=== PATIENT | male | born 1940 | race Caucasian/White ===

== ENCOUNTER 2020-06-09 07:17 | Emergency (ER) | payer MEDICARE, SELFPAY ==
--- NOTE | 2020-06-09 07:30 | US_ITS ---
EXAMINATION: US VENOUS ULTRASOUND WITH DOPPLER LOWER EXTREMITY, LEFT CLINICAL INFORMATION: Pain and swelling left lower extremity. Assess for occult DVT COMPARISON: None TECHNIQUE: Ultrasound of the deep veins is performed from the hip to the calf with compression sonography and color and pulse Doppler assessment. Spectral analysis with color-flow imaging is performed. FINDINGS: There is normal venous compression and respiratory variation and augmented flow. The visualized common femoral vein, superficial femoral vein, profunda femoral vein, popliteal vein, and the trifurcation region shows no evidence of deep venous thrombosis. No popliteal fossa cyst demonstrated. IMPRESSION: No DVT demonstrated in the left lower extremity.
--- NOTE | 2020-06-09 07:30 | XR_ITS ---
EXAMINATION: XR TIBIA AND FIBULA, RIGHT CLINICAL INFORMATION: Painful bump on chin. COMPARISON: None TECHNIQUE: AP and lateral views of the right tibia and fibula were obtained. FINDINGS: There is no acute or healing fracture, dislocation, or destructive process. No focal bony exostosis or periostitis. Hoffa's fat pad appears normal. No knee joint compartment narrowing. There is benign calcification in region of proximal medial collateral ligament and also lesser calcifications in region of lateral collateral ligament which may be related to remote prior ligament injury (Brad Stieda). There is punctate calcification in region of distal patellar tendon. The deep infrapatellar recess is preserved. The visualized ankle and subtalar joints are unremarkable. There are atherosclerotic calcifications vasculature. No gas tracking in soft tissue planes. IMPRESSION: 1. No acute or healing fracture, destructive process, or periostitis. No gas tracking in soft tissues. 2. Benign calcifications in region of medial and lateral collateral ligaments which may be related to remote injury. Punctate calcification in region of distal patellar tendon. 3. Atherosclerotic calcifications vasculature.
--- NOTE | 2020-06-09 07:30 | ED.GENADULT ---
HPI - General Adult General Chief complaint: General Medical Stated complaint: leg lump Time Seen by Provider: 06/09/20 07:30 Source: patient Mode of arrival: ambulatory Limitations: no limitations History of Present Illness HPI narrative: 79 yo male on plavix - bumped leg on boat 3 weeks ago since then painful bump persists on LLE, RLE bump on anterior varela for months MD complaint: bump on left leg x 3 weeks Onset (ago): week(s) (3) Location: lower extremity Radiation: non-radiation Severity: mild Quality: aching Pain Consistency: constant Relieving factors: none Exacerbating factors: none Associated symptoms: denies other symptoms Treatments prior to arrival: none Related Data Allergies Allergy/AdvReac Type Severity Reaction Status Date / Time No Known Allergies Allergy Unverified 05/07/20 17:05 [No Known Allergies*] Review of Systems Review of Systems: Constitutional : No Fever, No Chills ENT/Mouth : No sore throat, No Rhinorrhea Eyes: No Eye Pain, No Swelling, No Redness Cardiovascular : No Chest Pain, No SOB, Respiratory : No Cough, No Sputum, No Wheezing Gastrointestinal : No Nausea, No Vomiting, No Diarrhea Genitourinary : No Dysuria, No Urinary Frequency, No Hematuria, Musculoskeletal : No joint pain, No Myalgias, No Joint Swelling Skin : positive Skin Lesions, No rash Neuro : No Weakness, No Numbness, No Dizziness, No Headache Psych : No Anxiety/Panic, No Depression All other systems reviewed and are negative PMFSH Past Medical History Medical History COPD (chronic obstructive pulmonary disease) HTN (hypertension) Hyperlipemia PVD (peripheral vascular disease) Social History Social History (Updated 06/09/20 @ 07:30 by Yari Guerrero DO) Smoking Status: Current every day smoker Use of substances other than those prescribed or required for medical reasons: No Advance Directives: No Advance Directives Information Provided: No Physical Exam Vital Signs: Vital Signs: Vital Signs Temp Pulse Resp BP Pulse Ox 06/09/20 07:36 98.7 F 79 18 156/79 H 96 Body Mass Index 28.3 Appearance: Alert. Oriented X3. No acute distress. Eyes: Pupils equal, round and reactive to light. ENT: Pharynx normal. Neck: Normal inspection. Neck supple. CVS: Normal heart rate and rhythm. Pulses normal. Respiratory: No respiratory distress. Breath sounds normal. Abdomen: Soft and nontender. Skin: Skin warm and dry. Normal skin color. Normal skin turgor. Extremities: No lower extremity edema. R anterior varela small 1 cm firm lesion noted proximal, L lateral leg anterior 2cm soft bump noted with no overlying signs of infection, distal NV intact Neuro: Oriented X 3. No motor deficit. No sensory deficit. Course Course Course Narrative: no acute findings, stable for DC will treat as hematoma and apply ivan wrap and refer to PCP Medical Decision Making MDM Narrative Medical decision making narrative: 79 yo male on plavix for PVD here with 3 weeks painful bump on left lateral calf s/p hitting it on boat - no signs of infection, small 2cm area noted - no erythema/warmth/drainage, distal NV intact, hard lesion as well on R anterior varela - xray ordered for R varela, US of LLE ordered for DVT Discharge Plan Discharge Clinical Impression: Hematoma Patient Disposition: Home, Self-Care Instructions: Hematoma (ED) Additional Instructions: apply ivan wrap to LLE x 1 week Referrals: Yamilet Kee NP [Primary Care Provider] - 2 days (if not better)
[2020-06-09 07:36] VITALS: BP 156/79; PULSE 79; RESP 18; TEMP 37.1; O2SAT 96; BMI 28.3
== END 2020-06-09 09:29 | disposition home or self-care (01) ==
PROVIDERS: Emergency Provider Emergency Medicine; PCP Nurse Practitioner
DX: S80.12XA Contusion of left lower leg, initial encounter (principal); M79.605 Pain in left leg; W22.8XXA Striking against or struck by other objects, initial encounter; I10 Essential (primary) hypertension; Y93.89 Activity, other specified; Y92.814 Boat as the place of occurrence of the external cause; Y99.9 Unspecified external cause status; Z79.01 Long term (current) use of anticoagulants; F17.200 Nicotine dependence, unspecified, uncomplicated
CPT/HCPCS: 73590; 93971; 99284

== ENCOUNTER 2020-10-05 13:51 | Outpatient (REF) | payer MEDICARE, SELFPAY ==
--- NOTE | ~2020-10-05 | US_ITS ---
EXAMINATION: ANKLE-BRACHIAL INDICES SINGLE LEVEL PULSE VOLUME RECORDING ARTERIAL DUPLEX BILATERAL LEGS CLINICAL INFORMATION: PVD. COMPARISON: None TECHNIQUE: Ankle-brachial indices and PVR at the ankle were obtained. Duplex Doppler of the bilateral lower extremity arterial systems was performed. FINDINGS: RIGHT: Ankle-brachial index: 1.22 PVR: Mildly abnormal. Common femoral: PSV 185 cm/s. Triphasic waveform. Deep femoral: PSV 153 cm/s. Biphasic waveform. Proximal superficial femoral: PSV 164 cm/s. Triphasic waveform. Mid superficial femoral: PSV 96 cm/s. Triphasic waveform. Distal superficial femoral: PSV 139 cm/s. Triphasic waveform. Popliteal: PSV 281 cm/s. Triphasic waveform. Moderate calcified plaque proximally. Posterior tibial artery: PSV 96 cm/s. Triphasic waveform. LEFT: Ankle-brachial index: 1.19 PVR: Mildly abnormal. Common femoral: PSV 135 cm/s. Triphasic waveform. Deep femoral: PSV 204 cm/s. Biphasic waveform. Proximal superficial femoral: PSV 92 cm/s. Triphasic waveform. Mid superficial femoral: PSV 119 cm/s. Triphasic waveform. Distal superficial femoral: PSV 131 cm/s. Triphasic waveform. Popliteal: PSV 115 cm/s. Triphasic waveform. Posterior tibial artery: PSV 110 cm/s. Triphasic waveform. US/US arterial duplex LE BI IMPRESSION: No evidence of hemodynamically significant peripheral arterial disease at rest with ankle-brachial indices 1.22 on the right and 1.19 on the left. The Doppler shows a moderate right proximal popliteal artery stenosis that appears well collateralized.
--- NOTE | ~2020-10-05 | US_ITS ---
EXAMINATION: ANKLE-BRACHIAL INDICES SINGLE LEVEL PULSE VOLUME RECORDING ARTERIAL DUPLEX BILATERAL LEGS CLINICAL INFORMATION: PVD. COMPARISON: None TECHNIQUE: Ankle-brachial indices and PVR at the ankle were obtained. Duplex Doppler of the bilateral lower extremity arterial systems was performed. FINDINGS: RIGHT: Ankle-brachial index: 1.22 PVR: Mildly abnormal. Common femoral: PSV 185 cm/s. Triphasic waveform. Deep femoral: PSV 153 cm/s. Biphasic waveform. Proximal superficial femoral: PSV 164 cm/s. Triphasic waveform. Mid superficial femoral: PSV 96 cm/s. Triphasic waveform. Distal superficial femoral: PSV 139 cm/s. Triphasic waveform. Popliteal: PSV 281 cm/s. Triphasic waveform. Moderate calcified plaque proximally. Posterior tibial artery: PSV 96 cm/s. Triphasic waveform. LEFT: Ankle-brachial index: 1.19 PVR: Mildly abnormal. Common femoral: PSV 135 cm/s. Triphasic waveform. Deep femoral: PSV 204 cm/s. Biphasic waveform. Proximal superficial femoral: PSV 92 cm/s. Triphasic waveform. Mid superficial femoral: PSV 119 cm/s. Triphasic waveform. Distal superficial femoral: PSV 131 cm/s. Triphasic waveform. Popliteal: PSV 115 cm/s. Triphasic waveform. Posterior tibial artery: PSV 110 cm/s. Triphasic waveform. US/US ALFONSO complete IMPRESSION: No evidence of hemodynamically significant peripheral arterial disease at rest with ankle-brachial indices 1.22 on the right and 1.19 on the left. The Doppler shows a moderate right proximal popliteal artery stenosis that appears well collateralized.
== END 2020-10-05 13:52 | disposition home or self-care (01) ==
LOC: HO.US 13:51
PROVIDERS: Visit Provider Surgery Vascular Surgery
DX: I73.9 Peripheral vascular disease, unspecified (principal)
CPT/HCPCS: 93923; 93925

== ENCOUNTER 2020-11-25 07:54 | Outpatient (REF) | payer MEDICARE, SELFPAY ==
--- NOTE | ~2020-11-25 | XR_ITS ---
EXAMINATION: XR BILATERAL HIPS WITH AP PELVIS CLINICAL INFORMATION: Acute lower back pain and hip pain. COMPARISON: None TECHNIQUE: AP and frog-leg lateral views of each hip and an AP view of the pelvis. FINDINGS: There are bilateral total hip arthroplasties. The femoral head components articulate appropriately with the acetabular components. There is some ossification without full bridging seen between the left femoral intertrochanteric and the superior acetabular margin. The pelvic rim is intact. Partial fusion across the sacroiliac joints with sclerosis. The pubic symphysis is well aligned. Surgical clips overlie the pelvis. Evidence of prior hernia repair of the ventral abdomen. 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 Partial fusion of the sacroiliac joints.
--- NOTE | ~2020-11-25 | XR_ITS ---
EXAMINATION: XR LUMBOSACRAL SPINE CLINICAL INFORMATION: Acute lower back pain. COMPARISON: None TECHNIQUE: Three views of the lumbosacral spine. FINDINGS: Scoliotic curvature of the spine. No acute fracture or subluxation. Grade 1 retrolisthesis of L1 on L2, L2 on L3, and L3 on L4. Diffuse disc space narrowing with endplate sclerosis and osteophyte formation. Mild facet arthropathy. The bowel gas pattern is unremarkable. XR/XR lumbar spine 2-3V IMPRESSION: Moderate degenerative changes of the lumbar spine.
== END 2020-11-25 07:55 | disposition home or self-care (01) ==
LOC: HO.XRAY 07:54
PROVIDERS: PCP Nurse Practitioner; Visit Provider Nurse Practitioner
DX: M54.5 Low back pain (principal); M25.552 Pain in left hip; M25.551 Pain in right hip
CPT/HCPCS: 72100; 73522

== ENCOUNTER → 2021-03-18 11:29 | Outpatient (BNVA) | payer MEDICARE, SELFPAY | PROVIDERS: PCP Internal Medicine; Visit Provider Surgery Vascular Surgery | DX: I73.9 Peripheral vascular disease, unspecified (principal) | CPT/HCPCS: 99212 ==

== ENCOUNTER 2021-03-26 07:42 | Outpatient (REF) | payer MEDICARE, SELFPAY ==
[2021-03-26 08:33] LABS: Hematocrit 38.2 % (42-52); Mean Corpuscular HGB Conc 36.6 g/dl (31.0-36.0); Mean Corpuscular Hemoglobin 30.8 pg (27.0-33.0); Platelet Count 205 X10*3/uL (160-400); Red Blood Count 4.55 X10*6/uL (4.60-5.80); Red Cell Distribution Width 12.3 % (11.0-16.0); White Blood Count 5.6 X10*3/uL (4.8-10.8)
[2021-03-26 08:37] LABS: Glucose Urine UA NEG (NEG); Leukocyte Esterase Urine NEG (NEG); Nitrite Urine NEG (NEG); Urine Blood NEG (NEG); Urine Ketones NEG (NEG); Urine Protein TRACE MG/DL (NEG-TRACE)
[2021-03-26 08:38] LABS: Appearance Urine CLEAR; Color Urine YELLOW
[2021-03-26 09:00] LABS: Alanine Aminotransferase 30 U/L (0-40); Albumin Level 4.4 g/dL (3.5-5.0); Alkaline Phosphatase 83 U/L (39-117); Anion Gap 14 (12-20); Aspartate Amino Transferase 22 U/L (5-37); Bilirubin Direct 0.5 mg/dL (0.0-0.5); Bilirubin Total 1.3 mg/dL (0.0-1.0); Blood Urea Nitrogen 10 mg/dL (9-16); Calcium 9.7 mg/dL (8.4-10.2); Carbon Dioxide 24 mmol/L (22-29); Chloride 99 mmol/L (96-108); Cholesterol 158 mg/dL; Estimated Glomerular Filt Rate > 60; Glucose Random 152 mg/dL (60-115); HDL Cholesterol 48 mg/dL; LDL Cholesterol Calculated 75 mg/dl; Potassium 4.1 mmol/L (3.3-5.1); Sodium 133 mmol/L (135-145); Total Protein 7.2 g/dL (6.5-8.0); Triglycerides 179 mg/dL
[2021-03-26 09:26] LABS: Prostate Specific Antigen Scr < 0.05 ng/mL (<0.05-4.0); Thyroid Stimulating Hormone 2.38 uIU/mL (0.32-4.0)
== END 2021-03-26 07:43 | disposition home or self-care (01) ==
LOC: HO.LAB 07:42
PROVIDERS: PCP Internal Medicine; Visit Provider Internal Medicine
DX: Z12.5 Encounter for screening for malignant neoplasm of prostate (principal); C61 Malignant neoplasm of prostate; I10 Essential (primary) hypertension
CPT/HCPCS: 36415; 80048; 80061; 80076; 81003; 84153; 84443; 85027

== ENCOUNTER 2021-11-20 09:57 | Inpatient (IN) | payer OTHER, SELFPAY ==
[2021-11-20] VITALS (9 sets, daily range): BP systolic 122–175; BP diastolic 69–75; PULSE 75–90; RESP 12–22; TEMP 36.6; O2SAT 91–99; BMI 29.1; BMI 27.6
--- NOTE | ~2021-11-20 | CT_ITS ---
EXAMINATION: CT ANGIOGRAM OF THE HEAD CT ANGIOGRAM OF THE NECK CLINICAL INFORMATION: Left facial weakness, left lower extremity tingling. COMPARISON: Concurrent CT scan of the head 11/20/2021. TECHNIQUE: Test bolus series followed by intravenous administration 70 mL of Omnipaque 350. Helical imaging was performed in the axial plane from the mediastinum to the skull vertex. A delayed CT scan of the head was obtained. The degree of stenosis is based off NASCET criteria. The data was processed at the manufacturing technologist workstation for generation of MIP images. Three-dimensional volume rendered reformatted images were also generated at an offline 3-D workstation. This CT examination was performed using dose optimization techniques as appropriate, variously including the following: *Automated exposure control *Adjustment of mA and/or kV according to patient size (this includes techniques or standardized protocols for targeted exams where dose is matched to indication/reason for exam; i.e. extremities or head) *Use of iterative reconstruction technique DLP: 1626 mGy-cm. FINDINGS: CT Head: There is no evidence of acute intracranial hemorrhage or territorial infarction. No abnormal mass-effect or midline shift is seen. Yu to white matter differentiation is well preserved. No extra-axial fluid collections are identified. There is no abnormal enhancement. There is mild commensurate prominence of the ventricles and sulci consistent with diffuse volume loss. There are mild chronic microvascular ischemic changes. There have been bilateral lens extractions. There are severe degenerative changes of the right temporomandibular joint. There is mucoperiosteal thickening of the bilateral maxillary sinuses, bilateral ethmoid air cells and the left frontal sinus. Plate and screws are noted along the left anterior maxilla. There are no acute osseous findings. The mastoid air cells are well-aerated. CTA Neck: There is a classic configuration of the aortic arch. There are atheromatous calcifications of the aortic arch, and at the origins of the great vessels of the neck. There is approximately 50% stenosis at the origin of the left subclavian artery. There are moderate atheromatous calcifications at the right subclavian artery. There are atheromatous calcifications around the left common carotid artery. There are no significant atheromatous calcifications of the carotid bifurcations. The cervical internal carotid arteries are patent bilaterally. The origins of the vertebral arteries are well-demonstrated bilaterally. There are atheromatous calcifications at the origin of the right vertebral artery. There are also calcifications around the cervical right vertebral artery. The right vertebral artery is dominant. Both vertebral arteries are patent throughout their cervical course extending intradurally. Nonvascular: The visualized lung apices are well-aerated. The thyroid gland appears normal. There is no cervical lymphadenopathy. There is mild increased attenuation and soft tissue fullness in the subcutaneous fat in the left submandibular region. There are moderate spondylitic and facet arthropathic changes in the cervical spine. There is a moderate degenerative anterolisthesis of C7 on T1. CTA Head: There are atheromatous calcifications of the cavernous and paraclinoid internal carotid arteries bilaterally, but the vessels are patent. The middle and anterior cerebral arteries bilaterally demonstrate normal caliber with no evidence of focal stenosis, aneurysm or vascular malformation. There is normal arborization of the middle cerebral artery branches. The anterior communicating artery is normal. In the posterior circulation, the right vertebral artery is dominant. There are mild atheromatous calcifications of the proximal and distal intradural right vertebral artery. The left vertebral artery ends primarily in the PICA. The basilar artery and the posterior cerebral arteries are patent. The venous sinuses opacify normally. CT/CT angio head neck stroke IMPRESSION: 1. There are no acute bleeds or territorial infarcts. There are no masses or areas of abnormal enhancement. 2. There is diffuse loss with chronic microvascular ischemic changes. 3. There is relatively extensive paranasal sinus disease. There is some soft tissue fullness with increased attenuation in the subcutaneous fat in the left submandibular region; correlate clinically. 4. There are atherosclerotic calcifications of the aortic arch and great vessels of the neck, without significant flow-limiting stenosis. 5. Intracranially there are no focal stenoses, aneurysms or vascular malformations. This critical result was discussed with Dr. Guerrero by telephone on 11/20/2021 at 12:49 PM and it was ascertained that the content and urgency of the report was understood at the time of direct communication.
--- NOTE | ~2021-11-20 | XR_ITS ---
EXAMINATION: XR CHEST CLINICAL INFORMATION: Left-sided weakness COMPARISON: None TECHNIQUE: Frontal view of the chest was obtained. FINDINGS: Cardiac silhouette is normal in size. Atherosclerotic disease of the aortic arch. The lungs are mildly hypoinflated. There is no lobar consolidation. No pleural effusion or pneumothorax. Small lobulated density within the lateral right upper/mid lung is nonspecific but possibly a cluster of granulomas. XR/XR chest 1V IMPRESSION: No acute pulmonary pathology.
--- NOTE | ~2021-11-20 | CT_ITS ---
EXAMINATION: CT HEAD WITHOUT CONTRAST (STROKE PROTOCOL) CLINICAL INFORMATION: Stroke protocol. Left facial droop COMPARISON: None TECHNIQUE: Contiguous axial imaging was performed from the skull base to vertex without intravenous administration of contrast. This CT examination was performed using dose optimization techniques as appropriate, variously including the following: *Automated exposure control *Adjustment of mA and/or kV according to patient size (this includes techniques or standardized protocols for targeted exams where dose is matched to indication/reason for exam; i.e. extremities or head) *Use of iterative reconstruction technique DLP: 781 mGy-cm FINDINGS: No intra-axial or extra-axial hemorrhage. No acute territorial infarct. Mild chronic small vessel ischemic disease of the periventricular white matter. Preservation of valente-white matter differentiation. No mass, mass effect, or midline shift. No fracture. Fracture fixation of the anterior left maxillary sinus which is nearly completely opacified. Partial opacification of the left ethmoid air cells and mucosal thickening of the right maxillary sinus. The mastoid air cells and visualized paranasal sinuses are otherwise clear. This critical result was discussed with FABI Guidry at 10:52 AM on 11/20/2021 and it was ascertained that the content and urgency of the report was understood at the time of direct communication. CT/CT head for stroke IMPRESSION: No acute intracranial pathology.
--- NOTE | 2021-11-20 10:23 | ECG_ITS ---
Test Reason : DIZZINESS Blood Pressure : / mmHG Vent. Rate : 073 BPM Atrial Rate : 073 BPM P-R Int : 244 ms QRS Dur : 092 ms QT Int : 392 ms P-R-T Axes : 023 007 031 degrees QTc Int : 431 ms Sinus rhythm with 1st degree A-V block Nonspecific T wave abnormality Abnormal ECG No previous ECGs available Referred By: Cee Dallas Electronically Signed By:BRETT BURKETT
--- NOTE | 2021-11-20 10:30 | ED_ITS ---
HPI - Neuro Symptoms/Deficit General Chief Complaint: Neuro Symptoms/Deficit Stated Complaint: facial swelling Time Seen by Provider: 11/20/21 10:13 Source: patient and family (Son at bedside) Mode of arrival: ambulatory Limitations: no limitations History of Present Illness HPI Narrative: 81-year-old male with a past medical history type 2 diabetes, hypertension, hyperlipidemia who had a DVT in the right lower extremity currently on Plavix last took this morning, COPD, prostate cancer in PVD presenting to the ED with son at bedside with complaints of left-sided cheek/chin swelling/droop that the son noticed that 9-930 a.m. this morning when he was having coffee with his father. Although he is unsure when this actually started and the patient is a poor historian he is unsure when this actually started as well. Son reports that his father has been suffering from memory issues for the past few weeks to months. Although patient reports when he woke up this morning he cannot confirm what time he woke up although when he woke up this morning he has some left leg tingling he reports. He reports that he has also been suffering from intermittent dizziness over the past few weeks to months it is not worse today per the patient. Although he is reporting some nausea that started today. His son reports that the patient lives with his girlfriend. Son reports that he did speak to the father last night although over the phone he did not see him. He reports that if the girlfriend with a seen the facial swelling/droop last night then he believes he would been told that he is not certain when this actually started. He denies any recent falls, head trauma, headaches, neck pain/stiffness, changes in vision, changes in speech, weakness the any extremities, rashes, palpitations, chest pain, shortness of breath, dyspnea on exertion, orthopnea, vomiting, diarrhea, constipation, abdominal pain, recent travel or sick contacts or any other symptoms complaints or concerns at this time. Onset (ago): unknown Timing confirmed by: family member (Son at bedside) Location: left face and left leg History of same: No Severity: mild Quality: tingling and constant Relieving factors: none Exacerbating factors: none Context: other (Patient uncertain when this actually started) Related Data Home Medications Medication Instructions Recorded Confirmed aspirin 81 mg tablet,delayed 81 mg PO DAILY 03/16/21 11/20/21 release (Adult Low Dose Aspirin) atorvastatin 20 mg tablet 20 mg PO DAILY tab 03/16/21 11/20/21 umeclidinium 62.5 mcg-vilanterol 1 inh PO DAILY 03/16/21 11/20/21 25 mcg/actuation powdr for inhalation amlodipine 10 mg tablet 10 mg PO BEDTIME 11/20/21 11/20/21 citalopram 20 mg tablet 40 mg PO BEDTIME 11/20/21 11/20/21 lisinopril 20 1 tab PO DAILY 11/20/21 11/20/21 mg-hydrochlorothiazide 25 mg tablet Previous Rx's Medication Instructions Recorded pantoprazole 40 mg tablet,delayed 40 mg PO DAILY #90 tab 06/22/21 release trazodone 100 mg tablet 100 mg PO BEDTIME #90 tab 08/24/21 clopidogrel 75 mg tablet 75 mg PO DAILY #90 tab 09/12/21 Allergies Allergy/AdvReac Type Severity Reaction Status Date / Time No Known Allergies Allergy Verified 07/01/21 08:17 [No Known Allergies*] Review of Systems Review of Systems: Constitutional : No Fever, No Chills, No Night Sweats, No Fatigue, No Malaise ENT/Mouth : No Ear Pain, No Nasal Congestion, No Sinus Pain, No sore throat, No Rhinorrhea Eyes: No Eye Pain, No Swelling, No Redness, No Foreign Body, No Discharge, No Vision Changes Cardiovascular : No Chest Pain, No SOB, No Dyspnea on Exertion, No Orthopnea, No Palpitations Respiratory : No Cough, No Sputum, No Wheezing, No Dyspnea Gastrointestinal : + Nausea, No Vomiting, No Diarrhea, No Constipation, No abdom inal Pain, No Hematochezia, No Melena Genitourinary : No Dysuria, No Urinary Frequency, No Urinary Incontinence, No Urgency, No Flank Pain Musculoskeletal : No joint pain, No Myalgias Skin : No lacerations Neuro : + left lowewr leg tingling, + left sided facial weakness, + Dizziness, No Loss of Consciousness, No Headache Yes all other systems are reviewed and are negative [facility] Past Medical History Attestation statement: The following information was validated with the patient. Medical History COPD (chronic obstructive pulmonary disease) Essential hypertension HTN (hypertension) Hyperlipemia Prostate cancer PVD (peripheral vascular disease) Type 2 diabetes mellitus without complications Surgical History History of cataract surgery History of facial surgery History of hernia surgery History of hip replacement History of inguinal hernia repair History of knee surgery Family History Family History Mother No problems noted. Father No problems noted. Social History Social History Housing: Apartment Alcohol intake: never Patient Tobacco Use Status: Current everyday Tobacco user Tobacco use type: Cigarette Cigarette Packs Per Day: 0.5 Cigarettes Per Day: 10 e-Cigarette/Vaping Use: Never Used Use of substances other than those prescribed or required for medical reasons: No Advance Directives: Yes Advance Directives Information Provided: Yes Advance Directives on File: No service: Yes ( [email or web address]) Current occupational status: retired Physical Exam Vital Signs: Vital Signs: Last Vital Signs Temp 97.9 F 11/20/21 10:03 Pulse 75 11/20/21 15:47 Resp 22 H 11/20/21 11:12 BP 172/75 H 11/20/21 15:47 Pulse Ox 97 11/20/21 15:47 BMI result Body Mass Index 29.1 Vital signs have been reviewed as normal and appeared to be correct. Blood pressure 175/75. Heart rate normal. Respiration rate normal. Temperature normal. Oxygen saturation normal. Appearance: Alert. Oriented X3. No acute distress. Head: Normal external exam. Normocephalic. Atraumatic. Able to rotate head bilaterally. Eyes: PERRLA. EOMI. No nystagmus noted. Conjunctiva and sclera normal. Eyelids normal. Corneal reflex normal. ENT: EAC normal. TM's Normal. Hearing normal. Pharynx normal. Uvula midline. tongue midline. Moist mucous membranes. No trismus noted. No drooling noted. No muffled voice noted. No nystagmus noted. Neck: Normal inspection. Neck supple. FROM. No adenopathy. Trachea midline. Thyroid Normal. No meningeal signs. No neck mass noted. CVS: Normal heart rate and rhythm. Heart sound normal. No murmurs noted. Pulses normal throughout. Respiratory: No respiratory distress. Painless inspiration. Breath sounds normal. No wheezes/rales/rhonchi noted. Chest nontender. No accessory muscle usage noted or decreased air movement noted. Abdomen: Soft and nontender. Bowel sounds normal in all 4 quadrants. No distention noted. No organomegaly noted. No visible injury noted. Back: No CVA tenderness. Full range of motion noted. Skin: Skin warm and dry. Normal skin color. Normal skin turgor. No rashe s/lesions/lacerations noted. Extremities: No lower extremity edema. Extremities exhibit normal range of motion. Extremities nontender. Able to shrug shoulders bilaterally and keep up against resistance. Neuro: Oriented X 3. 4/5 for motor to left upper and left lower extremity. No sensory deficit. Reflexes normal. Moving all extremities. left sided facial droop and mild sts swelling to left maxillary/mandible area NO lip swelling noted. Otherwise the rest of the Cranial nerves II-XI intact bilaterally. Normal cognition. Speech normal. Gait normal. No pronator drift. Patient noted to have a mild tremor to b/l hands tremor noted. No fasciculations noted. No rigidity noted. Muscle tone normal throughout. No asterixis noted. [id number] test normal. Heel to varela test normal. Tandem gait normal. Does not sway with eyes open. Romberg test negative. Rapid alternating movement upper extremity normal. Rapid alternating movement lower extremity normal. Hand drop from overhead Misses face. NIHSS score 3. Course Course Course Narrative: 10:25am - 81-year-old male with a past medical history type 2 diabetes, hypertension, hyperlipidemia who had a DVT in the right lower extremity currently on Plavix last took this morning, COPD, prostate cancer in PVD presenting to the ED with son at bedside with complaints of left-sided cheek/chin swelling/droop that the son noticed that 9-930 a.m. this morning when he was having coffee with his father. Although he is unsure when this actually started and the patient is a poor historian he is unsure when this actually started as well. Son reports that his father has been suffering from memory issues for the past few weeks to months. Although patient reports when he woke up this morning he cannot confirm what time he woke up although when he woke up this morning he has some left leg tingling he reports. He reports that he has also been suffering from intermittent dizziness over the past few weeks to months it is not worse today p er the patient. Although he is reporting some nausea that started today. His son reports that the patient lives with his girlfriend. Son reports that he did speak to the father last night although over the phone he did not see him. He reports that if the girlfriend with a seen the facial swelling/droop last night then he believes he would been told that he is not certain when this actually started. On exam patient is alert and orientated x3. Not in any acute distress. He does have some mild left-sided facial drooping. And 4/5 for motor of left upper extremity and left lower extremity. He reports tingling sensation to the left lower extremity although normal sensation on all 4 extremities. Otherwise no other focal weakness is noted. He has a normal steady gait. He was able to u ndress himself completely in the room by himself without any help. No other disabling symptoms. NIH SS score 3. He took Plavix this morning. We do not know the onset of time and patient is a very poor historian and son cannot tell us and actual time either therefore he is not a candidate for tPA at this time. Plan: Stroke protocol including labs, CT scan of brain without contrast, CT of head and neck with contrast and re-evaluate. Reevaluation(s) Reevaluation #1: - I was called from [facility] and they reported that the CT scan of the brain without contrast is negative at this time. Awaiting CTA of head and neck. - labs reviewed patient with mild baseline anemia. Otherwise troponin is negative PT INR within a normal range. Sodium 127 although patient has been low in the past he is on 2-3 medications that could possibly cause hyponatremia. Random glucose 132. ALT 41. Otherwise all other labs are within normal limits. Time: 10:51 Reevaluation #2: - CT angio of head and neck revealed chronic changes no acute bleeds there are no masses or any other acute processes everything appeared chronic. 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 - when I went back to evaluate the patient his son noticed that he had some upper lip swelling that was not present when he arrived here he only had soft tissue swelling to the left maxillary/chin area there was no swelling near any upper or lower lips therefore he is developing some angioedema from possibly the IV contrast that was given therefore we are going to medicate him with 50 mg of Benadryl, 125 mg of IV Solu-Medrol and Pepcid IV and plan to admit for left- sided weakness and hyponatremia. Speaking to Dr. Gupta at this time. Time: 13:09 [facility] - Neuro Symptoms/Deficit Medical Records Attestation: I reviewed the patient's medical records. Lab Data Attestation: I reviewed the patient's lab results. Result diagrams: 11/20/21 10:25 11/20/21 10:25 Labs: Lab Results 11/20/21 11/20/21 11/20/21 Range/Units 10:25 10:25 10:25 WBC 7.0 (4.8-10.8) X10*3/uL RBC 4.50 L (4.60-5.80) X10*6/uL Hgb 13.6 L (14.0-18.0) g/dl Hct 37.1 L (42.0-52.0) % MCV 82.4 (80.0-98.0) fL MCH 30.2 (27.0-33.0) pg MCHC 36.7 H (31.0-36.0) g/dl RDW 12.1 (11.0-16.0) % Plt Count 216 (160-400) X10*3/uL MPV 8.8 L (9.4-12.4) fL Immature Gran % (Auto) 0.9 H (0.0-0.4) % Neut % (Auto) 67.9 (45-73) % Lymph % (Auto) 18.6 L (20-40) % Esmeralda % (Auto) 9.8 (2-11) % Eos % (Auto) 1.7 (0-4) % Baso % (Auto) 1.1 (0-2) % Lymph # (Auto) 1.3 (1.2-4.9) X10*3/uL Esmeralda # (Auto) 0.7 (0.1-1.2) X10*3/uL Eos # (Auto) 0.1 (0.0-0.4) X10*3/uL Baso # (Auto) 0.1 (0.0-0.2) X10*3/uL Abs Immat Gran (auto) 0.06 H (0.00-0.03) X10*3/uL Absolute Neuts (auto) 4.8 (2.0-8.3) x10*3/uL Absolute Nucleated RBC 0.000 (0.0-0.012) X10*3/uL Nucleated RBC % (auto) 0.0 (0.0-0.2) /100WBC PT 10.8 (9.9-13.0) SEC INR 1.0 (0.9-1.1) APTT 31.1 (24.1-38.0) SEC Sodium 127 L (135-145) mmol/L Potassium 4.0 (3.3-5.1) mmol/L Chloride 92 L (96-108) mmol/L Carbon Dioxide 23 (22-29) mmol/L Anion Gap 16 (12-20) BUN 10 (9-16) mg/dL Creatinine 0.85 (0.5-1.4) mg/dL Estim Creat Clear Calc 60.6 Estimated GFR > 60 POC Glucose (60-115) mg/dL Random Glucose 147 H (60-115) mg/dL Calcium 9.7 (8.4-10.2) mg/dL Magnesium 1.6 (1.6-2.6) mg/dL Total Bilirubin 1.0 (0.0-1.0) mg/dL Direct Bilirubin 0.4 (0.0-0.5) mg/dL AST 29 (5-37) U/L ALT 41 H (0-40) U/L Alkaline Phosphatase 86 (39-117) U/L Troponin I High Sens (<3.5-35.0) ng/L Total Protein 7.6 (6.5-8.0) g/dL Albumin 4.6 (3.5-5.0) g/dL Hold Red Top COVID-19 ([facility]) (Negative) COVID-19 Clin Com 11/20/21 11/20/21 11/20/21 Range/Units 10:25 10:26 10:53 WBC (4.8-10.8) X10*3/uL RBC (4.60-5.80) X10*6/uL Hgb (14.0-18.0) g/dl Hct (42.0-52.0) % MCV (80.0-98.0) fL MCH (27.0-33.0) pg MCHC (31.0-36.0) g/dl RDW (11.0-16.0) % Plt Count (160-400) X10*3/uL MPV (9.4-12.4) fL Immature Gran % (Auto) (0.0-0.4) % Neut % (Auto) (45-73) % Lymph % (Auto) (20-40) % Esmeralda % (Auto) (2-11) % Eos % (Auto) (0-4) % Baso % (Auto) (0-2) % Lymph # (Auto) (1.2-4.9) X10*3/uL Esmeralda # (Auto) (0.1-1.2) X10*3/uL Eos # (Auto) (0.0-0.4) X10*3/uL Baso # (Auto) (0.0-0.2) X10*3/uL Abs Immat Gran (auto) (0.00-0.03) X10*3/uL Absolute Neuts (auto) (2.0-8.3) x10*3/uL Absolute Nucleated RBC (0.0-0.012) X10*3/uL Nucleated RBC % (auto) (0.0-0.2) /100WBC PT (9.9-13.0) SEC INR (0.9-1.1) APTT (24.1-38.0) SEC Sodium (135-145) mmol/L Potassium (3.3-5.1) mmol/L Chloride (96-108) mmol/L Carbon Dioxide (22-29) mmol/L Anion Gap (12-20) BUN (9-16) mg/dL Creatinine (0.5-1.4) mg/dL Estim Creat Clear Calc Estimated GFR POC Glucose 132 H (60-115) mg/dL Random Glucose (60-115) mg/dL Calcium (8.4-10.2) mg/dL Magnesium (1.6-2.6) mg/dL Total Bilirubin (0.0-1.0) mg/dL Direct Bilirubin (0.0-0.5) mg/dL AST (5-37) U/L ALT (0-40) U/L Alkaline Phosphatase (39-117) U/L Troponin I High Sens < 3.5 (<3.5-35.0) ng/L Total Protein (6.5-8.0) g/dL Albumin (3.5-5.0) g/dL Hold Red Top See Note COVID-19 ([facility]) (Negative) COVID-19 Clin Com 11/20/21 Range/Units 11:11 WBC (4.8-10.8) X10*3/uL RBC (4.60-5.80) X10*6/uL Hgb (14.0-18.0) g/dl Hct (42.0-52.0) % MCV (80.0-98.0) fL MCH (27.0-33.0) pg MCHC (31.0-36.0) g/dl RDW (11.0-16.0) % Plt Count (160-400) X10*3/uL MPV (9.4-12.4) fL Immature Gran % (Auto) (0.0-0.4) % Neut % (Auto) (45-73) % Lymph % (Auto) (20-40) % Esmeralda % (Auto) (2-11) % Eos % (Auto) (0-4) % Baso % (Auto) (0-2) % Lymph # (Auto) (1.2-4.9) X10*3/uL Esmeralda # (Auto) (0.1-1.2) X10*3/uL Eos # (Auto) (0.0-0.4) X10*3/uL Baso # (Auto) (0.0-0.2) X10*3/uL Abs Immat Gran (auto) (0.00-0.03) X10*3/uL Absolute Neuts (auto) (2.0-8.3) x10*3/uL Absolute Nucleated RBC (0.0-0.012) X10*3/uL Nucleated RBC % (auto) (0.0-0.2) /100WBC PT (9.9-13.0) SEC INR (0.9-1.1) APTT (24.1-38.0) SEC Sodium (135-145) mmol/L Potassium (3.3-5.1) mmol/L Chloride (96-108) mmol/L Carbon Dioxide (22-29) mmol/L Anion Gap (12-20) BUN (9-16) mg/dL Creatinine (0.5-1.4) mg/dL Estim Creat Clear Calc Estimated GFR POC Glucose (60-115) mg/dL Random Glucose (60-115) mg/dL Calcium (8.4-10.2) mg/dL Magnesium (1.6-2.6) mg/dL Total Bilirubin (0.0-1.0) mg/dL Direct Bilirubin (0.0-0.5) mg/dL AST (5-37) U/L ALT (0-40) U/L Alkaline Phosphatase (39-117) U/L Troponin I High Sens (<3.5-35.0) ng/L Total Protein (6.5-8.0) g/dL Albumin (3.5-5.0) g/dL Hold Red Top COVID-19 ([facility]IA) Negative (Negative) COVID-19 Clin Com See Note Imaging Data CT scan of brain without contrast: Attestation: I personally reviewed and interpreted this imaging study as follows: Radiologist's impression: FINDINGS: No intra-axial or extra-axial hemorrhage. No acute territorial infarct. Mild chronic small vessel ischemic disease of the periventricular white matter. Preservation of yu-white matter differentiation. No mass, mass effect, or midline shift. No fracture. Fracture fixation of the anterior left maxillary sinus which is nearly completely opacified. Partial opacification of the left ethmoid air cells and mucosal thickening of the right maxillary sinus. The mastoid air cells and visualized paranasal sinuses are otherwise clear. This critical result was discussed with FABI Guidry at 10:52 AM on 11/20/2021 and it was ascertained that the content and urgency of the report was understood at the time of direct communication. ? CT/CT head for stroke IMPRESSION: No acute intracranial pathology. ? CTA of head and neck: Attestation: I personally reviewed and interpreted this imaging study as follows: Radiologist's impression: FINDINGS: CT Head: There is no evidence of acute intracranial hemorrhage or territorial infarction. No abnormal mass-effect or midline shift is seen. Yu to white matter differentiation is well preserved. No extra-axial fluid collections are identified. There is no abnormal enhancement. There is mild commensurate prominence of the ventricles and sulci consistent with diffuse volume loss. There are mild chronic microvascular ischemic changes. There have been bilateral lens extractions. There are severe degenerative changes of the right temporomandibular joint. There is mucoperiosteal thickening of the bilateral maxillary sinuses, bilateral ethmoid air cells and the left frontal sinus. Plate and screws are noted along the left anterior maxilla. There are no acute osseous findings. The mastoid air cells are well-aerated. CTA Neck: There is a classic configuration of the aortic arch. There are atheromatous calcifications of the aortic arch, and at the origins of the great vessels of the neck. There is approximately 50% stenosis at the origin of the left subclavian artery. There are moderate atheromatous calcifications at the right subclavian artery. There are atheromatous calcifications around the left common carotid artery. There are no significant atheromatous calcifications of the carotid bifurcations. The cervical internal carotid arteries are patent bilaterally. The origins of the vertebral arteries are well-demonstrated bilaterally. There are atheromatous calcifications at the origin of the right vertebral artery. There are also calcifications around the cervical right vertebral artery. The right vertebral artery is dominant. Both vertebral arteries are patent throughout their cervical course extending intradurally. Nonvascular: The visualized lung apices are well-aerated. The thyroid gland appears normal. There is no cervical lymphadenopathy. There is mild increased attenuation and soft tissue fullness in the subcutaneous fat in the left submandibular region. There are moderate spondylitic and facet arthropathic changes in the cervical spine. There is a moderate degenerative anterolisthesis of C7 on T1. CTA Head: There are atheromatous calcifications of the cavernous and paraclinoid internal carotid arteries bilaterally, but the vessels are patent. The middle and anterior cerebral arteries bilaterally demonstrate normal caliber with no evidence of focal stenosis, aneurysm or vascular malformation. There is normal arborization of the middle cerebral artery branches. The anterior communicating artery is normal. In the posterior circulation, the right vertebral artery is dominant. There are mild atheromatous calcifications of the proximal and distal intradural right vertebral artery. The left vertebral artery ends primarily in the PICA. The basilar artery and the posterior cerebral arteries are patent. The venous sinuses opacify normally. CT/CT angio head? neck stroke IMPRESSION: 1. There are no acute bleeds or territorial infarcts. There are no masses or areas of abnormal enhancement. ? 2. There is diffuse loss with chronic microvascular ischemic changes. ? 3. There is relatively extensive paranasal sinus disease. There is some soft tissue fullness with increased attenuation in the subcutaneous fat in the left submandibular region; correlate clinically. ? 4. There are atherosclerotic calcifications of the aortic arch and great vessels of the neck, without significant flow-limiting stenosis. ? 5. Intracranially there are no focal stenoses, aneurysms or vascular malformations. ? This critical result was discussed with Dr. Guerrero by telephone on 11/20/2021 at 12:49 PM and it was ascertained that the content and urgency of the report was understood at the time of direct communication. ECG Data Attestation: I personally reviewed and interpreted this ECG as follows: ECG interpretation date: 11/20/21 ECG interpretation time: 10:28 Interpretation: Sinus rhythm with first-degree AV block with ventricular rate of 73 with nonspecific T-wave abnormalities no acute ischemic changes are noted. No prior EKGs to compare to at this time. Critical Care Time Critical Care Time Critical Care Time: Yes Total Critical Care Time: 60 Attestation: I personally attest to this time spent taking care of the patient Discharge Plan Discharge Clinical Impression: Acute left-sided weakness, Acute hyponatremia, Angioedema of lips, Allergic reaction to contrast dye Patient Disposition: Admitted As Inpatient
[2021-11-20 10:31] LABS: MANUAL DIFF FLAG NO
[2021-11-20 10:33] LABS: Basophils Absolute Auto 0.1 X10*3/uL (0.0-0.2); Basophils Percent Auto 1.1 % (0-2); Eosinophils Absolute Auto 0.1 X10*3/uL (0.0-0.4); Eosinophils Percent Auto 1.7 % (0-4); Hematocrit 37.1 % (42.0-52.0); Hemoglobin 13.6 g/dl (14.0-18.0); Imm Gran Abs Auto 0.06 X10*3/uL (0.00-0.03); Imm Gran Pct Auto 0.9 % (0.0-0.4); Lymphocytes Absolute Auto 1.3 X10*3/uL (1.2-4.9); Lymphocytes Percent Auto 18.6 % (20-40); Mean Corpuscular HGB Conc 36.7 g/dl (31.0-36.0); Mean Corpuscular Hemoglobin 30.2 pg (27.0-33.0); Mean Corpuscular Volume 82.4 fL (80.0-98.0); Mean Platelet Volume 8.8 fL (9.4-12.4); Monocytes Absolute Auto 0.7 X10*3/uL (0.1-1.2); Monocytes Percent Auto 9.8 % (2-11); Neutrophils Absolute Auto 4.8 x10*3/uL (2.0-8.3); Neutrophils Percent Auto 67.9 % (45-73); Platelet Count 216 X10*3/uL (160-400); Red Cell Distribution Width 12.1 % (11.0-16.0)
[2021-11-20 10:38] LABS: Prothrombin Time 10.8 SEC (9.9-13.0)
[2021-11-20 10:41] LABS: Partial Thromboplastin Time 31.1 SEC (24.1-38.0)
[2021-11-20 10:48] LABS: Stroke Lab Use COMPLETE
[2021-11-20 10:53] LABS: Troponin-I High Sensitivity < 3.5 ng/L (<3.5-35.0)
[2021-11-20 10:54] LABS: Alanine Aminotransferase 41 U/L (0-40); Albumin Level 4.6 g/dL (3.5-5.0); Alkaline Phosphatase 86 U/L (39-117); Anion Gap 16 (12-20); Aspartate Amino Transferase 29 U/L (5-37); Bilirubin Direct 0.4 mg/dL (0.0-0.5); Blood Urea Nitrogen 10 mg/dL (9-16); Calcium 9.7 mg/dL (8.4-10.2); Carbon Dioxide 23 mmol/L (22-29); Chloride 92 mmol/L (96-108); Creatinine Clr Calc Pharmacy 60.6; Estimated Glomerular Filt Rate > 60; Glucose Random 147 mg/dL (60-115); Magnesium 1.6 mg/dL (1.6-2.6); Sodium 127 mmol/L (135-145); Total Protein 7.6 g/dL (6.5-8.0)
--- NOTE | 2021-11-20 10:54 | PC.NURSE ---
pt continues to be in ct at this time
[2021-11-20 10:57] LABS: Glucose, Whole Blood 132 mg/dL (60-115)
[2021-11-20] MEDS: 0.9 % Sodium Chloride 1,000 ML 999 ML IVCONT (11:17)
[2021-11-20] MEDS: iohexoL 350 MG/ML 100 ML INFUS..BTL IV (11:19)
[2021-11-20 11:40] LABS: COVID-19 Test Negative (Negative); IDNOW Serial# 16C4AD1C
[2021-11-20] MEDS: diphenhydrAMINE HCL 50 MG/ML VIAL IVPUSH (13:07)
[2021-11-20] MEDS: methylPREDNISolone Sod Succ 125 MG/2 ML VIAL IVPUSH (13:09)
[2021-11-20] MEDS: Famotidine/PF 20 MG/2 ML VIAL IVPUSH (13:09)
--- NOTE | 2021-11-20 13:11 | PC.NURSE ---
pt upper lip noticed to have some swelling following cta, medicated per order, airway appears patent, speaking in full clear sentences, no apparent distress noted.
--- NOTE | 2021-11-20 14:10 | PM.IMHP ---
History of Present Illness Date of Service: 11/20/21 <Nisha Pereira NP - Last Filed: 11/22/21 15:11> Chief Complaint: Facial droop <Nisha Pereira NP - Last Filed: 11/22/21 15:11> 81-year-old male with a past medical history type 2 diabetes, hypertension, hyperlipidemia who had a DVT in the right lower extremity currently on Plavix last took this morning, COPD, prostate cancer in PVD presenting to the ED with son at bedside with complaints of left-sided facial swelling/droop that the son noticed that 9-930 a.m. this morning when he was having coffee with his father.? he noticed that the left side of his face swollen and there appeared to be a droop however he did not notice whether there was any other area on his face that also appear to droop. Did not know any difference in his speech and the patient denied any visual changes or headache. The patient also denies chest pain, shortness of breath, nausea, vomiting, diarrhea, loss of consciousness. Head and neck CTA did not show any obvious blockages, head CT was negative for acute infarction or trauma. Hi sodium was noted to be low 127, blood pressure mildly elevated. Chest x-ray negative for consolidation or effusion. In the ER he received a L of IV fluid, Benadryl, Solu-Medrol, Pepcid. He was placed on observation for facial droop/angioedema. ? <Nisha Pereira NP - Last Filed: 11/22/21 15:11> Review of Systems Review of Systems: Denies any recent fever chills or decrease in appetite respiratory denies any shortness of breath coverage production cardiovascular denied chest pain gastrointestinal denies any dysphagia abdominal pain nausea vomiting or diarrhea genitourinary denies any dysuria frequency or hematuria musculoskeletal denies any joint pain or swelling neuropsych denies any weakness or seizures all other systems reviewed are negative <Nisha Pereira NP - Last Filed: 11/22/21 15:11> [facility] Medical History: Medical History (Updated 11/20/21 @ 21:58 by Rubin Boyle RN) COPD (chronic obstructive pulmonary disease) Essential hypertension HTN (hypertension) Hyperlipemia Macular degeneration of right eye Prostate cancer PVD (peripheral vascular disease) Type 2 diabetes mellitus without complications <Nisha Pereira NP - Last Filed: 11/22/21 15:11> Family History: Family History Mother No problems noted. Father No problems noted. <Nisha Pereira NP - Last Filed: 11/22/21 15:11> Surgical History: Surgical History (Updated 11/20/21 @ 21:57 by Rubin Boyle RN) History of cataract surgery History of facial surgery History of hernia surgery History of hip replacement History of inguinal hernia repair S/p bilateral carotid endarterectomy <Nisha Pereira NP - Last Filed: 11/22/21 15:11> Social History: Social History Household Members: Significant Other Household Members Other:: girlfriend Housing: Apartment Do you presently have visiting nurse or other home services: No Alcohol intake: never Patient Tobacco Use Status: Never used Tobacco Tobacco use type: Cigarette Cigarette Packs Per Day: 0.5 Cigarettes Per Day: 10 e-Cigarette/Vaping Use: Never Used Second Hand Smoke Exposure: No Advance Directives Date on File: 11/20/21 service: Yes ([email or web address]) Current occupational status: retired <Nisha Pereira NP - Last Filed: 11/22/21 15:11> Meds Allergies/Adverse reactions: Allergies Allergy/AdvReac Type Severity Reaction Status Date / Time No Known Allergies Allergy Verified 07/01/21 08:17 [No Known Allergies*] <Nisha Pereira NP - Last Filed: 11/22/21 15:11> Home medications: Home Medications Medication Instructions Recorded Confirmed Last Taken Type aspirin 81 mg tablet,delayed 81 mg PO DAILY 03/16/21 11/20/21 Unknown History release (Adult Low Dose Aspirin) atorvastatin 20 mg tablet 20 mg PO DAILY tab 03/16/21 11/20/21 Unknown History umeclidinium 62.5 mcg-vilanterol 1 inh PO DAILY 03/16/21 11/20/21 Unknown History 25 mcg/actuation powdr for inhalation amlodipine 10 mg tablet 10 mg PO BEDTIME 11/20/21 11/20/21 Unknown History citalopram 20 mg tablet 40 mg PO BEDTIME 11/20/21 11/20/21 Unknown History <Nisha Pereira NP - Last Filed: 11/22/21 15:11> Physical Exam Vital Signs and Narrative: Vital Signs: Last Vital Signs Temp 97.9 F 11/20/21 10:03 Pulse 75 11/20/21 11:12 Resp 22 H 11/20/21 11:12 BP 172/75 H 11/20/21 11:12 Pulse Ox 97 11/20/21 11:12 BMI result Body Mass Index 29.1 <Nisha Pereira NP - Last Filed: 11/22/21 15:11> Appearing in no acute distress head is normocephalic atraumatic eyes pupils are PERRLA sclera is anicteric mouth throat mucous membranes are intact and moist neck is supple no lymphadenopathy, no JVD noted lung sounds are clear to auscultation heart regular rate rhythm, clear S1, S2 positive bowel sounds, abdomen is soft, nontender neuro patient is alert x3, no focal deficits top lip swelling noted 5/5 upper and lower ext strength <Nisha Pereira NP - Last Filed: 11/22/21 15:11> Results Labs CBC and Chem 7: : 11/21/21 05:11 11/21/21 05:11 <Nisha Pereira NP - Last Filed: 11/22/21 15:11> Labs: Laboratory Results - last 24 hr 11/20/21 11/20/21 11/20/21 10:25 10:25 10:25 MCV 82.4 MCH 30.2 MCHC 36.7 H RDW 12.1 Plt Count 216 MPV 8.8 L Immature Gran % (Auto) 0.9 H Neut % (Auto) 67.9 Lymph % (Auto) 18.6 L [place] % (Auto) 9.8 Eos % (Auto) 1.7 Baso % (Auto) 1.1 Lymph # (Auto) 1.3 [place] # (Auto) 0.7 Eos # (Auto) 0.1 Baso # (Auto) 0.1 Abs Immat Gran (auto) 0.06 H Absolute Neuts (auto) 4.8 Absolute Nucleated RBC 0.000 Nucleated RBC % (auto) 0.0 PT 10.8 INR 1.0 APTT 31.1 Anion Gap 16 Estim Creat Clear Calc 60.6 Estimated GFR > 60 POC Glucose Random Glucose 147 H Calcium 9.7 Magnesium 1.6 Total Bilirubin 1.0 Direct Bilirubin 0.4 AST 29 ALT 41 H Alkaline Phosphatase 86 Troponin I High Sens Total Protein 7.6 Albumin 4.6 Hold Red Top COVID-19 ([facility]) COVID-19 Clin Com 11/20/21 11/20/21 11/20/21 10:25 10:26 10:53 MCV MCH MCHC RDW Plt Count MPV Immature Gran % (Auto) Neut % (Auto) Lymph % (Auto) [place] % (Auto) Eos % (Auto) Baso % (Auto) Lymph # (Auto) [place] # (Auto) Eos # (Auto) Baso # (Auto) Abs Immat Gran (auto) Absolute Neuts (auto) Absolute Nucleated RBC Nucleated RBC % (auto) PT INR APTT Anion Gap Estim Creat Clear Calc Estimated GFR POC Glucose 132 H Random Glucose Calcium Magnesium Total Bilirubin Direct Bilirubin AST ALT Alkaline Phosphatase Troponin I High Sens < 3.5 Total Protein Albumin Hold Red Top See Note COVID-19 ([facility]) COVID-19 Clin Com 11/20/21 11:11 MCV MCH MCHC RDW Plt Count MPV Immature Gran % (Auto) Neut % (Auto) Lymph % (Auto) [place] % (Auto) Eos % (Auto) Baso % (Auto) Lymph # (Auto) [place] # (Auto) Eos # (Auto) Baso # (Auto) Abs Immat Gran (auto) Absolute Neuts (auto) Absolute Nucleated RBC Nucleated RBC % (auto) PT INR APTT Anion Gap Estim Creat Clear Calc Estimated GFR POC Glucose Random Glucose Calcium Magnesium Total Bilirubin Direct Bilirubin AST ALT Alkaline Phosphatase Troponin I High Sens Total Protein Albumin Hold Red Top COVID-19 ([facility]) Negative COVID-19 Clin Com See Note <Nisha Pereira NP - Last Filed: 11/22/21 15:11> Imaging Radiologist's Impressions: Impressions Head CT 11/20/21 10:46 IMPRESSION: No acute intracranial pathology. Head/Neck CTA 11/20/21 11:18 IMPRESSION: 1. There are no acute bleeds or territorial infarcts. There are no masses or areas of abnormal enhancement. 2. There is diffuse loss with chronic microvascular ischemic changes. 3. There is relatively extensive paranasal sinus disease. There is some soft tissue fullness with increased attenuation in the subcutaneous fat in the left submandibular region; correlate clinically. 4. There are atherosclerotic calcifications of the aortic arch and great vessels of the neck, without significant flow-limiting stenosis. 5. Intracranially there are no focal stenoses, aneurysms or vascular malformations. This critical result was discussed with Dr. Guerrero by telephone on 11/20/2021 at 12:49 PM and it was ascertained that the content and urgency of the report was understood at the time of direct communication. Chest X-Ray 11/20/21 11:19 IMPRESSION: No acute pulmonary pathology. <Nisha Pereira NP - Last Filed: 11/22/21 15:11> Assessment and Plan (1) Acute left-sided weakness: Status: Acute <Nisha Pereira NP - Last Filed: 11/22/21 15:11> (2) Angioedema of lips: Status: Acute <Nisha Pereira NP - Last Filed: 11/22/21 15:11> Plan 81 year old man admitted with facial droop TIA vs stroke Angioedema/Facial droop Unable to have MRI due to Defib Neuro consult Echo Already on Plavix Still has some swelling to top lip, seems like it could be related to his Lisinopril so will hold but. but will still discuss with neurology to rule out TIA vs stroke steroids, benadryl Hypertention. elevated continue home medications except for Lisinopril Elevated blood glucose with A1C of 7.2 in 06/2021 Sliding scale recheck A1C Mental health continue home medications DVT prophylaxis with Heparin Attending Dr. Gupta Full code <Nisha Pereira NP - Last Filed: 11/22/21 15:11> 81 year old man admitted with facial droop TIA vs stroke Angioedema/Facial droop Unable to have MRI due to Defib Neuro consult Echo Already on Plavix Still has some swelling to top lip, seems like it could be related to his Lisinopril so will hold but. but will still discuss with neurology to rule out TIA vs stroke steroids, benadryl Hypertention. elevated continue home medications except for Lisinopril Elevated blood glucose with A1C of 7.2 in 06/2021 Sliding scale recheck A1C Mental health continue home medications DVT prophylaxis with Heparin Attending Dr. Gupta Full code Addendum to history and physical by mid-level provider LONG Pereira I interviewed and examined the patient. I discussed their presentation and management with the mid-level provider. I reviewed the history and physical and agree with the documentation, with the following additions and corrections: 81yo M with PAD, DM2, HLD, hx bilateral CEA, HTN presenting with L-sided facial droop and facial/perioral/neck swelling that his son noticed @ 9:15am this am. On my exam, still has some residual swelling of the L upper lip though has improved from his presentation. CTA negative for bleed/significant arterial stenosis. Impression is of angioedema and will treat with steroids + diphenhydramine but will consult Neuro out of abundance of caution. MRI cannot be done due to metal plates in face. <León Gupta MD - Last Filed: 11/20/21 17:13> Quality Stroke Does the patient have a stroke diagnosis?: No <León Gupta MD - Last Filed: 11/20/21 17:13> VTE Prior VTE?: Yes <León Gupta MD - Last Filed: 11/20/21 17:13> VTE Risk Level:: Medical - moderate - high <León Gupta MD - Last Filed: 11/20/21 17:13> VTE Device Contraindication: N/A - Device Ordered <León Gupta MD - Last Filed: 11/20/21 17:13> VTE Drug Contraindication: N/A - Med Ordered <León Gupta MD - Last Filed: 11/20/21 17:13>
--- NOTE | 2021-11-20 14:37 | PC.NURSE ---
swelling dispersing to r side of upper lip. L>R swelling
--- NOTE | 2021-11-20 15:10 | PHA.MEDREC ---
MED REC COMPLETE, NO ISSUES Pharmacy Consult ? Medication Reconciliation Pharmacy has completed the medication reconciliation.
--- NOTE | 2021-11-20 17:42 | PC.NURSE ---
swelling now shifting from R>L
[2021-11-20] MEDS: diphenhydrAMINE HCL 50 MG/ML VIAL 25 MG IVPUSH ×2 (17:53→23:33)
--- NOTE | 2021-11-20 18:03 | PC.NURSE ---
plan for pt to go to icu
--- NOTE | 2021-11-20 18:12 | PM.EVENT ---
Event Note Date of Service: 11/20/21 Event Note: Called by RN for concern of worsening facial/lip swelling noted now on the R side of pt's face, along with self-report of larger tongue. Pt breathing 16/min, satting 94 on RA. Ate 1.5 hr ago. Has been given IV methylprednisolone, diphenhydramine, and famotidine. Discussed with receptionist secretary Dagoberto Contreras and the patient will be transferred to the ICU for monitoring.
--- NOTE | 2021-11-20 20:52 | PC.NURSE ---
I assumed nursing care of Amaury at 1900. Since that time he has remained alert, oriented x 3, calm and cooperative. He is aware that he is TBADM to ICU for observation due to angioedema. His family is ta the bedside and they also verbalize an understanding of this. There is obvious facial swelling, initially at 1900 on the R side of his face moreso than the left side of his. however, at 1999 there seems to be less visible swelling to the left side of his face and more to the right side of his face. His speech is clear, no hoarseness, no difficulty handling his own secretions. He speaks in full sentences, room air sat's are 95% or better, no cyanosis. he has no complaints at this time. He would like PO food and fluids but is aware that he is to remain NPO. he ambulated to and from the bathroom independently and with steady gait with one stand by assist. he denies any pain. No nausea or vomiting. FFP transfusing. Will transfer to ICU upon its completion. nursing report to HÉCTOR Franco in ICU.
--- NOTE | 2021-11-20 21:16 | W.PM.CCCN ---
History of Present Illness Data of Consult Service Date: 11/20/21 Requesting physician: Nisha Pereira Primary Care Provider: Ro Bernal NP HPI Reason for consult: Angioedema HPI: ?81-year-old male with underlying history of COPD not on home oxygen who is a current smoker, has hypertension, hyperlipidemia, new onset diabetes type 2 not on treatment get, central obesity, bilateral carotid endarterectomy, left leg as stent, prostate cancer post resection among others, presented to the emergency room around 940 this morning with complaints of facial swelling and drooping. According to the patient family, the patient had gotten to visit his son around 920 in the morning and his family immediately noted that his left side was swollen somewhat droopy, the rash him to the emergency room where he had a full workup for the possibility of a stroke, dry head CT revealed no acute pathology, he also had a head and neck CT with contrast which revealed no acute bleed or territorial infarcts, diffuse loss of chronic microvascular ischemic changes, extensive paranasal sinus disease with soft tissue fullness and increased attenuation of the subcutaneous fat in the left submandibular region.? Atherosclerotic calcifications of the aortic arch and great vessels of the neck without significant flow limiting stenosis.? Intracranially no focal stenosis, aneurysms of or vascular malformations were noted. In regards to the patient's initial report of tingling sensation of the left hand and leg he states that this is not new and has been happening for several months however today might have been a little worse, denies weakness.? He does admit having intermittent dizziness at home and family reports he is getting forgetful. ?Currently he denies any headaches, worsening visual issues, trouble swallowing although he tried to eat around 05:00 o'clock this afternoon and almost choked, denies weakness of the upper lower extremities, nausea or vomiting, chest pain, shortness of breath, admits having cough which is chronic for him with some white sputum production, no worsening shortness of breath, no fever.? Patient still smokes. Upon coming from the images, family noted that the swelling was getting somewhat worse into his upper lip and now transitioning from the left side of his face to the right side, at this point that the workup turned to the possibility of IV contrast reaction however to my understanding the swelling was present on the left side of the face and this was noted by the patient's son at home. ?The patient does take lisinopril and hydrochlorothiazide.? Patient was treated with Benadryl, Solu-Medrol and Pepcid, evaluated by the hospitalist but given the concern that the patient's swelling was getting worse the patient was then accepted into the ICU.? Patient is received fresh frozen plasma as we speak. Currently patient is feeling much better, speaking full sentences, according to the family the swelling is much better.? His laboratory workup did not reveal significant abnormalities other than a sodium of 127 and a glucose of 132.? COVID negative. ROS:? As above, in addition the patient denies any thyroid disease, no cold or heat intolerance, no history of pneumonia, has had bronchitis in the past, denies coronary disease or chest pain, palpitations, currently denies nausea vomiting, abdominal pain, melena hematochezia, dysuria, admits to polyuria, denies swelling of the legs, DVT or PE.? He is up-to-date with all his vaccines including COVID. Past Medical History:? As above SBO as a complication from abdominal herniorrhaphy Past Surgical History: ? Bilateral carotid endarterectomy Bilateral cataract surgery Left facial reconstruction surgery Bilateral hip surgery Left leg stent Abdominal herniorrhaphy Family history:? Multiple family members have different types of cancer including pancreatic, lung cancer and multiple family members have coronary disease, patient unable to specify. Social History:? Patient lives at home without stairs, does not use a walker or a cane, he does have a lifelong partner, has a 60 pack-year history of tobacco consumption, still smokes half pack a day.? Admits to 4-6 beers per day, denies history of drug use. CODE STATUS: FULL CODE? Allergies: NKDA Home Medications: See Med Rec PHYSICAL EXAM: VS: ?133/69, heart rate 84, respirations 16, O2 sat 94% on room air. General:? Alert oriented x3 no acute distress.? Speaking full sentences.? Speech is well articulated, thought process is coherent.? Following all commands. Skin:? Upper lip is swollen with slight edema on the right side although family states that the swelling was present on the left side prior to arrival to the hospital.? There is no tongue swelling. ?Intact, no lesions, edema, erythema, clubbing or cyanosis.? No ulcers. HEENT:? Head is normocephalic, atraumatic, pupils equal round reactive to light accommodation bilaterally.? Extraocular movements appear intact.? Buccal mucosa is moist, Neck is supple without lymphadenopathy Cardiac:? 4/6 systolic murmur best heard at the left upper sternal border noted, otherwise no rubs or gallops. Pulmonary:? Coarse lung sounds bilaterally with minimal wheezing in the upper lung fernandez, no rhonchi or crackles. ? Abdomen:? Protuberant, positive bowel sounds in all 4 quadrants.? Soft, nontender, no rebound or guarding.? Musculoskeletal:? Moving all 4 extremities upon request a major joints, there is no crepitus or tenderness.? The strength is 5/5 bilaterally and throughout all 4 extremities.? There is no leg edema , no calf tenderness , no leg asymmetry.? Gait not assessed at this point. Neurologic:? As above, cranial nerves 2-12 are grossly intact.? No focal deficits noted. ?There is no facial droop, no pronator drift.? [id number] test is intact bilaterally.? [id number] normal.? Gait not assessed at this point Vascular:? 2+ pulses upper and lower extremities distally. SIGNIFICANT LABORATORY DATA: ?White blood cell 7.0, hemoglobin 13.6, hematocrit 37.1, platelet count 216, PT 10.8, INR 1.0, sodium 127, potassium 4.0, chloride 92, carbon dioxide 23, anion gap 16, BUN 10, creatinine 0.85, calcium 9.7, magnesium 1.6, HCT 29, ALT 41, troponin less than 3.5, albumin 4.6. REVIEW OF IMAGES: ?As above EKG REVIEW:? Sinus rhythm with first-degree AV block, nonspecific T-wave abnormalities.? Rate 73 beats per minute.? QTC 431.? No comparison. ASSESSMENT AND PLAN: 1. Acute angioedema, is likely due to lisinopril/hydrochlorothiazide intake and less likely due to a contrast reaction as the symptoms were present prior to arrival.? No evidence of stroke. 2. HCTZ / Hypovolemic hyponatremia 3. Clinical dehydration 4. Stable essential hypertension 5. New onset diabetes not on treatment 6. Daily alcohol consumption abuse 7. COPD with mild exacerbation as the patient is currently wheezy 8. Normocytic anemia rule out microscopic bleeding, iron deficiency, chronic disease At this point patient is stable, I do not think the patient's symptomatology or signs of angioedema are getting worse according to description it is actually getting better, will continue with Solu-Medrol, Benadryl, Pepcid and monitor closely.? The patient also received FFP which will also help although I do not think it was necessary.? Will give gentle IV fluids, will hold hydrochlorothiazide/Lisinopril for this medications are well known to cause angioedema despite of the length that the patient has been taking them. ?Will order diabetic diet and if necessary use insulin sliding scale.? Will watch for autonomic signs of etoh withdrawal for I am not certain the patient is being honest about the amount of alcohol he is consuming.? He will need DuoNebs.? Will order an iron panel and stool guaiac. ?Will repeat labs in the morning if the patient is stable, will transfer him to the next level of care ([facility]). GI PROPHYLAXIS: ?On Pepcid DVT PROPHYLAXIS:? On heparin Critical care time used for critical evaluation of this patient, diagnosis, treatment and coordination of care, review her records and documentation TOTAL CRITICAL CARE TIME 90 MIN . Patient's care was discussed in detail with Dr. Contreras.? He is aware of all the above as well as the plan of care for this patient. [facility] Past Medical History Medical History (Updated 11/20/21 @ 21:58 by Rubin Boyle RN) COPD (chronic obstructive pulmonary disease) Essential hypertension HTN (hypertension) Hyperlipemia Macular degeneration of right eye Prostate cancer PVD (peripheral vascular disease) Type 2 diabetes mellitus without complications Family History Family History Mother No problems noted. Father No problems noted. Surgical History Surgical History (Updated 11/20/21 @ 21:57 by Rubin Boyle RN) History of cataract surgery History of facial surgery History of hernia surgery History of hip replacement History of inguinal hernia repair S/p bilateral carotid endarterectomy Social History Social History Household Members: Significant Other Household Members Other:: girlfriend Housing: Apartment Do you presently have visiting nurse or other home services: No Alcohol intake: never Patient Tobacco Use Status: Never used Tobacco Tobacco use type: Cigarette Cigarette Packs Per Day: 0.5 Cigarettes Per Day: 10 e-Cigarette/Vaping Use: Never Used Second Hand Smoke Exposure: No Advance Directives Date on File: 11/20/21 service: Yes ([employer]) Current occupational status: retired Meds Allergies Allergy/AdvReac Type Severity Reaction Status Date / Time No Known Allergies Allergy Verified 07/01/21 08:17 [No Known Allergies*] Active Medications: Current Medications Acetaminophen (Acetaminophen 325 Mg Tablet) 650 mg PO Q6H PRN PRN Reason: Pain, Mild (Pain Scale 1-3) Albuterol/Ipratropium (Albuterol/Iprat 2.5/0.5mg 3 Ml Ampul.Neb) 3 ml INHALE RQ6H WHILE AWAKE [facility] Amlodipine Besylate (Amlodipine Besylate 10 Mg Tablet) 10 mg PO BEDTIME CATHY; Protocol Amlodipine Besylate (Amlodipine Besylate 10 Mg Tablet) 10 mg PO BEDTIME CATHY; Protocol Aspirin (Aspirin Enteric Coated 81 Mg Tablet.) 81 mg PO DAILY [facility] Atorvastatin Calcium (Atorvastatin Calcium 20 Mg Tablet) 20 mg PO DAILY [facility] Clopidogrel Bisulfate (Clopidogrel Bisulfate 75 Mg Tablet) 75 mg PO DAILY [facility] Dextrose (Dextrose 50 % 25 Gm/50 Ml Vial) 25 gm IVPUSH Q15M PRN; Protocol PRN Reason: per Hypoglycemia Standing Ord. Diphenhydramine HCl (Diphenhydramine Hcl 50 Mg/Ml Vial) 25 mg IVPUSH Q6H PRN PRN Reason: Allergic Reaction Last Admin: 11/20/21 17:53 Dose: 25 mg Documented by: Escitalopram Oxalate (Escitalopram Oxalate 20 Mg Tablet) 20 mg PO BEDTIME [facility] Glucose (Glucose Gel 15 Gm Gel..Gram.) 15 gm PO Q15M PRN; Protocol PRN Reason: per Hypoglycemia Standing Ord. Heparin Sodium (Porcine) (Heparin Sodium,Porcine 5,000 Unit/Ml Vial) 5,000 unit SUBCUT Q12H [facility] Insulin Human Lispro (Insulin Lispro 100 Unit/Ml 3 Ml Vial) 0 unit SUBCUT QIDACHS [facility]; Protocol Methylprednisolone Sodium Succinate (Methylprednisolone Sod Succ 40 Mg/Ml Vial) 40 mg IVPUSH Q12H [facility] Non-Formulary Medication (Umeclidinium-Vilanterol) 1 inhalation PO DAILY [facility] Omeprazole (Omeprazole 20 Mg Capsule.) 20 mg PO DAILY@0630 [facility] Ondansetron HCl (Ondansetron Hcl 4 Mg/2 Ml Vial) 4 mg IVPUSH Q8H PRN PRN Reason: Nausea and Vomiting Pharmacy Consult (Consult Rx Perform Med Rec) 1 each MISCELLANE ONCE PRN PRN Reason: Consult order Sodium Chloride (0.9 % Sodium Chloride Flush 3 Ml Syringe) 3 ml IVFLUSH QSHIFT [facility] Last Admin: 11/20/21 17:42 Dose: Not Given Documented by: Trazodone HCl (Trazodone Hcl 100 Mg Tablet) 100 mg PO BEDTIME [facility] Home Medications Medication Instructions Recorded Confirmed Last Taken Type aspirin 81 mg tablet,delayed 81 mg PO DAILY 03/16/21 11/20/21 Unknown History release (Adult Low Dose Aspirin) atorvastatin 20 mg tablet 20 mg PO DAILY tab 03/16/21 11/20/21 Unknown History umeclidinium 62.5 mcg-vilanterol 1 inh PO DAILY 03/16/21 11/20/21 Unknown History 25 mcg/actuation powdr for inhalation amlodipine 10 mg tablet 10 mg PO BEDTIME 11/20/21 11/20/21 Unknown History citalopram 20 mg tablet 40 mg PO BEDTIME 11/20/21 11/20/21 Unknown History Physical Exam Vital Signs: Vital Signs: Last Vital Signs Temp 97.9 F 11/20/21 20:49 Pulse 85 11/20/21 20:49 Resp 12 11/20/21 20:49 BP 133/69 11/20/21 20:49 Pulse Ox 94 11/20/21 17:56 BMI result Body Mass Index 29.1 Results Labs CBC & Chem 7: 11/21/21 05:11 11/21/21 05:11 Labs: Short CBC 11/20/21 Range/Units 10:25 WBC 7.0 (4.8-10.8) X10*3/uL Hgb 13.6 L (14.0-18.0) g/dl Hct 37.1 L (42.0-52.0) % Plt Count 216 (160-400) X10*3/uL BMP 11/20/21 10:25 Sodium 127 L Potassium 4.0 Chloride 92 L Carbon Dioxide 23 BUN 10 Creatinine 0.85 Calcium 9.7 Liver Function 11/20/21 Range/Units 10:25 Total Bilirubin 1.0 (0.0-1.0) mg/dL Direct Bilirubin 0.4 (0.0-0.5) mg/dL AST 29 (5-37) U/L ALT 41 H (0-40) U/L Alkaline Phosphatase 86 (39-117) U/L Albumin 4.6 (3.5-5.0) g/dL
[2021-11-20 22:27] LABS: Glucose, Whole Blood 188 mg/dL (60-115)
[2021-11-20] MEDS: traZODone HCL 100 MG TABLET PO (22:36)
[2021-11-20] MEDS: amLODIPine Besylate 10 MG TABLET PO (22:36)
[2021-11-20] MEDS: Insulin Lispro 100 UNIT/ML 3 ML VIAL SUBCUT (22:37)
[2021-11-20] MEDS: Escitalopram Oxalate 20 MG TABLET PO (22:37)
[2021-11-20] MEDS: Heparin Sodium,Porcine 5,000 UNIT/ML VIAL 5000 UNIT SUBCUT (22:39)
[2021-11-20] MEDS: 0.9 % Sodium Chloride Flush 3 ML SYRINGE IVFLUSH (22:42)
[2021-11-21] VITALS (13 sets, daily range): BP systolic 94–137; BP diastolic 57–74; PULSE 82–109; RESP 10–21; TEMP 36.8–37.2; O2SAT 91–97; BMI 27.6
[2021-11-21] MEDS: diphenhydrAMINE HCL 50 MG/ML VIAL 25 MG IVPUSH (02:28)
[2021-11-21] MEDS: Famotidine/PF 20 MG/2 ML VIAL IVPUSH ×2 (02:29→08:09)
[2021-11-21] MEDS: methylPREDNISolone Sod Succ 40 MG/ML VIAL IVPUSH ×2 (02:30→08:09)
--- NOTE | 2021-11-21 02:46 | PC.NURSE ---
Addendum entered by Jenna Tracy RN 11/21/21 06:26: correction to pepcid dose given at 0200...the correct dose is 20 mg not 40 mg as initially charted. Original Note: PT TO ICU AT 2105 IN NO ACUTE DISTRESS. PT IS ACCOMPANIED BY HIS SON AND IS A&O X3. SLIGHT SWELLING OF UPPER LIP NOTED AND RIGHT CHEEK/JAW. AMBULATED FROM ER STRETCHER APRROXIMATELY 15 FEET TO ICU BED. NO DIZZINESS. GAIT STEADY. SPEECH CLEAR. PASSED SWALLOW EVAL. VITALS STABLE. MONITOR NSR, RATE 80'S, NO ECTOPY. ORIENTED TO UNIT AND UNIT ROUTINE. APPROXIMATELY 0200, PT STATED HE FELT LIKE THE SWELLING WAS INCREASING. DAFNE AVENDAÑO PAC AT BEDSIDE TO EVALUATE. SWELLING LOOKED THE SAME ON ARRIVAL TO ICU. MEDS ORDERED AND GIVEN TO PT...BENEDRYL 25 MG IV, SOLUMEDROL 40 MG IV AND PEPCID 40 MG IV. PT WITH HOB UP 30-45 DEGREES.
[2021-11-21 05:21] LABS: Basophils Percent Auto 0.1 % (0-2); Hematocrit 35.1 % (42.0-52.0); Hemoglobin 12.8 g/dl (14.0-18.0); Imm Gran Pct Auto 1.2 % (0.0-0.4); Lymphocytes Absolute Auto 0.5 X10*3/uL (1.2-4.9); Lymphocytes Percent Auto 5.9 % (20-40); MANUAL DIFF FLAG SCAN; Mean Corpuscular HGB Conc 36.5 g/dl (31.0-36.0); Mean Corpuscular Volume 82.2 fL (80.0-98.0); Mean Platelet Volume 8.8 fL (9.4-12.4); Monocytes Absolute Auto 0.1 X10*3/uL (0.1-1.2); Monocytes Percent Auto 1.2 % (2-11); Neutrophils Absolute Auto 7.4 x10*3/uL (2.0-8.3); Neutrophils Percent Auto 91.6 % (45-73); Platelet Count 221 X10*3/uL (160-400); Red Blood Count 4.27 X10*6/uL (4.60-5.80); Red Cell Distribution Width 12.2 % (11.0-16.0); SCAN SMEAR FLAG 1; White Blood Count 8.1 X10*3/uL (4.8-10.8)
[2021-11-21 05:35] LABS: Anion Gap 14 (12-20); Blood Urea Nitrogen 12 mg/dL (9-16); Calcium 9.4 mg/dL (8.4-10.2); Carbon Dioxide 25 mmol/L (22-29); Chloride 98 mmol/L (96-108); Creatinine Clr Calc Pharmacy 61.3; Estimated Glomerular Filt Rate > 60; Glucose Random 185 mg/dL (60-115); Potassium 3.8 mmol/L (3.3-5.1); Sodium 133 mmol/L (135-145)
[2021-11-21 05:38] LABS: SLIDE REVIEW VERIFIED
--- NOTE | 2021-11-21 06:18 | PC.NURSE ---
Pt slept off and on in naps during the night. No resp distress. After receiving benedryl, solumedrol and pepcid at 0230, the swelling in on the right side of his face and cheek/jaw went down.
[2021-11-21 07:29] LABS: Glucose, Whole Blood 200 mg/dL (60-115)
[2021-11-21 07:45] LABS: Estimated Average Glucose 140 mg/dL; Hemoglobin A1c % 6.5 %
[2021-11-21] MEDS: Albuterol/Iprat 2.5/0.5MG 3 ML AMPUL.NEB INHALE (07:46)
[2021-11-21] MEDS: Heparin Sodium,Porcine 5,000 UNIT/ML VIAL 5000 UNIT SUBCUT (08:09)
[2021-11-21] MEDS: diphenhydrAMINE HCL 50 MG/ML VIAL IVPUSH (08:09)
[2021-11-21] MEDS: Aspirin Enteric Coated 81 MG TABLET.DR PO (08:10)
[2021-11-21] MEDS: Insulin Lispro 100 UNIT/ML 3 ML VIAL SUBCUT ×2 (08:10→11:44)
[2021-11-21] MEDS: Clopidogrel Bisulfate 75 MG TABLET PO (08:10)
[2021-11-21] MEDS: 0.9 % Sodium Chloride Flush 3 ML SYRINGE IVFLUSH (08:10)
[2021-11-21 11:22] LABS: Glucose, Whole Blood 285 mg/dL (60-115)
--- NOTE | 2021-11-21 12:04 | P.PNCC_ITS ---
Subjective Subjective Date of Service: 11/21/21 Interval History: Mr. Guzman was admitted to the ICU last night with angioedema of the face. The patient is an 81-year-old male with underlying history of COPD not on home oxygen who is a current smoker, has hypertension, hyperlipidemia, new onset diabetes type 2 not on treatment yet, central obesity, h/o bilateral carotid endarterectomy, left leg stent, prostate cancer post resection, and alcohol use. ? He takes Lisinopril-hydrochlorthiazide for HTN. The patient presented to the emergency room yesterday morning with complaints of facial swelling and drooping.? The patient had visited his family that morning and they immediately noted that the left side of his face was swollen somewhat droopy.? They brought him to the emergency room where he had a full workup for the possibility of a stroke.? Head CT revealed no acute pathology; head and neck CT with contrast showed no acute bleed or territorial infarcts, chronic microvascular ischemic changes, extensive paranasal sinus disease with soft tissue fullness and increased attenuation of the subcutaneous fat in the left youssef bmandibular region.? Atherosclerotic calcifications of the aortic arch and great vessels of the neck without significant flow limiting stenosis were noted. He was admitted to Medicine w diagnosis of angioedema.? Later on while still in the ED, the left sided facial swelling had improved but he developed facial swelling of the right side of his face, worsened lip swelling, and a feeling of a larger tongue.? The patient was therefore admitted to the ICU for observation. The patient was given Benadryl Solu-Medrol and Pepcid in the ED.? I recommended FFP when Dr. Gupta called me. On admission to the ICU, the patient was feeling much better, and according to the family the swelling was much better.? His laboratory workup did not reveal significant abnormalities other than a sodium of 127. On exam this morning, patient's face looks fairly normal to me, possibly some very mild left cheek swelling and very mild upper lip swelling.? His speech is normal, and he feels back to normal.? The patient's son confirmed my observations.? Breathing easy, with Sat as high as 96% on room air; he?s not required suppl oxygen during the course of his hospitalization.? HR about 90, BP 120/60.? Afebrile throughout.? No wheezing, normal exp phase. LABORATORY DATA:? Below.? Notably, sodium 133 this morning.IMPRESSION: 1. Acute angioedema, likely 2? lisinopril.? I?ve advise the family that he should not take lisinopril ever again and he should consult his PCP in regards to further blood pressure management. 2. Hyponatremia, most likely 2? thiazide diuretics.? I have advised the family that he is probably better off without the thiazide diuretic and his PCP can manage his blood pressure further. 3. Stable essential hypertension 4. New onset diabetes not on treatment.? The family knows about this.? I advised them that his PCP would probably start him on oral meds. 5. Daily alcohol consumption.? I advised the family that he would be much better off discontinuing any alcohol at all in view of possible dementia (below). 6. COPD with possible mild exacerbation.? No tx indicated. 7. Normocytic anemia rule out microscopic bleeding, iron deficiency, chronic disease 8. ? Early dementia.? The son noted to me that his father?s memory is terrible.? Could be early dementia.? I advised him to discuss with his PCP, and that there are medications that may be helpful. ?And this is another reason why stopping alcohol intake is important. Critical Care Time (minutes): 0 Physical Exam Vital Signs: Vital Signs: Last Vital Signs Temp 98.9 F 11/21/21 08:00 Pulse 92 11/21/21 11:00 Resp 13 11/21/21 11:00 BP 97/70 11/21/21 11:00 Pulse Ox 93 11/21/21 11:00 BMI result Body Mass Index 27.6 Objective Data Labs CBC & Chem 7: 11/21/21 05:11 11/21/21 05:11 Labs: Laboratory Results - last 24 hr 11/20/21 11/20/21 11/21/21 19:07 22:24 05:11 WBC 8.1 RBC 4.27 L Hgb 12.8 L Hct 35.1 L MCV 82.2 MCH 30.0 MCHC 36.5 H RDW 12.2 Plt Count 221 MPV 8.8 L Immature Gran % (Auto) 1.2 H Neut % (Auto) 91.6 H Lymph % (Auto) 5.9 L [place] % (Auto) 1.2 L Eos % (Auto) 0.0 Baso % (Auto) 0.1 Lymph # (Auto) 0.5 L [place] # (Auto) 0.1 Eos # (Auto) 0.0 Baso # (Auto) 0.0 Abs Immat Gran (auto) 0.10 H Absolute Neuts (auto) 7.4 Absolute Nucleated RBC 0.000 Nucleated RBC % (auto) 0.0 Smear Tech's Comments VERIFIED Sodium Potassium Chloride Carbon Dioxide Anion Gap BUN Creatinine Estim Creat Clear Calc Estimated GFR POC Glucose 188 H Random Glucose Estimat Average Glucose Hemoglobin A1c % Calcium Blood Type B Positive Antibody Screen NEGATIVE 11/21/21 11/21/21 11/21/21 05:11 05:11 07:26 WBC RBC Hgb Hct MCV MCH MCHC RDW Plt Count MPV Immature Gran % (Auto) Neut % (Auto) Lymph % (Auto) [place] % (Auto) Eos % (Auto) Baso % (Auto) Lymph # (Auto) [place] # (Auto) Eos # (Auto) Baso # (Auto) Abs Immat Gran (auto) Absolute Neuts (auto) Absolute Nucleated RBC Nucleated RBC % (auto) Smear Tech's Comments Sodium 133 L Potassium 3.8 Chloride 98 Carbon Dioxide 25 Anion Gap 14 BUN 12 Creatinine 0.82 Estim Creat Clear Calc 61.3 Estimated GFR > 60 POC Glucose 200 H Random Glucose 185 H Estimat Average Glucose 140 Hemoglobin A1c % 6.5 Calcium 9.4 Blood Type Antibody Screen 11/21/21 11:19 WBC RBC Hgb Hct MCV MCH MCHC RDW Plt Count MPV Immature Gran % (Auto) Neut % (Auto) Lymph % (Auto) [place] % (Auto) Eos % (Auto) Baso % (Auto) Lymph # (Auto) [place] # (Auto) Eos # (Auto) Baso # (Auto) Abs Immat Gran (auto) Absolute Neuts (auto) Absolute Nucleated RBC Nucleated RBC % (auto) Smear Tech's Comments Sodium Potassium Chloride Carbon Dioxide Anion Gap BUN Creatinine Estim Creat Clear Calc Estimated GFR POC Glucose 285 H Random Glucose Estimat Average Glucose Hemoglobin A1c % Calcium Blood Type Antibody Screen Quality Stroke Does the patient have a stroke diagnosis?: No VTE Prior VTE?: Yes VTE Risk Level:: Medical - moderate - high VTE Device Contraindication: N/A - Device Ordered VTE Drug Contraindication: N/A - Med Ordered
--- NOTE | 2021-11-21 19:36 | P.DS_ITS ---
DS: Providers Provider Date of Service: 11/21/21 Date of admission: 11/20/21 14:20 Date of discharge: 11/21/21 Primary care physician: Ro Bernal NP Admitting clinician: Sukh Ricketts Attending physician on admission: Dagoberto Contreras Attending physician on discharge: Dagoberto Contreras Discharging clinician: Sukh Ricketts DS: Diagnosis Discharge Diagnosis (1) Acute left-sided weakness: Status: Acute (2) Angioedema of lips: Status: Acute DS: Summary Hospital Course Hospital Course: DISCHARGE DIAGNOSIS 1.Acute angioedema, likely 2? lisinopril.? I?ve advise the family that he should not take lisinopril ever again and he should consult his PCP in regards to further blood pressure management. ?2. Hyponatremia, most likely 2? thiazide diuretics.? I have advised the family that he is probably better off without the thiazide diuretic and his PCP can manage his blood pressure further. ?3. Stable essential hypertension ?4. New onset diabetes not on treatment.? The family knows about this.? I advised them that his PCP would probably start him on oral meds. ?5. Daily alcohol consumption.? I advised the family that he would be much better off discontinuing any alcohol at all in view of possible dementia (below). ?6. COPD with possible mild exacerbation.? No tx indicated. ?7. Normocytic anemia rule out microscopic bleeding, iron deficiency, chronic disease ?8. ? Early dementia.? The son noted to me that his father?s memory is terrible.? Could be early dementia.? I advised him to discuss with his PCP, and that there are medications that may be helpful. ?And this is another reason why stopping alcohol intake is important. HPI / HOSPITAL COURSE Mr. Guzman was admitted to the ICU last night with angioedema of the face. The patient is an 81-year-old male with underlying history of COPD not on home oxygen who is a current smoker, has hypertension, hyperlipidemia, new onset diabetes type 2 not on treatment yet, central obesity, h/o bilateral carotid endarterectomy, left leg stent, prostate cancer post resection, and alcohol use.? He takes Lisinopril-hydrochlorthiazide for HTN. The patient presented to the emergency room yesterday morning with complaints of facial swelling and drooping.? The patient had visited his family that morning and they immediately noted that the left side of his face was swollen somewhat droopy.? They brought him to the emergency room where he had a full workup for the possibility of a stroke.? Head CT revealed no acute pathology; head and neck CT with contrast showed no acute bleed or territorial infarcts, chronic microvascular ischemic changes, extensive paranasal sinus disease with soft tissue fullness and increased attenuation of the subcutaneous fat in the left submandibular region.? Atherosclerotic calcifications of the aortic arch and great vessels of the neck without significant flow limiting stenosis were noted. He was admitted to Medicine w diagnosis of angioedema.? Later on while still in the ED, the left sided facial swelling had improved but he developed facial swelling of the right side of his face, worsened lip swelling, and a feeling of a larger tongue.? The patient was therefore admitted to the ICU for observation. The patient was given Benadryl Solu-Medrol and Pepcid in the ED.? I recommended FFP when Dr. Gupta called me. On admission to the ICU, the patient was feeling much better, and according to the family the swelling was much better.? His laboratory workup did not reveal significant abnormalities other than a sodium of 127. The patient was treated with Benadryl, Solu-Medrol, Pepcid, was also given DuoNeb as he had a little bit of wheezing. ?Around midnight, the patient's swelling did recurs slightly on the right side, Solu-Medrol and Benadryl were given without any major worsening. Laboratories were recheck this morning, his fasting blood sugar was 285 but no treatment was given as the patient is a new onset diabetic.? Sodium has improved to 133 and given that the patient's symptoms resolve, the patient was discharged home by Dr. Contreras. Patient will follow-up with his primary care physician in regards to a review of his medications most particularly his antihypertensive meds (lisinopril/hydrochlorothiazide); patient was advised not to take this medication.? They will also manage this patient's new onset diabetes and he was advised on a ADA diet. Time spent discussing smoking cessation with patient: more than 10 minutes Status at Discharge Functional status at discharge: independent ambulation Overall status at discharge: patient is back to baseline Time Spent with Patient Time attestation: Total time spent providing and/or coordinating discharge services: Discharge coordination time: Greater than 30 minutes Specific discharge activities: Do not take lisinopril Do not take hydrochlorothiazide Follow-up with your primary care physician within a week We recommend a low-carbohydrate diet, exercise and losing weight Please stop smoking Quality: Safe Use of Opioids Does Pt have an Active Cancer Diagnosis on the Problem List?: No Quality: Stroke Does the patient have a stroke diagnosis?: No Physical Exam Vital Signs: Vital Signs: Last Vital Signs Temp 98.9 F 11/21/21 08:00 Pulse 92 11/21/21 11:00 Resp 13 11/21/21 11:00 BP 97/70 11/21/21 11:00 Pulse Ox 93 11/21/21 11:00 BMI result Body Mass Index 27.6 DS: Data Data Completed and Pending Labs on day of discharge: Laboratory Results - last 24 hr 11/20/21 11/20/21 11/21/21 19:07 22:24 05:11 WBC 8.1 RBC 4.27 L Hgb 12.8 L Hct 35.1 L MCV 82.2 MCH 30.0 MCHC 36.5 H RDW 12.2 Plt Count 221 MPV 8.8 L Immature Gran % (Auto) 1.2 H Neut % (Auto) 91.6 H Lymph % (Auto) 5.9 L [place] % (Auto) 1.2 L Eos % (Auto) 0.0 Baso % (Auto) 0.1 Lymph # (Auto) 0.5 L [place] # (Auto) 0.1 Eos # (Auto) 0.0 Baso # (Auto) 0.0 Abs Immat Gran (auto) 0.10 H Absolute Neuts (auto) 7.4 Absolute Nucleated RBC 0.000 Nucleated RBC % (auto) 0.0 Smear Tech's Comments VERIFIED Sodium Potassium Chloride Carbon Dioxide Anion Gap BUN Creatinine Estim Creat Clear Calc Estimated GFR POC Glucose 188 H Random Glucose Estimat Average Glucose Hemoglobin A1c % Calcium Blood Type B Positive Antibody Screen NEGATIVE 11/21/21 11/21/21 11/21/21 05:11 05:11 07:26 WBC RBC Hgb Hct MCV MCH MCHC RDW Plt Count MPV Immature Gran % (Auto) Neut % (Auto) Lymph % (Auto) [place] % (Auto) Eos % (Auto) Baso % (Auto) Lymph # (Auto) [place] # (Auto) Eos # (Auto) Baso # (Auto) Abs Immat Gran (auto) Absolute Neuts (auto) Absolute Nucleated RBC Nucleated RBC % (auto) Smear Tech's Comments Sodium 133 L Potassium 3.8 Chloride 98 Carbon Dioxide 25 Anion Gap 14 BUN 12 Creatinine 0.82 Estim Creat Clear Calc 61.3 Estimated GFR > 60 POC Glucose 200 H Random Glucose 185 H Estimat Average Glucose 140 Hemoglobin A1c % 6.5 Calcium 9.4 Blood Type Antibody Screen 11/21/21 11:19 WBC RBC Hgb Hct MCV MCH MCHC RDW Plt Count MPV Immature Gran % (Auto) Neut % (Auto) Lymph % (Auto) [place] % (Auto) Eos % (Auto) Baso % (Auto) Lymph # (Auto) [place] # (Auto) Eos # (Auto) Baso # (Auto) Abs Immat Gran (auto) Absolute Neuts (auto) Absolute Nucleated RBC Nucleated RBC % (auto) Smear Tech's Comments Sodium Potassium Chloride Carbon Dioxide Anion Gap BUN Creatinine Estim Creat Clear Calc Estimated GFR POC Glucose 285 H Random Glucose Estimat Average Glucose Hemoglobin A1c % Calcium Blood Type Antibody Screen Discharge Plan Discharge Patient Disposition: Home, Self-Care Discharge Diagnosis: Angioedema Referrals: Ro Bernal, [employer] [Primary Care Provider] - 1 Week Discharge Medications: Continued pantoprazole 40 mg tablet,delayed release (DR/EC) 40 mg PO DAILY Qty: 90 1RF trazodone 100 mg tablet 100 mg PO BEDTIME Qty: 90 0RF clopidogrel 75 mg tablet 75 mg PO DAILY Qty: 90 1RF citalopram 20 mg tablet 40 mg PO BEDTIME 0RF amlodipine 10 mg tablet 10 mg PO BEDTIME 0RF atorvastatin 20 mg tablet 20 mg PO DAILY 0RF aspirin [Adult Low Dose Aspirin] 81 mg tablet,delayed release (DR/EC) 81 mg PO DAILY 0RF umeclidinium-vilanterol 62.5-25 mcg/actuation blister with device 1 inh PO DAILY 0RF Discontinued lisinopril-hydrochlorothiazide 20-25 mg tablet 1 tab PO DAILY 0RF Discharge Orders: Discharge Order (Routine); Ordered 11/21/21 Ordered By: Dagoberto Contreras Diet: diabetic diet Activity on Discharge: As tolerated Stand Alone Forms: Patient Portal Discharge page Care Plan Goals: F/U with your doctor Health Concerns: BP and diabetes management, stop drinking, w/u for dementia Plan of Treatment: F/U with your doctor this week Assessment: Angioedema - resolved Discharge Date/Time: 11/21/21 12:30
== END 2021-11-21 12:30 | disposition home or self-care (01) | DRG 916 ==
LOC: HO.ED 13:13 → HO.EDOVER 11-21 08:48 → HO.ICU 11-21 08:48
PROVIDERS: Physician Assistant Medical; Admitting Provider Nurse Practitioner Acute Care; Emergency Provider Emergency Medicine; PCP Nurse Practitioner Family; Visit Provider Nurse Practitioner Acute Care
DX: T78.3XXA Angioneurotic edema, initial encounter (principal); J44.1 Chronic obstructive pulmonary disease with (acute) exacerbation; E87.1 Hypo-osmolality and hyponatremia; E78.5 Hyperlipidemia, unspecified; E11.51 Type 2 diabetes mellitus with diabetic peripheral angiopathy without gangrene; R29.810 Facial weakness; F17.210 Nicotine dependence, cigarettes, uncomplicated; Z71.6 Tobacco abuse counseling; T46.4X5A Adverse effect of angiotensin-converting-enzyme inhibitors, initial encounter; T50.2X5A Adverse effect of carbonic-anhydrase inhibitors, benzothiadiazides and other diuretics, initial encounter; E86.0 Dehydration; D63.8 Anemia in other chronic diseases classified elsewhere; F03.90 Unspecified dementia, unspecified severity, without behavioral disturbance, psychotic disturbance, mood disturbance, and anxiety; I10 Essential (primary) hypertension; Z95.810 Presence of automatic (implantable) cardiac defibrillator; Z20.822 Contact with and (suspected) exposure to COVID-19; Z79.02 Long term (current) use of antithrombotics/antiplatelets; Z79.82 Long term (current) use of aspirin; Z79.899 Other long term (current) drug therapy
CPT/HCPCS: 36415; 70450; 70496; 70498; 71045; 80048; 80076; 82947; 83036; 83735; 84484; 85025; 85610; 85730; 86850; 86900; 86901; 87635; 93005; 94640; 96361; 96374; 96375; 97162; 99220; 99285; 99291; J1200; J2920; J2930; P9017; Q9967

== ENCOUNTER 2022-02-25 09:46 | Emergency (ER) | payer OTHER, MEDICARE, SELFPAY ==
--- NOTE | 2022-02-25 | ECG_ITS ---
Test Reason : cp Blood Pressure : / mmHG Vent. Rate : 079 BPM Atrial Rate : 079 BPM P-R Int : 220 ms QRS Dur : 086 ms QT Int : 362 ms P-R-T Axes : 032 007 071 degrees QTc Int : 415 ms Sinus rhythm with 1st degree A-V block Otherwise normal ECG When compared with ECG of 20-NOV-2021 10:28, No significant change was found Referred By: Generic ED Physician Electronically Signed By:ROSITA ALLAN MD
--- NOTE | ~2022-02-25 | XR_ITS ---
EXAMINATION: XR CHEST CLINICAL INFORMATION: Pain. COMPARISON: 11/20/2021 chest radiograph. TECHNIQUE: Frontal view of the chest was obtained. FINDINGS: No significant abnormality is noted involving the heart, lungs, mediastinum, bony thorax or soft tissues. XR/XR chest 1V IMPRESSION: No acute cardiopulmonary process.
[2022-02-25 09:59] VITALS: BP 146/82; PULSE 83; RESP 18; TEMP 36.5; O2SAT 95; BMI 27.4
--- NOTE | 2022-02-25 10:47 | ED_ITS ---
HPI - Chest Pain General Chief Complaint: Chest Pain Stated Complaint: Chest pain/Nausea Time Seen by Provider: 02/25/22 10:37 Source: patient, RN notes reviewed and old records reviewed Mode of arrival: ambulatory Limitations: no limitations History of Present Illness HPI narrative: 81 yo male, with a past medical history of DMII, COPD, hypertension, DVT on Eliquis, and prostate cancer with prostatectomy, who presents to the emergency department today with complaints of chest tightness, nausea, lightheadedness, and diarrhea for 4 days. He denies any chest pain or palpitations. He has a history of COPD but reports that he is more short of breath than his baseline. He admits to having shortness of breath upon exertion as well as when he is lying flat. He denies any abdominal pain, however on physical examination he does have some epigastric tenderness with palpation. He does report that he drinks alcohol typically 6 cans of beer a day in the morning. He has not had any alcohol in the last 4 days because of his symptoms. He denies ever having etoh withdrawal symptoms in the past. He otherwise denies any fevers, vomiting, syncope or near syncope, headaches, or dizziness. He was hospitalized on 11/20/2021 for acute hyponatremia, otherwise denies any other hospitalizations or recent surgeries. No other complaints or concerns at this time. MD complaint: other (chest tightness) Onset (ago): day(s) (4) Timing of current episode: constant Prior episodes: No Onset: during rest and during exertion Pain location: substernal, left chest and right chest Pain radiation: none Severity: moderate Quality: tightness Relieving factors: nothing Exacerbating factors: nothing Context: history of DVT/PE (on Eliquis) Associated symptoms: nausea and dyspnea Treatment prior to arrival: none Risk Factors Coronary artery disease risk factors: smoking history, hyperlipidemia and hypertension Thoracic aortic dissection risk factors: none Pulmonary embolism risk factors: history of deep vein thrombosis Related Data Home Medications Medication Instructions Recorded Confirmed aspirin 81 mg tablet,delayed 81 mg PO DAILY 03/16/21 11/20/21 release (Adult Low Dose Aspirin) atorvastatin 20 mg tablet 20 mg PO DAILY 03/16/21 11/20/21 umeclidinium 62.5 mcg-vilanterol 1 inh PO DAILY 03/16/21 11/20/21 25 mcg/actuation powdr for inhalation amlodipine 10 mg tablet 10 mg PO BEDTIME 11/20/21 11/20/21 Previous Rx's Medication Instructions Recorded pantoprazole 40 mg tablet,delayed 40 mg PO DAILY #90 tabs 06/22/21 release clopidogrel 75 mg tablet 75 mg PO DAILY #90 tabs 09/12/21 blood sugar diagnostic (FreeStyle #100 ea 11/29/21 Lite Strips) blood-glucose meter (FreeStyle #1 ea 11/29/21 Lite Meter) lancets 28 gauge (FreeStyle #100 ea 11/29/21 Lancets) trazodone 100 mg tablet 100 mg PO BEDTIME #90 tabs 11/30/21 citalopram 20 mg tablet 40 mg PO BEDTIME #90 tabs 01/13/22 albuterol sulfate 90 mcg/actuation 2 inh inhalation QID PRN shortness 02/25/22 aerosol inhaler of breath or wheezing #6.7 grams Allergies Allergy/AdvReac Type Severity Reaction Status Date / Time No Known Allergies Allergy Verified 07/01/21 08:17 [No Known Allergies*] Review of Systems Review of Systems: Constitutional: +Chills, No Fever ENT/Mouth: + dry mouth, No sore throat, No Rhinorrhea, No Swallowing Difficulty Eyes: No Eye Pain, No Swelling, No Redness Cardiovascular: +Chest tightness, +Orthopnea, No Chest Pain, No Edema Respiratory: +Dyspnea, No Cough, No Sputum, No Wheezing, No dyspnea Gastrointestinal: + Nausea, No Vomiting, No Diarrhea, No abdominal Pain, No Hematochezia, No Melena Genitourinary: No Dysuria, No Urinary Frequency, No Hematuria Musculoskeletal: No joint pain, No Myalgias Skin: No Skin Lesions, No rash Neuro: +Lightheadedness, No Weakness, No Numbness, No Dizziness, No Headache Psych: No Anxiety/Panic, No Depression Heme/Lymph: No Bruising, No Lymphadenopathy Endocrine: No Polyuria, No Polydipsia [facility] Past Medical History Medical History (Updated 02/25/22 @ 12:40 by FABI Quigley) COPD (chronic obstructive pulmonary disease) Essential hypertension HTN (hypertension) Hyperlipemia Macular degeneration of right eye Prostate cancer PVD (peripheral vascular disease) Type 2 diabetes mellitus without complications Surgical History (Updated 11/20/21 @ 21:57 by Rubin Boyle RN) History of cataract surgery History of facial surgery History of hernia surgery History of hip replacement History of inguinal hernia repair S/p bilateral carotid endarterectomy Family History Family History Mother No problems noted. Father No problems noted. Social History Social History Household Members: Significant Other Household Members Other:: girlfriend Housing: Apartment Do you presently have visiting nurse or other home services: No Alcohol intake: current Alcohol intake frequency: 3 or more drinks per day Alcohol type: beer Patient Tobacco Use Status: Current everyday Tobacco user Tobacco use type: Cigarette Cigarette Packs Per Day: 0.5 Cigarettes Per Day: 10 e-Cigarette/Vaping Use: Never Used Second Hand Smoke Exposure: No Use of substances other than those prescribed or required for medical reasons: No Advance Directives: Yes Advance Directives Information Provided: Yes Advance Directives on File: No Advance Directives Date on File: 11/20/21 service: Yes ([id number]) Current occupational status: retired Physical Exam Vital Signs: Vital Signs: Last Vital Signs Temp 97.7 F 02/25/22 09:59 Pulse 70 02/25/22 13:28 Resp 18 02/25/22 13:28 BP 156/77 H 02/25/22 13:28 Pulse Ox 97 02/25/22 13:28 O2 Del Method 02/25/22 13:28 BMI result Body Mass Index 27.4 Appearance: Alert. Oriented X3. No acute distress. Eyes: Pupils equal, round and reactive to light. Extraoccular motions intact. ENT: Pharynx normal. Uvula is midline, airway patent, tonsils are nonerythematous, nonedematous, no exudates. TMs are nonerythematous, nonedematous. Neck: Normal inspection. Neck supple. No cervical lymphadenopathy. CVS: Normal heart rate and rhythm. 3/6 systolic murmur auscultated, best heard over the left sternal border. Pulses normal. Respiratory: Lung sounds are diminished throughout all fernandez. No wheezes, rhonchi, or rales. No respiratory distress. Breath sounds normal. Abdomen: Abdomen is soft, with mild tenderness to palpation over the epigastric region, otherwise abdomen is nontender. No rebound or guarding. Normoactive bowel sounds in all 4 quadrants. Skin: Skin warm and dry. Normal skin color. Normal skin turgor. No rashes. Extremities: No lower extremity edema. Neuro: Oriented X 3. No motor deficit. No sensory deficit. Course Course Course Narrative: 1100 81 yo male, with a past medical history of DMII, hypertension, DVT on Eliquis, and prostate cancer with prostatectomy, who presents to the emergency department today with complaints of chest tightness, nausea, lightheadedness, diarrhea for 4 days. DDX include but not limited to viral URI, ACS, COPD exacerbation, CHF. Will obtain cardiac markers as well as a BNP to rule out CHF. Plan: CBC, BMP, liver function panel, BNP, lipase, magnesium, troponin, chest x-ray, EKG ordered. Patient is mildly hypertensive at 146/82, otherwise vital signs are stable. Patient medicated with Zofran 4mg IV. Reevaluation(s) Reevaluation #1: Labs are reassuring at this time and vital signs have remained stable. - Patient has no leukocytosis, electrolytes are within normal limits, and patient has no signs of anemia. Patient has mild hyperglycemia at 138, but does have a history of type 2 diabetes. His liver enzymes are within normal limits, with an ethanol level that is negative. - EKG is normal sinus rhythm with a first-degree AV block, with no ST elevation or depression with now acute ischemic changes noted. - COVID swab is negative today - Chest x-ray still pending at this time will write wait for final reading for discharge. Time: 12:28 Reevaluation #2: - CXR is clear. His workup today is unremarkable and he appears well. VS remain stable. At this time comfortable with discharge home with plan to follow up with PCP. Strict return precautions were discussed. Patient and agree with plan for d/c. MDM - Chest Pain Lab Data Result diagrams: 02/25/22 11:32 02/25/22 11:32 Labs: Lab Results 02/25/22 02/25/22 02/25/22 Range/Units 11:32 11:32 11:32 WBC 6.4 (4.8-10.8) X10*3/uL RBC 4.77 (4.60-5.80) X10*6/uL Hgb 14.5 (14.0-18.0) g/dl Hct 40.6 L (42.0-52.0) % MCV 85.1 (80.0-98.0) fL MCH 30.4 (27.0-33.0) pg MCHC 35.7 (31.0-36.0) g/dl RDW 12.0 (11.0-16.0) % Plt Count 197 (160-400) X10*3/uL MPV 9.0 L (9.4-12.4) fL Immature Gran % (Auto) 0.5 H (0.0-0.4) % Neut % (Auto) 68.5 (45-73) % Lymph % (Auto) 19.4 L (20-40) % [place] % (Auto) 8.8 (2-11) % Eos % (Auto) 1.7 (0-4) % Baso % (Auto) 1.1 (0-2) % Lymph # (Auto) 1.2 (1.2-4.9) X10*3/uL [place] # (Auto) 0.6 (0.1-1.2) X10*3/uL Eos # (Auto) 0.1 (0.0-0.4) X10*3/uL Baso # (Auto) 0.1 (0.0-0.2) X10*3/uL Abs Immat Gran (auto) 0.03 (0.00-0.03) X10*3/uL Absolute Neuts (auto) 4.4 (2.0-8.3) x10*3/uL Absolute Nucleated RBC 0.000 (0.0-0.012) X10*3/uL Nucleated RBC % (auto) 0.0 (0.0-0.2) /100WBC PT 10.9 (10.0-13.1) SEC INR 1.0 (0.9-1.1) Sodium 134 L (135-145) mmol/L Potassium 4.7 D (3.3-5.1) mmol/L Chloride 100 (96-108) mmol/L Carbon Dioxide 26 (22-29) mmol/L Anion Gap 13 (12-20) BUN 14 (9-16) mg/dL Creatinine 0.81 (0.5-1.4) mg/dL Estim Creat Clear Calc 61.9 Estimated GFR > 60 Random Glucose 138 H (60-115) mg/dL Calcium 9.4 (8.4-10.2) mg/dL Magnesium 1.9 (1.6-2.6) mg/dL Total Bilirubin 1.0 (0.0-1.0) mg/dL Direct Bilirubin 0.5 (0.0-0.5) mg/dL AST 24 (5-37) U/L ALT 33 (0-40) U/L Alkaline Phosphatase 90 (39-117) U/L Troponin I High Sens (<3.5-35.0) ng/L B-Natriuretic Peptide (<100) pg/mL Total Protein 7.4 (6.5-8.0) g/dL Albumin 4.6 (3.5-5.0) g/dL Lipase 26 (8-78) U/L Ethyl Alcohol mg/dL COVID-19 ([facility]IA) (Negative) COVID-19 Clin Com 02/25/22 02/25/22 02/25/22 Range/Units 11:32 11:32 11:32 WBC (4.8-10.8) X10*3/uL RBC (4.60-5.80) X10*6/uL Hgb (14.0-18.0) g/dl Hct (42.0-52.0) % MCV (80.0-98.0) fL MCH (27.0-33.0) pg MCHC (31.0-36.0) g/dl RDW (11.0-16.0) % Plt Count (160-400) X10*3/uL MPV (9.4-12.4) fL Immature Gran % (Auto) (0.0-0.4) % Neut % (Auto) (45-73) % Lymph % (Auto) (20-40) % Paulding % (Auto) (2-11) % Eos % (Auto) (0-4) % Baso % (Auto) (0-2) % Lymph # (Auto) (1.2-4.9) X10*3/uL [place] # (Auto) (0.1-1.2) X10*3/uL Eos # (Auto) (0.0-0.4) X10*3/uL Baso # (Auto) (0.0-0.2) X10*3/uL Abs Immat Gran (auto) (0.00-0.03) X10*3/uL Absolute Neuts (auto) (2.0-8.3) x10*3/uL Absolute Nucleated RBC (0.0-0.012) X10*3/uL Nucleated RBC % (auto) (0.0-0.2) /100WBC PT (10.0-13.1) SEC INR (0.9-1.1) Sodium (135-145) mmol/L Potassium (3.3-5.1) mmol/L Chloride (96-108) mmol/L Carbon Dioxide (22-29) mmol/L Anion Gap (12-20) BUN (9-16) mg/dL Creatinine (0.5-1.4) mg/dL Estim Creat Clear Calc Estimated GFR Random Glucose (60-115) mg/dL Calcium (8.4-10.2) mg/dL Magnesium (1.6-2.6) mg/dL Total Bilirubin (0.0-1.0) mg/dL Direct Bilirubin (0.0-0.5) mg/dL AST (5-37) U/L ALT (0-40) U/L Alkaline Phosphatase (39-117) U/L Troponin I High Sens 3.8 (<3.5-35.0) ng/L B-Natriuretic Peptide 29 (<100) pg/mL Total Protein (6.5-8.0) g/dL Albumin (3.5-5.0) g/dL Lipase (8-78) U/L Ethyl Alcohol mg/dL COVID-19 ([facility]ESHIA) Negative (Negative) COVID-19 Clin Com See Note 02/25/22 Range/Units 11:32 WBC (4.8-10.8) X10*3/uL RBC (4.60-5.80) X10*6/uL Hgb (14.0-18.0) g/dl Hct (42.0-52.0) % MCV (80.0-98.0) fL MCH (27.0-33.0) pg MCHC (31.0-36.0) g/dl RDW (11.0-16.0) % Plt Count (160-400) X10*3/uL MPV (9.4-12.4) fL Immature Gran % (Auto) (0.0-0.4) % Neut % (Auto) (45-73) % Lymph % (Auto) (20-40) % Paul[place] % (Auto) (2-11) % Eos % (Auto) (0-4) % Baso % (Auto) (0-2) % Lymph # (Auto) (1.2-4.9) X10*3/uL [place] # (Auto) (0.1-1.2) X10*3/uL Eos # (Auto) (0.0-0.4) X10*3/uL Baso # (Auto) (0.0-0.2) X10*3/uL Abs Immat Gran (auto) (0.00-0.03) X10*3/uL Absolute Neuts (auto) (2.0-8.3) x10*3/uL Absolute Nucleated RBC (0.0-0.012) X10*3/uL Nucleated RBC % (auto) (0.0-0.2) /100WBC PT (10.0-13.1) SEC INR (0.9-1.1) Sodium (135-145) mmol/L Potassium (3.3-5.1) mmol/L Chloride (96-108) mmol/L Carbon Dioxide (22-29) mmol/L Anion Gap (12-20) BUN (9-16) mg/dL Creatinine (0.5-1.4) mg/dL Estim Creat Clear Calc Estimated GFR Random Glucose (60-115) mg/dL Calcium (8.4-10.2) mg/dL Magnesium (1.6-2.6) mg/dL Total Bilirubin (0.0-1.0) mg/dL Direct Bilirubin (0.0-0.5) mg/dL AST (5-37) U/L ALT (0-40) U/L Alkaline Phosphatase (39-117) U/L Troponin I High Sens (<3.5-35.0) ng/L B-Natriuretic Peptide (<100) pg/mL Total Protein (6.5-8.0) g/dL Albumin (3.5-5.0) g/dL Lipase (8-78) U/L Ethyl Alcohol < 10 mg/dL COVID-19 ([facility]ESHIA) (Negative) COVID-19 Clin Com ECG Data ECG #1: Attestation: I personally reviewed and interpreted this ECG as follows: ECG interpretation date: 02/25/22 ECG interpretation time: 09:47 Prior ECG tracings: available for review Interpretation: Sinus rhythm with 1st degree AV block with a ventricular rate of 79bpm. W[place] inte rval 220 ms. QT/QTC 362/415ms. No ST elevation or depression. No acute ischemic changes. Critical Care Time Critical Care Time Critical Care Time: No Discharge Plan Discharge Clinical Impression: Atypical chest pain Patient Disposition: Home, Self-Care Instructions: Noncardiac Chest Pain (ED) Additional Instructions: Your lab work today was unremarkable. You are negative for COVID-19. Your chest x-ray did not show any pneumonia. Please follow up with your primary care physician next week. If you develop new or worsening symptoms call 911 or come back to the ER for further evaluation. Prescriptions: New albuterol sulfate 90 mcg/actuation HFA aerosol inhaler 2 inh inhalation QID PRN (Reason: shortness of breath or wheezing) Qty: 6.7 0RF No Action pantoprazole 40 mg tablet,delayed release (DR/EC) 40 mg PO DAILY Qty: 90 1RF clopidogrel 75 mg tablet 75 mg PO DAILY Qty: 90 1RF (DME) lancets [FreeStyle Lancets] 28 gauge misc See Rx Instructions .Route Qty: 100 0RF Rx Instructions: Test once daily (DME) blood-glucose meter [FreeStyle Lite Meter] Kit See Rx Instructions .Route Qty: 1 0RF Rx Instructions: As directed (DME) FreeStyle Lite Strips Strip See Rx Instructions .Route Qty: 100 0RF Rx Instructions: Test once daily trazodone 100 mg tablet 100 mg PO BEDTIME Qty: 90 0RF citalopram 20 mg tablet 40 mg PO BEDTIME Qty: 90 1RF amlodipine 10 mg tablet 10 mg PO BEDTIME atorvastatin 20 mg tablet 20 mg PO DAILY aspirin [Adult Low Dose Aspirin] 81 mg tablet,delayed release (DR/EC) 81 mg PO DAILY umeclidinium-vilanterol 62.5-25 mcg/actuation blister with device 1 inh PO DAILY Referrals: Luc Oliveira MD [Physician] - ([facility]) Interventions: ED Discharge Assessment Last Done: 02/25/22 13:30 Discharge Date/Time: 02/25/22 13:31
[2022-02-25 10:58] VITALS: BP 134/72; PULSE 68; RESP 18; O2SAT 98
[2022-02-25 11:34] VITALS: BP 144/78; PULSE 74; RESP 18; O2SAT 96
--- NOTE | 2022-02-25 11:36 | PC.NURSE ---
rESTING QUIETLY IN BED. UNLABORED RESP. NSR ON MONITOR. STATES CHEST TIGHTNESS IS CONSISTENT. ALSO REPORTS ERWIN. PT IS DAILY SMOKER AND DRINKER. AM DRINKER. NO TREMORS. NO PEDAL EDEMA.
[2022-02-25 11:41] LABS: MANUAL DIFF FLAG NO
[2022-02-25 11:50] LABS: Basophils Absolute Auto 0.1 X10*3/uL (0.0-0.2); Basophils Percent Auto 1.1 % (0-2); Eosinophils Absolute Auto 0.1 X10*3/uL (0.0-0.4); Eosinophils Percent Auto 1.7 % (0-4); Hematocrit 40.6 % (42.0-52.0); Hemoglobin 14.5 g/dl (14.0-18.0); Imm Gran Abs Auto 0.03 X10*3/uL (0.00-0.03); Imm Gran Pct Auto 0.5 % (0.0-0.4); Lymphocytes Absolute Auto 1.2 X10*3/uL (1.2-4.9); Lymphocytes Percent Auto 19.4 % (20-40); Mean Corpuscular HGB Conc 35.7 g/dl (31.0-36.0); Mean Corpuscular Hemoglobin 30.4 pg (27.0-33.0); Mean Corpuscular Volume 85.1 fL (80.0-98.0); Monocytes Absolute Auto 0.6 X10*3/uL (0.1-1.2); Monocytes Percent Auto 8.8 % (2-11); Neutrophils Absolute Auto 4.4 x10*3/uL (2.0-8.3); Neutrophils Percent Auto 68.5 % (45-73); Platelet Count 197 X10*3/uL (160-400); Red Blood Count 4.77 X10*6/uL (4.60-5.80); White Blood Count 6.4 X10*3/uL (4.8-10.8)
[2022-02-25 11:54] LABS: Prothrombin Time 10.9 SEC (10.0-13.1)
[2022-02-25] MEDS: ondansetron HCL 4 MG/2 ML VIAL IVPUSH (11:54)
[2022-02-25 12:03] LABS: COVID-19 Test Negative (Negative); Ethanol < 10 mg/dL
[2022-02-25 12:05] LABS: B Type Natriuretic Peptide 29 pg/mL (<100); Troponin-I High Sensitivity 3.8 ng/L (<3.5-35.0)
[2022-02-25 12:08] LABS: Alanine Aminotransferase 33 U/L (0-40); Albumin Level 4.6 g/dL (3.5-5.0); Alkaline Phosphatase 90 U/L (39-117); Anion Gap 13 (12-20); Aspartate Amino Transferase 24 U/L (5-37); Bilirubin Direct 0.5 mg/dL (0.0-0.5); Blood Urea Nitrogen 14 mg/dL (9-16); Calcium 9.4 mg/dL (8.4-10.2); Carbon Dioxide 26 mmol/L (22-29); Chloride 100 mmol/L (96-108); Creatinine Clr Calc Pharmacy 61.9; Estimated Glomerular Filt Rate > 60; Glucose Random 138 mg/dL (60-115); Lipase 26 U/L (8-78); Magnesium 1.9 mg/dL (1.6-2.6); Potassium 4.7 mmol/L (3.3-5.1); Sodium 134 mmol/L (135-145); Total Protein 7.4 g/dL (6.5-8.0)
[2022-02-25 13:28] VITALS: BP 156/77; PULSE 70; RESP 18; O2SAT 97
== END 2022-02-25 13:31 | disposition home or self-care (01) ==
PROVIDERS: Physician Assistant; Emergency Provider Emergency Medicine; PCP Nurse Practitioner Family
DX: R07.89 Other chest pain (principal); R06.02 Shortness of breath; Z20.822 Contact with and (suspected) exposure to COVID-19; E11.9 Type 2 diabetes mellitus without complications; I10 Essential (primary) hypertension; Z86.718 Personal history of other venous thrombosis and embolism; Z79.01 Long term (current) use of anticoagulants; F17.200 Nicotine dependence, unspecified, uncomplicated
CPT/HCPCS: 36415; 71045; 80048; 80076; 82077; 83690; 83735; 83880; 84484; 85025; 85610; 87635; 93005; 96374; 99284; J2405

== ENCOUNTER 2022-02-28 08:23 | Outpatient (REF) | payer OTHER, SELFPAY ==
[2022-02-28 08:48] LABS: MANUAL DIFF FLAG NO
[2022-02-28 09:07] LABS: Basophils Absolute Auto 0.1 X10*3/uL (0.0-0.2); Basophils Percent Auto 0.9 % (0-2); Eosinophils Absolute Auto 0.2 X10*3/uL (0.0-0.4); Eosinophils Percent Auto 2.4 % (0-4); Hematocrit 39.9 % (42.0-52.0); Hemoglobin 14.4 g/dl (14.0-18.0); Imm Gran Abs Auto 0.03 X10*3/uL (0.00-0.03); Imm Gran Pct Auto 0.4 % (0.0-0.4); Lymphocytes Absolute Auto 1.1 X10*3/uL (1.2-4.9); Mean Corpuscular HGB Conc 36.1 g/dl (31.0-36.0); Mean Corpuscular Hemoglobin 30.8 pg (27.0-33.0); Mean Corpuscular Volume 85.4 fL (80.0-98.0); Mean Platelet Volume 9.7 fL (9.4-12.4); Monocytes Absolute Auto 0.7 X10*3/uL (0.1-1.2); Monocytes Percent Auto 10.4 % (2-11); Neutrophils Absolute Auto 4.6 x10*3/uL (2.0-8.3); Neutrophils Percent Auto 68.9 % (45-73); Platelet Count 214 X10*3/uL (160-400); Red Blood Count 4.67 X10*6/uL (4.60-5.80); White Blood Count 6.7 X10*3/uL (4.8-10.8)
[2022-02-28 09:41] LABS: Alanine Aminotransferase 37 U/L (0-40); Albumin Level 4.6 g/dL (3.5-5.0); Alkaline Phosphatase 81 U/L (39-117); Anion Gap 14 (12-20); Aspartate Amino Transferase 26 U/L (5-37); Bilirubin Total 1.4 mg/dL (0.0-1.0); Blood Urea Nitrogen 16 mg/dL (9-16); Calcium 9.8 mg/dL (8.4-10.2); Carbon Dioxide 25 mmol/L (22-29); Chloride 97 mmol/L (96-108); Estimated Glomerular Filt Rate > 60; Glucose Random 166 mg/dL (60-115); Potassium 4.5 mmol/L (3.3-5.1); Sodium 131 mmol/L (135-145); Total Protein 7.4 g/dL (6.5-8.0)
== END 2022-02-28 08:24 | disposition home or self-care (01) ==
LOC: HO.LAB 08:23
PROVIDERS: Visit Provider Physician Assistant
DX: K21.9 Gastro-esophageal reflux disease without esophagitis (principal); R11.0 Nausea; R10.13 Epigastric pain; Z79.899 Other long term (current) drug therapy
CPT/HCPCS: 36415; 80053; 85025; 99212

== ENCOUNTER 2022-03-08 08:18 | Outpatient (REF) | payer OTHER, MEDICARE, SELFPAY ==
--- NOTE | ~2022-03-08 | US_ITS ---
EXAMINATION: Noninvasive assessment of the bilateral lower extremities with ARTERIAL DUPLEX and ANKLE BRACHIAL INDICES (ABIs). ? CLINICAL INFORMATION: Peripheral vascular disease ? TECHNIQUE: Duplex Doppler techniques with waveform analysis and measurement of velocities in the bilateral common femoral, profunda femoris, superficial femoral, popliteal and tibial arteries were performed. Additionally, ankle pulse volume recordings, ankle pressure measurements and ankle brachial indices were obtained of the lower extremity arterial system bilaterally. The study was performed only at rest. ? COMPARISON: 10/05/2020 ? FINDINGS: ? DIRECT DUPLEX DOPPLER FINDINGS: ? RIGHT LEG: Common femoral artery:?193 cm/s, phasicity: Triphasic. Mild calcified plaque Profunda femoris artery:??95 cm/s, phasicity: Biphasic Superficial femoral artery (proximal):?96 cm/s, phasicity: Biphasic Superficial femoral artery (mid):?96 cm/s, phasicity: Biphasic Superficial femoral artery (distal):?99 cm/s, phasicity: Triphasic Popliteal artery:?334 cm/s, phasicity: Biphasic. Calcified plaque Posterior tibial artery:?86 cm/s, phasicity: Triphasic Peroneal artery:?37.3 cm/s, phasicity: Biphasic ? LEFT LEG: Common femoral artery:?154 cm/s, phasicity: Triphasic Profunda femoris artery:?177?cm/s, phasicity: Biphasic Superficial femoral artery (proximal):?158?cm/s, phasicity: Triphasic Superficial femoral artery (mid):?123 cm/s, phasicity: Triphasic Superficial femoral artery (distal):?170?cm/s, phasicity: Triphasic Popliteal artery:?145?cm/s, phasicity: Biphasic. Mild calcified plaque Posterior tibial artery:?116?cm/s, phasicity: Triphasic Peroneal artery:?68 cm/s, phasicity: Biphasic ANKLE-BRACHIAL INDEX: ? Right: 0.99? Left: 1.24 ? ANKLE PRESSURES: ? Right: PT 142, DP?135?? Left: PT?178, DP?169?? ? ANKLE PVR WAVEFORMS: ? Right: Normal Left: Normal? ? Right leg:???Normal ankle brachial index. Elevated velocity in the popliteal artery consistent with moderate to severe stenosis. No significant change ? Left leg:???Normal ankle brachial index and arterial waveforms. No significant stenosis ? ?? ALFONSO Reference: - >1.4 = calcified vessels - 0.9 - 1.4 = normal - no significant arterial disease - 0.7 - 0.89 = mild peripheral arterial disease - 0.51 - 0.69 = moderate peripheral arterial disease - ? 0.50 = severe peripheral arterial disease - < .30 = critical arterial disease US/US arterial duplex LE BI IMPRESSION: ?
== END 2022-03-08 08:19 | disposition home or self-care (01) ==
LOC: HO.US 08:18
PROVIDERS: Visit Provider Surgery Vascular Surgery
DX: I73.9 Peripheral vascular disease, unspecified (principal)
CPT/HCPCS: 93923; 93925

== ENCOUNTER → 2022-05-05 12:58 | Outpatient (BNVA) | payer OTHER, SELFPAY | PROVIDERS: PCP Nurse Practitioner Family; Visit Provider Surgery Vascular Surgery | DX: I73.9 Peripheral vascular disease, unspecified (principal); I83.11 Varicose veins of right lower extremity with inflammation | CPT/HCPCS: 99212 ==

== ENCOUNTER 2022-07-04 12:43 | Outpatient (REF) | payer OTHER, SELFPAY ==
--- NOTE | ~2022-07-04 | US_ITS ---
EXAMINATION: US LOWER EXTREMITY VENOUS (REFLUX EXAM), BILATERAL CLINICAL INDICATION: Varicose veins COMPARISON: Left lower extremity venous duplex on 06/09/2020 TECHNIQUE: Color flow triplex imaging and compression Doppler was performed to evaluate both the deep and the superficial systems bilaterally. To evaluate the superficial system, the examination was performed in the upright position. Color-flow Doppler ultrasound and compression ultrasound were utilized. In addition, maneuvers were utilized to demonstrate reflux. FINDINGS: 1. DEEP VENOUS ULTRASOUND OF THE RIGHT LOWER EXTREMITY: Common Femoral Vein: Compressible, normal respiratory variation and augmented flow. Femoral Vein: Compressible, normal color flow and augmentation. Popliteal Vein: Compressible, normal augmentation. Deep Reflux: There is no evidence of reflux in the deep system in either the common femoral vein or the popliteal vein. There is no evidence of a Araiza's cyst. 2. SUPERFICIAL ULTRASOUND WITH DOPPLER OF RIGHT LOWER EXTREMITY: GREAT SAPHENOUS VEIN: Saphenofemoral Junction: 0.5 cm; Reflux: 0 ms Proximal Thigh: 0.4 cm; Reflux: 0 ms Mid Thigh: 0.3 cm; Reflux: 0 ms Above Knee: 0.2 cm; Reflux: 0 ms At Knee: 0.3 cm; Reflux: 0 ms Below Knee: 0.3 cm; Reflux: 3424 ms Mid Calf: 0.2 cm; Reflux: 0 ms Ankle: 0.3 cm; Reflux: 0 ms DUPLICATED MEDIAL GREAT SAPHENOUS VEIN: Diameter: None Imaged Reflux: NA DUPLICATED LATERAL GREAT SAPHENOUS VEIN: Diameter: None Imaged Reflux: NA SMALL SAPHENOUS VEIN: Proximal: 0.4 cm; Reflux: 0 ms Distal: 0.2 cm; Reflux: 0 ms VEIN OF GIACOMINI: None Imaged. PERFORATORS: Location: None Imaged Size: NA Reflux: NA VARICOSITIES: Location: None Imaged Size: NA Reflux: NA 3. DEEP VENOUS ULTRASOUND OF THE LEFT LOWER EXTREMITY: Common Femoral Vein: Compressible, normal respiratory variation and augmented flow. Femoral Vein: Compressible, normal color flow and augmentation. Popliteal Vein: Compressible, normal augmentation. Deep Reflux: There is no evidence of reflux in the deep system in either the common femoral vein or the popliteal vein. There is no evidence of a Araiza's cyst. 4. SUPERFICIAL ULTRASOUND WITH DOPPLER OF LEFT LOWER EXTREMITY: GREAT SAPHENOUS VEIN: Saphenofemoral Junction: 0.8 cm; Reflux: 0 ms Proximal Thigh: 0.2 cm; Reflux: 1900 ms Mid Thigh: 0.3 cm; Reflux: 1056 ms Above Knee: 0.3 cm; Reflux: 0 ms At Knee: 0.3 cm; Reflux: 0 ms Below Knee: 0.2 cm; Reflux: 0 ms Mid Calf: 0.2 cm; Reflux: 0 ms Ankle: 0.2 cm; Reflux: 0 ms DUPLICATED MEDIAL GREAT SAPHENOUS VEIN: Diameter: None Imaged Reflux: NA DUPLICATED LATERAL GREAT SAPHENOUS VEIN: Diameter: 0.2 cm Reflux: NA SMALL SAPHENOUS VEIN: Proximal: 0.2 cm; Reflux: 0 ms Distal: 0.2 cm; Reflux: 0 ms VEIN OF GIACOMINI: None Imaged. PERFORATORS: Location: None Imaged Size: NA Reflux: NA VARICOSITIES: Location: None Imaged Size: NA Reflux: NA US/US venous duplex LE BI IMPRESSION: Left lower extremity: Left great saphenous venous insufficiency in the thigh. Right lower extremity: Left great saphenous vein reflux below the knee.
== END 2022-07-04 12:44 | disposition home or self-care (01) ==
LOC: HO.US 12:43
PROVIDERS: PCP Nurse Practitioner Gerontology; Visit Provider Surgery Vascular Surgery
DX: I83.11 Varicose veins of right lower extremity with inflammation (principal)
CPT/HCPCS: 93970

== ENCOUNTER → 2022-07-07 11:06 | Outpatient (BNVA) | payer OTHER, SELFPAY | PROVIDERS: PCP Nurse Practitioner Gerontology; Visit Provider Surgery Vascular Surgery | DX: I83.12 Varicose veins of left lower extremity with inflammation (principal) | CPT/HCPCS: 99212 ==

== ENCOUNTER → 2022-07-29 07:16 | Outpatient (BNVA) | payer OTHER, SELFPAY | PROVIDERS: PCP Nurse Practitioner Gerontology; Visit Provider Surgery Vascular Surgery | DX: I83.12 Varicose veins of left lower extremity with inflammation (principal) | CPT/HCPCS: 36482 ==

== ENCOUNTER 2022-08-01 14:30 | Outpatient (REF) | payer OTHER, SELFPAY ==
--- NOTE | ~2022-08-01 | US_ITS ---
EXAMINATION: US VENOUS ULTRASOUND WITH DOPPLER LOWER EXTREMITY, LEFT CLINICAL INFORMATION: Post vena seal procedure COMPARISON: Previous exam most recent 07/04/2022 TECHNIQUE: Ultrasound of the deep veins is performed from the hip to the calf with compression sonography and color and pulse Doppler assessment. Spectral analysis with color-flow imaging is performed. FINDINGS: There is normal venous compression and respiratory variation and augmented flow. The visualized common femoral vein, superficial femoral vein, profunda femoral vein, popliteal vein, and the trifurcation region shows no evidence of deep venous thrombosis. There is echogenic material seen in the left greater saphenous vein post vena seal procedure. This extends to 1.1 cm from the saphenofemoral junction. Left greater saphenous vein is closed. US/US venous duplex LE LT IMPRESSION: No DVT demonstrated in the left lower extremity.
== END 2022-08-01 14:31 | disposition home or self-care (01) ==
LOC: HO.US 14:30
PROVIDERS: Visit Provider Surgery Vascular Surgery
DX: M79.605 Pain in left leg (principal)
CPT/HCPCS: 93971

== ENCOUNTER → 2022-08-16 10:54 | Outpatient (BNVA) | payer OTHER, SELFPAY | PROVIDERS: PCP Nurse Practitioner Gerontology; Visit Provider Surgery Vascular Surgery | DX: I83.11 Varicose veins of right lower extremity with inflammation (principal); I83.12 Varicose veins of left lower extremity with inflammation; Z98.890 Other specified postprocedural states | CPT/HCPCS: 99212 ==

== ENCOUNTER → 2022-08-19 08:13 | Outpatient (BNVA) | payer OTHER, SELFPAY | PROVIDERS: PCP Nurse Practitioner Gerontology; Visit Provider Surgery Vascular Surgery | DX: I83.11 Varicose veins of right lower extremity with inflammation (principal) | CPT/HCPCS: 36482 ==

== ENCOUNTER 2022-09-02 15:45 | Outpatient (REF) | payer OTHER, SELFPAY ==
--- NOTE | ~2022-09-02 | US_ITS ---
EXAMINATION: US VENOUS ULTRASOUND WITH DOPPLER LOWER EXTREMITY, RIGHT CLINICAL INFORMATION: Status post right leg Venaseal rule out DVT COMPARISON: None TECHNIQUE: Ultrasound of the deep veins is performed from the hip to the calf with compression sonography and color and pulse Doppler assessment. Spectral analysis with color-flow imaging is performed. FINDINGS: There is normal venous compression and respiratory variation and augmented flow. The visualized common femoral vein, superficial femoral vein, profunda femoral vein, popliteal vein, and the trifurcation region shows no evidence of deep venous thrombosis. There is no significant popliteal fossa cyst. There is expected occlusion of the greater saphenous vein status post Venaseal. If the patient's symptoms persist, followup ultrasound in 5 days 7 days might be of value to exclude proximal propagation from a non-visualized calf vein. US/US venous duplex LE RT IMPRESSION: There is expected occlusion of the greater saphenous vein status post Venaseal procedure. No evidence of deep venous thrombus.
== END 2022-09-02 15:46 | disposition home or self-care (01) ==
LOC: HO.US 15:45
PROVIDERS: PCP Nurse Practitioner Gerontology; Visit Provider Surgery Vascular Surgery
DX: M79.604 Pain in right leg (principal)
CPT/HCPCS: 93971

== ENCOUNTER → 2022-09-06 09:07 | Outpatient (BNVA) | payer OTHER, SELFPAY | PROVIDERS: PCP Nurse Practitioner Gerontology; Visit Provider Surgery Vascular Surgery | DX: I65.23 Occlusion and stenosis of bilateral carotid arteries (principal); I83.11 Varicose veins of right lower extremity with inflammation; I83.12 Varicose veins of left lower extremity with inflammation; I73.9 Peripheral vascular disease, unspecified | CPT/HCPCS: 99212 ==

== ENCOUNTER → 2022-09-26 12:51 | Outpatient (BNVA) | payer OTHER, SELFPAY | PROVIDERS: PCP Nurse Practitioner Gerontology; Visit Provider Internal Medicine Cardiovascular Disease | DX: I35.0 Nonrheumatic aortic (valve) stenosis (principal); Z79.02 Long term (current) use of antithrombotics/antiplatelets; Z79.899 Other long term (current) drug therapy | CPT/HCPCS: 93005; 99202 ==

== ENCOUNTER 2022-09-29 07:15 | Outpatient (REF) | payer OTHER, SELFPAY ==
[2022-09-29 07:43] LABS: Hematocrit 40.1 % (42.0-52.0); Hemoglobin 14.1 g/dl (14.0-18.0); Mean Corpuscular HGB Conc 35.2 g/dl (31.0-36.0); Mean Corpuscular Hemoglobin 30.4 pg (27.0-33.0); Mean Corpuscular Volume 86.4 fL (80.0-98.0); Mean Platelet Volume 9.3 fL (9.4-12.4); Platelet Count 209 X10*3/uL (160-400); Red Blood Count 4.64 X10*6/uL (4.60-5.80); Red Cell Distribution Width 12.6 % (11.0-16.0)
[2022-09-29 07:53] LABS: INTERNATIONAL NORM RATIO 0.9 (0.9-1.1); Prothrombin Time 10.2 SEC (10.0-13.1)
[2022-09-29 08:11] LABS: B Type Natriuretic Peptide 39 pg/mL (<100)
[2022-09-29 09:03] LABS: Anion Gap 20 (12-20); Blood Urea Nitrogen 12 mg/dL (9-16); Calcium 9.7 mg/dL (8.4-10.2); Carbon Dioxide 22 mmol/L (22-29); Chloride 99 mmol/L (96-108); Estimated Glomerular Filt Rate > 60; Glucose Random 162 mg/dL (60-115); Potassium 4.8 mmol/L (3.3-5.1); Sodium 136 mmol/L (135-145)
== END 2022-09-29 07:16 | disposition home or self-care (01) ==
LOC: HO.LAB 07:15
PROVIDERS: PCP Nurse Practitioner Gerontology; Visit Provider Internal Medicine Cardiovascular Disease
DX: I35.0 Nonrheumatic aortic (valve) stenosis (principal)
CPT/HCPCS: 36415; 80048; 83880; 85027; 85610

== ENCOUNTER → 2022-11-07 12:43 | Outpatient (BNVA) | payer OTHER, SELFPAY | PROVIDERS: PCP Nurse Practitioner Gerontology; Visit Provider Internal Medicine Cardiovascular Disease | DX: I35.0 Nonrheumatic aortic (valve) stenosis (principal); R06.02 Shortness of breath; I25.10 Atherosclerotic heart disease of native coronary artery without angina pectoris | CPT/HCPCS: 99212 ==

== ENCOUNTER → 2023-02-14 09:43 | Outpatient (REF) | payer MEDICARE, SELFPAY ==
--- NOTE | 2023-02-14 09:48 | CA_ITS ---
Transthoracic Echocardiogram Patient (Last, First, Middle): Amaury Guzman, Gender: Male Date of : 1940 Age: 82 Procedure Date: 02/14/2023 Procedure Type: Transthoracic Echocardiogram Location: OP Height: 157.48 cm Weight: 65.77 kg BSA: 1.67 m2 Heart Rate: bpm BP: 113 / 81 mmHg Entry Level Account Manager: IGLESIA Referring MD: Celio Barney MD Symptoms: S/P TAVR / Study Quality: Fair ECG Rhythm: Sinus Conclusions: - The left ventricular systolic function is normal. The visually estimated ejection fraction is between 65-70%. - A bioprosthetic aortic valve is present. The prosthetic aortic valve appears to be functioning normally. - There is severe septal and severe basal asymmetric hypertrophy. Findings Left Ventricle Normal left ventricular cavity size. There is mildly increased left ventricular wall thickness. The left ventricular systolic function is normal. The visually estimated ejection fraction is between 65-70%. There is no evidence of regional wall motion abnormalities. Diastolic function is indeterminate on the basis of available data. There is severe septal and severe basal asymmetric hypertrophy. Right Ventricle Normal right ventricular cavity size and systolic function. Atria The left atrium is likely dilated. The right atrium is normal in size. Aortic Valve A bioprosthetic aortic valve is present. The prosthetic aortic valve appears to be functioning normally. The mean gradient is 8 mmHg. There is trace (trivial) aortic valve regurgitation. Difficult to assess if para-valvular. Mitral Valve There is mild mitral annular calcification. There is trace mitral valve regurgitation. There is no mitral valve stenosis. Pulmonic Valve The pulmonic valve is likely normal. Tricuspid Valve There is trace tricuspid valve regurgitation. There is no evidence of pulmonary hypertension. Great Vessels The asc aorta is normal in size. Venous The inferior vena cava is normal in size and collapses greater than 50% with inspiration. Pericardium/Pleural There is no evidence of pericardial effusion. Prior Study Comparison No prior study available for comparison. s/p TAVR. Measurements 2D Linear Measurements IVSd: 1.24 0.6-0.9/0.6-1.0 cm LVIDd: 3.53 3.9-5.3/4.2-5.9 cm LVIDd Index: 2.11 2.4-3.2/2.2-3.1 cm/m2 LVIDs: 2.35 2.0-3.6 cm LVPWd: 1.21 0.7-1.1 cm LA Diam: 3.80 2.7-3.8/3.0-4.0 cm LAIDs Index: 2.28 1.5-2.3 cm/m2 LV Mass: 176.65 67-162/88-224 g LV Mass Index: 105.78 43-95/49-115 g/m2 LVOT Diam: 2.30 3.0+(-)1.3 cm 2D Systolic Function EF 4C: 63.40 >55% EF 2C: 67.80 >55% EF BiP: 64.00 >55% Mitral Valve MV VTI: 0.28 MV Pk Derrell: 1.45 MV Mn Derrell: 0.68 MV Pk Grad: 8.00 MV Mn Grad: 2.00 MV Pk E: 0.57 MV PK A: 1.07 MV Decel Time: 314.00 E/A: 0.50 E'Lateral: 7.62 E'Medial: 3.59 E/E' Med: 15.80 E/E' Lat: 7.50 PHT: 92.00 MVA PHT: 2.39 MVA Continuity: 3.85 Decel Loíza: 1.81 Aortic Valve AoV Pk Derrell: 2.04 AoV Mn Derrell: 1.35 AoV VTI: 0.35 AoV Pk Grad: 17.00 Aov Mn Grad: 8.00 BLAISE Cont.VTI: 3.12 LVOT LVOT Pk Derrell: 1.39 LVOT Mn Derrell: 0.84 LVOT VTI: 0.26 LVOT Pk Grad: 8.00 LVOT Mn Grad: 3.00 LVOT Diam: 2.30 LVOT Area: 4.15 Diastolic Function MV Pk E: 0.57 MV Pk A: 1.07 E/A: 0.50 E'Medial: 3.59 E/E' Med: 15.80 E' Laterial: 7.62 E/E' Lat: 7.50 Right Ventricle TAPSE (mm): 19.50 TVS' Derrell: 12.20 Tricuspid Valve TR Pk Derrell: 2.39 TR Pk Grad: 23.00 RA Press: 3.00 RVSP: 26.00 Great Vessels Aorta Ao Asc: 3.70 2.1-3.4 cm Updated in Other Vendor System with Status of Final Mahad Godwin MD electronically signed on 02/15/2023 10:52:37 AM with status of Final
== END ==
LOC: HO.CARD 09:43
PROVIDERS: PCP Nurse Practitioner Gerontology; Visit Provider Internal Medicine Cardiovascular Disease
DX: Z95.3 Presence of xenogenic heart valve (principal)
CPT/HCPCS: 93306

== ENCOUNTER 2023-04-04 12:52 | Outpatient (REF) | payer MEDICARE, SELFPAY ==
[2023-03-09 10:11] VITALS: BP 114/72; BP 124/60; BMI 25.3
--- NOTE | ~2023-04-04 | US_ITS ---
EXAMINATION: US EXTRACRANIAL CAROTID DUPLEX, BILATERAL CLINICAL INFORMATION: Occlusion and stenoses of bilateral carotid arteries status post endarterectomy COMPARISON: Carotid ultrasound 09/17/2019 CTA head and neck 11/20/2021 TECHNIQUE: Real-time ultrasound and Doppler techniques (integrating B-mode 2-D vascular images, Doppler spectral analysis and color-flow Doppler imaging) were utilized to interrogate the extracranial carotid arteries, the vertebral arteries and proximal subclavian arteries bilaterally. The degree of stenosis is determined by criteria similar to NASCET. FINDINGS: Right Side: 1. There is minimal atherosclerotic plaque seen in the bifurcation/proximal ICA region. 2. The common carotid artery PSV proximally is 99 cm/s and distally 62 cm/s. 3. The proximal internal carotid artery velocities are 52 cm/s systolic and 17 cm/s diastolic. 4. The proximal external carotid artery PSV is 83 cm/s. 5. The vertebral artery shows antegrade flow. 6. The subclavian artery waveforms are normal. 7. There are some small vessels seen around the periphery of the right internal carotid which could represent old collaterals which had developed prior to endarterectomy. In retrospect, some of this may be seen on the prior study. This is not felt to be a clinically significant finding. Left Side: 1. There is minimal atherosclerotic plaque seen in the bifurcation/proximal ICA region. 2. The common carotid artery PSV proximally is 86 cm/s and distally 76 cm/s. 3. The proximal internal carotid artery velocities are 35 cm/s systolic and 11 cm/s diastolic. 4. The proximal external carotid artery PSV is 52 cm/s. 5. The vertebral artery shows antegrade flow. 6. The subclavian artery waveforms are normal. US/US carotid duplex BI IMPRESSION: 1. RIGHT: Minimal, non-hemodynamically significant stenosis of the proximal right internal carotid artery corresponding to a 0-49% stenosis by velocity criteria. 2. LEFT: Minimal, non-hemodynamically significant stenosis of the proximal left internal carotid artery corresponding to a 0-49% stenosis by velocity criteria. 3. There is no change in the category severity of disease when compared to the previous study dated 09/17/2019.
--- NOTE | ~2023-04-04 | US_ITS ---
EXAMINATION: NONINVASIVE ASSESSMENT OF THE ARTERIES OF BOTH LOWER EXTREMITIES CLINICAL INFORMATION: Peripheral vascular disease. COMPARISON: 03/08/2022 TECHNIQUE: Segmental ankle pulse volume recording, pressure measurement at the ankle and ankle brachial indices were obtained of the lower extremity arterial system bilaterally. In addition, bilateral lower extremity duplex ultrasound was performed with velocity measurements and waveform analysis in the common femoral arteries, profunda femoris arteries, proximal mid and distal superficial femoral arteries, popliteal arteries and tibial vessels. This study was performed at rest only. FINDINGS: a) AT REST: 1. The ankle-brachial indices are: Right 0.9 and left 1.04. >0.97-1.25 = normal - no significant arterial disease. 0.75-0.96 = mild peripheral arterial disease. 0.5-0.74 = moderate peripheral arterial disease. <0.50 = severe peripheral arterial disease. 2. Segmental pressure at ankle: Normal. 3. PVR waveform at ankle: Minimally blunted on the right, normal on left. 4. Duplex exam. Velocities in cm/sec and phasicity as well as the presence of plaque are reported below. RIGHT LEG: There is plaque present in the right common femoral artery along with some mild disease in the SFA and popliteal. A stent may be present in the region of the popliteal although I cannot be certain of this. Please correlate clinically. Multiphasic flow is noted throughout. Common Femoral: 140 Profunda Femoris: 140 Proximal SFA: 81 Mid SFA: 84 Distal SFA: 80 Popliteal: 96 (previously 334) Posterior Tibial: 60 Dorsalis Pedis: 70 Anterior tibial: 58 LEFT LEG: Some plaque is present in the common femoral artery along with some mild disease in the distal SFA and popliteal. Multiphasic flow is noted throughout. Common Femoral: 165 Profunda Femoris: 165 Proximal SFA: 99 Mid SFA: 97 Distal SFA: 98 Popliteal: 94 Posterior Tibial: 64 Dorsalis Pedis: 56 Anterior Tibial: 57 US/US arterial duplex LE BI IMPRESSION: No evidence of hemodynamically significant lower extremity peripheral arterial disease at rest.
== END 2023-04-04 12:53 | disposition home or self-care (01) ==
LOC: HO.US 12:52
PROVIDERS: PCP Nurse Practitioner Gerontology; Visit Provider Surgery Vascular Surgery
DX: I70.213 Atherosclerosis of native arteries of extremities with intermittent claudication, bilateral legs (principal); I65.23 Occlusion and stenosis of bilateral carotid arteries
CPT/HCPCS: 93880; 93923; 93925

== ENCOUNTER 2023-08-15 08:46 | Outpatient (AMB) | payer MEDICARE, SELFPAY ==
[2023-04-05 09:10] VITALS: BP 114/72; BP 124/60; BMI 25.3
--- NOTE | 2023-08-15 08:46 | A.OFFVIS_ITS ---
Intake Vital Signs 08/15/23 08:50 Height 5 ft 3 in Weight 138 lb BMI 24.4 BP 128/66 Blood Pressure Location Rt brachial Position Sitting Pulse 77 Pulse Source Pulse Oximeter Pulse Oximetry (%) 98 Oxygen Delivery Method Room Air Intake Visit Reasons: 1 yr follow up s/p carotid US 04/04/2023 Intake Note: Pt presents to the office today for a 1 year follow up for a s/p carotid US 04/04/23. Pt states he had an aortic valve replacement in January 2023 and states since then he has constant pain in his chest and that is why he is on oxycodone. Pt states he is otherwise feeling okay and denies any new shortness of breath. Allergies lisinopril Allergy (Severe, Uncoded 08/15/23 08:54) Swelling HPI 1 yr follow up s/p carotid US 04/04/2023 HPI Details Very pleasant 82-year-old gentleman presents for routine surveillance follow-up regarding peripheral vascular disease. In addition he did have a surveillance carotid the last 1 which was in 2019. He reports that he is doing fairly well. He did have a CABG back in January. He reports that he is able to ambulate but his biggest concern is back and hip pain. He feels that his legs have an of power and strength to walk distances if it was not for his back and hip. He now presents for routine surveillance follow-up with noninvasive testing. [facility] Medical History Macular degeneration of right eye Type 2 diabetes mellitus without complications Essential hypertension Prostate cancer HTN (hypertension) Hyperlipemia PVD (peripheral vascular disease) COPD (chronic obstructive pulmonary disease) Surgical History (Updated 08/15/23 @ 09:00 by Laura Pantoja MA) Aortic valve replaced (~01/19/23) S/p bilateral carotid endarterectomy History of hip replacement History of cataract surgery History of inguinal hernia repair History of hernia surgery History of facial surgery Family History Mother No problems noted. Father No problems noted. Social History Household Members: Significant Other Household Members Other:: girlfriend Housing: Apartment Do you presently have visiting nurse or other home services: No Alcohol intake: former Patient Tobacco Use Status: Current everyday Tobacco user Tobacco use type: Cigarette Cigarette Packs Per Day: 0.5 Cigarettes Per Day: 10 Years Smoked: 65 e-Cigarette/Vaping Use: Never Used Second Hand Smoke Exposure: No Advance Directives Date on File: 11/20/21 service: Yes ( [employer]) Current occupational status: retired Review of Systems Const All systems reviewed & are unremarkable except as noted in HPI and below Reports no additional complaints ENT Reports Normal hearing present Card Denies chest pain, Denies chest pain at rest, Denies chest pain with activity and Denies pedal edema Resp Denies cough GI Denies abdominal pain Musc Denies abnormal gait, Denies muscle cramps and Denies radiating pain into limb Skin/Breast Denies skin ulcer and Denies wounds Neuro Reports Normal hearing present and Denies abnormal gait Psych Reports no additional complaints Physical Exam Vital Signs: Last Vital Signs Pulse 77 08/15/23 08:50 BP 128/66 08/15/23 08:50 Pulse Ox 98 08/15/23 08:50 Oxygen Delivery Method Room Air 08/15/23 08:50 BMI result Body Mass Index 24.4 Const General: cooperative, healthy appearing and comfortable Orientation/consciousness: oriented to person, oriented to place and oriented to time HEENT Head: Yes normal to inspection Neck Neck: Yes normal visual inspection Carotids: no bruits Chest Chest palpation & inspection: normal inspection of the chest Resp Effort & Inspection: normal respiratory effort and able to speak in complete sentences Auscultation: clear to auscultation bilaterally, no crackles, no rales, no rhonchi and no wheezes Cardio Other: Bilateral palpable dorsalis pedis pulses Rate: regular rate Rhythm: regular rhythm Heart sounds: S1 normal heart sound present and S2 normal heart sound present Bruits: no carotid bruits Peripheral pulses: Peripheral pulses 2+ throughout GI Inspection: Yes normal to inspection Skin Wounds: no wounds Hair: normal Neuro General: oriented to person, oriented to place and oriented to time Cranial nerves: Yes CN's II-XII intact bilaterally and Yes Normal hearing present Cognition (Neuro): normal cognition Motor exam (neuro): 5/5 motor strength present throughout Extrem Other: venous exam: No significant superficial varicosities or spider telangiectasias, minimal edema General: No clubbing, No cyanosis and No edema Psych Appearance: grossly normal Mental Status: mental status grossly normal Speech and movement: Normal speech and movement present Results Reviewed Results Reviewed: Noninvasive arterial testing dated 04/04/2023 demonstrates ALFONSO on the right of 0.9 and on the left of 1.04. Carotid testing dated 04/04/2023 demonstrates bilateral 0-49% stenosis. No change since study in 2019. Assessment & Plan Assessment & Plan (1) PAD (peripheral artery disease): Comment: 10/24/2018 - atherectomy and plasty of left popliteal artery Code(s): I73.9 - Peripheral vascular disease, unspecified Plan: In short patient has stable claudication. I did review the pathophysiology of peripheral vascular disease with the patient. In addition we did discuss routine conservative measures including a healthy diet and the importance of exercise and ambulation. We did discuss risk factor modification. The patient will continue to to follow-up with surveillance follow-up in approximately 1 year. Thank you for allowing us to participate in this patient's care. If there are any questions or concerns please do not hesitate to contact us. (2) Carotid stenosis, bilateral: Comment: 2014 and 2015 - right and left carotid endarterectomy Code(s): I65.23 - Occlusion and stenosis of bilateral carotid arteries Plan: In short patient has asymptomatic carotid disease. We have reviewed signs and symptoms of a stroke. We also discussed risk factor modification inclusive a healthy diet low in cholesterol. The patient will follow up with us with surveillance ultrasound of the carotids 1 year. Should there be any changes or signs or symptoms of a stroke we will be happy to see them back sooner. Thank you for allowing us to participate in this patient's care. If there are any questions or concerns please do not hesitate to contact us. (3) Varicose veins of left lower extremity with inflammation: Comment: 07/29/2022 - left great saphenous vein Cyanoacralate ablation Code(s): I83.12 - Varicose veins of left lower extremity with inflammation Plan: Stable (4) Varicose veins of right lower extremity with inflammation: Comment: 08/19/2022 - right great saphenous vein Cyanoacralate ablation Code(s): I83.11 - Varicose veins of right lower extremity with inflammation Plan: Stable Orders: Orders US arterial duplex LE BI 364 Days I73.9 - Peripheral vascular disease, unspecified US carotid duplex BI 364 Days I65.23 - Occlusion and stenosis of bilateral carotid arteries Coding Level of Care Code Est Pt Level 4 (71643) Diagnoses PAD (peripheral artery disease) I73.9 Carotid stenosis, bilateral I65.23 Varicose veins of left lower extremity with inflammation I83.12 Varicose veins of right lower extremity with inflammation I83.11
[2023-08-15 08:50] VITALS: BP 128/66; PULSE 77; O2SAT 98; BMI 24.4
== END 2023-08-15 09:14 | disposition home or self-care (01) ==
PROVIDERS: PCP Nurse Practitioner Gerontology; Visit Provider Surgery Vascular Surgery
DX: I73.9 Peripheral vascular disease, unspecified (principal); I65.23 Occlusion and stenosis of bilateral carotid arteries; I83.12 Varicose veins of left lower extremity with inflammation; I83.11 Varicose veins of right lower extremity with inflammation
CPT/HCPCS: 99213

== ENCOUNTER → 2023-08-15 08:46 | Outpatient (BNVA) | payer MEDICARE, SELFPAY ==
[2023-04-05 09:10] VITALS: BP 114/72; BP 124/60; BMI 25.3
== END ==
PROVIDERS: PCP Nurse Practitioner Gerontology; Visit Provider Surgery Vascular Surgery
DX: I73.9 Peripheral vascular disease, unspecified (principal); I65.23 Occlusion and stenosis of bilateral carotid arteries; I83.12 Varicose veins of left lower extremity with inflammation; I83.11 Varicose veins of right lower extremity with inflammation
CPT/HCPCS: 99212

== ENCOUNTER → 2023-09-11 09:53 | Outpatient (BNVA) | payer OTHER, SELFPAY ==
[2023-04-05 09:10] VITALS: BP 114/72; BP 124/60; BMI 25.3
== END ==
PROVIDERS: PCP Nurse Practitioner Gerontology; Visit Provider Internal Medicine Cardiovascular Disease

== ENCOUNTER 2023-10-16 08:58 | Outpatient (AMB) | payer OTHER, SELFPAY ==
[2023-04-05 09:10] VITALS: BP 114/72; BP 124/60; BMI 25.3
--- NOTE | 2023-10-16 09:02 | MHC.OFFVIS ---
Intake Vital Signs 10/16/23 09:08 Height 5 ft 3 in Weight 135 lb BMI 23.9 BP 146/65 H Blood Pressure Location Lt brachial Position Sitting Pulse 75 Intake Visit Reasons: barrets Intake Note: Amaury presents in the office as a follow up for barretts esophagus. CC: He feels like he is in need of a EGD. He states that he is having some issues swallowing. 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 [facility] and no dysplasia noted at that time. Continues with pantoprazole 40 once daily in AM. No reflux, nausea or vomiting. Continues to smoke almost half a pack a day. 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 [facility] Medical History Macular degeneration of right eye Type 2 diabetes mellitus without complications Essential hypertension Prostate cancer HTN (hypertension) Hyperlipemia PVD (peripheral vascular disease) COPD (chronic obstructive pulmonary disease) Surgical History Hx of colonoscopy History of esophagogastroduodenoscopy (EGD) Aortic valve replaced (~01/19/23) S/p bilateral carotid endarterectomy History of hip replacement History of cataract surgery History of inguinal hernia repair History of hernia surgery History of facial surgery Family History Mother No problems noted. Father No problems noted. Social History Household Members: Significant Other Household Members Other:: girlfriend Housing: Apartment Do you presently have visiting nurse or other home services: No Alcohol intake: former Patient Tobacco Use Status: Current everyday Tobacco user Tobacco use type: Cigarette Cigarette Packs Per Day: 0.5 Cigarettes Per Day: 10 Years Smoked: 65 e-Cigarette/Vaping Use: Never Used Second Hand Smoke Exposure: No Advance Directives Date on File: 11/20/21 service: Yes ([employer]) Current occupational status: retired Review of Systems Const All systems reviewed & are unremarkable except as noted in HPI and below Physical Exam Vital Signs: Last Vital Signs Pulse 75 10/16/23 09:08 BP 146/65 H 10/16/23 09:08 BMI result Body Mass Index 23.9 Gen appear: Elderly gent, NAD HEENT: nonicteric Abd: soft, nontender, Ext: no peripheral edema Neuro: A/Ox3, uses a cane to ambulate Psych: interacting appropriately Assessment & Plan Assessment & Plan (1) Aortic stenosis: Code(s): I35.0 - Nonrheumatic aortic (valve) stenosis (2) GERD (gastroesophageal reflux disease): Comment: Very pleasant Gent, multiple comorbidities-recent admission for hyponatremia Code(s): K21.9 - Gastro-esophageal reflux disease without esophagitis (3) Splenic infarct: Code(s): D73.5 - Infarction of spleen (4) Chronic anticoagulation: Code(s): Z79.01 - intermediate card tender (current) use of anticoagulants Plan Due for repeat EGD for Jenkins's surveillance. Will perform this with tissue cypher for risk stratification and if low risk/negative for dysplasia can review discontinuing future surveillance EGDs. 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 Will get clearance from his Heme (gets [facility] at [facility]) to hold eliquis x2 days prior to the procedure. Pt confirmed he is NOT on Plavix. Follow up after endo. Coding Level of Care Code Est Pt Level 4 (38629) Diagnoses Aortic stenosis I35.0 GERD (gastroesophageal reflux disease) K21.9 Splenic infarct D73.5 Chronic anticoagulation Z79.01
[2023-10-16 09:08] VITALS: BP 146/65; PULSE 75; BMI 23.9
== END 2023-10-16 09:48 | disposition home or self-care (01) ==
PROVIDERS: PCP Nurse Practitioner Gerontology; Visit Provider Internal Medicine
DX: I35.0 Nonrheumatic aortic (valve) stenosis (principal); K21.9 Gastro-esophageal reflux disease without esophagitis; D73.5 Infarction of spleen; Z79.01 Long term (current) use of anticoagulants
CPT/HCPCS: 99214

== ENCOUNTER → 2023-10-16 08:58 | Outpatient (BNVA) | payer OTHER, SELFPAY ==
[2023-04-05 09:10] VITALS: BP 114/72; BP 124/60; BMI 25.3
== END ==
PROVIDERS: PCP Nurse Practitioner Gerontology; Visit Provider Internal Medicine
DX: K21.9 Gastro-esophageal reflux disease without esophagitis (principal); D73.5 Infarction of spleen; I35.0 Nonrheumatic aortic (valve) stenosis; Z79.01 Long term (current) use of anticoagulants
CPT/HCPCS: 99212

== ENCOUNTER 2023-10-19 10:08 | Outpatient (AMB) | payer OTHER, SELFPAY ==
[2023-04-05 09:10] VITALS: BP 114/72; BP 124/60; BMI 25.3
[2023-10-19 10:28] VITALS: BP 142/70; PULSE 66; BMI 25.1
--- NOTE | 2023-10-19 10:28 | A.OFFVIS_ITS ---
Intake Vital Signs 10/19/23 10:28 Height 5 ft 3 in Weight 141 lb 8.588 oz BMI 25.1 BP 142/70 H Blood Pressure Location Lt brachial Position Sitting Pulse 66 Intake Visit Reasons: f/u after valve replacement Intake Note: pt its here for f/up valve replacement. Business And Services Instructor Required: No Accompanied by: Self / Same As Patient Allergies lisinopril Allergy (Severe, Uncoded 08/15/23 08:54) Swelling HPI HPI Comments History of Present Illness Details Amaury comes for follow-up, he underwent aortic valve replacement with transcatheter aortic valve replacement in January of last year, and has said has no follow-up with any immigration investigator since then which is surprising. He did have an echocardiogram post valve replacement and that showed normal function of the valve. Normal LV function. The valve was 26 mm Mary 3 valve. 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 However he has also been on aspirin therapy he said he has been on it for long-term and nobody discontinued it. He has not had any bleeding issues. He did not undergo cardiac rehab. He says his shortness of breath is improved. He does manage in exercise regularly. He denies any exertional chest pain. Denies orthopnea, PND, leg edema. No lightheadedness, syncope or prolonged palpitations. FORMERLY [facility] Medical History (Updated 10/19/23 @ 10:58 by Simeon López MD) Aortic stenosis Macular degeneration of right eye Type 2 diabetes mellitus without complications Essential hypertension Prostate cancer HTN (hypertension) Hyperlipemia PVD (peripheral vascular disease) COPD (chronic obstructive pulmonary disease) Surgical History (Updated 10/19/23 @ 10:58 by Simeon López MD) S/P TAVR (transcatheter aortic valve replacement) Hx of colonoscopy History of esophagogastroduodenoscopy (EGD) Aortic valve replaced (~01/19/23) S/p bilateral carotid endarterectomy History of hip replacement History of cataract surgery History of inguinal hernia repair History of hernia surgery History of facial surgery Family History Mother No problems noted. Father No problems noted. Social History Household Members: Significant Other Household Members Other:: girlfriend Housing: Apartment Do you presently have visiting nurse or other home services: No Alcohol intake: former Patient Tobacco Use Status: Current everyday Tobacco user Tobacco use type: Cigarette Cigarette Packs Per Day: 0.5 Cigarettes Per Day: 10 Years Smoked: 65 e-Cigarette/Vaping Use: Never Used Second Hand Smoke Exposure: No Advance Directives Date on File: 11/20/21 service: Yes ( [employer]) Current occupational status: retired Review of Systems Const Denies chills, Denies fatigue, Denies fever(s), Denies frequent falls, Denies weakness, Denies weight gain and Denies weight loss ENT Denies dizziness Card Denies chest pain, Denies leg edema, Denies lightheadedness, Denies palpitations, Denies dyspnea and Denies dyspnea on exertion Resp Denies cough, Denies dyspnea and Denies dyspnea on exertion GI Denies hematochezia Musc Denies abnormal gait, Denies muscle weakness, Denies numbness, Denies radiating pain into limb and Denies tingling Neuro Denies Abnormal speech present, Denies abnormal gait, Denies dizziness, Denies frequent falls, Denies numbness, Denies tingling and Denies weakness Endo Denies fatigue and Denies palpitations Physical Exam Vital Signs: Last Vital Signs Pulse 66 10/19/23 10:28 BP 142/70 H 10/19/23 10:28 BMI result Body Mass Index 25.1 Const General: cooperative, comfortable, no acute distress, well developed, alert and awake Nutritional Appearance: overweight Orientation/consciousness: patient oriented x3 Limitations: no limitations HEENT Head: Yes normocephalic and Yes atraumatic Neck Neck: Yes trachea midline, Yes supple, Yes no JVD and Yes other (Bilateral endarterectomies scar) Resp Effort & Inspection: normal respiratory effort Auscultation: clear to auscultation bilaterally Cardio Jugular venous distension: no JVD Palpation: normal PMI Rate: regular rate Rhythm: regular rhythm Heart sounds: S1 normal heart sound present, S2 normal heart sound present, no click and no gallops GI Auscultation: normal bowel sounds Skin General skin exam: no rashes or lesions noted Neuro General: patient oriented x3 and no focal motor deficits Speech: No Abnormal speech present Extrem General: Yes no clubbing, cyanosis or edema Office Procedures EKG Details: EKG shows normal sinus rhythm first-degree AV block otherwise normal EKG [id number], Complete Assessment & Plan Assessment & Plan (1) S/P TAVR (transcatheter aortic valve replacement): Comment: 26 mm Mary 3 valve, January of 2023 Code(s): Z95.2 - Presence of prosthetic heart valve Plan: Status post transcatheter aortic valve replacement for symptomatic severe aortic stenosis with improvement in his shortness of breath. He continues to have shortness of breath related to his pulmonary parenchymal disease. Although doing well. He developed post procedural splenic infarct and diagnose with hypercoagulable states. Agree with Eliquis for long-term. There is no clear history of atrial fibrillation at this point in time. However does not require dual therapy and would therefore discontinue aspirin therapy to reduce bleeding risk. Continue aggressive vascular risk factor modification. Aggressive management diabetes goal hemoglobin A1c less than 7%. Goal LDL less than 70 mg/dL given his vascular disease as well. Continue to exercise as tolerated. SBE prophylaxis as per ACC/aha guidelines. Will follow up in the clinic in 6 months time after an echocardiogram. Thank you for allowing me to partake in his care Coding Level of Care Code Est Pt Level 4 (47329) Diagnoses S/P TAVR (transcatheter aortic valve replacement) Z95.2 CPT Codes EKG - CPT: 09010-[id number], Complete ([id number])
== END 2023-10-19 10:51 | disposition home or self-care (01) ==
PROVIDERS: PCP Nurse Practitioner Gerontology; Visit Provider Internal Medicine Cardiovascular Disease
DX: Z95.2 Presence of prosthetic heart valve (principal)
CPT/HCPCS: 93010; 99214

== ENCOUNTER → 2023-10-19 10:08 | Outpatient (BNVA) | payer OTHER, SELFPAY ==
[2023-04-05 09:10] VITALS: BP 114/72; BP 124/60; BMI 25.3
== END ==
PROVIDERS: PCP Nurse Practitioner Gerontology; Visit Provider Internal Medicine Cardiovascular Disease
DX: Z95.2 Presence of prosthetic heart valve (principal)
CPT/HCPCS: 93005; 99212

== ENCOUNTER 2023-10-27 10:54 | Emergency (ER) | payer OTHER, MEDICAID, SELFPAY ==
[2023-04-05 09:10] VITALS: BP 114/72; BP 124/60; BMI 25.3
[2023-10-27 11:04] VITALS: BP 156/76; PULSE 68; RESP 17; TEMP 36.8; O2SAT 98; BMI 26.6
--- NOTE | 2023-10-27 11:05 | ED.GENADULT ---
HPI - General Adult General Chief complaint: Abdominal Pain Stated complaint: Nausea, dizziness, pain right arm Time Seen by Provider: 10/27/23 11:47 Source: patient and family (Son, Amaury) Mode of arrival: ambulatory Limitations: no limitations History of Present Illness HPI narrative: 82-year-old male who presents emergency department for evaluation of nausea times 3-4 days, restlessness, body aches, feeling hot and cold. Patient does have chronic pain and is treated by pain management clinic through [facility] [place]. patient has been on buprenorphine patches 15 mg changed every 5 days. Patient noted a rash underneath the patch area that was confined to the patch so he stopped his buprenorphine for the last 2-3 days. He denied fever. He states that he has got a chronic cough secondary to cigarette smoking and has chronic shortness of breath due to COPD. He has persistent nausea with no vomiting, he has had no diarrhea he states he has been constipated. He states he has diffuse abdominal pain and did notice dark stools today. He denied frequency, urgency or dysuria. Related Data Home Medications Medication Instructions Recorded Confirmed atorvastatin 20 mg tablet 20 mg PO DAILY 03/16/21 10/19/23 amlodipine 10 mg tablet 10 mg PO BEDTIME 11/20/21 10/19/23 metformin 500 mg tablet 500 mg PO DAILY 02/28/22 10/19/23 apixaban 5 mg tablet 5 mg PO BID 08/15/23 10/19/23 bupropion HCl 200 mg tablet,12 hr PO 08/15/23 10/19/23 sustained-release melatonin 5 mg tablet 5 mg PO BEDTIME PRN 08/15/23 10/19/23 mirtazapine 15 mg tablet 15 mg PO BEDTIME 08/15/23 10/19/23 oxycodone 5 mg capsule 5 mg PO BID PRN 08/15/23 10/19/23 trazodone 100 mg tablet 100 mg PO BEDTIME 08/15/23 10/19/23 buprenorphine 10 mcg/hour weekly 1 patch transdermal Q7D 10/16/23 10/19/23 transdermal patch pregabalin 25 mg capsule 25 mg PO TID 10/16/23 10/19/23 Previous Rx's Medication Instructions Recorded pantoprazole 40 mg tablet,delayed 40 mg PO DAILY #90 tabs 06/22/21 release blood sugar diagnostic (FreeStyle #100 ea 11/29/21 Lite Strips) blood-glucose meter (FreeStyle #1 ea 11/29/21 Lite Meter kit) lancets 28 gauge (FreeStyle #100 ea 11/29/21 Lancets) albuterol sulfate 90 mcg/actuation 2 inh inhalation QID PRN shortness 02/25/22 aerosol inhaler of breath or wheezing #6.7 grams oseltamivir 75 mg capsule (Tamiflu) 75 mg PO Q12H 5 days #10 caps 10/27/23 Allergies Allergy/AdvReac Type Severity Reaction Status Date / Time lisinopril Allergy Severe Swelling Uncoded 08/15/23 08:54 Review of Systems Review of Systems: Yes all other systems are reviewed and are negative ON LICENSE OF [facility] Past Medical History ON LICENSE OF [facility] Narrative: Social history: Patient does smoke cigarettes, proximally 10 cigarettes per day. Denies alcohol and drug use. Medical History Aortic stenosis Macular degeneration of right eye Type 2 diabetes mellitus without complications Essential hypertension Prostate cancer HTN (hypertension) Hyperlipemia PVD (peripheral vascular disease) COPD (chronic obstructive pulmonary disease) Surgical History S/P TAVR (transcatheter aortic valve replacement) Hx of colonoscopy History of esophagogastroduodenoscopy (EGD) Aortic valve replaced (~01/19/23) S/p bilateral carotid endarterectomy History of hip replacement History of cataract surgery History of inguinal hernia repair History of hernia surgery History of facial surgery Family History Family History Mother No problems noted. Father No problems noted. Social History Social History Household Members: Significant Other Household Members Other:: girlfriend Housing: Apartment Do you presently have visiting nurse or other home services: No Alcohol intake: former Patient Tobacco Use Status: Current everyday Tobacco user Tobacco use type: Cigarette Cigarette Packs Per Day: 0.5 Cigarettes Per Day: 10 Years Smoked: 65 e-Cigarette/Vaping Use: Never Used Second Hand Smoke Exposure: No Advance Directives: Yes Advance Directives on File: Yes Advance Directives Date on File: 11/20/21 service: Yes ( [employer]) Current occupational status: retired Physical Exam ED Vital Signs: Vital Signs - 24 hr 10/27/23 11:04 Temperature 98.3 F Pulse Rate 68 Respiratory Rate 17 Blood Pressure 156/76 H Pulse Oximetry 98 Oxygen Delivery Method Room Air BMI result Body Mass Index 26.6 Vital signs revealed an elevated blood pressure of 156/76. Exam: General: Awake, alert in no distress Head: Normocephalic, atraumatic EENT: PERRL, Lids normal, sclera normal, conjunctiva normal, nose normal , ears normal, throat without erythema or exudates Neck: Supple, no adenopathy Lung: breath sounds symmetric, no wheezing, rales or rhonchi Chest: symmetric movement, nontender Heart: regular rate and rhythm, normal S1, S2 no murmurs or rubs Abdomen: soft, non-tender, nondistended, normal bowel sounds Rectal: No external hemorrhoids, stool was brown. Hemoccult negative Back: no vertebral tenderness, no CVAT Extremities: no deformities, moves all extremities symmetrically Skin: Patient has a rectangular erythematous rash on both upper arms in the shape of a patch, no other rash noted Neuro: Awake, alert, oriented, normal speech, cranial nerves intact, moves all extremities symmetrically Psych: Pleasant, cooperative Course Course Course Narrative: RME performed by Lakisha Hernandez PA-C. Patient is an 82 year old assigned male at presenting to the emergency department with right arm pain, abdominal pain, and feeling overall restless. Patient follows with the [facility] for chronic pain and was on pain patches but recently stopped. Patient states that she has also had dark stools lately and been dizzy with standing. Detailed physical exam and review of systems are deferred to the special education bus driver. Labs ordered. Patient placed back in the waiting room pending room availability and results. Medical Decision Making Medical Decision Making MDM Narrative: 82-year-old male who presents emergency department for evaluation of nausea times 3-4 days, restlessness, body aches, feeling hot and cold. Patient does have chronic pain and is treated by pain management clinic through the [facility]. and is treated with buprenorphine patches 15 mg changed every 5 days. Patient noted a rash underneath the patch area that was confined to the patch so he stopped his buprenorphine for the last 2-3 days. Vital signs revealed an elevated blood pressure. Patient does have a rash on both shoulders which is in the shape of the patch but does not extend beyond the patch. Exam was otherwise unremarkable, stool was brown and was Hemoccult negative. Differential diagnosis: ?Includes but is not limited to myocardial infarction, myocardial ischemia, peptic ulcer disease, GERD, upper GI bleed, pancreatitis, narcotic withdrawal (buprenorphine) Following evaluation was ordered: CBC, CMP, magnesium, PT/INR, PTT, troponin, urinalysis, lipase, COVID-19, influenza, RSV Patient was initially treated with the following: Zofran ODT Course: 13:47 My interpretation patient's laboratory evaluation is as follows. Normocytic anemia with an H&H of 12.7 and 36.4. He has had similar anemia in the past. Coags were normal. Glucose elevated 196. LFTs. Lipase was normal. High sensitive troponin I was detectable. COVID-19, influenza, RSV were negative. At this time I suspect the patient's symptoms are most consistent with narcotic withdrawal secondary to stopping his buprenorphine. Patient's rash is consistent with local irritation/reaction and I do not think that he has having a significant allergic reaction . Therefore he can continue using the patch. I advised him to place the patch and different areas on his arms and legs and to discuss continuation of this medication [facility]. Patient was given a prescription for Zofran ODT 4 mg every 6-8 hours as needed for nausea and vomiting. He and his son were given printed and verbal instructions and discharged home. Admission/Observation Consideration of admission/observation: Escalation of care including admission/observation considered Lab Data [facility] Lab Attestation statement: I reviewed the patient's lab results. 10/27/23 11:23 10/27/23 11:23 Labs: Lab Results 10/27/23 Range/Units 11:23 WBC 7.1 (4.8-10.8) X10*3/uL RBC 4.49 L (4.60-5.80) X10*6/uL Hgb 12.7 L (14.0-18.0) g/dl Hct 36.4 L (42.0-52.0) % MCV 81.1 (80.0-98.0) fL MCH 28.3 (27.0-33.0) pg MCHC 34.9 (31.0-36.0) g/dl RDW 12.6 (11.0-16.0) % Plt Count 287 D (160-400) X10*3/uL MPV 9.2 L (9.4-12.4) fL Immature Gran % (Auto) 0.4 (0.0-0.4) % Neut % (Auto) 73.2 H (45-73) % Lymph % (Auto) 15.4 L (20-40) % Jenkins % (Auto) 8.1 (2-11) % Eos % (Auto) 2.1 (0-4) % Baso % (Auto) 0.8 (0-2) % Lymph # (Auto) 1.1 L (1.2-4.9) X10*3/uL Jenkins # (Auto) 0.6 (0.1-1.2) X10*3/uL Eos # (Auto) 0.2 (0.0-0.4) X10*3/uL Baso # (Auto) 0.1 (0.0-0.2) X10*3/uL Abs Immat Gran (auto) 0.03 (0.00-0.03) X10*3/uL Absolute Neuts (auto) 5.2 (2.0-8.3) x10*3/uL Absolute Nucleated RBC 0.000 (0.0-0.012) X10*3/uL Nucleated RBC % (auto) 0.0 (0.0-0.2) /100WBC PT 14.9 H (11.1-13.3) SEC INR 1.2 H (0.9-1.1) APTT 35.2 (26.0-36.8) SEC Sodium 136 (135-145) mmol/L Potassium 4.1 (3.3-5.1) mmol/L Chloride 101 (96-108) mmol/L Carbon Dioxide 28 (22-29) mmol/L Anion Gap 11 L (12-20) BUN 12 (9-16) mg/dL Creatinine 0.84 (0.5-1.4) mg/dL Estim Creat Clear Calc 53.6 Estimated GFR > 60 Random Glucose 196 H (60-115) mg/dL Calcium 11.1 H D (8.4-10.2) mg/dL Magnesium 1.8 (1.6-2.6) mg/dL Total Bilirubin 0.7 (0.0-1.0) mg/dL AST 17 (5-37) U/L ALT 22 (0-40) U/L Alkaline Phosphatase 94 (39-117) U/L Troponin I High Sens 27.4 (<3.5-35.0) ng/L Total Protein 7.6 (6.5-8.0) g/dL Albumin 4.2 (3.5-5.0) g/dL Influenza Type A (PCR) NEGATIVE (Negative) Influenza Type B (PCR) NEGATIVE (Negative) RSV RNA Qual (PCR) NEGATIVE (Negative) SARS-CoV-2 RNA (RT-PCR) NEGATIVE (Negative) Independent Interpretation I performed an independent interpretation of an: EKG Interpretation: My interpretation patient's 12 EKG done at 11:15 hours is as follows: Sinus rhythm with a first-degree AV block with a TN interval of 226 milliseconds, normal QRS and QTC intervals, no ST segment elevation, no ST segment depression, no significant T-wave abnormalities, no PACs, no PVCs Independent Historian Clinical information obtained from an independent historian. History obtained from or confirmed by: Other (Son) Prescription Management I considered prescription management with: Other (Antiemetic) Chronic Conditions Patient?s care impacted by: Diabetes and Hypertension Discharge Plan Discharge Clinical Impression: Acute narcotic withdrawal, Buprenorphine withdrawal Patient Disposition: Home, Self-Care Instructions: Narcotic Withdrawal (ED) Additional Instructions: Your blood work at this time was consistent with your baseline values. You have mild anemia which you have had in the past. On your rectal exam, your stool was brown and there was no blood detected on the occult blood screen. This is reassuring suggesting that your dark stools are not due to a bleeding ulcer other significant bleeding in your GI tract. At this time I believe that your restlessness, nausea and other symptoms are secondary to unintentional withdrawal from your buprenorphine treatment since she stopped it because of the rash. I believe that the rash is just focal irritation from the patch and not a true allergic reaction. I want you to continue using the patch but put it in different areas on your arms or your upper thigh areas. Follow-up with your doctor in 2 days. Please return to the emergency department if your symptoms get worse or if you develop any symptoms that are concerning to you. Prescriptions: New oseltamivir [Tamiflu] 75 mg capsule 75 mg PO Q12H 5 Days Qty: 10 0RF No Action pantoprazole 40 mg tablet,delayed release (DR/EC) 40 mg PO DAILY Qty: 90 1RF (DME) lancets [FreeStyle Lancets] 28 gauge misc See Rx Instructions .Route Qty: 100 0RF Rx Instructions: Test once daily (DME) blood-glucose meter [FreeStyle Lite Meter] Kit See Rx Instructions .Route Qty: 1 0RF Rx Instructions: As directed (DME) FreeStyle Lite Strips Strip See Rx Instructions .Route Qty: 100 0RF Rx Instructions: Test once daily albuterol sulfate 90 mcg/actuation HFA aerosol inhaler 2 inh inhalation QID PRN (Reason: shortness of breath or wheezing) Qty: 6.7 0RF amlodipine 10 mg tablet 10 mg PO BEDTIME atorvastatin 20 mg tablet 20 mg PO DAILY metformin 500 mg tablet 500 mg PO DAILY melatonin 5 mg tablet 5 mg PO BEDTIME PRN mirtazapine 15 mg tablet 15 mg PO BEDTIME trazodone 100 mg tablet 100 mg PO BEDTIME bupropion HCl 200 mg tablet sustained-release 12 hr PO apixaban 5 mg tablet 5 mg PO BID oxycodone 5 mg capsule 5 mg PO BID PRN pregabalin 25 mg capsule 25 mg PO TID buprenorphine 10 mcg/hour patch weekly 1 patch transdermal Q7D
--- NOTE | 2023-10-27 11:06 | ECG_ITS ---
Test Reason : WEAKNESS Blood Pressure : / mmHG Vent. Rate : 068 BPM Atrial Rate : 068 BPM P-R Int : 226 ms QRS Dur : 082 ms QT Int : 382 ms P-R-T Axes : 050 012 041 degrees QTc Int : 406 ms Sinus rhythm with 1st degree A-V block Otherwise normal ECG When compared with ECG of 25-FEB-2022 09:47, No significant change was found Referred By: Lakisha Hernandez Electronically Signed By:Luc Oliveira
[2023-10-27 11:28] LABS: MANUAL DIFF FLAG NO
[2023-10-27 11:36] LABS: Basophils Absolute Auto 0.1 X10*3/uL (0.0-0.2); Basophils Percent Auto 0.8 % (0-2); Eosinophils Absolute Auto 0.2 X10*3/uL (0.0-0.4); Eosinophils Percent Auto 2.1 % (0-4); Hematocrit 36.4 % (42.0-52.0); Hemoglobin 12.7 g/dl (14.0-18.0); Imm Gran Abs Auto 0.03 X10*3/uL (0.00-0.03); Imm Gran Pct Auto 0.4 % (0.0-0.4); Lymphocytes Absolute Auto 1.1 X10*3/uL (1.2-4.9); Lymphocytes Percent Auto 15.4 % (20-40); Mean Corpuscular HGB Conc 34.9 g/dl (31.0-36.0); Mean Corpuscular Hemoglobin 28.3 pg (27.0-33.0); Mean Corpuscular Volume 81.1 fL (80.0-98.0); Mean Platelet Volume 9.2 fL (9.4-12.4); Monocytes Absolute Auto 0.6 X10*3/uL (0.1-1.2); Monocytes Percent Auto 8.1 % (2-11); Neutrophils Absolute Auto 5.2 x10*3/uL (2.0-8.3); Neutrophils Percent Auto 73.2 % (45-73); Platelet Count 287 X10*3/uL (160-400); Red Blood Count 4.49 X10*6/uL (4.60-5.80); Red Cell Distribution Width 12.6 % (11.0-16.0); White Blood Count 7.1 X10*3/uL (4.8-10.8)
[2023-10-27 11:43] LABS: INTERNATIONAL NORM RATIO 1.2 (0.9-1.1); Prothrombin Time 14.9 SEC (11.1-13.3)
[2023-10-27 11:45] LABS: Partial Thromboplastin Time 35.2 SEC (26.0-36.8)
[2023-10-27 11:51] LABS: Alanine Aminotransferase 22 U/L (0-40); Albumin Level 4.2 g/dL (3.5-5.0); Alkaline Phosphatase 94 U/L (39-117); Anion Gap 11 (12-20); Aspartate Amino Transferase 17 U/L (5-37); Bilirubin Total 0.7 mg/dL (0.0-1.0); Blood Urea Nitrogen 12 mg/dL (9-16); Calcium 11.1 mg/dL (8.4-10.2); Carbon Dioxide 28 mmol/L (22-29); Chloride 101 mmol/L (96-108); Creatinine Clr Calc Pharmacy 53.6; Estimated Glomerular Filt Rate > 60; Glucose Random 196 mg/dL (60-115); Magnesium 1.8 mg/dL (1.6-2.6); Potassium 4.1 mmol/L (3.3-5.1); Sodium 136 mmol/L (135-145); Total Protein 7.6 g/dL (6.5-8.0)
[2023-10-27 11:55] LABS: Troponin-I High Sensitivity 27.4 ng/L (<3.5-35.0)
[2023-10-27 12:12] LABS: Influenza A PCR NEGATIVE (Negative); Influenza B PCR NEGATIVE (Negative); Resp Syncy Virus RNA Qual PCR NEGATIVE (Negative); SARS COV2 PCR INHOUSE NEGATIVE (Negative)
[2023-10-27 13:45] LABS: Lipase 15 U/L (8-78)
[2023-10-27] MEDS: Ondansetron ODT 4 MG TAB.RAPDIS TRANSLINGU (13:47)
[2023-10-27 14:23] VITALS: BP 158/72; PULSE 79; RESP 18; O2SAT 96
== END 2023-10-27 14:36 | disposition home or self-care (01) ==
PROVIDERS: Physician Assistant Medical; Emergency Provider Emergency Medicine Emergency Medical Services; PCP Nurse Practitioner Family
DX: F11.23 Opioid dependence with withdrawal (principal); E11.9 Type 2 diabetes mellitus without complications; I10 Essential (primary) hypertension; Z11.52 Encounter for screening for COVID-19; Z20.828 Contact with and (suspected) exposure to other viral communicable diseases
CPT/HCPCS: 0241U; 36415; 80053; 83690; 83735; 84484; 85025; 85610; 85730; 93005; 99283; 99284

== ENCOUNTER → 2023-10-27 11:06 | Outpatient (BNV) | payer OTHER, MEDICARE, MEDICAID, SELFPAY ==
[2023-04-05 09:10] VITALS: BP 114/72; BP 124/60; BMI 25.3
== END ==
PROVIDERS: Emergency Provider Emergency Medicine Emergency Medical Services; PCP Nurse Practitioner Family; Visit Provider Internal Medicine Cardiovascular Disease
DX: I44.0 Atrioventricular block, first degree (principal)
CPT/HCPCS: 93010

== ENCOUNTER 2024-01-09 08:29 | Day surgery (SDC) | payer OTHER, SELFPAY ==
[2023-04-05 09:10] VITALS: BP 114/72; BP 124/60; BMI 25.3
[2024-01-09 09:30] VITALS: BMI 23.4
[2024-01-09 09:43] VITALS: BP 187/72; PULSE 70; RESP 16; TEMP 36.6; O2SAT 99
[2024-01-09 09:54] LABS: Glucose, Whole Blood 196 mg/dL (60-115)
[2024-01-09 09:55] VITALS: BP 150/69
[2024-01-09] MEDS: Lactated Ringers 1,000 ML 100 ML IVCONT (09:58)
--- NOTE | 2024-01-09 10:00 | P.CONAN_ITS ---
Documented by User: Amy Esteban NP 01/08/24 11:57 HPI - Anesthesia Eval Consult details Narrative: 83yo M for ?Upper Endoscopy Buprenorphine patch s/p TAVR 01/2023. 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 He did have an echocardiogram post valve replacement and that showed normal function of the valve. Normal LV function. The valve was 26 mm Mary 3 valve. 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 Follows [facility] Cardiac surgery. Optimized for procedure and ok'd to hold eliquis. [facility] Active Problems Active Problems: All Active Problems S/P TAVR (transcatheter aortic valve replacement) (Acute) Chronic anticoagulation (Acute) Splenic infarct (Acute) Carotid stenosis, bilateral (Acute) Varicose veins of left lower extremity with inflammation (Acute) Varicose veins of right lower extremity with inflammation (Acute) Epigastric pain (Acute) Nausea (Acute) PAD (peripheral artery disease) (Acute) GERD (gastroesophageal reflux disease) (Acute) Epistaxis (Acute) Acute hyponatremia (Acute) Angioedema of lips (Acute) Allergic reaction to contrast dye (Acute) Type 2 diabetes mellitus without complications (Acute) COPD (chronic obstructive pulmonary disease) (Acute) Hyperlipemia (Acute) Essential hypertension (Acute) Prostate cancer (Acute) Past Medical History Medical History (Updated 10/28/23 @ 00:00 by Ethel Benson) Aortic stenosis Macular degeneration of right eye Type 2 diabetes mellitus without complications Essential hypertension Prostate cancer HTN (hypertension) Hyperlipemia PVD (peripheral vascular disease) COPD (chronic obstructive pulmonary disease) Family History Family History Mother No problems noted. Father No problems noted. Surgical History Surgical History Hx of prostatectomy S/P TAVR (transcatheter aortic valve replacement) Hx of colonoscopy History of esophagogastroduodenoscopy (EGD) Aortic valve replaced (~01/19/23) S/p bilateral carotid endarterectomy History of hip replacement History of cataract surgery History of inguinal hernia repair History of hernia surgery History of facial surgery Social History Social History Household Members: Significant Other Household Members Other:: girlfriend Housing: Apartment Do you presently have visiting nurse or other home services: No Alcohol intake: former Patient Tobacco Use Status: Current everyday Tobacco user Tobacco use type: Cigarette Cigarette Packs Per Day: 0.5 Cigarettes Per Day: 8 Years Smoked: 65 e-Cigarette/Vaping Use: Never Used Second Hand Smoke Exposure: No Use of substances other than those prescribed or required for medical reasons: No Are you DNR?: No Advance Directives: No Advance Directives Information Provided: Yes Advance Directives Date on File: 11/20/21 service: Yes ([employer]) Current occupational status: retired [employer] Allergies Allergy/AdvReac Type Severity Reaction Status Date / Time lisinopril Allergy Severe Swelling Uncoded 08/15/23 08:54 Home Medications ?Medication ?Instructions ?Recorded ?Confirmed ?Last Taken ?Type atorvastatin 20 mg tablet 20 mg PO DAILY 03/16/21 10/19/23 Unknown History amlodipine 10 mg tablet 10 mg PO BEDTIME 11/20/21 10/19/23 Unknown History metformin 500 mg tablet 500 mg PO DAILY 02/28/22 10/19/23 Unknown History apixaban 5 mg tablet 5 mg PO BID 08/15/23 10/19/23 Unknown History bupropion HCl 200 mg tablet,12 hr PO 08/15/23 10/19/23 Unknown History sustained-release melatonin 5 mg tablet 5 mg PO BEDTIME PRN Insomnia 08/15/23 10/19/23 Unknown History mirtazapine 15 mg tablet 15 mg PO BEDTIME 08/15/23 10/19/23 Unknown History oxycodone 5 mg capsule 5 mg PO BID PRN Pain 08/15/23 10/19/23 Unknown History trazodone 100 mg tablet 100 mg PO BEDTIME 08/15/23 10/19/23 Unknown History buprenorphine 10 mcg/hour weekly 1 patch transdermal Q7D 10/16/23 10/19/23 Unknown History transdermal patch (Butrans) pregabalin 25 mg capsule 25 mg PO TID 10/16/23 10/19/23 Unknown History Exam Pertinent Lab Results Pertinent Lab Results: Laboratory Tests 10/27/23 11:23 WBC 7.1 Hgb 12.7 L Hct 36.4 L Plt Count 287 D Sodium 136 Potassium 4.1 Chloride 101 Carbon Dioxide 28 BUN 12 Creatinine 0.84 Narrative Narrative: EKG 10/2023 Vent. Rate : 068 BPM Atrial Rate : 068 BPM P-R Int : 226 ms QRS Dur : 082 ms QT Int : 382 ms P-R-T Axes : 050 012 041 degrees QTc Int : 406 ms Sinus rhythm with 1st degree A-V block Otherwise normal ECG When compared with ECG of 25-FEB-2022 09:47, No significant change was found ECHO 01/2023 Conclusions: - The left ventricular systolic function is normal. The visually estimated ejection fraction is between 65-70%. - A bioprosthetic aortic valve is present. The prosthetic aortic valve appears to be functioning normally. - There is severe septal and severe basal asymmetric hypertrophy. Assessment and Plan Assessment Anesthesia Assessment: Chart Reviewed Documented by User: Deonna Murrieta DO 01/09/24 10:08 [facility] Past Medical History Medical History (Updated 10/28/23 @ 00:00 by Ethel Benson) Aortic stenosis Macular degeneration of right eye Type 2 diabetes mellitus without complications Essential hypertension Prostate cancer HTN (hypertension) Hyperlipemia PVD (peripheral vascular disease) COPD (chronic obstructive pulmonary disease) Family History Family History Mother No problems noted. Father No problems noted. Family history of problems with anesthesia: No Surgical History Surgical History Hx of prostatectomy S/P TAVR (transcatheter aortic valve replacement) Hx of colonoscopy History of esophagogastroduodenoscopy (EGD) Aortic valve replaced (~01/19/23) S/p bilateral carotid endarterectomy History of hip replacement History of cataract surgery History of inguinal hernia repair History of hernia surgery History of facial surgery History of Problems with Anesthesia: No Social History Social History Household Members: Significant Other Household Members Other:: girlfriend Housing: Apartment Do you presently have visiting nurse or other home services: No Alcohol intake: former Patient Tobacco Use Status: Current everyday Tobacco user Tobacco use type: Cigarette Cigarette Packs Per Day: 0.5 Cigarettes Per Day: 8 Years Smoked: 65 e-Cigarette/Vaping Use: Never Used Second Hand Smoke Exposure: No Use of substances other than those prescribed or required for medical reasons: No Are you DNR?: No Advance Directives: No Advance Directives Information Provided: Yes Advance Directives Date on File: 11/20/21 service: Yes ([employer]) Current occupational status: retired [employer] Allergies Allergy/AdvReac Type Severity Reaction Status Date / Time lisinopril Allergy Severe Swelling Uncoded 08/15/23 08:54 Home Medications ?Medication ?Instructions ?Recorded ?Confirmed ?Last Taken ?Type atorvastatin 20 mg tablet 20 mg PO DAILY 03/16/21 10/19/23 Unknown History amlodipine 10 mg tablet 10 mg PO BEDTIME 11/20/21 10/19/23 Unknown History metformin 500 mg tablet 500 mg PO DAILY 02/28/22 10/19/23 Unknown History apixaban 5 mg tablet 5 mg PO BID 08/15/23 10/19/23 Unknown History bupropion HCl 200 mg tablet,12 hr PO 08/15/23 10/19/23 Unknown History sustained-release melatonin 5 mg tablet 5 mg PO BEDTIME PRN Insomnia 08/15/23 10/19/23 Unknown History mirtazapine 15 mg tablet 15 mg PO BEDTIME 08/15/23 10/19/23 Unknown History oxycodone 5 mg capsule 5 mg PO BID PRN Pain 08/15/23 10/19/23 Unknown History trazodone 100 mg tablet 100 mg PO BEDTIME 08/15/23 10/19/23 Unknown History buprenorphine 10 mcg/hour weekly 1 patch transdermal Q7D 10/16/23 10/19/23 Unknown History transdermal patch (Butrans) pregabalin 25 mg capsule 25 mg PO TID 10/16/23 10/19/23 Unknown History Exam Exam Date and Time: January 09, 2024 1000 Height,Weight and Vital Signs: Height 5 ft 3 in Weight 59.874 kg Vital Signs Temperature 97.9 F 01/09/24 09:43 Pulse Rate 70 01/09/24 09:43 Respiratory Rate 16 01/09/24 09:43 Blood Pressure 187/72 H 01/09/24 09:43 Pulse Oximetry 99 01/09/24 09:43 Oxygen Delivery Method Room Air 01/09/24 09:43 Temperature 97.9 F 01/09/24 09:43 Pulse Rate 70 01/09/24 09:43 Respiratory Rate 16 01/09/24 09:43 Blood Pressure 187/72 H 01/09/24 09:43 Pulse Oximetry 99 01/09/24 09:43 Oxygen Delivery Method Room Air 01/09/24 09:43 Airway Mallampati Class: II TM Dist: >3cm Neck ROM: Full Loose/Missing/Broken Teeth: Yes (edentulous) Heart: S1S2 Lungs: CTAB Assessment and Plan Assessment Anesthesia Assessment: Anesthesia Plan Discussed and Chart Reviewed Final Anesthetic Review Family History of Problems with Anesthesia: No History of Problems with Anesthesia: No NPO: Yes ASA Class: III Final Preanesthetic Review: No Changes in Pt Med Stat, Meds/Allgs Chart Reviewed, Consent Obtained/Reviewed and Anes Risks/Benef Reviewed Patient Risk: Intermediate Procedure Risk: Low Anesthetic Plan Anesthetic Plan: MAC: and Agree w/ Assess. and Plan Disposition: Standard PACU
--- NOTE | 2024-01-09 10:07 | MHC.SHP ---
Pre-Procedural Eval Section A - 24 Hr Update-Section A only Date of Service: 01/09/24 Section B - Complete if H&P > 30 days Chief Complaint: Jc's esophagus Details of Present Illness: Macular degeneration of right eye Type 2 diabetes mellitus without complications Essential hypertension Prostate cancer HTN (hypertension) Hyperlipemia PVD (peripheral vascular disease) COPD (chronic obstructive pulmonary disease) Surgical History Hx of colonoscopy History of esophagogastroduodenoscopy (EGD) Aortic valve replaced (~01/19/23) S/p bilateral carotid endarterectomy History of hip replacement History of cataract surgery History of inguinal hernia repair History of hernia surgery History of facial surgery Relevant Social History: None Present Medications: see Short Stay Collaborative assessment Allergies: Allergies Allergy/AdvReac Type Severity Reaction Status Date / Time lisinopril Allergy Severe Swelling Uncoded 08/15/23 08:54 Review of Systems Review of Systems Comment: Ten point ROS negative Exam Exam Comment: Gen appear: No acute distress HEENT: no icterus Chest: No overt resp distress Abd: soft, nontender, nondistended Psych: Stable affect, answering questions appropriately Neuro: A/Ox3 noted to move all extremities spontaneously Ext: no peripheral edema Plan Diagnosis/Plan: Unchanged I have reviewed the history and physical and performed a pertinent physical examination on my patient. No changes have occurred unless specified. Time Spent With Patient Time: Total time managing care of this patient today ____ minutes.
[2024-01-09 11:16] VITALS: BP 141/67; PULSE 67; RESP 12; TEMP 36.1; O2SAT 97
[2024-01-09 11:31] VITALS: BP 132/68; PULSE 63; RESP 12; TEMP 36.1; O2SAT 95
--- NOTE | 2024-01-09 12:43 | P.OP_ITS ---
Operative Note Operative Note Date of Service: 01/09/24 Narrative: Procedure: Esophagogastroduodenoscopy Endoscopist: Marie Swanson MD Indication: Jc's esophagus Anesthesia Provider: Milla Luque CRNA Anesthesia Type: MAC ?? EGD Procedure:?? The procedure, indications, preparation and potential complications were reviewed with the patient, who indicated understanding and gave written informed consent to proceed. A physical exam was performed. The endoscope was introduced through the mouth, and advanced to the second part of duodenum. The mucosa was carefully examined on slow withdrawal of the endoscope. The patient tolerated the procedure well. There were no immediate complications.? ? EGD Findings:? * Esophagus:? Normal mucosa noted in the entire esophagus. The Z line was at 36 cm and irregular up to 34 cm with a small island at 33 cm. Cold forceps biopsies were taken for Jc's surveillance. These will also be sent out for tissue Cypher. * Stomach:? Prominent gastric folds with numerous polyps were noted in the fundus and body of the stomach. Cold forceps biopsies were taken from a few sales representative womens health polyps. Retroflexion was performed in the fundus that showed a Hill grade II hiatal hernia. * Duodenum:? 2 duodenal polyps in the proximal bulb were noted. Cold forceps biopsies were taken for histology. Remaining mucosa was normal in the examined duodenum. ? EGD Impressions:? * Irregular Z-line (biopsy) * Hiatal hernia * Gastric polyps (biopsy) * Duodenal polyps (biopsy) ?? Recommendations:?? * Follow biopsy results. Our office will call or send a letter with results within 7-10 days. * Continue PPI therapy. * Resume anticoagulation today. * If there is no dysplasia on biopsies from this exam, will defer further surveillance endoscopy due to extremely low risk of progression. Above has been reviewed with the patient.
== END 2024-01-09 12:16 | disposition home or self-care (01) ==
PROVIDERS: PCP Nurse Practitioner Family; Visit Provider Internal Medicine
PROC: 0DJ08ZZ Inspection of Upper Intestinal Tract, Via Natural or Artificial Opening Endoscopic (ICD-10-PCS; CPT 43235; principal; 2024-01-09 09:40)
DX: K21.9 Gastro-esophageal reflux disease without esophagitis (principal); K22.89 Other specified disease of esophagus; K31.7 Polyp of stomach and duodenum; K44.9 Diaphragmatic hernia without obstruction or gangrene; E11.9 Type 2 diabetes mellitus without complications; I10 Essential (primary) hypertension; J44.9 Chronic obstructive pulmonary disease, unspecified; D73.5 Infarction of spleen; Z95.2 Presence of prosthetic heart valve; Z79.01 Long term (current) use of anticoagulants; Z79.899 Other long term (current) drug therapy
CPT/HCPCS: 43239; 82947; 88305; 88313; 88342; J2704

== ENCOUNTER → 2024-01-09 08:29 | Outpatient (BNV) | payer OTHER, SELFPAY ==
[2023-04-05 09:10] VITALS: BP 114/72; BP 124/60; BMI 25.3
== END ==
PROVIDERS: PCP Nurse Practitioner Family; Visit Provider Internal Medicine
DX: K22.70 Barrett's esophagus without dysplasia (principal); K31.7 Polyp of stomach and duodenum
CPT/HCPCS: 43239

== ENCOUNTER → 2024-03-07 11:14 | Outpatient (REF) | payer OTHER, SELFPAY ==
[2023-04-05 09:10] VITALS: BP 114/72; BP 124/60; BMI 25.3
--- NOTE | 2024-03-07 11:17 | CA_ITS ---
Transthoracic Echocardiogram Patient (Last, First, Middle): Amaury Guzman, Gender: Male Date of : 1940 Age: 83 Procedure Date: 03/07/2024 Procedure Type: Transthoracic Echocardiogram Location: OP Height: 160.02 cm Weight: 58.97 kg BSA: 1.61 m2 Heart Rate: bpm BP: 138 / 62 mmHg Merchandise Flow Team Leader: TO Referring MD: Simeon López MD Security Team Lead: Simeon López MD Symptoms: Z95.2 - Presence of prosthetic heart valve Study Quality: Fair ECG Rhythm: Sinus Conclusions: - 1. Normal LV ejection fraction of 65-70% with moderate asymmetric septal hypertrophy - with impaired relaxation filling pattern 2. Normally function bioprosthetic aortic valve with mean gradient of 9 mmHg with mild periprosthetic aortic regurgitation 3. Normal RV systolic pressure 4. No gross pericardial effusion Findings Procedure Information The study quality is limited by the patients inability to tolerate the test. Left Ventricle Normal left ventricular size, thickness, and systolic function. The visually estimated ejection fraction is between 65-70%. Spectral Doppler is indicative of an impaired relaxation filling pattern. E/E prime ratio is between 8 and 15 consistent with indeterminate filling pressures. There is moderate septal asymmetric hypertrophy. Right Ventricle Normal right ventricular cavity size and systolic function. Atria The left atrium is mildly dilated. Interatrial shunt cannot be excluded. The right atrium is normal in size. Aortic Valve A bioprosthetic aortic valve is present. The prosthetic aortic valve appears to be functioning normally. The mean gradient is 9 mmHg. There is mild aortic valve regurgitation. The aortic valve regurgitation jet is eccentric. mild eccentric periprosthetic regurgitation noted Mitral Valve There is mild anterior and posterior mitral leaflet thickening. There is mild mitral annular calcification. There is mild mitral valve regurgitation. There is no mitral valve stenosis. Pulmonic Valve The pulmonic valve is likely normal. There is trace pulmonic valve regurgitation. Tricuspid Valve Normal tricuspid valve structure. There is mild tricuspid valve regurgitation. The right ventricular systolic pressure is normal. The right ventricular systolic pressure is 18 mmHg. Normal right atrial pressure. There is no evidence of pulmonary hypertension. Great Vessels All visible segments of the aorta are normal in size. The pulmonary artery was not well visualized. Venous The inferior vena cava is normal in size and collapses greater than 50% with inspiration. Pericardium/Pleural There is no evidence of pericardial effusion. Prior Study Comparison No significant change compared to prior study dated: 02/14/2023. Measurements 2D Linear Measurements IVSd: 1.55 0.6-0.9/0.6-1.0 cm LVIDd: 3.33 3.9-5.3/4.2-5.9 cm LVIDd Index: 2.07 2.4-3.2/2.2-3.1 cm/m2 LVIDs: 2.09 2.0-3.6 cm LVPWd: 1.13 0.7-1.1 cm LA Diam: 3.70 2.7-3.8/3.0-4.0 cm LAIDs Index: 2.30 1.5-2.3 cm/m2 LV Mass: 187.36 67-162/88-224 g LV Mass Index: 116.37 43-95/49-115 g/m2 LVOT Diam: 2.20 3.0+(-)1.3 cm 2D Systolic Function EF 4C: 60.50 >55% EF 2C: 70.40 >55% EF BiP: 66.30 >55% Mitral Valve MV Pk E: 0.60 MV PK A: 0.75 MV Decel Time: 263.00 E/A: 0.80 E'Lateral: 9.68 E'Medial: 6.31 E/E' Med: 9.60 E/E' Lat: 6.20 PHT: 77.00 MVA PHT: 2.86 Decel Turner: 2.30 Aortic Valve AoV Pk Derrell: 2.05 AoV Mn Derrell: 1.43 AoV VTI: 0.41 AoV Pk Grad: 17.00 Aov Mn Grad: 9.00 BLAISE Cont.VTI: 1.98 AI Pk Derrell: 4.60 AI Turner: 3.01 LVOT LVOT Pk Derrell: 1.05 LVOT Mn Derrell: 0.68 LVOT VTI: 0.21 LVOT Pk Grad: 4.00 LVOT Mn Grad: 3.00 LVOT Diam: 2.20 LVOT Area: 3.80 Diastolic Function MV Pk E: 0.60 MV Pk A: 0.75 E/A: 0.80 E'Medial: 6.31 E/E' Med: 9.60 E' Laterial: 9.68 E/E' Lat: 6.20 Right Ventricle TAPSE (mm): 22.40 TVS' Derrell: 12.00 Tricuspid Valve TR Pk Derrell: 1.93 TR Pk Grad: 15.00 RA Press: 3.00 RVSP: 18.00 Great Vessels Aorta Sinus of Valsalva: 3.87 2.0-3.5 cm Ao Asc: 3.60 2.1-3.4 cm Updated in Other Vendor System with Status of Final Simeon López MD electronically signed on 03/08/2024 3:00:31 PM with status of Final
== END ==
LOC: HO.CARD 11:14
PROVIDERS: PCP Nurse Practitioner Family; Referring Provider Internal Medicine Cardiovascular Disease; Visit Provider Internal Medicine Cardiovascular Disease
DX: Z95.2 Presence of prosthetic heart valve (principal)
CPT/HCPCS: 93306

== ENCOUNTER → 2024-03-07 11:17 | Outpatient (BNV) | payer OTHER, SELFPAY ==
[2023-04-05 09:10] VITALS: BP 114/72; BP 124/60; BMI 25.3
== END ==
PROVIDERS: PCP Nurse Practitioner Family; Referring Provider Internal Medicine Cardiovascular Disease; Visit Provider Internal Medicine Cardiovascular Disease
DX: T82.03XA Leakage of heart valve prosthesis, initial encounter (principal); I34.0 Nonrheumatic mitral (valve) insufficiency; I36.1 Nonrheumatic tricuspid (valve) insufficiency; I42.2 Other hypertrophic cardiomyopathy
CPT/HCPCS: 93306

== ENCOUNTER 2024-04-10 10:39 | Outpatient (REF) | payer OTHER, SELFPAY ==
[2023-04-05 09:10] VITALS: BP 114/72; BP 124/60; BMI 25.3
[2024-04-10 12:10] LABS: Hematocrit 35.4 % (42.0-52.0); Hemoglobin 12.6 g/dl (14.0-18.0); Mean Corpuscular HGB Conc 35.6 g/dl (31.0-36.0); Mean Corpuscular Hemoglobin 28.6 pg (27.0-33.0); Mean Corpuscular Volume 80.5 fL (80.0-98.0); Mean Platelet Volume 9.3 fL (9.4-12.4); Platelet Count 212 X10*3/uL (160-400); White Blood Count 8.5 X10*3/uL (4.8-10.8)
[2024-04-10 12:43] LABS: Alanine Aminotransferase 21 U/L (0-40); Albumin Level 4.5 g/dL (3.5-5.0); Alkaline Phosphatase 75 U/L (39-117); Anion Gap 12 (12-20); Aspartate Amino Transferase 18 U/L (5-37); Bilirubin Total 1.2 mg/dL (0.0-1.0); Blood Urea Nitrogen 12 mg/dL (9-16); Carbon Dioxide 27 mmol/L (22-29); Chloride 90 mmol/L (96-108); Estimated Glomerular Filt Rate > 60; Glucose Random 153 mg/dL (60-115); Potassium 4.3 mmol/L (3.3-5.1); Sodium 125 mmol/L (135-145); Total Protein 7.4 g/dL (6.5-8.0)
== END 2024-04-10 10:40 | disposition home or self-care (01) ==
LOC: HO.LAB 10:39
PROVIDERS: PCP Nurse Practitioner Family; Visit Provider Internal Medicine
DX: R11.0 Nausea (principal)
CPT/HCPCS: 36415; 80053; 85027

== ENCOUNTER 2024-04-10 10:39 | Outpatient (AMB) | payer OTHER, SELFPAY ==
[2023-04-05 09:10] VITALS: BP 114/72; BP 124/60; BMI 25.3
--- NOTE | 2024-04-10 10:41 | A.OFFVIS_ITS ---
Vital Signs 04/10/24 10:44 Height 5 ft 3 in Weight 130 lb 1.164 oz BMI 23.0 Blood Pressure Location Lt brachial Position Sitting Intake Visit Reasons: Follow up Jenkins's esophagus Intake Note: Amaury presents in the office as a follow up for Barretts esophagus. CC: He states that he is having concerns - has nausea every day. He states that he had a little bit of diarrhea the past two days. 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 [place] Factor V heterozygous, hx of splenic infarcts in on eliquis, R renal hemorrhagic cyst ([facility]), commuity dwelling gent, who is here to discuss surveillance endoscopy for BE. [facility] and no dysplasia noted at that time. Continues with pantoprazole 40 once daily in AM. No reflux, nausea or vomiting. Continues to smoke almost half a pack a day. 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 01/09/24: EGD * Irregular Z-line (biopsy) * Hiatal hernia * Gastric polyps (biopsy) * Duodenal polyps (biopsy) Path: (C): TissueCypher results: Risk Class: Low Risk Score: 1.5 (range 0 ? 10) 5-year probability of progression: 0.60% See entire report in the EMR - report/pathology section as a scanned report (camera icon). Electronically Signed By: Jenna Paiz 02/14/24 190 Diagnosis A. Duodenal polyp, biopsy: Duodenal mucosa with focal polypoid gastric heterotopia; negative for dysplasia. B. Gastric polyps: Fundic gland polyps with focal minimal chronic inactive inflammation; negative for H pylori, intestinal metaplasia and dysplasia. C. Gastroesophageal junction, biopsy: Squamocolumnar mucosa with mild chronic inflammation and focal intestinal metaplasia; negative for dysplasia (see comment). 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 Clinical and endoscopic correlation is advised?? 04/10/24: Seen for follow up. Here with his son. REports significant nausea gualberto in the mornings. Sometimes also has lightheadedness. This is in the absence of any abd pain. EGD and biopsy findings reviewed including tissue cypher resutls. [facility] Medical History HTN (hypertension) Aortic stenosis Macular degeneration of right eye Type 2 diabetes mellitus without complications Essential hypertension Prostate cancer Hyperlipemia PVD (peripheral vascular disease) COPD (chronic obstructive pulmonary disease) Surgical History Hx of prostatectomy S/P TAVR (transcatheter aortic valve replacement) Hx of colonoscopy History of esophagogastroduodenoscopy (EGD) Aortic valve replaced (~01/19/23) S/p bilateral carotid endarterectomy History of hip replacement History of cataract surgery History of inguinal hernia repair History of hernia surgery History of facial surgery Family History Mother No problems noted. Father No problems noted. Social History (Updated 06/26/24 @ 10:50 by KELSI Smith) Household Members: Significant Other Household Members Other:: girlfriend Housing: Apartment Do you presently have visiting nurse or other home services: No Alcohol intake: former Patient Tobacco Use Status: Current everyday Tobacco user Tobacco use type: Cigarette Cigarette Packs Per Day: 0.5 Cigarettes Per Day: 8 Years Smoked: 65, started at age 16, 1PPD e-Cigarette/Vaping Use: Never Used Second Hand Smoke Exposure: No Advance Directives Date on File: 11/20/21 service: Yes ([employer]) Current occupational status: retired Review of Systems Const All systems reviewed & are unremarkable except as noted in HPI and below Physical Exam Vital Signs: BMI result Body Mass Index 23.0 Assessment & Plan Assessment & Plan (1) Jenkins esophagus: Code(s): K22.70 - Jenkins's esophagus without dysplasia Category: Medical (2) Nausea: Code(s): R11.0 - Nausea Category: Medical (3) GERD (gastroesophageal reflux disease): Code(s): K21.9 - Gastro-esophageal reflux disease without esophagitis Category: Medical (4) Current smoker: Code(s): F17.200 - Nicotine dependence, unspecified, uncomplicated Category: Social Hx Plan 1. Reviewed findings on EGD and given low risk of progression of BE based on tissue cypher, with mutual decision making we are electing to forego further surveillance. He should cont the ppi while hes on anticoagulation 2. Nausea is relatively more recent. Does not appear to be 2/2 reflux given sx description. ?gallstones. CMP and US abd ordered Follow up in 1 year - will call pt for actionable findings on labs/US. Orders: Orders US abdomen complete 04/10/24 R11.0 - Nausea Complete Blood Count no Diff 04/10/24 R11.0 - Nausea Comprehensive Met. Panel 04/10/24 R11.0 - Nausea Coding Level of Care Code Est Pt Level 4 (12497) Diagnoses Jenkins esophagus K22.70 Nausea R11.0 GERD (gastroesophageal reflux disease) K21.9 Current smoker F17.200
[2024-04-10 10:44] VITALS: BMI 23.0
== END 2024-04-10 11:14 | disposition home or self-care (01) ==
PROVIDERS: PCP Nurse Practitioner Family; Visit Provider Internal Medicine
DX: K22.70 Barrett's esophagus without dysplasia (principal); R11.0 Nausea; K21.9 Gastro-esophageal reflux disease without esophagitis; F17.200 Nicotine dependence, unspecified, uncomplicated
CPT/HCPCS: 99214

== ENCOUNTER 2024-04-26 09:06 | Outpatient (REF) | payer OTHER, SELFPAY ==
[2023-04-05 09:10] VITALS: BP 114/72; BP 124/60; BMI 25.3
--- NOTE | ~2024-04-26 | US_ITS ---
EXAMINATION: US ABDOMEN COMPLETE CLINICAL INFORMATION: Nausea. COMPARISON: None available. TECHNIQUE: Real-time imaging of the abdominal viscera. FINDINGS: PANCREAS: Normal. ABDOMINAL AORTA: The proximal, mid, and distal segments are normal in caliber but demonstrate atherosclerotic changes. INFERIOR VENA CAVA: Visualized portions are normal. LIVER: Normal. The liver is normal in size. The liver contour is normal. Parenchymal echogenicity is normal. No focal hepatic lesion. There is no intrahepatic biliary duct dilatation seen. GALLBLADDER: A small mobile 7 mm sludge ball is present in the gallbladder. The gallbladder is physiologically distended without evidence of shadowing stones, polyps, wall thickening or pericholecystic fluid. COMMON BILE DUCT: Normal in caliber measuring 0.5 cm in diameter. RIGHT KIDNEY: 2 benign Bosniak class I renal cysts are noted which require no additional imaging or follow-up. No solid renal masses are seen. No hydronephrosis. No renal calculi or focal parenchymal lesions. The kidney measures 10.7 cm in maximum dimension. LEFT KIDNEY: Normal. No hydronephrosis. No renal calculi or focal parenchymal lesions. The kidney measures 11.0 cm in maximum dimension. SPLEEN: Normal. The spleen measures 9.3 cm in maximum dimension. FREE FLUID: None. US/US abdomen complete IMPRESSION: A cause for the patient's nausea has not been found. A mobile sludge ball is present in the gallbladder. Electronically signed by: Doe Gaspar MD 05/01/2024 04:09 PM EDT
== END 2024-04-26 09:07 | disposition home or self-care (01) ==
LOC: HO.US 09:06
PROVIDERS: Visit Provider Internal Medicine
DX: R11.0 Nausea (principal)
CPT/HCPCS: 76700

== ENCOUNTER 2024-04-29 08:03 | Outpatient (AMB) | payer OTHER, SELFPAY ==
[2023-04-05 09:10] VITALS: BP 114/72; BP 124/60; BMI 25.3
[2024-04-29 08:16] VITALS: BP 128/62; PULSE 81; BMI 22.8
--- NOTE | 2024-04-29 08:16 | MHC.OFFVIS ---
Vital Signs 04/29/24 08:16 Height 5 ft 3 in Weight 128 lb 11.999 oz BMI 22.8 BP 128/62 Blood Pressure Location Rt brachial Position Sitting Pulse 81 Pulse Source Pulse Oximeter Intake Visit Reasons: ED Follow up/BP/[facility] [employer] Required: No Commercial Census Taker: Commercial Census Taker Present Allergies lisinopril Allergy (Severe, Uncoded 04/29/24 08:18) Swelling Medication List - Last Reconciled 04/29/24 by Sola Garzon NP-C albuterol sulfate 90 mcg/actuation 2 inhalations inhalation QID PRN amlodipine 10 mg PO BEDTIME apixaban 5 mg PO BID atorvastatin 20 mg PO DAILY blood sugar diagnostic (FreeStyle Lite Strips) Test once daily blood-glucose meter (FreeStyle Lite Meter kit) As directed citalopram 20 mg PO DAILY lancets (FreeStyle Lancets) Test once daily melatonin 5 mg PO BEDTIME PRN metformin 750 mg PO BID ondansetron 4 mg PO Q6-8H PRN pantoprazole 40 mg PO DAILY trazodone 50 mg PO BEDTIME HPI HPI ED Follow up/BP/[facility]: Details: Amaury is an 83-year-old male with past medical history of hypertension, hyperlipidemia, diabetes, COPD, CVA, vascular disease, bilateral carotid endarterectomy, nonobstructive CAD, smoking, aortic stenosis status post TAVR who presents for follow-up after recent hospitalization at [facility] for hyponatremia. His hydrochlorothiazide was stopped at that time. Today he reports he has been doing well since his hospital discharge. His home blood pressures are ranging from 120-140 systolic. No chest discomfort at rest or with activity. No shortness of breath, PND, orthopnea or edema. No lightheadedness, presyncope, syncope, falls. He is trying to increase his walking and tells me he tolerates it well. Taking all meds as directed. No bleeding issues reported. Son is present. [facility] Medical History HTN (hypertension) Aortic stenosis Macular degeneration of right eye Type 2 diabetes mellitus without complications Essential hypertension Prostate cancer Hyperlipemia PVD (peripheral vascular disease) COPD (chronic obstructive pulmonary disease) Surgical History Hx of prostatectomy S/P TAVR (transcatheter aortic valve replacement) Hx of colonoscopy History of esophagogastroduodenoscopy (EGD) Aortic valve replaced (~01/19/23) S/p bilateral carotid endarterectomy History of hip replacement History of cataract surgery History of inguinal hernia repair History of hernia surgery History of facial surgery Family History Mother No problems noted. Father No problems noted. Social History Household Members: Significant Other Household Members Other:: girlfriend Housing: Apartment Do you presently have visiting nurse or other home services: No Alcohol intake: former Patient Tobacco Use Status: Current everyday Tobacco user Tobacco use type: Cigarette Cigarette Packs Per Day: 0.5 Cigarettes Per Day: 8 Years Smoked: 65 e-Cigarette/Vaping Use: Never Used Second Hand Smoke Exposure: No Advance Directives Date on File: 11/20/21 service: Yes ([employer]) Current occupational status: retired Review of Systems Const All systems reviewed & are unremarkable except as noted in HPI and below ENT Denies dizziness Card Denies chest pain, Denies chest pain at rest, Denies chest pain with activity, Denies rapid heart rate, Denies pedal edema, Denies edema, Denies leg edema, Denies lightheadedness, Denies palpitations, Denies dyspnea, Denies dyspnea on exertion and Denies orthopnea Resp Denies cough, Denies dyspnea and Denies dyspnea on exertion GI Denies hematochezia and Denies change in stool character Musc Denies abnormal gait, Denies limited range of motion, Denies muscle cramps, Denies muscle weakness, Denies numbness, Denies radiating pain into limb, Denies stiffness and Denies tingling Neuro Denies abnormal gait, Denies dizziness, Denies numbness and Denies tingling Endo Denies palpitations Physical Exam Vital Signs: Last Vital Signs Pulse 81 04/29/24 08:16 BP 128/62 04/29/24 08:16 BMI result Body Mass Index 22.8 Const General: cooperative, healthy appearing, comfortable and no acute distress Orientation/consciousness: patient oriented x3 Neck Neck: Yes normal visual inspection and Yes no JVD Resp Effort & Inspection: normal respiratory effort Auscultation: clear to auscultation bilaterally, no crackles, no rales, no rhonchi and no wheezes Cardio Jugular venous distension: no JVD Rate: regular rate Rhythm: regular rhythm Heart sounds: S1 normal heart sound present, S2 normal heart sound present, no murmurs and no rubs Neuro General: patient oriented x3 Extrem General: Yes normal to inspection, No no pedal edema and No calf tenderness Psych Appearance: grossly normal Mental Status: mental status grossly normal Speech and movement: Normal speech and movement present Assessment & Plan Assessment & Plan (1) HTN (hypertension): Code(s): I10 - Essential (primary) hypertension Category: Medical Plan: History of hypertension. He had been on hydrochlorothiazide and amlodipine. He was experiencing increasing weakness and was admitted to [facility] on 04/16/2024 for hyponatremia. His hydrochlorothiazide was stopped. He has done well since then. He tells me he had labs done by his PCP and his sodium is now near normal. Home blood pressures have been monitored. His systolic is ranging 120s to 140s. Blood pressure in the office 128/62. Will continue on amlodipine 10 mg daily. Instructed to call this office if his systolic is running greater than 150 at which time an additional antihypertensive agent will need to be added. Continue low-salt diet. Continue activity as tolerated. (2) S/P TAVR (transcatheter aortic valve replacement): Comment: 26 mm Mary 3 valve, January of 2023 Code(s): Z95.2 - Presence of prosthetic heart valve Category: Surgical Plan: History of aortic stenosis status post TAVR 01/2023. Last echocardiogram 03/07/2024 showed EF 65-70%, moderate asymmetric septal hypertrophy, normally function bioprosthetic aortic valve with mean gradient 9 mmHg. No murmur present on exam. (3) PAD (peripheral artery disease): Comment: 10/24/2018 - atherectomy and plasty of left popliteal artery Code(s): I73.9 - Peripheral vascular disease, unspecified Category: Medical Plan: History of PAD, no reports of claudication. Follows with Dr. Santos. (4) Carotid stenosis, bilateral: Comment: 2014 and 2015 - right and left carotid endarterectomy Code(s): I65.23 - Occlusion and stenosis of bilateral carotid arteries Category: Medical Plan: Last carotid ultrasound 04/04/2023 showing right ICA 0-49% stenosis, left ICA 0 -49% stenosis. He is on Eliquis for anticoagulation. He is on atorvastatin. Follows with Dr. Santos (5) Chronic anticoagulation: Code(s): Z79.01 - assisted (current) use of anticoagulants Category: Medical Plan: History of splenic infarct status post TAVR. Has a hypercoagulable state. Been on anticoagulation with Eliquis. No bleeding issues reported. (6) Hyperlipemia: Code(s): E78.5 - Hyperlipidemia, unspecified Category: Medical Plan: [place] LDL goal less than 70. No recent lipid profile in our system. Labs followed by his PCP. Continue on atorvastatin 40 mg daily. Will forward this note to his PCP for review. (7) Hospital discharge follow-up: Code(s): Z09 - Encounter for follow-up examination after completed treatment for conditions other than malignant neoplasm Category: Medical Plan: As above Plan Time spent on chart review, documentation, interview and assessment Coding Level of Care Code Est Pt Level 4 (73865) Diagnoses HTN (hypertension) I10 S/P TAVR (transcatheter aortic valve replacement) Z95.2 PAD (peripheral artery disease) I73.9 Carotid stenosis, bilateral I65.23 Chronic anticoagulation Z79.01 Hyperlipemia E78.5 Hospital discharge follow-up Z09 Time Spent (min) 30
== END 2024-04-29 08:42 | disposition home or self-care (01) ==
PROVIDERS: PCP Nurse Practitioner Family; Visit Provider Nurse Practitioner Family
DX: I10 Essential (primary) hypertension (principal); Z95.2 Presence of prosthetic heart valve; I73.9 Peripheral vascular disease, unspecified; I65.23 Occlusion and stenosis of bilateral carotid arteries; Z79.01 Long term (current) use of anticoagulants; E78.5 Hyperlipidemia, unspecified; Z09 Encounter for follow-up examination after completed treatment for conditions other than malignant neoplasm
CPT/HCPCS: 99214

== ENCOUNTER → 2024-04-29 08:03 | Outpatient (BNVA) | payer OTHER, SELFPAY ==
[2023-04-05 09:10] VITALS: BP 114/72; BP 124/60; BMI 25.3
== END ==
PROVIDERS: PCP Nurse Practitioner Family; Visit Provider Nurse Practitioner Family
DX: Z09 Encounter for follow-up examination after completed treatment for conditions other than malignant neoplasm (principal); I10 Essential (primary) hypertension; I73.9 Peripheral vascular disease, unspecified; I65.23 Occlusion and stenosis of bilateral carotid arteries; E78.5 Hyperlipidemia, unspecified; Z95.2 Presence of prosthetic heart valve; Z79.01 Long term (current) use of anticoagulants
CPT/HCPCS: 99212

== ENCOUNTER 2024-06-26 10:35 | Outpatient (AMB) | payer MEDICARE, SELFPAY ==
[2023-04-05 09:10] VITALS: BP 114/72; BP 124/60; BMI 25.3
[2024-06-26 10:41] VITALS: BP 124/64; PULSE 73; O2SAT 98; BMI 23.7
--- NOTE | 2024-06-26 10:41 | MHC.OFFVIS ---
Vital Signs 06/26/24 10:41 Height 5 ft 3 in Weight 134 lb BMI 23.7 BP 124/64 Blood Pressure Location Rt brachial Position Sitting Pulse 73 Pulse Source Doppler Pulse Oximetry (%) 98 Oxygen Delivery Method Room Air Intake Visit Reasons: copd Allergies hydrochlorothiazide Allergy (Severe, Verified 06/26/24 10:46) low sodium lisinopril Allergy (Severe, Uncoded 04/29/24 08:18) Swelling HPI HPI copd: Details: 83-year-old gentleman active 50+ pack-year smoker with underlying COPD of unclear severity presents for evaluation. Patient states that he has been using albuterol MDI with suboptimal control of his symptoms. He denies been currently on maintenance inhaled bronchodilators. Patient does not have recent pulmonary function testing. He does complain of significant dyspnea on exertion with minimal exertion. Patient was employed in [employer] with no exposure to industrial dusts. 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 [facility] Medical History HTN (hypertension) Aortic stenosis Macular degeneration of right eye Type 2 diabetes mellitus without complications Essential hypertension Prostate cancer Hyperlipemia PVD (peripheral vascular disease) COPD (chronic obstructive pulmonary disease) Surgical History Hx of prostatectomy S/P TAVR (transcatheter aortic valve replacement) Hx of colonoscopy History of esophagogastroduodenoscopy (EGD) Aortic valve replaced (~01/19/23) S/p bilateral carotid endarterectomy History of hip replacement History of cataract surgery History of inguinal hernia repair History of hernia surgery History of facial surgery Family History Mother No problems noted. Father No problems noted. Social History (Updated 06/26/24 @ 10:50 by KELSI Smith) Household Members: Significant Other Household Members Other:: girlfriend Housing: Apartment Do you presently have visiting nurse or other home services: No Alcohol intake: former Patient Tobacco Use Status: Current everyday Tobacco user Tobacco use type: Cigarette Cigarette Packs Per Day: 0.5 Cigarettes Per Day: 8 Years Smoked: 65, started at age 16, 1PPD e-Cigarette/Vaping Use: Never Used Second Hand Smoke Exposure: No Advance Directives Date on File: 11/20/21 service: Yes ( [employer]) Current occupational status: retired Review of Systems Const Denies daytime sleepiness, Denies excessive sweating, Denies fatigue, Denies fever(s), Denies lethargy, Denies malaise, Denies night sweats, Denies snoring and Denies weight loss Eyes Denies blurry vision and Denies itchy eyes ENT Denies nasal congestion, Denies post nasal drip, Denies sinus pain, Denies sinus pressure and Denies other ( Thrush) Card Denies chest pain, Denies pedal edema, Denies dyspnea, Reports dyspnea on exertion, Denies orthopnea and Denies paroxysmal nocturnal dyspnea Resp Denies cough, Denies hemoptysis, Denies excessive phlegm production, Denies dyspnea, Reports dyspnea on exertion, Denies snoring and Denies wheezing GI Denies abdominal pain and Denies heartburn Musc Denies myalgias, Denies arthralgias and Denies joint swelling Skin/Breast Denies rash Neuro Denies memory loss and Denies seizure-like activity Psych Denies abnormal sleep pattern, Denies anxiety and Denies memory loss Endo Denies excessive sweating, Denies fatigue and Denies heat intolerance Prosper/Lymph Denies easy bruising Aller/Immun Denies itchy eyes, Denies seasonal rhinorrhea and Denies wheezing Physical Exam Vital Signs: Last Vital Signs Pulse 73 06/26/24 10:41 BP 124/64 06/26/24 10:41 Pulse Ox 98 06/26/24 10:41 Oxygen Delivery Method Room Air 06/26/24 10:41 BMI result Body Mass Index 23.7 Const General: no acute distress and alert Nutritional Appearance: not obese Orientation/consciousness: Other orientation findings ( oriented) HEENT Head: Yes atraumatic Eyes General: appearance normal, both eyes and all related structures Sclerae: sclerae normal EOM: EOMs intact bilaterally Neck Neck: Yes supple Lymphatic: no lymphadenopathy noted Resp Effort & Inspection: normal respiratory effort and no use of accessory muscles Auscultation: clear to auscultation bilaterally Cardio Rate: regular rate Rhythm: regular rhythm Heart sounds: no gallops, no murmurs and no rubs Skin General skin exam: other ( warm) Extrem General: No clubbing, No cyanosis and No edema Assessment & Plan Assessment & Plan (1) COPD (chronic obstructive pulmonary disease): Code(s): J44.9 - Chronic obstructive pulmonary disease, unspecified Category: Medical Plan: Underlying COPD of unclear severity suboptimally controlled on albuterol MDI. Will obtain full PFT. Will start on Anoro. (2) Dyspnea on exertion: Code(s): R06.09 - Other forms of dyspnea Category: Medical Plan: Likely multifactorial, will assess pulmonary component with PFT, does have underlying history of CAD equivalent and aortic stenosis status post TAVR. (3) Current smoker: Code(s): F17.200 - Nicotine dependence, unspecified, uncomplicated Category: Medical Plan: Results of recent CT chest reviewed, no worrisome nodules. Now outside screening criteria. Orders: Orders PFT pulmonary function test Today J44.9 - Chronic obstructive pulmonary disease, unspecified Medications: New umeclidinium-vilanterol 62.5-25 mcg/actuation (Anoro Ellipta) 1 inh inhalation DAILY 1 ea 6RF J44.9 - Chronic obstructive pulmonary disease, unspecified Coding Level of Care Code New Pt Level 4 (55607) Diagnoses COPD (chronic obstructive pulmonary disease) J44.9 Dyspnea on exertion R06.09 Current smoker F17.200
== END 2024-06-26 11:14 | disposition home or self-care (01) ==
LOC: HO.HPS 10:36
PROVIDERS: PCP Nurse Practitioner Family; Visit Provider Internal Medicine Pulmonary Disease
DX: J44.9 Chronic obstructive pulmonary disease, unspecified (principal); F17.210 Nicotine dependence, cigarettes, uncomplicated
CPT/HCPCS: 94060; 94727; 94729; 99204

== ENCOUNTER 2024-06-26 15:43 | Outpatient (REF) | payer OTHER, SELFPAY ==
[2023-04-05 09:10] VITALS: BP 114/72; BP 124/60; BMI 25.3
[2024-06-26 11:30] VITALS: PULSE 75; RESP 16; O2SAT 98
--- NOTE | 2024-06-26 16:00 | PFT_ITS ---
Flows: FEV1: 123 % of predicted at 2.63 L FVC: 139 % of predicted at 3.98 L FEV1/FVC: 66 % Bronchodilator response: Present in small to medium airways only Volumes: Total lung capacity: 109 % of predicted at 5.91 L Residual volume: 84 % of predicted at 1.84 L Slow vital capacity: 132 % of predicted at 4.07 L Expiratory reserve volume: 181 % of predicted at 1.51 L Diffusion capacity: Mildly decreased. Impression: Mild obstructive ventilatory defect with bronchodilator response present in small to medium airways only. Decreased diffusion capacity suggests emphysema. MTDD
== END 2024-06-26 15:44 | disposition home or self-care (01) ==
LOC: HO.RESP 15:43
PROVIDERS: PCP Nurse Practitioner Family; Visit Provider Internal Medicine Pulmonary Disease
DX: J44.9 Chronic obstructive pulmonary disease, unspecified (principal)
CPT/HCPCS: 94010; 94640; 94727; 94729; 99202

== ENCOUNTER 2024-07-17 10:02 | Outpatient (AMB) | payer MEDICARE, SELFPAY ==
[2023-04-05 09:10] VITALS: BP 114/72; BP 124/60; BMI 25.3
[2024-07-17 10:10] VITALS: BP 138/62; PULSE 76; O2SAT 99; BMI 24.0
--- NOTE | 2024-07-17 10:10 | A.OFFVIS_ITS ---
Vital Signs 07/17/24 10:10 Height 5 ft 3 in Weight 135 lb 9.349 oz BMI 24.0 BP 138/62 Blood Pressure Location Lt brachial Position Sitting Pulse 76 Pulse Source Doppler Pulse Oximetry (%) 99 Oxygen Delivery Method Room Air Intake Visit Reasons: COPD Allergies hydrochlorothiazide Allergy (Severe, Verified 06/26/24 10:46) low sodium lisinopril Allergy (Severe, Uncoded 04/29/24 08:18) Swelling HPI HPI COPD: Details: 83-year-old gentleman active 50+ pack-year smoker followed for underlying mild COPD and pulmonary nodules. He has completed his pulmonary function test that showed mild COPD and mild decrease in diffusion capacity. His symptoms are well on Stiolto and albuterol MDI. He denies recent exacerbations. [facility] Medical History HTN (hypertension) Aortic stenosis Macular degeneration of right eye Type 2 diabetes mellitus without complications Essential hypertension Prostate cancer Hyperlipemia PVD (peripheral vascular disease) COPD (chronic obstructive pulmonary disease) Surgical History Hx of prostatectomy S/P TAVR (transcatheter aortic valve replacement) Hx of colonoscopy History of esophagogastroduodenoscopy (EGD) Aortic valve replaced (~01/19/23) S/p bilateral carotid endarterectomy History of hip replacement History of cataract surgery History of inguinal hernia repair History of hernia surgery History of facial surgery Family History Mother No problems noted. Father No problems noted. Social History (Updated 06/26/24 @ 10:50 by KELSI Smith) Household Members: Significant Other Household Members Other:: girlfriend Housing: Apartment Do you presently have visiting nurse or other home services: No Alcohol intake: former Patient Tobacco Use Status: Current everyday Tobacco user Tobacco use type: Cigarette Cigarette Packs Per Day: 0.5 Cigarettes Per Day: 8 Years Smoked: 65, started at age 16, 1PPD e-Cigarette/Vaping Use: Never Used Second Hand Smoke Exposure: No Advance Directives Date on File: 11/20/21 service: Yes ([employer]) Current occupational status: retired Review of Systems Const Denies daytime sleepiness, Denies excessive sweating, Denies fatigue, Denies fever(s), Denies lethargy, Denies malaise, Denies night sweats, Denies snoring and Denies weight loss Eyes Denies blurry vision and Denies itchy eyes ENT Denies nasal congestion, Denies post nasal drip, Denies sinus pain, Denies sinus pressure and Denies other ( Thrush) Card Denies chest pain, Denies pedal edema, Denies dyspnea, Denies orthopnea and Denies paroxysmal nocturnal dyspnea Resp Denies cough, Denies hemoptysis, Denies excessive phlegm production, Denies dyspnea, Denies snoring and Denies wheezing GI Denies abdominal pain and Denies heartburn Musc Denies myalgias, Denies arthralgias and Denies joint swelling Skin/Breast Denies rash Neuro Denies memory loss and Denies seizure-like activity Psych Denies abnormal sleep pattern, Denies anxiety and Denies memory loss Endo Denies excessive sweating, Denies fatigue and Denies heat intolerance Prosper/Lymph Denies easy bruising Aller/Immun Denies itchy eyes, Denies seasonal rhinorrhea and Denies wheezing Physical Exam Vital Signs: Last Vital Signs Pulse 76 07/17/24 10:10 BP 138/62 07/17/24 10:10 Pulse Ox 99 07/17/24 10:10 Oxygen Delivery Method Room Air 07/17/24 10:10 BMI result Body Mass Index 24.0 Const General: no acute distress and alert Nutritional Appearance: not obese Orientation/consciousness: Other orientation findings ( oriented) HEENT Head: Yes atraumatic Eyes General: appearance normal, both eyes and all related structures Sclerae: sclerae normal EOM: EOMs intact bilaterally Neck Neck: Yes supple Lymphatic: no lymphadenopathy noted Resp Effort & Inspection: normal respiratory effort and no use of accessory muscles Auscultation: clear to auscultation bilaterally Cardio Rate: regular rate Rhythm: regular rhythm Heart sounds: no gallops, no murmurs and no rubs Skin General skin exam: other ( warm) Extrem General: No clubbing, No cyanosis and No edema Assessment & Plan Assessment & Plan (1) COPD (chronic obstructive pulmonary disease): Code(s): J44.9 - Chronic obstructive pulmonary disease, unspecified Category: Medical Plan: Well controlled on current regimen of Stiolto and albuterol MDI. Continue current regimen. (2) Current smoker: Code(s): F17.200 - Nicotine dependence, unspecified, uncomplicated Category: Medical Plan: Images from CT chest from January of 2024 reviewed, no worrisome nodules at this time. Patient is outside of lung cancer screening criteria. Coding Level of Care Code Est Pt Level 4 (35667) Diagnoses COPD (chronic obstructive pulmonary disease) J44.9 Current smoker F17.200
== END 2024-07-17 10:35 | disposition home or self-care (01) ==
PROVIDERS: PCP Nurse Practitioner Family; Visit Provider Internal Medicine Pulmonary Disease
DX: J44.9 Chronic obstructive pulmonary disease, unspecified (principal); F17.200 Nicotine dependence, unspecified, uncomplicated
CPT/HCPCS: 99214

== ENCOUNTER → 2024-07-17 10:02 | Outpatient (BNVA) | payer MEDICARE, OTHER, SELFPAY ==
[2023-04-05 09:10] VITALS: BP 114/72; BP 124/60; BMI 25.3
== END ==
PROVIDERS: PCP Nurse Practitioner Family; Visit Provider Internal Medicine Pulmonary Disease
DX: J44.9 Chronic obstructive pulmonary disease, unspecified (principal); F17.210 Nicotine dependence, cigarettes, uncomplicated
CPT/HCPCS: 99212

== ENCOUNTER 2024-08-06 08:50 | Outpatient (REF) | payer MEDICARE, OTHER, SELFPAY ==
[2023-04-05 09:10] VITALS: BP 114/72; BP 124/60; BMI 25.3
--- NOTE | ~2024-08-06 | US_ITS ---
EXAMINATION: US NONINVASIVE ASSESSMENT OF THE BILATERAL LOWER EXTREMITY WITH ARTERIAL DUPLEX AND ANKLE BRACHIAL INDICES (ABIS) CLINICAL INFORMATION: PVD COMPARISON: None available. TECHNIQUE: Duplex Doppler techniques with waveform analysis and measurement of velocities in the common femoral, profunda femoris, superficial femoral, popliteal and tibial arteries were performed. In addition, ankle pulse volume recordings, ankle pressure measurements and ankle brachial indices were obtained of the bilateral lower extremity arterial systems. The study was performed only at rest. FINDINGS: NONINVASIVE ASSESSMENT OF THE ARTERIES OF BILATERAL LOWER EXTREMITIES WITH ABIs: RIGHT LEG: Ankle-brachial index: 0.81 Ankle PVR: abnormal LEFT LEG: Ankle-brachial index: 1.2 Left ankle PVR: normal ALFONSO Reference: 0.9 - 1.4 = normal - no significant arterial disease 0.7 - 0.89 = mild peripheral arterial disease 0.51 - 0.69 = moderate peripheral arterial disease 0.50 = severe peripheral arterial disease RIGHT LOWER EXTREMITY DUPLEX ULTRASOUND: Common femoral artery: 134 cm/s. Diastolic flow reversal: present Profunda femoris artery: 131 cm/s. Diastolic flow reversal: present Superficial femoral artery (proximal): 63 cm/s. Diastolic flow reversal: present Superficial femoral artery (mid): 74 cm/s. Diastolic flow reversal: present Superficial femoral artery (distal): 61 cm/s. Diastolic flow reversal: present Popliteal artery: 94 cm/s Diastolic flow reversal: present Posterior tibial artery: 38 cm/s Diastolic flow reversal: present LEFT LOWER EXTREMITY DUPLEX ULTRASOUND: Common femoral artery: 134 cm/s. Diastolic flow reversal: present Profunda femoris artery: 121 cm/s. Diastolic flow reversal: present Superficial femoral artery (proximal): 106 cm/s. Diastolic flow reversal: present Superficial femoral artery (mid): 113 cm/s. Diastolic flow reversal: present Superficial femoral artery (distal): 105 cm/s. Diastolic flow reversal: present Popliteal artery: 114 cm/s Diastolic flow reversal: present Posterior tibial artery: 79 cm/s Diastolic flow reversal: present US/US arterial duplex BI w/ ALFONSO IMPRESSION: RIGHT LEG: Mild peripheral arterial disease by ALFONSO. No hemodynamically significant stenosis by duplex ultrasound. LEFT LEG: Normal ALFONSO. No hemodynamically significant stenosis by duplex ultrasound. Electronically signed by: Daniel Miles MD 09/02/2024 12:06 PM [facility]
--- NOTE | ~2024-08-06 | US_ITS ---
EXAMINATION: US EXTRACRANIAL CAROTID DUPLEX, BILATERAL CLINICAL INFORMATION: Carotid stenosis COMPARISON: 04/04/2023 TECHNIQUE: Real-time ultrasound and Doppler techniques (integrating B-mode 2-D vascular images, Doppler spectral analysis and color-flow Doppler imaging) were utilized to interrogate the extracranial carotid arteries, the vertebral arteries and proximal subclavian arteries bilaterally. The degree of stenosis is determined by criteria similar to NASCET. FINDINGS: Right Side: 1. There is mild atherosclerotic plaque seen in the bifurcation/proximal ICA region. 2. The common carotid artery PSV proximally is 101 cm/s and distally 69 cm/s. 3. The proximal internal carotid artery velocities are 102 cm/s systolic and 15 cm/s diastolic. 4. The proximal external carotid artery PSV is 101 cm/s. 5. The vertebral artery shows antegrade flow. 6. The subclavian artery waveforms are normal. Left Side: 1. There is mild atherosclerotic plaque seen in the bifurcation/proximal ICA region. 2. The common carotid artery PSV proximally is 79 cm/s and distally 70 cm/s. 3. The proximal internal carotid artery velocities are 89 cm/s systolic and 23 cm/s diastolic. 4. The proximal external carotid artery PSV is 45 cm/s. 5. The vertebral artery shows antegrade flow. 6. The subclavian artery waveforms are normal. US/US carotid duplex BI IMPRESSION: 1. RIGHT: Minimal, non-hemodynamically significant stenosis of the proximal right internal carotid artery corresponding to a 0-49% stenosis by velocity criteria. 2. LEFT: Minimal, non-hemodynamically significant stenosis of the proximal left internal carotid artery corresponding to a 0-49% stenosis by velocity criteria. 3. There is no change in the category severity of disease when compared to the previous study dated 04/04/2023. Electronically signed by: Doe Gaspar MD 08/07/2024 06:32 PM [facility]
== END 2024-08-06 08:51 | disposition home or self-care (01) ==
LOC: HO.US 08:50
PROVIDERS: PCP Nurse Practitioner Family; Visit Provider Surgery Vascular Surgery
DX: I73.9 Peripheral vascular disease, unspecified (principal); I65.23 Occlusion and stenosis of bilateral carotid arteries
CPT/HCPCS: 93880; 93922; 93925

== ENCOUNTER 2024-08-16 09:19 | Outpatient (AMB) | payer MEDICARE, MEDICAID, SELFPAY ==
[2023-04-05 09:10] VITALS: BP 114/72; BP 124/60; BMI 25.3
[2024-08-16 09:18] VITALS: BMI 23.9
--- NOTE | 2024-08-16 09:18 | MHC.OFFVIS ---
Vital Signs 08/16/24 09:18 Height 5 ft 3 in Weight 135 lb BMI 23.9 Intake Visit Reasons: 1 yr follow up s/p Arterial US 08/06/24 Intake Note: 1 yr follow up arterial US & Carotid US 08/06/24. Pt states he had low potassium and was hospitalized this past year. 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 He states he has been doing well and has no concerns today. He denies any claudication issues and denies any headaches, dizziness, lightheadedness, etc. His BP is well controlled. He does continue to smoke 6 cigarettes/day, which he is working on cutting down more/quitting. He states he remains active. He does continue to use a cane for his ongoing lower back pain. [facility] Medical History HTN (hypertension) Aortic stenosis Macular degeneration of right eye Type 2 diabetes mellitus without complications Essential hypertension Prostate cancer Hyperlipemia PVD (peripheral vascular disease) COPD (chronic obstructive pulmonary disease) Surgical History Hx of prostatectomy S/P TAVR (transcatheter aortic valve replacement) Hx of colonoscopy History of esophagogastroduodenoscopy (EGD) Aortic valve replaced (~01/19/23) S/p bilateral carotid endarterectomy History of hip replacement History of cataract surgery History of inguinal hernia repair History of hernia surgery History of facial surgery Family History Mother No problems noted. Father No problems noted. Social History Household Members: Significant Other Household Members Other:: girlfriend Housing: Apartment Do you presently have visiting nurse or other home services: No Alcohol intake: former Patient Tobacco Use Status: Current everyday Tobacco user Tobacco use type: Cigarette Cigarette Packs Per Day: 0.5 Cigarettes Per Day: 8 Years Smoked: 65, started at age 16, 1PPD e-Cigarette/Vaping Use: Never Used Second Hand Smoke Exposure: No Advance Directives Date on File: 11/20/21 service: Yes ([employer]) Current occupational status: retired Review of Systems Const Reports as per HPI and Denies weakness ENT Reports Normal hearing present and Denies dizziness Card Reports as per HPI, Denies chest pain, Denies chest pain at rest, Denies chest pain with activity, Denies dyspnea and Denies dyspnea on exertion Resp Reports as per HPI, Denies cough, Denies dyspnea and Denies dyspnea on exertion GI Reports as per HPI, Denies abdominal pain, Denies nausea and Denies vomiting Musc Denies numbness Skin/Breast Reports as per HPI, Denies erythema and Denies wounds Neuro Reports Normal hearing present, Denies dizziness, Denies numbness, Denies Sensory deficit (Neuro) and Denies weakness Psych Reports no additional complaints Endo Reports no additional complaints Physical Exam Vital Signs: BMI result Body Mass Index 23.9 Const General: healthy appearing and no acute distress Orientation/consciousness: patient oriented x3 HEENT Head: Yes normal to inspection Ears: hearing grossly normal bilaterally Mouth: Normal oral and palatal mucosa present Resp Effort & Inspection: normal respiratory effort and able to speak in complete sentences Auscultation: clear to auscultation bilaterally Cardio Jugular venous distension: no JVD Rate: regular rate Rhythm: regular rhythm Heart sounds: S1 normal heart sound present and S2 normal heart sound present Bruits: no abdominal aortic bruits, no carotid bruits, no femoral bruits and no renal bruits Peripheral pulses: Peripheral pulses 2+ throughout GI Inspection: Yes normal to inspection Palpation (GI): No Abdominal aortic bruit present Skin General skin exam: no rashes or lesions noted Wounds: no wounds Hair: normal Neuro General: patient oriented x3 Cranial nerves: Yes Normal hearing present Cognition (Neuro): normal cognition Gait exam (Neuro): Normal gait present Motor exam (neuro): 5/5 motor strength present throughout Sensory Exam: No Sensory deficit (Neuro) Extrem Other: Palpable DP pulses. General: Yes normal to inspection, Yes full ROM, Yes capillary refill normal and Yes normal gait Results Reviewed Results Reviewed: Lower arterial duplex US performed on 08/06: ABIs left PT 1.20, DP 1.14 (1.04 last year). right PT 0.75, DP 0.81 (last year 0.9) Bilateral Carotid Duplex: left - minimal, hemodynamically stable significant stenosis of the proximal LICA corresponding to a 0-49% stenosis by velocity criteria right - minimal, hemodynamically stable significant stenosis of the proximal KELLY corresponding to a 0-49% stenosis by velocity criteria No change in the category severity of dx when compared to the previous study, 04/04/23. Assessment & Plan Assessment & Plan (1) Carotid stenosis, bilateral: Comment: 2014 and 2015 - right and left carotid endarterectomy Code(s): I65.23 - Occlusion and stenosis of bilateral carotid arteries Category: Medical Plan: The pt was found to have asymptomatic carotid disease. We reviewed the s/s of a CVA/TIA. We also discussed risk factor modification including a well balanced healthy diet and continuing on BP and cholesterol medications. We discussed the importance of smoking cessation. We will have him follow up with us for routine surveillance in one year and we will order a carotid duplex US. If there are any changes or s/s of a CVA, we will see them sooner. Thank you for allowing us to participate in the pt's care. If there are any questions or concerns, please do not hesitate to contact us. (2) PAD (peripheral artery disease): Comment: 10/24/2018 - atherectomy and plasty of left popliteal artery Code(s): I73.9 - Peripheral vascular disease, unspecified Category: Medical Plan: Amaury remains with stable claudication. We reviewed the pathophysiology of PAD/carotid stenosis with the pt as well as the importance of smoking cessation, BP control, physical activity, and a well balanced healthy diet. The pt will continue to follow up with us for routine surveillance in one year, with an arterial duplex US of the lower extremities. Thank you for allowing us to participate in the pt's care. If there are any questions or concerns, please do not hesitate to contact us. Plan . Orders: Orders US carotid duplex BI 1 Year I65.23 - Occlusion and stenosis of bilateral carotid arteries US arterial duplex LE BI 1 Year I73.9 - Peripheral vascular disease, unspecified Coding Level of Care Code Est Pt Level 4 (84573) Diagnoses Carotid stenosis, bilateral I65.23 PAD (peripheral artery disease) I73.9 Comment review of US
--- OUTSIDE RECORDS SUMMARY | 2024-08-16 09:23 | XMS_ITS | Continuity of Care Document ---
Author Name [facility] Organization [facility] Care Team Providers Care Milling Planer Operator Name Role Phone [facility] Unavailable Unavailable Problems Combined list of problems from Department of Defense and Veterans Affairs facilities. It does not include entries that were removed or entered in error. Problem Status Onset Date Problem Type Date of Resolution Comments Source Prostate, Malign Neoplasm Active 006 Condition Sep 18, 2007 Entered By: MAGUI NAYLOR AM Comment: total prostatectomy 2005 [facility] POLYPS, COLON/LG BOWEL (BENIGN MAEGAN Active 003 Condition Oct 31, 2013 Entered By: MAGUI NAYLOR AM Comment: October, study fine, repeat 2019. [facility] Abnormal imaging Active Condition Feb 09, 2023 Entered By: YULY AUSTIN Comment: Exophytic lesion right kidney [facility] Admits alcohol use Active Condition [facility] Aneurysm of ascending aorta Active Condition Sep 18, 2022 Entered By: DANIELE CHILDS Comment: Borderline ascending aorta on ECHO 09/14/22 measuring 3.8cm [facility] Aortic valve stenosis Active Condition Sep 18, 2022 Entered By: DANIELE CHILDS Comment: ECHO 09/14/22 BLAISE 1.0cm2 EF 65% [facility] Arteriosclerotic heart disease Active Condition May 14, 2024 Entered By: TRACY VILLANUEVA Comment: on EliquisOct 2023 Entered By: TRACY VILLANUEVA Comment: followed by cardiology Dr. Barney [facility] Jc's esophagus Active Condition Oct 31, 2013 Entered By: MAGUI NAYLOR AM Comment: WithOUT dysplasia october 2013, repeat 3-4 years.Feb 13, 2024 Entered By: TRACY VILLANUEVA Comment: 01/09/24 EGD. 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 [facility] Depression (SNOMED CT 40831229) Active Condition Oct 13, 2010 Entered By: TODD STOUT Comment: ReviewedOct 19, 2012 Entered By: TODD STOUT Comment: ReviewedOct 02, 2013 Entered By: TODD STOUT Comment: Reviewed [facility] Diabetes mellitus type 2 Active Condition Sep 25, 2023 Entered By: TRACY VILLANUEVA Comment: 09/05/23 A1c 6.7Jun 2023 Entered By: TRACY VILLANUEVA Comment: 12/25/23 A1c 7.7Sep 2023 Entered By: TRACY VILLANUEVA Comment: 04/25/24 A1c 6.8Dec 2023 Entered By: TRACY VILLANUEVA Comment: 08/01/24 A1c 8.1 [facility] Disorder of lumbar disc (SNOMED CT 160080654) Active Condition [facility] Dry Eye Syndromes * (ICD-9-CM 375.15) Active Condition [facility] HERMILO - Generalized anxiety disorder Active Condition [facility] Hypertrophy of nasal turbinates (ICD-9-CM 478.0) Active Condition [facility] Insomnia Active Condition [facility] Late effect of fracture of skull and face bones Active Condition Dec 03, 2008 Entered By: MAGUI NAYLOR AM Comment: Fracture, plate and hardware from tablesaw accident. [facility] Localised, primary osteoarthritis Active Condition December 25, 2023 Entered By: TRACY VILLANUEVA Comment: b/l hips, hx bilateral THAJul 2023 Entered By: TRACY VILLANUEVA Comment: right elbowJul 2023 Entered By: TRACY VILLANUEVA Comment: b/l hands [facility] Long-term current use of anticoagulant Active Condition [facility] (631[facility]) Lumbosacral spondylosis without myelopathy (ICD-9-CM 721.3) Active Condition [facility] Male urinary stress incontinence Active Condition [facility] Mixed hyperlipidaemia Active Condition [facility] Open Angle Glaucoma Suspect Active Condition [facility] Osteopenia Active Condition Aug 15 Entered By: DANIELE CHILDS Comment: on Dexa 07/2022, rpt in 10 years [facility] Peripheral vascular disease Active Condition Nov 17 Entered By: CAITLIN PENA Comment: atherectomy and plast of left popleteal artery [facility] Sleep apnea Active Condition Aug 15, 2022 Entered By: DANIELE CHILDS Comment: following with [facility], severe sleep apnea per note 08/11/22, rec for cpapJan 2022 Entered By: DANIELE CHILDS Comment: Left GSV Venaseal 07/29/22 [facility] Splenic infarction Active Condition J un 2022 Entered By: YULY AUSTIN Comment: Chronic pain management with opioids [facility] Tobacco use (SNOMED CT [id number]) Active Condition December 25, 2023 Entered By: TRACY VILLANUEVA Comment: 8 cig day x 65 yearsJul 2023 Entered By: GUSTAVO MCKEON Comment: CT, Thor[place] FEBRUARY 11 Done at [place]; No Lesions Suspicious for Malignancy;Feb 20, 2024 Entered By: GUSTAVO MCKEON Comment: There are ABNL's Deemed Chronic , Such as Emphysema and Granuloma (s) [facility] Adjustment reaction with mixed emotional features Inactive Condition 08/11/2009 [facility] Anisocoria * (ICD-9-CM 379.41) Inactive Condition 09/25/2023 [facility] 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 [facility] Headaches * (ICD-9-CM 784.0) Inactive Condition 09/25/2023 [facility] Hyponatremia Inactive Condition 09/25/2023 [facility] Impaired Fasting Glucose Inactive Condition 09/25/2023 [facility] Diagnosis: ICD-10-CM G89.4 Chronic pain syndrome Active Diagnosis [facility] Diagnosis: ICD-10-CM F33.9 Major depressive disorder, recurrent, unspecified Active Diagnosis [facility] Diagnosis: ICD-10-CM Z46.1 Encounter for fitting and adjustment of hearing aid Active Diagnosis [facility] Diagnosis: ICD-10-CM J44.9 Chronic obstructive pulmonary disease, unspecified Active Diagnosis [place] Diagnosis: ICD-10-CM 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, right eye, moderate stage Active Diagnosis [facility] Diagnosis: ICD-10-CM H40.1411 Capslr glaucoma w/pseudxf lens, right eye, mild stage Active Diagnosis [facility] Diagnosis: ICD-10-CM R63.4 Abnormal weight loss Active Diagnosis [place] Diagnosis: ICD-10-CM L60.0 Ingrowing nail [facility] Diagnosis: ICD-10-CM Z46.0 Encounter for fit/adjst of spectacles and contact lenses Active Diagnosis [facility] Diagnosis: ICD-10-CM E11.9 Type 2 diabetes mellitus without complications Active Diagnosis [facility] Diagnosis: ICD-10-CM H90.3 Sensorineural hearing loss, bilateral Active Diagnosis [facility] Diagnosis: ICD-10-CM I25.10 Athscl heart disease of nulato coronary artery w/o ang pctrs Active Diagnosis [place] Diagnosis: ICD-10-CM I10 Essential (primary) hypertension Active Diagnosis [place] Diagnosis: ICD-10-CM Z04.89 Encounter for examination and observation for oth reasons Active Diagnosis [facility] Diagnosis: ICD-10-CM G47.30 Sleep apnea, unspecified Active Diagnosis [facility] Diagnosis: ICD-10-CM D73.5 Infarction of spleen Active Diagnosis [facility] Diagnosis: ICD-10-CM R53.83 Other fatigue Active Diagnosis [facility] Diagnosis: ICD-10-CM 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 Active Diagnosis [place] Diagnosis: ICD-10-CM Z79.01 manager long term care (current) use of anticoagulants Active Diagnosis [facility] Diagnosis: ICD-10-CM Z71.9 Counseling, unspecified Active Diagnosis [facility] Diagnosis: ICD-10-CM F32.9 Major depressive disorder, single episode, unspecified [facility] Diagnosis: ICD-10-CM R52 Pain, unspecified [facility] Diagnosis: ICD-10-CM Z51.81 Encounter for therapeutic drug level monitoring Active Diagnosis [facility] Medications Combined list of outpatient medications from Department of Defense and Veterans Affairs facilities.Medications provided include 1) outpatient medications from the last 15 months, and 2) patient-reported medications. Medication Details Route Status Patient Instructions Prescription Expires Prescription Number Last Dispense Date Ordering Provider Order Date Order Qty Source ACETAMINOPH EN 500MG TAB TAKE TWO TABLETS BY MOUTH TWICE DAILY FOR PAIN ORAL ACTIVE 03/12/2025 [id number] Magdalena VILLANUEVA 2023 [address] [place] ALBUTEROL 90MCG/ACTUA T (CFC-F) INHL,ORAL,8 .5GM DOSE COUNTER INHALE 1 TO 2 PUFFS BY MOUTH EVERY 6 HOURS NEEDED FOR BRONCHOS PASM RESPIR ATORY (INHAL ATION) ACTIVE 03/12/2025 [id number] 4 Magdalena VILLANUEVA 2023 3 [place] AMLODIPINE BESYLATE 10MG TAB TAKE ONE TABLET BY MOUTH ONCE DAILY FOR BLOOD PRESSURE /HEART, DO NOT TAKE WITH GRAPEFRU IT JUICE ORAL ACTIVE 03/12/2025 [id number] 4 Magdalena VILLANUEVA [address] [facility] IELD AMLODIPINE BESYLATE 10MG TAB TAKE ONE TABLET BY MOUTH ONCE DAILY FOR BLOOD PRESSURE /HEART, DO NOT TAKE WITH GRAPEFRU IT JUICE ORAL DISCONT INUED 09/25/2024 [id number] 4 Magdalena VILLANUEVA [address] [facility] IELD AMLODIPINE BESYLATE 10MG TAB TAKE ONE TABLET BY MOUTH ONCE DAILY FOR BLOOD PRESSURE /HEART, DO NOT TAKE WITH GRAPEFRU IT JUICE ORAL DISCONT INUED 09/12/2023 [id number] 4 RA CLAUDINE CHILDS 2022 90 [facility] APIXABAN 5MG TAB TAKE ONE TABLET BY MOUTH EVERY 12 HOURS FOR PREVENTI ON OF BLOOD CLOTS ORAL ACTIVE 11/10/2024 [id number] 4 Magdalena VILLANUEVA [address] [facility] IELD APIXABAN 5MG TAB TAKE ONE TABLET BY MOUTH EVERY 12 HOURS FOR PREVENTI ON OF BLOOD CLOTS ORAL DISCONT INUED 07/04/2024 [id number] 4 [facility] JAWED 2022 60 [facility] APIXABAN 5MG TAB TAKE ONE TABLET BY MOUTH EVERY 12 HOURS FOR PREVENTI ON OF BLOOD CLOTS ORAL DISCONT INUED 02/10/2024 [id number] [facility] JAWED 2022 60 [facility] ASPIRIN 81MG TAB,EC TAKE ONE TABLET BY MOUTH ONCE DAILY TO PREVENT STROKE/H EART ATTACK ORAL DISCONT INUED BY PROVIDE R 09/25/2024 [id number] 4 Magdalena VILLANUEVA [address] [facility] IELD ATORVASTATI N CA 40MG TAB TAKE ONE-HALF TABLET BY MOUTH ONCE DAILY FOR CHOLESTE ROL ORAL ACTIVE 03/12/2025 [id number] 4 Magdalena VILLANUEVA [address] [facility] IELD ATORVASTATI N CA 40MG TAB TAKE ONE-HALF TABLET BY MOUTH ONCE DAILY FOR CHOLESTE ROL ORAL DISCONT INUED 08/22/2024 [id number] 4 [facility] JAWED 2023 45 [facility] BUPRENORPHI NE 10MCG/HR PATCH APPLY 1 PATCH TO SKIN EVERY 5 DAYS (REMOVE PATCH BEFORE APPLYING A NEW PATCH) TRANSD ERMAL DISCONT INUED 12/16/2023 [id number] JOSE THAKUR 2022 6 [facility] BUPRENORPHI NE 15MCG/HR PATCH APPLY 1 PATCH TO SKIN EVERY 5 DAYS FOR PAIN (REMOVE PATCH BEFORE APPLYING A NEW PATCH) TRANSD ERMAL DISCONT INUED BY PROVIDE R 08/19/2024 [id number] 4 [facility] 2023 6 [facility] BUPRENORPHI NE 15MCG/HR PATCH APPLY 1 PATCH TO SKIN EVERY 5 DAYS (REMOVE PATCH BEFORE APPLYING A NEW PATCH) TRANSD ERMAL DISCONT INUED (EDIT) 05/08/2024 [id number] 4 [facility] 2023 5 [facility] BUPRENORPHI NE 15MCG/HR PATCH APPLY 1 PATCH TO SKIN EVERY 5 DAYS (REMOVE PATCH BEFORE APPLYING A NEW PATCH) TRANSD ERMAL DISCONT INUED 02/10/2024 [id number] 4 [facility] 2022 5 [facility] BUPRENORPHI NE 5MCG/HR PATCH APPLY 1 PATCH TO SKIN EVERY 5 DAYS FOR PAIN (REMOVE PATCH BEFORE APPLYING A NEW PATCH) TRANSD ERMAL DISCONT INUED BY PROVIDE R 09/28/2024 [id number] 4 [facility] 2023 6 [facility] BUPRENORPHI NE 5MCG/HR PATCH APPLY 2 PATCH 5MCG/JULISSA R TO SKIN EVERY 7 DAYS FOR 7 DAYS, THEN APPLY 1 PATCH 5MCG/HR EVERY 7 DAYS FOR 14 DAYS FOR PAIN (REMOVE PATCH BEFORE APPLYING A NEW PATCH) TRANSD ERMAL DISCONT INUED 04/14/2024 [id number] 4 [facility] 2023 2 [facility] BUPRENORPHI NE 5MCG/HR PATCH APPLY 1 PATCH TO SKIN EVERY 7 DAYS FOR PAIN (REMOVE PATCH BEFORE APPLYING A NEW PATCH) TRANSD ERMAL DISCONT INUED 11/24/2023 [id number] [facility] 2022 4 [facility] BUPROPION HCL 200MG 12HR TAB,SA TAKE ONE TABLET BY MOUTH EVERY MORNING DEPRESSI ON ORAL DISCONT INUED BY PROVIDE R 09/12/2024 [id number] 4 Edgar COLINDRES E 2023 90 [facility] BUPROPION HCL 200MG 12HR TAB,SA TAKE ONE TABLET BY MOUTH EVERY MORNING ORAL DISCONT INUED (EDIT) 05/16/2024 [id number] 4 Edgar COLINDRES E 2022 90 [facility] CARBOXYMETH YLCELLULOSE NA 0.5% SOLN,OPH INSTILL 1 DROP INTO EACH EYE FOUR TIMES A DAY FOR DRY EYE OPHTHA LMIC ACTIVE 06/01/2025 [id number] 4 BARBAR[facility] ARTEAGA [facility] CITALOPRAM HYDROBROMID E 20MG TAB TAKE ONE-HALF TABLET BY MOUTH ONCE DAILY FOR 4 DAYS, THEN TAKE ONE TABLET ONCE DAILY FOR DEPRESSI ON AND ANXIETY ORAL DISCONT INUED (EDIT) 07/03/2024 [id number] 4 Edgar COLINDRES E 2023 [facility] CITALOPRAM HYDROBROMID E 40MG TAB TAKE ONE-HALF TABLET BY MOUTH ONCE DAILY FOR DEPRESSI ON AND ANXIETY ORAL ACTIVE 09/09/2024 [id number] 4 Edgar COLINDRES E 2023 45 [facility] CITALOPRAM HYDROBROMID E 40MG TAB TAKE ONE-HALF TABLET BY MOUTH ONCE DAILY FOR DEPRESSI ON AND ANXIETY ORAL DISCONT INUED 07/29/2024 [id number] Edgar COLINDRES E 2023 [facility] CITALOPRAM HYDROBROMID E 40MG TAB TAKE ONE-HALF TABLET BY MOUTH ONCE DAILY ORAL ACTIVE МАРИНА CHANCE 2006 [facility] CLONAZEPAM 0.5MG TAB TAKE ONE TABLET BY MOUTH BID PRN ORAL ACTIVE МАРИНА CHANCE 2006 [facility] ENSURE PLUS LIQUID CHOCOLATE DRINK 1 CAN BY MOUTH TWICE DAILY ORAL HOLD 02/13/2025 [id number] 4 Magdalena VILLANUEVA 2023 48 [place] ESCITALOPRA M OXALATE 20MG TAB TAKE ONE-HALF TABLET BY MOUTH ONCE DAILY FOR MOOD/DEP RESSION ORAL DISCONT INUED BY PROVIDE R 02/13/2025 [id number] Magdalena VILLANUEVA 2023 45 [place] FLUTICASONE 500MCG/SALM ETEROL 50MCG INHL,ORAL,D ISKUS,60 INHALE 1 PUFF BY MOUTH TWICE DAILY - RINSE MOUTH AFTER USE RESPIR ATORY (INHAL ATION) DISCONT INUED BY PROVIDE R 03/12/2025 [id number] 4 Magdalena VILLANUEVA 2023 3 [place] HYDROCHLORO THIAZIDE 25MG TAB TAKE ONE-HALF TABLET BY MOUTH ONCE DAILY FOR HIGH BLOOD PRESSURE ORAL DISCONT INUED BY PROVIDE R 02/13/2025 [id number] Magdalena VILLANUEVA 2023 45 [place] HYDROCORTIS ONE 1% OINT,TOP APPLY THIN LAYER TOPICALL Y TWICE DAILY NEEDED FOR ATOPIC DERMATIT IS TOPICA L ACTIVE 03/12/2025 [id number] 4 Magdalena VILLANUEVA 2023 90 [place] HYDROXYZINE PAMOATE 25MG CAP TAKE ONE CAPSULE BY MOUTH EVERY 6 HOURS NEEDED FOR ANXIETY ORAL DISCONT INUED BY PROVIDE R 02/13/2025 [id number] 4 Magdalena VILLANUEVA 2023 [address] [place] IBUPROFEN 800MG TAB TAKE ONE TABLET BY MOUTH TID PRN ORAL ACTIVE МАРИНА CHANCE 2006 [facility] LATANOPROST 0.005% SOLN,OPH INSTILL 1 DROP INTO EACH EYE AT BEDTIME OPHTHA LMIC ACTIVE 06/22/2025 [id number] BARBARA ARTEAGA 2023 2.5 [facility] LITHIUM CARBONATE 150MG CAP TAKE ONE CAPSULE BY MOUTH AT BEDTIME MOOD, MEMORY ORAL DISCONT INUED BY PROVIDE R 12/21/2024 [id number] 4 Edgar COLINDRES E 2023 90 [facility] LORAZEPAM 0.5MG TAB TAKE ONE HALF TABLET BY MOUTH TWICE DAILY NEEDED ORAL DISCONT INUED BY PROVIDE R 09/07/2024 [id number] 4 Edgar COLINDRES E 2023 15 [facility] LORAZEPAM 0.5MG TAB TAKE ONE HALF TABLET BY MOUTH TWICE DAILY NEEDED ORAL DISCONT INUED 08/17/2024 [id number] Edgar COLINDRES E 2023 15 [facility] MELATONIN 5MG CAP/TAB TAKE ONE CAPSULE/ TABLET BY MOUTH AT BEDTIME FOR INSOMNIA ORAL ACTIVE 03/02/2025 [id number] 4 LINDEN MCKEON 2023 90 [place] MELATONIN 5MG CAP/TAB TAKE ONE CAPSULE/ TABLET BY MOUTH AT BEDTIME FOR INSOMNIA ORAL DISCONT INUED 09/12/2024 [id number] Edgar COLINDRES E 2023 90 [facility] MELATONIN 5MG CAP/TAB TAKE ONE CAPSULE/ TABLET BY MOUTH AT BEDTIME FOR INSOMNIA ORAL DISCONT INUED (EDIT) 03/28/2024 [id number] 3 Edgar COLINDRES E 2022 90 [facility] METFORMIN HCL 750MG 24HR TAB,SA TAKE ONE TABLET BY MOUTH TWICE DAILY FOR TYPE 2 DIABETES MELLITUS ORAL ACTIVE 05/15/2025 [id number] 4 Magdalena VILLANUEVA 2023 180 [place] METFORMIN HCL 750MG 24HR TAB,SA TAKE TWO TABLETS BY MOUTH ONCE DAILY FOR TYPE 2 DIABETES MELLITUS ORAL DISCONT INUED (EDIT) 03/26/2025 [id number] 4 LINDEN MCKEON 2023 180 [place] METFORMIN HCL 750MG 24HR TAB,SA TAKE TWO TABLETS BY MOUTH ONCE DAILY FOR TYPE 2 DIABETES MELLITUS ORAL DISCONT INUED 02/10/2024 [id number] CHANTEL AUSTIN JAWED 2022 180 [facility] MIRTAZAPINE 15MG TAB TAKE ONE AND ONE-HALF TABLETS BY MOUTH AT BEDTIME ORAL DISCONT INUED BY PROVIDE R 05/15/2024 [id number] 4 Edgar COLINDRES E 2023 135 [facility] MIRTAZAPINE 30MG TAB TAKE ONE-HALF TABLET BY MOUTH AT BEDTIME FOR DEPRESSI ON/MOOD ORAL DISCONT INUED BY PROVIDE R 09/12/2024 [id number] 4 Edgar COLINDRES E 2023 45 [facility] MIRTAZAPINE 30MG TAB TAKE ONE-HALF TABLET BY MOUTH AT BEDTIME FOR DEPRESSI ON/MOOD ORAL DISCONT INUED (EDIT) 05/16/2024 [id number] 3 Edgar COLINDRES E 2022 45 [facility] NICOTINE 14MG/24HRS PATCH APPLY 1 PATCH TO SKIN ONCE DAILY (REMOVE OLD PATCH BEFORE APPLYING NEW PATCH) TRANSD ERMAL 04/22/2024 [id number] 4 Magdalena VILLANUEVA 2023 42 [place] NICOTINE 7MG/24HRS PATCH APPLY 1 PATCH TO SKIN ONCE DAILY (REMOVE OLD PATCH BEFORE APPLYING NEW PATCH) * USE AFTER 14 MG PATCHES * TRANSD ERMAL 05/20/2024 [id number] 4 Magdalena VILLANUEVA 2023 70 [place] NIFEDIPINE (EQV-CC) 30MG TAB,SA TAKE ONE TABLET BY MOUTH ONCE DAILY ORAL ACTIVE МАРИНА CHANCE 2006 [facility] OMEPRAZOLE 20MG CAP,EC TAKE 1 CAPSULE BY MOUTH EVERY MORNING ORAL ACTIVE МАРИНА CHANCE 2006 [facility] ONDANSETRON HCL 4MG TAB,ORALLY DISINTEGRAT ING PLACE ONE TABLET ON THE TONGUE EVERY 8 HOURS NEEDED FOR NAUSEA AND VOMITING (ALLOW TABLET TO DISSOLVE ON TONGUE, AND SWALLOW WITH SALIVA) ORAL 05/10/2024 [id number] 4 Magdalena VILLANUEVA 2023 90 [place] OXYCODONE HCL 5MG TAB TAKE ONE TABLET BY MOUTH TWICE DAILY NEEDED FOR PAIN (NEXT FILL 08/03/23 ) ORAL DISCONT INUED 08/03/2023 [id number] CHANTEL AUSTNI AMTERESA JAWED 2022 56 [facility] OXYCODONE HCL 5MG TAB TAKE ONE TABLET BY MOUTH ONCE DAILY NEEDED NEXT FILL 12/04 ORAL 12/06/2023 [id number] 4 DARBY THAKURH B 2023 30 [facility] OXYCODONE HCL 5MG TAB TAKE ONE TABLET BY MOUTH TWICE DAILY NEEDED FOR PAIN ORAL 10/19/2023 [id number] 4 [facility] 2023 56 [facility] OXYCODONE HCL 5MG TAB TAKE ONE TABLET BY MOUTH TWICE DAILY NEEDED FOR PAIN (NEXT FILL 08/31/23) ORAL 09/01/2023 [id number] 3 [facility] 2022 56 [facility] PANTOPRAZOL E NA 40MG TAB,EC TAKE ONE TABLET BY MOUTH EVERY MORNING 30 MINUTES BEFORE BREAKFAS T ORAL ACTIVE 11/10/2024 [id number] 4 Magdalena VILLANUEVA 2023 90 [place] PANTOPRAZOL E NA 40MG TAB,EC TAKE ONE TABLET BY MOUTH EVERY MORNING 30 MINUTES BEFORE BREAKFAS T ORAL DISCONT INUED 05/01/2024 [id number] 4 [facility] 2022 90 [facility] PREGABALIN 25MG CAP,ORAL TAKE ONE CAPSULE BY MOUTH THREE TIMES A DAY ORAL DISCONT INUED (EDIT) 11/16/2023 [id number] 3 Edgar COLINDRES E 2022 90 [facility] PREGABALIN 25MG CAP,ORAL TAKE ONE CAPSULE BY MOUTH THREE TIMES A DAY ORAL 01/04/2024 [id number] 3 Edgar COLINDRES E 2022 90 [facility] QUETIAPINE FUMARATE 25MG TAB TAKE ONE TABLET BY MOUTH AT BEDTIME ORAL ACTIVE 05/01/2025 [id number] 4 Edgar COLINDRES E 2023 90 [facility] QUETIAPINE FUMARATE 25MG TAB TAKE ONE TABLET BY MOUTH AT BEDTIME SLEEP, DEPRESSI ON, ANXIETY ORAL DISCONT INUED (EDIT) 04/05/2025 [id number] 4 Edgar COLINDRES E 2023 30 [facility] SENNOSIDES 8.6MG TAB TAKE ONE TABLET BY MOUTH TWICE DAILY NEEDED FOR CONSTIPA TION ORAL ACTIVE 09/25/2024 [id number] 4 Magdalena VILLANUEVA 2023 [address] [place] SIMVASTATIN 80MG TAB TAKE ONE-HALF TABLET BY MOUTH EVERY EVENING ORAL ACTIVE МАРИНА CHANCE 2006 [facility] TIOTROPIUM 2.5MCG/ACTU AT INHL,ORAL,6 0D,4GM INHALE 2 PUFFS BY MOUTH ONCE DAILY RESPIR ATORY (INHAL ATION) ACTIVE 03/12/2025 [id number] 4 Magdalena VILLANUEVA C 2023 1 [place] TRAZODONE HCL 100MG TAB TAKE ONE-HALF TABLET BY MOUTH AT BEDTIME INSOMNIA ORAL DISCONT INUED BY PROVIDE R 09/12/2024 [id number] 4 Edgar COLINDRES E 2023 45 [facility] TRAZODONE HCL 100MG TAB TAKE ONE TABLET BY MOUTH AT BEDTIME ORAL DISCONT INUED (EDIT) 05/16/2024 [id number] 3 Edgar COLINDRES E 2022 90 [facility] TRAZ[facility] H[facility] 50MG TAB TAKE ONE TABLET BY MOUTH QHS PRN ORAL ACTIVE CHANCE, МАРИНА L 2006 [facility] TRIAMCINOLO NE ACETONIDE 0.1% CREAM,TOP APPLY A THIN LAYER TOPICALL Y EVERY 5 DAYS TOPICA L HOLD 11/06/2024 [id number] JOSE THAKUR 2023 15 [facility] [place] [facility] Allergies, Adverse Reactions, Alerts Combined list of allergies from Department of Defense and Veterans Affairs facilities. It does not include entries that were removed or entered in error. Substance Category Reaction Severity Reaction type Status Date Reported Comments Source GEMFIBROZIL Propensity to adverse reactions to drug (finding) Diarrhea active 9 [facility] LISINOPRIL Propensity to adverse reactions to drug (finding) Angioedema [facility] Immunizations Combined list of available immunizations from the Department of Defense and Veterans Affairs facilities. Immunization Series Date Given Administered By Site Reaction Lot Number CVX Code Drug Carburetor Rebuilder Status Comments Source COVID-19 (MODERNA), MRNA, LNP-S, PF, 50 MCG/0.5 ML (AGES 12+ YEARS) 2023 STEPHAN DOZIER LEFT DELTO ID [id number] 312 complet ed [facility] [place] [facility] INFLUENZA, HIGH-DOSE, TRIVALENT, PF 2023 STEPHAN DOZIER RIGHT DELTO ID [id number] 135 complet ed [facility] [place] INFLUENZA, UNSPECIFIED FORMULATION 2022 88 complet ed [facility] PNEUMOCOCCAL CONJUGATE PCV20, POLYSACCHARID E [id number] CONJUGATE, ADJUVANT, PF 2022 ESSIE ROMEO LEFT DELTO ID [id number] 216 complet ed [facility] TDAP 2022 ESSIE ROMEO LEFT DELTO ID [id number] 115 complet ed [facility] ZOSTER RECOMBINANT 2 2022 ESSIE ROMEO RIGHT DELTO ID [id number] 187 complet ed [facility] COVID-19 (MODERNA), MRNA, LNP-S, BIVALENT BOOSTER, PF, 50 MCG/0.5 ML OR 25MCG/0.25 ML DOSE 1 2021 229 complet ed MOD; [id number]; 3 [facility] ZOSTER RECOMBINANT 1 2021 187 complet ed [facility] COVID-19 (PFIZER), MRNA, LNP-S, BIVALENT BOOSTER, PF, 30 MCG/0.3 ML DOSE 1 2020 300 complet ed [facility] COVID-19 (PFIZER), MRNA, LNP-S, PF, 30 MCG/0.3 ML DOSE 2 2020 208 complet ed [facility] COVID-19 (PFIZER), MRNA, LNP-S, PF, 30 MCG/0.3 ML DOSE 1 2020 208 complet ed [facility] DTAP, UNSPECIFIED FORMULATION 2012 107 complet ed [facility] FLU,3 YRS (HISTORICAL) 2012 88 complet ed Site: Left Deltoid [facility] FLU,3 YRS (HISTORICAL) 2011 88 complet ed Site: Left Deltoid [facility] FLU,3 YRS (HISTORICAL) 2010 88 complet ed Site: Right Deltoid [facility] ZOSTER LIVE 2010 EMI WAGNER 121 complet ed [facility] FLU,3 YRS (HISTORICAL) 2009 88 complet ed Site: Right Deltoid [facility] NOVEL INFLUENZA-H1N 1-09, ALL FORMULATIONS 2009 128 complet ed [employer] P[employer] [facility] FLU,3 YRS (HISTORICAL) 2008 88 complet ed Site: Right Deltoid [facility] FLU,3 YRS (HISTORICAL) 2007 88 complet ed Site: Left Deltoid [facility] FLU,3 YRS (HISTORICAL) 2006 88 complet ed Site: Left Deltoid [facility] FLU,3 YRS (HISTORICAL) 2005 88 complet ed [facility] FLU,3 YRS (HISTORICAL) 2004 SHIRA TORRES 88 complet ed [facility] PNEUMOCOCCAL, UNSPECIFIED FORMULATION 2004 109 complet ed [facility] FLU,3 YRS (HISTORICAL) 2003 LYN PENA 88 complet ed [facility] FLU,3 YRS (HISTORICAL) 2003 BROWN CARRERO 88 complet ed [facility] TD(ADULT) UNSPECIFIED FORMULATION 2003 139 complet ed [facility] TDAP 2003 115 complet ed [facility] Results Combined list of recent chemistry, hematology and other laboratory results from Department of Defense and Veterans Affairs, ranging from 15 months to all on record, depending upon the facility. Order Name Results Value Reference Range Date Interpretation Specimen Comments Source HEMOGLOBI N A1C PANEL HEMOGLOBIN A1C/HEMOGLO BIN.TOTAL IN BLOOD BY HPLC 8.1 4.0 - 5.6 08/01 H Specimen Type: BLOOD Comment: Values obtained from A1C measurement s can vary. For atypical A1C assays, a reported value of 7.0 could actually be between 6.72 and 7.28 if measured by a reference method. A reported value of 9.0 could actually be between 8.73 and 9.27. Ref: http://www. ngsp.org/[place] Pdata.asp Ordering Provider: THIAGO VILLANUEVA Report Released Date/Time: Jul 30, 2024 09:45 AM Reporting Lab: [facility] [address] [address] Performing Lab: [facility] [address] [address] [place] LIPID PANEL, NON FASTING CHOLESTEROL [MASS/VOLUM E] IN SERUM OR PLASMA 155 mg/dL 08/01 Specimen Type: SERUM No comment entered. Ordering Provider: THIAGO VILLANUEVA Report Released Date/Time: Jul 30, 2024 09:45 AM Reporting Lab: [address] [address] Performing Lab: [address] [address] [place] LIPID PANEL, NON FASTING TRIGLYCERID E [MASS/VOLUM E] IN SERUM OR PLASMA 78 mg/dL 0 - 150 08/01 Specimen Type: SERUM No comment entered. Ordering Provider: THIAGO VILLANUEVA Report Released Date/Time: Jul 30, 2024 09:45 AM Reporting Lab: [address] [address] Performing Lab: [address] [address] [place] LIPID PANEL, NON FASTING CHOLESTEROL IN LDL [MASS/VOLUM E] IN SERUM OR PLASMA BY CALCULATION 85 mg/dL 0 - 129 08/01 Specimen Type: SERUM No comment entered. Ordering Provider: THIAGO VILLANUEVA Report Released Date/Time: Jul 30, 2024 09:45 AM Reporting Lab: [address] [address] Performing Lab: [address] [address] [place] LIPID PANEL, NON FASTING CHOLESTEROL .TOTAL/CHOL ESTEROL IN HDL [MASS RATIO] IN SERUM OR PLASMA 2.9 08/01 Specimen Type: SERUM No comment entered. Ordering Provider: THIAGO VILLANUEVA Report Released Date/Time: Jul 30, 2024 09:45 AM Reporting Lab: [address] [address] Performing Lab: [address] [address] [place] LIPID PANEL, NON FASTING CHOLESTEROL IN HDL [MASS/VOLUM E] IN SERUM OR PLASMA 54 mg/dL 40 - 60 08/01 Specimen Type: SERUM No comment entered. Ordering Provider: THIAGO VILLANUEVA Report Released Date/Time: Jul 30, 2024 09:45 AM Reporting Lab: [facility] [address] [address] Performing Lab: [address] [address] [place]IVER FUNCTION PROTEIN [MASS/VOLUM E] IN SERUM OR PLASMA 7.2 g/dL 6.0 - 8.3 08/01 Specimen Type: SERUM No comment entered. Ordering Provider: THIAGO VILLANUEVA Report Released Date/Time: Jul 30, 2024 09:45 AM Reporting Lab: [address] [address] Performing Lab: [address] [address] [place] LIVER FUNCTION ALBUMIN [MASS/VOLUM E] IN SERUM OR PLASMA 3.9 g/dL 3.5 - 5.0 08/01 Specimen Type: SERUM No comment entered. Ordering Provider: THIAGO VILLANUEVA Report Released Date/Time: Jul 30, 2024 09:45 AM Reporting Lab: [address] [address] Performing Lab: [address] [address] [place]IVER FUNCTION ALKALINE PHOSPHATASE [ENZYMATIC ACTIVITY/VO LUME] IN SERUM OR PLASMA 78 U/L 40 - 150 08/01 Specimen Type: SERUM No comment entered. Ordering Provider: THIAGO VILLANUEVA Report Released Date/Time: Jul 30, 2024 09:45 AM Reporting Lab: [facility] [address] [address] Performing Lab: [facility] [address] [address] [place]IVER FUNCTION ASPARTATE AMINOTRANSF ERASE [ENZYMATIC ACTIVITY/VO LUME] IN SERUM OR PLASMA 16 U/L 5 - 34 08/01 Specimen Type: SERUM No comment entered. Ordering Provider: THIAGO VILLANUEVA Report Released Date/Time: Jul 30, 2024 09:45 AM Reporting Lab: [facility] [address] [address] Performing Lab: [place] [facility] [address] [place] LIVER FUNCTION ALANINE AMINOTRANSF ERASE [ENZYMATIC ACTIVITY/VO LUME] IN SERUM OR PLASMA 18 U/L 08/01 Specimen Type: SERUM No comment entered. Ordering Provider: THIAGO VILLANUEVA Report Released Date/Time: Jul 30, 2024 09:45 AM Reporting Lab: [facility] [address] [address] Performing Lab: [facility] [address] [address] [place] LIVER FUNCTION BILIRUBIN.T OTAL [MASS/VOLUM E] IN SERUM OR PLASMA 0.8 mg/dL 0.2 - 1.2 08/01 Specimen Type: SERUM No comment entered. Ordering Provider: THIAGO VILLANUEVA Report Released Date/Time: Jul 30, 2024 09:45 AM Reporting Lab: [facility] [address] [address] Performing Lab: [facility] [address] [address] [place] BASIC METABOLIC PANEL (non-fast ing) UREA NITROGEN [MASS/VOLUM E] IN SERUM OR PLASMA 14 mg/dL 7 - 25 08/01 Specimen Type: SERUM No comment entered. Ordering Provider: THIAGO VILLANUEVA Report Released Date/Time: Jul 30, 2024 09:45 AM Reporting Lab: [facility] [address] Performing Lab: [facility] [address] [place] BASIC METABOLIC PANEL (non-fast ing) GLUCOSE [MASS/VOLUM E] IN SERUM OR PLASMA 218 mg/dL 65 - 100 08/01 H Specimen Type: SERUM No comment entered. Ordering Provider: THIAGO VILLANUEVA Report Released Date/Time: Jul 30, 2024 09:45 AM Reporting Lab: [facility] [address] [address] Performing Lab: [facility] [address] [address] [place] BASIC METABOLIC PANEL (non-fast ing) SODIUM [MOLES/VOLU ME] IN SERUM OR PLASMA 136 mmol/L 135 - 145 08/01 Specimen Type: SERUM No comment entered. Ordering Provider: THIAGO VILLANUEVA Report Released Date/Time: Jul 30, 2024 09:45 AM Reporting Lab: [facility] [address] [address] Performing Lab: [facility] [address] [address] [place] BASIC METABOLIC PANEL (non-fast ing) POTASSIUM [MOLES/VOLU ME] IN SERUM OR PLASMA 4.1 mmol/L 3.5 - 5.0 08/01 Specimen Type: SERUM No comment entered. Ordering Provider: THIAGO VILLANUEVA Report Released Date/Time: Jul 30, 2024 09:45 AM Reporting Lab: [facility] [address] [address] Performing Lab: [facility] [address] [address] [place] BASIC METABOLIC PANEL (non-fast ing) CHLORIDE [MOLES/VOLU ME] IN SERUM OR PLASMA 101 mmol/L 100 - 110 08/01 Specimen Type: SERUM No comment entered. Ordering Provider: THIAGO VILLANUEVA Report Released Date/Time: Jul 30, 2024 09:45 AM Reporting Lab: [facility] [address] [address] Performing Lab: [facility] [address] [address] [place] BASIC METABOLIC PANEL (non-fast ing) CARBON DIOXIDE, TOTAL [MOLES/VOLU ME] IN SERUM OR PLASMA 26 meq/L 20 - 30 08/01 Specimen Type: SERUM No comment entered. Ordering Provider: THIAGO VILLANUEVA Report Released Date/Time: Jul 30, 2024 09:45 AM Reporting Lab: [address] [address] Performing Lab: [address] [address] [employer] BASIC METABOLIC PANEL (non-fast ing) CREATININE [MASS/VOLUM E] IN SERUM OR PLASMA 0.77 mg/dL 0.50 - 1.40 08/01 Specimen Type: SERUM No comment entered. Ordering Provider: THIAGO VILLANUEVA Report Released Date/Time: Jul 30, 2024 09:45 AM Reporting Lab: [address] [address] Performing Lab: [address] [address] [employer] BASIC METABOLIC PANEL (non-fast ing) GLOMERULAR FILTRATION RATE/1.73 SQ M.PREDICTED [VOLUME RATE/AREA] IN SERUM, PLASMA OR BLOOD BY CREATININE- BASED FORMULA (CKD-EPI 2020) 88 mL/min 60 08/01 Specimen Type: SERUM No comment entered. Ordering Provider: THIAGO VILLANUEVA Report Released Date/Time: Jul 30, 2024 09:45 AM Reporting Lab: [address] [address] Performing Lab: [address] [address] [employer] HEMOGLOBI N A1C PANEL HEMOGLOBIN A1C/HEMOGLO BIN.TOTAL IN BLOOD BY HPLC 6.8 4.0 - 5.6 04/25 H Specimen Type: BLOOD Comment: Values obtained from A1C measurement s can vary. For atypical A1C assays, a reported value of 7.0 could actually be between 6.72 and 7.28 if measured by a reference method. A reported value of 9.0 could actually be between 8.73 and 9.27. Ref: http://www. ngsp.org/[place] Pdata.asp Ordering Provider: THIAGO VILLANUEVA Report Released Date/Time: Feb 13, 2024 02:36 PM Reporting Lab: [facility] [address] [address] Performing Lab: [facility] [address] [address] [place] MICROALBU MIN CREATININ E RATIO PANEL MICROALBUMI N/CREATININ E [MASS RATIO] IN URINE 16.0 mg/g 0 - 29.9 04/25 Specimen Type: URINE No comment entered. Ordering Provider: THIAGO VILLANUEVA Report Released Date/Time: Feb 13, 2024 02:36 PM Reporting Lab: [facility] [address] [address] Performing Lab: [address] [address] [place] MICROALBU MIN CREATININ E RATIO PANEL MICROALBUMI N [MASS/VOLUM E] IN URINE 2.3 mg/dL 04/25 Specimen Type: URINE No comment entered. Ordering Provider: THIAGO VILLANUEVA Report Released Date/Time: Feb 13, 2024 02:36 PM Reporting Lab: [address] [address] Performing Lab: [facility] [address] [address] [place] MICROALBU MIN CREATININ E RATIO PANEL CREATININE [MASS/VOLUM E] IN URINE 143.92 mg/dL 04/25 Specimen Type: URINE No comment entered. Ordering Provider: THIAGO VILLANUEVA Report Released Date/Time: Feb 13, 2024 02:36 PM Reporting Lab: [address] [address] Performing Lab: [facility] [address] [address] [place] BASIC METABOLIC PANEL (non-fast ing) UREA NITROGEN [MASS/VOLUM E] IN SERUM OR PLASMA 15 mg/dL 7 - 25 09/05 /2024 Specimen Type: SERUM No comment entered. Ordering Provider: THIAGO VILLANUEVA Report Released Date/Time: Feb 13, 2024 02:36 PM Reporting Lab: [facility] [address] [address] Performing Lab: [address] [address] [place] BASIC METABOLIC PANEL (non-fast ing) GLUCOSE [MASS/VOLUM E] IN SERUM OR PLASMA 173 mg/dL 65 - 100 04/25 H Specimen Type: SERUM No comment entered. Ordering Provider: THIAGO VILLANUEVA Report Released Date/Time: Feb 13, 2024 02:36 PM Reporting Lab: [address] [address] Performing Lab: [address] [address] [place] BASIC METABOLIC PANEL (non-fast ing) SODIUM [MOLES/VOLU ME] IN SERUM OR PLASMA 133 mmol/L 135 - 145 04/25 L Specimen Type: SERUM No comment entered. Ordering Provider: THIAGO VILLANUEVA Report Released Date/Time: Feb 13, 2024 02:36 PM Reporting Lab: [address] [address] Performing Lab: [address] [address] [place] BASIC METABOLIC PANEL (non-fast ing) POTASSIUM [MOLES/VOLU ME] IN SERUM OR PLASMA 4.2 mmol/L 3.5 - 5.0 04/25 Specimen Type: SERUM No comment entered. Ordering Provider: THIAGO VILLANUEVA Report Released Date/Time: Feb 13, 2024 02:36 PM Reporting Lab: [address] [address] Performing Lab: [address] [address] [place] BASIC METABOLIC PANEL (non-fast ing) CHLORIDE [MOLES/VOLU ME] IN SERUM OR PLASMA 100 mmol/L 100 - 110 04/25 Specimen Type: SERUM No comment entered. Ordering Provider: THIAGO VILLANUEVA Report Released Date/Time: Feb 13, 2024 02:36 PM Reporting Lab: [facility] [address] [address] Performing Lab: [address] [address] [place] BASIC METABOLIC PANEL (non-fast ing) CARBON DIOXIDE, TOTAL [MOLES/VOLU ME] IN SERUM OR PLASMA 22 meq/L 20 - 30 04/25 Specimen Type: SERUM No comment entered. Ordering Provider: THIAGO VILLANUEVA Report Released Date/Time: Feb 13, 2024 02:36 PM Reporting Lab: [address] [address] Performing Lab: [address] [address] [place] BASIC METABOLIC PANEL (non-fast ing) CREATININE [MASS/VOLUM E] IN SERUM OR PLASMA 0.74 mg/dL 0.50 - 1.40 04/25 Specimen Type: SERUM No comment entered. Ordering Provider: THIAGO VILLANUEVA Report Released Date/Time: Feb 13, 2024 02:36 PM Reporting Lab: [address] [address] Performing Lab: [address] [address] [place] BASIC METABOLIC PANEL (non-fast ing) GLOMERULAR FILTRATION RATE/1.73 SQ M.PREDICTED [VOLUME RATE/AREA] IN SERUM, PLASMA OR BLOOD BY CREATININE- BASED FORMULA (CKD-EPI 2020) 89 mL/min 60 04/25 Specimen Type: SERUM No comment entered. Ordering Provider: THIAGO VILLANUEVA Report Released Date/Time: Feb 13, 2024 02:36 PM Reporting Lab: [facility] [address] [address] Performing Lab: [address] [address] [place] HEMOGLOBI N A1C PANEL HEMOGLOBIN A1C/HEMOGLO BIN.TOTAL IN BLOOD BY HPLC 6.3 4.0 - 5.6 04/15 H Specimen Type: BLOOD Comment: Values obtained from A1C measurement s can vary. For atypical A1C assays, a reported value of 7.0 could actually be between 6.72 and 7.28 if measured by a reference method. A reported value of 9.0 could actually be between 8.73 and 9.27. Ref: http://www. ngsp.org/[place] Pdata.asp Ordering Provider: THIAGO VILLANUEVA Report Released Date/Time: Apr 09, 2024 09:19 AM Reporting Lab: [address] [address] Performing Lab: [address] [address] [place] LIPID PANEL FASTING CHOLESTEROL [MASS/VOLUM E] IN SERUM OR PLASMA 137 mg/dL 04/15 Specimen Type: SERUM No comment entered. Ordering Provider: THIAGO VILLANUEVA Report Released Date/Time: Apr 09, 2024 09:19 AM Reporting Lab: [address] [address] Performing Lab: [address] [address] [place] LIPID PANEL FASTING TRIGLYCERID E [MASS/VOLUM E] IN SERUM OR PLASMA 63 mg/dL 0 - 150 04/15 Specimen Type: SERUM No comment entered. Ordering Provider: THIAGO VILLANUEVA Report Released Date/Time: Apr 09, 2024 09:19 AM Reporting Lab: [address] [address] Performing Lab: [address] [address] [place] LIPID PANEL FASTING CHOLESTEROL IN LDL [MASS/VOLUM E] IN SERUM OR PLASMA BY CALCULATION 63 mg/dL 0 - 129 04/15 Specimen Type: SERUM No comment entered. Ordering Provider: THIAGO VILLANUEVA Report Released Date/Time: Apr 09, 2024 09:19 AM Reporting Lab: [facility]ENTRN [facility] [address] [address] Performing Lab: [facility]ITALUSE[address] [address] [place] LIPID PANEL FASTING CHOLESTEROL .TOTAL/CHOL ESTEROL IN HDL [MASS RATIO] IN SERUM OR PLASMA 2.2 04/15 Specimen Type: SERUM No comment entered. Ordering Provider: THIAGO VILLANUEVA Report Released Date/Time: Apr 09, 2024 09:19 AM Reporting Lab: [facility] [address] [address] Performing Lab: [facility]N [address] [address] [employer] [place] [place] LIPID PANEL FASTING CHOLESTEROL IN HDL [MASS/VOLUM E] IN SERUM OR PLASMA 61 mg/dL 40 - 60 04/15 H Specimen Type: SERUM No comment entered. Ordering Provider: THIAGO VILLANUEVA Report Released Date/Time: Apr 09, 2024 09:19 AM Reporting Lab: [facility] [address] [address] Performing Lab: [facility]USE[address] [address] [employer] [place] [place] BASIC METABOLIC PANEL (fasting) UREA NITROGEN [MASS/VOLUM E] IN SERUM OR PLASMA 9 mg/dL 7 - 25 04/15 Specimen Type: SERUM No comment entered. Ordering Provider: THIAGO VILLANUEVA Report Released Date/Time: Apr 09, 2024 09:19 AM Reporting Lab: [facility] [address] [address] Performing Lab: [facility] [address] [address] [place] BASIC METABOLIC PANEL (fasting) GLUCOSE [MASS/VOLUM E] IN SERUM OR PLASMA 159 mg/dL 65 - 100 04/15 H Specimen Type: SERUM No comment entered. Ordering Provider: THIAGO VILLANUEVA Report Released Date/Time: Apr 09, 2024 09:19 AM Reporting Lab: [facility]ITALRENCOM[facility] GADSDENTRN [address] [place] [address] Performing Lab: [facility] [address] [address] [place] BASIC METABOLIC PANEL (fasting) SODIUM [MOLES/VOLU ME] IN SERUM OR PLASMA 116 mmol/L 135 - 145 04/15 LL Specimen Type: SERUM No comment entered. Ordering Provider: THIAGO VILLANUEVA Report Released Date/Time: Apr 09, 2024 09:19 AM Reporting Lab: [facility] [address] [address] Performing Lab: [facility] [address] [address] [place] BASIC METABOLIC PANEL (fasting) POTASSIUM [MOLES/VOLU ME] IN SERUM OR PLASMA 3.4 mmol/L 3.5 - 5.0 04/15 L Specimen Type: SERUM No comment entered. Ordering Provider: THIAGO VILLANUEVA Report Released Date/Time: Apr 09, 2024 09:19 AM Reporting Lab: [facility] [address] [address] Performing Lab: [facility]USE[address] [address] [place] BASIC METABOLIC PANEL (fasting) CHLORIDE [MOLES/VOLU ME] IN SERUM OR PLASMA 81 mmol/L 100 - 110 04/15 L Specimen Type: SERUM No comment entered. Ordering Provider: THIAGO VILLANUEVA Report Released Date/Time: Apr 09, 2024 09:19 AM Reporting Lab: [facility] [address] [address] Performing Lab: [facility] [address] [address] [place] BASIC METABOLIC PANEL (fasting) CARBON DIOXIDE, TOTAL [MOLES/VOLU ME] IN SERUM OR PLASMA 23 meq/L 20 - 30 04/15 Specimen Type: SERUM No comment entered. Ordering Provider: THIAGO VILLANUEVA Report Released Date/Time: Apr 09, 2024 09:19 AM Reporting Lab: [facility]ITALRL [facility] [address] [address] Performing Lab: [facility]ITALRENCOM[facility] GADSDENTRN [facility] [address] [address] [employer] BASIC METABOLIC PANEL (fasting) CREATININE [MASS/VOLUM E] IN SERUM OR PLASMA 0.69 mg/dL 0.50 - 1.40 04/15 Specimen Type: SERUM No comment entered. Ordering Provider: THIAGO VILLANUEVA Report Released Date/Time: Apr 09, 2024 09:19 AM Reporting Lab: [facility]ITALRENCOM[facility]SDENTRN [facility] [address] [address] Performing Lab: [facility]N [facility]USE[facility] [address] [address] [employer] BASIC METABOLIC PANEL (fasting) GLOMERULAR FILTRATION RATE/1.73 SQ M.PREDICTED [VOLUME RATE/AREA] IN SERUM, PLASMA OR BLOOD BY CREATININE- BASED FORMULA (CKD-EPI 2020) >90mL/ min 60 04/15 Specimen Type: SERUM No comment entered. Ordering Provider: THIAGO VILLANUEVA Report Released Date/Time: Apr 09, 2024 09:19 AM Reporting Lab: [facility]ITALRENCOM[facility]SDENTRN [facility]USE[facility] [address] [address] Performing Lab: [facility] [address] [id number] [employer] Vital Signs Combined list of inpatient and outpatient Vital Signs from Department of Defense and Veterans Affairs, ranging from 12 months to all on record, depending upon the facility. Vital Sign Value Date Comments Source WEIGHT 135.4 06/19/2024 10:58:03 [facility] BMI 26kg/m2 06/19/2024 10:58:[facility] SYSTOLIC BLOOD PRESSURE 156 05/14/20 11:39:51 [place] DIASTOLIC BLOOD PRESSURE 74 024 11:39:51 [place] PULSE OXIMETRY 98 05/14/2024 11:39:51 [place] WEIGHT 130 05/14/2024 11:39:51 [place] BMI 25kg/m2 05/14/2024 11:39:51 [place] HEIGHT 60.3 05/14/2024 11:39:51 [place] TEMPERATURE 97.7 05/14/2024 11:39:51 [place] PULSE 76 05/14/2024 11:39:51 [place] RESPIRATION 19 05/14/2024 11:39:51 [place] WEIGHT 128.1 05/01/2024 11:03:23 [facility] BMI 23kg/m2 05/01/2024 11:03:23 [facility] HEIGHT 63 05/01/2024 11:03:23 [facility] SYSTOLIC BLOOD PRESSURE 173 03/11/20 08:59:59 [place] DIASTOLIC BLOOD PRESSURE 71 024 08:59:59 [place] PULSE OXIMETRY 98 03/11/2024 08:59:59 [place] WEIGHT 132.6 03/11/2024 08:59:59 [place] BMI 26kg/m2 03/11/2024 08:59:59 [place] HEIGHT 60.3 03/11/2024 08:59:59 [place] TEMPERATURE 98.3 03/11/2024 08:59:59 [place] PULSE 80 03/11/2024 08:59:59 [place] RESPIRATION 19 03/11/2024 08:59:59 [place] SYSTOLIC BLOOD PRESSURE 156 02/13/20 11:48:09 [place] DIASTOLIC BLOOD PRESSURE 76 024 11:48:09 [place] PULSE OXIMETRY 96 02/13/2024 11:48:09 [place] WEIGHT 131 02/13/2024 11:48:09 [place] BMI 25kg/m2 02/13/2024 11:48:09 [place] HEIGHT 60.3 02/13/2024 11:48:09 [place] TEMPERATURE 97.7 02/13/2024 11:48:09 [place] PULSE 83 02/13/2024 11:48:09 [place] RESPIRATION 20 02/13/2024 11:48:09 [place] Encounters Combined list of: 1) Encounters from Department of Veterans Affairs facilities going back up to thelast 18 months. 2) Encounters from the Department of Defense facilities going back up to 280 months. Location Location Details Encounter Type Encounter Number Reason For Visit Attending Provider ADM Date DC Date Status Disposition Source [facility] OFFICE O/P EST HI 40-54 MIN [id number] Diagnos is: ICD-10- CM F32.9 Major depress marques disorde r, single episode , unspeci fied
MANUEL COLINDRES SSICA E 02/23 [facility] Outpatient Encounter [id number] 02/24 [facility] PRO PHONE CALL 5-10 MIN 13781-7.63 [id number] Diagnos is: ICD-10- CM Z51.81 Encount er for therape utic drug level monitor ing<br/ > KEL PATEL IE 03/01 [place] [facility] Outpatient Encounter [id number] Sondra PACHECO 03/01 [facility] Outpatient Encounter [id number] 03/01 [facility] OFFICE O/P EST LOW 20-29 MIN [id number] Diagnos is: ICD-10- CM 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< br/> CHET [place] MMED JAWED 03/06 [facility] Outpatient Encounter [id number] 03/08 [facility] Out[facility] Encounter [id number] 03/09 [facility] Out[facility]counter [id number] 03/10 [facility] Out[facility] Encounter [id number] 03/14 [facility] Out[facility] Encounter [id number] 03/16 [facility] Out[facility] Encounter [id number] 03/16 [facility] Out[facility] Encounter [id number] 03/20 [facility] Out[facility] Encounter [id number] 03/20 [facility] Outpatient Encounter [id number] 03/23 [facility] OFFICE O/P EST HI 40-54 MIN [id number] Diagnos is: ICD-10- CM F32.9 Major depress marques disorde r, single episode , unspeci fied
MANUEL COLINDRES 03/28 [facility] Out[facility] Encounter [id number] 03/29 [facility] Outpatient Encounter [id number] 04/04 [facility] Out[facility] Encounter [id number] 04/06 [facility] Outpatient Encounter [id number] 04/07 [facility] PRO PHONE CALL 5-10 MIN [id number] [id number] Diagnos is: ICD-10- CM R52 Pain, unspeci fied
RU CHRISTENSEN A 04/07 [facility] Out[facility] Encounter [id number] 04/10 [facility] Outpatient Encounter [id number] 04/10 [facility] Outpatient Encounter [id number] [id number] 04/13 [facility] Outpatient Encounter [id number] 05/01 [facility] Out[facility] Encounter [id number] [id number] 05/03 [facility] Outpatient Encounter [id number] 05/09 [facility] Outpatient Encounter [id number] 05/11 [facility] OFFICE O/P EST MOD 30-39 MIN [id number] Diagnos is: ICD-10- CM F32.9 Major depress marques disorde r, single episode , unspeci fied
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< br/> KUPFERSCHM ID,JOSE B 05/24 [facility] Outpatient Encounter [id number] 06/06 [facility] Outpatient Encounter [id number] 06/14 [facility] OFFICE O/P EST MOD 30-39 MIN [id number] Diagnos is: ICD-10- CM 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
MANUEL COLINDRES SSICA E 07/04 [facility] Outpatient Encounter [id number] 07/06 [facility] [place] QNHP OL DIG ASSMT&MGMT 5-10 [id number] [id number] Diagnos is: ICD-10- CM Z04.89 Encount er for examina tion and observa tion for oth reasons
JORGEKEL IE 07/12 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
Ascencion HERZOG H 08/01 [facility] Outpatient Encounter [id number] 08/02 [facility] Outpatient Encounter [id number] 08/08 [facility] Outpatient Encounter [id number] 08/09 [facility] LD COLLJ & INTERPJ DATA EA 30 D [id number] [id number] Diagnos is: ICD-10- CM G47.30 Sleep apnea, unspeci fied
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 (6[facility]GE) QNHP OL DIG ASSMT&MGMT 5-10 [id number] [id number] Diagnos is: ICD-10- CM Z04.89 Encount er for examina tion and observa tion for oth reasons
MIESHA ALEXIS N 08/15 [facility] Outpatient Encounter [id number] 08/15 [facility] Outpatient Encounter [id number] [id number] 08/22 [facility] (6[facility]GE) QNHP OL DIG ASSMT&MGMT 5-10 [id number] [id number] 01 Diagnos is: ICD-10- CM Z04.89 Encount er for examina tion and observa tion for oth reasons
HILARIA RIBEIRO 08/22 [facility] Outpatient Encounter [id number] 08/24 [facility] OFFICE O/P EST MOD 30 MIN [id number] [id number] Diagnos is: ICD-10- CM Z79.01 manager long term care (curren t) use of anticoa gulants
HIRO CHILDS 09/05 [facility] Out[facility] Encounter [id number] [id number] 09/05 [facility] Outpatient Encounter [id number] [id number] 09[facility]11 [facility] Outpatient Encounter [id number] 09/11 [facility] OFFICE O/P EST MOD 30 MIN [id number] Diagnos is: ICD-10- CM F33.9 Major depress marques disorde r, recurre nt, unspeci fied
MANUEL COLINDRES SSICA E 09/12 [facility] Out[facility] Encounter [id number] 09/13 [facility] QNHP OL DIG ASSMT&MGMT 11-20 [id number] [id number] Diagnos is: ICD-10- CM G47.30 Sleep apnea, unspeci fied
SHIRA ROQUE 09/15 [facility] QNHP OL DIG ASSMT&MGMT 11-20 [id number] [id number] Diagnos is: ICD-10- CM Z04.89 Encount er for examina tion and observa tion for oth reasons
CANDELARIO OSEGUERA 09/18 [facility] Outpatient Encounter [id number] 09/19 [facility] Outpatient Encounter [id number] 09/19 [facility] Outpatient Encounter [id number] 09/25 [facility] OFF[facility] O/P EST MOD 30 MIN [id number] [id number] Diagnos is: ICD-10- CM 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<br/ > VINI VILLANUEVA 09/25 [place] [facility] Outpatient Encounter [id number] [id number] 09/25 [facility] Outpatient Encounter [id number] [id number] 09/25 [facility] Outpatient [facility]counter [id number] [id number] 09/26 [facility] Outpatient Encounter [id number] [id number] VINI VILLANUEVA 09/26 [facility] Outpatient Encounter [id number] 09/26 [facility] Outpatient Encounter [id number] [id number] 09/27 [facility] Outpatient Encounter [id number] Diagnos is: ICD-10- CM R53.83 Other fatigue
ARNULFO-SAHRA MCCORD 09/27 [facility] Out[facility] Encounter [id number] 09/27 [facility] Out[facility] Encounter [id number] [id number] 10/04 [facility] Out[facility] Encounter [id number] 10/16 [facility] Outpatient Encounter [id number] [facility] Out[facility] Encounter [id number] ALEYDA BROOKE 10/26 [facility] Out[facility] Encounter [id number] 11/02 [facility] OFFICE O/P EST MOD 30 MIN [id number] Diagnos is: ICD-10- CM 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< br/> KUPFERSCHM ID,JOSE B 11/05 [facility] Out[facility] Encounter [id number] 11/09 [facility] Out[facility] Encounter [id number] 11/16 [facility] QNHP OL DIG ASSMT&MGMT 5-10 [id number] [id number] Diagnos is: ICD-10- CM Z04.89 Encount er for examina tion and observa tion for oth reasons
GIA MURGUIA 11/21 [facility] POS AIRWAY PRESSURE FILTER [id number] [id number] Diagnos is: ICD-10- CM G47.30 Sleep apnea, unspeci fied
ST AMANT,BETI E P 12/06 [facility] Out[facility] Encounter [id number] VINI VILLANUEVA 12/11 [facility] OFFICE O/P EST MOD 30 MIN [id number] Diagnos is: ICD-10- CM F33.9 Major depress marques disorde r, recurre nt, unspeci fied
MANUEL COLINDRES SSICA E 12/20 [facility] Out[facility] Encounter [id number] [id number] 12/20 [facility] Outpatient Encounter [id number] 12/24 [facility] [place] OFF[facility] O/P EST MOD 30 MIN [id number] [id number] 20 Diagnos is: ICD-10- CM G89.4 Chronic pain syndrom e
VINI VILLANUEVA C 12/24 [place] [facility] Out[facility] Encounter [id number] 12/24 [facility] Outpatient Encounter [id number] 01/03 [facility] Out[facility] Encounter [id number] 01/08 [facility] Outpatient Encounter [id number] 01/31 [facility] Out[facility] Encounter [id number] [id number] 02/01 [facility] Out[facility] Encounter [id number] 02/04 [facility] OFFICE O/P EST HI 40 MIN [id number] Diagnos is: ICD-10- CM G89.4 Chronic pain syndrom e
KUPFERSCHM ID,JOSE B 02/04 [facility] Out[facility] Encounter [id number] [id number] 02/04 [facility] Out[facility] Encounter [id number] 02/04 [facility] Out[facility] Encounter [id number] [id number] 02/07 [facility] Outpatient Encounter [id number] 02/08 [facility] [place] OFFICE O/P EST MOD 30 MIN [id number] [id number] Diagnos is: ICD-10- CM E11.9 Type 2 diabete s mellitu s without complic ations< br/> VINI VILLANUEVA 02/12 [place] [facility] Outpatient Encounter [id number] 02/12 [facility] OFFICE O/P EST MOD 30 MIN [id number] [id number] Diagnos is: ICD-10- CM F33.9 Major depress marques disorde r, recurre nt, unspeci fied
MANEUL COLINDRES SSICA E 02/14 [facility] Out[facility] Encounter [id number] 02/14 [facility] Out[facility] Encounter [id number] 02/15 [facility] Out[facility] Encounter [id number] 02/18 [facility] Out[facility] Encounter [id number] 03/01 [facility] Out[facility] Encounter [id number] 03/07 [facility] OFFICE O/P EST MOD 30 MIN [id number] Diagnos is: ICD-10- CM F33.9 Major depress marques disorde r, recurre nt, unspeci fied
MANUEL COLINDRES SSICA E 03/07 [facility] Outpatient Encounter [id number] 1.03/08 [facility] Outpatient Encounter [id number] 03/11 [facility] QNHP OL DIG ASSMT&MGMT 5-10 [id number] [id number] Diagnos is: ICD-10- CM Z04.89 Encount er for examina tion and observa tion for oth reasons
CANDELARIO OSEGUERA 03/11 [facility] [place] OFFICE O/P EST MOD 30 MIN [id number] [id number] Diagnos is: ICD-10- CM I10 Essenti al (primar y) hyperte nsion<b r/> VINI VILLANUEVA C 03/11 [place] [facility] Out[facility] Encounter [id number] 03/11 [facility] [place] Outpatient Encounter [id number] [id number] 29 03/12 [place] [facility] Out[facility] Encounter [id number] [id number] 03/12 [facility] Out[facility] Encounter [id number] 03/25 [facility] Out[facility] Encounter [id number] 03/27 [facility] OFFICE O/P EST MOD 30 MIN [id number] [id number] Diagnos is: ICD-10- CM F33.9 Major depress marques disorde r, recurre nt, unspeci fied
MANUEL COLINDRES SSICA E 04/04 [facility] Out[facility] Encounter [id number] 04/05 [facility] OFFICE O/P EST MOD 30 MIN [id number] [id number] Diagnos is: ICD-10- CM G89.4 Chronic pain syndrom e
KUPFERSCHM ID,JOSE B 04/08 [facility] Out[facility] Encounter [id number] 04/10 [facility] Out[facility] Encounter [id number] 04/12 [facility] Outpatient Encounter [id number] [facility] Outpatient Encounter [id number] 1.04/16 [facility] Outpatient Encounter [id number] 1.04/18 [facility] Out[facility]counter [id number] [facility] Outpatient Encounter [id number] [id number]/19 [facility] Out[facility] Encounter [id number] 1.04/23 [facility] Out[facility] Encounter [id number] 1. ZACHARY ABBOTT 04/24 [facility] [place] MTMS BY PHARM ADDL 15 MIN 88060-5.63 1BY. 83 Diagnos is: ICD-10- CM E11.9 Type 2 diabete s mellitu s without complic ations< br/> HITESH KNUTSON A 04/26 [place] [facility] OFFICE O/P EST LOW 20 MIN [id number] 1. Diagnos is: ICD-10- CM F33.9 Major depress marques disorde r, recurre nt, unspeci fied
MANUEL COLINDRES E 04/30 [facility] [place] [id number] [id number] Diagnos is: ICD-10- CM R63.4 Abnorma l weight loss
BRAYAN ARAGON P 05/01 [place] OFFICE O/P EST MOD 30 MIN 51772-2.63 1BY. 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 JACOBY AMAKAYLA YS 05/20 [facility] HEARING AID FITTING/CH ECKING 32008-5.63 1. Diagnos is: ICD-10- CM H90.3 Sensori neural hearing loss, bilater al
SENIOR,RUTH OLE L 05/31 [facility] COMPRE OPH EXAM NEW PT 1/> [id number] [id number] Diagnos is: ICD-10- CM E11.9 Type 2 diabete s mellitu s without complic ations< br/> BARBARA ARTEAGA 05/31 [facility] FIT SPECTACLES BIFOCAL [id number] [id number] Diagnos is: ICD-10- CM Z46.0 Encount er for fit/adj st of spectac les and contact lenses< br/> BARBARA ARTEAGA 05/31 [facility] OFF[facility] O/P NEW LOW 30 MIN 83688-9.63 1BY. 37 Diagnos is: ICD-10- CM L60.0 Ingrowi ng nail
FREEMAN MAYERS ES F 06/10 [place] [facility] OFFICE O/P EST MOD 30 MIN [id number] Diagnos is: ICD-10- CM F33.9 Major depress marques disorde r, recurre nt, unspeci fied
MANUEL COLINDRES SSICA E 06/11 [facility] INDIV SUBSEQ [id number] Diagnos is: ICD-10- CM R63.4 Abnorma l weight loss
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, right eye, mild stage<b r/> BARBARA ARTEAGA 06/21 [facility] CMPTR OPHTH IMG OPTIC NERVE [id number] Diagnos is: ICD-10- CM 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, right eye, mild stage<b r/> BARBARA ARTEAGA 06/21 [facility] COMPRE OPH EXAM EST PT 1/> [id number] Diagnos is: ICD-10- CM H40.141 2 Capslr glaucom a w/pseud xf lens, right eye, moderat e stage<b r/> BARBARA ARTEAGA 06/21 [facility] LD QNHP OL DIG ASSMT&MGMT 5-10 [id number] Diagnos is: ICD-10- CM J44.9 Chronic obstruc tive pulmona ry disease , unspeci fied
NIURKA PATELB IE 06/28 [facility] [place] [facility] CONFORMITY EVALUATION 77062-7.63 1. Diagnos is: ICD-10- CM Z46.1 Encount er for fitting and adjustm ent of hearing aid<br/ > Dannie MULLEN E 07/05 [facility] Outpatient Encounter [id number] 1.07/29 [facility] OFFICE O/P EST MOD 30 MIN 84840-8.63 1. Diagnos is: ICD-10- CM F33.9 Major depress marques disorde r, recurre nt, unspeci fied
MANUEL COLINDRESCA E 07/30 [facility] Outpatient Encounter [id number] 1.07/31 [facility] Outpatient Encounter [id number] 1.08/02 [facility] OFFICE O/P EST LOW 20 MIN 16393-7.63 [id number] Diagnos is: ICD-10- CM G89.4 Chronic pain syndrom e
KUPFERSCHM ID,JOSE B 08/05 [facility] Outpatient Encounter [id number] 08/07 [facility] Social History Combined list of available smoking, tobacco, and other social history from [facility] Defense and [facility] facilities. Social History Type Response Date Comment Source Tobacco smoking status NHIS VA-TOBACCO NEVER USED 12/25/2023 [facility] [facility] History of tobacco use SD-TOBACCO USER EVERY DAY 12/25/2023 [place] History of tobacco use SD-TOBACCO USER EVERY DAY 12/13/2022 [facility] [place] [facility] History of tobacco use VA-TOBACCO USER EVERY DAY 11/17/2021 [facility] [place] [facility] History of tobacco use V1-PT NOT INTERESTED IN QUIT TOBACCO USE 10/14/2013 [facility] [place] [facility] History of tobacco use CURRENT SMOKER 05/07/2013 trying to stop [facility] [place] [facility] History of tobacco use V1-PT DECLINES TOBACCO CESSATION MEDS 12/03/2012 [facility] [place] [facility] History of tobacco use CURRENT SMOKER 06/05/2012 1/2ppd [facility] [place] [facility] History of tobacco use V1-PT DECLINES TOBACCO CESSATION MEDS 11/25/2011 [facility] [place] [facility] History of tobacco use CURRENT SMOKER 05/06/2011 [facility] [place] [facility] History of tobacco use V1-PT DECLINES TOBACCO CESSATION MEDS 09/24/2010 [facility] [place] [facility] History of tobacco use CURRENT SMOKER 03/22/2010 1/2 ppd [facility] [place] [facility] History of tobacco use QUIT TOBACCO USE IN PAST YEAR 02/25/2009 [facility] History of tobacco use CURRENT SMOKER 08/26/2008 1/2 ppd [facility] History of tobacco use V1-PT DECLINES TOBACCO CESSATION MEDS 12/19/2007 [facility] History of tobacco use CURRENT SMOKER 09/11/2007 [facility] [place] [facility] History of tobacco use CURRENT SMOKER 04/05/2007 1pk [facility] [facility] History of tobacco use V1-PT DECLINES TOBACCO CESSATION MEDS 02/13/2007 [facility] History of tobacco use QUIT TOBACCO USE IN PAST YEAR 10/02/2006 3 months ago [facility] History of tobacco use QUIT TOBACCO USE IN PAST YEAR 08/19/2005 nonsmoker [facility] History of tobacco use CURRENT SMOKER 09/21/2004 [facility] History of tobacco use CURRENT SMOKER 09/07/2004 [facility] History of tobacco use CURRENT SMOKER 09/15/2003 smokes one pk day [facility] History of tobacco use CURRENT SMOKER 07/23/2003 [facility] Plan of Care List of future care activities from [facility] facilities. Additional future care activities may be listed in the Assessment and Plan section. Date/Time Care Activity Care Activity Detail Facili ty 09/06/2024 AMBULATORY - MEDICINE AMBULATORY - MEDICI NE [facility] 09/26/2024 AMBULATORY - MEDICINE AMBULATORY - MEDICI [facility] 10/08/2024 AMBULATORY - PSYCHIATRY AMBULATORY - PSYC HIATRY [facility] 10/21/2024 AMBULATORY - MEDICINE AMBULATORY - MEDICI [facility] Advance Directives List of completed, amended, or rescinded Advance Directives on record at [facility] facilities. An actual copy of the Directive is not included. Date Advance Directive Provider Source 04/10/2023 ADVANCE DIRECTIVE ESSIE STARK [facility] 04/19/2007 ADVANCE DIRECTIVE VICTORIA [facility]
--- OUTSIDE RECORDS SUMMARY | 2024-08-16 09:23 | XMS_ITS | Encounter Summary ---
Author Name [facility] [place] [facility] [place] Address [address] [place] [address] Care Team Providers Care Home Worker Name Role Phone TRACY VILLANUEVA Primary Care Provider Unavailabl e Insurance Providers: All historical and current Section Date Range: From patient's date of to the date document was created. This section includes the names of all active insurance providers for the patient. Insurance Provider Type of Coverage Plan Name Start of Policy Coverage End of Policy Coverage Group Number Member ID Insurance Provider's Telephone Number Policy Tuttle's Name Patient's Relationship to Policy Tuttle [place] MEDICARE SUPPLEMEN PHI MEDEX BRONZ E December 19, 2013 [id number] GUSTAVO ARAMBULA SR PATIENT [employer] MEDICARE SUPPLEMEN PHI MEDIC ARE SUPPL EMENT Jul 21, 2007 NONE [id number] [phone] Edgar ARAMBULA PATIENT [place] SUPPLEMEN PHI MEDEX BRONZ E December 19, 2013 [id number] GUSTAVO ARAMBULA SR PATIENT [place] OF [place] ([place]ARD) MEDICARE SUPPLEMEN PHI MEDEX BRONZ E December 19, 2013 [id number] Edgar ARAMBULA PATIENT MEDICARE (WNR) MEDICARE (M) PART A Oct 19, 2004 PART A [id number] Edgar ARAMBULAN PATIENT MEDICARE (WNR) MEDICARE (M) PART B Oct 19, 2004 PART B [id number] Edgar ARAMBULAN PATIENT MEDICARE (WNR) MEDICARE (M) PART A Oct 19, 2004 PART A [id number] [phone] Edgar ARAMBULAN PATIENT MEDICARE (WNR) MEDICARE () PART B Oct 19, 2004 PART B [id number] Edgar ARAMBULAN PATIENT MEDICARE (WNR) MEDICARE () PART A Oct 19, 2004 PART A [id number] Edgar ARAMBULAN PATIENT MEDICARE (WNR) MEDICARE () PART B Oct 19, 2004 PART B [id number] [id number] Edgar ARAMBULAN PATIENT MEDICARE (WNR) MEDICARE () PART A Oct 19, 2004 PART A [id number] Edgar ARAMBULAN PATIENT MEDICARE (WNR) MEDICARE () PART B Oct 19, 2004 PART B [id number] Edgar ARAMBULAN PATIENT MEDICARE (WNR) MEDICARE () PART A Oct 19, 2004 PART A [id number] Edgar ARAMBULA PATIENT MEDICARE (WNR) MEDICARE () PART B Oct 19, 2004 PART B [id number] Edgar ARAMBULA PATIENT Selected Encounter This section includes the information on record at [place] for the Encounter. Date/Time Encounter Type Encounter Description Reason Pro vider Source Mar 12, 2024 11:30 AM Outpatient Encounter PRIMARY CARE/MEDICINE IHE Encounter Template Text not used by [place] Plan of Treatment: Future Appointments (+ 6 months) and Future Tests (+/- 45 days) The Plan of Treatment section includes future care activities for the patient from all [facility] treatment[facility]. This section includes future appointments and future orders which are active, pending or scheduled. Future Appointments This section includes appointments that were scheduled to occur 6 months from the date of the Encounter, up to a maximum of 20 appointments. The data comes from all [place] treatment facilities. Appointment Date/Time Appointment Type Appointme nt Facility Name Apr 04, 2024 11:00 AM AMBULATORY - PSYCHIATRY [facility] Apr 08, 2024 09:30 AM AMBULATORY [facility] MEDICINE [facility] [place] [facility] Apr 10, 2024 10:45 AM AMBULATORY - MEDICINE [facility] [place] [facility] Apr 26, 2024 11:00 AM AMBULATORY - MEDICINE [facility] [place] [facility] Apr 30, 2024 08:30 AM AMBULATORY - PSYCHIATRY [facility] [place] May 01, 2024 11:00 AM AMBULATORY - NONE [facility] [place] May 14, 2024 11:30 AM AMBULATORY - MEDICINE [facility] May 31, 2024 11:00 AM AMBULATORY - REHAB MEDICIN E [facility] [place] May 31, 2024 12:00 PM AMBULATORY - MEDICINE [facility] [place] [facility] Jun 10, 2024 10:00 AM [facility] Jun 11, 2024 09:30 AM AMBULATORY - PSYCHIATRY [facility] [place] [facility] Jun 13, 2024 10:00 AM AMBULATORY - MEDICINE [facility] [place] [facility] Jun 19, 2024 11:00 AM AMBULATORY - NONE [facility] [place] [facility] Jun 21, 2024 09:00 AM AMBULATORY - MEDICINE [facility] [place] [facility] Jun 21, 2024 09:15 AM AMBULATORY - MEDICINE [facility] [place] [facility] Jun 21, 2024 09:30 AM AMBULATORY - MEDICINE [facility] [place] [facility] Jun 26, 2024 08:00 AM AMBULATORY - MEDICINE [facility] [place] [facility] Jul 05, 2024 09:00 AM AMBULATORY - REHAB MEDICIN E [facility] [place] Jul 30, 2024 09:30 AM [facility] Aug 05, 2024 09:45 AM AMBULATORY [place]ICINE [facility] [facility] Social History: Smoking Status (Most current) and Tobacco Use (All prior to encounter date) This section includes the most current, and the historical, smoking and tobacco- related health factors from the [place] facility where the Encounter took place. Current Smoking Status This section includes the most current smoking, or tobacco-related health factor, from the [place] facility where the Encounter took place. Date/Time Current Smoking Status Comment Facil ity December 25, 2023 09:00 AM VA-TOBACCO USER EVERY DAY [place] Tobacco Use History This section includes a history of the smoking, or tobacco-related health factors, that were collected on or before the date of the Encounter. The data comes from the [place] facility where the Encounter took place. 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 This section includes ALL of a patient's completed or amended [place] Advance and Rescinded Directives. The entries below indicate that a directive exists for the patient, but an actual copy is not included with this document. The data comes from all [facility]. Date Advance Directives Provider Source Apr 10, 2023 ADVANCE DIRECTIVE ESSIE STARK [facility] [facility] Apr 19, 2007 [facility] Radiology Reports: +/- 30 days of the encounter Radiology Reports For cases when an order for radiology services may have been completed prior to the date of the Encounter, the report list includes the Radiology Reports that were completed up to 30 days before dateof the Encounter. For cases when an order for radiology services may have been completed after the date of the Encounter, the report list also includes the Radiology Reports that were completed up to30 days after date of the Encounter. The data comes from all [place] treatment facilities. Date/Time Radiology Report Provider Source Feb 15, 2024 09:[address] THORAX W/O CONT: GUSTAVO ARAMBULA -1940 M Exm Date: FEB 15, 2024@09:56 Req Phys: KAYTRACY Loc: CWM/SO/PACT 7 (Req'g Loc) Img Loc: NHM/CT Service: Unknown [facility] , (Case [id number] COMPLETE) CT THORAX W/O CONT (CT Detailed) CPT:66467 Reason for Study: smoker x 65 years Clinical History: Report Status: Verified Date Reported: FEB 20, 2024 Date Verified: FEB 20, 2024 Barrel Handler E-Sig: Report: CT THORAX W/O CONT HISTORY: smoker x 65 years COMPARISON: April 19, 2006 TECHNIQUE: Helical CT of the chest, with multiplanar reformats including maximum intensity projection (MIP) reconstructions, was performed at the local [place] facility. 1019 images were received by the [place] [facility] ([facility]) for interpretation. RADIATION DOSE (mGy*cm): 49.8 IV CONTRAST: Not administered. FINDINGS: Lower Neck: Unremarkable. Airways: Scattered areas of minor airway debris bronchial wall thickening the nondependent wall of both mainstem bronchi a triangular configuration on sagittal reformatted imaging. Lungs: Mild emphysema.Left upper lobe calcified granuloma. Pleura: Biapical pleural scarring and calcification. Small calcified plaque anterior left lung and probable small focus of right anterior pleural calcification. Mediastinum: Normal heart size. Severe coronary artery calcifications. Trace pericardial fluid. Apparent transcatheter aortic valve repair. Great Vessels: Ectatic ascending aorta measuring 3.7 cm Moderate atherosclerotic calcification. Marked calcification of the left subclavian artery origin prominent mesenteric and renal artery vascular calcification. Main pulmonary artery is normal caliber Limited noncontrast assessment. Lymph Nodes: No mediastinal, axillary or supraclavicular lymphadenopathy. Evaluation of hilar lymph nodes is limited without intravenous contrast. Upper Abdomen: Lobulated splenic contours or scarring. Severe upper abdominal vascular calcifications. Colonic diverticulosis partially imaged. Chest Wall: No significant changes. Possible minor body wall edema. Bones: The bones are osteopenic. There are multilevel severe degenerative changes of the spine. There is exaggeration of the thoracic kyphosis there is mild grade 1 anterolisthesis of T1 on T2. Impression: 1. Mild emphysema. 2. Mild airway debris and bronchial wall thickening. No definite endobronchial nodule. Follow-up can be considered. 3. Left upper lobe calcified granuloma. No suspicious nodule. 4. A few small areas of bilateral pleural calcification, nonspecific. 5. Severe atherosclerotic calcification and coronary calcification. Apparent transcatheter aortic valve repair. Colonic diverticulosis is partially imaged. Degenerative changes of the spine including mild grade 1 degenerative anterolisthesis T1 on T2 and findings as above. READING PHYSICIAN: Ck Jean M.D. -[phone] 02/20/2024 12:57 PDT [facility] National Teleradiology Program [phone] (For Medical Practitioner Use Only) Attention Patients / Veterans: If you have questions or concerns about these test results, please contact your ordering provider or primary care team. Primary Diagnostic Code: SIGNIFICANT ABNORMALITY, ATTN NEEDED Primary Interpreting Staff: RADIOLOGY,OUTSIDE SERVICE, Staff Physician / RADIOLOGY,OUTSIDE SERVICE [facility] [place] [facility] Encounter Notes: All associated encounter notes This section contains the clinical notes associated to the Encounter. Date/Time Encounter Note(s) Provider Source Mar 08, 2024 01:58 PM PRIMARY CARE TELEP MELVI ENCOUNTER NOTE: LOCAL TITLE: TELEPHONE NOTE/PRIMARY CARE STANDARD TITLE: PRIMARY CARE TELEPHONE ENCOUNTER NOTE DATE OF NOTE: MAR 08, 2024@13:58 ENTRY DATE: MAR 08, 2024@13:58:53 AUTHOR: RABIA MANN COSIGNER: URGENCY: STATUS: COMPLETED Supervisor Tubing called to [ ] Schedule primary care appt [X] Reschedule primary care appt.03/11/2024@0900 [X} Remind of upcoming primary care appt. SPOKE WITH: [ ] Fasting blood work needed, and vet reminded. [ ] Non fasting blood work needed, and vet reminded. [X} No labs needed. /reginaldo/ RABIA MANN ADVANCED LIAISON ENGINEER Signed: 03/08/2024 14:04 RABIA MANN Feb 20, 2024 04:23 PM TELEPHONE ENCOUNTE R NOTE: LOCAL TITLE: TELEPHONE NOTE/PA STANDARD TITLE: TELEPHONE ENCOUNTER NOTE DATE OF NOTE: FEB 20, 2024@16:23 ENTRY DATE: FEB 20, 2024@16:23:40 AUTHOR: GUSTAVO MCKEON EXP COSIGNER: URGENCY: STATUS: COMPLETED i called spoke to son i described finding of ct of lungs there are abnl findings that are chronic in nature no suspicious lesions for malignancy /es/ GUSTAVO MCKEON PA-C STAFF PHYSICIAN BAKERY CHEF Signed: 02/20/2024 16:25 GUSTAVO MCKEONFIELD
--- OUTSIDE RECORDS SUMMARY | 2024-08-16 09:23 | XMS_ITS | Encounter Summary ---
Author Name [facility] Organization [facility] [place] Address [address] [place] [address] Care Team Providers Care Him Assistant Name Role Phone TRACY CARRILLO Primary Care Provider Unavailabl e Insurance Providers: [...] PHI MEDEX BRONZ E December 19, 2013 [id number] [phone] GUSTAVO ARAMBULA SR PATIENT [employer] MEDICARE SUPPLEMEN PHI MEDIC ARE SUPPL EMENT Jul 21, 2007 NONE [id number] [phone] Edgar ARAMBULA PATIENT [place] SUPPLEMEN PHI MEDEX BRONZ E December 19, 2013 [id number] [phone] GUSTAVO ARAMBULA SR PATIENT [place] MEDICARE SUPPLEMEN PHI MEDEX BRONZ E December 19, 2013 [id number] SEVIGNE,J [place] PATIENT MEDICARE (WNR) MEDICARE (M) PART A Oct 19, 2004 PART A [id number] Edgar ARAMBULA [place] PATIENT MEDICARE ([place]) MEDICARE (M) PART B Oct 19, 2004 PART B [id number] Edgar ARAMBULA [place] PATIENT MEDICARE ([place]) MEDICARE (M) PART A Oct 19, 2004 PART A [id number] Edgar ARAMBULA [place] PATIENT MEDICARE (WNR) MEDICARE () PART B Oct 19, 2004 PART B [id number] [phone] [id number] Edgar ARAMBULA [place] PATIENT MEDICARE (WNR) MEDICARE () PART A Oct 19, 2004 PART A [id number] [phone] [id number] Edgar ARAMBULA [place] PATIENT MEDICARE ([place]) MEDICARE () PART B Oct 19, 2004 PART B [id number] [phone] [id number] Edgar ARAMBULA [place] PATIENT MEDICARE (WNR) MEDICARE () PART A Oct 19, 2004 PART A [id number] Edgar ARAMBULA [place] PATIENT MEDICARE ([place]NR) MEDICARE () PART B Oct 19, 2004 PART B [id number] Edgar ARAMBULA [place] PATIENT MEDICARE ([place]) MEDICARE () PART A Oct 19, 2004 PART A [id number] Edgar ARAMBULAN PATIENT MEDICARE (WNR) MEDICARE () PART B Oct 19, 2004 PART B [id number] Edgar ARAMBULAN PATIENT Selected Encounter This section includes the information on record at [place] for the Encounter. Date/Time Encounter Type Encounter Description Reason Provider Source Sep 27, 2023 01:00 AM Outpatient Encounter SLEEP MEDICINE ICD-10-CM R53.83 Other fatigue CURIOSO-UY,SCOOBY THIA IHE Encounter Template Text not used by [facility] Assessments - Encounter Diagnoses This section includes the primary and secondary diagnoses documented for the Encounter. Date/Time Primary/Secondary Diagnosis Diagnosis Name Provider Source Sep 27, 2023 01:27 AM PRIMARY Other fatigue CURIOSO-UY,SCOOBY THIA [facility] Plan of Treatment: Future Appointments (+ 6 months) and Future Tests (+/- 45 days) The Plan of Treatment section includes future care activities for the [facility] This section includes future appointments and future orders which are active, pending or scheduled. Future Appointments This section includes appointments that were scheduled to occur 6 months from the date of the Encounter, up to a maximum of 20 appointments. The data comes from all [facility]. Appointment Date/Time Appointment Type Appointme nt Facility Name Oct 16, 2023 09:00 AM AMBULATORY - MEDICINE [place] [facility] [place] [facility] Nov 06, 2023 09:30 AM AMBULATORY - MEDICINE [place] [facility] [place] [facility] December 21, 2023 09:00 AM AMBULATORY - PSYCHIATRY [facility] [place] [facility] December 25, 2023 09:00 AM [facility] Feb 05, 2024 10:00 AM AMBULATORY - MEDICINE [place] [facility] [place] [facility] Feb 13, 2024 11:30 AM AMBULATORY - MEDICINE [facility] Feb 15, 2024 09:00 AM AMBULATORY - PSYCHIATRY [facility] [place] [facility] Feb 15, 2024 09:45 AM AMBULATORY - NONE [facility] [place] [facility] Mar 07, 2024 09:00 AM AMBULATORY - PSYCHIATRY [facility] [place] [facility] Mar 08, 2024 08:30 AM AMBULATORY - NONE [facility] [place] [facility] Mar 11, 2024 09:00 AM AMBULATORY MEDICINE [facility] Active, Pending, and Scheduled Orders This section includes a listing of several types of active, pending, and scheduled orders, including clinic medications orders, diagnostic test orders, procedure orders and consult orders; where the start date of the order is 45 days before the date of the Encounter or 45 days after the date of theEncounter. The data comes from all [facility]. Test Date/Time Test Type Test Details Facility Name Sep 05, 2023 12:00 AM Laboratory - Chemi stry Order OCCULT BLOOD FIT X1 SCREEN(IN-HOUSE) STOOL FECES SP [place] [facility] [place] [facility] Sep 26, 2023 09:55 AM Consult Order [facility] Cons Scrub Nurse's Choice [place] Lab Results: +/- 30 days of the encounter This section includes the Chemistry and Hematology Lab Results on record with [place] for the patient. Radiology Reports and Pathology Reports are provided separately, in subsequent sections. Lab Results This section contains the Chemistry/Hematology Results that were resulted 30 days before or 30 daysafter the date of the Encounter. Date/Time Source Result Type Result - Unit Interpretation Reference Range Comment Sep 05, 2023 10:56 [facility] FERRITIN Specimen Type: SERUM No comment entered. Ordering Provider: YOAN CHILDS Report Released Date/Time: Sep 05, 2023 10:30 AM Reporting Lab: [facility] [address] [address] Performing Lab: [facility] [address] FERRITIN 25 ng/mL 20-300 Sep 05, 2023 10:56 AM [facility] IRON & TIBC PANEL Specimen Type: SERUM No comment entered. Ordering Provider: YOAN CHILDS Report Released Date/Time: Sep 05, 2023 10:30 AM Reporting Lab: [facility] [address] [address] Performing Lab: [facility] [address] TIBC 401 ug/dL 204-475 IRON 53 ug/dL 40-160 Transferrin Saturation 13.2 L 20.0-50.0 Sep 05, 2023 10:56 AM [facility] CBC AND DIFF (AUTO) Specimen Type: BLOOD No comment entered. Ordering Provider: YOAN CHILDS Report Released Date/Time: Sep 05, 2023 10:30 AM Reporting Lab: [facility] [address] [address] Performing Lab: [facility] [address] [address] WBC 5.66 10*3/uL 4.50-11.00 RBC 4.25 10*6/uL 4.23-5.66 HGB 12.1 g/dL L 12.8-17 HCT 35.5 L 39.2-50.4 MCV 83.5 fL 82-99 MCHC 34.1 g/dL 30.8-35.1 PLT 295 10*3/uL 140-360 RDW-CV 12.0 12.0-16.0 [place], Abs 0.59 10*3/uL 0.30-1.10 MCH 28.5 pg 26.2-32.6 Neut % 56.3 43.7-75.8 Lymph % 27.2 14.0-42.3 [place] % 10.4 5.1-13.7 Eos % 4.1 0.4-6.8 Baso % 1.6 0.1-2.0 Neut, Abs 3.19 10*3/uL 2.20-7.60 Lymph, Abs 1.54 10*3/uL 1.00-3.20 Eos, Abs 0.23 10*3/uL 0.03-0.44 Baso, Abs 0.09 10*3/uL 0.01-0.13 Immature Gran % 0.4 0.0-0.7 Immature Gran, Abs 0.02 10*3/uL 0.00-0.06 Sep 01, 2023 10:29 AM [facility] HEMOGLOBIN A1C PANEL Specimen Type: BLOOD Comment: Values obtained from A1C measurements can vary. For atypical A1C assays, a reported value of 7.0 could actually be between 6.72 and 7.28 if measured by a reference method. A reported value of 9.0 could actually be between 8.73 and 9.27. Ref: http://www.ngs p.org/CAPdata. asp Ordering Provider: YULY AUSTIN Report Released Date/Time: Aug 17, 2023 08:25 AM Reporting Lab: [address] [address] Performing Lab: [address] [address] HEMOGLOBIN A1C 6.7 H 4.0-5.6 Sep 01, 2023 10:29 AM [facility] BASIC METABOLIC PANEL (fasting) Specimen Type: SERUM No comment entered. Ordering Provider: YULY AUSTIN Report Released Date/Time: Aug 17, 2023 08:25 AM Reporting Lab: [facility] [address] [facility] [address] Performing Lab: [facility] [address] [facility] [facility] [address] UREA NITROGEN 10 mg/dL 7-25 GLUCOSE 135 mg/dL H 65-100 SODIUM 138 mmol/L 135-145 POTASSIUM 3.9 mmol/L 3.5-5.0 CHLORIDE 101 mmol/L 100-110 CO2 27 meq/L 20-30 CREATININE, Serum 0.73 mg/dL 0.50-1.40 eGFR(CKD-EPI 2020) 90 mL/min >60 Sep 01, 2023 10:29 AM [facility] LIVER FUNCTION Specimen Type: SERUM No comment entered. Ordering Provider: YULY AUSTIN Report Released Date/Time: Aug 17, 2023 08:25 AM Reporting Lab: [facility] [address] [facility] [address] Performing Lab: [facility] [address] [facility] [address] PROTEIN,TOTAL 6.9 g/dL 6.0-8.3 ALBUMIN 3.8 g/dL 3.5-5.0 ALKALINE PHOSPHATASE 91 U/L 40-150 AST 14 U/L 5-34 ALT 13 U/L BILIRUBIN, TOTAL 0.5 mg/dL 0.2-1.2 Sep 01, 2023 10:29 AM [facility] MICROALBUMIN CREATININE RATIO PANEL Specimen Type: URINE No comment entered. Ordering Provider: YULY AUSTIN Report Released Date/Time: Aug 17, 2023 08:25 AM Reporting Lab: [facility] [address] [facility] [address] Performing Lab: [address] [address] MICROALBUMIN/C REATININE RATIO 9.0 mg/g 0-29.9 MICROALBUMIN,Q UANTITATIVE 1.0 mg/dL RR UNAVAIL CREATININE URINE 110.79 mg/dL Sep 01, 2023 10:29 AM [facility] LIPID PANEL FASTING Specimen Type: SERUM No comment entered. Ordering Provider: YULY AUSTIN Report Released Date/Time: Aug 17, 2023 08:25 AM Reporting Lab: [facility] [address] [facility] [address] Performing Lab: [facility] [address] [facility] [address] CHOLESTEROL 133 mg/dL TRIGLYCERIDE 73 mg/dL 0-150 LDL calculated 75 mg/dL 0-129 CHOL/HDL 3.1 HDL CHOLESTEROL 43 mg/dL 40-60 Sep 01, 2023 10:29 AM [facility] CBC AND DIFF (AUTO) Specimen Type: BLOOD No comment entered. Ordering Provider: YULY AUSTIN Report Released Date/Time: Aug 17, 2023 08:25 AM Reporting Lab: [facility] [address] [facility] [address] Performing Lab: [facility] [address] [facility] [address] WBC 8.35 10*3/uL 4.50-11.00 RBC 4.17 10*6/uL L 4.23-5.66 HGB 12.0 g/dL L 12.8-17 HCT 35.3 L 39.2-50.4 MCV 84.7 fL 82-99 MCHC 34.0 g/dL 30.8-35.1 PLT 305 10*3/uL 140-360 RDW-CV 12.3 12.0-16.0 [place], Abs 0.71 10*3/uL 0.30-1.10 MCH 28.8 pg 26.2-32.6 Neut % 66.3 43.7-75.8 Lymph % 20.8 14.0-42.3 [place] % 8.5 5.1-13.7 Eos % 3.0 0.4-6.8 Baso % 1.0 0.1-2.0 Neut, Abs 5.54 10*3/uL 2.20-7.60 Lymph, Abs 1.74 10*3/uL 1.00-3.20 Eos, Abs 0.25 10*3/uL 0.03-0.44 Baso, Abs 0.08 10*3/uL 0.01-0.13 Immature Gran % 0.4 0.0-0.7 Immature Gran, Abs 0.03 10*3/uL 0.00-0.06 Social History: Smoking Status (Most current) and Tobacco Use (All prior to encounter date) This section includes the most current, and the historical, smoking and tobacco- related health factors from the [place] facility where the Encounter took place. Current Smoking Status This section includes the most current smoking, or tobacco-related health factor, from the [place] facility where the Encounter took place. Date/Time Current Smoking Status Comment Lopez camacho Apr 05, 2007 08:48 AM CURRENT SMOKER 1pk [facility] Advance Directives: All historical and current Section Date Range: From patient's date of to the date document was created. This section includes ALL of a patient's completed or amended [place] Advance and Rescinded Directives. The entries below indicate that a directive exists for the patient, but an actual copy is not included with this document. The data comes from all [place] facilities. Date Advance Directives Provider Source Apr 10, 2023 ADVANCE DIRECTIVE [place] [facility] [place] [facility] Apr 19, 2007 ADVANCE DIRECTIVE VICTORIA JOHNSON [facility] Radiology Reports: +/- 30 days of the [...] the Encounter. The data comes from all [place] treatment facilities. 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 Comparison: Lumbar spine radiographs from September 30, 2010 Findings: There are 5 lumbar type vertebral bodies again identified. Now moderate calcific atherosclerotic change is present in the aorta. No aneurysmal dilatation is identified. 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 There is a moderate lumbar levoscoliotic curvature again seen. Overlying hernia repair auto sutures are present. Surgical clips are again present in the pelvis. The patient is status post bilateral hip replacements. The vertebral body heights are normal. There is worsening of severe diffuse facet joint hypertrophic changes within the lumbar spine. No acute bony abnormality is seen. Impression: Worsening multilevel degenerative changes to the lumbar spine, as described above. Primary Diagnostic Code: No immediate attention required Primary Interpreting Staff: CHERYLE GUZMAN JR, Radiologist (Casting Finisher) /CHERYLE VALENCIA JR 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 Comparison: Hip radiographs from September 05, 2023. Findings: The bony mineralization is normal. Vascular calcifications in the thighs. Again status post bilateral hip replacements. The prosthetic components appear intact and without evidence of loosening. The pelvic bones are intact. No acute bony abnormality is seen. Impression: No new abnormality identified. Primary Diagnostic Code: No immediate attention required Primary Interpreting Staff: CHERYLE GUZMAN JR, Radiologist (Casting Finisher) /CHERYLE VALENCIA JR [facility] Sep 05, 2023 11:05 AM HIP 2-3 VIEWS(LEFT) WITH OR WITHOUT PELVIS: GUSTAVO ARAMBULA -1940 M [facility] Date: SEP 05, 2023@11:05 Req Phys: DANIELE CHILDS Pat Loc: CWM/NO/PACT/FIRM POWER SUPERINTENDENT (Req'g Loc Img Loc: [facility] 1 Service: Unknown (Case 18 COMPLETE) HIP 2-3 VIEWS(LEFT) WITH OR WITHO(RAD Detailed) CPT:46011 Proc Modifiers : LEFT CPT Modifiers : LT LEFT SIDE Reason for Study: chronic left hip pain Clinical History: Report Status: Verified Date Reported: SEP 05, 2023 Date Verified: SEP 05, 2023 Casting Finisher E-Sig:/ES/CHERYLE GUZMAN JR Report: Study: AP view of the pelvis with frogleg lateral view of the left hip. Comparison: Pelvic and left hip radiographs from May 16, 2013. Findings: Again status post bilateral total hip replacements. Both prostheses are intact without evidence of loosening on either side. No bone fracture of either femoral shaft or of the pelvis. Surgical clips are again seen in the lower pelvis without change. Bone mineralization is average for age. Disc narrowing is again seen at L4-L5 without significant change. SI joints are average appearing. Impression: No acute abnormality. Primary Diagnostic Code: No immediate attention required Primary Interpreting Staff: CHERYLE GUZMAN JR, Radiologist (Casting Finisher) /CHERYLE VALENCIA JR [facility] Encounter Notes: All associated encounter notes This section contains the clinical notes associated to the Encounter. Date/Time Encounter Note(s) Provider Source Sep 27, 2023 01:00 AM SLEEP MEDICINE CON SULT: LOCAL TITLE: SLEEP DISORDER E-CONSULT NOTE (WHAV) STANDARD TITLE: SLEEP MEDICINE CONSULT DATE OF NOTE: SEP 27, 2023@01:00 ENTRY DATE: SEP 27, 2023@01:00:37 AUTHOR: SAHRA VALLEJO EXP COSIGNER: URGENCY: STATUS: COMPLETED REPLY: Please consider for pt to be seen in sleep clinic for full evaluation of sleep symptoms as patient reports of fatigue can be due to multifactorial cause and may not be entirely from his NELLY. Will need to look into his fatigue vs sleepiness further. Download data showed his current CPAP 7-10 cm H20 is effectively treating his NELLY with low residual AHI of 0.4/hr. However, compliance is subpar as though he's using his machine nightly, he's usage >4 hours is only at 57%. Current recommendation is to use PAP > 4 hours at least 70% of the time. Improvement of CPAP usage may help to improve daytime fatigue He is on several sedating medications at night which can linger during the daytime. He is on belbuca which can contribute to daytime sleepiness. Other medical condition that can contribute to fatigue should be looked at such as anemia, hypothyroid etc. /reginaldo/ SAHRA VALLEJO MD ATTENDING Signed: 09/27/2023 01:27 SAHRA VALLEJO [facility]
--- OUTSIDE RECORDS SUMMARY | 2024-08-16 09:26 | XMS_ITS | Encounter Summary ---
Author Name [facility] [place] [facility] [place] [facility] [place] [facility] [place] Address [address] [place] [address] Care Team Providers Care Registered Nurse Midwife Name Role Phone TRACY VILLANUEVA Primary Care [...] PHI MEDEX BRONZ E December 19, 2013 [id number] GUSTAVO ARAMBULA SR PATIENT [employer] CASUALTY MEDICARE SUPPLEMEN PHI MEDIC ARE SUPPL EMENT Jul 21, 2007 NONE [id number] Edgar ARAMBULA PATIENT [place] MED[place] SUPPLEMEN PHI MEDEX BRONZ E December 19, 2013 [id number] [phone] GUSTAVO ARAMBULA SR PATIENT [place] MEDICARE SUPPLEMEN PHI MEDEX BRONZ E December 19, 2013 [id number] [phone] Edgar ARAMBULA PATIENT MEDICARE (WNR) MEDICARE (M) PART A Oct 19, 2004 PART A [id number] Edgar ARAMBULA [place] PATIENT MEDICARE (WNR) MEDICARE (M) PART B Oct 19, 2004 PART B [id number] Edgar ARAMBULAN PATIENT MEDICARE (WNR) MEDICARE (M) PART A Oct 19, 2004 PART A [id number] [phone] Edgar ARAMBULAN PATIENT MEDICARE (WNR) MEDICARE (M) PART B Oct 19, 2004 PART B [id number] Edgar ARAMBULAN PATIENT MEDICARE (WNR) MEDICARE (M) PART A Oct 19, 2004 PART A [id number] [id number] Edgar ARAMBULAN PATIENT MEDICARE (WNR) MEDICARE () PART B Oct 19, 2004 PART B [id number] Edgar ARAMBULAN PATIENT MEDICARE (WNR) MEDICARE () PART A Oct 19, 2004 PART A [id number] [phone] Edgar ARAMBULA PATIENT MEDICARE (WNR) MEDICARE () PART B Oct 19, 2004 PART B [id number] Edgar ARAMBULAN PATIENT MEDICARE (WNR) MEDICARE () PART A Oct 19, 2004 PART A [id number] Edgar ARAMBULAN PATIENT MEDICARE (WNR) MEDICARE () PART B Oct 19, 2004 PART B [id number] [phone] Edgar ARAMBULA PATIENT Selected Encounter This section includes the information on record at [place] for the Encounter. Date/Time Encounter Type Encounter Description Reason Pro vider Source Feb 19, 2024 10:46 AM Outpatient Encounter ADMIN PAT ACTIVTIES (MASNONCT) IHE Encounter Template Text not used by [facility] Plan of Treatment: Future Appointments (+ 6 months) and Future Tests (+/- 45 days) The Plan of Treatment section includes future care activities for the patient from [facility] [place] [facility] This section includes future appointments and future orders which are active, pending or scheduled. Future Appointments This section includes appointments that were scheduled to occur 6 months from the date of the Encounter, up to a maximum of 20 appointments. The data comes from all [place] treatment facilities. Appointment Date/Time Appointment Type Appointme nt Facility Name Mar 07, 2024 09:00 AM AMBULATORY [facility] [place] [facility] Mar 08, 2024 08:30 AM AMBULATORY - NONE [facility] [place] [facility] Mar 11, 2024 09:00 AM AM[facility]ULATORY - [facility]ICINE [facility] Apr 04, 2024 11:00 AM AMBULATORY [facility] [place] [facility] Apr 08, 2024 09:30 AM AMBULATORY - MEDICINE [facility] [place] [facility] Apr 10, 2024 10:45 AM AMBULATORY - MEDICINE [facility] [place] [facility] Apr 26, 2024 11:00 AM AMBULATORY - MEDICINE [facility] [place] [facility] Apr 30, 2024 08:30 AM AMBULATORY - PS[facility]CHIATRY [facility] [place] [facility] May 01, 2024 11:00 AM AMBULATORY - NONE [facility] [place] [facility] May 14, 2024 11:30 AM [facility]ATORY - [facility]ICINE [facility] May 31, 2024 11:00 AM AMBULATORY - REHAB MEDICIN E [facility] [place] [facility] May 31, 2024 12:00 PM AMBULATORY - MEDICINE [facility] [place] [facility] Jun 10, 2024 10:00 AM AMBULATORY - MEDICINE [facility] Jun 11, 2024 09:30 AM AMBULATORY - PS[facility]CHIATRY [facility] [place] [facility] Jun 13, 2024 10:00 AM AMBULATORY - MEDICINE [facility] [place] [facility] Jun 19, 2024 11:00 AM AMBULATORY - NONE [facility] [place] [facility] Jun 21, 2024 09:00 AM AMBULATORY - MEDICINE [facility] [place] [facility] Jun 21, 2024 09:15 AM AMBULATORY - MEDICINE [facility] [place] [facility] Jun 21, 2024 09:30 AM AMBULATORY - MEDICINE [facility] [place] [facility] Jun 26, 2024 08:00 AM AMBULATORY - MEDICINE [place] [facility] [place] [facility] Social History: Smoking Status (Most current) and Tobacco Use (All prior to encounter date) This section includes the most current, and the historical, smoking and tobacco- related health factors from the [place] facility where the Encounter took place. Current Smoking Status This section includes the most current smoking, or tobacco-related health factor, from the [place] facility where the Encounter took place. Date/Time Current Smoking Status Comment Facil it December 25, 2023 09:05 AM VA-TOBACCO NEVER USED [place] [facility] Tobacco Use History This section includes a history of the smoking, or tobacco-related health factors, that were collected on or before the date of the Encounter. The data comes from the [place] facility where the Encounter took place. Date/Time Smoking Status/Tobac co Use Comment Facility Dec 13, 2022 03:00 PM VA-TOBACCO DOESNT USE WI 30 MIN WAKEUP [facility] [place] [facility] Dec 13, 2022 03:00 PM VA-TOBACCO USE 30 YEARS OR MORE [facility] [place] [facility] Dec 13, 2022 03:00 PM VA-TOBACCO USE ADVICE [facility] [place] 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 Dec 13, 2022 03:00 PM VA-TOBACCO USE MED NO [facility] [place] [facility] Dec 13, 2022 03:00 PM VA-TOBACCO USER EVERY DAY [facility] [place] [facility] Nov 17, 2021 10:00 AM VA-TOBACCO USE 30 YEARS OR MORE [facility] [place] [facility] Nov 17, 2021 10:00 AM VA-TOBACCO USE ADVICE [facility] [place] 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 Nov 17, 2021 10:00 AM VA-TOBACCO USE MED NO [facility] [place] [facility] Nov 17, 2021 10:00 AM VA-TOBACCO USE WI 30 MIN OF WAKEUP [facility] Nov 17, 2021 10:00 AM VA-TOBACCO USER EVERY DAY [facility] Oct 14, 2013 12:55 PM V1-PT NOT INTERESTED IN QUIT TOBACCO USE [facility] May 07, 2013 05:04 PM CURRENT SMOKER trying to stop [facility] May 07, 2013 05:04 PM V1-PT DECLINES REF TO TOBACCO CESS [facility] May 07, 2013 05:04 PM V1-PT DECLINES TOBACCO CESSATION MEDS [facility] May 07, 2013 05:04 PM V1-PT READY TO QUIT TOBACCO USE [facility] Dec 03, 2012 08:23 AM V1-PT DECLINES REF TO TOBACCO CESS PRGM [facility] Dec 03, 2012 08:23 AM V1-PT DECLINES TOBACCO CESSATION MEDS [facility] Dec 03, 2012 08:23 AM V1-PT THINKING ABOUT QUIT TOBACCO USE [facility] Jun 05, 2012 08:45 AM CURRENT SMOKER 1/2ppd [facility] Jun 05, 2012 08:45 AM V1-PT DECLINES REF TO TOBACCO CESS PRGM [facility] Jun 05, 2012 08:45 AM V1-PT THINKING ABOUT QUIT TOBACCO USE [facility] Jun 05, 2012 08:45 AM V1-TOBACCO CESS MEDS NOT PRESCRIBED Vet wants to talk to his provider-He is nervous about taking meds to quit- but he is interested in quitting [facility] Nov 25, 2011 09:14 AM V1-PT DECLINES REF TO TOBACCO CESS [facility] Nov 25, 2011 09:14 AM V1-PT DECLINES TOBACCO CESSATION MEDS [facility] Nov 25, 2011 09:14 AM V1-PT THINKING ABOUT QUIT TOBACCO USE [facility] May 06, 2011 01:02 PM CURRENT SMOKER [facility] [place] [facility] May 06, 2011 01:02 PM V1-PT DECLINES TOBACCO CESSATION MEDS [facility] [place] [facility] May 06, 2011 01:02 PM V1-PT NOT INTERESTED IN QUIT TOBACCO USE [facility] [place] [facility] Sep 24, 2010 08:51 AM V1-PT DECLINES TOBACCO CESSATION MEDS [facility] [place] [facility] Sep 24, 2010 08:51 AM V1-PT THINKING ABOUT QUIT TOBACCO USE [facility] [place] [facility] Mar 22, 2010 07:58 AM CURRENT SMOKER 1/2 ppd [facility] [place] [facility] Feb 25, 2009 12:05 PM QUIT TOBACCO USE IN PAST YEAR [facility] [place] [facility] Aug 26, 2008 09:28 AM CURRENT SMOKER 1/2 ppd [facility] Aug 26, 2008 09:28 AM V1-PT DECLINES REF TO TOBACCO CESS PRGM [facility] [place] [place] [facility] Aug 26, 2008 09:28 AM V1-PT READY TO QUIT TOBACCO USE [facility] [place] [facility] Dec 19, 2007 10:08 AM V1-PT DECLINES REF TO TOBACCO CESS PRGM [facility] Dec 19, 2007 10:08 AM V1-PT DECLINES TOBACCO CESSATION MEDS [facility] Dec 19, 2007 10:08 AM V1-PT THINKING ABOUT QUIT TOBACCO USE [facility] [place] [place] [facility] Sep 11, 2007 11:10 AM CURRENT SMOKER [facility] [place] [facility] Sep 11, 2007 11:10 AM V1-PT DECLINES REF TO TOBACCO CESS PRGM [facility] [place] [facility] Sep 11, 2007 11:10 AM V1-PT DECLINES TOBACCO CESSATION MEDS [facility] [place] [facility] Sep 11, 2007 11:10 AM V1-PT THINKING ABOUT QUIT TOBACCO USE [facility] [place] [facility] Feb 13, 2007 01:46 PM V1-PT DECLINES REF TO TOBACCO CESS PRGM [facility] Feb 13, 2007 01:46 PM V1-PT DECLINES TOBACCO CESSATION MEDS [facility] Feb 13, 2007 01:46 PM V1-PT THINKING ABOUT QUIT [facility]ACCO [facility] Oct 02, 2006 08:28 AM QUIT TOBACCO USE IN PAST YEAR 3 months ago [facility] Aug 19, 2005 08:33 AM QUIT TOBACCO USE IN PAST YEAR nonsmoker [facility] Sep 21, 2004 09:54 AM CURRENT SMOKER [facility] Sep 07, 2004 08:07 AM CURRENT SMOKER [facility] Sep 15, 2003 11:21 AM CURRENT SMOKER smokes one pk day [facility] Jul 23, 2003 01:57 PM CURRENT SMOKER [facility] Advance Directives: All historical and current Section Date Range: From patient's date of to the date document was created. This section includes ALL of a patient's completed or amended [place] Advance and Rescinded Directives. The entries below indicate that a directive exists for the patient, but an actual copy is not included with this document. The data comes from all [place] facilities. Date Advance Directives Provider Source Apr 10, 2023 ADVANCE DIRECTIVE ESSIE STARK [facility] Apr 19, 2007 ADVANCE DIRECTIVE VICTORIA JOHNSON [facility] Radiology Reports: +/- 30 days of [...] the Encounter. The data comes from all [place] treatment facilities. 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 1019 images were received by the [place] National Teleradiology Program (NTP) for interpretation. RADIATION [...] as above. READING PHYSICIAN: Ck Jean M.D. -[phone] 02/20/2024 12:57 PDT [facility] National Teleradiology Program [phone] (For Medical Practitioner Use Only) Attention Patients / Veterans: If you have questions or concerns about these test results, please contact your ordering provider or primary care team. Primary Diagnostic Code: SIGNIFICANT ABNORMALITY, ATTN NEEDED Primary Interpreting Staff: RADIOLOGY,OUTSIDE SERVICE, Staff Physician / RADIOLOGY,OUTSIDE SERVICE [facility] Encounter Notes: All associated encounter notes This section contains the clinical notes associated to the Encounter. Date/Time Encounter Note(s) Provider Source Feb 19, 2024 11:06 AM ADDENDUM: LOCAL TITLE: Addendum STANDARD TITLE: ADDENDUM DATE OF NOTE: FEB 19, 2024@11:06:36 ENTRY DATE: FEB 19, 2024@11:06:37 AUTHOR: CRISTIANE DOZIER COSIGNER: URGENCY: STATUS: COMPLETED Adding Pain Baggage Handling Supervisor to secure messages. /reginaldo/ MARCUS DOZIER LPN LPN Signed: 02/19/2024 11:07 Receipt Acknowledged By: 02/21/2024 10:21 /es/ JOSE NORTON MD PHYSICIAN === --- Original Document --- 02/19/24 CCC: SCHEDULING ADMINISTRATION: Patient Demographics Patient Name: GUSTAVO ARAMBULA Patient Primary Phone: [phone] Patient Primary Address: [facility] [address] [place] [id number] Patient : 1940 Patient Age: 83 Call Back Number: [phone] Caller/Recipient Relation to Patient: Other If Other Describe Relation to Patient: SON Caller Name: GUSTAVO Administrative Administrative Note Reason: Other Administrative Note Comments: PT SON CIARA REQUESTING A RETURN CALL TO DISCUSS MEDICATION PATCHES. 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 /reginaldo/ МАРИНА ESTEVEZ 1 [facility] AMSA Signed: 02/19/2024 10:46 Receipt Acknowledged By: 02/19/2024 11:07 /reginaldo/ MARCUS DOZIER LPN LPN 02/19/2024 11:43 /reginaldo/ KAPIL SUAREZ RN-BC REGISTERED NURSE for ZACHARY ABBOTT 02/19/2024 ADDENDUM STATUS: COMPLETED Called 's son, Gustavo, and advised that patches have been renewed and that they are being processed for mail delivery. Gustavo requested to pickup at pharmacy window due to [place] is out of patches. Author advised will forward request to pharmacy staff to assist. Gustavo verbalized understanding of information provided by author. /reginaldo/ KAPIL SUAREZ RN-BC REGISTERED NURSE Signed: 02/19/2024 11:51 02/19/2024 ADDENDUM STATUS: COMPLETED Message rec'd on [facility] Call Center regarding the above issue. As the matter appears to be resolved, no further action taken. /reginaldo/ SAMUEL HERNANDEZ, [place] PHYSICAL THERAPIST Signed: 02/19/2024 12:54 CRISTIANE DOZIER SUSU [facility] [place] [facility] Feb 19, 2024 10:46 AM ADMINISTRATIVE NOTE: LOCAL TITLE: [facility]: SCHEDULING ADMINISTRATION STANDARD TITLE: ADMINISTRATIVE NOTE DATE OF NOTE: FEB 19, 2024@10:46:11 ENTRY DATE: FEB 19, 2024@10:46:12 AUTHOR: МАРИНА HOPSON COSIGNER: URGENCY: STATUS: COMPLETED CCC: SCHEDULING ADMINISTRATION Has ADDENDA Patient Demographics Patient Name: GUSTAVO ARAMBULA Patient Primary Phone: [phone] Patient Primary [address]: [address] [place] [address] Patient : 1940 Patient Age: 83 Call Back Number: [phone] Caller/Recipient Relation to Patient: Other If Other Describe Relation to Patient: SON Caller Name: GUSTAVO Administrative Administrative Note Reason: Other Administrative Note Comments: PT SON CIARA REQUESTING A RETURN CALL TO DISCUSS MEDICATION PATCHES. 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 /reginaldo/ МАРИНА ESTEVEZ 1 [facility] AMSA Signed: 02/19/2024 10:46 Receipt Acknowledged By: 02/19/2024 11:07 /reginaldo/ MARCUS DOZIER LPN LPN 02/19/2024 11:43 /es/ KAPIL SUAREZ RN-BC REGISTERED NURSE for ZACHARY ABBOTT 02/19/2024 ADDENDUM STATUS: COMPLETED Adding Pain Baggage Handling Supervisor to secure messages. /reginaldo/ MARCUS DOZIER LPN LPN Signed: 02/19/2024 11:07 Receipt Acknowledged By: * AWAITING SIGNATURE * JOSE NORTON 02/19/2024 ADDENDUM STATUS: COMPLETED Called 's son, Gustavo, and advised that patches have been renewed and that they are being processed for mail delivery. Gustavo requested to pickup at pharmacy window due to [place] is out of patches. Author advised will forward request to pharmacy staff to assist. Gustavo verbalized understanding of information provided by author. /reginaldo/ KAPIL SUAREZ RN-BC REGISTERED NURSE Signed: 02/19/2024 11:51 02/19/2024 ADDENDUM STATUS: COMPLETED Message rec'd on [facility] regarding the above issue. As the matter appears to be resolved, no further action taken. /es/ GLENN PRESTON PHYSICAL THERAPIST Signed: 02/19/2024 12:54 МАРИНА HOPSON [facility]
--- OUTSIDE RECORDS SUMMARY | 2024-08-16 09:27 | XMS_ITS | Encounter Summary ---
Author Name [facility] [place] [facility] [place] Address [address] [place] [address] Care Team Providers Care Service Girl Name Role Phone TRACY VILLANUEVA Primary Care [...] PHI MEDEX BRONZ E December 19, 2013 [id number] GUSTAVO ARAMBULA SR PATIENT [employer] LIFE [employer] CASUALTY MEDICARE SUPPLEMEN PHI MEDIC ARE SUPPL EMENT Jul 21, 2007 NONE [id number] Edgar ARAMBULA PATIENT [place] SUPPLEMEN PHI MEDEX BRONZ E December 19, 2013 [id number] [phone] GUSTAVO ARAMBULA SR PATIENT [place] MEDICARE SUPPLEMEN PHI MEDEX BRONZ E December 19, 2013 [id number] Edgar ARAMBULA PATIENT MEDICARE (WNR) MEDICARE () PART A Oct 19, 2004 PART A [id number] [phone] [id number] Edgar ARAMBULAN PATIENT MEDICARE (WNR) MEDICARE () PART B Oct 19, 2004 PART B [id number] Edgar ARAMBULA [place] PATIENT MEDICARE ([place]) MEDICARE () PART A Oct 19, 2004 PART A [id number] Edgar ARAMBULAN PATIENT MEDICARE (WNR) MEDICARE () PART B Oct 19, 2004 PART B [id number] [phone] [id number] Edgar ARAMBULAN PATIENT MEDICARE (WNR) MEDICARE () PART A Oct 19, 2004 PART A [id number] Edagr ARAMBULA [place] PATIENT MEDICARE ([place]) MEDICARE () PART B Oct 19, 2004 PART B [id number] Edgar ARAMBULAN PATIENT MEDICARE (WNR) MEDICARE () PART A Oct 19, 2004 PART A [id number] [phone] Edgar ARAMBULA PATIENT MEDICARE (WNR) MEDICARE () PART B Oct 19, 2004 PART B [id number] Edgar ARAMBULAN PATIENT MEDICARE (WNR) MEDICARE () PART A Oct 19, 2004 PART A [id number] [phone] Edgar ARAMBULAN PATIENT MEDICARE (WNR) MEDICARE () PART B Oct 19, 2004 PART B [id number] [phone] Edgar ARAMBULAN PATIENT Selected Encounter This section includes the information on record at [place] for the Encounter. Date/Time Encounter Type Encounter Description Reason Pro vider Source Feb 13, 2024 11:51 AM Outpatient Encounter PRIMARY CARE/MEDICINE IHE Encounter [...] 20 appointments. The data comes from all [place] treatment facilities. Appointment Date/Time Appointment Type Appointme nt Facility Name Feb 15, 2024 09:00 AM AMBULATORY - [facility]IATRY [facility] [place] [facility] Feb 15, 2024 09:45 AM AMBULATORY - NONE [facility] [place] [facility] Mar 07, 2024 09:00 AM AMBULATORY - PS[facility]CHIATRY [facility] [place] [facility] Mar 08, 2024 08:30 AM AMBULATORY - NONE [facility] [place] [facility] Mar 11, 2024 09:00 AM AM[facility]ULATORY - MEDICINE [facility] Apr 04, 2024 11:00 AM AMBULATORY - PSYCHIATRY [facility] [place] [facility] Apr 08, 2024 09:30 AM AM[facility]ULATORY [facility] MEDICINE [facility] [place] [facility] Apr 10, 2024 10:45 AM AMBULATORY - MEDICINE [facility] [place] [facility] Apr 26, 2024 11:00 AM AMBULATORY [facility] MEDICINE [facility] [place] [facility] Apr 30, 2024 08:30 AM AMBULATORY - PS[facility]CHIATRY [facility] [place] [facility] May 01, 2024 11:00 AM AMBULATORY - NONE [facility] [place] [facility] May 14, 2024 11:30 AM AM[facility]ULATORY - MEDICINE [facility] May 31, 2024 11:00 AM AMBULATORY - REHAB MEDICIN E [facility] [place] [facility] May 31, 2024 12:00 PM AMBULATORY - MEDICINE [facility] [place] [facility] Jun 10, 2024 10:00 AM AMBULATORY - MEDICINE [facility] Jun 11, 2024 09:30 AM AMBULATORY - PSYCHIATRY [facility] [place] [facility] Jun 13, 2024 10:00 AM AMBULATORY - MEDICINE [facility] [place] [facility] Jun 19, 2024 11:00 AM AMBULATORY - NONE [facility] [place] [facility] Jun 21, 2024 09:00 AM AMBULATORY [facility] MEDICINE [facility] [place] [facility] Jun 21, 2024 09:15 AM AMBULATORY - MEDICINE [facility] [place] [facility] Social History: Smoking Status (Most current) and Tobacco Use (All prior to encounter date) This section includes the most current, and the historical, smoking and tobacco- related health factors from the [place] facility where the Encounter took place. Current Smoking Status This section includes the most current smoking, or tobacco-related health factor, from the [place] facility where the Encounter took place. Date/Time Current Smoking Status Comment Facil ity December 25, 2023 09:05 AM VA-TOBACCO NEVER USED [place] [facility] [place] [facility] Tobacco Use History This section includes a history of the smoking, or tobacco-related health factors, that were collected on or before the date of the Encounter. The data comes from the [place] facility where the Encounter took place. Date/Time Smoking Status/Tobac co Use Comment Facility Dec 13, 2022 03:00 PM VA-TOBACCO DOESNT USE WI 30 MIN WAKEUP [facility] [place] [facility] Dec 13, 2022 03:00 PM VA-TOBACCO USE 30 YEARS OR MORE [facility] [place] [facility] Dec 13, 2022 03:00 PM VA-TOBACCO USE ADVICE [facility] [place] [facility] Dec 13, 2022 03:00 PM VA-TOBACCO USE AGRONOMY INTERNSHIP NO [facility] [place] [facility] Dec 13, 2022 03:00 PM VA-TOBACCO USE MED NO [facility] [place] [facility] Dec 13, 2022 03:00 PM VA-TOBACCO USER EVERY DAY [facility] [place] [facility] Nov 17, 2021 10:00 AM VA-TOBACCO USE 30 YEARS OR MORE [facility] [place] [facility] Nov 17, 2021 10:00 AM VA-TOBACCO USE ADVICE [facility] [place] [facility] Nov 17, 2021 10:00 AM VA-TOBACCO USE AGRONOMY INTERNSHIP NO [facility] [place] [facility] Nov 17, 2021 10:00 AM VA-TOBACCO USE MED NO [facility] [place] [facility] Nov 17, 2021 10:00 AM VA-TOBACCO USE WI 30 MIN OF WAKEUP [place] [facility] [place] [facility] Nov 17, 2021 10:00 AM VA-TOBACCO USER EVERY DAY [facility] Oct 14, 2013 12:55 PM V1-PT NOT INTERESTED IN QUIT TOBACCO USE [facility] [place] [facility] May 07, 2013 05:04 PM CURRENT SMOKER trying to stop [facility] [place] [facility] May 07, 2013 05:04 PM V1-PT DECLINES REF TO TOBACCO [facility]ESS [facility] May 07, 2013 05:04 PM V1-PT DECLINES TOBACCO CESSATION MEDS [facility] May 07, 2013 05:04 PM V1-PT READY TO QUIT TOBACCO USE [facility] Dec 03, 2012 08:23 AM V1-PT DECLINES REF TO TOBACCO CESS PRGM [facility] [place] [facility] Dec 03, 2012 08:23 AM V1-PT DECLINES TOBACCO CESSATION MEDS [facility] Dec 03, 2012 08:23 AM V1-PT THINKING ABOUT QUIT TOBACCO USE [facility] Jun 05, 2012 08:45 AM CURRENT SMOKER 1/2ppd [facility] Jun 05, 2012 08:45 AM V1-PT DECLINES REF TO TOBACCO CESS PRGM [facility] Jun 05, 2012 08:45 AM V1-PT THINKING ABOUT QUIT TOBACCO USE [facility] Jun 05, 2012 08:45 AM V1-TOBACCO CESS MEDS NOT PRESCRIBED Vet wants to talk to his provider-He is nervous about taking meds to quit- but he is interested in quitting [facility] Nov 25, 2011 09:14 AM V1-PT DECLINES REF TO TOBACCO CESS [facility] Nov 25, 2011 09:14 AM V1-PT DECLINES TOBACCO CESSATION MEDS [facility] Nov 25, 2011 09:14 AM V1-PT THINKING ABOUT QUIT TOBACCO USE [facility] May 06, 2011 01:02 PM CURRENT SMOKER [facility] [place] [facility] May 06, 2011 01:02 PM V1-PT DECLINES TOBACCO CESSATION MEDS [facility] [place] [facility] May 06, 2011 01:02 PM V1-PT NOT INTERESTED IN QUIT TOBACCO USE [facility] [place] [facility] Sep 24, 2010 08:51 AM V1-PT DECLINES TOBACCO CESSATION MEDS [facility] [place] [facility] Sep 24, 2010 08:51 AM V1-PT THINKING ABOUT QUIT TOBACCO USE [facility] [place] [facility] Mar 22, 2010 07:58 AM CURRENT SMOKER 1/2 ppd [facility] [place] [facility] Feb 25, 2009 12:05 PM QUIT TOBACCO USE IN PAST YEAR [facility] [place] [facility] Aug 26, 2008 09:28 AM CURRENT SMOKER 1/2 ppd [facility] [place] [facility] Aug 26, 2008 09:28 AM V1-PT DECLINES REF TO TOBACCO CESS PRGM [facility] [place] [facility] Aug 26, 2008 09:28 AM V1-PT READY TO QUIT TOBACCO USE [facility] [place] [facility] Dec 19, 2007 10:08 AM V1-PT DECLINES REF TO TOBACCO CESS PRGM [facility] [place] [facility] Dec 19, 2007 10:08 AM V1-PT DECLINES TOBACCO CESSATION MEDS [facility] [place] [facility] Dec 19, 2007 10:08 AM V1-PT THINKING ABOUT QUIT TOBACCO USE [facility] [place] [facility] Sep 11, 2007 11:10 AM CURRENT SMOKER [facility] [place] [facility] Sep 11, 2007 11:10 AM V1-PT DECLINES REF TO TOBACCO CESS PRGM [facility] [place] [facility] Sep 11, 2007 11:10 AM V1-PT DECLINES TOBACCO CESSATION MEDS [facility] [place] [facility] Sep 11, 2007 11:10 AM V1-PT THINKING ABOUT QUIT TOBACCO USE [facility] [place] [facility] Feb 13, 2007 01:46 PM V1-PT DECLINES REF TO TOBACCO CESS PR[facility] [place] [facility] Feb 13, 2007 01:46 PM V1-PT DECLINES TOBACCO CESSATION MEDS [facility] [place] [facility] Feb 13, 2007 01:46 PM V1-PT [facility] ABOUT [facility] Oct 02, 2006 08:28 AM QUIT TOBACCO USE IN PAST YEAR 3 months ago [facility] Aug 19, 2005 08:33 AM QUIT TOBACCO USE IN PAST YEAR nonsmoker [facility] Sep 21, 2004 09:54 AM CURRENT SMOKER [facility] Sep 07, 2004 08:07 AM [facility]MOKER [facility] Sep 15, 2003 11:21 AM CURRENT SMOKER smokes one pk day [facility] Jul 23, 2003 01:57 PM CURRENT SMOKER [facility] Advance Directives: All historical and current Section Date Range: From patient's date of to the date document was created. This section includes ALL of a patient's completed or amended [place] Advance and Rescinded Directives. The entries below indicate that a directive exists for the patient, but an actual copy is not included with this document. The data comes from all [place] facilities. Date Advance Directives Provider Source Apr 10, 2023 ADVANCE DIRECTIVE CARLOSESSIE STUBBS [facility] Apr 19, 2007 ADVANCE DIRECTIVE SHIRA JOHNSONADRIJason CASH [facility] Radiology Reports: +/- [...] the Encounter. The data comes from all [place] treatment facilities. 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 1019 images were received by the [place] National Teleradiology Program (NTP) for interpretation. RADIATION [...] as above. READING PHYSICIAN: Ck Jean M.D. -[id number] 02/20/2024 12:57 PDT [facility] National Teleradiology Program [phone] (For Medical Practitioner Use Only) Attention Patients / Veterans: If you have questions or concerns about these test results, please contact your ordering provider or primary care team. Primary Diagnostic Code: SIGNIFICANT ABNORMALITY, ATTN NEEDED Primary Interpreting Staff: RADIOLOGY,OUTSIDE SERVICE, Staff Physician / RADIOLOGY,OUTSIDE SERVICE [facility] Encounter Notes: All associated encounter notes This section contains the clinical notes associated to the Encounter. Date/Time Encounter Note(s) Provider Source Feb 13, 2024 11:51 AM PREVENTIVE MEDICIN E NURSING NOTE: LOCAL TITLE: CLINICAL REMINDERS/NURSING STANDARD TITLE: PREVENTIVE MEDICINE NURSING NOTE DATE OF NOTE: FEB 13, 2024@11:51 ENTRY DATE: FEB 13, 2024@11:51:42 AUTHOR: CRISTIANE DOZIER EXP COSIGNER: URGENCY: STATUS: COMPLETED No reminders due at this visit. /reginaldo/ MARCUS DOZIER LPN LPN Signed: 02/13/2024 11:52 MARCUS DOZIER [facility]
--- OUTSIDE RECORDS SUMMARY | 2024-08-16 09:27 | XMS_ITS | Encounter Summary ---
Author Name [facility] [facility] [place] Address [address] [place] [address] Care Team Providers Care Chemical Instrumentation Officer Name Role Phone TRACY VILLANUEVA Primary Care [...] PHI MEDEX BRONZ E December 19, 2013 [id number] GUSTAVO ARAMBULA SR PATIENT [employer] MEDICARE SUPPLEMEN PHI MEDIC ARE SUPPL EMENT Jul 21, 2007 NONE [id number] Edgar ARAMBULA [place]IENT [place] MED[place] SUPPLEMEN PHI MEDEX BRONZ E December 19, 2013 [id number] [phone] GUSTAVO ARAMBULA SR PATIENT [place] OF [place] ([place]) MEDICARE SUPPLEMEN PHI MEDEX BRONZ E December 19, 2013 [id number] Edgar ARAMBULA [place] PATIENT MEDICARE (WNR) MEDICARE (M) PART A Oct 19, 2004 PART A [id number] Edgar ARAMBULA [place] PAT[place] MEDICARE (WNR) MEDICARE (M) PART B Oct 19, 2004 PART B [id number] [phone] Edgar ARAMBULA [place] PATIENT MEDICARE (WNR) MEDICARE (M) PART A Oct 19, 2004 PART A [id number] Edgar ARAMBULA [place] PATIENT MEDICARE ([place]) MEDICARE (M) PART B Oct 19, 2004 PART B [id number] Edgar ARMABULA [place] PATIENT MEDICARE (WNR) MEDICARE (M) PART B Oct 19, 2004 PART B [id number] Edgar ARAMBULA [place] PAT[place] MEDICARE (WNR) MEDICARE () PART A Oct 19, 2004 PART A [id number] [phone] Edgar ARAMBULA [place] PATIENT MEDICARE ([place]) MEDICARE () PART A Oct 19, 2004 PART A [id number] Edgar ARAMBULA [place] PAT[place] MEDICARE ([place]) MEDICARE () PART B Oct 19, 2004 PART B [id number] FILEMONEEdgar [place] PATIENT MEDICARE ([place]) MEDICARE () PART A Oct 19, 2004 PART A [id number] Edgar ARAMBULA [place] PATIENT MEDICARE ([place]) MEDICARE (M) PART B Oct 19, 2004 PART B [id number] Edgar ARAMBULAN PATIENT Selected Encounter This section includes the information on record at [place] for the Encounter. Date/Time Encounter Type Encounter Description Reason Provider Source Feb 15, 2024 09:00 AM OFFICE O/P EST MOD 30 [facility] - IND ICD-10-CM F33.9 Major depressive disorder, recurrent, unspecified JOSEY COLINDRES Encounter Template Text not used by [place] Assessments - Encounter Diagnoses This section includes the primary and secondary diagnoses documented for the Encounter. Date/Time Primary/Secondary Diagnosis Diagnosis Name Provider Source Feb 16, 2024 10:08 PM PRIMARY Major depressive disorder, recurrent, unspecified JOSEY COLINDRES [facility] [place] [facility] Feb 16, 2024 10:08 PM SECONDARY Tobacco use JOSEY COLINDRES [place] [facility] Plan of Treatment: Future Appointments (+ 6 months) and Future Tests (+/- 45 days) The Plan of Treatment section includes future care activities for the patient from all [place] treatmentfacilities. This section includes future appointments and future orders which are active, pending or scheduled. Future Appointments This section includes appointments that were scheduled to occur 6 months from the date of the Encounter, up to a maximum of 20 appointments. The data comes from all [place] treatment facilities. Appointment Date/Time Appointment Type Appointme nt Facility Name Mar 07, 2024 09:00 AM AMBULATORY - PSYCHIATRY [facility] [place] [facility] Mar 08, 2024 08:30 AM AMBULATORY - NONE [facility] [place] [facility] Mar 11, 2024 09:00 AM AMBULATORY - MEDICINE [facility] Apr 04, 2024 11:00 AM AMBULATORY - PSYCHIATRY [facility] [place] [facility] Apr 08, 2024 09:30 AM AMBULATORY - MEDICINE [facility] [place] [facility] Apr 10, 2024 10:45 AM AMBULATORY - MEDICINE [facility] [place] [facility] Apr 26, 2024 11:00 AM AMBULATORY - MEDICINE [facility] [place] [facility] Apr 30, 2024 08:30 AM AMBULATORY - PSYCHIATRY [facility] [place] [facility] May 01, 2024 11:00 AM AMBULATORY - NONE [facility] [place] [facility] May 14, 2024 11:30 AM AMBULATORY - MEDICINE [facility] May 31, 2024 11:00 AM AMBULATORY - REHAB MEDICIN E [facility] [place] [facility] May 31, 2024 12:00 PM AMBULATORY - MEDICINE [facility] [place] [facility] Jun 10, 2024 10:00 AM AMBULATORY - MEDICINE [facility] Jun 11, 2024 09:30 AM AMBULATORY - PSYCHIATRY [facility] [place] [facility] Jun 13, 2024 10:00 AM AMBULATORY - MEDICINE [facility] [place] [facility] Jun 19, 2024 11:00 AM AMBULATORY - NONE [facility] [place] [facility] Jun 21, 2024 09:00 AM AMBULATORY - MEDICINE [facility] [place] [facility] Jun 21, 2024 09:15 AM AMBULATORY - MEDICINE [facility] [place] [facility] Jun 21, 2024 09:30 AM AMBULATORY - MEDICINE [facility] [place] [facility] Jun 26, 2024 08:00 AM AMBULATORY - MEDICINE [facility] [place] [facility] Social History: Smoking Status (Most current) and Tobacco Use (All prior to encounter date) This section includes the most current, and the historical, smoking and tobacco- related health factors from the [place] facility where the Encounter took place. Current Smoking Status This section includes the most current smoking, or tobacco-related health factor, from the [place] facility where the Encounter took place. Date/Time Current Smoking Status Comment Facil it December 25, 2023 09:05 AM VA-TOBACCO NEVER USED [facility] Tobacco Use History This section includes a history of the smoking, or tobacco-related health factors, that were collected on or before the date of the Encounter. The data comes from the [place] facility where the Encounter took place. Date/Time Smoking Status/Tobac co Use Comment Facility Dec 13, 2022 03:00 PM VA-TOBACCO DOESNT USE WI 30 MIN WAKEUP [facility] [place] [facility] Dec 13, 2022 03:00 PM VA-TOBACCO USE 30 YEARS OR MORE [facility] [place] [facility] Dec 13, 2022 03:00 PM VA-TOBACCO USE ADVICE [facility] [place] [facility] Dec 13, 2022 03:00 PM VA-TOBACCO USE PHYSICIAN INTENSIVIST NO [facility] [place] [facility] Dec 13, 2022 03:00 PM VA-TOBACCO USE MED NO [facility] [place] [facility] Dec 13, 2022 03:00 PM VA-TOBACCO USER EVERY DAY [facility] [place] [facility] Nov 17, 2021 10:00 AM VA-TOBACCO USE 30 YEARS OR MORE [facility] Nov 17, 2021 10:00 AM VA-TOBACCO USE ADVICE [facility] Nov 17, 2021 10:00 AM VA-TOBACCO USE PHYSICIAN INTENSIVIST NO [facility] Nov 17, 2021 10:00 AM VA-TOBACCO USE MED NO [facility] Nov 17, 2021 10:00 AM VA-TOBACCO USE WI 30 MIN OF WAKEUP [facility] Nov 17, 2021 10:00 AM VA-TOBACCO USER EVERY DAY [facility] Oct 14, 2013 12:55 PM V1-PT NOT INTERESTED IN QUIT TOBACCO USE [facility] May 07, 2013 05:04 PM CURRENT SMOKER trying to stop [facility] May 07, 2013 05:04 PM V1-PT DECLINES REF TO TOBACCO CESS PRGM [facility] May 07, 2013 05:04 PM V1-PT DECLINES TOBACCO CESSATION MEDS [facility] May 07, 2013 05:04 PM V1-PT READY TO QUIT TOBACCO USE [facility] Dec 03, 2012 08:23 AM V1-PT DECLINES REF TO TOBACCO CESS PRGM [facility] Dec 03, 2012 08:23 AM V1-PT DECLINES TOBACCO [facility]ESSATION MEDS [facility] Dec 03, 2012 08:23 AM V1-PT THINKING ABOUT QUIT TOBACCO USE [facility] Jun 05, 2012 08:45 AM CURRENT SMOKER 1/2ppd [facility] Jun 05, 2012 08:45 AM V1-PT DECLINES REF TO TOBACCO CESS PRGM [facility] Jun 05, 2012 08:45 AM V1-PT THINKING ABOUT QUIT TOBACCO USE [facility] Jun 05, 2012 08:45 AM V1-TOBACCO CESS MEDS NOT PRESCRIBED Vet wants to talk to his provider-He is nervous about taking meds to quit- but he is interested in quitting [facility] [place] [facility] Nov 25, 2011 09:14 AM V1-PT DECLINES REF TO TOBACCO CESS PRGM [facility] [place] [facility] Nov 25, 2011 09:14 AM V1-PT DECLINES TOBACCO CESSATION MEDS [facility] Nov 25, 2011 09:14 AM V1-PT THINKING ABOUT QUIT TOBACCO USE [facility] [place] [facility] May 06, 2011 01:02 PM CURRENT SMOKER [facility] [place] [facility] May 06, 2011 01:02 PM V1-PT DECLINES TOBACCO CESSATION MEDS [facility] May 06, 2011 01:02 PM V1-PT NOT INTERESTED IN QUIT TOBACCO USE [facility] Sep 24, 2010 08:51 AM V1-PT DECLINES TOBACCO CESSATION MEDS [facility] Sep 24, 2010 08:51 AM V1-PT THINKING ABOUT QUIT TOBACCO USE [facility] [place] [facility] Mar 22, 2010 07:58 AM CURRENT SMOKER 1/2 ppd [facility] [place] [facility] Feb 25, 2009 12:05 PM QUIT TOBACCO USE IN PAST YEAR [facility] Aug 26, 2008 09:28 AM CURRENT SMOKER 1/2 ppd [facility] Aug 26, 2008 09:28 AM V1-PT DECLINES REF TO TOBACCO CESS PR[facility] [place] [facility] Aug 26, 2008 09:28 AM V1-PT READY TO QUIT TOBACCO USE [facility] [place] [facility] Dec 19, 2007 10:08 AM V1-PT DECLINES REF TO TOBACCO CESS PRGM [facility] [place] [facility] Dec 19, 2007 10:08 AM V1-PT DECLINES TOBACCO CESSATION MEDS [facility] Dec 19, 2007 10:08 AM V1-PT THINKING ABOUT QUIT TOBACCO USE [facility] [place] [facility] Sep 11, 2007 11:10 AM CURRENT SMOKER [facility] Sep 11, 2007 11:10 AM V1-PT DECLINES REF TO TOBACCO CESS [facility] Sep 11, 2007 11:10 AM V1-PT DECLINES TOBACCO CESSATION MEDS [facility] Sep 11, 2007 11:10 AM V1-PT THINKING ABOUT QUIT TOBACCO USE [facility] Feb 13, 2007 01:46 PM V1-PT DECLINES REF TO TOBACCO CESS PRGM [facility] Feb 13, 2007 01:46 PM V1-PT DECLINES TOBACCO CESSATION MEDS [facility] Feb 13, 2007 01:46 PM V1-PT THINKING ABOUT QUIT TOBACCO USE [facility] Oct 02, 2006 08:28 AM QUIT TOBACCO USE IN PAST YEAR 3 months ago [facility] Aug 19, 2005 08:33 AM QUIT TOBACCO USE IN PAST YEAR nonsmoker [facility] Sep 21, 2004 09:54 AM CURRENT SMOKER [facility] Sep 07, 2004 08:07 AM CURRENT SMOKER [facility] Sep 15, 2003 11:21 AM CURRENT SMOKER smokes one pk day [facility] Jul 23, 2003 01:57 PM CURRENT SMOKER [facility] Advance Directives: All historical and current Section Date Range: From patient's date of to the date document was created. This section includes ALL of a patient's completed or amended [place] Advance and Rescinded Directives. The entries below indicate that a directive exists for the patient, but an actual copy is not included with this document. The data comes from all [place] facilities. Date Advance Directives Provider Source Apr 10, 2023 ADVANCE DIRECTIVE ESSIE STARK [facility] Apr 19, 2007 ADVANCE DIRECTIVE VICTORIA [facility] Radiology Reports: +/- 30 days of [...] the Encounter. The data comes from all [place] treatment facilities. Date/Time Radiology Report Provider Source Feb 15, 2024 09:[address] THORAX W/O CONT: GUSTAVO ARAMBULA -1940 M Exm Date: FEB 15, 2024@09:56 Req Phys: TRACY VILLANUEVA Loc: CWM/SO/PACT 7 (Req'g Loc) Img Loc: NHM/CT Service: Unknown [place] [facility] , (Case [id number] COMPLETE) CT THORAX W/O CONT (CT Detailed) CPT:10974 Reason for Study: smoker x 65 years Clinical History: Report Status: Verified Date Reported: FEB 20, 2024 Date Verified: FEB 20, 2024 Commercial Kitchen Service Technician E-Sig: Report: CT THORAX W/O CONT HISTORY: smoker x 65 years COMPARISON: April 19, 2006 TECHNIQUE: Helical CT of the chest, with multiplanar reformats including maximum intensity projection (MIP) reconstructions, was performed at the local [place] facility. 1019 images were received by the [place] National Teleradiology Program (NTP) for interpretation. RADIATION [...] as above. READING PHYSICIAN: Ck Jean M.D. -[phone] 02/20/2024 12:57 PDT [facility] National Teleradiology Program [phone] (For Medical Practitioner Use Only) Attention Patients / Veterans: If you have questions or concerns about these test results, please contact your ordering provider or primary care team. Primary Diagnostic Code: SIGNIFICANT ABNORMALITY, ATTN NEEDED Primary Interpreting Staff: RADIOLOGY,OUTSIDE SERVICE, Staff Physician / RADIOLOGY,OUTSIDE SERVICE [place] [facility] Encounter Notes: All associated encounter notes This section contains the clinical notes associated to the Encounter. Date/Time Encounter Note(s) Provider Source Feb 15, 2024 09:13 AM PSYCHIATRY NOTE: LOCAL TITLE: PSYCHIATRY NOTE STANDARD TITLE: PSYCHIATRY NOTE DATE OF NOTE: FEB 15, 2024@09:13 ENTRY DATE: FEB 15, 2024@09:13:52 AUTHOR: LANA COLINDRES COSIGNER: URGENCY: STATUS: COMPLETED PSYCHIATRY FOLLOW UP VISIT FILEMONRichyGUSTAVO CATHERINE SR is a 83yo MARITAL STATUS - WHITE MALE with a history of [employer] FROM December TO Oct INTERVAL HISTORY Met together with kathy's son. Had an ED visit with a bad panic attack. Bupropion was stopped and hydroxyzine was added. Has been very nauseated which is progressive in the last 5-6 months. Has lost significant weight. Also stopped drinking ETOH. Bupropion was stopped due to a belief of the provider that it was exacerbating anxiety (seems unlikely given no increase in anxiety after if it was started 1+ years ago) PCP started escitalopram 10mg but vet hasn't taken it yet. Energy has been lower in the past 2 weeks. Has some strange thoughts coming to mind. He has trouble describing these. Maybe with some subtle AH. This has been happening for ?months and seems more prominent. He denies feeling foggy or confused. CURRENT MEDICATIONS Active Outpatient Medications (including Supplies): AMLODIPINE BESYLATE 10MG TAB TAKE ONE TABLET BY MOUTH ONCE ACTIVE DAILY FOR BLOOD PRESSURE/HEART, DO NOT TAKE WITH GRAPEFRUIT JUICE APIXABAN 5MG TAB TAKE ONE TABLET BY MOUTH EVERY 12 HOURS ACTIVE FOR PREVENTION OF BLOOD CLOTS ASPIRIN 81MG EC TAB TAKE ONE TABLET BY MOUTH ONCE DAILY TO ACTIVE PREVENT STROKE/HEART ATTACK ATORVASTATIN CALCIUM 40MG TAB TAKE ONE-HALF TABLET BY ACTIVE MOUTH ONCE DAILY FOR CHOLESTEROL BUPRENORPHINE 15MCG/HR PATCH APPLY 1 PATCH TO SKIN EVERY 5 ACTIVE DAYS (REMOVE PATCH BEFORE APPLYING A NEW PATCH) DEPEND UNDERWEAR,MAXIMUM,MEN SM/MED USE 1 BRIEF ACTIVE DIRECTED TWICE DAILY ESCITALOPRAM OXALATE 20MG TAB TAKE ONE-HALF TABLET BY HOLD MOUTH ONCE DAILY FOR MOOD/DEPRESSION HYDROCHLOROTHIAZIDE 25MG TAB TAKE ONE-HALF TABLET BY MOUTH ACTIVE ONCE DAILY FOR HIGH BLOOD PRESSURE HYDROXYZINE PAMOATE 25MG CAP TAKE ONE CAPSULE BY MOUTH ACTIVE EVERY 6 HOURS NEEDED FOR ANXIETY MELATONIN 5MG CAP/TAB TAKE ONE CAPSULE/TABLET BY MOUTH AT ACTIVE BEDTIME FOR INSOMNIA MIRTAZAPINE 30MG TAB TAKE ONE-HALF TABLET BY MOUTH AT ACTIVE BEDTIME FOR DEPRESSION/MOOD NUTRITION SUPL ENSURE PLUS/CONNIE LIQUID DRINK 1 CAN BY PENDING MOUTH TWICE DAILY PANTOPRAZOLE NA 40MG EC TAB TAKE ONE TABLET BY MOUTH EVERY ACTIVE MORNING 30 MINUTES BEFORE BREAKFAST SENNOSIDES 8.6MG TAB TAKE ONE TABLET BY MOUTH TWICE DAILY ACTIVE NEEDED 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) USE CUTTER DIRECTED BY ACTIVE PROVIDER TO SPLIT TABLETS TRAZODONE HCL 100MG TAB TAKE ONE-HALF TABLET BY MOUTH AT ACTIVE BEDTIME INSOMNIA TRIAMCINOLONE ACETONIDE 0.1% CREAM APPLY A THIN LAYER HOLD TOPICALLY EVERY 5 DAYS SUPPLEMENTS: ALLERGIES: GEMFIBROZIL, LISINOPRIL MEDICAL HISTORY Active Problem HERMILO - Generalized anxiety disorder 02/14/2024 TRACY VILLANUEVA Male urinary stress incontinence N3 02/13/2024 TRACY VILLANUEVA Chronic pain G89.4 11/06/2023 JOSE NORTON Chronic anaemia D64.9 09/25/2023 TRACY VILLANUEVA Diabetes mellitus type 2 E11.9 02/13/2024 TRACY VILLANUEVA Long-term current use of anticoagul 02/10/2023 HAY CORONA Communication authorization R69. 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 02/09/2023 AHMED,MOHAMMED JAWED Abnormal imaging R93.421 02/09/2023 NORMAN,MOHAMMED JAWED Aortic valve stenosis I35.0 09/18/2022 DANIELE CHILDS Aneurysm of ascending aorta I71.21 09/18/2022 DANIELE CHILDS Osteopenia M85.80 08/15/2022 DANIELE CHILDS Sleep apnea G47.30 09/03/2022 DANIELE CHILDS Admits alcohol use F10.90 08/08/2022 GALDINO KIRBY Insomnia G47.09 03/22/2022 LANA COLINDRES Chronic obstructive lung disease J4 11/17/2021 CAITLIN PENA History of peripheral vascular dise 11/17/2021 CAITLIN PENA Jc's esophagus K22.70 02/14/2024 TRACY VILLANUEVA Disorder of lumbar disc (SNOMED CT 09/25/2023 TRACY VILLANUEVA Depression (SNOMED CT [id number]) F33 12/10/2021 TRAVIS GOMES Dry Eye Syndromes * (ICD-9-CM 375.1 03/17/2009 NAHED JARQUIN OD Late effect of fracture of skull an 12/03/2008 JOVANY NAYLOR OA - Osteoarthritis of hip M16.9 12/25/2023 TRACY VILLANUEVA Prostate, 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., Ons 04/22/2008 JOVANY NAYLOR Cataract, Cortical (Senile) 366.15 05/04/2006 NAHED JARQUIN OD Open Angle Glaucoma Suspect 365.01 05/04/2006 NAHED JARQUIN OD Mixed hyperlipidaemia E78.2 12/25/2023 TRACY VILLANUEVA Benign essential hypertension I10. 12/25/2023 TRACY VILLANUEVA POLYPS, COLON/LG BOWEL (BENIGN MAEGAN 10/31/2013 JOVANY NAYLOR Tobacco use (SNOMED CT [id number]) Z 12/25/2023 BERNADINELANA Richy BMI: 25.4 SUBSTANCE USE: Alcohol: None MJ: None Tobacco: need to review Caffeine: 1 cup daily Opiates: denies Cocaine: denies Other: denies PREVIOUS PSYCHIATRIC MEDICATION TRIALS AND RESPONSE -Chantix--bad reaction. trazodone--on many years, we have tried to reduce without much success. Helpful for sleep, denies orthostasis. mirtazapine 15mg--has been helpful for sleep and appetite melatonin bupropion SR 200mgqam--has seemed helpful for mood MENTAL STATUS EXAM: Awake, alert, cooperative, well groomed, using cane, a little unsteady. Appears in less pain. No abnormal movements. Speech nml r/r/r/v/p Mood doing ok Affect: constricted Thought Process Linear, logical Thought Content: No obsessions, no delusions, more hopeful, no true hallucinations SI/HI: Denies today a/ox4 I/J good COGNITION MOCA: Parrott making: intact Cube: Intact Clock 3/3 Naming intact Registration: had some difficulty with registration but registered 5 words with multiple trials Recall: 3/5, 5/5 with cues and multiple choice Digit span 1/2 Serial 7's 2/3 Language and abstraction intact Oriented to exact date and place Score: 27/30 Cognitively doing well in terms of executive function, planning, organization. Working memory and attention seems to struggle some, but is able to recall with prompts. No signs of Alzheimer's. 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 We tried switching from trazodone to doxepin to minimize falls risk, but pt had side effects and resumed trazodone. Now denying dizziness. 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 DIAGNOSIS: I. Major Depressive Disorder II. INSOMNIA DIFFERENTIAL Depression due to medical causes- recent cardiac surgery, pain, DM2 Sleep Apnea, Smoking Chronic insomnia Risk of falls on trazodone and mirtazapine. PLAN -would discontinue Lexapro rx (not yet taken) due to high dose and high risk of worsening nausea and other side effects). -increase mirtazapine to 22.5mg for anxiety, sleep, mood. -add 0.25mg lorazepam BID PRN for anxiety and nausea. We discussed risks at length with both vet and son--in particular the risk of falls and respiratory depression, especially in combination with opiate. Kathy has been walking with a can. He uses his CPAP regularly for sleep apnea. Vet and son both expressed understanding and were in favor of trying to alleviate severe anxiety and facilitate food intake. Hopefully we can taper in 2-3 weeks after mirtazapine increase is more helpful. -cont to work on smoking cessation -cont trazodone to 50mg at bedtime--try to taper off -cont pregabalin 25mg TID--will defer to Pain Management regarding adjustment. - Could consider restarting bupropion if depression worsens. - Cont melatonin 5 mg at HS for sleep - [facility] Sleep medicine - Cardiology - Hematology F/U - Pain management follow up REFILLS/COVERAGE okay for refills FOLLOW UP IN CLINIC 2mos TIME SPENT FACE TO FACE:35m TOTAL TIME INCLUDING CHART REVIEW AND DOCUMENTATION:40m SUICDE RISK ASSESSMENT: RISK ASSESSMENT: Suicide/Homicide Risk Assessment: Chronic Risk Factors: [] history of suicide attempt [] Chronic mental illness [} Substance use disorder [x] Chronic Pain [x] Gender [x] Age [x] Race [] Transgender [x} Chronic Medical Problems Acute Risk Factors: []suicidal/homicidal ideation [ ]suicidal/homicidal intent [ ]suicidal/homicidal plan [ ]recent suicidal/homicidal behavior [ ]recent psychiatric admission [ ]hopelessness, lack of purpose or meaning [] Feeling Trapped [] Social withdrawal [] Impulsive, risk taking behaviors []High anxiety/akathisia [x]Insomnia [] Rage/anger [x] Depression, Carol, Psychosis or Mixed State [ ]Current substance use problems [ ]minimal support [ ]Recent Personal Loss [ ]recent deployment [ ]mental status abnormalities [ ]dementia [ ]access to lethal means [] Homelessness [] Unemployment [ ]relationship problems or pending divorce [ ](other): Protective Factors: [x]absence of suicidal/homicidal ideation, intent, plan, or behaviors [x]absence of substance use problems [x]strong support system [x ]responsibility for family, children, or pets [x ]future oriented [ x]help-seeking. [x ]positive therapeutic relationship [x ]medication compliant [ ](other): Based on risk and protective factors, the patient is considered to be at an elevated chronic risk due to pain and depressive sx, passive SI, but acute risk seems low given protective factors. Will work to try to reduce pain and improve mood. Advised to contact me via call center or secure messaging for any questions or concerns between visits. Pt was reminded to call [phone] option 1 if in crisis, or to call 911 or go to nearest ED if risk of acute harm to self or others. The discussion with patient about treatments including medications involved shared decision making. The patient was educated about the rationale and plan for the psychiatric medications. Medication instructions were reviewed with the patient. Alternatives to treatment were discussed with the patient. The side effect profile of the psychiatric medications was reviewed with the patient. This also included discussion of potential drug interactions associated with psychiatric medication. The patient discussed/verbalized back the understanding of the medication, side effects, and the plan/instructions, and the patient asked good questions. The patient demonstrated reasonable understanding of the medication side effects and the above-mentioned issues. The benefits of psychiatric medications outweigh risks for this patient. The patient consents to medication treatment. I encouraged the to call or message me or to come to open access if the does not like the effect of psychiatric medication or if has side effects. Medication Reconciliation: Outpatient: Has the patient been taking medications as documented in the EMLR? YES: The patient has been taking medications as documented in the EMLR. Essential Medication List for Review used to complete this medication reconciliation. INCLUDED IN THIS LIST: Alphabetical list of active outpatient prescriptions dispensed from this [place] (local) and dispensed from another VA or DoD facility (remote) as well as inpatient orders (local, pending and active), local clinic medications, locally documented non-VA medications, and local prescriptions that have or been discontinued in the past 90 days. - All changes in medications, including all non-VA/Herbal/OTC medications were entered into CPRS. - If there were any medications the patient should no longer take, they were discontinued. - The patient/caregiver was instructed to update this list, discard old lists, and take this list to the next appointment, whether with a VA or non-VA provider. Problem List was reviewed and updated. /reginaldo/ LANA COLINDRES PSYCHIATRIST Signed: 02/16/2024 22:08 LANA COLINDRES [facility]
--- OUTSIDE RECORDS SUMMARY | 2024-08-16 09:27 | XMS_ITS | Encounter Summary ---
Author Name [facility] Address [address] [place] [address] Care Team Providers Care President Ceo & Founder Name Role Phone TRACY VILLANUEVA Primary Care [...] PHI MEDEX BRONZ E December 19, 2013 [id number] [phone] GUSTAVO ARAMBULA SR PATIENT [employer] MEDICARE SUPPLEMEN PHI MEDIC ARE SUPPL EMENT Jul 21, 2007 NONE [id number] Edgar ARAMBULA PATIENT BCBS PR MEDICARE SUPPLEMEN PHI MEDEX BRONZ E December 19, 2013 [id number] [phone] GUSTAVO ARAMBULA SR PATIENT [place] MEDICARE SUPPLEMEN PHI MEDEX BRONZ E December 19, 2013 [id number] Edgar ARAMBULA PATIENT MEDICARE (WNR) MEDICARE () PART A Oct 19, 2004 PART A [id number] Edgar ARAMBULA PATIENT MEDICARE (WNR) MEDICARE (M) PART B Oct 19, 2004 PART B [id number] [phone] Edgar ARAMBULA [place] PATIENT MEDICARE (WNR) MEDICARE () PART A Oct 19, 2004 PART A [id number] Edgar ARAMBULAN PATIENT MEDICARE (WNR) MEDICARE () PART B Oct 19, 2004 PART B [id number] Edgar ARAMBULAN PATIENT MEDICARE (WNR) MEDICARE () PART A Oct 19, 2004 PART A [id number] [phone] Edgar ARAMBULAN PATIENT MEDICARE (WNR) MEDICARE () PART B Oct 19, 2004 PART B [id number] Edgar ARAMBULAN PATIENT MEDICARE (WNR) MEDICARE () PART A Oct 19, 2004 PART A [id number] Edgar ARAMBULA PATIENT MEDICARE (WNR) MEDICARE () PART B Oct 19, 2004 PART B [id number] [phone] Edgar ARAMBULAN PATIENT MEDICARE (WNR) MEDICARE () PART A Oct 19, 2004 PART A [id number] Edgar ARAMBULAN PATIENT MEDICARE (WNR) MEDICARE () PART B Oct 19, 2004 PART B [id number] [phone] Edgar ARAMBULA PATIENT Selected Encounter This section includes the information on record at NH for the Encounter. Date/Time Encounter Type Encounter Description Reason Pro vider Source Feb 05, 2024 10:51 AM Outpatient Encounter PAIN CLINIC IHE Encounter Template Text not used by [...] 20 appointments. The data comes from all NH treatment facilities. Appointment Date/Time Appointment Type Appointme nt Facility Name Feb 13, 2024 11:30 AM AMBULATORY - MEDICINE [facility] Feb 15, 2024 09:00 AM AMBUL[facility] [place] [facility] Feb 15, 2024 09:45 AM AMBULATORY - NONE [facility] [place] [facility] Mar 07, 2024 09:00 AM AMBULATORY - PS[facility]IATRY [facility] [place] [facility] Mar 08, 2024 08:30 AM AMBULATORY - NONE [facility] [place] [facility] Mar 11, 2024 09:00 AM [facility]ULATORY - MEDICINE [facility] Apr 04, 2024 11:00 AM AMBULATORY - PS[facility]ATRY [facility] [place] [facility] Apr 08, 2024 09:30 AM AMBULATORY - MEDICINE [facility] [place] [facility] Apr 10, 2024 10:45 AM AMBULATORY - MEDICINE [facility] [place] [facility] Apr 26, 2024 11:00 AM AMBULATORY - MEDICINE [facility] [place] [facility] Apr 30, 2024 08:30 AM AMBULATORY - PS[facility]IATRY [facility] [place] [facility] May 01, 2024 11:00 AM AMBULATORY - NONE [facility] [place] [facility] May 14, 2024 11:30 AM AMBULATORY - MEDICINE [facility] May 31, 2024 11:00 AM AMBULATORY - REHAB MEDICIN E [facility] [place] [facility] May 31, 2024 12:00 PM AMBULATORY - MEDICINE [facility] [place] [facility] Jun 10, 2024 10:00 AM [facility] Jun 11, 2024 09:30 AM AMBULATORY - PS[facility]CHIATRY [facility] [place] [facility] Jun 13, 2024 10:00 AM AMBULATORY - MEDICINE [facility] [place] [facility] Jun 19, 2024 11:00 AM AMBULATORY - NONE [facility] [place] [facility] Jun 21, 2024 09:00 AM AMBULATORY - MEDICINE [facility] [place] [facility] Social History: Smoking Status (Most current) and Tobacco Use (All prior to encounter date) This section includes the most current, and the historical, smoking and tobacco- related health factors from the NH facility where the Encounter took place. Current Smoking Status This section includes the most current smoking, or tobacco-related health factor, from the NH facility where the Encounter took place. Date/Time Current Smoking Status Comment [facility] December 25, 2023 09:05 AM VA-TOBACCO NEVER USED [facility] Tobacco Use History This section includes a history of the smoking, or tobacco-related health factors, that were collected on or before the date of the Encounter. The data comes from the NH facility where the Encounter took place. Date/Time Smoking Status/Tobac co Use Comment Facility Dec 13, 2022 03:00 PM VA-TOBACCO DOESNT USE WI 30 MIN WAKEUP [facility] [place] [facility] Dec 13, 2022 03:00 PM VA-TOBACCO USE 30 YEARS OR MORE [facility] [place] [facility] Dec 13, 2022 03:00 PM VA-TOBACCO USE ADVICE [facility] [place] [facility] Dec 13, 2022 03:00 PM VA-TOBACCO USE JOB ANALYST NO [facility] [place] [facility] Dec 13, 2022 03:00 PM VA-TOBACCO USE MED NO [facility] [place] [facility] Dec 13, 2022 03:00 PM VA-TOBACCO USER EVERY DAY [facility] [place] [facility] Nov 17, 2021 10:00 AM VA-TOBACCO USE 30 YEARS OR MORE [facility] [place] [facility] Nov 17, 2021 10:00 AM VA-TOBACCO USE ADVICE [facility] [place] [facility] Nov 17, 2021 10:00 AM VA-TOBACCO USE JOB ANALYST NO [facility] [place] [facility] Nov 17, 2021 10:00 AM VA-TOBACCO USE MED NO [facility] [place] [facility] Nov 17, 2021 10:00 AM VA-TOBACCO USE WI 30 MIN OF WAKEUP [facility] [place] [facility] Nov 17, 2021 10:00 AM VA-TOBACCO USER EVERY DAY [facility] Oct 14, 2013 12:55 PM V1-PT NOT INTERESTED IN QUIT TOBACCO USE [facility] May 07, 2013 05:04 PM CURRENT SMOKER trying to stop [facility] May 07, 2013 05:04 PM V1-PT DECLINES REF TO TOBACCO CESS PRGM [facility] May 07, 2013 05:04 PM V1-PT DECLINES TOBACCO CESSATION MEDS [facility] May 07, 2013 05:04 PM V1-PT READY TO QUIT TOBACCO USE [facility] Dec 03, 2012 08:23 AM V1-PT DECLINES REF TO TOBACCO CESS PRGM [facility] Dec 03, 2012 08:23 AM V1-PT DECLINES TOBACCO CESSATION MEDS [facility] Dec 03, 2012 08:23 AM V1-PT THINKING ABOUT QUIT TOBACCO USE [facility] Jun 05, 2012 08:45 AM CURRENT SMOKER 1/2ppd [facility] Jun 05, 2012 08:45 AM V1-PT DECLINES REF TO TOBACCO CESS PRGM [facility] Jun 05, 2012 08:45 AM V1-PT THINKING ABOUT QUIT TOBACCO USE [facility] Jun 05, 2012 08:45 AM V1-TOBACCO CESS MEDS NOT PRESCRIBED Vet wants to talk to his provider-He is nervous about taking meds to quit- but he is interested in quitting [facility] Nov 25, 2011 09:14 AM V1-PT DECLINES REF TO TOBACCO CESS PRGM [facility] Nov 25, 2011 09:14 AM V1-PT DECLINES TOBACCO CESSATION MEDS [facility] Nov 25, 2011 09:14 AM V1-PT THINKING ABOUT QUIT TOBACCO [facility] May 06, 2011 01:02 PM CURRENT SMOKER [facility] May 06, 2011 01:02 PM V1-PT DECLINES TOBACCO CESSATION MEDS [facility] [place] [facility] May 06, 2011 01:02 PM V1-PT NOT INTERESTED IN QUIT TOBACCO USE [facility] [place] [facility] Sep 24, 2010 08:51 AM V1-PT DECLINES TOBACCO CESSATION MEDS [facility] [place] [facility] Sep 24, 2010 08:51 AM V1-PT THINKING ABOUT QUIT TOBACCO USE [facility] [place] [facility] Mar 22, 2010 07:58 AM CURRENT SMOKER 1/2 ppd [facility] [place] [facility] Feb 25, 2009 12:05 PM QUIT TOBACCO USE IN PAST YEAR [facility] [place] [facility] Aug 26, 2008 09:28 AM CURRENT SMOKER 1/2 ppd [facility] [place] [facility] Aug 26, 2008 09:28 AM V1-PT DECLINES REF TO TOBACCO CESS PRGM [facility] [place] [facility] Aug 26, 2008 09:28 AM V1-PT READY TO QUIT TOBACCO USE [facility] [place] [facility] Dec 19, 2007 10:08 AM V1-PT DECLINES REF TO TOBACCO CESS PRGM [facility] [place] [facility] Dec 19, 2007 10:08 AM V1-PT DECLINES TOBACCO CESSATION MEDS [facility] [place] [facility] Dec 19, 2007 10:08 AM V1-PT THINKING ABOUT QUIT TOBACCO USE [facility] [place] [facility] Sep 11, 2007 11:10 AM CURRENT SMOKER [facility] [place] [facility] Sep 11, 2007 11:10 AM V1-PT DECLINES REF TO TOBACCO CESS PRGM [facility] [place] [facility] Sep 11, 2007 11:10 AM V1-PT DECLINES TOBACCO CESSATION MEDS [facility] [place] [facility] Sep 11, 2007 11:10 AM V1-PT THINKING ABOUT QUIT TOBACCO USE [facility] [place] [facility] Feb 13, 2007 01:46 PM V1-PT DECLINES REF TO TOBACCO CESS PRGM [facility] [place] [facility] Feb 13, 2007 01:46 PM V1-PT DECLINES TOBACCO CESSATION MEDS [facility] [place] [facility] Feb 13, 2007 01:46 PM V1-PT THINKING ABOUT QUIT TOBACCO USE [facility] Oct 02, 2006 08:28 AM QUIT TOBACCO USE IN PAST YEAR 3 months ago [facility] Aug 19, 2005 08:33 AM QUIT TOBACCO USE IN PAST YEAR nonsmoker [facility] Sep 21, 2004 09:54 AM CURRENT SMOKER [facility] Sep 07, 2004 08:07 AM CURRENT SMOKER [facility] Sep 15, 2003 11:21 AM CURRENT SMOKER smokes one pk day [facility] Jul 23, 2003 01:57 PM CURRENT SMOKER [facility] Advance Directives: All historical and current Section Date Range: From patient's date of to the date document was created. This section includes ALL of a patient's completed or amended NH Advance and Rescinded Directives. The entries below indicate that a directive exists for the patient, but an actual copy is not included with this document. The data comes from all NH facilities. Date Advance Directives Provider Source Apr 10, 2023 ADVANCE DIRECTIVE ESSIE STARK [facility] Apr 19, 2007 ADVANCE DIRECTIVE VICTORIA JOHNSON [facility] Radiology Reports: +/- 30 [...] the Encounter. The data comes from all NH treatment facilities. Date/Time Radiology Report Provider Source Feb 15, 2024 09:[address] THORAX W/O CONT: GUSTAVO ARAMBULA 1940 M Exm Date: FEB 15, 2024@09:56 Req Phys: TRACY VILLANUEVA Loc: CWM/SO/PACT 7 (Req'g Loc) Img Loc: NHM/CT Service: Unknown [facility] , (Case [id number] COMPLETE) CT THORAX W/O CONT (CT Detailed) CPT:46382 Reason for Study: smoker x 65 years Clinical History: Report Status: Verified Date Reported: FEB 20, 2024 Date Verified: FEB 20, 2024 Sourcing Analyst E-Sig: Report: CT THORAX W/O CONT HISTORY: smoker x 65 years COMPARISON: April 19, 2006 TECHNIQUE: Helical CT of the chest, with multiplanar reformats including maximum intensity projection (MIP) reconstructions, was performed at the local NH facility. 1019 images were received by the [place] National Teleradiology Program (NTP) for interpretation. RADIATION [...] as above. READING PHYSICIAN: Ck Jean M.D. -[id number] 02/20/2024 12:57 PDT [facility] National Teleradiology Program [phone] (For Medical Practitioner Use Only) Attention Patients / Veterans: If you have questions or concerns about these test results, please contact your ordering provider or primary care team. Primary Diagnostic Code: SIGNIFICANT ABNORMALITY, ATTN NEEDED Primary Interpreting Staff: RADIOLOGY,OUTSIDE SERVICE, Staff Physician / RADIOLOGY,OUTSIDE SERVICE [facility] Encounter Notes: All associated encounter notes This section contains the clinical notes associated to the Encounter. Date/Time Encounter Note(s) Provider Source Feb 05, 2024 10:52 AM ADMINISTRATIVE NOTE: LOCAL TITLE: ADMINISTRATIVE RECALL NOTE STANDARD TITLE: ADMINISTRATIVE NOTE DATE OF NOTE: FEB 05, 2024@10:52 ENTRY DATE: FEB 05, 2024@10:52:03 AUTHOR: NAVEEN GOLDSMITH EXP COSIGNER: URGENCY: STATUS: COMPLETED RTC orders: Unable to contact patient: Attempts to contact: 1st attempt: Left voicemail 2nd attempt: Letter mailed Disposition on Feb 3rd attempt: 4th attempt: PID 04/08/2024 /es/ NAVEEN GOLDSMITH [employer] Signed: 02/05/2024 10:54 NAVEEN GOLDSMITH [facility] Feb 05, 2024 10:51 AM LETTERS: LOCAL TITLE: PATIENT LETTER (B) STANDARD TITLE: LETTERS DATE OF NOTE: FEB 05, 2024@10:51 ENTRY DATE: FEB 05, 2024@10:51:18 AUTHOR: NAVEEN GOLDSMITH EXP COSIGNER: URGENCY: STATUS: COMPLETED [facility] Toll Free Number [facility] scheduling can be reached at ext. [phone] [facility]- ext. [phone] [facility]- ext. [phone] [facility]- ext. [phone] FEB 05, 2024 [facility] [address] Dear GUSTAVO ARAMBULA SR Thank you for choosing the Department of [facility] ([place] [place] as your primary choice for health care. As a partner in your health care, we are contacting you in writing since we have been unsuccessful in our attempts to reach you to date. We want to assure you we are doing everything possible to schedule Veterans for their VA medical care appointments. Our records indicate you are due for an appointment in PAIN CLINIC. If you would like to be seen, please contact [facility] at ext. [phone] to schedule an appointment. Thank you for your service to our nation, and we look forward to hearing from you soon. Sincerely, [facility] [address] [facility] [address] [place] [address] [place] [address] [facility] [address] [facility] [address] [place] [address] [place] [address] ext. [phone] [facility] [address] [address] [place] [address] ext. [phone] [facility] [address] [place] [address] ext. [phone] NAVEEN GOLDSMITH [facility]
--- OUTSIDE RECORDS SUMMARY | 2024-08-16 09:27 | XMS_ITS | Encounter Summary ---
Author Name [facility] [place] [facility] [place] [facility] [place] Address [address] [place] [address] Care Team Providers Care Assignment Desk Editor Name Role Phone TRACY VILLANUEVA Primary Care [...] PHI MEDEX BRONZ E December 19, 2013 [id number] GUSTAVO ARAMBULA SR PATIENT [employer] CASUAL[employer] MEDICARE SUPPLEMEN PHI MEDIC ARE SUPPL EMENT Jul 21, 2007 NONE [id number] Edgar ARAMBULA PATIENT [place] MED[place] SUPPLEMEN PHI MEDEX BRONZ E December 19, 2013 [id number] GUSTAVO ARAMBULA SR PATIENT [place] MEDICARE SUPPLEMEN PHI MEDEX BRONZ E December 19, 2013 [id number] Edgar ARAMBULA PATIENT MEDICARE (WNR) MEDICARE (M) PART A Oct 19, 2004 PART A [id number] Edgar ARAMBULAN PATIENT MEDICARE (WNR) MEDICARE (M) PART B Oct 19, 2004 PART B [id number] [phone] Edgar ARAMBULAN PATIENT MEDICARE (WNR) MEDICARE (M) PART A Oct 19, 2004 PART A [id number] Edgar ARAMBULAN PATIENT MEDICARE (WNR) MEDICARE (M) PART B Oct 19, 2004 PART B [id number] Edgar ARAMBULAN PATIENT MEDICARE (WNR) MEDICARE (M) PART A Oct 19, 2004 PART A [id number] [phone] Edgar ARAMBULAN PATIENT MEDICARE (WNR) MEDICARE () PART B Oct 19, 2004 PART B [id number] Edgar ARAMBULAN PATIENT MEDICARE (WNR) MEDICARE () PART A Oct 19, 2004 PART A [id number] Edgar ARAMBULA PATIENT MEDICARE (WNR) MEDICARE () PART B Oct 19, 2004 PART B [id number] [phone] Edgar ARAMBULAN PATIENT MEDICARE (WNR) MEDICARE () PART A Oct 19, 2004 PART A [id number] Edgar ARAMBULAN PATIENT MEDICARE (WNR) MEDICARE () PART B Oct 19, 2004 PART B [id number] [phone] Edgar ARAMBULA PATIENT Selected Encounter This section includes the information on record at [place] for the Encounter. Date/Time Encounter Type Encounter Description Reason Pro vider Source Feb 15, 2024 11:48 AM Outpatient Encounter ADMIN PAT ACTIVTIES (MASNONCT) IHE Encounter Template Text not used by [facility] Plan of Treatment: Future Appointments (+ 6 months) and Future Tests (+/- 45 days) The Plan of Treatment section includes future care activities for the [facility] [place] [facility] This section includes future appointments and future orders which are active, pending or scheduled. Future Appointments This section includes appointments that were scheduled to occur 6 months from the date of the Encounter, up to a maximum of 20 appointments. The data comes from all [place] treatment facilities. Appointment Date/Time Appointment Type Appointme nt Facility Name Mar 07, 2024 09:00 AM AMBULATORY [facility]AT[facility] [place] [facility] Mar 08, 2024 08:30 AM AMBULATORY - NONE [facility] [place] [facility] Mar 11, 2024 09:00 AM AM[facility]ULATORY - [facility]ICINE [facility] Apr 04, 2024 11:00 AM AMBULATORY - PS[facility]CHIATRY [facility] [place] [facility] Apr 08, 2024 09:30 AM AMBULATORY - MEDICINE [facility] [place] [facility] Apr 10, 2024 10:45 AM AMBULATORY - MEDICINE [facility] [place] [facility] Apr 26, 2024 11:00 AM AMBULATORY - MEDICINE [facility] [place] [facility] Apr 30, 2024 08:30 AM AMBULATORY - PSYCHIATRY [facility] [place] [facility] May 01, 2024 11:00 AM AMBULATORY - NONE [facility] [place] [facility] May 14, 2024 11:30 AM [facility]ATORY [facility] May 31, 2024 11:00 AM AMBULATORY - REHAB MEDICIN E [facility] [place] [facility] May 31, 2024 12:00 PM AMBULATORY - MEDICINE [facility] [place] [facility] Jun 10, 2024 10:00 AM AMBULATORY - MEDICINE [facility] Jun 11, 2024 09:30 AM AMBULATORY - PSYCHIATRY [facility] [place] [facility] Jun 13, 2024 10:00 AM AMBULATORY - MEDICINE [facility] [place] [facility] Jun 19, 2024 11:00 AM AMBULATORY - NONE [facility] [place] [facility] Jun 21, 2024 09:00 AM AMBULATORY - MEDICINE [facility] [place] [facility] Jun 21, 2024 09:15 AM AMBULATORY - MEDICINE [facility] [place] [facility] Jun 21, 2024 09:30 AM AMBULATORY [facility] MEDICINE [facility] [place] [facility] Jun 26, 2024 08:00 AM AMBULATORY [place]ICINE [place] [facility] [place] [facility] Social History: Smoking Status (Most current) and Tobacco Use (All prior to encounter date) This section includes the most current, and the historical, smoking and tobacco- related health factors from the [place] facility where the Encounter took place. Current Smoking Status This section includes the most current smoking, or tobacco-related health factor, from the [place] facility where the Encounter took place. Date/Time Current Smoking Status Comment Facil it December 25, 2023 09:05 AM VA-TOBACCO NEVER USED [place] [facility] Tobacco Use History This section includes a history of the smoking, or tobacco-related health factors, that were collected on or before the date of the Encounter. The data comes from the [place] facility where the Encounter took place. Date/Time Smoking Status/Tobac co Use Comment Facility Dec 13, 2022 03:00 PM VA-TOBACCO DOESNT USE WI 30 MIN WAKEUP [facility] [place] [facility] Dec 13, 2022 03:00 PM VA-TOBACCO USE 30 YEARS OR MORE [facility] [place] [facility] Dec 13, 2022 03:00 PM VA-TOBACCO USE ADVICE [facility] [place] [facility] Dec 13, 2022 03:00 PM VA-TOBACCO USE GLASS SCULLION NO [facility] [place] [facility] Dec 13, 2022 03:00 PM VA-TOBACCO USE MED NO [facility] [place] [facility] Dec 13, 2022 03:00 PM VA-TOBACCO USER EVERY DAY [facility] [place] [facility] Nov 17, 2021 10:00 AM VA-TOBACCO USE 30 YEARS OR MORE [facility] [place] [facility] Nov 17, 2021 10:00 AM VA-TOBACCO USE ADVICE [facility] [place] [facility] Nov 17, 2021 10:00 AM VA-TOBACCO USE GLASS SCULLION NO [facility] [place] [facility] Nov 17, 2021 10:00 AM VA-TOBACCO USE MED NO [facility] [place] [facility] Nov 17, 2021 10:00 AM VA-TOBACCO USE WI 30 MIN OF WAKEUP [facility] [place] [facility] Nov 17, 2021 10:00 AM VA-TOBACCO USER EVERY DAY [facility] Oct 14, 2013 12:55 PM V1-PT NOT INTERESTED IN QUIT TOBACCO USE [facility] [place] [facility] May 07, 2013 05:04 PM CURRENT SMOKER trying to stop [facility] [facility] May 07, 2013 05:04 PM V1-PT DECLINES REF TO TOBACCO CESS [facility] May 07, 2013 05:04 PM V1-PT DECLINES TOBACCO CESSATION MEDS [facility] May 07, 2013 05:04 PM V1-PT READY TO QUIT TOBACCO USE [facility] Dec 03, 2012 08:23 AM V1-PT DECLINES REF TO TOBACCO CESS PRGM [facility] [place] [facility] Dec 03, 2012 08:23 AM V1-PT DECLINES TOBACCO CESSATION MEDS [facility] Dec 03, 2012 08:23 AM V1-PT THINKING ABOUT QUIT TOBACCO USE [facility] [place] [facility] Jun 05, 2012 08:45 AM CURRENT SMOKER 1/2ppd [facility] [place] Jun 05, 2012 08:45 AM V1-PT DECLINES REF TO TOBACCO CESS PRGM [facility] [place] [facility] Jun 05, 2012 08:45 AM V1-PT THINKING ABOUT QUIT TOBACCO USE [facility] Jun 05, 2012 08:45 AM V1-TOBACCO CESS MEDS NOT PRESCRIBED Vet wants to talk to his provider-He is nervous about taking meds to quit- but he is interested in quitting [facility] Nov 25, 2011 09:14 AM V1-PT DECLINES REF TO TOBACCO CESS [facility] Nov 25, 2011 09:14 AM V1-PT DECLINES TOBACCO CESSATION MEDS [facility] Nov 25, 2011 09:14 AM V1-PT THINKING ABOUT QUIT TOBACCO USE [facility] May 06, 2011 01:02 PM CURRENT SMOKER [facility] [place] [facility] May 06, 2011 01:02 PM V1-PT DECLINES TOBACCO CESSATION MEDS [facility] [place] [facility] May 06, 2011 01:02 PM V1-PT NOT INTERESTED IN QUIT TOBACCO USE [facility] [place] [facility] Sep 24, 2010 08:51 AM V1-PT DECLINES TOBACCO CESSATION MEDS [facility] [place] [facility] Sep 24, 2010 08:51 AM V1-PT THINKING ABOUT QUIT TOBACCO USE [facility] [place] [facility] Mar 22, 2010 07:58 AM CURRENT SMOKER 1/2 ppd [facility] [place] [facility] Feb 25, 2009 12:05 PM QUIT TOBACCO USE IN PAST YEAR [facility] [place] [facility] Aug 26, 2008 09:28 AM CURRENT SMOKER 1/2 ppd [facility] Aug 26, 2008 09:28 AM V1-PT DECLINES REF TO TOBACCO CESS [facility] [place] [facility] Aug 26, 2008 09:28 AM V1-PT READY TO QUIT TOBACCO USE [facility] [place] [facility] Dec 19, 2007 10:08 AM V1-PT DECLINES REF TO TOBACCO CESS PR[facility] Dec 19, 2007 10:08 AM V1-PT DECLINES TOBACCO CESSATION MEDS [facility] Dec 19, 2007 10:08 AM V1-PT THINKING ABOUT QUIT TOBACCO USE [facility] [place] [place] [facility] Sep 11, 2007 11:10 AM CURRENT SMOKER [facility] [place] [facility] Sep 11, 2007 11:10 AM V1-PT DECLINES REF TO TOBACCO CESS PRGM [facility] [place] [facility] Sep 11, 2007 11:10 AM V1-PT DECLINES TOBACCO CESSATION MEDS [facility] [place] [facility] Sep 11, 2007 11:10 AM V1-PT THINKING ABOUT QUIT TOBACCO USE [facility] [place] [facility] Feb 13, 2007 01:46 PM V1-PT DECLINES REF TO TOBACCO CESS PRGM [facility] Feb 13, 2007 01:46 PM V1-PT DECLINES TOBACCO CESSATION MEDS [facility] Feb 13, 2007 01:46 PM V1-PT THINKING ABOUT QUIT [facility]AC[facility] Oct 02, 2006 08:28 AM QUIT TOBACCO USE IN PAST YEAR 3 months ago [facility] Aug 19, 2005 08:33 AM QUIT TOBACCO USE IN PAST YEAR nonsmoker [facility] Sep 21, 2004 09:54 AM CURRENT SMOKER [facility] Sep 07, 2004 08:07 AM CURRENT SMOKER [facility] Sep 15, 2003 11:21 AM CURRENT SMOKER smokes one pk day [facility] Jul 23, 2003 01:57 PM CURRENT SMOKER [facility] Advance Directives: All historical and current Section Date Range: From patient's date of to the date document was created. This section includes ALL of a patient's completed or amended [place] Advance and Rescinded Directives. The entries below indicate that a directive exists for the patient, but an actual copy is not included with this document. The data comes from all [place] facilities. Date Advance Directives Provider Source Apr 10, 2023 ADVANCE DIRECTIVE ESSIE STARK [facility] Apr 19, 2007 ADVANCE DIRECTIVE VICTORIA JOHNSON [facility] Radiology Reports: +/- 30 days of [...] the Encounter. The data comes from all [place] treatment facilities. Date/Time Radiology Report Provider Source Feb 15, 2024 09:[address] THORAX W/O CONT: GUSTAVO ARAMBULA CATHERINE -1940 M Exm Date: FEB 15, 2024@09:56 Req Phys: TRACY VILLANUEVA Pat Loc: CWM/SO/PACT 7 (Req'g Loc) Img Loc: NH[facility]/CT Service: Unknown [facility] , (Case [id number] COMPLETE) CT THORAX W/O CONT (CT Detailed) CPT:68230 Reason for Study: smoker x 65 years Clinical History: Report Status: Verified Date Reported: FEB 20, 2024 Date Verified: FEB 20, 2024 Net Application Architect E-Sig: Report: CT THORAX W/O CONT HISTORY: smoker x 65 years COMPARISON: April 19, 2006 TECHNIQUE: Helical CT of the chest, with multiplanar reformats including maximum intensity projection (MIP) reconstructions, was performed at the local [place] facility. 1019 images were received by the [place] National Teleradiology Program (NTP) for interpretation. RADIATION [...] as above. READING PHYSICIAN: Ck Jean M.D. -[phone] 02/20/2024 12:57 PDT [facility] National Teleradiology Program [phone] (For Medical Practitioner Use Only) Attention Patients / Veterans: If you have questions or concerns about these test results, please contact your ordering provider or primary care team. Primary Diagnostic Code: SIGNIFICANT ABNORMALITY, ATTN NEEDED Primary Interpreting Staff: RADIOLOGY,OUTSIDE SERVICE, Staff Physician / RADIOLOGY,OUTSIDE SERVICE [facility] Encounter Notes: All associated encounter notes This section contains the clinical notes associated to the Encounter. 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 BUT THE MEDICATION IS TOO SOON UNTIL 02-24 PLEASE REVIEW DAYS SUPPLY AND AMOUNT OF PATCHES WE THINK HE SHOULD BE GETTIN 6 PATCHES FOR 30 DAYS INSTEAD OF 5 PATHCES FOR 30 DAYS PLEASE REVIEW AND CHANGE IF APPROPRIATE Active Outpatient Medications (including Supplies): Active Outpatient Medications Status = 5) BUPRENORPHINE 15MCG/HR PATCH APPLY 1 PATCH TO SKIN ACTIVE (S) EVERY 5 DAYS (REMOVE PATCH BEFORE APPLYING A NEW PATCH) /reginaldo/ VINH BRIZUELA [employer] Signed: 02/15/2024 11:50 Receipt Acknowledged By: 02/17/2024 15:03 /reginaldo/ JOSE NORTON MD PHYSICIAN VNIH BRIZUELA [facility]
--- OUTSIDE RECORDS SUMMARY | 2024-08-16 09:27 | XMS_ITS | Encounter Summary ---
Author Name [facility] Organization [facility] [place] Address [address] [place] [address] Care Team Providers Care Assistant Press Operator Offset Name Role Phone TRACY VILLANUEVA Primary Care [...] PHI MEDEX BRONZ E December 19, 2013 [id number] GUSTAVO ARAMBULA SR PATIENT [employer] MEDICARE SUPPLEMEN PHI MEDIC ARE SUPPL EMENT Jul 21, 2007 NONE [id number] [phone] Edgar ARAMBULA PATIENT BCBS MD MEDICARE SUPPLEMEN PHI MEDEX BRONZ E December 19, 2013 [id number] GUSTAVO ARAMBULA SR PATIENT [place] MEDICARE SUPPLEMEN PHI MEDEX BRONZ E December 19, 2013 [id number] Edgar ARAMBULA PATIENT MEDICARE (WNR) MEDICARE () PART A Oct 19, 2004 PART A [id number] Edgar ARAMBULAN PATIENT MEDICARE (WNR) MEDICARE () PART B Oct 19, 2004 PART B [id number] Edgar ARAMBULA [place] PATIENT MEDICARE (WNR) MEDICARE () PART A Oct 19, 2004 PART A [id number] [phone] Edgar ARAMBULAN PATIENT MEDICARE (WNR) MEDICARE () PART B Oct 19, 2004 PART B [id number] Edgar ARAMBULAN PATIENT MEDICARE (WNR) MEDICARE () PART B Oct 19, 2004 PART B [id number] Edgar ARAMBULA [place] PATIENT MEDICARE (WNR) MEDICARE () PART A Oct 19, 2004 PART A [id number] Edgar ARAMBULAN PATIENT MEDICARE (WNR) MEDICARE () PART A Oct 19, 2004 PART A [id number] [phone] Edgar ARAMBULA PATIENT MEDICARE (WNR) MEDICARE () PART B Oct 19, 2004 PART B [id number] Edgar ARAMBULAN PATIENT MEDICARE (WNR) MEDICARE () PART A Oct 19, 2004 PART A [id number] [phone] Edgar ARAMBULAN PATIENT MEDICARE (WNR) MEDICARE () PART B Oct 19, 2004 PART B [id number] Edgar ARAMBULAN PATIENT Selected Encounter This section includes the information on record at [place] for the Encounter. Date/Time Encounter Type Encounter Description Reason Pro vider Source Feb 09, 2024 10:50 AM Outpatient Encounter PRIMARY CARE/MEDICINE IHE Encounter [...] 20 appointments. The data comes from all [place] treatment facilities. Appointment Date/Time Appointment Type Appointme nt Facility Name Feb 13, 2024 11:30 AM AMBULATORY - MEDICINE [facility] Feb 15, 2024 09:00 AM AMBULATORY [facility]IATRY [facility] [place] [facility] Feb 15, 2024 09:45 AM AMBULATORY - NONE [facility] [place] [facility] Mar 07, 2024 09:00 AM AMBULATORY - PS[facility]IAT[facility] [place] [facility] Mar 08, 2024 08:30 AM AMBULATORY - NONE [facility] [place] [facility] Mar 11, 2024 09:00 AM [facility]ORY [facility]ICINE [facility] Apr 04, 2024 11:00 AM AMBULATORY - PS[facility]IATRY [facility] [place] [facility] Apr 08, 2024 09:30 AM [facility]ORY [facility] [place] [facility] Apr 10, 2024 10:45 AM AM[facility]ULATORY [facility]IC[facility] [place] [facility] Apr 26, 2024 11:00 AM AM[facility]ULATORY [facility]IC[facility] [place] [facility] Apr 30, 2024 08:30 AM AMBULATORY - PS[facility]CHIATRY [facility] [place] [facility] May 01, 2024 11:00 AM AMBULATORY - NONE [facility] [place] [facility] May 14, 2024 11:30 AM [facility]ORY [facility]ICINE [facility] May 31, 2024 11:00 AM AMBULATORY - REHAB MEDICIN E [facility] [place] [facility] May 31, 2024 12:00 PM AMBULATORY [facility] MEDICINE [facility] [place] [facility] Jun 10, 2024 10:00 AM [facility]ATORY - [facility]ICINE [facility] Jun 11, 2024 09:30 AM AMBULATORY - PS[facility]CHIATRY [facility] [place] [facility] Jun 13, 2024 10:00 AM AMBULATORY [facility] MEDICINE [facility] [place] [facility] Jun 19, 2024 11:00 AM AMBULATORY - NONE [facility] [place] [facility] Jun 21, 2024 09:00 AM AMBULATORY - MEDICINE [place] [facility] [place] [facility] Social History: Smoking Status (Most current) and Tobacco Use (All prior to encounter date) This section includes the most current, and the historical, smoking and tobacco- related health factors from the [place] facility where the Encounter took place. Current Smoking Status This section includes the most current smoking, or tobacco-related health factor, from the [place] facility where the Encounter took place. Date/Time Current Smoking Status Comment Facil it December 25, 2023 09:05 AM VA-TOBACCO NEVER USED [facility] Tobacco Use History This section includes a history of the smoking, or tobacco-related health factors, that were collected on or before the date of the Encounter. The data comes from the [place] facility where the Encounter took place. 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 SERVICE MECHANIC NO [facility] [place] [facility] Dec 13, 2022 03:00 PM VA-TOBACCO USE MED NO [facility] [place] [facility] Dec 13, 2022 03:00 PM VA-TOBACCO USER EVERY DAY [facility] [place] [facility] Nov 17, 2021 10:00 AM VA-TOBACCO USE 30 YEARS OR MORE [facility] [place] [facility] Nov 17, 2021 10:00 AM VA-TOBACCO USE ADVICE [facility] [place] [facility] Nov 17, 2021 10:00 AM VA-TOBACCO USE VAULT SERVICE MECHANIC NO [facility] [place] [facility] Nov 17, 2021 10:00 AM VA-TOBACCO USE MED NO [facility] [place] [facility] Nov 17, 2021 10:00 AM VA-TOBACCO USE WI 30 MIN OF WAKEUP [facility] [place] [facility] Nov 17, 2021 10:00 AM VA-TOBACCO USER EVERY DAY [facility] Oct 14, 2013 12:55 PM V1-PT NOT INTERESTED IN QUIT TOBACCO USE [facility] May 07, 2013 05:04 PM CURRENT SMOKER trying to stop [facility] May 07, 2013 05:04 PM V1-PT DECLINES REF TO TOBACCO CESS [facility] May 07, 2013 05:04 PM V1-PT DECLINES TOBACCO CESSATION MEDS [facility] May 07, 2013 05:04 PM V1-PT READY TO QUIT TOBACCO USE [facility] Dec 03, 2012 08:23 AM V1-PT DECLINES REF TO TOBACCO CESS PRGM [facility] Dec 03, 2012 08:23 AM V1-PT DECLINES TOBACCO CESSATION MEDS [facility] Dec 03, 2012 08:23 AM V1-PT THINKING ABOUT QUIT TOBACCO USE [facility] Jun 05, 2012 08:45 AM CURRENT SMOKER 1/2ppd [facility] Jun 05, 2012 08:45 AM V1-PT DECLINES REF TO TOBACCO CESS PRGM [facility] Jun 05, 2012 08:45 AM V1-PT THINKING ABOUT QUIT TOBACCO USE [facility] Jun 05, 2012 08:45 AM V1-TOBACCO CESS MEDS NOT PRESCRIBED Vet wants to talk to his provider-He is nervous about taking meds to quit- but he is interested in quitting [facility] Nov 25, 2011 09:14 AM V1-PT DECLINES REF TO TOBACCO CESS [facility] Nov 25, 2011 09:14 AM V1-PT DECLINES TOBACCO CESSATION MEDS [facility] Nov 25, 2011 09:14 AM V1-PT THINKING ABOUT QUIT TOBACCO USE [facility] May 06, 2011 01:02 PM CURRENT SMOKER [facility] May 06, 2011 01:02 PM V1-PT DECLINES TOBACCO CESSATION MEDS [facility] [place] [facility] May 06, 2011 01:02 PM V1-PT NOT INTERESTED IN QUIT TOBACCO USE [facility] [place] [facility] Sep 24, 2010 08:51 AM V1-PT DECLINES TOBACCO CESSATION MEDS [facility] [place] [facility] Sep 24, 2010 08:51 AM V1-PT THINKING ABOUT QUIT TOBACCO USE [facility] [place] [facility] Mar 22, 2010 07:58 AM CURRENT SMOKER 1/2 ppd [facility] [place] [facility] Feb 25, 2009 12:05 PM QUIT TOBACCO USE IN PAST YEAR [facility] [place] [facility] Aug 26, 2008 09:28 AM CURRENT SMOKER 1/2 ppd [facility] [place] [facility] Aug 26, 2008 09:28 AM V1-PT DECLINES REF TO TOBACCO CESS PRGM [facility] [place] [facility] Aug 26, 2008 09:28 AM V1-PT READY TO QUIT TOBACCO USE [facility] [place] [facility] Dec 19, 2007 10:08 AM V1-PT DECLINES REF TO TOBACCO CESS PRGM [facility] [place] [facility] Dec 19, 2007 10:08 AM V1-PT DECLINES TOBACCO CESSATION MEDS [facility] [place] [facility] Dec 19, 2007 10:08 AM V1-PT THINKING ABOUT QUIT TOBACCO USE [facility] [place] [facility] Sep 11, 2007 11:10 AM CURRENT SMOKER [facility] [place] [facility] Sep 11, 2007 11:10 AM V1-PT DECLINES REF TO TOBACCO CESS PRGM [facility] [place] [facility] Sep 11, 2007 11:10 AM V1-PT DECLINES TOBACCO CESSATION MEDS [facility] [place] [facility] Sep 11, 2007 11:10 AM V1-PT THINKING ABOUT QUIT TOBACCO USE [facility] [place] [facility] Feb 13, 2007 01:46 PM V1-PT DECLINES REF TO TOBACCO CESS PRGM [facility] [place] [facility] Feb 13, 2007 01:46 PM V1-PT DECLINES TOBACCO CESSATION MEDS [facility] [place] [facility] Feb 13, 2007 01:46 PM V1-PT THINKING ABOUT QUIT [facility]ACCO [facility] Oct 02, 2006 08:28 AM QUIT TOBACCO USE IN PAST YEAR 3 months ago [facility] Aug 19, 2005 08:33 AM QUIT TOBACCO USE IN PAST YEAR nonsmoker [facility] Sep 21, 2004 09:54 AM CURRENT SMOKER [facility] Sep 07, 2004 08:07 AM CURRENT SMOKER [facility] Sep 15, 2003 11:21 AM CURRENT SMOKER smokes one pk day [facility] Jul 23, 2003 01:57 PM CURRENT SMOKER [facility] Advance Directives: All historical and current Section Date Range: From patient's date of to the date document was created. This section includes ALL of a patient's completed or amended [place] Advance and Rescinded Directives. The entries below indicate that a directive exists for the patient, but an actual copy is not included with this document. The data comes from all [place] facilities. Date Advance Directives Provider Source Apr 10, 2023 ADVANCE DIRECTIVE ESSIE STARK [facility] Apr 19, 2007 ADVANCE DIRECTIVE VICTORIA [...] the Encounter. The data comes from all [place] treatment facilities. Date/Time Radiology Report Provider Source Feb 15, 2024 09:[address] THORAX W/O CONT: RALFGUSTAVO CATHERINE -1940 M Exm Date: FEB 15, 2024@09:56 Req Phys: TRACY VILLANUEVA Pat Loc: CWM/SO/PACT 7 (Req'g Loc) Img Loc: NHM/CT [facility]: [facility] , (Case 341 COMPLETE) CT THORAX W/O CONT (CT Detailed) CPT:81545 Reason for Study: smoker x 65 years Clinical History: Report Status: Verified Date Reported: FEB 20, 2024 Date Verified: FEB 20, 2024 [employer] E-Sig: Report: CT THORAX W/O CONT HISTORY: smoker x 65 years COMPARISON: April 19, 2006 TECHNIQUE: Helical CT of the chest, with multiplanar reformats including maximum intensity projection (MIP) reconstructions, was performed at the local [place] facility. 1019 images were received by the [place] National Teleradiology Program (NTP) for interpretation. RADIATION [...] as above. READING PHYSICIAN: Ck Jean M.D. -[id number] 02/20/2024 12:57 PDT [facility] National Teleradiology Program [phone] (For Medical Practitioner Use Only) Attention Patients / Veterans: If you have questions or concerns about these test results, please contact your ordering provider or primary care team. Primary Diagnostic Code: SIGNIFICANT ABNORMALITY, ATTN NEEDED Primary Interpreting Staff: RADIOLOGY,OUTSIDE SERVICE, Staff Physician / RADIOLOGY,OUTSIDE SERVICE [facility] [place] [facility] Encounter Notes: All associated encounter notes This section contains the clinical notes associated to the Encounter. 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
--- OUTSIDE RECORDS SUMMARY | 2024-08-16 09:27 | XMS_ITS | Encounter Summary ---
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 Name Role Phone TARCY VILLANUEVA Primary Care Provider Unavailabl e Insurance [...] PHI MEDEX BRONZ E December 19, 2013 [id number] GUSTAVO GUZMAN SR PATIENT [employer] MEDICARE SUPPLEMEN PHI MEDIC ARE SUPPL EMENT Jul 21, 2007 NONE [id number] Edgar GUZMAN [place] PHI MEDEX BRONZ E December 19, 2013 [id number] [phone] GUSTAVO GUZMAN SR PATIENT [place] MEDICARE SUPPLEMEN PHI MEDEX BRONZ E December 19, 2013 [id number] FILEMONEEdgar [place] PATIENT MEDICARE (WNR) MEDICARE (M) PART A Oct 19, 2004 PART A [id number] Edgar GUZMAN [place] PATIENT MEDICARE ([place]) MEDICARE (M) PART B Oct 19, 2004 PART B [id number] Edgar GUZMAN [place] PATIENT MEDICARE ([place]) MEDICARE (M) PART A Oct 19, 2004 PART A [id number] Edgar GUZMAN [place] PATIENT MEDICARE ([place]) MEDICARE (M) PART B Oct 19, 2004 PART B [id number] Edgar GUZMAN [place] PATIENT MEDICARE ([place]) MEDICARE (M) PART A Oct 19, 2004 PART A [id number] Edgar GUZMAN [place] PATIENT MEDICARE ([place]NR) MEDICARE () PART B Oct 19, 2004 PART B [id number] [phone] Edgar GUZMAN [place] PATIENT MEDICARE ([place]NR) MEDICARE () PART A Oct 19, 2004 PART A [id number] [phone] Edgar GUZMAN [place] PATIENT MEDICARE ([place]) MEDICARE () PART B Oct 19, 2004 PART B [id number] [phone] FILEMONEEdgar [place] PATIENT MEDICARE ([place]NR) MEDICARE () PART A Oct 19, 2004 PART A [id number] Edgar GUZMAN [place] PATIENT MEDICARE ([place]NR) MEDICARE (M) PART B Oct 19, 2004 PART B [id number] [phone] Edgar GUZMANN PATIENT Selected Encounter This section includes the information on record at [place] for the Encounter. Date/Time Encounter Type Encounter Description Reason Provider Source Feb 05, 2024 10:00 AM OFFICE O/P EST HI 40 MIN PAIN CLINIC ICD-10-CM G89.4 Chronic pain syndrome ERROL,S ETH B IHE Encounter Template Text not used by [facility] Assessments - Encounter Diagnoses This section includes the primary and secondary diagnoses documented for the Encounter. Date/Time Primary/Secondary Diagnosis Diagnosis Name Provider Source Feb 05, 2024 10:44 AM PRIMARY Chronic pain syndrome DARBY SCHAFFERH B [facility] [place] [facility] Feb 05, 2024 10:44 AM SECONDARY Infarction of spleen YOLIESCHANABELL, JUAQUIN B [facility] [place] [facility] Feb 05, 2024 10:44 AM SECONDARY Major depressive disorder, recurrent, unspecified ANGUSFERSCHMID, JUAQUIN B [facility] [place] [facility] Feb 05, 2024 10:44 AM SECONDARY Sleep apnea, unspecified ANGUSFERSCHMID, JUAQUIN B [facility] [place] [facility] Feb 05, 2024 10:44 AM SECONDARY Type 2 diabetes mellitus without complications ERROL JUAQUIN B [place] [facility] [place] [facility] Plan of Treatment: Future Appointments (+ 6 months) and Future Tests (+/- 45 days) The Plan of Treatment section includes future care activities for the patient from all [place] [facility]. This section includes future appointments and future orders which are active, pending or scheduled. Future Appointments This section includes appointments that were scheduled to occur 6 months from the date of the Encounter, up to a maximum of 20 appointments. The data comes from all [place] treatment facilities. Appointment Date/Time Appointment Type Appointme nt Facility Name Feb 13, 2024 11:30 [facility] Feb 15, 2024 09:00 AM AMBULATORY - PSYCHIATRY [facility] [place] [facility] Feb 15, 2024 09:45 AM AMBULATORY - NONE [facility] [place] [facility] Mar 07, 2024 09:00 AM AMBULATORY - PSYCHIATRY [facility] [place] [facility] Mar 08, 2024 08:30 AM AMBULATORY - NONE [facility] [place] [facility] Mar 11, 2024 09:00 AM [facility] Apr 04, 2024 11:00 AM AMBULATORY - PSYCHIATRY [facility] [place] [facility] Apr 08, 2024 09:30 AM AMBULATORY - MEDICINE [facility] [place] [facility] Apr 10, 2024 10:45 AM AMBULATORY - MEDICINE [place] [facility] [place] [facility] Apr 26, 2024 11:00 AM AMBULATORY - MEDICINE [facility] [place] [facility] Apr 30, 2024 08:30 AM AMBULATORY - PSYCHIATRY [facility] [place] [facility] May 01, 2024 11:00 AM AMBULATORY - NONE [facility] [place] [facility] May 14, 2024 11:30 AM [facility]ORY - MEDICINE [place] [place] May 31, 2024 11:00 AM AMBULATORY - REHAB MEDICIN E [facility] [place] [facility] May 31, 2024 12:00 PM AMBULATORY - MEDICINE [facility] [place] [facility] Jun 10, 2024 10:00 AM AMBULATORY - MEDICINE [place] [place] Jun 11, 2024 09:30 AM AMBULATORY - PSYCHIATRY [facility] [place] [facility] Jun 13, 2024 10:00 AM AMBULATORY - MEDICINE [facility] [place] [facility] Jun 19, 2024 11:00 AM AMBULATORY - NONE [facility] [place] [facility] Jun 21, 2024 09:00 AM [facility] Social History: Smoking Status (Most current) and Tobacco Use (All prior to encounter date) This section includes the most current, and the historical, smoking and tobacco- related health factors from the [place] facility where the Encounter took place. Current Smoking Status This section includes the most current smoking, or tobacco-related health factor, from the [place] facility where the Encounter took place. Date/Time Current Smoking Status Comment Facil ity December 25, 2023 09:05 AM [facility] Tobacco Use History This section includes a history of the smoking, or tobacco-related health factors, that were collected on or before the date of the Encounter. The data comes from the [place] facility where the Encounter took place. 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 [facility] [place] [facility] Dec 13, 2022 03:00 PM VA-TOBACCO USE MED NO [facility] [place] [facility] Dec 13, 2022 03:00 PM VA-TOBACCO USER EVERY DAY [facility] [place] [facility] Nov 17, 2021 10:00 AM VA-TOBACCO USE 30 YEARS OR MORE [facility] [place] [facility] Nov 17, 2021 10:00 AM VA-TOBACCO USE ADVICE [facility] [place] [facility] Nov 17, 2021 10:00 AM 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 USE 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 [facility] [place] [facility] Nov 17, 2021 10:00 AM VA-TOBACCO USE MED NO [facility] [place] [facility] Nov 17, 2021 10:00 AM VA-TOBACCO USE [place] 30 MIN OF WAKEUP [facility] [place] [facility] Nov 17, 2021 10:00 AM VA-TOBACCO USER EVERY DAY [facility] [place] [facility] Oct 14, 2013 12:55 PM V1-PT NOT INTERESTED IN QUIT TOBACCO USE [facility] [place] [facility] May 07, 2013 05:04 PM CURRENT SMOKER trying to stop [facility] [place] [facility] May 07, 2013 05:04 PM V1-PT DECLINES REF TO TOBACCO CESS PRGM [place] [facility] [place] [facility] May 07, 2013 05:04 PM V1-PT DECLINES TOBACCO CESSATION MEDS [facility] [place] [facility] May 07, 2013 05:04 PM V1-PT READY TO QUIT TOBACCO USE [facility] [place] [facility] Dec 03, 2012 08:23 AM V1-PT DECLINES REF TO TOBACCO CESS PRGM [facility] [place] [facility] Dec 03, 2012 08:23 AM V1-PT DECLINES TOBACCO CESSATION MEDS [facility] [place] [facility] Dec 03, 2012 08:23 AM V1-PT THINKING ABOUT QUIT TOBACCO USE [facility] [place] [facility] Jun 05, 2012 08:45 AM CURRENT SMOKER 1/2ppd [place] [facility] [place] [facility] Jun 05, 2012 08:45 AM V1-PT DECLINES REF TO TOBACCO CESS PRGM [facility] [place] [facility] Jun 05, 2012 08:45 AM V1-PT THINKING ABOUT QUIT TOBACCO USE [facility] [place] [facility] Jun 05, 2012 08:45 AM V1-TOBACCO CESS MEDS NOT PRESCRIBED Vet wants to talk to his provider-He is nervous about taking meds to quit- but he is interested in quitting [facility] [place] [facility] Nov 25, 2011 09:14 AM V1-PT DECLINES REF TO TOBACCO CESS PRGM [facility] Nov 25, 2011 09:14 AM V1-PT DECLINES TOBACCO CESSATION MEDS [facility] [place] [facility] Nov 25, 2011 09:14 AM V1-PT THINKING ABOUT QUIT [facility]BACCO [facility] [place] [facility] May 06, 2011 01:02 PM CURRENT SMOKER [facility] [place] [facility] May 06, 2011 01:02 PM V1-PT DECLINES TOBACCO CESSATION MEDS [facility] May 06, 2011 01:02 PM V1-PT NOT INTERESTED IN QUIT TOBACCO USE [facility] Sep 24, 2010 08:51 AM V1-PT DECLINES TOBACCO CESSATION MEDS [facility] Sep 24, 2010 08:51 AM V1-PT THINKING ABOUT QUIT TOBACCO USE [facility] [place] [facility] Mar 22, 2010 07:58 AM CURRENT SMOKER 1/2 ppd [facility] [place] [facility] Feb 25, 2009 12:05 PM QUIT TOBACCO USE IN PAST YEAR [facility] [place] [facility] Aug 26, 2008 09:28 AM CURRENT SMOKER 1/2 ppd [facility] [place] [place] [facility] Aug 26, 2008 09:28 AM V1-PT DECLINES REF TO TOBACCO CESS PRGM [place] [facility] [place] [facility] Aug 26, 2008 09:28 AM V1-PT READY TO QUIT TOBACCO USE [place] [facility] [facility] Dec 19, 2007 10:08 AM V1-PT DECLINES REF TO TOBACCO CESS PRGM [facility] [place] [facility] Dec 19, 2007 10:08 AM V1-PT DECLINES TOBACCO CESSATION MEDS [facility] Dec 19, 2007 10:08 AM V1-PT THINKING ABOUT QUIT TOBACCO USE [facility] Sep 11, 2007 11:10 AM [facility] Sep 11, 2007 11:10 AM V1-PT DECLINES REF TO TOBACCO CESS PRGM [facility] Sep 11, 2007 11:10 AM V1-PT DECLINES TOBACCO CESSATION MEDS [facility] Sep 11, 2007 11:10 AM V1-PT THINKING ABOUT QUIT TOBACCO [facility] Feb 13, 2007 01:46 PM V1-PT DECLINES REF TO TOBACCO CESS PRGM [facility] Feb 13, 2007 01:46 PM V1-PT DECLINES TOBACCO CESSATION MEDS [facility] Feb 13, 2007 01:46 PM V1-PT THINKING ABOUT QUIT TOBACCO USE [facility] Oct 02, 2006 08:28 AM QUIT TOBACCO USE IN PAST YEAR 3 months ago [facility] Aug 19, 2005 08:33 AM QUIT TOBACCO USE IN PAST YEAR nonsmoker [facility] Sep 21, 2004 09:54 AM CURRENT SMOKER [facility] Sep 07, 2004 08:07 AM CURRENT SMOKER [facility] Sep 15, 2003 11:21 AM CURRENT SMOKER smokes one pk day [facility] Jul 23, 2003 01:57 PM CURRENT SMOKER [facility] Advance Directives: All historical and current Section Date Range: From patient's date of to the date document was created. This section includes ALL of a patient's completed or amended [place] Advance and Rescinded Directives. The entries below indicate that a directive exists for the patient, but an actual copy is not included with this document. The data comes from all [place] facilities. Date Advance Directives Provider Source Apr 10, 2023 ADVANCE DIRECTIVE ESSIE STARK [place] [facility] Apr 19, 2007 ADVANCE DIRECTIVE VICTORIA JOHNSON [facility] Radiology Reports: +/- 30 days of [...] the Encounter. The data comes from all [place] treatment facilities. Date/Time Radiology Report Provider Source Feb 15, 2024 09:[address] THORAX W/O CONT: GUSTAVO GUZMAN CATHERINE -1940 M Ex Date: FEB 15, 2024@09:56 Req Phys: TRACY VILLANUEVA Loc: CWM/SO/PACT 7 (Req'g Loc) Img Loc: [place]/CT Service: Unknown [facility] , (Case [id number] COMPLETE) CT THORAX W/O CONT (CT Detailed) CPT:93080 Reason for Study: smoker x 65 years Clinical History: Report Status: Verified Date Reported: FEB 20, 2024 Date Verified: FEB 20, 2024 Licensed Electrician E-Sig: Report: CT THORAX W/O CONT HISTORY: smoker x 65 years COMPARISON: April 19, 2006 TECHNIQUE: Helical CT of the chest, with multiplanar reformats including maximum intensity projection (MIP) reconstructions, was performed at the local [place] facility. 1019 images were received by the [place] National Teleradiology Program (NTP) for interpretation. RADIATION [...] as above. READING PHYSICIAN: Ck Jean M.D. -[id number] 02/20/2024 12:57 PDT [facility] National Teleradiology Program [phone] (For Medical Practitioner Use Only) Attention Patients / Veterans: If you have questions or concerns about these test results, please contact your ordering provider or primary care team. Primary Diagnostic Code: SIGNIFICANT ABNORMALITY, ATTN NEEDED Primary Interpreting Staff: RADIOLOGY,OUTSIDE SERVICE, Staff Physician / RADIOLOGY,OUTSIDE SERVICE [facility] Encounter Notes: All associated encounter notes This section contains the clinical notes associated to the Encounter. Date/Time Encounter Note(s) Provider Source Mar 15, 2024 08:28 AM ACCOUNTING OF DISCLOSURES NOTE: LOCAL TITLE: STATE PRESCRIPTION DRUG MONITORING PROGRAM STANDARD TITLE: ACCOUNTING OF DISCLOSURES NOTE DATE OF NOTE: MAR 15, 2024@08:28:20 ENTRY DATE: MAR 15, 2024@08:28:20 AUTHOR: JUAQUIN SCHAFFER EXP COSIGNER: URGENCY: STATUS: COMPLETED This PDMP query was submitted by Juaquin Schaffer MD. The clinical justification for this PDMP query is to review controlled substances prescribed outside of the [facility], and any additional information that may become available, as an important component of standard clinical care, and in accordance with [facility] policy. Patient information was shared with the [facility] [place]. No prescription(s) for controlled substances outside the [facility] were found in the last 90 days. /chavez SCHAFFER MD PHYSICIAN Signed: 03/15/2024 08:28 JUAQUIN SCHAFFER [facility] Feb 17, 2024 03:07 PM ACCOUNTING OF DISCLOSURES NOTE: LOCAL TITLE: STATE PRESCRIPTION DRUG MONITORING PROGRAM STANDARD TITLE: ACCOUNTING OF DISCLOSURES NOTE DATE OF NOTE: FEB 17, 2024@15:07:30 ENTRY DATE: FEB 17, 2024@15:07:30 AUTHOR: JUAQUIN SCHAFFER EXP COSIGNER: URGENCY: STATUS: COMPLETED This PDMP query was submitted by Juaquin Schaffer MD. The clinical justification for this PDMP query is to review controlled substances prescribed outside of the [place], and any additional information that may become available, as an important component of standard clinical care, and in accordance with [facility] policy. Patient information was shared with the [facility] [place]. No prescription(s) for controlled substances outside the [facility] were found in the last 90 days. /chavez SCHAFFER MD PHYSICIAN Signed: 02/17/2024 15:07 JUAQUIN SCHAFFER [facility] Feb 05, 2024 10:04 AM PAIN MEDICINE OUTPATIENT NOTE: LOCAL TITLE: PAIN CLINIC NOTE STANDARD TITLE: PAIN MEDICINE OUTPATIENT NOTE DATE OF NOTE: FEB 05, 2024@10:04 ENTRY DATE: FEB 05, 2024@10:04:06 AUTHOR: JUAQUIN SCHAFFER EXP COSIGNER: URGENCY: STATUS: COMPLETED PAIN CLINIC NOTE Has ADDENDA Son Gustavo, [facility], . Please call him with appointments and information; is elderly and with impaired memory. PACT TEAM: and son are looking for results of EGD done in December. Please call renée Rebol[place] with information. Small increase in HgbA1C to 7.7 during time of stress ( of partner): I gave reassurance this is not an acute issue. Continue metformin and wait to see trend with next A1C. DR. LEYVA: [place] is on polypharmacy that may not be appropriate for age and cognitive status (hydroxyzine from hospital). May need new antidepressant to replace bupropione. CURRENT Son Gustavo in background. Discharged from hospital yesterday, cardiac evaluation negative; discharge diagnosis was anxiety. -Stopped bupropion. -Started hydroxyzine. [place] stopped lithium after 3 days, It made me nervous and shaky. Pain continues to respond to buprenorphine at relatively low-dose. Lives alone with family nearby. 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 PAIN-RELATED MEDICATIONS Oxycodone 5 mg bid prn, uses sparingly Butrans, started 04/2023 Mirtazapine 15 mg qhs Trazodone Bupropion - anxiety RISK MITIGATION PDMP last date: 11/06/2023 UDS last date: 07/2023 LTOT consent: 02/09/2023 [employer] FROM December TO Oct Service Connected Disabilities with % - NONE [employer] for 2 years, ocean [employer] SOCIAL HISTORY Retired Lives near son Gustavo and his RN Grandchildren and great grandchildren Significant other Suzi - October 2023 FAMILY HISTORY SUBSTANCE USE HISTORY Tobacco: 1/2 ppd ETOH: None now, 2-3 per day until operation Marijuana: tired edibles Illicit drugs: None ASSESSMENT and PLAN Mr. Guzman is an 82 year old [place] [employer] with pain in his left abdomen and chest since January 19, 2023, after a TAVR procedure. 02/05/2024 POLYPHARMACY Stopped bupropion - hospital Stopped lithium after short trial - self Hydroxyzine - new, concerns for memory and balance - hospital Mirtazapine - taking Buprenorphine - using patch May need additional antidepressant and anxiolytic (SSRI plus buspirone - will review [facility] February 14) 11/06/2023 Pain remains improved compared to pre-consult in May. Son Gustavo and his (RN) are very helpful. Grieving of GEOVANI Archer. -Continue Butrans. -Continue oxycodone 5 mg daily in morning. -Steroid cream to use under patch. -Pregabalin - has not filled since 07/25 -Constipation relieved with stool softner DEPRESSION Meds per Dr. Leyva SLEEP APNEA Uses CPAP MOOD, SLEEP Meds per MH prescriber [place] and I formulated the plan through shared medical-decision making. [place] repeated the plan back to me and had no further questions at end of appointment. APPOINTMENT LENGTH: 45 minutes FOLLOW-UP: 8 weeks 02/15/2024 09:00 CWM/NO/JESSICA/BERNADINE 1 02/15/2024 09:45 CWM/NO/CAT SCAN 03/18/2024 09:30 CWM/SO/PACT 7 === MEDICATION and RECONCILIATION === Active Outpatient Medications (including Supplies): Active Outpatient Medications Status 1) AMLODIPINE BESYLATE 10MG TAB TAKE ONE TABLET BY MOUTH ACTIVE ONCE DAILY FOR BLOOD PRESSURE/HEART, DO NOT TAKE WITH GRAPEFRUIT JUICE Yes 2) APIXABAN 5MG TAB TAKE ONE TABLET BY MOUTH EVERY 12 ACTIVE HOURS FOR PREVENTION OF BLOOD CLOTS Yes 3) ASPIRIN 81MG EC TAB TAKE ONE TABLET BY MOUTH ONCE ACTIVE DAILY TO PREVENT STROKE/HEART ATTACK 4) ATORVASTATIN CALCIUM 40MG TAB TAKE ONE-HALF TABLET BY ACTIVE MOUTH ONCE DAILY FOR CHOLESTEROL 5) BUPRENORPHINE 15MCG/HR PATCH APPLY 1 PATCH TO SKIN ACTIVE EVERY 5 DAYS (REMOVE PATCH BEFORE APPLYING A NEW PATCH) Yes 6) BUPROPION HCL 200MG 12HR SA TAB TAKE ONE TABLET BY ACTIVE MOUTH EVERY MORNING DEPRESSION STOPPED 7) LITHIUM CARBONATE 150MG CAP TAKE ONE CAPSULE BY MOUTH ACTIVE AT BEDTIME MOOD, MEMORY STOPPED on his own, did not like side effects 8) MELATONIN 5MG CAP/TAB TAKE ONE CAPSULE/TABLET BY ACTIVE MOUTH AT BEDTIME FOR INSOMNIA 9) METFORMIN HCL 750MG 24HR SA TAB TAKE TWO TABLETS BY ACTIVE MOUTH ONCE DAILY FOR TYPE 2 DIABETES MELLITUS 10) MIRTAZAPINE 30MG TAB TAKE ONE-HALF TABLET BY MOUTH AT ACTIVE BEDTIME FOR DEPRESSION/MOOD Yes 11) PANTOPRAZOLE NA 40MG EC TAB TAKE ONE TABLET BY MOUTH ACTIVE EVERY MORNING 30 MINUTES BEFORE BREAKFAST 12) SENNOSIDES 8.6MG TAB TAKE ONE TABLET BY MOUTH TWICE ACTIVE DAILY NEEDED FOR CONSTIPATION Constipation 13) TRAZODONE HCL 100MG TAB TAKE ONE-HALF TABLET BY MOUTH ACTIVE AT BEDTIME INSOMNIA Yes 14) TRIAMCINOLONE ACETONIDE 0.1% CREAM APPLY A THIN LAYER HOLD TOPICALLY EVERY 5 DAYS ACTIVE PROBLEMS Active problems - Computerized Problem List is the source for the followin. Chronic pain 2. Chronic anaemia 3. Diabetes mellitus type 2 4. Long-term current use of anticoagulant 5. Communication authorization 6. Splenic infarction 7. Abnormal imaging 8. Aortic valve stenosis 9. Aneurysm of ascending aorta 10. Osteopenia 11. Sleep apnea 12. Admits alcohol use 13. Insomnia 14. Chronic obstructive lung disease 15. History of peripheral vascular disease 16. Jc's esophagus 17. Disorder of lumbar disc (SNOMED CT 905206375) 18. Depression (SNOMED CT 87560864) 19. Dry Eye Syndromes * 20. 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 OA - Osteoarthritis of hip 22. Prostate, Malign Neoplasm 23. Cataract, Cortical (Senile) 24. 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 Mixed hyperlipidaemia 26. Benign essential hypertension 27. POLYPS, COLON/LG BOWEL (BENIGN MAEGAN 28. Tobacco use (SNOMED CT 977602773) Appointment length includes time with , completing clinical reminders, reviewing relevant information in EMR, review of PDMP, ordering appropriate tests, prescribing medications, coordinating care, and completing the medical record. /chavez SCHAFFER MD PHYSICIAN Signed: 02/05/2024 10:44 Receipt Acknowledged By: 02/05/2024 15:52 /es/ LANA LEYVA PSYCHIATRIST 02/08/2024 15:19 /es/ DARLENE BOX CERTIFIED NURSE PRACTITIONER 02/08/2024 15:38 /es/ ZACHARY ABBOTT RN REGISTERED NURSE 03/15/2024 ADDENDUM STATUS: COMPLETED Note from Dr. Leyva 03/07/2024 that is asking to reduce or stop Butrans. I called and spoke with son Gustavo. [place] reports buprenorphine causes abdominal pain. New prescription for 10 mcg/hour for 1 week, then 5 mcg/hour for 2 weeks, then stop. Appointment in March. We will reevaluate pain needs at that time or sooner by secure messaging if needed. /chavez SCHAFFER MD PHYSICIAN Signed: 03/15/2024 08:31 JUAQUIN SCHAFFER [place] [facility]
--- OUTSIDE RECORDS SUMMARY | 2024-08-16 09:27 | XMS_ITS | Encounter Summary ---
Author Name [facility] [place] [facility] [place] [facility] [place] [place] [facility] [place] Address [address] [place] [address] Care Team Providers Care Play Reader Name Role Phone TRACY VILLANUEVA Primary Care [...] PHI MEDEX BRONZ E December 19, 2013 [id number] [phone] GUSTAVO GUZMAN SR PATIENT [employer] MEDICARE SUPPLEMEN PHI MEDIC ARE SUPPL EMENT Jul 21, 2007 NONE [id number] Edgar GUZMAN PATIENT [place] SUPPLEMEN PHI MEDEX BRONZ E December 19, 2013 [id number] [phone] GUSTAVO GUZMAN SR PATIENT BCBS OF [place] ([place]ARD) MEDICARE SUPPLEMEN PHI MEDEX BRONZ E December 19, 2013 [id number] Edgar GUZMAN PATIENT MEDICARE (WNR) MEDICARE (M) PART A Oct 19, 2004 PART A [id number] Edgar GUZMANN PATIENT MEDICARE (WNR) MEDICARE (M) PART B Oct 19, 2004 PART B [id number] [phone] Edgar GUZMANN PATIENT MEDICARE (WNR) MEDICARE (M) PART A Oct 19, 2004 PART A [id number] Edgar GUZMANN PATIENT MEDICARE (WNR) MEDICARE (M) PART B Oct 19, 2004 PART B [id number] Edgar GUZMANN PATIENT MEDICARE (WNR) MEDICARE (M) PART A Oct 19, 2004 PART A [id number] Edgar GUZMANN PATIENT MEDICARE (WNR) MEDICARE () PART B Oct 19, 2004 PART B [id number] [id number] Edgar GUZMANN PATIENT MEDICARE (WNR) MEDICARE () PART A Oct 19, 2004 PART A [id number] Edgar GUZMAN PATIENT MEDICARE (WNR) MEDICARE () PART B Oct 19, 2004 PART B [id number] Edgar GZUMANN PATIENT MEDICARE (WNR) MEDICARE () PART A Oct 19, 2004 PART A [id number] [phone] Edgar GUZMANN PATIENT MEDICARE (WNR) MEDICARE () PART B Oct 19, 2004 PART B [id number] Edgar GUZMAN PATIENT Selected Encounter This section includes the information on record at [place] for the Encounter. Date/Time Encounter Type Encounter Description Reason Pro vider Source Feb 16, 2024 02:45 PM Outpatient Encounter ADMIN PAT ACTIVTIES (MASNONCT) IHE Encounter Template Text not used by [place] Plan of Treatment: Future Appointments (+ 6 months) and Future Tests (+/- 45 days) The Plan of Treatment section includes future care activities for the patient from all [place] [facility]. This section includes future appointments and future orders which are active, pending or scheduled. Future Appointments This section includes appointments that were scheduled to occur 6 months from the date of the Encounter, up to a maximum of 20 appointments. The data comes from all [place] treatment facilities. Appointment Date/Time Appointment Type Appointme nt Facility Name Mar 07, 2024 09:00 AM AMBULATORY [facility] [place] [facility] Mar 08, 2024 08:30 AM AMBULATORY - NONE [facility] [place] [facility] Mar 11, 2024 09:00 AM AMBULATORY - MEDIC[facility] Apr 04, 2024 11:00 AM AMBULATORY - PS[facility]IATRY [facility] [place] [facility] Apr 08, 2024 09:30 AM AMBULATORY [facility] MEDICINE [facility] [place] [facility] Apr 10, 2024 10:45 AM AMBULATORY [facility] MEDICINE [facility] [place] [facility] Apr 26, 2024 11:00 AM AMBULATORY [facility]ICINE [facility] [place] [facility] Apr 30, 2024 08:30 AM AMBULATORY [facility] PS[facility]IATRY [facility] [place] [facility] May 01, 2024 11:00 AM AMBULATORY - NONE [facility] [place] [facility] May 14, 2024 11:30 AM AMBULATORY [facility] May 31, 2024 11:00 AM AMBULATORY - REHAB MEDICIN E [facility] [place] [facility] May 31, 2024 12:00 PM AMBULATORY - MEDICINE [facility] [place] [facility] Jun 10, 2024 10:00 AM AMBULATORY [facility] Jun 11, 2024 09:30 AM AMBULATORY - PS[facility]CHIATRY [facility] [place] [facility] Jun 13, 2024 10:00 AM AMBULATORY - MEDICINE [facility] [place] [facility] Jun 19, 2024 11:00 AM AMBULATORY - NONE [facility] [place] [facility] Jun 21, 2024 09:00 AM AMBULATORY - MEDICINE [facility] [place] [facility] Jun 21, 2024 09:15 AM AMBULATORY - MEDICINE [facility] [place] [facility] Jun 21, 2024 09:30 AM AM[facility]ULATORY [facility]ICINE [facility] [place] [facility] Jun 26, 2024 08:00 AM AMBULATORY - [place]ICINE [place] [facility] [place] [facility] Social History: Smoking Status (Most current) and Tobacco Use (All prior to encounter date) This section includes the most current, and the historical, smoking and tobacco- related health factors from the [place] facility where the Encounter took place. Current Smoking Status This section includes the most current smoking, or tobacco-related health factor, from the [place] facility where the Encounter took place. Date/Time Current Smoking Status Comment Facil it December 25, 2023 09:05 AM VA-TOBACCO NEVER USED [place] [facility] Tobacco Use History This section includes a history of the smoking, or tobacco-related health factors, that were collected on or before the date of the Encounter. The data comes from the [place] facility where the Encounter took place. 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 [facility] [place] [facility] Dec 13, 2022 03:00 PM VA-TOBACCO USE MED NO [facility] [place] [facility] Dec 13, 2022 03:00 PM VA-TOBACCO USER EVERY DAY [facility] [place] [facility] Nov 17, 2021 10:00 AM VA-TOBACCO USE 30 YEARS OR MORE [facility] [place] [facility] Nov 17, 2021 10:00 AM VA-TOBACCO USE ADVICE [facility] [place] [facility] Nov 17, 2021 10:00 AM 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 [facility] [place] [facility] Nov 17, 2021 10:00 AM VA-TOBACCO USE MED NO [facility] [place] [facility] Nov 17, 2021 10:00 AM VA-TOBACCO USE WI 30 MIN OF WAKEUP [facility] [place] [facility] Nov 17, 2021 10:00 AM VA-TOBACCO USER EVERY DAY [facility] Oct 14, 2013 12:55 PM V1-PT NOT INTERESTED IN QUIT TOBACCO USE [facility] [place] [facility] May 07, 2013 05:04 PM CURRENT SMOKER trying to stop [facility] [place] [facility] May 07, 2013 05:04 PM V1-PT DECLINES REF TO [facility]ACCO [facility]ESS [facility] May 07, 2013 05:04 PM V1-PT DECLINES TOBACCO CESSATION [facility] May 07, 2013 05:04 PM V1-PT READY TO QUIT TOBACCO USE [facility] [facility] Dec 03, 2012 08:23 AM V1-PT DECLINES REF TO TOBACCO CESS PRGM [facility] [place] [facility] Dec 03, 2012 08:23 AM V1-PT DECLINES TOBACCO CESSATION MEDS [facility] [place] Dec 03, 2012 08:23 AM V1-PT THINKING ABOUT QUIT TOBACCO USE [facility] [place] [facility] Jun 05, 2012 08:45 AM CURRENT SMOKER 1/2ppd [facility] [facility] Jun 05, 2012 08:45 AM V1-PT DECLINES REF TO TOBACCO CESS PRGM [facility] Jun 05, 2012 08:45 AM V1-PT THINKING ABOUT QUIT TOBACCO USE [facility] Jun 05, 2012 08:45 AM V1-TOBACCO CESS MEDS NOT PRESCRIBED Vet wants to talk to his provider-He is nervous about taking meds to quit- but he is interested in quitting [facility] [place] [facility] Nov 25, 2011 09:14 AM V1-PT DECLINES REF TO TOBACCO CESS [facility] Nov 25, 2011 09:14 AM V1-PT DECLINES TOBACCO CESSATION MEDS [facility] [place] [facility] Nov 25, 2011 09:14 AM V1-PT THINKING ABOUT QUIT TOBACCO USE [facility] May 06, 2011 01:02 PM CURRENT SMOKER [facility] [place] [facility] May 06, 2011 01:02 PM V1-PT DECLINES TOBACCO CESSATION MEDS [facility] [place] [facility] May 06, 2011 01:02 PM V1-PT NOT INTERESTED IN QUIT TOBACCO USE [facility] [place] [facility] Sep 24, 2010 08:51 AM V1-PT DECLINES TOBACCO CESSATION MEDS [facility] [place] [facility] Sep 24, 2010 08:51 AM V1-PT THINKING ABOUT QUIT TOBACCO USE [facility] [place] [facility] Mar 22, 2010 07:58 AM CURRENT SMOKER 1/2 ppd [facility] [place] [facility] Feb 25, 2009 12:05 PM QUIT TOBACCO USE IN PAST YEAR [facility] [place] [facility] Aug 26, 2008 09:28 AM CURRENT SMOKER 1/2 ppd [facility] Aug 26, 2008 09:28 AM V1-PT DECLINES REF TO TOBACCO CESS PRGM [facility] [place] [place] [facility] Aug 26, 2008 09:28 AM V1-PT READY TO QUIT TOBACCO USE [facility] [place] [facility] Dec 19, 2007 10:08 AM V1-PT DECLINES REF TO TOBACCO CESS PR[facility] Dec 19, 2007 10:08 AM V1-PT DECLINES TOBACCO CESSATION [facility] Dec 19, 2007 10:08 AM V1-PT THINKING ABOUT QUIT TOBACCO USE [facility] [place] [place] [facility] Sep 11, 2007 11:10 AM CURRENT SMOKER [facility] [place] [facility] Sep 11, 2007 11:10 AM V1-PT DECLINES REF TO TOBACCO CESS PRGM [facility] [place] [facility] Sep 11, 2007 11:10 AM V1-PT DECLINES TOBACCO CESSATION MEDS [facility] [place] [facility] Sep 11, 2007 11:10 AM V1-PT THINKING ABOUT QUIT TOBACCO USE [facility] [place] [facility] Feb 13, 2007 01:46 PM V1-PT DECLINES REF TO TOBACCO CESS PRGM [facility] Feb 13, 2007 01:46 PM V1-PT DECLINES TOBACCO CESSATION MEDS [facility] Feb 13, 2007 01:46 PM V1-PT THINKING ABOUT [facility]IT [facility] Oct 02, 2006 08:28 AM QUIT TOBACCO USE IN PAST YEAR 3 months ago [facility] Aug 19, 2005 08:33 AM QUIT TOBACCO USE IN PAST YEAR nonsmoker [facility] Sep 21, 2004 09:54 AM [facility]ER [facility] Sep 07, 2004 08:07 AM [facility] Sep 15, 2003 11:21 AM CURRENT SMOKER smokes one pk day [facility] Jul 23, 2003 01:57 PM [facility] Advance Directives: All historical and current Section Date Range: From patient's date of to the date document was created. This section includes ALL of a patient's completed or amended [place] Advance and Rescinded Directives. The entries below indicate that a directive exists for the patient, but an actual copy is not included with this document. The data comes from all [place] facilities. Date Advance Directives Provider Source Apr 10, 2023 ADVANCE DIRECTIVE ESSIE STARK [facility] W RADHA [facility] Apr 19, 2007 ADVANCE DIRECTIVE VICTORIA [facility] Radiology Reports: +/- 30 days of [...] the Encounter. The data comes from all [place] treatment facilities. Date/Time Radiology Report Provider Source Feb 15, 2024 09:[address] THORAX W/O CONT: GUSTAVO GUZMAN CATHERINE -1940 M Exm Date: FEB 15, 2024@09:56 Req Phys: TRACY VILLANUEVA Pat Loc: CWM/SO/PACT 7 (Req'g Loc) Img Loc: [facility]/CT Service: Unknown [facility] [place] , (Case [id number] COMPLETE) CT THORAX W/O CONT (CT Detailed) CPT:53483 Reason for Study: smoker x 65 years Clinical History: Report Status: Verified Date Reported: FEB 20, 2024 Date Verified: FEB 20, 2024 Automobile Locator E-Sig: Report: CT THORAX W/O CONT HISTORY: smoker x 65 years COMPARISON: April 19, 2006 TECHNIQUE: Helical CT of the chest, with multiplanar reformats including maximum intensity projection (MIP) reconstructions, was performed at the local [place] facility. 1019 images were received by the [place] National Teleradiology Program (NTP) for interpretation. RADIATION [...] as above. READING PHYSICIAN: Ck Jean M.D. -[id number] 02/20/2024 12:57 PDT [facility] National Teleradiology Program [phone] (For Medical Practitioner Use Only) Attention Patients / Veterans: If you have questions or concerns about these test results, please contact your ordering provider or primary care team. Primary Diagnostic Code: SIGNIFICANT ABNORMALITY, ATTN NEEDED Primary Interpreting Staff: RADIOLOGY,OUTSIDE SERVICE, Staff Physician / RADIOLOGY,OUTSIDE SERVICE [facility] Encounter Notes: All associated encounter notes This section contains the clinical notes associated to the Encounter. Date/Time Encounter Note(s) Provider Source Feb 16, 2024 03:23 PM ADDENDUM: LOCAL TITLE: Addendum STANDARD TITLE: ADDENDUM DATE OF NOTE: FEB 16, 2024@15:23:09 ENTRY DATE: FEB 16, 2024@15:23:10 AUTHOR: JOSE HERNANDEZ EXP COSIGNER: URGENCY: STATUS: COMPLETED Christine's son, Gustavo Guzman Jr., leaving message on [facility] with same concern as written in above note. Son stating that is unable to fill prescription until 02/25/24 Last refill was for 5 patches [son stated expectation of 6 patches] Message states that will run out well before the next prescription refill will be able to be picked up. Medication: Buprenorphine .5 mcg/hr. patch Quantity: 5 Instructions: Apply 1 patch every 5 days; Remove old patch before applying new patch Christine's son requesting a CB as soon as possible to straighten out medication before his father begins to experience increased pain. CB # left w/ VM is for Gustavo Jr. Megan: [phone] Number is in 's record; /reginaldo/ GLENN PRESTON PHYSICAL THERAPIST Signed: 02/16/2024 15:37 Receipt Acknowledged By: 02/16/2024 15:54 /es/ DARLENE BOX CERTIFIED NURSE PRACTITIONER 03/05/2024 15:59 /reginaldo/ RONALD KNUTSON CLINICAL FLAT BREAKDOWN PROCESSOR 02/16/2024 16:04 /es/ RABIA MANN ADVANCED PROJECT ACCOUNTANT === --- Original Document --- 02/16/24 CCC: SCHEDULING ADMINISTRATION: Patient Demographics Patient Name: GUSTAVO GUZMAN Patient Primary Phone: [phone] Patient Primary Address: [address] [place] [address] Patient : 1940 Patient Age: 83 Current Location: [facility] Call Back Number: [phone] m-f 8-4:30 Caller/Recipient Relation to Patient: Caregiver Caller Name: Kylie Valenzuela RN Scheduling Patient Expects Callback: No Administrative Administrative Note Reason: Home Health / [facility] Administrative Note Comments: Kylie Valenzuela RN Requesting return call RE: medication reconciliation from 02/04 /reginaldo/ GISELLA JORDAN CDA/AMSA Signed: 02/16/2024 14:46 Receipt Acknowledged By: 02/19/2024 08:31 /es/ MARCUS DOZIER LPN LPN 02/19/2024 11:42 /es/ KAPIL SUAREZ RN- REGISTERED NURSE for JOSE CONCEPCION [facility] Feb 16, 2024 02:46 PM ADMINISTRATIVE NOTE: LOCAL TITLE: CCC: SCHEDULING ADMINISTRATION STANDARD TITLE: ADMINISTRATIVE NOTE DATE OF NOTE: FEB 16, 2024@14:46:04 ENTRY DATE: FEB 16, 2024@14:46:04 AUTHOR: GISELLA JORDAN COSIGNER: URGENCY: STATUS: COMPLETED CCC: SCHEDULING ADMINISTRATION Has ADDENDA Patient Demographics Patient Name: GUSTAVO GUZMAN Patient Primary Phone: [phone] Patient Primary Address: [address] [place] [address] Patient : 1940 Patient Age: 83 Current Location: [facility] Call Back Number: [phone] m-f 8-4:30 Caller/Recipient Relation to Patient: Caregiver Caller Name: Kylie Valenzuela RN Scheduling Patient Expects Callback: No Administrative Administrative Note Reason: Home Health / [facility] Administrative Note Comments: Kylie Valenzuela RN Requesting return call RE: medication reconciliation from 02/04 /es/ GISELLA [facility] GISELLA COUChirag CDA/AMSA Signed: 02/16/2024 14:46 Receipt Acknowledged By: 02/19/2024 08:31 /es/ MARCUS DOZIER LPN LPN 02/19/2024 11:42 /es/ KAPIL SUAREZ RN- REGISTERED NURSE for ZACHARY ABBOTT 02/16/2024 ADDENDUM STATUS: COMPLETED Christine's son, Gustavo Jr Megan., leaving message on [facility] with same concern as written in above note. Son stating that is unable to fill prescription until 02/25/24 Last refill was for 5 patches [son stated expectation of 6 patches] Message states that will run out well before the next prescription refill will be able to be picked up. Medication: Buprenorphine .5 mcg/hr. patch Quantity: 5 Instructions: Apply 1 patch every 5 days; Remove old patch before applying new patch Christine's son requesting a CB as soon as possible to straighten out medication before his father begins to experience increased pain. CB # left w/ VM is for Gustavo Guzman Jr.: [phone] Number is in 's record; /es/ GLENN PRESTON PHYSICAL THERAPIST Signed: 02/16/2024 15:37 Receipt Acknowledged By: 02/16/2024 15:54 /es/ DARLENE BOX CERTIFIED NURSE PRACTITIONER * AWAITING SIGNATURE * RONALD KNUTSON 02/16/2024 16:04 /es/ RABIA MANN ADVANCED PROJECT ACCOUNTANT [facility]
--- OUTSIDE RECORDS SUMMARY | 2024-08-16 09:27 | XMS_ITS | Encounter Summary ---
Author Name [facility] [facility] [place] Address [address] [place] [address] Care Team Providers Care Diagrammer And Seamer Name Role Phone TRACY VILLANUEVA Primary Care [...] PHI MEDEX BRONZ E December 19, 2013 [id number] GUSTAVO ARAMBULA SR PATIENT [employer]UAL[employer] MEDICARE SUPPLEMEN PHI MEDIC ARE SUPPL EMENT Jul 21, 2007 NONE [id number] Edgar ARAMBULA PATIENT [place] SUPPLEMEN PHI MEDEX BRONZ E December 19, 2013 [id number] [phone] GUSTAVO ARAMBULA SR PATIENT [place] OF [place] ([place] MEDICARE SUPPLEMEN PHI MEDEX BRONZ E December 19, 2013 [id number] Edgar ARAMBULA PATIENT MEDICARE (WNR) MEDICARE () PART A Oct 19, 2004 PART A [id number] [id number] Edgar ARAMBULAN PATIENT MEDICARE (WNR) MEDICARE () PART B Oct 19, 2004 PART B [id number] [id number] Edgar ARAMBULA [place] PATIENT MEDICARE (WNR) MEDICARE () PART A Oct 19, 2004 PART A [id number] [id number] Edgar ARAMBULAN PATIENT MEDICARE (WNR) MEDICARE () PART B Oct 19, 2004 PART B [id number] Edgar ARAMBULAN PATIENT MEDICARE (WNR) MEDICARE () PART A Oct 19, 2004 PART A [id number] [id number] Edgar ARAMBULA [place] PATIENT MEDICARE (WNR) MEDICARE () PART B Oct 19, 2004 PART B [id number] [id number] Edgar ARAMBULAN PATIENT MEDICARE (WNR) MEDICARE () PART A Oct 19, 2004 PART A [id number] [phone] Edgar ARAMBULA PATIENT MEDICARE (WNR) MEDICARE () PART B Oct 19, 2004 PART B [id number] Edgar ARAMBULAN PATIENT MEDICARE (WNR) MEDICARE () PART A Oct 19, 2004 PART A [id number] Edgar ARAMBULAN PATIENT MEDICARE (WNR) MEDICARE () PART B Oct 19, 2004 PART B [id number] Edgar ARAMBULAN PATIENT Selected Encounter This section includes the information on record at [place] for the Encounter. Date/Time Encounter Type Encounter Description Reason Pro vider Source Feb 08, 2024 11:35 AM Outpatient Encounter PRIMARY CARE/MEDICINE IHE Encounter [...] 20 appointments. The data comes from all [place] treatment facilities. Appointment Date/Time Appointment Type Appointme nt Facility Name Feb 13, 2024 11:30 AM [facility]BULATORY - [facility]ICINE [facility] Feb 15, 2024 09:00 AM AMB[facility] Feb 15, 2024 09:45 AM AMBULATORY - NONE [facility] Mar 07, 2024 09:00 AM AMBULATORY - PS[facility] Mar 08, 2024 08:30 AM AMBULATORY - NONE [facility] Mar 11, 2024 09:00 AM [facility]ATORY - MEDICINE [facility] Apr 04, 2024 11:00 AM AMBULATORY [facility] Apr 08, 2024 09:30 AM [facility] Apr 10, 2024 10:45 AM [facility] Apr 26, 2024 11:00 AM [facility] Apr 30, 2024 08:30 AM AMBULATORY - PS[facility]CHIATRY [facility] May 01, 2024 11:00 AM AMBULATORY - NONE [facility] May 14, 2024 11:30 AM [facility]ORY [facility]IC[facility] May 31, 2024 11:00 AM AMBULATORY - REHAB MEDICIN E [facility] May 31, 2024 12:00 PM AMBULATORY [facility]ICINE [facility] Jun 10, 2024 10:00 AM [facility] Jun 11, 2024 09:30 AM AMBULATORY - PS[facility]CHIATRY [facility] Jun 13, 2024 10:00 AM AM[facility]ORY [facility] Jun 19, 2024 11:00 AM AMBULATORY - NONE [facility] Jun 21, 2024 09:00 AM [place] [facility] Social History: Smoking Status (Most current) and Tobacco Use (All prior to encounter date) This section includes the most current, and the historical, smoking and tobacco- related health factors from the [place] facility where the Encounter took place. Current Smoking Status This section includes the most current smoking, or tobacco-related health factor, from the [place] facility where the Encounter took place. Date/Time Current Smoking Status Comment Facil it December 25, 2023 09:05 AM VA-TOBACCO NEVER USED [place] [facility] Tobacco Use History This section includes a history of the smoking, or tobacco-related health factors, that were collected on or before the date of the Encounter. The data comes from the [place] facility where the Encounter took place. 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 [facility] Dec 13, 2022 03:00 PM VA-TOBACCO USE MED NO [facility] Dec 13, 2022 03:00 PM VA-TOBACCO USER EVERY DAY [facility] Nov 17, 2021 10:00 AM VA-TOBACCO USE 30 YEARS OR MORE [facility] Nov 17, 2021 10:00 AM VA-TOBACCO USE ADVICE [facility] Nov 17, 2021 10:00 AM VA-TOBACCO USE 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 NO [facility] Nov 17, 2021 10:00 AM VA-TOBACCO USE MED NO [facility] Nov 17, 2021 10:00 AM VA-TOBACCO USE WI 30 MIN OF WAKEUP [facility] Nov 17, 2021 10:00 AM VA-TOBACCO USER EVERY DAY [facility] Oct 14, 2013 12:55 PM V1-PT NOT INTERESTED IN QUIT TOBACCO USE [facility] May 07, 2013 05:04 PM CURRENT SMOKER trying to stop [facility] May 07, 2013 05:04 PM V1-PT DECLINES REF TO [facility]BACCO [facility]ESS [facility] May 07, 2013 05:04 PM V1-PT DECLINES TOBACCO CESSATION MEDS [facility] May 07, 2013 05:04 PM V1-PT READY TO QUIT TOBACCO USE [facility] Dec 03, 2012 08:23 AM V1-PT DECLINES REF TO TOBACCO CESS PRGM [facility] Dec 03, 2012 08:23 AM V1-PT DECLINES TOBACCO CESSATION MEDS [facility] Dec 03, 2012 08:23 AM V1-PT THINKING ABOUT QUIT TOBACCO USE [facility] Jun 05, 2012 08:45 AM CURRENT SMOKER 1/2ppd [facility] Jun 05, 2012 08:45 AM V1-PT DECLINES REF TO TOBACCO CESS PRGM [facility] Jun 05, 2012 08:45 AM V1-PT THINKING ABOUT QUIT TOBACCO USE [facility] Jun 05, 2012 08:45 AM V1-TOBACCO CESS MEDS NOT PRESCRIBED Vet wants to talk to his provider-He is nervous about taking meds to quit- but he is interested in quitting [facility] Nov 25, 2011 09:14 AM V1-PT DECLINES REF TO TOBACCO CESS PRGM [facility] Nov 25, 2011 09:14 AM V1-PT DECLINES TOBACCO CESSATION MEDS [facility] Nov 25, 2011 09:14 AM V1-PT THINKING ABOUT QUIT TOBACCO USE [facility] May 06, 2011 01:02 PM CURRENT SMOKER [facility] May 06, 2011 01:02 PM V1-PT DECLINES TOBACCO CESSATION MEDS [facility] May 06, 2011 01:02 PM V1-PT NOT INTERESTED IN QUIT TOBACCO USE [facility] Sep 24, 2010 08:51 AM V1-PT DECLINES TOBACCO CESSATION MEDS [facility] Sep 24, 2010 08:51 AM V1-PT THINKING ABOUT QUIT TOBACCO USE [facility] Mar 22, 2010 07:58 AM CURRENT SMOKER 1/2 ppd [facility] Feb 25, 2009 12:05 PM QUIT TOBACCO USE IN PAST YEAR [facility] Aug 26, 2008 09:28 AM CURRENT SMOKER 1/2 ppd [facility] Aug 26, 2008 09:28 AM V1-PT DECLINES REF TO TOBACCO CESS PRGM [facility] Aug 26, 2008 09:28 AM V1-PT READY TO QUIT TOBACCO USE [facility] Dec 19, 2007 10:08 AM V1-PT DECLINES REF TO TOBACCO CESS PRGM [facility] Dec 19, 2007 10:08 AM V1-PT DECLINES TOBACCO CESSATION MEDS [facility] Dec 19, 2007 10:08 AM V1-PT THINKING ABOUT QUIT TOBACCO USE [facility] Sep 11, 2007 11:10 AM CURRENT SMOKER [facility] Sep 11, 2007 11:10 AM V1-PT DECLINES REF TO TOBACCO CESS PRGM [facility] Sep 11, 2007 11:10 AM V1-PT DECLINES TOBACCO CESSATION MEDS [facility] Sep 11, 2007 11:10 AM V1-PT THINKING ABOUT QUIT TOBACCO USE [facility] Feb 13, 2007 01:46 PM V1-PT DECLINES REF TO TOBACCO CESS PRGM [facility] Feb 13, 2007 01:46 PM V1-PT DECLINES TOBACCO CESSATION MEDS [facility] Feb 13, 2007 01:46 PM V1-PT THINKING ABOUT QUIT [facility]ACCO [facility] Oct 02, 2006 08:28 AM QUIT TOBACCO USE IN PAST YEAR 3 months ago [facility] Aug 19, 2005 08:33 AM QUIT TOBACCO USE IN PAST YEAR nonsmoker [facility] Sep 21, 2004 09:54 AM CURRENT SMOKER [facility] Sep 07, 2004 08:07 AM [facility]MOKER [facility] Sep 15, 2003 11:21 AM CURRENT SMOKER smokes one pk day [facility] Jul 23, 2003 01:57 PM CURRENT SMOKER [facility] Advance Directives: All historical and current Section Date Range: From patient's date of to the date document was created. This section includes ALL of a patient's completed or amended [place] Advance and Rescinded Directives. The entries below indicate that a directive exists for the patient, but an actual copy is not included with this document. The data comes from all [place] facilities. Date Advance Directives Provider Source Apr 10, 2023 ADVANCE DIRECTIVE ESSIE STARK [facility] Apr 19, 2007 ADVANCE DIRECTIVE VICTORIA JOHNSON [facility] Radiology Reports: +/- 30 days of [...] the Encounter. The data comes from all [place] treatment facilities. 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 1019 images were received by the [place] National Teleradiology Program (NTP) for interpretation. RADIATION [...] as above. READING PHYSICIAN: Ck Jean M.D. -[id number] 02/20/2024 12:57 PDT [facility] National Teleradiology Program [phone] (For Medical Practitioner Use Only) Attention Patients / Veterans: If you have questions or concerns about these test results, please contact your ordering provider or primary care team. Primary Diagnostic Code: SIGNIFICANT ABNORMALITY, ATTN NEEDED Primary Interpreting Staff: RADIOLOGY,OUTSIDE SERVICE, Staff Physician / RADIOLOGY,OUTSIDE SERVICE [facility] Encounter Notes: All associated encounter notes This section contains the clinical notes associated to the Encounter. Date/Time Encounter Note(s) Provider Source Feb 08, 2024 03:41 PM ADDENDUM: LOCAL TITLE: Addendum STANDARD TITLE: ADDENDUM DATE OF NOTE: FEB 08, 2024@15:41:59 ENTRY DATE: FEB 08, 2024@15:41:59 AUTHOR: ZACHARY ABBOTT EXP COSIGNER: URGENCY: STATUS: COMPLETED Call and schedule for an earlier appt w/PCP for hospital f/u. /reginaldo/ ZACHARY ABBOTT RN REGISTERED NURSE Signed: 02/08/2024 15:43 Receipt Acknowledged By: 02/09/2024 10:52 /reginaldo/ RABIA MANN [employer] PROGRAM DIRECTOR --- Original Document --- 02/08/24 TELEPHONE NOTE/PRIMARY CARE: [facility] CALLED,SPOKE WITH MEDICAL RECORDS REPRESENTIVE AND REQUESTED NON [place] RECORDS (EGD RESULTS) DIRECTED FROM CONTACT LISTED BELOW : [facility] ()[phone] /reginaldo/ RABIA MANN [employer]ED THEAT[employer] PROGRAM DIRECTOR Signed: 02/08/2024 11:38 ZACHARY ABBOTT Feb 08, 2024 11:35 AM PRIMARY CARE TELEP MELVI ENCOUNTER NOTE: LOCAL TITLE: TELEPHONE NOTE/PRIMARY CARE STANDARD TITLE: PRIMARY CARE TELEPHONE ENCOUNTER NOTE DATE OF NOTE: FEB 08, 2024@11:35 ENTRY DATE: FEB 08, 2024@11:35:48 AUTHOR: RABIA MANN COSIGNER: URGENCY: STATUS: COMPLETED TELEPHONE NOTE/PRIMARY CARE Has ADDENDA [facility] CALLED,SPOKE WITH MEDICAL RECORDS REPRESENTIVE AND REQUESTED NON [place] RECORDS (EGD RESULTS) DIRECTED FROM CONTACT LISTED BELOW : [facility] ()[phone] /reginaldo/ RABIA MANN [employer]AT[employer] PROGRAM DIRECTOR Signed: 02/08/2024 11:38 02/08/2024 ADDENDUM STATUS: COMPLETED Call and schedule for an earlier appt w/PCP for hospital f/u. /es/ ZACHARY ABBOTT RN REGISTERED NURSE Signed: 02/08/2024 15:43 Receipt Acknowledged By: * AWAITING SIGNATURE * RABIA MANN LILLIAN A [place]
--- OUTSIDE RECORDS SUMMARY | 2024-08-16 09:27 | XMS_ITS | Encounter Summary ---
Author Name [facility] [place] Address [address] [place] [address] Care Team Providers Care [employer] Counselor Name Role Phone TRACY VILLANUEVA Primary Care [...] PHI MEDEX BRONZ E December 19, 2013 [id number] [phone] GUSTAVO ARAMBULA SR PATIENT [employer] MEDICARE SUPPLEMEN PHI MEDIC ARE SUPPL EMENT Jul 21, 2007 NONE [id number] [phone] Edgar ARAMBULA PATIENT BCBS OR MEDICARE SUPPLEMEN PHI MEDEX BRONZ E December 19, 2013 [id number] [phone] GUSTAVO ARAMBULA SR PATIENT [place] ([place]ARD) MEDICARE SUPPLEMEN PHI MEDEX BRONZ E December 19, 2013 [id number] Edgar ARAMBULAN PATIENT MEDICARE (WNR) MEDICARE (M) PART A Oct 19, 2004 PART A [id number] [phone] Edgar RAAMBULA [place] PATIENT MEDICARE (WNR) MEDICARE (M) PART B Oct 19, 2004 PART B [id number] Edgar ARAMBULA [place] PATIENT MEDICARE (WNR) MEDICARE (M) PART A Oct 19, 2004 PART A [id number] Edgar ARAMBULA [place] PATIENT MEDICARE (WNR) MEDICARE (M) PART B Oct 19, 2004 PART B [id number] Edgar ARAMBULA [place] PATIENT MEDICARE (WNR) MEDICARE (M) PART A Oct 19, 2004 PART A [id number] Edgar ARAMBULA [place] PATIENT MEDICARE (WNR) MEDICARE (M) PART B Oct 19, 2004 PART B [id number] Edgar ARAMBULAN PATIENT MEDICARE (WNR) MEDICARE () PART A Oct 19, 2004 PART A [id number] Edgar ARAMBULAN PATIENT MEDICARE (WNR) MEDICARE () PART B Oct 19, 2004 PART B [id number] Edgar ARAMBULAN PATIENT MEDICARE (WNR) MEDICARE () PART A Oct 19, 2004 PART A [id number] Edgar ARAMBULA PATIENT MEDICARE (WNR) MEDICARE (M) PART B Oct 19, 2004 PART B [id number] [phone] Edgar ARAMBULAN PATIENT Selected Encounter This section includes the information on record at [place] for the Encounter. Date/Time Encounter Type Encounter Description Reason Provider Source Feb 13, 2024 11:30 AM OFFICE O/P EST MOD 30 MIN PRIMARY CARE/MEDICINE ICD-10-CM E11.9 Type 2 diabetes mellitus without complications [place] VILLANUEVA Encounter Template Text not used by [place] Assessments - Encounter Diagnoses This section includes the primary and secondary diagnoses documented for the Encounter. 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 TRACY VILLANUEVA [place] Feb 14, 2024 01:42 PM SECONDARY Essential (primary) hypertension TRACY VILLANUEVA [place] Feb 14, 2024 01:42 PM SECONDARY Foreign body sensation, throat TRACY VILLANUEVA [place] Feb 14, 2024 01:42 PM SECONDARY Generalized anxiety disorder TRACY VILLANUEVA [facility] 26, 2024 01:42 PM SECONDARY skilled nursing (current) use of anticoagulants TRACY VILLANUEVA [place] Feb 14, 2024 01:42 PM SECONDARY Major depressive disorder, recurrent, unspecified TRACY VILLANUEVA [facility] 26, 2024 01:42 PM SECONDARY 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 This section includes future appointments and future orders which are active, pending or scheduled. Future Appointments This section includes appointments that were scheduled to occur 6 months from the date of the Encounter, up to a maximum of 20 appointments. The data comes from all [place] treatment facilities. Appointment Date/Time Appointment Type Appointme nt Facility Name Feb 15, 2024 09:00 AM [facility] Feb 15, 2024 09:45 AM [facility] Mar 07, 2024 09:00 AM [facility] Mar 08, 2024 08:30 AM [facility] Mar 11, 2024 09:00 AM AMBULATORY - MEDICINE [facility] Apr 04, 2024 11:00 AM [facility]AT[facility] [place] [facility] Apr 08, 2024 09:30 AM [facility]AT[facility]INE [facility] [place] [facility] Apr 10, 2024 10:45 AM AMBULATORY [facility]ICINE [facility] [place] [facility] Apr 26, 2024 11:00 AM AMBULATORY [facility]ICINE [facility] [place] [facility] Apr 30, 2024 08:30 AM AMBULATORY - PS[facility]CHIATRY [facility] [place] [facility] May 01, 2024 11:00 AM AMBULATORY - NONE [facility] [place] [facility] May 14, 2024 11:30 AM [facility]ULATORY - MEDICINE [facility] May 31, 2024 11:00 AM AMBULATORY - REHAB MEDICIN [facility] [place] [facility] May 31, 2024 12:00 PM AMBULATORY - MEDICINE [facility] [place] [facility] Jun 10, 2024 10:00 AM [facility]ATORY - [facility]IC[facility] Jun 11, 2024 09:30 AM AMBULATORY - PSYCHIATRY [facility] [place] [facility] Jun 13, 2024 10:00 AM AMBULATORY - MEDICINE [facility] [place] [facility] Jun 19, 2024 11:00 AM AMBULATORY - NONE [facility] [place] [facility] Jun 21, 2024 09:00 AM AMBULATORY [facility] MEDICINE [facility] [place] [facility] Jun 21, 2024 09:15 AM AMBULATORY [facility] MEDICINE [facility] [place] [facility] Vital Signs: All taken on the encounter date This section contains inpatient and outpatient Vital Signs collected on the date of the Encounter. Date/Time Temperature Pulse Blood Pressure Respiratory Rate SP02 Pain Height Weight Body Mass Index Source Feb 13, 2024 11:48 AM 97.7 83 156/76 20 96 60.3 131 25 [place] Social History: Smoking Status (Most current) and [...] 2023 09:00 AM VA-TOBACCO USER EVERY DAY [place] Tobacco Use History This section includes a history of the smoking, or tobacco-related health factors, that were collected on or before the date of the Encounter. The data comes from the [place] facility where the Encounter took place. 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 [place] December 25, 2023 09:00 AM VA-TOBACCO USE MED NO [place] December 25, 2023 09:00 AM VA-TOBACCO USE WI 30 MIN OF WAKE UP [place] December 25, 2023 09:00 AM VA-TOBACCO USER EVERY DAY [place] Advance Directives: All historical and current Section [...] Provider Source Apr 10, 2023 ADVANCE DIRECTIVE GE[facility]IE DOZIER [facility] Apr 19, 2007 ADVANCE DIRECTIVE VICTORIA JOHNSON [facility] Radiology Reports: +/- 30 days [...] (Req'g Loc) Img Loc: NHM/CT Service: Unknown [facility] , (Case [id number] COMPLETE) CT THORAX W/O CONT (CT Detailed) CPT:99305 Reason for Study: smoker x 65 years Clinical History: Report Status: Verified Date Reported: FEB 20, 2024 Date Verified: FEB 20, 2024 Director Money E-Sig: Report: CT THORAX W/O CONT HISTORY: smoker x 65 years COMPARISON: April 19, 2006 TECHNIQUE: Helical CT of the chest, with multiplanar reformats including maximum intensity projection (MIP) reconstructions, was performed at the local [place] facility. 1019 images were received by the [place] National Teleradiology Program (NTP) for interpretation. RADIATION [...] as above. READING PHYSICIAN: Ck Jean M.D. -[phone] 02/20/2024 12:57 PDT [facility] National Teleradiology Program [phone] (For Medical Practitioner Use Only) Attention Patients / Veterans: If you have questions or concerns about these test results, please contact your ordering provider or primary care team. Primary Diagnostic Code: SIGNIFICANT ABNORMALITY, ATTN NEEDED Primary Interpreting Staff: RADIOLOGY,OUTSIDE SERVICE, Staff Physician / RADIOLOGY,OUTSIDE SERVICE [facility] Encounter Notes: All associated encounter notes This section contains the clinical notes associated to the Encounter. Date/Time Encounter Note(s) Provider Source Feb 13, 2024 11:33 AM PRIMARY CARE NURSE PRACTITIONER OUTPATIENT NOTE: LOCAL TITLE: NURSE PRACTITIONER OUTPATIENT NOTE STANDARD TITLE: PRIMARY CARE NURSE PRACTITIONER OUTPATIENT NOTE DATE OF NOTE: FEB 13, 2024@11:33 ENTRY DATE: FEB 13, 2024@11:33:12 AUTHOR: TRACY VILLANUEVA EXP COSIGNER: URGENCY: STATUS: COMPLETED PRIMARY CARE VISIT GUSTAVO ALEXANDER SR RALF, is a 83 y/o WHITE MALE [place] who presents today at the [place] [facility]. TYPE OF VISIT: Face to face HPI: smoker - down to 6 cig/day. Has LDCT scheduled for next week. DM2 - A1c up to 7.7, was 6.7 in August. Was suppose to be taking metformin XR 1500mg a day but was only taking 750mg. Daughter in law is an RN and has taken over managing his medications, this dose correction recently made. persistent sensation something in his throat - EGD 01/09/24 showed irregular z- line, hiatal hernia. Multiple polyps were removed but there are no results found. Suspicion for Jc's. No stricture noted. Is on PPI. s/p TIA 02/01/24 - presented to ED with whole body tremors, very elevated BP. Had numbness in left face. Describes a severe panic attack and thinks all symptoms were r/t anxiety. Head CT, CTA negative. Normal EKG and troponins. No changes were made to BP medications. Already on statin, apixaban and ASA. Reports home BP has been persistently elevated, SBP 170s. Was started on hydroxyzine for the anxiety, states it helps somewhat. Hospital stopped buproprion. Poor appetite, weight loss of 12# over past six months. Is already on Remeron. Admits to depressive symptoms, denies SI. Has f/u appt with MH next week. Urinary incontinence, needs refill of incontinence briefs. Recent labs reviewed and all medications were reconciled during this visit. HISTORY: PERIOD OF SERVICE - [employer] FROM December TO Oct COMBAT SERVICE INDICATED: No VITAL SIGNS: Blood Pressure: 156/76 (02/13/2024 11:48) Pain: 7 (09/05/2023 10:02) Patient Height: 60.3 in [153.2 cm] (02/13/2024 11:48) Patient Weight: 131 lb [59.42 kg] (02/13/2024 11:48) Pulse: 83 (02/13/2024 11:48) Respiration: 20 (02/13/2024 11:48) Temperature: 97.7 F [36.5 C] (02/13/2024 11:48) REVIEW OF SYSTEMS: CONSTITUTIONAL: No fevers, chills. Poor appetite, weight loss. EENT: persistent sensation of something in his throat. No dysphagia. CARDIOVASCULAR: Denies chest pain, palpitations or peripheral edema. RESPIRATORY: No SOB, cough, sputum, wheeze. GASTROINTESTINAL: Denies abdominal pain, N/V/D/C. No melena or hematochezia. GENITOURINARY: No dysuria, hematuria, urinary frequency or urgency. No nocturia. + urinary incontinence. PSYCHIATRIC: + anxiety and depression, panic attacks NEUROLOGIC: No headaches, dizziness, numbness/tingling in the extremities or unilateral weakness. PHYSICAL EXAMINATION: General: Well-appearing in no obvious distress. Mental Status: Alert and oriented x4. Eyes: PERRL. EOMI. Anicteric sclerae. ENT: TM and ear canals normal bilaterally. Moist oral mucosa. Posterior pharynx unremarkable. Neck: Supple. No lymphadenopathy. No bruit. Thyroid unremarkable. Lungs: CTAB. Normal chest excursion. Eupneic respirations. CV: Heart tones S1, S2. RRR. No M/G/R. No peripheral edema. GI: Abdomen is soft and nontender. No palpable mass or organomegaly. : No CVA tenderness. Neuro: CN II through XII grossly intact. Normal speech. No facial droop, tongue is midline. Muscle strength BUE and BLE 5/5. Normal gait. Psych: Normal mood and affect. Normal judgment. Cooperative with exam, follows commands. ALLERGIES: GEMFIBROZIL, LISINOPRIL HEALTH MAINTENANCE - see end of note PREVENTIVE MEDICINE GOALS Medication Reconciliation DUE NOW (Optional) Whole Health Documentation DUE NOW ASSESSMENT/PLAN: Active problems - Computerized Problem List is the source for the followin. Diabetes mellitus type 2 - A1c up to 7.7. Was taking metformin incorrectly. DIL is now managing his medications. Will recheck labs in Mar. Recommend home BS monitoring, ADA diet. 2. TIA - recent symptoms. Continue Eliquis and ASA. 3. Long-term current use of anticoagulant - at high risk for bleeding complications. 4. Benign essential hypertension - BP remains elevated. On max dose amlodipine. Has allergy to ACEI. Start HCTZ daily. Monitor BP at home, keep a log. f/u one month to review. Recommend reducing salt intake. 5. Tobacco use (SNOMED CT 680958458) - advised cessation. Declines intervention at this time. Has LDCT scheduled for next week. 6. 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 Continue PPI. Referral made to GI for eval. 7. sensation of something in throat - EGD showed no stricture. See above. 8. Depression (SNOMED CT 33233988) - hospital stopped his buproprion. Start Effexor. f/u one month. Has appt with next week. Denies SI. 9. Anxiety - with panic attacks. Was started on hydroxyzine in hospital, buproprion dc'd. Has appt with next week. 10. anorexia - appetite is poor, + weight loss. Possibly r/t depressive symptoms. Already on Remeron, starting Effexor today. Ensure ordered BID, referral to nutrition. 11. urinary incontinence, chronic - briefs ordered. Addendum: Patholology results from EGD show + Jc's, mild chronic inflammation and focal intestinal metaplasia, negative for dysplasia. Patient notified of these results. FOLLOW UP: Return to clinic one month and/or sooner PRN UPCOMING APPOINTMENTS: 02/15/2024 09:00 CWM/NO/MHC/[facility] 1 02/15/2024 09:45 CWM/NO/CAT SCAN 04/08/2024 09:30 CWM/NO/VVC/PAIN [facility] No barriers noted; patient understands and agrees to current treatment plan. If patient has any questions, concerns or changes in current health status he/she will call or come [facility] to the [facility]. HM: Medication Reconciliation: Outpatient: Has the patient been taking medications as documented in the EMLR? No: Discrepencies were identified. See below. Essential Medication List for Review used to complete this medication reconciliation. INCLUDED IN THIS LIST: Alphabetical list of active outpatient prescriptions dispensed from this [facility] (local) and dispensed from another [place] or [facility] facility (remote) as well as inpatient orders (local, pending and active), local clinic medications, locally documented non-VA medications, and local prescriptions that have or been discontinued in the past 90 days. - Discrepancies were identified, addressed, and discussed with the patient/caregiver at this encounter. Discrepancies: recently in hospital, started on hydroxyzine, buproprion dc'd - All changes in medications, including all non-VA/Herbal/OTC medications were entered into [facility]. - If there were any medications the patient should no longer take, they were discontinued. - The patient/caregiver was instructed to update this list, discard old lists, and take this list to the next appointment, whether with a VA or non-VA provider. /reginaldo/ DARLENE BOX CERTIFIED NURSE PRACTITIONER Signed: 02/14/2024 13:43 TRACY VILLANUEVA [place]
--- OUTSIDE RECORDS SUMMARY | 2024-08-16 09:27 | XMS_ITS | Encounter Summary ---
Author Name [facility] [place] [facility] [place] Address [address] [place] [address] Care Team Providers Care Travel Insurance Agent Name Role Phone TRACY VILLANUEVA Primary Care [...] PHI MEDEX BRONZ E December 19, 2013 [id number] [phone] GUSTAVO ARAMBULA SR PATIENT [employer] MEDICARE SUPPLEMEN PHI MEDIC ARE SUPPL EMENT Jul 21, 2007 NONE [id number] [phone] Edgar ARAMBULA PATIENT [place] SUPPLEMEN PHI MEDEX BRONZ E December 19, 2013 [id number] [phone] GUSTAVO ARAMBULA SR PATIENT [place] MEDICARE SUPPLEMEN PHI MEDEX BRONZ E December 19, 2013 [id number] Edgar ARAMBULA PATIENT MEDICARE (WNR) MEDICARE (M) PART A Oct 19, 2004 PART A [id number] [phone] Edgar ARAMBULAN PATIENT MEDICARE (WNR) MEDICARE (M) PART B Oct 19, 2004 PART B [id number] Edgar ARAMBULAN PATIENT MEDICARE (WNR) MEDICARE (M) PART A Oct 19, 2004 PART A [id number] Edgar ARAMBULAN PATIENT MEDICARE (WNR) MEDICARE (M) PART B Oct 19, 2004 PART B [id number] Edgar ARAMBULAN PATIENT MEDICARE (WNR) MEDICARE (M) PART A Oct 19, 2004 PART A [id number] [phone] Edgar ARAMBULAN PATIENT MEDICARE (WNR) MEDICARE () PART B Oct 19, 2004 PART B [id number] [phone] Edgar ARAMBULAN PATIENT MEDICARE (WNR) MEDICARE () PART A Oct 19, 2004 PART A [id number] Edgar ARAMBULA PATIENT MEDICARE (WNR) MEDICARE () PART B Oct 19, 2004 PART B [id number] Edgar ARAMBULAN PATIENT MEDICARE (WNR) MEDICARE () PART A Oct 19, 2004 PART A [id number] [phone] Edgar ARAMBULAN PATIENT MEDICARE (WNR) MEDICARE () PART B Oct 19, 2004 PART B [id number] Edgar ARAMBULA PATIENT Selected Encounter This section includes the information on record at [place] for the Encounter. Date/Time Encounter Type Encounter Description Reason Pro vider Source Feb 05, 2024 04:58 PM Outpatient Encounter ADMIN PAT ACTIVTIES (MASNONCT) IHE Encounter Template Text not used by [place] Plan of Treatment: Future Appointments (+ 6 months) and Future Tests (+/- 45 days) The Plan of Treatment section includes future care activities for the patient from all [place] [facility]. This section includes future appointments and [...] - PSYCHIATRY [facility] [place] [facility] Feb 15, 2024 09:45 AM AMBULATORY - NONE [facility] [place] [facility] Mar 07, 2024 09:00 AM AMBULATORY - PSYCHIATRY [facility] [place] [facility] Mar 08, 2024 08:30 AM AMBULATORY - NONE [facility] [place] [facility] Mar 11, 2024 09:00 AM AMBULATORY - MEDICINE [facility] Apr 04, 2024 11:00 AM AMBULATORY - PSYCHIATRY [facility] [place] [facility] Apr 08, 2024 09:30 AM AMBULATORY - MEDICINE [facility] [place] [facility] Apr 10, 2024 10:45 AM AMBULATORY - MEDICINE [facility] [place] [facility] Apr 26, 2024 11:00 AM AMBULATORY - MEDICINE [facility] [place] [facility] Apr 30, 2024 08:30 AM AMBULATORY - PSYCHIATRY [facility] [place] [facility] May 01, 2024 11:00 AM AMBULATORY - NONE [facility] [place] [facility] May 14, 2024 11:30 AM AMBULATORY - MEDICINE [facility] May 31, 2024 11:00 AM AMBULATORY - REHAB MEDICIN E [facility] [place] [facility] May 31, 2024 12:00 PM AMBULATORY - MEDICINE [facility] [place] [facility] Jun 10, 2024 10:00 AM AMBULATORY - MEDICINE [facility] Jun 11, 2024 09:30 AM AMBULATORY - PSYCHIATRY [facility] [place] [facility] Jun 13, 2024 10:00 AM AMBULATORY - MEDICINE [facility] [place] [facility] Jun 19, 2024 11:00 AM AMBULATORY - NONE [facility] [place] [facility] Jun 21, 2024 09:00 AM [facility] Social History: Smoking Status (Most [...] AM VA-TOBACCO NEVER USED [facility] [place] [facility] Tobacco Use History This section includes a history of the smoking, or tobacco-related health factors, that were collected on or before the date of the Encounter. The data comes from the [place] facility where the Encounter took place. Date/Time Smoking Status/Tobac co Use Comment Facility Dec 13, 2022 03:00 PM VA-TOBACCO DOESNT USE WI 30 MIN WAKEUP [facility] [place] [facility] Dec 13, 2022 03:00 PM VA-TOBACCO USE 30 YEARS OR MORE [facility] [place] [facility] Dec 13, 2022 03:00 PM VA-TOBACCO USE ADVICE [facility] [place] [facility] Dec 13, 2022 03:00 PM VA-TOBACCO USE MEDICAL EQUIPMENT SALES NO [facility] [place] [facility] Dec 13, 2022 03:00 PM VA-TOBACCO USE MED NO [facility] [place] [facility] Dec 13, 2022 03:00 PM VA-TOBACCO USER EVERY DAY [facility] [place] [facility] Nov 17, 2021 10:00 AM VA-TOBACCO USE 30 YEARS OR MORE [facility] [place] [facility] Nov 17, 2021 10:00 AM VA-TOBACCO USE ADVICE [facility] [place] [facility] Nov 17, 2021 10:00 AM VA-TOBACCO USE MEDICAL EQUIPMENT SALES NO [facility] [place] [facility] Nov 17, 2021 10:00 AM VA-TOBACCO USE MED NO [facility] [place] [facility] Nov 17, 2021 10:00 AM VA-TOBACCO USE WI 30 MIN OF WAKEUP [facility] [place] [facility] Nov 17, 2021 10:00 AM VA-TOBACCO USER EVERY [facility] Oct 14, 2013 12:55 PM V1-PT NOT INTERESTED IN QUIT TOBACCO USE [facility] [place] [facility] May 07, 2013 05:04 PM CURRENT SMOKER trying to stop [facility] May 07, 2013 05:04 PM V1-PT DECLINES REF TO TOBACCO CESS PRGM [facility] May 07, 2013 05:04 PM V1-PT DECLINES TOBACCO CESSATION MEDS [facility] May 07, 2013 05:04 PM V1-PT READY TO QUIT TOBACCO USE [facility] Dec 03, 2012 08:23 AM V1-PT DECLINES REF TO TOBACCO CESS PRGM [facility] Dec 03, 2012 08:23 AM V1-PT DECLINES TOBACCO CESSATION MEDS [facility] Dec 03, 2012 08:23 AM V1-PT THINKING ABOUT QUIT TOBACCO USE [facility] Jun 05, 2012 08:45 AM CURRENT SMOKER 1/2ppd [facility] Jun 05, 2012 08:45 AM V1-PT DECLINES REF TO TOBACCO CESS PRGM [facility] Jun 05, 2012 08:45 AM V1-PT THINKING ABOUT QUIT TOBACCO USE [facility] Jun 05, 2012 08:45 AM V1-TOBACCO CESS MEDS NOT PRESCRIBED Vet wants to talk to his provider-He is nervous about taking meds to quit- but he is interested in quitting [facility] Nov 25, 2011 09:14 AM V1-PT DECLINES REF TO TOBACCO CESS PRGM [facility] Nov 25, 2011 09:14 AM V1-PT DECLINES TOBACCO CESSATION MEDS [facility] Nov 25, 2011 09:14 AM V1-PT THINKING ABOUT QUIT TOBACCO USE [facility] May 06, 2011 01:02 PM CURRENT SMOKER [facility] [place] [facility] May 06, 2011 01:02 PM V1-PT DECLINES TOBACCO CESSATION MEDS [facility] [place] [facility] May 06, 2011 01:02 PM V1-PT NOT INTERESTED IN QUIT TOBACCO USE [facility] [place] [facility] Sep 24, 2010 08:51 AM V1-PT DECLINES TOBACCO CESSATION MEDS [facility] [place] [facility] Sep 24, 2010 08:51 AM V1-PT THINKING ABOUT QUIT TOBACCO USE [facility] [place] [facility] Mar 22, 2010 07:58 AM CURRENT SMOKER 1/2 ppd [facility] [place] [facility] Feb 25, 2009 12:05 PM QUIT TOBACCO USE IN PAST YEAR [facility] [place] [facility] Aug 26, 2008 09:28 AM CURRENT SMOKER 1/2 ppd [facility] [place] [facility] Aug 26, 2008 09:28 AM V1-PT DECLINES REF TO TOBACCO CESS PRGM [facility] [place] [facility] Aug 26, 2008 09:28 AM V1-PT READY TO QUIT TOBACCO USE [facility] [place] [facility] Dec 19, 2007 10:08 AM V1-PT DECLINES REF TO TOBACCO CESS PRGM [facility] [place] [facility] Dec 19, 2007 10:08 AM V1-PT DECLINES TOBACCO CESSATION MEDS [facility] [place] [facility] Dec 19, 2007 10:08 AM V1-PT THINKING ABOUT QUIT TOBACCO USE [facility] [place] [facility] Sep 11, 2007 11:10 AM CURRENT SMOKER [facility] [place] [facility] Sep 11, 2007 11:10 AM V1-PT DECLINES REF TO TOBACCO CESS PRGM [facility] [place] [facility] Sep 11, 2007 11:10 AM V1-PT DECLINES TOBACCO CESSATION MEDS [facility] [place] [facility] Sep 11, 2007 11:10 AM V1-PT THINKING ABOUT QUIT TOBACCO USE [facility] [place] [facility] Feb 13, 2007 01:46 PM V1-PT DECLINES REF TO TOBACCO CESS PRGM [facility] [place] [facility] Feb 13, 2007 01:46 PM V1-PT DECLINES TOBACCO CESSATION MEDS [facility] Feb 13, 2007 01:46 PM V1-PT THINKING ABOUT QUIT [facility]AC[facility] Oct 02, 2006 08:28 AM QUIT TOBACCO USE IN PAST YEAR 3 months ago [facility] Aug 19, 2005 08:33 AM QUIT TOBACCO USE IN PAST YEAR nonsmoker [facility] Sep 21, 2004 09:54 AM CURRENT SMOKER [facility] Sep 07, 2004 08:07 AM CURRENT SMOKER [facility] Sep 15, 2003 11:21 AM CURRENT SMOKER smokes one pk day [facility] Jul 23, 2003 01:57 PM CURRENT SMOKER [facility] Advance Directives: All historical and current Section [...] Apr 10, 2023 ADVANCE DIRECTIVE ESSIE STARK [facility] W RAD[facility] Apr 19, 2007 ADVANCE DIRECTIVE ELIZABETHSEAMUSJason [facility] Radiology Reports: +/- 30 days of [...] AM CT THORAX W/O CONT: GUSTAVO ARAMBULA [id number] -1940 M Exm Date: FEB 15, 2024@09:56 Req Phys: TRACY VILLANUEVA Pat Loc: CWM/SO/PACT 7 (Req'g Loc) Img Loc: NHM/CT Service: Unknown [place] [facility] [place] [facility] , (Case [id number] COMPLETE) CT THORAX W/O CONT (CT Detailed) CPT:64477 Reason for Study: smoker x 65 years Clinical History: Report Status: Verified Date Reported: FEB 20, 2024 Date Verified: FEB 20, 2024 Glass Designer E-Sig: Report: CT THORAX W/O CONT HISTORY: [...] as above. READING PHYSICIAN: Ck Jean M.D. -[id number] 02/20/2024 12:57 PDT [facility] National Teleradiology Program [phone] (For Medical Practitioner Use Only) Attention Patients / Veterans: If you have questions or concerns about these test results, please contact your ordering provider or primary care team. Primary Diagnostic Code: SIGNIFICANT ABNORMALITY, ATTN NEEDED Primary Interpreting Staff: RADIOLOGY,OUTSIDE SERVICE, Staff Physician / RADIOLOGY,OUTSIDE SERVICE [facility] Encounter Notes: All associated encounter notes This section contains the clinical notes associated to the Encounter. Date/Time Encounter Note(s) Provider Source Feb 05, 2024 04:58 PM ADMINISTRATIVE NOTE: LOCAL TITLE: CCC: SCHEDULING ADMINISTRATION STANDARD TITLE: ADMINISTRATIVE NOTE DATE OF NOTE: FEB 05, 2024@16:58:14 ENTRY DATE: FEB 05, 2024@16:58:14 AUTHOR: CATHRYN REDMOND EXP COSIGNER: URGENCY: STATUS: COMPLETED CCC: SCHEDULING ADMINISTRATION Has ADDENDA Patient Demographics Patient Name: GUSTAVO ARAMBULA Patient Primary Phone: [phone] Patient Primary Address: [address] [place] [address] Patient : 1940 Patient Age: 83 Caller/Recipient Relation to Patient: Caregiver Caller Name: Kylie (home care nurse) Administrative Administrative Note Reason: Other Administrative Note Comments: home care nurse is requesting PCP or nurse reach out to discuss medications. Home care nurse stated the [facility] Medications have discrepancies. Kylie [phone] /reginaldo/ CATHRYN REDMOND VISN [facility] AMSA Signed: 02/05/2024 16:58 Receipt Acknowledged By: 02/06/2024 13:28 /reginaldo/ RABIA MANN [facility] 02/08/2024 15:43 /reginaldo/ ZACHARY ABBOTT RN REGISTERED NURSE 02/08/2024 ADDENDUM STATUS: COMPLETED to be scheduled for earlier appt to discuss medications since hospitalization. /reginaldo/ ZACHARY ABBOTT RN REGISTERED NURSE Signed: 02/08/2024 15:44 CATHRYN REDMOND [facility]
--- OUTSIDE RECORDS SUMMARY | 2024-08-16 09:28 | XMS_ITS | Encounter Summary ---
Author Name [facility] [place] Address [address] [place] [address] Care Team Providers Care Manager In Training Name Role Phone TRACY VILLANUEVA Primary Care [...] PHI MEDEX BRONZ E December 19, 2013 [id number] [phone] GUSTAVO ARAMBULA SR PATIENT [employer] MEDICARE SUPPLEMEN PHI MEDIC ARE SUPPL EMENT Jul 21, 2007 NONE [id number] Edgar ARAMBULA PATIENT [place] MED[place] SUPPLEMEN PHI MEDEX BRONZ E December 19, 2013 [id number] GUSTAVO ARAMBULA SR PATIENT [place] MEDICARE SUPPLEMEN PHI MEDEX BRONZ E December 19, 2013 [id number] Edgar ARAMBULA PATIENT MEDICARE (WNR) MEDICARE () PART A Oct 19, 2004 PART A [id number] Edgar ARAMBULAN PATIENT MEDICARE (WNR) MEDICARE (M) PART B Oct 19, 2004 PART B [id number] Edgar ARAMBULA [place] PATIENT MEDICARE ([place]NR) MEDICARE () PART A Oct 19, 2004 PART A [id number] Edgar ARAMBULAN PATIENT MEDICARE (WNR) MEDICARE () PART B Oct 19, 2004 PART B [id number] Edgar ARAMBULAN PATIENT MEDICARE (WNR) MEDICARE () PART B Oct 19, 2004 PART B [id number] Edgar ARAMBULA [place] PATIENT MEDICARE ([place]NR) MEDICARE () PART A Oct 19, 2004 PART A [id number] Edgar ARAMBULAN PATIENT MEDICARE (WNR) MEDICARE () PART A Oct 19, 2004 PART A [id number] Edgar ARAMBULA PATIENT MEDICARE (WNR) MEDICARE () PART B Oct 19, 2004 PART B [id number] Edgar ARAMBULAN PATIENT MEDICARE (WNR) MEDICARE () PART A Oct 19, 2004 PART A [id number] [phone] Edgar ARAMBULAN PATIENT MEDICARE (WNR) MEDICARE () PART B Oct 19, 2004 PART B [id number] Edgar ARAMBULAN PATIENT Selected Encounter This section includes the information on record at [place] for the Encounter. Date/Time Encounter Type Encounter Description Reason Pro vider Source December 25, 2023 12:00 AM Outpatient Encounter EVENT (HISTORICAL) IHE Encounter Template Text not used by [...] 20 appointments. The data comes from all [place] treatment facilities. Appointment Date/Time Appointment Type Appointme nt Facility Name Feb 05, 2024 10:00 AM AMBULATORY [facility] MEDICINE [facility] [place] [facility] Feb 13, 2024 11:30 AM AM[facility]ORY - [facility]ICINE [facility] Feb 15, 2024 09:00 AM AMBULATORY - PSYCHIATRY [facility] [place] [facility] Feb 15, 2024 09:45 AM AMBULATORY - NONE [facility] [place] [facility] Mar 07, 2024 09:00 AM AMBULATORY - PSYCHIATRY [facility] [place] [facility] Mar 08, 2024 08:30 AM AMBULATORY - NONE [facility] [place] [facility] Mar 11, 2024 09:00 AM AMBULATORY - MEDICINE [facility] Apr 04, 2024 11:00 AM AMBULATORY - PSYCHIATRY [facility] [place] [facility] Apr 08, 2024 09:30 AM AMBULATORY - MEDICINE [facility] [place] [facility] Apr 10, 2024 10:45 AM AMBULATORY - MEDICINE [facility] [place] [facility] Apr 26, 2024 11:00 AM AMBULATORY - MEDICINE [facility] [place] [facility] Apr 30, 2024 08:30 AM AMBULATORY - PSYCHIATRY [facility] [place] [facility] May 01, 2024 11:00 AM AMBULATORY - NONE [facility] [place] [facility] May 14, 2024 11:30 AM AMBULATORY - MEDICINE [facility] May 31, 2024 11:00 AM AMBULATORY - REHAB MEDICIN E [facility] [place] [facility] May 31, 2024 12:00 PM AMBULATORY - MEDICINE [facility] [place] [facility] Jun 10, 2024 10:00 AM AMBULATORY - MEDICINE [facility] Jun 11, 2024 09:30 AM AMBULATORY - PSYCHIATRY [facility] [place] [facility] Jun 13, 2024 10:00 AM AMBULATORY - MEDICINE [facility] [place] [facility] Jun 19, 2024 11:00 AM AMBULATORY - NONE [facility] Lab Results: +/- 30 days of the encounter This section includes the Chemistry and Hematology Lab Results on record with [place] for the patient. Radiology Reports and Pathology Reports are provided separately, in subsequent sections. Lab Results This section contains the Chemistry/Hematology Results that were resulted 30 days before or 30 daysafter the date of the Encounter. Date/Time Source Result Type Result - Unit Interpretation Reference Range Comment December 25, 2023 09:26 AM [facility] FERRITIN Specimen Type: SERUM No comment entered. Ordering Provider: TRACY VILLANUEVA Report Released Date/Time: Dec 19, 2023 08:37 AM Reporting Lab: [address] [address] Performing Lab: [address] [address] FERRITIN 25 ng/mL 20-300 December 25, 2023 09:26 AM [facility] HEMOGLOBIN A1C PANEL Specimen Type: BLOOD Comment: Values obtained from A1C measurements can vary. For atypical A1C assays, a reported value of 7.0 could actually be between 6.72 and 7.28 if measured by a reference method. A reported value of 9.0 could actually be between 8.73 and 9.27. Ref: http://www.ngs p.org/CAPdata. asp Ordering Provider: TRACY VILLANUEVA Report Released Date/Time: Dec 19, 2023 08:37 AM Reporting Lab: [address] [address] Performing Lab: [address] [address] HEMOGLOBIN A1C 7.7 H 4.0-5.6 December 25, 2023 09:26 AM [facility] LIVER FUNCTION Specimen Type: SERUM No comment entered. Ordering Provider: TRACY VILLANUEVA Report Released Date/Time: Dec 19, 2023 08:37 AM Reporting Lab: [address] [address] Performing Lab: [address] [address] PROTEIN,TOTAL 7.0 g/dL 6.0-8.3 ALBUMIN 3.9 g/dL 3.5-5.0 ALKALINE PHOSPHATASE 90 U/L 40-150 AST 17 U/L 5-34 ALT 20 U/L BILIRUBIN, TOTAL 0.6 mg/dL 0.2-1.2 December 25, 2023 09:26 AM [facility] BASIC METABOLIC PANEL (non-fasting) Spe cimen Type: SERUM No comment entered. Ordering Provider: TRACY VILLANUEVA Report Released Date/Time: Dec 19, 2023 08:37 AM Reporting Lab: [address] [address] Performing Lab: [address] [address] UREA NITROGEN 12 mg/dL 7-25 GLUCOSE 240 mg/dL H 65-100 SODIUM 135 mmol/L 135-145 POTASSIUM 4.2 mmol/L 3.5-5.0 CHLORIDE 102 mmol/L 100-110 CO2 24 meq/L 20-30 CREATININE, Serum 0.78 mg/dL 0.50-1.40 eGFR(CKD-EPI 2020) 88 mL/min >60 December 25, 2023 09:26 AM [facility] CBC Specimen Type: BLOOD No comment entered. Ordering Provider: TRACY VILLANUEVA Report Released Date/Time: Dec 19, 2023 08:37 AM Reporting Lab: [address] [address] Performing Lab: [address] [address] WBC 9.74 10*3/uL 4.50-11.00 RBC 4.50 10*6/uL 4.23-5.66 HGB 12.5 g/dL L 12.8-17 HCT 36.2 L 39.2-50.4 MCV 80.4 fL L 82-99 MCHC 34.5 g/dL 30.8-35.1 PLT 275 10*3/uL 140-360 RDW-CV 13.7 12.0-16.0 MCH 27.8 pg 26.2-32.6 December 25, 2023 09:26 AM [facility] MICROALBUMIN CREATININE RATIO PANEL Spe cimen Type: URINE No comment entered. Ordering Provider: TRACY VILLANUEVA Report Released Date/Time: Dec 19, 2023 08:37 AM Reporting Lab: [facility] [place] [facility] [address] [facility] [address] Performing Lab: [facility] [place] [facility] [address] [facility] [address] MICROALBUMIN/C REATININE RATIO 23.9 mg/g 0-29.9 MICROALBUMIN,Q UANTITATIVE 0.7 mg/dL RR UNAVAIL CREATININE URINE 29.30 mg/dL Social History: Smoking Status (Most current) and Tobacco Use (All prior to encounter date) This section includes the most current, and the historical, smoking and tobacco- related health factors from the [place] facility where the Encounter took place. Current Smoking Status This section includes the most current smoking, or tobacco-related health factor, from the [place] facility where the Encounter took place. Date/Time Current Smoking Status Comment Facil ity December 25, 2023 09:05 AM [facility] Tobacco Use History This section includes a history of the smoking, or tobacco-related health factors, that were collected on or before the date of the Encounter. The data comes from the [place] facility where the Encounter took place. Date/Time Smoking Status/Tobac co Use Comment Facility Dec 13, 2022 03:00 PM VA-TOBACCO DOESNT USE WI 30 MIN WAKEUP [facility] [place] [facility] Dec 13, 2022 03:00 PM VA-TOBACCO USE 30 YEARS OR MORE [facility] [place] [facility] Dec 13, 2022 03:00 PM VA-TOBACCO USE ADVICE [facility] [place] [facility] Dec 13, 2022 03:00 PM VA-TOBACCO USE [employer] CO[employer] NO [facility] [place] [facility] Dec 13, 2022 03:00 PM VA-TOBACCO USE MED NO [facility] [place] [facility] Dec 13, 2022 03:00 PM VA-TOBACCO USER EVERY DAY [facility] [place] [facility] Nov 17, 2021 10:00 AM VA-TOBACCO USE 30 YEARS OR MORE [facility] [place] [facility] Nov 17, 2021 10:00 AM VA-TOBACCO USE ADVICE [facility] [place] [facility] Nov 17, 2021 10:00 AM VA-TOBACCO USE [employer] NO [facility] Nov 17, 2021 10:00 AM VA-TOBACCO USE MED NO [facility] Nov 17, 2021 10:00 AM VA-TOBACCO USE WI 30 MIN OF WAKEUP [facility] Nov 17, 2021 10:00 AM VA-TOBACCO USER EVERY DAY [facility] Oct 14, 2013 12:55 PM V1-PT NOT INTERESTED IN QUIT TOBACCO USE [facility] May 07, 2013 05:04 PM CURRENT SMOKER trying to stop [facility] May 07, 2013 05:04 PM V1-PT DECLINES REF TO TOBACCO CESS PRGM [facility] May 07, 2013 05:04 PM V1-PT DECLINES TOBACCO CESSATION MEDS [facility] May 07, 2013 05:04 PM V1-PT READY TO QUIT TOBACCO USE [facility] Dec 03, 2012 08:23 AM V1-PT DECLINES REF TO TOBACCO CESS PRGM [facility] Dec 03, 2012 08:23 AM V1-PT DECLINES TOBACCO CESSATION MEDS [facility] Dec 03, 2012 08:23 AM V1-PT THINKING ABOUT QUIT TOBACCO USE [facility] Jun 05, 2012 08:45 AM CURRENT SMOKER 1/2ppd [facility] Jun 05, 2012 08:45 AM V1-PT DECLINES REF TO TOBACCO CESS PR[facility] Jun 05, 2012 08:45 AM V1-PT THINKING ABOUT QUIT TOBACCO USE [facility] Jun 05, 2012 08:45 AM V1-TOBACCO CESS MEDS NOT PRESCRIBED Vet wants to talk to his provider-He is nervous about taking meds to quit- but he is interested in quitting [facility] Nov 25, 2011 09:14 AM V1-PT DECLINES REF TO TOBACCO CESS PRGM [facility] [place] [facility] Nov 25, 2011 09:14 AM V1-PT DECLINES TOBACCO CESSATION MEDS [facility] [place] [facility] Nov 25, 2011 09:14 AM V1-PT THINKING ABOUT QUIT TOBACCO USE [facility] [place] [facility] May 06, 2011 01:02 PM CURRENT SMOKER [facility] [place] [facility] May 06, 2011 01:02 PM V1-PT DECLINES TOBACCO CESSATION MEDS [facility] [place] [facility] May 06, 2011 01:02 PM V1-PT NOT INTERESTED IN QUIT TOBACCO USE [facility] [place] [facility] Sep 24, 2010 08:51 AM V1-PT DECLINES TOBACCO CESSATION MEDS [facility] [place] [facility] Sep 24, 2010 08:51 AM V1-PT THINKING ABOUT QUIT TOBACCO USE [facility] [place] [facility] Mar 22, 2010 07:58 AM CURRENT SMOKER 1/2 ppd [facility] [place] [facility] Feb 25, 2009 12:05 PM QUIT TOBACCO USE IN PAST YEAR [facility] [place] [facility] Aug 26, 2008 09:28 AM CURRENT SMOKER 1/2 ppd [facility] [place] [facility] Aug 26, 2008 09:28 AM V1-PT DECLINES REF TO TOBACCO CESS PR[facility] [place] [facility] Aug 26, 2008 09:28 AM V1-PT READY TO QUIT TOBACCO USE [facility] [place] [facility] Dec 19, 2007 10:08 AM V1-PT DECLINES REF TO TOBACCO CESS PRGM [facility] [place] [facility] Dec 19, 2007 10:08 AM V1-PT DECLINES TOBACCO CESSATION MEDS [facility] [place] [facility] Dec 19, 2007 10:08 AM V1-PT THINKING ABOUT QUIT TOBACCO USE [facility] [place] [facility] Sep 11, 2007 11:10 AM CURRENT SMOKER [facility] [place] [facility] Sep 11, 2007 11:10 AM V1-PT DECLINES REF TO TOBACCO CESS PRGM [facility] [place] [facility] Sep 11, 2007 11:10 AM V1-PT DECLINES TOBACCO CESSATION MEDS [facility] [place] [facility] Sep 11, 2007 11:10 AM V1-PT THINKING ABOUT QUIT TOBACCO USE [facility] Feb 13, 2007 01:46 PM V1-PT DECLINES REF TO TOBACCO CESS PRGM [facility] Feb 13, 2007 01:46 PM V1-PT DECLINES TOBACCO CESSATION MEDS [facility] Feb 13, 2007 01:46 PM V1-PT THINKING ABOUT QUIT TOBACCO USE [facility] Oct 02, 2006 08:28 AM QUIT TOBACCO USE IN PAST YEAR 3 months ago [facility] Aug 19, 2005 08:33 AM QUIT TOBACCO USE IN PAST YEAR nonsmoker [facility] Sep 21, 2004 09:54 AM CURRENT SMOKER [facility] Sep 07, 2004 08:07 AM CURRENT SMOKER [facility] Sep 15, 2003 11:21 AM CURRENT SMOKER smokes one pk day [facility] Jul 23, 2003 01:57 PM CURRENT SMOKER [facility] Advance Directives: All historical and current Section Date Range: From patient's date of to the date document was created. This section includes ALL of a patient's completed or amended [place] Advance and Rescinded Directives. The entries below indicate that a directive exists for the patient, but an actual copy is not included with this document. The data comes from all [place] facilities. Date Advance Directives Provider Source Apr 10, 2023 ADVANCE DIRECTIVE ESSIE STARK [facility] Apr 19, 2007 ADVANCE DIRECTIVE VICTORIA JOHNSON [facility]
--- OUTSIDE RECORDS SUMMARY | 2024-08-16 09:28 | XMS_ITS | Encounter Summary ---
Author Name [facility] [place] [facility] [place] Address [address] [place] [address] Care Team Providers Care Manual Writer Name Role Phone TRACY VILLANUEVA Primary Care [...] PHI MEDEX BRONZ E December 19, 2013 [id number] [address] ARAMBULA SR PATIENT [employer] MEDICARE SUPPLEMEN PHI MEDIC ARE SUPPL EMENT Jul 21, 2007 NONE [id number] [phone] Edgar ARAMBULA [place]IENT [place] SUPPLEMEN PHI MEDEX BRONZ E December 19, 2013 [id number] GUSTAVO ARAMBULA SR PATIENT [place] MEDICARE SUPPLEMEN PHI MEDEX BRONZ E December 19, 2013 [id number] Edgar ARAMBULA [place] PATIENT MEDICARE (WNR) MEDICARE () PART A Oct 19, 2004 PART A [id number] [id number] Edgar ARAMBULA [place] PAT[place] MEDICARE ([place]NR) MEDICARE (M) PART B Oct 19, 2004 PART B [id number] [id number] Edgar ARAMBULA [place] PATIENT MEDICARE (WNR) MEDICARE () PART A Oct 19, 2004 PART A [id number] Edgar ARAMBULA [place] PAT[place] MEDICARE ([place]) MEDICARE () PART B Oct 19, 2004 PART B [id number] Edgar ARAMBULA [place] PAT[place] MEDICARE ([place]) MEDICARE () PART A Oct 19, 2004 PART A [id number] Edgar ARAMBULA [place] PAT[place] MEDICARE ([place]) MEDICARE () PART B Oct 19, 2004 PART B [id number] Edgar ARAMBULA [place] PAT[place] MEDICARE ([place]NR) MEDICARE () PART A Oct 19, 2004 PART A [id number] Edgar ARAMBULA [place] PATIENT MEDICARE ([place]) MEDICARE () PART B Oct 19, 2004 PART B [id number] Edgar ARAMBULA [place] PAT[place] MEDICARE ([place]) MEDICARE () PART A Oct 19, 2004 PART A [id number] Edgar ARAMBULAN PATIENT MEDICARE (WNR) MEDICARE () PART B Oct 19, 2004 PART B [id number] Edgar ARAMBULAN PATIENT Selected Encounter This section includes the [place] on [place] at [place] for the Encounter. 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 Date/Time Primary/Secondary Diagnosis Diagnosis Name Provider Source Dec 07, 2023 03:40 PM PRIMARY Sleep apnea, unspecified FELISHA WALKER [facility] [place] [facility] Plan of Treatment: Future Appointments (+ 6 months) and Future Tests (+/- 45 days) The Plan of Treatment section includes future care activities for the [place] from all [place] [facility] [facility]. This section includes future appointments and future orders which are active, pending or scheduled. Future Appointments This section includes appointments that were scheduled to occur 6 months from the date of the Encounter, up to a maximum of 20 appointments. The data comes from all [place] treatment facilities. Appointment Date/Time Appointment Type Appointme nt Facility Name December 21, 2023 09:00 AM AMBULATORY - PSYCHIATRY [facility] [place] [facility] December 25, 2023 09:00 AM AMBULATORY - MEDICINE [facility] Feb 05, 2024 10:00 AM AMBULATORY - MEDICINE [facility] [place] [facility] Feb 13, 2024 11:30 AM AMBULATORY [facility] MED[facility] Feb 15, 2024 09:00 AM AMBULATORY [...] 2024 11:30 AM AMBULATORY - MEDICINE [facility] [place] May 31, 2024 11:00 AM AMBULATORY - REHAB MEDICIN E [facility] [place] [facility] May 31, 2024 12:00 PM AMBULATORY - MEDICINE [facility] Lab Results: +/- 30 days of the encounter This section includes the Chemistry and Hematology Lab Results on record with [place] for the patient. Radiology Reports and Pathology Reports are provided separately, in subsequent sections. Lab Results This section contains the Chemistry/Hematology Results that were resulted 30 days before or 30 daysafter the date of the Encounter. Date/Time Source Result Type Result - Unit Interpretation Reference Range Comment December 25, 2023 09:26 AM [facility] FERRITIN Specimen Type: SERUM No comment entered. Ordering Provider: TRACY VILLANUEVA Report Released Date/Time: Dec 19, 2023 08:37 AM Reporting [facility] [address] [address] Performing Lab: [facility] [address] [address] FERRITIN 25 ng/mL 20-300 December 25, 2023 09:26 AM [facility] HEMOGLOBIN A1C PANEL Specimen Type: BLOOD Comment: [...] Dec 19, 2023 08:37 AM Reporting Lab: [place] [facility] [address] [address] Performing Lab: [facility] [address] [address] HEMOGLOBIN A1C 7.7 H 4.0-5.6 December 25, 2023 09:26 AM [facility] LIVER FUNCTION Specimen Type: SERUM No comment entered. Ordering Provider: TRACY VILLANUEVA Report Released Date/Time: Dec 19, 2023 08:37 AM Reporting Lab: [facility] [address] [address] Performing Lab: [address] [address] PROTEIN,TOTAL 7.0 g/dL 6.0-8.3 ALBUMIN 3.9 g/dL 3.5-5.0 ALKALINE PHOSPHATASE 90 U/L 40-150 AST 17 U/L 5-34 ALT 20 U/L BILIRUBIN, TOTAL 0.6 mg/dL 0.2-1.2 December 25, 2023 09:26 AM [facility] CBC Specimen Type: BLOOD No comment entered. Ordering Provider: TRACY VILLANUEVA Report Released Date/Time: Dec 19, 2023 08:37 AM Reporting Lab: [address] [address] Performing Lab: [address] [address] WBC 9.74 10*3/uL 4.50-11.00 RBC 4.50 10*6/uL 4.23-5.66 HGB 12.5 g/dL L 12.8-17 HCT 36.2 L 39.2-50.4 MCV 80.4 fL L 82-99 MCHC 34.5 g/dL 30.8-35.1 PLT 275 10*3/uL 140-360 RDW-CV 13.7 12.0-16.0 MCH 27.8 pg 26.2-32.6 December 25, 2023 09:26 AM [facility] BASIC METABOLIC PANEL (non-fasting) Spe cimen Type: SERUM No comment entered. Ordering Provider: TRACY VILLANUEVA Report Released Date/Time: Dec 19, 2023 08:37 AM Reporting Lab: [address] [address] Performing Lab: [address] [address] UREA NITROGEN 12 mg/dL 7-25 GLUCOSE 240 mg/dL H 65-100 SODIUM 135 mmol/L 135-145 POTASSIUM 4.2 mmol/L 3.5-5.0 CHLORIDE 102 mmol/L 100-110 CO2 24 meq/L 20-30 CREATININE, Serum 0.78 mg/dL 0.50-1.40 eGFR(CKD-EPI 2020) 88 mL/min >60 December 25, 2023 09:26 AM [facility] MICROALBUMIN CREATININE RATIO PANEL Spe cimen Type: URINE No comment entered. Ordering Provider: TRACY VILLANUEVA Report Released Date/Time: Dec 19, 2023 08:37 AM Reporting Lab: [place] [facility] [facility] [place] [facility] [address] [address] Performing Lab: [place] [facility] [address] [address] MICROALBUMIN/C REATININE RATIO 23.9 mg/g 0-29.9 MICROALBUMIN,Q UANTITATIVE 0.7 mg/dL RR UNAVAIL CREATININE URINE 29.30 mg/dL Social History: Smoking Status (Most current) and Tobacco Use (All prior to encounter date) This section includes the most current, and the historical, smoking and tobacco- related health factors from the [place] facility where the Encounter took place. Current Smoking Status This section includes the most current smoking, or tobacco-related health factor, from the [place] facility where the Encounter took place. Date/Time Current Smoking Status Comment Lopez it Dec 13, 2022 03:00 PM VA-TOBACCO USER EVERY DAY [place] [facility] Tobacco Use History This section includes a history of the smoking, or tobacco-related health factors, that were collected on or before the date of the Encounter. The data comes from the [place] facility where the Encounter took place. Date/Time Smoking Status/Tobac co Use Comment Facility Dec 13, 2022 03:00 PM VA-TOBACCO USE 30 YEARS OR MORE [facility] [place] [facility] Dec 13, 2022 03:00 PM VA-TOBACCO USE ADVICE [place] [facility] [place] [facility] Dec 13, 2022 03:00 PM VA-TOBACCO USE MORNING NANNY NO [facility] [place] [facility] Dec 13, 2022 03:00 PM VA-TOBACCO USE MED NO [facility] [place] [facility] Dec 13, 2022 03:00 PM VA-TOBACCO USER EVERY DAY [facility] [place] [facility] Nov 17, 2021 10:00 AM VA-TOBACCO USE 30 YEARS OR MORE [facility] [place] [facility] Nov 17, 2021 10:00 AM VA-TOBACCO USE ADVICE [facility] [place] [facility] Nov 17, 2021 10:00 AM VA-TOBACCO USE MORNING NANNY NO [facility] Nov 17, 2021 10:00 AM VA-TOBACCO USE MED NO [facility] Nov 17, 2021 10:00 AM VA-TOBACCO USE WI 30 MIN [facility] Nov 17, 2021 10:00 AM VA-TOBACCO USER EVERY DAY [facility] Oct 14, 2013 12:55 PM V1-PT NOT INTERESTED IN QUIT TOBACCO USE [facility] May 07, 2013 05:04 PM CURRENT SMOKER trying to stop [facility] May 07, 2013 05:04 PM V1-PT DECLINES REF TO TOBACCO CESS PRGM [facility] May 07, 2013 05:04 PM V1-PT DECLINES TOBACCO CESSATION MEDS [facility] May 07, 2013 05:04 PM V1-PT READY TO QUIT TOBACCO USE [facility] Dec 03, 2012 08:23 AM V1-PT DECLINES REF TO TOBACCO CESS [facility] Dec 03, 2012 08:23 AM V1-PT DECLINES TOBACCO CESSATION MEDS [facility] Dec 03, 2012 08:23 AM V1-PT THINKING ABOUT QUIT TOBACCO USE [facility] Jun 05, 2012 08:45 AM CURRENT SMOKER 1/2ppd [facility] Jun 05, 2012 08:45 AM V1-PT DECLINES REF TO TOBACCO CESS [facility] Jun 05, 2012 08:45 AM V1-PT THINKING ABOUT QUIT TOBACCO USE [facility] Jun 05, 2012 08:45 AM V1-TOBACCO CESS MEDS NOT PRESCRIBED Vet wants to talk to his provider-He is nervous about taking meds to quit- but he is interested in quitting [facility] Nov 25, 2011 09:14 AM V1-PT DECLINES REF TO TOBACCO CESS PRGM [facility] [place] [facility] Nov 25, 2011 09:14 AM V1-PT DECLINES TOBACCO CESSATION MEDS [facility] [place] [facility] Nov 25, 2011 09:14 AM V1-PT THINKING ABOUT QUIT TOBACCO USE [facility] [place] [facility] May 06, 2011 01:02 PM CURRENT SMOKER [facility] [place] [facility] May 06, 2011 01:02 PM V1-PT DECLINES TOBACCO CESSATION MEDS [facility] [place] [facility] May 06, 2011 01:02 PM V1-PT NOT INTERESTED IN QUIT TOBACCO USE [facility] [place] [facility] Sep 24, 2010 08:51 AM V1-PT DECLINES TOBACCO CESSATION MEDS [facility] [place] [facility] Sep 24, 2010 08:51 AM V1-PT THINKING ABOUT QUIT TOBACCO USE [facility] [place] [facility] Mar 22, 2010 07:58 AM CURRENT SMOKER 1/2 ppd [facility] [place] [facility] Feb 25, 2009 12:05 PM QUIT TOBACCO USE IN PAST YEAR [facility] [place] [facility] Aug 26, 2008 09:28 AM CURRENT SMOKER 1/2 ppd [facility] [place] [facility] Aug 26, 2008 09:28 AM V1-PT DECLINES REF TO TOBACCO CESS PRGM [place] [facility] [place] [facility] Aug 26, 2008 09:28 AM V1-PT READY TO QUIT TOBACCO USE [facility] [place] [facility] Dec 19, 2007 10:08 AM V1-PT DECLINES REF TO TOBACCO CESS PRGM [facility] [place] [facility] Dec 19, 2007 10:08 AM V1-PT DECLINES TOBACCO CESSATION MEDS [facility] [place] [facility] Dec 19, 2007 10:08 AM V1-PT THINKING ABOUT QUIT TOBACCO USE [facility] [place] [facility] Sep 11, 2007 11:10 AM CURRENT SMOKER [facility] [place] [facility] Sep 11, 2007 11:10 AM V1-PT DECLINES REF TO TOBACCO CESS PRGM [facility] [place] [facility] Sep 11, 2007 11:10 AM V1-PT DECLINES TOBACCO CESSATION MEDS [facility] Sep 11, 2007 11:10 AM V1-PT THINKING ABOUT QUIT [facility]BACCO [facility] Feb 13, 2007 01:46 PM V1-PT DECLINES REF TO TOBACCO CESS [facility] Feb 13, 2007 01:46 PM V1-PT DECLINES TOBACCO CESSATION MEDS [facility] Feb 13, 2007 01:46 PM V1-PT THINKING ABOUT QUIT TOBACCO USE [facility] Oct 02, 2006 08:28 AM QUIT TOBACCO USE IN PAST YEAR 3 months ago [facility] Aug 19, 2005 08:33 AM QUIT TOBACCO USE IN PAST YEAR nonsmoker [facility] Sep 21, 2004 09:54 AM CURRENT SMOKER [facility] Sep 07, 2004 08:07 AM CURRENT SMOKER [facility] Sep 15, 2003 11:21 AM CURRENT SMOKER smokes one pk day [facility] Jul 23, 2003 01:57 PM CURRENT SMOKER [facility] Advance Directives: All historical and current Section Date Range: From patient's date of to the date document was created. This section includes ALL of a patient's completed or amended [place] Advance and Rescinded Directives. The entries below indicate that a directive exists for the patient, but an actual copy is not included with this document. The data comes from all [place] facilities. Date Advance Directives Provider Source Apr 10, 2023 ADVANCE DIRECTIVE [facility] Apr 19, 2007 ADVANCE DIRECTIVE [facility] Encounter Notes: All associated encounter notes This section contains the clinical notes associated to the Encounter. Date/Time Encounter Note(s) Provider Source Dec 07, 2023 03:37 PM RESPIRATORY THERAP Y NOTE: LOCAL TITLE: RESPIRATORY THERAPY NOTE(BLANK) STANDARD TITLE: RESPIRATORY THERAPY NOTE DATE OF NOTE: DEC 07, 2023@15:37 ENTRY DATE: DEC 07, 2023@15:37:53 AUTHOR: ST AMANT,FELISHA P EXP COSIGNER: URGENCY: STATUS: COMPLETED [place] diagnosed with sleep apnea will have Auto-CPAP prescription renewed for 1 year using AirView. is using [employer] Airsense 11 set to APAP @ 7-10 cmH2O. AirView data follows note. [place] will be resupplied. Written cleaning, resupply schedule and contact information will be sent. will be scheduled for a follow-up via self-alert system to renew APAP prescription in one year. Vet will be followed in clinic as needed as well as via the Airview program. AirView Compliance Report Usage 11/07/2023 - 12/06/2023 Usage days 27/30 days (90%) >= 4 hours 12 days (40%) < 4 hours 15 days (50%) Usage hours 116 hours 27 minutes Average usage (total days) 3 hours 53 minutes Average usage (days used) 4 hours 19 minutes Median usage (days used) 3 hours 47 minutes Total used hours (value since last reset - 12/06/2023) 1,499 hours AirSense 11 AutoSet Serial number [id number] Mode AutoSet Min Pressure 7 cmH2O Max Pressure 10 cmH2O EPR Fulltime EPR level 3 Response Soft Therapy Pressure - cmH2O Median: 7.4 95th percentile: 8.5 Maximum: 8.9 Leaks - L/min Median: 21.4 95th percentile: 39.2 Maximum: 45.0 Events per hour AI: 0.8 HI: 0.2 AHI: 1.0 Apnea Index Central: 0.0 Obstructive: 0.6 Unknown: 0.2 RERA Index 0.5 [place] respiration (average duration per night) 0 minutes (0%) /reginaldo/ FELISHA WALKER RESPIRATORY THERAPIST Signed: 12/07/2023 15:40 FELISHA WALKER [place] [facility] [place] [facility]
--- OUTSIDE RECORDS SUMMARY | 2024-08-16 09:28 | XMS_ITS | Encounter Summary ---
Author Name [facility] [place] [facility] [place] Address [address] [place] [address] Care Team Providers Care Regulator Inspector Name Role Phone TRACY VILLANUEVA Primary Care [...] PHI MEDEX BRONZ E December 19, 2013 [id number] GUSTAVO ARAMBULA SR PATIENT [employer] CASUALTY MEDICARE SUPPLEMEN PHI MEDIC ARE SUPPL EMENT Jul 21, 2007 NONE [id number] [phone] Edgar ARAMBULA [place] SUPPLE[place] PHI MEDEX BRONZ E December 19, 2013 [id number] GUSTAVO ARAMBULA SR PATIENT [place] MEDICARE SUPPLEMEN PHI MEDEX BRONZ E December 19, 2013 [id number] Edgar ARAMBULA PATIENT MEDICARE (WNR) MEDICARE () PART A Oct 19, 2004 PART A [id number] Edgar ARAMBULAN PATIENT MEDICARE (WNR) MEDICARE () PART B Oct 19, 2004 PART B [id number] Edgar ARAMBULA [place] PATIENT MEDICARE ([place]) MEDICARE () PART A Oct 19, 2004 PART A [id number] [id number] Edgar ARAMBULAN PATIENT MEDICARE (WNR) MEDICARE () PART B Oct 19, 2004 PART B [id number] [phone] [id number] Edgar ARAMBULAN PATIENT MEDICARE (WNR) MEDICARE () PART A Oct 19, 2004 PART A [id number] [id number] Edgar ARAMBULA [place] PATIENT MEDICARE ([place]) MEDICARE () PART B Oct 19, 2004 PART B [id number] Edgar ARAMBULAN PATIENT MEDICARE (WNR) MEDICARE () PART A Oct 19, 2004 PART A [id number] [phone] Edgar ARAMBULA PATIENT MEDICARE (WNR) MEDICARE () PART B Oct 19, 2004 PART B [id number] [phone] Edgar ARAMBULAN PATIENT MEDICARE (WNR) MEDICARE () PART A Oct 19, 2004 PART A [id number] Edgar ARAMBULAN PATIENT MEDICARE (WNR) MEDICARE () PART B Oct 19, 2004 PART B [id number] Edgar ARAMBULAN PATIENT Selected Encounter This section includes the information on record at [place] for the Encounter. Date/Time Encounter Type Encounter Description Reason Pro vider Source December 25, 2023 09:05 AM Outpatient Encounter PRIMARY CARE/MEDICINE IHE Encounter [...] - MEDICINE [facility] [place] [facility] Feb 13, 2024 11:30 AM [facility] Feb 15, 2024 09:00 AM AMBULATORY - PSYCHIATRY [facility] [place] [facility] Feb 15, 2024 09:45 AM AMBULATORY - NONE [facility] [place] [facility] Mar 07, 2024 09:00 AM AMBULATORY - PSYCHIATRY [facility] [place] [facility] Mar 08, 2024 08:30 AM AMBULATORY - NONE [facility] [place] [facility] Mar 11, 2024 09:00 AM AMBULATORY - MEDICINE [facility] Apr 04, 2024 11:00 AM AMBULATORY - PSYCHIATRY [facility] [place] [facility] Apr 08, 2024 09:30 AM AMBULATORY - MEDICINE [facility] [place] [facility] Apr 10, 2024 10:45 AM AMBULATORY - MEDICINE [facility] [place] [facility] Apr 26, 2024 11:00 AM AMBULATORY - MEDICINE [facility] [place] [facility] Apr 30, 2024 08:30 AM AMBULATORY - PSYCHIATRY [facility] [place] [facility] May 01, 2024 11:00 AM AMBULATORY - NONE [facility] [place] [facility] May 14, 2024 11:30 AM AMBULATORY - MEDICINE [facility] May 31, 2024 11:00 AM AMBULATORY - REHAB MEDICIN E [facility] [place] [facility] May 31, 2024 12:00 PM AMBULATORY - MEDICINE [facility] [place] [facility] Jun 10, 2024 10:00 AM AMBULATORY - MEDICINE [facility] Jun 11, 2024 09:30 AM AMBULATORY - PSYCHIATRY [facility] [place] [facility] Jun 13, 2024 10:00 AM AMBULATORY - MEDICINE [facility] [place] [facility] Jun 19, 2024 11:00 AM AMBULATORY - NONE [facility] Lab Results: +/- 30 days of the encounter This section includes the Chemistry and Hematology Lab Results on record with [place] for the patient. Radiology Reports and Pathology Reports are provided separately, in subsequent sections. Lab Results This section contains the Chemistry/Hematology Results that were resulted 30 days before or 30 daysafter the date of the Encounter. Date/Time Source Result Type Result - Unit Interpretation Reference Range Comment December 25, 2023 09:26 AM [facility] FERRITIN Specimen Type: SERUM No comment entered. Ordering Provider: TRACY VILLANUEVA Report Released Date/Time: Dec 19, 2023 08:37 AM Reporting Lab: [address] [address] Performing Lab: [address] [address] FERRITIN 25 ng/mL 20-300 December 25, 2023 09:26 AM [facility] HEMOGLOBIN A1C PANEL Specimen Type: BLOOD Comment: [...] Dec 19, 2023 08:37 AM Reporting Lab: [address] [address] Performing Lab: [address] [address] HEMOGLOBIN A1C 7.7 H 4.0-5.6 December 25, 2023 09:26 AM [facility] LIVER FUNCTION Specimen Type: SERUM No comment entered. Ordering Provider: TRACY VILLANUEVA Report Released Date/Time: Dec 19, 2023 08:37 AM Reporting Lab: [address] [address] Performing Lab: [address] [address] PROTEIN,TOTAL 7.0 g/dL 6.0-8.3 ALBUMIN 3.9 g/dL 3.5-5.0 ALKALINE PHOSPHATASE 90 U/L 40-150 AST 17 U/L 5-34 ALT 20 U/L BILIRUBIN, TOTAL 0.6 mg/dL 0.2-1.2 December 25, 2023 09:26 AM [facility] BASIC METABOLIC PANEL (non-fasting) Spe cimen Type: SERUM No comment entered. Ordering Provider: TRACY VILLANUEVA Report Released Date/Time: Dec 19, 2023 08:37 AM Reporting Lab: [address] [address] Performing Lab: [address] [address] UREA NITROGEN 12 mg/dL 7-25 GLUCOSE 240 mg/dL H 65-100 SODIUM 135 mmol/L 135-145 POTASSIUM 4.2 mmol/L 3.5-5.0 CHLORIDE 102 mmol/L 100-110 CO2 24 meq/L 20-30 CREATININE, Serum 0.78 mg/dL 0.50-1.40 eGFR(CKD-EPI 2020) 88 mL/min >60 December 25, 2023 09:26 AM [facility] CBC Specimen Type: BLOOD No comment entered. Ordering Provider: TRACY VILLANUEVA Report Released Date/Time: Dec 19, 2023 08:37 AM Reporting Lab: [address] [address] Performing Lab: [address] [address] WBC 9.74 10*3/uL 4.50-11.00 RBC 4.50 10*6/uL 4.23-5.66 HGB 12.5 g/dL L 12.8-17 HCT 36.2 L 39.2-50.4 MCV 80.4 fL L 82-99 MCHC 34.5 g/dL 30.8-35.1 PLT 275 10*3/uL 140-360 RDW-CV 13.7 12.0-16.0 MCH 27.8 pg 26.2-32.6 December 25, 2023 09:26 AM [facility] MICROALBUMIN CREATININE RATIO PANEL Spe cimen Type: URINE No comment entered. Ordering Provider: TRACY VILLANUEVA Report Released Date/Time: Dec 19, 2023 08:37 AM Reporting Lab: [place] [facility] [place] [facility] [address] [address] Performing Lab: [place] [facility] [place] [facility] [address] [address] MICROALBUMIN/C REATININE RATIO 23.9 mg/g 0-29.9 MICROALBUMIN,Q [...] 25, 2023 09:05 AM [facility]TOBACCO [facility] Tobacco Use History This section includes a history of the smoking, or tobacco-related health factors, that were collected on or before the date of the Encounter. The data comes from the [place] facility where the Encounter took place. 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 [facility] [place] [facility] Dec 13, 2022 03:00 PM VA-TOBACCO USE MED NO [facility] [place] [facility] Dec 13, 2022 03:00 PM VA-TOBACCO USER EVERY DAY [place] [facility] [place] [facility] Nov 17, 2021 10:00 AM VA-TOBACCO USE 30 YEARS OR MORE [facility] [place] [facility] Nov 17, 2021 10:00 AM VA-TOBACCO USE ADVICE [place] [facility] [place] [facility] Nov 17, 2021 10:00 AM 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 USE 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 [facility] Nov 17, 2021 10:00 AM VA-TOBACCO USE MED NO [facility] Nov 17, 2021 10:00 AM VA-TOBACCO USE WI 30 MIN OF WAKEUP [facility] Nov 17, 2021 10:00 AM VA-TOBACCO USER EVERY DAY [facility] Oct 14, 2013 12:55 PM V1-PT NOT INTERESTED IN QUIT TOBACCO USE [facility] May 07, 2013 05:04 PM CURRENT SMOKER trying to stop [facility] May 07, 2013 05:04 PM V1-PT DECLINES REF TO TOBACCO CESS PRGM [facility] May 07, 2013 05:04 PM V1-PT DECLINES TOBACCO CESSATION MEDS [facility] May 07, 2013 05:04 PM V1-PT READY TO QUIT TOBACCO USE [facility] Dec 03, 2012 08:23 AM V1-PT DECLINES REF TO TOBACCO CESS PRGM [facility] Dec 03, 2012 08:23 AM V1-PT DECLINES TOBACCO CESSATION MEDS [facility] Dec 03, 2012 08:23 AM V1-PT THINKING ABOUT QUIT TOBACCO USE [facility] Jun 05, 2012 08:45 AM CURRENT SMOKER 1/2ppd [facility] Jun 05, 2012 08:45 AM V1-PT DECLINES REF TO TOBACCO CESS PRGM [facility] Jun 05, 2012 08:45 AM V1-PT THINKING ABOUT QUIT TOBACCO USE [facility] Jun 05, 2012 08:45 AM V1-TOBACCO CESS MEDS NOT PRESCRIBED Vet wants to talk to his provider-He is nervous about taking meds to quit- but he is interested in quitting [facility] Nov 25, 2011 09:14 AM V1-PT DECLINES REF TO TOBACCO CESS PRGM [facility] [place] [facility] Nov 25, 2011 09:14 AM V1-PT DECLINES TOBACCO CESSATION MEDS [facility] [place] [facility] Nov 25, 2011 09:14 AM V1-PT THINKING ABOUT QUIT TOBACCO USE [facility] [place] [facility] May 06, 2011 01:02 PM CURRENT SMOKER [facility] [place] [facility] May 06, 2011 01:02 PM V1-PT DECLINES TOBACCO CESSATION MEDS [facility] [place] [facility] May 06, 2011 01:02 PM V1-PT NOT INTERESTED IN QUIT TOBACCO USE [facility] [place] [facility] Sep 24, 2010 08:51 AM V1-PT DECLINES TOBACCO CESSATION MEDS [facility] [place] [facility] Sep 24, 2010 08:51 AM V1-PT THINKING ABOUT QUIT TOBACCO USE [facility] [place] [facility] Mar 22, 2010 07:58 AM CURRENT SMOKER 1/2 ppd [facility] [place] [facility] Feb 25, 2009 12:05 PM QUIT TOBACCO USE IN PAST YEAR [facility] [place] [facility] Aug 26, 2008 09:28 AM CURRENT SMOKER 1/2 ppd [facility] [place] [facility] Aug 26, 2008 09:28 AM V1-PT DECLINES REF TO TOBACCO CESS PRGM [place] [facility] [place] [facility] Aug 26, 2008 09:28 AM V1-PT READY TO QUIT TOBACCO USE [facility] [place] [facility] Dec 19, 2007 10:08 AM V1-PT DECLINES REF TO TOBACCO CESS PRGM [facility] [place] [facility] Dec 19, 2007 10:08 AM V1-PT DECLINES TOBACCO CESSATION MEDS [facility] [place] [facility] Dec 19, 2007 10:08 AM V1-PT THINKING ABOUT QUIT TOBACCO USE [facility] [place] [facility] Sep 11, 2007 11:10 AM CURRENT SMOKER [facility] [place] [facility] Sep 11, 2007 11:10 AM V1-PT DECLINES REF TO TOBACCO CESS PRGM [place] [facility] [place] [facility] Sep 11, 2007 11:10 AM V1-PT DECLINES TOBACCO CESSATION MEDS [facility] [place] [facility] Sep 11, 2007 11:10 AM V1-PT THINKING ABOUT QUIT TOBACCO USE [facility] Feb 13, 2007 01:46 PM V1-PT DECLINES REF TO TOBACCO CESS PRGM [facility] Feb 13, 2007 01:46 PM V1-PT DECLINES TOBACCO CESSATION MEDS [facility] Feb 13, 2007 01:46 PM V1-PT THINKING ABOUT QUIT TOBACCO USE [facility] Oct 02, 2006 08:28 AM QUIT TOBACCO USE IN PAST YEAR 3 months ago [facility] Aug 19, 2005 08:33 AM QUIT TOBACCO USE IN PAST YEAR nonsmoker [facility] Sep 21, 2004 09:54 AM CURRENT SMOKER [facility] Sep 07, 2004 08:07 AM CURRENT SMOKER [facility] Sep 15, 2003 11:21 AM CURRENT SMOKER smokes one pk day [facility] Jul 23, 2003 01:57 PM CURRENT SMOKER [facility] Advance Directives: All historical and current [...] Apr 10, 2023 ADVANCE DIRECTIVE GEORGEESSIE DOZIER [facility] Apr 19, 2007 ADVANCE DIRECTIVE VICTORIA JOHNSON [facility] Encounter Notes: All associated encounter notes This section contains the clinical notes associated to the Encounter. Date/Time Encounter Note(s) Provider Source December 25, 2023 09:05 AM PREVENTIVE MEDICIN E NURSING NOTE: LOCAL TITLE: CLINICAL REMINDERS/NURSING STANDARD TITLE: PREVENTIVE MEDICINE NURSING NOTE DATE OF NOTE: DECEMBER 25, 2023@09:05 ENTRY DATE: DECEMBER 25, 2023@09:05:10 AUTHOR: FLETCHER-DE DIOS,MARIANGE EXP COSIGNER: URGENCY: STATUS: COMPLETED Colonoscopy GAP Reminder: Recommendations are needed in the clinical reminder system following the patient's most recent colorectal cancer screening/surveillance test (Colonoscopy, Sigmoidoscopy or CT Colonography) Colorectal cancer screening/surveillance will be stopped. Reason: age out Falls & Incontinence Screen: Falls Screen: During the past 12 months, did the patient report any falls? 4. No falls within the past year. Incontinence Screen: During the past 12 months, has the patient has any characteristics of incontinence (ability, voiding, leakage, etc.)? No incontinence. Tobacco Use Screening: The patient has never used tobacco. Alcohol Use Screen (AUDIT-C): Alcohol Screen: SCREEN FOR ALCOHOL (AUDIT-C) An alcohol screening test (AUDIT-C) was negative (score=0). 1. How often did you have a drink containing alcohol in the past year? Consider a drink to be a 12 ounce can or bottle of regular beer, 8 ounces of malt liquor, a 5 ounce glass of table wine, or a 1.5 ounce shot of liquor (like scotch, gin, or vodka). Never 2. How many drinks containing alcohol did you have on a typical day when you were drinking in the past year? Response not required due to responses to other questions. 3. How often did you have six or more drinks on one occasion in the past year? Response not required due to responses to other questions. COVID-19 Immunization: Refused Moderna Monovalent COVID-19 vaccine Immunization: COVID-19 (MODERNA), MRNA, LNP-S, PF, 50 MCG/0.5 ML (AGES 12+ YEARS) Refusal Reason: PATIENT DECISION Patient refuses all immunization(s) in the COVID-19 group Date Documented: 12/25/23 09:06 Eye Care At-Risk Screen : Patient identified to be at risk for the following eye condition(s): DIABETIC RETINOPATHY: Diabetes Diagnosis Information: Problem Diagnosis: 09/25/2023 [id number] (SNOMED CT) Type 2 diabetes mellitus Date Entered: 09/25/2023; Date Last Modified: 09/25/2023 Status: ACTIVE; Priority: UNDEFINED Prov. Narr. - Diabetes mellitus type 2 MACULAR DEGENERATION: Macular Degeneration Risk Factors Information: Reminder Term: VA-AMD RISK FACTORS Encounter Diagnosis: 12/21/2023@09:00 Z72.0 (ICD-10-CM) Tobacco use rank: SECONDARY Prov. Narr. 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 Narr. - Open Angle Glaucoma Suspect Action: Patient has a future eye care appointment scheduled within the next 90 days. Date of Appointment: do not remenber the exact date is ging to be at [facility]. Hepatitis A Vaccine for High Risk: Patient declines/refuses Hepatitis A immunization Immunization: HEP A, UNSPECIFIED FORMULATION Refusal Reason: PATIENT DECISION Patient refuses all immunization(s) in the HepA group Date Documented: 12/25/23 09:07 cyndi/ MARCUS DOZIER LPN LPN Signed: 12/25/2023 09:07 MARCUS DOZIER [facility]
--- OUTSIDE RECORDS SUMMARY | 2024-08-16 09:28 | XMS_ITS | Encounter Summary ---
Author Name [facility] [place] [facility] [place] [facility] [place] [facility] [place] Address [address] [place] [address] Care Team Providers Care City Magistrate Name Role Phone TRACY VILLANUEVA Primary Care [...] PHI MEDEX BRONZ E December 19, 2013 [id number] [phone] GUSTAVO ARAMBULA SR PATIENT [employer] MEDICARE SUPPLEMEN PHI MEDIC ARE SUPPL EMENT Jul 21, 2007 NONE [id number] [phone] Edgar ARAMBULA PATIENT [place] SUPPLEMEN PHI MEDEX BRONZ E December 19, 2013 [id number] GUSTAVO ARAMBULA SR PATIENT [place] MEDICARE SUPPLEMEN PHI MEDEX BRONZ E December 19, 2013 [id number] Edgar ARAMBULAN PATIENT MEDICARE (WNR) MEDICARE (M) PART A Oct 19, 2004 PART A [id number] Edgar ARAMBULA [place] PATIENT MEDICARE (WNR) MEDICARE (M) PART B Oct 19, 2004 PART B [id number] Edgar ARMABULA [place] PATIENT MEDICARE (WNR) MEDICARE (M) PART A Oct 19, 2004 PART A [id number] [phone] Edgar ARAMBULA [place] PATIENT MEDICARE (WNR) MEDICARE (M) PART B Oct 19, 2004 PART B [id number] Edgar ARAMBULA [place] PATIENT MEDICARE (WNR) MEDICARE (M) PART B Oct 19, 2004 PART B [id number] [phone] Edgar ARAMBULA [place] PATIENT MEDICARE (WNR) MEDICARE () PART A Oct 19, 2004 PART A [id number] Edgar ARAMBULAN PATIENT MEDICARE (WNR) MEDICARE () PART A Oct 19, 2004 PART A [id number] [phone] Edgar ARAMBULAN PATIENT MEDICARE (WNR) MEDICARE () PART B Oct 19, 2004 PART B [id number] Edgar ARAMBULAN PATIENT MEDICARE (WNR) MEDICARE () PART A Oct 19, 2004 PART A [id number] Edgar ARAMBULA PATIENT MEDICARE (WNR) MEDICARE (M) PART B Oct 19, 2004 PART B [id number] Edgar ARAMBULAN PATIENT Selected Encounter This section includes the information on record at [place] for the Encounter. Date/Time Encounter Type Encounter Description Reason Provider Source December 25, 2023 09:00 AM OFFICE O/P EST MOD 30 MIN PRIMARY CARE/MEDICINE ICD-10-CM G89.4 Chronic pain syndrome TRACY VILLANUEVA Encounter Template Text not used by [place] Assessments - Encounter Diagnoses This section includes the primary and secondary diagnoses documented for the Encounter. Date/Time Primary/Secondary Diagnosis Diagnosis Name Provider Source December 25, 2023 06:03 PM PRIMARY Chronic pain syndrome TRACY VILLANUEVA December 25, 2023 06:03 PM SECONDARY Chronic obstructive pulmonary disease, unspecified TRACY VILLANUEVA December 25, 2023 06:03 PM SECONDARY Essential (primary) hypertension TRACY VILLANUEVA December 25, 2023 06:03 PM SECONDARY Foreign body sensation, throat TRACY VILLANUEVA December 25, 2023 06:03 PM SECONDARY USP (current) use of anticoagulants TRACY VILLANUEVA [place] December 25, 2023 06:03 PM SECONDARY Nonrheumatic aortic (valve) stenosis TRACY VILLANUEVA [place] December 25, 2023 06:03 PM SECONDARY Osteoarthritis of hip, unspecified TRACY VILLANUEVA December 25, 2023 06:03 PM SECONDARY Other intervertebral disc disorders, lumbar region TRACY VILLANUEVA December 25, 2023 06:03 PM SECONDARY Tobacco use TRACY VILLANUEVA December 25, 2023 06:03 PM SECONDARY Type 2 diabetes mellitus without complications TRACY VILLANUEVA Plan of Treatment: Future Appointments (+ 6 months) and Future Tests (+/- 45 days) The Plan of Treatment section includes future care activities for the [facility] [place] [facility] This section includes future appointments and future orders which are active, pending or scheduled. Future Appointments This section includes appointments that were scheduled to occur 6 months from the date of the Encounter, up to a maximum of 20 appointments. The data comes from all [place] treatment facilities. Appointment Date/Time Appointment Type Appointme nt Facility Name Feb 05, 2024 10:00 AM AM[place]ULATORY [place]ICINE [place] [facility] [place] [facility] Feb 13, 2024 11:30 AM [facility]IC[facility] Feb 15, 2024 09:00 AM AMBULATORY - [place]CHIATRY [place] [facility] [place] [facility] Feb 15, 2024 09:45 AM AMBULATORY - NONE [facility] [place] [facility] Mar 07, 2024 09:00 AM AMBULATORY - PS[place]CHIATRY [place] [facility] [place] [facility] Mar 08, 2024 08:30 AM AMBULATORY - NONE [place] [facility] [place] [facility] Mar 11, 2024 09:00 AM [facility]ATORY - MEDICINE [facility] Apr 04, 2024 11:00 AM AMBULATORY - PSYCHIATRY [facility] [place] [facility] Apr 08, 2024 09:30 AM AMBULATORY - MEDICINE [facility] [place] [facility] Apr 10, 2024 10:45 AM AMBULATORY - MEDICINE [facility] [place] [facility] Apr 26, 2024 11:00 AM AMBULATORY - MEDICINE [facility] [place] [facility] Apr 30, 2024 08:30 AM AMBULATORY - PSYCHIATRY [facility] [place] [facility] May 01, 2024 11:00 AM AMBULATORY - NONE [facility] [place] [facility] May 14, 2024 11:30 AM [facility]ICINE [facility] May 31, 2024 11:00 AM AMBULATORY - REHAB MEDICIN E [facility] [place] [facility] May 31, 2024 12:00 PM AMBULATORY - MEDICINE [facility] [place] [facility] Jun 10, 2024 10:00 AM [facility]ATORY [facility] MEDICINE [facility] Jun 11, 2024 09:30 AM AMBULATORY - PSYCHIATRY [facility] [place] [facility] Jun 13, 2024 10:00 AM AMBULATORY - MEDICINE [facility] [place] [facility] Jun 19, 2024 11:00 AM AMBULATORY - NONE [facility] [place] [facility] Lab Results: +/- 30 days of the encounter This section includes the Chemistry and Hematology Lab Results on record with [place] for the patient. Radiology Reports and Pathology Reports are provided separately, in subsequent sections. Lab Results This section contains the Chemistry/Hematology Results that were resulted 30 days before or 30 daysafter the date of the Encounter. Date/Time Source Result Type Result - Unit Interpretation Reference Range Comment December 25, 2023 09:26 AM [place] FERRITIN Specimen Type: SERUM No comment entered. Ordering Provider: TRACY VILLANUEVA Report Released Date/Time: Dec 19, 2023 08:37 AM Reporting Lab: [place] [facility] [place] [facility] [address] [facility] [address] Performing Lab: [place] [facility] [address] [address] FERRITIN 25 ng/mL 20-300 December 25, 2023 09:26 AM [place] HEMOGLOBIN A1C PANEL Specimen Type: BLOOD Comment: [...] Dec 19, 2023 08:37 AM Reporting Lab: [address] [address] Performing Lab: [address] [address] HEMOGLOBIN A1C 7.7 H 4.0-5.6 December 25, 2023 09:26 AM [place] LIVER FUNCTION Specimen Type: SERUM No comment entered. Ordering Provider: TRACY VILLANUEVA Report Released Date/Time: Dec 19, 2023 08:37 AM Reporting Lab: [address] [address] Performing Lab: [address] [address] PROTEIN,TOTAL 7.0 g/dL 6.0-8.3 ALBUMIN 3.9 g/dL 3.5-5.0 ALKALINE PHOSPHATASE 90 U/L 40-150 AST 17 U/L 5-34 ALT 20 U/L BILIRUBIN, TOTAL 0.6 mg/dL 0.2-1.2 December 25, 2023 09:26 AM [place] BASIC METABOLIC PANEL (non-fasting) Spe cimen Type: SERUM No comment entered. Ordering Provider: TRACY VILLANUEVA Report Released Date/Time: Dec 19, 2023 08:37 AM Reporting Lab: [address] [address] Performing Lab: [address] [address] UREA NITROGEN 12 mg/dL 7-25 GLUCOSE 240 mg/dL H 65-100 SODIUM 135 mmol/L 135-145 POTASSIUM 4.2 mmol/L 3.5-5.0 CHLORIDE 102 mmol/L 100-110 CO2 24 meq/L 20-30 CREATININE, Serum 0.78 mg/dL 0.50-1.40 eGFR(CKD-EPI 2020) 88 mL/min >60 December 25, 2023 09:26 AM [place] CBC Specimen Type: BLOOD No comment entered. Ordering Provider: TRACY VILLANUEVA Report Released Date/Time: Dec 19, 2023 08:37 AM Reporting Lab: [address] [address] Performing Lab: [address] [address] WBC 9.74 10*3/uL 4.50-11.00 RBC 4.50 10*6/uL 4.23-5.66 HGB 12.5 g/dL L 12.8-17 HCT 36.2 L 39.2-50.4 MCV 80.4 fL L 82-99 MCHC 34.5 g/dL 30.8-35.1 PLT 275 10*3/uL 140-360 RDW-CV 13.7 12.0-16.0 MCH 27.8 pg 26.2-32.6 December 25, 2023 09:26 AM [place] MICROALBUMIN CREATININE RATIO PANEL Spe cimen Type: URINE No comment entered. Ordering Provider: TRACY VILLANUEVA Report Released Date/Time: Dec 19, 2023 08:37 AM Reporting Lab: [address] [address] Performing Lab: [address] [address] MICROALBUMIN/C REATININE RATIO 23.9 mg/g 0-29.9 MICROALBUMIN,Q UANTITATIVE 0.7 mg/dL RR UNAVAIL CREATININE URINE 29.30 mg/dL Vital Signs: All taken on the encounter date This section contains inpatient and outpatient Vital Signs collected on the date of the Encounter. Date/Time Temperature Pulse Blood Pressure Respiratory Rate SP02 Pain Height Weight Body Mass Index Source December 25, 2023 09:08 AM 97.7 84 153/78 20 97 60.3 138 27 [place] Social History: Smoking Status (Most current) and Tobacco Use (All prior to encounter date) This section includes the most current, and the historical, smoking and tobacco- related health factors from the [place] facility where the Encounter took place. Current Smoking Status This section includes the most current smoking, or tobacco-related health factor, from the [place] facility where the Encounter took place. Date/Time Current Smoking Status Comment Lopez camacho December 25, 2023 09:00 AM VA-TOBACCO USE WI 30 MIN OF WAKE UP [place] Tobacco Use History This section includes a history of the smoking, or tobacco-related health factors, that were collected on or before the date of the Encounter. The data comes from the [place] facility where the Encounter took place. Date/Time Smoking Status/Tobacco Use Comment F acility December 25, 2023 09:00 AM VA-TOBACCO USE ADVICE [place] December 25, 2023 09:00 AM VA-TOBACCO USE SPARK TESTER NO [place] December 25, 2023 09:00 AM VA-TOBACCO USE MED NO [place] December 25, 2023 09:00 AM VA-TOBACCO USE WI 30 MIN OF WAKE UP [place] December 25, 2023 09:00 AM VA-TOBACCO USER EVERY DAY [place] Advance Directives: All historical and current Section Date Range: From patient's date of to the date document was created. This section includes ALL of a patient's completed or amended [place] Advance and Rescinded Directives. The entries below indicate that a directive exists for the patient, but an actual copy is not included with this document. The data comes from all [facility]. Date Advance Directives Provider Source Apr 10, 2023 ADVANCE DIRECTIVE [place] [facility] Apr 19, 2007 ADVANCE DIRECTIVE VICTORIA [facility]NSON [facility] Encounter Notes: All associated encounter notes This section contains the clinical notes associated to the Encounter. Date/Time Encounter Note(s) Provider Source December 25, 2023 06:06 PM ADDENDUM: LOCAL TITLE: Addendum STANDARD TITLE: ADDENDUM DATE OF NOTE: DECEMBER 25, 2023@18:06:32 ENTRY DATE: DECEMBER 25, 2023@18:06:33 AUTHOR: TRACY VILLANUEVA EXP COSIGNER: URGENCY: STATUS: COMPLETED Please notify patient his A1c went up from 6.7 to 7.7. I sent a referral to clinical pharmacist to discuss further treatment options with him. /reginaldo/ DARLENE BOX CERTIFIED NURSE PRACTITIONER Signed: 12/25/2023 18:08 Receipt Acknowledged By: 12/26/2023 10:35 /es/ RONNI LECHUGA RN REGISTERED NURSE --- Original Document --- 12/25/23 NURSE PRACTITIONER OUTPATIENT NOTE: PRIMARY CARE VISIT GUSTAVO ALEXANDER SR RALF, is a 83 y/o WHITE MALE who presents today at the [place] [facility]. TYPE OF VISIT: Face to face HPI: chronic pain syndrome - b/l hips; has hx b/l CAROL ANN. Requires cane for mobility. On buprenorphine, Lyrica. Reports pain well controlled, managed by pain clinic. COPD - smokes 8 cig/day x 65 years. Has chronic productive cough, ERWIN. Needs f/u LDCT. Recent labs reviewed and all medications were reconciled during this visit. HEALTHCARE PROVIDERS: HISTORY: PERIOD OF SERVICE - [facility] FROM December TO Oct COMBAT SERVICE INDICATED: No VITAL SIGNS: Temperature 97.7 F [36.5 C] (12/25/2023 09:08) Blood Pressure 153/78 (12/25/2023 09:08) Pulse 84 (12/25/2023 09:08) Respiration 20 (12/25/2023 09:08) Pain 7 (09/05/2023 10:02) BMI BMI: 26.7 Weight 138 lb [62.60 kg] (12/25/2023 09:08) Pulse Oximetry 97% (12/25/2023 09:08) ASSISTIVE DEVICES: REVIEW OF SYSTEMS: CONSTITUTIONAL: No fevers, chills, unexpected weight changes. EENT: No changes in vision or hearing, sneezing, congestion, rhinorrhea, anosmia, sore throat or ageusia. CARDIOVASCULAR: No chest pain, palpitations or peripheral edema. RESPIRATORY: No SOB, cough, sputum, wheeze. GASTROINTESTINAL: Denies abdominal pain, N/V/D/C. No melena or hematochezia. GENITOURINARY: No dysuria, hematuria, urinary frequency or urgency. No nocturia. MUSCULOSKELETAL: No myalgias or arthralgias. SKIN: Denies rashes, open areas or concerns PSYCHIATRIC: No new anxiety or depression. No sleep disturbance. NEUROLOGIC: No headaches, dizziness, numbness/tingling in the extremities or unilateral weakness. PHYSICAL EXAMINATION: General: Well-appearing [place] in no obvious distress. Mental Status: Alert and oriented x4. Head: Normocephalic, atraumatic. Eyes: PERRL. EOMI. Anicteric sclerae. ENT: TM and ear canals normal bilaterally. Moist oral mucosa. Posterior pharynx unremarkable. Good dentition. Neck: Supple. No JVD. No lymphadenopathy. No bruit. Thyroid unremarkable. Lungs: CTAB. Normal chest excursion. Eupneic respirations. CV: Heart tones S1, S2. RRR. No M/G/R. No peripheral edema. GI: Abdomen is soft and nontender. No palpable mass or organomegaly. : No CVA tenderness. Ext: No cyanosis or clubbing. No gross deformities. MS: Full ROM all joints Neuro: CN II through XII grossly intact. Normal speech. Normal gait. Integument: Skin warm and dry. No rashes or lesions on visible areas. Psych: Normal mood and affect. Normal judgment. Cooperative with exam, follows commands. ALLERGIES: GEMFIBROZIL, LISINOPRIL HEALTH MAINTENANCE - see end of note PREVENTIVE MEDICINE GOALS Medication Reconciliation DUE NOW ASSESSMENT/PLAN: Active problems - Computerized [...] 17. Disorder of lumbar disc (SNOMED CT 837369481) 18. Depression (SNOMED CT 79448716) 19. Dry Eye Syndromes * 20. 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 Artificial hip joint present (SNOMED CT 611457707) 22. Osteoarthritis of right hip joint (SNOMED CT 256675035737467) 23. Prostate, Malign Neoplasm 24. Cataract, Cortical (Senile) 25. Open Angle Glaucoma Suspect 26. HYPERLIPIDEMIA 27. HYPERTENSION 28. POLYPS, COLON/LG BOWEL (BENIGN MAEGAN 29. Tobacco use (SNOMED CT 446293162) FOLLOW UP: Return to clinic as noted below and/or sooner PRN UPCOMING APPOINTMENTS: 01/04/2024 10:00 COM CARE-ORTHO GEN 02/05/2024 10:00 CWM/NO/VVC/PAIN [facility] CLINIC 02/15/2024 09:00 CWM/NO/JESSICA/BERNADINE 1 No barriers noted; patient understands and agrees [...] this [facility] (local) and dispensed from another VA or [...] /reginaldo/ DARLENE BOX CERTIFIED NURSE PRACTITIONER Signed: 12/25/2023 17:43 12/25/2023 ADDENDUM STATUS: COMPLETED erroneously signed before complete, this is accurate note LOCAL TITLE: NURSE PRACTITIONER OUTPATIENT NOTE STANDARD TITLE: PRIMARY CARE NURSE PRACTITIONER OUTPATIENT NOTE DATE OF NOTE: DECEMBER 25, 2023@09:12 ENTRY DATE: DECEMBER 25, 2023@09:12:35 AUTHOR: TRACY VILLANUEVA EXP COSIGNER: URGENCY: STATUS: COMPLETED PRIMARY CARE VISIT GUSTAVO ALEXANDER SR RALF, is a 83 y/o WHITE MALE who presents today at the [place] [facility]. TYPE OF VISIT: Face to face HPI: chronic pain syndrome - b/l hips; has hx b/l CAROL ANN; low back. Requires cane for mobility. On buprenorphine, Lyrica. Reports pain well controlled, managed by pain clinic. COPD - smokes 8 cig/day x 65 years. Has chronic productive cough, ERWIN. Needs LDCT for screening. DM2 - on metformin. A1c in Aug was 6.7. On statin therapy. Last eye exam over a year ago, recently had to cancel his appt for exam, will reschedule. aortic valve disorder - on apixaban. HTN - stable on Rx. reports persistent sensation of something in his throat, occasional difficulty swallowing, denies choking on food or fluids. Has endoscopy scheduled for later this month. Recent labs reviewed and all medications were reconciled during this visit. HISTORY: PERIOD OF SERVICE - [facility] FROM December TO Oct COMBAT SERVICE INDICATED: No VITAL SIGNS: Temperature 97.7 F [36.5 C] (12/25/2023 09:08) Blood Pressure 153/78 (12/25/2023 09:08) Pulse 84 (12/25/2023 09:08) Respiration 20 (12/25/2023 09:08) Pain 7 (09/05/2023 10:02) BMI BMI: 26.7 Weight 138 lb [62.60 kg] (12/25/2023 09:08) Pulse Oximetry 97% (12/25/2023 09:08) ASSISTIVE DEVICES: cane REVIEW OF SYSTEMS: CONSTITUTIONAL: No fevers, chills, unexpected weight changes. CARDIOVASCULAR: No chest pain, palpitations or peripheral edema. RESPIRATORY: No SOB at rest, + ERWIN, productive cough. GASTROINTESTINAL: Denies abdominal pain, N/V/D/C. Sensation of something in throat. No melena or hematochezia. GENITOURINARY: No dysuria, hematuria, urinary frequency or urgency. No nocturia. MUSCULOSKELETAL: well controlled pain b/l hips, low back NEUROLOGIC: No headaches, dizziness, numbness/tingling in the extremities or unilateral weakness. PHYSICAL EXAMINATION: General: Well-appearing [place] in no obvious distress. Mental Status: Alert and oriented x4. Neck: Supple. No lymphadenopathy. Thyroid unremarkable. Lungs: CTAB. Normal chest excursion. Eupneic respirations. CV: Heart tones S1, S2. RRR. 2/6 KIMMY. No peripheral edema. GI: Abdomen is soft and nontender. No palpable mass or organomegaly. MS: Limited ROM lumbar spine, b/l hips. No joint deformity. Neuro: CN II through XII grossly intact. Normal speech. Slightly unsteady gait. Psych: Normal mood and affect. Normal judgment. Cooperative with exam, follows commands. ALLERGIES: GEMFIBROZIL, LISINOPRIL HEALTH MAINTENANCE - see end of note PREVENTIVE MEDICINE GOALS Medication Reconciliation DUE NOW ASSESSMENT/PLAN: Active problems - Computerized Problem List is the source for the followin. Chronic pain - followed by pain clinic, continue Rx 2. Disorder of lumbar disc (SNOMED CT 221096758)- see above 3. OA - Osteoarthritis of hip. See above. 4. Diabetes mellitus type 2 - recheck labs. Continue metformin. Recommend low carb diet. 5. Aortic valve stenosis - continues on apixaban. 6. Long-term current use of anticoagulant - at high risk for bleeding complications, monitor closely. 7. Chronic obstructive lung disease - + smoker. CT chest ordered for lung cancer screening. Not ready to quit smoking. 8. Tobacco use (SNOMED CT 900242673) - see above. 9. Benign essential hypertension - stable on Rx. 10. sensation of something in throat - has endoscopy later this month. routine and screening labs ordered FOLLOW UP: Return to clinic as noted below and/or sooner PRN UPCOMING APPOINTMENTS: 01/04/2024 10:00 COM CARE-ORTHO GEN 02/05/2024 10:00 CWM/NO/VVC/PAIN MD CLINIC 02/15/2024 09:00 CWM/NO/JESSICA/BERNADINE 1 No barriers noted; patient understands and agrees [...] this VA (local) and dispensed from another VA or [...] next appointment, whether with a [place] or non-[place] provider. Tobacco Use Screening: The patient uses tobacco every day. The patient uses tobacco within 30 minutes of waking up. The patient has been smoking or using tobacco for thirty years or more. Patient was advised to quit smoking and/or using tobacco. Discussion with patient included: - Quitting smoking or tobacco use is one of the most important things you can do to protect and improve your health and [place] has the resources to support you. - Set a quit date when you are ready to quit. - Get support from your family and friends. - Review any past quit attempts- What helped? What didn't? - On the day you plan to quit, get rid of all cigarettes and tobacco products from your home, car or work. - Using a combination of behavioral counseling or other support strategies and FDA-approved cessation medications is the most effective way to ensure success in quitting. Patient was offered Behavioral Counseling and other support strategies to assist with quitting. Discussion with patient included: - Behavioral counseling or other support strategies greatly increases your chances of successfully quitting smoking or tobacco use by helping you develop a quit plan and providing support and other strategies to make behavioral changes to help you quit. - [place] has a number of behavioral counseling options to help you with quitting, including: * Provide information about the facility smoking or tobacco use treatment options or clinics * [place]'s national quitline, 5-238-BCBQ-VET, with counseling available Monday-Monday The patient was not interested in receiving additional information about how to use the treatment options discussed. Patient was offered FDA-approved cessation medications. Discussion with patient included: - Medications for Nicotine replacement therapy such as the patch, gum or lozenge, and other medications such as varenicline or bupropion, can play an important role in the initial weeks and months after you quit smoking or tobacco use. - Medications help with cravings and withdrawal symptoms and they greatly increase your chances of successfully quitting. The patient was not interested in a prescription for tobacco cessation medications. /reginaldo/ DARLENE BOX CERTIFIED NURSE PRACTITIONER Signed: 12/25/2023 18:04 12/26/2023 ADDENDUM STATUS: COMPLETED Spoke with . Advised as requested by PCP. Verbalized understanding. /reginaldo/ RONNI LECHUGA RN REGISTERED NURSE Signed: 12/26/2023 10:35 TRACY VILLANUEVA [place] December 25, 2023 09:12 AM PRIMARY CARE NURSE PRACTITIONER OUTPATIENT NOTE: LOCAL TITLE: NURSE PRACTITIONER OUTPATIENT NOTE STANDARD TITLE: PRIMARY CARE NURSE PRACTITIONER OUTPATIENT NOTE DATE OF NOTE: DECEMBER 25, 2023@09:12 ENTRY DATE: DECEMBER 25, 2023@09:12:35 AUTHOR: TRACY VILLANUEVA EXP COSIGNER: URGENCY: STATUS: COMPLETED NURSE PRACTITIONER OUTPATIENT NOTE Has ADDENDA PRIMARY CARE VISIT GUSTAVO CATHERINE ARAMBULA, is a 83 y/o WHITE MALE who presents today at the [place] [facility]. TYPE OF VISIT: Face to face HPI: chronic pain syndrome - b/l hips; has hx b/l CAROL ANN. Requires cane for mobility. On buprenorphine, Lyrica. Reports pain well controlled, managed by pain clinic. COPD - smokes 8 cig/day x 65 years. Has chronic productive cough, ERWIN. Needs f/u LDCT. Recent labs reviewed and all medications were reconciled during this visit. HEALTHCARE PROVIDERS: HISTORY: PERIOD OF SERVICE - [facility] FROM December TO Oct COMBAT SERVICE INDICATED: No VITAL SIGNS: Temperature 97.7 F [36.5 C] (12/25/2023 09:08) Blood Pressure 153/78 (12/25/2023 09:08) Pulse 84 (12/25/2023 09:08) Respiration 20 (12/25/2023 09:08) Pain 7 (09/05/2023 10:02) BMI BMI: 26.7 Weight 138 lb [62.60 kg] (12/25/2023 09:08) Pulse Oximetry 97% (12/25/2023 09:08) ASSISTIVE DEVICES: REVIEW OF SYSTEMS: CONSTITUTIONAL: No fevers, chills, unexpected weight changes. EENT: No changes in vision or hearing, sneezing, congestion, rhinorrhea, anosmia, sore throat or ageusia. CARDIOVASCULAR: No chest pain, palpitations or peripheral edema. RESPIRATORY: No SOB, cough, sputum, wheeze. GASTROINTESTINAL: Denies abdominal pain, N/V/D/C. No melena or hematochezia. GENITOURINARY: No dysuria, hematuria, urinary frequency or urgency. No nocturia. MUSCULOSKELETAL: No myalgias or arthralgias. SKIN: Denies rashes, open areas or concerns PSYCHIATRIC: No new anxiety or depression. No sleep disturbance. NEUROLOGIC: No headaches, dizziness, numbness/tingling in the extremities or unilateral weakness. PHYSICAL EXAMINATION: General: Well-appearing in no obvious distress. Mental Status: Alert and oriented x4. Head: Normocephalic, atraumatic. Eyes: PERRL. EOMI. Anicteric sclerae. ENT: TM and ear canals normal bilaterally. Moist oral mucosa. Posterior pharynx unremarkable. Good dentition. Neck: Supple. No JVD. No lymphadenopathy. No bruit. Thyroid unremarkable. Lungs: CTAB. Normal chest excursion. Eupneic respirations. CV: Heart tones S1, S2. RRR. No M/G/R. No peripheral edema. GI: Abdomen is soft and nontender. No palpable mass or organomegaly. : No CVA tenderness. Ext: No cyanosis or clubbing. No gross deformities. MS: Full ROM all joints Neuro: CN II through XII grossly intact. Normal speech. Normal gait. Integument: Skin warm and dry. No rashes or lesions on visible areas. Psych: Normal mood and affect. Normal judgment. Cooperative with exam, follows commands. ALLERGIES: GEMFIBROZIL, LISINOPRIL HEALTH MAINTENANCE - see end of note PREVENTIVE MEDICINE GOALS Medication Reconciliation DUE NOW ASSESSMENT/PLAN: Active problems - Computerized [...] 17. Disorder of lumbar disc (SNOMED CT 841868187) 18. Depression (SNOMED CT 95989722) 19. Dry Eye Syndromes * 20. 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 Artificial hip joint present (SNOMED CT 004445753) 22. Osteoarthritis of right hip joint (SNOMED CT 798915405286323) 23. Prostate, Malign Neoplasm 24. Cataract, Cortical (Senile) 25. Open Angle Glaucoma Suspect 26. HYPERLIPIDEMIA 27. HYPERTENSION 28. POLYPS, COLON/LG BOWEL (BENIGN MAEGAN 29. Tobacco use (SNOMED CT 825630526) FOLLOW UP: Return to clinic as noted below and/or sooner PRN UPCOMING APPOINTMENTS: 01/04/2024 10:00 COM CARE-ORTHO GEN 02/05/2024 10:00 CWM/NO/VVC/PAIN MD CLINIC 02/15/2024 09:00 CWM/NO/JESSICA/BERNADINE 1 No barriers noted; patient understands and agrees [...] this VA (local) and dispensed from another VA or [...] /reginaldo/ DARLENE BOX CERTIFIED NURSE PRACTITIONER Signed: 12/25/2023 17:43 12/25/2023 ADDENDUM STATUS: COMPLETED erroneously signed before complete, this is accurate note LOCAL TITLE: NURSE PRACTITIONER OUTPATIENT NOTE STANDARD TITLE: PRIMARY CARE NURSE PRACTITIONER OUTPATIENT NOTE DATE OF NOTE: DECEMBER 25, 2023@09:12 ENTRY DATE: DECEMBER 25, 2023@09:12:35 AUTHOR: TRACY VILLANUEVA EXP COSIGNER: URGENCY: STATUS: COMPLETED PRIMARY CARE VISIT GUSTAVO ALEXANDER SR RALF, is a 83 y/o WHITE MALE who presents today at the [facility]. TYPE OF VISIT: Face to face HPI: chronic pain syndrome - b/l hips; has hx b/l CAROL ANN; low back. Requires cane for mobility. On buprenorphine, Lyrica. Reports pain well controlled, managed by pain clinic. COPD - smokes 8 cig/day x 65 years. Has chronic productive cough, ERWIN. Needs LDCT for screening. DM2 - on metformin. A1c in Aug was 6.7. On statin therapy. Last eye exam over a year ago, recently had to cancel his appt for exam, will reschedule. aortic valve disorder - on apixaban. HTN - stable on Rx. reports persistent sensation of something in his throat, occasional difficulty swallowing, denies choking on food or fluids. Has endoscopy scheduled for later this month. Recent labs reviewed and all medications were reconciled during this visit. HISTORY: PERIOD OF SERVICE - [facility] FROM December TO Oct COMBAT SERVICE INDICATED: No VITAL SIGNS: Temperature 97.7 F [36.5 C] (12/25/2023 09:08) Blood Pressure 153/78 (12/25/2023 09:08) Pulse 84 (12/25/2023 09:08) Respiration 20 (12/25/2023 09:08) Pain 7 (09/05/2023 10:02) BMI BMI: 26.7 Weight 138 lb [62.60 kg] (12/25/2023 09:08) Pulse Oximetry 97% (12/25/2023 09:08) ASSISTIVE DEVICES: cane REVIEW OF SYSTEMS: CONSTITUTIONAL: No fevers, chills, unexpected weight changes. CARDIOVASCULAR: No chest pain, palpitations or peripheral edema. RESPIRATORY: No SOB at rest, + ERWIN, productive cough. GASTROINTESTINAL: Denies abdominal pain, N/V/D/C. Sensation of something in throat. No melena or hematochezia. GENITOURINARY: No dysuria, hematuria, urinary frequency or urgency. No nocturia. MUSCULOSKELETAL: well controlled pain b/l hips, low back NEUROLOGIC: No headaches, dizziness, numbness/tingling in the extremities or unilateral weakness. PHYSICAL EXAMINATION: General: Well-appearing in no obvious distress. Mental Status: Alert and oriented x4. Neck: Supple. No lymphadenopathy. Thyroid unremarkable. Lungs: CTAB. Normal chest excursion. Eupneic respirations. CV: Heart tones S1, S2. RRR. 2/6 KIMMY. No peripheral edema. GI: Abdomen is soft and nontender. No palpable mass or organomegaly. MS: Limited ROM lumbar spine, b/l hips. No joint deformity. Neuro: CN II through XII grossly intact. Normal speech. Slightly unsteady gait. Psych: Normal mood and affect. Normal judgment. Cooperative with exam, follows commands. ALLERGIES: GEMFIBROZIL, LISINOPRIL HEALTH MAINTENANCE - see end of note PREVENTIVE MEDICINE GOALS Medication Reconciliation DUE NOW ASSESSMENT/PLAN: Active problems - Computerized Problem List is the source for the followin. Chronic pain - followed by pain clinic, continue Rx 2. Disorder of lumbar disc (SNOMED CT 525003148)- see above 3. OA - Osteoarthritis of hip. See above. 4. Diabetes mellitus type 2 - recheck labs. Continue metformin. Recommend low carb diet. 5. Aortic valve stenosis - continues on apixaban. 6. Long-term current use of anticoagulant - at high risk for bleeding complications, monitor closely. 7. Chronic obstructive lung disease - + smoker. CT chest ordered for lung cancer screening. Not ready to quit smoking. 8. Tobacco use (SNOMED CT 177983380) - see above. 9. Benign essential hypertension - stable on Rx. 10. sensation of something in throat - has endoscopy later this month. routine and screening labs ordered FOLLOW UP: Return to clinic as noted below and/or sooner PRN UPCOMING APPOINTMENTS: 01/04/2024 10:00 COM CARE-ORTHO GEN 02/05/2024 10:00 CWM/NO/VVC/PAIN MD CLINIC 02/15/2024 09:00 CWM/NO/JESSICA/BERNADINE 1 No barriers noted; patient understands and agrees [...] this VA (local) and dispensed from another [place] or [place] facility (remote) as well as [...] next appointment, whether with a [place] or non-[place] provider. Tobacco Use Screening: The patient uses tobacco every day. The patient uses tobacco within 30 minutes of waking up. The patient has been smoking or using tobacco for thirty years or more. Patient was advised to quit smoking and/or using tobacco. Discussion with patient included: - Quitting smoking or tobacco use is one of the most important things you can do to protect and improve your health and [place] has the resources to support you. - Set a quit date when you are ready to quit. - Get support from your family and friends. - Review any past quit attempts- What helped? What didn't? - On the day you plan to quit, get rid of all cigarettes and tobacco products from your home, car or work. - Using a combination of behavioral counseling or other support strategies and FDA-approved cessation medications is the most effective way to ensure success in quitting. Patient was offered Behavioral Counseling and other support strategies to assist with quitting. Discussion with patient included: - Behavioral counseling or other support strategies greatly increases your chances of successfully quitting smoking or tobacco use by helping you develop a quit plan and providing support and other strategies to make behavioral changes to help you quit. - [place] has a number of behavioral counseling options to help you with quitting, including: * Provide information about the facility smoking or tobacco use treatment options or clinics * [place]'s national quitline, 1-471-WZZW-VET, with counseling available Monday-Monday The patient was not interested in receiving additional information about how to use the treatment options discussed. Patient was offered FDA-approved cessation medications. Discussion with patient included: - Medications for Nicotine replacement therapy such as the patch, gum or lozenge, and other medications such as varenicline or bupropion, can play an important role in the initial weeks and months after you quit smoking or tobacco use. - Medications help with cravings and withdrawal symptoms and they greatly increase your chances of successfully quitting. The patient was not interested in a prescription for tobacco cessation medications. /reginaldo/ DARLENE BOX CERTIFIED NURSE PRACTITIONER Signed: 12/25/2023 18:04 12/25/2023 ADDENDUM STATUS: COMPLETED Please notify patient his A1c went up from 6.7 to 7.7. I sent a referral to clinical pharmacist to discuss further treatment options with him. /reginaldo/ DARLENE BOX CERTIFIED NURSE PRACTITIONER Signed: 12/25/2023 18:08 Receipt Acknowledged By: 12/26/2023 10:35 /chavez LECHUGA RN REGISTERED NURSE 12/26/2023 ADDENDUM STATUS: COMPLETED Spoke with . Advised as requested by PCP. Verbalized understanding. /chavez LECHUGA RN REGISTERED NURSE Signed: 12/26/2023 10:35 TRACY VILLANUEVA [place]ER
--- OUTSIDE RECORDS SUMMARY | 2024-08-16 09:28 | XMS_ITS | Encounter Summary ---
Author Name [facility] [place] [facility] [facility] [place] Address [address] [place] [address] Care Team Providers Care Test Developer Name Role Phone TRACY VILLANUEVA Primary Care [...] Tuttle's Name Patient's Relationship to Policy Tuttle [place] OF [place] (BLUECARD) MEDICARE SUPPLEMEN PHI MEDEX BRONZ E December 19, 2013 [id number] [phone] GUSTAVO ARAMBULA SR PATIENT [employer] MEDICARE SUPPLEMEN PHI MEDIC ARE SUPPL EMENT Jul 21, 2007 NONE [id number] Edgar ARAMBULA PATIENT [place] MED[place] SUPPLEMEN PHI MEDEX BRONZ E December 19, 2013 [id number] GUSTAVO ARAMBULA SR PATIENT [place] OF [place] ([place]ARD) MEDICARE SUPPLEMEN PHI MEDEX BRONZ E December 19, 2013 [id number] FILEMONEEdgar [place] PAT[place] ([place]) MEDICARE () PART A Oct 19, 2004 PART A [id number] FILEMONEEdgar [place] PAT[place]) MEDICARE (M) PART B Oct 19, 2004 PART B [id number] Edgar ARAMBULA [place] PAT[place]) MEDICARE (M) PART A Oct 19, 2004 PART A [id number] Edgar ARAMBULA [place] PAT[place]) MEDICARE (M) PART B Oct 19, 2004 PART B [id number] [phone] FILEMONEEdgar [place] PAT[place]) MEDICARE (M) PART B Oct 19, 2004 PART B [id number] [phone] [id number] SEVABIEEdgar [place] PAT[place]) MEDICARE () PART A Oct 19, 2004 PART A [id number] [phone] FILEMONEEdgar [place] PAT[place]) MEDICARE () PART A Oct 19, 2004 PART A [id number] Egdar ARAMBULA [place]) MEDICARE () PART B Oct 19, 2004 PART B [id number] FILEMONEEdgar [place] PAT[place]) MEDICARE () PART A Oct 19, 2004 PART A [id number] SEVABIEEdgar [place] PAT[place]) MEDICARE () PART B Oct 19, 2004 PART B [id number] Edgar ARAMBULA [place] PATIENT Selected Encounter This section includes the information on record at VA for the Encounter. Date/Time Encounter Type Encounter Description Reason Provider Source Nov 22, 2023 12:14 PM QNHP OL DIG ASSMT&MGMT 5-10 CLINICAL PHARMACY ICD-10-CM Z04.89 Encounter for examination and observation for oth reasons BRIGETTE MURGUIA Encounter Template Text not used by VA Assessments - Encounter Diagnoses This section includes the primary and secondary diagnoses documented for the Encounter. Date/Time Primary/Secondary Diagnosis Diagnosis Name Provider Source Nov 22, 2023 12:19 PM PRIMARY Encounter for examination and observation for oth reasons BRIGETTE MURGUIA [place] [facility] [place] [facility] Plan of Treatment: Future Appointments (+ 6 months) and Future Tests (+/- 45 days) The Plan of Treatment section includes future care activities for the patient from all [place] [facility]. This section includes future appointments and future [...] AMBULATORY - PSYCHIATRY [facility] [place] [facility] December 25, 2023 09:00 AM AMBULATORY - MEDICINE [facility] Feb 05, 2024 10:00 AM AMBULATORY - MEDICINE [facility] [place] [facility] Feb 13, 2024 11:30 AM AMBULATORY - MEDICINE [facility] Feb 15, 2024 09:00 AM AMBULATORY - PSYCHIATRY [facility] [place] [facility] Feb 15, 2024 09:45 AM AMBULATORY - NONE [facility] [place] [facility] Mar 07, 2024 09:00 AM AMBULATORY - PSYCHIATRY [facility] [place] [facility] Mar 08, 2024 08:30 AM AMBULATORY - NONE [facility] [place] [facility] Mar 11, 2024 09:00 AM AMBULATORY - MEDICINE [facility] Apr 04, 2024 11:00 AM AMBULATORY - PSYCHIATRY [facility] [place] [facility] Apr 08, 2024 09:30 AM AMBULATORY - MEDICINE [facility] [place] [facility] Apr 10, 2024 10:45 AM AMBULATORY - MEDICINE [facility] [place] [facility] Apr 26, 2024 11:00 AM AMBULATORY - MEDICINE [facility] [place] [facility] Apr 30, 2024 08:30 AM AMBULATORY - PSYCHIATRY [facility] [place] [facility] May 01, 2024 11:00 AM AMBULATORY - NONE [facility] [place] [facility] May 14, 2024 11:30 AM AMBULATORY - MEDICINE [facility] Social History: Smoking Status (Most current) [...] took place. Date/Time Current Smoking Status Comment [facility] it Dec 13, 2022 03:00 PM VA-TOBACCO USER EVERY DAY [place] [facility] [place] [facility] Tobacco Use History This section includes a history of the smoking, or tobacco-related health factors, that were collected on or before the date of the Encounter. The data comes from the [place] facility where the Encounter took place. Date/Time Smoking Status/Tobac co Use Comment [facility] Dec 13, 2022 03:00 PM VA-TOBACCO USE 30 YEARS OR MORE [facility] [place] [facility] Dec 13, 2022 03:00 PM VA-TOBACCO USE ADVICE [facility] [place] [facility] Dec 13, 2022 03:00 PM VA-TOBACCO USE LEGAL TECHNICIAN NO [facility] [place] [facility] Dec 13, 2022 03:00 PM VA-TOBACCO USE MED NO [facility] [place] [facility] Dec 13, 2022 03:00 PM VA-TOBACCO USER EVERY DAY [facility] [place] [facility] Nov 17, 2021 10:00 AM VA-TOBACCO USE 30 YEARS OR MORE [facility] [place] [facility] Nov 17, 2021 10:00 AM VA-TOBACCO USE ADVICE [facility] [place] [facility] Nov 17, 2021 10:00 AM VA-TOBACCO USE LEGAL TECHNICIAN NO [facility] [place] [facility] Nov 17, 2021 10:00 AM VA-TOBACCO USE MED NO [facility] [place] [facility] Nov 17, 2021 10:00 AM VA-TOBACCO USE WI 30 MIN OF WAKEUP [facility] [place] [facility] Nov 17, 2021 10:00 AM VA-TOBACCO USER EVERY DAY [facility] [place] [facility] Oct 14, 2013 12:55 PM V1-PT NOT INTERESTED IN QUIT TOBACCO USE [facility] May 07, 2013 05:04 PM CURRENT SMOKER trying to stop [facility] [place] May 07, 2013 05:04 PM V1-PT DECLINES REF TO TOBACCO CESS PRGM [facility] May 07, 2013 05:04 PM V1-PT DECLINES TOBACCO CESSATION MEDS [facility] May 07, 2013 05:04 PM V1-PT READY TO QUIT TOBACCO USE [facility] [place] Dec 03, 2012 08:23 AM V1-PT DECLINES REF TO TOBACCO CESS PRGM [facility] [place] [facility] Dec 03, 2012 08:23 AM V1-PT DECLINES TOBACCO CESSATION MEDS [facility] Dec 03, 2012 08:23 AM V1-PT THINKING ABOUT QUIT TOBACCO USE [facility] Jun 05, 2012 08:45 AM CURRENT SMOKER 1/2ppd [facility] [place] [facility] Jun 05, 2012 08:45 AM V1-PT DECLINES REF TO TOBACCO CESS PRGM [facility] [place] [facility] Jun 05, 2012 08:45 AM V1-PT THINKING ABOUT QUIT TOBACCO USE [facility] Jun 05, 2012 08:45 AM V1-TOBACCO CESS MEDS NOT PRESCRIBED Vet wants to talk to his provider-He is nervous about taking meds to quit- but he is interested in quitting [facility] [place] [facility] Nov 25, 2011 09:14 AM V1-PT DECLINES REF TO TOBACCO CESS PRGM [facility] Nov 25, 2011 09:14 AM V1-PT DECLINES TOBACCO CESSATION MEDS [facility] [place] [facility] Nov 25, 2011 09:14 AM V1-PT THINKING ABOUT QUIT TOBACCO USE [facility] May 06, 2011 01:02 PM CURRENT SMOKER [facility] May 06, 2011 01:02 PM V1-PT DECLINES TOBACCO CESSATION MEDS [facility] May 06, 2011 01:02 PM V1-PT NOT INTERESTED IN QUIT TOBACCO USE [facility] [place] [facility] Sep 24, 2010 08:51 AM V1-PT DECLINES TOBACCO CESSATION MEDS [facility] [place] [facility] Sep 24, 2010 08:51 AM V1-PT THINKING ABOUT QUIT TOBACCO USE [facility] [place] [facility] Mar 22, 2010 07:58 AM CURRENT SMOKER 1/2 ppd [facility] [place] [facility] Feb 25, 2009 12:05 PM QUIT TOBACCO USE IN PAST YEAR [facility] [place] [facility] Aug 26, 2008 09:28 AM CURRENT SMOKER 1/2 ppd [facility] [place] [facility] Aug 26, 2008 09:28 AM V1-PT DECLINES REF TO TOBACCO CESS PRGM [facility] [place] [facility] Aug 26, 2008 09:28 AM V1-PT READY TO QUIT TOBACCO USE [facility] [place] [facility] Dec 19, 2007 10:08 AM V1-PT DECLINES REF TO TOBACCO CESS PRGM [facility] [place] [facility] Dec 19, 2007 10:08 AM V1-PT DECLINES TOBACCO CESSATION MEDS [facility] [place] [facility] Dec 19, 2007 10:08 AM V1-PT THINKING ABOUT QUIT TOBACCO USE [facility] [place] [facility] Sep 11, 2007 11:10 AM CURRENT SMOKER [facility] [place] [facility] Sep 11, 2007 11:10 AM V1-PT DECLINES REF TO TOBACCO CESS PRGM [place] [facility] [place] [facility] Sep 11, 2007 11:10 AM V1-PT DECLINES TOBACCO CESSATION MEDS [facility] [place] [facility] Sep 11, 2007 11:10 AM V1-PT THINKING ABOUT QUIT TOBACCO [facility] [place] [facility] Feb 13, 2007 01:46 PM V1-PT DECLINES REF TO TOBACCO CESS PRGM [place] [facility] [place] [facility] Feb 13, 2007 01:46 PM V1-PT DECLINES TOBACCO CESSATION MEDS [facility] [place] [facility] Feb 13, 2007 01:46 PM V1-PT THINKING ABOUT QUIT TOBACCO USE [facility] [place] [facility] Oct 02, 2006 08:28 AM QUIT TOBACCO USE IN PAST YEAR 3 [facility] Aug 19, 2005 08:33 AM QUIT TOBACCO USE IN PAST YEAR nonsmoker [facility] Sep 21, 2004 09:54 AM CURRENT SMOKER [facility] Sep 07, 2004 08:07 AM CURRENT SMOKER [facility] Sep 15, 2003 11:21 AM CURRENT SMOKER smokes one pk day [facility] Jul 23, 2003 01:57 PM CURRENT SMOKER [facility] Advance Directives: All historical and current [...] Apr 10, 2023 ADVANCE DIRECTIVE ESSIE STARK [facility] Apr 19, 2007 ADVANCE DIRECTIVE ELIZABETHSEAMUSJason [facility] Encounter Notes: All associated encounter notes This section contains the clinical notes associated to the Encounter. Date/Time Encounter Note(s) Provider Source Nov 22, 2023 12:14 PM PHARMACY MEDICATIO N MGT NOTE: LOCAL TITLE: PHARMACY ANTICOAGULATION NOTE STANDARD TITLE: PHARMACY MEDICATION MGT NOTE DATE OF NOTE: NOV 22, 2023@12:14 ENTRY DATE: NOV 22, 2023@12:14:46 AUTHOR: BRIGETTE MURGUIA EXP COSIGNER: URGENCY: STATUS: COMPLETED ANTICOAGULATION DOAC MONITORING NOTE SUBJECTIVE: Patient identified through the DOAC population Management Tool based on the following criteria: [ ] Dosing Issue [ ] Critical Drug Interaction [ ] Cancer Treatment [ ] Active NSAID [ ] Labs Overdue [ X ] Prosthetic Valve Replacement [ ] Notable Lab Value [ ] Overdue for Refill [ ] Other: Comments: Patient flagged by DOAC dashboard for prosthetic valve indicated on problem list while on apixaban therapy. OBJECTIVE: Indication for anticoagulation: [ ] Atrial fibrilation [ ] Atrial flutter [ X ] VTE (DVT or PE) [ ] Post-op DVT prophylaxis [ ] Other: Most recent lab values include the following: HGB: HGB Collection DT Specimen Test Name Result Units Ref Range 09/05/2023 10:56 BLOOD HGB 12.1 L g/dL 12.8 - 17 PLT: WBC Collection DT Specimen Test Name Result Units Ref Range 09/05/2023 10:56 BLOOD WBC 5.66 K/cmm 4.50 - 11.00 Liver Function Tests Collection DT Spec AST ALT ALK CLEO ALBUMIN T BILI T. PROT 09/01/2023 10:29 SERUM 14 13 91 3.8 0.5 6.9 HEIGHT: 60.3 in [153.2 cm] (09/25/2023 10:37) WEIGHT: 145 lb [65.77 kg] (09/25/2023 10:37) BMI: BMI: 28.1 CREATININE-EGFR 09/01/23 10:29 0.73 02/23/23 08:48 0.73 12/14/22 07:54 0.81 CRCL IBW: CrCl(est): 54.0 mL/min (Creat:0.73 09/01/23) CRCL ACT: 51.26 mL/min CRCL ADJ: 54.0 mL/min (09/01/23) ASSESSMENT: Action required? 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 PLAN: [ X ] No action required, dismiss flag [ ] Will intervene: [ ] Patient education via phone/letter [ ] Schedule phone/[id number] follow up [ ] Lab ordered [ ] Discontinue interacting medication [ ] Discontinue DOAC [ ] Change to alternative DOAC [ ] Change DOAC dose [ ] Notify PCP [ ] Consult cardiology/hematology [ ] Other: Time spent: 5 minutes /reginaldo/ BRIGETTE MURGUIA, PHARMD, BCPS CLINICAL PHARMACIST PRACTITIONER Signed: 11/22/2023 12:19 BRIGETTE MURGUIA [facility]L TRN [facility]
--- OUTSIDE RECORDS SUMMARY | 2024-08-16 09:28 | XMS_ITS | Encounter Summary ---
Author Name [facility] [facility] [place] [facility] [place] [facility] [place] Address [address] [place] [address] Care Team Providers Care Digital Account Executive Name Role Phone TRACY VILLANUEVA Primary Care [...] PHI MEDEX BRONZ E December 19, 2013 [id number] [phone] GUSTAVO ARAMBULA SR PATIENT [employer] MEDICARE SUPPLEMEN PHI MEDIC ARE SUPPL EMENT Jul 21, 2007 NONE [id number] [phone] Edgar ARAMBULA [place] SUPPLEMEN PHI MEDEX BRONZ E December 19, 2013 [id number] GUSTAVO ARAMBULA SR PATIENT [place] MEDICARE SUPPLEMEN PHI MEDEX BRONZ E December 19, 2013 [id number] [phone] Edgar ARAMBULA [place] PATIENT MEDICARE (WNR) MEDICARE () PART A Oct 19, 2004 PART A [id number] Edgar ARAMBULA [place] PAT[place] MEDICARE (WNR) MEDICARE (M) PART B Oct 19, 2004 PART B [id number] Edgar ARAMBULA [place] PATIENT MEDICARE ([place]NR) MEDICARE () PART A Oct 19, 2004 PART A [id number] Edgar ARAMBULA [place] PAT[place] MEDICARE ([place]NR) MEDICARE () PART B Oct 19, 2004 PART B [id number] [id number] Edgar ARAMBULA [place] PAT[place] MEDICARE ([place]NR) MEDICARE () PART B Oct 19, 2004 PART B [id number] Edgar ARAMBULA [place] PAT[place] MEDICARE ([place]NR) MEDICARE () PART A Oct 19, 2004 PART A [id number] [id number] Edgra ARAMBULA [place] PATIENT MEDICARE (WNR) MEDICARE () PART A Oct 19, 2004 PART A [id number] 90A Edgar ARAMBULA [place] PATIENT MEDICARE ([place]NR) MEDICARE () PART B Oct 19, 2004 PART B [id number] 90A Edgar ARAMBULA [place] PAT[place] MEDICARE ([place]NR) MEDICARE () PART A Oct 19, 2004 PART A [id number] [phone] Edgar ARAMBULAN PATIENT MEDICARE (WNR) MEDICARE () PART B Oct 19, 2004 PART B [id number] [phone] Edgar ARAMBULAN PATIENT Selected Encounter This section includes the information on record at [place] for the Encounter. Date/Time Encounter Type Encounter Description Reason Provider Source Dec 12, 2023 12:49 PM Outpatient Encounter PROSTHETICS/ORTHOTI TRACY GONCALVES Encounter Template Text not used by [place] Plan of Treatment: Future Appointments (+ 6 months) and Future Tests (+/- 45 days) The Plan of Treatment section includes future care activities for the [facility] [place] [facility] This section includes future appointments and future orders which are active, pending or scheduled. Future Appointments This section includes appointments that were scheduled to occur 6 months from the date of the Encounter, up to a maximum of 20 appointments. The data comes from all [place] treatment facilities. Appointment Date/Time Appointment Type Appointme nt Facility Name December 21, 2023 09:00 AM AMBULATORY [facility]IAT[facility] [place] [facility] December 25, 2023 09:00 AM AM[facility]ULATORY - [facility]ICINE [facility] Feb 05, 2024 10:00 AM AMBULATORY - MEDICINE [facility] [place] [facility] Feb 13, 2024 11:30 AM AMBULATORY - MEDICINE [facility] Feb 15, 2024 09:00 AM AMBULATORY - PS[facility]CHIATRY [facility] [place] [facility] Feb 15, 2024 09:45 AM AMBULATORY - NONE [facility] [place] [facility] Mar 07, 2024 09:00 AM AMBULATORY - PS[facility]CHIATRY [facility] [place] [facility] Mar 08, 2024 08:30 AM AMBULATORY - NONE [facility] [place] [facility] Mar 11, 2024 09:00 AM AMBULATORY - MEDICINE [facility] Apr 04, 2024 11:00 AM AMBULATORY - PS[facility]CHIATRY [facility] [place] [facility] Apr 08, 2024 09:30 AM AMBULATORY - MEDICINE [facility] [place] [facility] Apr 10, 2024 10:45 AM AMBULATORY - MEDICINE [facility] [place] [facility] Apr 26, 2024 11:00 AM AMBULATORY - MEDICINE [facility] [place] [facility] Apr 30, 2024 08:30 AM AMBULATORY - PSYCHIATRY [facility] [place] [facility] May 01, 2024 11:00 AM AMBULATORY - NONE [facility] [place] [facility] May 14, 2024 11:30 AM AMBULATORY - MEDICINE [facility] May 31, 2024 11:00 AM AMBULATORY - REHAB MEDICIN E [facility] [place] [facility] May 31, 2024 12:00 PM AMBULATORY - MEDICINE [facility] [place] [facility] Jun 10, 2024 10:00 AM AMBULATORY - MEDICINE [facility] Jun 11, 2024 09:30 AM AMBULATORY - PSYCHIATRY [facility] Lab Results: +/- 30 days of the encounter This section includes the Chemistry and Hematology Lab Results on record with [place] for the patient. Radiology Reports and Pathology Reports are provided separately, in subsequent sections. Lab Results This section contains the Chemistry/Hematology Results that were resulted 30 days before or 30 daysafter the date of the Encounter. Date/Time Source Result Type Result - Unit Interpretation Reference Range Comment December 25, 2023 09:26 AM [place] FERRITIN Specimen Type: SERUM No comment entered. Ordering Provider: TRACY VILLANUEVA Report Released Date/Time: Dec 19, 2023 08:37 AM Reporting Lab: [address] [address] Performing Lab: [address] [address] FERRITIN 25 ng/mL 20-300 December 25, 2023 09:26 AM [place] HEMOGLOBIN A1C PANEL Specimen Type: BLOOD Comment: [...] Dec 19, 2023 08:37 AM Reporting Lab: [address] [address] Performing Lab: [address] [address] HEMOGLOBIN A1C 7.7 H 4.0-5.6 December 25, 2023 09:26 AM [place] LIVER FUNCTION Specimen Type: SERUM No comment entered. Ordering Provider: TRACY VILLANUEVA Report Released Date/Time: Dec 19, 2023 08:37 AM Reporting Lab: [address] [address] Performing Lab: [address] [address] PROTEIN,TOTAL 7.0 g/dL 6.0-8.3 ALBUMIN 3.9 g/dL 3.5-5.0 ALKALINE PHOSPHATASE 90 U/L 40-150 AST 17 U/L 5-34 ALT 20 U/L BILIRUBIN, TOTAL 0.6 mg/dL 0.2-1.2 December 25, 2023 09:26 AM [place] BASIC METABOLIC PANEL (non-fasting) Spe cimen Type: SERUM No comment entered. Ordering Provider: TRACY VILLANUEVA Report Released Date/Time: Dec 19, 2023 08:37 AM Reporting Lab: [address] [address] Performing Lab: [address] [address] UREA NITROGEN 12 mg/dL 7-25 GLUCOSE 240 mg/dL H 65-100 SODIUM 135 mmol/L 135-145 POTASSIUM 4.2 mmol/L 3.5-5.0 CHLORIDE 102 mmol/L 100-110 CO2 24 meq/L 20-30 CREATININE, Serum 0.78 mg/dL 0.50-1.40 eGFR(CKD-EPI 2020) 88 mL/min >60 December 25, 2023 09:26 AM [place] CBC Specimen Type: BLOOD No comment entered. Ordering Provider: TRACY VILLANUEVA Report Released Date/Time: Dec 19, 2023 08:37 AM Reporting Lab: [address] [address] Performing Lab: [address] [address] WBC 9.74 10*3/uL 4.50-11.00 RBC 4.50 10*6/uL 4.23-5.66 HGB 12.5 g/dL L 12.8-17 HCT 36.2 L 39.2-50.4 MCV 80.4 fL L 82-99 MCHC 34.5 g/dL 30.8-35.1 PLT 275 10*3/uL 140-360 RDW-CV 13.7 12.0-16.0 MCH 27.8 pg 26.2-32.6 December 25, 2023 09:26 AM [place] MICROALBUMIN CREATININE RATIO PANEL Spe cimen Type: URINE No comment entered. Ordering Provider: TRACY VILLANUEVA Report Released Date/Time: Dec 19, 2023 08:37 AM Reporting Lab: [facility] [place] [facility] [address] [facility] [address] Performing Lab: [place] [facility] [place] [facility] [address] [facility] [address] MICROALBUMIN/C REATININE RATIO 23.9 mg/g 0-29.9 MICROALBUMIN,Q UANTITATIVE 0.7 mg/dL RR UNAVAIL CREATININE URINE 29.30 mg/dL Social History: Smoking Status (Most current) and Tobacco Use (All prior to encounter date) This section includes the most current, and the historical, smoking and tobacco- related health factors from the [place] facility where the Encounter took place. Current Smoking Status This section includes the most current smoking, or tobacco-related health factor, from the [place] facility where the Encounter took place. Date/Time Current Smoking Status Comment [facility] it Dec 13, 2022 03:00 PM VA-TOBACCO USER EVERY DAY [place] [facility] Tobacco Use History This section includes a history of the smoking, or tobacco-related health factors, that were collected on or before the date of the Encounter. The data comes from the [place] facility where the Encounter took place. 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 [facility] [place] [facility] Dec 13, 2022 03:00 PM VA-TOBACCO USE MED NO [facility] [place] [facility] Dec 13, 2022 03:00 PM VA-TOBACCO USER EVERY DAY [facility] [place] [facility] Nov 17, 2021 10:00 AM VA-TOBACCO USE 30 YEARS OR MORE [facility] [place] [facility] Nov 17, 2021 10:00 AM VA-TOBACCO USE ADVICE [facility] [place] [facility] Nov 17, 2021 10:00 AM 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 Oct 14, 2013 12:55 PM V1-PT NOT INTERESTED IN QUIT TOBACCO USE [facility] May 07, 2013 05:04 PM CURRENT SMOKER trying to stop [facility] May 07, 2013 05:04 PM V1-PT DECLINES REF TO TOBACCO CESS [facility] May 07, 2013 05:04 PM V1-PT DECLINES TOBACCO CESSATION MEDS [facility] May 07, 2013 05:04 PM V1-PT READY TO QUIT TOBACCO USE [facility] Dec 03, 2012 08:23 AM V1-PT DECLINES REF TO TOBACCO CESS PRGM [facility] Dec 03, 2012 08:23 AM V1-PT DECLINES TOBACCO CESSATION MEDS [facility] Dec 03, 2012 08:23 AM V1-PT THINKING ABOUT QUIT TOBACCO USE [facility] Jun 05, 2012 08:45 AM CURRENT SMOKER 1/2ppd [facility] Jun 05, 2012 08:45 AM V1-PT DECLINES REF TO TOBACCO CESS [facility] Jun 05, 2012 08:45 AM V1-PT THINKING ABOUT QUIT TOBACCO USE [facility] Jun 05, 2012 08:45 AM V1-TOBACCO CESS MEDS NOT PRESCRIBED Vet wants to talk to his provider-He is nervous about taking meds to quit- but he is interested in quitting [facility] Nov 25, 2011 09:14 AM V1-PT DECLINES REF TO TOBACCO CESS PRGM [facility] Nov 25, 2011 09:14 AM V1-PT DECLINES TOBACCO CESSATION MEDS [facility] Nov 25, 2011 09:14 AM V1-PT THINKING ABOUT QUIT TOBACCO USE [facility] [place] [facility] May 06, 2011 01:02 PM CURRENT SMOKER [facility] [place] [facility] May 06, 2011 01:02 PM V1-PT DECLINES TOBACCO CESSATION MEDS [facility] [place] [facility] May 06, 2011 01:02 PM V1-PT NOT INTERESTED IN QUIT TOBACCO USE [facility] [place] [facility] Sep 24, 2010 08:51 AM V1-PT DECLINES TOBACCO CESSATION MEDS [facility] [place] [facility] Sep 24, 2010 08:51 AM V1-PT THINKING ABOUT QUIT TOBACCO USE [facility] [place] [facility] Mar 22, 2010 07:58 AM CURRENT SMOKER 1/2 ppd [facility] [place] [facility] Feb 25, 2009 12:05 PM QUIT TOBACCO USE IN PAST YEAR [facility] [place] [facility] Aug 26, 2008 09:28 AM CURRENT SMOKER 1/2 ppd [facility] [place] [facility] Aug 26, 2008 09:28 AM V1-PT DECLINES REF TO TOBACCO CESS PRGM [facility] [place] [facility] Aug 26, 2008 09:28 AM V1-PT READY TO QUIT TOBACCO USE [facility] [place] [facility] Dec 19, 2007 10:08 AM V1-PT DECLINES REF TO TOBACCO CESS PRGM [facility] [place] [facility] Dec 19, 2007 10:08 AM V1-PT DECLINES TOBACCO CESSATION MEDS [facility] [place] [facility] Dec 19, 2007 10:08 AM V1-PT THINKING ABOUT QUIT TOBACCO USE [facility] [place] [facility] Sep 11, 2007 11:10 AM CURRENT SMOKER [facility] [place] [facility] Sep 11, 2007 11:10 AM V1-PT DECLINES REF TO TOBACCO CESS PRGM [facility] [place] [facility] Sep 11, 2007 11:10 AM V1-PT DECLINES TOBACCO CESSATION MEDS [facility] [place] [facility] Sep 11, 2007 11:10 AM V1-PT THINKING ABOUT QUIT TOBACCO USE [facility] [place] [facility] Feb 13, 2007 01:46 PM V1-PT DECLINES REF TO TOBACCO CESS PRGM [facility] Feb 13, 2007 01:46 PM V1-PT DECLINES TOBACCO CESSATION MEDS [facility] Feb 13, 2007 01:46 PM V1-PT THINKING ABOUT QUIT TOBACCO USE [facility] Oct 02, 2006 08:28 AM QUIT TOBACCO USE IN PAST YEAR 3 months ago [facility] Aug 19, 2005 08:33 AM QUIT TOBACCO USE IN PAST YEAR nonsmoker [facility] Sep 21, 2004 09:54 AM CURRENT SMOKER [facility] Sep 07, 2004 08:07 AM CURRENT SMOKER [facility] Sep 15, 2003 11:21 AM CURRENT SMOKER smokes one pk day [facility] Jul 23, 2003 01:57 PM CURRENT SMOKER [facility] Advance Directives: All historical and current Section Date Range: From patient's date of to the date document was created. This section includes ALL of a patient's completed or amended [place] Advance and Rescinded Directives. The entries below indicate that a directive exists for the patient, but an actual copy is not included with this document. The data comes from all [place] facilities. Date Advance Directives Provider Source Apr 10, 2023 ADVANCE DIRECTIVE ESSIE STARK [facility] Apr 19, 2007 ADVANCE DIRECTIVE VICTORIA JOHNSON [facility]
--- OUTSIDE RECORDS SUMMARY | 2024-08-16 09:28 | XMS_ITS | Encounter Summary ---
Author Name [facility] [place] Organization [facility] [place] Address [address] [place] [address] Care Team Providers Care Games Dealer Name Role Phone TRACY VILLANUEVA Primary Care [...] PHI MEDEX BRONZ E December 19, 2013 [id number] [phone] GUSTAVO ARAMBULA SR PATIENT [employer]UAL[employer] MEDICARE SUPPLEMEN PHI MEDIC ARE SUPPL EMENT Jul 21, 2007 NONE [id number] Edgar ARAMBULA PATIENT [place] MED[place] SUPPLEMEN PHI MEDEX BRONZ E December 19, 2013 [id number] GUSTAVO ARAMBULA SR PATIENT [place] OF [place] ([place] MEDICARE SUPPLEMEN PHI MEDEX BRONZ E December 19, 2013 [id number] Edgar ARAMBULA [place] PATIENT MEDICARE (WNR) MEDICARE (M) PART A Oct 19, 2004 PART A [id number] Edgar ARAMBULA [place] PATIENT MEDICARE (WNR) MEDICARE (M) PART B Oct 19, 2004 PART B [id number] Edgar ARAMBULA [place] PATIENT MEDICARE (WNR) MEDICARE (M) PART A Oct 19, 2004 PART A [id number] Edgar ARAMBULA [place] PATIENT MEDICARE (WNR) MEDICARE (M) PART B Oct 19, 2004 PART B [id number] Edgar ARAMBULA [place] PATIENT MEDICARE (WNR) MEDICARE (M) PART A Oct 19, 2004 PART A [id number] Edgar ARAMBULA [place] PATIENT MEDICARE (WNR) MEDICARE () PART B Oct 19, 2004 PART B [id number] Edgar ARAMBULA [place] PATIENT MEDICARE (WNR) MEDICARE () PART A Oct 19, 2004 PART A [id number] Edgar ARAMBULA [place] PATIENT MEDICARE (WNR) MEDICARE () PART B Oct 19, 2004 PART B [id number] FILEMONEEdgar [place] PATIENT MEDICARE (WNR) MEDICARE () PART A Oct 19, 2004 PART A [id number] Edgar ARAMBULA [place] PATIENT MEDICARE (WNR) MEDICARE () PART B Oct 19, 2004 PART B [id number] Edgar ARAMBULAN PATIENT Selected Encounter This section includes the information on record at [place] for the Encounter. Date/Time Encounter Type Encounter Description Reason Provider Source December 21, 2023 09:00 AM OFFICE O/P EST MOD 30 MIN [facility] - IND ICD-10-CM F33.9 Major depressive disorder, recurrent, unspecified JOSEY COLINDRES Encounter Template Text not used by [place] Assessments - Encounter Diagnoses This section includes the primary and secondary diagnoses documented for the Encounter. Date/Time Primary/Secondary Diagnosis Diagnosis Name Provider Source December 21, 2023 10:25 AM PRIMARY Major depressive disorder, recurrent, unspecified JOSEY COLINDRES [facility] [place] [facility] December 21, 2023 10:25 AM SECONDARY Other insomnia IZAIAH COLINDRESKONSTANTIN Jason Lockhart [facility] [place] [facility] December 21, 2023 10:25 AM SECONDARY Tobacco use JOSEY COLINDRES E [facility] [place] [facility] Plan of Treatment: Future Appointments (+ 6 months) and Future Tests (+/- 45 days) The Plan of Treatment section includes future care activities for the patient from all [place] [facility]. This section includes future appointments and future orders which are active, pending or scheduled. Future Appointments This section includes appointments that were scheduled to occur 6 months from the date of the Encounter, up to a maximum of 20 appointments. The data comes from all [place] treatment facilities. Appointment Date/Time Appointment Type Appointme nt Facility Name December 25, 2023 09:00 AM [facility]BULATORY - MEDICINE [facility] Feb 05, 2024 10:00 AM AMBULATORY - MEDICINE [facility] [place] [facility] Feb 13, 2024 11:30 AM AMBULATORY - MEDICINE [facility] Feb 15, 2024 09:00 AM AMBULATORY - PSYCHIATRY [facility] [place] [facility] Feb 15, 2024 09:45 AM AMBULATORY - NONE [facility] [place] [facility] Mar 07, 2024 09:00 AM AMBULATORY - PSYCHIATRY [facility] [place] [facility] Mar 08, 2024 08:30 AM AMBULATORY - NONE [facility] [place] [facility] Mar 11, 2024 09:00 AM AM[facility]ULATORY - MEDICINE [facility] Apr 04, 2024 11:00 AM AMBULATORY - PSYCHIATRY [facility] [place] [facility] Apr 08, 2024 09:30 AM AMBULATORY - MEDICINE [facility] [place] [facility] Apr 10, 2024 10:45 AM AMBULATORY - MEDICINE PR [facility] [place] [facility] Apr 26, 2024 11:00 AM AMBULATORY - MEDICINE [facility] [place] [facility] Apr 30, 2024 08:30 AM AMBULATORY - PSYCHIATRY [facility] [place] [facility] May 01, 2024 11:00 AM AMBULATORY - NONE [facility] [place] [facility] May 14, 2024 11:30 AM [facility] May 31, 2024 11:00 AM AMBULATORY - REHAB MEDICIN E [facility] [place] [facility] May 31, 2024 12:00 PM AMBULATORY - MEDICINE [facility] [place] [facility] Jun 10, 2024 10:00 AM AMBULATORY - MEDICINE [facility] Jun 11, 2024 09:30 AM AMBULATORY - PSYCHIATRY [facility] [place] [facility] Jun 13, 2024 10:00 AM [facility]UL[facility]IC[facility] Lab Results: +/- 30 days of the encounter This section includes the Chemistry and Hematology Lab Results on record with [place] for the patient. Radiology Reports and Pathology Reports are provided separately, in subsequent sections. Lab Results This section contains the Chemistry/Hematology Results that were resulted 30 days before or 30 daysafter the date of the Encounter. Date/Time Source Result Type Result - Unit Interpretation Reference Range Comment December 25, 2023 09:26 AM [place] FERRITIN Specimen Type: SERUM No comment entered. Ordering Provider: TRACY VILLANUEVA Report Released Date/Time: Dec 19, 2023 08:37 AM Reporting Lab: [address] [address] Performing Lab: [address] [address] FERRITIN 25 ng/mL 20-300 December 25, 2023 09:26 AM [place] HEMOGLOBIN A1C PANEL Specimen Type: BLOOD Comment: [...] Dec 19, 2023 08:37 AM Reporting Lab: [address] [address] [facility]: [facility] [address] [address] HEMOGLOBIN A1C 7.7 H 4.0-5.6 December 25, 2023 09:26 AM [place] LIVER FUNCTION Specimen Type: SERUM No comment entered. Ordering Provider: TRACY VILLANUEVA Report Released Date/Time: Dec 19, 2023 08:37 AM Reporting [facility] [address] [address] Performing Lab: [address] [address] PROTEIN,TOTAL 7.0 g/dL 6.0-8.3 ALBUMIN 3.9 g/dL 3.5-5.0 ALKALINE PHOSPHATASE 90 U/L 40-150 AST 17 U/L 5-34 ALT 20 U/L BILIRUBIN, TOTAL 0.6 mg/dL 0.2-1.2 December 25, 2023 09:26 AM [place] BASIC METABOLIC PANEL (non-fasting) Spe cimen Type: SERUM No comment entered. Ordering Provider: TRACY VILLANUEVA Report Released Date/Time: Dec 19, 2023 08:37 AM Reporting Lab: [address] [address] Performing Lab: [address] [address] UREA NITROGEN 12 mg/dL 7-25 GLUCOSE 240 mg/dL H 65-100 SODIUM 135 mmol/L 135-145 POTASSIUM 4.2 mmol/L 3.5-5.0 CHLORIDE 102 mmol/L 100-110 CO2 24 meq/L 20-30 CREATININE, Serum 0.78 mg/dL 0.50-1.40 eGFR(CKD-EPI 2020) 88 mL/min >60 December 25, 2023 09:26 AM [place] CBC Specimen Type: BLOOD No comment entered. Ordering Provider: TRACY VILLANUEVA Report Released Date/Time: Dec 19, 2023 08:37 AM Reporting Lab: [address] [address] Performing Lab: [address] [address] WBC 9.74 10*3/uL 4.50-11.00 RBC 4.50 10*6/uL 4.23-5.66 HGB 12.5 g/dL L 12.8-17 HCT 36.2 L 39.2-50.4 MCV 80.4 fL L 82-99 MCHC 34.5 g/dL 30.8-35.1 PLT 275 10*3/uL 140-360 RDW-CV 13.7 12.0-16.0 MCH 27.8 pg 26.2-32.6 December 25, 2023 09:26 AM [place] MICROALBUMIN CREATININE RATIO PANEL Spe cimen Type: URINE No comment entered. Ordering Provider: TRACY VILLANUEVA Report Released Date/Time: Dec 19, 2023 08:37 AM Reporting Lab: [facility] [address] [facility] [address] Performing Lab: [address] [address] MICROALBUMIN/C REATININE RATIO 23.9 mg/g 0-29.9 MICROALBUMIN,Q [...] place. Date/Time Current Smoking Status Comment Lopez hurt Dec 13, 2022 03:00 PM VA-TOBACCO USER EVERY DAY [facility] Tobacco Use History This section includes a history of the smoking, or tobacco-related health factors, that were collected on or before the date of the Encounter. The data comes from the [place] facility where the Encounter took place. Date/Time Smoking Status/Tobac co Use Comment Facility Dec 13, 2022 03:00 PM VA-TOBACCO USE 30 YEARS OR MORE [facility] Dec 13, 2022 03:00 PM VA-TOBACCO USE ADVICE [facility] Dec 13, 2022 03:00 PM VA-TOBACCO USE SOAKER HIDES NO [facility] [place] [facility] Dec 13, 2022 03:00 PM VA-TOBACCO USE MED NO [facility] [place] [facility] Dec 13, 2022 03:00 PM VA-TOBACCO USER EVERY DAY [facility] [place] [facility] Nov 17, 2021 10:00 AM VA-TOBACCO USE 30 YEARS OR MORE [facility] [place] [facility] Nov 17, 2021 10:00 AM VA-TOBACCO USE ADVICE [facility] [place] [facility] Nov 17, 2021 10:00 AM VA-TOBACCO USE SOAKER HIDES NO [facility] [place] [facility] Nov 17, 2021 10:00 AM VA-TOBACCO USE MED NO [facility] [place] [facility] Nov 17, 2021 10:00 AM VA-TOBACCO USE WI 30 MIN OF WAKEUP [facility] [place] [facility] Nov 17, 2021 10:00 AM VA-TOBACCO USER EVERY DAY [facility] [place] [facility] Oct 14, 2013 12:55 PM V1-PT NOT INTERESTED IN QUIT TOBACCO USE [facility] [place] [facility] May 07, 2013 05:04 PM CURRENT SMOKER trying to stop [facility] [place] [facility] May 07, 2013 05:04 PM V1-PT DECLINES REF TO TOBACCO CESS PRGM [facility] [place] [facility] May 07, 2013 05:04 PM V1-PT DECLINES TOBACCO CESSATION MEDS [facility] [place] [facility] May 07, 2013 05:04 PM V1-PT READY TO QUIT TOBACCO USE [facility] [place] [facility] Dec 03, 2012 08:23 AM V1-PT DECLINES REF TO TOBACCO CESS PRGM [facility] [place] [facility] Dec 03, 2012 08:23 AM V1-PT DECLINES TOBACCO CESSATION MEDS [facility] [place] [facility] Dec 03, 2012 08:23 AM V1-PT THINKING ABOUT QUIT TOBACCO USE [facility] [place] [facility] Jun 05, 2012 08:45 AM CURRENT SMOKER 1/2ppd [facility] [place] [facility] Jun 05, 2012 08:45 AM V1-PT DECLINES REF TO TOBACCO CESS PRGM [facility] Jun 05, 2012 08:45 AM V1-PT THINKING ABOUT QUIT TOBACCO USE [facility] [place] [facility] Jun 05, 2012 08:45 AM V1-TOBACCO CESS MEDS NOT PRESCRIBED Vet wants to talk to his provider-He is nervous about taking meds to quit- but he is interested in quitting [facility] Nov 25, 2011 09:14 AM V1-PT DECLINES REF TO TOBACCO CESS PRGM [facility] Nov 25, 2011 09:14 AM V1-PT DECLINES TOBACCO CESSATION MEDS [facility] Nov 25, 2011 09:14 AM V1-PT THINKING ABOUT QUIT TOBACCO USE [facility] May 06, 2011 01:02 PM CURRENT SMOKER [facility] May 06, 2011 01:02 PM V1-PT DECLINES TOBACCO CESSATION MEDS [facility] May 06, 2011 01:02 PM V1-PT NOT INTERESTED IN QUIT TOBACCO USE [facility]RN [facility] Sep 24, 2010 08:51 AM V1-PT DECLINES TOBACCO CESSATION MEDS [facility] Sep 24, 2010 08:51 AM V1-PT THINKING ABOUT QUIT TOBACCO USE [facility] Mar 22, 2010 07:58 AM CURRENT SMOKER 1/2 ppd [facility] Feb 25, 2009 12:05 PM QUIT TOBACCO USE IN PAST YEAR [facility] [place] [facility] Aug 26, 2008 09:28 AM CURRENT SMOKER 1/2 ppd PR [facility]TR [facility] Aug 26, 2008 09:28 AM V1-PT DECLINES REF TO TOBACCO CESS [facility] Aug 26, 2008 09:28 AM V1-PT READY TO QUIT TOBACCO USE [facility] Dec 19, 2007 10:08 AM V1-PT DECLINES REF TO TOBACCO CESS PRGM PR CNTR [facility] Dec 19, 2007 10:08 AM V1-PT DECLINES TOBACCO CESSATION MEDS [facility] Dec 19, 2007 10:08 AM V1-PT THINKING ABOUT QUIT TOBACCO USE PR [facility] Sep 11, 2007 11:10 AM CURRENT SMOKER [facility] Sep 11, 2007 11:10 AM V1-PT DECLINES REF TO TOBACCO CESS PRGM [facility] Sep 11, 2007 11:10 AM V1-PT DECLINES TOBACCO CESSATION MEDS [facility] Sep 11, 2007 11:10 AM V1-PT THINKING ABOUT QUIT TOBACCO USE [facility] Feb 13, 2007 01:46 PM V1-PT DECLINES REF TO TOBACCO CESS PRGM PR [facility]TR [facility] Feb 13, 2007 01:46 PM V1-PT DECLINES TOBACCO CESSATION MEDS [facility] Feb 13, 2007 01:46 PM V1-PT THINKING ABOUT QUIT TOBACCO USE [facility] Oct 02, 2006 08:28 AM QUIT TOBACCO USE IN PAST YEAR 3 months ago [facility] Aug 19, 2005 08:33 AM QUIT TOBACCO USE IN PAST YEAR [facility] Sep 21, 2004 09:54 AM [facility] Sep 07, 2004 08:07 AM [facility]RENT [facility]KER [facility] Sep 15, 2003 11:21 AM CURRENT SMOKER smokes one pk day [facility] Jul 23, 2003 01:57 PM CURRENT [facility]MOKER [facility] Advance Directives: All historical and current [...] ADVANCE DIRECTIVE ESSIE STARK [facility] Apr 19, 2007 ADVANCE DIRECTIVE VICTORIA JOHNSON [facility] Encounter Notes: All associated encounter notes This section contains the clinical notes associated to the Encounter. Date/Time Encounter Note(s) Provider Source December 21, 2023 10:24 AM MENTAL HEALTH TREATMENT PLAN NOTE: LOCAL TITLE: MH TREATMENT PLAN STANDARD TITLE: MENTAL HEALTH TREATMENT PLAN NOTE DATE OF NOTE: DECEMBER 21, 2023@10:24:35 ENTRY DATE: DECEMBER 21, 2023@10:24:45 AUTHOR: LANA COLINDRES EXP COSIGNER: URGENCY: STATUS: COMPLETED MH TREATMENT PLAN - December, @ 10:24AM Visit Date: December, @ 09:00 - OFELIA/CYNTHIA/JESSICA/BERNADINE 1 MH RN PSYCHIATRIC: LANA COLINDRES / JOSE Gomez TEAM MEMBERS: LANA COLINDRES: PSYCHIATRIST MENTAL HEALTH DIAGNOSES AND RELEVANT MEDICAL CONDITIONS: Depression ([facility] [id number]) Specifiers: Mild nicotine use disorder insomnia SIGNIFICANT PSYCHOSOCIAL AND CONTEXTUAL FACTORS: Chronic medical problems Familial Problems TREATMENT PLAN: Problem: Cigarette Smoking Goal: Smoking cessation Objective: Pt will report no cigarettes smoked Projected Target Date: 08/10/2022 Intervention: -Medication management, smoking cessation counseling Time Frame: Five times per year for 1 year Treating Specialty: Mental Health Clinic Renewal Date: 02/08/2023 Entered Treatment: 02/08/2022 @ 09:31AM Anticipated Discharge: None Actual Discharge: None Problem: Mild Depression Goal: Symptoms of depression will remit Objective: Pt will score less that 6 on PHQ 9 Projected Target Date: 08/10/2022 Intervention: -medication management Providers: LANA COLINDRES Time Frame: Five times per year for 5 years Treating Specialty: Mental Health Clinic Renewal Date: 02/08/2023 Entered Treatment: 02/08/2022 @ 09:31AM Anticipated Discharge: None Actual Discharge: None PARTICIPATION IN TREATMENT PLANNING: Relevant treatment options, including evidence-based interventions, were considered and discussed with the [place]. AGREED TO PLAN DISCUSSED. /reginaldo/ LANA COLINDRES PSYCHIATRIST Signed: 12/21/2023 10:24 LANA COLINDRES [facility] December 21, 2023 09:01 AM PSYCHIATRY NOTE: LOCAL TITLE: PSYCHIATRY NOTE STANDARD TITLE: PSYCHIATRY NOTE DATE OF NOTE: DECEMBER 21, 2023@09:01 ENTRY DATE: DECEMBER 21, 2023@09:01:24 AUTHOR: LANA COLINDRES COSIGNER: URGENCY: STATUS: COMPLETED PSYCHIATRY FOLLOW UP VISIT GUSTAVO ARAMBULA SR is a 83yo MARITAL STATUS - WHITE MALE with a history of [employer] FROM December TO Oct INTERVAL HISTORY Feels he is getting past the depressive aspect of grief and has been more active. Adjusting to living alone--how to shop, having to cook, which is going ok. Working projects in the yard, artwork (paint by number). Going to restoration (muslim) and is contributing to food pantry. Suzi's granddaughters helped to clean some belongings out. Has been a month without dentures, but they should be ready end of December. Son was ordering him pureed meal. He prefers to clean himself, does not want assistance. Has been struggling with memory. yesterday came to the appt on the wrong day. Notes difficulty with STM. Energy has been good-- never got pitolisant, and is ok without for now. He is very active through the day. Has one close friend, John, and they have breakfast on Saturdays. Continues to drive, and tends to stay off highways and only go short distances. Denies any recent problems or getting lost. CURRENT MEDICATIONS Active Outpatient Medications (including Supplies): [...] (REMOVE PATCH BEFORE APPLYING A NEW PATCH) BUPROPION HCL 200MG 12HR SA TAB TAKE ONE TABLET BY MOUTH ACTIVE EVERY MORNING DEPRESSION MELATONIN 5MG CAP/TAB TAKE ONE CAPSULE/TABLET BY MOUTH AT ACTIVE BEDTIME FOR INSOMNIA METFORMIN HCL 750MG 24HR SA TAB TAKE TWO TABLETS BY MOUTH ACTIVE ONCE DAILY FOR TYPE 2 DIABETES MELLITUS MIRTAZAPINE 30MG TAB TAKE ONE-HALF TABLET BY MOUTH AT ACTIVE BEDTIME FOR DEPRESSION/MOOD PANTOPRAZOLE NA 40MG EC TAB TAKE ONE TABLET BY MOUTH EVERY ACTIVE MORNING 30 MINUTES BEFORE BREAKFAST PREGABALIN 25MG ORAL CAP TAKE ONE CAPSULE BY MOUTH THREE ACTIVE TIMES A DAY SENNOSIDES 8.6MG TAB TAKE ONE TABLET BY MOUTH TWICE DAILY ACTIVE NEEDED FOR CONSTIPATION TRAZODONE HCL 100MG TAB TAKE ONE-HALF TABLET BY MOUTH AT ACTIVE BEDTIME INSOMNIA TRIAMCINOLONE ACETONIDE 0.1% CREAM APPLY A THIN LAYER HOLD TOPICALLY EVERY 5 DAYS SUPPLEMENTS: ALLERGIES: GEMFIBROZIL, LISINOPRIL MEDICAL HISTORY Active Problem Chronic pain G89.4 11/06/2023 JOSE NORTON Chronic anaemia D64.9 09/25/2023 TRACY VILLANUEVA Diabetes mellitus type 2 E11.9 09/25/2023 TRACY VILLANUEVA Long-term current use of anticoagul 02/10/2023 HAY CORONA Communication authorization R69. 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 02/09/2023 YULY AUSTIN JAWRUBEN Abnormal imaging R93.421 02/09/2023 YULY AUSTIN Aortic valve stenosis I35.0 09/18/2022 DANIELE CHILDS Aneurysm of ascending aorta I71.21 09/18/2022 DANIELE CHILDS Osteopenia M85.80 08/15/2022 DANIELE CHILDS Sleep apnea G47.30 09/03/2022 DANIELE CHILDS Admits alcohol use F10.90 08/08/2022 GALDINO KIRBY Insomnia G47.09 03/22/2022 LANA COLINDRES Chronic obstructive lung disease J4 11/17/2021 CAITLIN PENA History of peripheral vascular dise 11/17/2021 CAITLIN PENA Jc's esophagus 530.85 10/31/2013 JOVANY NAYLOR Disorder of lumbar disc (SNOMED CT 09/25/2023 TRACY VILLANUEVA Depression (SNOMED CT [id number]) F33 12/10/2021 TRAVIS GOMES Dry Eye Syndromes * (ICD-9-CM 375.1 03/17/2009 SOURAV JARQUINENCE P OD Late effect of fracture of skull an 12/03/2008 JOVANY NALYOR Artificial hip joint present (SNOME 09/25/2023 TRACY VILLANUEVA Osteoarthritis of right hip joint ( 09/25/2023 TRACY VILLANUEVA Prostate, 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., Ons 04/22/2008 JOVANY NAYLOR Cataract, Cortical (Senile) 366.15 05/04/2006 NAHED JARQUIN P OD Open Angle Glaucoma Suspect 365.01 05/04/2006 NAHED JARQUIN P OD HYPERLIPIDEMIA 272.4 09/15/2003 FABY JOY HYPERTENSION 401.9 09/15/2003 FABY JOY POLYPS, COLON/LG BOWEL (BENIGN MAEGAN 10/31/2013 JOVANY NAYLOR Tobacco use (SNOMED CT 188370128) Z 11/28/2022 LANA COLINDRES BMI: 28.1 SUBSTANCE USE: Alcohol: None MJ: None Tobacco: 3-10 cigarettes a day Caffeine: 1 cup daily Opiates: denies Cocaine: [...] Denies today a/ox4 I/J good COGNITION MOCA: [place] making: intact Cube: Intact Clock 3/3 Naming intact Registration: had some difficulty with registration but registered 5 words with multiple trials Recall: 3/5, 5/5 with cues and multiple choice Digit span 1/2 Serial 7's 2/3 Languane and abstraction intact Oriented to exact date and place Score: 27/30 Cognitively doing well in terms of executive function, planning, organization. Working memory and attention seems to struggle some, but is able to recall with prompts. No signs of Alzheimers. ASESSMENT 82yo man, living alone (partner Suzi [...] of falls on trazodone and mirtazapine. PLAN -low dose lithium for dementia prophylaxis and mood. We reviewed risks and vet would liek to try. Any adverse effects and we can switch to lithium orotate 5mg over the counter. -cont to work on smoking cessation -reduce trazodone to 50mg at bedtime -cont pregabalin 25mg TID--will defer to Pain Management regarding adjustment. - Continue bupropion SR to 200mg qam for mood/ smoking. - Cont mirtazapine dose to 15 mg nightly - Cont melatonin 5 mg at HS for sleep - [facility] Sleep medicine, encouraged CPAP use all night - Cardiology - Hematology F/U - Pain management follow up REFILLS/COVERAGE okay for refills FOLLOW UP IN CLINIC 2mos TIME SPENT FACE TO FACE:25m TOTAL TIME INCLUDING CHART REVIEW AND DOCUMENTATION:35m SUICDE RISK ASSESSMENT: RISK ASSESSMENT: Suicide/Homicide Risk [...] [facility] and [facility] from another [place] or [facility] facility (remote) as well as inpatient orders [...] and updated. /reginaldo/ LANA COLINDRES PSYCHIATRIST Signed: 12/21/2023 10:25 LANA COLINDRES [place] CNTRL [facility]
--- OUTSIDE RECORDS SUMMARY | 2024-08-16 09:28 | XMS_ITS | Encounter Summary ---
Author Name [facility] [place] [facility] [place] [facility] [place] [facility] [place] Address [address] [place] [address] Care Team Providers Care Prosthodontist/Owner Name Role Phone TRACY VILLANUEVA Primary Care [...] PHI MEDEX BRONZ E December 19, 2013 [id number] GUSTAVO ARAMBULA SR PATIENT [employer] MEDICARE SUPPLEMEN PHI MEDIC ARE SUPPL EMENT Jul 21, 2007 NONE [id number] Edgar ARAMBULA [place] SUPPLEMEN PHI MEDEX BRONZ E December 19, 2013 [id number] [phone] GUSTAVO ARAMBULA SR PATIENT [place] OF [place] MEDICARE SUPPLEMEN PHI MEDEX BRONZ E December 19, 2013 [id number] Edgar ARAMBULA PATIENT MEDICARE (WNR) MEDICARE () PART A Oct 19, 2004 PART A [id number] Edgar ARAMBULA PATIENT MEDICARE (WNR) MEDICARE (M) PART B Oct 19, 2004 PART B [id number] [phone] Edgar ARAMBULA [place] PATIENT MEDICARE (WNR) MEDICARE () PART A Oct 19, 2004 PART A [id number] [phone] Edgar ARAMBULAN PATIENT MEDICARE (WNR) MEDICARE () PART B Oct 19, 2004 PART B [id number] Edgar ARAMBULAN PATIENT MEDICARE (WNR) MEDICARE () PART A Oct 19, 2004 PART A [id number] Edgar ARAMBULAN PATIENT MEDICARE (WNR) MEDICARE () PART B Oct 19, 2004 PART B [id number] Edgar ARAMBULAN PATIENT MEDICARE (WNR) MEDICARE () PART A Oct 19, 2004 PART A [id number] [phone] Edgar ARAMBULA PATIENT MEDICARE (WNR) MEDICARE () PART B Oct 19, 2004 PART B [id number] [phone] Edgar ARAMBULAN PATIENT MEDICARE (WNR) MEDICARE () PART A Oct 19, 2004 PART A [id number] [phone] Edgar ARAMBULAN PATIENT MEDICARE (WNR) MEDICARE () PART B Oct 19, 2004 PART B [id number] [phone] Edgar ARAMBULA PATIENT Selected Encounter This section includes the information on record at [place] for the Encounter. Date/Time Encounter Type Encounter Description Reason Pro vider Source Feb 02, 2024 08:42 AM Outpatient Encounter PAIN CLINIC [facility] Encounter [...] 20 appointments. The data comes from all [place] treatment facilities. Appointment Date/Time Appointment Type Appointme nt Facility Name Feb 05, 2024 10:00 AM [facility]ULATORY [facility] [place] [facility] Feb 13, 2024 11:30 AM [facility]ICINE [facility] Feb 15, 2024 09:00 AM AMBULATORY - PSYCHIATRY [facility] [place] [facility] Feb 15, 2024 09:45 AM AMBULATORY - NONE [facility] [place] [facility] Mar 07, 2024 09:00 AM AMBULATORY - PS[facility]CHIATRY [facility] [place] [facility] Mar 08, 2024 08:30 AM AMBULATORY - NONE [facility] [place] [facility] Mar 11, 2024 09:00 AM [facility]ATORY - MEDICINE [facility] Apr 04, 2024 11:00 AM AMBULATORY - PS[facility]CHIATRY [facility] [place] [facility] Apr 08, 2024 09:30 AM AMBULATORY - MEDICINE [facility] [place] [facility] Apr 10, 2024 10:45 AM AMBULATORY - MEDICINE [facility] [place] [facility] Apr 26, 2024 11:00 AM AMBULATORY - MEDICINE [facility] [place] [facility] Apr 30, 2024 08:30 AM AMBULATORY - PS[facility]CHIATRY [facility] [place] [facility] May 01, 2024 11:00 AM AMBULATORY - NONE [facility] [place] [facility] May 14, 2024 11:30 AM [facility]ORY [facility]ICINE [facility] May 31, 2024 11:00 AM AMBULATORY - REHAB MEDICIN E [facility] [place] [facility] May 31, 2024 12:00 PM AMBULATORY - MEDICINE [facility] [place] [facility] Jun 10, 2024 10:00 AM [facility]ATORY [facility] MEDICINE [facility] Jun 11, 2024 09:30 AM AMBULATORY - PS[facility]CHIATRY [facility] [place] [facility] Jun 13, 2024 10:00 AM AMBULATORY - MEDICINE [facility] [place] [facility] Jun 19, 2024 11:00 AM AMBULATORY - NONE [facility] [place] [facility] Social History: Smoking Status (Most current) and Tobacco Use (All prior to encounter date) This section includes the most current, and the historical, smoking and tobacco- related health factors from the [place] facility where the Encounter took place. Current Smoking Status This section includes the most current smoking, or tobacco-related health factor, from the [place] facility where the Encounter took place. Date/Time Current Smoking Status Comment [facility] it December 25, 2023 09:05 AM [facility] Tobacco Use History This section includes a history of the smoking, or tobacco-related health factors, that were collected on or before the date of the Encounter. The data comes from the [place] facility where the Encounter took place. 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 [facility] [place] [facility] Dec 13, 2022 03:00 PM VA-TOBACCO USE MED NO [facility] [place] [facility] Dec 13, 2022 03:00 PM VA-TOBACCO USER EVERY DAY [facility] [place] [facility] Nov 17, 2021 10:00 AM VA-TOBACCO USE 30 YEARS OR MORE [facility] [place] [facility] Nov 17, 2021 10:00 AM VA-TOBACCO USE ADVICE [facility] [place] [facility] Nov 17, 2021 10:00 AM VA-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 USE 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 [facility] [place] [facility] Nov 17, 2021 10:00 AM VA-TOBACCO USE MED NO [facility] [place] [facility] Nov 17, 2021 10:00 AM VA-TOBACCO USE WI 30 MIN OF WAKEUP [facility] [place] [facility] Nov 17, 2021 10:00 AM VA-TOBACCO USER EVERY DAY [facility] Oct 14, 2013 12:55 PM V1-PT NOT INTERESTED IN QUIT TOBACCO USE [facility] May 07, 2013 05:04 PM CURRENT SMOKER trying to stop [facility] May 07, 2013 05:04 PM V1-PT DECLINES REF TO TOBACCO CESS PRGM [facility] May 07, 2013 05:04 PM V1-PT DECLINES TOBACCO CESSATION MEDS [facility] May 07, 2013 05:04 PM V1-PT READY TO QUIT TOBACCO USE [facility] Dec 03, 2012 08:23 AM V1-PT DECLINES REF TO TOBACCO CESS PRGM [facility] Dec 03, 2012 08:23 AM V1-PT DECLINES TOBACCO CESSATION MEDS [facility] Dec 03, 2012 08:23 AM V1-PT THINKING ABOUT QUIT TOBACCO USE [facility] Jun 05, 2012 08:45 AM CURRENT SMOKER 1/2ppd [facility] Jun 05, 2012 08:45 AM V1-PT DECLINES REF TO TOBACCO CESS PRGM [facility] Jun 05, 2012 08:45 AM V1-PT THINKING ABOUT QUIT TOBACCO USE [facility] Jun 05, 2012 08:45 AM V1-TOBACCO CESS MEDS NOT PRESCRIBED Vet wants to talk to his provider-He is nervous about taking meds to quit- but he is interested in quitting [facility] Nov 25, 2011 09:14 AM V1-PT DECLINES REF TO TOBACCO CESS PRGM [facility] Nov 25, 2011 09:14 AM V1-PT DECLINES TOBACCO CESSATION MEDS [facility] Nov 25, 2011 09:14 AM V1-PT THINKING ABOUT QUIT [facility] May 06, 2011 01:02 PM CURRENT SMOKER [facility] May 06, 2011 01:02 PM V1-PT DECLINES TOBACCO CESSATION MEDS [facility] [place] [facility] May 06, 2011 01:02 PM V1-PT NOT INTERESTED IN QUIT TOBACCO USE [facility] [place] [facility] Sep 24, 2010 08:51 AM V1-PT DECLINES TOBACCO CESSATION MEDS [facility] [place] [facility] Sep 24, 2010 08:51 AM V1-PT THINKING ABOUT QUIT TOBACCO USE [facility] [place] [facility] Mar 22, 2010 07:58 AM CURRENT SMOKER 1/2 ppd [facility] [place] [facility] Feb 25, 2009 12:05 PM QUIT TOBACCO USE IN PAST YEAR [facility] [place] [facility] Aug 26, 2008 09:28 AM CURRENT SMOKER 1/2 ppd [facility] [place] [facility] Aug 26, 2008 09:28 AM V1-PT DECLINES REF TO TOBACCO CESS PRGM [facility] [place] [facility] Aug 26, 2008 09:28 AM V1-PT READY TO QUIT TOBACCO USE [facility] [place] [facility] Dec 19, 2007 10:08 AM V1-PT DECLINES REF TO TOBACCO CESS PRGM [facility] [place] [facility] Dec 19, 2007 10:08 AM V1-PT DECLINES TOBACCO CESSATION MEDS [facility] [place] [facility] Dec 19, 2007 10:08 AM V1-PT THINKING ABOUT QUIT TOBACCO USE [facility] [place] [facility] Sep 11, 2007 11:10 AM CURRENT SMOKER [facility] [place] [facility] Sep 11, 2007 11:10 AM V1-PT DECLINES REF TO TOBACCO CESS PRGM [facility] [place] [facility] Sep 11, 2007 11:10 AM V1-PT DECLINES TOBACCO CESSATION MEDS [facility] [place] [facility] Sep 11, 2007 11:10 AM V1-PT THINKING ABOUT QUIT TOBACCO USE [facility] [place] [facility] Feb 13, 2007 01:46 PM V1-PT DECLINES REF TO TOBACCO CESS PRGM [facility] [place] [facility] Feb 13, 2007 01:46 PM V1-PT DECLINES TOBACCO CESSATION MEDS [facility] [place] [facility] Feb 13, 2007 01:46 PM V1-PT THINKING ABOUT QUIT TOBACCO USE [facility] Oct 02, 2006 08:28 AM QUIT TOBACCO USE IN PAST YEAR 3 months ago [facility] Aug 19, 2005 08:33 AM QUIT TOBACCO USE IN PAST YEAR nonsmoker [facility] Sep 21, 2004 09:54 AM CURRENT SMOKER [facility] Sep 07, 2004 08:07 AM CURRENT SMOKER [facility] Sep 15, 2003 11:21 AM CURRENT SMOKER smokes one pk day [facility] Jul 23, 2003 01:57 PM CURRENT SMOKER [facility] Advance Directives: All historical and current Section Date Range: From patient's date of to the date document was created. This section includes ALL of a patient's completed or amended [place] Advance and Rescinded Directives. The entries below indicate that a directive exists for the patient, but an actual copy is not included with this document. The data comes from all [place] facilities. Date Advance Directives Provider Source Apr 10, 2023 ADVANCE DIRECTIVE ESSIE STARK [facility] Apr 19, 2007 ADVANCE DIRECTIVE VICTORIA JOHNSON [facility] Radiology Reports: +/- 30 days of [...] the Encounter. The data comes from all [place] treatment facilities. Date/Time Radiology Report Provider Source Feb 15, 2024 09:[address] THORAX W/O CONT: GUSTAVO ARAMBULA 1940 M Exm Date: FEB 15, 2024@09:56 Req Phys: TRACY VILLANUEVA Loc: CWM/SO/PACT 7 (Req'g Loc) Img Loc: NHM/CT Service: Unknown [facility] , (Case [id number] COMPLETE) CT THORAX W/O CONT (CT Detailed) CPT:66392 Reason for Study: smoker x 65 years Clinical History: Report Status: Verified Date Reported: FEB 20, 2024 Date Verified: FEB 20, 2024 Polyethylene Combiner E-Sig: Report: CT THORAX W/O CONT HISTORY: smoker x 65 years COMPARISON: April 19, 2006 TECHNIQUE: Helical CT of the chest, with multiplanar reformats including maximum intensity projection (MIP) reconstructions, was performed at the local [place] facility. 1019 images were received by the [place] National Teleradiology Program (NTP) for interpretation. RADIATION [...] as above. READING PHYSICIAN: Ck Jean M.D. -[id number] 02/20/2024 12:57 PDT [facility] National Teleradiology Program [phone] (For Medical Practitioner Use Only) Attention Patients / Veterans: If you have questions or concerns about these test results, please contact your ordering provider or primary care team. Primary Diagnostic Code: SIGNIFICANT ABNORMALITY, ATTN NEEDED Primary Interpreting Staff: RADIOLOGY,OUTSIDE SERVICE, Staff Physician / RADIOLOGY,OUTSIDE SERVICE [facility] Encounter Notes: All associated encounter notes This section contains the clinical notes associated to the Encounter. Date/Time Encounter Note(s) Provider Source Feb 02, 2024 08:42 AM TELEPHONE ENCOUNTE R NOTE: LOCAL TITLE: TELEPHONE NOTE/SPECIALTY CLINIC STANDARD TITLE: TELEPHONE ENCOUNTER NOTE DATE OF NOTE: FEB 02, 2024@08:42 ENTRY DATE: FEB 02, 2024@08:42:57 AUTHOR: CINDY CANO EXP COSIGNER: URGENCY: STATUS: COMPLETED Call attempt was made to remind vet they have a VVC appt with the Pain clinic on 02/05/2024 @ 10am. No answer, lvm. /reginaldo/ CNIDY CANO [employer]VANCED [employer] DECORATOR Signed: 02/02/2024 08:44 CINDY CANO [facility]
--- OUTSIDE RECORDS SUMMARY | 2024-08-16 09:28 | XMS_ITS | Encounter Summary ---
Author Name [facility] Organization [facility] Address [address] [place] [address] Care Team Providers Care Professor Of Geology Name Role Phone TRACY VILLANUEVA Primary Care [...] PHI MEDEX BRONZ E December 19, 2013 [id number] GUSTAVO ARAMBULA SR PATIENT [employer] MEDICARE SUPPLEMEN PHI MEDIC ARE SUPPL EMENT Jul 21, 2007 NONE [id number] Edgar ARAMBULA PATIENT BCBS CT MEDICARE SUPPLEMEN PHI MEDEX BRONZ E December 19, 2013 [id number] GUSTAVO ARAMBULA SR PATIENT [place] MEDICARE SUPPLEMEN PHI MEDEX BRONZ E December 19, 2013 [id number] [phone] Edgar ARAMBULA PATIENT MEDICARE (WNR) MEDICARE () PART A Oct 19, 2004 PART A [id number] Edgar ARAMBULAN PATIENT MEDICARE (WNR) MEDICARE () PART B Oct 19, 2004 PART B [id number] [id number] Edgar ARAMBULA [place] PATIENT MEDICARE (WNR) MEDICARE () PART A Oct 19, 2004 PART A [id number] [phone] [id number] Edgar ARAMBULAN PATIENT MEDICARE (WNR) MEDICARE () PART B Oct 19, 2004 PART B [id number] Edgar ARAMBULAN PATIENT MEDICARE (WNR) MEDICARE () PART A Oct 19, 2004 PART A [id number] Edgar ARAMBULA [place] PATIENT MEDICARE (WNR) MEDICARE () PART B Oct 19, 2004 PART B [id number] [phone] Edgar ARAMBULAN PATIENT MEDICARE (WNR) MEDICARE () PART A Oct 19, 2004 PART A [id number] [phone] Edgar ARAMBULA PATIENT MEDICARE (WNR) MEDICARE () PART B Oct 19, 2004 PART B [id number] Edgar ARAMBULAN PATIENT MEDICARE (WNR) MEDICARE () PART A Oct 19, 2004 PART A [id number] [phone] Edgar ARAMBULAN PATIENT MEDICARE (WNR) MEDICARE () PART B Oct 19, 2004 PART B [id number] Edgar ARAMBULAN PATIENT Selected Encounter This section includes the information on record at MD for the Encounter. Date/Time Encounter Type Encounter Description Reason Pro vider Source December 21, 2023 10:21 AM Outpatient Encounter PRIMARY CARE/MEDICINE IHE Encounter [...] 20 appointments. The data comes from all MD treatment facilities. Appointment Date/Time Appointment Type Appointme nt Facility Name December 25, 2023 09:00 AM [facility]ORY - [facility]ICINE [facility] Feb 05, 2024 10:00 AM [facility] [place] [facility] Feb 13, 2024 11:30 AM [facility] - [facility]ICINE [facility] Feb 15, 2024 09:00 AM AMBULATORY - PSYCHIATRY [facility] [place] [facility] Feb 15, 2024 09:45 AM AMBULATORY - NONE [facility] [place] [facility] Mar 07, 2024 09:00 AM AMBULATORY - PS[facility]CHIATRY [facility] [place] [facility] Mar 08, 2024 08:30 AM AMBULATORY - NONE [facility] [place] [facility] Mar 11, 2024 09:00 AM [facility] - [facility]ICINE [facility] Apr 04, 2024 11:00 AM AMBULATORY - PS[facility]CHIATRY [facility] [place] [facility] Apr 08, 2024 09:30 AM AMBULATORY - MEDICINE [facility] [place] [facility] Apr 10, 2024 10:45 AM AMBULATORY - MEDICINE [facility] [place] [facility] Apr 26, 2024 11:00 AM AMBULATORY - MEDICINE [facility] [place] [facility] Apr 30, 2024 08:30 AM AMBULATORY - PSYCHIATRY [facility] [place] [facility] May 01, 2024 11:00 AM AMBULATORY - NONE [facility] [place] [facility] May 14, 2024 11:30 [facility] May 31, 2024 11:00 AM AMBULATORY - REHAB MEDICIN [facility] [place] [facility] May 31, 2024 12:00 PM AMBULATORY - MEDICINE [facility] [place] [facility] Jun 10, 2024 10:00 AM [facility]ORY - [facility]ICINE [facility] Jun 11, 2024 09:30 AM AMBULATORY - PS[facility]CHIATRY [facility] [place] [facility] Jun 13, 2024 10:00 AM AM[facility]ULATORY - [facility]ICINE [facility] [place] [facility] Lab Results: +/- 30 days of the encounter This section includes the Chemistry and Hematology Lab Results on record with MD for the patient. Radiology Reports and Pathology Reports are provided separately, in subsequent sections. Lab Results This section contains the Chemistry/Hematology Results that were resulted 30 days before or 30 daysafter the date of the Encounter. Date/Time Source Result Type Result - Unit Interpretation Reference Range Comment December 25, 2023 09:26 AM [place] FERRITIN Specimen Type: SERUM No comment entered. Ordering Provider: TRACY VILLANUEVA Report Released Date/Time: Dec 19, 2023 08:37 AM Reporting Lab: [address] [address] Performing Lab: [address] [address] FERRITIN 25 ng/mL 20-300 December 25, 2023 09:26 AM [place] HEMOGLOBIN A1C PANEL Specimen Type: BLOOD Comment: [...] Dec 19, 2023 08:37 AM Reporting Lab: [address] [address] Performing Lab: [address] [address] HEMOGLOBIN A1C 7.7 H 4.0-5.6 December 25, 2023 09:26 AM [place] LIVER FUNCTION Specimen Type: SERUM No comment entered. Ordering Provider: TRACY VILLANUEVA Report Released Date/Time: Dec 19, 2023 08:37 AM Reporting Lab: [address] [address] Performing Lab: [address] [address] PROTEIN,TOTAL 7.0 g/dL 6.0-8.3 ALBUMIN 3.9 g/dL 3.5-5.0 ALKALINE PHOSPHATASE 90 U/L 40-150 AST 17 U/L 5-34 ALT 20 U/L BILIRUBIN, TOTAL 0.6 mg/dL 0.2-1.2 December 25, 2023 09:26 AM [place] BASIC METABOLIC PANEL (non-fasting) Spe cimen Type: SERUM No comment entered. Ordering Provider: TRACY VILLANUEVA Report Released Date/Time: Dec 19, 2023 08:37 AM Reporting Lab: [address] [address] Performing Lab: [address] [address] UREA NITROGEN 12 mg/dL 7-25 GLUCOSE 240 mg/dL H 65-100 SODIUM 135 mmol/L 135-145 POTASSIUM 4.2 mmol/L 3.5-5.0 CHLORIDE 102 mmol/L 100-110 CO2 24 meq/L 20-30 CREATININE, Serum 0.78 mg/dL 0.50-1.40 eGFR(CKD-EPI 2020) 88 mL/min >60 December 25, 2023 09:26 AM [place] CBC Specimen Type: BLOOD No comment entered. Ordering Provider: TRACY VILLANUEVA Report Released Date/Time: Dec 19, 2023 08:37 AM Reporting Lab: [address] [address] Performing Lab: [address] [address] WBC 9.74 10*3/uL 4.50-11.00 RBC 4.50 10*6/uL 4.23-5.66 HGB 12.5 g/dL L 12.8-17 HCT 36.2 L 39.2-50.4 MCV 80.4 fL L 82-99 MCHC 34.5 g/dL 30.8-35.1 PLT 275 10*3/uL 140-360 RDW-CV 13.7 12.0-16.0 MCH 27.8 pg 26.2-32.6 December 25, 2023 09:26 AM [place] MICROALBUMIN CREATININE RATIO PANEL Spe cimen Type: URINE No comment entered. Ordering Provider: KAY,TRACY C Report Released Date/Time: Dec 19, 2023 08:37 AM Reporting Lab: [facility] [place] [facility] [address] [facility] [address] Performing Lab: [facility] [place] [facility] [address] [address] [address] MICROALBUMIN/C REATININE RATIO 23.9 mg/g 0-29.9 MICROALBUMIN,Q UANTITATIVE 0.7 mg/dL RR UNAVAIL CREATININE URINE 29.30 mg/dL Social History: Smoking Status (Most current) and Tobacco Use (All prior to encounter date) This section includes the most current, and the historical, smoking and tobacco- related health factors from the MD facility where the Encounter took place. Current Smoking Status This section includes the most current smoking, or tobacco-related health factor, from the MD facility where the Encounter took place. Date/Time Current Smoking Status Comment Facil it Dec 13, 2022 03:00 PM VA-TOBACCO USER EVERY DAY [facility] Tobacco Use History This section includes a history of the smoking, or tobacco-related health factors, that were collected on or before the date of the Encounter. The data comes from the MD facility where the Encounter took place. Date/Time Smoking Status/Tobac co Use Comment Facility Dec 13, 2022 03:00 PM VA-TOBACCO USE 30 YEARS OR MORE [facility] [place] [facility] Dec 13, 2022 03:00 PM VA-TOBACCO USE ADVICE [facility] [place] [facility] Dec 13, 2022 03:00 PM VA-TOBACCO USE SUPERVISOR LIQUEFACTION NO [facility] [place] [facility] Dec 13, 2022 03:00 PM VA-TOBACCO USE MED NO [facility] [place] [facility] Dec 13, 2022 03:00 PM VA-TOBACCO USER EVERY DAY [facility] [place] [facility] Nov 17, 2021 10:00 AM VA-TOBACCO USE 30 YEARS OR MORE [facility] [place] [facility] Nov 17, 2021 10:00 AM VA-TOBACCO USE ADVICE [facility] [place] [facility] Nov 17, 2021 10:00 AM VA-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 USE SUPERVISOR LIQUEFACTION NO [facility] [place] [facility] Nov 17, 2021 10:00 AM VA-TOBACCO USE MED NO [facility] [place] Nov 17, 2021 10:00 AM VA-TOBACCO USE [place] 30 MIN OF WAKEUP [facility] Nov 17, 2021 10:00 AM VA-TOBACCO USER EVERY DAY [facility] Oct 14, 2013 12:55 PM V1-PT NOT INTERESTED IN QUIT TOBACCO USE [facility] May 07, 2013 05:04 PM CURRENT SMOKER trying to stop [facility] May 07, 2013 05:04 PM V1-PT DECLINES REF TO TOBACCO CESS PRGM [facility] May 07, 2013 05:04 PM V1-PT DECLINES TOBACCO CESSATION MEDS [facility] May 07, 2013 05:04 PM V1-PT READY TO QUIT TOBACCO USE [facility] Dec 03, 2012 08:23 AM V1-PT DECLINES REF TO TOBACCO CESS PRGM [facility] Dec 03, 2012 08:23 AM V1-PT DECLINES TOBACCO CESSATION MEDS [facility] Dec 03, 2012 08:23 AM V1-PT THINKING ABOUT QUIT TOBACCO USE [facility] Jun 05, 2012 08:45 AM CURRENT SMOKER 1/2ppd [facility] Jun 05, 2012 08:45 AM V1-PT DECLINES REF TO TOBACCO CESS PRGM [facility] Jun 05, 2012 08:45 AM V1-PT THINKING ABOUT QUIT TOBACCO USE [facility] Jun 05, 2012 08:45 AM V1-TOBACCO CESS MEDS NOT PRESCRIBED Vet wants to talk to his provider-He is nervous about taking meds to quit- but he is interested in quitting [facility] Nov 25, 2011 09:14 AM V1-PT DECLINES REF TO TOBACCO CESS PRGM [facility] Nov 25, 2011 09:14 AM V1-PT DECLINES TOBACCO CESSATION MEDS [facility] Nov 25, 2011 09:14 AM V1-PT THINKING ABOUT QUIT TOBACCO USE [facility] [place] [facility] May 06, 2011 01:02 PM CURRENT SMOKER [facility] [place] [facility] May 06, 2011 01:02 PM V1-PT DECLINES TOBACCO CESSATION MEDS [facility] [place] [facility] May 06, 2011 01:02 PM V1-PT NOT INTERESTED IN QUIT TOBACCO USE [facility] [place] [facility] Sep 24, 2010 08:51 AM V1-PT DECLINES TOBACCO CESSATION MEDS [facility] [place] [facility] Sep 24, 2010 08:51 AM V1-PT THINKING ABOUT QUIT TOBACCO USE [facility] [place] [facility] Mar 22, 2010 07:58 AM CURRENT SMOKER 1/2 ppd [facility] [place] [facility] Feb 25, 2009 12:05 PM QUIT TOBACCO USE IN PAST YEAR [facility] [place] [facility] Aug 26, 2008 09:28 AM CURRENT SMOKER 1/2 ppd [facility] [place] [facility] Aug 26, 2008 09:28 AM V1-PT DECLINES REF TO TOBACCO CESS PRGM [facility] [place] [facility] Aug 26, 2008 09:28 AM V1-PT READY TO QUIT TOBACCO USE [facility] [place] [facility] Dec 19, 2007 10:08 AM V1-PT DECLINES REF TO TOBACCO CESS [facility] Dec 19, 2007 10:08 AM V1-PT DECLINES TOBACCO CESSATION MEDS [facility] [place] [facility] Dec 19, 2007 10:08 AM V1-PT THINKING ABOUT QUIT TOBACCO USE [facility] [place] [facility] Sep 11, 2007 11:10 AM CURRENT SMOKER [facility] [place] [facility] Sep 11, 2007 11:10 AM V1-PT DECLINES REF TO TOBACCO CESS PRGM [facility] [place] [facility] Sep 11, 2007 11:10 AM V1-PT DECLINES TOBACCO CESSATION MEDS [facility] Sep 11, 2007 11:10 AM V1-PT THINKING ABOUT QUIT TOBACCO USE [facility] [place] [facility] Feb 13, 2007 01:46 PM V1-PT DECLINES REF TO TOBACCO CESS PRGM [facility] Feb 13, 2007 01:46 PM V1-PT DECLINES TOBACCO CESSATION MEDS [facility] Feb 13, 2007 01:46 PM V1-PT THINKING ABOUT QUIT TOBACCO USE [facility] Oct 02, 2006 08:28 AM QUIT TOBACCO USE IN PAST YEAR 3 months ago [facility] Aug 19, 2005 08:33 AM QUIT TOBACCO USE IN PAST YEAR nonsmoker [facility] Sep 21, 2004 09:54 AM CURRENT SMOKER [facility] Sep 07, 2004 08:07 AM CURRENT SMOKER [facility] Sep 15, 2003 11:21 AM CURRENT SMOKER smokes one pk day [facility] Jul 23, 2003 01:57 PM CURRENT SMOKER [facility] Advance Directives: All historical and current Section Date Range: From patient's date of to the date document was created. This section includes ALL of a patient's completed or amended MD Advance and Rescinded Directives. The entries below indicate that a directive exists for the patient, but an actual copy is not included with this document. The data comes from all MD facilities. Date Advance Directives Provider Source Apr 10, 2023 ADVANCE DIRECTIVE [facility] Apr 19, 2007 ADVANCE DIRECTIVE VICTORIA JOHNSON [facility] Encounter Notes: All associated encounter notes This section contains the clinical notes associated to the Encounter. Date/Time Encounter Note(s) Provider Source December 21, 2023 10:22 AM PRIMARY CARE TELEP MELVI ENCOUNTER NOTE: LOCAL TITLE: TELEPHONE NOTE/PRIMARY CARE STANDARD TITLE: PRIMARY CARE TELEPHONE ENCOUNTER NOTE DATE OF NOTE: DECEMBER 21, 2023@10:22 ENTRY DATE: DECEMBER 21, 2023@10:22:09 AUTHOR: RABIA MANN COSIGNER: URGENCY: STATUS: COMPLETED TELEPHONE NOTE/PRIMARY CARE Has ADDENDA Legal Counsel called to [ ] Schedule primary care appt [ ] Reschedule primary care appt. [X} Remind of upcoming primary care appt.12/25/2023@9:00 SPOKE WITH: [ ] Fasting blood work needed, and vet reminded. [ ] Non fasting blood work needed, and vet reminded. [X} No labs needed. [ ] UNABLE TO REACH : [X} Left voicemail. [ ] Unable to leave voicemail. [ ] No phone number available/no working phone number [ ] Mailed Letter /reginaldo/ RABIA MANN ADVANC[employer] ADULT LITERACY INSTRUCTOR Signed: 12/21/2023 10:24 12/21/2023 ADDENDUM STATUS: COMPLETED With non fasting labs /reginaldo/ RABIA MANN ADVANCED ADULT LITERACY INSTRUCTOR Signed: 12/21/2023 10:25 RABIA MANN [place]
--- OUTSIDE RECORDS SUMMARY | 2024-08-16 09:29 | XMS_ITS | Encounter Summary ---
Author Name [facility] [place] [facility] [place] [facility] [place] [facility] [place] Address [address] [place] [address] Care Team Providers Care Supervisor [employer] Name Role Phone TRACY VILLANUEVA Primary Care [...] PHI MEDEX BRONZ E December 19, 2013 [id number] [phone] GUSTAVO ARAMBULA SR PATIENT [employer] MEDICARE SUPPLEMEN PHI MEDIC ARE SUPPL EMENT Jul 21, 2007 NONE [id number] Edgar ARAMBULA PATIENT [place] SUPPLEMEN PHI MEDEX BRONZ E December 19, 2013 [id number] [phone] GUSTAVO ARAMBULA SR PATIENT [place] OF [place] MEDICARE SUPPLEMEN PHI MEDEX BRONZ E December 19, 2013 [id number] Edgar ARAMBULA PATIENT MEDICARE (WNR) MEDICARE () PART A Oct 19, 2004 PART A [id number] Edgar ARAMBULA PATIENT MEDICARE (WNR) MEDICARE (M) PART B Oct 19, 2004 PART B [id number] Edgar ARAMBULA OHN PATIENT MEDICARE (WNR) MEDICARE (M) PART A Oct 19, 2004 PART A [id number] Edgar ARAMBULAN PATIENT MEDICARE (WNR) MEDICARE () PART B Oct 19, 2004 PART B [id number] Edgar ARAMBULAN PATIENT MEDICARE (WNR) MEDICARE () PART A Oct 19, 2004 PART A [id number] [id number] Edgar ARAMBULAN PATIENT MEDICARE (WNR) MEDICARE () PART B Oct 19, 2004 PART B [id number] Edgar ARAMBULAN PATIENT MEDICARE (WNR) MEDICARE () PART A Oct 19, 2004 PART A [id number] [phone] Edgar ARAMBULAN PATIENT MEDICARE (WNR) MEDICARE () PART B Oct 19, 2004 PART B [id number] Edgar ARAMBULAN PATIENT MEDICARE (WNR) MEDICARE () PART A Oct 19, 2004 PART A [id number] Edgar ARAMBULAN PATIENT MEDICARE (WNR) MEDICARE () PART B Oct 19, 2004 PART B [id number] [phone] Edgar ARAMBULA PATIENT Selected Encounter This section includes the information on [place] at [place] for the Encounter. Date/Time Encounter Type Encounter Description Reason Pro vider Source Nov 03, 2023 10:59 AM Outpatient Encounter [facility]IN[facility] Encounter [...] Date/Time Appointment Type Appointme nt Facility Name Nov 06, 2023 09:30 AM [facility]UL[facility] [place] [facility] December 21, 2023 09:00 AM AMBULATORY [facility]CHIATRY [facility] [place] [facility] December 25, 2023 09:00 AM AMBULATORY - MED[facility] Feb 05, 2024 10:00 AM AM[facility]ULATORY [facility] MEDICINE [facility] [place] [facility] Feb 13, 2024 11:30 AM AMBULATORY [facility] Feb 15, 2024 09:00 AM AMBULATORY - PS[facility]CHIATRY [facility] [place] [facility] Feb 15, 2024 09:45 AM AMBULATORY - NONE [facility] [place] [facility] Mar 07, 2024 09:00 AM AMBULATORY - PS[facility]CHIATRY [facility] [place] [facility] Mar 08, 2024 08:30 AM AMBULATORY - NONE [facility] [place] [facility] Mar 11, 2024 09:00 AM AMBULATORY [facility] MED[facility] Apr 04, 2024 11:00 AM AMBULATORY [facility] PS[facility]IATRY [facility] [place] [facility] Apr 08, 2024 09:30 AM [facility] [place] [facility] Apr 10, 2024 10:45 AM [facility]UL[facility]ICINE [facility] [place] [facility] Apr 26, 2024 11:00 AM AM[facility]ULATORY [facility]ICINE [facility] [place] [facility] Apr 30, 2024 08:30 AM AMBULATORY - PS[facility]CHIATRY [facility] [place] [facility] May 01, 2024 11:00 AM AMBULATORY - NONE [facility] [place] [facility] Active, Pending, and Scheduled Orders This section includes a listing of several types of active, pending, and scheduled orders, including clinic medications orders, diagnostic test orders, procedure orders and consult orders; where the start date of the order is 45 days before the date of the Encounter or 45 days after the date of theEncounter. The data comes from all [place] treatment facilities. Test Date/Time Test Type Test Details Facility Name Sep 26, 2023 09:55 AM Consult Order [facility] Cons Safety Net [employer] [facility] [facility] Social History: Smoking Status (Most current) and [...] it Dec 13, 2022 03:00 PM VA-TOBACCO DOESNT USE WI 30 MIN WAKEUP [place] [facility] [place] [facility] Tobacco Use History This section includes a history of the smoking, or tobacco-related health factors, that were collected on or before the date of the Encounter. The data comes from the [place] facility where the Encounter took place. 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 NO [facility] [place] [facility] Dec 13, 2022 03:00 PM VA-TOBACCO USE MED NO [facility] [place] [facility] Dec 13, 2022 03:00 PM VA-TOBACCO USER EVERY DAY [facility] [place] [facility] Nov 17, 2021 10:00 AM VA-TOBACCO USE 30 YEARS OR MORE [facility] [place] [facility] Nov 17, 2021 10:00 AM VA-TOBACCO USE ADVICE [facility] [place] [facility] Nov 17, 2021 10:00 AM VA-TOBACCO USE [place] [facility] NO [facility] [place] [facility] Nov 17, 2021 10:00 AM VA-TOBACCO USE MED NO [facility] [place] [facility] Nov 17, 2021 10:00 AM VA-TOBACCO USE WI 30 MIN OF WAKEUP [facility] [place] [facility] Nov 17, 2021 10:00 AM VA-TOBACCO USER EVERY DAY [facility] Oct 14, 2013 12:55 PM V1-PT NOT INTERESTED IN QUIT TOBACCO USE [facility] May 07, 2013 05:04 PM CURRENT SMOKER trying to stop [facility] May 07, 2013 05:04 PM V1-PT DECLINES REF TO TOBACCO CESS PRGM [facility] May 07, 2013 05:04 PM V1-PT DECLINES TOBACCO CESSATION MEDS [facility] May 07, 2013 05:04 PM V1-PT READY TO QUIT TOBACCO USE [facility] Dec 03, 2012 08:23 AM V1-PT DECLINES REF TO TOBACCO CESS PRGM [facility] Dec 03, 2012 08:23 AM V1-PT DECLINES TOBACCO CESSATION MEDS [facility] Dec 03, 2012 08:23 AM V1-PT THINKING ABOUT QUIT TOBACCO USE [facility] Jun 05, 2012 08:45 AM CURRENT SMOKER 1/2ppd [facility] Jun 05, 2012 08:45 AM V1-PT DECLINES REF TO TOBACCO CESS PRGM [facility] Jun 05, 2012 08:45 AM V1-PT THINKING ABOUT QUIT TOBACCO USE [facility] Jun 05, 2012 08:45 AM V1-TOBACCO CESS MEDS NOT PRESCRIBED Vet wants to talk to his provider-He is nervous about taking meds to quit- but he is interested in quitting [facility] Nov 25, 2011 09:14 AM V1-PT DECLINES REF TO TOBACCO CESS PRGM [facility] Nov 25, 2011 09:14 AM V1-PT DECLINES TOBACCO CESSATION MEDS [facility] Nov 25, 2011 09:14 AM V1-PT THINKING ABOUT QUIT TOBACCO USE [facility] May 06, 2011 01:02 PM CURRENT SMOKER [facility] May 06, 2011 01:02 PM V1-PT DECLINES TOBACCO CESSATION MEDS [facility] [place] [facility] May 06, 2011 01:02 PM V1-PT NOT INTERESTED IN QUIT TOBACCO USE [facility] [place] [facility] Sep 24, 2010 08:51 AM V1-PT DECLINES TOBACCO CESSATION MEDS [facility] [place] [facility] Sep 24, 2010 08:51 AM V1-PT THINKING ABOUT QUIT TOBACCO USE [facility] [place] [facility] Mar 22, 2010 07:58 AM CURRENT SMOKER 1/2 ppd [facility] [place] [facility] Feb 25, 2009 12:05 PM QUIT TOBACCO USE IN PAST YEAR [facility] [place] [facility] Aug 26, 2008 09:28 AM CURRENT SMOKER 1/2 ppd [facility] [place] [facility] Aug 26, 2008 09:28 AM V1-PT DECLINES REF TO TOBACCO CESS PRGM [facility] [place] [facility] Aug 26, 2008 09:28 AM V1-PT READY TO QUIT TOBACCO USE [facility] [place] [facility] Dec 19, 2007 10:08 AM V1-PT DECLINES REF TO TOBACCO CESS PRGM [facility] [place] [facility] Dec 19, 2007 10:08 AM V1-PT DECLINES TOBACCO CESSATION MEDS [facility] [place] [facility] Dec 19, 2007 10:08 AM V1-PT THINKING ABOUT QUIT TOBACCO USE [facility] [place] [facility] Sep 11, 2007 11:10 AM CURRENT SMOKER [place] [facility] [place] [facility] Sep 11, 2007 11:10 AM V1-PT DECLINES REF TO TOBACCO CESS PRGM [facility] [place] [facility] Sep 11, 2007 11:10 AM V1-PT DECLINES TOBACCO CESSATION MEDS [facility] [place] [facility] Sep 11, 2007 11:10 AM V1-PT THINKING ABOUT QUIT TOBACCO USE [facility] [place] [facility] Feb 13, 2007 01:46 PM V1-PT DECLINES REF TO TOBACCO CESS PRGM [facility] [place] [facility] Feb 13, 2007 01:46 PM V1-PT DECLINES TOBACCO CESSATION MEDS [facility] [place] [facility] Feb 13, 2007 01:46 PM V1-PT THINKING ABOUT [facility]IT [facility] Oct 02, 2006 08:28 AM QUIT TOBACCO USE IN PAST YEAR 3 months ago [facility] Aug 19, 2005 08:33 AM QUIT TOBACCO USE IN PAST YEAR nonsmoker [facility] Sep 21, 2004 09:54 AM CURRENT SMOKER [facility] Sep 07, 2004 08:07 AM CURRENT SMOKER [facility] Sep 15, 2003 11:21 AM CURRENT SMOKER smokes one pk day [facility] Jul 23, 2003 01:57 PM CURRENT SMOKER [facility] Advance Directives: All historical and current Section Date Range: From patient's date of to the date document was created. This section includes ALL of a patient's completed or amended [place] Advance and Rescinded Directives. The entries below indicate that a directive exists for the patient, but an actual copy is not included with this document. The data comes from all [place] facilities. Date Advance Directives Provider Source Apr 10, 2023 ADVANCE DIRECTIVE ESSIE STARK [facility] Apr 19, 2007 [facility] Encounter Notes: All associated encounter notes This section contains the clinical notes associated to the Encounter. Date/Time Encounter Note(s) Provider Source Nov 03, 2023 10:59 AM TELEPHONE ENCOUNTE R NOTE: LOCAL TITLE: TELEPHONE NOTE/SPECIALTY CLINIC STANDARD TITLE: TELEPHONE ENCOUNTER NOTE DATE OF NOTE: NOV 03, 2023@10:59 ENTRY DATE: NOV 03, 2023@10:59:33 AUTHOR: CINDY CANO EXP COSIGNER: URGENCY: STATUS: COMPLETED Called and spoke with pt to remind them that they have a VVC appt with the Pain clinic on 11/06/2023 @ 930am. 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
--- OUTSIDE RECORDS SUMMARY | 2024-08-16 09:29 | XMS_ITS | Encounter Summary ---
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 Operator Name Role Phone TRACY VILLANUEVA Primary Care [...] PHI MEDEX BRONZ E December 19, 2013 [id number] GUSTAVO ARAMBULA SR PATIENT [employer] MEDICARE SUPPLEMEN PHI MEDIC ARE SUPPL EMENT Jul 21, 2007 NONE [id number] [phone] Edgar ARAMBULA PATIENT [place] SUPPLEMEN PHI MEDEX BRONZ E December 19, 2013 [id number] GUSTAVO ARAMBULA SR PATIENT [place] MEDICARE SUPPLEMEN PHI MEDEX BRONZ E December 19, 2013 [id number] Edgar ARAMBULA PATIENT MEDICARE (WNR) MEDICARE (M) PART A Oct 19, 2004 PART A [id number] Edgar ARAMBULAN PATIENT MEDICARE (WNR) MEDICARE (M) PART B Oct 19, 2004 PART B [id number] Edgar ARAMBULAN PATIENT MEDICARE (WNR) MEDICARE (M) PART A Oct 19, 2004 PART A [id number] Edgar ARAMBULAN PATIENT MEDICARE (WNR) MEDICARE (M) PART B Oct 19, 2004 PART B [id number] Edgar ARAMBULAN PATIENT MEDICARE (WNR) MEDICARE (M) PART A Oct 19, 2004 PART A [id number] Edgar ARAMBULAN PATIENT MEDICARE (WNR) MEDICARE () PART B Oct 19, 2004 PART B [id number] Edgar ARAMBULAN PATIENT MEDICARE (WNR) MEDICARE () PART A Oct 19, 2004 PART A [id number] Edgar ARAMBULA PATIENT MEDICARE (WNR) MEDICARE () PART A Oct 19, 2004 PART A [id number] Edgar ARAMBULAN PATIENT MEDICARE (WNR) MEDICARE () PART B Oct 19, 2004 PART B [id number] Edgar ARAMBULAN PATIENT MEDICARE (WNR) MEDICARE () PART B Oct 19, 2004 PART B [id number] [phone] Edgar ARAMBULA PATIENT Selected Encounter This section includes the information on record at DC for the Encounter. Date/Time Encounter Type Encounter Description Reason Pro vider Source Nov 10, 2023 09:17 AM Outpatient Encounter ADMIN PAT ACTIVTIES (MASNONCT) IHE Encounter Template Text not used by DC Plan of Treatment: Future Appointments (+ 6 months) and Future Tests (+/- 45 days) The Plan of Treatment section includes future care activities for the patient [facility] This section includes future appointments and future orders which are active, pending or scheduled. Future Appointments This section includes appointments that were scheduled to occur 6 months from the date of the Encounter, up to a maximum of 20 appointments. The data comes from all DC treatment [facility]. Appointment Date/Time Appointment Type Appointme nt Facility Name December 21, 2023 09:00 AM AMBULATORY - PSYCHIATRY [facility] December 25, 2023 09:00 AM AMBULATORY - MEDICINE [facility] Feb 05, 2024 10:00 AM AMBULATORY - MEDICINE [place] [facility] [place] [facility] Feb 13, 2024 11:30 AM AMBULATORY - MEDICINE [facility] Feb 15, 2024 09:00 AM AMBULATORY - PSYCHIATRY [facility] [place] [facility] Feb 15, 2024 09:45 AM AMBULATORY - NONE [facility] [place] [facility] Mar 07, 2024 09:00 AM AMBULATORY - PS[facility]CHIATRY [facility] [place] [facility] Mar 08, 2024 08:30 AM AMBULATORY - NONE [facility] [place] [facility] Mar 11, 2024 09:00 [facility] Apr 04, 2024 11:00 AM AMBULATORY - PS[facility]CHIATRY [facility] [place] [facility] Apr 08, 2024 09:30 AM AMBULATORY - MEDICINE [place] [facility] [place] [facility] Apr 10, 2024 10:45 AM AMBULATORY - MEDICINE [place] [facility] [place] [facility] Apr 26, 2024 11:00 AM AMBULATORY - MEDICINE [place] [facility] [place] [facility] Apr 30, 2024 08:30 AM AMBULATORY - PS[facility]CHIATRY [facility] [place] [facility] May 01, 2024 11:00 AM AMBULATORY - NONE [facility] [place] [facility] Active, Pending, and Scheduled Orders This section includes a listing of several types of active, pending, and scheduled orders, including clinic medications orders, diagnostic test orders, procedure orders and consult orders; where the start date of the order is 45 days before the date of the Encounter or 45 days after the date of theEncounter. The data comes from all DC treatment [facility]. Test Date/Time Test Type Test Details Facility Name Sep 26, 2023 09:55 AM Consult Order [facility] Program Services Assistant's [facility] Social History: Smoking Status (Most current) and Tobacco Use (All prior to encounter date) This section includes the most current, and the historical, smoking and tobacco- related health factors from the DC facility where the Encounter took place. Current Smoking Status This section includes the most current smoking, or tobacco-related health factor, from the DC facility where the Encounter took place. Date/Time Current Smoking Status Comment [facility] it Dec 13, 2022 03:00 PM VA-TOBACCO USER EVERY DAY [facility] [place] [facility] Tobacco Use History This section includes a history of the smoking, or tobacco-related health factors, that were collected on or before the date of the Encounter. The data comes from the DC facility where the Encounter took place. Date/Time Smoking Status/Tobac co Use Comment Facility Dec 13, 2022 03:00 PM VA-TOBACCO USE 30 YEARS OR MORE [facility] [place] [facility] Dec 13, 2022 03:00 PM VA-TOBACCO USE ADVICE [facility] [place] [facility] Dec 13, 2022 03:00 PM VA-TOBACCO USE WAGE ADJUSTER NO [facility] [place] [facility] Nov 17, 2021 10:00 AM VA-TOBACCO USE WAGE ADJUSTER NO [facility] [place] [facility] Nov 17, 2021 10:00 AM VA-TOBACCO USE MED NO [facility] [place] [facility] Nov 17, 2021 10:00 AM VA-TOBACCO USE WI 30 MIN OF WAKEUP [facility] [place] [facility] Nov 17, 2021 10:00 AM VA-TOBACCO USER EVERY DAY [facility] [place] [facility] Oct 14, 2013 12:55 PM V1-PT NOT INTERESTED IN QUIT [facility]BACCO [facility] May 07, 2013 05:04 PM CURRENT SMOKER trying to stop [facility] May 07, 2013 05:04 PM V1-PT DECLINES REF TO TOBACCO CESS [facility] May 07, 2013 05:04 PM V1-PT DECLINES TOBACCO CESSATION MEDS [facility] May 07, 2013 05:04 PM V1-PT READY TO QUIT TOBACCO USE [facility] Dec 03, 2012 08:23 AM V1-PT DECLINES REF TO TOBACCO CESS [facility] Dec 03, 2012 08:23 AM V1-PT DECLINES TOBACCO CESSATION MEDS [facility] Dec 03, 2012 08:23 AM V1-PT THINKING ABOUT QUIT TOBACCO USE [facility] Jun 05, 2012 08:45 AM CURRENT SMOKER 1/2ppd [facility] Jun 05, 2012 08:45 AM V1-PT DECLINES REF TO TOBACCO CESS PRGM [facility] [place] [facility] Jun 05, 2012 08:45 AM V1-PT THINKING ABOUT QUIT TOBACCO USE [facility] Jun 05, 2012 08:45 AM V1-TOBACCO CESS MEDS NOT PRESCRIBED Vet wants to talk to his provider-He is nervous about taking meds to quit- but he is interested in quitting [facility] Nov 25, 2011 09:14 AM V1-PT DECLINES REF TO TOBACCO CESS [facility] Nov 25, 2011 09:14 AM V1-PT DECLINES TOBACCO CESSATION MEDS [facility] Nov 25, 2011 09:14 AM V1-PT THINKING ABOUT QUIT TOBACCO USE [facility] May 06, 2011 01:02 PM [facility]ER [facility] May 06, 2011 01:02 PM V1-PT DECLINES TOBACCO CESSATION MEDS [facility] May 06, 2011 01:02 PM V1-PT NOT INTERESTED IN QUIT TOBACCO USE [facility] [place] [facility] Sep 24, 2010 08:51 AM V1-PT DECLINES TOBACCO CESSATION MEDS [facility] [place] [facility] Sep 24, 2010 08:51 AM V1-PT THINKING ABOUT QUIT TOBACCO USE [facility] [place] [facility] Mar 22, 2010 07:58 AM CURRENT SMOKER 1/2 ppd [facility] [place] [facility] Feb 25, 2009 12:05 PM QUIT TOBACCO USE IN PAST YEAR [facility] [place] [facility] Aug 26, 2008 09:28 AM CURRENT SMOKER 1/2 ppd [facility] [place] [facility] Aug 26, 2008 09:28 AM V1-PT DECLINES REF TO TOBACCO CESS PRGM [facility] [place] [facility] Aug 26, 2008 09:28 AM V1-PT READY TO QUIT TOBACCO USE [facility] [place] [facility] Dec 19, 2007 10:08 AM V1-PT DECLINES REF TO TOBACCO CESS PRGM [facility] [place] [facility] Dec 19, 2007 10:08 AM V1-PT DECLINES TOBACCO CESSATION MEDS [facility] [place] [facility] Dec 19, 2007 10:08 AM V1-PT THINKING ABOUT QUIT TOBACCO USE [facility] [place] [facility] Sep 11, 2007 11:10 AM CURRENT SMOKER [facility] [place] [facility] Sep 11, 2007 11:10 AM V1-PT DECLINES REF TO TOBACCO CESS PRGM [facility] [place] [facility] Sep 11, 2007 11:10 AM V1-PT DECLINES TOBACCO CESSATION MEDS [facility] [place] [facility] Sep 11, 2007 11:10 AM V1-PT THINKING ABOUT QUIT TOBACCO USE [facility] [place] [facility] Feb 13, 2007 01:46 PM V1-PT DECLINES REF TO TOBACCO CESS PRGM [facility] [place] [facility] Feb 13, 2007 01:46 PM V1-PT DECLINES TOBACCO CESSATION [facility] [place] [facility] Feb 13, 2007 01:46 PM V1-PT THINKING ABOUT QUIT TOBACCO USE [facility] [place] [facility] Oct 02, 2006 08:28 AM QUIT TOBACCO USE IN PAST YEAR 3 [facility] Aug 19, 2005 08:33 AM QUIT TOBACCO USE IN PAST YEAR [facility] Sep 21, 2004 09:54 AM CURRENT SMOKER [facility] Sep 07, 2004 08:07 AM CURRENT [facility]KER [facility] Sep 15, 2003 11:21 AM CURRENT SMOKER smokes one pk day [facility] Jul 23, 2003 01:57 PM CURRENT SMOKER [facility] Advance Directives: All historical and current Section Date Range: From patient's date of to the date document was created. This section includes ALL of a patient's completed or amended DC Advance and Rescinded Directives. The entries below indicate that a directive exists for the patient, but an actual copy is not included with this document. The data comes from all [facility]. Date Advance Directives Provider Source Apr 10, 2023 ADVANCE DIRECTIVE [facility] [facility] Apr 19, 2007 [facility] Encounter Notes: All associated encounter notes This section contains the clinical notes associated to the Encounter. Date/Time Encounter Note(s) Provider Source Nov 10, 2023 09:17 AM ADMINISTRATIVE NOT E: LOCAL TITLE: CCC: SCHEDULING ADMINISTRATION STANDARD TITLE: ADMINISTRATIVE NOTE DATE OF NOTE: NOV 10, 2023@09:17:54 ENTRY DATE: NOV 10, 2023@09:17:54 AUTHOR: ROBERT ANNA COSIGNER: URGENCY: STATUS: COMPLETED Patient Demographics Patient Name: GUSTAVO ARAMBULA Patient Primary Phone: [phone] Patient Primary [address]: [address] [place] [id number] Patient : 1940 Patient Age: 83 Call Back Number: [phone] Caller/Recipient Relation to Patient: Self Administrative Administrative Note Reason: Medication Renewal DC Medications Refill/Renewal Request: Rx # - Medication Name - Dosage - SIG - Number of Refills - Facility - Status [id number] - APIXABAN 5MG TAB - Medication - 1 TABLET - TAKE ONE TABLET BY MOUTH EVERY 12 HOURS FOR PREVENTION OF BLOOD CLOTS - 0 - [email or web address]N [facility] - 631 - ACTIVE NonVA Medications Refill/Renewal Request: Renew and have ready for pickup. PANTOPRAZOLE NA 40MG EC TAB APIXABAN 5MG TAB - WOULD LIKE 90 DAY SUPPLY /es/ ROBERT ANNA VISN1 CCC AMSA Signed: 11/10/2023 09:18 Receipt Acknowledged By: 11/10/2023 09:35 /es/ DARLENE BOX CERTIFIED NURSE PRACTITIONER 11/10/2023 10:19 /es/ STACI COLLIERN,RN-BC REGISTERED NURSE (RN) [facility]NA [facility]
--- OUTSIDE RECORDS SUMMARY | 2024-08-16 09:29 | XMS_ITS ---
Author Name [facility] [place] Organization [facility] [place] Address [address] [place] [address] Care Team Providers Care Watch Assembler Name Role Phone TRACY VILLANUEVA Primary Care [...] PHI MEDEX BRONZ E December 19, 2013 [id number] GUSTAVO ARAMBULA SR PATIENT [employer] MEDICARE SUPPLEMEN PHI MEDIC ARE SUPPL EMENT Jul 21, 2007 NONE [id number] [phone] Edgar ARAMBULA PATIENT [place] MED[place] SUPPLEMEN PHI MEDEX BRONZ E December 19, 2013 [id number] GUSTAVO ARAMBULA SR PATIENT [place] MEDICARE SUPPLEMEN PHI MEDEX BRONZ E December 19, 2013 [id number] Edgar ARAMBULAN PATIENT MEDICARE (WNR) MEDICARE (M) PART A Oct 19, 2004 PART A [id number] [phone] Edgar ARAMBULA [place] PATIENT MEDICARE (WNR) MEDICARE (M) PART B Oct 19, 2004 PART B [id number] Edgar ARAMBULA [place] PATIENT MEDICARE (WNR) MEDICARE (M) PART A Oct 19, 2004 PART A [id number] Edgar ARAMBULA [place] PATIENT MEDICARE (WNR) MEDICARE (M) PART B Oct 19, 2004 PART B [id number] Edgar ARAMBULA [place] PATIENT MEDICARE (WNR) MEDICARE (M) PART A Oct 19, 2004 PART A [id number] [id number] Edgar ARAMBULA [place] PATIENT MEDICARE (WNR) MEDICARE (M) PART B Oct 19, 2004 PART B [id number] Edgar ARAMBULAN PATIENT MEDICARE (WNR) MEDICARE () PART A Oct 19, 2004 PART A [id number] Edgar ARAMBULAN PATIENT MEDICARE (WNR) MEDICARE (M) PART B Oct 19, 2004 PART B [id number] [phone] Edgar ARAMBULAN PATIENT MEDICARE (WNR) MEDICARE () PART A Oct 19, 2004 PART A [id number] Edgar ARAMBULAN PATIENT MEDICARE (WNR) MEDICARE (M) PART B Oct 19, 2004 PART B [id number] Edgar ARAMBULAN PATIENT Selected Encounter This section includes the information on record at [place] for the Encounter. Date/Time Encounter Type Encounter Description Reason Provider Source Oct 27, 2023 10:17 AM Outpatient Encounter TELEPHONE TRIAGE LUCINA BROOKE Encounter Template Text not used by VA [...] 20 appointments. The data comes from all [facility]. Appointment Date/Time Appointment Type Appointme nt Facility Name Nov 06, 2023 09:30 AM AMBULATORY - MEDICINE [facility] December 21, 2023 09:00 AM AMBULATORY - PSYCHIATRY [facility] December 25, 2023 09:00 AM [facility] Feb 05, 2024 10:00 AM AMBULATORY - MEDICINE [facility] Feb 13, 2024 11:30 AM AMBULATORY - MEDICINE [facility] Feb 15, 2024 09:00 AM AMBULATORY - PSYCHIATRY [facility] Feb 15, 2024 09:45 AM AMBULATORY - NONE [facility] Mar 07, 2024 09:00 AM AMBULATORY - PSYCHIATRY [facility] Mar 08, 2024 08:30 AM AMBULATORY - NONE [facility] Mar 11, 2024 09:00 AM AMBULATORY - MEDICINE [facility] Apr 04, 2024 11:00 AM AMBULATORY - PSYCHIATRY [facility] Apr 08, 2024 09:30 AM AMBULATORY - MEDICINE [facility] Apr 10, 2024 10:45 AM AMBULATORY - MEDICINE [facility] Apr 26, 2024 11:00 AM AMBULATORY - MEDICINE [facility] Active, Pending, and Scheduled Orders This section includes a listing of several types of active, pending, and scheduled orders, including clinic medications orders, diagnostic test orders, procedure orders and consult orders; where the start date of the order is 45 days before the date of the Encounter or 45 days after the date of theEncounter. The data comes from all [facility]. Test Date/Time Test Type Test Details Facility Name Sep 26, 2023 09:55 AM Consult Order [facility] Cons Animation Director's [facility] Social History: Smoking Status (Most current) and Tobacco Use (All prior to encounter date) This section includes the most current, and the historical, smoking and tobacco- related health factors from the [place] facility where the Encounter took place. Current Smoking Status This section includes the most current smoking, or tobacco-related health factor, from the [place] facility where the Encounter took place. Date/Time Current Smoking Status Comment Facil it Dec 13, 2022 03:00 PM VA-TOBACCO USER EVERY DAY [facility] Tobacco Use History This section includes a history of the smoking, or tobacco-related health factors, that were collected on or before the date of the Encounter. The data comes from the [place] facility where the Encounter took place. Date/Time Smoking Status/Tobac co Use Comment Facility Dec 13, 2022 03:00 PM VA-TOBACCO USE 30 YEARS OR MORE [facility] Dec 13, 2022 03:00 PM VA-TOBACCO USE ADVICE [facility] Dec 13, 2022 03:00 PM VA-TOBACCO USE CUT TOBACCO BULKER NO [facility] Dec 13, 2022 03:00 PM VA-TOBACCO USE MED NO [facility] Dec 13, 2022 03:00 PM VA-TOBACCO USER EVERY DAY [facility] Nov 17, 2021 10:00 AM VA-TOBACCO USE 30 YEARS OR MORE [facility] Nov 17, 2021 10:00 AM VA-TOBACCO USE ADVICE [facility] Nov 17, 2021 10:00 AM VA-TOBACCO USE CUT TOBACCO BULKER NO [facility] Nov 17, 2021 10:00 AM VA-TOBACCO USE MED NO [facility] Nov 17, 2021 10:00 AM VA-TOBACCO USE WI 30 MIN OF WAKEUP [facility] Nov 17, 2021 10:00 AM VA-TOBACCO USER EVERY DAY [facility] Oct 14, 2013 12:55 PM V1-PT NOT INTERESTED IN QUIT TOBACCO USE [facility] May 07, 2013 05:04 PM CURRENT SMOKER trying to stop [facility] May 07, 2013 05:04 PM V1-PT DECLINES REF TO TOBACCO CESS [facility] May 07, 2013 05:04 PM V1-PT DECLINES TOBACCO CESSATION MEDS [facility] May 07, 2013 05:04 PM V1-PT READY TO QUIT TOBACCO USE [facility] Dec 03, 2012 08:23 AM V1-PT DECLINES REF TO TOBACCO CESS PRGM [facility] Dec 03, 2012 08:23 AM V1-PT DECLINES TOBACCO CESSATION MEDS [facility] Dec 03, 2012 08:23 AM V1-PT THINKING ABOUT QUIT TOBACCO USE [facility] BIBIANATRN [facility] Jun 05, 2012 08:45 AM CURRENT SMOKER 1/2ppd [facility] BIBIANAN [facility] Jun 05, 2012 08:45 AM V1-PT DECLINES REF TO TOBACCO CESS PR[facility] Jun 05, 2012 08:45 AM V1-PT THINKING ABOUT QUIT TOBACCO USE [facility] [facility] Jun 05, 2012 08:45 AM V1-TOBACCO CESS MEDS NOT PRESCRIBED Vet wants to talk to his provider-He is nervous about taking meds to quit- but he is interested in quitting [facility] Nov 25, 2011 09:14 AM V1-PT DECLINES REF TO TOBACCO CESS PR[facility] Nov 25, 2011 09:14 AM V1-PT DECLINES TOBACCO CESSATION MEDS [facility] Nov 25, 2011 09:14 AM V1-PT THINKING ABOUT QUIT TOBACCO USE [facility] BIBIANATRN [facility] May 06, 2011 01:02 PM CURRENT SMOKER [facility] May 06, 2011 01:02 PM V1-PT DECLINES TOBACCO CESSATION MEDS [facility] BIBIANATRN [facility] May 06, 2011 01:02 PM V1-PT NOT INTERESTED IN QUIT TOBACCO USE [facility]RN [facility] Sep 24, 2010 08:51 AM V1-PT DECLINES TOBACCO CESSATION MEDS [facility] Sep 24, 2010 08:51 AM V1-PT THINKING ABOUT QUIT TOBACCO USE [facility] Mar 22, 2010 07:58 AM CURRENT SMOKER 1/2 ppd [facility] Feb 25, 2009 12:05 PM QUIT TOBACCO USE IN PAST YEAR [facility] Aug 26, 2008 09:28 AM CURRENT SMOKER 1/2 ppd [facility] Aug 26, 2008 09:28 AM V1-PT DECLINES REF TO TOBACCO CESS PRGM [facility] Aug 26, 2008 09:28 AM V1-PT READY TO QUIT TOBACCO USE [facility] Dec 19, 2007 10:08 AM V1-PT DECLINES REF TO TOBACCO CESS PRGM [facility] Dec 19, 2007 10:08 AM V1-PT DECLINES TOBACCO CESSATION MEDS [facility] Dec 19, 2007 10:08 AM V1-PT THINKING ABOUT QUIT TOBACCO USE [facility] Sep 11, 2007 11:10 AM CURRENT SMOKER [facility] Sep 11, 2007 11:10 AM V1-PT DECLINES REF TO TOBACCO CESS PR[facility] Sep 11, 2007 11:10 AM V1-PT DECLINES TOBACCO CESSATION MEDS [facility] Sep 11, 2007 11:10 AM V1-PT THINKING ABOUT QUIT TOBACCO USE [facility] Feb 13, 2007 01:46 PM V1-PT DECLINES REF TO TOBACCO CESS PRGM [facility] Feb 13, 2007 01:46 PM V1-PT DECLINES TOBACCO CESSATION MEDS [facility] Feb 13, 2007 01:46 PM V1-PT THINKING ABOUT QUIT TOBACCO USE [facility] Oct 02, 2006 08:28 AM QUIT TOBACCO USE IN PAST YEAR 3 months ago [facility] Aug 19, 2005 08:33 AM QUIT TOBACCO USE IN PAST YEAR nonsmoker [facility] Sep 21, 2004 09:54 AM CURRENT SMOKER [facility] Sep 07, 2004 08:07 AM CURRENT SMOKER [facility] Sep 15, 2003 11:21 AM CURRENT SMOKER smokes one pk day [facility] Jul 23, 2003 01:57 PM CURRENT SMOKER [facility] Advance Directives: All historical and current Section Date Range: From patient's date of to the date document was created. This section includes ALL of a patient's completed or amended [place] Advance and Rescinded Directives. The entries below indicate that a directive exists for the patient, but an actual copy is not included with this document. The data comes from all [place] facilities. Date Advance Directives Provider Source Apr 10, 2023 ADVANCE DIRECTIVE ESSIE STARK [facility] Apr 19, 2007 ADVANCE DIRECTIVE VICTORIA JOHNSON [facility] Encounter Notes: All associated encounter notes This section contains the clinical notes associated to the Encounter. Date/Time Encounter Note(s) Provider Source Oct 27, 2023 10:18 AM RN PROGRESS NOTE: [facility] TITLE: CCC: CLINICAL TRIAGE STANDARD TITLE: RN PROGRESS NOTE DATE OF NOTE: OCT 27, 2023@10:18:01 ENTRY DATE: OCT 27, 2023@10:18:01 AUTHOR: ALEYDA BROOKE COSIGNER: URGENCY: STATUS: COMPLETED CCC: CLINICAL TRIAGE Has ADDENDA Patient Demographics Patient Name: GUSTAVO ARAMBULA Patient Primary Address: [address] [place] [id number] Patient Primary Phone: [phone] Patient : 1940 Patient Age: 82 Current Location: HOME Call Back Number: [phone] Caller/Recipient Relation to Patient: Self Emergency Contact: TEODORO GABRIEL Triage Summary Conducted triage/discussed symptoms Pain Score: 0 (No Pain) Utilized the Triage Tool: Yes Chief Complaint: Nausea Without Vomiting System WHEN: Now Nurse's Recommendation / WHEN: Now System WHERE: Emergency department Nurse's Recommendation / WHERE: ED Other Nurse's Other / WHERE: [facility] Patient Disposition Patient/Caregiver agrees to plan of care: Yes Patient WHERE: ED Other Other - Patient Where Disposition: [facility] Patient WHEN: Now Patient is Urgent or Emergent Nursing Plan and Disposition Referred patient to higher level of care Instructed to go to Emergency Room (ER) Nurse Summary Nurse Summary: Vet reports nausea x 4 days with black stool. Clinical Contact Center Codes Clinic/Location: V1 CWM PHONE CCC RN [facility] Triage Complete Triage Note: Phone Triage 27 Oct 2023 15:13:29 +0000 [facility] Demographics 83 y/o Male Results CC: Nausea Without Vomiting Software suggested: Now Software suggested follow-up location: Emergency department Values and Measures Duration of CC: 4 Days Positive Responses HPI: dyspnea, with nausea HPI: melena, more than 3 episodes PMH: diabetes PMH: heart disease VS: BP not taken VS: pulse not taken VS: temperature not taken Negative Responses Denies: HPI: abdominal pain Denies: HPI: chest pain Denies: HPI: diaphoresis, with nausea, duration longer than 10 minutes Denies: HPI: lightheadedness, duration longer than 10 minutes, with the nausea Denies: HPI: vomiting Denies: HPI: weakness, duration longer than 10 minutes, with nausea Denies: MEDS: insulin Denies: PMH: angina Denies: PMH: Crohn's disease Denies: PMH: heart attack Denies: PMH: stroke or TIA Denies: PMH: ulcerative colitis /reginaldo/ ALEYDA BROOKE RN, MSN Signed: 10/27/2023 10:18 Receipt Acknowledged By: 10/27/2023 12:56 /es/ MARCUS DOZIER LPN LPN 10/27/2023 10:27 /reginaldo/ KAPIL COLLIER,RN-BC REGISTERED NURSE (RN) 10/27/2023 ADDENDUM STATUS: COMPLETED Noted, will go to ER for eval. /reginaldo/ KAPIL COLLIER,RN-BC REGISTERED NURSE (RN) Signed: 10/27/2023 10:27 [facility]
--- OUTSIDE RECORDS SUMMARY | 2024-08-16 09:29 | XMS_ITS | Encounter Summary ---
Author Name [facility] [place] [facility] [place] Address [address] [place] [address] Care Team Providers Care Paper Colorer Name Role Phone TRACY VILLANUEVA Primary Care [...] PHI MEDEX BRONZ E December 19, 2013 [id number] GUSTAVO GUZMAN SR PATIENT [employer] CASUALTY MEDICARE SUPPLEMEN PHI MEDIC ARE SUPPL EMENT Jul 21, 2007 NONE [id number] Edgar GUZMAN PATIENT BCBS IN MEDICARE SUPPLEMEN PHI MEDEX BRONZ E December 19, 2013 [id number] [phone] GUSTAVO GUZMAN SR PATIENT [place] MEDICARE SUPPLEMEN PHI MEDEX BRONZ E December 19, 2013 [id number] [phone] Edgar GUZMAN [place] PATIENT MEDICARE (WNR) MEDICARE (M) PART A Oct 19, 2004 PART A [id number] [phone] Edgar GUZMAN [place] PATIENT MEDICARE (WNR) MEDICARE (M) PART B Oct 19, 2004 PART B [id number] Edgar GUZMAN [place] PATIENT MEDICARE (WNR) MEDICARE (M) PART A Oct 19, 2004 PART A [id number] [phone] Edgar GUZMAN [place] PATIENT MEDICARE ([place]NR) MEDICARE (M) PART B Oct 19, 2004 PART B [id number] Edgar GUZMAN [place] PATIENT MEDICARE ([place]NR) MEDICARE (M) PART A Oct 19, 2004 PART A [id number] Edgar GUZMAN [place] PATIENT MEDICARE (WNR) MEDICARE () PART B Oct 19, 2004 PART B [id number] Edgar GUZMAN [place] PATIENT MEDICARE ([place]NR) MEDICARE () PART A Oct 19, 2004 PART A [id number] Edgar GUZMANN PATIENT MEDICARE (WNR) MEDICARE () PART B Oct 19, 2004 PART B [id number] Edgar GUZMAN [place] PATIENT MEDICARE ([place]) MEDICARE () PART A Oct 19, 2004 PART A [id number] Edgar GUZMAN [place] PATIENT MEDICARE ([place]) MEDICARE () PART B Oct 19, 2004 PART B [id number] [phone] Edgar GUZMANN PATIENT Selected Encounter This section includes the information on record at [place] for the Encounter. Date/Time Encounter Type Encounter Description Reason Provider Source Nov 06, 2023 09:30 AM OFFICE O/P EST MOD 30 MIN PAIN CLINIC ICD-10-CM D73.5 Infarction of spleen ERROL,S ETH B IHE Encounter Template Text not used by [facility] Assessments - Encounter Diagnoses This section includes the primary and secondary diagnoses documented for the Encounter. Date/Time Primary/Secondary Diagnosis Diagnosis Name Provider Source Nov 06, 2023 10:07 AM PRIMARY Infarction of spleen KUPFERSCHMID,S ETH B [facility] [place] [facility] Nov 06, 2023 10:07 AM SECONDARY Chronic pain syndrome KUPFERSCHMID,S ETH B [facility] [place] [facility] Nov 06, 2023 10:07 AM SECONDARY Major depressive disorder, recurrent, unspecified KUPFERSCHMID,S ETH B [facility] [place] [facility] Nov 06, 2023 10:07 AM SECONDARY Sleep apnea, unspecified KUPFERSCHMID,S ETH B [facility] [place] [facility] Plan of Treatment: Future Appointments (+ 6 months) and Future Tests (+/- 45 days) The Plan of Treatment section includes future care activities for the patient from all [place] treatmentfacilities. This section includes future appointments and future orders which are active, pending or scheduled. Future Appointments This section includes appointments that were scheduled to occur 6 months from the date of the Encounter, up to a maximum of 20 appointments. The data comes from all [place] treatment facilities. Appointment Date/Time Appointment Type Appointme nt Facility Name December 21, 2023 09:00 AM AMBULATORY - PSYCHIATRY [facility] [place] [facility] December 25, 2023 09:00 AM AMBULATORY - MEDICINE [facility] Feb 05, 2024 10:00 AM AMBULATORY - MEDICINE [facility] [place] [facility] Feb 13, 2024 11:30 AM AMBULATORY - MEDICINE [facility] Feb 15, 2024 09:00 AM AMBULATORY - PSYCHIATRY [facility] [place] [facility] Feb 15, 2024 09:45 AM AMBULATORY - NONE [facility] [place] [facility] Mar 07, 2024 09:00 AM AMBULATORY - PSYCHIATRY [facility] [place] [facility] Mar 08, 2024 08:30 AM AMBULATORY - NONE [facility] [place] [facility] Mar 11, 2024 09:00 AM AMBULATORY - MEDICINE [facility] Apr 04, 2024 11:00 AM AMBULATORY - PSYCHIATRY [facility] [place] [facility] Apr 08, 2024 09:30 AM AMBULATORY - MEDICINE [facility] [place] [facility] Apr 10, 2024 10:45 AM AMBULATORY - MEDICINE [place] [facility] [place] [facility] Apr 26, 2024 11:00 AM AMBULATORY - [place]ICINE [place] [facility] [place] [facility] Apr 30, 2024 08:30 AM AMBULATORY - PS[facility]CHIATRY [facility] [place] [facility] May 01, 2024 11:00 AM [facility] - NONE [facility] Active, Pending, and Scheduled Orders This section includes a listing of several types of active, pending, and scheduled orders, including clinic medications orders, diagnostic test orders, procedure orders and consult orders; where the start date of the order is 45 days before the date of the Encounter or 45 days after the date of theEncounter. The data comes from all [place] treatment facilities. Test Date/Time Test Type Test Details Facility Name Sep 26, 2023 09:55 AM Consult Order [facility] Cons Chief Fundraising Officer's [facility] Social History: Smoking Status (Most current) and Tobacco Use (All prior to encounter date) This section includes the most current, and the historical, smoking and tobacco- related health factors from the [place] facility where the Encounter took place. Current Smoking Status This section includes the most current smoking, or tobacco-related health factor, from the [place] facility where the Encounter took place. Date/Time Current Smoking Status Comment [facility] Dec 13, 2022 03:00 PM VA-TOBACCO USER EVERY DAY [facility] Tobacco Use History This section includes a history of the smoking, or tobacco-related health factors, that were collected on or before the date of the Encounter. The data comes from the [place] facility where the Encounter took place. Date/Time Smoking Status/Tobac co Use Comment Facility Dec 13, 2022 03:00 PM VA-TOBACCO USE 30 YEARS OR MORE [facility] [place] [facility] Dec 13, 2022 03:00 PM VA-TOBACCO USE ADVICE [facility] [place] [facility] Dec 13, 2022 03:00 PM VA-TOBACCO USE BOTTLE CLEANER NO [facility] [place] [facility] Dec 13, 2022 03:00 PM VA-TOBACCO USE MED NO [place] [facility] [place] [facility] Dec 13, 2022 03:00 PM VA-TOBACCO USER EVERY DAY [facility] [place] [facility] Nov 17, 2021 10:00 AM VA-TOBACCO USE 30 YEARS OR MORE [place] [facility] Nov 17, 2021 10:00 AM VA-TOBACCO USE ADVICE [place] [facility] [place] [facility] Nov 17, 2021 10:00 AM VA-TOBACCO USE BOTTLE CLEANER NO [facility] Nov 17, 2021 10:00 AM VA-TOBACCO USE MED NO [place] [facility] Nov 17, 2021 10:00 AM VA-TOBACCO USE WI 30 MIN OF WAKEUP [facility] Nov 17, 2021 10:00 AM VA-TOBACCO USER EVERY DAY [facility] Oct 14, 2013 12:55 PM V1-PT NOT INTERESTED IN QUIT TOBACCO USE [facility] [place] [facility] May 07, 2013 05:04 PM CURRENT SMOKER trying to stop [place] [facility] May 07, 2013 05:04 PM V1-PT DECLINES REF TO TOBACCO CESS PRGM [place] [facility] May 07, 2013 05:04 PM V1-PT DECLINES TOBACCO CESSATION MEDS [place] [facility] May 07, 2013 05:04 PM V1-PT READY TO QUIT TOBACCO USE [place] [facility] [place] [facility] Dec 03, 2012 08:23 AM V1-PT DECLINES REF TO TOBACCO CESS PRGM [place] [facility] Dec 03, 2012 08:23 AM V1-PT DECLINES TOBACCO CESSATION MEDS [facility] [place] [facility] Dec 03, 2012 08:23 AM V1-PT THINKING ABOUT QUIT TOBACCO USE [place] [facility] [place] [facility] Jun 05, 2012 08:45 AM CURRENT SMOKER 1/2ppd [place] [facility] [place] [facility] Jun 05, 2012 08:45 AM V1-PT DECLINES REF TO TOBACCO CESS PRGM [place] [facility] Jun 05, 2012 08:45 AM V1-PT THINKING ABOUT QUIT TOBACCO USE [place] [facility] [place] [facility] Jun 05, 2012 08:45 AM V1-TOBACCO CESS MEDS NOT PRESCRIBED Vet wants to talk to his provider-He is nervous about taking meds to quit- but he is interested in quitting [facility] [place] [facility] Nov 25, 2011 09:14 AM V1-PT DECLINES REF TO TOBACCO CESS PRGM [facility] Nov 25, 2011 09:14 AM V1-PT DECLINES TOBACCO CESSATION MEDS [facility] Nov 25, 2011 09:14 AM V1-PT THINKING ABOUT QUIT TOBACCO USE [facility] May 06, 2011 01:02 PM CURRENT SMOKER [facility] May 06, 2011 01:02 PM V1-PT DECLINES TOBACCO CESSATION MEDS [facility] May 06, 2011 01:02 PM V1-PT NOT INTERESTED IN QUIT TOBACCO USE [facility] Sep 24, 2010 08:51 AM V1-PT DECLINES TOBACCO CESSATION MEDS [facility] Sep 24, 2010 08:51 AM V1-PT THINKING ABOUT QUIT TOBACCO USE [facility] Mar 22, 2010 07:58 AM CURRENT SMOKER 1/2 ppd [facility] Feb 25, 2009 12:05 PM QUIT TOBACCO USE IN PAST YEAR [facility] Aug 26, 2008 09:28 AM CURRENT SMOKER 1/2 ppd [facility] Aug 26, 2008 09:28 AM V1-PT DECLINES REF TO TOBACCO CESS PRGM [facility] [place] [facility] Aug 26, 2008 09:28 AM V1-PT READY TO QUIT TOBACCO USE [facility] [place] [facility] Dec 19, 2007 10:08 AM V1-PT DECLINES REF TO TOBACCO CESS PRGM [facility] Dec 19, 2007 10:08 AM V1-PT DECLINES TOBACCO CESSATION MEDS [facility] Dec 19, 2007 10:08 AM V1-PT THINKING ABOUT QUIT TOBACCO USE [facility] [place] [facility] Sep 11, 2007 11:10 AM CURRENT SMOKER [facility] Sep 11, 2007 11:10 AM V1-PT DECLINES REF TO TOBACCO CESS PRGM [facility] Sep 11, 2007 11:10 AM V1-PT DECLINES TOBACCO CESSATION MEDS [facility] Sep 11, 2007 11:10 AM V1-PT THINKING ABOUT QUIT TOBACCO USE [facility] Feb 13, 2007 01:46 PM V1-PT DECLINES REF TO TOBACCO CESS PRGM [facility] Feb 13, 2007 01:46 PM V1-PT DECLINES TOBACCO CESSATION MEDS [facility] Feb 13, 2007 01:46 PM V1-PT THINKING ABOUT QUIT TOBACCO USE [facility] Oct 02, 2006 08:28 AM QUIT TOBACCO USE IN PAST YEAR 3 months ago [facility] Aug 19, 2005 08:33 AM QUIT TOBACCO USE IN PAST YEAR nonsmoker [facility] Sep 21, 2004 09:54 AM CURRENT SMOKER [facility] Sep 07, 2004 08:07 AM CURRENT SMOKER [facility] Sep 15, 2003 11:21 AM CURRENT SMOKER smokes one pk day [facility] Jul 23, 2003 01:57 PM CURRENT SMOKER [facility] Advance Directives: All historical and current Section Date Range: From patient's date of to the date document was created. This section includes ALL of a patient's completed or amended [place] Advance and Rescinded Directives. The entries below indicate that a directive exists for the patient, but an actual copy is not included with this document. The data comes from all [place] facilities. Date Advance Directives Provider Source Apr 10, 2023 ADVANCE DIRECTIVE [facility]SS[facility] Apr 19, 2007 ADVANCE DIRECTIVE VICTORIA JOHNSON [facility] Encounter Notes: All associated encounter notes This section contains the clinical notes associated to the Encounter. Date/Time Encounter Note(s) Provider Source Nov 06, 2023 09:55 AM ACCOUNTING OF DISCLOSURES NOTE: LOCAL TITLE: STATE PRESCRIPTION DRUG MONITORING PROGRAM STANDARD TITLE: ACCOUNTING OF DISCLOSURES NOTE DATE OF NOTE: NOV 06, 2023@09:55:50 ENTRY DATE: NOV 06, 2023@09:55:50 AUTHOR: JUAQUIN SCHAFFER EXP COSIGNER: URGENCY: STATUS: COMPLETED This PDMP query was submitted by Juaquin Schaffer MD. The clinical justification for this PDMP query is to review controlled substances prescribed outside of the [facility], and any additional information that may become available, as an important component of standard clinical care, and in accordance with [facility] policy. Patient information was shared with the PDMP [employer]riss [place]. No prescription(s) for controlled substances outside the [facility] were found in the last 90 days. /reginaldo/ JUAQUIN SCHAFFER MD PHYSICIAN Signed: 11/06/2023 10:08 JUAQUIN SCHAFFER [place] [facility] [place] [facility] Nov 06, 2023 09:36 AM PAIN MEDICINE OUTPATIENT NOTE: LOCAL TITLE: PAIN CLINIC NOTE STANDARD TITLE: PAIN MEDICINE OUTPATIENT NOTE DATE OF NOTE: NOV 06, 2023@09:36 ENTRY DATE: NOV 06, 2023@09:36:10 AUTHOR: JUAQUIN SCHAFFER EXP COSIGNER: URGENCY: STATUS: COMPLETED MEDICATION and RECONCILIATION ==== Active Outpatient Medications (including Supplies): Active Outpatient Medications Status 1) AMLODIPINE BESYLATE 10MG TAB TAKE ONE TABLET BY MOUTH ACTIVE (S) ONCE DAILY FOR BLOOD PRESSURE/HEART, DO NOT TAKE WITH GRAPEFRUIT JUICE 2) APIXABAN 5MG TAB TAKE ONE TABLET BY MOUTH EVERY 12 ACTIVE HOURS FOR PREVENTION OF BLOOD CLOTS 3) ASPIRIN 81MG EC TAB TAKE ONE TABLET BY MOUTH ONCE ACTIVE DAILY TO PREVENT STROKE/HEART ATTACK 4) ATORVASTATIN CALCIUM 40MG TAB TAKE ONE-HALF TABLET BY ACTIVE MOUTH ONCE DAILY FOR CHOLESTEROL 5) BUPRENORPHINE 15MCG/HR PATCH APPLY 1 PATCH TO SKIN ACTIVE EVERY 5 DAYS (REMOVE PATCH BEFORE APPLYING A NEW PATCH) 6) BUPROPION HCL 200MG 12HR SA TAB TAKE ONE TABLET BY ACTIVE MOUTH EVERY MORNING DEPRESSION 7) FLUTICAS 500/SALMETEROL 50 INHL DISK 60 INHALE 1 PUFF ACTIVE BY MOUTH TWICE DAILY - RINSE MOUTH AFTER USE 8) MELATONIN 5MG CAP/TAB TAKE ONE CAPSULE/TABLET BY ACTIVE MOUTH AT BEDTIME FOR INSOMNIA 9) METFORMIN HCL 750MG 24HR SA TAB TAKE TWO TABLETS BY ACTIVE MOUTH ONCE DAILY FOR TYPE 2 DIABETES MELLITUS 10) MIRTAZAPINE 30MG TAB TAKE ONE-HALF TABLET BY MOUTH AT ACTIVE BEDTIME FOR DEPRESSION/MOOD 11) PANTOPRAZOLE NA 40MG EC TAB TAKE ONE TABLET BY MOUTH ACTIVE EVERY MORNING 30 MINUTES BEFORE BREAKFAST 12) PREGABALIN 25MG ORAL CAP TAKE ONE CAPSULE BY MOUTH ACTIVE THREE TIMES A DAY 13) SENNOSIDES 8.6MG TAB TAKE ONE TABLET BY MOUTH TWICE ACTIVE DAILY NEEDED FOR CONSTIPATION 14) TIOTROPIUM 2.5MCG/ACTUAT 60D ORAL INHL INHALE 2 PUFFS ACTIVE BY MOUTH ONCE DAILY 15) TRAZODONE HCL 100MG TAB TAKE ONE-HALF TABLET BY MOUTH ACTIVE AT BEDTIME INSOMNIA ACTIVE PROBLEMS Active problems - Computerized Problem List is the source for the followin. Chronic anaemia 2. Diabetes mellitus type 2 3. Long-term current use of anticoagulant 4. Communication authorization 5. Splenic infarction 6. Abnormal imaging 7. Aortic valve stenosis 8. Aneurysm of ascending aorta 9. Osteopenia 10. Sleep apnea 11. Admits alcohol use 12. Insomnia 13. Chronic obstructive lung disease 14. History of peripheral vascular disease 15. Jc's esophagus 16. Disorder of lumbar disc (SNOMED CT 185759012) 17. Depression (SNOMED CT 31107594) 18. Dry Eye Syndromes * 19. 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 Artificial hip joint present (SNOMED CT 003200166) 21. Osteoarthritis of right hip joint (SNOMED CT 799539438748977) 22. Prostate, Malign Neoplasm 23. Cataract, Cortical (Senile) 24. 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 HYPERLIPIDEMIA 26. HYPERTENSION 27. POLYPS, COLON/LG BOWEL (BENIGN MAEGAN 28. Tobacco use (SNOMED CT 226822558) CURRENT ------- Son Gustavo in background. GF Suzi last week - aneurysm, sudden, on his birthday. Went to hospital last week; had stopped Butrans, was likely withdrawal. Restarted patch and symptoms resolved. Patch causes a rash that lasts about 2 weeks. Pain is doing better. 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 Right hip osteoarthritis Facial pain after trauma 2003 Depression, worsened by pain PAIN-RELATED MEDICATIONS Oxycodone 5 mg bid prn, uses sparingly Butrans, started 04/2023 Bupropion 200 mg daily Pregabalin 25 mg tid Mirtazapine 15 mg qhs Trazodone RISK MITIGATION PDMP last date: 11/06/2023 UDS last date: 07/2023 LTOT consent: 02/09/2023 SERVICE [employer] FROM December TO Oct Service Connected Disabilities with % - NONE [employer] for 2 years, [employer] SOCIAL HISTORY Retired Lives near son Gustavo and his RN Grandchildren and great grandchildren Has significant other Suzi (with her own health issues recently 05/2023) FAMILY HISTORY SUBSTANCE USE HISTORY Tobacco: 1 ppd ETOH: None now, 2-3 per day until operation Marijuana: tired edibles Illicit drugs: None ASSESSMENT and PLAN Mr. Guzman is an 82 year old [place] Veterean with pain in his left abdomen and chest since January 19, 2023, after a TAVR procedure. 11/06/2023 Pain remains improved compared to pre-consult in May. Son Gustavo and his (RN) are very helpful. Grieving of GEOVANI Archer. -Continue Butrans. -Continue oxycodone 5 mg daily in morning. -Steroid cream to use under patch. -Pregabalin - has not filled since 07/25 -Constipation relieved with stool softner DEPRESSION Meds per Dr. Leyva 08/10/2023 Increase Butrans to 15 mcg/hour Continue oxcodone, using sparingly Continue plan POST-SURGICAL PAIN, MOOD Improved with opioid medications -Butrans -May continue to use oxycodone 5 mg bid prn. -Encouraged to use prune juice for constipation. -Pregabalin for pain -Continue mirtazapine 15 mg qhs SLEEP APNEA Uses CPAP MOOD, SLEEP -Bupropion -Mirtazapine -Melatonin -Trazodone [facility] and I formulated the plan through shared medical-decision making. repeated the plan back to me and had no further questions at end of appointment. APPOINTMENT LENGTH: 35 minutes FOLLOW-UP: 3 months 11/14/2023 10:00 CWM/NO/JESSICA/BERNADINE 1 12/25/2023 09:00 CWM/SO/PACT 7 01/04/2024 10:00 COM CARE-ORTHO GEN ===== Appointment length includes time with [facility], completing clinical reminders, reviewing relevant information in EMR, review of PDMP, ordering appropriate tests, prescribing medications, coordinating care, and completing the medical record. [place] [facility] Connect ([facility]VC) Standard Documentation [facility] Clinician Resources Only: E911 (Emergency Call Relay Center): [phone] National Veterans Crisis Line - 988 then press #1. OFELIA Suicide Coordinator [phone], Ext. [phone]; Back-up Ext. [phone] [place] Police, Sabi GILBERT [phone] Introduction: Visit is being conducted by [place] [facility]. identified with 2 identifiers: [X] Full Name [X] Date of [ ] VA ID Card Emergency Plan: [facility] confirmed and/or provided the following information in case of emergency or technology failure. PATIENT PHONE - PHONE NUMBER [CELLULAR] - Is patient phone number correct, if not, enter below: 's phone number: GUSTAVO GUZMAN [address], [address] 's present location and address for appointment: Home [facility]'s emergency contact name and phone number: Listed [facility] reported that location is private and safe: Yes Informed Consent: [facility] informed of the risks and benefits of Telehealth video care. has the right to refuse video services. If refuses video visit, a [id number] visit will be scheduled. [facility] verbalized consent for this video visit: Yes provided consent for any other persons present for visit: Yes If yes, who and relationship to patient:Elijah Rebolledo Secure visit: Visit was locked for security and privacy:Yes /reginaldo/ JUAQUIN SCHAFFER MD PHYSICIAN Signed: 11/06/2023 10:07 JUAQUIN SCHAFFER [place] [facility]
--- OUTSIDE RECORDS SUMMARY | 2024-08-16 09:29 | XMS_ITS | Encounter Summary ---
Author Name [facility] [place] [facility] [place] [facility] [place] Address [address] [place] [address] Care Team Providers Care Newsroom Intern Name Role Phone TRACY VILLANUEVA Primary Care [...] PHI MEDEX BRONZ E December 19, 2013 [id number] [phone] GUSTAVO ARAMBULA SR PATIENT [employer] MEDICARE SUPPLEMEN PHI MEDIC ARE SUPPL EMENT Jul 21, 2007 NONE [id number] [phone] Edgar ARAMBULA [place] SUPPLE[place] PHI MEDEX BRONZ E December 19, 2013 [id number] GUSTAVO ARAMBULA SR PATIENT [place] OF [place] ([place]) MEDICARE SUPPLEMEN PHI MEDEX BRONZ E December 19, 2013 [id number] Edgar ARAMBULA PATIENT MEDICARE (WNR) MEDICARE () PART A Oct 19, 2004 PART A [id number] Edgar ARAMBULAN PATIENT MEDICARE (WNR) MEDICARE (M) PART B Oct 19, 2004 PART B [id number] Edgar ARAMBULA [place] PATIENT MEDICARE (WNR) MEDICARE () PART A Oct 19, 2004 PART A [id number] Edgar ARAMBULAN PATIENT MEDICARE (WNR) MEDICARE () PART B Oct 19, 2004 PART B [id number] Edgar ARAMBULAN PATIENT MEDICARE (WNR) MEDICARE () PART A Oct 19, 2004 PART A [id number] Edgar ARAMBULAN PATIENT MEDICARE (WNR) MEDICARE () PART B Oct 19, 2004 PART B [id number] Edgar ARAMBULAN PATIENT MEDICARE (WNR) MEDICARE () PART A Oct 19, 2004 PART A [id number] Edgar ARAMBULA PATIENT MEDICARE (WNR) MEDICARE () PART A Oct 19, 2004 PART A [id number] [phone] Edgar ARAMBULAN PATIENT MEDICARE (WNR) MEDICARE () PART B Oct 19, 2004 PART B [id number] Edgar ARAMBULAN PATIENT MEDICARE (WNR) MEDICARE () PART B Oct 19, 2004 PART B [id number] Edgar ARAMBULAN PATIENT Selected Encounter This section includes the information on record at [place] for the Encounter. Date/Time Encounter Type Encounter Description Reason Pro vider Source Nov 17, 2023 12:24 PM Outpatient Encounter COMMUNITY CARE CONSULT IHE Encounter Template Text not used by [...] AMBULATORY - [facility]AT[facility] [place] [facility] December 25, 2023 09:00 AM [facility]AT[facility]ICINE [facility] Feb 05, 2024 10:00 AM AMBULATORY - MEDICINE [facility] [place] [facility] Feb 13, 2024 11:30 AM [facility] Feb 15, 2024 09:00 AM AMBULAT[facility] PS[facility]CHIATRY [facility] [place] [facility] Feb 15, 2024 09:45 AM AMBULATORY - NONE [facility] [place] [facility] Mar 07, 2024 09:00 AM AMBULATORY - PSYCHIATRY [facility] [place] [facility] Mar 08, 2024 08:30 AM AMBULATORY - NONE [facility] [place] [facility] Mar 11, 2024 09:00 AM [facility]IC[facility] Apr 04, 2024 11:00 AM AMBULATORY - PSYCHIATRY [facility] [place] [facility] Apr 08, 2024 09:30 AM AMBULATORY - MEDICINE [facility] [place] [facility] Apr 10, 2024 10:45 AM AMBULATORY - MEDICINE [facility] [place] [facility] Apr 26, 2024 11:00 AM AMBULATORY [place]ICINE [place] [facility] [place] [facility] Apr 30, 2024 08:30 AM AMBULATORY - PSYCHIATRY [facility] [place] [facility] May 01, 2024 11:00 AM AMBULATORY - NONE [facility] [place] [facility] May 14, 2024 11:30 AM AMBULATORY - MEDICINE [facility] Social History: Smoking Status (Most current) and Tobacco Use (All prior to encounter date) This section includes the most current, and the historical, smoking and tobacco- related health factors from the [facility] facility where the Encounter took place. Current Smoking Status This section includes the most current smoking, or tobacco-related health factor, from the VA facility where the Encounter took place. Date/Time Current Smoking Status Comment Facil ity Dec 13, 2022 03:00 PM VA-TOBACCO USER EVERY DAY [place] [facility] [place] [facility] Tobacco Use History This section includes a history of the smoking, or tobacco-related health factors, that were collected on or before the date of the Encounter. The data comes from the [place] facility where the Encounter took place. Date/Time Smoking Status/Tobac co Use Comment [facility] Dec 13, 2022 03:00 PM VA-TOBACCO USE 30 YEARS OR MORE [facility] [place] [facility] Dec 13, 2022 03:00 PM VA-TOBACCO USE ADVICE [facility] [place] [facility] Dec 13, 2022 03:00 PM VA-TOBACCO USE IT DIRECTOR NO [place] [facility] [place] [facility] Dec 13, 2022 03:00 PM VA-TOBACCO USE MED NO [place] [facility] [place] [facility] Dec 13, 2022 03:00 PM VA-TOBACCO USER EVERY DAY [facility] [place] [facility] Nov 17, 2021 10:00 AM VA-TOBACCO USE 30 YEARS OR MORE [facility] [place] [facility] Nov 17, 2021 10:00 AM VA-TOBACCO USE ADVICE [place] [facility] [place] [facility] Nov 17, 2021 10:00 AM VA-TOBACCO USE IT DIRECTOR NO [place] [facility] [place] [facility] Nov 17, 2021 10:00 AM VA-TOBACCO USE MED NO [place] [facility] [place] [facility] Nov 17, 2021 10:00 AM VA-TOBACCO USE WI 30 MIN OF WAKEUP [place] [facility] [place] [facility] Nov 17, 2021 10:00 AM VA-TOBACCO USER EVERY DAY [facility] [place] [facility] Oct 14, 2013 12:55 PM V1-PT NOT INTERESTED IN QUIT TOBACCO USE [facility] [place] [facility] May 07, 2013 05:04 PM CURRENT SMOKER trying to stop [facility] [place] [facility] May 07, 2013 05:04 PM V1-PT DECLINES REF TO TOBACCO CESS PRGM [place] [facility] [place] [facility] May 07, 2013 05:04 PM V1-PT DECLINES TOBACCO CESSATION MEDS [place] [facility] [place] [facility] May 07, 2013 05:04 PM V1-PT READY TO QUIT TOBACCO USE [facility] [place] [facility] Dec 03, 2012 08:23 AM V1-PT DECLINES REF TO TOBACCO CESS PRGM [facility] [place] [facility] Dec 03, 2012 08:23 AM V1-PT DECLINES TOBACCO CESSATION MEDS [facility] Dec 03, 2012 08:23 AM V1-PT THINKING ABOUT QUIT TOBACCO USE [facility] [place] [facility] Jun 05, 2012 08:45 AM CURRENT SMOKER 1/2ppd [facility] Jun 05, 2012 08:45 AM V1-PT DECLINES REF TO TOBACCO CESS PRGM [facility] Jun 05, 2012 08:45 AM V1-PT THINKING ABOUT QUIT TOBACCO USE [facility] Jun 05, 2012 08:45 AM V1-TOBACCO CESS MEDS NOT PRESCRIBED Vet wants to talk to his provider-He is nervous about taking meds to quit- but he is interested in quitting [facility] Nov 25, 2011 09:14 AM V1-PT DECLINES REF TO TOBACCO CESS PRGM [facility] Nov 25, 2011 09:14 AM V1-PT DECLINES TOBACCO CESSATION MEDS [facility] Nov 25, 2011 09:14 AM V1-PT THINKING ABOUT QUIT TOBACCO USE [facility] May 06, 2011 01:02 PM CURRENT SMOKER [facility] May 06, 2011 01:02 PM V1-PT DECLINES TOBACCO CESSATION MEDS [facility] May 06, 2011 01:02 PM V1-PT NOT INTERESTED IN QUIT TOBACCO USE [facility] Sep 24, 2010 08:51 AM V1-PT DECLINES TOBACCO CESSATION MEDS [facility] Sep 24, 2010 08:51 AM V1-PT THINKING ABOUT QUIT TOBACCO USE [facility] [place] Mar 22, 2010 07:58 AM CURRENT SMOKER 1/2 ppd [facility] [place] [facility] Feb 25, 2009 12:05 PM QUIT TOBACCO USE IN PAST YEAR [facility] [place] [facility] Aug 26, 2008 09:28 AM CURRENT SMOKER 1/2 ppd [facility] [place] [facility] Aug 26, 2008 09:28 AM V1-PT DECLINES REF TO TOBACCO CESS PRGM [facility] [place] [facility] Aug 26, 2008 09:28 AM V1-PT READY TO QUIT TOBACCO USE [facility] [place] [facility] Dec 19, 2007 10:08 AM V1-PT DECLINES REF TO TOBACCO CESS PRGM [facility] [place] [facility] Dec 19, 2007 10:08 AM V1-PT DECLINES TOBACCO CESSATION MEDS [facility] [place] [facility] Dec 19, 2007 10:08 AM V1-PT THINKING ABOUT QUIT TOBACCO USE [facility] [place] [facility] Sep 11, 2007 11:10 AM CURRENT SMOKER [facility] [place] [facility] Sep 11, 2007 11:10 AM V1-PT DECLINES REF TO TOBACCO CESS PRGM [facility] [place] [facility] Sep 11, 2007 11:10 AM V1-PT DECLINES TOBACCO CESSATION MEDS [facility] [place] [facility] Sep 11, 2007 11:10 AM V1-PT THINKING ABOUT QUIT TOBACCO USE [facility] [place] [facility] Feb 13, 2007 01:46 PM V1-PT DECLINES REF TO TOBACCO CESS PRGM [facility] [place] [facility] Feb 13, 2007 01:46 PM V1-PT DECLINES TOBACCO CESSATION MEDS [facility] [place] [facility] Feb 13, 2007 01:46 PM V1-PT THINKING ABOUT QUIT TOBACCO USE [facility] [place] [facility] Oct 02, 2006 08:28 AM QUIT TOBACCO USE IN PAST YEAR 3 months ago [facility] [place] [facility] Aug 19, 2005 08:33 AM QUIT TOBACCO USE IN PAST YEAR nonsmoker [facility] [place] [facility] Sep 21, 2004 09:54 AM CURRENT SMOKER [facility] [place] [facility] Sep 07, 2004 08:07 AM CURRENT SMOKER [facility] [place] [facility] Sep 15, 2003 11:21 AM CURRENT SMOKER smokes one pk day [facility] Jul 23, 2003 01:57 PM [facility] Advance Directives: All historical and [...] 10, 2023 ADVANCE DIRECTIVE ESSIE STARK [facility] Apr 19, 2007 ADVANCE DIRECTIVE ELIZABETHVICTORIA AGUIRRE [facility] Encounter Notes: All associated encounter notes This section contains the clinical notes associated to the Encounter. Date/Time Encounter Note(s) Provider Source Nov 17, 2023 12:54 PM ADDENDUM: LOCAL TITLE: Addendum STANDARD TITLE: ADDENDUM DATE OF NOTE: NOV 17, 2023@12:54:51 ENTRY DATE: NOV 17, 2023@12:54:52 AUTHOR: LATESHA ISAAC EXP COSIGNER: URGENCY: STATUS: COMPLETED Please request discharge summary from [facility]. /reginaldo/ KAPIL COLLIER,RN- REGISTERED NURSE (RN) Signed: 11/17/2023 12:55 Receipt Acknowledged By: 11/17/2023 16:18 /reginaldo/ RABIA MANN ADVANCED FIRE MANAGEMENT TECHNICIAN --- Original Document --- 11/17/23 [facility] PRESENTING CARE COORD PLAN NOTE: Emergency Notification Intake Date Presenting to the Facility: Oct Method of Contact: Notified from [facility] worklist Notification ID: [id number] [facility] Referral #: [id number] [facility] Name: Hospital: [facility] Address: City: [place] State: [place] Zip Code: Phone : [facility] of Contact: Name: Amy Phone: Chief complaint: abdominal pain, nausea, dizziness Primary Diagnosis: Disposition Discharged Date of discharge: Oct Discharge to Comment: ER Only /chavez ROSARIO AMSA Signed: 11/17/2023 12:26 Receipt Acknowledged By: * AWAITING SIGNATURE * MARCELLE ABREU 11/17/2023 12:29 /es/ DARLENE BOX CERTIFIED NURSE PRACTITIONER * AWAITING SIGNATURE * RONEL LAIRD * AWAITING SIGNATURE * ALYSHA HARRIS * AWAITING SIGNATURE * MOISÉS PERES 11/17/2023 12:54 /reginaldo/ STACI COLLIERN,RN-BC REGISTERED NURSE (RN) 11/17/2023 ADDENDUM STATUS: COMPLETED AMSA REQUESTED DISCHARGE SUMMARY FROM [facility] DIRECTED. /es/ RABIA MANN ADVANCED FIRE MANAGEMENT TECHNICIAN Signed: 11/17/2023 16:17 LATESHA ISAAC BEECHER Nov 17, 2023 12:24 PM NONVA NOTE: LOCAL TITLE: COMMUNITY CARE-CELIA SELF PRESENTING CARE COORD PLAN STANDARD TITLE: NONVA NOTE DATE OF NOTE: NOV 17, 2023@12:24 ENTRY DATE: NOV 17, 2023@12:24:39 AUTHOR: LISSETTE ROSARIO COSIGNER: URGENCY: STATUS: COMPLETED COMMUNITY CARE-CELIA SELF PRESENTING CARE COORD PLAN NOTE Has ADDENDA Emergency Notification Intake Date Presenting to the Facility: Oct Method of Contact: Notified from [facility] worklist Notification ID: [id number] [facility] Referral #: [id number] [facility] Name: Hospital: [facility] Address: City: [place] State: [place] Zip Code: Phone : [facility] of Contact: Name: Amy Phone: Chief complaint: abdominal pain, nausea, dizziness Primary Diagnosis: Disposition Discharged Date of discharge: Oct Discharge to Comment: ER Only /chavez ROSARIO AMSA Signed: 11/17/2023 12:26 Receipt Acknowledged By: * AWAITING SIGNATURE * MARCELLE ABREU 11/17/2023 12:29 /es/ DARLENE BOX CERTIFIED NURSE PRACTITIONER * AWAITING SIGNATURE * RONEL LAIRD * AWAITING SIGNATURE * ALYSHA HARRIS * AWAITING SIGNATURE * MOISÉS PERES 11/17/2023 12:54 /es/ KAPIL COLLIER,RN-BC REGISTERED NURSE (RN) 11/17/2023 ADDENDUM STATUS: COMPLETED Please request discharge summary from [facility]. /es/ KAPIL COLLIER,RN-BC REGISTERED NURSE (RN) Signed: 11/17/2023 12:55 Receipt Acknowledged By: 11/17/2023 16:18 /es/ RABIA MANN ADVANCED FIRE MANAGEMENT TECHNICIAN 11/17/2023 ADDENDUM STATUS: COMPLETED AMSA REQUESTED DISCHARGE SUMMARY FROM [facility] DIRECTED. /es/ RABIA MANN ADVANCED FIRE MANAGEMENT TECHNICIAN Signed: 11/17/2023 16:17 LISSETTE ROSARIO BEECHER
--- OUTSIDE RECORDS SUMMARY | 2024-08-16 09:30 | XMS_ITS | Encounter Summary ---
Author Name [facility] [place] [facility] [place] [facility] [place] Address [address] [place] [address] Care Team Providers Care Spanish Teacher Name Role Phone TRACY CARRILLO Primary Care [...] PHI MEDEX BRONZ E December 19, 2013 [id number] GUSTAVO ARAMBULA SR PATIENT [employer] CASUALTY MEDICARE SUPPLEMEN PHI MEDIC ARE SUPPL EMENT Jul 21, 2007 NONE [id number] Edgar ARAMBULA PATIENT [place] MED[place] SUPPLEMEN PHI MEDEX BRONZ E December 19, 2013 [id number] GUSTAVO ARAMBULA SR PATIENT [place] MEDICARE SUPPLEMEN PHI MEDEX BRONZ E December 19, 2013 [id number] [phone] Edgar ARAMBULA PATIENT MEDICARE (WNR) MEDICARE (M) PART A Oct 19, 2004 PART A [id number] Edgar ARAMBULA [place] PATIENT MEDICARE (WNR) MEDICARE (M) PART B Oct 19, 2004 PART B [id number] [id number] Edgar ARAMBULAN PATIENT MEDICARE (WNR) MEDICARE (M) PART A Oct 19, 2004 PART A [id number] [phone] Edgar ARAMBULAN PATIENT MEDICARE (WNR) MEDICARE (M) PART B Oct 19, 2004 PART B [id number] Edgar ARAMBULAN PATIENT MEDICARE (WNR) MEDICARE (M) PART A Oct 19, 2004 PART A [id number] [id number] Edgar ARAMBULAN PATIENT MEDICARE (WNR) MEDICARE () PART B Oct 19, 2004 PART B [id number] Edgar ARAMBULAN PATIENT MEDICARE (WNR) MEDICARE () PART A Oct 19, 2004 PART A [id number] Edgar ARAMBULAN PATIENT MEDICARE (WNR) MEDICARE () PART B Oct 19, 2004 PART B [id number] Edgar ARAMBULAN PATIENT MEDICARE (WNR) MEDICARE () PART A Oct 19, 2004 PART A [id number] [phone] Edgar ARAMBULAN PATIENT MEDICARE (WNR) MEDICARE (M) PART B Oct 19, 2004 PART B [id number] Edgar ARAMBULA PATIENT Selected Encounter This section includes the information on record at [place] for the Encounter. Date/Time Encounter Type Encounter Description Reason Pro vider Source Sep 27, 2023 03:07 PM Outpatient Encounter ADMIN PAT ACTIVTIES (MASNONCT) IHE Encounter Template Text not used by [place] Plan of Treatment: Future Appointments (+ 6 months) and Future Tests (+/- 45 days) The Plan of Treatment section includes future care activities for the patient from [facility] [place] [facility] This section includes future appointments and future orders which are active, pending or scheduled. Future Appointments This section includes appointments that were scheduled to occur 6 months from the date of the Encounter, up to a maximum of 20 appointments. The data comes from all [facility]. Appointment Date/Time Appointment Type Appointme nt Facility Name Oct 16, 2023 09:00 AM AMBULATORY [place]ICINE [place] [facility] [facility] Nov 06, 2023 09:30 AM AM[place]IC[place] [facility] [place] [facility] December 21, 2023 09:00 AM [place] [place] [facility] December 25, 2023 09:00 AM [facility]ATORY - MEDICINE [facility] Feb 05, 2024 10:00 AM [place]ORY [place]IC[place] [facility] [place] [place] [facility] Feb 13, 2024 11:30 AM AMBULATORY - MEDICINE [facility] Feb 15, 2024 09:00 AM [place] [facility] Feb 15, 2024 09:45 AM [place] NONE [place] [facility] Mar 07, 2024 09:00 AM [place] [facility] Mar 08, 2024 08:30 AM [facility] N[facility] [place] [facility] Mar 11, 2024 09:00 AM AMBULATORY - MEDICINE [facility] Active, Pending, and Scheduled Orders This section includes a listing of several types of active, pending, and scheduled orders, including clinic medications orders, diagnostic test orders, procedure orders and consult orders; where the start date of the order is 45 days before the date of the Encounter or 45 days after the date of theEncounter. The data comes from all [facility]. Test Date/Time Test Type Test Details Facility Name Sep 05, 2023 12:00 AM Laboratory - Chemi stry Order OCCULT BLOOD FIT X1 SCREEN(IN-HOUSE) STOOL FECES SP [place] [facility] [place] [place] [facility] Sep 26, 2023 09:55 AM Consult Order [facility] Cons H[employer] Skins Colorer's Choice [facility] Lab Results: +/- 30 days of the encounter This section includes the Chemistry and Hematology Lab Results on record with [place] for the patient. Radiology Reports and Pathology Reports are provided separately, in subsequent sections. Lab Results This section contains the Chemistry/Hematology Results that were resulted 30 days before or 30 daysafter the date of the Encounter. Date/Time Source Result Type Result - Unit Interpretation Reference Range Comment Sep 05, 2023 10:56 AM [facility] FERRITIN Specimen Type: SERUM No comment entered. Ordering Provider: YOAN CHILDS Report Released Date/Time: Sep 05, 2023 10:30 AM Reporting Lab: [facility] [address] [facility] [address] Performing Lab: [address] [address] FERRITIN 25 ng/mL 20-300 Sep 05, 2023 10:56 AM [facility] IRON & TIBC PANEL Specimen Type: SERUM No comment entered. Ordering Provider: YOAN CHILDS Report Released Date/Time: Sep 05, 2023 10:30 AM Reporting Lab: [facility] [address] [facility] [address] Performing Lab: [facility] [address] TIBC 401 ug/dL 204-475 IRON 53 ug/dL 40-160 Transferrin Saturation 13.2 L 20.0-50.0 Sep 05, 2023 10:56 AM [facility] CBC AND DIFF (AUTO) Specimen Type: BLOOD No comment entered. Ordering Provider: YOAN CHILDS Report Released Date/Time: Sep 05, 2023 10:30 AM Reporting Lab: [facility] [address] [facility] [address] Performing Lab: [facility] [address] WBC 5.66 10*3/uL 4.50-11.00 RBC 4.25 10*6/uL 4.23-5.66 HGB 12.1 g/dL L 12.8-17 HCT 35.5 L 39.2-50.4 MCV 83.5 fL 82-99 MCHC 34.1 g/dL 30.8-35.1 PLT 295 10*3/uL 140-360 RDW-CV 12.0 12.0-16.0 Louisa, Abs 0.59 10*3/uL 0.30-1.10 MCH 28.5 pg 26.2-32.6 Neut % 56.3 43.7-75.8 Lymph % 27.2 14.0-42.3 Louisa % 10.4 5.1-13.7 Eos % 4.1 0.4-6.8 Baso % 1.6 0.1-2.0 Neut, Abs 3.19 10*3/uL 2.20-7.60 Lymph, Abs 1.54 10*3/uL 1.00-3.20 Eos, Abs 0.23 10*3/uL 0.03-0.44 Baso, Abs 0.09 10*3/uL 0.01-0.13 Immature Gran % 0.4 0.0-0.7 Immature Gran, Abs 0.02 10*3/uL 0.00-0.06 Sep 01, 2023 10:29 AM [facility] LIPID PANEL FASTING Specimen Type: SERUM No comment entered. Ordering Provider: YULY AUSTIN Report Released Date/Time: Aug 17, 2023 08:25 AM Reporting Lab: [facility] [address] [facility] [address] Performing Lab: [address] [address] CHOLESTEROL 133 mg/dL TRIGLYCERIDE 73 mg/dL 0-150 LDL calculated 75 mg/dL 0-129 CHOL/HDL 3.1 HDL CHOLESTEROL 43 mg/dL 40-60 Sep 01, 2023 10:29 AM [facility] HEMOGLOBIN A1C PANEL Specimen Type: BLOOD Comment: [...] Aug 17, 2023 08:25 AM Reporting [facility] [address] [facility] [address] Performing Lab: [facility] [address] HEMOGLOBIN A1C 6.7 H 4.0-5.6 Sep 01, 2023 10:29 AM [facility] BASIC METABOLIC PANEL (fasting) Specimen Type: SERUM No comment entered. Ordering Provider: YULY AUSTIN Report Released Date/Time: Aug 17, 2023 08:25 AM Reporting Lab: [address] [address] Performing [facility]: [facility] [address] [address] UREA NITROGEN 10 mg/dL 7-25 GLUCOSE 135 mg/dL H 65-100 SODIUM 138 mmol/L 135-145 POTASSIUM 3.9 mmol/L 3.5-5.0 CHLORIDE 101 mmol/L 100-110 CO2 27 meq/L 20-30 CREATININE, Serum 0.73 mg/dL 0.50-1.40 eGFR(CKD-EPI 2020) 90 mL/min >60 Sep 01, 2023 10:29 AM [facility] LIVER FUNCTION Specimen Type: SERUM No comment entered. Ordering Provider: YULY AUSTIN Report Released Date/Time: Aug 17, 2023 08:25 AM Reporting Lab: [address] [address] Performing Lab: [address] [address] PROTEIN,TOTAL 6.9 g/dL 6.0-8.3 ALBUMIN 3.8 g/dL 3.5-5.0 ALKALINE PHOSPHATASE 91 U/L 40-150 AST 14 U/L 5-34 ALT 13 U/L BILIRUBIN, TOTAL 0.5 mg/dL 0.2-1.2 Sep 01, 2023 10:29 AM [facility] MICROALBUMIN CREATININE RATIO PANEL Specimen Type: URINE No comment entered. Ordering Provider: YULY AUSTIN Report Released Date/Time: Aug 17, 2023 08:25 AM Reporting Lab: [facility] [address] [facility] [address] Performing Lab: [facility] [address] [facility] [address] MICROALBUMIN/C REATININE RATIO 9.0 mg/g 0-29.9 MICROALBUMIN,Q UANTITATIVE 1.0 mg/dL RR UNAVAIL CREATININE URINE 110.79 mg/dL Sep 01, 2023 10:29 AM [facility] CBC AND DIFF (AUTO) Specimen Type: BLOOD No comment entered. Ordering Provider: YULY AUSTIN Report Released Date/Time: Aug 17, 2023 08:25 AM Reporting Lab: [facility] [address] [facility] [address] Performing Lab: [address] [address] WBC 8.35 10*3/uL 4.50-11.00 RBC 4.17 10*6/uL L 4.23-5.66 HGB 12.0 g/dL L 12.8-17 HCT 35.3 L 39.2-50.4 MCV 84.7 fL 82-99 MCHC 34.0 g/dL 30.8-35.1 PLT 305 10*3/uL 140-360 RDW-CV 12.3 12.0-16.0 Louisa, Abs 0.71 10*3/uL 0.30-1.10 MCH 28.8 pg 26.2-32.6 Neut % 66.3 43.7-75.8 Lymph % 20.8 14.0-42.3 [place]a % 8.5 5.1-13.7 Eos % 3.0 0.4-6.8 [...] and tobacco- related health factors from the [place] facility where the Encounter took place. Current Smoking Status This section includes the most current smoking, or tobacco-related health factor, from the [place] facility where the Encounter took place. Date/Time Current Smoking Status Comment Facil it Dec 13, 2022 03:00 PM VA-TOBACCO USER EVERY DAY [place] [facility] [facility] Tobacco Use History This section includes a history of the smoking, or tobacco-related health factors, that were collected on or before the date of the Encounter. The data comes from the [place] facility where the Encounter took place. Date/Time Smoking Status/Tobac co Use Comment [facility] Dec 13, 2022 03:00 PM VA-TOBACCO USE 30 YEARS OR MORE [facility] [place] [facility] Dec 13, 2022 03:00 PM VA-TOBACCO USE ADVICE [facility] [place] [facility] Dec 13, 2022 03:00 PM VA-TOBACCO USE NIGHT FILLER NO [facility] [place] [facility] Dec 13, 2022 03:00 PM VA-TOBACCO USE MED NO [facility] [place] [facility] Dec 13, 2022 03:00 PM VA-TOBACCO USER EVERY DAY [facility] [place] [facility] Nov 17, 2021 10:00 AM VA-TOBACCO USE 30 YEARS OR MORE [facility] [place] [facility] Nov 17, 2021 10:00 AM VA-TOBACCO USE ADVICE [facility] [place] [facility] Nov 17, 2021 10:00 AM VA-TOBACCO USE NIGHT FILLER NO [facility] [place] [facility] Nov 17, 2021 10:00 AM VA-TOBACCO USE MED NO [facility] [place] [facility] Nov 17, 2021 10:00 AM VA-TOBACCO USE WI 30 MIN OF WAKEUP [facility] [place] [facility] Nov 17, 2021 10:00 AM VA-TOBACCO USER EVERY DAY [facility] Oct 14, 2013 12:55 PM V1-PT NOT INTERESTED IN QUIT TOBACCO USE [facility] May 07, 2013 05:04 PM CURRENT SMOKER trying to stop [facility] May 07, 2013 05:04 PM V1-PT DECLINES REF TO TOBACCO CESS PRGM [facility] May 07, 2013 05:04 PM V1-PT DECLINES TOBACCO CESSATION MEDS [facility] May 07, 2013 05:04 PM V1-PT READY TO QUIT TOBACCO USE [facility] Dec 03, 2012 08:23 AM V1-PT DECLINES REF TO TOBACCO CESS PRGM [facility] Dec 03, 2012 08:23 AM V1-PT DECLINES TOBACCO CESSATION MEDS [facility] Dec 03, 2012 08:23 AM V1-PT THINKING ABOUT QUIT TOBACCO USE [facility] Jun 05, 2012 08:45 AM CURRENT SMOKER 1/2ppd [facility] Jun 05, 2012 08:45 AM V1-PT DECLINES REF TO TOBACCO CESS PRGM [facility] Jun 05, 2012 08:45 AM V1-PT THINKING ABOUT QUIT TOBACCO USE [facility] Jun 05, 2012 08:45 AM V1-TOBACCO CESS MEDS NOT PRESCRIBED Vet wants to talk to his provider-He is nervous about taking meds to quit- but he is interested in quitting [facility] Nov 25, 2011 09:14 AM V1-PT DECLINES REF TO TOBACCO CESS PRGM [facility] Nov 25, 2011 09:14 AM V1-PT DECLINES TOBACCO CESSATION MEDS [facility] Nov 25, 2011 09:14 AM V1-PT THINKING ABOUT QUIT TOBACCO USE [facility] May 06, 2011 01:02 PM CURRENT SMOKER [facility] May 06, 2011 01:02 PM V1-PT DECLINES TOBACCO CESSATION MEDS [facility] [place] [facility] May 06, 2011 01:02 PM V1-PT NOT INTERESTED IN QUIT TOBACCO USE [facility] [place] [place] [facility] Sep 24, 2010 08:51 AM V1-PT DECLINES TOBACCO CESSATION MEDS [facility] [place] [facility] Sep 24, 2010 08:51 AM V1-PT THINKING ABOUT QUIT TOBACCO USE [facility] [place] [facility] Mar 22, 2010 07:58 AM CURRENT SMOKER 1/2 ppd [facility] [place] [facility] Feb 25, 2009 12:05 PM QUIT TOBACCO USE IN PAST YEAR [facility] [place] [facility] Aug 26, 2008 09:28 AM CURRENT SMOKER 1/2 ppd [facility] [place] [facility] Aug 26, 2008 09:28 AM V1-PT DECLINES REF TO TOBACCO CESS PRGM [facility] [place] [facility] Aug 26, 2008 09:28 AM V1-PT READY TO QUIT TOBACCO USE [facility] [place] [facility] Dec 19, 2007 10:08 AM V1-PT DECLINES REF TO TOBACCO CESS PRGM [facility] [place] [facility] Dec 19, 2007 10:08 AM V1-PT DECLINES TOBACCO CESSATION MEDS [facility] [place] [facility] Dec 19, 2007 10:08 AM V1-PT THINKING ABOUT QUIT TOBACCO USE [facility] [place] [facility] Sep 11, 2007 11:10 AM CURRENT SMOKER [facility] [place] [facility] Sep 11, 2007 11:10 AM V1-PT DECLINES REF TO TOBACCO CESS PRGM [facility] [place] [facility] Sep 11, 2007 11:10 AM V1-PT DECLINES TOBACCO CESSATION MEDS [facility] [place] [facility] Sep 11, 2007 11:10 AM V1-PT THINKING ABOUT QUIT TOBACCO USE [facility] [place] [facility] Feb 13, 2007 01:46 PM V1-PT DECLINES REF TO TOBACCO CESS PRGM [facility] [place] [facility] Feb 13, 2007 01:46 PM V1-PT DECLINES TOBACCO CESSATION MEDS [facility] [place] [facility] Feb 13, 2007 01:46 PM V1-PT THINKING ABOUT QUIT TOBACCO USE [facility] Oct 02, 2006 08:28 AM QUIT TOBACCO USE IN PAST YEAR 3 months ago [facility] Aug 19, 2005 08:33 AM QUIT TOBACCO USE IN PAST YEAR nonsmoker [facility] Sep 21, 2004 09:54 AM CURRENT SMOKER [facility] Sep 07, 2004 08:07 AM CURRENT SMOKER [facility] Sep 15, 2003 11:21 AM CURRENT SMOKER smokes one pk day [facility] Jul 23, 2003 01:57 PM CURRENT SMOKER [facility] Advance Directives: All historical and current Section Date Range: From patient's date of to the date document was created. This section includes ALL of a patient's completed or amended [place] Advance and Rescinded Directives. The entries below indicate that a directive exists for the patient, but an actual copy is not included with this document. The data comes from all [place] facilities. Date Advance Directives Provider Source Apr 10, 2023 ADVANCE DIRECTIVE ESSIE STARK [facility] Apr 19, 2007 ADVANCE DIRECTIVE VICTORIA JOHNSON [facility] Radiology Reports: +/- 30 days [...] the Encounter. The data comes from all [place] treatment facilities. Date/Time Radiology Report Provider Source Sep 26, 2023 08:32 AM SPINE LUMBOSACRAL MIN 2 VIEWS: GUSTAVO ARAMBULA -1940 M Exm Date: SEP 26, 2023@08:32 Req Phys: TRACY CARRILLO Loc: CWM/SO/PACT 7 (Req'g Loc) Img Loc: [facility] 1 Service: Unknown (Case [id number] COMPLETE) SPINE LUMBOSACRAL MIN 2 VIEWS (RAD Detailed) CPT:74574 Reason for Study: lumbar pain Clinical History: 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, fellow, CARE PROCESS MANAGER or attending: Tracy Carrillo NP [place] Pager: [phone] Backup pager: History: chronic lumbar spine pain Report Status: Verified Date Reported: SEP 26, 2023 Date Verified: SEP 26, 2023 Air Director E-Sig:/ES/CHERYLE GUZMAN JR Report: Study: AP, lateral and [...] Primary Interpreting Staff: CHERYLE GUZMAN JR, Radiologist (Air Director) /CHERYLE VALENCIA JR [facility] Sep 26, 2023 08:32 AM HIP 2-3 VIEWS (RIGHT) WITH OR WITHOUT PELVIS: GUSTAVO ARAMBULA CATHERINE -1940 M [facility] Date: SEP 26, 2023@08:32 Req Phys: TRACY CARRILLO Pat Loc: CWM/SO/PACT 7 (Req'g Loc) [facility] Loc: [facility] 1 Service: Unknown (Case [id number] COMPLETE) HIP 2-3 VIEWS (RIGHT) WITH OR WIT(RAD Detailed) CPT:05210 CPT Modifiers : RT RIGHT SIDE Reason for Study: hip pain Clinical History: 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, fellow, CARE PROCESS MANAGER or attending: Tracy Carrillo NP [place] Pager: [phone] Backup pager: History: chronic right hip pain, hx CAROL ANN Report Status: Verified Date Reported: SEP 26, 2023 Date Verified: SEP 26, 2023 Air Director E-Sig:/ES/CHERYLE GUZMAN JR Report: Study: AP view [...] Primary Interpreting Staff: CHERYLE GUZMAN JR, Radiologist (Air Director) /CHERYLE VALENCIA JR [facility] Sep 05, 2023 11:05 AM HIP 2-3 VIEWS(LEFT) WITH OR WITHOUT PELVIS: GUSTAVO ARAMBULA -1940 M Exm Date: SEP 05, 2023@11:05 Req Phys: DANIELE CHILDS Pat Loc: CWM/NO/PACT/FIRM CARE PROCESS MANAGER (Req'g Loc Img Loc: [facility] 1 Service: Unknown (Case 18 COMPLETE) HIP 2-3 VIEWS(LEFT) WITH OR WITHO(RAD Detailed) CPT:45175 Proc Modifiers : LEFT CPT Modifiers : LT LEFT SIDE Reason for Study: chronic left hip pain Clinical History: Report Status: Verified Date Reported: SEP 05, 2023 Date Verified: SEP 05, 2023 Air Director E-Sig:/ES/CHERYLE GUZMAN JR Report: Study: AP view [...] Primary Interpreting Staff: CHERYLE GUZMAN JR, Radiologist (Air Director) /CHERYLE VALENCIA JR [facility] Encounter Notes: All associated encounter notes This section contains the clinical notes associated to the Encounter. Date/Time Encounter Note(s) Provider Source Sep 27, 2023 03:24 PM ADDENDUM: LOCAL TITLE: Addendum STANDARD TITLE: ADDENDUM DATE OF NOTE: SEP 27, 2023@15:24:41 ENTRY DATE: SEP 27, 2023@15:24:42 AUTHOR: SAPPHIRE MEREDITH COSIGNER: URGENCY: STATUS: COMPLETED forward to AMSA who attempt to contact PT /reginaldo/ Sapphire Meredith ADVANCED RUBBER LINER Signed: 09/27/2023 15:25 Receipt Acknowledged By: 09/28/2023 08:28 /reginaldo/ SHANEKA ANGEL AMSJason --- Original Document --- 09/27/23 CCC: SCHEDULING ADMINISTRATION: Patient Demographics Patient Name: GUSTAVO ARAMBULA Patient Primary Phone: [phone] Patient Primary Address: [address] [place] [address] Patient : 1940 Patient Age: 82 Current Location: [facility] Call Back Number: Caller/Recipient Relation to Patient: Self Administrative Administrative Note Reason: Other Administrative Note Comments: stated that he is returning missed call from [employer] [place] also stated that he received the message and he will pick pulling machine tender the form tomorrow afternoon at the primary care clinic on ''[address] /es/ JASMIN RAZA [id number] Signed: 09/27/2023 15:07 Receipt Acknowledged By: 09/27/2023 15:52 /reginaldo/ MARCUS DOZIER LPN LPN 09/27/2023 15:24 /chavez Meredith ADVANCED RUBBER LINER 09/27/2023 15:41 /es/ KAPIL COLLIER,RN-BC REGISTERED NURSE (RN) 09/27/2023 ADDENDUM STATUS: COMPLETED Noted, Medical consult placed in lead front end developer file cabinet for pick pulling machine tender. /reginaldo/ SHANEKA ANGEL AMSA Signed: 09/27/2023 15:59 SAPPHIRE MEREDITH [facility] [place] [facility] Sep 27, 2023 03:07 PM ADMINISTRATIVE NOT E: LOCAL TITLE: CCC: SCHEDULING ADMINISTRATION STANDARD TITLE: ADMINISTRATIVE NOTE DATE OF NOTE: SEP 27, 2023@15:07:28 ENTRY DATE: SEP 27, 2023@15:07:28 AUTHOR: JASMIN RAZA COSIGNER: URGENCY: STATUS: COMPLETED CCC: SCHEDULING ADMINISTRATION Has ADDENDA Patient Demographics Patient Name: GUSTAVO ARAMBULA Patient Primary Phone: [phone] Patient Primary Address: [address] [place] [address] Patient : 1940 Patient Age: 82 Current Location: [facility] Call Back Number: Caller/Recipient Relation to Patient: Self Administrative Administrative Note Reason: Other Administrative Note Comments: [place] stated that he is returning missed call from [employer]. also stated that he received the message and he will pick pulling machine tender the form tomorrow afternoon at the primary care clinic on ''[facility] /reginaldo/ JASMIN RAZA [id number] Signed: 09/27/2023 15:07 Receipt Acknowledged By: 09/27/2023 15:52 /es/ MARCUS DOZIER LPN LPN 09/27/2023 15:24 /reginaldo/ Sapphire Meredith ADVANCED RUBBER LINER 09/27/2023 15:41 /reginaldo/ KAPIL COLLIER,RN-BC REGISTERED NURSE (RN) 09/27/2023 ADDENDUM STATUS: COMPLETED forward to AMSA who attempt to contact PT /reginaldo/ Sapphire Meredith ADVANCED RUBBER LINER Signed: 09/27/2023 15:25 Receipt Acknowledged By: * AWAITING SIGNATURE * SHANEKA ANGEL 09/27/2023 ADDENDUM STATUS: COMPLETED Noted, Medical consult placed in lead front end developer file cabinet for pick pulling machine tender. /reginaldo/ SHANEKA ANGEL AMSA Signed: 09/27/2023 15:59 JASMIN RAZA [facility]L [place] [facility]
--- OUTSIDE RECORDS SUMMARY | 2024-08-16 09:30 | XMS_ITS | Encounter Summary ---
Author Name [facility] [place] [facility] [place] Address [address] [place] [address] Care Team Providers Care Legal Intern Name Role Phone TRACY CARRILLO Primary Care [...] PHI MEDEX BRONZ E December 19, 2013 [id number] [phone] GUSTAVO ARAMBULA SR PATIENT [employer] MEDICARE SUPPLEMEN PHI MEDIC ARE SUPPL EMENT Jul 21, 2007 NONE [id number] Edgar ARAMBULA PATIENT [place] MED[place] SUPPLEMEN PHI MEDEX BRONZ E December 19, 2013 [id number] GUSTAVO ARAMBULA SR PATIENT [place] MEDICARE SUPPLEMEN PHI MEDEX BRONZ E December 19, 2013 [id number] Edgar ARAMBULA PATIENT MEDICARE (WNR) MEDICARE (M) PART A Oct 19, 2004 PART A [id number] Edgar ARAMBULAN PATIENT MEDICARE (WNR) MEDICARE (M) PART B Oct 19, 2004 PART B [id number] Edgar ARAMBULAN PATIENT MEDICARE (WNR) MEDICARE (M) PART A Oct 19, 2004 PART A [id number] Egdar ARAMBULAN PATIENT MEDICARE (WNR) MEDICARE (M) PART B Oct 19, 2004 PART B [id number] Edgar ARAMBULAN PATIENT MEDICARE (WNR) MEDICARE (M) PART A Oct 19, 2004 PART A [id number] Edgar ARAMBULAN PATIENT MEDICARE (WNR) MEDICARE (M) PART B Oct 19, 2004 PART B [id number] Edgar ARAMBULA PATIENT MEDICARE (WNR) MEDICARE () PART A Oct 19, 2004 PART A [id number] [phone] Edgar ARAMBULA PATIENT MEDICARE (WNR) MEDICARE (M) PART B Oct 19, 2004 PART B [id number] Edgar ARAMBULAN PATIENT MEDICARE (WNR) MEDICARE () PART A Oct 19, 2004 PART A [id number] Edgar ARAMBULA PATIENT MEDICARE (WNR) MEDICARE () PART B Oct 19, 2004 PART B [id number] Edgar ARAMBULA PATIENT Selected Encounter This section includes the information on record at [place] for the Encounter. Date/Time Encounter Type Encounter Description Reason Pro vider Source Sep 19, 2023 08:38 AM Outpatient Encounter NEUROLOGY IHE Encounter Template Text not used by [...] 20 appointments. The data comes from all [facility]. Appointment Date/Time Appointment Type Appointme nt Facility Name Sep 25, 2023 10:30 AM AMBULATORY - MEDICINE [facility] Sep 26, 2023 08:27 AM AMBULATORY - NONE [facility] [place] [facility] Sep 26, 2023 12:00 PM AMBULATORY [place]ICINE [place] [facility] [place] [facility] Oct 16, 2023 09:00 AM [place] [facility] [place] [facility] Nov 06, 2023 09:30 AM AM[place]ULATORY [place]ICINE [place] [facility] [place] [facility] December 21, 2023 09:00 AM AMBULATORY [place]CHIATRY [place] [facility] [place] [facility] December 25, 2023 09:00 AM [facility]ICINE [facility] Feb 05, 2024 10:00 AM [place]ICINE [place] [facility] [facility] Feb 13, 2024 11:30 AM [facility]ATORY - [facility]ICINE [facility] Feb 15, 2024 09:00 AM AMBULATORY [place]IATRY [place] [facility] [place] [facility] Feb 15, 2024 09:45 AM AMBULATORY - NONE [place] [facility] [place] [facility] Mar 07, 2024 09:00 AM AMBULATORY - PS[place]IATRY [place] [facility] [place] [facility] Mar 08, 2024 08:30 AM AMBULATORY - NONE [place] [facility] [place] [facility] Mar 11, 2024 09:00 AM AMBULATORY - MEDICINE [facility] Active, Pending, and Scheduled Orders This section includes a listing of several types of active, pending, and scheduled orders, including clinic medications orders, diagnostic test orders, procedure orders and consult orders; where the start date of the order is 45 days before the date of the Encounter or 45 days after the date of theEncounter. The data comes from all [facility]. Test Date/Time Test Type Test Details Facility Name Sep 05, 2023 12:00 AM Laboratory - Chemi stry Order OCCULT BLOOD FIT X1 SCREEN(IN-HOUSE) STOOL FECES SP [facility] [place] [facility] Sep 26, 2023 09:55 AM Consult Order [facility] Cons Well T[facility] Lab Results: +/- 30 days of the encounter This section includes the Chemistry and Hematology Lab Results on record with [place] for the patient. Radiology Reports and Pathology Reports are provided separately, in subsequent sections. Lab Results This section contains the Chemistry/Hematology Results that were resulted 30 days before or 30 daysafter the date of the Encounter. Date/Time Source Result Type Result - Unit Interpretation Reference Range Comment Sep 05, 2023 10:56 AM [facility] FERR[facility] Specimen Type: SERUM No comment entered. Ordering Provider: YOAN CHILDS Report Released Date/Time: Sep 05, 2023 10:30 AM Reporting Lab: [facility] [address] Performing Lab: [facility] [address] FERRITIN 25 ng/mL 20-300 Sep 05, 2023 10:56 AM [facility] IRON & TIBC PANEL Specimen Type: SERUM No comment entered. Ordering Provider: YOAN CHILDS Report Released Date/Time: Sep 05, 2023 10:30 AM Reporting Lab: [facility] [address] Performing Lab: [facility] [address] TIBC 401 ug/dL 204-475 IRON 53 ug/dL 40-160 Transferrin Saturation 13.2 L 20.0-50.0 Sep 05, 2023 10:56 AM [facility] CBC AND DIFF (AUTO) Specimen Type: BLOOD No comment entered. Ordering Provider: YOAN CHILDS Report Released Date/Time: Sep 05, 2023 10:30 AM Reporting Lab: [facility] [address] Performing Lab: [facility] [address] [address] WBC 5.66 10*3/uL 4.50-11.00 RBC 4.25 10*6/uL 4.23-5.66 HGB 12.1 g/dL L 12.8-17 HCT 35.5 L 39.2-50.4 MCV 83.5 fL 82-99 MCHC 34.1 g/dL 30.8-35.1 PLT 295 10*3/uL 140-360 RDW-CV 12.0 12.0-16.0 [place], Abs 0.59 10*3/uL 0.30-1.10 MCH 28.5 pg 26.2-32.6 Neut % 56.3 43.7-75.8 Lymph % 27.2 14.0-42.3 [place] % 10.4 5.1-13.7 Eos % 4.1 0.4-6.8 Baso % 1.6 0.1-2.0 Neut, Abs 3.19 10*3/uL 2.20-7.60 Lymph, Abs 1.54 10*3/uL 1.00-3.20 Eos, Abs 0.23 10*3/uL 0.03-0.44 Baso, Abs 0.09 10*3/uL 0.01-0.13 Immature Gran % 0.4 0.0-0.7 Immature Gran, Abs 0.02 10*3/uL 0.00-0.06 Sep 01, 2023 10:29 AM [facility] LIPID PANEL FASTING Specimen Type: SERUM No comment entered. Ordering Provider: YULY AUSTIN Report Released Date/Time: Aug 17, 2023 08:25 AM Reporting Lab: [facility] [address] [facility] [address] Performing Lab: [address] [address] CHOLESTEROL 133 mg/dL TRIGLYCERIDE 73 mg/dL 0-150 LDL calculated 75 mg/dL 0-129 CHOL/HDL 3.1 HDL CHOLESTEROL 43 mg/dL 40-60 Sep 01, 2023 10:29 AM [facility] BASIC METABOLIC PANEL (fasting) Specimen Type: SERUM No comment entered. Ordering Provider: YULY AUSTIN Report Released Date/Time: Aug 17, 2023 08:25 AM Reporting Lab: [facility] [address] [facility] [address] Performing Lab: [facility] [address] [facility] [address] UREA NITROGEN 10 mg/dL 7-25 GLUCOSE 135 mg/dL H 65-100 SODIUM 138 mmol/L 135-145 POTASSIUM 3.9 mmol/L 3.5-5.0 CHLORIDE 101 mmol/L 100-110 CO2 27 meq/L 20-30 CREATININE, Serum 0.73 mg/dL 0.50-1.40 eGFR(CKD-EPI 2020) 90 mL/min >60 Sep 01, 2023 10:29 AM [facility] HEMOGLOBIN A1C PANEL Specimen Type: BLOOD Comment: [...] Aug 17, 2023 08:25 AM Reporting Lab: [facility] [address] [facility] [address] Performing Lab: [address] [address] HEMOGLOBIN A1C 6.7 H 4.0-5.6 Sep 01, 2023 10:29 AM [facility] LIVER FUNCTION Specimen Type: SERUM No comment entered. Ordering Provider: YULY AUSTIN Report Released Date/Time: Aug 17, 2023 08:25 AM Reporting Lab: [facility] [address] [facility] [address] Performing Lab: [address] [address] PROTEIN,TOTAL 6.9 g/dL 6.0-8.3 ALBUMIN 3.8 g/dL 3.5-5.0 ALKALINE PHOSPHATASE 91 U/L 40-150 AST 14 U/L 5-34 ALT 13 U/L BILIRUBIN, TOTAL 0.5 mg/dL 0.2-1.2 Sep 01, 2023 10:29 AM [facility] MICROALBUMIN CREATININE RATIO PANEL Specimen Type: URINE No comment entered. Ordering Provider: YULY AUSTIN Report Released Date/Time: Aug 17, 2023 08:25 AM Reporting Lab: [facility] [address] [facility] [address] Performing Lab: [facility] [address] [facility] [address] MICROALBUMIN/C REATININE RATIO 9.0 mg/g 0-29.9 MICROALBUMIN,Q UANTITATIVE 1.0 mg/dL RR UNAVAIL CREATININE URINE 110.79 mg/dL Sep 01, 2023 10:29 AM [facility] CBC AND DIFF (AUTO) Specimen Type: BLOOD No comment entered. Ordering Provider: YULY AUSTIN Report Released Date/Time: Aug 17, 2023 08:25 AM Reporting Lab: [facility] [address] [facility] [address] Performing Lab: [address] [address] WBC 8.35 10*3/uL 4.50-11.00 RBC 4.17 10*6/uL L 4.23-5.66 HGB 12.0 g/dL L 12.8-17 HCT 35.3 L 39.2-50.4 MCV 84.7 fL 82-99 MCHC 34.0 g/dL 30.8-35.1 PLT 305 10*3/uL 140-360 RDW-CV 12.3 12.0-16.0 [place], Abs 0.71 10*3/uL 0.30-1.10 MCH 28.8 pg 26.2-32.6 Neut % 66.3 43.7-75.8 Lymph % 20.8 14.0-42.3 [place] % 8.5 5.1-13.7 Eos % 3.0 0.4-6.8 [...] took place. Date/Time Current Smoking Status Comment [facility] Dec 13, 2022 03:00 PM VA-TOBACCO USER EVERY DAY [place] [facility] [place] [facility] Tobacco Use History This section includes a history of the smoking, or tobacco-related health factors, that were collected on or before the date of the Encounter. The data comes from the [place] facility where the Encounter took place. 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 [facility] [place] [facility] Dec 13, 2022 03:00 PM VA-TOBACCO USE MED NO [facility] [place] [facility] Dec 13, 2022 03:00 PM VA-TOBACCO USER EVERY DAY [facility] [place] [facility] Nov 17, 2021 10:00 AM VA-TOBACCO USE 30 YEARS OR MORE [facility] [place] [facility] Nov 17, 2021 10:00 AM VA-TOBACCO USE ADVICE [facility] [place] [facility] Nov 17, 2021 10:00 AM VA-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 USE 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 [facility] [place] [facility] Nov 17, 2021 10:00 AM VA-TOBACCO USE MED NO [facility] [place] [facility] Nov 17, 2021 10:00 AM VA-TOBACCO USE WI 30 MIN OF WAKEUP [facility] Nov 17, 2021 10:00 AM VA-TOBACCO USER EVERY DAY [facility] Oct 14, 2013 12:55 PM V1-PT NOT INTERESTED IN QUIT TOBACCO USE [facility] May 07, 2013 05:04 PM CURRENT SMOKER trying to stop [facility] May 07, 2013 05:04 PM V1-PT DECLINES REF TO TOBACCO CESS PRGM [facility] May 07, 2013 05:04 PM V1-PT DECLINES TOBACCO CESSATION MEDS [facility] May 07, 2013 05:04 PM V1-PT READY TO QUIT TOBACCO USE [facility] Dec 03, 2012 08:23 AM V1-PT DECLINES REF TO TOBACCO CESS PRGM [facility] Dec 03, 2012 08:23 AM V1-PT DECLINES TOBACCO CESSATION MEDS [facility] Dec 03, 2012 08:23 AM V1-PT THINKING ABOUT QUIT TOBACCO USE [facility] Jun 05, 2012 08:45 AM CURRENT SMOKER 1/2ppd [facility] Jun 05, 2012 08:45 AM V1-PT DECLINES REF TO TOBACCO CESS PRGM [facility] Jun 05, 2012 08:45 AM V1-PT THINKING ABOUT QUIT TOBACCO USE [facility] Jun 05, 2012 08:45 AM V1-TOBACCO CESS MEDS NOT PRESCRIBED Vet wants to talk to his provider-He is nervous about taking meds to quit- but he is interested in quitting [facility] Nov 25, 2011 09:14 AM V1-PT DECLINES REF TO TOBACCO CESS PRGM [facility] Nov 25, 2011 09:14 AM V1-PT DECLINES TOBACCO CESSATION MEDS [facility] Nov 25, 2011 09:14 AM V1-PT THINKING ABOUT QUIT TOBACCO USE [facility] [place] [facility] May 06, 2011 01:02 PM CURRENT SMOKER [facility] [place] [facility] May 06, 2011 01:02 PM V1-PT DECLINES TOBACCO CESSATION MEDS [facility] [place] [facility] May 06, 2011 01:02 PM V1-PT NOT INTERESTED IN QUIT TOBACCO USE [facility] [place] [facility] Sep 24, 2010 08:51 AM V1-PT DECLINES TOBACCO CESSATION MEDS [facility] [place] [facility] Sep 24, 2010 08:51 AM V1-PT THINKING ABOUT QUIT TOBACCO USE [facility] [place] [facility] Mar 22, 2010 07:58 AM CURRENT SMOKER 1/2 ppd [facility] [place] [facility] Feb 25, 2009 12:05 PM QUIT TOBACCO USE IN PAST YEAR [facility] [place] [facility] Aug 26, 2008 09:28 AM CURRENT SMOKER 1/2 ppd [facility] [place] [facility] Aug 26, 2008 09:28 AM V1-PT DECLINES REF TO TOBACCO CESS PRGM [facility] [place] [facility] Aug 26, 2008 09:28 AM V1-PT READY TO QUIT TOBACCO USE [facility] [place] [facility] Dec 19, 2007 10:08 AM V1-PT DECLINES REF TO TOBACCO CESS PRGM [facility] [place] [facility] Dec 19, 2007 10:08 AM V1-PT DECLINES [facility]ACCO [facility] [place] [facility] Dec 19, 2007 10:08 AM V1-PT THINKING ABOUT QUIT TOBACCO USE [facility] [place] [facility] Sep 11, 2007 11:10 AM CURRENT SMOKER [facility] [place] [facility] Sep 11, 2007 11:10 AM V1-PT DECLINES REF TO TOBACCO CESS PRGM [facility] [place] [facility] Sep 11, 2007 11:10 AM V1-PT DECLINES TOBACCO CESSATION MEDS [facility] [place] [facility] Sep 11, 2007 11:10 AM V1-PT THINKING ABOUT QUIT TOBACCO USE [facility] [place] [facility] Feb 13, 2007 01:46 PM V1-PT DECLINES REF TO TOBACCO CESS PRGM [facility] [place] [facility] Feb 13, 2007 01:46 PM V1-PT DECLINES TOBACCO CESSATION MEDS [facility] Feb 13, 2007 01:46 PM V1-PT THINKING ABOUT QUIT TOBACCO USE [facility] Oct 02, 2006 08:28 AM QUIT TOBACCO USE IN PAST YEAR 3 months ago [facility] Aug 19, 2005 08:33 AM QUIT TOBACCO USE IN PAST YEAR nonsmoker [facility] Sep 21, 2004 09:54 AM CURRENT SMOKER [facility] Sep 07, 2004 08:07 AM CURRENT SMOKER [facility] Sep 15, 2003 11:21 AM CURRENT SMOKER smokes one pk day [facility] Jul 23, 2003 01:57 PM CURRENT SMOKER [facility] Advance Directives: All historical and current Section [...] Apr 10, 2023 ADVANCE DIRECTIVE CARLOSESSIE STUBBS [facility] RADHA [facility] Apr 19, 2007 ADVANCE DIRECTIVE VICTORIA [facility]NS[facility] Radiology Reports: +/- 30 days of [...] the Encounter. The data comes from all [place] treatment facilities. 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 or attending: Tracy Carrillo NP [place] Pager: [phone] Backup pager: History: chronic lumbar spine pain Report Status: Verified Date Reported: SEP 26, 2023 Date Verified: SEP 26, 2023 Knife Machine Operator E-Sig:/ES/CHERYLE GUZMAN JR Report: Study: AP, lateral [...] Primary Interpreting Staff: CHERYLE GUZMAN JR, Radiologist (Knife Machine Operator) /CHERYLE VALENCIA JR [place] [facility] Sep 26, 2023 08:32 AM HIP 2-3 VIEWS (RIGHT) WITH OR WITHOUT PELVIS: GUSTAVO ARAMBULA CATHERINE -1940 M Ex Date: SEP 26, 2023@08:32 Req Phys: TRACY CARRILLO Pat Loc: CWM/SO/PACT 7 (Req'g Loc) Img Loc: [facility] 1 Service: Unknown (Case [id number] COMPLETE) HIP 2-3 VIEWS (RIGHT) WITH OR WIT(RAD Detailed) CPT:16118 CPT Modifiers : RT RIGHT SIDE Reason for Study: hip pain Clinical History: 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, fellow, LENS CUTTER or attending: Tracy Carrillo NP [place] Pager: [phone] Backup pager: History: chronic right hip pain, hx CAROL ANN Report Status: Verified Date Reported: SEP 26, 2023 Date Verified: SEP 26, 2023 Knife Machine Operator E-Sig:/ES/CHERYLE GUZMAN JR Report: Study: AP view [...] Primary Interpreting Staff: CHERYLE GUZMAN JR, Radiologist (Knife Machine Operator) /CHERYLE VALENCIA JR [place] [facility] [facility] Sep 05, 2023 11:05 AM HIP 2-3 VIEWS(LEFT) WITH OR WITHOUT PELVIS: GUSTAVO ARAMBULA -1940 M [facility] Date: SEP 05, 2023@11:05 Req Phys: DANIELE CHILDS Pat Loc: CWM/NO/PACT/FIRM LENS CUTTER (Req'g Loc Img Loc: [facility] 1 Service: Unknown (Case 18 COMPLETE) HIP 2-3 VIEWS(LEFT) WITH OR WITHO(RAD Detailed) CPT:28297 Proc Modifiers : LEFT CPT Modifiers : LT LEFT SIDE Reason for Study: chronic left hip pain Clinical History: Report Status: Verified Date Reported: SEP 05, 2023 Date Verified: SEP 05, 2023 Knife Machine Operator E-Sig:/ES/CHERYLE GUZMAN JR Report: Study: AP view [...] Primary Interpreting Staff: CHERYLE GUZMAN JR, Radiologist (Knife Machine Operator) /CHERYLE VALENCIA JR [facility] Encounter Notes: All associated encounter notes This section contains the clinical notes associated to the Encounter. Date/Time Encounter Note(s) Provider Source Sep 19, 2023 08:38 AM ADMINISTRATIVE NOT E: LOCAL TITLE: ADMINISTRATIVE NOTE STANDARD TITLE: ADMINISTRATIVE NOTE DATE OF NOTE: SEP 19, 2023@08:38 ENTRY DATE: SEP 19, 2023@08:38:37 AUTHOR: ANTELMO LUO EXP COSIGNER: URGENCY: STATUS: COMPLETED rtc, pid 12/01/2023 has been dispositioned , no longer needed. 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
--- OUTSIDE RECORDS SUMMARY | 2024-08-16 09:30 | XMS_ITS | Encounter Summary ---
Author Name [facility] [place] [facility] [place] Address [address] [place] [address] Care Team Providers Care Facilities Assistant Name Role Phone TRACY CARRILLO Primary [...] PHI MEDEX BRONZ E December 19, 2013 [id number] [phone] GUSTAVO ARAMBULA SR PATIENT [employer] MEDICARE SUPPLEMEN PHI MEDIC ARE SUPPL EMENT Jul 21, 2007 NONE [id number] Edgar ARAMBULA [place] SUPPLEMEN PHI MEDEX BRONZ E December 19, 2013 [id number] GUSTAVO ARAMBULA SR PATIENT [place] MEDICARE SUPPLEMEN PHI MEDEX BRONZ E December 19, 2013 [id number] Edgar ARAMBULA [place] PATIENT MEDICARE (WNR) MEDICARE (M) PART A Oct 19, 2004 PART A [id number] [id number] Edgar ARAMBULA [place] PATIENT MEDICARE ([place]NR) MEDICARE (M) PART B Oct 19, 2004 PART B [id number] [phone] Edgar ARAMBULA [place] PATIENT MEDICARE ([place]NR) MEDICARE (M) PART A Oct 19, 2004 PART A [id number] Edgar ARAMBULA [place] PAT[place] MEDICARE ([place]) MEDICARE (M) PART B Oct 19, 2004 PART B [id number] [phone] [id number] Edgar ARAMBULA [place] PATIENT MEDICARE ([place]NR) MEDICARE (M) PART A Oct 19, 2004 PART A [id number] Edgar ARAMBULA [place] PATIENT MEDICARE ([place]) MEDICARE (M) PART B Oct 19, 2004 PART B [id number] Edgar ARAMBULA [place] PATIENT MEDICARE ([place]NR) MEDICARE () PART A Oct 19, 2004 PART A [id number] Edgar ARAMBULA [place] PAT[place] MEDICARE ([place]) MEDICARE () PART B Oct 19, 2004 PART B [id number] [phone] Edgar ARAMBULA [place] PAT[place]ICARE ([place]) MEDICARE () PART A Oct 19, 2004 PART A [id number] Edgar ARAMBULAN PATIENT MEDICARE (WNR) MEDICARE (M) PART B Oct 19, 2004 PART B [id number] [phone] Edgar ARAMBULAN PATIENT Selected Encounter This section includes the information on record at [place] for the Encounter. 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 Date/Time Primary/Secondary Diagnosis Diagnosis Name Provider Source Sep 25, 2023 07:50 PM PRIMARY Other unilateral secondary osteoarthritis of hip KAYTRACY Dannie [place] Sep 25, 2023 07:50 PM SECONDARY Drug induced constipation [place]AYTRACY [place] Sep 25, 2023 07:50 PM SECONDARY Nausea [place]AYTRACY [place] Sep 25, 2023 07:50 PM SECONDARY Other intervertebral disc disorders, lumbar region KAYTRACY [place] Sep 25, 2023 07:50 PM SECONDARY Presence of right artificial hip joint TRACY CARRILLO [place] Plan of Treatment: Future Appointments (+ 6 months) and Future Tests (+/- 45 days) The Plan of Treatment section includes future care activities for the patient from all [place] treatmentfacilities. This section includes future appointments and future orders which are active, pending or scheduled. Future Appointments This section includes appointments that were scheduled to occur 6 months from the date of the Encounter, up to a maximum of 20 appointments. The data comes from all [place] treatment facilities. Appointment Date/Time Appointment Type Appointme nt Facility Name Sep 26, 2023 08:27 AM AM[facility]ULATORY [facility] NONE [facility] [place] [facility] Sep 26, 2023 12:00 PM AMBULATORY - MEDICINE [facility] [place] [facility] Oct 16, 2023 09:00 AM AMBULATORY - MEDICINE [facility] [place] [facility] Nov 06, 2023 09:30 AM AMBULATORY - MEDICINE [facility] [place] [facility] December 21, 2023 09:00 AM AMBULATORY - PSYCHIATRY [facility] [place] [facility] December 25, 2023 09:00 AM AM[facility]ATORY - MEDICINE [facility] Feb 05, 2024 10:00 AM AMBULATORY - MEDICINE [facility] [place] [facility] Feb 13, 2024 11:30 AM AMBULATORY - MEDICINE [facility] Feb 15, 2024 09:00 AM AMBULATORY - PSYCHIATRY [facility] [place] [facility] Feb 15, 2024 09:45 AM AMBULATORY - NONE [facility] [place] [facility] Mar 07, 2024 09:00 AM AMBULATORY - PSYCHIATRY [facility] [place] [facility] Mar 08, 2024 08:30 AM AMBULATORY - NONE [facility] [place] [facility] Mar 11, 2024 09:00 AM AMBULATORY - MEDICINE [facility] Active, Pending, and Scheduled Orders This section includes a listing of several types of active, pending, and scheduled orders, including clinic medications orders, diagnostic test orders, procedure orders and consult orders; where the start date of the order is 45 days before the date of the Encounter or 45 days after the date of theEncounter. The data comes from all [place] treatment facilities. Test Date/Time Test Type Test Details Facility Name Sep 05, 2023 12:00 AM Laboratory - Chemi stry Order OCCULT BLOOD FIT X1 SCREEN(IN-HOUSE) STOOL FECES SP [facility] [place] [facility] Sep 26, 2023 09:55 AM Consult Order [facility] Lab Results: +/- 30 days of the encounter This section includes the Chemistry and Hematology Lab Results on record with [place] for the patient. Radiology Reports and Pathology Reports are provided separately, in subsequent sections. Lab Results This section contains the Chemistry/Hematology Results that were resulted 30 days before or 30 daysafter the date of the Encounter. Date/Time Source Result Type Result - Unit Interpretation Reference Range Comment Sep 05, 2023 10:56 AM [facility] FERRITIN Specimen Type: SERUM No comment entered. Ordering Provider: YOAN CHILDS Report Released Date/Time: Sep 05, 2023 10:30 AM Reporting Lab: [facility] [address] [facility] [address] Performing Lab: [facility] [address] [address] FERRITIN 25 ng/mL 20-300 Sep 05, 2023 10:56 AM [facility] IRON & TIBC PANEL Specimen Type: SERUM No comment entered. Ordering Provider: YOAN CHILDS Report Released Date/Time: Sep 05, 2023 10:30 AM Reporting Lab: [facility] [address] [facility] [address] Performing Lab: [facility]USE[address] [address] TIBC 401 ug/dL 204-475 IRON 53 ug/dL 40-160 Transferrin Saturation 13.2 L 20.0-50.0 Sep 05, 2023 10:56 AM [facility] CBC AND DIFF (AUTO) Specimen Type: BLOOD No comment entered. Ordering Provider: YOAN CHILDS Report Released Date/Time: Sep 05, 2023 10:30 AM Reporting Lab: [facility] [address] [facility] [address] Performing Lab: [facility] [address] [address] WBC 5.66 10*3/uL 4.50-11.00 RBC 4.25 10*6/uL 4.23-5.66 HGB 12.1 g/dL L 12.8-17 HCT 35.5 L 39.2-50.4 MCV 83.5 fL 82-99 MCHC 34.1 g/dL 30.8-35.1 PLT 295 10*3/uL 140-360 RDW-CV 12.0 12.0-16.0 Kent, Abs 0.59 10*3/uL 0.30-1.10 MCH 28.5 pg 26.2-32.6 Neut % 56.3 43.7-75.8 Lymph % 27.2 14.0-42.3 Kent % 10.4 5.1-13.7 Eos % 4.1 0.4-6.8 Baso % 1.6 0.1-2.0 Neut, Abs 3.19 10*3/uL 2.20-7.60 Lymph, Abs 1.54 10*3/uL 1.00-3.20 Eos, Abs 0.23 10*3/uL 0.03-0.44 Baso, Abs 0.09 10*3/uL 0.01-0.13 Immature Gran % 0.4 0.0-0.7 Immature Gran, Abs 0.02 10*3/uL 0.00-0.06 Sep 01, 2023 10:29 AM [facility] LIPID PANEL FASTING Specimen Type: SERUM No comment entered. Ordering Provider: YULY AUSTIN Report Released Date/Time: Aug 17, 2023 08:25 AM Reporting Lab: [facility] [address] [facility] [address] Performing Lab: [facility] [address] [address] CHOLESTEROL 133 mg/dL TRIGLYCERIDE 73 mg/dL 0-150 LDL calculated 75 mg/dL 0-129 CHOL/HDL 3.1 HDL CHOLESTEROL 43 mg/dL 40-60 Sep 01, 2023 10:29 AM [facility] BASIC METABOLIC PANEL (fasting) Specimen Type: SERUM No comment entered. Ordering Provider: YULY AUSTIN Report Released Date/Time: Aug 17, 2023 08:25 AM Reporting Lab: [facility] [address] [facility] [address] Performing Lab: [address] [address] UREA NITROGEN 10 mg/dL 7-25 GLUCOSE 135 mg/dL H 65-100 SODIUM 138 mmol/L 135-145 POTASSIUM 3.9 mmol/L 3.5-5.0 CHLORIDE 101 mmol/L 100-110 CO2 27 meq/L 20-30 CREATININE, Serum 0.73 mg/dL 0.50-1.40 eGFR(CKD-EPI 2020) 90 mL/min >60 Sep 01, 2023 10:29 AM [facility] HEMOGLOBIN A1C PANEL Specimen Type: BLOOD [...] Aug 17, 2023 08:25 AM Reporting Lab: [facility] [address] [facility] [address] Performing Lab: [address] [address] HEMOGLOBIN A1C 6.7 H 4.0-5.6 Sep 01, 2023 10:29 AM [facility] LIVER FUNCTION Specimen Type: SERUM No comment entered. Ordering Provider: YULY AUSTIN Report Released Date/Time: Aug 17, 2023 08:25 AM Reporting Lab: [facility] [address] [facility] [address] Performing Lab: [facility] [address] [facility] [address] PROTEIN,TOTAL 6.9 g/dL 6.0-8.3 ALBUMIN 3.8 g/dL 3.5-5.0 ALKALINE PHOSPHATASE 91 U/L 40-150 AST 14 U/L 5-34 ALT 13 U/L BILIRUBIN, TOTAL 0.5 mg/dL 0.2-1.2 Sep 01, 2023 10:29 AM [facility] MICROALBUMIN CREATININE RATIO PANEL Specimen Type: URINE No comment entered. Ordering Provider: YULY AUSTIN Report Released Date/Time: Aug 17, 2023 08:25 AM Reporting Lab: [facility] [address] [facility] [address] Performing Lab: [facility] [address] [facility] [address] MICROALBUMIN/C REATININE RATIO 9.0 mg/g 0-29.9 MICROALBUMIN,Q UANTITATIVE 1.0 mg/dL RR UNAVAIL CREATININE URINE 110.79 mg/dL Sep 01, 2023 10:29 AM [facility] CBC AND DIFF (AUTO) Specimen Type: BLOOD No comment entered. Ordering Provider: YULY AUSTIN Report Released Date/Time: Aug 17, 2023 08:25 AM Reporting Lab: [facility] [address] [facility] [address] Performing Lab: [address] [address] WBC 8.35 10*3/uL 4.50-11.00 RBC 4.17 10*6/uL L 4.23-5.66 HGB 12.0 g/dL L 12.8-17 HCT 35.3 L 39.2-50.4 MCV 84.7 fL 82-99 MCHC 34.0 g/dL 30.8-35.1 PLT 305 10*3/uL 140-360 RDW-CV 12.3 12.0-16.0 Kent, Abs 0.71 10*3/uL 0.30-1.10 MCH 28.8 pg 26.2-32.6 Neut % 66.3 43.7-75.8 Lymph % 20.8 14.0-42.3 Kent % 8.5 5.1-13.7 Eos % 3.0 0.4-6.8 Baso % 1.0 0.1-2.0 Neut, Abs 5.54 10*3/uL 2.20-7.60 Lymph, Abs 1.74 10*3/uL 1.00-3.20 Eos, Abs 0.25 10*3/uL 0.03-0.44 Baso, Abs 0.08 10*3/uL 0.01-0.13 Immature Gran % 0.4 0.0-0.7 Immature Gran, Abs 0.03 10*3/uL 0.00-0.06 Vital Signs: All taken on the encounter date This section contains inpatient and outpatient Vital Signs collected on the date of the Encounter. Date/Time Temperature Pulse Blood Pressure Respiratory Rate SP02 Pain Height Weight Body Mass Index Source Sep 25, 2023 10:37 AM 98.2 92 156/76 20 97 60.3 145 28 [place] Advance Directives: All historical and current Section Date Range: From patient's date of to the date document was created. This section includes ALL of a patient's completed or amended [place] Advance and Rescinded Directives. The entries below indicate that a directive exists for the patient, but an actual copy is not included with this document. The data comes from all [place] facilities. Date Advance Directives Provider Source Apr 10, 2023 ADVANCE DIRECTIVE ESSIE STARK [place] [facility] [place] [facility] Apr 19, 2007 ADVANCE DIRECTIVE VICTORIA JOHNSON [facility] Radiology Reports: +/- 30 days of [...] the Encounter. The data comes from all [place] treatment facilities. Date/Time Radiology Report Provider Source Sep 26, 2023 08:32 AM SPINE LUMBOSACRAL MIN 2 VIEWS: GUSTAVO ARAMBULA 1940 M Exm Date: SEP 26, 2023@08:32 Req Phys: TRACY CARRILLO Loc: CWM/SO/PACT 7 (Req'g Loc) Img Loc: [facility]BUILD[facility] 1 Service: Unknown (Case [id number] COMPLETE) SPINE LUMBOSACRAL MIN 2 VIEWS (RAD Detailed) CPT:20195 Reason for Study: lumbar pain Clinical History: 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, fellow, SHOE CLERK or attending: Tracy Carrillo NP [place] Pager: [phone] Backup pager: History: chronic lumbar spine pain Report Status: Verified Date Reported: SEP 26, 2023 Date Verified: SEP 26, 2023 Wrapping Checker E-Sig:/ES/CHERYLE GUZMAN JR Report: Study: AP, lateral [...] Primary Interpreting Staff: CHERYLE GUZMAN JR, Radiologist (Wrapping Checker) /CHERYLE VALENCIA JR [place] [facility] [place] [facility] Sep 26, 2023 08:32 AM HIP 2-3 VIEWS (RIGHT) WITH OR WITHOUT PELVIS: GUSTAVO ARAMBULA CATHERINE 1940 M Exm Date: SEP 26, 2023@08:32 Req Phys: TRACY CARRILLO Pat Loc: CWM/SO/PACT 7 (Req'g Loc) Img Loc: [facility] 1 Service: Unknown (Case [id number] COMPLETE) HIP 2-3 VIEWS (RIGHT) WITH OR WIT(RAD Detailed) CPT:06008 CPT Modifiers : RT RIGHT SIDE Reason for Study: hip pain Clinical History: 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, fellow, SHOE CLERK or attending: Tracy Carrillo NP [place] Pager: [phone] Backup pager: History: chronic right hip pain, hx CAROL ANN Report Status: Verified Date Reported: SEP 26, 2023 Date Verified: SEP 26, 2023 Wrapping Checker E-Sig:/ES/CHERYLE GUZMAN JR Report: Study: AP view [...] Primary Interpreting Staff: CHERYLE GUZMAN JR, Radiologist (Wrapping Checker) /CHERYLE VALENCIA JR [place] [facility] [place] [facility] Sep 05, 2023 11:05 AM HIP 2-3 VIEWS(LEFT) WITH OR WITHOUT PELVIS: GUSTAVO ARAMBULA 1940 M Exm Date: SEP 05, 2023@11:05 Req Phys: DANIELE CHILDS Pat Loc: CWM/NO/PACT/FIRM SHOE CLERK (Req'g Loc Img Loc: [facility]BUILD[facility] 1 Service: Unknown (Case 18 COMPLETE) HIP 2-3 VIEWS(LEFT) WITH OR WITHO(RAD Detailed) CPT:04663 Proc Modifiers : LEFT CPT Modifiers : LT LEFT SIDE Reason for Study: chronic left hip pain Clinical History: Report Status: Verified Date Reported: SEP 05, 2023 Date Verified: SEP 05, 2023 Wrapping Checker E-Sig:/ES/CHERYLE GUZMAN JR Report: Study: AP view [...] Primary Interpreting Staff: CHERYLE GUZMAN JR, Radiologist (Wrapping Checker) /CHERYLE VALENCIA JR [place] [facility] Encounter Notes: All associated encounter notes This section contains the clinical notes associated to the Encounter. Date/Time Encounter Note(s) Provider Source Sep 25, 2023 10:36 AM PRIMARY CARE NURSE PRACTITIONER OUTPATIENT NOTE: LOCAL TITLE: NURSE PRACTITIONER OUTPATIENT NOTE STANDARD TITLE: PRIMARY CARE NURSE PRACTITIONER OUTPATIENT NOTE DATE OF NOTE: SEP 25, 2023@10:36 ENTRY DATE: SEP 25, 2023@10:37:01 AUTHOR: TRACY CARRILLO EXP COSIGNER: URGENCY: STATUS: COMPLETED PRIMARY CARE VISIT GUSTAVO CATHERINE RALF, is a 82 y/o WHITE MALE who presents today at the [place] [facility]. Transfer from [facility] TYPE OF VISIT: Face to face HPI: severe right hip and low right-sided back pain - has hx right CAROL ANN about 18 years ago. Denies groin pain, radiation of back pain. Pain started about 6-7 years ago and is progressively getting worse. Uses a cane for support d/t poor balance. Takes multiple medications for pain. Requests referral to chiropractor Nausea, constipation x one week. No change in medications, however he is taking oxycodone and on Bup patch for chronic pain. Drinks very little water, not taking a stool softener. Recent labs reviewed and all medications were reconciled during this visit. HISTORY: PERIOD OF SERVICE - [employer] FROM December TO Oct COMBAT SERVICE INDICATED: No VITAL SIGNS: Temperature 98.2 F [36.8 C] (09/25/2023 10:37) Blood Pressure 156/76 (09/25/2023 10:37) Pulse 92 (09/25/2023 10:37) Respiration 20 (09/25/2023 10:37) Pain 7 (09/05/2023 10:02) BMI BMI: 28.1 Weight 145 lb [65.77 kg] (09/25/2023 10:37) Pulse Oximetry 97% (09/25/2023 10:37) ASSISTIVE DEVICES: cane REVIEW OF SYSTEMS: CONSTITUTIONAL: No fevers, chills, unexpected weight changes. GI: + constipation, nausea. Denies vomiting. MUSCULOSKELETAL: severe low back pain, right hip pain NEUROLOGIC: No numbness/tingling in the extremities PHYSICAL EXAMINATION: General: Well-appearing in no obvious distress. Mental Status: Alert and oriented x4. Lungs: respirations easy and unlabored GI: Abdomen is soft and nontender. No palpable mass or organomegaly. Hypoactive BS x 4 MS: Very limited ROM right hip, mild external rotation. Severe pain with limited ROM lumbar spine. Point tenderness right lumbar paraspinal muscles. Psych: Normal mood and affect. Normal judgment. Cooperative with exam, follows commands. ALLERGIES: GEMFIBROZIL, LISINOPRIL HEALTH MAINTENANCE - see end of note PREVENTIVE MEDICINE GOALS MH Mental Health Treatment Plan DUE NOW Primary Care Provider Search DUE NOW Medication Reconciliation DUE NOW ASSESSMENT/PLAN: Active problems - Computerized Problem List is the source for the followin. OA right hip - XR ordered. Referral made to chiropractor. Will likely need to see Ortho for CAROL ANN. Continue current pain management. 2. Lumbar pain - has hx DDD. XR lumbar spine ordered. Will likely need to see neurosurgery and/or physiatry. Declines referral to PT, chiropractor at this time. Has seen info specialist in the past. 3. Nausea and constipation - likely r/t opioid use. Increase PO fluid intake. Start Senna BID. FOLLOW UP: Return to clinic as noted below and/or sooner PRN UPCOMING APPOINTMENTS: 10/16/2023 09:00 COM CARE-OTHER 11/06/2023 09:30 CWM/NO/VVC/PAIN [facility] 11/14/2023 10:00 CWM/NO/JESSICA/BERNADINE 1 No barriers noted; patient understands and agrees to current treatment plan. If patient has any questions, concerns or changes in current health status he/she will call [facility] HM: /reginaldo/ DARLENE BOX CERTIFIED NURSE PRACTITIONER Signed: 09/25/2023 19:53 TRACY CARRILLO [place]
--- OUTSIDE RECORDS SUMMARY | 2024-08-16 09:30 | XMS_ITS ---
Author Name [facility] Organization [facility] [place] Address [address] [place] [address] Care Team Providers Care Manufacturer Name Role Phone NELL CARRILLO Primary Care Provider Unavailabl e Insurance [...] PHI MEDEX BRONZ E December 19, 2013 [id number] GUSTAVO ARAMBULA SR PATIENT [employer]UAL[employer] MEDICARE SUPPLEMEN PHI MEDIC ARE SUPPL EMENT Jul 21, 2007 NONE [id number] [phone] Edgar ARAMBULA PATIENT [place] MED[place] SUPPLEMEN PHI MEDEX BRONZ E December 19, 2013 [id number] GUSTAVO ARAMBULA SR PATIENT [place] MEDICARE SUPPLEMEN PHI MEDEX BRONZ E December 19, 2013 [id number] [phone] Edgar ARAMBULA PATIENT MEDICARE (WNR) MEDICARE () PART A Oct 19, 2004 PART A [id number] Edgar ARAMBULA PATIENT MEDICARE (WNR) MEDICARE (M) PART B Oct 19, 2004 PART B [id number] Edgar ARAMBULA [place] PATIENT MEDICARE (WNR) MEDICARE () PART A Oct 19, 2004 PART A [id number] Edgar ARAMBULAN PATIENT MEDICARE (WNR) MEDICARE () PART B Oct 19, 2004 PART B [id number] Edgar ARAMBULAN PATIENT MEDICARE (WNR) MEDICARE () PART A Oct 19, 2004 PART A [id number] Edgar ARAMBULAN PATIENT MEDICARE (WNR) MEDICARE () PART B Oct 19, 2004 PART B [id number] [phone] Edgar ARAMBULAN PATIENT MEDICARE (WNR) MEDICARE () PART A Oct 19, 2004 PART A [id number] [phone] Edgar ARAMBULA PATIENT MEDICARE (WNR) MEDICARE () PART B Oct 19, 2004 PART B [id number] [phone] Edgar ARAMBULAN PATIENT MEDICARE (WNR) MEDICARE () PART A Oct 19, 2004 PART A [id number] [phone] Edgar ARAMBULAN PATIENT MEDICARE (WNR) MEDICARE () PART B Oct 19, 2004 PART B [id number] Edgar ARAMBULA PATIENT Selected Encounter This section includes the information on record at [place] for the Encounter. Date/Time Encounter Type Encounter Description Reason Pro vider Source Oct 04, 2023 12:00 AM Outpatient Encounter COMMUNITY CARE CONSULT IHE Encounter [...] 20 appointments. The data comes from all [facility]. Appointment Date/Time Appointment Type Appointme nt Facility Name Oct 16, 2023 09:00 AM AMBULATORY - MEDICINE [place] [facility] [place] [facility] Nov 06, 2023 09:30 AM AMBULATORY - MEDICINE [place] [facility] [place] [facility] December 21, 2023 09:00 AM AMBULATORY - PSYCHIATRY [facility] [place] [facility] December 25, 2023 09:00 AM AMBULATORY - MEDICINE [facility] Feb 05, 2024 10:00 AM AMBULATORY - MEDICINE [place] [facility] [place] [facility] Feb 13, 2024 11:30 AM AMBULATORY - MEDICINE [facility] Feb 15, 2024 09:00 AM AMBULATORY - PSYCHIATRY [place] [facility] [place] [facility] Feb 15, 2024 09:45 AM AMBULATORY - NONE [facility] [place] [facility] Mar 07, 2024 09:00 AM AMBULATORY - PSYCHIATRY [facility] [place] [facility] Mar 08, 2024 08:30 AM AMBULATORY - NONE [place] [facility] [place] [facility] Mar 11, 2024 09:00 AM AMBULATORY [facility] Active, Pending, and Scheduled Orders This section includes a listing of several types of active, pending, and scheduled orders, including clinic medications orders, diagnostic test orders, procedure orders and consult orders; where the start date of the order is 45 days before the date of the Encounter or 45 days after the date of theEncounter. The data comes from all [facility]. 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 Radiology Reports and Pathology Reports are provided separately, in subsequent sections. Lab Results This section contains the Chemistry/Hematology Results that were resulted 30 days before or 30 daysafter the date of the Encounter. Date/Time Source Result Type Result - Unit Interpretation Reference Range Comment Sep 05, 2023 10:56 [facility] FERRITIN Specimen Type: SERUM No comment entered. Ordering Provider: LANI CHILDS Report Released Date/Time: Sep 05, 2023 10:30 AM Reporting Lab: [facility] [address] [address] Performing Lab: [facility] [address] [address] FERRITIN 25 ng/mL 20-300 Sep 05, 2023 10:56 AM [facility] IRON & TIBC PANEL Specimen Type: SERUM No comment entered. Ordering Provider: LANI CHILDS Report Released Date/Time: Sep 05, 2023 10:30 AM Reporting Lab: [facility] [address] [address] Performing Lab: [facility] [address] [address] TIBC 401 ug/dL 204-475 IRON 53 ug/dL 40-160 Transferrin Saturation 13.2 L 20.0-50.0 Sep 05, 2023 10:56 AM [facility] CBC AND DIFF (AUTO) Specimen Type: BLOOD No comment entered. Ordering Provider: LANI CHILDS Report Released Date/Time: Sep 05, 2023 10:30 AM Reporting Lab: [facility] [address] [address] Performing Lab: [facility] [address] [address] WBC 5.66 10*3/uL 4.50-11.00 RBC 4.25 10*6/uL 4.23-5.66 HGB 12.1 g/dL L 12.8-17 HCT 35.5 L 39.2-50.4 MCV 83.5 fL 82-99 MCHC 34.1 g/dL 30.8-35.1 PLT 295 10*3/uL 140-360 RDW-CV 12.0 12.0-16.0 [place], Abs 0.59 10*3/uL 0.30-1.10 MCH 28.5 pg 26.2-32.6 Neut % 56.3 43.7-75.8 Lymph % 27.2 14.0-42.3 [place] % 10.4 5.1-13.7 Eos % 4.1 0.4-6.8 Baso % 1.6 0.1-2.0 Neut, Abs 3.19 10*3/uL 2.20-7.60 Lymph, Abs 1.54 10*3/uL 1.00-3.20 Eos, Abs 0.23 10*3/uL 0.03-0.44 Baso, Abs 0.09 10*3/uL 0.01-0.13 Immature Gran % 0.4 0.0-0.7 Immature Gran, Abs 0.02 10*3/uL 0.00-0.06 Social History: Smoking Status (Most current) and Tobacco Use (All prior to encounter date) This section includes the most current, and the historical, smoking and tobacco- related health factors from the [place] facility where the Encounter took place. Current Smoking Status This section includes the most current smoking, or tobacco-related health factor, from the [place] facility where the Encounter took place. Date/Time Current Smoking Status Comment [facility] Dec 13, 2022 03:00 PM VA-TOBACCO USER EVERY DAY [facility] Tobacco Use History This section includes a history of the smoking, or tobacco-related health factors, that were collected on or before the date of the Encounter. The data comes from the [place] facility where the Encounter took place. 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 [facility] [place] [facility] Dec 13, 2022 03:00 PM VA-TOBACCO USE MED NO [place] [facility] [place] [facility] Dec 13, 2022 03:00 PM VA-TOBACCO USER EVERY DAY [facility] [place] [facility] Nov 17, 2021 10:00 AM VA-TOBACCO USE 30 YEARS OR MORE [facility] [place] [facility] Nov 17, 2021 10:00 AM VA-TOBACCO USE ADVICE [facility] [place] [facility] Nov 17, 2021 10:00 AM 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 [facility] [place] [facility] Nov 17, 2021 10:00 AM VA-TOBACCO USE MED NO [facility] [place] [facility] Nov 17, 2021 10:00 AM VA-TOBACCO USE WI 30 MIN OF WAKEUP [place] [facility] [place] [facility] Nov 17, 2021 10:00 AM VA-TOBACCO USER EVERY DAY [facility] [place] [facility] Oct 14, 2013 12:55 PM V1-PT NOT INTERESTED IN QUIT TOBACCO USE [facility] [place] [facility] May 07, 2013 05:04 PM CURRENT SMOKER trying to stop [facility] [place] [facility] May 07, 2013 05:04 PM V1-PT DECLINES REF TO TOBACCO CESS PRGM [facility] [place] [facility] May 07, 2013 05:04 PM V1-PT DECLINES TOBACCO CESSATION MEDS [facility] [place] [facility] May 07, 2013 05:04 PM V1-PT READY TO QUIT TOBACCO USE [facility] [place] [facility] Dec 03, 2012 08:23 AM V1-PT DECLINES REF TO TOBACCO CESS PRGM [facility] [place] [facility] Dec 03, 2012 08:23 AM V1-PT DECLINES TOBACCO CESSATION MEDS [facility] [place] [facility] Dec 03, 2012 08:23 AM V1-PT THINKING ABOUT QUIT TOBACCO USE [facility] [place] [facility] Jun 05, 2012 08:45 AM CURRENT SMOKER 1/2ppd [facility] [place] [facility] Jun 05, 2012 08:45 AM V1-PT DECLINES REF TO TOBACCO CESS PRGM [facility] [place] [facility] Jun 05, 2012 08:45 AM V1-PT THINKING ABOUT QUIT TOBACCO USE [facility] [place] [facility] Jun 05, 2012 08:45 AM V1-TOBACCO CESS MEDS NOT PRESCRIBED Vet wants to talk to his provider-He is nervous about taking meds to quit- but he is interested in quitting [facility] [place] [facility] Nov 25, 2011 09:14 AM V1-PT DECLINES REF TO TOBACCO CESS PRGM [facility] [place] [facility] Nov 25, 2011 09:14 AM V1-PT DECLINES TOBACCO CESSATION MEDS [facility] [place] [facility] Nov 25, 2011 09:14 AM V1-PT THINKING ABOUT QUIT TOBACCO USE [facility] [place] [facility] May 06, 2011 01:02 PM CURRENT SMOKER [facility] [place] [facility] May 06, 2011 01:02 PM V1-PT DECLINES TOBACCO CESSATION MEDS [facility] May 06, 2011 01:02 PM V1-PT NOT INTERESTED IN QUIT TOBACCO USE [facility] Sep 24, 2010 08:51 AM V1-PT DECLINES TOBACCO CESSATION MEDS [facility] [place] [facility] Sep 24, 2010 08:51 AM V1-PT THINKING ABOUT QUIT TOBACCO USE [facility] [place] [facility] Mar 22, 2010 07:58 AM CURRENT SMOKER 1/2 ppd [facility] [place] [facility] Feb 25, 2009 12:05 PM QUIT TOBACCO USE IN PAST YEAR [facility] [place] [place] [facility] Aug 26, 2008 09:28 AM CURRENT SMOKER 1/2 ppd [facility] [place] [facility] Aug 26, 2008 09:28 AM V1-PT DECLINES REF TO TOBACCO CESS PRGM [facility] [place] [facility] Aug 26, 2008 09:28 AM V1-PT READY TO QUIT TOBACCO USE [facility] [place] [facility] Dec 19, 2007 10:08 AM V1-PT DECLINES REF TO TOBACCO CESS PRGM [facility] [place] [facility] Dec 19, 2007 10:08 AM V1-PT DECLINES TOBACCO CESSATION MEDS [facility] Dec 19, 2007 10:08 AM V1-PT THINKING ABOUT QUIT TOBACCO USE [facility] [place] [facility] Sep 11, 2007 11:10 AM CURRENT SMOKER [facility] Sep 11, 2007 11:10 AM V1-PT DECLINES REF TO TOBACCO CESS PRGM [facility] Sep 11, 2007 11:10 AM V1-PT DECLINES TOBACCO CESSATION MEDS [facility] Sep 11, 2007 11:10 AM V1-PT THINKING ABOUT QUIT TOBACCO USE [facility] Feb 13, 2007 01:46 PM V1-PT DECLINES REF TO TOBACCO CESS PRGM [facility] Feb 13, 2007 01:46 PM V1-PT DECLINES TOBACCO CESSATION MEDS [facility] Feb 13, 2007 01:46 PM V1-PT THINKING ABOUT QUIT TOBACCO USE [facility] Oct 02, 2006 08:28 AM QUIT TOBACCO USE IN PAST YEAR 3 months ago [facility] Aug 19, 2005 08:33 AM QUIT TOBACCO USE IN PAST YEAR nonsmoker [facility] Sep 21, 2004 09:54 AM CURRENT SMOKER [facility] Sep 07, 2004 08:07 AM CURRENT SMOKER [facility] Sep 15, 2003 11:21 AM CURRENT SMOKER smokes one pk day [facility] Jul 23, 2003 01:57 PM CURRENT SMOKER [facility] Advance Directives: All historical and current Section Date Range: From patient's date of to the date document was created. This section includes ALL of a patient's completed or amended [place] Advance and Rescinded Directives. The entries below indicate that a directive exists for the patient, but an actual copy is not included with this document. The data comes from all [place] facilities. Date Advance Directives Provider Source Apr 10, 2023 ADVANCE DIRECTIVE ESSIE STARK [facility] W GAUDENCION [facility] Apr 19, 2007 ADVANCE DIRECTIVE VICTORIA JOHNSON [facility] Radiology Reports: +/- 30 days of the [...] the Encounter. The data comes from all [place] treatment facilities. 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: Nell Carrillo NP [place] Pager: [phone] Backup pager: History: chronic lumbar spine pain Report Status: Verified Date Reported: SEP 26, 2023 Date Verified: SEP 26, 2023 Deaf/Hard Of Hearing Specialist E-Sig:/ES/CHERYLE GUZMAN JR Report: Study: AP, lateral [...] Primary Interpreting Staff: CHERYLE GUZMAN JR, Radiologist (Deaf/Hard Of Hearing Specialist) /CHERYLE VALENCIA JR [facility] Sep 26, 2023 08:32 AM HIP 2-3 VIEWS (RIGHT) WITH OR WITHOUT PELVIS: GUSTAVO ARAMBULA 1940 M Exm Date: SEP 26, 2023@08:32 Req Phys: NELL CARRILLO Loc: CWM/SO/PACT 7 (Req'g Loc) Img Loc: [facility] 1 Service: Unknown (Case [id number] COMPLETE) HIP 2-3 VIEWS (RIGHT) WITH OR WIT(RAD Detailed) CPT:64769 CPT Modifiers : RT RIGHT SIDE Reason for Study: hip pain Clinical History: 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, 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, 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 attending: Nell Carrillo NP [place] Pager: [phone] Backup pager: History: chronic right hip pain, hx CAROL ANN Report Status: Verified Date Reported: SEP 26, 2023 Date Verified: SEP 26, 2023 Deaf/Hard Of Hearing Specialist E-Sig:/ES/CHERYLE GUZMAN JR Report: Study: AP view [...] Primary Interpreting Staff: CHERYLE GUZMAN JR, Radiologist (Deaf/Hard Of Hearing Specialist) /CHERYLE VALENCIA JR [facility] Sep 05, 2023 11:05 AM HIP 2-3 VIEWS(LEFT) WITH OR WITHOUT PELVIS: GUSTAVO ARAMBULA 1940 M Exm Date: SEP 05, 2023@11:05 Req Phys: DANIELE CHILDS Pat Loc: CWM/NO/PACT/FIRM PRODUCT DEVELOPMENT DIRECTOR (Req'g Loc Img Loc: [facility] 1 Service: Unknown (Case [id number] COMPLETE) HIP 2-3 VIEWS(LEFT) WITH OR WITHO(RAD Detailed) CPT:52379 Proc Modifiers : LEFT CPT Modifiers : LT LEFT SIDE Reason for Study: chronic left hip pain Clinical History: Report Status: Verified Date Reported: SEP 05, 2023 Date Verified: SEP 05, 2023 Deaf/Hard Of Hearing Specialist E-Sig:/ES/CHERYLE GUZMAN JR Report: Study: AP view [...] Primary Interpreting Staff: CHERYLE GUZMAN JR, Radiologist (Deaf/Hard Of Hearing Specialist) /CHERYLE VALENCIA JR [facility] Encounter Notes: All associated encounter notes This section contains the clinical notes associated to the Encounter. Date/Time Encounter Note(s) Provider Source Oct 04, 2023 12:00 AM NONVA CONSULT: LOCAL TITLE: COMMUNITY CARE-CONSULT RESULT NOTE STANDARD TITLE: NONVA CONSULT DATE OF NOTE: OCT 04, 2023 ENTRY DATE: OCT 12, 2023@14:44:08 AUTHOR: VERONICA HUYNH EXP COSIGNER: URGENCY: STATUS: COMPLETED VistA Imaging - Scanned Document SCANNED DOCUMENT SIGNATURE NOT REQUIRED Electronically Filed: 10/12/2023 by: VERONICA HUYNH PRESCRIPTION EYEGLASS MAKER VERONICA HUYNH [facility]
--- OUTSIDE RECORDS SUMMARY | 2024-08-16 09:30 | XMS_ITS | Encounter Summary ---
Author Name [facility] [place] [facility] [place] Address [address] [place] [address] Care Team Providers Care Repair Coil Winder Name Role Phone TRACY CARRILLO Primary Care [...] PHI MEDEX BRONZ E December 19, 2013 [id number] GUSTAVO ARAMBULA SR PATIENT [employer] MEDICARE SUPPLEMEN PHI MEDIC ARE SUPPL EMENT Jul 21, 2007 NONE [id number] Edgar ARAMBULA [place]IENT [place] MED[place] SUPPLEMEN PHI MEDEX BRONZ E December 19, 2013 [id number] GUSTAVO ARAMBULA SR PATIENT [place] OF [place] MEDICARE SUPPLEMEN PHI MEDEX BRONZ E December 19, 2013 [id number] Edgar ARAMBULAN PATIENT MEDICARE (WNR) MEDICARE () PART A Oct 19, 2004 PART A [id number] Edgar ARAMBULA [place] PATIENT MEDICARE (WNR) MEDICARE (M) PART B Oct 19, 2004 PART B [id number] Edgar ARAMBULA [place] PATIENT MEDICARE ([place]NR) MEDICARE () PART A Oct 19, 2004 PART A [id number] Edgar ARAMBULA [place] PATIENT MEDICARE ([place]NR) MEDICARE () PART B Oct 19, 2004 PART B [id number] Edgar ARAMBULA [place] PATIENT MEDICARE ([place]NR) MEDICARE () PART A Oct 19, 2004 PART A [id number] [id number] Edgar ARAMBULA [place] PATIENT MEDICARE (WNR) MEDICARE () PART B Oct 19, 2004 PART B [id number] Edgar ARAMBULAN PATIENT MEDICARE (WNR) MEDICARE () PART A Oct 19, 2004 PART A [id number] [phone] Edgar ARAMBULAN PATIENT MEDICARE (WNR) MEDICARE () PART B Oct 19, 2004 PART B [id number] Edgar ARAMBULA [place] PATIENT MEDICARE ([place]) MEDICARE () PART A Oct 19, 2004 PART A [id number] [phone] Edgar ARAMBULAN PATIENT MEDICARE (WNR) MEDICARE () PART B Oct 19, 2004 PART B [id number] [phone] Edgar ARAMBULAN PATIENT Selected Encounter This section includes the information on [place] at [place] for the Encounter. Date/Time Encounter Type Encounter Description Reason Pro vider Source Sep 25, 2023 11:11 AM Outpatient Encounter PRIMARY CARE/MEDICINE IHE Encounter [...] 20 appointments. The data comes from all [facility]. Appointment Date/Time Appointment Type Appointme nt Facility Name Sep 26, 2023 08:27 AM AMBULATORY - NONE [place] [facility] [place] [facility] Sep 26, 2023 12:00 PM AMBULATORY - MEDICINE [place] [facility] [place] [facility] Oct 16, 2023 09:00 AM AMBULATORY - MEDICINE [place] [facility] [place] [facility] Nov 06, 2023 09:30 AM AMBULATORY - MEDICINE [place] [facility] [place] [facility] December 21, 2023 09:00 AM AMBULATORY - PSYCHIATRY [place] [facility] [place] [facility] December 25, 2023 09:00 AM AMBULATORY - MEDIC[facility] Feb 05, 2024 10:00 AM AMBULATORY - MEDICINE [place] [facility] [place] [facility] Feb 13, 2024 11:30 AM AMBULATORY - MED[facility] Feb 15, 2024 09:00 AM AMBULATORY - PSYCHIATRY [place] [facility] [place] [facility] Feb 15, 2024 09:45 AM AMBULATORY - NONE [place] [facility] [place] [facility] Mar 07, 2024 09:00 AM AMBULATORY - PSYCHIATRY [place] [facility] [place] [facility] Mar 08, 2024 08:30 AM AMBULATORY - NONE [place] [facility] [place] [facility] Mar 11, 2024 09:00 AM AMBULATORY - MEDICINE [facility] Active, Pending, and Scheduled Orders This section includes a listing of several types of active, pending, and scheduled orders, including clinic medications orders, diagnostic test orders, procedure orders and consult orders; where the start date of the order is 45 days before the date of the Encounter or 45 days after the date of theEncounter. The data comes from all [facility]. Test Date/Time Test Type Test Details Facility Name Sep 05, 2023 12:00 AM Laboratory - Chemi stry Order OCCULT BLOOD FIT X1 SCREEN(IN-HOUSE) STOOL FECES SP [place] [facility] [place] [facility] Sep 26, 2023 09:55 AM Consult Order [facility] Cons Sound Ranging Crewmember's Choice DEWAR Lab Results: +/- 30 days of the [...] Range Comment Sep 05, 2023 10:56 [facility] FERRITIN Specimen Type: SERUM No comment entered. Ordering Provider: YOAN CHILDS Report Released Date/Time: Sep 05, 2023 10:30 AM Reporting Lab: [facility] [address] Performing Lab: [facility] [address] [address] FERRITIN 25 ng/mL 20-300 Sep 05, 2023 10:56 AM [facility] IRON & TIBC PANEL Specimen Type: SERUM No comment entered. Ordering Provider: YOAN CHILDS Report Released Date/Time: Sep 05, 2023 10:30 AM Reporting Lab: [facility] [place] [address] [address] Performing Lab: [facility] [address] [address] TIBC 401 ug/dL 204-475 IRON 53 ug/dL 40-160 Transferrin Saturation 13.2 L 20.0-50.0 Sep 05, 2023 10:56 AM [facility] CBC AND DIFF (AUTO) Specimen Type: BLOOD No comment entered. Ordering Provider: YOAN CHILDS Report Released Date/Time: Sep 05, 2023 10:30 AM Reporting Lab: [facility] [address] [address] Performing Lab: [facility] [address] [address] WBC 5.66 10*3/uL 4.50-11.00 RBC 4.25 10*6/uL 4.23-5.66 HGB 12.1 g/dL L 12.8-17 HCT 35.5 L 39.2-50.4 MCV 83.5 fL 82-99 MCHC 34.1 g/dL 30.8-35.1 PLT 295 10*3/uL 140-360 RDW-CV 12.0 12.0-16.0 Coleman, Abs 0.59 10*3/uL 0.30-1.10 MCH 28.5 pg 26.2-32.6 Neut % 56.3 43.7-75.8 Lymph % 27.2 14.0-42.3 Coleman % 10.4 5.1-13.7 Eos % 4.1 0.4-6.8 Baso % 1.6 0.1-2.0 Neut, Abs 3.19 10*3/uL 2.20-7.60 Lymph, Abs 1.54 10*3/uL 1.00-3.20 Eos, Abs 0.23 10*3/uL 0.03-0.44 Baso, Abs 0.09 10*3/uL 0.01-0.13 Immature Gran % 0.4 0.0-0.7 Immature Gran, Abs 0.02 10*3/uL 0.00-0.06 Sep 01, 2023 10:29 AM [facility] LIPID PANEL FASTING Specimen Type: SERUM No comment entered. Ordering Provider: YULY AUSTIN Report Released Date/Time: Aug 17, 2023 08:25 AM Reporting Lab: [facility] [address] [facility] [address] Performing Lab: [address] [address] CHOLESTEROL 133 mg/dL TRIGLYCERIDE 73 mg/dL 0-150 LDL calculated 75 mg/dL 0-129 CHOL/HDL 3.1 HDL CHOLESTEROL 43 mg/dL 40-60 Sep 01, 2023 10:29 AM [facility] HEMOGLOBIN A1C PANEL Specimen Type: BLOOD [...] Aug 17, 2023 08:25 AM Reporting Lab: [facility] [address] [facility] [address] Performing Lab: [facility] [address] [facility] [address] HEMOGLOBIN A1C 6.7 H 4.0-5.6 Sep 01, 2023 10:29 AM [facility] BASIC METABOLIC PANEL (fasting) Specimen Type: SERUM No comment entered. Ordering Provider: YULY AUSTIN Report Released Date/Time: Aug 17, 2023 08:25 AM Reporting Lab: [facility] [address] [facility] [address] Performing Lab: [address] [address] UREA NITROGEN 10 mg/dL 7-25 GLUCOSE 135 mg/dL H 65-100 SODIUM 138 mmol/L 135-145 POTASSIUM 3.9 mmol/L 3.5-5.0 CHLORIDE 101 mmol/L 100-110 CO2 27 meq/L 20-30 CREATININE, Serum 0.73 mg/dL 0.50-1.40 eGFR(CKD-EPI 2020) 90 mL/min >60 Sep 01, 2023 10:29 AM [facility] LIVER FUNCTION Specimen Type: SERUM No comment entered. Ordering Provider: YULY AUSTIN Report Released Date/Time: Aug 17, 2023 08:25 AM Reporting Lab: [facility] [address] [facility] [address] Performing Lab: [address] [address] PROTEIN,TOTAL 6.9 g/dL 6.0-8.3 ALBUMIN 3.8 g/dL 3.5-5.0 ALKALINE PHOSPHATASE 91 U/L 40-150 AST 14 U/L 5-34 ALT 13 U/L BILIRUBIN, TOTAL 0.5 mg/dL 0.2-1.2 Sep 01, 2023 10:29 AM [facility] MICROALBUMIN CREATININE RATIO PANEL Specimen Type: URINE No comment entered. Ordering Provider: YULY AUSTIN Report Released Date/Time: Aug 17, 2023 08:25 AM Reporting Lab: [facility] [address] [facility] [address] Performing Lab: [facility] [address] [facility] [address] MICROALBUMIN/C REATININE RATIO 9.0 mg/g 0-29.9 MICROALBUMIN,Q UANTITATIVE 1.0 mg/dL RR UNAVAIL CREATININE URINE 110.79 mg/dL Sep 01, 2023 10:29 AM [facility] CBC AND DIFF (AUTO) Specimen Type: BLOOD No comment entered. Ordering Provider: YULY AUSTIN Report Released Date/Time: Aug 17, 2023 08:25 AM Reporting Lab: [facility] [address] [facility] [address] Performing Lab: [facility] [address] [facility] [address] WBC 8.35 10*3/uL 4.50-11.00 RBC 4.17 10*6/uL L 4.23-5.66 HGB 12.0 g/dL L 12.8-17 HCT 35.3 L 39.2-50.4 MCV 84.7 fL 82-99 MCHC 34.0 g/dL 30.8-35.1 PLT 305 10*3/uL 140-360 RDW-CV 12.3 12.0-16.0 Coleman, Abs 0.71 10*3/uL 0.30-1.10 MCH 28.8 pg 26.2-32.6 Neut % 66.3 43.7-75.8 Lymph % 20.8 14.0-42.3 Coleman % 8.5 5.1-13.7 Eos % 3.0 0.4-6.8 [...] took place. Date/Time Current Smoking Status Comment [facility] Dec 13, 2022 03:00 PM VA-TOBACCO USER EVERY DAY [place] [facility] [place] [facility] Tobacco Use History This section includes a history of the smoking, or tobacco-related health factors, that were collected on or before the date of the Encounter. The data comes from the [place] facility where the Encounter took place. Date/Time Smoking Status/Tobac co Use Comment [facility] Dec 13, 2022 03:00 PM VA-TOBACCO USE 30 YEARS OR MORE [place] [facility] [place] [facility] Dec 13, 2022 03:00 PM VA-TOBACCO USE ADVICE [place] [facility] [place] [facility] Dec 13, 2022 03:00 PM VA-TOBACCO USE ADJUTANT GENERAL NO [place] [facility] [place] [facility] Dec 13, 2022 03:00 PM VA-TOBACCO USE MED NO [place] [facility] [place] [facility] Dec 13, 2022 03:00 PM VA-TOBACCO USER EVERY DAY [facility] [place] [facility] Nov 17, 2021 10:00 AM VA-TOBACCO USE 30 YEARS OR MORE [facility] [place] [facility] Nov 17, 2021 10:00 AM VA-TOBACCO USE ADVICE [place] [facility] [place] [facility] Nov 17, 2021 10:00 AM VA-TOBACCO USE ADJUTANT GENERAL NO [facility] [place] [facility] Nov 17, 2021 10:00 AM VA-TOBACCO USE MED NO [facility] [place] [facility] Nov 17, 2021 10:00 AM VA-TOBACCO USE [place] 30 MIN OF WAKEUP [facility] Nov 17, 2021 10:00 AM VA-TOBACCO USER EVERY DAY [facility] Oct 14, 2013 12:55 PM V1-PT NOT INTERESTED IN QUIT TOBACCO USE [facility] May 07, 2013 05:04 PM CURRENT SMOKER trying to stop [facility] May 07, 2013 05:04 PM V1-PT DECLINES REF TO TOBACCO CESS PRGM [facility] May 07, 2013 05:04 PM V1-PT DECLINES TOBACCO CESSATION MEDS [facility] May 07, 2013 05:04 PM V1-PT READY TO QUIT TOBACCO USE [facility] Dec 03, 2012 08:23 AM V1-PT DECLINES REF TO TOBACCO CESS PRGM [facility] Dec 03, 2012 08:23 AM V1-PT DECLINES TOBACCO CESSATION MEDS [facility] Dec 03, 2012 08:23 AM V1-PT THINKING ABOUT QUIT TOBACCO USE [facility] Jun 05, 2012 08:45 AM CURRENT SMOKER 1/2ppd [facility] Jun 05, 2012 08:45 AM V1-PT DECLINES REF TO TOBACCO CESS PRGM [facility] Jun 05, 2012 08:45 AM V1-PT THINKING ABOUT QUIT TOBACCO USE [facility] Jun 05, 2012 08:45 AM V1-TOBACCO CESS MEDS NOT PRESCRIBED Vet wants to talk to his provider-He is nervous about taking meds to quit- but he is interested in quitting [facility] Nov 25, 2011 09:14 AM V1-PT DECLINES REF TO TOBACCO CESS PRGM [facility] Nov 25, 2011 09:14 AM V1-PT DECLINES TOBACCO CESSATION MEDS [facility] Nov 25, 2011 09:14 AM V1-PT THINKING ABOUT QUIT TOBACCO USE [facility] [place] [facility] May 06, 2011 01:02 PM CURRENT SMOKER [facility] [place] [facility] May 06, 2011 01:02 PM V1-PT DECLINES TOBACCO CESSATION MEDS [facility] [place] [facility] May 06, 2011 01:02 PM V1-PT NOT INTERESTED IN QUIT TOBACCO USE [facility] [place] [facility] Sep 24, 2010 08:51 AM V1-PT DECLINES TOBACCO CESSATION MEDS [facility] [place] [facility] Sep 24, 2010 08:51 AM V1-PT THINKING ABOUT QUIT TOBACCO USE [facility] [place] [facility] Mar 22, 2010 07:58 AM CURRENT SMOKER 1/2 ppd [facility] [place] [facility] Feb 25, 2009 12:05 PM QUIT TOBACCO USE IN PAST YEAR [facility] [place] [facility] Aug 26, 2008 09:28 AM CURRENT SMOKER 1/2 ppd [facility] [place] [facility] Aug 26, 2008 09:28 AM V1-PT DECLINES REF TO TOBACCO CESS PRGM [facility] [place] [facility] Aug 26, 2008 09:28 AM V1-PT READY TO QUIT TOBACCO USE [facility] [place] [facility] Dec 19, 2007 10:08 AM V1-PT DECLINES REF TO TOBACCO CESS PRGM [facility] [place] [facility] Dec 19, 2007 10:08 AM V1-PT DECLINES TOBACCO CESSATION MEDS [facility] Dec 19, 2007 10:08 AM V1-PT THINKING ABOUT QUIT TOBACCO USE [facility] [place] [facility] Sep 11, 2007 11:10 AM CURRENT SMOKER [facility] [place] [facility] Sep 11, 2007 11:10 AM V1-PT DECLINES REF TO TOBACCO CESS PRGM [facility] [place] [facility] Sep 11, 2007 11:10 AM V1-PT DECLINES TOBACCO CESSATION MEDS [facility] [place] [facility] Sep 11, 2007 11:10 AM V1-PT THINKING ABOUT QUIT TOBACCO USE [facility] [place] [facility] Feb 13, 2007 01:46 PM V1-PT DECLINES REF TO TOBACCO CESS PRGM [facility] [place] [facility] Feb 13, 2007 01:46 PM V1-PT DECLINES TOBACCO CESSATION MEDS [facility] Feb 13, 2007 01:46 PM V1-PT THINKING ABOUT QUIT [facility]ACCO [facility] Oct 02, 2006 08:28 AM QUIT TOBACCO USE IN PAST YEAR 3 months ago [facility] Aug 19, 2005 08:33 AM QUIT TOBACCO USE IN PAST YEAR nonsmoker [facility] Sep 21, 2004 09:54 AM CURRENT SMOKER [facility] Sep 07, 2004 08:07 AM CURRENT SMOKER [facility] Sep 15, 2003 11:21 AM CURRENT SMOKER smokes one pk day [facility] Jul 23, 2003 01:57 PM CURRENT SMOKER [facility] Advance Directives: All historical and current [...] Apr 10, 2023 ADVANCE DIRECTIVE CARLOSESSIE STUBBS [facility] Apr 19, 2007 ADVANCE DIRECTIVE VICTORIA [...] the Encounter. The data comes from all [place] treatment facilities. Date/Time Radiology Report Provider Source Sep 26, 2023 08:32 AM SPINE LUMBOSACRAL MIN 2 VIEWS: FILEMONGUSTAVO Lockhart CATHERINE -1940 M Exm Date: SEP 26, 2023@08:32 Req Phys: TRACY CARRILLO Pat Loc: CWM/SO/PACT 7 (Req'g Loc) Img Loc: [facility] 1 Service: Unknown (Case [id number] COMPLETE) SPINE LUMBOSACRAL MIN 2 VIEWS (RAD Detailed) CPT:08761 Reason for Study: lumbar pain Clinical History: 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, fellow, LAN SUPPORT SPECIALIST or attending: Tracy Carrillo NP [place] Pager: [phone] Backup pager: History: chronic lumbar spine pain Report Status: Verified Date Reported: SEP 26, 2023 Date Verified: SEP 26, 2023 Colorist E-Sig:/ES/CHERYLE GUZMAN JR Report: Study: AP, lateral [...] Primary Interpreting Staff: CHERYLE GUZMAN JR, Radiologist (Colorist) /CHERYLE VALENCIA JR [place] [facility] [facility] Sep 26, 2023 08:32 AM HIP 2-3 VIEWS (RIGHT) WITH OR WITHOUT PELVIS: GUSTAVO ARAMBULA CATHERINE -1940 M Ex Date: SEP 26, 2023@08:32 Req Phys: TRACY CARRILLO Pat Loc: CWM/SO/PACT 7 (Req'g Loc) Img Loc: [facility] 1 Service: Unknown (Case [id number] COMPLETE) HIP 2-3 VIEWS (RIGHT) WITH OR WIT(RAD Detailed) CPT:00642 CPT Modifiers : RT RIGHT SIDE Reason for Study: hip pain Clinical History: 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, fellow, LAN SUPPORT SPECIALIST or attending: Tracy Carrillo NP [place] Pager: [phone] Backup pager: History: chronic right hip pain, hx CAROL ANN Report Status: Verified Date Reported: SEP 26, 2023 Date Verified: SEP 26, 2023 Colorist E-Sig:/ES/CHERYLE GUZMAN JR Report: Study: AP view [...] Primary Interpreting Staff: CHERYLE GUZMAN JR, Radiologist (Colorist) /CHERYLE VALENCIA JR [place] [facility] [facility] Sep 05, 2023 11:05 AM HIP 2-3 VIEWS(LEFT) WITH OR WITHOUT PELVIS: GUSTAVO ARAMBULA -1940 M [facility] Date: SEP 05, 2023@11:05 Req Phys: DANIELE CHILDS Pat Loc: CWM/NO/PACT/FIRM LAN SUPPORT SPECIALIST (Req'g Loc Img Loc: [facility] 1 Service: Unknown (Case 18 COMPLETE) HIP 2-3 VIEWS(LEFT) WITH OR WITHO(RAD Detailed) CPT:08226 Proc Modifiers : LEFT CPT Modifiers : LT LEFT SIDE Reason for Study: chronic left hip pain Clinical History: Report Status: Verified Date Reported: SEP 05, 2023 Date Verified: SEP 05, 2023 Colorist E-Sig:/ES/CHERYLE GUZMAN JR Report: Study: AP view [...] Primary Interpreting Staff: CHERYLE GUZMAN JR, Radiologist (Colorist) /CHERYLE VALENCIA JR [facility] Encounter Notes: All associated encounter notes This section contains the clinical notes associated to the Encounter. Date/Time Encounter Note(s) Provider Source Sep 25, 2023 11:11 AM PRIMARY CARE NOTE: LOCAL TITLE: WALK-IN NOTE PRIMARY CARE (T) STANDARD TITLE: PRIMARY CARE NOTE DATE OF NOTE: SEP 25, 2023@11:11 ENTRY DATE: SEP 25, 2023@11:11:45 AUTHOR: DEVENDRA DELGADO EXP COSIGNER: URGENCY: STATUS: COMPLETED WALK-IN NOTE PRIMARY CARE (T) Has ADDENDA <====Click to Start Advanced Medical Support [place] presents to the Primary Care clinic with the following request: [ ]Medication Renewal/Refill [ ]Consultation with Team RN [ ]Symptoms [ X ]Other The states they are: [ ]Waiting [ X ]Not Waiting No Walk in visit scheduled with PACT Nurse [ X ] At this encounter the 's demographics were verified. [ X ] At this encounter the 's Insurance information was verified. [ X ] At this encounter the below scheduled visits for the were discussed and appointment reminder card was offered. Future appointments: 10/16/2023 09:00 COM CARE-OTHER 11/06/2023 09:30 CWM/NO/VVC/PAIN MD CLINIC 11/14/2023 10:00 CWM/NO/MHC/COLINDRES 1 12/25/2023 09:00 CWM/SO/PACT 7 brought in form for Dental procedure to have PCP fill out. Placed in Provider's mailbox for review. /reginaldo/ DEVENDRA SMITH Signed: 09/25/2023 11:13 Receipt Acknowledged By: 09/25/2023 11:43 /reginaldo/ MARCUS DOZIER LPN LPN 09/25/2023 11:59 /reginaldo/ KAPIL COLLIER,RN-BC REGISTERED NURSE (RN) 09/26/2023 ADDENDUM STATUS: COMPLETED Called pt to advise medical consult request form was filled out and ready to be picked up. No answer LVM. /reginaldo/ SHANEKA SMITH Signed: 09/26/2023 15:59 DEVENDRA DELGADO DEWAR
--- OUTSIDE RECORDS SUMMARY | 2024-08-16 09:30 | XMS_ITS | Encounter Summary ---
Author Name [facility] [facility] [place] [facility] [place] [facility] [place] Address [address] [place] [address] Care Team Providers Care Tariff Counsel Name Role Phone NELL CARRILLO Primary Care [...] PHI MEDEX BRONZ E December 19, 2013 [id number] [phone] GUSTAVO ARAMBULA SR PATIENT [employer] MEDICARE SUPPLEMEN PHI MEDIC ARE SUPPL EMENT Jul 21, 2007 NONE [id number] Edgar ARAMBULA [place] PHI MEDEX BRONZ E December 19, 2013 [id number] GUSTAVO ARAMBULA SR PATIENT [place] MEDICARE SUPPLEMEN PHI MEDEX BRONZ E December 19, 2013 [id number] Edgar ARAMBULA PATIENT MEDICARE (WNR) MEDICARE () PART A Oct 19, 2004 PART A [id number] [id number] Edgar ARAMBULA PATIENT MEDICARE (WNR) MEDICARE (M) PART B Oct 19, 2004 PART B [id number] Edgra ARAMBULA OHN PATIENT MEDICARE (WNR) MEDICARE () PART A Oct 19, 2004 PART A [id number] Edgar ARAMBULAN PATIENT MEDICARE (WNR) MEDICARE () PART B Oct 19, 2004 PART B [id number] [id number] Edgar ARAMBULAN PATIENT MEDICARE (WNR) MEDICARE () PART A Oct 19, 2004 PART A [id number] Edgar ARAMBULAN PATIENT MEDICARE (WNR) MEDICARE () PART B Oct 19, 2004 PART B [id number] Edgar ARAMBULAN PATIENT MEDICARE (WNR) MEDICARE () PART A Oct 19, 2004 PART A [id number] [phone] Edgar ARAMBULA PATIENT MEDICARE (WNR) MEDICARE () PART B Oct 19, 2004 PART B [id number] Edgar ARAMBULAN PATIENT MEDICARE (WNR) MEDICARE () PART A Oct 19, 2004 PART A [id number] Edgar ARAMBULAN PATIENT MEDICARE (WNR) MEDICARE () PART B Oct 19, 2004 PART B [id number] Edgar ARAMBULA PATIENT Selected Encounter This section includes the information on record at [place] for the Encounter. Date/Time Encounter Type Encounter Description Reason Pro vider Source Oct 19, 2023 12:00 AM Outpatient Encounter COMMUNITY CARE [...] 20 appointments. The data comes from all [place] treatment [facility]. Appointment Date/Time Appointment Type Appointme nt Facility Name Nov 06, 2023 09:30 AM AMBULATORY - MEDICINE [place] [facility] [place] [facility] December 21, 2023 09:00 AM AMBULATORY - PSYCHIATRY [facility] [place] [facility] December 25, 2023 09:00 AM [facility] Feb 05, 2024 10:00 AM AMBULATORY - MEDICINE [place] [facility] [place] [facility] Feb 13, 2024 11:30 AM AMBULATORY - MEDICINE [facility] Feb 15, 2024 09:00 AM AMBULATORY - PSYCHIATRY [place] [facility] [place] [facility] Feb 15, 2024 09:45 AM AMBULATORY - NONE [place] [facility] [place] [facility] Mar 07, 2024 09:00 AM AMBULATORY - PSYCHIATRY [place] [facility] [place] [facility] Mar 08, 2024 08:30 AM AMBULATORY - NONE [place] [facility] [place] [facility] Mar 11, 2024 09:00 AM AMBULATORY - MEDICINE [facility] Apr 04, 2024 11:00 AM AMBULATORY - PSYCHIATRY [place] [facility] [place] [facility] Apr 08, 2024 09:30 AM AMBULATORY - MEDICINE [place] [facility] [place] [facility] Apr 10, 2024 10:45 AM AMBULATORY - MEDICINE [place] [facility] [place] [facility] Active, Pending, and Scheduled Orders This section includes a listing of several types of active, pending, and scheduled orders, including clinic medications orders, diagnostic test orders, procedure orders and consult orders; where the start date of the order is 45 days before the date of the Encounter or 45 days after the date of theEncounter. The data comes from all [place] treatment [facility]. Test Date/Time Test Type Test Details Facility Name Sep 05, 2023 12:00 AM Laboratory - Chemi stry Order OCCULT BLOOD FIT X1 SCREEN(IN-HOUSE) STOOL FECES SP [place] [facility] [place] [facility] Sep 26, 2023 09:55 AM Consult Order [facility] Cons Rn Tra[facility] Social History: Smoking Status (Most current) and Tobacco Use (All prior to encounter date) This section includes the most current, and the historical, smoking and tobacco- related health factors from the [place] facility where the Encounter took place. Current Smoking Status This section includes the most current smoking, or tobacco-related health factor, from the [place] facility where the Encounter took place. Date/Time Current Smoking Status Comment [facility] it Dec 13, 2022 03:00 PM VA-TOBACCO USER EVERY DAY [place] [facility] [place] [facility] Tobacco Use History This section includes a history of the smoking, or tobacco-related health factors, that were collected on or before the date of the Encounter. The data comes from the [place] facility where the Encounter took place. 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 NO [facility] [place] [facility] Dec 13, 2022 03:00 PM VA-TOBACCO USE MED NO [facility] [place] [facility] Dec 13, 2022 03:00 PM VA-TOBACCO USER EVERY DAY [facility] [place] [facility] Nov 17, 2021 10:00 AM VA-TOBACCO USE 30 YEARS OR MORE [facility] [place] [facility] Nov 17, 2021 10:00 AM VA-TOBACCO USE ADVICE [facility] [place] [facility] Nov 17, 2021 10:00 AM 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 NO [facility] [place] [facility] Nov 17, 2021 10:00 AM VA-TOBACCO USE MED NO [facility] [place] [facility] Nov 17, 2021 10:00 AM VA-TOBACCO USE WI 30 MIN OF WAKEUP [facility] [place] [facility] Nov 17, 2021 10:00 AM VA-TOBACCO USER EVERY DAY [facility] [place] [facility] Oct 14, 2013 12:55 PM V1-PT NOT INTERESTED IN QUIT TOBACCO USE [facility] [place] [facility] May 07, 2013 05:04 PM CURRENT SMOKER trying to stop [facility] May 07, 2013 05:04 PM V1-PT DECLINES REF TO TOBACCO CESS PRGM [place] [facility] May 07, 2013 05:04 PM V1-PT DECLINES TOBACCO CESSATION MEDS [facility] May 07, 2013 05:04 PM V1-PT READY TO QUIT TOBACCO USE [facility] Dec 03, 2012 08:23 AM V1-PT DECLINES REF TO TOBACCO CESS PRGM [facility] Dec 03, 2012 08:23 AM V1-PT DECLINES TOBACCO CESSATION [facility] Dec 03, 2012 08:23 AM V1-PT THINKING ABOUT QUIT TOBACCO USE [facility] Jun 05, 2012 08:45 AM CURRENT SMOKER 1/2ppd [facility] Jun 05, 2012 08:45 AM V1-PT DECLINES REF TO TOBACCO CESS PRGM [facility] Jun 05, 2012 08:45 AM V1-PT THINKING ABOUT QUIT TOBACCO [facility] Jun 05, 2012 08:45 AM V1-TOBACCO CESS MEDS NOT PRESCRIBED Vet wants to talk to his provider-He is nervous about taking meds to quit- but he is interested in quitting [facility] Nov 25, 2011 09:14 AM V1-PT DECLINES REF TO TOBACCO CESS PRGM [facility] Nov 25, 2011 09:14 AM V1-PT DECLINES TOBACCO CESSATION MEDS [facility] Nov 25, 2011 09:14 AM V1-PT THINKING ABOUT QUIT TOBACCO [facility] May 06, 2011 01:02 PM CURRENT SMOKER [facility] [place] [facility] May 06, 2011 01:02 PM V1-PT DECLINES TOBACCO CESSATION MEDS [facility] May 06, 2011 01:02 PM V1-PT NOT INTERESTED IN QUIT TOBACCO USE [facility] [place] [facility] Sep 24, 2010 08:51 AM V1-PT DECLINES TOBACCO CESSATION MEDS [facility] [place] [facility] Sep 24, 2010 08:51 AM V1-PT THINKING ABOUT QUIT TOBACCO USE [facility] [place] [facility] Mar 22, 2010 07:58 AM CURRENT SMOKER 1/2 ppd [facility] [place] [facility] Feb 25, 2009 12:05 PM QUIT TOBACCO USE IN PAST YEAR [facility] [place] [facility] Aug 26, 2008 09:28 AM CURRENT SMOKER 1/2 ppd [facility] [place] [facility] Aug 26, 2008 09:28 AM V1-PT DECLINES REF TO TOBACCO CESS PRGM [place] [facility] [place] [facility] Aug 26, 2008 09:28 AM V1-PT READY TO QUIT TOBACCO USE [facility] [place] [facility] Dec 19, 2007 10:08 AM V1-PT DECLINES REF TO TOBACCO CESS PRGM [facility] [place] [facility] Dec 19, 2007 10:08 AM V1-PT DECLINES TOBACCO CESSATION MEDS [place] [facility] [place] [facility] Dec 19, 2007 10:08 AM V1-PT THINKING ABOUT QUIT TOBACCO USE [facility] [place] [facility] Sep 11, 2007 11:10 AM CURRENT SMOKER [facility] [place] [facility] Sep 11, 2007 11:10 AM V1-PT DECLINES REF TO TOBACCO CESS PRGM [facility] [place] [facility] Sep 11, 2007 11:10 AM V1-PT DECLINES TOBACCO CESSATION MEDS [facility] [place] [facility] Sep 11, 2007 11:10 AM V1-PT THINKING ABOUT QUIT TOBACCO USE [facility] [place] [facility] Feb 13, 2007 01:46 PM V1-PT DECLINES REF TO TOBACCO CESS PRGM [facility] [place] [facility] Feb 13, 2007 01:46 PM V1-PT DECLINES TOBACCO CESSATION MEDS [facility] [place] [facility] Feb 13, 2007 01:46 PM V1-PT THINKING ABOUT QUIT [facility]BACCO [facility] [place] [facility] Oct 02, 2006 08:28 AM QUIT TOBACCO USE IN PAST YEAR 3 months ago [facility] Aug 19, 2005 08:33 AM QUIT TOBACCO USE IN PAST YEAR nonsmoker [facility] WSN [facility] Sep 21, 2004 09:54 AM CURRENT SMOKER [facility] Sep 07, 2004 08:07 AM [facility] Sep 15, 2003 11:21 AM CURRENT SMOKER sm[facility] pk day [facility] Jul 23, 2003 01:57 PM CURRENT SMOKER [facility] Advance Directives: All historical and current Section Date Range: From patient's date of to the date document was created. This section includes ALL of a patient's completed or amended [place] Advance and Rescinded Directives. The entries below indicate that a directive exists for the patient, but an actual copy is not included with this document. The data comes from all [place] facilities. Date Advance Directives Provider Source Apr 10, 2023 ADVANCE DIRECTIVE [place] [facility] Apr 19, 2007 ADVANCE [facility] Radiology Reports: +/- 30 days [...] the Encounter. The data comes from all [place] treatment facilities. 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 attending: Nell Carrillo NP [place] Pager: [phone] Backup pager: History: chronic lumbar spine pain Report Status: Verified Date Reported: SEP 26, 2023 Date Verified: SEP 26, 2023 Operations General Agent E-Sig:/ES/CHERYLE GUZMAN JR Report: Study: AP, lateral [...] Primary Interpreting Staff: CHERYLE GUZMAN JR, Radiologist (Operations General Agent) /CHERYLE VALENCIA JR [place] [facility] [place] [facility] Sep 26, 2023 08:32 AM HIP 2-3 VIEWS (RIGHT) WITH OR WITHOUT PELVIS: GUSTAVO ARAMBULA [id number] -1940 M [facility] Date: SEP 26, 2023@08:32 Req Phys: NELL CARRILLO Loc: CWM/SO/PACT 7 (Req'g Loc) [facility] Loc: [facility] 1 Service: Unknown (Case [id number] COMPLETE) HIP 2-3 VIEWS (RIGHT) WITH OR WIT(RAD Detailed) CPT:50176 CPT Modifiers : RT RIGHT SIDE Reason for Study: hip pain Clinical History: 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, fellow, 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 Encounter Notes: All associated encounter notes This section contains the clinical notes associated to the Encounter. Date/Time Encounter Note(s) Provider Source Oct 19, 2023 12:00 AM NONVA CONSULT: LOCAL TITLE: COMMUNITY CARE-CONSULT RESULT NOTE STANDARD TITLE: NONVA CONSULT DATE OF NOTE: OCT 19, 2023 ENTRY DATE: OCT 31, 2023@13:00:23 AUTHOR: KONSTANTIN ELIZONDO EXP COSIGNER: URGENCY: STATUS: COMPLETED VistA Imaging - Scanned Document SCANNED DOCUMENT SIGNATURE NOT REQUIRED Electronically Filed: 10/31/2023 by: KONSTANTIN BONILLA [facility]
--- OUTSIDE RECORDS SUMMARY | 2024-08-16 09:30 | XMS_ITS ---
Author Name [facility] [place] [facility] [place] Address [address] [place] [address] Care Team Providers Care Patient Admitting Clerk Name Role Phone TRACY CARRILLO Primary Care [...] PHI MEDEX BRONZ E December 19, 2013 [id number] GUSTAVO ARAMBULA SR PATIENT [employer] CASUALTY MEDICARE SUPPLEMEN PHI MEDIC ARE SUPPL EMENT Jul 21, 2007 NONE [id number] [phone] Edgar ARAMBULA PATIENT [place] MED[place] SUPPLEMEN PHI MEDEX BRONZ E December 19, 2013 [id number] [phone] GUSTAVO ARAMBULA SR PATIENT [place] OF [place] ([place]) MEDICARE SUPPLEMEN PHI MEDEX BRONZ E December 19, 2013 [id number] Edgar ARAMBULA PATIENT MEDICARE (WNR) MEDICARE () PART A Oct 19, 2004 PART A [id number] Edgar ARAMBULA PATIENT MEDICARE (WNR) MEDICARE (M) PART B Oct 19, 2004 PART B [id number] [phone] Edgar ARAMBULA OHN PATIENT MEDICARE (WNR) MEDICARE () PART A Oct 19, 2004 PART A [id number] Edgar ARAMBULAN PATIENT MEDICARE (WNR) MEDICARE () PART B Oct 19, 2004 PART B [id number] Edgar ARABMULAN PATIENT MEDICARE (WNR) MEDICARE () PART A Oct 19, 2004 PART A [id number] [phone] [id number] Edgar ARAMBULAN PATIENT MEDICARE (WNR) MEDICARE () PART B Oct 19, 2004 PART B [id number] Edgar ARAMBULAN PATIENT MEDICARE (WNR) MEDICARE () PART A Oct 19, 2004 PART A [id number] Edgar ARAMBULA PATIENT MEDICARE (WNR) MEDICARE () PART B Oct 19, 2004 PART B [id number] Edgar ARAMBULAN PATIENT MEDICARE (WNR) MEDICARE () PART A Oct 19, 2004 PART A [id number] Edgar ARAMBULAN PATIENT MEDICARE (WNR) MEDICARE () PART B Oct 19, 2004 PART B [id number] Edgar ARAMBULA PATIENT Selected Encounter This section includes the information on record at [place] for the Encounter. Date/Time Encounter Type Encounter Description Reason Pro vider Source Sep 26, 2023 12:00 AM Outpatient Encounter COMMUNITY CARE [...] 20 appointments. The data comes from all [facility]. Appointment Date/Time Appointment Type Appointme nt Facility Name Oct 16, 2023 09:00 AM AMBULATORY [place]ICINE [place] [facility] [facility] Nov 06, 2023 09:30 AM AM[place]ULATORY [place]ICINE [place] [facility] December 21, 2023 09:00 AM AMBULATORY - PSYCHIATRY [place] [facility] [place] [facility] December 25, 2023 09:00 AM AMBULATORY - MEDICINE [facility] Feb 05, 2024 10:00 AM AMBULATORY - MEDICINE [place] [place] [facility] Feb 13, 2024 11:30 AM AMBULATORY - MEDICINE [facility] Feb 15, 2024 09:00 AM AMBULATORY - PS[place]CHIATRY [place] [facility] [facility] Feb 15, 2024 09:45 AM AMBULATORY - NONE [place] [facility] [place] [facility] Mar 07, 2024 09:00 AM AMBULATORY - PSYCHIATRY [place] [facility] [facility] Mar 08, 2024 08:30 AM AMBULATORY - NONE [place] [facility] [facility] Mar 11, 2024 09:00 AM AMBULATORY - MEDICINE [facility] Active, Pending, and Scheduled Orders This section includes a listing of several types of active, pending, and scheduled orders, including clinic medications orders, diagnostic test orders, procedure orders and consult orders; where the start date of the order is 45 days before the date of the Encounter or 45 days after the date of theEncounter. The data comes from all [facility]. Test Date/Time Test Type Test Details Facility Name Sep 05, 2023 12:00 AM Laboratory - Chemi stry Order OCCULT BLOOD FIT X1 SCREEN(IN-HOUSE) STOOL FECES SP [place] [facility] [facility] Sep 26, 2023 09:55 AM Consult Order [facility] GENERAL Cons Cigar Machine Feeder's Choice [place] Lab Results: +/- 30 days of the encounter This section includes the Chemistry and Hematology Lab Results on record with [place] for the patient. Radiology Reports and Pathology Reports are provided separately, in subsequent sections. Lab Results This section contains the Chemistry/Hematology Results that were resulted 30 days before or 30 daysafter the date of the Encounter. Date/Time Source Result Type Result - Unit Interpretation Reference Range Comment Sep 05, 2023 10:56 AM [facility] FERRITIN Specimen Type: SERUM No comment entered. Ordering Provider: YOAN CHILDS Report Released Date/Time: Sep 05, 2023 10:30 AM Reporting Lab: [facility] [address] [address] Performing Lab: [facility] [address] [address] FERRITIN 25 ng/mL 20-300 Sep 05, 2023 10:56 AM [facility] IRON & TIBC PANEL Specimen Type: SERUM No comment entered. Ordering Provider: YOAN CHILDS Report Released Date/Time: Sep 05, 2023 10:30 AM Reporting Lab: [facility] [address] [address] Performing Lab: [facility] [address] [address] TIBC 401 ug/dL 204-475 IRON 53 ug/dL 40-160 Transferrin Saturation 13.2 L 20.0-50.0 Sep 05, 2023 10:56 AM [facility] CBC AND DIFF (AUTO) Specimen Type: BLOOD No comment entered. Ordering Provider: YOAN CHILDS Report Released Date/Time: Sep 05, 2023 10:30 AM Reporting Lab: [facility] [address] [address] Performing Lab: [facility] [address] [address] WBC 5.66 10*3/uL 4.50-11.00 RBC 4.25 10*6/uL 4.23-5.66 HGB 12.1 g/dL L 12.8-17 HCT 35.5 L 39.2-50.4 MCV 83.5 fL 82-99 MCHC 34.1 g/dL 30.8-35.1 PLT 295 10*3/uL 140-360 RDW-CV 12.0 12.0-16.0 Mesa, Abs 0.59 10*3/uL 0.30-1.10 MCH 28.5 pg 26.2-32.6 Neut % 56.3 43.7-75.8 Lymph % 27.2 14.0-42.3 [place] % 10.4 5.1-13.7 Eos % 4.1 0.4-6.8 Baso % 1.6 0.1-2.0 Neut, Abs 3.19 10*3/uL 2.20-7.60 Lymph, Abs 1.54 10*3/uL 1.00-3.20 Eos, Abs 0.23 10*3/uL 0.03-0.44 Baso, Abs 0.09 10*3/uL 0.01-0.13 Immature Gran % 0.4 0.0-0.7 Immature Gran, Abs 0.02 10*3/uL 0.00-0.06 Sep 01, 2023 10:29 AM [facility] HEMOGLOBIN A1C PANEL Specimen Type: BLOOD Comment: [...] Aug 17, 2023 08:25 AM Reporting Lab: [facility] [address] [facility] [address] Performing Lab: [facility] [address] [facility] [address] HEMOGLOBIN A1C 6.7 H 4.0-5.6 Sep 01, 2023 10:29 AM [facility] LIPID PANEL FASTING Specimen Type: SERUM No comment entered. Ordering Provider: YULY AUSTIN Report Released Date/Time: Aug 17, 2023 08:25 AM Reporting Lab: [facility] [address] [facility] [address] Performing Lab: [facility] [address] [facility] [address] CHOLESTEROL 133 mg/dL TRIGLYCERIDE 73 mg/dL 0-150 LDL calculated 75 mg/dL 0-129 CHOL/HDL 3.1 HDL CHOLESTEROL 43 mg/dL 40-60 Sep 01, 2023 10:29 AM [facility] BASIC METABOLIC PANEL (fasting) Specimen Type: SERUM No comment entered. Ordering Provider: YULY AUSTIN Report Released Date/Time: Aug 17, 2023 08:25 AM Reporting Lab: [facility] [address] [address] Performing Lab: [address] [address] U[place]A NITROGEN 10 mg/dL 7-25 GLUCOSE 135 mg/dL H 65-100 SODIUM 138 mmol/L 135-145 POTASSIUM 3.9 mmol/L 3.5-5.0 CHLORIDE 101 mmol/L 100-110 CO2 27 meq/L 20-30 CREATININE, Serum 0.73 mg/dL 0.50-1.40 eGFR(CKD-EPI 2020) 90 mL/min >60 Sep 01, 2023 10:29 AM [facility] LIVER FUNCTION Specimen Type: SERUM No comment entered. Ordering Provider: YULY AUSTIN Report Released Date/Time: Aug 17, 2023 08:25 AM Reporting Lab: [facility] [address] [address] Performing Lab: [facility] [address] PROTEIN,TOTAL 6.9 g/dL 6.0-8.3 ALBUMIN 3.8 g/dL 3.5-5.0 ALKALINE PHOSPHATASE 91 U/L 40-150 AST 14 U/L 5-34 ALT 13 U/L BILIRUBIN, TOTAL 0.5 mg/dL 0.2-1.2 Sep 01, 2023 10:29 AM [facility] MICROALBUMIN CREATININE RATIO PANEL Specimen Type: URINE No comment entered. Ordering Provider: AHMED,MOHAMMED JAWED Report Released Date/Time: Aug 17, 2023 08:25 AM Reporting Lab: [facility] [address] [facility] [address] Performing Lab: [facility] [address] [facility] [address] MICROALBUMIN/C REATININE RATIO 9.0 mg/g 0-29.9 MICROALBUMIN,Q UANTITATIVE 1.0 mg/dL RR UNAVAIL CREATININE URINE 110.79 mg/dL Sep 01, 2023 10:29 AM [facility] CBC AND DIFF (AUTO) Specimen Type: BLOOD No comment entered. Ordering Provider: YULY AUSTIN Report Released Date/Time: Aug 17, 2023 08:25 AM Reporting Lab: [facility] [address] [facility] [address] Performing Lab: [facility] [address] [facility] [address] WBC 8.35 10*3/uL 4.50-11.00 RBC 4.17 10*6/uL L 4.23-5.66 HGB 12.0 g/dL L 12.8-17 HCT 35.3 L 39.2-50.4 MCV 84.7 fL 82-99 MCHC 34.0 g/dL 30.8-35.1 PLT 305 10*3/uL 140-360 RDW-CV 12.3 12.0-16.0 Mesa, Abs 0.71 10*3/uL 0.30-1.10 MCH 28.8 pg 26.2-32.6 Neut % 66.3 43.7-75.8 Lymph % 20.8 14.0-42.3 [place] % 8.5 5.1-13.7 Eos % 3.0 0.4-6.8 [...] 2022 03:00 PM VA-TOBACCO USER EVERY DAY [place] [facility] [facility] Tobacco Use History This section includes a history of the smoking, or tobacco-related health factors, that were collected on or before the date of the Encounter. The data comes from the [place] facility where the Encounter took place. 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 [facility] [place] [facility] Dec 13, 2022 03:00 PM VA-TOBACCO USE MED NO [facility] [place] [facility] Dec 13, 2022 03:00 PM VA-TOBACCO USER EVERY DAY [facility] [place] [facility] Nov 17, 2021 10:00 AM VA-TOBACCO USE 30 YEARS OR MORE [facility] [place] [facility] Nov 17, 2021 10:00 AM VA-TOBACCO USE ADVICE [facility] [place] [facility] Nov 17, 2021 10:00 AM 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 [facility] [place] [facility] Nov 17, 2021 10:00 AM VA-TOBACCO USE MED NO [facility] [place] [facility] Nov 17, 2021 10:00 AM VA-TOBACCO USE [place] 30 MIN OF WAKEUP [facility] [place] [facility] Nov 17, 2021 10:00 AM VA-TOBACCO USER EVERY DAY [facility] [place] [facility] Oct 14, 2013 12:55 PM V1-PT NOT INTERESTED IN QUIT TOBACCO USE [facility] [place] [facility] May 07, 2013 05:04 PM CURRENT SMOKER trying to stop [facility] May 07, 2013 05:04 PM V1-PT DECLINES REF TO TOBACCO CESS PRGM [facility] May 07, 2013 05:04 PM V1-PT DECLINES TOBACCO CESSATION MEDS [facility] May 07, 2013 05:04 PM V1-PT READY TO QUIT TOBACCO USE [facility] Dec 03, 2012 08:23 AM V1-PT DECLINES REF TO TOBACCO CESS PRGM [facility] Dec 03, 2012 08:23 AM V1-PT DECLINES TOBACCO CESSATION MEDS [facility] Dec 03, 2012 08:23 AM V1-PT THINKING ABOUT QUIT TOBACCO USE [facility] Jun 05, 2012 08:45 AM CURRENT SMOKER 1/2ppd [facility] [facility] Jun 05, 2012 08:45 AM V1-PT DECLINES REF TO TOBACCO CESS PRGM [facility] [place] [facility] Jun 05, 2012 08:45 AM V1-PT THINKING ABOUT QUIT TOBACCO USE [facility] Jun 05, 2012 08:45 AM V1-TOBACCO CESS MEDS NOT PRESCRIBED Vet wants to talk to his provider-He is nervous about taking meds to quit- but he is interested in quitting [facility] Nov 25, 2011 09:14 AM V1-PT DECLINES REF TO TOBACCO CESS PRGM [facility] Nov 25, 2011 09:14 AM V1-PT DECLINES TOBACCO CESSATION MEDS [facility] Nov 25, 2011 09:14 AM V1-PT THINKING ABOUT QUIT TOBACCO USE [facility] May 06, 2011 01:02 PM CUR[facility]MOKER [facility] May 06, 2011 01:02 PM V1-PT DECLINES TOBACCO CESSATION MEDS [facility] May 06, 2011 01:02 PM V1-PT NOT INTERESTED IN QUIT TOBACCO USE [facility] [place] [place] [facility] Sep 24, 2010 08:51 AM V1-PT DECLINES TOBACCO CESSATION MEDS [facility] [place] [facility] Sep 24, 2010 08:51 AM V1-PT THINKING ABOUT QUIT TOBACCO USE [facility] [place] [facility] Mar 22, 2010 07:58 AM CURRENT SMOKER 1/2 ppd [facility] [place] [facility] Feb 25, 2009 12:05 PM QUIT TOBACCO USE IN PAST YEAR [facility] [place] [facility] Aug 26, 2008 09:28 AM CURRENT SMOKER 1/2 ppd [facility] [place] [facility] Aug 26, 2008 09:28 AM V1-PT DECLINES REF TO TOBACCO CESS PRGM [facility] [place] [facility] Aug 26, 2008 09:28 AM V1-PT READY TO QUIT TOBACCO USE [facility] [place] [facility] Dec 19, 2007 10:08 AM V1-PT DECLINES REF TO TOBACCO CESS PRGM [facility] [place] [facility] Dec 19, 2007 10:08 AM V1-PT DECLINES TOBACCO CESSATION MEDS [place] [facility] [place] [facility] Dec 19, 2007 10:08 AM V1-PT THINKING ABOUT QUIT TOBACCO USE [facility] [place] [facility] Sep 11, 2007 11:10 AM CURRENT SMOKER [facility] [place] [facility] Sep 11, 2007 11:10 AM V1-PT DECLINES REF TO TOBACCO CESS PRGM [facility] [place] [facility] Sep 11, 2007 11:10 AM V1-PT DECLINES TOBACCO CESSATION MEDS [facility] [place] [facility] Sep 11, 2007 11:10 AM V1-PT THINKING ABOUT QUIT TOBACCO USE [facility] [place] [facility] Feb 13, 2007 01:46 PM V1-PT DECLINES REF TO TOBACCO CESS PRGM [facility] [place] [facility] Feb 13, 2007 01:46 PM V1-PT DECLINES TOBACCO CESSATION MEDS [facility] [place] [facility] Feb 13, 2007 01:46 PM V1-PT THINKING ABOUT QUIT TOBACCO USE [facility] [place] [facility] Oct 02, 2006 08:28 AM QUIT TOBACCO USE IN PAST YEAR 3 months ago [facility] WSN [facility] Aug 19, 2005 08:33 AM QUIT TOBACCO USE IN PAST YEAR nonsmoker [facility] WSN [facility] Sep 21, 2004 09:54 AM CURRENT SMOKER [facility] Sep 07, 2004 08:07 AM CURRENT SMOKER [facility] WSN [facility] Sep 15, 2003 11:21 AM CURRENT SMOKER smokes one pk day [facility] Jul 23, 2003 01:57 PM CURRENT SMOKER [facility] Advance Directives: All historical and [...] Source Apr 10, 2023 ADVANCE DIRECTIVE LINCOLNESSIE [facility] W GAUDENCION [facility] Apr 19, 2007 ADVANCE DIRECTIVE VICTORIA [facility]YALE [facility] Radiology Reports: +/- 30 days of [...] Loc: CWM/SO/PACT 7 (Req'g Loc) Img Loc: [facility] 1 Service: Unknown (Case 86 COMPLETE) SPINE LUMBOSACRAL MIN 2 VIEWS (RAD Detailed) CPT:60646 Reason for Study: lumbar pain Clinical History: 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, fellow, GUSSET RIPPER or attending: Tracy Carrillo NP [place] Pager: [phone] Backup pager: History: chronic lumbar spine pain Report Status: Verified Date Reported: SEP 26, 2023 Date Verified: SEP 26, 2023 Touring Production Manager E-Sig:/ES/CHERYLE GUZMAN JR Report: Study: AP, lateral [...] Primary Interpreting Staff: CHERYLE GUZMAN JR, Radiologist (Touring Production Manager) /CHERYLE VALENCIA JR [place] [facility] [facility] Sep 26, 2023 08:32 AM HIP 2-3 VIEWS (RIGHT) WITH OR WITHOUT PELVIS: GUSTAVO ARAMBULA -1940 M [facility] Date: SEP 26, 2023@08:32 Req Phys: TRACY CARRILLO Pat Loc: CWM/SO/PACT 7 (Req'g Loc) Img Loc: [facility] 1 Service: Unknown (Case 85 COMPLETE) HIP 2-3 VIEWS (RIGHT) WITH OR WIT(RAD Detailed) CPT:84503 CPT Modifiers : RT RIGHT SIDE Reason for Study: hip pain Clinical History: 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, fellow, GUSSET RIPPER or attending: Tracy Carrillo NP [place] Pager: [phone] Backup pager: History: chronic right hip pain, hx CAROL ANN Report Status: Verified Date Reported: SEP 26, 2023 Date Verified: SEP 26, 2023 Touring Production Manager E-Sig:/ES/CHERYLE GUZMAN JR Report: Study: AP view [...] Primary Interpreting Staff: CHERYLE GUZMAN JR, Radiologist (Touring Production Manager) /CHERYLE VALENCIA JR [facility] Sep 05, 2023 11:05 AM HIP 2-3 VIEWS(LEFT) WITH OR WITHOUT PELVIS: GUSTAVO ARAMBULA -1940 M Exm Date: SEP 05, 2023@11:05 Req Phys: DANIELE CHILDS Pat Loc: CWM/NO/PACT/FIRM GUSSET RIPPER (Req'g Loc Img Loc: [facility] 1 Service: Unknown (Case 18 COMPLETE) HIP 2-3 VIEWS(LEFT) WITH OR WITHO(RAD Detailed) CPT:47776 Proc Modifiers : LEFT CPT Modifiers : LT LEFT SIDE Reason for Study: chronic left hip pain Clinical History: Report Status: Verified Date Reported: SEP 05, 2023 Date Verified: SEP 05, 2023 Touring Production Manager E-Sig:/ES/CHERYLE GUZMAN JR Report: Study: AP view [...] Primary Interpreting Staff: CHERYLE GUZMAN JR, Radiologist (Touring Production Manager) /CHERYLE VALENCIA JR [facility] Encounter Notes: All associated encounter notes This section contains the clinical notes associated to the Encounter. Date/Time Encounter Note(s) Provider Source Sep 26, 2023 12:00 AM NONVA CONSULT: LOCAL TITLE: COMMUNITY CARE-CONSULT RESULT NOTE STANDARD TITLE: NONVA CONSULT DATE OF NOTE: SEP 26, 2023 ENTRY DATE: OCT 11, 2023@11:00:27 AUTHOR: YASEMIN LYNN COSIGNER: URGENCY: STATUS: COMPLETED VistA Imaging - Scanned Document SCANNED DOCUMENT SIGNATURE NOT REQUIRED Electronically Filed: 10/11/2023 by: YASEMIN LYNN AUTOMOTIVE QUALITY ENGINEER YASEMIN LYNN [place] [facility]
--- OUTSIDE RECORDS SUMMARY | 2024-08-16 09:30 | XMS_ITS | Encounter Summary ---
Author Name [facility] Organization [facility] Address [address] [place] [address] Care Team Providers Care Case Mgr Name Role Phone TRACY CARRILLO Primary Care [...] PHI MEDEX BRONZ E December 19, 2013 [id number] [phone] GUSTAVO ARAMBULA SR PATIENT [employer] MEDICARE SUPPLEMEN PHI MEDIC ARE SUPPL EMENT Jul 21, 2007 NONE [id number] Edgar ARAMBULA PATIENT [place] MEDIC[place] SUPPLEMEN PHI MEDEX BRONZ E December 19, 2013 [id number] GUSTAVO ARAMBULA SR PATIENT [place] MEDICARE SUPPLEMEN PHI MEDEX BRONZ E December 19, 2013 [id number] Edgar ARAMBULAN PATIENT MEDICARE (WNR) MEDICARE () PART A Oct 19, 2004 PART A [id number] Edgar ARAMBULA [place] PATIENT MEDICARE ([place]NR) MEDICARE (M) PART B Oct 19, 2004 PART B [id number] Edgar ARAMBULA [place] PATIENT MEDICARE ([place]NR) MEDICARE () PART A Oct 19, 2004 PART A [id number] [id number] Edgar ARAMBULA [place] PATIENT MEDICARE (WNR) MEDICARE () PART B Oct 19, 2004 PART B [id number] Edgar ARAMBULA [place] PATIENT MEDICARE ([place]NR) MEDICARE () PART B Oct 19, 2004 PART B [id number] [id number] Edgar ARAMBULA [place] PATIENT MEDICARE (WNR) MEDICARE () PART A Oct 19, 2004 PART A [id number] [id number] Edgar ARAMBULA [place] PATIENT MEDICARE (WNR) MEDICARE () PART A Oct 19, 2004 PART A [id number] Edgar ARAMBULAN PATIENT MEDICARE (WNR) MEDICARE () PART B Oct 19, 2004 PART B [id number] [id number] Edgar ARAMBULA [place] PATIENT MEDICARE (WNR) MEDICARE () PART A Oct 19, 2004 PART A [id number] Edgar ARAMBULAN PATIENT MEDICARE (WNR) MEDICARE () PART B Oct 19, 2004 PART B [id number] Edgar ARAMBULAN PATIENT Selected Encounter This section includes the information on record at [place] for the Encounter. Date/Time Encounter Type Encounter Description Reason Provider Source Sep 26, 2023 09:57 AM Outpatient Encounter PRIMARY CARE/MEDICINE TRACY CARRILLO Encounter Template Text not used by [place] Plan of Treatment: Future Appointments (+ 6 [...] 20 appointments. The data comes from all [facility]. Appointment Date/Time Appointment Type Appointme nt Facility Name Oct 16, 2023 09:00 AM AMBULATORY - MEDICINE [place] [facility] Nov 06, 2023 09:30 AM AMBULATORY - MEDICINE [place] [place] [facility] December 21, 2023 09:00 AM AMBULATORY - [facility] December 25, 2023 09:00 AM AM[facility]ULATORY [facility] MED[facility] Feb 05, 2024 10:00 AM AMBULATORY - MEDICINE [place] [facility] Feb 13, 2024 11:30 AM AMBULATORY [facility] MED[facility] Feb 15, 2024 09:00 AM AMBULATORY - [facility] Feb 15, 2024 09:45 AM AMBULATORY - NONE [facility] Mar 07, 2024 09:00 AM AMBULATORY - PSYCHIATRY [place] [facility] Mar 08, 2024 08:30 AM [facility] Mar 11, 2024 09:00 AM [facility] Active, Pending, and Scheduled Orders This section includes a listing of several types of active, pending, and scheduled orders, including clinic medications orders, diagnostic test orders, procedure orders and consult orders; where the start date of the order is 45 days before the date of the Encounter or 45 days after the date of theEncounter. The data comes from all [facility]. Test Date/Time Test Type Test Details Facility Name Sep 05, 2023 12:00 AM Laboratory - Chemi stry Order OCCULT BLOOD FIT X1 SCREEN(IN-HOUSE) STOOL FECES SP [place] [facility] [facility] Sep 26, 2023 09:55 AM Consult Order [facility] GENER[facility] Production Maintenance Technician[facility] [place] Lab Results: +/- 30 days of the encounter This section includes the Chemistry and Hematology Lab Results on record with [place] for the patient. Radiology Reports and Pathology Reports are provided separately, in subsequent sections. Lab Results This section contains the Chemistry/Hematology Results that were resulted 30 days before or 30 daysafter the date of the Encounter. Date/Time Source Result Type Result - Unit Interpretation Reference Range Comment Sep 05, 2023 10:56 AM [facility] FERRITIN Specimen Type: SERUM No comment entered. Ordering Provider: YOAN CHILDS Report Released Date/Time: Sep 05, 2023 10:30 AM Reporting Lab: [facility] [address] [facility] [address] Performing Lab: [facility] [address] FERRITIN 25 ng/mL 20-300 Sep 05, 2023 10:56 AM [facility] IRON & TIBC PANEL Specimen Type: SERUM No comment entered. Ordering Provider: YOAN CHILDS Report Released Date/Time: Sep 05, 2023 10:30 AM Reporting Lab: [facility] [address] [facility] [address] Performing Lab: [facility] [address] TIBC 401 ug/dL 204-475 IRON 53 ug/dL 40-160 Transferrin Saturation 13.2 L 20.0-50.0 Sep 05, 2023 10:56 AM [facility] CBC AND DIFF (AUTO) Specimen Type: BLOOD No comment entered. Ordering Provider: YOAN CHILDS Report Released Date/Time: Sep 05, 2023 10:30 AM Reporting Lab: [facility] [address] [address] Performing Lab: [facility] [address] [address] WBC 5.66 10*3/uL 4.50-11.00 RBC 4.25 10*6/uL 4.23-5.66 HGB 12.1 g/dL L 12.8-17 HCT 35.5 L 39.2-50.4 MCV 83.5 fL 82-99 MCHC 34.1 g/dL 30.8-35.1 PLT 295 10*3/uL 140-360 RDW-CV 12.0 12.0-16.0 Emmet, Abs 0.59 10*3/uL 0.30-1.10 MCH 28.5 pg 26.2-32.6 Neut % 56.3 43.7-75.8 Lymph % 27.2 14.0-42.3 Emmet % 10.4 5.1-13.7 Eos % 4.1 0.4-6.8 Baso % 1.6 0.1-2.0 Neut, Abs 3.19 10*3/uL 2.20-7.60 Lymph, Abs 1.54 10*3/uL 1.00-3.20 Eos, Abs 0.23 10*3/uL 0.03-0.44 Baso, Abs 0.09 10*3/uL 0.01-0.13 Immature Gran % 0.4 0.0-0.7 Immature Gran, Abs 0.02 10*3/uL 0.00-0.06 Sep 01, 2023 10:29 AM [facility] HEMOGLOBIN A1C PANEL Specimen Type: BLOOD Comment: [...] Aug 17, 2023 08:25 AM Reporting Lab: [address] [address] Performing Lab: [address] [address] HEMOGLOBIN A1C 6.7 H 4.0-5.6 Sep 01, 2023 10:29 AM [facility] LIPID PANEL FASTING Specimen Type: SERUM No comment entered. Ordering Provider: YULY AUSTIN Report Released Date/Time: Aug 17, 2023 08:25 AM Reporting Lab: [address] [place] [address] Performing Lab: [facility] [address] [facility] [address] CHOLESTEROL 133 mg/dL TRIGLYCERIDE 73 mg/dL 0-150 LDL calculated 75 mg/dL 0-129 CHOL/HDL 3.1 HDL CHOLESTEROL 43 mg/dL 40-60 Sep 01, 2023 10:29 AM [facility] BASIC METABOLIC PANEL (fasting) Specimen Type: SERUM No comment entered. Ordering Provider: YULY AUSTIN Report Released Date/Time: Aug 17, 2023 08:25 AM Reporting Lab: [address] [address] Performing Lab: [address] [address] UREA NITROGEN 10 mg/dL 7-25 GLUCOSE 135 mg/dL H 65-100 SODIUM 138 mmol/L 135-145 POTASSIUM 3.9 mmol/L 3.5-5.0 CHLORIDE 101 mmol/L 100-110 CO2 27 meq/L 20-30 CREATININE, Serum 0.73 mg/dL 0.50-1.40 eGFR(CKD-EPI 2020) 90 mL/min >60 Sep 01, 2023 10:29 AM [facility] LIVER FUNCTION Specimen Type: SERUM No comment entered. Ordering Provider: YULY AUSTIN Report Released Date/Time: Aug 17, 2023 08:25 AM Reporting Lab: [address] [address] Performing Lab: [address] [address] PROTEIN,TOTAL 6.9 g/dL 6.0-8.3 ALBUMIN 3.8 g/dL 3.5-5.0 ALKALINE PHOSPHATASE 91 U/L 40-150 AST 14 U/L 5-34 ALT 13 U/L BILIRUBIN, TOTAL 0.5 mg/dL 0.2-1.2 Sep 01, 2023 10:29 AM [facility] MICROALBUMIN CREATININE RATIO PANEL Specimen Type: URINE No comment entered. Ordering Provider: YULY AUSTIN Report Released Date/Time: Aug 17, 2023 08:25 AM Reporting Lab: [facility] [address] [facility] [address] Performing Lab: [facility] [address] [address] MICROALBUMIN/C REATININE RATIO 9.0 mg/g 0-29.9 MICROALBUMIN,Q UANTITATIVE 1.0 mg/dL RR UNAVAIL CREATININE URINE 110.79 mg/dL Sep 01, 2023 10:29 AM [facility] CBC AND DIFF (AUTO) Specimen Type: BLOOD No comment entered. Ordering Provider: YULY AUSTIN Report Released Date/Time: Aug 17, 2023 08:25 AM Reporting Lab: [facility] [address] [facility] [address] Performing Lab: [address] [address] WBC 8.35 10*3/uL 4.50-11.00 RBC 4.17 10*6/uL L 4.23-5.66 HGB 12.0 g/dL L 12.8-17 HCT 35.3 L 39.2-50.4 MCV 84.7 fL 82-99 MCHC 34.0 g/dL 30.8-35.1 PLT 305 10*3/uL 140-360 RDW-CV 12.3 12.0-16.0 Emmet, Abs 0.71 10*3/uL 0.30-1.10 MCH 28.8 pg 26.2-32.6 Neut % 66.3 43.7-75.8 Lymph % 20.8 14.0-42.3 Emmet % 8.5 5.1-13.7 Eos % 3.0 0.4-6.8 [...] and tobacco- related health factors from the [place] facility where the Encounter took place. Current Smoking Status This section includes the most current smoking, or tobacco-related health factor, from the [place] facility where the Encounter took place. Date/Time Current Smoking Status Comment [facility] it Dec 13, 2022 03:00 PM VA-TOBACCO DOESNT USE WI 30 MIN WAKEUP [facility] Tobacco Use History This section includes a history of the smoking, or tobacco-related health factors, that were collected on or before the date of the Encounter. The data comes from the [place] facility where the Encounter took place. Date/Time Smoking Status/Tobac co Use Comment [facility] Dec 13, 2022 03:00 PM VA-TOBACCO USE 30 YEARS OR MORE [facility] [place] [facility] Dec 13, 2022 03:00 PM VA-TOBACCO USE ADVICE [facility] [place] [facility] Dec 13, 2022 03:00 PM VA-TOBACCO USE CARD GRADER NO [facility] [place] [facility] Dec 13, 2022 03:00 PM VA-TOBACCO USE MED NO [facility] [place] [facility] Dec 13, 2022 03:00 PM VA-TOBACCO USER EVERY DAY [facility] [place] [facility] Nov 17, 2021 10:00 AM VA-TOBACCO USE 30 YEARS OR MORE [facility] [place] [facility] Nov 17, 2021 10:00 AM VA-TOBACCO USE ADVICE [facility] [place] [facility] Nov 17, 2021 10:00 AM VA-TOBACCO USE CARD GRADER NO [facility] [place] [facility] Nov 17, 2021 10:00 AM VA-TOBACCO USE MED NO [facility] [place] [facility] Nov 17, 2021 10:00 AM VA-TOBACCO USE WI 30 MIN OF WAKEUP [facility] [place] [facility] Nov 17, 2021 10:00 AM VA-TOBACCO USER EVERY DAY [facility] [place] [facility] Oct 14, 2013 12:55 PM V1-PT NOT INTERESTED IN QUIT TOBACCO USE [place] [place] [facility] May 07, 2013 05:04 PM CURRENT SMOKER trying to stop [facility] [place] [facility] May 07, 2013 05:04 PM V1-PT DECLINES REF TO TOBACCO CESS PRGM [facility] May 07, 2013 05:04 PM V1-PT DECLINES TOBACCO CESSATION MEDS [facility] May 07, 2013 05:04 PM V1-PT READY TO QUIT TOBACCO USE [facility] Dec 03, 2012 08:23 AM V1-PT DECLINES REF TO TOBACCO CESS PRGM [facility] Dec 03, 2012 08:23 AM V1-PT DECLINES TOBACCO CESSATION MEDS [facility] Dec 03, 2012 08:23 AM V1-PT THINKING ABOUT QUIT TOBACCO USE [facility] [place] [facility] Jun 05, 2012 08:45 AM CURRENT SMOKER 1/2ppd [facility] Jun 05, 2012 08:45 AM V1-PT DECLINES REF TO TOBACCO CESS PRGM [facility] Jun 05, 2012 08:45 AM V1-PT THINKING ABOUT QUIT TOBACCO USE [facility] Jun 05, 2012 08:45 AM V1-TOBACCO CESS MEDS NOT PRESCRIBED Vet wants to talk to his provider-He is nervous about taking meds to quit- but he is interested in quitting [facility] Nov 25, 2011 09:14 AM V1-PT DECLINES REF TO TOBACCO CESS PRGM [facility] Nov 25, 2011 09:14 AM V1-PT DECLINES TOBACCO CESSATION MEDS [facility] Nov 25, 2011 09:14 AM V1-PT THINKING ABOUT QUIT TOBACCO USE [facility] [place] [facility] May 06, 2011 01:02 PM CURRENT SMOKER [facility] [place] [facility] May 06, 2011 01:02 PM V1-PT DECLINES TOBACCO CESSATION MEDS [facility] May 06, 2011 01:02 PM V1-PT NOT INTERESTED IN QUIT TOBACCO USE [facility] [place] [facility] Sep 24, 2010 08:51 AM V1-PT DECLINES TOBACCO CESSATION MEDS [facility] [place] [facility] Sep 24, 2010 08:51 AM V1-PT THINKING ABOUT QUIT TOBACCO USE [facility] [place] [facility] Mar 22, 2010 07:58 AM CURRENT SMOKER 1/2 ppd [facility] [place] [facility] Feb 25, 2009 12:05 PM QUIT TOBACCO USE IN PAST YEAR [facility] [place] [facility] Aug 26, 2008 09:28 AM CURRENT SMOKER 1/2 ppd [facility] [place] [facility] Aug 26, 2008 09:28 AM V1-PT DECLINES REF TO TOBACCO CESS PRGM [facility] [place] [facility] Aug 26, 2008 09:28 AM V1-PT READY TO QUIT TOBACCO USE [facility] [place] [facility] Dec 19, 2007 10:08 AM V1-PT DECLINES REF TO TOBACCO CESS PRGM [facility] [place] [facility] Dec 19, 2007 10:08 AM V1-PT DECLINES TOBACCO CESSATION MEDS [facility] [place] [facility] Dec 19, 2007 10:08 AM V1-PT THINKING ABOUT QUIT TOBACCO USE [facility] [place] [facility] Sep 11, 2007 11:10 AM CURRENT SMOKER [facility] [place] [place] [facility] Sep 11, 2007 11:10 AM V1-PT DECLINES REF TO TOBACCO CESS PRGM [facility] [place] [facility] Sep 11, 2007 11:10 AM V1-PT DECLINES TOBACCO CESSATION MEDS [facility] [place] [facility] Sep 11, 2007 11:10 AM V1-PT THINKING ABOUT QUIT TOBACCO USE [facility] [place] [facility] Feb 13, 2007 01:46 PM V1-PT DECLINES REF TO TOBACCO CESS PRGM [facility] [place] [facility] Feb 13, 2007 01:46 PM V1-PT DECLINES TOBACCO CESSATION MEDS [facility] [place] [facility] Feb 13, 2007 01:46 PM V1-PT THINKING ABOUT QUIT TOBACCO USE [facility] Oct 02, 2006 08:28 AM QUIT TOBACCO USE IN PAST YEAR 3 months ago [facility] Aug 19, 2005 08:33 AM QUIT TOBACCO USE IN PAST YEAR nonsmoker [facility] Sep 21, 2004 09:54 AM CURRENT SMOKER [facility] Sep 07, 2004 08:07 AM CURRENT SMOKER [facility] Sep 15, 2003 11:21 AM CURRENT SMOKER smokes one pk day [facility] Jul 23, 2003 01:57 PM CURRENT SMOKER [facility] Advance Directives: All historical and current Section Date Range: From patient's date of to the date document was created. This section includes ALL of a patient's completed or amended [place] Advance and Rescinded Directives. The entries below indicate that a directive exists for the patient, but an actual copy is not included with this document. The data comes from all [place] facilities. Date Advance Directives Provider Source Apr 10, 2023 ADVANCE DIRECTIVE ESSIE STARK [facility] Apr 19, 2007 ADVANCE DIRECTIVE VICTORIA JOHNSON [facility] Radiology Reports: +/- 30 days of [...] the Encounter. The data comes from all [place] treatment facilities. Date/Time Radiology Report Provider Source Sep 26, 2023 08:32 AM SPINE LUMBOSACRAL MIN 2 VIEWS: GUSTAVO ARAMBULA -1940 M Exm Date: SEP 26, 2023@08:32 Req Phys: TRACY CARRILLO Loc: CWM/SO/PACT 7 (Req'g Loc) Img Loc: [facility] 1 Service: Unknown (Case [id number] COMPLETE) SPINE LUMBOSACRAL MIN 2 VIEWS (RAD Detailed) CPT:68912 Reason for Study: lumbar pain Clinical History: 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, fellow, FOREST TECHNICIAN or attending: Tracy Carrillo NP [facility] Pager: [phone] Backup pager: History: chronic lumbar spine pain Report Status: Verified Date Reported: SEP 26, 2023 Date Verified: SEP 26, 2023 Behavioral Sciences Department Chair E-Sig:/ES/CHERYLE GUZMAN JR Report: Study: AP, lateral [...] Primary Interpreting Staff: CHERYLE GUZMAN JR, Radiologist (Behavioral Sciences Department Chair) /CHERYLE VALENCIA JR [facility] Sep 26, 2023 08:32 AM HIP 2-3 VIEWS (RIGHT) WITH OR WITHOUT PELVIS: GUSTAVO ARAMBULA -1940 M [facility] Date: SEP 26, 2023@08:32 Req Phys: TRACY CARRILLO Pat Loc: CWM/SO/PACT 7 (Req'g Loc) [facility] Loc: [facility] 1 Service: Unknown (Case [id number] COMPLETE) HIP 2-3 VIEWS (RIGHT) WITH OR WIT(RAD Detailed) CPT:59482 CPT Modifiers : RT RIGHT SIDE Reason for Study: hip pain Clinical History: 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, fellow, FOREST TECHNICIAN or attending: Tracy Carrillo NP [facility] Pager: [phone] Backup pager: History: chronic right hip pain, hx CAROL ANN Report Status: Verified Date Reported: SEP 26, 2023 Date Verified: SEP 26, 2023 Behavioral Sciences Department Chair E-Sig:/ES/CHERYLE GUZMAN JR Report: Study: AP view [...] Primary Interpreting Staff: CHERYLE GUZMAN JR, Radiologist (Behavioral Sciences Department Chair) /CHERYLE VALENCIA JR [facility] Sep 05, 2023 11:05 AM HIP 2-3 VIEWS(LEFT) WITH OR WITHOUT PELVIS: GUSTAVO ARAMBULA -1940 M Exm Date: SEP 05, 2023@11:05 Req Phys: DANIELE CHILDS Pat Loc: CWM/NO/PACT/FIRM FOREST TECHNICIAN (Req'g Loc Img Loc: [facility] 1 Service: Unknown (Case 18 COMPLETE) HIP 2-3 VIEWS(LEFT) WITH OR WITHO(RAD Detailed) CPT:46645 Proc Modifiers : LEFT CPT Modifiers : LT LEFT SIDE Reason for Study: chronic left hip pain Clinical History: Report Status: Verified Date Reported: SEP 05, 2023 Date Verified: SEP 05, 2023 Behavioral Sciences Department Chair E-Sig:/ES/CHERYLE GUZMAN JR Report: Study: AP view [...] Primary Interpreting Staff: CHERYLE GUZMAN JR, Radiologist (Behavioral Sciences Department Chair) /CHERYLE VALENCIA JR [facility] Encounter Notes: All associated encounter notes This section contains the clinical notes associated to the Encounter. Date/Time Encounter Note(s) Provider Source Sep 26, 2023 09:57 AM PRIMARY CARE SECUR E MESSAGING: LOCAL TITLE: PRIMARY CARE SECURE MESSAGING STANDARD TITLE: PRIMARY CARE SECURE MESSAGING DATE OF NOTE: SEP 26, 2023@09:57 ENTRY DATE: SEP 26, 2023@09:57:44 AUTHOR: TRACY CARRILLO EXP COSIGNER: URGENCY: STATUS: COMPLETED ------Original Message ------- Sent: 09/26/2023 09:57 AM ET From: TRACY CARRILLO To: GUSTAVO ARAMBULA Subject: Test:Test results I have your Xray results. 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 I have made a referral to an orthopedist for you. Tracy Carrillo, MSN, ENDOSCOPIC TECHNICIAN [place] Primary Care Nurse Practitioner /es/ TRACY CARRILLO APRN-C CERTIFIED NURSE PRACTITIONER Signed: 09/26/2023 09:57 TRACY CARRILLO [facility]
--- OUTSIDE RECORDS SUMMARY | 2024-08-16 09:30 | XMS_ITS | Encounter Summary ---
Author Name [facility] Address [address] [place] [address] Care Team Providers Care Health Sciences Department Chair Name Role Phone TRACY CARRILLO Primary Care [...] PHI MEDEX BRONZ E December 19, 2013 [id number] [phone] GUSTAVO ARAMBULA SR PATIENT [employer]UAL[employer] MEDICARE SUPPLEMEN PHI MEDIC ARE SUPPL EMENT Jul 21, 2007 NONE [id number] Edgar ARAMBULA [place]IENT [place] SUPPLEMEN PHI MEDEX BRONZ E December 19, 2013 [id number] GUSTAVO ARAMBULA SR PATIENT [place] ([place] MEDICARE SUPPLEMEN PHI MEDEX BRONZ E December 19, 2013 [id number] [phone] Edgar ARAMBULA PATIENT MEDICARE (WNR) MEDICARE () PART A Oct 19, 2004 PART A [id number] Edgar ARAMBULA PATIENT MEDICARE (WNR) MEDICARE (M) PART B Oct 19, 2004 PART B [id number] Edgar ARAMBULA [place] PATIENT MEDICARE (WNR) MEDICARE () PART A Oct 19, 2004 PART A [id number] Edgar ARAMBULAN PATIENT MEDICARE (WNR) MEDICARE () PART B Oct 19, 2004 PART B [id number] Edgar ARAMBULAN PATIENT MEDICARE (WNR) MEDICARE () PART A Oct 19, 2004 PART A [id number] [phone] Edgar ARAMBULAN PATIENT MEDICARE (WNR) MEDICARE () PART B Oct 19, 2004 PART B [id number] Edgar ARAMBULAN PATIENT MEDICARE (WNR) MEDICARE () PART A Oct 19, 2004 PART A [id number] Edgar ARAMBULA PATIENT MEDICARE (WNR) MEDICARE () PART B Oct 19, 2004 PART B [id number] [phone] Edgar ARAMBULAN PATIENT MEDICARE (WNR) MEDICARE () PART A Oct 19, 2004 PART A [id number] Edgar ARAMBULAN PATIENT MEDICARE (WNR) MEDICARE () PART B Oct 19, 2004 PART B [id number] [phone] Edgar ARAMBULA PATIENT Selected Encounter This section includes the information on record at [place] for the Encounter. Date/Time Encounter Type Encounter Description Reason Pro vider Source Sep 26, 2023 03:36 PM Outpatient Encounter COMMUNITY CARE CONSULT IHE [...] 20 appointments. The data comes from all [facility]. Appointment Date/Time Appointment Type Appointme nt Facility Name Oct 16, 2023 09:00 AM AMBULATORY - MEDICINE [place] [facility] [place] [facility] Nov 06, 2023 09:30 AM AMBULATORY - MEDICINE [place] [facility] [place] [facility] December 21, 2023 09:00 AM AMBULATORY - PSYCHIATRY [place] [facility] [place] [facility] December 25, 2023 09:00 AM AMBULATORY - MEDICINE [facility] Feb 05, 2024 10:00 AM AMBULATORY - MEDICINE [place] [facility] [place] [facility] Feb 13, 2024 11:30 AM AMBULATORY - MEDICINE [facility] Feb 15, 2024 09:00 AM AMBULATORY - PSYCHIATRY [place] [facility] [place] [facility] Feb 15, 2024 09:45 AM AMBULATORY - NONE [place] [facility] [place] [facility] Mar 07, 2024 09:00 AM AMBULATORY - PSYCHIATRY [place] [facility] [place] [facility] Mar 08, 2024 08:30 AM AMBULATORY - NONE [place] [facility] [place] [facility] Mar 11, 2024 09:00 AM [facility] Active, Pending, and Scheduled Orders This section includes a listing of several types of active, pending, and scheduled orders, including clinic medications orders, diagnostic test orders, procedure orders and consult orders; where the start date of the order is 45 days before the date of the Encounter or 45 days after the date of theEncounter. The data comes from all [facility]. Test Date/Time Test Type Test Details Facility Name Sep 05, 2023 12:00 AM Laboratory - Chemi stry Order OCCULT BLOOD FIT X1 SCREEN(IN-HOUSE) STOOL FECES SP [place] [facility] [place] [facility] Sep 26, 2023 09:55 AM Consult Order COMMUNITY [facility] GENER[facility] Cons Shirt Ironer Supervisor's Choice [facility] Lab Results: +/- 30 days of the encounter This section includes the Chemistry and Hematology Lab Results on record with [place] for the patient. Radiology Reports and Pathology Reports are provided separately, in subsequent sections. Lab Results This section contains the Chemistry/Hematology Results that were resulted 30 days before or 30 daysafter the date of the Encounter. Date/Time Source Result Type Result - Unit Interpretation Reference Range Comment Sep 05, 2023 10:56 AM [facility] FERRITIN Specimen Type: SERUM No comment entered. Ordering Provider: YOAN CHILDS Report Released Date/Time: Sep 05, 2023 10:30 AM Reporting Lab: [facility] [address] [address] Performing Lab: [facility] [address] [address] FERRITIN 25 ng/mL 20-300 Sep 05, 2023 10:56 AM [facility] IRON & TIBC PANEL Specimen Type: SERUM No comment entered. Ordering Provider: YOAN CHILDS Report Released Date/Time: Sep 05, 2023 10:30 AM Reporting Lab: [facility] [address] [address] Performing Lab: [facility] [address] [address] TIBC 401 ug/dL 204-475 IRON 53 ug/dL 40-160 Transferrin Saturation 13.2 L 20.0-50.0 Sep 05, 2023 10:56 AM [facility] CBC AND DIFF (AUTO) Specimen Type: BLOOD No comment entered. Ordering Provider: YOAN CHILDS Report Released Date/Time: Sep 05, 2023 10:30 AM Reporting Lab: [facility] [address] [address] Performing Lab: [facility] [address] [address] WBC 5.66 10*3/uL 4.50-11.00 RBC 4.25 10*6/uL 4.23-5.66 HGB 12.1 g/dL L 12.8-17 HCT 35.5 L 39.2-50.4 MCV 83.5 fL 82-99 MCHC 34.1 g/dL 30.8-35.1 PLT 295 10*3/uL 140-360 RDW-CV 12.0 12.0-16.0 Dooly, Abs 0.59 10*3/uL 0.30-1.10 MCH 28.5 pg 26.2-32.6 Neut % 56.3 43.7-75.8 Lymph % 27.2 14.0-42.3 Dooly % 10.4 5.1-13.7 Eos % 4.1 0.4-6.8 Baso % 1.6 0.1-2.0 Neut, Abs 3.19 10*3/uL 2.20-7.60 Lymph, Abs 1.54 10*3/uL 1.00-3.20 Eos, Abs 0.23 10*3/uL 0.03-0.44 Baso, Abs 0.09 10*3/uL 0.01-0.13 Immature Gran % 0.4 0.0-0.7 Immature Gran, Abs 0.02 10*3/uL 0.00-0.06 Sep 01, 2023 10:29 AM [facility] LIPID PANEL FASTING Specimen Type: SERUM No comment entered. Ordering Provider: YULY AUSTIN Report Released Date/Time: Aug 17, 2023 08:25 AM Reporting Lab: [address] [address] Performing Lab: [address] [address] CHOLESTEROL 133 mg/dL TRIGLYCERIDE 73 mg/dL 0-150 LDL calculated 75 mg/dL 0-129 CHOL/HDL 3.1 HDL CHOLESTEROL 43 mg/dL 40-60 Sep 01, 2023 10:29 AM [facility] HEMOGLOBIN A1C PANEL Specimen Type: BLOOD Comment: Values obtained from A1C measurements can vary. For atypical A1C assays, a reported value of 7.0 could actually be between 6.72 and 7.28 if measured by a reference method. A reported value of 9.0 could actually be between 8.73 and 9.27. Ref: http://www.ngs p.org/CAPdata. asp Ordering Provider: YULY ASUTIN Report Released Date/Time: Aug 17, 2023 08:25 AM Reporting Lab: [facility] [address] [facility] [address] Performing Lab: [facility] [address] [address] HEMOGLOBIN A1C 6.7 H 4.0-5.6 Sep 01, 2023 10:29 AM [facility] BASIC METABOLIC PANEL (fasting) Specimen Type: SERUM No comment entered. Ordering Provider: YULY AUSTIN Report Released Date/Time: Aug 17, 2023 08:25 AM Reporting Lab: [address] [address] Performing Lab: [address] [address] UREA NITROGEN 10 mg/dL 7-25 GLUCOSE 135 mg/dL H 65-100 SODIUM 138 mmol/L 135-145 POTASSIUM 3.9 mmol/L 3.5-5.0 CHLORIDE 101 mmol/L 100-110 CO2 27 meq/L 20-30 CREATININE, Serum 0.73 mg/dL 0.50-1.40 eGFR(CKD-EPI 2020) 90 mL/min >60 Sep 01, 2023 10:29 AM [facility] LIVER FUNCTION Specimen Type: SERUM No comment entered. Ordering Provider: YULY AUSTIN Report Released Date/Time: Aug 17, 2023 08:25 AM Reporting Lab: [address] [address] Performing Lab: [address] [address] PROTEIN,TOTAL 6.9 g/dL 6.0-8.3 ALBUMIN 3.8 g/dL 3.5-5.0 ALKALINE PHOSPHATASE 91 U/L 40-150 AST 14 U/L 5-34 ALT 13 U/L BILIRUBIN, TOTAL 0.5 mg/dL 0.2-1.2 Sep 01, 2023 10:29 AM [facility] MICROALBUMIN CREATININE RATIO PANEL Specimen Type: URINE No comment entered. Ordering Provider: AHMED,MOHAMMED JAWED Report Released Date/Time: Aug 17, 2023 08:25 AM Reporting Lab: [facility] [address] [facility] [address] Performing Lab: [facility] [address] [facility] [address] MICROALBUMIN/C REATININE RATIO 9.0 mg/g 0-29.9 MICROALBUMIN,Q UANTITATIVE 1.0 mg/dL RR UNAVAIL CREATININE URINE 110.79 mg/dL Sep 01, 2023 10:29 AM [facility] CBC AND DIFF (AUTO) Specimen Type: BLOOD No comment entered. Ordering Provider: YULY AUSTIN Report Released Date/Time: Aug 17, 2023 08:25 AM Reporting Lab: [facility] [address] [facility] [address] Performing Lab: [facility] [address] [facility] [address] WBC 8.35 10*3/uL 4.50-11.00 RBC 4.17 10*6/uL L 4.23-5.66 HGB 12.0 g/dL L 12.8-17 HCT 35.3 L 39.2-50.4 MCV 84.7 fL 82-99 MCHC 34.0 g/dL 30.8-35.1 PLT 305 10*3/uL 140-360 RDW-CV 12.3 12.0-16.0 Dooly, Abs 0.71 10*3/uL 0.30-1.10 MCH 28.8 pg 26.2-32.6 Neut % 66.3 43.7-75.8 Lymph % 20.8 14.0-42.3 Dooly % 8.5 5.1-13.7 Eos % 3.0 0.4-6.8 [...] and tobacco- related health factors from the [place] facility where the Encounter took place. Current Smoking Status This section includes the most current smoking, or tobacco-related health factor, from the [place] facility where the Encounter took place. Date/Time Current Smoking Status Comment [facility] it Dec 13, 2022 03:00 PM VA-TOBACCO USE ADVICE [place] [facility] [place] [facility] Tobacco Use History This section includes a history of the smoking, or tobacco-related health factors, that were collected on or before the date of the Encounter. The data comes from the [place] facility where the Encounter took place. 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 [facility] [place] [facility] Dec 13, 2022 03:00 PM VA-TOBACCO USE MED NO [facility] [place] [facility] Dec 13, 2022 03:00 PM VA-TOBACCO USER EVERY DAY [facility] [place] [facility] Nov 17, 2021 10:00 AM VA-TOBACCO USE 30 YEARS OR MORE [facility] [place] [facility] Nov 17, 2021 10:00 AM VA-TOBACCO USE ADVICE [facility] [place] [facility] Nov 17, 2021 10:00 AM VA-TOBACCO USE 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 May 07, 2013 05:04 PM CURRENT SMOKER trying to stop [facility] May 07, 2013 05:04 PM V1-PT DECLINES REF TO TOBACCO CESS PRGM [facility] May 07, 2013 05:04 PM V1-PT DECLINES TOBACCO CESSATION MEDS [facility] May 07, 2013 05:04 PM V1-PT READY TO QUIT TOBACCO USE [facility] Dec 03, 2012 08:23 AM V1-PT DECLINES REF TO TOBACCO CESS PRGM [facility] Dec 03, 2012 08:23 AM V1-PT DECLINES TOBACCO CESSATION MEDS [facility] Dec 03, 2012 08:23 AM V1-PT THINKING ABOUT QUIT TOBACCO USE [facility] Jun 05, 2012 08:45 AM CURRENT SMOKER 1/2ppd [facility] Jun 05, 2012 08:45 AM V1-PT DECLINES REF TO TOBACCO CESS PRGM [facility] Jun 05, 2012 08:45 AM V1-PT THINKING ABOUT QUIT TOBACCO USE [facility] Jun 05, 2012 08:45 AM V1-TOBACCO CESS MEDS NOT PRESCRIBED Vet wants to talk to his provider-He is nervous about taking meds to quit- but he is interested in quitting [facility] Nov 25, 2011 09:14 AM V1-PT DECLINES REF TO TOBACCO CESS PRGM [facility] Nov 25, 2011 09:14 AM V1-PT DECLINES TOBACCO CESSATION MEDS [facility]IAN[facility]RN [facility] Nov 25, 2011 09:14 AM V1-PT THINKING ABOUT QUIT TOBACCO USE [facility] May 06, 2011 01:02 PM CURRENT SMOKER [facility] May 06, 2011 01:02 PM V1-PT DECLINES TOBACCO CESSATION MEDS [facility] May 06, 2011 01:02 PM V1-PT NOT INTERESTED IN QUIT TOBACCO USE [facility] [place] [facility] Sep 24, 2010 08:51 AM V1-PT DECLINES TOBACCO CESSATION MEDS [facility] [place] [facility] Sep 24, 2010 08:51 AM V1-PT THINKING ABOUT QUIT TOBACCO USE [facility] [place] [facility] Mar 22, 2010 07:58 AM CURRENT SMOKER 1/2 ppd [facility] [place] [facility] Feb 25, 2009 12:05 PM QUIT TOBACCO USE IN PAST YEAR [facility] [place] [facility] Aug 26, 2008 09:28 AM CURRENT SMOKER 1/2 ppd [facility] [place] [facility] Aug 26, 2008 09:28 AM V1-PT DECLINES REF TO TOBACCO CESS PRGM [facility] [place] [facility] Aug 26, 2008 09:28 AM V1-PT READY TO QUIT TOBACCO USE [facility] [place] [facility] Dec 19, 2007 10:08 AM V1-PT DECLINES REF TO TOBACCO CESS PRGM [facility] [place] [facility] Dec 19, 2007 10:08 AM V1-PT DECLINES TOBACCO CESSATION MEDS [place] [facility] [place] [facility] Dec 19, 2007 10:08 AM V1-PT THINKING ABOUT QUIT TOBACCO USE [facility] [place] [facility] Sep 11, 2007 11:10 AM CURRENT SMOKER [facility] [place] [facility] Sep 11, 2007 11:10 AM V1-PT DECLINES REF TO TOBACCO CESS PRGM [facility] [place] [facility] Sep 11, 2007 11:10 AM V1-PT DECLINES TOBACCO CESSATION MEDS [facility] [place] [facility] Sep 11, 2007 11:10 AM V1-PT THINKING ABOUT QUIT TOBACCO USE [facility] [place] [facility] Feb 13, 2007 01:46 PM V1-PT DECLINES REF TO TOBACCO CESS PRGM [facility] [place] [facility] Feb 13, 2007 01:46 PM V1-PT DECLINES TOBACCO CESSATION MEDS [facility] [place] [facility] Feb 13, 2007 01:46 PM V1-PT THINKING ABOUT QUIT TOBACCO USE [facility] [place] [facility] Oct 02, 2006 08:28 AM QUIT TOBACCO USE IN PAST YEAR 3 months ago [facility] Aug 19, 2005 08:33 AM QUIT TOBACCO USE IN PAST YEAR nonsmoker [facility] Sep 21, 2004 09:54 AM CURRENT SMOKER [facility] Sep 07, 2004 08:07 AM CURRENT SMOKER [facility] Sep 15, 2003 11:21 AM CURRENT SMOKER smokes one pk day [facility] Jul 23, 2003 01:57 PM CURRENT SMOKER [facility] Advance Directives: All historical and current Section Date Range: From patient's date of to the date document was created. This section includes ALL of a patient's completed or amended [place] Advance and Rescinded Directives. The entries below indicate that a directive exists for the patient, but an actual copy is not included with this document. The data comes from all [place] facilities. Date Advance Directives Provider Source Apr 10, 2023 ADVANCE DIRECTIVE GEORGEESSIE DOZIER [facility] Apr 19, 2007 AD[facility]ANCE [facility] Radiology Reports: +/- 30 days [...] the Encounter. The data comes from all [place] treatment facilities. 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 or attending: Tracy Carrillo NP [place] Pager: [phone] Backup pager: History: chronic lumbar spine pain Report Status: Verified Date Reported: SEP 26, 2023 Date Verified: SEP 26, 2023 Technical Aid E-Sig:/ES/CHERYLE GUZMAN JR Report: Study: AP, lateral [...] Primary Interpreting Staff: CHERYLE GUZMAN JR, Radiologist (Technical Aid) /CHERYLE VALENCIA JR [place] [facility] [place] [facility] Sep 26, 2023 08:32 AM HIP 2-3 VIEWS (RIGHT) WITH OR WITHOUT PELVIS: GUSTAVO ARAMBULA -1940 M [facility] Date: SEP 26, 2023@08:32 Req Phys: TRACY CARRILLO Pat Loc: CWM/SO/PACT 7 (Req'g Loc) Img Loc: [facility] 1 Service: Unknown (Case [id number] COMPLETE) HIP 2-3 VIEWS (RIGHT) WITH OR WIT(RAD Detailed) CPT:78234 CPT Modifiers : RT RIGHT SIDE Reason for Study: hip pain Clinical History: 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, fellow, 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 ROUTER or attending: Tracy Carrillo NP [facility] Pager: [phone] Backup pager: History: chronic right hip pain, hx CAROL ANN Report Status: Verified Date Reported: SEP 26, 2023 Date Verified: SEP 26, 2023 Technical Aid E-Sig:/ES/CHERYLE GUZMAN JR Report: Study: AP view [...] Primary Interpreting Staff: CHERYLE GUZMAN JR, Radiologist (Technical Aid) /CHERYLE VALENCIA JR [facility] Sep 05, 2023 11:05 AM HIP 2-3 VIEWS(LEFT) WITH OR WITHOUT PELVIS: GUSTAVO ARAMBULA -1940 M Exm Date: SEP 05, 2023@11:05 Req Phys: DANIELE CHILDS Pat Loc: CWM/NO/PACT/FIRM WOOD ROUTER (Req'g Loc Img Loc: [facility] 1 Service: Unknown (Case [id number] COMPLETE) HIP 2-3 VIEWS(LEFT) WITH OR WITHO(RAD Detailed) CPT:64497 Proc Modifiers : LEFT CPT Modifiers : LT LEFT SIDE Reason for Study: chronic left hip pain Clinical History: Report Status: Verified Date Reported: SEP 05, 2023 Date Verified: SEP 05, 2023 [employer] E-Sig:/ES/CHERYLE GUZMAN JR Report: Study: AP view [...] Primary Interpreting Staff: CHERYLE GUZMAN JR, Radiologist (Technical Aid) /CHERYLE VALENCIA JR [facility] Encounter Notes: All associated encounter notes This section contains the clinical notes associated to the Encounter. Date/Time Encounter Note(s) Provider Source Sep 26, 2023 03:36 PM ADMINISTRATIVE NOTE: LOCAL TITLE: ADMINISTRATIVE NOTE STANDARD TITLE: ADMINISTRATIVE NOTE DATE OF NOTE: SEP 26, 2023@15:36 ENTRY DATE: SEP 26, 2023@15:36:17 AUTHOR: LISA DE ANDA COSIGNER: URGENCY: STATUS: COMPLETED PVU CALLING REQUESTING A NEW CONSULT FOR HE HAD LABS DONE TODAY AND APPT WITH PROVIDER TMRO APPT-09/27/2023 @ 9:30AM REASON ---CT W/ F/U [facility] [address] [facility] [address] [phone] TAX ID#[id number] NPI#[id number] IF PCP AGREES PLEASE ENTER NEW CONSULT /reginaldo/ LISA SMITH Signed: 09/26/2023 15:37 Receipt Acknowledged By: 09/26/2023 15:43 /es/ DARLENE BOX CERTIFIED NURSE PRACTITIONER 09/26/2023 15:49 /es/ KAPIL COLLIER,RN-BC REGISTERED NURSE (RN) LISA DE ANDA CN[facility]L [facility] CENTERBalwinder [facility]
--- OUTSIDE RECORDS SUMMARY | 2024-08-16 09:30 | XMS_ITS | Encounter Summary ---
Author Name [facility] [place] [facility] [place] [facility] [place] Address [address] [place] [address] Care Team Providers Care Trading Analyst Name Role Phone NELL CARRILLO Primary Care [...] PHI MEDEX BRONZ E December 19, 2013 [id number] [phone] GUSTAVO ARAMBULA SR PATIENT [employer] MEDICARE SUPPLEMEN PHI MEDIC ARE SUPPL EMENT Jul 21, 2007 NONE [id number] Edgar ARAMBULA PATIENT [place] MED[place] SUPPLEMEN PHI MEDEX BRONZ E December 19, 2013 [id number] GUSTAVO ARAMBULA SR PATIENT [place] MEDICARE SUPPLEMEN PHI MEDEX BRONZ E December 19, 2013 [id number] [phone] Edgar ARAMBULA PATIENT MEDICARE (WNR) MEDICARE () PART A Oct 19, 2004 PART A [id number] Edgar ARAMBULA PATIENT MEDICARE (WNR) MEDICARE (M) PART B Oct 19, 2004 PART B [id number] Edgar ARAMBULAN PATIENT MEDICARE (WNR) MEDICARE () PART A Oct 19, 2004 PART A [id number] [phone] Edgar ARAMBULAN PATIENT MEDICARE (WNR) MEDICARE () PART B Oct 19, 2004 PART B [id number] Edgar ARAMBULAN PATIENT MEDICARE (WNR) MEDICARE () PART B Oct 19, 2004 PART B [id number] [phone] Edgar ARAMBULAN PATIENT MEDICARE (WNR) MEDICARE () PART A Oct 19, 2004 PART A [id number] Edgar ARAMBULAN PATIENT MEDICARE (WNR) MEDICARE () PART A Oct 19, 2004 PART A [id number] [phone] Edgar ARAMBULA PATIENT MEDICARE (WNR) MEDICARE () PART B Oct 19, 2004 PART B [id number] Edgar ARAMBULAN PATIENT MEDICARE (WNR) MEDICARE () PART A Oct 19, 2004 PART A [id number] Edgar ARAMBULAN PATIENT MEDICARE (WNR) MEDICARE () PART B Oct 19, 2004 PART B [id number] [phone] Edgar ARAMBULA PATIENT Selected Encounter This section includes the information on record at [place] for the Encounter. Date/Time Encounter Type Encounter Description Reason Pro vider Source Sep 27, 2023 12:00 AM Outpatient Encounter COMMUNITY CARE [...] 20 appointments. The data comes from all [facility]. Appointment Date/Time Appointment Type Appointme nt Facility Name Oct 16, 2023 09:00 AM [place] [facility] [place] [facility] Nov 06, 2023 09:30 AM [place] [facility] [place] [facility] December 21, 2023 09:00 AM AMBULATORY [place] [facility] [place] [facility] December 25, 2023 09:00 AM AMBULATORY - MEDICINE [facility] Feb 05, 2024 10:00 AM [place]IC[place] [facility] [place] [facility] Feb 13, 2024 11:30 AM AMBULATORY - MEDICINE [facility] Feb 15, 2024 09:00 AM AMBULATORY [place]AT[place] [facility] [place] [facility] Feb 15, 2024 09:45 AM AMBULATORY - NONE [place] [facility] [place] [facility] Mar 07, 2024 09:00 AM AMBULATORY [place]IATRY [place] [facility] [place] [facility] Mar 08, 2024 08:30 AM AMBULATORY - NONE [place] [facility] [place] [facility] Mar 11, 2024 09:00 AM [...] of theEncounter. The data comes from all [facility]. Test Date/Time Test Type Test Details Facility Name Sep 05, 2023 12:00 AM Laboratory - Chemi stry Order OCCULT BLOOD FIT X1 SCREEN(IN-HOUSE) STOOL FECES SP [place] [facility] [place] [facility] Sep 26, 2023 09:55 AM Consult Order COMMUNITY [facility] Cons Supervisor Twisting Department's Choice [place] Lab Results: +/- 30 days of the [...] Range Comment Sep 05, 2023 10:56 AM [facility] FERRITIN Specimen Type: SERUM No comment entered. Ordering Provider: YOAN CHILDS Report Released Date/Time: Sep 05, 2023 10:30 AM Reporting Lab: [facility] [address] [address] Performing Lab: [facility] [address] [address] FERRITIN 25 ng/mL 20-300 Sep 05, 2023 10:56 AM [facility] IRON & TIBC PANEL Specimen Type: SERUM No comment entered. Ordering Provider: YOAN CHILDS Report Released Date/Time: Sep 05, 2023 10:30 AM Reporting Lab: [facility] [address] [address] Performing Lab: [facility] [address] [address] TIBC 401 ug/dL 204-475 IRON 53 ug/dL 40-160 Transferrin Saturation 13.2 L 20.0-50.0 Sep 05, 2023 10:56 AM [facility] CBC AND DIFF (AUTO) Specimen Type: BLOOD No comment entered. Ordering Provider: YOAN CHILDS Report Released Date/Time: Sep 05, 2023 10:30 AM Reporting Lab: [facility] [address] [address] Performing Lab: [facility] [address] [address] WBC 5.66 10*3/uL 4.50-11.00 RBC 4.25 10*6/uL 4.23-5.66 HGB 12.1 g/dL L 12.8-17 HCT 35.5 L 39.2-50.4 MCV 83.5 fL 82-99 MCHC 34.1 g/dL 30.8-35.1 PLT 295 10*3/uL 140-360 RDW-CV 12.0 12.0-16.0 [place], Abs 0.59 10*3/uL 0.30-1.10 MCH 28.5 pg 26.2-32.6 Neut % 56.3 43.7-75.8 Lymph % 27.2 14.0-42.3 [place] % 10.4 5.1-13.7 Eos % 4.1 0.4-6.8 Baso % 1.6 0.1-2.0 Neut, Abs 3.19 10*3/uL 2.20-7.60 Lymph, Abs 1.54 10*3/uL 1.00-3.20 Eos, Abs 0.23 10*3/uL 0.03-0.44 Baso, Abs 0.09 10*3/uL 0.01-0.13 Immature Gran % 0.4 0.0-0.7 Immature Gran, Abs 0.02 10*3/uL 0.00-0.06 Sep 01, 2023 10:29 AM [facility] HEMOGLOBIN A1C PANEL Specimen Type: BLOOD [...] Aug 17, 2023 08:25 AM Reporting Lab: [facility] [address] [facility] [address] Performing Lab: [facility] [address] [facility] [address] HEMOGLOBIN A1C 6.7 H 4.0-5.6 Sep 01, 2023 10:29 AM [facility] LIPID PANEL FASTING Specimen Type: SERUM No comment entered. Ordering Provider: YULY AUSTIN Report Released Date/Time: Aug 17, 2023 08:25 AM Reporting Lab: [facility] [address] [facility] [address] Performing Lab: [facility] [address] [facility] [address] CHOLESTEROL 133 mg/dL TRIGLYCERIDE 73 mg/dL 0-150 LDL calculated 75 mg/dL 0-129 CHOL/HDL 3.1 HDL CHOLESTEROL 43 mg/dL 40-60 Sep 01, 2023 10:29 AM [facility] BASIC METABOLIC PANEL (fasting) Specimen Type: SERUM No comment entered. Ordering Provider: YULY AUSTIN Report Released Date/Time: Aug 17, 2023 08:25 AM Reporting Lab: [facility] [address] [address] Performing Lab: [address] [address] UREA NITROGEN 10 mg/dL 7-25 GLUCOSE 135 mg/dL H 65-100 SODIUM 138 mmol/L 135-145 POTASSIUM 3.9 mmol/L 3.5-5.0 CHLORIDE 101 mmol/L 100-110 CO2 27 meq/L 20-30 CREATININE, Serum 0.73 mg/dL 0.50-1.40 eGFR(CKD-EPI 2020) 90 mL/min >60 Sep 01, 2023 10:29 AM [facility] LIVER FUNCTION Specimen Type: SERUM No comment entered. Ordering Provider: YULY AUSTIN Report Released Date/Time: Aug 17, 2023 08:25 AM Reporting Lab: [facility] [address] [address] Performing Lab: [facility] [address] PROTEIN,TOTAL 6.9 g/dL 6.0-8.3 ALBUMIN 3.8 g/dL 3.5-5.0 ALKALINE PHOSPHATASE 91 U/L 40-150 AST 14 U/L 5-34 ALT 13 U/L BILIRUBIN, TOTAL 0.5 mg/dL 0.2-1.2 Sep 01, 2023 10:29 AM [facility] MICROALBUMIN CREATININE RATIO PANEL Specimen Type: URINE No comment entered. Ordering Provider: AHMED,MOHAMMED JAWED Report Released Date/Time: Aug 17, 2023 08:25 AM Reporting Lab: [facility] [address] [facility] [address] Performing Lab: [facility] [address] [facility] [address] MICROALBUMIN/C REATININE RATIO 9.0 mg/g 0-29.9 MICROALBUMIN,Q UANTITATIVE 1.0 mg/dL RR UNAVAIL CREATININE URINE 110.79 mg/dL Sep 01, 2023 10:29 AM [facility] CBC AND DIFF (AUTO) Specimen Type: BLOOD No comment entered. Ordering Provider: YULY AUSTIN Report Released Date/Time: Aug 17, 2023 08:25 AM Reporting Lab: [facility] [address] [facility] [address] Performing Lab: [facility] [address] [facility] [address] WBC 8.35 10*3/uL 4.50-11.00 RBC 4.17 10*6/uL L 4.23-5.66 HGB 12.0 g/dL L 12.8-17 HCT 35.3 L 39.2-50.4 MCV 84.7 fL 82-99 MCHC 34.0 g/dL 30.8-35.1 PLT 305 10*3/uL 140-360 RDW-CV 12.3 12.0-16.0 [place], Abs 0.71 10*3/uL 0.30-1.10 MCH 28.8 pg 26.2-32.6 Neut % 66.3 43.7-75.8 Lymph % 20.8 14.0-42.3 [place] % 8.5 5.1-13.7 Eos % 3.0 0.4-6.8 [...] VA-TOBACCO DOESNT USE WI 30 MIN WAKEUP [place] [facility] [facility] Tobacco Use History This section includes a history of the smoking, or tobacco-related health factors, that were collected on or before the date of the Encounter. The data comes from the [place] facility where the Encounter took place. 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 NO [facility] [place] [facility] Dec 13, 2022 03:00 PM VA-TOBACCO USE MED NO [facility] [place] [facility] Dec 13, 2022 03:00 PM VA-TOBACCO USER EVERY DAY [facility] [place] [facility] Nov 17, 2021 10:00 AM VA-TOBACCO USE 30 YEARS OR MORE [facility] [place] [facility] Nov 17, 2021 10:00 AM VA-TOBACCO USE ADVICE [facility] [place] [facility] Nov 17, 2021 10:00 AM VA-TOBACCO USE UPHOLSTERY AUTO TRIMMER NO [facility] [place] [facility] Nov 17, 2021 10:00 AM VA-TOBACCO USE MED NO [facility] [place] [facility] Nov 17, 2021 10:00 AM VA-TOBACCO USE WI 30 MIN OF WAKEUP [facility] [place] [facility] Nov 17, 2021 10:00 AM VA-TOBACCO USER EVERY DAY [facility] [place] [facility] Oct 14, 2013 12:55 PM V1-PT NOT INTERESTED IN QUIT TOBACCO [facility] [place] [facility] May 07, 2013 05:04 PM CURRENT SMOKER trying to stop [facility] May 07, 2013 05:04 PM V1-PT DECLINES REF TO TOBACCO CESS PRGM [facility] May 07, 2013 05:04 PM V1-PT DECLINES TOBACCO CESSATION MEDS [facility] May 07, 2013 05:04 PM V1-PT READY TO QUIT TOBACCO USE [facility] Dec 03, 2012 08:23 AM V1-PT DECLINES REF TO TOBACCO CESS PRGM [facility] Dec 03, 2012 08:23 AM V1-PT DECLINES TOBACCO CESSATION MEDS [facility] Dec 03, 2012 08:23 AM V1-PT THINKING ABOUT QUIT TOBACCO USE [facility] Jun 05, 2012 08:45 AM CURRENT SMOKER 1/2ppd [facility] Jun 05, 2012 08:45 AM V1-PT DECLINES REF TO TOBACCO CESS PRGM [facility] Jun 05, 2012 08:45 AM V1-PT THINKING ABOUT QUIT TOBACCO USE [facility] Jun 05, 2012 08:45 AM V1-TOBACCO CESS MEDS NOT PRESCRIBED Vet wants to talk to his provider-He is nervous about taking meds to quit- but he is interested in quitting [facility] Nov 25, 2011 09:14 AM V1-PT DECLINES REF TO TOBACCO CESS PRGM [facility] Nov 25, 2011 09:14 AM V1-PT DECLINES TOBACCO CESSATION MEDS [facility] Nov 25, 2011 09:14 AM V1-PT THINKING ABOUT QUIT TOBACCO USE [facility] May 06, 2011 01:02 [address]MOKER [facility]TR[facility] May 06, 2011 01:02 PM V1-PT DECLINES TOBACCO CESSATION MEDS [facility] [place] [place] [facility] May 06, 2011 01:02 PM V1-PT NOT INTERESTED IN QUIT TOBACCO USE [facility] [place] [facility] Sep 24, 2010 08:51 AM V1-PT DECLINES TOBACCO CESSATION MEDS [facility] [place] [facility] Sep 24, 2010 08:51 AM V1-PT THINKING ABOUT QUIT TOBACCO USE [facility] [place] [facility] Mar 22, 2010 07:58 AM CURRENT SMOKER 1/2 ppd [facility] [place] [facility] Feb 25, 2009 12:05 PM QUIT TOBACCO USE IN PAST YEAR [facility] [place] [facility] Aug 26, 2008 09:28 AM CURRENT SMOKER 1/2 ppd [facility] [place] [facility] Aug 26, 2008 09:28 AM V1-PT DECLINES REF TO TOBACCO CESS PRGM [facility] [facility] Aug 26, 2008 09:28 AM V1-PT READY TO QUIT TOBACCO USE [facility] [place] [facility] Dec 19, 2007 10:08 AM V1-PT DECLINES REF TO TOBACCO CESS PRGM [facility] [place] [facility] Dec 19, 2007 10:08 AM V1-PT DECLINES TOBACCO CESSATION MEDS [facility] [place] [facility] Dec 19, 2007 10:08 AM V1-PT THINKING ABOUT QUIT TOBACCO USE [facility] [place] [facility] Sep 11, 2007 11:10 AM CURRENT SMOKER [facility] [place] [facility] Sep 11, 2007 11:10 AM V1-PT DECLINES REF TO TOBACCO CESS PRGM [facility] [place] [facility] Sep 11, 2007 11:10 AM V1-PT DECLINES TOBACCO CESSATION MEDS [facility] [place] [facility] Sep 11, 2007 11:10 AM V1-PT THINKING ABOUT QUIT TOBACCO USE [facility] [place] [facility] Feb 13, 2007 01:46 PM V1-PT DECLINES REF TO TOBACCO CESS PRGM [facility] [facility] Feb 13, 2007 01:46 PM V1-PT DECLINES TOBACCO CESSATION MEDS [facility] [place] [facility] Feb 13, 2007 01:46 PM V1-PT THINKING ABOUT QUIT TOBACCO USE [facility] [place] [facility] Oct 02, 2006 08:28 AM QUIT TOBACCO USE IN PAST YEAR 3 months ago [facility] Aug 19, 2005 08:33 AM QUIT TOBACCO USE IN PAST YEAR nonsmoker [facility] Sep 21, 2004 09:54 AM CURRENT SMOKER [facility] Sep 07, 2004 08:07 AM CURRENT SMOKER [facility] Sep 15, 2003 11:21 AM CURRENT SMOKER smokes one pk day [facility] Jul 23, 2003 01:57 PM CURRENT SMOKER [facility] Advance Directives: All historical and current [...] Apr 10, 2023 ADVANCE DIRECTIVE ESSIE STARK [facility] Apr 19, 2007 ADVANCE DIRECTIVE VICTORIA [...] Loc: CWM/SO/PACT 7 (Req'g Loc) Img Loc: [facility] 1 Service: Unknown (Case 86 COMPLETE) SPINE LUMBOSACRAL MIN 2 VIEWS (RAD Detailed) CPT:93423 Reason for Study: lumbar pain Clinical History: 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, 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, 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 attending: Nell Carrillo NP [facility] Pager: [phone] Backup pager: History: chronic lumbar spine pain Report Status: Verified Date Reported: SEP 26, 2023 Date Verified: SEP 26, 2023 [employer] E-Sig:/ES/CHEYRLE GUZMAN JR Report: Study: AP, lateral [...] Primary Interpreting Staff: CHERYLE GUZMAN JR, Radiologist ([employer]) /CHERYLE VALENCIA JR [place] [facility] [place] [facility] Sep 26, 2023 08:32 AM HIP 2-3 VIEWS (RIGHT) WITH OR WITHOUT PELVIS: GUSTAVO ARAMBULA -1940 M [facility] Date: SEP 26, 2023@08:32 Req Phys: NELL CARRILLO Pat Loc: CWM/SO/PACT 7 (Req'g Loc) [facility] Loc: [facility] 1 Service: Unknown (Case 85 COMPLETE) HIP 2-3 VIEWS (RIGHT) WITH OR WIT(RAD Detailed) CPT:85381 CPT Modifiers : RT RIGHT SIDE Reason for Study: hip pain Clinical History: 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, fellow, 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 attending: Nell Carrillo NP [facility] Pager: [phone] Backup pager: History: chronic right hip pain, hx CAROL ANN Report Status: Verified Date Reported: SEP 26, 2023 Date Verified: SEP 26, 2023 [employer] E-Sig:/ES/CHERYLE GUZMAN JR Report: Study: AP view [...] Primary Interpreting Staff: CHERYLE GUZMAN JR, Radiologist ([employer]) /CHERYLE VALENCIA JR [facility] Sep 05, 2023 11:05 AM HIP 2-3 VIEWS(LEFT) WITH OR WITHOUT PELVIS: GUSTAVO ARAMBULA -1940 M Exm Date: SEP 05, 2023@11:05 Req Phys: DANIELE CHILDS Loc: CWM/NO/PACT/FIRM BROOM WORKER (Req'g Loc Img Loc: [facility] 1 Service: Unknown (Case 18 COMPLETE) HIP 2-3 VIEWS(LEFT) WITH OR WITHO(RAD Detailed) CPT:88291 Proc Modifiers : LEFT CPT Modifiers : LT LEFT SIDE Reason for Study: chronic left hip pain Clinical History: Report Status: Verified Date Reported: SEP 05, 2023 Date Verified: SEP 05, 2023 [employer] E-Sig:/ES/CHERYLE GUZMAN JR Report: Study: AP view [...] Primary Interpreting Staff: CHERYLE GUZMAN JR, Radiologist ([employer]) /CHERYLE VALENCIA JR [facility] Encounter Notes: All associated encounter notes This section contains the clinical notes associated to the Encounter. Date/Time Encounter Note(s) Provider Source Sep 27, 2023 12:00 AM NONVA CONSULT: LOCAL TITLE: COMMUNITY CARE-CONSULT RESULT NOTE STANDARD TITLE: NONVA CONSULT DATE OF NOTE: SEP 27, 2023 ENTRY DATE: OCT 06, 2023@15:08:05 AUTHOR: OLEKSANDR BOX EXP COSIGNER: URGENCY: STATUS: COMPLETED VistA Imaging - Scanned Document SCANNED DOCUMENT SIGNATURE NOT REQUIRED Electronically Filed: 10/06/2023 by: OLEKSANDR MOT[facility]
--- OUTSIDE RECORDS SUMMARY | 2024-08-16 09:30 | XMS_ITS ---
Author Name [facility] Organization [facility] [place] Address [address] [place] [address] Care Team Providers Care Human Resources Consultant Name Role Phone NELL CARRILLO Primary Care [...] PHI MEDEX BRONZ E December 19, 2013 [id number] GUSTAVO ARAMBULA SR PATIENT [employer] CASUAL[employer] MEDICARE SUPPLEMEN PHI MEDIC ARE SUPPL EMENT Jul 21, 2007 NONE [id number] [phone] Edgar ARAMBULA PATIENT [place] MEDICARE SUPPLEMEN PHI MEDEX BRONZ E December 19, 2013 [id number] GUSTAVO ARAMBULA SR PATIENT [place] MEDICARE SUPPLEMEN PHI MEDEX BRONZ E December 19, 2013 [id number] Edgar ARAMBULA PATIENT MEDICARE (WNR) MEDICARE () PART A Oct 19, 2004 PART A [id number] Edgar ARAMBULA PATIENT MEDICARE (WNR) MEDICARE (M) PART B Oct 19, 2004 PART B [id number] Edgar ARAMBULA [place] PATIENT MEDICARE ([place]NR) MEDICARE () PART A Oct 19, 2004 PART A [id number] Edgar ARAMBULAN PATIENT MEDICARE (WNR) MEDICARE () PART B Oct 19, 2004 PART B [id number] Edgar ARAMBULAN PATIENT MEDICARE (WNR) MEDICARE () PART A Oct 19, 2004 PART A [id number] Edgar ARAMBULAN PATIENT MEDICARE (WNR) MEDICARE () PART B Oct 19, 2004 PART B [id number] Edgar ARAMBULAN PATIENT MEDICARE (WNR) MEDICARE () PART A Oct 19, 2004 PART A [id number] Edgar ARAMBULA PATIENT MEDICARE (WNR) MEDICARE () PART B Oct 19, 2004 PART B [id number] Edgar ARAMBULAN PATIENT MEDICARE (WNR) MEDICARE () PART A Oct 19, 2004 PART A [id number] Edgar ARAMBULAN PATIENT MEDICARE (WNR) MEDICARE () PART B Oct 19, 2004 PART B [id number] [phone] Edgar ARAMBULA PATIENT Selected Encounter This section includes the information on record at [place] for the Encounter. Date/Time Encounter Type Encounter Description Reason Pro vider Source Oct 16, 2023 12:00 PM Outpatient Encounter COMMUNITY CARE CONSULT IHE [...] 20 appointments. The data comes from all [place] treatment [facility]. Appointment Date/Time Appointment Type Appointme nt Facility Name Nov 06, 2023 09:30 AM AMBULATORY - MEDICINE [place] [facility] [place] [facility] December 21, 2023 09:00 AM AMBULATORY - PSYCHIATRY [facility] [place] [facility] December 25, 2023 09:00 AM [facility] Feb 05, 2024 10:00 AM AMBULATORY - MEDICINE [place] [facility] [place] [facility] Feb 13, 2024 11:30 AM AMBULATORY - MEDICINE [facility] Feb 15, 2024 09:00 AM AMBULATORY - PSYCHIATRY [facility] [place] [facility] Feb 15, 2024 09:45 AM AMBULATORY - NONE [facility] [place] [facility] Mar 07, 2024 09:00 AM AMBULATORY - PSYCHIATRY [facility] [place] [facility] Mar 08, 2024 08:30 AM AMBULATORY - NONE [facility] [place] [facility] Mar 11, 2024 09:00 AM AMBULATORY - MEDICINE [facility] Apr 04, 2024 11:00 AM AMBULATORY - PSYCHIATRY [facility] [place] [facility] Apr 08, 2024 09:30 AM AMBULATORY - MEDICINE [place] [facility] [place] [facility] Apr 10, 2024 10:45 AM AMBULATORY - MEDICINE [place] [facility] [place] [facility] Active, Pending, and Scheduled Orders This section includes a listing of several types of active, pending, and scheduled orders, including clinic medications orders, diagnostic test orders, procedure orders and consult orders; where the start date of the order is 45 days before the date of the Encounter or 45 days after the date of theEncounter. The data comes from all [place] treatment [facility]. Test Date/Time Test Type Test Details Facility Name Sep 05, 2023 12:00 AM Laboratory - Chemi stry Order OCCULT BLOOD FIT X1 SCREEN(IN-HOUSE) STOOL FECES SP [facility] [place] [facility] Sep 26, 2023 09:55 AM Consult Order [facility] Cons Mother Repairer's Choice [place] Social History: Smoking Status (Most current) and [...] took place. Date/Time Current Smoking Status Comment [facility] it Dec 13, 2022 03:00 PM VA-TOBACCO USER EVERY DAY [facility] [place] [facility] Tobacco Use History This section includes a history of the smoking, or tobacco-related health factors, that were collected on or before the date of the Encounter. The data comes from the [place] facility where the Encounter took place. 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 [facility] [place] [facility] Dec 13, 2022 03:00 PM VA-TOBACCO USE MED NO [facility] [place] [facility] Dec 13, 2022 03:00 PM VA-TOBACCO USER EVERY DAY [facility] [place] [facility] Nov 17, 2021 10:00 AM VA-TOBACCO USE 30 YEARS OR MORE [facility] [place] [facility] Nov 17, 2021 10:00 AM VA-TOBACCO USE ADVICE [facility] [place] [facility] Nov 17, 2021 10:00 AM 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 [facility] [place] [facility] Nov 17, 2021 10:00 AM VA-TOBACCO USE MED NO [facility] [place] [facility] Nov 17, 2021 10:00 AM VA-TOBACCO USE WI 30 MIN OF WAKEUP [facility] [place] [facility] Nov 17, 2021 10:00 AM VA-TOBACCO USER EVERY DAY [facility] [place] [facility] Oct 14, 2013 12:55 PM V1-PT NOT INTERESTED IN QUIT TOBACCO USE [facility] [place] [facility] May 07, 2013 05:04 PM CURRENT SMOKER trying to stop [facility] [place] [facility] May 07, 2013 05:04 PM V1-PT DECLINES REF TO TOBACCO CESS PRGM [facility] [place] [facility] [place] [facility] May 07, 2013 05:04 PM V1-PT DECLINES TOBACCO CESSATION MEDS [facility] [place] [facility] May 07, 2013 05:04 PM V1-PT READY TO QUIT TOBACCO USE [facility] [place] [facility] Dec 03, 2012 08:23 AM V1-PT DECLINES REF TO TOBACCO CESS PRGM [facility] [place] [facility] Dec 03, 2012 08:23 AM V1-PT DECLINES [facility]ACCO [facility]ESS[facility] [place] [facility] Dec 03, 2012 08:23 AM V1-PT THINKING ABOUT QUIT TOBACCO USE [facility] [place] [facility] Jun 05, 2012 08:45 AM CURRENT SMOKER 1/2ppd [facility] [place] [facility] Jun 05, 2012 08:45 AM V1-PT DECLINES REF TO TOBACCO CESS PRGM [facility] [place] [facility] Jun 05, 2012 08:45 AM V1-PT THINKING ABOUT QUIT TOBACCO [facility] [place] [facility] Jun 05, 2012 08:45 AM V1-TOBACCO CESS MEDS NOT PRESCRIBED Vet wants to talk to his provider-He is nervous about taking meds to quit- but he is interested in quitting [facility] [place] [facility] Nov 25, 2011 09:14 AM V1-PT DECLINES REF TO TOBACCO CESS PRGM [facility] [place] [facility] Nov 25, 2011 09:14 AM V1-PT DECLINES TOBACCO CESSATION MEDS [facility] [place] [facility] Nov 25, 2011 09:14 AM V1-PT THINKING ABOUT QUIT TOBACCO [facility] [place] [facility] May 06, 2011 01:02 PM CURRENT SMOKER [facility] [place] [facility] May 06, 2011 01:02 PM V1-PT DECLINES TOBACCO CESSATION MEDS [facility] [place] [facility] May 06, 2011 01:02 PM V1-PT NOT INTERESTED IN QUIT TOBACCO USE [facility] [place] [facility] Sep 24, 2010 08:51 AM V1-PT DECLINES TOBACCO CESSATION MEDS [facility] [place] [facility] Sep 24, 2010 08:51 AM V1-PT THINKING ABOUT QUIT TOBACCO USE [facility] [place] [facility] Mar 22, 2010 07:58 AM CURRENT SMOKER 1/2 ppd [facility] [place] [facility] Feb 25, 2009 12:05 PM QUIT TOBACCO USE IN PAST YEAR [facility] [place] [facility] Aug 26, 2008 09:28 AM CURRENT SMOKER 1/2 ppd [facility] [place] [facility] Aug 26, 2008 09:28 AM V1-PT DECLINES REF TO TOBACCO CESS PRGM [facility] [place] [facility] Aug 26, 2008 09:28 AM V1-PT READY TO QUIT TOBACCO USE [facility] [place] [facility] Dec 19, 2007 10:08 AM V1-PT DECLINES REF TO TOBACCO CESS PRGM [facility] [place] [facility] Dec 19, 2007 10:08 AM V1-PT DECLINES TOBACCO CESSATION MEDS [facility] [place] [facility] Dec 19, 2007 10:08 AM V1-PT THINKING ABOUT QUIT TOBACCO USE [facility] [place] [facility] Sep 11, 2007 11:10 AM CURRENT SMOKER [facility] [facility] Sep 11, 2007 11:10 AM V1-PT DECLINES REF TO TOBACCO CESS [facility] [place] [facility] Sep 11, 2007 11:10 AM V1-PT DECLINES TOBACCO CESSATION MEDS [facility] [place] [facility] Sep 11, 2007 11:10 AM V1-PT THINKING ABOUT QUIT TOBACCO USE [facility] [place] [facility] Feb 13, 2007 01:46 PM V1-PT DECLINES REF TO TOBACCO CESS PRGM [facility] [place] [facility] Feb 13, 2007 01:46 PM V1-PT DECLINES TOBACCO CESSATION MEDS [facility] [place] [facility] Feb 13, 2007 01:46 PM V1-PT THINKING ABOUT QUIT [facility]AC[facility] [place] [facility] Oct 02, 2006 08:28 AM QUIT TOBACCO USE IN PAST YEAR 3 months ago [facility] Aug 19, 2005 08:33 AM QUIT TOBACCO USE IN PAST YEAR nonsmoker [facility] Sep 21, 2004 09:54 AM CURRENT SMOKER [facility] [place] [facility] Sep 07, 2004 08:07 AM [facility] Sep 15, 2003 11:21 AM CURRENT SMOKER smokes one pk day [facility] Jul 23, 2003 01:57 PM CURRENT [...] 10, 2023 ADVANCE DIRECTIVE [place] [facility] Apr 19, 2007 ADVANCE [facility]IVE [facility] Radiology Reports: +/- 30 days of [...] the Encounter. The data comes from all [place] treatment facilities. 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: Nell Carrillo NP [place] Pager: [phone] Backup pager: History: chronic lumbar spine pain Report Status: Verified Date Reported: SEP 26, 2023 Date Verified: SEP 26, 2023 Cherry Grower E-Sig:/ES/CHERYLE GUZMAN JR Report: Study: AP, lateral [...] Primary Interpreting Staff: CHERYLE GUZMAN JR, Radiologist (Cherry Grower) /CHERYLE VALENCIA JR [place] [facility] [place] [facility] Sep 26, 2023 08:32 AM HIP 2-3 VIEWS (RIGHT) WITH OR WITHOUT PELVIS: GUSTAVO ARAMBULA [id number] -1940 M [facility] Date: SEP 26, 2023@08:32 Req Phys: NELL CARRILLO Loc: CWM/SO/PACT 7 (Req'g Loc) [facility] Loc: [facility] 1 Service: Unknown (Case [id number] COMPLETE) HIP 2-3 VIEWS (RIGHT) WITH OR WIT(RAD Detailed) CPT:78336 CPT Modifiers : RT RIGHT SIDE Reason for Study: hip pain Clinical History: 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 Date/Time Encounter Note(s) Provider Source Oct 16, 2023 12:00 PM NONVA CONSULT: LOCAL TITLE: COMMUNITY CARE-CONSULT RESULT COLONOSCOPY STANDARD TITLE: NONVA CONSULT DATE OF NOTE: OCT 16, 2023@12:00 ENTRY DATE: OCT 24, 2023@07:58:33 AUTHOR: ROSA MARIA SALAS EXP COSIGNER: URGENCY: STATUS: COMPLETED VistA Imaging - Scanned Document SCANNED DOCUMENT SIGNATURE NOT REQUIRED Electronically Filed: 10/24/2023 by: ROSA MARIA CANDELARIO [facility]
--- OUTSIDE RECORDS SUMMARY | 2024-08-16 09:30 | XMS_ITS ---
Author Name [facility] [place] [facility] [place] [facility] [place] Address [address] [place] [address] Care Team Providers Care Pickler Helper Name Role Phone TRACY CARRILLO Primary Care [...] PHI MEDEX BRONZ E December 19, 2013 [id number] GUSTAVO ARAMBULA SR PATIENT [employer] LIFE [employer] CASUALTY MEDICARE SUPPLEMEN PHI MEDIC ARE SUPPL EMENT Jul 21, 2007 NONE [id number] Edgar ARAMBULA [place] SUPPLEMEN PHI MEDEX BRONZ E December 19, 2013 [id number] [phone] GUSTAVO ARAMBULA SR PATIENT [place] OF [place] MEDICARE SUPPLEMEN PHI MEDEX BRONZ E December 19, 2013 [id number] [phone] Edgar ARAMBULAN PATIENT MEDICARE (WNR) MEDICARE () PART A Oct 19, 2004 PART A [id number] Edgar ARAMBULA [place] PATIENT MEDICARE ([place]NR) MEDICARE (M) PART B Oct 19, 2004 PART B [id number] [phone] [id number] Edgar ARAMBULA [place] PATIENT MEDICARE ([place]NR) MEDICARE () PART A Oct 19, 2004 PART A [id number] Edgar ARAMBULA [place] PATIENT MEDICARE ([place]) MEDICARE () PART B Oct 19, 2004 PART B [id number] [id number] Edgar ARAMBULA [place] PATIENT MEDICARE ([place]NR) MEDICARE () PART A Oct 19, 2004 PART A [id number] [phone] [id number] Edgar ARAMBULA [place] PATIENT MEDICARE ([place]NR) MEDICARE () PART B Oct 19, 2004 PART B [id number] [phone] Edgar ARAMBULAN PATIENT MEDICARE (WNR) MEDICARE () PART A Oct 19, 2004 PART A [id number] Edgar ARAMBULAN PATIENT MEDICARE (WNR) MEDICARE () PART B Oct 19, 2004 PART B [id number] Edgar ARAMBULA [place] PAT[place] MEDICARE ([place]) MEDICARE () PART A Oct 19, 2004 PART A [id number] Edgar ARAMBULAN PATIENT MEDICARE (WNR) MEDICARE () PART B Oct 19, 2004 PART B [id number] Edgar ARAMBULAN PATIENT Selected Encounter This section includes the information [place] at [place] for the Encounter. Date/Time Encounter Type Encounter Description Reason Pro vider Source Sep 25, 2023 10:39 AM Outpatient Encounter PRIMARY CARE/MEDICINE IHE Encounter [...] 20 appointments. The data comes from all [facility]. Appointment Date/Time Appointment Type Appointme nt Facility Name Sep 26, 2023 08:27 AM AMBULATORY - NONE [place] [facility] [place] [facility] Sep 26, 2023 12:00 PM AMBULATORY - MEDICINE [place] [facility] [place] [facility] Oct 16, 2023 09:00 AM AMBULATORY - MEDICINE [place] [facility] [place] [facility] Nov 06, 2023 09:30 AM AMBULATORY - MEDICINE [place] [facility] [place] [facility] December 21, 2023 09:00 AM AMBULATORY - PSYCHIATRY [place] [facility] [place] [facility] December 25, 2023 09:00 AM AMBULATORY - MEDICINE [facility] Feb 05, 2024 10:00 AM AMBULATORY - MEDICINE [place] [facility] [place] [facility] Feb 13, 2024 11:30 AM AMBULATORY - MEDICINE [facility] Feb 15, 2024 09:00 AM AMBULATORY - PSYCHIATRY [place] [facility] [place] [facility] Feb 15, 2024 09:45 AM AMBULATORY - NONE [place] [facility] [place] [facility] Mar 07, 2024 09:00 AM AMBULATORY - PSYCHIATRY [place] [facility] [place] [facility] Mar 08, 2024 08:30 AM AMBULATORY - NONE [place] [facility] [place] [facility] Mar 11, 2024 09:00 AM [...] of theEncounter. The data comes from all [facility]. Test Date/Time Test Type Test Details Facility Name Sep 05, 2023 12:00 AM Laboratory - Chemi stry Order OCCULT BLOOD FIT X1 SCREEN(IN-HOUSE) STOOL FECES SP [place] [facility] [place] [facility] Sep 26, 2023 09:55 AM Consult Order [facility] GENERAL Cons Meat Carrier's Choice PIMENTO Lab Results: +/- 30 days of the [...] Range Comment Sep 05, 2023 10:56 AM [facility] FERRITIN Specimen Type: SERUM No comment entered. Ordering Provider: YOAN CHILDS Report Released Date/Time: Sep 05, 2023 10:30 AM Reporting Lab[facility] [address] Performing Lab: [facility]ITAL[facility]ETS [address] [address] FERRITIN 25 ng/mL 20-300 Sep 05, 2023 10:56 AM [facility] IRON & TIBC PANEL Specimen Type: SERUM No comment entered. Ordering Provider: YOAN CHILDS Report Released Date/Time: Sep 05, 2023 10:30 AM Reporting Lab: [facility] [place] [address] [address] Performing Lab: [facility]N [facility]ITAL[facility] [address] [address] TIBC 401 ug/dL 204-475 IRON 53 ug/dL 40-160 Transferrin Saturation 13.2 L 20.0-50.0 Sep 05, 2023 10:56 AM [facility] CBC AND DIFF (AUTO) Specimen Type: BLOOD No comment entered. Ordering Provider: YOAN CHILDS Report Released Date/Time: Sep 05, 2023 10:30 AM Reporting Lab: [facility]N [facility] [address] [address] Performing Lab: [facility] [address] [address] WBC 5.66 10*3/uL 4.50-11.00 RBC 4.25 10*6/uL 4.23-5.66 HGB 12.1 g/dL L 12.8-17 HCT 35.5 L 39.2-50.4 MCV 83.5 fL 82-99 MCHC 34.1 g/dL 30.8-35.1 PLT 295 10*3/uL 140-360 RDW-CV 12.0 12.0-16.0 Tillman, Abs 0.59 10*3/uL 0.30-1.10 MCH 28.5 pg 26.2-32.6 Neut % 56.3 43.7-75.8 Lymph % 27.2 14.0-42.3 Tillman % 10.4 5.1-13.7 Eos % 4.1 0.4-6.8 Baso % 1.6 0.1-2.0 Neut, Abs 3.19 10*3/uL 2.20-7.60 Lymph, Abs 1.54 10*3/uL 1.00-3.20 Eos, Abs 0.23 10*3/uL 0.03-0.44 Baso, Abs 0.09 10*3/uL 0.01-0.13 Immature Gran % 0.4 0.0-0.7 Immature Gran, Abs 0.02 10*3/uL 0.00-0.06 Sep 01, 2023 10:29 AM [facility] LIPID PANEL FASTING Specimen Type: SERUM No comment entered. Ordering Provider: YULY AUSTIN Report Released Date/Time: Aug 17, 2023 08:25 AM Reporting Lab: [facility] [address] [facility] [address] Performing Lab: [address] [address] CHOLESTEROL 133 mg/dL TRIGLYCERIDE 73 mg/dL 0-150 LDL calculated 75 mg/dL 0-129 CHOL/HDL 3.1 HDL CHOLESTEROL 43 mg/dL 40-60 Sep 01, 2023 10:29 AM [facility] HEMOGLOBIN A1C PANEL Specimen Type: BLOOD Comment: [...] Aug 17, 2023 08:25 AM Reporting Lab: [facility] [address] [facility] [address] Performing Lab: [facility] [address] [facility] [address] HEMOGLOBIN A1C 6.7 H 4.0-5.6 Sep 01, 2023 10:29 AM [facility] BASIC METABOLIC PANEL (fasting) Specimen Type: SERUM No comment entered. Ordering Provider: YULY AUSTIN Report Released Date/Time: Aug 17, 2023 08:25 AM Reporting Lab: [facility] [address] [facility] [address] Performing Lab: [address] [address] UREA NITROGEN 10 mg/dL 7-25 GLUCOSE 135 mg/dL H 65-100 SODIUM 138 mmol/L 135-145 POTASSIUM 3.9 mmol/L 3.5-5.0 CHLORIDE 101 mmol/L 100-110 CO2 27 meq/L 20-30 CREATININE, Serum 0.73 mg/dL 0.50-1.40 eGFR(CKD-EPI 2020) 90 mL/min >60 Sep 01, 2023 10:29 AM [facility] LIVER FUNCTION Specimen Type: SERUM No comment entered. Ordering Provider: YULY AUSTIN Report Released Date/Time: Aug 17, 2023 08:25 AM Reporting Lab: [facility] [address] [facility] [address] Performing Lab: [address] [address] PROTEIN,TOTAL 6.9 g/dL 6.0-8.3 ALBUMIN 3.8 g/dL 3.5-5.0 ALKALINE PHOSPHATASE 91 U/L 40-150 AST 14 U/L 5-34 ALT 13 U/L BILIRUBIN, TOTAL 0.5 mg/dL 0.2-1.2 Sep 01, 2023 10:29 AM [facility] MICROALBUMIN CREATININE RATIO PANEL Specimen Type: URINE No comment entered. Ordering Provider: YULY AUSTIN Report Released Date/Time: Aug 17, 2023 08:25 AM Reporting Lab: [facility] [address] [facility] [address] Performing Lab: [facility] [address] [facility] [address] MICROALBUMIN/C REATININE RATIO 9.0 mg/g 0-29.9 MICROALBUMIN,Q UANTITATIVE 1.0 mg/dL RR UNAVAIL CREATININE URINE 110.79 mg/dL Sep 01, 2023 10:29 AM [facility] CBC AND DIFF (AUTO) Specimen Type: BLOOD No comment entered. Ordering Provider: YULY AUSTIN Report Released Date/Time: Aug 17, 2023 08:25 AM Reporting Lab: [facility] [address] [facility] [address] Performing Lab: [facility] [address] [facility] [address] WBC 8.35 10*3/uL 4.50-11.00 RBC 4.17 10*6/uL L 4.23-5.66 HGB 12.0 g/dL L 12.8-17 HCT 35.3 L 39.2-50.4 MCV 84.7 fL 82-99 MCHC 34.0 g/dL 30.8-35.1 PLT 305 10*3/uL 140-360 RDW-CV 12.3 12.0-16.0 Tillman, Abs 0.71 10*3/uL 0.30-1.10 MCH 28.8 pg 26.2-32.6 Neut % 66.3 43.7-75.8 Lymph % 20.8 14.0-42.3 Tillman % 8.5 5.1-13.7 Eos % 3.0 0.4-6.8 [...] took place. Date/Time Current Smoking Status Comment [facility] Dec 13, 2022 03:00 PM VA-TOBACCO USER EVERY DAY [place] [facility] [place] [facility] Tobacco Use History This section includes a history of the smoking, or tobacco-related health factors, that were collected on or before the date of the Encounter. The data comes from the [place] facility where the Encounter took place. Date/Time Smoking Status/Tobac co Use Comment [facility] Dec 13, 2022 03:00 PM VA-TOBACCO USE 30 YEARS OR MORE [place] [facility] [place] [facility] Dec 13, 2022 03:00 PM VA-TOBACCO USE ADVICE [place] [facility] [place] [facility] Dec 13, 2022 03:00 PM VA-TOBACCO USE SILK WEAVER NO [place] [facility] [place] [facility] Dec 13, 2022 03:00 PM VA-TOBACCO USE MED NO [place] [facility] [place] [facility] Dec 13, 2022 03:00 PM VA-TOBACCO USER EVERY DAY [facility] [place] [facility] Nov 17, 2021 10:00 AM VA-TOBACCO USE 30 YEARS OR MORE [place] [facility] [place] [facility] Nov 17, 2021 10:00 AM VA-TOBACCO USE ADVICE [place] [facility] [place] [facility] Nov 17, 2021 10:00 AM VA-TOBACCO USE SILK WEAVER NO [facility] [place] [facility] Nov 17, 2021 10:00 AM VA-TOBACCO USE MED NO [place] [facility] [place] [facility] Nov 17, 2021 10:00 AM VA-TOBACCO USE WI 30 MIN OF WAKEUP [facility] Nov 17, 2021 10:00 AM VA-TOBACCO USER EVERY DAY [facility] Oct 14, 2013 12:55 PM V1-PT NOT INTERESTED IN QUIT TOBACCO USE [facility] May 07, 2013 05:04 PM CURRENT SMOKER trying to stop [facility] May 07, 2013 05:04 PM V1-PT DECLINES REF TO TOBACCO CESS PRGM [facility] May 07, 2013 05:04 PM V1-PT DECLINES TOBACCO CESSATION MEDS [facility] May 07, 2013 05:04 PM V1-PT READY TO QUIT TOBACCO USE [facility] Dec 03, 2012 08:23 AM V1-PT DECLINES REF TO TOBACCO CESS PRGM [facility] Dec 03, 2012 08:23 AM V1-PT DECLINES TOBACCO CESSATION MEDS [facility] Dec 03, 2012 08:23 AM V1-PT THINKING ABOUT QUIT TOBACCO USE [facility] Jun 05, 2012 08:45 AM CURRENT SMOKER 1/2ppd [facility] Jun 05, 2012 08:45 AM V1-PT DECLINES REF TO TOBACCO CESS [facility] Jun 05, 2012 08:45 AM V1-PT THINKING ABOUT QUIT TOBACCO USE [facility] Jun 05, 2012 08:45 AM V1-TOBACCO CESS MEDS NOT PRESCRIBED Vet wants to talk to his provider-He is nervous about taking meds to quit- but he is interested in quitting [facility] Nov 25, 2011 09:14 AM V1-PT DECLINES REF TO TOBACCO CESS PRGM [facility] Nov 25, 2011 09:14 AM V1-PT DECLINES TOBACCO CESSATION MEDS [facility] Nov 25, 2011 09:14 AM V1-PT THINKING ABOUT QUIT TOBACCO USE [facility] [place] [place] [facility] May 06, 2011 01:02 PM CURRENT SMOKER [facility] [place] [facility] May 06, 2011 01:02 PM V1-PT DECLINES TOBACCO CESSATION MEDS [facility] [place] [facility] May 06, 2011 01:02 PM V1-PT NOT INTERESTED IN QUIT TOBACCO USE [facility] [place] [facility] Sep 24, 2010 08:51 AM V1-PT DECLINES TOBACCO CESSATION MEDS [facility] [place] [facility] Sep 24, 2010 08:51 AM V1-PT THINKING ABOUT QUIT TOBACCO USE [facility] [place] [facility] Mar 22, 2010 07:58 AM CURRENT SMOKER 1/2 ppd [facility] [place] [facility] Feb 25, 2009 12:05 PM QUIT TOBACCO USE IN PAST YEAR [facility] [place] [facility] Aug 26, 2008 09:28 AM CURRENT SMOKER 1/2 ppd [facility] [place] [facility] Aug 26, 2008 09:28 AM V1-PT DECLINES REF TO TOBACCO CESS PRGM [facility] [place] [facility] Aug 26, 2008 09:28 AM V1-PT READY TO QUIT TOBACCO USE [facility] [place] [facility] Dec 19, 2007 10:08 AM V1-PT DECLINES REF TO TOBACCO CESS PRGM [facility] [place] [facility] Dec 19, 2007 10:08 AM V1-PT DECLINES TOBACCO CESSATION MEDS [facility] Dec 19, 2007 10:08 AM V1-PT THINKING ABOUT QUIT TOBACCO USE [facility] [place] [facility] Sep 11, 2007 11:10 AM CURRENT SMOKER [facility] [place] [facility] Sep 11, 2007 11:10 AM V1-PT DECLINES REF TO TOBACCO CESS PRGM [facility] [place] [facility] Sep 11, 2007 11:10 AM V1-PT DECLINES TOBACCO CESSATION MEDS [facility] [place] [facility] Sep 11, 2007 11:10 AM V1-PT THINKING ABOUT QUIT TOBACCO USE [facility] [place] [facility] Feb 13, 2007 01:46 PM V1-PT DECLINES REF TO TOBACCO CESS PRGM [facility] [place] [facility] Feb 13, 2007 01:46 PM V1-PT DECLINES TOBACCO CESSATION MEDS [facility]N [facility] Feb 13, 2007 01:46 PM V1-PT THINKING ABOUT QUIT [facility]AC[facility] Oct 02, 2006 08:28 AM QUIT TOBACCO USE IN PAST YEAR 3 months ago [facility] Aug 19, 2005 08:33 AM QUIT TOBACCO USE IN PAST YEAR nonsmoker [facility] Sep 21, 2004 09:54 AM [facility]ER [facility] Sep 07, 2004 08:07 AM [facility]ER [facility] Sep 15, 2003 11:21 AM CURRENT SMOKER smokes one pk day [facility] Jul 23, 2003 01:57 PM [facility] Advance Directives: All historical and current [...] Apr 10, 2023 ADVANCE DIRECTIVE CARLOSESSIE STUBBS [facility] W RADHA [facility] Apr 19, 2007 ADVANCE DIRECTIVE VICTORIA [...] Loc: CWM/SO/PACT 7 (Req'g Loc) Img Loc: [facility]/BUILDING 1 Service: Unknown (Case 86 COMPLETE) SPINE LUMBOSACRAL MIN 2 VIEWS (RAD Detailed) CPT:37049 Reason for Study: lumbar pain Clinical History: 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, fellow, MARKETING SERVICES COORDINATOR or attending: Tracy Carrillo NP [place] Pager: [phone] Backup pager: History: chronic lumbar spine pain Report Status: Verified Date Reported: SEP 26, 2023 Date Verified: SEP 26, 2023 Protective Services Case Worker E-Sig:/ES/CHERYLE GUZMAN JR Report: Study: AP, lateral [...] Primary Interpreting Staff: CHERYLE GUZMAN JR, Radiologist (Protective Services Case Worker) /CHERYLE VALENCIA JR [place] [facility] Sep 26, 2023 08:32 AM HIP 2-3 VIEWS (RIGHT) WITH OR WITHOUT PELVIS: GUSTAVO ARAMBULA CATHERINE -1940 M Ex Date: SEP 26, 2023@08:32 Req Phys: TRACY CARRILLO Pat Loc: CWM/SO/PACT 7 (Req'g Loc) Img Loc: [facility] 1 Service: Unknown (Case 85 COMPLETE) HIP 2-3 VIEWS (RIGHT) WITH OR WIT(RAD Detailed) CPT:44124 CPT Modifiers : RT RIGHT SIDE Reason for Study: hip pain Clinical History: 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, fellow, MARKETING SERVICES COORDINATOR or attending: Tracy Carrillo NP [place] Pager: [phone] Backup pager: History: chronic right hip pain, hx CAROL ANN Report Status: Verified Date Reported: SEP 26, 2023 Date Verified: SEP 26, 2023 Protective Services Case Worker E-Sig:/ES/CHERYLE GUZMAN JR Report: Study: AP view [...] Primary Interpreting Staff: CHERYLE GUZMAN JR, Radiologist (Protective Services Case Worker) /CHERYLE VALENCIA JR [place] [facility] [facility] Sep 05, 2023 11:05 AM HIP 2-3 VIEWS(LEFT) WITH OR WITHOUT PELVIS: GUSTAVO ARAMBULA -1940 M [facility] Date: SEP 05, 2023@11:05 Req Phys: DANIELE CHILDS Pat Loc: CWM/NO/PACT/FIRM MARKETING SERVICES COORDINATOR (Req'g Loc Img Loc: [facility] 1 Service: Unknown (Case 18 COMPLETE) HIP 2-3 VIEWS(LEFT) WITH OR WITHO(RAD Detailed) CPT:32696 Proc Modifiers : LEFT CPT Modifiers : LT LEFT SIDE Reason for Study: chronic left hip pain Clinical History: Report Status: Verified Date Reported: SEP 05, 2023 Date Verified: SEP 05, 2023 Protective Services Case Worker E-Sig:/ES/CHERYLE GUZMAN JR Report: Study: AP view [...] Primary Interpreting Staff: CHERYLE GUZMAN JR, Radiologist (Protective Services Case Worker) /CHERYLE VALENCIA JR [place] [facility] [facility] Encounter Notes: All associated encounter notes This section contains the clinical notes associated to the Encounter. Date/Time Encounter Note(s) Provider Source Sep 25, 2023 10:39 AM PREVENTIVE MEDICIN E NURSING NOTE: LOCAL TITLE: CLINICAL REMINDERS/NURSING STANDARD TITLE: PREVENTIVE MEDICINE NURSING NOTE DATE OF NOTE: SEP 25, 2023@10:39 ENTRY DATE: SEP 25, 2023@10:39:27 AUTHOR: CRISTIANE DOZIER EXP COSIGNER: URGENCY: STATUS: COMPLETED Follow Up Colonoscopy: Colonoscopy is due based on information available to this reminder. Colorectal cancer screening/surveillance will be stopped. Reason: age out COVID-19 Immunization: Refused Moderna Monovalent COVID-19 vaccine Immunization: COVID-19 (MODERNA), MRNA, LNP-S, PF, 50 MCG/0.5 ML (AGES 12+ YEARS) Refusal Reason: PATIENT DECISION Patient refuses all immunization(s) in the COVID-19 group Date Documented: 09/25/23 10:40 HTN Assess for Elevated BP>=140/90: The patient was counseled on the importance of regular exercise and/or physical activity in the control of blood pressure. The patient was counseled on the importance of diet and weight loss/ control in the regulation of blood pressure. Sexual Orientation: The patient thinks of their sexual orientation as: Straight or Heterosexual RHS Screen: RHS Screen Session Format: Face to Face Environmental Check Upon inquiry, the individual reports that the environment is safe to proceed. Informed Consent to Screen and Document The individual consents to proceed with screening. The individual consents to documentation of responses. PRIMARY SCREEN: In the past 12 months, how often did a current or former intimate partner (e.g., boyfriend, girlfriend, , , sexual partner): 1. Scream or curse at you Never 2. Insult or talk down to you Never 3. Threaten you with harm Never 4. Physically hurt you Never 5. Force or pressure you to have sexual contact against your will, or when you were unable to say no Never ?? The HITS tool (items 1-4 above) is [place] copyright protected by Kal Epps MD, and the user has full rights to use it throughout the [place] system. PRIMARY SCREEN RESULT: The Primary Screen is NEGATIVE. The individual answered never to all forms of IPV above (i.e., answered never to all 5 items) The individual accepts education and/or resources: Yes - Offered verbal universal education about IPV EDUCATION: The individual indicated readiness to learn. Education offered during this session as noted above. The individual indicated understanding by asking relevant questions and making appropriate comments. No barriers to learning were observed or identified. Hepatitis A Vaccine for High Risk: Patient declines/refuses Hepatitis A immunization Immunization: HEP A, UNSPECIFIED FORMULATION Refusal Reason: PATIENT DECISION Patient refuses all immunization(s) in the HepA group Date Documented: 09/25/23 10:41 /es/ MARCUS DOZIER LPN LPN Signed: 09/25/2023 10:42 MARCUS DOZIER PIMENTO
--- OUTSIDE RECORDS SUMMARY | 2024-08-16 09:30 | XMS_ITS | Encounter Summary ---
Author Name [facility] [facility] [place] [facility] [place] Address [address] [place] [address] Care Team Providers Care Art Therapy Certified Supervisor Name Role Phone TRACY CARRILLO Primary Care [...] PHI MEDEX BRONZ E December 19, 2013 [id number] [phone] GUSTAVO ARABMULA SR PATIENT [employer] MEDICARE SUPPLEMEN PHI MEDIC ARE SUPPL EMENT Jul 21, 2007 NONE [id number] Edgar ARAMBULA PATIENT [place] MEDICARE SUPPLEMEN PHI MEDEX BRONZ E December 19, 2013 [id number] GUSTAVO ARAMBULA SR PATIENT [place] OF [place] ([place] MEDICARE SUPPLEMEN PHI MEDEX BRONZ E December 19, 2013 [id number] Edgar ARAMBULAN PATIENT MEDICARE (WNR) MEDICARE () PART A Oct 19, 2004 PART A [id number] [phone] [id number] Edgar ARAMBULA [place] PATIENT MEDICARE (WNR) MEDICARE (M) PART B Oct 19, 2004 PART B [id number] Edgar ARAMBULA [place] PATIENT MEDICARE (WNR) MEDICARE () PART A Oct 19, 2004 PART A [id number] Edgar ARAMBULA [place] PATIENT MEDICARE ([place]) MEDICARE () PART B Oct 19, 2004 PART B [id number] Edgar ARAMBULA [place] PAT[place] MEDICARE ([place]) MEDICARE () PART A Oct 19, 2004 PART A [id number] Edgar ARAMBULA [place] PATIENT MEDICARE ([place]) MEDICARE () PART B Oct 19, 2004 PART B [id number] Edgar ARAMBULA [place] PATIENT MEDICARE (WNR) MEDICARE () PART A Oct 19, 2004 PART A [id number] Edgar ARAMBULAN PATIENT MEDICARE (WNR) MEDICARE () PART B Oct 19, 2004 PART B [id number] [phone] Edgar ARAMBULA [place] PATIENT MEDICARE ([place]) MEDICARE () PART A Oct 19, 2004 PART A [id number] Edgar ARAMBULAN PATIENT MEDICARE (WNR) MEDICARE (M) PART B Oct 19, 2004 PART B [id number] Edgar ARAMBULAN PATIENT Selected Encounter This section includes the information on record at [place] for the Encounter. Date/Time Encounter Type Encounter Description Reason Pro vider Source Sep 25, 2023 12:00 AM Outpatient Encounter EVENT [...] appointments. The data comes from all [facility]. Appointment Date/Time Appointment Type Appointme nt Facility Name Sep 26, 2023 08:27 AM AMBULATORY - NONE [facility] [place] [facility] Sep 26, 2023 12:00 PM AMBULATORY - MEDICINE [place] [facility] [place] [facility] Oct 16, 2023 09:00 AM AMBULATORY - MEDICINE [place] [facility] [place] [facility] Nov 06, 2023 09:30 AM AMBULATORY - MEDICINE [place] [facility] [place] [facility] December 21, 2023 09:00 AM AMBULATORY - PSYCHIATRY [facility] [place] [facility] December 25, 2023 09:00 AM AM[facility]ULATORY - MEDICINE [facility] Feb 05, 2024 10:00 AM AMBULATORY - MEDICINE [place] [facility] [place] [facility] Feb 13, 2024 11:30 AM AMBULATORY - MEDICINE [facility] Feb 15, 2024 09:00 AM AMBULATORY - PSYCHIATRY [facility] [place] [facility] Feb 15, 2024 09:45 AM AMBULATORY - NONE [facility] [place] [facility] Mar 07, 2024 09:00 AM AMBULATORY - PSYCHIATRY [facility] [place] [facility] Mar 08, 2024 08:30 AM AMBULATORY - NONE [facility] [place] [facility] Mar 11, 2024 09:00 AM AMBULATORY - MEDICINE [facility] Active, Pending, and Scheduled Orders This section includes a listing of several types of active, pending, and scheduled orders, including clinic medications orders, diagnostic test orders, procedure orders and consult orders; where the start date of the order is 45 days before the date of the Encounter or 45 days after the date of theEncounter. The data comes from all [facility]. 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 Ordering Provider: YOAN CHILDS Report Released Date/Time: Sep 05, 2023 10:30 AM Reporting Lab: [facility] [address] Performing Lab: [facility] [address] [address] FERRITIN 25 ng/mL 20-300 Sep 05, 2023 10:56 AM [facility] IRON & TIBC PANEL Specimen Type: SERUM No comment entered. Ordering Provider: YOAN CHILDS Report Released Date/Time: Sep 05, 2023 10:30 AM Reporting Lab: [facility] [place] [address] [address] Performing Lab: [facility] [address] [address] TIBC 401 ug/dL 204-475 IRON 53 ug/dL 40-160 Transferrin Saturation 13.2 L 20.0-50.0 Sep 05, 2023 10:56 AM [facility] CBC AND DIFF (AUTO) Specimen Type: BLOOD No comment entered. Ordering Provider: YOAN CHILDS Report Released Date/Time: Sep 05, 2023 10:30 AM Reporting Lab: [facility] [address] [address] Performing Lab: [facility] [address] [address] WBC 5.66 10*3/uL 4.50-11.00 RBC 4.25 10*6/uL 4.23-5.66 HGB 12.1 g/dL L 12.8-17 HCT 35.5 L 39.2-50.4 MCV 83.5 fL 82-99 MCHC 34.1 g/dL 30.8-35.1 PLT 295 10*3/uL 140-360 RDW-CV 12.0 12.0-16.0 [place], Abs 0.59 10*3/uL 0.30-1.10 MCH 28.5 pg 26.2-32.6 Neut % 56.3 43.7-75.8 Lymph % 27.2 14.0-42.3 [place] % 10.4 5.1-13.7 Eos % 4.1 0.4-6.8 Baso % 1.6 0.1-2.0 Neut, Abs 3.19 10*3/uL 2.20-7.60 Lymph, Abs 1.54 10*3/uL 1.00-3.20 Eos, Abs 0.23 10*3/uL 0.03-0.44 Baso, Abs 0.09 10*3/uL 0.01-0.13 Immature Gran % 0.4 0.0-0.7 Immature Gran, Abs 0.02 10*3/uL 0.00-0.06 Sep 01, 2023 10:29 AM [facility] LIPID PANEL FASTING Specimen Type: SERUM No comment entered. Ordering Provider: YULY AUSTIN Report Released Date/Time: Aug 17, 2023 08:25 AM Reporting Lab: [address] [address] Performing Lab: [address] [address] CHOLESTEROL 133 mg/dL TRIGLYCERIDE 73 mg/dL 0-150 LDL calculated 75 mg/dL 0-129 CHOL/HDL 3.1 HDL CHOLESTEROL 43 mg/dL 40-60 Sep 01, 2023 10:29 AM [facility] BASIC METABOLIC PANEL (fasting) Specimen Type: SERUM No comment entered. Ordering Provider: YULY AUSTIN Report Released Date/Time: Aug 17, 2023 08:25 AM Reporting Lab: [address] [place] [address] Performing Lab: [facility] [address] [facility] [address] UREA NITROGEN 10 mg/dL 7-25 GLUCOSE 135 mg/dL H 65-100 SODIUM 138 mmol/L 135-145 POTASSIUM 3.9 mmol/L 3.5-5.0 CHLORIDE 101 mmol/L 100-110 CO2 27 meq/L 20-30 CREATININE, Serum 0.73 mg/dL 0.50-1.40 eGFR(CKD-EPI 2020) 90 mL/min >60 Sep 01, 2023 10:29 AM [facility] HEMOGLOBIN A1C PANEL Specimen Type: BLOOD [...] Aug 17, 2023 08:25 AM Reporting Lab: [facility] [address] [facility] [address] Performing Lab: [address] [address] HEMOGLOBIN A1C 6.7 H 4.0-5.6 Sep 01, 2023 10:29 AM [facility] LIVER FUNCTION Specimen Type: SERUM No comment entered. Ordering Provider: YULY AUSTIN Report Released Date/Time: Aug 17, 2023 08:25 AM Reporting Lab: [facility] [address] [facility] [address] Performing Lab: [address] [address] PROTEIN,TOTAL 6.9 g/dL 6.0-8.3 ALBUMIN 3.8 g/dL 3.5-5.0 ALKALINE PHOSPHATASE 91 U/L 40-150 AST 14 U/L 5-34 ALT 13 U/L BILIRUBIN, TOTAL 0.5 mg/dL 0.2-1.2 Sep 01, 2023 10:29 AM [facility] MICROALBUMIN CREATININE RATIO PANEL Specimen Type: URINE No comment entered. Ordering Provider: YULY AUSTIN Report Released Date/Time: Aug 17, 2023 08:25 AM Reporting Lab: [facility] [address] [facility] [address] Performing Lab: [facility] [address] [facility] [address] MICROALBUMIN/C REATININE RATIO 9.0 mg/g 0-29.9 MICROALBUMIN,Q UANTITATIVE 1.0 mg/dL RR UNAVAIL CREATININE URINE 110.79 mg/dL Sep 01, 2023 10:29 AM [facility] CBC AND DIFF (AUTO) Specimen Type: BLOOD No comment entered. Ordering Provider: YULY AUSTIN Report Released Date/Time: Aug 17, 2023 08:25 AM Reporting Lab: [facility] [address] [facility] [address] Performing Lab: [facility] [address] [facility] [address] WBC 8.35 10*3/uL 4.50-11.00 RBC 4.17 10*6/uL L 4.23-5.66 HGB 12.0 g/dL L 12.8-17 HCT 35.3 L 39.2-50.4 MCV 84.7 fL 82-99 MCHC 34.0 g/dL 30.8-35.1 PLT 305 10*3/uL 140-360 RDW-CV 12.3 12.0-16.0 [place], Abs 0.71 10*3/uL 0.30-1.10 MCH 28.8 pg 26.2-32.6 Neut % 66.3 43.7-75.8 Lymph % 20.8 14.0-42.3 [place] % 8.5 5.1-13.7 Eos % 3.0 0.4-6.8 [...] took place. Date/Time Current Smoking Status Comment [facility] Dec 13, 2022 03:00 PM VA-TOBACCO USER EVERY DAY [place] [facility] [place] [facility] Tobacco Use History This section includes a history of the smoking, or tobacco-related health factors, that were collected on or before the date of the Encounter. The data comes from the [place] facility where the Encounter took place. Date/Time Smoking Status/Tobac co Use Comment [facility] Dec 13, 2022 03:00 PM VA-TOBACCO USE 30 YEARS OR MORE [facility] [place] [facility] Dec 13, 2022 03:00 PM VA-TOBACCO USE ADVICE [facility] [place] [facility] Dec 13, 2022 03:00 PM VA-TOBACCO USE TWO WAY RADIO INSTALLER NO [facility] [place] [facility] Dec 13, 2022 03:00 PM VA-TOBACCO USE MED NO [facility] [place] [facility] Dec 13, 2022 03:00 PM VA-TOBACCO USER EVERY DAY [facility] [place] [facility] Nov 17, 2021 10:00 AM VA-TOBACCO USE 30 YEARS OR MORE [facility] [place] [facility] Nov 17, 2021 10:00 AM VA-TOBACCO USE ADVICE [facility] [place] [facility] Nov 17, 2021 10:00 AM VA-TOBACCO USE 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 WAY RADIO INSTALLER NO [facility] [place] [facility] Nov 17, 2021 10:00 AM VA-TOBACCO USE MED NO [facility] [place] [facility] Nov 17, 2021 10:00 AM VA-TOBACCO USE [place] 30 MIN OF WAKEUP [facility] Nov 17, 2021 10:00 AM VA-TOBACCO USER EVERY DAY [facility] Oct 14, 2013 12:55 PM V1-PT NOT INTERESTED IN QUIT TOBACCO USE [facility] May 07, 2013 05:04 PM CURRENT SMOKER trying to stop [facility] May 07, 2013 05:04 PM V1-PT DECLINES REF TO TOBACCO CESS PRGM [facility] May 07, 2013 05:04 PM V1-PT DECLINES TOBACCO CESSATION MEDS [facility] May 07, 2013 05:04 PM V1-PT READY TO QUIT TOBACCO USE [facility] Dec 03, 2012 08:23 AM V1-PT DECLINES REF TO TOBACCO CESS PRGM [facility] Dec 03, 2012 08:23 AM V1-PT DECLINES TOBACCO CESSATION MEDS [facility] Dec 03, 2012 08:23 AM V1-PT THINKING ABOUT QUIT TOBACCO USE [facility] Jun 05, 2012 08:45 AM CURRENT SMOKER 1/2ppd [facility] Jun 05, 2012 08:45 AM V1-PT DECLINES REF TO TOBACCO CESS [facility] Jun 05, 2012 08:45 AM V1-PT THINKING ABOUT QUIT TOBACCO USE [facility] Jun 05, 2012 08:45 AM V1-TOBACCO CESS MEDS NOT PRESCRIBED Vet wants to talk to his provider-He is nervous about taking meds to quit- but he is interested in quitting [facility] Nov 25, 2011 09:14 AM V1-PT DECLINES REF TO TOBACCO CESS PRGM [facility] Nov 25, 2011 09:14 AM V1-PT DECLINES TOBACCO CESSATION MEDS [facility] Nov 25, 2011 09:14 AM V1-PT THINKING ABOUT QUIT TOBACCO USE [facility] [place] [facility] May 06, 2011 01:02 PM CURRENT SMOKER [facility] [place] [facility] May 06, 2011 01:02 PM V1-PT DECLINES TOBACCO CESSATION MEDS [facility] [place] [facility] May 06, 2011 01:02 PM V1-PT NOT INTERESTED IN QUIT TOBACCO USE [facility] [place] [facility] Sep 24, 2010 08:51 AM V1-PT DECLINES TOBACCO CESSATION MEDS [facility] [place] [facility] Sep 24, 2010 08:51 AM V1-PT THINKING ABOUT QUIT TOBACCO USE [facility] [place] [facility] Mar 22, 2010 07:58 AM CURRENT SMOKER 1/2 ppd [facility] [place] [facility] Feb 25, 2009 12:05 PM QUIT TOBACCO USE IN PAST YEAR [facility] [place] [facility] Aug 26, 2008 09:28 AM CURRENT SMOKER 1/2 ppd [facility] [place] [facility] Aug 26, 2008 09:28 AM V1-PT DECLINES REF TO TOBACCO CESS PRGM [facility] [place] [facility] Aug 26, 2008 09:28 AM V1-PT READY TO QUIT TOBACCO USE [facility] [place] [facility] Dec 19, 2007 10:08 AM V1-PT DECLINES REF TO TOBACCO CESS PRGM [facility] [place] [facility] Dec 19, 2007 10:08 AM V1-PT DECLINES TOBACCO CESSATION MEDS [facility] Dec 19, 2007 10:08 AM V1-PT THINKING ABOUT QUIT TOBACCO USE [facility] [place] [facility] Sep 11, 2007 11:10 AM CURRENT SMOKER [facility] [place] [facility] Sep 11, 2007 11:10 AM V1-PT DECLINES REF TO TOBACCO CESS PRGM [facility] [place] [facility] Sep 11, 2007 11:10 AM V1-PT DECLINES TOBACCO CESSATION MEDS [facility] [place] [facility] Sep 11, 2007 11:10 AM V1-PT THINKING ABOUT QUIT TOBACCO USE [facility] [place] [facility] Feb 13, 2007 01:46 PM V1-PT DECLINES REF TO TOBACCO CESS PRGM [facility] [place] [facility] Feb 13, 2007 01:46 PM V1-PT DECLINES TOBACCO CESSATION MEDS [facility] Feb 13, 2007 01:46 PM V1-PT THINKING ABOUT QUIT [facility]ACCO [facility] Oct 02, 2006 08:28 AM QUIT TOBACCO USE IN PAST YEAR 3 months ago [facility] Aug 19, 2005 08:33 AM QUIT TOBACCO USE IN PAST YEAR nonsmoker [facility] Sep 21, 2004 09:54 AM CURRENT SMOKER [facility] Sep 07, 2004 08:07 AM CURRENT SMOKER [facility] Sep 15, 2003 11:21 AM CURRENT SMOKER smokes one pk day [facility] Jul 23, 2003 01:57 PM CURRENT SMOKER [facility] Advance Directives: All historical and current [...] Apr 10, 2023 ADVANCE DIRECTIVE CARLOSESSIE STUBBS [facility] Apr 19, 2007 ADVANCE DIRECTIVE VICTORIA [...] the Encounter. The data comes from all [place] treatment facilities. Date/Time Radiology Report Provider Source Sep 26, 2023 08:32 AM SPINE LUMBOSACRAL MIN 2 VIEWS: FILEMONGUSTAVO Lockhart CATHERINE -1940 M Exm Date: SEP 26, 2023@08:32 Req Phys: TRACY CARRILLO Pat Loc: CWM/SO/PACT 7 (Req'g Loc) Img Loc: [facility] 1 Service: Unknown (Case [id number] COMPLETE) SPINE LUMBOSACRAL MIN 2 VIEWS (RAD Detailed) CPT:47663 Reason for Study: lumbar pain Clinical History: 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, fellow, [facility] or attending: Tracy Carrillo NP [place] Pager: [phone] Backup pager: History: chronic lumbar spine pain Report Status: Verified Date Reported: SEP 26, 2023 Date Verified: SEP 26, 2023 Cutter Grinder Operator E-Sig:/ES/CHERYLE GUZMAN JR Report: Study: AP, [...] Primary Interpreting Staff: CHERYLE GUZMAN JR, Radiologist (Cutter Grinder Operator) /CHERYLE VALENCIA JR [facility] Sep 26, 2023 08:32 AM HIP 2-3 VIEWS (RIGHT) WITH OR WITHOUT PELVIS: GUSTAVO ARAMBULA CATHERINE -1940 M Ex Date: SEP 26, 2023@08:32 Req Phys: TRACY CARRILLO Pat Loc: CWM/SO/PACT 7 (Req'g Loc) Img Loc: [facility] 1 Service: Unknown (Case [id number] COMPLETE) HIP 2-3 VIEWS (RIGHT) WITH OR WIT(RAD Detailed) CPT:99049 CPT Modifiers : RT RIGHT SIDE Reason for Study: hip pain Clinical History: 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, fellow, [facility]OR [facility] or attending: Tracy Carrillo NP [place] Pager: [phone] Backup pager: History: chronic right hip pain, hx CAROL ANN Report Status: Verified Date Reported: SEP 26, 2023 Date Verified: SEP 26, 2023 Cutter Grinder Operator E-Sig:/ES/CHERYLE GUZMAN JR Report: Study: AP [...] Primary Interpreting Staff: CHERYLE GUZMAN JR, Radiologist (Cutter Grinder Operator) /CHERYLE VALENCIA JR [facility] Sep 05, 2023 11:05 AM HIP 2-3 VIEWS(LEFT) WITH OR WITHOUT PELVIS: GUSTAVO ARAMBULA -1940 M [facility] Date: SEP 05, 2023@11:05 Req Phys: DANIELE CHILDS Pat Loc: CWM/NO/PACT/FIRM [facility] (Req'g Loc Img Loc: [facility] 1 Service: Unknown (Case 18 COMPLETE) HIP 2-3 VIEWS(LEFT) WITH OR WITHO(RAD Detailed) CPT:24327 Proc Modifiers : LEFT CPT Modifiers : LT LEFT SIDE Reason for Study: chronic left hip pain Clinical History: Report Status: Verified Date Reported: SEP 05, 2023 Date Verified: SEP 05, 2023 Cutter Grinder Operator E-Sig:/ES/CHERYLE GUZMAN JR Report: Study: AP [...] Primary Interpreting Staff: CHERYLE GUZMAN JR, Radiologist (Cutter Grinder Operator) /CECILIA GUZMAN,CHERYLE Gomez JR [facility]
--- OUTSIDE RECORDS SUMMARY | 2024-08-16 09:31 | XMS_ITS | Encounter Summary ---
Author Name [facility] [facility] [place] [facility] [place] Address [address] [place] [address] Care Team Providers Care Turn Out Name Role Phone NELL CARRILLO Primary Care [...] PHI MEDEX BRONZ E December 19, 2013 [id number] [phone] GUSTAVO ARAMBULA SR PATIENT [employer] MEDICARE SUPPLEMEN PHI MEDIC ARE SUPPL EMENT Jul 21, 2007 NONE [id number] [phone] Edgar ARAMBULA PATIENT [place] MED[place] SUPPLEMEN PHI MEDEX BRONZ E December 19, 2013 [id number] GUSTAVO ARAMBULA SR PATIENT [place] MEDICARE SUPPLEMEN PHI MEDEX BRONZ E December 19, 2013 [id number] Edgar ARAMBULA PATIENT MEDICARE (WNR) MEDICARE () PART A Oct 19, 2004 PART A [id number] Edgar ARAMBULA PATIENT MEDICARE (WNR) MEDICARE (M) PART B Oct 19, 2004 PART B [id number] Edgar ARAMBULA [place] PATIENT MEDICARE (WNR) MEDICARE () PART A Oct 19, 2004 PART A [id number] Edgar ARAMBULAN PATIENT MEDICARE (WNR) MEDICARE () PART B Oct 19, 2004 PART B [id number] Edgar ARAMBULAN PATIENT MEDICARE (WNR) MEDICARE () PART A Oct 19, 2004 PART A [id number] Edgar ARAMBULAN PATIENT MEDICARE (WNR) MEDICARE () PART B Oct 19, 2004 PART B [id number] [id number] Edgar ARAMBULAN PATIENT MEDICARE (WNR) MEDICARE () PART A Oct 19, 2004 PART A [id number] Edgar ARAMBULA PATIENT MEDICARE (WNR) MEDICARE () PART B Oct 19, 2004 PART B [id number] Edgar ARAMBULAN PATIENT MEDICARE (WNR) MEDICARE () PART A Oct 19, 2004 PART A [id number] Edgar ARAMBULAN PATIENT MEDICARE (WNR) MEDICARE () PART B Oct 19, 2004 PART B [id number] Edgar ARAMBULAN PATIENT Selected Encounter This section includes the information on record at [place] for the Encounter. Date/Time Encounter Type Encounter Description Reason Pro vider Source Sep 11, 2023 08:45 AM Outpatient Encounter COMMUNITY CARE CONSULT IHE [...] 20 appointments. The data comes from all [facility]. Appointment Date/Time Appointment Type Appointme nt Facility Name Sep 12, 2023 10:00 AM AMBULATORY - PSYCHIATRY [facility] [place] [facility] Sep 25, 2023 10:30 AM [facility]BULATORY - MEDICINE [facility] Sep 26, 2023 08:27 AM AMBULATORY - NONE [facility] [place] [facility] Sep 26, 2023 12:00 PM AMBULATORY - MEDICINE [place] [facility] [place] [facility] Oct 16, 2023 09:00 AM AMBULATORY - MEDICINE [place] [facility] [place] [facility] Nov 06, 2023 09:30 AM AMBULATORY - MEDICINE [place] [facility] [place] [facility] December 21, 2023 09:00 AM AMBULATORY - PSYCHIATRY [facility] [place] [facility] December 25, 2023 09:00 AM AMBULATORY - MEDICINE [facility] Feb 05, 2024 10:00 AM AMBULATORY - MEDICINE [place] [facility] [place] [facility] Feb 13, 2024 11:30 AM AMBULATORY - MEDICINE [facility] Feb 15, 2024 09:00 AM AMBULATORY - PSYCHIATRY [facility] [place] [facility] Feb 15, 2024 09:45 AM AMBULATORY - NONE [facility] [place] [facility] Mar 07, 2024 09:00 AM AMBULATORY - PSYCHIATRY [facility] [place] [facility] Mar 08, 2024 08:30 AM AMBULATORY - NONE [place] [facility] [place] [facility] Mar 11, 2024 09:00 AM [facility] Active, Pending, and Scheduled Orders This section includes a listing of several types of active, pending, and scheduled orders, including clinic medications orders, diagnostic test orders, procedure orders and consult orders; where the start date of the order is 45 days before the date of the Encounter or 45 days after the date of theEncounter. The data comes from all [facility]. 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 Radiology Reports and Pathology Reports are provided separately, in subsequent sections. Lab Results This section contains the Chemistry/Hematology Results that were resulted 30 days before or 30 daysafter the date of the Encounter. Date/Time Source Result Type Result - Unit Interpretation Reference Range Comment Sep 05, 2023 10:56 AM [facility] FERRITIN Specimen Type: SERUM No comment entered. Ordering Provider: YOAN CHILDS Report Released Date/Time: Sep 05, 2023 10:30 AM Reporting Lab: [facility] [address] Performing Lab: [facility] [address] [address] FERRITIN 25 ng/mL 20-300 Sep 05, 2023 10:56 AM [facility] IRON & TIBC PANEL Specimen Type: SERUM No comment entered. Ordering Provider: YOAN CHILDS Report Released Date/Time: Sep 05, 2023 10:30 AM Reporting Lab: [facility] [address] Performing Lab: [facility]ETS [address] [address] TIBC 401 ug/dL 204-475 IRON 53 ug/dL 40-160 Transferrin Saturation 13.2 L 20.0-50.0 Sep 05, 2023 10:56 AM [facility] CBC AND DIFF (AUTO) Specimen Type: BLOOD No comment entered. Ordering Provider: YOAN CHILDS Report Released Date/Time: Sep 05, 2023 10:30 AM Reporting Lab: [facility] [address] [address] Performing Lab: [facility] [address] [facility] [address] WBC 5.66 10*3/uL 4.50-11.00 RBC 4.25 10*6/uL 4.23-5.66 HGB 12.1 g/dL L 12.8-17 HCT 35.5 L 39.2-50.4 MCV 83.5 fL 82-99 MCHC 34.1 g/dL 30.8-35.1 PLT 295 10*3/uL 140-360 RDW-CV 12.0 12.0-16.0 [place], Abs 0.59 10*3/uL 0.30-1.10 MCH 28.5 pg 26.2-32.6 Neut % 56.3 43.7-75.8 Lymph % 27.2 14.0-42.3 [place] % 10.4 5.1-13.7 Eos % 4.1 0.4-6.8 Baso % 1.6 0.1-2.0 Neut, Abs 3.19 10*3/uL 2.20-7.60 Lymph, Abs 1.54 10*3/uL 1.00-3.20 Eos, Abs 0.23 10*3/uL 0.03-0.44 Baso, Abs 0.09 10*3/uL 0.01-0.13 Immature Gran % 0.4 0.0-0.7 Immature Gran, Abs 0.02 10*3/uL 0.00-0.06 Sep 01, 2023 10:29 AM [facility] HEMOGLOBIN A1C PANEL Specimen Type: BLOOD [...] Aug 17, 2023 08:25 AM Reporting Lab: [address] [address] Performing Lab: [address] [address] HEMOGLOBIN A1C 6.7 H 4.0-5.6 Sep 01, 2023 10:29 AM [facility] LIPID PANEL FASTING Specimen Type: SERUM No comment entered. Ordering Provider: YULY AUSTIN Report Released Date/Time: Aug 17, 2023 08:25 AM Reporting Lab: [facility] [address] [facility] [address] Performing Lab: [facility] [address] [facility] [address] CHOLESTEROL 133 mg/dL TRIGLYCERIDE 73 mg/dL 0-150 LDL calculated 75 mg/dL 0-129 CHOL/HDL 3.1 HDL CHOLESTEROL 43 mg/dL 40-60 Sep 01, 2023 10:29 AM [facility] BASIC METABOLIC PANEL (fasting) Specimen Type: SERUM No comment entered. Ordering Provider: YULY AUSTIN Report Released Date/Time: Aug 17, 2023 08:25 AM Reporting Lab: [facility] [address] [facility] [address] Performing Lab: [address] [address] UREA NITROGEN 10 mg/dL 7-25 GLUCOSE 135 mg/dL H 65-100 SODIUM 138 mmol/L 135-145 POTASSIUM 3.9 mmol/L 3.5-5.0 CHLORIDE 101 mmol/L 100-110 CO2 27 meq/L 20-30 CREATININE, Serum 0.73 mg/dL 0.50-1.40 eGFR(CKD-EPI 2020) 90 mL/min >60 Sep 01, 2023 10:29 AM [facility] LIVER FUNCTION Specimen Type: SERUM No comment entered. Ordering Provider: YULY AUSTIN Report Released Date/Time: Aug 17, 2023 08:25 AM Reporting Lab: [facility] [address] [facility] [address] Performing Lab: [address] [address] PROTEIN,TOTAL 6.9 g/dL 6.0-8.3 ALBUMIN 3.8 g/dL 3.5-5.0 ALKALINE PHOSPHATASE 91 U/L 40-150 AST 14 U/L 5-34 ALT 13 U/L BILIRUBIN, TOTAL 0.5 mg/dL 0.2-1.2 Sep 01, 2023 10:29 AM [facility] MICROALBUMIN CREATININE RATIO PANEL Specimen Type: URINE No comment entered. Ordering Provider: YULY AUSTIN Report Released Date/Time: Aug 17, 2023 08:25 AM Reporting Lab: [facility] [address] [facility] [address] Performing Lab: [facility] [address] [facility] [address] MICROALBUMIN/C REATININE RATIO 9.0 mg/g 0-29.9 MICROALBUMIN,Q UANTITATIVE 1.0 mg/dL RR UNAVAIL CREATININE URINE 110.79 mg/dL Sep 01, 2023 10:29 AM [facility] CBC AND DIFF (AUTO) Specimen Type: BLOOD No comment entered. Ordering Provider: YULY AUSTIN Report Released Date/Time: Aug 17, 2023 08:25 AM Reporting Lab: [facility] [address] [facility] [address] Performing Lab: [facility] [address] [facility] [address] WBC 8.35 10*3/uL 4.50-11.00 RBC 4.17 10*6/uL L 4.23-5.66 HGB 12.0 g/dL L 12.8-17 HCT 35.3 L 39.2-50.4 MCV 84.7 fL 82-99 MCHC 34.0 g/dL 30.8-35.1 PLT 305 10*3/uL 140-360 RDW-CV 12.3 12.0-16.0 [place], Abs 0.71 10*3/uL 0.30-1.10 MCH 28.8 pg 26.2-32.6 Neut % 66.3 43.7-75.8 Lymph % 20.8 14.0-42.3 [place] % 8.5 5.1-13.7 Eos % 3.0 0.4-6.8 [...] and tobacco- related health factors from the [place] facility where the Encounter took place. Current Smoking Status This section includes the most current smoking, or tobacco-related health factor, from the [place] facility where the Encounter took place. Date/Time Current Smoking Status Comment [facility] Dec 13, 2022 03:00 PM VA-TOBACCO USER EVERY DAY [place] [facility] Tobacco Use History This section includes a history of the smoking, or tobacco-related health factors, that were collected on or before the date of the Encounter. The data comes from the [place] facility where the Encounter took place. 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 [facility] [place] [facility] Dec 13, 2022 03:00 PM VA-TOBACCO USE MED NO [facility] [place] [facility] Dec 13, 2022 03:00 PM VA-TOBACCO USER EVERY DAY [facility] [place] [facility] Nov 17, 2021 10:00 AM VA-TOBACCO USE 30 YEARS OR MORE [facility] [place] [facility] Nov 17, 2021 10:00 AM VA-TOBACCO USE ADVICE [facility] [place] [facility] Nov 17, 2021 10:00 AM 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 [facility] [place] [facility] Nov 17, 2021 10:00 AM VA-TOBACCO USE MED NO [facility] Nov 17, 2021 10:00 AM VA-TOBACCO USE WI 30 MIN OF WAKEUP [facility] Nov 17, 2021 10:00 AM VA-TOBACCO USER EVERY DAY [facility] Oct 14, 2013 12:55 PM V1-PT NOT INTERESTED IN QUIT TOBACCO USE [facility] May 07, 2013 05:04 PM CURRENT SMOKER trying to stop [facility] May 07, 2013 05:04 PM V1-PT DECLINES REF TO TOBACCO CESS PRGM [facility] May 07, 2013 05:04 PM V1-PT DECLINES TOBACCO CESSATION MEDS [facility] May 07, 2013 05:04 PM V1-PT READY TO QUIT TOBACCO USE [facility] Dec 03, 2012 08:23 AM V1-PT DECLINES REF TO TOBACCO CESS PRGM [facility] Dec 03, 2012 08:23 AM V1-PT DECLINES TOBACCO CESSATION MEDS [facility] Dec 03, 2012 08:23 AM V1-PT THINKING ABOUT QUIT TOBACCO USE [facility] Jun 05, 2012 08:45 AM CURRENT SMOKER 1/2ppd [facility] Jun 05, 2012 08:45 AM V1-PT DECLINES REF TO TOBACCO CESS PRGM [facility]TERPR[facility] Jun 05, 2012 08:45 AM V1-PT THINKING ABOUT QUIT TOBACCO USE [facility] Jun 05, 2012 08:45 AM V1-TOBACCO CESS MEDS NOT PRESCRIBED Vet wants to talk to his provider-He is nervous about taking meds to quit- but he is interested in quitting [facility] Nov 25, 2011 09:14 AM V1-PT DECLINES REF TO TOBACCO CESS PRGM [facility] Nov 25, 2011 09:14 AM V1-PT DECLINES TOBACCO CESSATION MEDS [facility] [place] [facility] Nov 25, 2011 09:14 AM V1-PT THINKING ABOUT QUIT TOBACCO USE [facility] [place] [facility] May 06, 2011 01:02 PM CURRENT SMOKER [facility] [place] [facility] May 06, 2011 01:02 PM V1-PT DECLINES TOBACCO CESSATION MEDS [facility] [place] [facility] May 06, 2011 01:02 PM V1-PT NOT INTERESTED IN QUIT TOBACCO USE [facility] [place] [facility] Sep 24, 2010 08:51 AM V1-PT DECLINES TOBACCO CESSATION MEDS [facility] [place] [facility] Sep 24, 2010 08:51 AM V1-PT THINKING ABOUT QUIT TOBACCO USE [facility] [place] [facility] Mar 22, 2010 07:58 AM CURRENT SMOKER 1/2 ppd [facility] [place] [facility] Feb 25, 2009 12:05 PM QUIT TOBACCO USE IN PAST [facility]AR [facility] [place] [facility] Aug 26, 2008 09:28 AM CURRENT SMOKER 1/2 ppd [facility] [place] [facility] Aug 26, 2008 09:28 AM V1-PT DECLINES REF TO TOBACCO CESS PR[facility] [place] [facility] Aug 26, 2008 09:28 AM V1-PT READY TO QUIT TOBACCO USE [facility] [place] [facility] Dec 19, 2007 10:08 AM V1-PT DECLINES REF TO TOBACCO CESS PRGM [facility] [place] [facility] Dec 19, 2007 10:08 AM V1-PT DECLINES TOBACCO CESSATION MEDS [facility] [place] [facility] Dec 19, 2007 10:08 AM V1-PT THINKING ABOUT QUIT TOBACCO USE [facility] [place] [facility] Sep 11, 2007 11:10 AM CURRENT SMOKER [facility] [place] [facility] Sep 11, 2007 11:10 AM V1-PT DECLINES REF TO TOBACCO CESS PRGM [facility] [place] [facility] Sep 11, 2007 11:10 AM V1-PT DECLINES TOBACCO CESSATION MEDS [facility] [place] [facility] Sep 11, 2007 11:10 AM V1-PT THINKING ABOUT QUIT TOBACCO USE [facility] [place] [facility] Feb 13, 2007 01:46 PM V1-PT DECLINES REF TO TOBACCO CESS PRGM [facility] Feb 13, 2007 01:46 PM V1-PT DECLINES TOBACCO CESSATION MEDS [facility] Feb 13, 2007 01:46 PM V1-PT THINKING ABOUT QUIT TOBACCO USE [facility] Oct 02, 2006 08:28 AM QUIT TOBACCO USE IN PAST YEAR 3 months ago [facility] Aug 19, 2005 08:33 AM QUIT TOBACCO USE IN PAST YEAR nonsmoker [facility] Sep 21, 2004 09:54 AM CURRENT SMOKER [facility] Sep 07, 2004 08:07 AM CURRENT SMOKER [facility] Sep 15, 2003 11:21 AM CURRENT SMOKER smokes one pk day [facility] Jul 23, 2003 01:57 PM CURRENT SMOKER [facility] Advance Directives: All historical and current Section Date Range: From patient's date of to the date document was created. This section includes ALL of a patient's completed or amended [place] Advance and Rescinded Directives. The entries below indicate that a directive exists for the patient, but an actual copy is not included with this document. The data comes from all [facility]. Date Advance Directives Provider Source Apr 10, 2023 ADVANCE DIRECTIVE [facility] Apr 19, 2007 ADVANCE DIRECTIVE VICTORIA [...] the Encounter. The data comes from all [place] treatment facilities. Date/Time Radiology Report Provider Source Sep 26, 2023 08:32 AM SPINE LUMBOSACRAL MIN 2 VIEWS: GUSTAVO ARAMBULA 1940 M Exm Date: SEP 26, 2023@08:32 Req Phys: NELL CARRILLO Loc: CWM/SO/PACT 7 (Req'g Loc) Img Loc: [facility] 1 Service: Unknown (Case [id number] COMPLETE) SPINE LUMBOSACRAL MIN 2 VIEWS (RAD Detailed) CPT:28068 Reason for Study: lumbar pain Clinical History: 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, fellow, SURGICAL RN or attending: Nell Carrillo NP [place] Pager: [phone] Backup pager: History: chronic lumbar spine pain Report Status: Verified Date Reported: SEP 26, 2023 Date Verified: SEP 26, 2023 Emergency Room Tech E-Sig:/ES/CHERYLE GUZMAN JR Report: Study: AP, lateral [...] Primary Interpreting Staff: CHERYLE GUZMAN JR, Radiologist (Emergency Room Tech) /CHERYLE VALENCIA JR [place] [facility] [place] [facility] Sep 26, 2023 08:32 AM HIP 2-3 VIEWS (RIGHT) WITH OR WITHOUT PELVIS: GUSTAVO ARAMBULA 1940 M Exm Date: SEP 26, 2023@08:32 Req Phys: NELL CARRILLO Loc: CWM/SO/PACT 7 (Req'g Loc) Img Loc: [facility] 1 Service: Unknown (Case [id number] COMPLETE) HIP 2-3 VIEWS (RIGHT) WITH OR WIT(RAD Detailed) CPT:87548 CPT Modifiers : RT RIGHT SIDE Reason for Study: hip pain Clinical History: 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, fellow, SURGICAL RN or attending: Nell Carrillo NP [place] Pager: [phone] Backup pager: History: chronic right hip pain, hx CAROL ANN Report Status: Verified Date Reported: SEP 26, 2023 Date Verified: SEP 26, 2023 Emergency Room Tech E-Sig:/ES/CHERYLE GUZMAN JR Report: Study: AP view [...] Primary Interpreting Staff: CHERYLE GUZMAN JR, Radiologist (Emergency Room Tech) /CHERYLE VALENCIA JR [place] [facility] Sep 05, 2023 11:05 AM HIP 2-3 VIEWS(LEFT) WITH OR WITHOUT PELVIS: GUSTAVO ARAMBULA -1940 M [facility] Date: SEP 05, 2023@11:05 Req Phys: DANIELE CHILDS Pat Loc: CWM/NO/PACT/FIRM SURGICAL RN (Req'g Loc Img Loc: [facility] 1 Service: Unknown (Case [id number] COMPLETE) HIP 2-3 VIEWS(LEFT) WITH OR WITHO(RAD Detailed) CPT:77677 Proc Modifiers : LEFT CPT Modifiers : LT LEFT SIDE Reason for Study: chronic left hip pain Clinical History: Report Status: Verified Date Reported: SEP 05, 2023 Date Verified: SEP 05, 2023 Emergency Room Tech E-Sig:/ES/CHERYLE GUZMAN JR Report: Study: AP view [...] Primary Interpreting Staff: CHERYLE GUZMAN JR, Radiologist (Emergency Room Tech) /CHERYLE VALENCIA JR [facility]
--- OUTSIDE RECORDS SUMMARY | 2024-08-16 09:31 | XMS_ITS | Encounter Summary ---
Author Name [facility] [place] [facility] [place] [facility] [place] Address [address] [place] [address] Care Team Providers Care Insurance Inspector Name Role Phone TRACY CARRILLO Primary Care [...] PHI MEDEX BRONZ E December 19, 2013 [id number] GUSTAVO ARAMBULA SR PATIENT [employer] MEDICARE SUPPLEMEN PHI MEDIC ARE SUPPL EMENT Jul 21, 2007 NONE [id number] Edgar ARAMBULA PATIENT [place] SUPPLEMEN PHI MEDEX BRONZ E December 19, 2013 [id number] GUSTAVO ARAMBLUA SR PATIENT [place] MEDICARE SUPPLEMEN PHI MEDEX BRONZ E December 19, 2013 [id number] Edgar ARAMBULA PATIENT MEDICARE (WNR) MEDICARE (M) PART A Oct 19, 2004 PART A [id number] Edgar AARMBULAN PATIENT MEDICARE (WNR) MEDICARE (M) PART B Oct 19, 2004 PART B [id number] [id number] Edgar ARAMBULAN PATIENT MEDICARE (WNR) MEDICARE (M) PART A Oct 19, 2004 PART A [id number] Edgar ARAMBULAN PATIENT MEDICARE (WNR) MEDICARE (M) PART B Oct 19, 2004 PART B [id number] Edgar ARAMBULAN PATIENT MEDICARE (WNR) MEDICARE (M) PART A Oct 19, 2004 PART A [id number] [id number] Edgar ARAMBULAN PATIENT MEDICARE (WNR) MEDICARE () PART B Oct 19, 2004 PART B [id number] Edgar ARAMBULAN PATIENT MEDICARE (WNR) MEDICARE () PART A Oct 19, 2004 PART A [id number] Edgar ARAMBULA PATIENT MEDICARE (WNR) MEDICARE () PART B Oct 19, 2004 PART B [id number] Edgar ARAMBULAN PATIENT MEDICARE (WNR) MEDICARE () PART A Oct 19, 2004 PART A [id number] Edgar ARAMBULAN PATIENT MEDICARE (WNR) MEDICARE () PART B Oct 19, 2004 PART B [id number] Edgar ARAMBULA PATIENT Selected Encounter This section includes the information on record at [place] for the Encounter. Date/Time Encounter Type Encounter Description Reason Pro vider Source Sep 13, 2023 09:21 AM Outpatient Encounter ADMIN PAT ACTIVTIES (MASNONCT) IHE Encounter Template Text not used by [place] Plan of Treatment: Future Appointments (+ 6 months) and Future Tests (+/- 45 days) The Plan of Treatment section includes future care activities for the patient [facility] [place] [facility] This section includes future appointments and future orders which are active, pending or scheduled. Future Appointments This section includes appointments that were scheduled to occur 6 months from the date of the Encounter, up to a maximum of 20 appointments. The data comes from all [facility]. Appointment Date/Time Appointment Type Appointme nt Facility Name Sep 25, 2023 10:30 AM AMBULATORY - MEDICINE [facility] Sep 26, 2023 08:27 AM AMBULATORY - NONE [place] [facility] [place] [facility] Sep 26, 2023 12:00 PM AMBULATORY - MEDICINE [place] [facility] [place] [facility] Oct 16, 2023 09:00 AM AMBULATORY - MEDICINE [place] [facility] [place] [facility] Nov 06, 2023 09:30 AM AMBULATORY - MEDICINE [place] [facility] [place] [facility] December 21, 2023 09:00 AM AMBULATORY - PSYCHIATRY [place] [facility] [place] [facility] December 25, 2023 09:00 AM [facility] Feb 05, 2024 10:00 AM AMBULATORY - MEDICINE [place] [facility] [place] [facility] Feb 13, 2024 11:30 AM AMBULATORY - MEDICINE [facility] Feb 15, 2024 09:00 AM AMBULATORY - PSYCHIATRY [place] [facility] [place] [facility] Feb 15, 2024 09:45 AM AMBULATORY - NONE [place] [facility] [place] [facility] Mar 07, 2024 09:00 AM AMBULATORY - PSYCHIATRY [place] [facility] [place] [facility] Mar 08, 2024 08:30 AM AMBULATORY - NONE [place] [facility] [place] [facility] Mar 11, 2024 09:00 AM [facility] Active, Pending, and Scheduled Orders This section includes a listing of several types of active, pending, and scheduled orders, including clinic medications orders, diagnostic test orders, procedure orders and consult orders; where the start date of the order is 45 days before the date of the Encounter or 45 days after the date of theEncounter. The data comes from all [facility]. Test Date/Time Test Type Test Details Facility Name Sep 05, 2023 12:00 AM Laboratory - Chemi stry Order OCCULT BLOOD FIT X1 SCREEN(IN-HOUSE) STOOL FECES SP [facility] [place] [facility] Sep 26, 2023 09:55 AM Consult Order [facility] GENERAL Cons Director Targeted Marketing's Choice [place] Lab Results: +/- 30 days of the [...] Range Comment Sep 05, 2023 10:[address] [facility] FERRITIN Specimen Type: SERUM No comment entered. Ordering Provider: YOAN CHILDS Report Released Date/Time: Sep 05, 2023 10:30 AM Reporting Lab: [facility] [address] [address] Performing Lab: [facility] [address] [address] FERRITIN 25 ng/mL 20-300 Sep 05, 2023 10:[address] [facility] IRON & TIBC PANEL Specimen Type: SERUM No comment entered. Ordering Provider: YOAN CHILDS Report Released Date/Time: Sep 05, 2023 10:30 AM Reporting Lab: [facility] [place] [facility] [address] [facility] [address] Performing Lab: [facility] [address] [address] TIBC 401 ug/dL 204-475 IRON 53 ug/dL 40-160 Transferrin Saturation 13.2 L 20.0-50.0 Sep 05, 2023 10:[address] [facility] CBC AND DIFF (AUTO) Specimen Type: BLOOD No comment entered. Ordering Provider: YOAN CHILDS Report Released Date/Time: Sep 05, 2023 10:30 AM Reporting Lab: [facility] [address] [address] Performing Lab: [facility] [address] [address] WBC 5.66 10*3/uL 4.50-11.00 RBC 4.25 10*6/uL 4.23-5.66 HGB 12.1 g/dL L 12.8-17 HCT 35.5 L 39.2-50.4 MCV 83.5 fL 82-99 MCHC 34.1 g/dL 30.8-35.1 PLT 295 10*3/uL 140-360 RDW-CV 12.0 12.0-16.0 Frontier, Abs 0.59 10*3/uL 0.30-1.10 MCH 28.5 pg 26.2-32.6 Neut % 56.3 43.7-75.8 Lymph % 27.2 14.0-42.3 Frontier % 10.4 5.1-13.7 Eos % 4.1 0.4-6.8 Baso % 1.6 0.1-2.0 Neut, Abs 3.19 10*3/uL 2.20-7.60 Lymph, Abs 1.54 10*3/uL 1.00-3.20 Eos, Abs 0.23 10*3/uL 0.03-0.44 Baso, Abs 0.09 10*3/uL 0.01-0.13 Immature Gran % 0.4 0.0-0.7 Immature Gran, Abs 0.02 10*3/uL 0.00-0.06 Sep 01, 2023 10:29 AM [facility] BASIC METABOLIC PANEL (fasting) Specimen Type: SERUM No comment entered. Ordering Provider: YULY AUSTIN Report Released Date/Time: Aug 17, 2023 08:25 AM Reporting Lab: [facility] [address] [facility] [address] Performing Lab: [facility] [address] [facility] [address] UREA NITROGEN 10 mg/dL 7-25 GLUCOSE 135 mg/dL H 65-100 SODIUM 138 mmol/L 135-145 POTASSIUM 3.9 mmol/L 3.5-5.0 CHLORIDE 101 mmol/L 100-110 CO2 27 meq/L 20-30 CREATININE, Serum 0.73 mg/dL 0.50-1.40 eGFR(CKD-EPI 2020) 90 mL/min >60 Sep 01, 2023 10:29 AM [facility] LIPID PANEL FASTING Specimen Type: SERUM No comment entered. Ordering Provider: YULY AUSTIN Report Released Date/Time: Aug 17, 2023 08:25 AM Reporting Lab: [facility] [address] [facility] [address] Performing Lab: [facility] [address] [facility] [address] CHOLESTEROL 133 mg/dL TRIGLYCERIDE 73 mg/dL 0-150 LDL calculated 75 mg/dL 0-129 CHOL/HDL 3.1 HDL CHOLESTEROL 43 mg/dL 40-60 Sep 01, 2023 10:29 AM [facility] HEMOGLOBIN A1C PANEL Specimen Type: BLOOD [...] Aug 17, 2023 08:25 AM Reporting Lab: [facility] [address] [facility] [address] Performing Lab: [facility] [address] [facility] [address] HEMOGLOBIN A1C 6.7 H 4.0-5.6 Sep 01, 2023 10:29 AM [facility] MICROALBUMIN CREATININE RATIO PANEL Specimen Type: URINE No comment entered. Ordering Provider: YULY AUSTIN Report Released Date/Time: Aug 17, 2023 08:25 AM Reporting Lab: [facility] [address] [facility] [address] Performing Lab: [facility] [address] [facility] [address] MICROALBUMIN/C REATININE RATIO 9.0 mg/g 0-29.9 MICROALBUMIN,Q UANTITATIVE 1.0 mg/dL RR UNAVAIL CREATININE URINE 110.79 mg/dL Sep 01, 2023 10:29 AM [facility] CBC AND DIFF (AUTO) Specimen Type: BLOOD No comment entered. Ordering Provider: YULY AUSTIN Report Released Date/Time: Aug 17, 2023 08:25 AM Reporting Lab: [address] [address] Performing Lab: [address] [address] WBC 8.35 10*3/uL 4.50-11.00 RBC 4.17 10*6/uL L 4.23-5.66 HGB 12.0 g/dL L 12.8-17 HCT 35.3 L 39.2-50.4 MCV 84.7 fL 82-99 MCHC 34.0 g/dL 30.8-35.1 PLT 305 10*3/uL 140-360 RDW-CV 12.3 12.0-16.0 Frontier, Abs 0.71 10*3/uL 0.30-1.10 MCH 28.8 pg 26.2-32.6 Neut % 66.3 43.7-75.8 Lymph % 20.8 14.0-42.3 Frontier % 8.5 5.1-13.7 Eos % 3.0 0.4-6.8 Baso % 1.0 0.1-2.0 Neut, Abs 5.54 10*3/uL 2.20-7.60 Lymph, Abs 1.74 10*3/uL 1.00-3.20 Eos, Abs 0.25 10*3/uL 0.03-0.44 Baso, Abs 0.08 10*3/uL 0.01-0.13 Immature Gran % 0.4 0.0-0.7 Immature Gran, Abs 0.03 10*3/uL 0.00-0.06 Sep 01, 2023 10:29 AM [facility] LIVER FUNCTION Specimen Type: SERUM No comment entered. Ordering Provider: YULY AUSTIN Report Released Date/Time: Aug 17, 2023 08:25 AM Reporting Lab: [address] [address] Performing Lab: [facility] [place] [facility] [address] [facility] [address] PROTEIN,TOTAL 6.9 g/dL 6.0-8.3 ALBUMIN 3.8 g/dL 3.5-5.0 ALKALINE PHOSPHATASE 91 U/L 40-150 AST 14 U/L 5-34 ALT 13 U/L BILIRUBIN, TOTAL 0.5 mg/dL 0.2-1.2 Social History: Smoking Status (Most current) and [...] took place. Date/Time Current Smoking Status Comment [facility] Dec 13, 2022 03:00 PM VA-TOBACCO USER EVERY DAY [place] [facility] Tobacco Use History This section includes [...] Dec 13, 2022 03:00 PM VA-TOBACCO USE SEARCH ENGINE OPTIMIZATION ANALYST NO [facility] [place] [facility] Nov 17, 2021 10:00 AM VA-TOBACCO USE SEARCH ENGINE OPTIMIZATION ANALYST NO [facility] [place] [facility] Nov 17, 2021 10:00 AM VA-TOBACCO USE MED NO [facility] [place] Nov 17, 2021 10:00 AM VA-TOBACCO USE [place] [address] [facility] Nov 17, 2021 10:00 AM VA-TOBACCO USER EVERY DAY [facility] Oct 14, 2013 12:55 PM V1-PT NOT INTERESTED IN QUIT TOBACCO USE [facility] [place] [facility] May 07, 2013 05:04 PM CURRENT SMOKER trying to stop [facility] May 07, 2013 05:04 PM V1-PT DECLINES REF TO TOBACCO CESS PRGM [facility] May 07, 2013 05:04 PM V1-PT DECLINES TOBACCO CESSATION MEDS [facility] May 07, 2013 05:04 PM V1-PT READY TO QUIT TOBACCO USE [facility] Dec 03, 2012 08:23 AM V1-PT DECLINES REF TO TOBACCO CESS PRGM [facility] Dec 03, 2012 08:23 AM V1-PT DECLINES TOBACCO CESSATION MEDS [facility] Dec 03, 2012 08:23 AM V1-PT THINKING ABOUT QUIT TOBACCO USE [facility] Jun 05, 2012 08:45 AM CURRENT SMOKER 1/2ppd [facility] Jun 05, 2012 08:45 AM V1-PT DECLINES REF TO TOBACCO CESS PRGM [facility] Jun 05, 2012 08:45 AM V1-PT THINKING ABOUT QUIT TOBACCO USE [facility] Jun 05, 2012 08:45 AM V1-TOBACCO CESS MEDS NOT PRESCRIBED Vet wants to talk to his provider-He is nervous about taking meds to quit- but he is interested in quitting [facility] Nov 25, 2011 09:14 AM V1-PT DECLINES REF TO TOBACCO CESS PRGM [facility] Nov 25, 2011 09:14 AM V1-PT DECLINES TOBACCO CESSATION MEDS [facility] Nov 25, 2011 09:14 AM V1-PT THINKING ABOUT QUIT TOBACCO USE [facility] [place] [facility] May 06, 2011 01:02 PM CURRENT SMOKER [facility] [place] [facility] May 06, 2011 01:02 PM V1-PT DECLINES TOBACCO CESSATION MEDS [facility] [place] [facility] May 06, 2011 01:02 PM V1-PT NOT INTERESTED IN QUIT TOBACCO USE [facility] [place] [facility] Sep 24, 2010 08:51 AM V1-PT DECLINES TOBACCO CESSATION MEDS [facility] [place] [facility] Sep 24, 2010 08:51 AM V1-PT THINKING ABOUT QUIT TOBACCO USE [facility] [place] [facility] Mar 22, 2010 07:58 AM CURRENT SMOKER 1/2 ppd [facility] [place] [facility] Feb 25, 2009 12:05 PM QUIT TOBACCO USE [facility]ST [facility]AR [facility] [place] [facility] Aug 26, 2008 09:28 AM CURRENT SMOKER 1/2 ppd [facility] [place] [facility] Aug 26, 2008 09:28 AM V1-PT DECLINES REF TO TOBACCO CESS PRGM [facility] [place] [facility] Aug 26, 2008 09:28 AM V1-PT READY TO QUIT TOBACCO USE [facility] [place] [facility] Dec 19, 2007 10:08 AM V1-PT DECLINES REF TO TOBACCO CESS [facility] [place] [facility] Dec 19, 2007 10:08 AM V1-PT DECLINES TOBACCO CESSATION MEDS [facility] [place] [facility] Dec 19, 2007 10:08 AM V1-PT THINKING ABOUT QUIT TOBACCO USE [facility] [place] [facility] Sep 11, 2007 11:10 AM CURRENT SMOKER [facility] [place] [facility] Sep 11, 2007 11:10 AM V1-PT DECLINES REF TO TOBACCO CESS PRGM [facility] [place] [facility] Sep 11, 2007 11:10 AM V1-PT DECLINES TOBACCO CESSATION MEDS [facility] [place] [facility] Sep 11, 2007 11:10 AM V1-PT THINKING ABOUT QUIT TOBACCO USE [facility] [place] [facility] Feb 13, 2007 01:46 PM V1-PT DECLINES REF TO TOBACCO CESS PRGM [facility] Feb 13, 2007 01:46 PM V1-PT DECLINES TOBACCO CESSATION MEDS [facility] Feb 13, 2007 01:46 PM V1-PT THINKING ABOUT QUIT TOBACCO USE [facility] Oct 02, 2006 08:28 AM QUIT TOBACCO USE IN PAST YEAR 3 months ago [facility] Aug 19, 2005 08:33 AM QUIT TOBACCO USE IN PAST YEAR nonsmoker [facility] Sep 21, 2004 09:54 AM CURRENT SMOKER [facility] Sep 07, 2004 08:07 AM CURRENT SMOKER [facility] Sep 15, 2003 11:21 AM CURRENT SMOKER smokes one pk day [facility] Jul 23, 2003 01:57 PM CURRENT SMOKER [facility] Advance Directives: All historical and current Section Date Range: From patient's date of to the date document was created. This section includes ALL of a patient's completed or amended [place] Advance and Rescinded Directives. The entries below indicate that a directive exists for the patient, but an actual copy is not included with this document. The data comes from all [facility]. Date Advance Directives Provider Source Apr 10, 2023 ADVANCE DIRECTIVE GEORGEESSIE DOZIER [facility] Apr 19, 2007 ADVANCE DIRECTIVE VICTORIA JOHNSON [facility] Radiology Reports: +/- 30 days of [...] the Encounter. The data comes from all [facility] facilities. Date/Time Radiology Report Provider Source Sep 26, 2023 08:32 AM SPINE LUMBOSACRAL MIN 2 VIEWS: GUSTAVO ARAMBULA [id number] DOB-1940 M Exm Date: SEP 26, 2023@08:32 Req Phys: TRACY CARRILLO Pat Loc: CWM/SO/PACT 7 (Req'g Loc) Img Loc: [facility]/BUILDING 1 Service: Unknown (Case [id number] COMPLETE) SPINE LUMBOSACRAL MIN 2 VIEWS (RAD Detailed) CPT:26788 Reason for Study: lumbar pain Clinical History: 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, fellow, GROCERY STOCK CLERK or attending: Tracy Carrillo NP [place] Pager: [phone] Backup pager: History: chronic lumbar spine pain Report Status: Verified Date Reported: SEP 26, 2023 Date Verified: SEP 26, 2023 Heavy Forger E-Sig:/ES/CHERYLE GUZMAN JR Report: Study: AP, lateral [...] Primary Interpreting Staff: CHERYLE GUZMAN JR, Radiologist (Heavy Forger) /CHERYLE VALENCIA JR [place] [facility] Sep 26, 2023 08:32 AM HIP 2-3 VIEWS (RIGHT) WITH OR WITHOUT PELVIS: GUSTAVO ARAMBULA 1940 M Exm Date: SEP 26, 2023@08:32 Req Phys: TRACY CARRILLO Pat Loc: CWM/SO/PACT 7 (Req'g Loc) Img Loc: [facility]/BUILDING 1 Service: Unknown (Case [id number] COMPLETE) HIP 2-3 VIEWS (RIGHT) WITH OR WIT(RAD Detailed) CPT:33303 CPT Modifiers : RT RIGHT SIDE Reason for Study: hip pain Clinical History: 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, fellow, GROCERY STOCK CLERK or attending: Tracy Carrillo NP [place] Pager: [phone] Backup pager: History: chronic right hip pain, hx CAROL ANN Report Status: Verified Date Reported: SEP 26, 2023 Date Verified: SEP 26, 2023 Heavy Forger E-Sig:/ES/CHERYLE GUZMAN JR Report: Study: AP view [...] Primary Interpreting Staff: CHERYLE GUZMAN JR, Radiologist (Heavy Forger) /CHERYLE VALENCIA JR [place] [facility] [facility] Sep 05, 2023 11:05 AM HIP 2-3 VIEWS(LEFT) WITH OR WITHOUT PELVIS: GUSTAVO ARAMBULA -1940 M Ex Date: SEP 05, 2023@11:05 Req Phys: DANIELE CHILDS Pat Loc: CWM/NO/PACT/FIRM GROCERY STOCK CLERK (Req'g Loc Img Loc: [facility] 1 Service: Unknown (Case 18 COMPLETE) HIP 2-3 VIEWS(LEFT) WITH OR WITHO(RAD Detailed) CPT:31789 Proc Modifiers : LEFT CPT Modifiers : LT LEFT SIDE Reason for Study: chronic left hip pain Clinical History: Report Status: Verified Date Reported: SEP 05, 2023 Date Verified: SEP 05, 2023 Heavy Forger E-Sig:/ES/CHERYLE GUZMAN JR Report: Study: AP view [...] Primary Interpreting Staff: CHERYLE GUZMAN JR, Radiologist (Heavy Forger) /CHERYLE VALENCIA JR [facility] Encounter Notes: All associated encounter notes This section contains the clinical notes associated to the Encounter. Date/Time Encounter Note(s) Provider Source Sep 13, 2023 09:21 AM ADMINISTRATIVE NOT E: LOCAL TITLE: CCC: SCHEDULING ADMINISTRATION STANDARD TITLE: ADMINISTRATIVE NOTE DATE OF NOTE: SEP 13, 2023@09:21:25 ENTRY DATE: SEP 13, 2023@09:21:25 AUTHOR: MU GARZON COSIGNER: URGENCY: STATUS: COMPLETED CCC: SCHEDULING ADMINISTRATION Has ADDENDA Patient Demographics Patient Name: GUSTAVO ARAMBULA Patient Primary Phone: [phone] Patient Primary Address: [address] [place] [id number] Patient : 1940 Patient Age: 82 Caller/Recipient Relation to Patient: Self Administrative Administrative Note Reason: Other Administrative Note Comments: vet calling in regard to 09/11 note xray being taken of wrong side asking for call back at mobile number listed /reginaldo/ MU GARZON [facility] v[facility] amsa Signed: 09/13/2023 09:21 Receipt Acknowledged By: 09/13/2023 11:11 /reginaldo/ MARCUS DOZIER LPN LPN 09/13/2023 10:05 /reginaldo/ KAPIL COLLIER,RN-BC REGISTERED NURSE (RN) 09/13/2023 ADDENDUM STATUS: COMPLETED When the was evaluated on September 05, the field underwriter advised the provider had only documented his left side, not his right. The says that regrettably, the provider wrote the incorrect location. The field underwriter informed the that the provider had received an alert on 09/11/23, and that she just signed off on the alert. The field underwriter informed the that he will see his PCP on September 25, and that the physician will be able to assess him during that appointment. The says he's alright and will wait to be seen. /reginaldo/ KAPIL COLLIER,RN-BC REGISTERED NURSE (RN) Signed: 09/13/2023 10:11 MU [facility]AR[facility]ON [facility]
--- OUTSIDE RECORDS SUMMARY | 2024-08-16 09:31 | XMS_ITS | Encounter Summary ---
Author Name [facility] [place] [facility] [place] Address [address] [place] [address] Care Team Providers Care Intensive Care Nurse Name Role Phone TRACY CARRILLO Primary Care [...] PHI MEDEX BRONZ E December 19, 2013 [id number] [phone] GUSTAVO ARAMBULA SR PATIENT [employer] MEDICARE SUPPLEMEN PHI MEDIC ARE SUPPL EMENT Jul 21, 2007 NONE [id number] Edgar ARAMBULA PATIENT BCBS ID MEDICARE SUPPLEMEN PHI MEDEX BRONZ E December 19, 2013 [id number] GUSTAVO ARAMBULA SR PATIENT [place] OF [place] ([place] MEDICARE SUPPLEMEN PHI MEDEX BRONZ E December 19, 2013 [id number] Edgar ARAMBULA [place] PAT[place]IC[place] (WNR) MEDICARE () PART A Oct 19, 2004 PART A [id number] [phone] Edgar ARAMBULA [place] PAT[place] MEDICARE ([place]NR) MEDICARE (M) PART B Oct 19, 2004 PART B [id number] [phone] Edgar ARAMBULA [place] PAT[place] MEDICARE ([place]NR) MEDICARE () PART A Oct 19, 2004 PART A [id number] Edgar ARAMBULA [place] PAT[place] MEDICARE ([place]) MEDICARE () PART B Oct 19, 2004 PART B [id number] Edgar ARAMBULA [place] PAT[place] MEDICARE ([place]) MEDICARE () PART A Oct 19, 2004 PART A [id number] SEVEdgar VIVAR [place] PAT[place]IC[place] ([place]) MEDICARE () PART B Oct 19, 2004 PART B [id number] Edgar ARAMUBLA [place] PAT[place]ICARE ([place]) MEDICARE () PART A Oct 19, 2004 PART A [id number] [phone] Edgar ARAMBULA [place] PATIENT MEDICARE ([place]NR) MEDICARE () PART B Oct 19, 2004 PART B [id number] Edgar ARAMBULA [place] PAT[place] MEDICARE ([place]) MEDICARE () PART A Oct 19, 2004 PART A [id number] Edgar ARAMBULA [place] PATIENT MEDICARE ([place]) MEDICARE () PART B Oct 19, 2004 PART B [id number] Edgar ARAMBULA [place] PATIENT Selected Encounter This section includes the information on record at [place] for the Encounter. Date/Time Encounter Type Encounter Description Reason Provider Source Sep 18, 2023 07:58 AM QNHP OL DIG ASSMT&MGMT 11-20 CLINICAL PHARMACY ICD-10-CM Z04.89 Encounter for examination and observation for oth reasons ELIU NIX IHRichy Encounter Template Text not used by [place] Assessments - Encounter Diagnoses This section includes the primary and secondary diagnoses documented for the Encounter. Date/Time Primary/Secondary Diagnosis Diagnosis Name Provider Source Sep 18, 2023 08:02 AM PRIMARY Encounter for examination and observation for oth reasons ELIU NIX [facility] Plan of Treatment: Future Appointments (+ 6 [...] 2023 10:30 AM AMBULATORY - MEDICINE [facility] Sep 26, 2023 08:27 AM AMBULATORY - NONE [place] [facility] [place] [facility] Sep 26, 2023 12:00 PM AMBULATORY [place] [facility] [place] [facility] Oct 16, 2023 09:00 AM AM[place]ULATORY [place] [facility] [place] [facility] Nov 06, 2023 09:30 AM AM[place]ATORY [place] [facility] [place] [facility] December 21, 2023 09:00 AM AMBULATORY [place]IATRY [place] [facility] [place] [facility] December 25, 2023 09:00 AM AMBULATORY - MEDICINE [facility] Feb 05, 2024 10:00 AM AM[place] [facility] [place] [facility] Feb 13, 2024 11:30 AM AMBULATORY - MEDICINE [facility] Feb 15, 2024 09:00 AM AMB[place]ORY [place] [facility] [place] [facility] Feb 15, 2024 09:45 AM AMBULATORY - NONE [place] [facility] [place] [facility] Mar 07, 2024 09:00 AM AMBULATORY [place]ATRY [place] [facility] [place] [facility] Mar 08, 2024 08:30 AM AMBULATORY - NONE [place] [facility] [place] [facility] Mar 11, 2024 09:00 AM AMBULATORY - MEDICINE [facility] Active, Pending, and [...] BLOOD FIT X1 SCREEN(IN-HOUSE) [facility] Sep 26, 2023 09:55 AM Consult Order [facility] GENERAL Cons Easement [place] Lab Results: +/- 30 days of the [...] Range Comment Sep 05, 2023 10:56 AM [facility] FERRITIN Specimen Type: SERUM No comment entered. Ordering Provider: YOAN CHILDS Report Released Date/Time: Sep 05, 2023 10:30 AM Reporting Lab[facility] [address] [facility] [address] Performing Lab: [facility] [address] [facility] [address] FERRITIN 25 ng/mL 20-300 Sep 05, 2023 10:56 AM [facility] IRON & TIBC PANEL Specimen Type: SERUM No comment entered. Ordering Provider: YOAN CHILDS Report Released Date/Time: Sep 05, 2023 10:30 AM Reporting Lab: [facility] [address] [facility] [address] Performing Lab: [facility] [address] TIBC 401 ug/dL 204-475 IRON 53 ug/dL 40-160 Transferrin Saturation 13.2 L 20.0-50.0 Sep 05, 2023 10:56 AM [facility] CBC AND DIFF (AUTO) Specimen Type: BLOOD No comment entered. Ordering Provider: YOAN CHILDS Report Released Date/Time: Sep 05, 2023 10:30 AM Reporting Lab: [facility] [address] [facility] [address] Performing Lab: [facility] [address] [facility] [address] WBC 5.66 10*3/uL 4.50-11.00 RBC 4.25 10*6/uL 4.23-5.66 HGB 12.1 g/dL L 12.8-17 HCT 35.5 L 39.2-50.4 MCV 83.5 fL 82-99 MCHC 34.1 g/dL 30.8-35.1 PLT 295 10*3/uL 140-360 RDW-CV 12.0 12.0-16.0 [place], Abs 0.59 10*3/uL 0.30-1.10 MCH 28.5 pg 26.2-32.6 Neut % 56.3 43.7-75.8 Lymph % 27.2 14.0-42.3 [place] % 10.4 5.1-13.7 Eos % 4.1 0.4-6.8 Baso % 1.6 0.1-2.0 Neut, Abs 3.19 10*3/uL 2.20-7.60 Lymph, Abs 1.54 10*3/uL 1.00-3.20 Eos, Abs 0.23 10*3/uL 0.03-0.44 Baso, Abs 0.09 10*3/uL 0.01-0.13 Immature Gran % 0.4 0.0-0.7 Immature Gran, Abs 0.02 10*3/uL 0.00-0.06 Sep 01, 2023 10:29 AM [facility] LIPID PANEL FASTING Specimen Type: SERUM No comment entered. Ordering Provider: YULY AUSTIN Report Released Date/Time: Aug 17, 2023 08:25 AM Reporting Lab: [facility] [address] [facility] [address] Performing Lab: [address] [address] CHOLESTEROL 133 mg/dL TRIGLYCERIDE 73 mg/dL 0-150 LDL calculated 75 mg/dL 0-129 CHOL/HDL 3.1 HDL CHOLESTEROL 43 mg/dL 40-60 Sep 01, 2023 10:29 AM [facility] HEMOGLOBIN A1C PANEL Specimen Type: BLOOD Comment: [...] Aug 17, 2023 08:25 AM Reporting Lab: [address] [address] Performing Lab: [address] [address] HEMOGLOBIN A1C 6.7 H 4.0-5.6 Sep 01, 2023 10:29 AM [facility] BASIC METABOLIC PANEL (fasting) Specimen Type: SERUM No comment entered. Ordering Provider: YULY AUSTIN Report Released Date/Time: Aug 17, 2023 08:25 AM Reporting Lab: [address] [address] Performing Lab: [address] [address] UREA NITROGEN 10 mg/dL 7-25 GLUCOSE 135 mg/dL H 65-100 SODIUM 138 mmol/L 135-145 POTASSIUM 3.9 mmol/L 3.5-5.0 CHLORIDE 101 mmol/L 100-110 CO2 27 meq/L 20-30 CREATININE, Serum 0.73 mg/dL 0.50-1.40 eGFR(CKD-EPI 2020) 90 mL/min >60 Sep 01, 2023 10:29 AM [facility] LIVER FUNCTION Specimen Type: SERUM No comment entered. Ordering Provider: YULY AUSTIN Report Released Date/Time: Aug 17, 2023 08:25 AM Reporting Lab: [facility] [address] [facility] [address] Performing Lab: [address] [address] PROTEIN,TOTAL 6.9 g/dL 6.0-8.3 ALBUMIN 3.8 g/dL 3.5-5.0 ALKALINE PHOSPHATASE 91 U/L 40-150 AST 14 U/L 5-34 ALT 13 U/L BILIRUBIN, TOTAL 0.5 mg/dL 0.2-1.2 Sep 01, 2023 10:29 AM [facility] MICROALBUMIN CREATININE RATIO PANEL Specimen Type: URINE No comment entered. Ordering Provider: YULY AUSTIN Report Released Date/Time: Aug 17, 2023 08:25 AM Reporting Lab: [address] [address] Performing Lab: [address] [address] MICROALBUMIN/C REATININE RATIO 9.0 mg/g 0-29.9 MICROALBUMIN,Q UANTITATIVE 1.0 mg/dL RR UNAVAIL CREATININE URINE 110.79 mg/dL Sep 01, 2023 10:29 AM [facility] CBC AND DIFF (AUTO) Specimen Type: BLOOD No comment entered. Ordering Provider: YULY AUSTIN Report Released Date/Time: Aug 17, 2023 08:25 AM Reporting Lab: [address] [address] Performing Lab: [address] [address] WBC 8.35 10*3/uL 4.50-11.00 RBC 4.17 10*6/uL L 4.23-5.66 HGB 12.0 g/dL L 12.8-17 HCT 35.3 L 39.2-50.4 MCV 84.7 fL 82-99 MCHC 34.0 g/dL 30.8-35.1 PLT 305 10*3/uL 140-360 RDW-CV 12.3 12.0-16.0 [place], Abs 0.71 10*3/uL 0.30-1.10 MCH 28.8 pg 26.2-32.6 Neut % 66.3 43.7-75.8 Lymph % 20.8 14.0-42.3 [place] % 8.5 5.1-13.7 Eos % 3.0 0.4-6.8 Baso % 1.0 0.1-2.0 Neut, Abs 5.54 10*3/uL 2.20-7.60 Lymph, Abs 1.74 10*3/uL 1.00-3.20 Eos, Abs 0.25 10*3/uL 0.03-0.44 Baso, Abs 0.08 10*3/uL 0.01-0.13 Immature Gran % 0.4 0.0-0.7 Immature Gran, Abs 0.03 10*3/uL 0.00-0.06 Advance Directives: All historical and current Section [...] Source Apr 10, 2023 ADVANCE DIRECTIVE [place] [facility] Apr 19, 2007 ADVANCE DIRECTIVE VICTORIA JOHNSON [...] SPINE LUMBOSACRAL MIN 2 VIEWS: GUSTAVO ARAMBULA CATHERINE -1940 M Exm Date: SEP 26, 2023@08:32 Req Phys: TRACY CARRILLO Pat Loc: CWM/SO/PACT 7 (Req'g Loc) Img Loc: [facility] [place]/[facility] 1 Service: Unknown (Case [id number] COMPLETE) SPINE LUMBOSACRAL MIN 2 VIEWS (RAD Detailed) CPT:81725 Reason for Study: lumbar pain Clinical History: 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, fellow, TECHNICAL SERVICES COORDINATOR or attending: Tracy Carrillo NP [place] Pager: [phone] Backup pager: History: chronic lumbar spine pain Report Status: Verified Date Reported: SEP 26, 2023 Date Verified: SEP 26, 2023 Fire Protection Inspector E-Sig:/ES/CHERYLE GUZMAN JR Report: Study: AP, lateral [...] Primary Interpreting Staff: CHERYLE GUZMAN JR, Radiologist (Fire Protection Inspector) /CHERYLE VALENCIA JR [place] [facility] Sep 26, 2023 08:32 AM HIP 2-3 VIEWS (RIGHT) WITH OR WITHOUT PELVIS: GUSTAVO ARAMBULA 1940 M [facility] Date: SEP 26, 2023@08:32 Req Phys: TRACY CARRILLO Loc: CWM/SO/PACT 7 (Req'g Loc) Img Loc: [facility] [place] 1 Service: Unknown (Case [id number] COMPLETE) HIP 2-3 VIEWS (RIGHT) WITH OR WIT(RAD Detailed) CPT:79451 CPT Modifiers : RT RIGHT SIDE Reason for Study: hip pain Clinical History: 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, fellow, TECHNICAL SERVICES COORDINATOR or attending: Tracy Carrillo NP [place] Pager: [phone] Backup pager: History: chronic right hip pain, hx CAROL ANN Report Status: Verified Date Reported: SEP 26, 2023 Date Verified: SEP 26, 2023 Fire Protection Inspector E-Sig:/ES/CHERYLE GUZMAN JR Report: Study: AP view [...] Primary Interpreting Staff: CHERYLE GUZMAN JR, Radiologist (Fire Protection Inspector) /CHERYLE VALENCIA [facility] Sep 05, 2023 11:05 AM HIP 2-3 VIEWS(LEFT) WITH OR WITHOUT PELVIS: GUSTAVO ARAMBULA -1940 M Ex Date: SEP 05, 2023@11:05 Req Phys: DANIELE CHILDS Pat Loc: CWM/NO/PACT/FIRM TECHNICAL SERVICES COORDINATOR (Req'g Loc Img Loc: [facility] [place] 1 Service: Unknown (Case 18 COMPLETE) HIP 2-3 VIEWS(LEFT) WITH OR WITHO(RAD Detailed) CPT:60495 Proc Modifiers : LEFT CPT Modifiers : LT LEFT SIDE Reason for Study: chronic left hip pain Clinical History: Report Status: Verified Date Reported: SEP 05, 2023 Date Verified: SEP 05, 2023 Fire Protection Inspector E-Sig:/ES/CHERYLE GUZMAN JR Report: Study: AP view [...] Primary Interpreting Staff: CHERYLE GUZMAN JR, Radiologist (Fire Protection Inspector) /CHERYLE VALENCIA JR [facility] Encounter Notes: All associated encounter notes This section contains the clinical notes associated to the Encounter. Date/Time Encounter Note(s) Provider Source Sep 18, 2023 07:58 AM PHARMACY MEDICATIO N MGT NOTE: LOCAL TITLE: PHARMACY ANTICOAGULATION NOTE STANDARD TITLE: PHARMACY MEDICATION MGT NOTE DATE OF NOTE: SEP 18, 2023@07:58 ENTRY DATE: SEP 18, 2023@07:58:08 AUTHOR: EMILY NIX COSIGNER: URGENCY: STATUS: COMPLETED ANTICOAGULATION DOAC MONITORING NOTE SUBJECTIVE: Patient identified through the DOAC population Management Tool based on the following criteria: [ ] Dosing Issue [ ] Critical Drug Interaction [ ] Cancer Treatment [ ] Active NSAID [ ] Labs Overdue [ X ] Prosthetic Valve Replacement [ ] Notable Lab Value [ ] Overdue for Refill [ ] Other: Comments: Pt flagged for review of hx prosthetic valve replacement in setting of DOAC use --------- OBJECTIVE: Indication for anticoagulation: [ ] Atrial [...] 14 13 91 3.8 0.5 6.9 HEIGHT: 63 in [160.0 cm] (03/06/2023 11:10) WEIGHT: 143 lb [64.86 kg] (09/05/2023 10:02) BMI: BMI: 25.4 CREATININE-EGFR 09/01/23 10:29 0.73 02/23/23 08:48 0.73 12/14/22 07:54 0.81 CRCL IBW: CrCl(est): 61.7 mL/min (Creat:0.73 09/01/23) CRCL ACT: 51.46 mL/min CRCL ADJ: 61.7 mL/min (09/01/23) --------- ASSESSMENT: Action required? 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 Presence of this valve does not preclude use of DOAC therapy. --------- PLAN: [ X ] No action required, dismiss flag [ ] Will intervene: [ ] Patient education via phone/letter [ ] Schedule phone/[id number] follow up [ ] Lab ordered [ ] Discontinue interacting medication [ ] Discontinue DOAC [ ] Change to alternative DOAC [ ] Change DOAC dose [ ] Notify PCP [ ] Consult cardiology/hematology [ ] Other: Time spent: 15 mins (review of chart to find valve type) /reginaldo/ Emily Nix, PharmD, BCPS Clinical Industrial Health Engineer Signed: 09/18/2023 08:02 EMILY NIX [facility]
--- OUTSIDE RECORDS SUMMARY | 2024-08-16 09:31 | XMS_ITS | Encounter Summary ---
Author Name [facility] [place] [facility] [place] Organization [facility] [place] [facility] [place] Address [address] [place] [address] Care Team Providers Care Communications Administrator Name Role Phone NELL CARRILLO Primary Care [...] PHI MEDEX BRONZ E December 19, 2013 [id number] [phone] GUSTAVO ARAMBULA SR PATIENT [employer] MEDICARE SUPPLEMEN PHI MEDIC ARE SUPPL EMENT Jul 21, 2007 NONE [id number] Edgar ARAMBULA PATIENT [place] SUPPLEMEN PHI MEDEX BRONZ E December 19, 2013 [id number] [phone] GUSTAVO ARAMBULA SR PATIENT [place] MEDICARE SUPPLEMEN PHI MEDEX BRONZ E December 19, 2013 [id number] Edgar ARAMBULA PATIENT MEDICARE (WNR) MEDICARE () PART A Oct 19, 2004 PART A [id number] Edgar ARAMBULA PATIENT MEDICARE (WNR) MEDICARE (M) PART B Oct 19, 2004 PART B [id number] Edgar ARAMBULAN PATIENT MEDICARE (WNR) MEDICARE () PART A Oct 19, 2004 PART A [id number] [phone] Edgar ARAMBULAN PATIENT MEDICARE (WNR) MEDICARE () PART B Oct 19, 2004 PART B [id number] Edgar ARAMBULAN PATIENT MEDICARE (WNR) MEDICARE () PART A Oct 19, 2004 PART A [id number] Edgar ARAMBULAN PATIENT MEDICARE (WNR) MEDICARE () PART B Oct 19, 2004 PART B [id number] [id number] Edgar ARAMBULAN PATIENT MEDICARE (WNR) MEDICARE () PART A Oct 19, 2004 PART A [id number] [phone] Edgar ARAMBULA PATIENT MEDICARE (WNR) MEDICARE () PART B Oct 19, 2004 PART B [id number] [id number] Edgar ARAMBULAN PATIENT MEDICARE (WNR) MEDICARE () PART A Oct 19, 2004 PART A [id number] Edgar ARAMBULAN PATIENT MEDICARE (WNR) MEDICARE () PART B Oct 19, 2004 PART B [id number] [phone] Edgar ARAMBULA PATIENT Selected Encounter This section includes the information on record at [place] for the Encounter. Date/Time Encounter Type Encounter Description Reason Pro vider Source Sep 05, 2023 06:58 PM Outpatient Encounter TELEPHONE PRIMARY CARE IHE Encounter Template Text not used by [place] Plan of Treatment: Future Appointments (+ 6 [...] 20 appointments. The data comes from all [place] treatment [facility]. Appointment Date/Time Appointment Type Appointme nt Facility Name Sep 11, 2023 08:45 AM AMBULATORY - MEDICINE [place] [facility] [place] [facility] Sep 12, 2023 10:00 AM AMBULATORY - PSYCHIATRY [place] [facility] [place] [facility] Sep 25, 2023 10:30 AM AMBULATORY - MEDICINE [facility] Sep 26, 2023 08:27 AM AMBULATORY - NONE [place] [facility] [place] [facility] Sep 26, 2023 12:00 PM AMBULATORY - MEDICINE [place] [facility] [place] [facility] Oct 16, 2023 09:00 AM AMBULATORY - MEDICINE [place] [facility] [place] [facility] Nov 06, 2023 09:30 AM AMBULATORY - MEDICINE [place] [facility] [place] [facility] December 21, 2023 09:00 AM AMBULATORY - PSYCHIATRY [place] [facility] [place] [facility] December 25, 2023 09:00 AM AMBULATORY - MEDICINE [facility] Feb 05, 2024 10:00 AM AMBULATORY - MEDICINE [place] [facility] [facility] Feb 13, 2024 11:30 AM AMBULATORY - MEDICINE [facility] Feb 15, 2024 09:00 AM AMBULATORY - PSYCHIATRY [place] [facility] [place] [facility] Feb 15, 2024 09:45 AM AMBULATORY - NONE [place] [facility] [place] [facility] Active, Pending, and Scheduled Orders This section includes a listing of several types of active, pending, and scheduled orders, including clinic medications orders, diagnostic test orders, procedure orders and consult orders; where the start date of the order is 45 days before the date of the Encounter or 45 days after the date of theEncounter. The data comes from all [place] treatment [facility]. Test Date/Time Test Type Test Details Facility Name Sep 05, 2023 12:00 AM Laboratory - Chemi stry Order OCCULT BLOOD FIT X1 SCREEN(IN-HOUSE) STOOL FECES SP [place] [facility] [place] [facility] Sep 26, 2023 09:55 AM Consult Order [facility] Cons Sales Operations Assistant's Choice MOUNDS Lab Results: +/- 30 days of the encounter This section includes the Chemistry and Hematology Lab Results on record with [place] for the patient. Radiology Reports and Pathology Reports are provided separately, in subsequent sections. Lab Results This section contains the Chemistry/Hematology Results that were resulted 30 days before or 30 daysafter the date of the Encounter. Date/Time Source Result Type Result - Unit Interpretation Reference Range Comment Sep 05, 2023 10:56 AM [facility] FERRITIN Specimen Type: SERUM No comment entered. Ordering Provider: YOAN CHILDS Report Released Date/Time: Sep 05, 2023 10:30 AM Reporting Lab: [facility] [address] Performing Lab: [facility] [address] [address] FERRITIN 25 ng/mL 20-300 Sep 05, 2023 10:56 AM [facility] IRON & TIBC PANEL Specimen Type: SERUM No comment entered. Ordering Provider: YOAN CHILDS Report Released Date/Time: Sep 05, 2023 10:30 AM Reporting Lab: [facility] [address] [address] Performing Lab: [facility] [address] [address] TIBC 401 ug/dL 204-475 IRON 53 ug/dL 40-160 Transferrin Saturation 13.2 L 20.0-50.0 Sep 05, 2023 10:56 AM [facility] CBC AND DIFF (AUTO) Specimen Type: BLOOD No comment entered. Ordering Provider: YOAN CHILDS Report Released Date/Time: Sep 05, 2023 10:30 AM Reporting Lab: [facility] [address] [address] Performing Lab: [facility] [address] [address] WBC 5.66 10*3/uL 4.50-11.00 RBC 4.25 10*6/uL 4.23-5.66 HGB 12.1 g/dL L 12.8-17 HCT 35.5 L 39.2-50.4 MCV 83.5 fL 82-99 MCHC 34.1 g/dL 30.8-35.1 PLT 295 10*3/uL 140-360 RDW-CV 12.0 12.0-16.0 [place], Abs 0.59 10*3/uL 0.30-1.10 MCH 28.5 pg 26.2-32.6 Neut % 56.3 43.7-75.8 Lymph % 27.2 14.0-42.3 [place] % 10.4 5.1-13.7 Eos % 4.1 0.4-6.8 Baso % 1.6 0.1-2.0 Neut, Abs 3.19 10*3/uL 2.20-7.60 Lymph, Abs 1.54 10*3/uL 1.00-3.20 Eos, Abs 0.23 10*3/uL 0.03-0.44 Baso, Abs 0.09 10*3/uL 0.01-0.13 Immature Gran % 0.4 0.0-0.7 Immature Gran, Abs 0.02 10*3/uL 0.00-0.06 Sep 01, 2023 10:29 AM [facility] HEMOGLOBIN A1C PANEL Specimen Type: BLOOD [...] Aug 17, 2023 08:25 AM Reporting Lab: [facility] [address] [facility] [address] Performing Lab: [address] [address] HEMOGLOBIN A1C 6.7 H 4.0-5.6 Sep 01, 2023 10:29 AM [facility] LIPID PANEL FASTING Specimen Type: SERUM No comment entered. Ordering Provider: YULY AUSTIN Report Released Date/Time: Aug 17, 2023 08:25 AM Reporting Lab: [facility] [address] [facility] [address] Performing Lab: [facility] [address] [facility] [address] CHOLESTEROL 133 mg/dL TRIGLYCERIDE 73 mg/dL 0-150 LDL calculated 75 mg/dL 0-129 CHOL/HDL 3.1 HDL CHOLESTEROL 43 mg/dL 40-60 Sep 01, 2023 10:29 AM [facility] BASIC METABOLIC PANEL (fasting) Specimen Type: SERUM No comment entered. Ordering Provider: YULY AUSTIN Report Released Date/Time: Aug 17, 2023 08:25 AM Reporting Lab: [facility] [address] [facility] [address] Performing Lab: [facility] [address] [facility] [address] UREA NITROGEN 10 mg/dL 7-25 GLUCOSE 135 mg/dL H 65-100 SODIUM 138 mmol/L 135-145 POTASSIUM 3.9 mmol/L 3.5-5.0 CHLORIDE 101 mmol/L 100-110 CO2 27 meq/L 20-30 CREATININE, Serum 0.73 mg/dL 0.50-1.40 eGFR(CKD-EPI 2020) 90 mL/min >60 Sep 01, 2023 10:29 AM [facility] LIVER FUNCTION Specimen Type: SERUM No comment entered. Ordering Provider: YULY AUSTIN Report Released Date/Time: Aug 17, 2023 08:25 AM Reporting Lab: [facility] [address] [facility] [address] Performing Lab: [address] [address] PROTEIN,TOTAL 6.9 g/dL 6.0-8.3 ALBUMIN 3.8 g/dL 3.5-5.0 ALKALINE PHOSPHATASE 91 U/L 40-150 AST 14 U/L 5-34 ALT 13 U/L BILIRUBIN, TOTAL 0.5 mg/dL 0.2-1.2 Sep 01, 2023 10:29 AM [facility] MICROALBUMIN CREATININE RATIO PANEL Specimen Type: URINE No comment entered. Ordering Provider: YULY AUSTIN Report Released Date/Time: Aug 17, 2023 08:25 AM Reporting Lab: [facility] [address] [facility] [address] Performing Lab: [facility] [address] [facility] [address] MICROALBUMIN/C REATININE RATIO 9.0 mg/g 0-29.9 MICROALBUMIN,Q UANTITATIVE 1.0 mg/dL RR UNAVAIL CREATININE URINE 110.79 mg/dL Sep 01, 2023 10:29 AM [facility] CBC AND DIFF (AUTO) Specimen Type: BLOOD No comment entered. Ordering Provider: YULY AUSTIN Report Released Date/Time: Aug 17, 2023 08:25 AM Reporting Lab: [facility] [address] [facility] [address] Performing Lab: [facility] [address] [facility] [address] WBC 8.35 10*3/uL 4.50-11.00 RBC 4.17 10*6/uL L 4.23-5.66 HGB 12.0 g/dL L 12.8-17 HCT 35.3 L 39.2-50.4 MCV 84.7 fL 82-99 MCHC 34.0 g/dL 30.8-35.1 PLT 305 10*3/uL 140-360 RDW-CV 12.3 12.0-16.0 [place], Abs 0.71 10*3/uL 0.30-1.10 MCH 28.8 pg 26.2-32.6 Neut % 66.3 43.7-75.8 Lymph % 20.8 14.0-42.3 [place] % 8.5 5.1-13.7 Eos % 3.0 0.4-6.8 [...] Height Weight Body Mass Index Source Sep 05, 2023 10:22 AM 130/74 mm[Hg] [place] [facility] [place] [facility] Sep 05, 2023 10:02 AM 98.1 F 74 /min 156/80 mm[Hg] 16 /min 99 % 7 143 lb 25 [facility] [place] [facility] Social History: Smoking Status (Most current) and Tobacco Use (All prior to encounter date) This section includes the most current, and the historical, smoking and tobacco- related health factors from the [place] facility where the Encounter took place. Current Smoking Status This section includes the most current smoking, or tobacco-related health factor, from the [place] facility where the Encounter took place. Date/Time Current Smoking Status Comment [facility] Dec 13, 2022 03:00 PM VA-TOBACCO USER EVERY DAY [place] [facility] [place] [facility] Tobacco Use History This section includes a history of the smoking, or tobacco-related health factors, that were collected on or before the date of the Encounter. The data comes from the [place] facility where the Encounter took place. 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 [facility] [place] [facility] Dec 13, 2022 03:00 PM VA-TOBACCO USE MED NO [facility] [place] [facility] Dec 13, 2022 03:00 PM VA-TOBACCO USER EVERY DAY [facility] [place] [facility] Nov 17, 2021 10:00 AM VA-TOBACCO USE 30 YEARS OR MORE [facility] Nov 17, 2021 10:00 AM VA-TOBACCO USE ADVICE [facility] Nov 17, 2021 10:00 AM VA-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 USE 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 [facility] Nov 17, 2021 10:00 AM VA-TOBACCO USE MED NO [facility] Nov 17, 2021 10:00 AM VA-TOBACCO USE WI 30 MIN OF WAKEUP [facility] Nov 17, 2021 10:00 AM VA-TOBACCO USER EVERY DAY [facility] Oct 14, 2013 12:55 PM V1-PT NOT INTERESTED IN QUIT TOBACCO USE [facility] May 07, 2013 05:04 PM CURRENT SMOKER trying to stop [facility] May 07, 2013 05:04 PM V1-PT DECLINES REF TO TOBACCO CESS PRGM [facility] May 07, 2013 05:04 PM V1-PT DECLINES TOBACCO CESSATION MEDS [facility] May 07, 2013 05:04 PM V1-PT READY TO QUIT TOBACCO USE [facility] Dec 03, 2012 08:23 AM V1-PT DECLINES REF TO TOBACCO CESS PRGM [facility] Dec 03, 2012 08:23 AM V1-PT DECLINES TOBACCO CESSATION MEDS [facility] Dec 03, 2012 08:23 AM V1-PT THINKING ABOUT QUIT TOBACCO USE [facility] Jun 05, 2012 08:45 AM CURRENT SMOKER 1/2ppd [facility] Jun 05, 2012 08:45 AM V1-PT DECLINES REF TO TOBACCO CESS PRGM [facility] Jun 05, 2012 08:45 AM V1-PT THINKING ABOUT QUIT TOBACCO USE [facility] Jun 05, 2012 08:45 AM V1-TOBACCO CESS MEDS NOT PRESCRIBED Vet wants to talk to his provider-He is nervous about taking meds to quit- but he is interested in quitting [facility] [place] [facility] Nov 25, 2011 09:14 AM V1-PT DECLINES REF TO TOBACCO CESS PRGM [facility] [place] [facility] Nov 25, 2011 09:14 AM V1-PT DECLINES TOBACCO CESSATION MEDS [facility] [place] [facility] Nov 25, 2011 09:14 AM V1-PT THINKING ABOUT QUIT TOBACCO USE [facility] [place] [facility] May 06, 2011 01:02 PM CURRENT SMOKER [facility] [place] [facility] May 06, 2011 01:02 PM V1-PT DECLINES TOBACCO CESSATION MEDS [facility] [place] [facility] May 06, 2011 01:02 PM V1-PT NOT INTERESTED IN QUIT TOBACCO USE [facility] Sep 24, 2010 08:51 AM V1-PT DECLINES TOBACCO CESSATION MEDS [facility] Sep 24, 2010 08:51 AM V1-PT THINKING ABOUT QUIT TOBACCO USE [facility] [place] [facility] Mar 22, 2010 07:58 AM CURRENT SMOKER 1/2 ppd [facility] [place] [facility] Feb 25, 2009 12:05 PM QUIT TOBACCO USE IN PAST YEAR [facility] [place] [facility] Aug 26, 2008 09:28 AM CURRENT SMOKER 1/2 ppd [facility] Aug 26, 2008 09:28 AM V1-PT DECLINES REF TO TOBACCO CESS PRGM [facility] [place] [facility] Aug 26, 2008 09:28 AM V1-PT READY TO QUIT TOBACCO USE [facility] [place] [facility] Dec 19, 2007 10:08 AM V1-PT DECLINES REF TO TOBACCO CESS PRGM [facility] [place] [facility] Dec 19, 2007 10:08 AM V1-PT DECLINES TOBACCO CESSATION MEDS [facility] [place] [facility] Dec 19, 2007 10:08 AM V1-PT THINKING ABOUT QUIT TOBACCO USE [facility] [place] [facility] Sep 11, 2007 11:10 AM CURRENT SMOKER [facility] [place] [facility] Sep 11, 2007 11:10 AM V1-PT DECLINES REF TO TOBACCO CESS PRGM [facility] Sep 11, 2007 11:10 AM V1-PT DECLINES TOBACCO CESSATION MEDS [facility] Sep 11, 2007 11:10 AM V1-PT THINKING ABOUT QUIT TOBACCO USE [facility] Feb 13, 2007 01:46 PM V1-PT DECLINES REF TO TOBACCO CESS PRGM [facility] Feb 13, 2007 01:46 PM V1-PT DECLINES TOBACCO CESSATION MEDS [facility] Feb 13, 2007 01:46 PM V1-PT THINKING ABOUT QUIT TOBACCO USE [facility] Oct 02, 2006 08:28 AM QUIT TOBACCO USE IN PAST YEAR 3 months ago [facility] Aug 19, 2005 08:33 AM QUIT TOBACCO USE IN PAST YEAR nonsmoker [facility] Sep 21, 2004 09:54 AM CURRENT SMOKER [facility] Sep 07, 2004 08:07 AM CURRENT SMOKER [facility] Sep 15, 2003 11:21 AM CURRENT SMOKER smokes one pk day [facility] Jul 23, 2003 01:57 PM CURRENT SMOKER [facility] Advance Directives: All historical and current Section Date Range: From patient's date of to the date document was created. This section includes ALL of a patient's completed or amended [place] Advance and Rescinded Directives. The entries below indicate that a directive exists for the patient, but an actual copy is not included with this document. The data comes from all [place] facilities. Date Advance Directives Provider Source Apr 10, 2023 ADVANCE DIRECTIVE ESSIE STARK [facility] Apr 19, 2007 ADVANCE DIRECTIVE VICTORIA JOHNSON [facility] Radiology Reports: +/- 30 days [...] the Encounter. The data comes from all [place] treatment facilities. 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: Nell Carrillo NP [place] Pager: [phone] Backup pager: History: chronic lumbar spine pain Report Status: Verified Date Reported: SEP 26, 2023 Date Verified: SEP 26, 2023 Computer Systems Software Engineer E-Sig:/ES/CHERYLE GUZMAN JR Report: Study: AP, lateral [...] Primary Interpreting Staff: CHERYLE GUZMAN JR, Radiologist (Computer Systems Software Engineer) /CHERYLE VALENCIA JR [place] [facility] [place] [facility] Sep 26, 2023 08:32 AM HIP 2-3 VIEWS (RIGHT) WITH OR WITHOUT PELVIS: GUSTAVO ARAMBULA CATHERINE 1940 M Exm Date: SEP 26, 2023@08:32 Req Phys: NELL CARRILLO Pat Loc: CWM/SO/PACT 7 (Req'g Loc) Img Loc: [facility] 1 Service: Unknown (Case [id number] COMPLETE) HIP 2-3 VIEWS (RIGHT) WITH OR WIT(RAD Detailed) CPT:57232 CPT Modifiers : RT RIGHT SIDE Reason for Study: hip pain Clinical History: 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, 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, 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: Nell Carrillo NP [place] Pager: [phone] Backup pager: History: chronic right hip pain, hx CAROL ANN Report Status: Verified Date Reported: SEP 26, 2023 Date Verified: SEP 26, 2023 Computer Systems Software Engineer E-Sig:/ES/CHERYLE GUZMAN JR Report: Study: AP view [...] Primary Interpreting Staff: CHERYLE GUZMAN JR, Radiologist (Computer Systems Software Engineer) /CHERYLE VALENCIA JR [place] CNT [facility] Sep 05, 2023 11:05 AM HIP 2-3 VIEWS(LEFT) WITH OR WITHOUT PELVIS: GUSTAVO ARAMBULA 1940 M Exm Date: SEP 05, 2023@11:05 Req Phys: DANIELE CHILDS Pat Loc: CWM/NO/PACT/FIRM CRAWLER CRANE OPERATOR (Req'g Loc Img Loc: [facility]/BUILD[facility] 1 Service: Unknown (Case 18 COMPLETE) HIP 2-3 VIEWS(LEFT) WITH OR WITHO(RAD Detailed) CPT:83901 Proc Modifiers : LEFT CPT Modifiers : LT LEFT SIDE Reason for Study: chronic left hip pain Clinical History: Report Status: Verified Date Reported: SEP 05, 2023 Date Verified: SEP 05, 2023 Computer Systems Software Engineer E-Sig:/ES/CHERYLE GUZMAN JR Report: Study: AP view [...] Primary Interpreting Staff: CHERYLE GUZMAN JR, Radiologist (Computer Systems Software Engineer) /CHERYLE VALENCIA JR [facility] Encounter Notes: All associated encounter notes This section contains the clinical notes associated to the Encounter. Date/Time Encounter Note(s) Provider Source Sep 05, 2023 06:58 PM LETTERS: LOCAL TITLE: PATIENT LETTER (T) STANDARD TITLE: LETTERS DATE OF NOTE: SEP 05, 2023@18:58 ENTRY DATE: SEP 05, 2023@18:58:38 AUTHOR: DANIELE CHILDS COSIGNER: URGENCY: STATUS: COMPLETED [facility] Toll Free Number Primary Care Telephone Assistance can be reached at extension [phone] [facility] scheduling can be reached at extension [phone] [facility] scheduling can be reached at ext [phone] GUSTAVO ARAMBULA [address], [address] [place], The xray of your hip did not reveal any acute abnormalities. I will place a consult for you to see physical therapy, as we discussed. Your CBC demonstrates a stable anemia. Please return the FIT test at your earliest convenience. Your recent test results are as follows: LAB CHEMISTRY & HEMATOLOGY Collection DT Specimen Test Name Result Units Ref Range 09/05/2023 10:56 SERUM TIBC 401 ug/dL 204 - 475 IRON 53 ug/dL 40 - 160 FERRITIN 25 ng/mL 20 - 300 TranSat 13.2 L % 20.0 - 50.0 09/05/2023 10:56 BLOOD WBC 5.66 K/cmm 4.50 - 11.00 Neut % 56.3 % 43.7 - 75.8 Lymph % 27.2 % 14.0 - 42.3 [place] % 10.4 % 5.1 - 13.7 Eos % 4.1 % 0.4 - 6.8 Baso % 1.6 % 0.1 - 2.0 Immature Gran % 0.4 % 0.0 - 0.7 Neut, Abs 3.19 K/cmm 2.20 - 7.60 Lymph, Abs 1.54 K/cmm 1.00 - 3.20 [place], Abs 0.59 K/cmm 0.30 - 1.10 Eos, Abs 0.23 K/cmm 0.03 - 0.44 Baso, Abs 0.09 K/cmm 0.01 - 0.13 Immature Gran, Ab 0.02 K/cmm 0.00 - 0.06 RBC 4.25 M/cmm 4.23 - 5.66 HGB 12.1 L g/dL 12.8 - 17 HCT 35.5 L % 39.2 - 50.4 MCV 83.5 fl 82 - 99 MCH 28.5 pg 26.2 - 32.6 MCHC 34.1 g/dL 30.8 - 35.1 RDW-CV 12.0 % 12.0 - 16.0 PLT 295 K/cmm 140 - 360 IMAGING IMPRESSION Date Procedure CPT Status Case # 09/05/2023 HIP 2-3 VIEWS([place]) [place] [id number] Verified 18 WITHOUT PELVIS No acute abnormality. Please call if you have any questions or concerns. Upcoming Appointments: 09/12/2023 10:00 CWM/NO/MHC/COLINDRES 1 11/06/2023 09:30 CWM/NO/VVC/PAIN MD CLINIC Sincerely, Your Primary Care Team [facility] [address] [facility] [address] [place] [address] [place] [address] [phone] [facility] [address] [place] [address] [place] [address] [phone] [facility] [address] [facility],[address] [place] [id number] [place] [address] [phone] [facility]
--- OUTSIDE RECORDS SUMMARY | 2024-08-16 09:31 | XMS_ITS | Encounter Summary ---
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 Role Phone TRACY VILLANUEVA Primary Care [...] PHI MEDEX BRONZ E December 19, 2013 [id number] [phone] GUSTAVO ARAMBULA SR PATIENT [employer] MEDICARE SUPPLEMEN PHI MEDIC ARE SUPPL EMENT Jul 21, 2007 NONE [id number] Edgar ARAMBULA PATIENT [place] MED[place] SUPPLEMEN PHI MEDEX BRONZ E December 19, 2013 [id number] [phone] GUSTAVO ARAMBULA SR PATIENT [place] MEDICARE SUPPLEMEN PHI MEDEX BRONZ E December 19, 2013 [id number] Edgar ARAMBULA [place] PATIENT MEDICARE (WNR) MEDICARE () PART A Oct 19, 2004 PART A [id number] Edgar ARAMBULA [place] PATIENT MEDICARE (WNR) MEDICARE (M) PART B Oct 19, 2004 PART B [id number] Edgar ARAMBULA [place] PATIENT MEDICARE (WNR) MEDICARE (M) PART A Oct 19, 2004 PART A [id number] Edgar ARAMBULA [place] PATIENT MEDICARE (WNR) MEDICARE (M) PART B Oct 19, 2004 PART B [id number] [id number] Edgar ARAMBULA [place] PATIENT MEDICARE (WNR) MEDICARE () PART A Oct 19, 2004 PART A [id number] [phone] [id number] Edgar ARAMBULA [place] PATIENT MEDICARE (WNR) MEDICARE () PART B Oct 19, 2004 PART B [id number] [phone] [id number] Edgar ARAMBULA [place] PATIENT MEDICARE (WNR) MEDICARE () PART A Oct 19, 2004 PART A [id number] Edgar ARAMBULA [place] PATIENT MEDICARE (WNR) MEDICARE () PART A Oct 19, 2004 PART A [id number] Edgar ARAMBULA [place] PATIENT MEDICARE ([place]NR) MEDICARE () PART B Oct 19, 2004 PART B [id number] Edgar ARAMBULA [place] PATIENT MEDICARE (WNR) MEDICARE () PART B Oct 19, 2004 PART B [id number] Edgar ARAMBULAN PATIENT Selected Encounter This section includes the information on record at [place] for the Encounter. Date/Time Encounter Type Encounter Description Reason Provider Source Sep 12, 2023 10:00 AM OFFICE O/P EST MOD 30 [facility] - IND ICD-10-CM F33.9 Major depressive disorder, recurrent, unspecified JOSEY COLINDRES Encounter Template Text not used by [place] Assessments - Encounter Diagnoses This section includes the primary and secondary diagnoses documented for the Encounter. Date/Time Primary/Secondary Diagnosis Diagnosis Name Provider Source Sep 12, 2023 03:12 PM PRIMARY Major depressive disorder, recurrent, unspecified COLINDRESJOSEY [facility] [place] [facility] Sep 12, 2023 03:12 PM SECONDARY Tobacco use BERNADINEMANUELDEIRDREKONSTANTIN Lockhart [place] [facility] [place] [facility] Plan of Treatment: Future Appointments (+ 6 months) and Future Tests (+/- 45 days) The Plan of Treatment section includes future care activities for the patient from all [place] treatmentfacilities. This section includes future appointments and future orders which are active, pending or scheduled. Future Appointments This section includes appointments that were scheduled to occur 6 months from the date of the Encounter, up to a maximum of 20 appointments. The data comes from all [place] treatment facilities. Appointment Date/Time Appointment Type Appointme nt Facility Name Sep 25, 2023 10:30 AM AMBULATORY - MEDICINE [facility] Sep 26, 2023 08:27 AM AMBULATORY - NONE [facility] [place] [facility] Sep 26, 2023 12:00 PM AMBULATORY - MEDICINE [facility] [place] [facility] Oct 16, 2023 09:00 AM AMBULATORY - MEDICINE [facility] [place] [facility] Nov 06, 2023 09:30 AM AMBULATORY - MEDICINE [facility] [place] [facility] December 21, 2023 09:00 AM AMBULATORY - PSYCHIATRY [facility] [place] [facility] December 25, 2023 09:00 AM [facility]ATORY - MEDICINE [facility] Feb 05, 2024 10:00 AM AMBULATORY - MEDICINE [facility] [place] [facility] Feb 13, 2024 11:30 AM AM[facility]ULATORY - MEDICINE [facility] Feb 15, 2024 09:00 AM AMBULATORY - PSYCHIATRY [facility] [place] [facility] Feb 15, 2024 09:45 AM AMBULATORY - NONE [facility] [place] [facility] Mar 07, 2024 09:00 AM AMBULATORY - PSYCHIATRY [facility] [place] [facility] Mar 08, 2024 08:30 AM AMBULATORY - NONE [facility] [place] [facility] Mar 11, 2024 09:00 AM AMBULATORY - MEDICINE [facility] Active, Pending, and Scheduled Orders This section includes a listing of several types of active, pending, and scheduled orders, including clinic medications orders, diagnostic test orders, procedure orders and consult orders; where the start date of the order is 45 days before the date of the Encounter or 45 days after the date of theEncounter. The data comes from all [place] treatment facilities. Test Date/Time Test Type Test Details Facility Name Sep 05, 2023 12:00 AM Laboratory - Chemi stry Order OCCULT BLOOD FIT X1 SCREEN(IN-HOUSE) STOOL FECES SP [facility] Sep 26, 2023 09:55 AM Consult Order [facility] Supervisory Training Specialist's Choice [place] Lab Results: +/- 30 days of the encounter This section includes the Chemistry and Hematology Lab Results on record with [place] for the patient. Radiology Reports and Pathology Reports are provided separately, in subsequent sections. Lab Results This section contains the Chemistry/Hematology Results that were resulted 30 days before or 30 daysafter the date of the Encounter. Date/Time Source Result Type Result - Unit Interpretation Reference Range Comment Sep 05, 2023 10:56 AM [facility] FERRITIN Specimen Type: SERUM No comment entered. Ordering Provider: YOAN CHILDS Report Released Date/Time: Sep 05, 2023 10:30 AM Reporting Lab: [facility] [address] [address] Performing Lab: [facility] [address] FERRITIN 25 ng/mL 20-300 Sep 05, 2023 10:56 AM [facility] IRON & TIBC PANEL Specimen Type: SERUM No comment entered. Ordering Provider: YOAN CHILDS Report Released Date/Time: Sep 05, 2023 10:30 AM Reporting Lab: [facility] [address] [facility] [address] Performing Lab: [address] [address] TIBC 401 ug/dL 204-475 IRON 53 ug/dL 40-160 Transferrin Saturation 13.2 L 20.0-50.0 Sep 05, 2023 10:56 AM [facility] CBC AND DIFF (AUTO) Specimen Type: BLOOD No comment entered. Ordering Provider: YOAN CHILDS Report Released Date/Time: Sep 05, 2023 10:30 AM Reporting Lab: [address] [address] Performing Lab: [address] [address] WBC 5.66 10*3/uL 4.50-11.00 RBC 4.25 10*6/uL 4.23-5.66 HGB 12.1 g/dL L 12.8-17 HCT 35.5 L 39.2-50.4 MCV 83.5 fL 82-99 MCHC 34.1 g/dL 30.8-35.1 PLT 295 10*3/uL 140-360 RDW-CV 12.0 12.0-16.0 Ponder[place], Abs 0.59 10*3/uL 0.30-1.10 MCH 28.5 pg 26.2-32.6 Neut % 56.3 43.7-75.8 Lymph % 27.2 14.0-42.3 [place] % 10.4 5.1-13.7 Eos % 4.1 0.4-6.8 Baso % 1.6 0.1-2.0 Neut, Abs 3.19 10*3/uL 2.20-7.60 Lymph, Abs 1.54 10*3/uL 1.00-3.20 Eos, Abs 0.23 10*3/uL 0.03-0.44 Baso, Abs 0.09 10*3/uL 0.01-0.13 Immature Gran % 0.4 0.0-0.7 Immature Gran, Abs 0.02 10*3/uL 0.00-0.06 Sep 01, 2023 10:29 AM [facility] LIPID PANEL FASTING Specimen Type: SERUM No comment entered. Ordering Provider: YULY AUSTIN Report Released Date/Time: Aug 17, 2023 08:25 AM Reporting Lab: [address] [place] [address] Performing Lab: [facility] [address] [facility] [address] CHOLESTEROL 133 mg/dL TRIGLYCERIDE 73 mg/dL 0-150 LDL calculated 75 mg/dL 0-129 CHOL/HDL 3.1 HDL CHOLESTEROL 43 mg/dL 40-60 Sep 01, 2023 10:29 AM [facility] BASIC METABOLIC PANEL (fasting) Specimen Type: SERUM No comment entered. Ordering Provider: YULY AUSTIN Report Released Date/Time: Aug 17, 2023 08:25 AM Reporting Lab: [facility] [address] [facility] [address] Performing Lab: [address] [address] UREA NITROGEN 10 mg/dL 7-25 GLUCOSE 135 mg/dL H 65-100 SODIUM 138 mmol/L 135-145 POTASSIUM 3.9 mmol/L 3.5-5.0 CHLORIDE 101 mmol/L 100-110 CO2 27 meq/L 20-30 CREATININE, Serum 0.73 mg/dL 0.50-1.40 eGFR(CKD-EPI 2020) 90 mL/min >60 Sep 01, 2023 10:29 AM [facility] HEMOGLOBIN A1C PANEL Specimen Type: BLOOD [...] Aug 17, 2023 08:25 AM Reporting Lab: [facility] [address] [facility] [address] Performing Lab: [address] [address] HEMOGLOBIN A1C 6.7 H 4.0-5.6 Sep 01, 2023 10:29 AM [facility] LIVER FUNCTION Specimen Type: SERUM No comment entered. Ordering Provider: YULY AUSTIN Report Released Date/Time: Aug 17, 2023 08:25 AM Reporting Lab: [facility] [address] [address] Performing Lab: [facility] [address] [address] PROTEIN,TOTAL 6.9 g/dL 6.0-8.3 ALBUMIN 3.8 g/dL 3.5-5.0 ALKALINE PHOSPHATASE 91 U/L 40-150 AST 14 U/L 5-34 ALT 13 U/L BILIRUBIN, TOTAL 0.5 mg/dL 0.2-1.2 Sep 01, 2023 10:29 AM [facility] MICROALBUMIN CREATININE RATIO PANEL Specimen Type: URINE No comment entered. Ordering Provider: YULY AUSTIN Report Released Date/Time: Aug 17, 2023 08:25 AM Reporting Lab: [facility] [address] [facility] [address] Performing Lab: [facility] [address] [address] MICROALBUMIN/C REATININE RATIO 9.0 mg/g 0-29.9 MICROALBUMIN,Q UANTITATIVE 1.0 mg/dL RR UNAVAIL CREATININE URINE 110.79 mg/dL Sep 01, 2023 10:29 AM [facility] CBC AND DIFF (AUTO) Specimen Type: BLOOD No comment entered. Ordering Provider: YULY AUSTIN Report Released Date/Time: Aug 17, 2023 08:25 AM Reporting Lab: [facility] [address] [facility] [address] Performing Lab: [facility] [address] [address] WBC 8.35 10*3/uL 4.50-11.00 RBC 4.17 10*6/uL L 4.23-5.66 HGB 12.0 g/dL L 12.8-17 HCT 35.3 L 39.2-50.4 MCV 84.7 fL 82-99 MCHC 34.0 g/dL 30.8-35.1 PLT 305 10*3/uL 140-360 RDW-CV 12.3 12.0-16.0 [place], Abs 0.71 10*3/uL 0.30-1.10 MCH 28.8 pg 26.2-32.6 Neut % 66.3 43.7-75.8 Lymph % 20.8 14.0-42.3 [place] % 8.5 5.1-13.7 Eos % 3.0 0.4-6.8 [...] and tobacco- related health factors from the [place] facility where the Encounter took place. Current Smoking Status This section includes the most current smoking, or tobacco-related health factor, from the [place] facility where the Encounter took place. Date/Time Current Smoking Status Comment [facility] Dec 13, 2022 03:00 PM VA-TOBACCO USER EVERY DAY [facility] Tobacco Use History This section includes a history of the smoking, or tobacco-related health factors, that were collected on or before the date of the Encounter. The data comes from the [place] facility where the Encounter took place. 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 [place] [facility] [place] [facility] Dec 13, 2022 03:00 PM VA-TOBACCO USE MED NO [place] [facility] [place] [facility] Dec 13, 2022 03:00 PM VA-TOBACCO USER EVERY DAY [place] [facility] [place] [facility] Nov 17, 2021 10:00 AM VA-TOBACCO USE 30 YEARS OR MORE [place] [facility] [place] [facility] Nov 17, 2021 10:00 AM VA-TOBACCO USE ADVICE [facility] [place] Nov 17, 2021 10:00 AM VA-TOBACCO USE 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 [place] [facility] [place] [facility] Nov 17, 2021 10:00 AM VA-TOBACCO USE MED NO [place] [facility] [place] [facility] Nov 17, 2021 10:00 AM VA-TOBACCO USE WI 30 MIN OF WAKEUP [place] [facility] [place] [facility] Nov 17, 2021 10:00 AM VA-TOBACCO USER EVERY DAY [place] [facility] [place] [facility] Oct 14, 2013 12:55 PM V1-PT NOT INTERESTED IN QUIT TOBACCO USE [place] [facility] [place] [facility] May 07, 2013 05:04 PM CURRENT SMOKER trying to stop [place] [facility] [place] [facility] May 07, 2013 05:04 PM V1-PT DECLINES REF TO TOBACCO CESS PRGM [place] [facility] [place] [facility] May 07, 2013 05:04 PM V1-PT DECLINES TOBACCO CESSATION MEDS [facility] [place] [facility] May 07, 2013 05:04 PM V1-PT READY TO QUIT TOBACCO USE [place] [facility] [place] [facility] Dec 03, 2012 08:23 AM V1-PT DECLINES REF TO TOBACCO CESS PRGM [facility] [place] [facility] Dec 03, 2012 08:23 AM V1-PT DECLINES TOBACCO CESSATION MEDS [facility] [place] [facility] Dec 03, 2012 08:23 AM V1-PT THINKING ABOUT QUIT TOBACCO USE [facility] [place] [facility] Jun 05, 2012 08:45 AM CURRENT SMOKER 1/2ppd [facility] [place] [facility] Jun 05, 2012 08:45 AM V1-PT DECLINES REF TO TOBACCO CESS PRGM [place] [facility] [place] [facility] Jun 05, 2012 08:45 AM V1-PT THINKING ABOUT QUIT TOBACCO USE [facility] [place] [facility] Jun 05, 2012 08:45 AM V1-TOBACCO CESS MEDS NOT PRESCRIBED Vet wants to talk to his provider-He is nervous about taking meds to quit- but he is interested in quitting [facility] [place] [facility] Nov 25, 2011 09:14 AM V1-PT DECLINES REF TO TOBACCO CESS PRGM [facility] [place] [facility] Nov 25, 2011 09:14 AM V1-PT DECLINES TOBACCO CESSATION MEDS [facility] [place] [facility] Nov 25, 2011 09:14 AM V1-PT THINKING ABOUT QUIT TOBACCO USE [facility] [place] [facility] May 06, 2011 01:02 PM CURRENT SMOKER [facility] [place] [facility] May 06, 2011 01:02 PM V1-PT DECLINES TOBACCO CESSATION MEDS [facility] May 06, 2011 01:02 PM V1-PT NOT INTERESTED IN QUIT TOBACCO USE [facility] Sep 24, 2010 08:51 AM V1-PT DECLINES TOBACCO CESSATION MEDS [facility] [place] [facility] Sep 24, 2010 08:51 AM V1-PT THINKING ABOUT QUIT TOBACCO USE [facility] [place] [facility] Mar 22, 2010 07:58 AM CURRENT SMOKER 1/2 ppd [facility] [place] [facility] Feb 25, 2009 12:05 PM QUIT TOBACCO USE IN PAST YE[facility] [place] [facility] Aug 26, 2008 09:28 AM CURRENT SMOKER 1/2 ppd [facility] [place] [facility] Aug 26, 2008 09:28 AM V1-PT DECLINES REF TO TOBACCO CESS PRGM [place] [facility] [place] [facility] Aug 26, 2008 09:28 AM V1-PT READY TO QUIT TOBACCO USE [facility] [place] [facility] Dec 19, 2007 10:08 AM V1-PT DECLINES REF TO TOBACCO CESS PRGM [facility] [place] [facility] Dec 19, 2007 10:08 AM V1-PT DECLINES TOBACCO CESSATION MEDS [facility] Dec 19, 2007 10:08 AM V1-PT THINKING ABOUT QUIT TOBACCO USE [facility] [place] [facility] Sep 11, 2007 11:10 AM CURRENT SMOKER [facility] Sep 11, 2007 11:10 AM V1-PT DECLINES REF TO TOBACCO CESS PRGM [facility] Sep 11, 2007 11:10 AM V1-PT DECLINES TOBACCO CESSATION MEDS [facility] Sep 11, 2007 11:10 AM V1-PT THINKING ABOUT QUIT TOBACCO USE [facility] Feb 13, 2007 01:46 PM V1-PT DECLINES REF TO TOBACCO CESS PRGM [facility] Feb 13, 2007 01:46 PM V1-PT DECLINES TOBACCO CESSATION MEDS [facility] Feb 13, 2007 01:46 PM V1-PT THINKING ABOUT QUIT TOBACCO USE [facility] Oct 02, 2006 08:28 AM QUIT TOBACCO USE IN PAST YEAR 3 months ago [facility] Aug 19, 2005 08:33 AM QUIT TOBACCO USE IN PAST YEAR nonsmoker [facility] Sep 21, 2004 09:54 AM CURRENT SMOKER [facility] Sep 07, 2004 08:07 AM CURRENT SMOKER [facility] Sep 15, 2003 11:21 AM CURRENT SMOKER smokes one pk day [facility] Jul 23, 2003 01:57 PM CURRENT SMOKER [facility] Advance Directives: All historical and current Section Date Range: From patient's date of to the date document was created. This section includes ALL of a patient's completed or amended [place] Advance and Rescinded Directives. The entries below indicate that a directive exists for the patient, but an actual copy is not included with this document. The data comes from all [place] facilities. Date Advance Directives Provider Source Apr 10, 2023 ADVANCE DIRECTIVE ESSIE STARK [facility] Apr 19, 2007 ADVANCE DIRECTIVE VICTORIA JOHNSON [facility] Radiology Reports: +/- 30 days of [...] the Encounter. The data comes from all [place] treatment facilities. Date/Time Radiology Report Provider Source Sep 26, 2023 08:32 AM SPINE LUMBOSACRAL MIN 2 VIEWS: GUSTAVO ARAMBULA -1940 M Exm Date: SEP 26, 2023@08:32 Req Phys: TRACY VILLANUEVA Loc: CWM/SO/PACT 7 (Req'g Loc) Im[facility] 1 Service: Unknown (Case [id number] COMPLETE) SPINE LUMBOSACRAL MIN 2 VIEWS (RAD Detailed) CPT:08792 Reason for Study: lumbar pain Clinical History: 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, fellow, DRUG ROOM CLERK or attending: Tracy Villanueva NP [place] Pager: [phone] Backup pager: History: chronic lumbar spine pain Report Status: Verified Date Reported: SEP 26, 2023 Date Verified: SEP 26, 2023 Software Technical Lead E-Sig:/ES/CHERYLE GUZMAN JR Report: Study: AP, lateral [...] Primary Interpreting Staff: CHERYLE GUZMAN JR, Radiologist (Software Technical Lead) /CHERYLE VALENCIA JR [facility] Sep 26, 2023 08:32 AM HIP 2-3 VIEWS (RIGHT) WITH OR WITHOUT PELVIS: GUSTAVO ARAMBULA 1940 M Exm Date: SEP 26, 2023@08:32 Req Phys: TRACY VILLANUEVA Loc: CWM/SO/PACT 7 (Req'g Loc) Img [facility]: [facility] 1 Service: Unknown (Case [id number] COMPLETE) HIP 2-3 VIEWS (RIGHT) WITH OR WIT(RAD Detailed) CPT:34025 CPT Modifiers : RT RIGHT SIDE Reason for Study: hip pain Clinical History: 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, fellow, DRUG ROOM CLERK or attending: Tracy Villanueva NP [place] Pager: [phone] Backup pager: History: chronic right hip pain, hx CAROL ANN Report Status: Verified Date Reported: SEP 26, 2023 Date Verified: SEP 26, 2023 Software Technical Lead E-Sig:/ES/CHERYLE GUZMAN JR Report: Study: AP view [...] Primary Interpreting Staff: CHERYLE GUZMAN JR, Radiologist (Software Technical Lead) /CHERYLE VALENCIA JR [facility] Sep 05, 2023 11:05 AM HIP 2-3 VIEWS(LEFT) WITH OR WITHOUT PELVIS: GUSTAVO ARAMBULA 1940 M Exm Date: SEP 05, 2023@11:05 Req Phys: DANIELE CHILDS Pat Loc: CWM/NO/PACT/FIRM DRUG ROOM CLERK (Req'g Loc Img [facility]: [facility] 1 Service: Unknown (Case 18 COMPLETE) HIP 2-3 VIEWS(LEFT) WITH OR WITHO(RAD Detailed) CPT:81546 Proc Modifiers : LEFT CPT Modifiers : LT LEFT SIDE Reason for Study: chronic left hip pain Clinical History: Report Status: Verified Date Reported: SEP 05, 2023 Date Verified: SEP 05, 2023 Software Technical Lead E-Sig:/ES/CHERYLE GUZMAN JR Report: Study: AP view [...] Primary Interpreting Staff: CHERYLE GUZMAN JR, Radiologist (Software Technical Lead) /CHERYLE VALENCIA JR [facility] Encounter Notes: All associated encounter notes This section contains the clinical notes associated to the Encounter. Date/Time Encounter Note(s) Provider Source Sep 12, 2023 04:22 PM PSYCHIATRY NOTE: LOCAL TITLE: PSYCHIATRY NOTE STANDARD TITLE: PSYCHIATRY NOTE DATE OF NOTE: SEP 12, 2023@16:22 ENTRY DATE: SEP 12, 2023@16:22:11 AUTHOR: LANA COLINDRES EXP COSIGNER: URGENCY: STATUS: COMPLETED Nestor Sleepiness Scale: Sitting and readin Watching TV: 3 Sitting, inactive, in a public place (e.g., in a meeting, theater, or dinner event): 2 As a passenger in a car for an hour or more without stoppin Lying down to rest when circumstances permit: 3 Sitting and talking to someone Sitting quietly after a meal without alcohol: 1 In a car, while stopped for a few minutes in traffic or at a light: 0 Total Score: 14 /reginaldo/ LANA COLINDRES PSYCHIATRIST Signed: 09/12/2023 16:23 LANA COLINDRES [facility] Sep 12, 2023 10:09 AM PSYCHIATRY NOTE: LOCAL TITLE: PSYCHIATRY NOTE STANDARD TITLE: PSYCHIATRY NOTE DATE OF NOTE: SEP 12, 2023@10:09 ENTRY DATE: SEP 12, 2023@10:09:16 AUTHOR: LANA COLINDRES EXP COSIGNER: URGENCY: STATUS: COMPLETED PSYCHIATRY FOLLOW UP VISIT GUSTAVO ARAMBULA SR is a 82yo MARITAL STATUS - WHITE MALE with a history of [employer] FROM December TO Oct INTERVAL HISTORY Continues to struggle with abdominal pain and hip pain. Notes his memory and concentration are poor--was not able to do a puzzle. Feels frustrated that his immediate memory is gone , forgetting things one room to the next. Forgot his hearing aids today. Reports he is hallucinating in the past 2 years, and it has gotten worse. These are not hallucinations, but images that happen inside his head when he closes his eyes. They seem to be more like short intense dreams that he forgets when he wakes up. Sleeps well at night with mirtazapine, trazodone, melatonin. 9pm--7:30am. Energy is low. Ferritin was 20 on 09/07 but denies any restless legs. CURRENT MEDICATIONS Active Outpatient Medications (including Supplies): [...] ONE TABLET BY MOUTH ACTIVE EVERY MORNING FLUTICAS 500/SALMETEROL 50 INHL DISK 60 INHALE 1 PUFF BY ACTIVE MOUTH TWICE DAILY - RINSE MOUTH AFTER USE LANCET,SOFTCLIX USE 1 LANCET DIRECTED NEEDED TO ACTIVE TEST BLOOD SUGAR MELATONIN 5MG CAP/TAB TAKE ONE CAPSULE/TABLET BY [...] BY MOUTH THREE ACTIVE TIMES A DAY TIOTROPIUM 2.5MCG/ACTUAT 60D ORAL INHL INHALE 2 PUFFS BY ACTIVE MOUTH ONCE DAILY TRAZODONE HCL 100MG TAB TAKE ONE TABLET BY MOUTH AT ACTIVE BEDTIME SUPPLEMENTS: ALLERGIES: GEMFIBROZIL, LISINOPRIL MEDICAL HISTORY Active Problem Long-term current use of anticoagul 02/10/2023 HAY [place] Communication authorization R69. 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 02/09/2023 YULY [place]IN JAWED Abnormal imaging R93.421 02/09/2023 YULY [place] JAWED Aortic valve stenosis I35.0 09/18/2022 DANIELE CHILDS Aneurysm of ascending aorta I71.21 09/18/2022 DANIELE CHILDS Osteopenia M85.80 08/15/2022 DANIELE CHILDS Sleep apnea G47.30 09/03/2022 DANIELE CHILDS Admits alcohol use F10.90 08/08/2022 GALDINO KIRBY Epistaxis R04.0 03/26/2022 DANIELE CHILDS Insomnia G47.09 03/22/2022 LANA COLINDRES Hyponatremia E87.1 12/10/2021 OLIVE GHOSH Chronic obstructive lung disease J4 11/17/2021 CAITLIN PENA History of peripheral vascular dise 11/17/2021 CAITLIN PENA Jc's esophagus 530.85 10/31/2013 JOVANY NAYLOR Osteopenia 733.90 10/04/2010 JAZ BRIAN MD Degeneration of intervertebral disc 10/04/2010 JAZ BRIAN MD Depression (SNOMED CT 66723284) F33 12/10/2021 TRAVIS GOMES Impaired Fasting Glucose 790.21 07/10/2009 ADILIA GREEN Dry Eye Syndromes * (ICD-9-CM 375.1 03/17/2009 NAHED JARQUIN OD Late effect of fracture of skull an 12/03/2008 JOVANY NAYLOR Hip Joint replacement Status (Prost 12/19/2007 JOVANY NAYLOR 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 Reports increase in depressive symptoms x 2 months and recent 20+ lb weight loss, poor sleep. Last Na on 02/03/23 at [facility] was 135. Ongoing pain and fatigue. Armodafinil not possible due to interaction with Belbuca. Stimulant not ideal given HTN. Will try for pitolisant for wakefulness. DIAGNOSIS: I. Major Depressive Disorder II. INSOMNIA DIFFERENTIAL Depression due to medical causes- recent cardiac surgery, pain, DM2 Sleep Apnea, Smoking Chronic insomnia Risk of falls on trazodone and mirtazapine. PLAN -pitolisant 4.45mg qam for energy in the context of sleep apnea--will try for NF consult -consult Monica Gilmore re: hypnosis for pain and smoking cessation. -reduce trazodone to 50mg at bedtime -cont pregabalin 25mg TID--will defer to Pain Management regarding adjustment. - Continue bupropion SR to 200mg qam for mood/ smoking. - Cont mirtazapine dose to 15 mg nightly - Cont melatonin 5 mg at HS for sleep - Cont smoking cessation counseling - [facility] Sleep medicine, encouraged CPAP use all night - Cardiology - Hematology F/U - Pain management follow up in Jul. - Patient will consider psychotherapy once medical work-up completed REFILLS/COVERAGE Melatonin and mirtazapine to be mailed, okay for refills FOLLOW UP IN CLINIC [...] of active outpatient prescriptions dispensed from this [facility] (local) and dispensed from another [facility] or [facility] facility (remote) as well as [...] and updated. /reginaldo/ LANA COLINDRES PSYCHIATRIST Signed: 09/12/2023 15:12 LANA COLINDRES CNTRL [facility]
--- OUTSIDE RECORDS SUMMARY | 2024-08-16 09:31 | XMS_ITS | Encounter Summary ---
Author Name [facility] [facility] [place] [facility] [place] Address [address] [place] [address] Care Team Providers Care Rib Knitter Name Role Phone TRACY VILLANUEVA Primary Care [...] PHI MEDEX BRONZ E December 19, 2013 [id number] [phone] GUSTAVO GUZMAN SR PATIENT [employer] MEDICARE SUPPLEMEN PHI MEDIC ARE SUPPL EMENT Jul 21, 2007 NONE [id number] [phone] Edgar GUZMAN [place] SUPPLEMEN PHI MEDEX BRONZ E December 19, 2013 [id number] [phone] GUSTAVO GUZMAN SR PATIENT [place] MEDICARE SUPPLEMEN PHI MEDEX BRONZ E December 19, 2013 [id number] [phone] FILEMONEEdgar [place] PATIENT MEDICARE (WNR) MEDICARE (M) PART A Oct 19, 2004 PART A [id number] FILEMONEEdgar [place] PAT[place] MEDICARE ([place]) MEDICARE (M) PART B Oct 19, 2004 PART B [id number] FILEMONEEdgar [place] PAT[place] MEDICARE ([place]) MEDICARE (M) PART A Oct 19, 2004 PART A [id number] SEVABIEEdgar [place] PATIENT MEDICARE (W[place]) MEDICARE (M) PART B Oct 19, 2004 PART B [id number] FILEMONEEdgar [place] PAT[place] MEDICARE ([place]) MEDICARE (M) PART A Oct 19, 2004 PART A [id number] [phone] SEVIGNEEdgar [place] PAT[place] MEDICARE (WNR) MEDICARE () PART B Oct 19, 2004 PART B [id number] SEVABIEEdgar [place] PAT[place] MEDICARE ([place]) MEDICARE () PART A Oct 19, 2004 PART A [id number] FILEMONEEdgar [place] PAT[place] MEDICARE ([place]) MEDICARE () PART B Oct 19, 2004 PART B [id number] SEVIGNEEdgar [place] PAT[place] MEDICARE ([place]) MEDICARE () PART A Oct 19, 2004 PART A [id number] SEVABIEEdgar [place] PATIENT MEDICARE ([place]NR) MEDICARE () PART B Oct 19, 2004 PART B [id number] SEVABIEEdgar [place] PATIENT Selected Encounter This section includes the information on record at [place] for the Encounter. 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 Date/Time Primary/Secondary Diagnosis Diagnosis Name Provider Source Sep 05, 2023 10:39 AM PRIMARY FPC (current) use of anticoagulants LANI CHILDS NAHUM BOSE [place] [facility] Sep 05, 2023 10:39 AM SECONDARY Aneurysm of the ascending aorta, without rupture LANI CHILDS LIDYA [place] [facility] [facility] Sep 05, 2023 10:39 AM SECONDARY Chronic obstructive pulmonary disease, unspecified LANI CHILDS NAHUM MCKINNEYLIDYA IN [facility] [facility] Sep 05, 2023 10:39 AM SECONDARY Nonrheumatic aortic (valve) stenosis LANI CHILDS NAHUM MCKINNEYLIDYA IN [place] [facility] Sep 05, 2023 10:39 AM SECONDARY Oth disrd of bone density and structure, unspecified site LANI CHILDS LIDYA [place] [facility] Sep 05, 2023 10:39 AM SECONDARY Sleep apnea, unspecified LANI CHILDS NAHUM MCKINNEYLIDYA [place] [facility] Plan of Treatment: Future Appointments (+ 6 months) and Future Tests (+/- 45 days) The Plan of Treatment section includes future care activities for the patient from all [place] treatmentfacilities. This section includes future appointments and [...] 11, 2023 08:45 AM AMBULATORY - MEDICINE IN C [facility] [place] [facility] Sep 12, 2023 10:00 AM AMBULATORY - PSYCHIATRY IN [facility] [place] [facility] Sep 25, 2023 10:30 AM AMBULATORY - MEDICINE [facility] Sep 26, 2023 08:27 AM AMBULATORY - NONE [place] [facility] Sep 26, 2023 12:00 PM AMBULATORY - MEDICINE IN C [place] [facility] Oct 16, 2023 09:00 AM AMBULATORY - MEDICINE [facility] [place] [facility] Nov 06, 2023 09:30 AM AMBULATORY - MEDICINE [facility] [place] [facility] December 21, 2023 09:00 AM AMBULATORY - PSYCHIATRY [facility] [place] [facility] December 25, 2023 09:00 AM AMBULATORY - MEDICINE [facility] Feb 05, 2024 10:00 AM AMBULATORY - MEDICINE IN [place] [facility] Feb 13, 2024 11:30 AM AMBULATORY - MEDICINE [facility] Feb 15, 2024 09:00 AM AMBULATORY - PSYCHIATRY [place] [facility] Feb 15, 2024 09:45 AM AMBULATORY - NONE [facility] Active, Pending, and Scheduled Orders This section includes a listing of several types of active, pending, and scheduled orders, including clinic medications orders, diagnostic test orders, procedure orders and consult orders; where the start date of the order is 45 days before the date of the Encounter or 45 days after the date of theEncounter. The data comes from all [place] treatment facilities. Test Date/Time Test Type Test Details Facility Name Sep 05, 2023 12:00 AM Laboratory - Chemi stry Order OCCULT BLOOD FIT X1 SCREEN(IN-HOUSE) STOOL FECES SP [facility] [place] [place] [facility] Sep 26, 2023 09:55 AM Consult Order [facility] Cons Asp Net Mvc Developer's Choice [facility] Lab Results: +/- 30 days of the encounter This section includes the Chemistry and Hematology Lab Results on record with [place] for the patient. Radiology Reports and Pathology Reports are provided separately, in subsequent sections. Lab Results This section contains the Chemistry/Hematology Results that were resulted 30 days before or 30 daysafter the date of the Encounter. Date/Time Source Result Type Result - Unit Interpretation Reference Range Comment Sep 05, 2023 10:56 AM [facility] FERRITIN Specimen Type: SERUM No comment entered. Ordering Provider: YOAN CHILDS Report Released Date/Time: Sep 05, 2023 10:30 AM Reporting Lab: [address] [address] Performing Lab: [place] [address] [facility] [address] FERRITIN 25 ng/mL 20-300 Sep 05, 2023 10:56 AM [facility] IRON & TIBC PANEL Specimen Type: SERUM No comment entered. Ordering Provider: YOAN CHILDS Report Released Date/Time: Sep 05, 2023 10:30 AM Reporting Lab: [address] [address] Performing Lab: [address] [address] TIBC 401 ug/dL 204-475 IRON 53 ug/dL 40-160 Transferrin Saturation 13.2 L 20.0-50.0 Sep 05, 2023 10:56 AM [facility] CBC AND DIFF (AUTO) Specimen Type: BLOOD No comment entered. Ordering Provider: YOAN CHILDS Report Released Date/Time: Sep 05, 2023 10:30 AM Reporting Lab: [address] [address] Performing Lab: [address] [address] WBC 5.66 10*3/uL 4.50-11.00 RBC 4.25 10*6/uL 4.23-5.66 HGB 12.1 g/dL L 12.8-17 HCT 35.5 L 39.2-50.4 MCV 83.5 fL 82-99 MCHC 34.1 g/dL 30.8-35.1 PLT 295 10*3/uL 140-360 RDW-CV 12.0 12.0-16.0 Rice, Abs 0.59 10*3/uL 0.30-1.10 MCH 28.5 pg 26.2-32.6 Neut % 56.3 43.7-75.8 Lymph % 27.2 14.0-42.3 Rice % 10.4 5.1-13.7 Eos % 4.1 0.4-6.8 Baso % 1.6 0.1-2.0 Neut, Abs 3.19 10*3/uL 2.20-7.60 Lymph, Abs 1.54 10*3/uL 1.00-3.20 Eos, Abs 0.23 10*3/uL 0.03-0.44 Baso, Abs 0.09 10*3/uL 0.01-0.13 Immature Gran % 0.4 0.0-0.7 Immature Gran, Abs 0.02 10*3/uL 0.00-0.06 Sep 01, 2023 10:29 AM [facility] LIPID PANEL FASTING Specimen Type: SERUM No comment entered. Ordering Provider: YULY AUSTIN Report Released Date/Time: Aug 17, 2023 08:25 AM Reporting Lab: [address] [address] Performing Lab: [address] [address] CHOLESTEROL 133 mg/dL TRIGLYCERIDE 73 mg/dL 0-150 LDL calculated 75 mg/dL 0-129 CHOL/HDL 3.1 HDL CHOLESTEROL 43 mg/dL 40-60 Sep 01, 2023 10:29 AM [facility] HEMOGLOBIN A1C PANEL Specimen Type: BLOOD [...] Aug 17, 2023 08:25 AM Reporting Lab: [facility] [address] [facility] [address] Performing Lab: [address] [address] HEMOGLOBIN A1C 6.7 H 4.0-5.6 Sep 01, 2023 10:29 AM [facility] BASIC METABOLIC PANEL (fasting) Specimen Type: SERUM No comment entered. Ordering Provider: YULY AUSTIN Report Released Date/Time: Aug 17, 2023 08:25 AM Reporting Lab: [facility] [address] [facility] [address] Performing Lab: [facility] [address] [facility] [address] UREA NITROGEN 10 mg/dL 7-25 GLUCOSE 135 mg/dL H 65-100 SODIUM 138 mmol/L 135-145 POTASSIUM 3.9 mmol/L 3.5-5.0 CHLORIDE 101 mmol/L 100-110 CO2 27 meq/L 20-30 CREATININE, Serum 0.73 mg/dL 0.50-1.40 eGFR(CKD-EPI 2020) 90 mL/min >60 Sep 01, 2023 10:29 AM [facility] LIVER FUNCTION Specimen Type: SERUM No comment entered. Ordering Provider: YULY AUSTIN Report Released Date/Time: Aug 17, 2023 08:25 AM Reporting Lab: [address] [address] Performing Lab: [address] [address] PROTEIN,TOTAL 6.9 g/dL 6.0-8.3 ALBUMIN 3.8 g/dL 3.5-5.0 ALKALINE PHOSPHATASE 91 U/L 40-150 AST 14 U/L 5-34 ALT 13 U/L BILIRUBIN, TOTAL 0.5 mg/dL 0.2-1.2 Sep 01, 2023 10:29 AM [facility] MICROALBUMIN CREATININE RATIO PANEL Specimen Type: URINE No comment entered. Ordering Provider: YULY AUSTIN Report Released Date/Time: Aug 17, 2023 08:25 AM Reporting Lab: [facility] [address] [facility] [address] Performing Lab: [address] [address] MICROALBUMIN/C REATININE RATIO 9.0 mg/g 0-29.9 MICROALBUMIN,Q UANTITATIVE 1.0 mg/dL RR UNAVAIL CREATININE URINE 110.79 mg/dL Sep 01, 2023 10:29 AM [facility] CBC AND DIFF (AUTO) Specimen Type: BLOOD No comment entered. Ordering Provider: YULY AUSTIN Report Released Date/Time: Aug 17, 2023 08:25 AM Reporting Lab: [place] [facility] [address] [facility] [address] Performing Lab: IN CNT WSN [facility] [address] [facility] [address] WBC 8.35 10*3/uL 4.50-11.00 RBC 4.17 10*6/uL L 4.23-5.66 HGB 12.0 g/dL L 12.8-17 HCT 35.3 L 39.2-50.4 MCV 84.7 fL 82-99 MCHC 34.0 g/dL 30.8-35.1 PLT 305 10*3/uL 140-360 RDW-CV 12.3 12.0-16.0 Rice, Abs 0.71 10*3/uL 0.30-1.10 MCH 28.8 pg 26.2-32.6 Neut % 66.3 43.7-75.8 Lymph % 20.8 14.0-42.3 Rice % 8.5 5.1-13.7 Eos % 3.0 0.4-6.8 [...] Sep 05, 2023 10:22 AM 130/74 mm[Hg] [place] [facility] Sep 05, 2023 10:02 AM 98.1 F 74 /min 156/80 mm[Hg] 16 /min 99 % 7 143 lb 25 [place] [facility] Social History: Smoking Status (Most [...] 2022 03:00 PM VA-TOBACCO USER EVERY DAY [place] [facility] Tobacco Use History This section includes a history of the smoking, or tobacco-related health factors, that were collected on or before the date of the Encounter. The data comes from the [place] facility where the Encounter took place. Date/Time Smoking Status/Tobac co Use Comment Facility Dec 13, 2022 03:00 PM VA-TOBACCO USE 30 YEARS OR MORE [facility] [place] [facility] Dec 13, 2022 03:00 PM VA-TOBACCO USE ADVICE [facility] [place] [facility] Dec 13, 2022 03:00 PM VA-TOBACCO USE RETORT LOADER NO [facility] [place] [facility] Dec 13, 2022 03:00 PM VA-TOBACCO USE MED NO [facility] [place] [facility] Dec 13, 2022 03:00 PM VA-TOBACCO USER EVERY DAY [facility] [place] [facility] Nov 17, 2021 10:00 AM VA-TOBACCO USE 30 YEARS OR MORE [facility] [place] [facility] Nov 17, 2021 10:00 AM VA-TOBACCO USE ADVICE [place] [facility] [place] [facility] Nov 17, 2021 10:00 AM VA-TOBACCO USE RETORT LOADER NO [facility] [place] [facility] Nov 17, 2021 10:00 AM VA-TOBACCO USE MED NO [facility] [place] [facility] Nov 17, 2021 10:00 AM VA-TOBACCO USE WI 30 MIN OF WAKEUP [facility] [place] [facility] Nov 17, 2021 10:00 AM VA-TOBACCO USER EVERY DAY [facility] [place] [facility] Oct 14, 2013 12:55 PM V1-PT NOT INTERESTED IN QUIT TOBACCO USE [facility] [place] [facility] May 07, 2013 05:04 PM CURRENT SMOKER trying to stop [facility] May 07, 2013 05:04 PM V1-PT DECLINES REF TO TOBACCO CESS PRGM [facility] May 07, 2013 05:04 PM V1-PT DECLINES TOBACCO CESSATION MEDS [facility] May 07, 2013 05:04 PM V1-PT READY TO QUIT TOBACCO USE [facility] Dec 03, 2012 08:23 AM V1-PT DECLINES REF TO TOBACCO CESS PRGM [facility] Dec 03, 2012 08:23 AM V1-PT DECLINES TOBACCO CESSATION MEDS [facility] Dec 03, 2012 08:23 AM V1-PT THINKING ABOUT QUIT TOBACCO USE [facility] Jun 05, 2012 08:45 AM CURRENT SMOKER 1/2ppd [facility] Jun 05, 2012 08:45 AM V1-PT DECLINES REF TO TOBACCO CESS PRGM [facility] Jun 05, 2012 08:45 AM V1-PT THINKING ABOUT QUIT TOBACCO USE [facility] Jun 05, 2012 08:45 AM V1-TOBACCO CESS MEDS NOT PRESCRIBED Vet wants to talk to his provider-He is nervous about taking meds to quit- but he is interested in quitting [facility] Nov 25, 2011 09:14 AM V1-PT DECLINES REF TO TOBACCO CESS PRGM [facility] Nov 25, 2011 09:14 AM V1-PT DECLINES TOBACCO CESSATION MEDS [facility] Nov 25, 2011 09:14 AM V1-PT THINKING ABOUT QUIT TOBACCO USE [facility] May 06, 2011 01:02 PM CURRENT SMOKER [facility] May 06, 2011 01:02 PM V1-PT DECLINES TOBACCO CESSATION MEDS [facility] May 06, 2011 01:02 PM V1-PT NOT INTERESTED IN QUIT TOBACCO USE [facility] [place] [facility] Sep 24, 2010 08:51 AM V1-PT DECLINES TOBACCO CESSATION MEDS [facility] [place] [facility] Sep 24, 2010 08:51 AM V1-PT THINKING ABOUT QUIT TOBACCO USE [facility] [place] [facility] Mar 22, 2010 07:58 AM CURRENT SMOKER 1/2 ppd [facility] [place] [facility] Feb 25, 2009 12:05 PM QUIT TOBACCO USE IN PAST YEAR [facility] [place] [facility] Aug 26, 2008 09:28 AM CURRENT SMOKER 1/2 ppd [facility] [place] [facility] Aug 26, 2008 09:28 AM V1-PT DECLINES REF TO TOBACCO CESS PRGM [facility] [place] [facility] Aug 26, 2008 09:28 AM V1-PT READY TO QUIT TOBACCO USE [facility] [place] [facility] Dec 19, 2007 10:08 AM V1-PT DECLINES REF TO TOBACCO CESS PRGM [facility] [place] [facility] Dec 19, 2007 10:08 AM V1-PT DECLINES TOBACCO CESSATION MEDS [facility] [place] [facility] Dec 19, 2007 10:08 AM V1-PT THINKING ABOUT QUIT TOBACCO USE [facility] [place] [facility] Sep 11, 2007 11:10 AM CURRENT SMOKER [facility] [place] [facility] Sep 11, 2007 11:10 AM V1-PT DECLINES REF TO TOBACCO CESS PRGM [facility] [place] [facility] Sep 11, 2007 11:10 AM V1-PT DECLINES TOBACCO CESSATION MEDS [facility] [place] [facility] Sep 11, 2007 11:10 AM V1-PT THINKING ABOUT QUIT TOBACCO USE [facility] [place] [facility] Feb 13, 2007 01:46 PM V1-PT DECLINES REF TO TOBACCO CESS PRGM [facility] [place] [facility] Feb 13, 2007 01:46 PM V1-PT DECLINES TOBACCO CESSATION MEDS [facility] [place] [facility] Feb 13, 2007 01:46 PM V1-PT THINKING ABOUT QUIT TOBACCO USE [facility] [place] [facility] Oct 02, 2006 08:28 AM QUIT TOBACCO USE IN PAST YEAR 3 months ago [facility] Aug 19, 2005 08:33 AM QUIT TOBACCO USE IN PAST YEAR nonsmoker [facility] Sep 21, 2004 09:54 AM CURRENT SMOKER [facility] Sep 07, 2004 08:07 AM CURRENT SMOKER [facility] Sep 15, 2003 11:21 AM CURRENT SMOKER smokes [facility] pk day [facility] Jul 23, 2003 01:57 PM CURRENT SMOKER [facility] Advance Directives: All historical and [...] Source Apr 10, 2023 ADVANCE DIRECTIVE [facility] Apr 19, 2007 ADVANCE DIRECTIVE ELIZABETHSEAMUSJason [facility] Radiology Reports: +/- 30 days of [...] AM SPINE LUMBOSACRAL MIN 2 VIEWS: GUSTAVO GUZMAN -1940 M Exm Date: SEP 26, 2023@08:32 Req Phys: TRACY VILLANUEVA Loc: CWM/SO/PACT 7 (Req'g Loc) Img Loc: [facility] 1 Service: Unknown (Case 86 COMPLETE) SPINE LUMBOSACRAL MIN 2 VIEWS (RAD Detailed) CPT:11503 Reason for Study: lumbar pain Clinical History: 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, fellow, FOUNTAIN CLERK or attending: Tracy Villanueva NP [place] Pager: [phone] Backup pager: History: chronic lumbar spine pain Report Status: Verified Date Reported: SEP 26, 2023 Date Verified: SEP 26, 2023 Board Filler E-Sig:/ES/CHERYLE GUZMAN JR Report: Study: AP, lateral [...] Primary Interpreting Staff: CHERYLE GUZMAN JR, Radiologist (Board Filler) /CHERYLE VALENCIA JR [place] [facility] Sep 26, 2023 08:32 AM HIP 2-3 VIEWS (RIGHT) WITH OR WITHOUT PELVIS: GUSTAVO GUZMAN -1940 M Ex Date: SEP 26, 2023@08:32 Req Phys: TRACY VILLANUEVA Pat Loc: CWM/SO/PACT 7 (Req'g Loc) [facility] [place] Loc: [facility] 1 Service: Unknown (Case 85 COMPLETE) HIP 2-3 VIEWS (RIGHT) WITH OR WIT(RAD Detailed) CPT:05884 CPT Modifiers : RT RIGHT SIDE Reason for Study: hip pain Clinical History: 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, fellow, FOUNTAIN CLERK or attending: Tracy Villanueva NP [place] Pager: [phone] Backup pager: History: chronic right hip pain, hx CAROL ANN Report Status: Verified Date Reported: SEP 26, 2023 Date Verified: SEP 26, 2023 Board Filler E-Sig:/ES/CHERYLE GUZMAN JR Report: Study: AP view [...] Primary Interpreting Staff: CHERYLE GUZMAN JR, Radiologist (Board Filler) /CHERYLE VALENCIA JR [facility] Sep 05, 2023 11:05 AM HIP 2-3 VIEWS(LEFT) WITH OR WITHOUT PELVIS: GUSTAVO GUZMAN -1940 M Exm Date: SEP 05, 2023@11:05 Req Phys: DANIELE CHILDS Loc: CWM/NO/PACT/FIRM FOUNTAIN CLERK (Req'g Loc Img Loc: [facility] 1 Service: Unknown (Case 18 COMPLETE) HIP 2-3 VIEWS(LEFT) WITH OR WITHO(RAD Detailed) CPT:75632 Proc Modifiers : LEFT CPT Modifiers : LT LEFT SIDE Reason for Study: chronic left hip pain Clinical History: Report Status: Verified Date Reported: SEP 05, 2023 Date Verified: SEP 05, 2023 Board Filler E-Sig:/ES/CHERYLE GUZMAN JR Report: Study: AP view [...] Primary Interpreting Staff: CHERYLE GUZMAN JR, Radiologist (Board Filler) /CHERYLE VALENCIA JR [facility] Encounter Notes: All associated encounter notes This section contains the clinical notes associated to the Encounter. Date/Time Encounter Note(s) Provider Source Sep 11, 2023 12:11 PM ADDENDUM: LOCAL TITLE: Addendum STANDARD TITLE: ADDENDUM DATE OF NOTE: SEP 11, 2023@12:11:41 ENTRY DATE: SEP 11, 2023@12:11:42 AUTHOR: ADRIANA BA COSIGNER: URGENCY: STATUS: COMPLETED As per the patient's request, please transfer care to [place] PACT 7 and establish an appointment within the next 120 days. Thank you. /reginaldo/ ADRIANA BA NP NURSE PRACTITIONER Signed: 09/11/2023 12:12 Receipt Acknowledged By: 09/11/2023 14:38 /reginaldo/ Sapphire Meredith ADV[employer]ED [employer] RECONNAISSANCE SPECIALIST --- Original Document --- 09/05/23 NURSE PRACTITIONER OUTPATIENT NOTE: CC Presents today for left hip pain, ongoing HPI This is a 82 y/o male with history of Active problems - Computerized Problem List is the source for the followin. Long-term current use of anticoagulant 2. Communication authorization Gustavo Guzman Jr or Gustavo Guzman Sr. 3. Splenic infarction Chronic pain management with opioids 4. Abnormal imaging Exophytic lesion right kidney 5. Aortic valve stenosis ECHO 09/14/22 BLAISE 1.0cm2 EF 65% 6. Aneurysm of ascending aorta Borderline ascending aorta on ECHO 09/14/22 measuring 3.8cm 7. Osteopenia on Dexa 07/2022, rpt in 10 years 8. Sleep apnea following with [facility], severe sleep apnea per note 08/11/22, rec for cpap Left GSV Venaseal 07/29/22 [facility] 9. Admits alcohol use 10. Epistaxis Seen by ENT [facility] 03/08/22 rec nml saline intranasally 5-6 x per day and water based lubricant ie KY jelly intranasally TID 11. Insomnia 12. Hyponatremia 13. Chronic obstructive lung disease 14. History of peripheral vascular disease atherectomy and plast of left popleteal artery 15. 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 16. Osteopenia 17. Degeneration of intervertebral disc 18. Depression (SNOMED CT [id number]) Reviewed Reviewed Reviewed 19. Impaired Fasting Glucose 20. Dry Eye Syndromes * 21. Late effect of fracture of skull and face bones Fracture, plate and hardware from tablesaw accident. 22. Hip Joint replacement Status (Prosthetic or Artificial Device) Right THR 03/27, Left THR 10/26 23. Arthritis/DJD 24. Prostate, Malign Neoplasm total prostatectomy 2005 25. Anisocoria * 26. Cataract, Cortical (Senile) 27. Open Angle Glaucoma Suspect 28. HYPERLIPIDEMIA 29. HYPERTENSION 30. POLYPS, COLON/LG BOWEL (BENIGN MAEGAN October, study fine, repeat 2018. 31. Headaches * 32. Tobacco use (SNOMED CT [id number]) Denies any recent fever, chills, cough, chest pain, sob, dizziness. No recent visits or hospitalizations Left hip pain--s/p hip replacement 16-17 years ago -no new injuries -pain is worse with standing, ambulation [facility] LISINOPRIL MEDICATIONS: Active and Recently Outpatient Medications (excluding Supplies): Active Outpatient Medications Status 1) AMLODIPINE [...] ONE TABLET BY ACTIVE MOUTH EVERY MORNING 7) FLUTICAS 500/SALMETEROL 50 IN[facility] DISK 60 [...] MOUTH ACTIVE THREE TIMES A DAY 13) TIOTROPIUM 2.5MCG/ACTUAT 60D ORAL [facility] INHALE 2 PUFFS ACTIVE BY MOUTH ONCE DAILY 14) TRAZODONE HCL 100MG TAB TAKE ONE TABLET BY MOUTH AT ACTIVE BEDTIME Inactive Outpatient Medications Status 1) OXYCODONE HCL 5MG TAB NOT SA TAKE ONE TABLET BY MOUTH TWICE DAILY NEEDED FOR PAIN (NEXT FILL 08/31/23) 15 Total Medications SOCIAL HISTORY Tobacco active smoker --10 cigs per day, not interested in quitting, has patches when ready Alcohol denies x 8 months Drugs denies Taking care of female partner who has been sick lately, managing stress ok, manging housechores etc ok, denies need for 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 HEENT: denies vision problem, hearing loss, tinnitus, dysphagia, pharyngitis RESP chronic dysnea, unchanged CV denies CP, LL Edema GI denies abd pain, hematochezia denies hematuria, nocturia ENDO denies increased thirst, hunger or urination M/S Left hip pain chronic, worsening, abulates with cane, declines walker PE General: NAD HEENT PERRLA, EOMIs, B/L intact TMs,no lymphadenopathy, no lesions/exudate of posteriorpharynx, tongue midline without lesions RESP clear to auscultation bilaterally CV RR S1 S2 No LE edema GI BS + x 4, soft, nontender, nondistended, no rebound or guarding NEURO CN II-XII without focal deficit, gait steady without shuffle, MENTAL A&Ox3 Appropriate, Pleasant, Cooperative VITALS 98.1 F [36.7 C] (09/05/2023 10:02) 74 (09/05/2023 10:02) 16 (09/05/2023 10:02) 156/80 (09/05/2023 10:02) rpt manual 130/74 7 (09/05/2023 10:02) 63 in [160.0 cm] (03/06/2023 11:10) 143 lb [64.86 kg] (09/05/2023 10:02) BMI: 25.4 A/P ASSESSMENT AND PLAN: 1. Active smoker, COPD. -not using inahlers, encouraged to do so; states feeling lazy so hasn't been taking ,knows he should, will resume -reinforced recommendation to quit smoking, not interested but has patches if changes mind -no recent COPD flares 2. Aortic stenosis, s/p TAVR 01/19/23 --following with [facility] Cardiology; re- entered consult to Dr. Barney for f/u 3.Osteopenia last bone density was July 2022; on CA and VIt D. No fx. 4. DM on metformin his last hemoglobin A1c was 6.7, recommend Nutrition consult, he declines; following with optometry 5. Hypertension -on amlodipine, elevated on arrival, rpt manual bp at goal -reinforced diet--low sodium, eats a lot of [place] and [employer] 6. History of PVD s/p angioplastin LLE followed by vascular surgery Dr. Enzo Danielle 7. Hypercholesterolemia on atorvastatin 20 mg -tolerating well -lipids well controlled 08/2023 8. Obstructive sleep apnea using CPAP machine and no issues were identified; using nightly and with naps. 9. Mild anemia on most recent labs, ordered for rpt cbc, iron studies and fit test. No abd pain, blood in stool,black stool. 10. H/o Jc's esophaugs, no recent EGD, on pantoprazole -consult to GI Vet requesting to transfer to [facility] due to distance. HTN Assess for Elevated BP>=140/90: Repeat blood pressure: 130/74 Medication Reconciliation: Outpatient: Has the patient been taking medications as documented in the EMLR? YES: The patient has been taking medications as documented in the EMLR. Essential Medication List for Review used to complete this medication reconciliation. INCLUDED IN THIS LIST: Alphabetical list of active outpatient prescriptions dispensed from this [place] (local) and dispensed from another [place] or [facility] facility (remote) as well as inpatient orders [...] whether with a VA or non-VA provider. Eye Care At-Risk Screen : Patient identified to be at risk for the following eye condition(s): DIABETIC RETINOPATHY: Diabetes Diagnosis Information: Encounter Diagnosis: 12/13/2022@15:00 Z79.84 (ICD-10-CM) FPC (current) use of oral hypoglycemic drugs rank: SECONDARY Prov. Narr. - FPC (current) use of oral hypoglycemic drugs MACULAR DEGENERATION: Macular Degeneration Risk Factors Information: Reminder Term: VA-AMD RISK FACTORS Encounter Diagnosis: 07/04/2023@11:00 F17.210 (ICD-10-CM) Nicotine Dependence, Cigarettes, Uncomplicated rank: SECONDARY Prov. Narr. - Nicotine Dependence, Cigarettes, Uncomplicated GLAUCOMA: Glaucoma Risk Factors Information: Encounter Diagnosis: 09/20/2010@08:00 365.01 (ICD-9-CM) Open angle with borderline glaucoma findings rank: PRIMARY Prov. Narr. - Open Angle Glaucoma Suspect Action: Referral Ordered: Tele-Eye Screening /reginaldo/ DANIELE CHILDS NP NURSE PRACTITIONER Signed: 09/05/2023 10:46 09/05/2023 ADDENDUM STATUS: COMPLETED Left hip pain-- s/p replacement 17 years ago -ambualting with cane, has walker, does not use -no recent falls -heck xray PT Vs ortho /reginaldo/ DANIELE CHILDS NP NURSE PRACTITIONER Signed: 09/05/2023 10:47 09/05/2023 ADDENDUM STATUS: COMPLETED Vet requesting trasnfer to [facility] due to distance. /reginaldo/ DANIELE CHILDS NP NURSE PRACTITIONER Signed: 09/05/2023 10:47 Receipt Acknowledged By: 09/11/2023 12:11 /es/ ADRIANA BA NP NURSE PRACTITIONER 09/06/2023 09:29 /es/ OLEKSANDR HAYES BI [employer] RECONNAISSANCE SPECIALIST 09/05/2023 ADDENDUM STATUS: COMPLETED Please request c-scope return recommendations from Dr. Mcconnell's office. Last c- scope found 2013. Thanks /reginaldo/ DANIELE CHILDS NP NURSE PRACTITIONER Signed: 09/05/2023 10:48 Receipt Acknowledged By: 09/05/2023 15:43 /es/ MOISÉS HERZOG REGISTERED NURSE 09/07/2023 ADDENDUM STATUS: COMPLETED Good Afternoon, I am looking at Cardiology referral for [place]. Noted in [facility] portal that he last saw Dr. Barney in February 2023 and the f/u was to be with his primary grocery caddy, which [place] [facility] OK to [place] [facility] I called them and he is not currently scheduled, but they do have an opening on Monday, they will call [facility] and offer appt. /chavez GREEN RN STAFF NURSE Signed: 09/07/2023 12:59 Receipt Acknowledged By: 09/07/2023 13:04 /chavez CHILDS NP NURSE PRACTITIONER 09/07/2023 ADDENDUM STATUS: COMPLETED forgot to add for your review, copy and paste from [facility] w/ Dr. Barney 03/10/23 Assessment/Plan 1. S/P TAVR (transcatheter aortic valve replacement) I have reviewed his transthoracic echocardiogram. The bioprosthetic TAVR valve is functioning normally. Mean gradient is less than 8 mmHg. There is no significant central or perivalvular leak. Clinically he seems to be euvolemic. He was mildly tachycardic likely due to ongoing discomfort/pain in the left upper quadrant. 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 However I cannot confirm the correlation as he also had a fall 5 to 6 months before TAVR and has been having similar discomfort in the same area. Either way it is a good idea that he continues with Eliquis. He is also factor V Leyden (heterozygous) positive. Ordered: ECG 12 Lead 2. Hypertension His blood pressure is reasonably controlled. 3. Coronary artery disease He has nonobstructive CAD. No clinical signs of angina. We will continue same medications. I am optimistic that his left-sided abdominal and chest discomfort will continue to improve. We will continue same medical regimen. He will follow-up with his primary grocery caddy and primary care provider as scheduled. /chavez GREEN RN STAFF NURSE Signed: 09/07/2023 13:01 09/07/2023 ADDENDUM STATUS: COMPLETED Yes,please! Thank you. /chavez CHILDS NP NURSE PRACTITIONER Signed: 09/07/2023 13:05 Receipt Acknowledged By: 09/07/2023 14:30 /chavez GREEN RN STAFF NURSE 09/11/2023 ADDENDUM STATUS: UNSIGNED You may not VIEW this UNSIGNED Addendum. ADRIANA BA IN [facility] Sep 07, 2023 01:04 PM ADDENDUM: LOCAL TITLE: Addendum STANDARD TITLE: ADDENDUM DATE OF NOTE: SEP 07, 2023@13:04:47 ENTRY DATE: SEP 07, 2023@13:04:48 AUTHOR: DANIELE CHILDSIGNER: URGENCY: STATUS: COMPLETED Yes,please! Thank you. /reginaldo/ DANIELE CHILDS NP NURSE PRACTITIONER Signed: 09/07/2023 13:05 Receipt Acknowledged By: 09/07/2023 14:30 /es/ ALDAIR GREEN RN STAFF NURSE --- Original Document --- 09/05/23 NURSE PRACTITIONER OUTPATIENT NOTE: CC Presents today for left hip pain, ongoing HPI This is a 82 y/o male with history of Active problems - Computerized Problem List is the source for the followin. Long-term current use of anticoagulant 2. Communication authorization Gustavo Guzman Jr or Gustavo Guzman Sr. 3. Splenic infarction Chronic pain management with opioids 4. Abnormal imaging Exophytic lesion right kidney 5. Aortic valve stenosis ECHO 09/14/22 BLAISE 1.0cm2 EF 65% 6. Aneurysm of ascending aorta Borderline ascending aorta on ECHO 09/14/22 measuring 3.8cm 7. Osteopenia on Dexa 07/2022, rpt in 10 years 8. Sleep apnea following with [facility] Sleep Medicine, severe sleep apnea per note 08/11/22, rec for cpap Left GSV Venaseal 07/29/22 [facility] 9. Admits alcohol use 10. Epistaxis Seen by ENT [facility] 03/08/22 rec nml saline intranasally 5-6 x per day and water based lubricant ie KY jelly intranasally TID 11. Insomnia 12. Hyponatremia 13. Chronic obstructive lung disease 14. History of peripheral vascular disease atherectomy and plast of left popleteal artery 15. 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 16. Osteopenia 17. Degeneration of intervertebral disc 18. Depression (SNOMED CT 55787402) Reviewed Reviewed Reviewed 19. Impaired Fasting Glucose 20. Dry Eye Syndromes * 21. Late effect of fracture of skull and face bones Fracture, plate and hardware from tablesaw accident. 22. Hip Joint replacement Status (Prosthetic or Artificial Device) Right THR 03/27, Left THR 10/26 23. Arthritis/DJD 24. Prostate, Malign Neoplasm total prostatectomy 2005 25. Anisocoria * 26. Cataract, Cortical (Senile) 27. Open Angle Glaucoma Suspect 28. HYPERLIPIDEMIA 29. HYPERTENSION 30. POLYPS, COLON/LG BOWEL (BENIGN MAEGAN October, study fine, repeat 2018. 31. Headaches * 32. Tobacco use (SNOMED CT 903407107) Denies any recent fever, chills, cough, chest pain, sob, dizziness. No recent visits or hospitalizations Left hip pain--s/p hip replacement 16-17 years ago -no new injuries -pain is worse with standing, ambulation [facility] LISINOPRIL MEDICATIONS: Active and Recently Outpatient Medications (excluding Supplies): Active Outpatient Medications Status 1) AMLODIPINE [...] ONE TABLET BY ACTIVE MOUTH EVERY MORNING 7) FLUTICAS 500/SALMETEROL 50 INHL DISK 60 [...] MOUTH ACTIVE THREE TIMES A DAY 13) TIOTROPIUM 2.5MCG/ACTUAT 60D ORAL INHL INHALE 2 PUFFS ACTIVE BY MOUTH ONCE DAILY 14) TRAZODONE HCL 100MG TAB TAKE ONE TABLET BY MOUTH AT ACTIVE BEDTIME Inactive Outpatient Medications Status 1) OXYCODONE HCL 5MG TAB NOT SA TAKE ONE TABLET BY MOUTH TWICE DAILY NEEDED FOR PAIN (NEXT FILL 08/31/23) 15 Total Medications SOCIAL HISTORY Tobacco active smoker --10 cigs per day, not interested in quitting, has patches when ready Alcohol denies x 8 months Drugs denies Taking care of female partner who has been sick lately, managing stress ok, manging housechores etc ok, 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 need for 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 HEENT: denies vision problem, hearing loss, tinnitus, dysphagia, pharyngitis RESP chronic dysnea, unchanged CV denies CP, LL Edema GI denies abd pain, hematochezia denies hematuria, nocturia ENDO denies increased thirst, hunger or urination M/S Left hip pain chronic, worsening, abulates with cane, declines walker PE General: NAD HEENT PERRLA, EOMIs, B/L intact TMs,no lymphadenopathy, no lesions/exudate of posteriorpharynx, tongue midline without lesions RESP clear to auscultation bilaterally CV RR S1 S2 No LE edema GI BS + x 4, soft, nontender, nondistended, no rebound or guarding NEURO CN II-XII without focal deficit, gait steady without shuffle, MENTAL A&Ox3 Appropriate, Pleasant, Cooperative VITALS 98.1 F [36.7 C] (09/05/2023 10:02) 74 (09/05/2023 10:02) 16 (09/05/2023 10:02) 156/80 (09/05/2023 10:02) rpt manual 130/74 7 (09/05/2023 10:02) 63 in [160.0 cm] (03/06/2023 11:10) 143 lb [64.86 kg] (09/05/2023 10:02) BMI: 25.4 A/P ASSESSMENT AND PLAN: 1. Active smoker, COPD. -not using inahlers, encouraged to do so; states feeling lazy so hasn't been taking ,knows he should, will resume -reinforced recommendation to quit smoking, not interested but has patches if changes mind -no recent COPD flares 2. Aortic stenosis, s/p TAVR 01/19/23 --following with [facility] Cardiology; re- entered consult to Dr. Barney for f/u 3.Osteopenia last bone density was July 2022; on CA and VIt D. No fx. 4. DM on metformin his last hemoglobin A1c was 6.7, recommend Nutrition consult, he declines; following with optometry 5. Hypertension -on amlodipine, elevated on arrival, rpt manual bp at goal -reinforced diet--low sodium, eats a lot of [place] and [employer] 6. History of PVD s/p angioplastin LLE followed by vascular surgery Dr. Enzo Santos 7. Hypercholesterolemia on atorvastatin 20 mg -tolerating well -lipids well controlled 08/2023 8. Obstructive sleep apnea using CPAP machine and no issues were identified; using nightly and with naps. 9. Mild anemia on most recent labs, ordered for rpt cbc, iron studies and fit test. No abd pain, blood in stool,black stool. 10. H/o Jc's esophaugs, no recent EGD, on pantoprazole -consult to GI Vet requesting to transfer to [facility] due to distance. HTN Assess for Elevated BP>=140/90: Repeat blood pressure: 130/74 Medication Reconciliation: Outpatient: Has the patient been taking medications as documented in the EMLR? YES: The patient has been taking medications as documented in the EMLR. Essential Medication List for Review used to complete this medication reconciliation. INCLUDED IN THIS LIST: Alphabetical list of active outpatient prescriptions dispensed from this [place] (local) and dispensed from another [place] or [facility] facility (remote) as well as inpatient orders [...] whether with a VA or non-VA provider. Eye Care At-Risk Screen : Patient identified to be at risk for the following eye condition(s): DIABETIC RETINOPATHY: Diabetes Diagnosis Information: Encounter Diagnosis: 12/13/2022@15:00 Z79.84 (ICD-10-CM) joint terminal attack controller (current) use of oral hypoglycemic drugs rank: SECONDARY Prov. Narr. - FPC (current) use of oral hypoglycemic drugs MACULAR DEGENERATION: Macular Degeneration Risk Factors Information: Reminder Term: VA-AMD RISK FACTORS Encounter Diagnosis: 07/04/2023@11:00 F17.210 (ICD-10-CM) Nicotine Dependence, Cigarettes, Uncomplicated rank: SECONDARY Prov. Narr. - Nicotine Dependence, Cigarettes, Uncomplicated GLAUCOMA: Glaucoma Risk Factors Information: Encounter Diagnosis: 09/20/2010@08:00 365.01 (ICD-9-CM) Open angle with borderline glaucoma findings rank: PRIMARY Prov. Narr. - Open Angle Glaucoma Suspect Action: Referral Ordered: Tele-Eye Screening /reginaldo/ DANIELE CHILDS NP NURSE PRACTITIONER Signed: 09/05/2023 10:46 09/05/2023 ADDENDUM STATUS: COMPLETED Left hip pain-- s/p replacement 17 years ago -ambualting with cane, has walker, does not use -no recent falls -heck xray PT Vs ortho /reginaldo/ DANIELE CHILDS NP NURSE PRACTITIONER Signed: 09/05/2023 10:47 09/05/2023 ADDENDUM STATUS: COMPLETED Vet requesting trasnfer to [facility] due to distance. /reginaldo/ DANIELE CHILDS NP NURSE PRACTITIONER Signed: 09/05/2023 10:47 Receipt Acknowledged By: * AWAITING SIGNATURE * ADRIANA BA 09/06/2023 09:29 /es/ OLEKSANDR HAYES BI LE[employer] RECONNAISSANCE SPECIALIST 09/05/2023 ADDENDUM STATUS: COMPLETED Please request c-scope return recommendations from Dr. Mcconnell's office. Last c- scope found 2013. Thanks /reginaldo/ DANIELE CHILDS NP NURSE PRACTITIONER Signed: 09/05/2023 10:48 Receipt Acknowledged By: 09/05/2023 15:43 /es/ MOISÉS HERZOG REGISTERED NURSE 09/07/2023 ADDENDUM STATUS: COMPLETED Good Afternoon, I am looking at Cardiology referral for . Noted in [facility] portal that he last saw Dr. Barney in February 2023 and the f/u was to be with his primary grocery caddy, which is [place]ópez [place] [facility] OK to submit [place] [facility] I called them and he is not currently scheduled, but they do have an opening on Monday, [facility] /chavez GREEN RN STAFF NURSE Signed: 09/07/2023 12:59 Receipt Acknowledged By: 09/07/2023 13:04 /chavez CHILDS NP NURSE PRACTITIONER 09/07/2023 ADDENDUM STATUS: COMPLETED forgot to add for your review, copy and paste from [facility] OV w/ Dr. Barney 03/10/23 Assessment/Plan 1. S/P TAVR (transcatheter aortic valve replacement) I have reviewed his transthoracic echocardiogram. The bioprosthetic TAVR valve is functioning normally. Mean gradient is less than 8 mmHg. There is no significant central or perivalvular leak. Clinically he seems to be euvolemic. He was mildly tachycardic likely due to ongoing discomfort/pain in the left upper quadrant. 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 However I cannot confirm the correlation as he also had a fall 5 to 6 months before TAVR and has been having similar discomfort in the same area. Either way it is a good idea that he continues with Eliquis. He is also factor V Leyden (heterozygous) positive. Ordered: ECG 12 Lead 2. Hypertension His blood pressure is reasonably controlled. 3. Coronary artery disease He has nonobstructive CAD. No clinical signs of angina. We will continue same medications. I am optimistic that his left-sided abdominal and chest discomfort will continue to improve. We will continue same medical regimen. He will follow-up with his primary grocery caddy and primary care provider as scheduled. /chavez GREEN RN STAFF NURSE Signed: 09/07/2023 13:01 DANIELE CHILDS IN [facility] [place] [facility] Sep 07, 2023 12:51 PM ADDENDUM: LOCAL TITLE: Addendum STANDARD TITLE: ADDENDUM DATE OF NOTE: SEP 07, 2023@12:51:40 ENTRY DATE: SEP 07, 2023@12:51:40 AUTHOR: ALDAIR GREEN EXP COSIGNER: URGENCY: STATUS: COMPLETED Good Afternoon, I am looking at Cardiology referral for . Noted in [facility] portal that he last saw Dr. Barney in February 2023 and the f/u was to be with his primary grocery caddy, which is Dr. López [place] [facility] OK to submit [place] [facility] I called them and he is not currently scheduled, but they do have an opening on Monday, they will call [facility] and offer appt. /es/ ALDAIR GREEN RN STAFF NURSE Signed: 09/07/2023 12:59 Receipt Acknowledged By: 09/07/2023 13:04 /reginaldo/ DNAIELE CHILDS NP NURSE PRACTITIONER --- Original Document --- 09/05/23 NURSE PRACTITIONER OUTPATIENT NOTE: CC Presents today for left hip pain, ongoing HPI This is a 82 y/o male with history of Active problems - Computerized Problem List is the source for the followin. Long-term current use of anticoagulant 2. Communication authorization Gustavo Guzman Jr or Gustavo Guzman Sr. 3. Splenic infarction Chronic pain management with opioids 4. Abnormal imaging Exophytic lesion right kidney 5. Aortic valve stenosis ECHO 09/14/22 BLAISE 1.0cm2 EF 65% 6. Aneurysm of ascending aorta Borderline ascending aorta on ECHO 09/14/22 measuring 3.8cm 7. Osteopenia on Dexa 07/2022, rpt in 10 years 8. Sleep apnea following with [facility] Sleep Medicine, severe sleep apnea per note 08/11/22, rec for cpap Left GSV Venaseal 07/29/22 [facility] 9. Admits alcohol use 10. Epistaxis Seen by ENT [facility] 03/08/22 rec nml saline intranasally 5-6 x per day and water based lubricant ie KY jelly intranasally TID 11. Insomnia 12. Hyponatremia 13. Chronic obstructive lung disease 14. History of peripheral vascular disease atherectomy and plast of left popleteal artery 15. 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 16. Osteopenia 17. Degeneration of intervertebral disc 18. Depression (SNOMED CT [id number]) Reviewed Reviewed Reviewed 19. Impaired Fasting Glucose 20. Dry Eye Syndromes * 21. Late effect of fracture of skull and face bones Fracture, plate and hardware from tablesaw accident. 22. Hip Joint replacement Status (Prosthetic or Artificial Device) Right THR 03/27, Left THR 10/26 23. Arthritis/DJD 24. Prostate, Malign Neoplasm total prostatectomy 2005 25. Anisocoria * 26. Cataract, Cortical (Senile) 27. Open Angle Glaucoma Suspect 28. HYPERLIPIDEMIA 29. HYPERTENSION 30. POLYPS, COLON/LG BOWEL (BENIGN MAEGAN October, study fine, repeat 2019. 31. Headaches * 32. Tobacco use (SNOMED CT 372103568) Denies any recent fever, chills, cough, chest pain, sob, dizziness. No recent visits or hospitalizations Left hip pain--s/p hip replacement 16-17 years ago -no new injuries -pain is worse with standing, ambulation [facility] [place] [facility] [place] [facility] LISINOPRIL MEDICATIONS: Active and Recently Outpatient Medications (excluding Supplies): Active Outpatient Medications Status 1) AMLODIPINE [...] ONE TABLET BY ACTIVE MOUTH EVERY MORNING 7) FLUTICAS 500/SALMETEROL 50 INHL DISK 60 [...] MOUTH ACTIVE THREE TIMES A DAY 13) TIOTROPIUM 2.5MCG/ACTUAT 60D ORAL INHL INHALE 2 PUFFS ACTIVE BY MOUTH ONCE DAILY 14) TRAZODONE HCL 100MG TAB TAKE ONE TABLET BY MOUTH AT ACTIVE BEDTIME Inactive Outpatient Medications Status 1) OXYCODONE HCL 5MG TAB NOT SA TAKE ONE TABLET BY MOUTH TWICE DAILY NEEDED FOR PAIN (NEXT FILL 08/31/23) 15 Total Medications SOCIAL HISTORY Tobacco active smoker --10 cigs per day, not interested in quitting, has patches when ready Alcohol denies x 8 months Drugs denies Taking care of female partner who has been sick lately, managing stress ok, manging housechores etc ok, denies need for 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 HEENT: denies vision problem, hearing loss, tinnitus, dysphagia, pharyngitis RESP chronic dysnea, unchanged CV denies CP, LL Edema GI denies abd pain, hematochezia denies hematuria, nocturia ENDO denies increased thirst, hunger or urination M/S Left hip pain chronic, worsening, abulates with cane, declines walker PE General: NAD HEENT PERRLA, EOMIs, B/L intact TMs,no lymphadenopathy, no lesions/exudate of posteriorpharynx, tongue midline without lesions RESP clear to auscultation bilaterally CV RR S1 S2 No LE edema GI BS + x 4, soft, nontender, nondistended, no rebound or guarding NEURO CN II-XII without focal deficit, gait steady without shuffle, MENTAL A&Ox3 Appropriate, Pleasant, Cooperative VITALS 98.1 F [36.7 C] (09/05/2023 10:02) 74 (09/05/2023 10:02) 16 (09/05/2023 10:02) 156/80 (09/05/2023 10:02) rpt manual 130/74 7 (09/05/2023 10:02) 63 in [160.0 cm] (03/06/2023 11:10) 143 lb [64.86 kg] (09/05/2023 10:02) BMI: 25.4 A/P ASSESSMENT AND PLAN: 1. Active smoker, COPD. -not using inahlers, encouraged to do so; states feeling lazy so hasn't been taking ,knows he should, will resume -reinforced recommendation to quit smoking, not interested but has patches if changes mind -no recent COPD flares 2. Aortic stenosis, s/p TAVR 01/19/23 --following with [facility]iology; re- entered consult to Dr. Barney for f/u 3.Osteopenia last bone density was July 2022; on CA and VIt D. No fx. 4. DM on metformin his last hemoglobin A1c was 6.7, recommend Nutrition consult, he declines; following with optometry 5. Hypertension -on amlodipine, elevated on arrival, rpt manual bp at goal -reinforced diet--low sodium, eats a lot of [place] and [employer] 6. History of PVD s/p angioplastin LLE followed by vascular surgery Dr. Enzo Santos 7. Hypercholesterolemia on atorvastatin 20 mg -tolerating well -lipids well controlled 08/2023 8. Obstructive sleep apnea using CPAP machine and no issues were identified; using nightly and with naps. 9. Mild anemia on most recent labs, ordered for rpt cbc, iron studies and fit test. No abd pain, blood in stool,black stool. 10. H/o Jc's esophaugs, no recent EGD, on pantoprazole -consult to GI Vet requesting to transfer to [facility] due to distance. HTN Assess for Elevated BP>=140/90: Repeat blood pressure: 130/74 Medication Reconciliation: Outpatient: Has the patient been taking medications as documented in the EMLR? YES: The patient has been taking medications as documented in the EMLR. Essential Medication List for Review used to complete this medication reconciliation. INCLUDED IN THIS LIST: Alphabetical list of active outpatient prescriptions dispensed from this [place] (local) and dispensed from another [place] or [facility] facility (remote) as well as inpatient orders [...] whether with a VA or non-VA provider. Eye Care At-Risk Screen : Patient identified to be at risk for the following eye condition(s): DIABETIC RETINOPATHY: Diabetes Diagnosis Information: Encounter Diagnosis: 12/13/2022@15:00 Z79.84 (ICD-10-CM) FPC (current) use of oral hypoglycemic drugs rank: SECONDARY Prov. Narr. - joint terminal attack controller (current) use of oral hypoglycemic drugs MACULAR DEGENERATION: Macular Degeneration Risk Factors Information: Reminder Term: VA-AMD RISK FACTORS Encounter Diagnosis: 07/04/2023@11:00 F17.210 (ICD-10-CM) Nicotine Dependence, Cigarettes, Uncomplicated rank: SECONDARY Prov. Narr. - Nicotine Dependence, Cigarettes, Uncomplicated GLAUCOMA: Glaucoma Risk Factors Information: Encounter Diagnosis: 09/20/2010@08:00 365.01 (ICD-9-CM) Open angle with borderline glaucoma findings rank: PRIMARY Prov. Narr. - Open Angle Glaucoma Suspect Action: Referral Ordered: Tele-Eye Screening /reginaldo/ DANIELE CHILDS NP NURSE PRACTITIONER Signed: 09/05/2023 10:46 09/05/2023 ADDENDUM STATUS: COMPLETED Left hip pain-- s/p replacement 17 years ago -ambualting with cane, has walker, does not use -no recent falls -heck xray PT Vs ortho /chavez CHILDS NP NURSE PRACTITIONER Signed: 09/05/2023 10:47 09/05/2023 ADDENDUM STATUS: COMPLETED Vet requesting trasnfer to [facility] due to distance. /chavez CHILDS NP NURSE PRACTITIONER Signed: 09/05/2023 10:47 Receipt Acknowledged By: * AWAITING SIGNATURE * ADRIANA BA 09/06/2023 09:29 /es/ OLEKSANDR HAYES BI [employer] RECONNAISSANCE SPECIALIST 09/05/2023 ADDENDUM STATUS: COMPLETED Please request c-scope return recommendations from Dr. Mcconnell's office. Last c- scope found 2013. Thanks /reginaldo/ DANIELE CHILDS NP NURSE PRACTITIONER Signed: 09/05/2023 10:48 Receipt Acknowledged By: 09/05/2023 15:43 /es/ MOISÉS HERZOG REGISTERED NURSE 09/07/2023 ADDENDUM STATUS: COMPLETED forgot to add for your review, copy and paste from [facility] ELOISE rosenbaum/ Dr. Barney 03/10/23 Assessment/Plan 1. S/P TAVR (transcatheter aortic valve replacement) I have reviewed his transthoracic echocardiogram. The bioprosthetic TAVR valve is functioning normally. Mean gradient is less than 8 mmHg. There is no significant central or perivalvular leak. Clinically he seems to be euvolemic. He was mildly tachycardic likely due to ongoing discomfort/pain in the left upper quadrant. 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 However I cannot confirm the correlation as he also had a fall 5 to 6 months before TAVR and has been having similar discomfort in the same area. Either way it is a good idea that he continues with Eliquis. He is also factor V Leyden (heterozygous) positive. Ordered: ECG 12 Lead 2. Hypertension His blood pressure is reasonably controlled. 3. Coronary artery disease He has nonobstructive CAD. No clinical signs of angina. We will continue same medications. I am optimistic that his left-sided abdominal and chest discomfort will continue to improve. We will continue same medical regimen. He will follow-up with his primary grocery caddy and primary care provider as scheduled. /reginaldo/ ALDAIR GREEN RN STAFF NURSE Signed: 09/07/2023 13:09/07/2023 ADDENDUM STATUS: COMPLETED Yes,please! Thank you. /chavez CHILDS NP NURSE PRACTITIONER Signed: 09/07/2023 13:05 ALDAIR RGEEN [facility] [place] [facility] Sep 05, 2023 10:47 AM ADDENDUM: LOCAL TITLE: Addendum STANDARD TITLE: ADDENDUM DATE OF NOTE: SEP 05, 2023@10:47:43 ENTRY DATE: SEP 05, 2023@10:47:44 AUTHOR: DANIELE CHILDS COSIGNER: URGENCY: STATUS: COMPLETED Please request c-scope return recommendations from Dr. Mcconnell's office. Last c- scope found 2013. Thanks /chavez CHILDS NP NURSE PRACTITIONER Signed: 09/05/2023 10:48 Receipt Acknowledged By: 09/05/2023 15:43 /reginaldo/ MOISÉS HERZOG REGISTERED NURSE --- Original Document --- 09/05/23 NURSE PRACTITIONER OUTPATIENT NOTE: CC Presents today for left hip pain, ongoing HPI This is a 82 y/o male with history of Active problems - Computerized Problem List is the source for the followin. Long-term current use of anticoagulant 2. Communication authorization Gustavo Guzman Jr or Gustavo Guzman Sr. 3. Splenic infarction Chronic pain management with opioids 4. Abnormal imaging Exophytic lesion right kidney 5. Aortic valve stenosis ECHO 09/14/22 BLAISE 1.0cm2 EF 65% 6. Aneurysm of ascending aorta Borderline ascending aorta on ECHO 09/14/22 measuring 3.8cm 7. Osteopenia on Dexa 07/2022, rpt in 10 years 8. Sleep apnea following with [facility] Sleep Medicine, severe sleep apnea per note 08/11/22, rec for cpap Left GSV Venaseal 07/29/22 [facility] 9. Admits alcohol use 10. Epistaxis Seen by ENT [facility] 03/08/22 rec nml saline intranasally 5-6 x per day and water based lubricant ie KY jelly intranasally TID 11. Insomnia 12. Hyponatremia 13. Chronic obstructive lung disease 14. History of peripheral vascular disease atherectomy and plast of left popleteal artery 15. 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 16. Osteopenia 17. Degeneration of intervertebral disc 18. Depression (SNOMED CT 57799438) Reviewed Reviewed Reviewed 19. Impaired Fasting Glucose 20. Dry Eye Syndromes * 21. Late effect of fracture of skull and face bones Fracture, plate and hardware from tablesaw accident. 22. Hip Joint replacement Status (Prosthetic or Artificial Device) Right THR 03/27, Left THR 10/26 23. Arthritis/DJD 24. Prostate, Malign Neoplasm total prostatectomy 2005 25. Anisocoria * 26. Cataract, Cortical (Senile) 27. Open Angle Glaucoma Suspect 28. HYPERLIPIDEMIA 29. HYPERTENSION 30. POLYPS, COLON/LG BOWEL (BENIGN MAEGAN October, study fine, repeat 2019. 31. Headaches * 32. Tobacco use (SNOMED CT 030978614) Denies any recent fever, chills, cough, chest pain, sob, dizziness. No recent UC visits or hospitalizations Left hip pain--s/p hip replacement 16-17 years ago -no new injuries -pain is worse with standing, ambulation [facility] GEMFIBROZIL [facility] LISINOPRIL MEDICATIONS: Active and Recently Outpatient Medications (excluding Supplies): Active Outpatient Medications Status 1) AMLODIPINE [...] ONE TABLET BY ACTIVE MOUTH EVERY MORNING 7) FLUTICAS 500/SALMETEROL 50 INHL DISK 60 [...] MOUTH ACTIVE THREE TIMES A DAY 13) TIOTROPIUM 2.5MCG/ACTUAT 60D ORAL INHL INHALE 2 PUFFS ACTIVE BY MOUTH ONCE DAILY 14) TRAZODONE HCL 100MG TAB TAKE ONE TABLET BY MOUTH AT ACTIVE BEDTIME Inactive Outpatient Medications Status 1) OXYCODONE HCL 5MG TAB NOT SA TAKE ONE TABLET BY MOUTH TWICE DAILY NEEDED FOR PAIN (NEXT FILL 08/31/23) 15 Total Medications SOCIAL HISTORY Tobacco active smoker --10 cigs per day, not interested in quitting, has patches when ready Alcohol denies x 8 months Drugs denies Taking care of female partner who has been sick lately, managing stress ok, manging housechores etc ok, denies need for 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 HEENT: denies vision problem, hearing loss, tinnitus, dysphagia, pharyngitis RESP chronic dysnea, unchanged CV denies CP, LL Edema GI denies abd pain, hematochezia denies hematuria, nocturia ENDO denies increased thirst, hunger or urination M/S Left hip pain chronic, worsening, abulates with cane, declines walker PE General: NAD HEENT PERRLA, EOMIs, B/L intact TMs,no lymphadenopathy, no lesions/exudate of posteriorpharynx, tongue midline without lesions RESP clear to auscultation bilaterally CV RR S1 S2 No LE edema GI BS + x 4, soft, nontender, nondistended, no rebound or guarding NEURO CN II-XII without focal deficit, gait steady without shuffle, MENTAL A&Ox3 Appropriate, Pleasant, Cooperative VITALS 98.1 F [36.7 C] (09/05/2023 10:02) 74 (09/05/2023 10:02) 16 (09/05/2023 10:02) 156/80 (09/05/2023 10:02) rpt manual 130/74 7 (09/05/2023 10:02) 63 in [160.0 cm] (03/06/2023 11:10) 143 lb [64.86 kg] (09/05/2023 10:02) BMI: 25.4 A/P ASSESSMENT AND PLAN: 1. Active smoker, COPD. -not using inahlers, encouraged to do so; states feeling lazy so hasn't been taking ,knows he should, will resume -reinforced recommendation to quit smoking, not interested but has patches if changes mind -no recent COPD flares 2. Aortic stenosis, s/p TAVR 01/19/23 --following with [facility] Cardiology; re- entered consult to Dr. Barney for f/u 3.Osteopenia last bone density was July 2022; on CA and VIt D. No fx. 4. DM on metformin his last hemoglobin A1c was 6.7, recommend Nutrition consult, he declines; following with optometry 5. Hypertension -on amlodipine, elevated on arrival, rpt manual bp at goal -reinforced diet--low sodium, eats a lot of [place] and [employer] 6. History of PVD s/p angioplastin LLE followed by vascular surgery Dr. Enzo Santos 7. Hypercholesterolemia on atorvastatin 20 mg -tolerating well -lipids well controlled 08/2023 8. Obstructive sleep apnea using CPAP machine and no issues were identified; using nightly and with naps. 9. Mild anemia on most recent labs, ordered for rpt cbc, iron studies and fit test. No abd pain, blood in stool,black stool. 10. H/o Jc's esophaugs, no recent EGD, on pantoprazole -consult to GI Vet requesting to transfer to [facility] due to distance. HTN Assess for Elevated BP>=140/90: Repeat blood pressure: 130/74 Medication Reconciliation: Outpatient: Has the patient been taking medications as documented in the EMLR? YES: The patient has been taking medications as documented in the EMLR. Essential Medication List for Review used to complete this medication reconciliation. INCLUDED IN THIS LIST: Alphabetical list of active outpatient prescriptions dispensed from this [place] (local) and dispensed from another [place] or [facility] facility (remote) as well as [...] whether with a VA or non-VA provider. Eye Care At-Risk Screen : Patient identified to be at risk for the following eye condition(s): DIABETIC RETINOPATHY: Diabetes Diagnosis Information: Encounter Diagnosis: 12/13/2022@15:00 Z79.84 (ICD-10-CM) joint terminal attack controller (current) use of oral hypoglycemic drugs rank: SECONDARY Prov. Narr. - joint terminal attack controller (current) use of oral hypoglycemic drugs MACULAR DEGENERATION: Macular Degeneration Risk Factors Information: Reminder Term: VA-AMD RISK FACTORS Encounter Diagnosis: 07/04/2023@11:00 F17.210 (ICD-10-CM) Nicotine Dependence, Cigarettes, Uncomplicated rank: SECONDARY Prov. Narr. - Nicotine Dependence, Cigarettes, Uncomplicated GLAUCOMA: Glaucoma Risk Factors Information: Encounter Diagnosis: 09/20/2010@08:00 365.01 (ICD-9-CM) Open angle with borderline glaucoma findings rank: PRIMARY Prov. Narr. - Open Angle Glaucoma Suspect Action: Referral Ordered: Tele-Eye Screening /reginaldo/ DANIELE CHILDS NP NURSE PRACTITIONER Signed: 09/05/2023 10:46 09/05/2023 ADDENDUM STATUS: COMPLETED Left hip pain-- s/p replacement 17 years ago -ambualting with cane, has walker, does not use -no recent falls -heck xray PT Vs ortho /chavez CHILDS NP NURSE PRACTITIONER Signed: 09/05/2023 10:47 09/05/2023 ADDENDUM STATUS: COMPLETED Vet requesting trasnfer to [facility] due to distance. /chavez CHILDS NP NURSE PRACTITIONER Signed: 09/05/2023 10:47 Receipt Acknowledged By: * AWAITING SIGNATURE * ADRIANA BA * AWAITING SIGNATURE * OLEKSANDR HAYES RAIMONDA KATHRYN [facility] [place] [facility] Sep 05, 2023 10:47 AM ADDENDUM: LOCAL TITLE: Addendum STANDARD TITLE: ADDENDUM DATE OF NOTE: SEP 05, 2023@10:47:05 ENTRY DATE: SEP 05, 2023@10:47:06 AUTHOR: DANIELE CHILDS COSIGNER: URGENCY: STATUS: COMPLETED Vet requesting trasnfer to [facility] due to distance. /reginaldo/ DANIELE CHILDS NP NURSE PRACTITIONER Signed: 09/05/2023 10:47 Receipt Acknowledged By: 09/11/2023 12:11 /reginaldo/ ADRIANA BA NP NURSE PRACTITIONER 09/06/2023 09:29 /chavez HAYES BI [employer] RECONNAISSANCE SPECIALIST --- Original Document --- 09/05/23 NURSE PRACTITIONER OUTPATIENT NOTE: CC Presents today for left hip pain, ongoing HPI This is a 82 y/o male with history of Active problems - Computerized Problem List is the source for the followin. Long-term current use of anticoagulant 2. Communication authorization Gustavo Guzman Jr or Gustavo Guzman Sr. 3. Splenic infarction Chronic pain management with opioids 4. Abnormal imaging Exophytic lesion right kidney 5. Aortic valve stenosis ECHO 09/14/22 BLAISE 1.0cm2 EF 65% 6. Aneurysm of ascending aorta Borderline ascending aorta on ECHO 09/14/22 measuring 3.8cm 7. Osteopenia on Dexa 07/2022, rpt in 10 years 8. Sleep apnea following with [facility], severe sleep apnea per note 08/11/22, rec for cpap Left GSV Venaseal 07/29/22 [facility] 9. Admits alcohol use 10. Epistaxis Seen by ENT [facility] 03/08/22 rec nml saline intranasally 5-6 x per day and water based lubricant ie KY jelly intranasally TID 11. Insomnia 12. Hyponatremia 13. Chronic obstructive lung disease 14. History of peripheral vascular disease atherectomy and plast of left popleteal artery 15. 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 16. Osteopenia 17. Degeneration of intervertebral disc 18. Depression (SNOMED CT [id number]) Reviewed Reviewed Reviewed 19. Impaired Fasting Glucose 20. Dry Eye Syndromes * 21. Late effect of fracture of skull and face bones Fracture, plate and hardware from tablesaw accident. 22. Hip Joint replacement Status (Prosthetic or Artificial Device) Right THR 03/27, Left THR 10/26 23. Arthritis/DJD 24. Prostate, Malign Neoplasm total prostatectomy 2005 25. Anisocoria * 26. Cataract, Cortical (Senile) 27. Open Angle Glaucoma Suspect 28. HYPERLIPIDEMIA 29. HYPERTENSION 30. POLYPS, COLON/LG BOWEL (BENIGN MAEGAN October, study fine, repeat 2019. 31. Headaches * 32. Tobacco use (SNOMED CT [id number]) Denies any recent fever, chills, cough, chest pain, sob, dizziness. No recent UC visits or hospitalizations Left hip pain--s/p hip replacement 16-17 years ago -no new injuries -pain is worse with standing, ambulation [facility] GEMFIBROZIL [facility] LISINOPRIL MEDICATIONS: Active and Recently Outpatient Medications (excluding Supplies): Active Outpatient Medications Status 1) AMLODIPINE [...] ONE TABLET BY ACTIVE MOUTH EVERY MORNING 7) FLUTICAS 500/SALMETEROL 50 INHL DISK 60 [...] MOUTH ACTIVE THREE TIMES A DAY 13) TIOTROPIUM 2.5MCG/ACTUAT 60D ORAL INHL INHALE 2 PUFFS ACTIVE BY MOUTH ONCE DAILY 14) TRAZODONE HCL 100MG TAB TAKE ONE TABLET BY MOUTH AT ACTIVE BEDTIME Inactive Outpatient Medications Status 1) OXYCODONE HCL 5MG TAB NOT SA TAKE ONE TABLET BY MOUTH TWICE DAILY NEEDED FOR PAIN (NEXT FILL 08/31/23) 15 Total Medications SOCIAL HISTORY Tobacco active smoker --10 cigs per day, not interested in quitting, has patches when ready Alcohol denies x 8 months Drugs denies Taking care of female partner who has been sick lately, managing stress ok, manging housechores etc ok, denies need for 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 HEENT: denies vision problem, hearing loss, tinnitus, dysphagia, pharyngitis RESP chronic dysnea, unchanged CV denies CP, LL Edema GI denies abd pain, hematochezia denies hematuria, nocturia ENDO denies increased thirst, hunger or urination M/S Left hip pain chronic, worsening, abulates with cane, declines walker PE General: NAD HEENT PERRLA, EOMIs, B/L intact TMs,no lymphadenopathy, no lesions/exudate of posteriorpharynx, tongue midline without lesions RESP clear to auscultation bilaterally CV RR S1 S2 No LE edema GI BS + x 4, soft, nontender, nondistended, no rebound or guarding NEURO CN II-XII without focal deficit, gait steady without shuffle, MENTAL A&Ox3 Appropriate, Pleasant, Cooperative VITALS 98.1 F [36.7 C] (09/05/2023 10:02) 74 (09/05/2023 10:02) 16 (09/05/2023 10:02) 156/80 (09/05/2023 10:02) rpt manual 130/74 7 (09/05/2023 10:02) 63 in [160.0 cm] (03/06/2023 11:10) 143 lb [64.86 kg] (09/05/2023 10:02) BMI: 25.4 A/P ASSESSMENT AND PLAN: 1. Active smoker, COPD. -not using inahlers, encouraged to do so; states feeling lazy so hasn't been taking ,knows he should, will resume -reinforced recommendation to quit smoking, not interested but has patches if changes mind -no recent COPD flares 2. Aortic stenosis, s/p TAVR 01/19/23 --following with [facility]; re- entered consult to Dr. Barney for f/u 3.Osteopenia last bone density was July 2022; on CA and VIt D. No fx. 4. DM on metformin his last hemoglobin A1c was 6.7, recommend Nutrition consult, he declines; following with optometry 5. Hypertension -on amlodipine, elevated on arrival, rpt manual bp at goal -reinforced diet--low sodium, eats a lot of [place] and [employer] 6. History of PVD s/p angioplastin LLE followed by vascular surgery Dr. Enzo Santos 7. Hypercholesterolemia on atorvastatin 20 mg -tolerating well -lipids well controlled 08/2023 8. Obstructive sleep apnea using CPAP machine and no issues were identified; using nightly and with naps. 9. Mild anemia on most recent labs, ordered for rpt cbc, iron studies and fit test. No abd pain, blood in stool,black stool. 10. H/o Jc's esophaugs, no recent EGD, on pantoprazole -consult to GI Vet requesting to transfer to [facility] due to distance. HTN Assess for Elevated BP>=140/90: Repeat blood pressure: 130/74 Medication Reconciliation: Outpatient: Has the patient been taking medications as documented in the EMLR? YES: The patient has been taking medications as documented in the EMLR. Essential Medication List for Review used to complete this medication reconciliation. INCLUDED IN THIS LIST: Alphabetical list of active outpatient prescriptions dispensed from this [facility] (local) and dispensed from another [place] or [facility] facility (remote) as well as inpatient orders [...] whether with a VA or non-VA provider. Eye Care At-Risk Screen : Patient identified to be at risk for the following eye condition(s): DIABETIC RETINOPATHY: Diabetes Diagnosis Information: Encounter Diagnosis: 12/13/2022@15:00 Z79.84 (ICD-10-CM) FPC (current) use of oral hypoglycemic drugs rank: SECONDARY Prov. Narr. - joint terminal attack controller (current) use of oral hypoglycemic drugs MACULAR DEGENERATION: Macular Degeneration Risk Factors Information: Reminder Term: VA-AMD RISK FACTORS Encounter Diagnosis: 07/04/2023@11:00 F17.210 (ICD-10-CM) Nicotine Dependence, Cigarettes, Uncomplicated rank: SECONDARY Prov. Narr. - Nicotine Dependence, Cigarettes, Uncomplicated GLAUCOMA: Glaucoma Risk Factors Information: Encounter Diagnosis: 09/20/2010@08:00 365.01 (ICD-9-CM) Open angle with borderline glaucoma findings rank: PRIMARY Prov. Narr. - Open Angle Glaucoma Suspect Action: Referral Ordered: Tele-Eye Screening /reginaldo/ DANIELE CHILDS NP NURSE PRACTITIONER Signed: 09/05/2023 10:46 09/05/2023 ADDENDUM STATUS: COMPLETED Left hip pain-- s/p replacement 17 years ago -ambualting with cane, has walker, does not use -no recent falls -heck xray PT Vs ortho /chavez CHILDS NP NURSE PRACTITIONER Signed: 09/05/2023 10:47 09/05/2023 ADDENDUM STATUS: COMPLETED Please request c-scope return recommendations from Dr. Mcconnell's office. Last c- scope found 2013. Thanks /reginaldo/ DANIELE CHILDS NP NURSE PRACTITIONER Signed: 09/05/2023 10:48 Receipt Acknowledged By: 09/05/2023 15:43 /reginaldo/ MOISÉS HERZOG REGISTERED NURSE 09/07/2023 ADDENDUM STATUS: COMPLETED Good Afternoon, I am looking at [facility] referral for [place]. Noted in [facility] portal that he last saw Dr. Barney in February 2023 and the f/u was to be with his primary grocery caddy, [place] [facility] [facility] I called them and he is not currently scheduled, but they do have an opening on Monday, they will call [facility] [place] and offer appt. /chavez GREEN RN STAFF NURSE Signed: 09/07/2023 12:59 Receipt Acknowledged By: 09/07/2023 13:04 /chavez CHILDS NP NURSE PRACTITIONER 09/07/2023 ADDENDUM STATUS: COMPLETED forgot to add for your review, copy and paste from [facility] OV w/ Dr. Barney 03/10/23 Assessment/Plan 1. S/P TAVR (transcatheter aortic valve replacement) I have reviewed his transthoracic echocardiogram. The bioprosthetic TAVR valve is functioning normally. Mean gradient is less than 8 mmHg. There is no significant central or perivalvular leak. Clinically he seems to be euvolemic. He was mildly tachycardic likely due to ongoing discomfort/pain in the left upper quadrant. 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 However I cannot confirm the correlation as he also had a fall 5 to 6 months before TAVR and has been having similar discomfort in the same area. Either way it is a good idea that he continues with Eliquis. He is also factor V Leyden (heterozygous) positive. Ordered: ECG 12 Lead 2. Hypertension His blood pressure is reasonably controlled. 3. Coronary artery disease He has nonobstructive CAD. No clinical signs of angina. We will continue same medications. I am optimistic that his left-sided abdominal and chest discomfort will continue to improve. We will continue same medical regimen. He will follow-up with his primary grocery caddy and primary care provider as scheduled. /chavez GREEN RN STAFF NURSE Signed: 09/07/2023 13:01 09/07/2023 ADDENDUM STATUS: COMPLETED Yes,please! Thank you. /chavez CHILDS NP NURSE PRACTITIONER Signed: 09/07/2023 13:05 Receipt Acknowledged By: 09/07/2023 14:30 /es/ ALDAIR GREEN, DIRECTOR OF STUDENT SERVICES NURSE DANIELE CHILDS [facility] Sep 05, 2023 10:07 AM PRIMARY CARE NURSE PRACTITIONER OUTPATIENT NOTE: LOCAL TITLE: NURSE PRACTITIONER OUTPATIENT NOTE STANDARD TITLE: PRIMARY CARE NURSE PRACTITIONER OUTPATIENT NOTE DATE OF NOTE: SEP 05, 2023@10:07 ENTRY DATE: SEP 05, 2023@10:07:25 AUTHOR: DANIELE CHILDS COSIGNER: URGENCY: STATUS: COMPLETED NURSE PRACTITIONER OUTPATIENT NOTE Has ADDENDA CC Presents today for left hip pain, ongoing HPI This is a 82 y/o male with history of Active problems - Computerized Problem List is the source for the followin. Long-term current use of anticoagulant 2. Communication authorization Gustavo Guzman Jr or Gustavo Guzman Sr. 3. Splenic infarction Chronic pain management with opioids 4. Abnormal imaging Exophytic lesion right kidney 5. Aortic valve stenosis ECHO 09/14/22 BLAISE 1.0cm2 EF 65% 6. Aneurysm of ascending aorta Borderline ascending aorta on ECHO 09/14/22 measuring 3.8cm 7. Osteopenia on Dexa 07/2022, rpt in 10 years 8. Sleep apnea following with [facility] Medicine, severe sleep apnea per note 08/11/22, rec for cpap Left GSV Venaseal 07/29/22 [facility] 9. Admits alcohol use 10. Epistaxis Seen by ENT [facility] 03/08/22 rec nml saline intranasally 5-6 x per day and water based lubricant ie KY jelly intranasally TID 11. Insomnia 12. Hyponatremia 13. Chronic obstructive lung disease 14. History of peripheral vascular disease atherectomy and plast of left popleteal artery 15. 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 16. Osteopenia 17. Degeneration of intervertebral disc 18. Depression (SNOMED CT [id number]) Reviewed Reviewed Reviewed 19. Impaired Fasting Glucose 20. Dry Eye Syndromes * 21. Late effect of fracture of skull and face bones Fracture, plate and hardware from tablesaw accident. 22. Hip Joint replacement Status (Prosthetic or Artificial Device) Right THR 03/27, Left THR 10/26 23. Arthritis/DJD 24. Prostate, Malign Neoplasm total prostatectomy 2005 25. Anisocoria * 26. Cataract, Cortical (Senile) 27. Open Angle Glaucoma Suspect 28. HYPERLIPIDEMIA 29. HYPERTENSION 30. POLYPS, COLON/LG BOWEL (BENIGN MAEGAN October, study fine, repeat 2019. 31. Headaches * 32. Tobacco use (SNOMED CT [id number]) Denies any recent fever, chills, cough, chest pain, sob, dizziness. No recent UC visits or hospitalizations Left hip pain--s/p hip replacement 16-17 years ago -no new injuries -pain is worse with standing, ambulation [facility]ERG[facility] GEMFIBROZIL [facility] LISINOPRIL MEDICATIONS: Active and Recently Outpatient Medications (excluding Supplies): Active Outpatient Medications Status 1) AMLODIPINE [...] ONE TABLET BY ACTIVE MOUTH EVERY MORNING 7) FLUTICAS 500/SALMETEROL 50 INHL DISK 60 [...] MOUTH ACTIVE THREE TIMES A DAY 13) TIOTROPIUM 2.5MCG/ACTUAT 60D ORAL INHL INHALE 2 PUFFS ACTIVE BY MOUTH ONCE DAILY 14) TRAZODONE HCL 100MG TAB TAKE ONE TABLET BY MOUTH AT ACTIVE BEDTIME Inactive Outpatient Medications Status 1) OXYCODONE HCL 5MG TAB NOT SA TAKE ONE TABLET BY MOUTH TWICE DAILY NEEDED FOR PAIN (NEXT FILL 08/31/23) 15 Total Medications SOCIAL HISTORY Tobacco active smoker --10 cigs per day, not interested in quitting, has patches when ready Alcohol denies x 8 months Drugs denies Taking care of female partner who has been sick lately, managing stress ok, manging housechores etc ok, denies need for 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 HEENT: denies vision problem, hearing loss, tinnitus, dysphagia, pharyngitis RESP chronic dysnea, unchanged CV denies CP, LL Edema GI denies abd pain, hematochezia denies hematuria, nocturia ENDO denies increased thirst, hunger or urination M/S Left hip pain chronic, worsening, abulates with cane, declines walker PE General: NAD HEENT PERRLA, EOMIs, B/L intact TMs,no lymphadenopathy, no lesions/exudate of posteriorpharynx, tongue midline without lesions RESP clear to auscultation bilaterally CV RR S1 S2 No LE edema GI BS + x 4, soft, nontender, nondistended, no rebound or guarding NEURO CN II-XII without focal deficit, gait steady without shuffle, MENTAL A&Ox3 Appropriate, Pleasant, Cooperative VITALS 98.1 F [36.7 C] (09/05/2023 10:02) 74 (09/05/2023 10:02) 16 (09/05/2023 10:02) 156/80 (09/05/2023 10:02) rpt manual 130/74 7 (09/05/2023 10:02) 63 in [160.0 cm] (03/06/2023 11:10) 143 lb [64.86 kg] (09/05/2023 10:02) BMI: 25.4 A/P ASSESSMENT AND PLAN: 1. Active smoker, COPD. -not using inahlers, encouraged to do so; states feeling lazy so hasn't been taking ,knows he should, will resume -reinforced recommendation to quit smoking, not interested but has patches if changes mind -no recent COPD flares 2. Aortic stenosis, s/p TAVR 01/19/23 --following with [facility]; re- entered consult to Dr. Barney for f/u 3.Osteopenia last bone density was July 2022; on CA and VIt D. No fx. 4. DM on metformin his last hemoglobin A1c was 6.7, recommend Nutrition consult, he declines; following with optometry 5. Hypertension -on amlodipine, elevated on arrival, rpt manual bp at goal -reinforced diet--low sodium, eats a lot of [place] and [employer] 6. History of PVD s/p angioplastin LLE followed by vascular surgery Dr. Enzo Santos 7. Hypercholesterolemia on atorvastatin 20 mg -tolerating well -lipids well controlled 08/2023 8. Obstructive sleep apnea using CPAP machine and no issues were identified; using nightly and with naps. 9. Mild anemia on most recent labs, ordered for rpt cbc, iron studies and fit test. No abd pain, blood in stool,black stool. 10. H/o Jc's esophaugs, no recent EGD, on pantoprazole -consult to GI Vet requesting to transfer to [facility] due to distance. HTN Assess for Elevated BP>=140/90: Repeat blood pressure: 130/74 Medication Reconciliation: Outpatient: Has the patient been taking medications as documented in the EMLR? YES: The patient has been taking medications as documented in the EMLR. Essential Medication List for Review used to complete this medication reconciliation. INCLUDED IN THIS LIST: Alphabetical list of active outpatient prescriptions [facility] from this [facility] and dispensed from another [place] or [facility] facility (remote) as well as inpatient orders [...] whether with a VA or non-VA provider. Eye Care At-Risk Screen : Patient identified to be at risk for the following eye condition(s): DIABETIC RETINOPATHY: Diabetes Diagnosis Information: Encounter Diagnosis: 12/13/2022@15:00 Z79.84 (ICD-10-CM) FPC (current) use of oral hypoglycemic drugs rank: SECONDARY Prov. Narr. - joint terminal attack controller (current) use of oral hypoglycemic drugs MACULAR DEGENERATION: Macular Degeneration Risk Factors Information: Reminder Term: VA-AMD RISK FACTORS Encounter Diagnosis: 07/04/2023@11:00 F17.210 (ICD-10-CM) Nicotine Dependence, Cigarettes, Uncomplicated rank: SECONDARY Prov. Narr. - Nicotine Dependence, Cigarettes, Uncomplicated GLAUCOMA: Glaucoma Risk Factors Information: Encounter Diagnosis: 09/20/2010@08:00 365.01 (ICD-9-CM) Open angle with borderline glaucoma findings rank: PRIMARY Prov. Narr. - Open Angle Glaucoma Suspect Action: Referral Ordered: Tele-Eye Screening /reginaldo/ DANIELE CHILDS NP NURSE PRACTITIONER Signed: 09/05/2023 10:46 09/05/2023 ADDENDUM STATUS: COMPLETED Left hip pain-- s/p replacement 17 years ago -ambualting with cane, has walker, does not use -no recent falls -heck xray PT Vs ortho /reginaldo/ DANIELE CHILDS NP NURSE PRACTITIONER Signed: 09/05/2023 10:47 09/05/2023 ADDENDUM STATUS: COMPLETED Vet requesting trasnfer to [facility] due to distance. /reginaldo/ DANIELE CHILDS NP NURSE PRACTITIONER Signed: 09/05/2023 10:47 Receipt Acknowledged By: 09/11/2023 12:11 /reginaldo/ ADRIANA BA NP NURSE PRACTITIONER 09/06/2023 09:29 /reginaldo/ OLEKSANDR HAYES BI LEAD ARMOR RECONNAISSANCE SPECIALIST 09/05/2023 ADDENDUM STATUS: COMPLETED Please request c-scope return recommendations from Dr. Mcconnell's office. Last c- scope found 2013. Thanks /reginaldo/ DANIELE CHILDS NP NURSE PRACTITIONER Signed: 09/05/2023 10:48 Receipt Acknowledged By: 09/05/2023 15:43 /es/ MOISÉS HERZOG REGISTERED NURSE 09/07/2023 ADDENDUM STATUS: COMPLETED Good Afternoon, I am looking at Cardiology referral for . Noted in [facility] portal that he last saw Dr. Barney in February 2023 and the f/u was to be with his primary grocery caddy, which [place] [facility] [facility] I called them and he is not currently scheduled, but they do have an opening on Monday, they will call [facility] and offer appt. /reginaldo/ ALDAIR GREEN DIRECTOR OF STUDENT SERVICES NURSE Signed: 09/07/2023 12:59 Receipt Acknowledged By: 09/07/2023 13:04 /chavez CHILDS NP NURSE PRACTITIONER 09/07/2023 ADDENDUM STATUS: COMPLETED forgot to add for your review, copy and paste from [facility] ELOISE rosenbaum/ Dr. Barney 03/10/23 Assessment/Plan 1. S/P TAVR (transcatheter aortic valve replacement) I have reviewed his transthoracic echocardiogram. The bioprosthetic TAVR valve is functioning normally. Mean gradient is less than 8 mmHg. There is no significant central or perivalvular leak. Clinically he seems to be euvolemic. He was mildly tachycardic likely due to ongoing discomfort/pain in the left upper quadrant. 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 However I cannot confirm the correlation as he also had a fall 5 to 6 months before TAVR and has been having similar discomfort in the same area. Either way it is a good idea that he continues with Eliquis. He is also factor V Leyden (heterozygous) positive. Ordered: ECG 12 Lead 2. Hypertension His blood pressure is reasonably controlled. 3. Coronary artery disease He has nonobstructive CAD. No clinical signs of angina. We will continue same medications. I am optimistic that his left-sided abdominal and chest discomfort will continue to improve. We will continue same medical regimen. He will follow-up with his primary grocery caddy and primary care provider as scheduled. /reginaldo/ ALDAIR GREEN RN STAFF NURSE Signed: 09/07/2023 13:01 09/07/2023 ADDENDUM STATUS: COMPLETED Yes,please! Thank you. /reginaldo/ DANIELE CHILDS NP NURSE PRACTITIONER Signed: 09/07/2023 13:05 Receipt Acknowledged By: 09/07/2023 14:30 /reginaldo/ ALDAIR GREEN RN STAFF NURSE 09/11/2023 ADDENDUM STATUS: COMPLETED As per the patient's request, please transfer care to [place] [facility] and establish an appointment within the next 120 days. Thank you. /es/ ADRIANA BA NP NURSE PRACTITIONER Signed: 09/11/2023 12:12 Receipt Acknowledged By: 09/11/2023 14:38 /reginaldo/ Sapphire Meredith ADVANCED ARMOR RECONNAISSANCE SPECIALIST 09/11/2023 ADDENDUM STATUS: COMPLETED Called to schedule appointment with Primary Care = PHONE NUMBER [CELLULAR] - PATIENT PHONE - Appointment type: Office, [facility] tRANSFER APPT SCHEDULED WITH [facility] PROVIDER REQUESTED Upcoming Appointments: 09/12/2023 10:00 CWM/NO/MHC/COLIN[facility] 1 09/25/2023 10:30 CWM/SO/PACT 7 11/06/2023 09:30 CWM/NO/[facility]/PAIN MD CLINIC /es/ Sapphire Meredith ADVANCED ARMOR RECONNAISSANCE SPECIALIST Signed: 09/11/2023 14:39 DANIELE CHILDS IN [facility] [place] [facility] Sep 05, 2023 10:04 AM PREVENTIVE MEDICINE NURSING NOTE: LOCAL TITLE: CLINICAL REMINDERS/NURSING STANDARD TITLE: PREVENTIVE MEDICINE NURSING NOTE DATE OF NOTE: SEP 05, 2023@10:04 ENTRY DATE: SEP 05, 2023@10:04:42 AUTHOR: EDMUND HUNTLEY: URGENCY: STATUS: COMPLETED Homelessness/Food Insecurity Screen: In the past 2 months, have you been living in stable housing that you own, rent, or stay in as part of a household? Yes - Living in stable housing. Are you worried or concerned that in the next 2 months you may NOT have stable housing that you own, rent, or stay in as part of a household? No - Not worried about housing near future The reports the following: Within the past 12 months, you worried whether your food would run out before you got money to buy more. Never true Within the past 12 months, the food you bought just didn't last and you didn't have money to get more. Never true Influenza Immunization: The patient has received the seasonal influenza vaccine for the current season at another location. Documented: INFLUENZA, UNSPECIFIED FORMULATION Historical Date Administered: Jul 06, 2023 Series: Booster Outside Location: Outside Healthcare Provider Information Source: FROM OTHER PROVIDER PAVE Foot Check: A complete foot check was completed at this encounter. VISUAL INSPECTION: Includes inspection for skin breaks, deformity, erythema, trauma, pallor on elevation, dependent rubor, nail deformities, extensive callus and pitting edema. Visual exam results: Normal PEDAL PULSES: Includes palpation of dorsalis and posterior tibial pulses and signs/symptoms of vascular compromise like pain, pallor, parasthesia or paralysis. Present (even if diminished) SENSORY CHECK: Includes 10 gram Monofilament ([place]) test of sensation. Intact (Greater than or equal to 80% of sites checked) Abnormal (Less than 80% of sites checked): Intact LOW-RISK LOW RISK FOOT EDUCATION: 1. Advised patient not to walk barefoot. Instructed the patient to pay close attention to the style and fit of shoes. 2. Explained the importance of daily foot checks. Explained that loss of sensation leads to callouses. Callouses break down, which result in ulcers that may lead to gangrene and amputation. 3. Stressed the importance of daily foot hygiene. Warm (not hot) bathing of the feet, complete drying and thorough inspection for changes in the condition of the skin constitute daily foot care. Demonstrated how to do a thorough foot check. 4. Emphasized the use of clean, non-restrictive socks/stockings and well fitting shoes. 5. Stressed the importance of immediate follow-up of any foot injuries or ulcers. Explained that he/she should be non- weight bearing whenever there are lesions on the foot, to prevent cellular damage. Level of Understanding: Good /reginaldo/ EDMUND HUNTLEY LPN Signed: 09/05/2023 10:07 NISHI HUNTLEY [facility]
--- OUTSIDE RECORDS SUMMARY | 2024-08-16 09:31 | XMS_ITS | Encounter Summary ---
Author Name [facility] Organization [facility] Address [address] [place] [address] Care Team Providers Care Assurance Senior Manager Name Role Phone TRACY VILLANUEVA Primary Care [...] PHI MEDEX BRONZ E December 19, 2013 [id number] GUSTAVO ARAMBULA SR PATIENT [employer] CASUALTY MEDICARE SUPPLEMEN PHI MEDIC ARE SUPPL EMENT Jul 21, 2007 NONE [id number] Edgar ARAMBULA [place]IENT [place] SUPPLEMEN PHI MEDEX BRONZ E December 19, 2013 [id number] GUSTAVO ARAMBULA SR PATIENT [place] MEDICARE SUPPLEMEN PHI MEDEX BRONZ E December 19, 2013 [id number] [phone] Edgar ARAMBULA PATIENT MEDICARE (WNR) MEDICARE () PART A Oct 19, 2004 PART A [id number] Edgar ARAMBULAN PATIENT MEDICARE (WNR) MEDICARE () PART B Oct 19, 2004 PART B [id number] [id number] Edgar ARAMBULA [place] PATIENT MEDICARE (WNR) MEDICARE () PART A Oct 19, 2004 PART A [id number] Edgar ARAMBULAN PATIENT MEDICARE (WNR) MEDICARE () PART B Oct 19, 2004 PART B [id number] [phone] [id number] Edgar ARAMBULAN PATIENT MEDICARE (WNR) MEDICARE () PART A Oct 19, 2004 PART A [id number] [id number] Edgar ARAMBULA [place] PATIENT MEDICARE (WNR) MEDICARE () PART B Oct 19, 2004 PART B [id number] 90A Edgar ARAMBULAN PATIENT MEDICARE (WNR) MEDICARE () PART A Oct 19, 2004 PART A [id number] 90A Edgar ARAMBULA PATIENT MEDICARE (WNR) MEDICARE () PART B Oct 19, 2004 PART B [id number] [id number] Edgar ARAMBULAN PATIENT MEDICARE (WNR) MEDICARE () PART A Oct 19, 2004 PART A [id number] Edgar ARAMBULAN PATIENT MEDICARE (WNR) MEDICARE () PART B Oct 19, 2004 PART B [id number] Edgar ARAMBULAN PATIENT Selected Encounter This section includes the information on record at MD for the Encounter. Date/Time Encounter Type Encounter Description Reason Pro vider Source Aug 22, 2023 10:53 AM Outpatient Encounter PRIMARY CARE/MEDICINE IHE Encounter [...] Appointment Type Appointme nt Facility Name Sep 05, 2023 10:00 AM AMBULATORY - MEDICINE [facility] [place] [facility] Sep 05, 2023 11:30 AM AMBULATORY - NONE [facility] [place] [facility] Sep 11, 2023 08:45 AM AMBULATORY - MEDICINE MD [facility] [place] [facility] Sep 12, 2023 10:00 AM AMBULATORY - PSYCHIATRY [facility] [place] [facility] Sep 25, 2023 10:30 AM AMBULATORY - MEDICINE [facility] Sep 26, 2023 08:27 AM AMBULATORY - NONE [facility] [place] [facility] Sep 26, 2023 12:00 PM AMBULATORY - MEDICINE MD [facility] [place] [facility] Oct 16, 2023 09:00 AM AMBULATORY - MEDICINE MD [facility] [place] [facility] Nov 06, 2023 09:30 AM AMBULATORY - MEDICINE MD [facility] [place] [facility] December 21, 2023 09:00 AM AMBULATORY - PSYCHIATRY [facility] [place] [facility] December 25, 2023 09:00 AM AMBULATORY - MEDICINE [facility] Feb 05, 2024 10:00 AM AMBULATORY - MEDICINE MD [facility] [place] [facility] Feb 13, 2024 11:30 AM [facility] Feb 15, 2024 09:00 AM AMBULATORY - PSYCHIATRY [facility] [place] [facility] Feb 15, 2024 09:45 AM AMBULATORY - NONE MD [facility] [place] [facility] Active, Pending, and Scheduled [...] X1 SCREEN(IN-HOUSE) STOOL FECES SP [facility] [place] [facility] Sep 26, 2023 09:55 AM Consult Order [facility] Parts Counterperson's Choice [place] Lab Results: +/- 30 days of the [...] 2023 10:[address] [facility] FERRITIN Specimen Type: SERUM No comment entered. Ordering Provider: YOAN CHILDS Report Released Date/Time: Sep 05, 2023 10:30 AM Reporting Lab: [facility]ITALUSE[address] [address] Performing Lab: [facility]ITALUSETS [address] [address] FERRITIN 25 ng/mL 20-300 Sep 05, 2023 10:[address] [address] [facility] IRON & TIBC PANEL Specimen Type: SERUM No comment entered. Ordering Provider: YOAN CHILDS Report Released Date/Time: Sep 05, 2023 10:30 AM Reporting Lab: [facility]ITAL[facility] [address] Performing Lab: [facility]ITALUSETS [address] [address] TIBC 401 ug/dL 204-475 IRON 53 ug/dL 40-160 Transferrin Saturation 13.2 L 20.0-50.0 Sep 05, 2023 10:[address] [address] [facility] CBC AND DIFF (AUTO) Specimen Type: BLOOD No comment entered. Ordering Provider: YOAN CHIDLS Report Released Date/Time: Sep 05, 2023 10:30 AM Reporting Lab: [facility]ITALUSE[address] [address] Performing Lab: [facility] [address] [facility] [address] WBC 5.66 10*3/uL 4.50-11.00 RBC 4.25 10*6/uL 4.23-5.66 HGB 12.1 g/dL L 12.8-17 HCT 35.5 L 39.2-50.4 MCV 83.5 fL 82-99 MCHC 34.1 g/dL 30.8-35.1 PLT 295 10*3/uL 140-360 RDW-CV 12.0 12.0-16.0 [place], Abs 0.59 10*3/uL 0.30-1.10 MCH 28.5 pg 26.2-32.6 Neut % 56.3 43.7-75.8 Lymph % 27.2 14.0-42.3 [place] % 10.4 5.1-13.7 Eos % 4.1 0.4-6.8 Baso % 1.6 0.1-2.0 Neut, Abs 3.19 10*3/uL 2.20-7.60 Lymph, Abs 1.54 10*3/uL 1.00-3.20 Eos, Abs 0.23 10*3/uL 0.03-0.44 Baso, Abs 0.09 10*3/uL 0.01-0.13 Immature Gran % 0.4 0.0-0.7 Immature Gran, Abs 0.02 10*3/uL 0.00-0.06 Sep 01, 2023 10:29 AM [facility] HEMOGLOBIN A1C PANEL Specimen Type: BLOOD [...] Aug 17, 2023 08:25 AM Reporting Lab: [facility] [address] [facility] [address] Performing Lab: [address] [place] [address] HEMOGLOBIN A1C 6.7 H 4.0-5.6 Sep 01, 2023 10:29 AM [facility] LIPID PANEL FASTING Specimen Type: SERUM No comment entered. Ordering Provider: YULY AUSTIN Report Released Date/Time: Aug 17, 2023 08:25 AM Reporting Lab: [facility] [address] [facility] [address] Performing Lab: [address] [address] CHOLESTEROL 133 mg/dL TRIGLYCERIDE 73 mg/dL 0-150 LDL calculated 75 mg/dL 0-129 CHOL/HDL 3.1 HDL CHOLESTEROL 43 mg/dL 40-60 Sep 01, 2023 10:29 AM [facility] BASIC METABOLIC PANEL (fasting) Specimen Type: SERUM No comment entered. Ordering Provider: YULY AUSTIN Report Released Date/Time: Aug 17, 2023 08:25 AM Reporting Lab: [address] [address] Performing Lab: [address] [address] UREA NITROGEN 10 mg/dL 7-25 GLUCOSE 135 mg/dL H 65-100 SODIUM 138 mmol/L 135-145 POTASSIUM 3.9 mmol/L 3.5-5.0 CHLORIDE 101 mmol/L 100-110 CO2 27 meq/L 20-30 CREATININE, Serum 0.73 mg/dL 0.50-1.40 eGFR(CKD-EPI 2020) 90 mL/min >60 Sep 01, 2023 10:29 AM [facility] LIVER FUNCTION Specimen Type: SERUM No comment entered. Ordering Provider: YULY AUSTIN Report Released Date/Time: Aug 17, 2023 08:25 AM Reporting Lab: [address] [address] Performing Lab: [address] [address] PROTEIN,TOTAL 6.9 g/dL 6.0-8.3 ALBUMIN 3.8 g/dL 3.5-5.0 ALKALINE PHOSPHATASE 91 U/L 40-150 AST 14 U/L 5-34 ALT 13 U/L BILIRUBIN, TOTAL 0.5 mg/dL 0.2-1.2 Sep 01, 2023 10:29 AM [facility] MICROALBUMIN CREATININE RATIO PANEL Specimen Type: URINE No comment entered. Ordering Provider: YULY AUSTIN Report Released Date/Time: Aug 17, 2023 08:25 AM Reporting Lab: [facility] [address] [facility] [address] Performing Lab: [address] [address] MICROALBUMIN/C REATININE RATIO 9.0 mg/g 0-29.9 MICROALBUMIN,Q UANTITATIVE 1.0 mg/dL RR UNAVAIL CREATININE URINE 110.79 mg/dL Sep 01, 2023 10:29 AM [facility] CBC AND DIFF (AUTO) Specimen Type: BLOOD No comment entered. Ordering Provider: YULY AUSTIN Report Released Date/Time: Aug 17, 2023 08:25 AM Reporting Lab: [facility] [address] [facility] [address] Performing Lab: [facility] [address] [facility] [address] WBC 8.35 10*3/uL 4.50-11.00 RBC 4.17 10*6/uL L 4.23-5.66 HGB 12.0 g/dL L 12.8-17 HCT 35.3 L 39.2-50.4 MCV 84.7 fL 82-99 MCHC 34.0 g/dL 30.8-35.1 PLT 305 10*3/uL 140-360 RDW-CV 12.3 12.0-16.0 [place], Abs 0.71 10*3/uL 0.30-1.10 MCH 28.8 pg 26.2-32.6 Neut % 66.3 43.7-75.8 Lymph % 20.8 14.0-42.3 [place] % 8.5 5.1-13.7 Eos % 3.0 0.4-6.8 [...] place. Date/Time Current Smoking Status Comment [facility] Dec 13, 2022 03:00 PM VA-TOBACCO USER EVERY DAY [facility] [place] [facility] Tobacco Use History This section includes a history of the smoking, or tobacco-related health factors, that were collected on or before the date of the Encounter. The data comes from the MD facility where the Encounter took place. Date/Time Smoking Status/Tobac co Use Comment Facility Dec 13, 2022 03:00 PM VA-TOBACCO USE 30 YEARS OR MORE [facility] [place] [facility] Dec 13, 2022 03:00 PM VA-TOBACCO USE ADVICE MD [facility] [place] [facility] Dec 13, 2022 03:00 PM VA-TOBACCO USE BALANCE ENGINEER NO [facility] [place] [facility] Dec 13, 2022 03:00 PM VA-TOBACCO USE MED NO [facility] [place] [facility] Dec 13, 2022 03:00 PM VA-TOBACCO USER EVERY DAY [facility] [place] [facility] Nov 17, 2021 10:00 AM VA-TOBACCO USE 30 YEARS OR MORE [facility] [place] [facility] Nov 17, 2021 10:00 AM VA-TOBACCO USE ADVICE [facility] [place] [facility] Nov 17, 2021 10:00 AM VA-TOBACCO USE BALANCE ENGINEER NO [facility] Nov 17, 2021 10:00 AM VA-TOBACCO USE MED NO [facility] Nov 17, 2021 10:00 AM VA-TOBACCO USE WI 30 MIN OF WAKEUP [facility] Nov 17, 2021 10:00 AM VA-TOBACCO USER EVERY [facility] Oct 14, 2013 12:55 PM V1-PT NOT INTERESTED IN QUIT TOBACCO USE [facility] May 07, 2013 05:04 PM CURRENT SMOKER trying to stop [facility] May 07, 2013 05:04 PM V1-PT DECLINES REF TO TOBACCO CESS PRGM [facility] May 07, 2013 05:04 PM V1-PT DECLINES TOBACCO CESSATION MEDS [facility] May 07, 2013 05:04 PM V1-PT READY TO QUIT TOBACCO USE [facility] Dec 03, 2012 08:23 AM V1-PT DECLINES REF TO TOBACCO CESS PRGM [facility] Dec 03, 2012 08:23 AM V1-PT DECLINES TOBACCO CESSATION MEDS [facility] Dec 03, 2012 08:23 AM V1-PT THINKING ABOUT QUIT TOBACCO USE [facility] Jun 05, 2012 08:45 AM CURRENT SMOKER 1/2ppd [facility] Jun 05, 2012 08:45 AM V1-PT DECLINES REF TO TOBACCO CESS PRGM [facility] Jun 05, 2012 08:45 AM V1-PT THINKING ABOUT QUIT TOBACCO USE [facility] Jun 05, 2012 08:45 AM V1-TOBACCO CESS MEDS NOT PRESCRIBED Vet wants to talk to his provider-He is nervous about taking meds to quit- but he is interested in quitting [facility] Nov 25, 2011 09:14 AM V1-PT DECLINES REF TO TOBACCO CESS PRGM [facility] Nov 25, 2011 09:14 AM V1-PT DECLINES TOBACCO CESSATION MEDS [facility] [place] [facility] Nov 25, 2011 09:14 AM V1-PT THINKING ABOUT QUIT TOBACCO USE [facility] [place] [facility] May 06, 2011 01:02 PM CURRENT SMOKER [facility] [place] [facility] May 06, 2011 01:02 PM V1-PT DECLINES TOBACCO CESSATION MEDS [facility] [place] [facility] May 06, 2011 01:02 PM V1-PT NOT INTERESTED IN QUIT TOBACCO USE [facility] [place] [facility] Sep 24, 2010 08:51 AM V1-PT DECLINES TOBACCO CESSATION MEDS [facility] [place] [facility] Sep 24, 2010 08:51 AM V1-PT THINKING ABOUT QUIT TOBACCO USE [facility] [place] [facility] Mar 22, 2010 07:58 AM CURRENT SMOKER 1/2 ppd [facility] [place] [facility] Feb 25, 2009 12:05 PM QUIT TOBACCO USE IN PAST YEAR [facility] [place] [facility] Aug 26, 2008 09:28 AM CURRENT SMOKER 1/2 ppd [facility] [place] [facility] Aug 26, 2008 09:28 AM V1-PT DECLINES REF TO TOBACCO CESS [facility] [place] [facility] Aug 26, 2008 09:28 AM V1-PT READY TO QUIT TOBACCO USE [facility] [place] [facility] Dec 19, 2007 10:08 AM V1-PT DECLINES REF [facility]ACCO [facility]ESS [facility] [place] [facility] Dec 19, 2007 10:08 AM V1-PT DECLINES TOBACCO CESSATION MEDS [facility] [place] [facility] Dec 19, 2007 10:08 AM V1-PT THINKING ABOUT QUIT TOBACCO USE MD [facility]TR [facility] [place] [facility] Sep 11, 2007 11:10 AM CUR[facility]MOKER [facility] [place] [facility] Sep 11, 2007 11:10 AM V1-PT DECLINES REF TO TOBACCO CESS PRGM [facility] [place] [facility] Sep 11, 2007 11:10 AM V1-PT DECLINES TOBACCO CESSATION MEDS [facility] [place] [facility] Sep 11, 2007 11:10 AM V1-PT THINKING ABOUT QUIT TOBACCO USE [facility] [place] [facility] Feb 13, 2007 01:46 PM V1-PT DECLINES REF TO TOBACCO CESS PRGM [facility] Feb 13, 2007 01:46 PM V1-PT DECLINES TOBACCO CESSATION MEDS [facility] Feb 13, 2007 01:46 PM V1-PT THINKING ABOUT QUIT TOBACCO USE [facility] Oct 02, 2006 08:28 AM QUIT TOBACCO USE IN PAST YEAR 3 months ago [facility] Aug 19, 2005 08:33 AM QUIT TOBACCO USE IN PAST YEAR nonsmoker [facility] Sep 21, 2004 09:54 AM CURRENT SMOKER [facility] Sep 07, 2004 08:07 AM CURRENT SMOKER [facility] Sep 15, 2003 11:21 AM CURRENT SMOKER smokes one pk day [facility] Jul 23, 2003 01:57 PM CURRENT SMOKER [facility] Advance Directives: All historical and [...] The data comes from all [facility]. Date Advance Directives Provider Source Apr 10, 2023 ADVANCE DIRECTIVE ESSIE STARK [facility] Apr 19, 2007 ADVANCE [...] the Encounter. The [facility] comes [facility]. Date/Time Radiology Report Provider Source Sep 05, 2023 11:05 AM HIP 2-3 VIEWS(LEFT ) WITH OR WITHOUT PELVIS: GUSTAVO ARAMBULA [id number] M Exm Date: SEP 05, 2023@11:05 Req Phys: DANIELE CHILDS Pat Loc: CWM/NO/PACT/FIRM REUSE TECHNICIAN (Req'g Loc Img Loc: [facility]/BUILDING 1 Service: Unknown (Case 18 COMPLETE) HIP 2-3 VIEWS(LEFT) WITH OR WITHO(RAD Detailed) CPT:58008 Proc Modifiers : LEFT CPT Modifiers : LT LEFT SIDE Reason for Study: chronic left hip pain Clinical History: Report Status: Verified Date Reported: SEP 05, 2023 Date Verified: SEP 05, 2023 News Intern E-Sig:/[email or web address] GUZMAN JR Report: Study: AP view of [...] Primary Interpreting Staff: CHERYLE GUZMAN JR, Radiologist (News Intern) /CHERYLE VALENCIA JR [facility] Encounter Notes: All associated encounter notes This section contains the clinical notes associated to the Encounter. Date/Time Encounter Note(s) Provider Source Aug 22, 2023 11:04 AM ADDENDUM: LOCAL TITLE: Addendum STANDARD TITLE: ADDENDUM DATE OF NOTE: AUG 22, 2023@11:04:36 ENTRY DATE: AUG 22, 2023@11:04:37 AUTHOR: SE REYES EXP COSIGNER: URGENCY: STATUS: COMPLETED WILL DEFER TO PCP FOR RENEWAL /samreen/ SE REYES Registered Nurse Signed: 08/22/2023 11:04 Receipt Acknowledged By: 08/22/2023 16:17 /samreen/ YULY AUSTIN MD STAFF PHYSICIAN ========= --- Original Document --- 08/22/23 WALK-IN NOTE PRIMARY CARE (T): <====Click to Start Advanced Medical Support [place] presents to the Primary Care clinic with the following request: [ X ]Medication Renewal/Refill [ ]Consultation with Team RN [ ]Symptoms [ ]Other The [place] states they are: [ ]Waiting [ X ]Not Waiting No Walk in visit scheduled with PACT Nurse [ X ] At this encounter the [place]'s demographics were verified. [ X ] At this encounter the [place]'s Insurance information was verified. [ X ] At this encounter the below scheduled visits for the were discussed and appointment reminder card was offered. Future appointments: 09/05/2023 10:00 CWM/NO/PACT 1 09/12/2023 10:00 CWM/NO/MHC/COLINDRES 1 11/06/2023 09:30 CWM/NO/VVC/PAIN MD CLINIC came into [facility] today requesting refills for ATORVASTATIN. Rosholt states he would like to warp picker this medication in the [facility]. /samreen/ SHANEKA SMITH Signed: 08/22/2023 10:55 Receipt Acknowledged By: 08/22/2023 11:04 /samreen/ SE REYES Registered Nurse 08/22/2023 11:13 /samreen/ MARCELINA BA ADVANCED WARE SERVER SE REYES MD [facility] [place] [facility] Aug 22, 2023 10:53 AM PRIMARY CARE NOTE: LOCAL TITLE: WALK-IN NOTE PRIMARY CARE (T) STANDARD TITLE: PRIMARY CARE NOTE DATE OF NOTE: AUG 22, 2023@10:53 ENTRY DATE: AUG 22, 2023@10:54:07 AUTHOR: SHANEKA ANGEL COSIGNER: URGENCY: STATUS: COMPLETED WALK-IN NOTE PRIMARY CARE (T) Has ADDENDA <====Click to Start Advanced Medical Support [place] presents to the Primary Care clinic with the following request: [ X ]Medication Renewal/Refill [ ]Consultation with Team RN [ ]Symptoms [ ]Other The states they are: [ ]Waiting [ X ]Not Waiting No Walk in visit scheduled with PACT Nurse [ X ] At this encounter the 's demographics were verified. [ X ] At this encounter the Rosholt's Insurance information was verified. [ X ] At this encounter the below scheduled visits for the [place] were discussed and appointment reminder card was offered. Future appointments: 09/05/2023 10:00 CWM/NO/PACT 1 09/12/2023 10:00 CWM/NO/MHC/COLINDRES 1 11/06/2023 09:30 CWM/NO/VVC/PAIN MD CLINIC came into [facility] today requesting refills for ATORVASTATIN. Rosholt states he would like to warp picker this medication in the [facility]. /samreen/ SHANEKA SMITH Signed: 08/22/2023 10:55 Receipt Acknowledged By: 08/22/2023 11:04 /samreen/ SE REYES Registered Nurse 08/22/2023 11:13 /samreen/ MARCELINA BA ADVANCED WARE SERVER 08/22/2023 ADDENDUM STATUS: COMPLETED WILL DEFER TO PCP FOR RENEWAL /samreen/ SE REYES Registered Nurse Signed: 08/22/2023 11:04 Receipt Acknowledged By: * AWAITING SIGNATURE * YULY AUSTIN CASSANDRA M MD [facility]
--- OUTSIDE RECORDS SUMMARY | 2024-08-16 09:31 | XMS_ITS | Encounter Summary ---
Author Name [facility] [place] [facility] [place] Address [address] [place] [address] Care Team Providers Care Herbarium Curator Name Role Phone TRACY VILLANUEVA Primary Care [...] PHI MEDEX BRONZ E December 19, 2013 [id number] GUSTAVO ARAMBULA SR PATIENT [employer] CASUALTY MEDICARE SUPPLEMEN PHI MEDIC ARE SUPPL EMENT Jul 21, 2007 NONE [id number] [phone] Edgar ARAMBULA PATIENT [place] MEDICARE SUPPLEMEN PHI MEDEX BRONZ E December 19, 2013 [id number] GUSTAVO ARAMBULA SR PATIENT [place] MEDICARE SUPPLEMEN PHI MEDEX BRONZ E December 19, 2013 [id number] [phone] Edgar ARAMBULA PATIENT MEDICARE (WNR) MEDICARE () PART A Oct 19, 2004 PART A [id number] [phone] Edgar ARAMBULAN PATIENT MEDICARE (WNR) MEDICARE () PART B Oct 19, 2004 PART B [id number] Edgar ARAMBULA [place] PATIENT MEDICARE (WNR) MEDICARE () PART A Oct 19, 2004 PART A [id number] Edgar ARAMBULAN PATIENT MEDICARE (WNR) MEDICARE () PART B Oct 19, 2004 PART B [id number] Edgar ARAMBULAN PATIENT MEDICARE (WNR) MEDICARE () PART A Oct 19, 2004 PART A [id number] Edgar ARAMBULA [place] PATIENT MEDICARE (WNR) MEDICARE () PART B Oct 19, 2004 PART B [id number] [phone] Edgar ARAMBULAN PATIENT MEDICARE (WNR) MEDICARE () PART A Oct 19, 2004 PART A [id number] [phone] Edgar ARAMBULA PATIENT MEDICARE (WNR) MEDICARE () PART A Oct 19, 2004 PART A [id number] Edgar ARAMBULAN PATIENT MEDICARE (WNR) MEDICARE () PART B Oct 19, 2004 PART B [id number] Edgar ARAMBULAN PATIENT MEDICARE (WNR) MEDICARE () PART B Oct 19, 2004 PART B [id number] Edgar ARAMBULA PATIENT Selected Encounter This section includes the information on record at [place] for the Encounter. Date/Time Encounter Type Encounter Description Reason Pro vider Source Aug 24, 2023 09:00 AM Outpatient Encounter PRIMARY CARE/MEDICINE IHE Encounter [...] 20 appointments. The data comes from all [facility]. Appointment Date/Time Appointment Type Appointme nt Facility Name Sep 05, 2023 10:00 AM AMBULATORY - MEDICINE [facility] [place] [facility] Sep 05, 2023 11:30 AM AMBULATORY - NONE [facility] [place] [facility] Sep 11, 2023 08:45 AM AMBULATORY - MEDICINE [facility] [place] [facility] Sep 12, 2023 10:00 AM AMBULATORY - PSYCHIATRY [facility] [place] [facility] Sep 25, 2023 10:30 AM AMBULATORY - MEDICINE [facility] Sep 26, 2023 08:27 AM AMBULATORY - NONE [facility] [place] [facility] Sep 26, 2023 12:00 PM AMBULATORY - MEDICINE [facility] [place] [facility] Oct 16, 2023 09:00 AM AMBULATORY - MEDICINE [facility] [place] [facility] Nov 06, 2023 09:30 AM AMBULATORY - MEDICINE [facility] [place] [facility] December 21, 2023 09:00 AM AMBULATORY - PSYCHIATRY [facility] [place] [facility] December 25, 2023 09:00 AM AMBULATORY - MEDICINE [facility] Feb 05, 2024 10:00 AM AMBULATORY - MEDICINE [facility] [place] [facility] Feb 13, 2024 11:30 AM [facility] Feb 15, 2024 09:00 AM AMBULATORY - PSYCHIATRY [facility] [place] [facility] Feb 15, 2024 09:45 AM AMBULATORY - NONE [facility] [place] [facility] Active, Pending, and Scheduled Orders This section includes a listing of several types of active, pending, and scheduled orders, including clinic medications orders, diagnostic test orders, procedure orders and consult orders; where the start date of the order is 45 days before the date of the Encounter or 45 days after the date of theEncounter. The data comes from all [facility]. Test Date/Time Test Type Test Details Facility Name Sep 05, 2023 12:00 AM Laboratory - Chemi stry Order OCCULT BLOOD FIT X1 SCREEN(IN-HOUSE) STOOL [facility]EC[facility] [place] [facility] Sep 26, 2023 09:55 AM Consult Order [facility] Cons Building Code Administrator's Choice DEWEY Lab Results: +/- 30 days of the encounter This section includes the Chemistry and Hematology Lab Results on record with [place] for the patient. Radiology Reports and Pathology Reports are provided separately, in subsequent sections. Lab Results This section contains the Chemistry/Hematology Results that were resulted 30 days before or 30 daysafter the date of the Encounter. Date/Time Source Result Type Result - Unit Interpretation Reference Range Comment Sep 05, 2023 10:56 AM [facility] FERRITIN Specimen Type: SERUM No comment entered. Ordering Provider: YOAN CHILDS Report Released Date/Time: Sep 05, 2023 10:30 AM Reporting Lab: [facility] [address] Performing Lab: [facility]ITAL[facility] [address] [address] FERRITIN 25 ng/mL 20-300 Sep 05, 2023 10:56 AM [facility] IRON & TIBC PANEL Specimen Type: SERUM No comment entered. Ordering Provider: YOAN CHILDS Report Released Date/Time: Sep 05, 2023 10:30 AM Reporting Lab: [facility] [address] Performing Lab: [facility]ITAL[facility]ETS [address] [address] TIBC 401 ug/dL 204-475 IRON 53 ug/dL 40-160 Transferrin Saturation 13.2 L 20.0-50.0 Sep 05, 2023 10:56 AM [facility] CBC AND DIFF (AUTO) Specimen Type: BLOOD No comment entered. Ordering Provider: YOAN CHILDS Report Released Date/Time: Sep 05, 2023 10:30 AM Reporting Lab: [facility] [address] Performing Lab: [facility] [address] [facility] [address] WBC 5.66 10*3/uL 4.50-11.00 RBC 4.25 10*6/uL 4.23-5.66 HGB 12.1 g/dL L 12.8-17 HCT 35.5 L 39.2-50.4 MCV 83.5 fL 82-99 MCHC 34.1 g/dL 30.8-35.1 PLT 295 10*3/uL 140-360 RDW-CV 12.0 12.0-16.0 [place], Abs 0.59 10*3/uL 0.30-1.10 MCH 28.5 pg 26.2-32.6 Neut % 56.3 43.7-75.8 Lymph % 27.2 14.0-42.3 [place] % 10.4 5.1-13.7 Eos % 4.1 0.4-6.8 Baso % 1.6 0.1-2.0 Neut, Abs 3.19 10*3/uL 2.20-7.60 Lymph, Abs 1.54 10*3/uL 1.00-3.20 Eos, Abs 0.23 10*3/uL 0.03-0.44 Baso, Abs 0.09 10*3/uL 0.01-0.13 Immature Gran % 0.4 0.0-0.7 Immature Gran, Abs 0.02 10*3/uL 0.00-0.06 Sep 01, 2023 10:29 AM [facility] LIPID PANEL FASTING Specimen Type: SERUM No comment entered. Ordering Provider: YULY AUSTIN Report Released Date/Time: Aug 17, 2023 08:25 AM Reporting Lab: [facility] [address] [facility] [address] Performing Lab: [facility] [address] [facility] [address] CHOLESTEROL 133 mg/dL TRIGLYCERIDE 73 mg/dL 0-150 LDL calculated 75 mg/dL 0-129 CHOL/HDL 3.1 HDL CHOLESTEROL 43 mg/dL 40-60 Sep 01, 2023 10:29 AM [facility] BASIC METABOLIC PANEL (fasting) Specimen Type: SERUM No comment entered. Ordering Provider: YULY AUSTIN Report Released Date/Time: Aug 17, 2023 08:25 AM Reporting Lab: [facility] [address] [facility] [address] Performing Lab: [facility] [address] [facility] [address] UREA NITROGEN 10 mg/dL 7-25 GLUCOSE 135 mg/dL H 65-100 SODIUM 138 mmol/L 135-145 POTASSIUM 3.9 mmol/L 3.5-5.0 CHLORIDE 101 mmol/L 100-110 CO2 27 meq/L 20-30 CREATININE, Serum 0.73 mg/dL 0.50-1.40 eGFR(CKD-EPI 2020) 90 mL/min >60 Sep 01, 2023 10:29 AM [facility] HEMOGLOBIN A1C PANEL Specimen Type: BLOOD [...] Aug 17, 2023 08:25 AM Reporting Lab: [facility] [address] [facility] [address] Performing Lab: [address] [address] HEMOGLOBIN A1C 6.7 H 4.0-5.6 Sep 01, 2023 10:29 AM [facility] LIVER FUNCTION Specimen Type: SERUM No comment entered. Ordering Provider: YULY AUSTIN Report Released Date/Time: Aug 17, 2023 08:25 AM Reporting Lab: [facility] [address] [facility] [address] Performing Lab: [address] [address] PROTEIN,TOTAL 6.9 g/dL 6.0-8.3 ALBUMIN 3.8 g/dL 3.5-5.0 ALKALINE PHOSPHATASE 91 U/L 40-150 AST 14 U/L 5-34 ALT 13 U/L BILIRUBIN, TOTAL 0.5 mg/dL 0.2-1.2 Sep 01, 2023 10:29 AM [facility] MICROALBUMIN CREATININE RATIO PANEL Specimen Type: URINE No comment entered. Ordering Provider: YULY AUSTIN Report Released Date/Time: Aug 17, 2023 08:25 AM Reporting Lab: [facility] [address] [facility] [address] Performing Lab: [address] [address] MICROALBUMIN/C REATININE RATIO 9.0 mg/g 0-29.9 MICROALBUMIN,Q UANTITATIVE 1.0 mg/dL RR UNAVAIL CREATININE URINE 110.79 mg/dL Sep 01, 2023 10:29 AM [facility] CBC AND DIFF (AUTO) Specimen Type: BLOOD No comment entered. Ordering Provider: YULY AUSTIN Report Released Date/Time: Aug 17, 2023 08:25 AM Reporting Lab: [facility] [address] [facility] [address] Performing Lab: [facility] [address] [facility] [address] WBC 8.35 10*3/uL 4.50-11.00 RBC 4.17 10*6/uL L 4.23-5.66 HGB 12.0 g/dL L 12.8-17 HCT 35.3 L 39.2-50.4 MCV 84.7 fL 82-99 MCHC 34.0 g/dL 30.8-35.1 PLT 305 10*3/uL 140-360 RDW-CV 12.3 12.0-16.0 [place], Abs 0.71 10*3/uL 0.30-1.10 MCH 28.8 pg 26.2-32.6 Neut % 66.3 43.7-75.8 Lymph % 20.8 14.0-42.3 [place] % 8.5 5.1-13.7 Eos % 3.0 0.4-6.8 [...] Date/Time Current Smoking Status Comment [facility] Dec 13, 2022 03:00 PM VA-TOBACCO USER EVERY DAY [facility] [place] [facility] Tobacco Use History This section includes a history of the smoking, or tobacco-related health factors, that were collected on or before the date of the Encounter. The data comes from the [place] facility where the Encounter took place. 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 [facility] [place] [facility] Dec 13, 2022 03:00 PM VA-TOBACCO USE MED NO [facility] [place] [facility] Dec 13, 2022 03:00 PM VA-TOBACCO USER EVERY DAY [facility] [place] [facility] Nov 17, 2021 10:00 AM VA-TOBACCO USE 30 YEARS OR MORE [facility] [place] [facility] Nov 17, 2021 10:00 AM VA-TOBACCO USE ADVICE [facility] [place] [facility] Nov 17, 2021 10:00 AM 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 [facility] Nov 17, 2021 10:00 AM VA-TOBACCO USE MED NO [facility] Nov 17, 2021 10:00 AM VA-TOBACCO USE WI 30 MIN OF WAKEUP [facility] Nov 17, 2021 10:00 AM VA-TOBACCO USER EVERY DAY [facility] Oct 14, 2013 12:55 PM V1-PT NOT INTERESTED IN QUIT TOBACCO USE [facility] May 07, 2013 05:04 PM CURRENT SMOKER trying to stop [facility] May 07, 2013 05:04 PM V1-PT DECLINES REF TO TOBACCO CESS PRGM [facility] May 07, 2013 05:04 PM V1-PT DECLINES TOBACCO CESSATION MEDS [facility] May 07, 2013 05:04 PM V1-PT READY TO QUIT TOBACCO USE [facility] Dec 03, 2012 08:23 AM V1-PT DECLINES REF TO TOBACCO CESS PRGM [facility] Dec 03, 2012 08:23 AM V1-PT DECLINES TOBACCO CESSATION MEDS [facility] Dec 03, 2012 08:23 AM V1-PT THINKING ABOUT QUIT TOBACCO USE [facility] Jun 05, 2012 08:45 AM CURRENT SMOKER 1/2ppd [facility] Jun 05, 2012 08:45 AM V1-PT DECLINES REF TO TOBACCO CESS PRGM [facility] Jun 05, 2012 08:45 AM V1-PT THINKING ABOUT QUIT TOBACCO USE [facility] Jun 05, 2012 08:45 AM V1-TOBACCO CESS MEDS NOT PRESCRIBED Vet wants to talk to his provider-He is nervous about taking meds to quit- but he is interested in quitting [facility] Nov 25, 2011 09:14 AM V1-PT DECLINES REF TO TOBACCO CESS PRGM [facility] Nov 25, 2011 09:14 AM V1-PT DECLINES TOBACCO CESSATION MEDS [facility] [place] [facility] Nov 25, 2011 09:14 AM V1-PT THINKING ABOUT QUIT TOBACCO USE [facility] [place] [facility] May 06, 2011 01:02 PM CURRENT SMOKER [facility] [place] [facility] May 06, 2011 01:02 PM V1-PT DECLINES TOBACCO CESSATION MEDS [facility] [place] [facility] May 06, 2011 01:02 PM V1-PT NOT INTERESTED IN QUIT TOBACCO USE [facility] [place] [facility] Sep 24, 2010 08:51 AM V1-PT DECLINES TOBACCO CESSATION MEDS [facility] [place] [facility] Sep 24, 2010 08:51 AM V1-PT THINKING ABOUT QUIT TOBACCO USE [facility] [place] [facility] Mar 22, 2010 07:58 AM CURRENT SMOKER 1/2 ppd [facility] [place] [facility] Feb 25, 2009 12:05 PM QUIT TOBACCO USE IN PAST YEAR [facility] [place] [facility] Aug 26, 2008 09:28 AM CURRENT SMOKER 1/2 ppd [facility] [place] [facility] Aug 26, 2008 09:28 AM V1-PT DECLINES REF TO TOBACCO CESS [facility] [place] [facility] Aug 26, 2008 09:28 AM V1-PT READY TO QUIT TOBACCO USE [facility] [place] [facility] Dec 19, 2007 10:08 AM V1-PT DECLINES REF TO TOBACCO CESS PRGM [facility] [place] [facility] Dec 19, 2007 10:08 AM V1-PT DECLINES TOBACCO CESSATION MEDS [facility] [place] [facility] Dec 19, 2007 10:08 AM V1-PT THINKING ABOUT QUIT TOBACCO USE [facility] [place] [facility] Sep 11, 2007 11:10 AM CURRENT SMOKER [facility] [place] [facility] Sep 11, 2007 11:10 AM V1-PT DECLINES REF TO TOBACCO CESS PRGM [facility] [place] [facility] Sep 11, 2007 11:10 AM V1-PT DECLINES TOBACCO CESSATION MEDS [facility] [place] [facility] Sep 11, 2007 11:10 AM V1-PT THINKING ABOUT QUIT TOBACCO USE [facility] [place] [facility] Feb 13, 2007 01:46 PM V1-PT DECLINES REF TO TOBACCO CESS PRGM [facility] Feb 13, 2007 01:46 PM V1-PT DECLINES TOBACCO CESSATION MEDS [facility] Feb 13, 2007 01:46 PM V1-PT THINKING ABOUT QUIT TOBACCO USE [facility] Oct 02, 2006 08:28 AM QUIT TOBACCO USE IN PAST YEAR 3 months ago [facility] Aug 19, 2005 08:33 AM QUIT TOBACCO USE IN PAST YEAR nonsmoker [facility] Sep 21, 2004 09:54 AM CURRENT SMOKER [facility] Sep 07, 2004 08:07 AM CURRENT SMOKER [facility] Sep 15, 2003 11:21 AM CURRENT SMOKER smokes one pk day [facility] Jul 23, 2003 01:57 PM CURRENT SMOKER [facility] Advance Directives: All historical and current Section Date Range: From patient's date of to the date document was created. This section includes ALL of a patient's completed or amended [place] Advance and Rescinded Directives. The entries below indicate that a directive exists for the patient, but an actual copy is not included with this document. The data comes from all [facility]. Date Advance Directives Provider Source Apr 10, 2023 ADVANCE DIRECTIVE ESSIE STARK [facility] Apr 19, 2007 ADVANCE DIRECTIVE VICTORIA [...] the Encounter. The data comes from all [facility] facilities. 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 (Req'g Loc Img Loc: [facility]/BUILDING 1 Service: Unknown (Case 18 COMPLETE) HIP 2-3 VIEWS(LEFT) WITH OR WITHO(RAD Detailed) CPT:77937 Proc Modifiers : LEFT CPT Modifiers : LT LEFT SIDE Reason for Study: chronic left hip pain Clinical History: Report Status: Verified Date Reported: SEP 05, 2023 Date Verified: SEP 05, 2023 Mold Stamper And Repairer E-Sig:/ES/CHERYLE GUZMAN JR Report: Study: AP view [...] Primary Interpreting Staff: CHERYLE GUZMAN JR, Radiologist (Mold Stamper And Repairer) /CHERYLE VALENCIA JR [facility] Encounter Notes: All associated encounter notes This section contains the clinical notes associated to the Encounter. Date/Time Encounter Note(s) Provider Source Aug 24, 2023 09:00 AM ADMINISTRATIVE NOT E: LOCAL TITLE: ADMINISTRATIVE NOTE STANDARD TITLE: ADMINISTRATIVE NOTE DATE OF NOTE: AUG 24, 2023@09:00 ENTRY DATE: AUG 24, 2023@09:00:47 AUTHOR: MARCELINA BA EXP COSIGNER: URGENCY: STATUS: COMPLETED Reminder call for your upcoming Primary Care Appointment and the need for preparations prior to your upcoming appt. 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
--- OUTSIDE RECORDS SUMMARY | 2024-08-16 09:31 | XMS_ITS | Encounter Summary ---
Author Name [facility] [facility] [place] Address [address] [place] [address] Care Team Providers Care Hse Advisor Name Role Phone TARCY CARRILLO Primary Care Provider Unavailabl e Insurance [...] PHI MEDEX BRONZ E December 19, 2013 [id number] GUSTAVO ARAMBULA SR PATIENT [employer] CASUAL[employer] MEDICARE SUPPLEMEN PHI MEDIC ARE SUPPL EMENT Jul 21, 2007 NONE [id number] Edgar ARAMBULA PATIENT [place] MED[place]ARE SUPPLEMEN PHI MEDEX BRONZ E December 19, 2013 [id number] GUSTAVO ARAMBULA SR PATIENT [place] OF [place] MEDICARE SUPPLEMEN PHI MEDEX BRONZ E December 19, 2013 [id number] SEVIGNEEdgar [place] PAT[place] ([place]NR) MEDICARE () PART A Oct 19, 2004 PART A [id number] FILEMONEEdgar [place] PAT[place]IC[place]) MEDICARE (M) PART B Oct 19, 2004 PART B [id number] FILEMONEEdgar [place] PAT[place]IC[place]) MEDICARE () PART A Oct 19, 2004 PART A [id number] SEVIGNEEdgar [place] PAT[place] MEDIC[place] ([place]) MEDICARE (M) PART B Oct 19, 2004 PART B [id number] [id number] SEVIGNEEdgar [place] PAT[place]IC[place]) MEDICARE () PART A Oct 19, 2004 PART A [id number] SEVIGNEEdgar [place] PAT[place]IC[place]) MEDICARE () PART B Oct 19, 2004 PART B [id number] [phone] SEVIGNEEdgar [place] PAT[place] MEDICARE [place]) MEDICARE () PART A Oct 19, 2004 PART A [id number] [phone] SEVABIEEdgar [place] PAT[place] MEDIC[place]) MEDICARE () PART B Oct 19, 2004 PART B [id number] SEVIGNEEdgar [place] PAT[place]IC[place]) MEDICARE () PART A Oct 19, 2004 PART A [id number] [phone] SEVIGNEEdgar [place] PAT[place]IC[place]) MEDICARE () PART B Oct 19, 2004 PART B [id number] [phone] SEVABIEEdgar [place] PATIENT Selected Encounter This section includes the information on record at [place] for the Encounter. Date/Time Encounter Type Encounter Description Reason Provider Source Sep 15, 2023 03:32 PM QNHP OL DIG ASSMT&MGMT 11-20 CLINICAL PHARMACY ICD-10-CM G47.30 Sleep apnea, unspecified SHIRA ROQUE Encounter Template Text not used by [place] Assessments - Encounter Diagnoses This section includes the primary and secondary diagnoses documented for the Encounter. Date/Time Primary/Secondary Diagnosis Diagnosis Name Provider Source Sep 15, 2023 03:44 PM PRIMARY Sleep apnea, unspecified SHIRA ROQUE [place] [facility] [facility] [facility] Sep 15, 2023 03:44 PM SECONDARY Somnolence SHIRA ROQUE [place] [facility] [facility] [facility] Plan of Treatment: Future Appointments (+ 6 months) and Future Tests (+/- 45 days) The Plan of Treatment section includes future care activities for the patient [facility] [place] [facility] This section includes future appointments and [...] 2023 10:30 AM [facility] Sep 26, 2023 08:27 AM AMBULATORY [...] 2023 09:00 AM [facility] Feb 05, 2024 10:00 AM AMBULATORY - MEDICINE VA C [place] [facility] Feb 13, 2024 11:30 AM AMBULATORY - [facility]ICINE [place] [place] Feb 15, 2024 09:00 AM AMBULATORY - [...] 2024 09:00 AM AMBULATORY - MEDICINE [place] [place] Active, Pending, and Scheduled Orders This section includes a listing of several types of active, pending, and scheduled orders, including clinic medications orders, diagnostic test orders, procedure orders and consult orders; where the start date of the order is 45 days before the date of the Encounter or 45 days after the date of theEncounter. The data comes from all [place] treatment facilities. Test Date/Time Test Type Test Details Facility Name Sep 05, 2023 12:00 AM Laboratory - Chemi stry Order OCCULT BLOOD FIT X1 SCREEN(IN-HOUSE) STOOL FECES SP [facility] Sep 26, 2023 09:55 AM Consult Order [facility] Data Integration Architect's [facility] Lab Results: +/- 30 days of the encounter This section includes the Chemistry and Hematology Lab Results on record with [place] for the patient. Radiology Reports and Pathology Reports are provided separately, in subsequent sections. Lab Results This section contains the Chemistry/Hematology Results that were resulted 30 days before or 30 daysafter the date of the Encounter. Date/Time Source Result Type Result - Unit Interpretation Reference Range Comment Sep 05, 2023 10:56 AM [facility] FERRITIN Specimen Type: SERUM No comment entered. Ordering Provider: YOAN CHILDS Report Released Date/Time: Sep 05, 2023 10:30 AM Reporting Lab: [facility] [address] [address] Performing Lab: [address] [address] FERRITIN 25 ng/mL 20-300 Sep 05, 2023 10:56 AM [facility] IRON & TIBC PANEL Specimen Type: SERUM No comment entered. Ordering Provider: YOAN CHILDS Report Released Date/Time: Sep 05, 2023 10:30 AM Reporting Lab: [facility] [address] [address] Performing Lab: [address] [address] TIBC 401 ug/dL 204-475 IRON 53 ug/dL 40-160 Transferrin Saturation 13.2 L 20.0-50.0 Sep 05, 2023 10:56 AM [facility] CBC AND DIFF (AUTO) Specimen Type: BLOOD No comment entered. Ordering Provider: YOAN CHILDS Report Released Date/Time: Sep 05, 2023 10:30 AM Reporting Lab: [facility] [address] [address] Performing Lab: [facility] [address] [address] WBC 5.66 10*3/uL 4.50-11.00 RBC 4.25 10*6/uL 4.23-5.66 HGB 12.1 g/dL L 12.8-17 HCT 35.5 L 39.2-50.4 MCV 83.5 fL 82-99 MCHC 34.1 g/dL 30.8-35.1 PLT 295 10*3/uL 140-360 RDW-CV 12.0 12.0-16.0 [place], Abs 0.59 10*3/uL 0.30-1.10 MCH 28.5 pg 26.2-32.6 Neut % 56.3 43.7-75.8 Lymph % 27.2 14.0-42.3 [place] % 10.4 5.1-13.7 Eos % 4.1 0.4-6.8 Baso % 1.6 0.1-2.0 Neut, Abs 3.19 10*3/uL 2.20-7.60 Lymph, Abs 1.54 10*3/uL 1.00-3.20 Eos, Abs 0.23 10*3/uL 0.03-0.44 Baso, Abs 0.09 10*3/uL 0.01-0.13 Immature Gran % 0.4 0.0-0.7 Immature Gran, Abs 0.02 10*3/uL 0.00-0.06 Sep 01, 2023 10:29 AM [facility] LIPID PANEL FASTING Specimen Type: SERUM No comment entered. Ordering Provider: YUYL AUSTIN Report Released Date/Time: Aug 17, 2023 08:25 AM Reporting Lab: [address] [address] Performing Lab: [facility] [address] [address] CHOLESTEROL 133 mg/dL TRIGLYCERIDE 73 mg/dL 0-150 LDL calculated 75 mg/dL 0-129 CHOL/HDL 3.1 HDL CHOLESTEROL 43 mg/dL 40-60 Sep 01, 2023 10:29 AM [facility] HEMOGLOBIN A1C PANEL Specimen Type: BLOOD [...] Aug 17, 2023 08:25 AM Reporting Lab: [address] [address] Performing Lab: [address] [address] HEMOGLOBIN A1C 6.7 H 4.0-5.6 Sep 01, 2023 10:29 AM [facility] BASIC METABOLIC PANEL (fasting) Specimen Type: SERUM No comment entered. Ordering Provider: YULY AUSTIN Report Released Date/Time: Aug 17, 2023 08:25 AM Reporting Lab: [address] [address] Performing Lab: [address] [address] UREA NITROGEN 10 mg/dL 7-25 GLUCOSE 135 mg/dL H 65-100 SODIUM 138 mmol/L 135-145 POTASSIUM 3.9 mmol/L 3.5-5.0 CHLORIDE 101 mmol/L 100-110 CO2 27 meq/L 20-30 CREATININE, Serum 0.73 mg/dL 0.50-1.40 eGFR(CKD-EPI 2020) 90 mL/min >60 Sep 01, 2023 10:29 AM [facility] LIVER FUNCTION Specimen Type: SERUM No comment entered. Ordering Provider: YULY AUSTIN Report Released Date/Time: Aug 17, 2023 08:25 AM Reporting Lab: [facility] [place] [facility] [address] [address] Performing Lab: [facility]ERN [facility] [address] [address] PROTEIN,TOTAL 6.9 g/dL 6.0-8.3 ALBUMIN 3.8 g/dL 3.5-5.0 ALKALINE PHOSPHATASE 91 U/L 40-150 AST 14 U/L 5-34 ALT 13 U/L BILIRUBIN, TOTAL 0.5 mg/dL 0.2-1.2 Sep 01, 2023 10:29 AM [facility] MICROALBUMIN CREATININE RATIO PANEL Specimen Type: URINE No comment entered. Ordering Provider: YULY AUSTIN Report Released Date/Time: Aug 17, 2023 08:25 AM Reporting Lab[facility] [address] [address] Performing Lab: [facility] [address] [address] MICROALBUMIN/C REATININE RATIO 9.0 mg/g 0-29.9 MICROALBUMIN,Q UANTITATIVE 1.0 mg/dL RR UNAVAIL CREATININE URINE 110.79 mg/dL Sep 01, 2023 10:29 AM [facility] CBC AND DIFF (AUTO) Specimen Type: BLOOD No comment entered. Ordering Provider: YULY AUSTIN Report Released Date/Time: Aug 17, 2023 08:25 AM Reporting Lab: [facility]ITALRL TRN [facility] [address] [address] Performing Lab: [facility]ITAL[facility]DE[facility] CAMPUSTRN [facility]ITALUSETS [address] [address] WBC 8.35 10*3/uL 4.50-11.00 RBC 4.17 10*6/uL L 4.23-5.66 HGB 12.0 g/dL L 12.8-17 HCT 35.3 L 39.2-50.4 MCV 84.7 fL 82-99 MCHC 34.0 g/dL 30.8-35.1 PLT 305 10*3/uL 140-360 RDW-CV 12.3 12.0-16.0 [place], Abs 0.71 10*3/uL 0.30-1.10 MCH 28.8 pg 26.2-32.6 Neut % 66.3 43.7-75.8 Lymph % 20.8 14.0-42.3 [place] % 8.5 5.1-13.7 Eos % 3.0 0.4-6.8 [...] took place. Date/Time Current Smoking Status Comment [facility] Dec 13, 2022 03:00 PM VA-TOBACCO USE ADVICE [place] [facility] [facility] Tobacco Use History This section includes [...] Dec 13, 2022 03:00 PM VA-TOBACCO USE FOUNDATION RELATIONS DIRECTOR NO [place] [facility] [place] [facility] Dec 13, 2022 03:00 PM VA-TOBACCO USE MED NO [place] [facility] [place] [facility] Dec 13, 2022 03:00 PM VA-TOBACCO USER EVERY DAY [facility] [place] [facility] Nov 17, 2021 10:00 AM VA-TOBACCO USE 30 YEARS OR MORE [place] [facility]TR [facility] Nov 17, 2021 10:00 AM VA-TOBACCO USE ADVICE [place] [facility] Nov 17, 2021 10:00 AM VA-TOBACCO USE FOUNDATION RELATIONS DIRECTOR NO [facility] Nov 17, 2021 10:00 AM VA-TOBACCO USE MED NO [place] CNTR [facility] Nov 17, 2021 10:00 AM VA-TOBACCO USE WI 30 MIN OF WAKEUP [facility] BIBIANATRN [facility] Nov 17, 2021 10:00 AM VA-TOBACCO USER EVERY DAY [place] CNTR [facility]ATRN [facility] Oct 14, 2013 12:55 PM V1-PT NOT INTERESTED IN QUIT TOBACCO USE [facility] [place] [facility] May 07, 2013 05:04 PM CURRENT SMOKER trying to stop [place] [facility] [facility] May 07, 2013 05:04 PM V1-PT DECLINES REF TO TOBACCO CESS PRGM [place] [facility]TR [facility] May 07, 2013 05:04 PM V1-PT DECLINES TOBACCO CESSATION MEDS [place] CNTR [facility] May 07, 2013 05:04 PM V1-PT READY TO QUIT TOBACCO USE [place] [facility] [facility] Dec 03, 2012 08:23 AM V1-PT DECLINES REF TO TOBACCO CESS PRGM [place] [facility] Dec 03, 2012 08:23 AM V1-PT DECLINES TOBACCO CESSATION MEDS [facility] [place] [facility] Dec 03, 2012 08:23 AM V1-PT THINKING ABOUT QUIT TOBACCO USE [place] [facility] [facility] Jun 05, 2012 08:45 AM CURRENT SMOKER 1/2ppd [place] [facility] [facility] Jun 05, 2012 08:45 AM V1-PT DECLINES REF TO TOBACCO CESS PRGM [place] [facility] Jun 05, 2012 08:45 AM V1-PT THINKING ABOUT QUIT TOBACCO USE [place] [facility] [facility] Jun 05, 2012 08:45 AM V1-TOBACCO CESS MEDS NOT PRESCRIBED Vet wants to talk to his provider-He is nervous about taking meds to quit- but he is interested in quitting [facility] [place] [place] [facility] Nov 25, 2011 09:14 AM V1-PT DECLINES REF TO TOBACCO CESS PRGM [facility] WSTRN [facility] Nov 25, 2011 09:14 AM V1-PT DECLINES TOBACCO CESSATION MEDS [facility] BIBIANATRN [facility] Nov 25, 2011 09:14 AM V1-PT THINKING ABOUT QUIT TOBACCO USE [facility] [place] [facility] May 06, 2011 01:02 PM CURRENT SMOKER [facility] May 06, 2011 01:02 PM V1-PT DECLINES TOBACCO CESSATION MEDS [facility] May 06, 2011 01:02 PM V1-PT NOT INTERESTED IN QUIT TOBACCO USE [facility] Sep 24, 2010 08:51 AM V1-PT DECLINES TOBACCO CESSATION MEDS [facility] PE[facility]IATRN [facility] Sep 24, 2010 08:51 AM V1-PT THINKING ABOUT QUIT TOBACCO USE [facility]RN [facility] Mar 22, 2010 07:58 AM CURRENT SMOKER 1/2 ppd [facility] PE[facility]RN [facility] Feb 25, 2009 12:05 PM QUIT TOBACCO USE IN PAST YEAR [facility] Aug 26, 2008 09:28 AM CURRENT SMOKER 1/2 ppd [facility] BIBIANATRN [facility] Aug 26, 2008 09:28 AM V1-PT DECLINES REF TO TOBACCO CESS PRGM [facility] [place] [place] [facility] Aug 26, 2008 09:28 AM V1-PT READY TO QUIT TOBACCO USE [facility] [place] [facility] Dec 19, 2007 10:08 AM V1-PT DECLINES REF TO TOBACCO CESS PRGM [facility] Dec 19, 2007 10:08 AM V1-PT DECLINES TOBACCO CESSATION MEDS [facility] Dec 19, 2007 10:08 AM V1-PT THINKING ABOUT QUIT TOBACCO USE [facility] [place] [facility] Sep 11, 2007 11:[address] [facility] Sep 11, 2007 11:10 AM V1-PT DECLINES REF TO TOBACCO CESS PRGM [facility] Sep 11, 2007 11:10 AM V1-PT DECLINES TOBACCO CESSATION MEDS [facility] Sep 11, 2007 11:10 AM V1-PT THINKING ABOUT QUIT TOBACCO USE [facility] Feb 13, 2007 01:46 PM V1-PT DECLINES REF TO TOBACCO CESS PRGM [facility] Feb 13, 2007 01:46 PM V1-PT DECLINES TOBACCO CESSATION MEDS [facility] Feb 13, 2007 01:46 PM V1-PT THINKING ABOUT QUIT TOBACCO USE [facility] Oct 02, 2006 08:28 AM QUIT TOBACCO USE IN PAST YEAR 3 months ago [facility] Aug 19, 2005 08:33 AM QUIT TOBACCO USE IN PAST YEAR nonsmoker [facility] Sep 21, 2004 09:54 AM CURRENT SMOKER [facility] Sep 07, 2004 08:07 AM CURRENT SMOKER [facility] Sep 15, 2003 11:21 AM CURRENT SMOKER smokes one pk day [facility] Jul 23, 2003 01:57 PM CURRENT SMOKER [facility] Advance Directives: All historical and current [...] ADVANCE DIRECTIVE [facility] Apr 19, 2007 ADVANCE DIRECTIVE VICTORIA JOHNSON [...] Loc: CWM/SO/PACT 7 (Req'g Loc) Img Loc: [facility] 1 Service: Unknown (Case [id number] COMPLETE) SPINE LUMBOSACRAL MIN 2 VIEWS (RAD Detailed) CPT:32356 Reason for Study: lumbar pain Clinical History: 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, fellow, SUPER[employer]OR [employer] or attending: Tracy Carrillo NP [place] Pager: [phone] Backup pager: History: chronic lumbar spine pain Report Status: Verified Date Reported: SEP 26, 2023 Date Verified: SEP 26, 2023 Spiral Tube Winder E-Sig:/ES/CHERYLE GUZMAN JR Report: Study: AP, lateral [...] Primary Interpreting Staff: CHERYLE GUZMAN JR, Radiologist (Spiral Tube Winder) /CHERYLE VALENCIA JR [place] [facility] Sep 26, 2023 08:32 AM HIP 2-3 VIEWS (RIGHT) WITH OR WITHOUT PELVIS: GUSTAVO ARAMBULA 1940 M Exm Date: SEP 26, 2023@08:32 Req Phys: TRACY CARRILLO Pat Loc: CWM/SO/PACT 7 (Req'g Loc) Img Loc: [facility] 1 Service: Unknown (Case [id number] COMPLETE) HIP 2-3 VIEWS (RIGHT) WITH OR WIT(RAD Detailed) CPT:46440 CPT Modifiers : RT RIGHT SIDE Reason for Study: hip pain Clinical History: 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, fellow, SU[employer] or attending: Tracy Carrillo NP [place] Pager: [phone] Backup pager: History: chronic right hip pain, hx CAROL ANN Report Status: Verified Date Reported: SEP 26, 2023 Date Verified: SEP 26, 2023 Spiral Tube Winder E-Sig:/ES/CHERYLE GUZMAN JR Report: Study: AP view [...] Primary Interpreting Staff: CHERYLE GUZMAN JR, Radiologist (Spiral Tube Winder) /CHERYLE VALENCIA JR [place] [facility] [facility] Sep 05, 2023 11:05 AM HIP 2-3 VIEWS(LEFT) WITH OR WITHOUT PELVIS: GUSTAVO ARAMBULA 1940 M Exm Date: SEP 05, 2023@11:05 Req Phys: DANIELE CHILDS Pat Loc: CWM/NO/PACT/FIRM [employer] (Req'g Loc Img Loc: [facility] 1 Service: Unknown (Case 18 COMPLETE) HIP 2-3 VIEWS(LEFT) WITH OR WITHO(RAD Detailed) CPT:40213 Proc Modifiers : LEFT CPT Modifiers : LT LEFT SIDE Reason for Study: chronic left hip pain Clinical History: Report Status: Verified Date Reported: SEP 05, 2023 Date Verified: SEP 05, 2023 Spiral Tube Winder E-Sig:/ES/CHERYLE GUZMAN JR Report: Study: AP view [...] Primary Interpreting Staff: CHERYLE GUZMAN JR, Radiologist (Spiral Tube Winder) /CHERYLE VALENCIA JR [facility] Encounter Notes: All associated encounter notes This section contains the clinical notes associated to the Encounter. Date/Time Encounter Note(s) Provider Source Sep 15, 2023 03:32 PM MEDICATION MGT CON SULT: LOCAL TITLE: CONSULT REPORT/NON FORMULARY PADR STANDARD TITLE: MEDICATION MGT CONSULT DATE OF NOTE: SEP 15, 2023@15:32 ENTRY DATE: SEP 15, 2023@15:32:19 AUTHOR: SHIRA ROQUE COSIGNER: URGENCY: STATUS: COMPLETED CONSULT REPORT/NON FORMULARY PADR Has ADDENDA The medical record has been reviewed with regard to this restricted drug request. Medication requested: PITOLISANT 4.45MG TAB Medication indication: Somnolence/fatigue due to obstructive sleep apnea Medical history relevant to this request: 82 y/o [place] with somnolence/fatigue due to NELLY. Provider preference to avoid armodafinil/modafinil or other stimulants due to hypertension, abdominal aortic aneurysm and cardiovascular risk in this [place] who is already on bupropion SR 200mg with minimal benefit. SERUM Sep 01 Reference 2023 10:29 Units Ranges GLUCOSE 135 H mg/dL 65 - 100 BUN 10 mg/dL 7 - 25 CREATININE 0.73 mg/dL .5 - 1.4 Sodium 138 mmol/L 135 - 145 K+/Pot 3.9 mmol/L 3.5 - 5 CL 101 mmol/L 100 - 110 CO2 27 mEq/L 20 - 30 T. PROT 6.9 g/dL 6 - 8.3 ALBUMIN 3.8 g/dL 3.5 - 5 T BILI 0.5 mg/dL .2 - 1.2 AST 14 U/L 5 - 34 ALT 13 U/L <6 - 55 ALK CLEO 91 U/L 40 - 150 Exclusion Criteria If the answer to ANY item below is met, then the patient should NOT receive pitolisant: [ ] Excessive daytime sleepiness associated with NELLY not receiving primary therapy (e.g., CPAP) [ ] Severe hepatic impairment (e.g., Child-Rogers C) [ ] Known hypersensitivity to pitolisant [ ] Receiving a drug known to prolong the QT interval [ ] End-stage renal disease (e.g., eGFR < 15 ml/min) [ ] Patient with known QT prolongation [ ] Symptomatic bradycardia [ ] Hypokalemia [ ] Hypomagnesemia [ ] Receiving a centrally acting histamine-1 receptor antagonist Inclusion Criteria The answers to ALL of the following must be fulfilled in order to meet criteria: [NOT DEFINED] Treatment of excessive daytime sleepiness (EDS) OR cataplexy associated with narcolepsy Jud Sleepiness Scale (EES) is > 14 [X] Documented lack of efficacy with, is intolerant of, or has contraindications to modafinil OR armodafinil [PENDING] Prescribed and monitored by a [place] Community Care sleep specialist / fruit checker /neurologist or locally designated expert in sleep disorders The request does not meet criteria - Compelling evidence for the requested indication is lacking Comment: Does not meet CFU Sleep consult is pending. Please feel free to resubmit this consult upon completion and posting in the record. Thank you! /reginaldo/ SHIRA ROQUE RPH, PHARMD CLINICAL ECO INDUSTRIAL DEVELOPMENT CONSULTANT Signed: 09/15/2023 15:45 09/18/2023 ADDENDUM STATUS: COMPLETED T/C to OP Pharmacist about Pitolisant needing signature of Dr. Leyva who is not here for a week or so. The Pharmacist stated it is okay to leave the order unsigned until she returns as it is cancelled already and it will not be acted upon until Dr. Leyva returns and evaluates. /reginaldo/ DEION SR, RN,MSN,PSYCH N.P., STAFF CLINICAL NURSE SPECIALIST Signed: 09/18/2023 15:07 [facility] RO[facility]
--- OUTSIDE RECORDS SUMMARY | 2024-08-16 09:31 | XMS_ITS | Encounter Summary ---
Author Name [facility] [place] [facility] [place] Address [address] [place] [address] Care Team Providers Care Radio Repair Teacher Name Role Phone TRACY CARRILLO Primary [...] PHI MEDEX BRONZ E December 19, 2013 [id number] [phone] GUSTAVO ARAMBULA SR PATIENT [employer] MEDICARE SUPPLEMEN PHI MEDIC ARE SUPPL EMENT Jul 21, 2007 NONE [id number] Edgar ARAMBULA [place]IENT [place] MED[place] SUPPLEMEN PHI MEDEX BRONZ E December 19, 2013 [id number] GUSTAVO ARAMBULA SR PATIENT [place] OF [place] MEDICARE SUPPLEMEN PHI MEDEX BRONZ E December 19, 2013 [id number] Edgar ARAMBULA PATIENT MEDICARE (WNR) MEDICARE () PART A Oct 19, 2004 PART A [id number] [phone] Edgar ARAMBULAN PATIENT MEDICARE (WNR) MEDICARE () PART B Oct 19, 2004 PART B [id number] [phone] Edgar ARAMBULA [place] PATIENT MEDICARE (WNR) MEDICARE () PART A Oct 19, 2004 PART A [id number] [phone] Edgar ARAMBULAN PATIENT MEDICARE (WNR) MEDICARE () PART B Oct 19, 2004 PART B [id number] Edgar ARAMBULAN PATIENT MEDICARE (WNR) MEDICARE () PART A Oct 19, 2004 PART A [id number] Edgar ARAMBULA [place] PATIENT MEDICARE (WNR) MEDICARE () PART B Oct 19, 2004 PART B [id number] Edgar ARAMBULAN PATIENT MEDICARE (WNR) MEDICARE () PART A Oct 19, 2004 PART A [id number] Edgar ARAMBULA PATIENT MEDICARE (WNR) MEDICARE () PART A Oct 19, 2004 PART A [id number] [phone] Edgar ARAMBULAN PATIENT MEDICARE (WNR) MEDICARE () PART B Oct 19, 2004 PART B [id number] [phone] Edgar ARAMBULAN PATIENT MEDICARE (WNR) MEDICARE () PART B Oct 19, 2004 PART B [id number] Edgar ARAMBULAN PATIENT Selected Encounter This section includes the information on record at [place] for the Encounter. Date/Time Encounter Type Encounter Description Reason Pro vider Source Sep 19, 2023 11:25 AM Outpatient Encounter PRIMARY CARE/MEDICINE IHE Encounter [...] 20 appointments. The data comes from all [facility]. Appointment Date/Time Appointment Type Appointme nt Facility Name Sep 25, 2023 10:30 AM AMBULATORY - MEDICINE [facility] Sep 26, 2023 08:27 AM AMBULATORY - NONE [facility] [place] [facility] Sep 26, 2023 12:00 PM AMBULATORY - MEDICINE [place] [facility] [place] [facility] Oct 16, 2023 09:00 AM AMBULATORY - MEDICINE [place] [facility] [place] [facility] Nov 06, 2023 09:30 AM AMBULATORY - MEDICINE [place] [facility] [place] [facility] December 21, 2023 09:00 AM AMBULATORY - PSYCHIATRY [facility] [place] [facility] December 25, 2023 09:00 AM AMBULATORY - MEDICINE [facility] Feb 05, 2024 10:00 AM AMBULATORY - MEDICINE [place] [facility] [place] [facility] Feb 13, 2024 11:30 AM AMBULATORY - MEDICINE [facility] Feb 15, 2024 09:00 AM AMBULATORY - PSYCHIATRY [place] [facility] [place] [facility] Feb 15, 2024 09:45 AM AMBULATORY - NONE [facility] [place] [facility] Mar 07, 2024 09:00 AM AMBULATORY - PSYCHIATRY [facility] [place] [facility] Mar 08, 2024 08:30 AM AMBULATORY - NONE [place] [facility] [place] [facility] Mar 11, 2024 09:00 AM AMBULATORY - MEDICINE [facility] Active, Pending, and Scheduled Orders This section includes a listing of several types of active, pending, and scheduled orders, including clinic medications orders, diagnostic test orders, procedure orders and consult orders; where the start date of the order is 45 days before the date of the Encounter or 45 days after the date of theEncounter. The data comes from all [facility]. Test Date/Time Test Type Test Details Facility Name Sep 05, 2023 12:00 AM Laboratory - Chemi stry Order OCCULT BLOOD FIT X1 SCREEN(IN-HOUSE) STOOL FECES SP [facility] [place] [facility] Sep 26, 2023 09:55 AM Consult Order [facility] GENERAL Cons Medical Engineer's Choice [place] Lab Results: +/- 30 days of the [...] Range Comment Sep 05, 2023 10:56 AM [facility] FERRITIN Specimen Type: SERUM No comment entered. Ordering Provider: YOAN CHILDS Report Released Date/Time: Sep 05, 2023 10:30 AM Reporting Lab: [facility] [address] Performing Lab: [facility] [address] FERRITIN 25 ng/mL 20-300 Sep 05, 2023 10:56 AM [facility] IRON & TIBC PANEL Specimen Type: SERUM No comment entered. Ordering Provider: YOAN CHILDS Report Released Date/Time: Sep 05, 2023 10:30 AM Reporting Lab: [facility]ENTERUSETS [address] [address] Performing Lab: [facility] [address] TIBC 401 ug/dL 204-475 IRON 53 ug/dL 40-160 Transferrin Saturation 13.2 L 20.0-50.0 Sep 05, 2023 10:56 AM [facility] CBC AND DIFF (AUTO) Specimen Type: BLOOD No comment entered. Ordering Provider: YOAN CHILDS Report Released Date/Time: Sep 05, 2023 10:30 AM Reporting Lab: [facility]ENTERUSETS [address] [address] Performing Lab: [facility] [address] [address] WBC 5.66 10*3/uL 4.50-11.00 RBC 4.25 10*6/uL 4.23-5.66 HGB 12.1 g/dL L 12.8-17 HCT 35.5 L 39.2-50.4 MCV 83.5 fL 82-99 MCHC 34.1 g/dL 30.8-35.1 PLT 295 10*3/uL 140-360 RDW-CV 12.0 12.0-16.0 Dunn, Abs 0.59 10*3/uL 0.30-1.10 MCH 28.5 pg 26.2-32.6 Neut % 56.3 43.7-75.8 Lymph % 27.2 14.0-42.3 Dunn % 10.4 5.1-13.7 Eos % 4.1 0.4-6.8 Baso % 1.6 0.1-2.0 Neut, Abs 3.19 10*3/uL 2.20-7.60 Lymph, Abs 1.54 10*3/uL 1.00-3.20 Eos, Abs 0.23 10*3/uL 0.03-0.44 Baso, Abs 0.09 10*3/uL 0.01-0.13 Immature Gran % 0.4 0.0-0.7 Immature Gran, Abs 0.02 10*3/uL 0.00-0.06 Sep 01, 2023 10:29 AM [facility] LIPID PANEL FASTING Specimen Type: SERUM No comment entered. Ordering Provider: YULY AUSTIN Report Released Date/Time: Aug 17, 2023 08:25 AM Reporting Lab: [facility] [address] [facility] [address] Performing Lab: [address] [address] CHOLESTEROL 133 mg/dL TRIGLYCERIDE 73 mg/dL 0-150 LDL calculated 75 mg/dL 0-129 CHOL/HDL 3.1 HDL CHOLESTEROL 43 mg/dL 40-60 Sep 01, 2023 10:29 AM [facility] BASIC METABOLIC PANEL (fasting) Specimen Type: SERUM No comment entered. Ordering Provider: YULY AUSTIN Report Released Date/Time: Aug 17, 2023 08:25 AM Reporting Lab: [facility] [address] [facility] [address] Performing Lab: [address] [address] UREA NITROGEN 10 mg/dL 7-25 GLUCOSE 135 mg/dL H 65-100 SODIUM 138 mmol/L 135-145 POTASSIUM 3.9 mmol/L 3.5-5.0 CHLORIDE 101 mmol/L 100-110 CO2 27 meq/L 20-30 CREATININE, Serum 0.73 mg/dL 0.50-1.40 eGFR(CKD-EPI 2020) 90 mL/min >60 Sep 01, 2023 10:29 AM [facility] HEMOGLOBIN A1C PANEL Specimen Type: BLOOD [...] Aug 17, 2023 08:25 AM Reporting Lab: [facility] [address] [facility] [address] Performing Lab: [address] [address] HEMOGLOBIN A1C 6.7 H 4.0-5.6 Sep 01, 2023 10:29 AM [facility] LIVER FUNCTION Specimen Type: SERUM No comment entered. Ordering Provider: YULY AUSTIN Report Released Date/Time: Aug 17, 2023 08:25 AM Reporting Lab: [facility] [address] [facility] [address] Performing Lab: [address] [address] PROTEIN,TOTAL 6.9 g/dL 6.0-8.3 ALBUMIN 3.8 g/dL 3.5-5.0 ALKALINE PHOSPHATASE 91 U/L 40-150 AST 14 U/L 5-34 ALT 13 U/L BILIRUBIN, TOTAL 0.5 mg/dL 0.2-1.2 Sep 01, 2023 10:29 AM [facility] MICROALBUMIN CREATININE RATIO PANEL Specimen Type: URINE No comment entered. Ordering Provider: YULY AUSTIN Report Released Date/Time: Aug 17, 2023 08:25 AM Reporting Lab: [facility] [address] [facility] [address] Performing Lab: [facility] [address] [facility] [address] MICROALBUMIN/C REATININE RATIO 9.0 mg/g 0-29.9 MICROALBUMIN,Q UANTITATIVE 1.0 mg/dL RR UNAVAIL CREATININE URINE 110.79 mg/dL Sep 01, 2023 10:29 AM [facility] CBC AND DIFF (AUTO) Specimen Type: BLOOD No comment entered. Ordering Provider: YULY AUSTIN Report Released Date/Time: Aug 17, 2023 08:25 AM Reporting Lab: [facility] [address] [facility] [address] Performing Lab: [facility] [address] [facility] [address] WBC 8.35 10*3/uL 4.50-11.00 RBC 4.17 10*6/uL L 4.23-5.66 HGB 12.0 g/dL L 12.8-17 HCT 35.3 L 39.2-50.4 MCV 84.7 fL 82-99 MCHC 34.0 g/dL 30.8-35.1 PLT 305 10*3/uL 140-360 RDW-CV 12.3 12.0-16.0 Dunn, Abs 0.71 10*3/uL 0.30-1.10 MCH 28.8 pg 26.2-32.6 Neut % 66.3 43.7-75.8 Lymph % 20.8 14.0-42.3 Dunn % 8.5 5.1-13.7 Eos % 3.0 0.4-6.8 [...] took place. Date/Time Current Smoking Status Comment [facility] Dec 13, 2022 03:00 PM VA-TOBACCO USER EVERY DAY [facility] [place] [facility] Tobacco Use History This section includes a history of the smoking, or tobacco-related health factors, that were collected on or before the date of the Encounter. The data comes from the [place] facility where the Encounter took place. Date/Time Smoking Status/Tobac co Use Comment Facility Dec 13, 2022 03:00 PM VA-TOBACCO USE 30 YEARS OR MORE [facility] [place] [facility] Dec 13, 2022 03:00 PM VA-TOBACCO USE ADVICE [facility] [place] [facility] Dec 13, 2022 03:00 PM VA-TOBACCO USE OUTPATIENT SURGERY RN NO [facility] [place] [facility] Dec 13, 2022 03:00 PM VA-TOBACCO USE MED NO [facility] [place] [facility] Dec 13, 2022 03:00 PM VA-TOBACCO USER EVERY DAY [facility] [place] [facility] Nov 17, 2021 10:00 AM VA-TOBACCO USE 30 YEARS OR MORE [facility] [place] [facility] Nov 17, 2021 10:00 AM VA-TOBACCO USE ADVICE [facility] [place] [facility] Nov 17, 2021 10:00 AM VA-TOBACCO USE OUTPATIENT SURGERY RN NO [facility] [place] [facility] Nov 17, 2021 10:00 AM VA-TOBACCO USE MED NO [facility] Nov 17, 2021 10:00 AM VA-TOBACCO USE [place] 30 MIN OF [facility] Nov 17, 2021 10:00 AM VA-TOBACCO USER EVERY DAY [facility] Oct 14, 2013 12:55 PM V1-PT NOT INTERESTED IN QUIT TOBACCO USE [facility] May 07, 2013 05:04 PM CURRENT SMOKER trying to stop [facility] May 07, 2013 05:04 PM V1-PT DECLINES REF TO TOBACCO CESS [facility] May 07, 2013 05:04 PM V1-PT DECLINES TOBACCO CESSATION MEDS [facility] May 07, 2013 05:04 PM V1-PT READY TO QUIT TOBACCO USE [facility] Dec 03, 2012 08:23 AM V1-PT DECLINES REF TO TOBACCO CESS [facility] Dec 03, 2012 08:23 AM V1-PT DECLINES TOBACCO CESSATION [facility] Dec 03, 2012 08:23 AM V1-PT THINKING ABOUT QUIT TOBACCO USE [facility] Jun 05, 2012 08:45 AM CURRENT SMOKER 1/2ppd [facility] Jun 05, 2012 08:45 AM V1-PT DECLINES REF TO TOBACCO CESS [facility] Jun 05, 2012 08:45 AM V1-PT THINKING ABOUT QUIT TOBACCO USE [facility] Jun 05, 2012 08:45 AM V1-TOBACCO CESS MEDS NOT PRESCRIBED Vet wants to talk to his provider-He is nervous about taking meds to quit- but he is interested in quitting [facility] Nov 25, 2011 09:14 AM V1-PT DECLINES REF TO TOBACCO CESS [facility] Nov 25, 2011 09:14 AM V1-PT DECLINES TOBACCO CESSATION [facility] Nov 25, 2011 09:14 AM V1-PT THINKING ABOUT QUIT TOBACCO USE [facility] [place] [facility] May 06, 2011 01:02 PM CURRENT SMOKER [facility] [place] [facility] May 06, 2011 01:02 PM V1-PT DECLINES TOBACCO CESSATION MEDS [facility] [place] [facility] May 06, 2011 01:02 PM V1-PT NOT INTERESTED IN QUIT TOBACCO USE [facility] [place] [facility] Sep 24, 2010 08:51 AM V1-PT DECLINES TOBACCO CESSATION MEDS [facility] [place] [facility] Sep 24, 2010 08:51 AM V1-PT THINKING ABOUT QUIT TOBACCO USE [facility] [place] [facility] Mar 22, 2010 07:58 AM CURRENT SMOKER 1/2 ppd [facility] [place] [facility] Feb 25, 2009 12:05 PM QUIT TOBACCO USE IN PAST YEAR [facility] [place] [facility] Aug 26, 2008 09:28 AM CURRENT SMOKER 1/2 ppd [facility] [place] [facility] Aug 26, 2008 09:28 AM V1-PT DECLINES REF TO TOBACCO CESS [facility] [place] [facility] Aug 26, 2008 09:28 AM V1-PT READY TO QUIT TOBACCO USE [facility] [place] [facility] Dec 19, 2007 10:08 AM V1-PT DECLINES REF TO TOBACCO CESS [facility] [place] [facility] Dec 19, 2007 10:08 AM V1-PT DECLINES TOBACCO CESSATION [facility] [place] [facility] Dec 19, 2007 10:08 AM V1-PT THINKING ABOUT QUIT TOBACCO USE [facility] [place] [facility] Sep 11, 2007 11:10 AM CURRENT SMOKER [facility] [place] [facility] Sep 11, 2007 11:10 AM V1-PT DECLINES REF TO TOBACCO CESS [facility] [place] [facility] Sep 11, 2007 11:10 AM V1-PT DECLINES TOBACCO CESSATION MEDS [facility] [place] [facility] Sep 11, 2007 11:10 AM V1-PT THINKING ABOUT QUIT [facility]ACCO [facility] [place] [facility] Feb 13, 2007 01:46 PM V1-PT DECLINES REF TO TOBACCO CESS [facility] Feb 13, 2007 01:46 PM V1-PT DECLINES TOBACCO CESSATION [facility] Feb 13, 2007 01:46 PM V1-PT THINKING ABOUT QUIT TOBACCO USE [facility] Oct 02, 2006 08:28 AM QUIT TOBACCO USE IN PAST YEAR 3 months ago [facility] Aug 19, 2005 08:33 AM QUIT TOBACCO USE IN PAST YEAR nonsmoker [facility] Sep 21, 2004 09:54 AM CURRENT SMOKER [facility] Sep 07, 2004 08:07 AM CURRENT SMOKER [facility] Sep 15, 2003 11:21 AM CURRENT SMOKER smokes one pk day [facility] Jul 23, 2003 01:57 PM CURRENT SMOKER [facility] Advance Directives: All historical and current [...] Apr 10, 2023 ADVANCE DIRECTIVE CARLOSESSIE STUBBS [facility] Apr 19, 2007 ADVANCE DIRECTIVE VICTORIA JOHNSON [facility] Radiology Reports: +/- 30 days [...] Loc: CWM/SO/PACT 7 (Req'g Loc) Img Loc: [facility] Service: Unknown (Case [id number] COMPLETE) SPINE LUMBOSACRAL MIN 2 VIEWS (RAD Detailed) CPT:79687 Reason for Study: lumbar pain Clinical History: 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, fellow, ANESTHESIOLOGIST or attending: Tracy Carrillo NP [facility] Pager: [phone] Backup pager: History: chronic lumbar spine pain Report Status: Verified Date Reported: SEP 26, 2023 Date Verified: SEP 26, 2023 Tip Puncher E-Sig:/ES/CHERYLE GUZMAN JR Report: Study: AP, lateral [...] Primary Interpreting Staff: CHERYLE GUZMAN JR, Radiologist (Tip Puncher) /CHERYLE VALENCIA JR [facility] [place] [facility] Sep 26, 2023 08:32 AM HIP 2-3 VIEWS (RIGHT) WITH OR WITHOUT PELVIS: GUSTAVO ARAMBULA [id number] -1940 M Exm Date: SEP 26, 2023@08:32 Req Phys: TRACY CARRILLO Pat Loc: CWM/SO/PACT 7 (Req'g Loc) Img Loc: [facility] 1 Service: Unknown (Case [id number] COMPLETE) HIP 2-3 VIEWS (RIGHT) WITH OR WIT(RAD Detailed) CPT:88388 CPT Modifiers : RT RIGHT SIDE Reason for Study: hip pain Clinical History: 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, fellow, ANESTHESIOLOGIST or attending: Tracy Carrillo NP [place] Pager: [phone] Backup pager: History: chronic right hip pain, hx CAROL ANN Report Status: Verified Date Reported: SEP 26, 2023 Date Verified: SEP 26, 2023 Tip Puncher E-Sig:/ES/CHERYLE GUZMAN JR Report: Study: AP view [...] Primary Interpreting Staff: CHERYLE GUZMAN JR, Radiologist (Tip Puncher) /CHERYLE VALENCIA JR [facility] Sep 05, 2023 11:05 AM HIP 2-3 VIEWS(LEFT) WITH OR WITHOUT PELVIS: GUSTAVO ARAMBULA -1940 M [facility] Date: SEP 05, 2023@11:05 Req Phys: DANIELE CHILDS Pat Loc: CWM/NO/PACT/FIRM ANESTHESIOLOGIST (Req'g Loc Img Loc: [facility] 1 Service: Unknown (Case 18 COMPLETE) HIP 2-3 VIEWS(LEFT) WITH OR WITHO(RAD Detailed) CPT:88860 Proc Modifiers : LEFT CPT Modifiers : LT LEFT SIDE Reason for Study: chronic left hip pain Clinical History: Report Status: Verified Date Reported: SEP 05, 2023 Date Verified: SEP 05, 2023 Tip Puncher E-Sig:/ES/CHERYLE GUZMAN JR Report: Study: AP view [...] Primary Interpreting Staff: CHERYLE GUZMAN JR, Radiologist (Tip Puncher) /CHERYLE VALENCIA JR [facility] Encounter Notes: All associated encounter notes This section contains the clinical notes associated to the Encounter. Date/Time Encounter Note(s) Provider Source Sep 19, 2023 02:29 PM ADDENDUM: LOCAL TITLE: Addendum STANDARD TITLE: ADDENDUM DATE OF NOTE: SEP 19, 2023@14:29:13 ENTRY DATE: SEP 19, 2023@14:29:15 AUTHOR: LATESHA ISAAC EXP COSIGNER: URGENCY: STATUS: COMPLETED forwarding to prescriber. /reginaldo/ KAPIL COLLIER,RN-BC REGISTERED NURSE (RN) Signed: 09/19/2023 14:29 Receipt Acknowledged By: 09/19/2023 22:14 /reginaldo/ YULY AUSTIN MD STAFF PHYSICIAN ====== --- Original Document --- 09/19/23 WALK-IN NOTE PRIMARY CARE (T): <====Click to Start Advanced Medical Support Geraldine presents to the Primary Care clinic with the following request: [ X ]Medication Renewal/Refill [ ]Consultation with Team RN [ ]Symptoms [ ]Other The states they are: [ ]Waiting [ X ]Not Waiting No Walk in visit scheduled with PACT Nurse [ X ] At this encounter the Geraldine's demographics were verified. [ X ] At this encounter the 's Insurance information was verified. [ ] At this encounter the below scheduled visits for the Geraldine were discussed and appointment reminder card was offered. Future appointments: 09/25/2023 10:30 CWM/SO/PACT 7 09/26/2023 10:30 CWM/NO/HYPNOSIS 10/16/2023 09:00 COM CARE-OTHER 11/06/2023 09:30 CWM/NO/VVC/PAIN [facility] CLIN[facility] 11/14/2023 10:00 CWM/NO/MHC/BERNADINE 1 walked into clinic requesting for renewal OXYCODONE HCL NOT SA TAB 5MG Advised of 72 hour wait per policy,will chart picker from [facility] /reginaldo/ RABIA MANN ADVANCED PAINTER CHASSIS Signed: 09/19/2023 11:30 Receipt Acknowledged By: * AWAITING SIGNATURE * MARCUS DOZIER 09/19/2023 14:29 /reginaldo/ KAPIL COLLIER,RN-BC REGISTERED NURSE (RN) 09/19/2023 ADDENDUM STATUS: COMPLETED PACT 7 has never seen thi . /reginaldo/ KAPIL COLLIER,RN-BC REGISTERED NURSE (RN) Signed: 09/19/2023 14:30 LATESHA ISAAC [place] [facility] [place] [facility] Sep 19, 2023 11:25 AM PRIMARY CARE NOTE: LOCAL TITLE: WALK-IN NOTE PRIMARY CARE (T) STANDARD TITLE: PRIMARY CARE NOTE DATE OF NOTE: SEP 19, 2023@11:25 ENTRY DATE: SEP 19, 2023@11:25:49 AUTHOR: RABIA MANN EXP COSIGNER: URGENCY: STATUS: COMPLETED WALK-IN NOTE PRIMARY CARE (T) Has ADDENDA <====Click to Start Advanced Medical Support Geraldine presents to the Primary Care clinic with the following request: [ X ]Medication Renewal/Refill [ ]Consultation with Team RN [ ]Symptoms [ ]Other The states they are: [ ]Waiting [ X ]Not Waiting No Walk in visit scheduled with PACT Nurse [ X ] At this encounter the Geraldine's demographics were verified. [ X ] At this encounter the 's Insurance information was verified. [ ] At this encounter the below scheduled visits for the were discussed and appointment reminder card was offered. Future appointments: 09/25/2023 10:30 CWM/SO/PACT 7 09/26/2023 10:30 CWM/NO/HYPNOSIS 10/16/2023 09:00 COM CARE-OTHER 11/06/2023 09:30 CWM/NO/VVC/PAIN MD CLINIC 11/14/2023 10:00 CWM/NO/MHC/BERNADINE 1 Geraldine walked into clinic requesting for renewal OXYCODONE HCL NOT SA TAB 5MG Advised of 72 hour wait per policy,will chart picker from [facility] /reginaldo/ RABIA MANN ADVANCED PAINTER CHASSIS Signed: 09/19/2023 11:30 Receipt Acknowledged By: 09/20/2023 08:15 /es/ MARCUS DOZIER LPN LPN 09/19/2023 14:29 /es/ KAPIL COLLIER,RN-BC REGISTERED NURSE (RN) 09/19/2023 ADDENDUM STATUS: COMPLETED forwarding to prescriber. /reginadlo/ AKPIL COLLIER,RN-BC REGISTERED NURSE (RN) Signed: 09/19/2023 14:29 Receipt Acknowledged By: 09/19/2023 22:14 /es/ YULY AUSTIN MD STAFF PHYSICIAN 09/19/2023 ADDENDUM STATUS: COMPLETED PACT 7 has never seen thi . /reginaldo/ KAPIL COLLIER,RN-BC REGISTERED NURSE (RN) Signed: 09/19/2023 14:30 RABIA MANN [facility]
--- OUTSIDE RECORDS SUMMARY | 2024-08-16 09:31 | XMS_ITS | Encounter Summary ---
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 Electrical Engineer Name Role Phone KAYTRACY HERR Primary Care Provider Unavailabl e Insurance Providers: [...] PHI MEDEX BRONZ E December 19, 2013 [id number] GUSTAVO ARAMBULA SR PATIENT [employer] MEDICARE SUPPLEMEN PHI MEDIC ARE SUPPL EMENT Jul 21, 2007 NONE [id number] [phone] Edgar ARAMBULA PATIENT [place] MED[place] SUPPLEMEN PHI MEDEX BRONZ E December 19, 2013 [id number] [phone] GUSTAVO ARAMBULA SR PATIENT [place] MEDICARE SUPPLEMEN PHI MEDEX BRONZ E December 19, 2013 [id number] [phone] FILEMONEEdgar [place] PAT[place]IC[place] (WNR) MEDICARE (M) PART A Oct 19, 2004 PART A [id number] FILEMONEEdgar [place] PAT[place]) MEDICARE (M) PART B Oct 19, 2004 PART B [id number] [phone] FILEMONEEdgar [place] PAT[place]IC[place] ([place]) MEDICARE (M) PART A Oct 19, 2004 PART A [id number] [phone] SEVABIEEdgar [place] PAT[place] ([place]) MEDICARE (M) PART B Oct 19, 2004 PART B [id number] FILEMONEEdgar [place] PAT[place]) MEDICARE (M) PART A Oct 19, 2004 PART A [id number] SEVIGNEEdgar [place] PAT[place] ([place]) MEDICARE () PART B Oct 19, 2004 PART B [id number] [phone] SEVABIEEdgar [place] PAT[place] ([place]) MEDICARE () PART A Oct 19, 2004 PART A [id number] Edgar ARAMBULA [place] PAT[place]) MEDICARE () PART B Oct 19, 2004 PART B [id number] [phone] SEVIGNEEdgar [place] PAT[place]) MEDICARE () PART A Oct 19, 2004 PART A [id number] SEVEdgar VIVAR [place] PAT[place]) MEDICARE (M) PART B Oct 19, 2004 PART B [id number] SEVABIEEdgar [place] PATIENT Selected Encounter This section includes the information on record at [place] for the Encounter. Date/Time Encounter Type Encounter Description Reason Provider Source Aug 22, 2023 11:01 AM QNHP OL DIG ASSMT&MGMT 5-10 CLINICAL PHARMACY ICD-10-CM Z04.89 Encounter for examination and observation for oth reasons HILARIA RIBEIRO Encounter Template Text not used by [place] Assessments - Encounter Diagnoses This section includes the primary and secondary diagnoses documented for the Encounter. Date/Time Primary/Secondary Diagnosis Diagnosis Name Provider Source Aug 22, 2023 11:04 AM PRIMARY Encounter for examination and observation for oth reasons HILARIA RIBEIRO [facility] ([id number]) Plan of Treatment: Future Appointments (+ 6 [...] 05, 2023 10:00 AM AM[facility]ULATORY [facility] [place] [facility] Sep 05, 2023 11:30 AM AMBULATORY - NONE [facility] [place] [facility] Sep 11, 2023 08:45 AM AMBULATORY [facility]IC[facility] [place] [facility] Sep 12, 2023 10:00 AM AMBULATORY - PSYCHIATRY [facility] [place] [facility] Sep 25, 2023 10:30 AM [facility]ORY [facility] MEDICINE [facility] Sep 26, 2023 08:27 AM AMBULATORY - NONE [facility] [place] [facility] Sep 26, 2023 12:00 PM AMBULATORY - MEDICINE [facility] [place] [facility] Oct 16, 2023 09:00 AM AMBULATORY - MEDICINE [facility] [place] [facility] Nov 06, 2023 09:30 AM AMBULATORY - MEDICINE [facility] [place] [facility] December 21, 2023 09:00 AM AMBULATORY - PSYCHIATRY [facility] [place] [facility] December 25, 2023 09:00 AM [facility]ATORY - MEDICINE [facility] Feb 05, 2024 10:00 AM AMBULATORY [facility] MEDICINE [facility] [place] [facility] Feb 13, 2024 11:30 [facility] Feb 15, 2024 09:00 AM AM[facility]ULATORY - PS[facility]CHIATRY [facility] [place] [facility] Feb 15, 2024 09:45 AM AMBULATORY - NONE [facility] [place] [facility] Active, Pending, and Scheduled Orders This section includes a listing of several types of active, pending, and scheduled orders, including clinic medications orders, diagnostic test orders, procedure orders and consult orders; where the start date of the order is 45 days before the date of the Encounter or 45 days after the date of theEncounter. The data comes from all [place] treatment facilities. Test Date/Time Test Type Test Details Facility Name Sep 05, 2023 12:00 AM Laboratory - Chemi stry Order OCCULT BLOOD FIT X1 SCREEN(IN-HOUSE) STOOL FECES SP [facility] Sep 26, 2023 09:55 AM Consult Order [facility] Specialist[facility] Lab Results: +/- 30 days of the encounter This section includes the Chemistry and Hematology Lab Results on record with [place] for the patient. Radiology Reports and Pathology Reports are provided separately, in subsequent sections. Lab Results This section contains the Chemistry/Hematology Results that were resulted 30 days before or 30 daysafter the date of the Encounter. Date/Time Source Result Type Result - Unit Interpretation Reference Range Comment Sep 05, 2023 10:56 AM [facility] FERRITIN Specimen Type: SERUM No comment entered. Ordering Provider: YOAN CHILDS Report Released Date/Time: Sep 05, 2023 10:30 AM Reporting Lab: [facility] [address] [address] Performing Lab: [address] [address] FERRITIN 25 ng/mL 20-300 Sep 05, 2023 10:56 AM [facility] IRON & TIBC PANEL Specimen Type: SERUM No comment entered. Ordering Provider: YOAN CHILDS Report Released Date/Time: Sep 05, 2023 10:30 AM Reporting Lab: [facility] [address] [address] [address] Performing Lab: [facility] [address] [address] TIBC 401 ug/dL 204-475 IRON 53 ug/dL 40-160 Transferrin Saturation 13.2 L 20.0-50.0 Sep 05, 2023 10:56 AM [facility] CBC AND DIFF (AUTO) Specimen Type: BLOOD No comment entered. Ordering Provider: YOAN CHILDS Report Released Date/Time: Sep 05, 2023 10:30 AM Reporting Lab: [facility] [address] [address] [address] Performing Lab: [address] [address] WBC 5.66 10*3/uL 4.50-11.00 RBC 4.25 10*6/uL 4.23-5.66 HGB 12.1 g/dL L 12.8-17 HCT 35.5 L 39.2-50.4 MCV 83.5 fL 82-99 MCHC 34.1 g/dL 30.8-35.1 PLT 295 10*3/uL 140-360 RDW-CV 12.0 12.0-16.0 Angelina, Abs 0.59 10*3/uL 0.30-1.10 MCH 28.5 pg 26.2-32.6 Neut % 56.3 43.7-75.8 Lymph % 27.2 14.0-42.3 Angelina % 10.4 5.1-13.7 Eos % 4.1 0.4-6.8 Baso % 1.6 0.1-2.0 Neut, Abs 3.19 10*3/uL 2.20-7.60 Lymph, Abs 1.54 10*3/uL 1.00-3.20 Eos, Abs 0.23 10*3/uL 0.03-0.44 Baso, Abs 0.09 10*3/uL 0.01-0.13 Immature Gran % 0.4 0.0-0.7 Immature Gran, Abs 0.02 10*3/uL 0.00-0.06 Sep 01, 2023 10:29 AM [facility] LIPID PANEL FASTING Specimen Type: SERUM No comment entered. Ordering Provider: YULY AUSTIN Report Released Date/Time: Aug 17, 2023 08:25 AM Reporting Lab: [facility] [address] [address] Performing Lab: [facility] [address] [address] [address] CHOLESTEROL 133 mg/dL TRIGLYCERIDE 73 mg/dL 0-150 LDL calculated 75 mg/dL 0-129 CHOL/HDL 3.1 HDL CHOLESTEROL 43 mg/dL 40-60 Sep 01, 2023 10:29 AM [facility] HEMOGLOBIN A1C PANEL Specimen Type: BLOOD [...] Aug 17, 2023 08:25 AM Reporting Lab: [address] [address] Performing Lab: [address] [address] HEMOGLOBIN A1C 6.7 H 4.0-5.6 Sep 01, 2023 10:29 AM [facility] BASIC METABOLIC PANEL (fasting) Specimen Type: SERUM No comment entered. Ordering Provider: YULY AUSTIN Report Released Date/Time: Aug 17, 2023 08:25 AM Reporting Lab: [address] [address] Performing Lab: [address] [address] UREA NITROGEN 10 mg/dL 7-25 GLUCOSE 135 mg/dL H 65-100 SODIUM 138 mmol/L 135-145 POTASSIUM 3.9 mmol/L 3.5-5.0 CHLORIDE 101 mmol/L 100-110 CO2 27 meq/L 20-30 CREATININE, Serum 0.73 mg/dL 0.50-1.40 eGFR(CKD-EPI 2020) 90 mL/min >60 Sep 01, 2023 10:29 AM [facility] LIVER FUNCTION Specimen Type: SERUM No comment entered. Ordering Provider: YULY AUSTIN Report Released Date/Time: Aug 17, 2023 08:25 AM Reporting [facility] [address] [address] [address] Performing [facility]: [facility] [address] [address] PROTEIN,TOTAL 6.9 g/dL 6.0-8.3 ALBUMIN 3.8 g/dL 3.5-5.0 ALKALINE PHOSPHATASE 91 U/L 40-150 AST 14 U/L 5-34 ALT 13 U/L BILIRUBIN, TOTAL 0.5 mg/dL 0.2-1.2 Sep 01, 2023 10:29 AM [facility] MICROALBUMIN CREATININE RATIO PANEL Specimen Type: URINE No comment entered. Ordering Provider: YULY AUSTIN Report Released Date/Time: Aug 17, 2023 08:25 AM Reporting [facility] [address] [address] Performing [facility] [address] [address] [address] MICROALBUMIN/C REATININE RATIO 9.0 mg/g 0-29.9 MICROALBUMIN,Q UANTITATIVE 1.0 mg/dL RR UNAVAIL CREATININE URINE 110.79 mg/dL Sep 01, 2023 10:29 AM [facility] CBC AND DIFF (AUTO) Specimen Type: BLOOD No comment entered. Ordering Provider: YULY AUSTIN Report Released Date/Time: Aug 17, 2023 08:25 AM Reporting Lab: [facility] [address] [address] Performing Lab: [facility] [address] WBC 8.35 10*3/uL 4.50-11.00 RBC 4.17 10*6/uL L 4.23-5.66 HGB 12.0 g/dL L 12.8-17 HCT 35.3 L 39.2-50.4 MCV 84.7 fL 82-99 MCHC 34.0 g/dL 30.8-35.1 PLT 305 10*3/uL 140-360 RDW-CV 12.3 12.0-16.0 Angelina, Abs 0.71 10*3/uL 0.30-1.10 MCH 28.8 pg 26.2-32.6 Neut % 66.3 43.7-75.8 Lymph % 20.8 14.0-42.3 Angelina % 8.5 5.1-13.7 Eos % 3.0 0.4-6.8 [...] Source Apr 10, 2023 ADVANCE DIRECTIVE [place] [facility] Apr 19, 2007 ADVANCE DIRECTIVE VICTORIA JOHNSON [facility] Radiology Reports: [...] ) WITH OR WITHOUT PELVIS: GUSTAVO ARAMBULA -1940 M Exm Date: SEP 05, 2023@11:05 Req Phys: DANIELE CHILDS Pat Loc: CWM/NO/PACT/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 (Req'g Loc Img Loc: [facility]/BUILDING 1 Service: Unknown (Case 18 COMPLETE) HIP 2-3 VIEWS(LEFT) WITH OR WITHO(RAD Detailed) CPT:04015 Proc Modifiers : LEFT CPT Modifiers : LT LEFT SIDE Reason for Study: chronic left hip pain Clinical History: Report Status: Verified Date Reported: SEP 05, 2023 Date Verified: SEP 05, 2023 Asphalt Raker E-Sig:/ES/CHERYLE GUZMAN JR Report: Study: AP view [...] Primary Interpreting Staff: CHERYLE GUZMAN JR, Radiologist (Asphalt Raker) /CHERYLE VALENCIA JR [facility] Encounter Notes: All associated encounter notes This section contains the clinical notes associated to the Encounter. 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 --------- OBJECTIVE: Indication for anticoagulation: [ ] Atrial fibrilation [ ] Atrial flutter [ X ] VTE (DVT or PE) [ ] Post-op DVT prophylaxis [ X ] Other: TAVR Most recent lab values include the following: HGB: HGB Collection DT Specimen Test Name Result Units Ref Range 12/14/2022 07:54 BLOOD HGB 12.4 L g/dL 12.8 - 17 PLT: WBC Collection DT Specimen Test Name Result Units Ref Range 12/14/2022 07:54 BLOOD WBC 7.45 K/cmm 4.50 - 11.00 Liver Function Tests No data available for: AST ALT ALKALINE PHOSPHATASE ALBUMIN BILIRUBIN, TOTAL LDH PROTEIN,TOTAL HEIGHT: 63 in [160.0 cm] (03/06/2023 11:10) WEIGHT: 144.4 lb [65.50 kg] (03/06/2023 11:10) BMI: BMI: 25.6 CREATININE-EGFR 02/23/23 08:48 0.73 12/14/22 07:54 0.81 CRCL IBW: CrCl(est): 61.7 mL/min (Creat:0.73 02/23/23) CRCL ACT: No Creat CRCL ADJ: 61.7 mL/min (02/23/23) --------- ASSESSMENT: Action required? [ ] Yes [ X ] No Comments: As noted in 02/10/23 [facility] consult note: Called and spoke with patient's son, re: apixaban use. 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 [facility] confirmed off-label use of DOAC. Small studies have suggested benefit of use for indication. --------- PLAN: [ X ] No action required, dismiss flag [ ] Will intervene: [ ] Patient education via phone/letter [ ] Schedule phone/[id number] follow up [ ] Lab ordered [ ] Discontinue interacting medication [ ] Discontinue DOAC [ ] Change to alternative DOAC [ ] Change DOAC dose [ ] Notify PCP [ ] Consult cardiology/hematology [ ] Other: Time spent: 10 mins /reginaldo/ Hilaria Ribeiro PharmD, BCACP Clinical Corporate Librarian Signed: 08/22/2023 11:04 HILARIA RIBEIRO [facility] ([id number])
--- OUTSIDE RECORDS SUMMARY | 2024-08-16 09:31 | XMS_ITS | Encounter Summary ---
Author Name [facility] [place] Organization [facility] [place] Address [address] [place] [address] Care Team Providers Care Store Sales Leader Name Role Phone TRACY CARRILLO Primary Care [...] PHI MEDEX BRONZ E December 19, 2013 [id number] GUSTAVO ARAMBULA SR PATIENT [employer] CASUALTY MEDICARE SUPPLEMEN PHI MEDIC ARE SUPPL EMENT Jul 21, 2007 NONE [id number] Edgar ARAMBULA [place]IENT [place] SUPPLEMEN PHI MEDEX BRONZ E December 19, 2013 [id number] GUSTAVO ARAMBULA SR PATIENT [place] MEDICARE SUPPLEMEN PHI MEDEX BRONZ E December 19, 2013 [id number] Edgar ARAMBULA PATIENT MEDICARE (WNR) MEDICARE (M) PART A Oct 19, 2004 PART A [id number] Edgar ARAMBULAN PATIENT MEDICARE (WNR) MEDICARE (M) PART B Oct 19, 2004 PART B [id number] [phone] [id number] Edgar ARAMBULAN PATIENT MEDICARE (WNR) MEDICARE (M) PART A Oct 19, 2004 PART A [id number] [phone] Edgar ARAMBULAN PATIENT MEDICARE (WNR) MEDICARE (M) PART B Oct 19, 2004 PART B [id number] Edgar ARAMBULAN PATIENT MEDICARE (WNR) MEDICARE (M) PART A Oct 19, 2004 PART A [id number] Edgar ARAMBULAN PATIENT MEDICARE (WNR) MEDICARE () PART B Oct 19, 2004 PART B [id number] Edgar ARAMBULAN PATIENT MEDICARE (WNR) MEDICARE () PART A Oct 19, 2004 PART A [id number] Edgar ARAMBULA PATIENT MEDICARE (WNR) MEDICARE () PART A Oct 19, 2004 PART A [id number] [phone] Edgar ARAMBULAN PATIENT MEDICARE (WNR) MEDICARE () PART B Oct 19, 2004 PART B [id number] Edgar ARAMBULAN PATIENT MEDICARE (WNR) MEDICARE () PART B Oct 19, 2004 PART B [id number] [phone] Edgar ARAMBULA PATIENT Selected Encounter This section includes the information on record at DC for the Encounter. Date/Time Encounter Type Encounter Description Reason Pro vider Source Sep 11, 2023 12:42 PM Outpatient Encounter ADMIN PAT ACTIVTIES (MASNONCT) IHE Encounter Template Text not used by DC Plan of Treatment: Future Appointments (+ 6 months) and Future Tests (+/- 45 days) The Plan of Treatment section includes future care activities for the patient [facility] This section includes future appointments and future orders which are active, pending or scheduled. Future Appointments This section includes appointments that were scheduled to occur 6 months from the date of the Encounter, up to a maximum of 20 appointments. The data comes from all [facility]. Appointment Date/Time Appointment Type Appointme nt Facility Name Sep 12, 2023 10:00 AM AMBULATORY - PSYCHIATRY [facility] [place] [facility] Sep 25, 2023 10:30 AM [facility] Sep 26, 2023 08:27 AM AMBULATORY - NONE [facility] [place] [facility] Sep 26, 2023 12:00 PM AMBULATORY - MEDICINE DC [facility] [place] [facility] Oct 16, 2023 09:00 AM AMBULATORY - MEDICINE DC [facility] [place] [facility] Nov 06, 2023 09:30 AM AMBULATORY - MEDICINE DC [facility] [place] [facility] December 21, 2023 09:00 AM AMBULATORY - PSYCHIATRY [place] [facility] [place] [facility] December 25, 2023 09:00 AM [facility] Feb 05, 2024 10:00 AM AMBULATORY - MEDICINE DC [facility] [place] [facility] Feb 13, 2024 11:30 AM [facility] Feb 15, 2024 09:00 AM AMBULATORY - PSYCHIATRY [place] [facility] [place] [facility] Feb 15, 2024 09:45 AM AMBULATORY - NONE [facility] [place] [facility] Mar 07, 2024 09:00 AM AMBULATORY - PSYCHIATRY [place] [facility] [place] [facility] Mar 08, 2024 08:30 AM AMBULATORY - NONE [facility] [place] [facility] Mar 11, 2024 09:00 AM AMBULATORY - MEDICINE [facility] Active, Pending, and Scheduled Orders This section includes a listing of several types of active, pending, and scheduled orders, including clinic medications orders, diagnostic test orders, procedure orders and consult orders; where the start date of the order is 45 days before the date of the Encounter or 45 days after the date of theEncounter. The data comes from all [facility]. Test Date/Time Test Type Test Details Facility Name Sep 05, 2023 12:00 AM Laboratory - Chemi stry Order OCCULT BLOOD FIT X1 SCREEN(IN-HOUSE) STOOL FECES SP [facility] Sep 26, 2023 09:55 AM Consult Order [facility] Cons Manager [employer] [facility] Lab Results: +/- 30 days of the encounter This section includes the Chemistry and Hematology Lab Results on record with DC for the patient. Radiology Reports and Pathology Reports are provided separately, in subsequent sections. Lab Results This section contains the Chemistry/Hematology Results that were resulted 30 days before or 30 daysafter the date of the Encounter. Date/Time Source Result Type Result - Unit Interpretation Reference Range Comment Sep 05, 2023 10:56 AM [facility] FERRITIN Specimen Type: SERUM No comment entered. Ordering Provider: YOAN CHILDS Report Released Date/Time: Sep 05, 2023 10:30 AM Reporting Lab: [address] [address] [facility]forming [facility] [address] FERRITIN 25 ng/mL 20-300 Sep 05, 2023 10:56 AM [facility] IRON & TIBC PANEL Specimen Type: SERUM No comment entered. Ordering Provider: YOAN CHILDS Report Released Date/Time: Sep 05, 2023 10:30 AM Reporting Lab: [address] [address] Performing [facility]: [facility] [address] TIBC 401 ug/dL 204-475 IRON 53 ug/dL 40-160 Transferrin Saturation 13.2 L 20.0-50.0 Sep 05, 2023 10:56 AM [facility] CBC AND DIFF (AUTO) Specimen Type: BLOOD No comment entered. Ordering Provider: YOAN CHILDS Report Released Date/Time: Sep 05, 2023 10:30 AM Reporting Lab: [address] [address] Performing Lab: [facility] [address] [facility] [address] WBC 5.66 10*3/uL 4.50-11.00 RBC 4.25 10*6/uL 4.23-5.66 HGB 12.1 g/dL L 12.8-17 HCT 35.5 L 39.2-50.4 MCV 83.5 fL 82-99 MCHC 34.1 g/dL 30.8-35.1 PLT 295 10*3/uL 140-360 RDW-CV 12.0 12.0-16.0 Dolores, Abs 0.59 10*3/uL 0.30-1.10 MCH 28.5 pg 26.2-32.6 Neut % 56.3 43.7-75.8 Lymph % 27.2 14.0-42.3 Dolores % 10.4 5.1-13.7 Eos % 4.1 0.4-6.8 [...] AM Reporting Lab: [facility] [address] [facility] [address] Performing Lab: [facility] [address] [facility] [address] CHOLESTEROL 133 mg/dL TRIGLYCERIDE 73 mg/dL 0-150 LDL calculated 75 mg/dL 0-129 CHOL/HDL 3.1 HDL CHOLESTEROL 43 mg/dL 40-60 Sep 01, 2023 10:29 AM [facility] BASIC METABOLIC PANEL (fasting) Specimen Type: SERUM No comment entered. Ordering Provider: YULY AUSTIN Report Released Date/Time: Aug 17, 2023 08:25 AM Reporting Lab: [facility] [address] [facility] [address] Performing Lab: [facility] [address] [facility] [address] UREA NITROGEN 10 mg/dL 7-25 GLUCOSE 135 [...] AM Reporting Lab: [facility] [address] [facility] [address] Performing Lab: [address] [address] HEMOGLOBIN A1C 6.7 H 4.0-5.6 Sep 01, 2023 10:29 AM [facility] LIVER FUNCTION Specimen Type: SERUM No comment entered. Ordering Provider: YULY AUSTIN Report Released Date/Time: Aug 17, 2023 08:25 AM Reporting Lab: [facility] [address] [facility] [address] Performing Lab: [address] [address] PROTEIN,TOTAL 6.9 g/dL 6.0-8.3 ALBUMIN 3.8 g/dL 3.5-5.0 ALKALINE PHOSPHATASE 91 U/L 40-150 AST 14 U/L 5-34 ALT 13 U/L BILIRUBIN, TOTAL 0.5 mg/dL 0.2-1.2 Sep 01, 2023 10:29 AM [facility] MICROALBUMIN CREATININE RATIO PANEL Specimen Type: URINE No comment entered. Ordering Provider: YULY AUSTIN Report Released Date/Time: Aug 17, 2023 08:25 AM Reporting Lab: [facility] [address] [facility] [address] Performing Lab: [address] [address] MICROALBUMIN/C REATININE RATIO 9.0 mg/g 0-29.9 MICROALBUMIN,Q UANTITATIVE 1.0 mg/dL RR UNAVAIL CREATININE URINE 110.79 mg/dL Sep 01, 2023 10:29 AM [facility] CBC AND DIFF (AUTO) Specimen Type: BLOOD No comment entered. Ordering Provider: YULY AUSTIN Report Released Date/Time: Aug 17, 2023 08:25 AM Reporting Lab: [facility] [address] [facility] [address] Performing Lab: [facility] [address] [facility] [address] WBC 8.35 10*3/uL 4.50-11.00 RBC 4.17 10*6/uL L 4.23-5.66 HGB 12.0 g/dL L 12.8-17 HCT 35.3 L 39.2-50.4 MCV 84.7 fL 82-99 MCHC 34.0 g/dL 30.8-35.1 PLT 305 10*3/uL 140-360 RDW-CV 12.3 12.0-16.0 Dolores, Abs 0.71 10*3/uL 0.30-1.10 MCH 28.8 pg 26.2-32.6 Neut % 66.3 43.7-75.8 Lymph % 20.8 14.0-42.3 Dolores % 8.5 5.1-13.7 Eos % 3.0 0.4-6.8 [...] took place. Date/Time Current Smoking Status Comment [facility] Dec 13, 2022 03:00 PM VA-TOBACCO USER EVERY DAY [facility] [place] [facility] Tobacco Use History This section includes a history of the smoking, or tobacco-related health factors, that were collected on or before the date of the Encounter. The data comes from the [place] facility where the Encounter took place. 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 NO [facility] [place] [facility] Dec 13, 2022 03:00 PM VA-TOBACCO USE MED NO [facility] [place] [facility] Dec 13, 2022 03:00 PM VA-TOBACCO USER EVERY DAY [facility] [place] [facility] Nov 17, 2021 10:00 AM VA-TOBACCO USE 30 YEARS OR MORE [facility] [place] [facility] Nov 17, 2021 10:00 AM VA-TOBACCO USE ADVICE [facility] [place] [facility] Nov 17, 2021 10:00 AM VA-TOBACCO USE OVENS SUPERVISOR NO [facility] Nov 17, 2021 10:00 AM VA-TOBACCO USE MED NO [facility] Nov 17, 2021 10:00 AM VA-TOBACCO USE WI 30 MIN OF WAKEUP [facility] Nov 17, 2021 10:00 AM VA-TOBACCO USER EVERY DAY [facility] Oct 14, 2013 12:55 PM V1-PT NOT INTERESTED IN QUIT TOBACCO USE [facility] May 07, 2013 05:04 PM CURRENT SMOKER trying to stop [facility] May 07, 2013 05:04 PM V1-PT DECLINES REF TO TOBACCO CESS PRGM [facility] May 07, 2013 05:04 PM V1-PT DECLINES TOBACCO CESSATION MEDS [facility] May 07, 2013 05:04 PM V1-PT READY TO QUIT TOBACCO USE [facility] Dec 03, 2012 08:23 AM V1-PT DECLINES REF TO TOBACCO CESS PRGM [facility] Dec 03, 2012 08:23 AM V1-PT DECLINES TOBACCO CESSATION MEDS [facility] Dec 03, 2012 08:23 AM V1-PT THINKING ABOUT QUIT TOBACCO USE [facility] Jun 05, 2012 08:45 AM CURRENT SMOKER 1/2ppd [facility] Jun 05, 2012 08:45 AM V1-PT DECLINES REF TO TOBACCO CESS [facility] Jun 05, 2012 08:45 AM V1-PT THINKING ABOUT QUIT TOBACCO USE [facility] Jun 05, 2012 08:45 AM V1-TOBACCO CESS MEDS NOT PRESCRIBED Vet wants to talk to his provider-He is nervous about taking meds to quit- but he is interested in quitting [facility] Nov 25, 2011 09:14 AM V1-PT DECLINES REF TO TOBACCO CESS PRGM [facility] Nov 25, 2011 09:14 AM V1-PT DECLINES TOBACCO CESSATION MEDS [facility] [place] [facility] Nov 25, 2011 09:14 AM V1-PT THINKING ABOUT QUIT TOBACCO USE [facility] [place] [facility] May 06, 2011 01:02 PM CURRENT SMOKER [facility] [place] [facility] May 06, 2011 01:02 PM V1-PT DECLINES TOBACCO CESSATION MEDS [facility] [place] [facility] May 06, 2011 01:02 PM V1-PT NOT INTERESTED IN QUIT TOBACCO USE [facility] [place] [facility] Sep 24, 2010 08:51 AM V1-PT DECLINES TOBACCO CESSATION MEDS [facility] [place] [facility] Sep 24, 2010 08:51 AM V1-PT THINKING ABOUT QUIT TOBACCO USE [facility] [place] [facility] Mar 22, 2010 07:58 AM CURRENT SMOKER 1/2 ppd [facility] [place] [facility] Feb 25, 2009 12:05 PM QUIT TOBACCO USE IN PAST YEAR [facility] [place] [facility] Aug 26, 2008 09:28 AM CURRENT SMOKER 1/2 ppd [facility] [place] [facility] Aug 26, 2008 09:28 AM V1-PT DECLINES REF TO TOBACCO CESS [facility] [place] [facility] Aug 26, 2008 09:28 AM V1-PT READY TO QUIT TOBACCO USE [facility] [place] [facility] Dec 19, 2007 10:08 AM V1-PT DECLINES REF TO TOBACCO CESS PRGM [facility] [place] [facility] Dec 19, 2007 10:08 AM V1-PT DECLINES TOBACCO CESSATION MEDS [facility] [place] [facility] Dec 19, 2007 10:08 AM V1-PT THINKING ABOUT QUIT TOBACCO USE [place] [facility] [place] [facility] Sep 11, 2007 11:10 AM CURRENT SMOKER [facility] [place] [facility] Sep 11, 2007 11:10 AM V1-PT DECLINES REF TO TOBACCO CESS PRGM [facility] [place] [facility] Sep 11, 2007 11:10 AM V1-PT DECLINES TOBACCO CESSATION MEDS [facility] Sep 11, 2007 11:10 AM V1-PT THINKING ABOUT QUIT TOBACCO USE [facility] Feb 13, 2007 01:46 [...] this document. The data comes from all [facility]. Date Advance Directives Provider Source Apr 10, 2023 ADVANCE DIRECTIVE ESSIE STARK [facility] Apr 19, 2007 ADVANCE DIRECTIVE VICTORIA [...] the Encounter. The data comes from all [place] treatment facilities. 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 or attending: Tracy Carrillo NP DC Pager: [phone] Backup pager: History: chronic lumbar spine pain Report Status: Verified Date Reported: SEP 26, 2023 Date Verified: SEP 26, 2023 Tube Buffer E-Sig:/ES/CHERYLE GUZMAN JR Report: Study: AP, lateral [...] No immediate attention required Primary Interpreting Staff: CEHRYLE GUZMAN JR, Radiologist (Tube Buffer) /CHERYLE VALENCIA JR [place] [facility] [place] [facility] Sep 26, 2023 08:32 AM HIP 2-3 VIEWS (RIGHT) WITH OR WITHOUT PELVIS: GUSTAVO ARAMBULA 1940 M Exm Date: SEP 26, 2023@08:32 Req Phys: TRACY CARRILLO Loc: CWM/SO/PACT 7 (Req'g Loc) Img Loc: [facility] 1 Service: Unknown (Case [id number] COMPLETE) HIP 2-3 VIEWS (RIGHT) WITH OR WIT(RAD Detailed) CPT:32597 CPT Modifiers : RT RIGHT SIDE Reason for Study: hip pain Clinical History: 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, fellow, IRRIGATION SUPERVISOR or attending: Tracy Carrillo NP DC Pager: [phone] Backup pager: History: chronic right hip pain, hx CAROL ANN Report Status: Verified Date Reported: SEP 26, 2023 Date Verified: SEP 26, 2023 Tube Buffer E-Sig:/ES/CHERYLE GUZMAN JR Report: Study: AP view [...] Primary Interpreting Staff: CHERYLE GUZMAN JR, Radiologist (Tube Buffer) /EACHERYLE CHESTER JR DC [facility] [place] [facility] Sep 05, 2023 11:05 AM HIP 2-3 VIEWS(LEFT) WITH OR WITHOUT PELVIS: GUSTAVO ARAMBULA -1940 M [facility] Date: SEP 05, 2023@11:05 Req Phys: DANIELE CHILDS Pat Loc: CWM/NO/PACT/FIRM IRRIGATION SUPERVISOR (Req'g Loc Img Loc: [facility] 1 Service: Unknown (Case 18 COMPLETE) HIP 2-3 VIEWS(LEFT) WITH OR WITHO(RAD Detailed) CPT:76220 Proc Modifiers : LEFT CPT Modifiers : LT LEFT SIDE Reason for Study: chronic left hip pain Clinical History: Report Status: Verified Date Reported: SEP 05, 2023 Date Verified: SEP 05, 2023 Tube Buffer E-Sig:/ES/CHERYLE GUZMAN JR Report: Study: AP view [...] Primary Interpreting Staff: CHERYLE GUZMAN JR, Radiologist (Tube Buffer) /CHERYLE VALENCIA JR DC CNT [facility] Encounter Notes: All associated encounter notes This section contains the clinical notes associated to the Encounter. Date/Time Encounter Note(s) Provider Source Sep 11, 2023 12:57 PM ADDENDUM: LOCAL TITLE: Addendum STANDARD TITLE: ADDENDUM DATE OF NOTE: SEP 11, 2023@12:57:21 ENTRY DATE: SEP 11, 2023@12:57:22 AUTHOR: SE REYES: URGENCY: STATUS: COMPLETED deferred to provider /reginaldo/ SE REYES Registered Nurse Signed: 09/11/2023 12:57 Receipt Acknowledged By: 09/12/2023 07:49 /reginaldo/ DANIELE CHILDS NP NURSE PRACTITIONER === --- Original Document --- 09/11/23 CCC: SCHEDULING ADMINISTRATION: Patient Demographics Patient Name: GUSTAVO ARAMBULA Patient Primary Phone: [phone] Patient Primary Address: [address] [place] [address] Patient : 1940 Patient Age: 82 Call Back Number: [phone] Caller/Recipient Relation to Patient: Self Administrative Administrative Note Reason: Lab / Imaging Results Administrative Note Comments: [place] calling requesting to speak with someone from [facility]. He stated that he had an xray done of his hip last week and he is just realizing that they did the xray of the wrong side. They did the xray on his left side and his right side is the one that has been bothering him. Please call to discuss. /reginaldo/ MOISÉS HARRELL Signed: 09/11/2023 12:42 Receipt Acknowledged By: 09/11/2023 12:58 /reginaldo/ SE REYES Registered Nurse * AWAITING SIGNATURE * MOISÉS HERZOG ANGELA D [facility] Sep 11, 2023 12:42 PM ADMINISTRATIVE NOTE: LOCAL TITLE: CCC: SCHEDULING ADMINISTRATION STANDARD TITLE: ADMINISTRATIVE NOTE DATE OF NOTE: SEP 11, 2023@12:42:45 ENTRY DATE: SEP 11, 2023@12:42:45 AUTHOR: MOISÉS HARRELL COSIGNER: URGENCY: STATUS: COMPLETED CCC: SCHEDULING ADMINISTRATION Has ADDENDA Patient Demographics Patient Name: GUSTAVO ARAMBULA Patient Primary Phone: [phone] Patient Primary [address] [address] [place] [id number] Patient : 1940 Patient Age: 82 Call Back Number: [phone] Caller/Recipient Relation to Patient: Self Administrative Administrative Note Reason: Lab / Imaging Results Administrative Note Comments: [place] calling requesting to speak with someone from [facility]. He stated that he had an xray done of his hip last week and he is just realizing that they did the xray of the wrong side. They did the xray on his left side and his right side is the one that has been bothering him. Please call to discuss. /reginaldo/ MOISÉS HARRELL Signed: 09/11/2023 12:42 Receipt Acknowledged By: 09/11/2023 12:58 /reginaldo/ SE REYES Registered Nurse 09/12/2023 08:14 /reginaldo/ MOISÉS HERZOG REGISTERED NURSE 09/11/2023 ADDENDUM STATUS: COMPLETED deferred to provider /chavez REYES Registered Nurse Signed: 09/11/2023 12:57 Receipt Acknowledged By: 09/12/2023 07:49 /reginaldo/ DANIELE CHILDS NP NURSE PRACTITIONER MOISÉS HARRELL [facility]
--- OUTSIDE RECORDS SUMMARY | 2024-08-16 09:32 | XMS_ITS | Encounter Summary ---
Author Name [facility] [place] [facility] [place] Address [address] [place] [address] Care Team Providers Care Care Coordination Manager Name Role Phone TRACY VILLANUEVA Primary [...] PHI MEDEX BRONZ E December 19, 2013 [id number] GUSTAVO ARAMBULA SR PATIENT [employer] CASUALTY MEDICARE SUPPLEMEN PHI MEDIC ARE SUPPL EMENT Jul 21, 2007 NONE [id number] Edgar ARAMBULA PATIENT [place] SUPPLEMEN PHI MEDEX BRONZ E December 19, 2013 [id number] GUSTAVO ARAMBULA SR PATIENT [place] MEDICARE SUPPLEMEN PHI MEDEX BRONZ E December 19, 2013 [id number] Edgar ARAMBULA PATIENT MEDICARE (WNR) MEDICARE () PART A Oct 19, 2004 PART A [id number] Edgar ARAMBULAN PATIENT MEDICARE (WNR) MEDICARE () PART B Oct 19, 2004 PART B [id number] Edgar ARAMBULA [place] PATIENT MEDICARE ([place]) MEDICARE () PART A Oct 19, 2004 PART A [id number] [id number] Edgar ARAMBULAN PATIENT MEDICARE (WNR) MEDICARE () PART B Oct 19, 2004 PART B [id number] Edgar ARAMBULAN PATIENT MEDICARE (WNR) MEDICARE () PART A Oct 19, 2004 PART A [id number] Edgar ARAMBULA [place] PATIENT MEDICARE ([place]) MEDICARE () PART B Oct 19, 2004 PART B [id number] Edagr ARAMBULAN PATIENT MEDICARE (WNR) MEDICARE () PART A Oct 19, 2004 PART A [id number] 90A Edgar ARAMBULA PATIENT MEDICARE (WNR) MEDICARE () PART B Oct 19, 2004 PART B [id number] [phone] Edgar ARAMBULAN PATIENT MEDICARE (WNR) MEDICARE () PART A Oct 19, 2004 PART A [id number] Edgar ARAMBULAN PATIENT MEDICARE (WNR) MEDICARE () PART B Oct 19, 2004 PART B [id number] Edgar ARAMBULAN PATIENT Selected Encounter This section includes the information on record at [place] for the Encounter. Date/Time Encounter Type Encounter Description Reason Pro vider Source Feb 01, 2024 12:00 AM Outpatient Encounter EVENT (HISTORICAL) IHE [...] MEDICINE [facility] Feb 13, 2024 11:30 AM AMBULATORY - MEDICINE [facility] Feb 15, 2024 09:00 AM AMBULATORY - PSYCHIATRY [facility] Feb 15, 2024 09:45 AM AMBULATORY - NONE [facility] Mar 07, 2024 09:00 AM AMBULATORY - PSYCHIATRY [facility] Mar 08, 2024 08:30 AM AMBULATORY - NONE [facility] Mar 11, 2024 09:00 AM [facility] Apr 04, 2024 11:00 AM AMBULATORY - PSYCHIATRY [facility] Apr 08, 2024 09:30 AM AMBULATORY - MEDICINE [facility] Apr 10, 2024 10:45 AM AMBULATORY - MEDICINE [facility] Apr 26, 2024 11:00 AM AMBULATORY - MEDICINE [facility] Apr 30, 2024 08:30 AM AMBULATORY - PSYCHIATRY [facility] May 01, 2024 11:00 AM AMBULATORY - NONE [facility] May 14, 2024 11:30 AM AMBULATORY - MEDICINE [facility] May 31, 2024 11:00 AM AMBULATORY - REHAB MEDICIN E [facility] May 31, 2024 12:00 PM AMBULATORY - MEDICINE [facility] Jun 10, 2024 10:00 AM [facility] Jun 11, 2024 09:30 AM AMBULATORY - PSYCHIATRY [facility] Jun 13, 2024 10:00 AM AMBULATORY - MEDICINE [facility] Jun 19, 2024 11:00 AM AMBULATORY - NONE [facility] Social History: Smoking Status (Most current) and Tobacco Use (All prior to encounter date) This section includes the most current, and the historical, smoking and tobacco- related health factors from the [place] facility where the Encounter took place. Current Smoking Status This section includes the most current smoking, or tobacco-related health factor, from the [place] facility where the Encounter took place. Date/Time Current Smoking Status Comment Facil it December 25, 2023 09:05 AM VA-TOBACCO NEVER USED [place] [facility] Tobacco Use History This section includes a history of the smoking, or tobacco-related health factors, that were collected on or before the date of the Encounter. The data comes from the [place] facility where the Encounter took place. 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 [facility] Dec 13, 2022 03:00 PM VA-TOBACCO USE MED NO [facility] Dec 13, 2022 03:00 PM VA-TOBACCO USER EVERY DAY [facility] Nov 17, 2021 10:00 AM VA-TOBACCO USE 30 YEARS OR MORE [facility] Nov 17, 2021 10:00 AM VA-TOBACCO USE ADVICE [facility] Nov 17, 2021 10:00 AM VA-TOBACCO USE CUTTER OPERATOR NO [facility] Nov 17, 2021 10:00 AM VA-TOBACCO USE MED NO [facility] Nov 17, 2021 10:00 AM VA-TOBACCO USE WI 30 MIN OF WAKEUP [facility] Nov 17, 2021 10:00 AM VA-TOBACCO USER EVERY DAY [facility] Oct 14, 2013 12:55 PM V1-PT NOT INTERESTED IN QUIT TOBACCO USE [facility] May 07, 2013 05:04 PM CURRENT SMOKER trying to stop [facility] May 07, 2013 05:04 PM V1-PT DECLINES REF TO TOBACCO CESS [facility] May 07, 2013 05:04 PM V1-PT DECLINES TOBACCO CESSATION MEDS [facility] May 07, 2013 05:04 PM V1-PT READY TO QUIT TOBACCO USE [facility] Dec 03, 2012 08:23 AM V1-PT DECLINES REF TO TOBACCO CESS PRGM [facility] Dec 03, 2012 08:23 AM V1-PT DECLINES TOBACCO CESSATION MEDS [facility] Dec 03, 2012 08:23 AM V1-PT THINKING ABOUT QUIT TOBACCO USE [facility] Jun 05, 2012 08:45 AM CURRENT SMOKER 1/2ppd [facility] Jun 05, 2012 08:45 AM V1-PT DECLINES REF TO TOBACCO CESS PRGM [facility] Jun 05, 2012 08:45 AM V1-PT THINKING ABOUT QUIT TOBACCO USE [facility] Jun 05, 2012 08:45 AM V1-TOBACCO CESS MEDS NOT PRESCRIBED Vet wants to talk to his provider-He is nervous about taking meds to quit- but he is interested in quitting [facility] Nov 25, 2011 09:14 AM V1-PT DECLINES REF TO TOBACCO CESS PRGM [facility] Nov 25, 2011 09:14 AM V1-PT DECLINES TOBACCO CESSATION MEDS [facility] Nov 25, 2011 09:14 AM V1-PT THINKING ABOUT QUIT TOBACCO USE [facility] May 06, 2011 01:02 PM CURRENT SMOKER [facility] May 06, 2011 01:02 PM V1-PT DECLINES TOBACCO CESSATION MEDS [facility] May 06, 2011 01:02 PM V1-PT NOT INTERESTED IN QUIT TOBACCO USE [facility] Sep 24, 2010 08:51 AM V1-PT DECLINES TOBACCO CESSATION MEDS [facility] Sep 24, 2010 08:51 AM V1-PT THINKING ABOUT QUIT TOBACCO USE [facility] Mar 22, 2010 07:58 AM CURRENT SMOKER 1/2 ppd [facility] Feb 25, 2009 12:05 PM QUIT TOBACCO USE IN PAST YEAR [facility] Aug 26, 2008 09:28 AM CURRENT SMOKER 1/2 ppd [facility] Aug 26, 2008 09:28 AM V1-PT DECLINES REF TO TOBACCO CESS PRGM [facility] Aug 26, 2008 09:28 AM V1-PT READY TO QUIT TOBACCO USE [facility] Dec 19, 2007 10:08 AM V1-PT DECLINES REF TO TOBACCO CESS PRGM [facility] Dec 19, 2007 10:08 AM V1-PT DECLINES TOBACCO CESSATION MEDS [facility] Dec 19, 2007 10:08 AM V1-PT THINKING ABOUT QUIT TOBACCO USE [facility] Sep 11, 2007 11:10 AM CURRENT SMOKER [facility] Sep 11, 2007 11:10 AM V1-PT DECLINES REF TO TOBACCO CESS PRGM [facility] Sep 11, 2007 11:10 AM V1-PT DECLINES TOBACCO CESSATION MEDS [facility] Sep 11, 2007 11:10 AM V1-PT THINKING ABOUT QUIT TOBACCO USE [facility] Feb 13, 2007 01:46 PM V1-PT DECLINES REF TO TOBACCO CESS PRGM [facility] Feb 13, 2007 01:46 PM V1-PT DECLINES TOBACCO CESSATION MEDS [facility] Feb 13, 2007 01:46 PM V1-PT THINKING ABOUT QUIT [facility]ACCO [facility] Oct 02, 2006 08:28 AM QUIT TOBACCO USE IN PAST YEAR 3 months ago [facility] Aug 19, 2005 08:33 AM QUIT TOBACCO USE IN PAST YEAR nonsmoker [facility] Sep 21, 2004 09:54 AM CURRENT SMOKER [facility] Sep 07, 2004 08:07 AM CURRENT SMOKER [facility] Sep 15, 2003 11:21 AM CURRENT SMOKER smokes one pk day [facility] Jul 23, 2003 01:57 PM CURRENT SMOKER [facility] Advance Directives: All historical and [...] 2023 ADVANCE DIRECTIVE ESSIE STARK [facility] W RADHA [facility] Apr 19, 2007 ADVANCE DIRECTIVE VICTORIA JOHNSON [facility] Radiology Reports: +/- 30 days of [...] (Req'g Loc) Img Loc: NHM/CT Service: Unknown [facility] , (Case [id number] COMPLETE) CT THORAX W/O CONT (CT Detailed) CPT:42632 Reason for Study: smoker x 65 years Clinical History: Report Status: Verified Date Reported: FEB 20, 2024 Date Verified: FEB 20, 2024 Supervisor Baking E-Sig: Report: CT THORAX W/O CONT HISTORY: smoker x 65 years COMPARISON: April 19, 2006 TECHNIQUE: Helical CT of the chest, with multiplanar reformats including maximum intensity projection (MIP) reconstructions, was performed at the local [place] facility. 1019 images were received by the [place] National Telerad[employer] Program (NTP) for interpretation. RADIATION [...] as above. READING PHYSICIAN: Ck Jean M.D. -[id number] 02/20/2024 12:57 PDT [facility] National Teleradiology Program [phone] (For Medical Practitioner Use Only) Attention Patients / Veterans: If you have questions or concerns about these test results, please contact your ordering provider or primary care team. Primary Diagnostic Code: SIGNIFICANT ABNORMALITY, ATTN NEEDED Primary Interpreting Staff: RADIOLOGY,OUTSIDE SERVICE, Staff Physician / RADIOLOGY,OUTSIDE SERVICE [facility] Encounter Notes: All associated encounter notes This section contains the clinical notes associated to the Encounter. Date/Time Encounter Note(s) Provider Source Feb 01, 2024 12:00 AM NONVA NOTE: LOCAL TITLE: NON-VA HOSPITALIZATIONS/ER STANDARD TITLE: NONVA NOTE DATE OF NOTE: FEB 01, 2024 ENTRY DATE: MAR 02, 2024@08:33:57 AUTHOR: ORQUIDEA RUBY EXP COSIGNER: URGENCY: STATUS: COMPLETED VistA Imaging - Scanned Document SCANNED DOCUMENT SIGNATURE NOT REQUIRED Electronically Filed: 03/02/2024 by: ORQUIDEA RAMIREZ [facility]
--- OUTSIDE RECORDS SUMMARY | 2024-08-16 09:32 | XMS_ITS | Encounter Summary ---
Author Name [facility] [place] [facility] [place] [facility] [place] [facility] [place] Address [address] [place] [address] Care Team Providers Care Cane Stripper Name Role Phone TRACY VILLANUEVA Primary Care [...] PHI MEDEX BRONZ E December 19, 2013 [id number] [phone] GUSTAVO ARAMBULA SR PATIENT [employer] MEDICARE SUPPLEMEN PHI MEDIC ARE SUPPL EMENT Jul 21, 2007 NONE [id number] Edgar ARAMBULA PATIENT [place] MED[place] SUPPLEMEN PHI MEDEX BRONZ E December 19, 2013 [id number] GUSTAVO ARAMBULA SR PATIENT [place] ([place] MEDICARE SUPPLEMEN PHI MEDEX BRONZ E December 19, 2013 [id number] Edgar ARMABULA PATIENT MEDICARE (WNR) MEDICARE () PART A Oct 19, 2004 PART A [id number] [phone] [id number] Edgar ARAMBULAN PATIENT MEDICARE (WNR) MEDICARE () PART B Oct 19, 2004 PART B [id number] Edgar ARAMBULA [place] PATIENT [place]IC[place] ([place]) MEDICARE () PART A Oct 19, 2004 PART A [id number] Edgar ARAMBULAN PATIENT MEDICARE (WNR) MEDICARE () PART B Oct 19, 2004 PART B [id number] Edgar ARAMBULAN PATIENT MEDICARE (WNR) MEDICARE () PART A Oct 19, 2004 PART A [id number] Edgar ARAMBULA [place] PATIENT MEDICARE ([place]) MEDICARE () PART B Oct 19, 2004 PART B [id number] [phone] [id number] Egdar ARAMBULAN PATIENT MEDICARE (WNR) MEDICARE () PART A Oct 19, 2004 PART A [id number] Edgar ARAMBULA PATIENT MEDICARE (WNR) MEDICARE () PART B Oct 19, 2004 PART B [id number] Edgar ARAMBULAN PATIENT MEDICARE (WNR) MEDICARE () PART A Oct 19, 2004 PART A [id number] Edgar ARAMBULAN PATIENT MEDICARE (WNR) MEDICARE () PART B Oct 19, 2004 PART B [id number] Edgar ARAMBULAN PATIENT Selected Encounter This section includes the information on record at [place] for the Encounter. Date/Time Encounter Type Encounter Description Reason Pro vider Source Mar 12, 2024 01:07 PM Outpatient Encounter PRIMARY CARE/MEDICINE IHE Encounter Template Text not used by [place] Plan of Treatment: Future Appointments (+ 6 [...] 20 appointments. The data comes from all [place] treatment facilities. Appointment Date/Time Appointment Type Appointme nt Facility Name Apr 04, 2024 11:00 AM AMBULATORY [facility]IATRY [facility] [place] [facility] Apr 08, 2024 09:30 AM AM[facility]ULATORY [facility]ICINE [facility] [place] [facility] Apr 10, 2024 10:45 AM AMBULATORY - MEDICINE [facility] [place] [facility] Apr 26, 2024 11:00 AM AMBULATORY - MEDICINE [facility] [place] [facility] Apr 30, 2024 08:30 AM AMBULATORY - PS[facility]CHIATRY [facility] [place] [facility] May 01, 2024 11:00 AM AMBULATORY - NONE [facility] [place] [facility] May 14, 2024 11:30 AM AMBULATORY - MEDICINE [facility] May 31, 2024 11:00 AM AMBULATORY - REHAB MEDICIN E [facility] [place] [facility] May 31, 2024 12:00 PM AMBULATORY - MEDICINE [facility] [place] [facility] Jun 10, 2024 10:00 AM AMBULATORY - MEDICINE [facility] Jun 11, 2024 09:30 AM AMBULATORY - PS[facility]CHIATRY [facility] [place] [facility] Jun 13, 2024 10:00 AM AMBULATORY - MEDICINE [facility] [place] [facility] Jun 19, 2024 11:00 AM AMBULATORY - NONE [facility] [place] [facility] Jun 21, 2024 09:00 AM AMBULATORY - MEDICINE [facility] [place] [facility] Jun 21, 2024 09:15 AM AMBULATORY [facility] MEDICINE [facility] [place] [facility] Jun 21, 2024 09:30 AM AMBULATORY [facility] MEDICINE [facility] [place] [facility] Jun 26, 2024 08:00 AM AMBULATORY - MEDICINE [facility] [place] [facility] Jul 05, 2024 09:00 AM AMBULATORY - REHAB MEDICIN E [facility] [place] [facility] Jul 30, 2024 09:30 AM AMBUL[place]ORY [place] [facility] [place] [facility] Aug 05, 2024 09:45 AM AMBULATORY - [place]ICINE [place] [facility] [place] [facility] Social History: Smoking Status (Most current) and Tobacco Use (All prior to encounter date) This section includes the most current, and the historical, smoking and tobacco- related health factors from the [place] facility where the Encounter took place. Current Smoking Status This section includes the most current smoking, or tobacco-related health factor, from the [place] facility where the Encounter took place. Date/Time Current Smoking Status Comment Facil ity December 25, 2023 09:05 AM VA-TOBACCO [facility] USED [place] [facility] Tobacco Use History This section includes a history of the smoking, or tobacco-related health factors, that were collected on or before the date of the Encounter. The data comes from the [place] facility where the Encounter took place. 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 AGENT NO [facility] [place] [facility] Dec 13, 2022 03:00 PM VA-TOBACCO USE MED NO [facility] [place] [facility] Dec 13, 2022 03:00 PM VA-TOBACCO USER EVERY DAY [facility] [place] [facility] Nov 17, 2021 10:00 AM VA-TOBACCO USE 30 YEARS OR MORE [facility] [place] [facility] Nov 17, 2021 10:00 AM VA-TOBACCO USE ADVICE [facility] [place] [facility] Nov 17, 2021 10:00 AM VA-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 USE 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 NO [facility] [place] [facility] Nov 17, 2021 10:00 AM VA-TOBACCO USE MED NO [facility] [place] [facility] Nov 17, 2021 10:00 AM VA-TOBACCO USE WI 30 MIN OF WAKEUP [facility] Nov 17, 2021 10:00 AM VA-TOBACCO USER EVERY DAY [facility] Oct 14, 2013 12:55 PM V1-PT NOT INTERESTED IN QUIT TOBACCO USE [facility] May 07, 2013 05:04 PM CURRENT SMOKER trying to stop [facility] May 07, 2013 05:04 PM V1-PT DECLINES REF TO TOBACCO CESS [facility] May 07, 2013 05:04 PM V1-PT DECLINES TOBACCO CESSATION MEDS [facility] May 07, 2013 05:04 PM V1-PT READY TO QUIT TOBACCO USE [facility] Dec 03, 2012 08:23 AM V1-PT DECLINES REF TO TOBACCO CESS PRGM [facility] Dec 03, 2012 08:23 AM V1-PT DECLINES TOBACCO CESSATION MEDS [facility] Dec 03, 2012 08:23 AM V1-PT THINKING ABOUT QUIT TOBACCO USE [facility] Jun 05, 2012 08:45 AM CURRENT SMOKER 1/2ppd [facility] Jun 05, 2012 08:45 AM V1-PT DECLINES REF TO TOBACCO CESS PRGM [facility] Jun 05, 2012 08:45 AM V1-PT THINKING ABOUT QUIT TOBACCO USE [facility] Jun 05, 2012 08:45 AM V1-TOBACCO CESS MEDS NOT PRESCRIBED Vet wants to talk to his provider-He is nervous about taking meds to quit- but he is interested in [facility] Nov 25, 2011 09:14 AM V1-PT DECLINES REF TO TOBACCO CESS PRGM [facility] Nov 25, 2011 09:14 AM V1-PT DECLINES TOBACCO CESSATION MEDS [facility] Nov 25, 2011 09:14 AM V1-PT THINKING ABOUT QUIT TOBACCO USE [facility] May 06, 2011 01:02 PM CURRENT SMOKER [facility] [place] [facility] May 06, 2011 01:02 PM V1-PT DECLINES TOBACCO CESSATION MEDS [facility] [place] [facility] May 06, 2011 01:02 PM V1-PT NOT INTERESTED IN QUIT TOBACCO USE [facility] [place] [facility] Sep 24, 2010 08:51 AM V1-PT DECLINES TOBACCO CESSATION MEDS [facility] [place] [facility] Sep 24, 2010 08:51 AM V1-PT THINKING ABOUT QUIT TOBACCO USE [facility] [place] [facility] Mar 22, 2010 07:58 AM CURRENT SMOKER 1/2 ppd [facility] [place] [facility] Feb 25, 2009 12:05 PM QUIT TOBACCO USE IN PAST YEAR [facility] [place] [facility] Aug 26, 2008 09:28 AM CURRENT SMOKER 1/2 ppd [facility] [place] [facility] Aug 26, 2008 09:28 AM V1-PT DECLINES REF TO TOBACCO CESS PRGM [facility] [place] [facility] Aug 26, 2008 09:28 AM V1-PT READY TO QUIT TOBACCO USE [facility] [place] [facility] Dec 19, 2007 10:08 AM V1-PT DECLINES REF TO TOBACCO CESS PRGM [facility] [place] [facility] Dec 19, 2007 10:08 AM V1-PT DECLINES TOBACCO CESSATION MEDS [facility] Dec 19, 2007 10:08 AM V1-PT THINKING ABOUT QUIT TOBACCO USE [facility] [place] [facility] Sep 11, 2007 11:10 AM CURRENT SMOKER [facility] [place] [facility] Sep 11, 2007 11:10 AM V1-PT DECLINES REF TO TOBACCO CESS PRGM [facility] [place] [facility] Sep 11, 2007 11:10 AM V1-PT DECLINES TOBACCO CESSATION MEDS [facility] [place] [facility] Sep 11, 2007 11:10 AM V1-PT THINKING ABOUT QUIT TOBACCO USE [facility] [place] [facility] Feb 13, 2007 01:46 PM V1-PT DECLINES REF TO TOBACCO CESS PRGM [facility] [place] [facility] Feb 13, 2007 01:46 PM V1-PT DECLINES TOBACCO CESSATION MEDS [facility] Feb 13, 2007 01:46 PM V1-PT THINKING ABOUT QUIT TOBACCO USE [facility] Oct 02, 2006 08:28 AM QUIT TOBACCO USE IN PAST YEAR 3 months ago [facility] Aug 19, 2005 08:33 AM QUIT TOBACCO USE IN PAST YEAR nonsmoker [facility] Sep 21, 2004 09:54 AM CURRENT SMOKER [facility] Sep 07, 2004 08:07 AM CURRENT SMOKER [facility] Sep 15, 2003 11:21 AM CURRENT SMOKER smokes one pk day [facility] Jul 23, 2003 01:57 PM CURRENT SMOKER [facility] Advance Directives: All historical and current Section Date Range: From patient's date of to the date document was created. This section includes ALL of a patient's completed or amended [place] Advance and Rescinded Directives. The entries below indicate that a directive exists for the patient, but an actual copy is not included with this document. The data comes from all [place] facilities. Date Advance Directives Provider Source Apr 10, 2023 ADVANCE DIRECTIVE ESSIE STARK [facility] W [facility] Apr 19, 2007 ADVANCE DIRECTIVE VICTORIA JOHNSON [facility] Radiology Reports: +/- 30 days of the [...] the Encounter. The data comes from all [place] treatment facilities. Date/Time Radiology Report Provider Source Feb 15, 2024 09:[address] THORAX W/O CONT: GUSTAVO ARAMBULA [id number] M Exm Date: FEB 15, 2024@09:56 Req Phys: TRACY VILLANUEVA Pat Loc: CWM/SO/PACT 7 (Req'g Loc) Img Loc: NHM/CT Service: Unknown [place] [facility] , (Case [id number] COMPLETE) CT THORAX W/O CONT (CT Detailed) CPT:78090 Reason for Study: smoker x 65 years Clinical History: Report Status: Verified Date Reported: FEB 20, 2024 Date Verified: FEB 20, 2024 [employer] Professor E-Sig: Report: CT THORAX W/O CONT HISTORY: smoker x 65 years COMPARISON: April 19, 2006 TECHNIQUE: Helical CT of the chest, with multiplanar reformats including maximum intensity projection (MIP) reconstructions, was performed at the local [place] facility. 1019 images were received by the [place] National Teleradiology Program (NTP) for interpretation. RADIATION [...] as above. READING PHYSICIAN: Ck Jean M.D. -[id number] 02/20/2024 12:57 PDT [facility] National Teleradiology Program [phone] (For Medical Practitioner Use Only) Attention Patients / Veterans: If you have questions or concerns about these test results, please contact your ordering provider or primary care team. Primary Diagnostic Code: SIGNIFICANT ABNORMALITY, ATTN NEEDED Primary Interpreting Staff: RADIOLOGY,OUTSIDE SERVICE, Staff Physician / RADIOLOGY,OUTSIDE SERVICE [place] [facility] Encounter Notes: All associated encounter notes This section contains the clinical notes associated to the Encounter. Date/Time Encounter Note(s) Provider Source Mar 12, 2024 01:30 PM ADDENDUM: LOCAL TITLE: Addendum STANDARD TITLE: ADDENDUM DATE OF NOTE: MAR 12, 2024@13:30:09 ENTRY DATE: MAR 12, 2024@13:30:09 AUTHOR: ZACHARY ABBOTT COSIGNER: URGENCY: STATUS: COMPLETED Adding NUTRITION provider /reginaldo/ ZACHARY ABBOTT RN REGISTERED NURSE Signed: 03/12/2024 13:30 Receipt Acknowledged By: 03/15/2024 08:10 /reginaldo/ JESSE ARAGON STAFF DIETITIAN --- Original Document --- 03/12/24 WALK-IN NOTE PRIMARY CARE (T): <====Click to Start Advanced Medical Support [place] presents to the Primary Care clinic with the following request: [ ]Medication Renewal/Refill [ ]Consultation with Team RN [ ]Symptoms [ X ]Other The states they are: [ ]Waiting [ X ]Not Waiting No Walk in visit scheduled with PACT Nurse [ X ] At this encounter the [place]'s demographics were verified. [ X ] At this encounter the [place]'s Insurance information was verified. [ X ] At this encounter the below scheduled visits for the [place] were discussed and appointment reminder card was offered. Future appointments: 04/04/2024 11:00 CWM/NO/VVC/MHC/DANIELS1 04/08/2024 09:30 CWM/NO/VVC/PAIN MD CLINIC 04/10/2024 10:45 COM CARE-GI GENERAL 04/26/2024 11:00 CWM/SO/PHARM/PACT 2 Vet requesting someone from Nutrition give him a call back. He has tried to return the call but unsuccessful. Please call vets renée Rebolledo [phone] /es/ SHANEKA ANGEL AMSJason Signed: 03/12/2024 13:09 Receipt Acknowledged By: 03/12/2024 14:23 /es/ MARCUS DOZIER LPN LPN 03/12/2024 13:30 /es/ ZACHARY ABBOTT RN REGISTERED NURSE ZACHARY ABBOTT Mar 12, 2024 01:07 PM PRIMARY CARE NOTE: LOCAL TITLE: WALK-IN NOTE PRIMARY CARE (T) STANDARD TITLE: PRIMARY CARE NOTE DATE OF NOTE: MAR 12, 2024@13:07 ENTRY DATE: MAR 12, 2024@13:08:09 AUTHOR: SHANEKA ANGEL EXP COSIGNER: URGENCY: STATUS: COMPLETED WALK-IN NOTE PRIMARY CARE (T) Has ADDENDA <====Click to Start Advanced Medical Support presents to the Primary Care clinic with the following request: [ ]Medication Renewal/Refill [ ]Consultation with Team RN [ ]Symptoms [ X ]Other The [place] states they are: [ ]Waiting [ X ]Not Waiting No Walk in visit scheduled with PACT Nurse [ X ] At this encounter the [place]'s demographics were verified. [ X ] At this encounter the [place]'s Insurance information was verified. [ X ] At this encounter the below scheduled visits for the [place] were discussed and appointment reminder card was offered. Future appointments: 04/04/2024 11:00 CWM/NO/VVC/MHC/DANIELS1 04/08/2024 09:30 CWM/NO/VVC/PAIN MD CLINIC 04/10/2024 10:45 COM CARE-GI GENERAL 04/26/2024 11:00 CWM/SO/PHARM/PACT 2 Vet requesting someone from Nutrition give him a call back. He has tried to return the call but unsuccessful. Please call vets son Gustavo [phone] /reginaldo/ SHANEKA SMITH Signed: 03/12/2024 13:09 Receipt Acknowledged By: 03/12/2024 14:23 /es/ MARCUS DOZIER LPN LPN 03/12/2024 13:30 /es/ ZACHARY ABBOTT RN REGISTERED NURSE 03/12/2024 ADDENDUM STATUS: COMPLETED Adding NUTRITION provider /es/ ZACHARY ABBOTT RN REGISTERED NURSE Signed: 03/12/2024 13:30 Receipt Acknowledged By: * AWAITING SIGNATURE * JESSE ARAGON,SHANEKA OLSON
--- OUTSIDE RECORDS SUMMARY | 2024-08-16 09:32 | XMS_ITS | Encounter Summary ---
Author Name [facility] [place] [facility] [place] [facility] [place] Address [address] [place] [address] Care Team Providers Care Surgery Aid Name Role Phone TRACY VILLANUEVA Primary Care [...] PHI MEDEX BRONZ E December 19, 2013 [id number] [phone] GUSTAVO ARAMBULA SR PATIENT [employer] MEDICARE SUPPLEMEN PHI MEDIC ARE SUPPL EMENT Jul 21, 2007 NONE [id number] Edgar ARAMBULA PATIENT [place] MEDICARE SUPPLEMEN PHI MEDEX BRONZ E December 19, 2013 [id number] GUSTAVO ARAMBULA SR PATIENT [place] ([place]ARD[place] MEDICARE SUPPLEMEN PHI MEDEX BRONZ E December 19, 2013 [id number] [phone] Edgar ARAMBULA PATIENT MEDICARE (WNR) MEDICARE () PART A Oct 19, 2004 PART A [id number] Edgar ARAMBULA [place] PATIENT MEDICARE ([place]) MEDICARE (M) PART B Oct 19, 2004 PART B [id number] Edgar ARAMBULA [place] PATIENT MEDICARE ([place]) MEDICARE (M) PART A Oct 19, 2004 PART A [id number] Edgar ARAMBULAN PATIENT MEDICARE (WNR) MEDICARE (M) PART B Oct 19, 2004 PART B [id number] Edgar ARAMBULAN PATIENT MEDICARE (WNR) MEDICARE () PART A Oct 19, 2004 PART A [id number] Edgar ARAMBULA [place] PATIENT MEDICARE ([place]) MEDICARE () PART B Oct 19, 2004 PART B [id number] [id number] Edgar AR[place] PATIENT MEDICARE (WNR) MEDICARE () PART A Oct 19, 2004 PART A [id number] Edgar ARAMBULAN PATIENT MEDICARE (WNR) MEDICARE () PART B Oct 19, 2004 PART B [id number] Edgar AR[place]BULAN PATIENT MEDICARE (WNR) MEDICARE () PART A Oct 19, 2004 PART A [id number] Edgar ARAMBULA PATIENT MEDICARE ([place]) MEDICARE () PART B Oct 19, 2004 PART B [id number] Edgar ARAMBULA PATIENT Selected Encounter This section includes the information on record at [place] for the Encounter. Date/Time Encounter Type Encounter Description Reason Provider Source Mar 11, 2024 09:00 AM OFFICE O/P EST MOD 30 MIN PRIMARY CARE/MEDICINE ICD-10-CM I10 Essential (primary) hypertension SOL VILLANUEVA Encounter Template Text not used by [place] Assessments - Encounter Diagnoses This section includes the primary and secondary diagnoses documented for the Encounter. Date/Time Primary/Secondary Diagnosis Diagnosis Name Provider Source Mar 12, 2024 08:22 AM PRIMARY Essential (primary) hypertension TRACY VILLANUEVA [facility] Mar 12, 2024 08:22 AM SECONDARY Acute eczematoid otitis externa, bilateral TRACY VILLANUEVA [place] Mar 12, 2024 08:22 AM SECONDARY Anorexia TRACY VILLANUEVA [place] Mar 12, 2024 08:22 AM SECONDARY Chronic obstructive pulmonary disease, unspecified TRACY VILLANUEVA [place] Mar 12, 2024 08:22 AM SECONDARY Generalized anxiety disorder TRACY VILLANUEVA [place] Mar 12, 2024 08:22 AM SECONDARY Major depressive disorder, recurrent, unspecified TRACY VILLANUEVA [place] Mar 12, 2024 08:22 AM SECONDARY Nausea TRACY VILLANUEVA [place] Mar 12, 2024 08:22 AM SECONDARY Osteoarthritis of hip, unspecified TRACY VILLANUEVA [place] Mar 12, 2024 08:22 AM SECONDARY Tobacco use TRACY VILLANUEVA [place] Mar 12, 2024 08:22 AM SECONDARY Type 2 diabetes mellitus without complications TRACY VILLANUEVA [place] Plan of Treatment: Future Appointments (+ 6 months) and Future Tests (+/- 45 days) The Plan of Treatment section includes future care activities for the patient [facility] [place] [facility] This section includes future appointments and future orders which are active, pending or scheduled. Future Appointments This section includes appointments that were scheduled to occur 6 months from the date of the Encounter, up to a maximum of 20 appointments. The data comes from all [place] treatment facilities. Appointment Date/Time Appointment Type Appointme nt Facility Name Apr 04, 2024 11:00 AM AMBULATORY - [facility]IATRY [facility] [place] [facility] Apr 08, 2024 09:30 AM [place] [facility] [place] [facility] Apr 10, 2024 10:45 AM [place] [facility] [place] [facility] Apr 26, 2024 11:00 AM AMBULATORY - MEDICINE [facility] [place] [facility] Apr 30, 2024 08:30 AM AMBULATORY - PS[facility]CHIATRY [facility] [place] [facility] May 01, 2024 11:00 AM AMBULATORY - NONE [facility] [place] [facility] May 14, 2024 11:30 AM AMBULATORY - MEDICINE [facility] May 31, 2024 11:00 AM AMBULATORY - REHAB MEDICIN E [facility] [place] [facility] May 31, 2024 12:00 PM AMBULATORY - MEDICINE [facility] [place] [facility] Jun 10, 2024 10:00 AM AMBULATORY - MEDICINE [facility] Jun 11, 2024 09:30 AM AMBULATORY - PSYCHIATRY [facility] [place] [facility] Jun 13, 2024 10:00 AM AMBULATORY - MEDICINE [facility] [place] [facility] Jun 19, 2024 11:00 AM AMBULATORY - NONE [facility] [place] [facility] Jun 21, 2024 09:00 AM AMBULATORY - MEDICINE [facility] [place] [facility] Jun 21, 2024 09:15 AM AMBULATORY - MEDICINE [facility] [place] [facility] Jun 21, 2024 09:30 AM AMBULATORY - MEDICINE [facility] [place] [facility] Jun 26, 2024 08:00 AM AMBULATORY - MEDICINE [facility] [place] [facility] Jul 05, 2024 09:00 AM AMBULATORY - REHAB MEDICIN E [facility] [place] [facility] Jul 30, 2024 09:30 AM AMBULATORY - PSYCHIATRY [facility] [place] [facility] Aug 05, 2024 09:45 AM AMBULATORY - MEDICINE [facility] [place] [facility] Vital Signs: All taken on the encounter date This section contains inpatient and outpatient Vital Signs collected on the date of the Encounter. Date/Time Temperature Pulse Blood Pressure Respiratory Rate SP02 Pain Height Weight Body Mass Index Source Mar 11, 2024 09:00 AM 165/77 [facility] Mar 11, 2024 08:59 AM 98.3 80 173/71 19 98 60.3 132.6 26 [facility] Social History: Smoking Status (Most current) and Tobacco Use (All prior to encounter date) This section includes the most current, and the historical, smoking and tobacco- related health factors from the [place] facility where the Encounter took place. Current Smoking Status This section includes the most current smoking, or tobacco-related health factor, from the [place] facility where the Encounter took place. Date/Time Current Smoking Status Comment Facil ity December 25, 2023 09:00 AM VA-TOBACCO USER EVERY DAY [facility] Tobacco Use History This section includes a history of the smoking, or tobacco-related health factors, that were collected on or before the date of the Encounter. The data comes from the [place] facility where the Encounter took place. 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 This section includes ALL of a patient's completed or amended [place] Advance and Rescinded Directives. The entries below indicate that a directive exists for the patient, but an actual copy is not included with this document. The data comes from all [place] facilities. Date Advance Directives Provider Source Apr 10, 2023 ADVANCE DIRECTIVE CARLOSESSIE STUBBS [place] [facility] Apr 19, 2007 ADVANCE DIRECTIVE ELIZABETHSEAMUSJason [place] [facility] Radiology Reports: +/- 30 days [...] the Encounter. The data comes from all [place] treatment facilities. 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 1019 images were received by the [place] National Teleradiology Program (NTP) for interpretation. RADIATION [...] as above. READING PHYSICIAN: Ck Jean M.D. -[id number] 02/20/2024 12:57 PDT [facility] National Teleradiology Program [phone] (For Medical Practitioner Use Only) Attention Patients / Veterans: If you have questions or concerns about these test results, please contact your ordering provider or primary care team. Primary Diagnostic Code: SIGNIFICANT ABNORMALITY, ATTN NEEDED Primary Interpreting Staff: RADIOLOGY,OUTSIDE SERVICE, Staff Physician / RADIOLOGY,OUTSIDE SERVICE [place] [facility] [place] [facility] Encounter Notes: All associated encounter notes This section contains the clinical notes associated to the Encounter. Date/Time Encounter Note(s) Provider Source Mar 11, 2024 08:48 AM PRIMARY CARE NURSE PRACTITIONER OUTPATIENT NOTE: LOCAL TITLE: NURSE PRACTITIONER OUTPATIENT NOTE STANDARD TITLE: PRIMARY CARE NURSE PRACTITIONER OUTPATIENT NOTE DATE OF NOTE: MAR 11, 2024@08:48 ENTRY DATE: MAR 11, 2024@08:48:51 AUTHOR: TRACY VILLANUEVA COSIGNER: URGENCY: STATUS: COMPLETED PRIMARY CARE VISIT GUSTAVO ALEXANDER SR ARAMBULA, is a 83 y/o WHITE MALE who presents today at the [place] [facility]. TYPE OF VISIT: Face to face HPI: HTN - on Tx x 2, followed by cardiology. BP has been elevated; 165/77 today. Cardiology has asked him to keep a log and f/u in a couple of weeks to determine if he needs medication adjustment. Had echo last week, unsure of results yet. DM2 - A1c 7.7. On metformin; followed by CPP. Up until last month was taking lower dose than prescribed. KendrickIRazaL is now managing his medications. Will recheck labs next month. States BS are improved. OA right elbow, b/l hands. Using Voltaren gel, helps a little. Not taking anything orally for pain. Still has depression and axniety, on multiple Rx. Followed by . Is now living with son and D-I-L. States his mood is much improved with new living situation. Appetite improving now that he is living with family, on Remeron. Weight stablizing. Has Ensure PRN. Affecting his appetite - ill fitting dentures, is currently seeing a dentist about this; frequent nausea caused by pain patch. Has reached out to pain management about possibly lowering the dose. + smoker back up to 10 cig a day. Interested in quitting. COPD - ERWIN, chronic cough. Denies SOB at rest. Has been out of rescue and maintenance inhalers for a couple months. Having itching to b/l ears outside and just inside. Recent labs reviewed and all medications were reconciled during this visit. HISTORY: PERIOD OF SERVICE - [employer] FROM December TO Oct COMBAT SERVICE INDICATED: No VITAL SIGNS: Blood Pressure: 165/77 (03/11/2024 09:00) Pain: 7 (09/05/2023 10:02) Patient Height: 60.3 in [153.2 cm] (03/11/2024 08:59) Patient Weight: 132.6 lb [60.15 kg] (03/11/2024 08:59) Pulse: 80 (03/11/2024 08:59) Respiration: 19 (03/11/2024 08:59) Temperature: 98.3 F [36.8 C] (03/11/2024 08:59) REVIEW OF SYSTEMS: CONSTITUTIONAL: No fevers, chills, unexpected weight changes. Appetite improving. EENT: ill fitting dentures CARDIOVASCULAR: No chest pain, palpitations or peripheral edema. RESPIRATORY: No SOB at rest. + ERWIN, cough GASTROINTESTINAL: Denies abdominal pain, V/D/C. Intermittent nausea. MUSCULOSKELETAL: chronic OA pain right elbow, b/l hands SKIN: Itching to b/l ears PSYCHIATRIC: Anxiety and depression slightly improved with new living conditions. NEUROLOGIC: No headaches, dizziness, numbness/tingling in the extremities or unilateral weakness. PHYSICAL EXAMINATION: General: Well-appearing Ros[place]y in no obvious distress. Mental Status: Alert and oriented x4. ENT: TM and ear canals normal bilaterally. Moist oral mucosa. Posterior pharynx unremarkable. Edentulous today. Neck: Supple. No lymphadenopathy. No carotid bruit. Thyroid unremarkable. Lungs: CTAB. Normal chest excursion. Eupneic respirations. CV: Heart tones S1, S2. RRR. No M/G/R. No peripheral edema. GI: Abdomen is soft and nontender. No palpable mass or organomegaly. MS: Full ROM all joints. OA changes noted b/l hands. Neuro: CN II through XII grossly intact. Normal speech. Normal gait. Integument: Eczematous rash to b/l ears, flaky/dry. Psych: Normal mood and affect. Normal judgment. Cooperative with exam, follows commands. ALLERGIES: GEMFIBROZIL, LISINOPRIL HEALTH MAINTENANCE - see end of note PREVENTIVE MEDICINE GOALS Info Only: [employer] Video Connect Capable DUE NOW Advance Directive Screen AD Apr 10 Colonoscopy GAP Reminder DUE NOW Medication Reconciliation DUE NOW (Optional) Whole Health Documentation DUE NOW ASSESSMENT/PLAN: Active problems - Computerized Problem List is the source for the followin. Benign essential hypertension - BP elevated. Is now keeping a log for cardiology; will defer to specialist. Continue Rx as ordered for now. 2. Diabetes mellitus type 2 - A1c 7.7. Managed by CPP. BS have improved now that he is taking Rx correctly. 3. HERMILO - Generalized anxiety disorder. Mood improving now that he is living with family. Continue Rx, followed by 4. Depression (SNOMED CT [id number]) - see above. 5. anorexia - appetite improving, weight stabilizing. Continue Remeron, Ensure. Is going to reschedule his appt with nutrition. 6. Chronic obstructive lung disease - sx stable. Maintenance and rescue inhalers reordered today. 7. Tobacco use (SNOMED CT 140230432) - interested in smoking cessation. Nicotine patches ordered. Discussed quit plan with him. 8. OA multiple sites - continue Voltaren gel. Recommend Routine Tylenol BID. 9. eczema b/l ears - topical steroid cream ordered PRN 10. nausea - no vomiting. R/T pain patch. Has reached out to pain management to possibly reduce dose. Zofran ordered PRN. FOLLOW UP: Return to clinic as noted below and/or sooner PRN UPCOMING APPOINTMENTS: 03/11/2024 09:00 CWM/SO/PACT 7 04/04/2024 11:00 CWM/NO/VVC/MHC/DANIELS1 04/08/2024 09:30 CWM/NO/VVC/PAIN [facility] 04/10/2024 10:45 COM CARE-GI GENERAL 04/26/2024 11:00 CWM/SO/PHARM/PACT 2 No barriers noted; patient understands and agrees to current treatment plan. If patient has any questions, concerns or changes in current health status he/she will call [facility] HM: Info Only: [facility] Capable: Home Telehealth ([facility]) Referral: Patient declines participation in [facility] Program at this time. Medication Reconciliation: Outpatient: Has the patient been [...] /reginaldo/ DARLENE BOX CERTIFIED NURSE PRACTITIONER Signed: 03/12/2024 08:22 TRACY VILLANUEVA [facility]
--- OUTSIDE RECORDS SUMMARY | 2024-08-16 09:32 | XMS_ITS | Encounter Summary ---
Author Name [facility] [place] [facility] [place] Address [address] [place] [address] Care Team Providers Care Museum Host/Hostess Name Role Phone TRACY VILLANUEVA Primary Care [...] PHI MEDEX BRONZ E December 19, 2013 [id number] GUSTAVO ARAMBULA SR PATIENT [employer] MEDICARE SUPPLEMEN PHI MEDIC ARE SUPPL EMENT Jul 21, 2007 NONE [id number] Edgar ARAMBULA PATIENT [place] MEDICARE SUPPLEMEN PHI MEDEX BRONZ E December 19, 2013 [id number] GUSTAVO ARAMBULA SR PATIENT [place] ([place] MEDICARE SUPPLEMEN PHI MEDEX BRONZ E December 19, 2013 [id number] [phone] Edgar ARAMBULA [place] PATIENT MEDICARE ([place]NR) MEDICARE () PART A Oct 19, 2004 PART A [id number] Edgar ARAMBULA [place] PAT[place] MEDICARE ([place]) MEDICARE (M) PART B Oct 19, 2004 PART B [id number] [phone] Edgar ARAMBULA [place] PATIENT MEDICARE ([place]) MEDICARE () PART A Oct 19, 2004 PART A [id number] Edgar ARAMBULA [place] PAT[place] MEDICARE ([place]) MEDICARE () PART B Oct 19, 2004 PART B [id number] Edgar ARAMBULA [place] PAT[place] MEDICARE ([place]) MEDICARE () PART A Oct 19, 2004 PART A [id number] Edgar ARAMBULA [place] PAT[place] MEDICARE ([place]) MEDICARE () PART B Oct 19, 2004 PART B [id number] Edgar ARAMBULA [place] PAT[place] MEDICARE ([place]) MEDICARE () PART A Oct 19, 2004 PART A [id number] Edgar ARAMBULA [place] PAT[place] MEDICARE ([place]) MEDICARE () PART B Oct 19, 2004 PART B [id number] [phone] Edgar ARAMBULA [place] PAT[place] MEDICARE ([place]) MEDICARE () PART A Oct 19, 2004 PART A [id number] [phone] Edgar ARAMBULA [place] PAT[place] MEDICARE ([place]) MEDICARE () PART B Oct 19, 2004 PART B [id number] Edgar ARAMBULA [place] PATIENT Selected Encounter This section includes the information on [place] at [place] for the Encounter. Date/Time Encounter Type Encounter Description Reason Provider Source Mar 11, 2024 08:31 AM QNHP OL DIG ASSMT&MGMT 5-10 CLINICAL PHARMACY ICD-10-CM Z04.89 Encounter for examination and observation for oth reasons ELIU NIX I[facility] Encounter Template Text not used by [facility] Assessments - Encounter Diagnoses This section includes the primary and secondary diagnoses documented for the Encounter. Date/Time Primary/Secondary Diagnosis Diagnosis Name Provider Source Mar 11, 2024 08:33 AM PRIMARY Encounter for examination and observation for oth reasons [facility]IU NIX [facility] Plan of Treatment: Future Appointments (+ 6 months) and Future Tests (+/- 45 days) The Plan of Treatment section includes future care activities for the patient from all [place] treatmentfacilities. This section includes future appointments and future orders which are active, pending or scheduled. Future Appointments This section includes appointments that were scheduled to occur 6 months from the date of the Encounter, up to a maximum of 20 appointments. The data comes from all [place] treatment facilities. Appointment Date/Time Appointment Type Appointme nt Facility Name Apr 04, 2024 11:00 AM AMBULATORY [facility] [place] Apr 08, 2024 09:30 AM [facility] [place] Apr 10, 2024 10:45 AM [facility]UL[facility] [place] Apr 26, 2024 11:00 AM [facility]ULATORY [facility] [place] Apr 30, 2024 08:30 AM AMBULATORY [facility] PS[facility]IATRY [facility] [place] May 01, 2024 11:00 AM AMBULATORY - NONE [facility] [place] May 14, 2024 11:30 AM AMBULATORY - MEDICINE [facility] [place] May 31, 2024 11:00 AM AMBULATORY - REHAB MEDICIN E [facility] [place] May 31, 2024 12:00 PM AMBULATORY [facility]INE [facility] [place] [facility] Jun 10, 2024 10:00 AM AMBULATORY - MEDICINE [place] [place] Jun 11, 2024 09:30 AM AMBULATORY [facility] PS[facility] [place] Jun 13, 2024 10:00 AM [facility]ORY [facility]INE [facility] [place] Jun 19, 2024 11:00 AM AMBULATORY - NONE [facility] [place] Jun 21, 2024 09:00 AM [facility] [place] Jun 21, 2024 09:15 AM [facility] Jun 21, 2024 09:30 AM AMBULATORY - MEDICINE [facility] Jun 26, 2024 08:00 AM AMBULATORY - MEDICINE [facility] Jul 05, 2024 09:00 [facility] Jul 30, 2024 09:30 AM [facility] Aug 05, 2024 09:45 AM AMBULATORY - MEDICINE [facility] Advance Directives: All historical and current Section Date Range: From patient's date of to the date document was created. This section includes ALL of a patient's completed or amended [place] Advance and Rescinded Directives. The entries below indicate that a directive exists for the patient, but an actual copy is not included with this document. The data comes from all [place] facilities. Date Advance Directives Provider Source Apr 10, 2023 ADVANCE DIRECTIVE ESSIE STARK [facility] Apr 19, 2007 ADVANCE DIRECTIVE VICTORIA [...] the Encounter. The data comes from all [place] treatment facilities. Date/Time Radiology Report Provider Source Feb 15, 2024 09:[address] THORAX W/O CONT: GUSTAVO ARAMBULA CATHERINE -1940 M Exm Date: FEB 15, 2024@09:56 Req Phys: TRACY VILLANUEVA Loc: CWM/SO/PACT 7 (Req'g Loc) Img Loc: NHM/CT Service: Unknown [facility] , (Case [id number] COMPLETE) CT THORAX W/O CONT (CT Detailed) CPT:54223 Reason for Study: smoker x 65 years Clinical History: Report Status: Verified Date Reported: FEB 20, 2024 Date Verified: FEB 20, 2024 Associate Director Of Development E-Sig: Report: CT THORAX W/O CONT HISTORY: smoker x 65 years COMPARISON: April 19, 2006 TECHNIQUE: Helical CT of the chest, with multiplanar reformats including maximum intensity projection (MIP) reconstructions, was performed at the local [place] facility. 1019 images were received by the [place] [facility] for interpretation. RADIATION DOSE (mGy*cm): [...] as above. READING PHYSICIAN: Ck Jean M.D. -[id number] 02/20/2024 12:57 PDT [facility] [phone] (For Medical Practitioner Use Only) Attention Patients / Veterans: If you have questions or concerns about these test results, please contact your ordering provider or primary care team. Primary Diagnostic Code: SIGNIFICANT ABNORMALITY, ATTN NEEDED Primary Interpreting Staff: RADIOLOGY,OUTSIDE SERVICE, Staff Physician / RADIOLOGY,OUTSIDE SERVICE [facility] [place] [facility] Encounter Notes: All associated encounter notes This section contains the clinical notes associated to the Encounter. Date/Time Encounter Note(s) Provider Source Mar 11, 2024 08:31 AM PHARMACY MEDICATIO N MGT NOTE: LOCAL TITLE: PHARMACY ANTICOAGULATION NOTE STANDARD TITLE: PHARMACY MEDICATION MGT NOTE DATE OF NOTE: MAR 11, 2024@08:31 ENTRY DATE: MAR 11, 2024@08:31:51 AUTHOR: EMILY NIX COSIGNER: URGENCY: STATUS: COMPLETED [...] Other: Comments: Pt flagged for review of prosthetic valve while on DOAC therapy --------- OBJECTIVE: Indication for anticoagulation: [ ] Atrial fibrilation [ ] Atrial flutter [ X ] VTE (DVT or PE) [ ] Post-op DVT prophylaxis [ ] Other: Most recent lab values include the following: HGB: HGB Collection DT Specimen Test Name Result Units Ref Range 12/25/2023 09:26 BLOOD HGB 12.5 L g/dL 12.8 - 17 PLT: WBC Collection DT Specimen Test Name Result Units Ref Range 12/25/2023 09:26 BLOOD WBC 9.74 K/cmm 4.50 - 11.00 Liver Function Tests Collection DT Spec AST ALT ALK CLEO ALBUMIN T BILI T. 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 [ ] Yes [ X ] No Comments: Pts with bioprosthetic valve replacements are not precluded from DOAC therapy. Pt to continue apixaban without a change. --------- PLAN: [ X ] No action required, dismiss flag [ ] Will intervene: [ ] Patient education via phone/letter [ ] Schedule phone/[id number] follow up [ ] Lab ordered [ ] Discontinue interacting medication [ ] Discontinue DOAC [ ] Change to alternative DOAC [ ] Change DOAC dose [ ] Notify PCP [ ] Consult cardiology/hematology [ ] Other: Time spent: 5 mins /reginaldo/ Emily Nix, PharmD, [facility] Clinical Labor Relations Analyst Signed: 03/11/2024 08:33 EMILY NIX [facility]
--- OUTSIDE RECORDS SUMMARY | 2024-08-16 09:32 | XMS_ITS | Encounter Summary ---
Author Name [facility] [place] [facility] [place] [facility] [place] [facility] [place] Address [address] [place] [address] Care Team Providers Care Dispatcher Street Department Name Role Phone TRACY VILLANUEVA Primary Care [...] PHI MEDEX BRONZ E December 19, 2013 [id number] [phone] GUSTAVO ARAMBULA SR PATIENT [employer] MEDICARE SUPPLEMEN PHI MEDIC ARE SUPPL EMENT Jul 21, 2007 NONE [id number] Edgar ARAMBULA PATIENT [place] MED[place] SUPPLEMEN PHI MEDEX BRONZ E December 19, 2013 [id number] [phone] GUSTAVO ARAMBULA SR PATIENT [place] OF [place] MEDICARE SUPPLEMEN PHI MEDEX BRONZ E December 19, 2013 [id number] Edgar ARAMBULA [place] PATIENT MEDICARE (WNR) MEDICARE (M) PART A Oct 19, 2004 PART A [id number] [phone] Edgar ARAMBULA [place] PATIENT MEDICARE (WNR) MEDICARE (M) PART B Oct 19, 2004 PART B [id number] Edgar ARAMBULA [place] PATIENT MEDICARE (WNR) MEDICARE (M) PART A Oct 19, 2004 PART A [id number] Edgar ARAMBULA [place] PATIENT MEDICARE ([place]) MEDICARE (M) PART B Oct 19, 2004 PART B [id number] Edgar ARAMBULA [place] PATIENT MEDICARE ([place]) MEDICARE (M) PART A Oct 19, 2004 PART A [id number] Edgar ARAMBULA [place] PAT[place] MEDICARE (WNR) MEDICARE () PART B Oct 19, 2004 PART B [id number] Edgar ARAMBULA [place] PAT[place] MEDICARE ([place]) MEDICARE () PART A Oct 19, 2004 PART A [id number] Edgar ARAMBULA [place] PAT[place] MEDICARE ([place]) MEDICARE () PART B Oct 19, 2004 PART B [id number] FILEMONEEdgar [place] PATIENT MEDICARE ([place]) MEDICARE () PART A Oct 19, 2004 PART A [id number] Edgar ARAMBULA [place] PATIENT MEDICARE ([place]) MEDICARE () PART B Oct 19, 2004 PART B [id number] Edgar ARAMBULAN PATIENT Selected Encounter This section includes the information on record at [place] for the Encounter. Date/Time Encounter Type Encounter Description Reason Provider Source Mar 07, 2024 09:00 AM OFFICE O/P EST MOD 30 [facility] - IND ICD-10-CM F33.9 Major depressive disorder, recurrent, unspecified JOSEY COLINDRES Encounter Template Text not used by [place] Assessments - Encounter Diagnoses This section includes the primary and secondary diagnoses documented for the Encounter. Date/Time Primary/Secondary Diagnosis Diagnosis Name Provider Source Mar 12, 2024 02:12 PM PRIMARY Major depressive disorder, recurrent, unspecified JOSEY COLINDRES [facility] [place] [facility] Mar 12, 2024 02:12 PM SECONDARY Other insomnia JOSEY COLINDRES [facility] [place] [facility] Plan of Treatment: Future Appointments (+ 6 months) and Future Tests (+/- 45 days) The Plan of Treatment section includes future care activities for the patient from all [place] treatmentfacilities. This section includes future appointments and future orders which are active, pending or scheduled. Future Appointments This section includes appointments that were scheduled to occur 6 months from the date of the Encounter, up to a maximum of 20 appointments. The data comes from all [place] treatment facilities. Appointment Date/Time Appointment Type Appointme nt Facility Name Mar 08, 2024 08:30 AM AMBULATORY - NONE [facility] [place] [facility] Mar 11, 2024 09:00 AM AMBULATORY - MEDICINE [facility] Apr 04, 2024 11:00 AM AMBULATORY - PSYCHIATRY [facility] [place] [facility] Apr 08, 2024 09:30 AM AMBULATORY - MEDICINE [facility] [place] [facility] Apr 10, 2024 10:45 AM AMBULATORY - MEDICINE [facility] [place] [facility] Apr 26, 2024 11:00 AM AMBULATORY - MEDICINE [facility] [place] [facility] Apr 30, 2024 08:30 AM AMBULATORY - PSYCHIATRY [facility] [place] [facility] May 01, 2024 11:00 AM AMBULATORY - NONE [facility] [place] [facility] May 14, 2024 11:30 AM [facility]ATORY - MEDICINE [facility] May 31, 2024 11:00 AM AMBULATORY - REHAB MEDICIN E [facility] [place] [facility] May 31, 2024 12:00 PM AMBULATORY - MEDICINE [facility] [place] [facility] Jun 10, 2024 10:00 AM AM[facility]ATORY - [facility]ICINE [facility] Jun 11, 2024 09:30 AM AMBULATORY - PSYCHIATRY [facility] [place] [facility] Jun 13, 2024 10:00 AM AMBULATORY - MEDICINE [facility] [place] [facility] Jun 19, 2024 11:00 AM AMBULATORY - NONE [facility] [place] [facility] Jun 21, 2024 09:00 AM AMBULATORY - MEDICINE [facility] [place] [facility] Jun 21, 2024 09:15 AM AMBULATORY - MEDICINE [facility] [place] [facility] Jun 21, 2024 09:30 AM AMBULATORY - MEDICINE [facility] [place] [facility] Jun 26, 2024 08:00 AM AMBULATORY - MEDICINE [facility] [place] [facility] Jul 05, 2024 09:00 AM AMBULATORY - REHAB MEDICIN E [facility] [place] [facility] Social History: Smoking Status (Most current) [...] AM VA-TOBACCO NEVER USED [facility] Tobacco Use History This section includes a history of the smoking, or tobacco-related health factors, that were collected on or before the date of the Encounter. The data comes from the [place] facility where the Encounter took place. 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 Nov 17, 2021 10:00 AM VA-TOBACCO USE ADVICE 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 Nov 17, 2021 10:00 AM VA-TOBACCO USE WI 30 MIN OF WAKEUP [facility] Nov 17, 2021 10:00 AM VA-TOBACCO USER EVERY DAY [facility] Oct 14, 2013 12:55 PM V1-PT NOT INTERESTED IN QUIT TOBACCO USE [facility] May 07, 2013 05:04 PM CURRENT SMOKER trying to stop [facility] May 07, 2013 05:04 PM V1-PT DECLINES REF TO TOBACCO CESS PRGM [facility] May 07, 2013 05:04 PM V1-PT DECLINES TOBACCO CESSATION MEDS [facility] May 07, 2013 05:04 PM V1-PT READY TO QUIT TOBACCO USE [facility] Dec 03, 2012 08:23 AM V1-PT DECLINES REF TO TOBACCO CESS [facility] Dec 03, 2012 08:23 AM V1-PT DECLINES TOBACCO CESSATION MEDS [facility] Dec 03, 2012 08:23 AM V1-PT THINKING ABOUT QUIT TOBACCO USE [facility] Jun 05, 2012 08:45 AM CURRENT SMOKER 1/2ppd [place] [facility] Jun 05, 2012 08:45 AM V1-PT DECLINES REF TO TOBACCO CESS [facility] [place] [facility] [facility] Jun 05, 2012 08:45 AM V1-PT THINKING ABOUT QUIT TOBACCO USE [facility] Jun 05, 2012 08:45 AM V1-TOBACCO CESS MEDS NOT PRESCRIBED Vet wants to talk to his provider-He is nervous about taking meds to quit- but he is interested in quitting [facility] [place] [facility] Nov 25, 2011 09:14 AM V1-PT DECLINES REF TO TOBACCO CESS [facility] Nov 25, 2011 09:14 AM V1-PT DECLINES TOBACCO CESSATION MEDS [facility] Nov 25, 2011 09:14 AM V1-PT THINKING ABOUT QUIT TOBACCO USE [facility] [place] [facility] May 06, 2011 01:02 PM CURRENT SMOKER [facility] [place] [facility] May 06, 2011 01:02 PM V1-PT DECLINES TOBACCO CESSATION MEDS [facility] May 06, 2011 01:02 PM V1-PT NOT INTERESTED IN QUIT TOBACCO USE [facility] Sep 24, 2010 08:51 AM V1-PT DECLINES TOBACCO CESSATION MEDS [facility] Sep 24, 2010 08:51 AM V1-PT THINKING ABOUT QUIT TOBACCO USE [facility] [place] [facility] Mar 22, 2010 07:58 AM CURRENT SMOKER 1/2 ppd [facility] [place] [facility] Feb 25, 2009 12:05 PM QUIT TOBACCO USE IN PAST YEAR [facility] Aug 26, 2008 09:28 AM CURRENT SMOKER 1/2 ppd [facility] Aug 26, 2008 09:28 AM V1-PT DECLINES REF TO TOBACCO CESS [facility] [place] [facility] Aug 26, 2008 09:28 AM V1-PT READY TO QUIT TOBACCO USE [facility] [place] [facility] Dec 19, 2007 10:08 AM V1-PT DECLINES REF TO TOBACCO CESS [facility] Dec 19, 2007 10:08 AM V1-PT DECLINES TOBACCO CESSATION MEDS [facility] Dec 19, 2007 10:08 AM V1-PT THINKING ABOUT QUIT TOBACCO USE [facility] [place] [facility] Sep 11, 2007 11:10 AM CURRENT SMOKER [facility] [place] [place] [facility] Sep 11, 2007 11:10 AM V1-PT DECLINES REF TO TOBACCO CESS [facility] Sep 11, 2007 11:10 AM V1-PT DECLINES TOBACCO CESSATION MEDS [facility] Sep 11, 2007 11:10 AM V1-PT THINKING ABOUT QUIT TOBACCO USE [facility] Feb 13, 2007 01:46 PM V1-PT DECLINES REF TO TOBACCO CESS [facility] Feb 13, 2007 01:46 PM V1-PT DECLINES TOBACCO CESSATION MEDS [facility] Feb 13, 2007 01:46 PM V1-PT THINKING ABOUT QUIT TOBACCO USE [facility] Oct 02, 2006 08:28 AM QUIT TOBACCO USE IN PAST YEAR 3 months ago [facility] Aug 19, 2005 08:33 AM QUIT TOBACCO USE IN PAST YEAR nonsmoker [facility] Sep 21, 2004 09:54 AM CURRENT SMOKER [facility] Sep 07, 2004 08:07 AM CURRENT [...] Apr 10, 2023 ADVANCE DIRECTIVE ESSIE STARK [facility] Apr 19, 2007 ADVANCE DIRECTIVE [...] Loc) Img Loc: NHM/CT Service: Unknown [place] [facility] , (Case [id number] COMPLETE) CT THORAX W/O CONT (CT Detailed) CPT:74530 Reason for Study: smoker x 65 years Clinical History: Report Status: Verified Date Reported: FEB 20, 2024 Date Verified: FEB 20, 2024 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 READING PHYSICIAN: Ck Jean M.D. -[id number] 02/20/2024 12:57 PDT [facility] National Teleradiology Program [phone] (For Medical Practitioner Use Only) Attention Patients / Veterans: If you have questions or concerns about these test results, please contact your ordering provider or primary care team. Primary Diagnostic Code: SIGNIFICANT ABNORMALITY, ATTN NEEDED Primary Interpreting Staff: RADIOLOGY,OUTSIDE SERVICE, Staff Physician / RADIOLOGY,OUTSIDE SERVICE [place] [facility] Encounter Notes: All associated encounter notes This section contains the clinical notes associated to the Encounter. Date/Time Encounter Note(s) Provider Source Mar 12, 2024 02:12 PM ADDENDUM: LOCAL TITLE: Addendum STANDARD TITLE: ADDENDUM DATE OF NOTE: MAR 12, 2024@14:12:10 ENTRY DATE: MAR 12, 2024@14:12:11 AUTHOR: LANA COLINDRES COSIGNER: URGENCY: STATUS: COMPLETED Dr. Nichols--kathy is asking to come off buprenorphine, feels like his pain is much better and he does not need it. Wanted advice for how to taper off. Next visit with you is Apr 08, but if you can give him a call sooner, that would be great. We are also using a small dose of lorazepam for severe anxiety, which will be temporary, but it would be great to get him off the opiate if not needed. Thanks~ /reginaldo/ LANA COLINDRES PSYCHIATRIST Signed: 03/12/2024 14:14 Receipt Acknowledged By: 03/15/2024 13:40 /es/ JOSE NORTON MD PHYSICIAN --- Original Document --- 03/07/24 PSYCHIATRY NOTE: PSYCHIATRY FOLLOW UP VISIT FILEMONGUSTAVO Lockhart SR is a 83yo MARITAL STATUS - WHITE MALE with a history of [employer] FROM December TO Oct INTERVAL HISTORY Vet was not aware we had an appt today. Via phone, he notes anxiety is better with the lorazepam, sometimes he takes it x2. Afternoons are worse. No falls. Nausea is still an issue, thinks it is because of the buprenorphine patch--he would like to get off it because his pain is better now, thinks he doesn't need it. Has an echo today. CURRENT MEDICATIONS Active Outpatient Medications (including Supplies): [...] PATCH TO SKIN EVERY 5 ACTIVE DAYS FOR PAIN (REMOVE PATCH BEFORE APPLYING A NEW PATCH) DEPEND UNDERWEAR,MAXIMUM,MEN SM/MED USE 1 BRIEF ACTIVE DIRECTED TWICE DAILY FOR INCONTINENCE HYDROCHLOROTHIAZIDE 25MG TAB TAKE ONE-HALF TABLET BY MOUTH ACTIVE ONCE DAILY FOR HIGH BLOOD PRESSURE LORAZEPAM 0.5MG TAB TAKE ONE HALF TABLET BY MOUTH TWICE ACTIVE DAILY NEEDED MELATONIN 5MG CAP/TAB TAKE ONE CAPSULE/TABLET BY MOUTH AT ACTIVE (S) BEDTIME FOR INSOMNIA MIRTAZAPINE 15MG TAB TAKE ONE AND ONE-HALF TABLETS BY ACTIVE MOUTH AT BEDTIME NUTRITION SUPL ENSURE PLUS/CONNIE LIQUID DRINK 1 CAN BY HOLD MOUTH TWICE DAILY PANTOPRAZOLE NA 40MG EC [...] [place] 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 trazodone--on many years, we have tried to reduce without much success. Helpful for sleep, denies orthostasis. mirtazapine 15mg--has been helpful for sleep and appetite melatonin bupropion SR 200mgqam--has seemed helpful for mood, no increase in anxiety MENTAL STATUS EXAM: Awake, alert, cooperative, well groomed, using cane, a little unsteady. Appears in less pain. No abnormal movements. Speech nml r/r/r/v/p Mood doing ok Affect: constricted Thought Process Linear, logical Thought Content: No obsessions, no delusions, more hopeful, no true hallucinations SI/HI: Denies today a/ox4 I/J good ASESSMENT 82yo man, living alone (partner Suzi [...] of falls on trazodone and mirtazapine. PLAN -cont mirtazapine to 22.5mg for anxiety, sleep, mood. -cont 0.25mg lorazepam BID PRN for anxiety and nausea for now with plan to taper off in next few weeks. -cont to work on smoking cessation -cont trazodone to 50mg at bedtime--try to taper off -consider restarting bupropion--it had been helpful for mood but was stopped by an ER provider when vet came in anxious. No indication that it was causing anxiety. - Cont melatonin 5 mg at HS for sleep - [facility] Sleep medicine - Cardiology - Hematology F/U - Pain management follow up REFILLS/COVERAGE okay for refills FOLLOW UP IN CLINIC 2mos TIME SPENT FACE TO FACE:30m TOTAL TIME INCLUDING CHART REVIEW AND DOCUMENTATION:40m [...] and updated. /reginaldo/ LANA COLINDRES PSYCHIATRIST Signed: 03/12/2024 14:12 LANA COLINDRES [facility] [place] [facility] Mar 07, 2024 09:02 AM PSYCHIATRY NOTE: LOCAL TITLE: PSYCHIATRY NOTE STANDARD TITLE: PSYCHIATRY NOTE DATE OF NOTE: MAR 07, 2024@09:02 ENTRY DATE: MAR 07, 2024@09:02:08 AUTHOR: LANA COLINDRES EXP COSIGNER: URGENCY: STATUS: COMPLETED PSYCHIATRY NOTE Has ADDENDA PSYCHIATRY FOLLOW UP VISIT GUSTAVO ARAMBULA SR is a 83yo MARITAL STATUS - WHITE MALE with a history of [employer] FROM December TO Oct INTERVAL HISTORY Vet was not aware we had an appt today. Via phone, he notes anxiety is better with the lorazepam, sometimes he takes it x2. Afternoons are worse. No falls. Nausea is still an issue, thinks it is because of the buprenorphine patch--he would like to get off it because his pain is better now, thinks he doesn't need it. Has an echo today. CURRENT MEDICATIONS Active Outpatient Medications (including Supplies): [...] PATCH TO SKIN EVERY 5 ACTIVE DAYS FOR PAIN (REMOVE PATCH BEFORE APPLYING A NEW PATCH) DEPEND UNDERWEAR,MAXIMUM,MEN SM/MED USE 1 BRIEF ACTIVE DIRECTED TWICE DAILY FOR INCONTINENCE HYDROCHLOROTHIAZIDE 25MG TAB TAKE ONE-HALF TABLET BY MOUTH ACTIVE ONCE DAILY FOR HIGH BLOOD PRESSURE LORAZEPAM 0.5MG TAB TAKE ONE HALF TABLET BY MOUTH TWICE ACTIVE DAILY NEEDED MELATONIN 5MG CAP/TAB TAKE ONE CAPSULE/TABLET BY MOUTH AT ACTIVE (S) BEDTIME FOR INSOMNIA MIRTAZAPINE 15MG TAB TAKE ONE AND ONE-HALF TABLETS BY ACTIVE MOUTH AT BEDTIME NUTRITION SUPL ENSURE PLUS/CONNIE LIQUID DRINK 1 CAN BY HOLD MOUTH TWICE DAILY PANTOPRAZOLE NA 40MG EC [...] [place] Communication authorization R69. 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 12/25/2023 TRACY VILLANUEVA POLYPS, COLON/LG BOWEL (BENIGN MAEGAN 10/31/2013 JOVANY NAYLOR Tobacco use (SNOMED CT [id number]) Z 02/20/2024 GUSTAVO MCKEON BMI: 25.4 SUBSTANCE USE: Alcohol: None MJ: None Tobacco: need to review Caffeine: 1 cup daily Opiates: denies Cocaine: denies Other: denies PREVIOUS PSYCHIATRIC MEDICATION TRIALS AND RESPONSE -Chantix--bad reaction. trazodone--on many years, we have tried to reduce without much success. Helpful for sleep, denies orthostasis. mirtazapine 15mg--has been helpful for sleep and appetite melatonin bupropion SR 200mgqam--has seemed helpful for mood, no increase in anxiety MENTAL STATUS EXAM: Awake, alert, cooperative, well groomed, using cane, a little unsteady. Appears in less pain. No abnormal movements. Speech nml r/r/r/v/p Mood doing ok Affect: constricted Thought Process Linear, logical Thought Content: No obsessions, no delusions, more hopeful, no true hallucinations SI/HI: Denies today a/ox4 I/J good ASESSMENT 82yo man, living alone (partner Suzi [...] of falls on trazodone and mirtazapine. PLAN -cont mirtazapine to 22.5mg for anxiety, sleep, mood. -cont 0.25mg lorazepam BID PRN for anxiety and nausea for now with plan to taper off in next few weeks. -cont to work on smoking cessation -cont trazodone to 50mg at bedtime--try to taper off -consider restarting bupropion--it had been helpful for mood but was stopped by an ER provider when vet came in anxious. No indication that it was causing anxiety. - Cont melatonin 5 mg at HS for sleep - [facility] Sleep medicine - Cardiology - Hematology F/U - Pain management follow up REFILLS/COVERAGE okay for refills FOLLOW UP IN CLINIC 2mos TIME SPENT FACE TO FACE:30m TOTAL TIME INCLUDING CHART REVIEW AND DOCUMENTATION:40m [...] of active outpatient prescriptions dispensed from this [place] (local) and dispensed from another [facility] or [...] and updated. /reginaldo/ LANA COLINDRES PSYCHIATRIST Signed: 03/12/2024 14:12 03/12/2024 ADDENDUM STATUS: COMPLETED Dr. Nichols--vet is asking to come off buprenorphine, feels like his pain is much better and he does not need it. Wanted advice for how to taper off. Next visit with you is Apr 08, but if you can give him a call sooner, that would be great. We are also using a small dose of lorazepam for severe anxiety, which will be temporary, but it would be great to get him off the opiate if not needed. Thanks~ /reginaldo/ LANA COLINDRES PSYCHIATRIST Signed: 03/12/2024 14:14 Receipt Acknowledged By: * AWAITING SIGNATURE * JOSE NORTON JESSICA E [facility]
--- OUTSIDE RECORDS SUMMARY | 2024-08-16 09:32 | XMS_ITS | Encounter Summary ---
Author Name [facility] [place] [facility] [place] [facility] [place] Address [address] [place] [address] Care Team Providers Care Mutuel Machine Operator Name Role Phone TRACY VILLANUEVA [...] PHI MEDEX BRONZ E December 19, 2013 [id number] GUSTAVO ARAMBULA SR PATIENT [employer] MEDICARE SUPPLEMEN PHI MEDIC ARE SUPPL EMENT Jul 21, 2007 NONE [id number] Edgar ARAMBULA PATIENT [place] MEDICARE SUPPLEMEN PHI MEDEX BRONZ E December 19, 2013 [id number] GUSTAVO ARAMBULA SR PATIENT [place] OF [place] ([place] MEDICARE SUPPLEMEN PHI MEDEX BRONZ E December 19, 2013 [id number] [phone] Edgar ARAMBULA PATIENT MEDICARE (WNR) MEDICARE () PART A Oct 19, 2004 PART A [id number] Edgar ARAMBULAN PATIENT MEDICARE (WNR) MEDICARE () PART B Oct 19, 2004 PART B [id number] Edgar ARAMBULA [place] PATIENT MEDICARE ([place]NR) MEDICARE () PART A Oct 19, 2004 PART A [id number] Edgar ARAMBULAN PATIENT MEDICARE (WNR) MEDICARE () PART B Oct 19, 2004 PART B [id number] Edgar ARAMBULAN PATIENT MEDICARE (WNR) MEDICARE () PART A Oct 19, 2004 PART A [id number] Edgar ARAMBULA [place] PATIENT MEDICARE ([place]) MEDICARE () PART B Oct 19, 2004 PART B [id number] Edgar ARAMBULAN PATIENT MEDICARE (WNR) MEDICARE () PART A Oct 19, 2004 PART A [id number] Edgar ARAMBULA PATIENT MEDICARE (WNR) MEDICARE () PART B Oct 19, 2004 PART B [id number] Edgar ARAMBULAN PATIENT MEDICARE (WNR) MEDICARE () PART A Oct 19, 2004 PART A [id number] Edgar ARAMBULAN PATIENT MEDICARE (WNR) MEDICARE () PART B Oct 19, 2004 PART B [id number] [phone] Edgar ARAMBULAN PATIENT Selected Encounter This section includes the information on record at [place] for the Encounter. Date/Time Encounter Type Encounter Description Reason Pro vider Source Mar 01, 2024 09:28 AM Outpatient Encounter PRIMARY CARE/MEDICINE IHE Encounter [...] data comes from all [place] treatment facilities. Appointment Date/Time Appointment Type Appointme nt Facility Name Mar 07, 2024 09:00 AM AMBULATORY - [facility]IATRY [facility] [place] [facility] Mar 08, 2024 08:30 AM AMBULATORY - NONE [facility] [place] [facility] Mar 11, 2024 09:00 AM AMBULATORY - MEDICINE [facility] Apr 04, 2024 11:00 AM AMBULATORY - PSYCHIATRY [facility] [place] [facility] Apr 08, 2024 09:30 AM AMBULATORY - MEDICINE [facility] [place] [facility] Apr 10, 2024 10:45 AM AMBULATORY - MEDICINE [facility] [place] [facility] Apr 26, 2024 11:00 AM AMBULATORY - MEDICINE [facility] [place] [facility] Apr 30, 2024 08:30 AM AMBULATORY - PS[facility]CHIATRY [facility] [place] [facility] May 01, 2024 11:00 AM AMBULATORY - NONE [facility] [place] [facility] May 14, 2024 11:30 AM AMBULATORY - MEDICINE [facility] May 31, 2024 11:00 AM AMBULATORY - REHAB MEDICIN E [facility] [place] [facility] May 31, 2024 12:00 PM AMBULATORY - MEDICINE [facility] [place] [facility] Jun 10, 2024 10:00 AM AMBULATORY - MEDICINE [facility] Jun 11, 2024 09:30 AM AMBULATORY - PS[facility]CHIATRY [facility] [place] [facility] Jun 13, 2024 10:00 AM AMBULATORY - MEDICINE [facility] [place] [facility] Jun 19, 2024 11:00 AM AMBULATORY - NONE [facility] [place] [facility] Jun 21, 2024 09:00 AM AMBULATORY - MEDICINE [facility] [place] [facility] Jun 21, 2024 09:15 AM AMBULATORY - MEDICINE [facility] [place] [facility] Jun 21, 2024 09:30 AM AMBULATORY - MEDICINE [facility] [place] [facility] Jun 26, 2024 08:00 AM AMBULATORY - MEDICINE [place] [facility] [place] [facility] Social History: Smoking Status (Most [...] 25, 2023 09:05 AM VA-TOBACCO NEVER USED [facility] [place] [facility] Tobacco Use History This section includes a history of the smoking, or tobacco-related health factors, that were collected on or before the date of the Encounter. The data comes from the [place] facility where the Encounter took place. Date/Time Smoking Status/Tobac co Use Comment Facility Dec 13, 2022 03:00 PM VA-TOBACCO DOESNT USE WI 30 MIN WAKEUP [facility] [place] [facility] Dec 13, 2022 03:00 PM VA-TOBACCO USE 30 YEARS OR MORE [facility] [place] [facility] Dec 13, 2022 03:00 PM VA-TOBACCO USE ADVICE [facility] [place] [facility] Dec 13, 2022 03:00 PM VA-TOBACCO USE MEDICAL OBSERVER NO [facility] [place] [facility] Dec 13, 2022 03:00 PM VA-TOBACCO USE MED NO [facility] [place] [facility] Dec 13, 2022 03:00 PM VA-TOBACCO USER EVERY DAY [facility] [place] [facility] Nov 17, 2021 10:00 AM VA-TOBACCO USE 30 YEARS OR MORE [facility] [place] [facility] Nov 17, 2021 10:00 AM VA-TOBACCO USE ADVICE [facility] [place] [facility] Nov 17, 2021 10:00 AM VA-TOBACCO USE MEDICAL OBSERVER NO [facility] [place] [facility] Nov 17, 2021 10:00 AM VA-TOBACCO USE MED NO [facility] [place] [facility] Nov 17, 2021 10:00 AM VA-TOBACCO USE WI 30 MIN OF WAKEUP [facility] [place] [facility] Nov 17, 2021 10:00 AM VA-TOBACCO USER EVERY DAY [facility] Oct 14, 2013 12:55 PM V1-PT NOT INTERESTED IN QUIT TOBACCO USE [facility] [place] [facility] May 07, 2013 05:04 PM CURRENT SMOKER trying to stop [facility] [place] [facility] May 07, 2013 05:04 PM V1-PT DECLINES REF TO TOBACCO CESS [facility] May 07, 2013 05:04 PM V1-PT DECLINES TOBACCO CESSATION MEDS [facility] May 07, 2013 05:04 PM V1-PT READY TO QUIT TOBACCO USE [facility] Dec 03, 2012 08:23 AM V1-PT DECLINES REF TO TOBACCO CESS PRGM [facility] [place] [facility] Dec 03, 2012 08:23 AM V1-PT DECLINES TOBACCO CESSATION MEDS [facility] Dec 03, 2012 08:23 AM V1-PT THINKING ABOUT QUIT TOBACCO USE [facility] Jun 05, 2012 08:45 AM CURRENT SMOKER 1/2ppd [facility] Jun 05, 2012 08:45 AM V1-PT DECLINES REF TO TOBACCO CESS PRGM [facility] Jun 05, 2012 08:45 AM V1-PT THINKING ABOUT QUIT TOBACCO USE [facility] Jun 05, 2012 08:45 AM V1-TOBACCO CESS MEDS NOT PRESCRIBED Vet wants to talk to his provider-He is nervous about taking meds to quit- but he is interested in quitting [facility] Nov 25, 2011 09:14 AM V1-PT DECLINES REF TO TOBACCO CESS PR[facility] Nov 25, 2011 09:14 AM V1-PT DECLINES TOBACCO CESSATION MEDS [facility] Nov 25, 2011 09:14 AM V1-PT THINKING ABOUT QUIT [facility]BACCO [facility] May 06, 2011 01:02 PM CURRENT SMOKER [facility] [place] [facility] May 06, 2011 01:02 PM V1-PT DECLINES TOBACCO CESSATION MEDS [facility] [place] [facility] May 06, 2011 01:02 PM V1-PT NOT INTERESTED IN QUIT TOBACCO USE [facility] [place] [facility] Sep 24, 2010 08:51 AM V1-PT DECLINES TOBACCO CESSATION MEDS [facility] [place] [facility] Sep 24, 2010 08:51 AM V1-PT THINKING ABOUT QUIT TOBACCO USE [facility] [place] [facility] Mar 22, 2010 07:58 AM CURRENT SMOKER 1/2 ppd [facility] [place] [facility] Feb 25, 2009 12:05 PM QUIT TOBACCO USE IN PAST YEAR [facility] [place] [facility] Aug 26, 2008 09:28 AM CURRENT SMOKER 1/2 ppd [facility] [place] [facility] Aug 26, 2008 09:28 AM V1-PT DECLINES REF TO TOBACCO CESS PRGM [facility] [place] [facility] Aug 26, 2008 09:28 AM V1-PT READY TO QUIT TOBACCO USE [facility] [place] [facility] Dec 19, 2007 10:08 AM V1-PT DECLINES REF TO TOBACCO CESS PRGM [facility] [place] [facility] Dec 19, 2007 10:08 AM V1-PT DECLINES TOBACCO CESSATION MEDS [facility] [place] [facility] Dec 19, 2007 10:08 AM V1-PT THINKING ABOUT QUIT TOBACCO USE [facility] [place] [facility] Sep 11, 2007 11:10 AM CURRENT SMOKER [facility] [place] [facility] Sep 11, 2007 11:10 AM V1-PT DECLINES REF TO TOBACCO CESS PRGM [facility] [place] [facility] Sep 11, 2007 11:10 AM V1-PT DECLINES TOBACCO CESSATION MEDS [facility] [place] [facility] Sep 11, 2007 11:10 AM V1-PT THINKING ABOUT QUIT TOBACCO USE [facility] [place] [facility] Feb 13, 2007 01:46 PM V1-PT DECLINES REF TO TOBACCO CESS PR[facility] [place] [facility] Feb 13, 2007 01:46 PM V1-PT DECLINES TOBACCO CESSATION MEDS [facility] [place] [facility] Feb 13, 2007 01:46 PM V1-PT THINKING ABOUT QUIT TOBACCO USE [facility] Oct 02, 2006 08:28 AM QUIT TOBACCO USE IN PAST YEAR 3 months ago [facility] Aug 19, 2005 08:33 AM QUIT TOBACCO USE IN PAST YEAR nonsmoker [facility] Sep 21, 2004 09:54 AM CURRENT SMOKER [facility] Sep 07, 2004 08:07 AM CURRENT SMOKER [facility] Sep 15, 2003 11:21 AM CURRENT SMOKER smokes one pk day [facility] Jul 23, 2003 01:57 PM CURRENT SMOKER [...] Apr 10, 2023 ADVANCE DIRECTIVE CARLOSESSIE STUBBS [facility] Apr 19, 2007 ADVANCE DIRECTIVE SHIRA JOHNSONADRIJason CASH [facility] Radiology Reports: +/- 30 days of [...] (Req'g Loc) Img Loc: NHM/CT Service: Unknown [facility] [facility] , (Case [id number] COMPLETE) CT THORAX W/O CONT (CT Detailed) CPT:97016 Reason for Study: smoker x 65 years Clinical History: Report Status: Verified Date Reported: FEB 20, 2024 Date Verified: FEB 20, 2024 Crematory Attendant E-Sig: Report: CT THORAX W/O CONT HISTORY: smoker x 65 years COMPARISON: April 19, 2006 TECHNIQUE: Helical CT of the chest, with multiplanar reformats including maximum intensity projection (MIP) reconstructions, was performed at the local [place] facility. 1019 images were received by the [place] National Teleradiology Program (NTP) for interpretation. RADIATION [...] as above. READING PHYSICIAN: Ck Jean M.D. -[phone] 02/20/2024 12:57 PDT [facility] National Teleradiology Program [phone] (For Medical Practitioner Use Only) Attention Patients / Veterans: If you have questions or concerns about these test results, please contact your ordering provider or primary care team. Primary Diagnostic Code: SIGNIFICANT ABNORMALITY, ATTN NEEDED Primary Interpreting Staff: RADIOLOGY,OUTSIDE SERVICE, Staff Physician / RADIOLOGY,OUTSIDE SERVICE [facility] Encounter Notes: All associated encounter notes This section contains the clinical notes associated to the Encounter. Date/Time Encounter Note(s) Provider Source Mar 01, 2024 09:32 AM ADDENDUM: LOCAL TITLE: Addendum STANDARD TITLE: ADDENDUM DATE OF NOTE: MAR 01, 2024@09:32:59 ENTRY DATE: MAR 01, 2024@09:33 AUTHOR: ZACHARY ABBOTT EXP COSIGNER: URGENCY: STATUS: COMPLETED Adding PCP to review and advise. /es/ ZACHARY ABBOTT RN REGISTERED NURSE Signed: 03/01/2024 09:33 Receipt Acknowledged By: 03/01/2024 10:32 /es/ GUSTAVO MCKEON PA-C STAFF PHYSICIAN ELEPHANT KEEPER for TRACY VILLANUEVA --- Original Document --- 03/01/24 WALK-IN NOTE PRIMARY CARE (T): <====Click to Start Advanced [facility] presents to the Primary Care clinic with the following request: [ X ]Medication Renewal/Refill melatonin [ ]Consultation with Team RN [ ]Symptoms [ ]Other [facility] states they are: [ ]Waiting [ X ]Not Waiting No Walk in visit scheduled with PACT Nurse [ X ] At this encounter the [facility]'s demographics were verified. [ X ] At this encounter the 's Insurance information was verified. [ X ] At this encounter the below scheduled visits for [facility] were discussed and appointment reminder card was offered. Future appointments: 03/07/2024 09:00 CWM/NO/MHC/COLINDRES 1 03/08/2024 08:30 CWM/SO/NUTRITION1 03/12/2024 11:30 CWM/SO/PACT 7 04/08/2024 09:30 CWM/NO/VVC/PAIN [facility] CLINIC 04/10/2024 10:45 COM CARE-GI GENERAL came in to renew medication melatonin. Please renew, fill and mail when ready. /reginaldo/ JEANNE SMITH Signed: 03/01/2024 09:29 Receipt Acknowledged By: 03/01/2024 09:33 /es/ ZACHARY ABBOTT, HÉCTOR REGISTERED NURSE * AWAITING SIGNATURE * MARCUS DOZIER MICHELLE [place] Mar 01, 2024 09:28 AM PRIMARY CARE NOTE: LOCAL TITLE: WALK-IN NOTE PRIMARY CARE (T) STANDARD TITLE: PRIMARY CARE NOTE DATE OF NOTE: MAR 01, 2024@09:28 ENTRY DATE: MAR 01, 2024@09:28:09 AUTHOR: JEANNE TURNER EXP COSIGNER: URGENCY: STATUS: COMPLETED WALK-IN NOTE PRIMARY CARE (T) Has ADDENDA <====Click to Start [facility] presents to the Primary Care clinic with the following request: [ X ]Medication Renewal/Refill melatonin [ ]Consultation with Team RN [ ]Symptoms [ ]Other The states they are: [ ]Waiting [ X ]Not Waiting No Walk in visit scheduled with PACT Nurse [ X ] At this encounter the [facility]'s demographics were verified. [ X ] At this encounter the 's Insurance information was verified. [ X ] At this encounter the below scheduled visits for [facility] were discussed and appointment reminder card was offered. Future appointments: 03/07/2024 09:00 CWM/NO/MHC/COLINDRES 1 03/08/2024 08:30 CWM/SO/NUTRITION1 03/12/2024 11:30 CWM/SO/PACT 7 04/08/2024 09:30 CWM/NO/VVC/PAIN MD CLINIC 04/10/2024 10:45 COM CARE-GI GENERAL [facility] came in to renew medication melatonin. Please renew, fill and mail when ready. /es/ JEANNE SMITH Signed: 03/01/2024 09:29 Receipt Acknowledged By: 03/01/2024 09:33 /es/ ZACHARY ABBOTT RN REGISTERED NURSE 03/04/2024 09:16 /es/ MARCUS DOZIER LPN LPN 03/01/2024 ADDENDUM STATUS: COMPLETED Adding PCP to review and advise. /es/ ZACHARY ABBOTT RN REGISTERED NURSE Signed: 03/01/2024 09:33 Receipt Acknowledged By: 03/01/2024 10:32 /es/ GUSTAVO MCKEON PA-C STAFF PHYSICIAN ELEPHANT KEEPER for JEANNE CAO
--- OUTSIDE RECORDS SUMMARY | 2024-08-16 09:32 | XMS_ITS | Encounter Summary ---
Author Name [facility] [place] Organization [facility] [place] Address [address] [place] [address] Care Team Providers Care Tax Investigator Name Role Phone TRACY VILLANUEVA Primary Care [...] PHI MEDEX BRONZ E December 19, 2013 [id number] [phone] GUSTAVO ARAMBULA SR PATIENT [employer] MEDICARE SUPPLEMEN PHI MEDIC ARE SUPPL EMENT Jul 21, 2007 NONE [id number] Edgar ARAMBULA PATIENT [place] SUPPLEMEN PHI MEDEX BRONZ E December 19, 2013 [id number] GUSTAVO ARAMBULA SR PATIENT [place] MEDICARE SUPPLEMEN PHI MEDEX BRONZ E December 19, 2013 [id number] Edgar ARAMBULA PATIENT MEDICARE (WNR) MEDICARE () PART A Oct 19, 2004 PART A [id number] Edgar ARAMBULA PATIENT MEDICARE (WNR) MEDICARE (M) PART B Oct 19, 2004 PART B [id number] Edgar ARAMBULA [place] PATIENT MEDICARE (WNR) MEDICARE () PART A Oct 19, 2004 PART A [id number] Edgar ARAMBULAN PATIENT MEDICARE (WNR) MEDICARE () PART B Oct 19, 2004 PART B [id number] Edgar ARAMBULAN PATIENT MEDICARE (WNR) MEDICARE () PART A Oct 19, 2004 PART A [id number] [phone] Edgar ARAMBULAN PATIENT MEDICARE (WNR) MEDICARE () PART B Oct 19, 2004 PART B [id number] Edgar ARAMBULAN PATIENT MEDICARE (WNR) MEDICARE () PART A Oct 19, 2004 PART A [id number] Edgar ARAMBULA PATIENT MEDICARE (WNR) MEDICARE () PART B Oct 19, 2004 PART B [id number] Edgar ARAMBULAN PATIENT MEDICARE (WNR) MEDICARE () PART A Oct 19, 2004 PART A [id number] Edgar ARAMBULAN PATIENT MEDICARE (WNR) MEDICARE () PART B Oct 19, 2004 PART B [id number] [phone] Edgar ARAMBULAN PATIENT Selected Encounter This section includes the information on record at [place] for the Encounter. Date/Time Encounter Type Encounter Description Reason Pro vider Source January 09, 2024 12:00 PM Outpatient Encounter COMMUNITY CARE CONSULT [...] 20 appointments. The data comes from all [place] treatment facilities. Appointment Date/Time Appointment Type Appointme nt Facility Name Feb 05, 2024 10:00 AM AMBULATORY [facility] MEDICINE [facility] [place] [facility] Feb 13, 2024 11:30 AM AMB[facility]ATORY - MEDICINE [facility] Feb 15, 2024 09:00 AM AMBULATORY - PSYCHIATRY [facility] [place] [facility] Feb 15, 2024 09:45 AM AMBULATORY - NONE [facility] [place] [facility] Mar 07, 2024 09:00 AM AMBULATORY - PSYCHIATRY [facility] [place] [facility] Mar 08, 2024 08:30 AM AMBULATORY - NONE [facility] [place] [facility] Mar 11, 2024 09:00 AM AMBULATORY - MEDICINE [facility] Apr 04, 2024 11:00 AM AMBULATORY - PSYCHIATRY [facility] [place] [facility] Apr 08, 2024 09:30 AM AMBULATORY - MEDICINE [facility] [place] [facility] Apr 10, 2024 10:45 AM AMBULATORY - MEDICINE [facility] [place] [facility] Apr 26, 2024 11:00 AM AMBULATORY - MEDICINE [facility] [place] [facility] Apr 30, 2024 08:30 AM AMBULATORY - PSYCHIATRY [facility] [place] [facility] May 01, 2024 11:00 AM AMBULATORY - NONE [facility] [place] [facility] May 14, 2024 11:30 AM AMBULATORY - MEDICINE [facility] May 31, 2024 11:00 AM AMBULATORY - REHAB MEDICIN E [facility] [place] [facility] May 31, 2024 12:00 PM AMBULATORY - MEDICINE [facility] [place] [facility] Jun 10, 2024 10:00 AM AMBULATORY - MEDICINE [facility] Jun 11, 2024 09:30 AM AMBULATORY - PSYCHIATRY [facility] [place] [facility] Jun 13, 2024 10:00 AM AMBULATORY - MEDICINE [facility] [place] [facility] Jun 19, 2024 11:00 AM AMBULATORY - NONE [facility] Lab Results: +/- 30 days of the encounter This section includes the Chemistry and Hematology Lab Results on record with [place] for the patient. Radiology Reports and Pathology Reports are provided separately, in subsequent sections. Lab Results This section contains the Chemistry/Hematology Results that were resulted 30 days before or 30 daysafter the date of the Encounter. Date/Time Source Result Type Result - Unit Interpretation Reference Range Comment December 25, 2023 09:26 AM [facility] FERRITIN Specimen Type: SERUM No comment entered. Ordering Provider: TRACY VILLANUEVA Report Released Date/Time: Dec 19, 2023 08:37 AM Reporting Lab: [address] [address] Performing Lab: [address] [address] FERRITIN 25 ng/mL 20-300 December 25, 2023 09:26 AM [facility] HEMOGLOBIN A1C PANEL Specimen Type: BLOOD Comment: [...] Dec 19, 2023 08:37 AM Reporting Lab: [address] [address] Performing Lab: [address] [address] HEMOGLOBIN A1C 7.7 H 4.0-5.6 December 25, 2023 09:26 AM [facility] LIVER FUNCTION Specimen Type: SERUM No comment entered. Ordering Provider: TRACY VILLANUEVA Report Released Date/Time: Dec 19, 2023 08:37 AM Reporting Lab: [address] [address] Performing Lab: [address] [address] PROTEIN,TOTAL 7.0 g/dL 6.0-8.3 ALBUMIN 3.9 g/dL 3.5-5.0 ALKALINE PHOSPHATASE 90 U/L 40-150 AST 17 U/L 5-34 ALT 20 U/L BILIRUBIN, TOTAL 0.6 mg/dL 0.2-1.2 December 25, 2023 09:26 AM [facility] CBC Specimen Type: BLOOD No comment entered. Ordering Provider: TRACY VILLANUEVA Report Released Date/Time: Dec 19, 2023 08:37 AM Reporting Lab: [address] [address] Performing Lab: [address] [address] WBC 9.74 10*3/uL 4.50-11.00 RBC 4.50 10*6/uL 4.23-5.66 HGB 12.5 g/dL L 12.8-17 HCT 36.2 L 39.2-50.4 MCV 80.4 fL L 82-99 MCHC 34.5 g/dL 30.8-35.1 PLT 275 10*3/uL 140-360 RDW-CV 13.7 12.0-16.0 MCH 27.8 pg 26.2-32.6 December 25, 2023 09:26 AM [facility] BASIC METABOLIC PANEL (non-fasting) Spe cimen Type: SERUM No comment entered. Ordering Provider: TRACY VILLANUEVA Report Released Date/Time: Dec 19, 2023 08:37 AM Reporting Lab: [address] [address] Performing Lab: [address] [address] UREA NITROGEN 12 mg/dL 7-25 GLUCOSE 240 mg/dL H 65-100 SODIUM 135 mmol/L 135-145 POTASSIUM 4.2 mmol/L 3.5-5.0 CHLORIDE 102 mmol/L 100-110 CO2 24 meq/L 20-30 CREATININE, Serum 0.78 mg/dL 0.50-1.40 eGFR(CKD-EPI 2020) 88 mL/min >60 December 25, 2023 09:26 AM [facility] MICROALBUMIN CREATININE RATIO PANEL Spe cimen Type: URINE No comment entered. Ordering Provider: TRACY VILLANUEVA Report Released Date/Time: Dec 19, 2023 08:37 AM Reporting Lab: [facility] [place] [facility] [address] [facility] [facility] [address] Performing Lab: [facility] [place] [facility] [address] [facility] [address] MICROALBUMIN/C REATININE RATIO 23.9 mg/g 0-29.9 MICROALBUMIN,Q UANTITATIVE 0.7 mg/dL RR UNAVAIL CREATININE URINE 29.30 mg/dL Social History: Smoking Status (Most current) and Tobacco Use (All prior to encounter date) This section includes the most current, and the historical, smoking and tobacco- related health factors from the [place] facility where the Encounter took place. Current Smoking Status This section includes the most current smoking, or tobacco-related health factor, from the [place] facility where the Encounter took place. Date/Time Current Smoking Status Comment Facil ity December 25, 2023 09:05 AM VA-TOBACCO NEVER USED [facility] Tobacco Use History This section includes a history of the smoking, or tobacco-related health factors, that were collected on or before the date of the Encounter. The data comes from the [place] facility where the Encounter took place. Date/Time Smoking Status/Tobac co Use Comment Facility Dec 13, 2022 03:00 PM VA-TOBACCO DOESNT USE WI 30 MIN WAKEUP [facility] [place] [facility] Dec 13, 2022 03:00 PM VA-TOBACCO USE 30 YEARS OR MORE [facility] [place] [facility] Dec 13, 2022 03:00 PM VA-TOBACCO USE ADVICE [facility] [place] [facility] Dec 13, 2022 03:00 PM VA-TOBACCO USE POKER IN NO [facility] [place] [facility] Dec 13, 2022 03:00 PM VA-TOBACCO USE MED NO [facility] [place] [facility] Dec 13, 2022 03:00 PM VA-TOBACCO USER EVERY DAY [facility] [place] [facility] Nov 17, 2021 10:00 AM VA-TOBACCO USE 30 YEARS OR MORE [facility] [place] [facility] Nov 17, 2021 10:00 AM VA-TOBACCO USE ADVICE [facility] [place] [facility] Nov 17, 2021 10:00 AM VA-TOBACCO USE POKER [facility] NO [facility] Nov 17, 2021 10:00 AM [facility] Nov 17, 2021 10:00 AM VA-TOBACCO USE WI 30 MIN [facility] WAKEUP [facility] Nov 17, 2021 10:00 AM VA-TOBACCO USER EVERY DAY [facility] Oct 14, 2013 12:55 PM V1-PT NOT INTERESTED IN QUIT TOBACCO [facility] May 07, 2013 05:04 PM CURRENT SMOKER trying to stop [facility] May 07, 2013 05:04 PM V1-PT DECLINES REF TO TOBACCO CESS PRGM [facility] May 07, 2013 05:04 PM V1-PT DECLINES TOBACCO CESSATION MEDS [facility] May 07, 2013 05:04 PM V1-PT READY TO QUIT [facility]BACCO [facility] Dec 03, 2012 08:23 AM V1-PT DECLINES REF TO TOBACCO CESS PRGM [facility] Dec 03, 2012 08:23 AM V1-PT DECLINES TOBACCO CESSATION MEDS [facility] Dec 03, 2012 08:23 AM V1-PT THINKING ABOUT QUIT [facility]BACCO [facility] Jun 05, 2012 08:45 AM CURRENT SMOKER 1/[facility]ppd [facility] Jun 05, 2012 08:45 AM V1-PT DECLINES REF TO TOBACCO CESS PRGM [facility] Jun 05, 2012 08:45 AM V1-PT THINKING ABOUT QUIT TOBACCO [facility] Jun 05, 2012 08:45 AM V1-TOBACCO CESS MEDS NOT PRESCRIBED Vet wants to talk to his provider-He is nervous about taking meds to quit- but he is interested in quitting [facility] Nov 25, 2011 09:14 AM V1-PT DECLINES REF TO TOBACCO CESS PRGM [facility] [place] [facility] Nov 25, 2011 09:14 AM V1-PT DECLINES TOBACCO CESSATION MEDS [facility] [place] [facility] Nov 25, 2011 09:14 AM V1-PT THINKING ABOUT QUIT TOBACCO USE [facility] [place] [facility] May 06, 2011 01:02 PM CURRENT SMOKER [facility] [place] [facility] May 06, 2011 01:02 PM V1-PT DECLINES TOBACCO CESSATION MEDS [facility] [place] [facility] May 06, 2011 01:02 PM V1-PT NOT INTERESTED IN QUIT TOBACCO USE [facility] [place] [facility] Sep 24, 2010 08:51 AM V1-PT DECLINES TOBACCO CESSATION MEDS [facility] [place] [facility] Sep 24, 2010 08:51 AM V1-PT THINKING ABOUT QUIT TOBACCO USE [facility] [place] [facility] Mar 22, 2010 07:58 AM CURRENT SMOKER 1/2 ppd [facility] [place] [facility] Feb 25, 2009 12:05 PM QUIT TOBACCO USE IN PAST YEAR [facility] [place] [facility] Aug 26, 2008 09:28 AM CURRENT SMOKER 1/2 ppd [facility] [place] [facility] Aug 26, 2008 09:28 AM V1-PT DECLINES REF TO TOBACCO CESS PRGM [facility] [place] [facility] Aug 26, 2008 09:28 AM V1-PT READY TO QUIT TOBACCO USE [facility] [place] [facility] Dec 19, 2007 10:08 AM V1-PT DECLINES REF TO TOBACCO CESS PRGM [facility] [place] [facility] Dec 19, 2007 10:08 AM V1-PT DECLINES TOBACCO CESSATION MEDS [facility] [place] [facility] Dec 19, 2007 10:08 AM V1-PT THINKING ABOUT QUIT TOBACCO USE [facility] [place] [facility] Sep 11, 2007 11:10 AM CURRENT SMOKER [facility] [place] [facility] Sep 11, 2007 11:10 AM V1-PT DECLINES REF TO TOBACCO CESS PRGM [facility] [place] [facility] Sep 11, 2007 11:10 AM V1-PT DECLINES TOBACCO CESSATION MEDS [facility] [place] [facility] Sep 11, 2007 11:10 AM V1-PT THINKING ABOUT QUIT TOBACCO [facility] Feb 13, 2007 01:46 PM V1-PT DECLINES REF TO TOBACCO CESS PRGM [facility] Feb 13, 2007 01:46 PM V1-PT DECLINES TOBACCO CESSATION MEDS [facility] Feb 13, 2007 01:46 PM V1-PT THINKING ABOUT QUIT TOBACCO USE [facility] Oct 02, 2006 08:28 AM QUIT TOBACCO USE IN PAST YEAR 3 months ago [facility] Aug 19, 2005 08:33 AM QUIT TOBACCO USE IN PAST YEAR nonsmoker [facility] Sep 21, 2004 09:54 AM CURRENT SMOKER [facility] Sep 07, 2004 08:07 AM CURRENT SMOKER [facility] Sep 15, 2003 11:21 AM CURRENT SMOKER smokes one pk day [facility] Jul 23, 2003 01:57 PM CURRENT SMOKER [facility] Advance Directives: All historical and current Section Date Range: From patient's date of to the date document was created. This section includes ALL of a patient's completed or amended [place] Advance and Rescinded Directives. The entries below indicate that a directive exists for the patient, but an actual copy is not included with this document. The data comes from all [place] facilities. Date Advance Directives Provider Source Apr 10, 2023 ADVANCE DIRECTIVE ESSIE STARK [facility] Apr 19, 2007 [facility] Encounter Notes: All associated encounter notes This section contains the clinical notes associated to the Encounter. Date/Time Encounter Note(s) Provider Source January 09, 2024 12:00 PM NONVA CONSULT: LOCAL TITLE: COMMUNITY CARE-CONSULT RESULT COLONOSCOPY STANDARD TITLE: NONVA CONSULT DATE OF NOTE: JANUARY 09, 2024@12:00 ENTRY DATE: FEB 27, 2024@08:54:06 AUTHOR: ESSIE STARK EXP COSIGNER: URGENCY: STATUS: COMPLETED VistA Imaging - Scanned Document SCANNED DOCUMENT SIGNATURE NOT REQUIRED Electronically Filed: 02/27/2024 by: ESSIE TAN [facility] January 09, 2024 12:00 PM NONVA CONSULT: LOCAL TITLE: COMMUNITY CARE-CONSULT RESULT COLONOSCOPY STANDARD TITLE: NONVA CONSULT DATE OF NOTE: JANUARY 09, 2024@12:00 ENTRY DATE: MAR 02, 2024@08:50:25 AUTHOR: ORQUIDEA RUBY EXP COSIGNER: URGENCY: STATUS: COMPLETED VistA Imaging - Scanned Document SCANNED DOCUMENT SIGNATURE NOT REQUIRED Electronically Filed: 03/02/2024 by: ORQUIDEA RAMIREZ [facility]
--- OUTSIDE RECORDS SUMMARY | 2024-08-16 09:32 | XMS_ITS | Encounter Summary ---
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 MEDICARE SUPPLEMEN PHI MEDIC ARE SUPPL EMENT Jul 21, 2007 NONE [id number] [phone] Edgar ARAMBULA PATIENT [place]BS [place] MEDICARE SUPPLEMEN PHI MEDEX BRONZ E December 19, 2013 [id number] [phone] GUSTAVO ARAMBULA SR PATIENT [place] OF [place] ([place]ARD) MEDICARE SUPPLEMEN PHI MEDEX BRONZ E December 19, 2013 [id number] Edgar ARAMBULA PATIENT MEDICARE (WNR) MEDICARE () PART A Oct 19, 2004 PART A [id number] [id number] [id number] Edgar ARAMBULAN PATIENT MEDICARE (WNR) MEDICARE () PART B Oct 19, 2004 PART B [id number] 90A Edgar ARAMBULA [place] PATIENT MEDICARE (W[place]) MEDICARE () PART A Oct 19, 2004 PART A [id number] Edgar ARAMBULAN PATIENT MEDICARE (WNR) MEDICARE () PART B Oct 19, 2004 PART B [id number] [id number] Edgar ARAMBULAN PATIENT MEDICARE (WNR) MEDICARE () PART A Oct 19, 2004 PART A [id number] 90A Edgar ARAMBULA [place] PATIENT MEDICARE (WNR) MEDICARE () PART B Oct 19, 2004 PART B [id number] 90A Edgar ARAMBULAN PATIENT MEDICARE (WNR) MEDICARE () PART A Oct 19, 2004 PART A [id number] 90A Edgar ARAMBULA PATIENT MEDICARE (WNR) MEDICARE () PART B Oct 19, 2004 PART B [id number] [phone] Edgar ARAMBULAN PATIENT MEDICARE (WNR) MEDICARE () PART A Oct 19, 2004 PART A [id number] Edgar ARAMBULAN PATIENT MEDICARE (WNR) MEDICARE () PART B Oct 19, 2004 PART B [id number] [phone] Edgar ARAMBULAN PATIENT Selected Encounter This section includes the information on record at [place] for the Encounter. Date/Time Encounter Type Encounter Description Reason Pro vider Source Mar 11, 2024 12:00 AM Outpatient Encounter EVENT (HISTORICAL) [...] AMBULATORY - [facility]IATRY [facility] [place] [facility] Apr 08, 2024 09:30 AM AMBULATORY [facility] MEDICINE [facility] [place] [facility] Apr 10, 2024 10:45 AM AMBULATORY [facility] MEDICINE [facility] [place] [facility] Apr 26, 2024 11:00 AM AMBULATORY [facility] MEDICINE [facility] [place] [facility] Apr 30, 2024 08:30 AM AMBULATORY [facility] PS[facility]CHIATRY [facility] [place] [facility] May 01, 2024 11:00 AM AMBULATORY - NONE [facility] [place] [facility] May 14, 2024 11:30 AM AMBULATORY - MEDICINE [facility] May 31, 2024 11:00 AM AMBULATORY - REHAB MEDICIN E [facility] [place] [facility] May 31, 2024 12:00 PM AMBULATORY - MEDICINE [facility] [place] [facility] Jun 10, 2024 10:00 AM AMBULATORY - MEDICINE [facility] Jun 11, 2024 09:30 AM AMBULATORY - PS[facility]CHIATRY [facility] [place] [facility] Jun 13, 2024 10:00 AM AMBULATORY - MEDICINE [facility] [place] [facility] Jun 19, 2024 11:00 AM AMBULATORY - NONE [facility] [place] [facility] Jun 21, 2024 09:00 AM AMBULATORY - MEDICINE [facility] [place] [facility] Jun 21, 2024 09:15 AM AMBULATORY - MEDICINE [facility] [place] [facility] Jun 21, 2024 09:30 AM AMBULATORY [facility] MEDICINE [facility] [place] [facility] Jun 26, 2024 08:00 AM AMBULATORY - MEDICINE [facility] [place] [facility] Jul 05, 2024 09:00 AM AMBULATORY - REHAB MEDICIN E [facility] [place] [facility] Jul 30, 2024 09:30 AM AM[place] [facility] [place] [facility] Aug 05, 2024 09:45 AM AM[place]ULATORY [place]ICINE [place] [facility] [place] [facility] Social History: Smoking Status (Most current) [...] AM VA-TOBACCO NEVER [facility]ED [place] [facility] Tobacco Use History This section includes a history of the smoking, or tobacco-related health factors, that were collected on or before the date of the Encounter. The data comes from the [place] facility where the Encounter took place. 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 [facility] [place] [facility] Dec 13, 2022 03:00 PM VA-TOBACCO USE MED NO [facility] [place] [facility] Dec 13, 2022 03:00 PM VA-TOBACCO USER EVERY DAY [facility] [place] [facility] Nov 17, 2021 10:00 AM VA-TOBACCO USE 30 YEARS OR MORE [facility] [place] [facility] Nov 17, 2021 10:00 AM VA-TOBACCO USE ADVICE [facility] [place] [facility] Nov 17, 2021 10:00 AM 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 [facility] [place] [facility] Nov 17, 2021 10:00 AM VA-TOBACCO USE MED NO [facility] [place] [facility] Nov 17, 2021 10:00 AM VA-TOBACCO USE WI 30 MIN OF WAKEUP [facility] Nov 17, 2021 10:00 AM VA-TOBACCO USER EVERY DAY [facility] Oct 14, 2013 12:55 PM V1-PT NOT INTERESTED IN QUIT TOBACCO USE [facility] May 07, 2013 05:04 PM CURRENT SMOKER trying to stop [facility] May 07, 2013 05:04 PM V1-PT DECLINES REF TO TOBACCO CESS [facility] May 07, 2013 05:04 PM V1-PT DECLINES TOBACCO CESSATION MEDS [facility] May 07, 2013 05:04 PM V1-PT READY TO QUIT TOBACCO USE [facility] Dec 03, 2012 08:23 AM V1-PT DECLINES REF TO TOBACCO CESS PRGM [facility] Dec 03, 2012 08:23 AM V1-PT DECLINES TOBACCO CESSATION MEDS [facility] Dec 03, 2012 08:23 AM V1-PT THINKING ABOUT QUIT TOBACCO USE [facility] Jun 05, 2012 08:45 AM CURRENT SMOKER 1/2ppd [facility] Jun 05, 2012 08:45 AM V1-PT DECLINES REF TO TOBACCO CESS PRGM [facility] Jun 05, 2012 08:45 AM V1-PT THINKING ABOUT QUIT TOBACCO USE [facility] Jun 05, 2012 08:45 AM V1-TOBACCO CESS MEDS NOT PRESCRIBED Vet wants to talk to his provider-He is nervous about taking meds to quit- but [facility] Nov 25, 2011 09:14 AM V1-PT DECLINES REF TO TOBACCO CESS PRGM [facility] Nov 25, 2011 09:14 AM V1-PT DECLINES TOBACCO CESSATION MEDS [facility] Nov 25, 2011 09:14 AM V1-PT THINKING ABOUT QUIT TOBACCO USE [facility] May 06, 2011 01:02 PM CURRENT SMOKER [facility] [place] [facility] May 06, 2011 01:02 PM V1-PT DECLINES TOBACCO CESSATION MEDS [facility] [place] [facility] May 06, 2011 01:02 PM V1-PT NOT INTERESTED IN QUIT TOBACCO USE [facility] [place] [facility] Sep 24, 2010 08:51 AM V1-PT DECLINES TOBACCO CESSATION MEDS [facility] [place] [facility] Sep 24, 2010 08:51 AM V1-PT THINKING ABOUT QUIT TOBACCO USE [facility] [place] [facility] Mar 22, 2010 07:58 AM CURRENT SMOKER 1/2 ppd [facility] [place] [facility] Feb 25, 2009 12:05 PM QUIT TOBACCO USE IN PAST YEAR [facility] [place] [facility] Aug 26, 2008 09:28 AM CURRENT SMOKER 1/2 ppd [facility] [place] [facility] Aug 26, 2008 09:28 AM V1-PT DECLINES REF TO TOBACCO CESS PRGM [facility] [place] [facility] Aug 26, 2008 09:28 AM V1-PT READY TO QUIT TOBACCO USE [facility] [place] [facility] Dec 19, 2007 10:08 AM V1-PT DECLINES REF TO TOBACCO CESS PRGM [facility] [place] [facility] Dec 19, 2007 10:08 AM V1-PT DECLINES TOBACCO CESSATION MEDS [facility] Dec 19, 2007 10:08 AM V1-PT THINKING ABOUT QUIT TOBACCO USE [facility] [place] [facility] Sep 11, 2007 11:10 AM CURRENT SMOKER [facility] [place] [facility] Sep 11, 2007 11:10 AM V1-PT DECLINES REF TO TOBACCO CESS PRGM [facility] [place] [facility] Sep 11, 2007 11:10 AM V1-PT DECLINES TOBACCO CESSATION MEDS [facility] [place] [facility] Sep 11, 2007 11:10 AM V1-PT THINKING ABOUT QUIT TOBACCO USE [facility] [place] [facility] Feb 13, 2007 01:46 PM V1-PT DECLINES REF TO TOBACCO CESS PRGM [facility] [place] [facility] Feb 13, 2007 01:46 PM V1-PT DECLINES TOBACCO CESSATION MEDS [facility] Feb 13, 2007 01:46 PM V1-PT THINKING ABOUT QUIT [facility] Oct 02, 2006 08:28 AM QUIT TOBACCO USE IN PAST YEAR 3 months ago [facility] Aug 19, 2005 08:33 AM QUIT TOBACCO USE IN PAST YEAR nonsmoker [facility] Sep 21, 2004 09:54 AM CUR[facility]MOKER [facility] Sep 07, 2004 08:07 AM [facility]KER [facility] Sep 15, 2003 11:21 AM CURRENT SMOKER smokes one pk day [facility] Jul 23, 2003 01:57 PM CURRENT [facility]MOKER [facility] Advance Directives: All historical and current [...] Apr 10, 2023 ADVANCE DIRECTIVE ESSIE STARK [facility] W [facility] Apr 19, 2007 ADVANCE DIRECTIVE VICTORIA [facility]NSON [facility] Radiology Reports: +/- 30 days of [...] AM CT THORAX W/O CONT: GUSTAVO ARAMBULA [id number] -1940 M Exm Date: FEB 15, 2024@09:56 Req Phys: TRACY VILLANUEVA Pat Loc: CWM/SO/PACT 7 (Req'g Loc) Img Loc: NHM/CT Service: Unknown [place] [facility]ON[facility] , (Case [id number] COMPLETE) CT THORAX W/O CONT (CT Detailed) CPT:75972 Reason for Study: smoker x 65 years Clinical History: Report Status: Verified Date Reported: FEB 20, 2024 Date Verified: FEB 20, 2024 Wildlife Biology Internship E-Sig: Report: CT THORAX W/O CONT [...] as above. READING PHYSICIAN: Ck Jean M.D. -[id number] 02/20/2024 12:57 PDT [facility] National Teleradiology Program [phone] (For Medical Practitioner Use Only) Attention Patients / Veterans: If you have questions or concerns about these test results, please contact your ordering provider or primary care team. Primary Diagnostic Code: SIGNIFICANT ABNORMALITY, ATTN NEEDED Primary Interpreting Staff: RADIOLOGY,OUTSIDE SERVICE, Staff Physician / RADIOLOGY,OUTSIDE SERVICE [place] [facility]
--- OUTSIDE RECORDS SUMMARY | 2024-08-16 09:32 | XMS_ITS | Encounter Summary ---
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 Name Role Phone TRACY VILLANUEVA Primary Care [...] PHI MEDEX BRONZ E December 19, 2013 [id number] GUSTAVO ARAMBULA SR PATIENT B[employer]ERS LIFE & CASUALTY MEDICARE SUPPLEMEN PHI MEDIC ARE SUPPL EMENT Jul 21, 2007 NONE [id number] Edgar ARAMBULA PATIENT [place] MED[place] SUPPLEMEN PHI MEDEX BRONZ E December 19, 2013 [id number] [phone] GUSTAVO ARAMBULA SR PATIENT [place] MEDICARE SUPPLEMEN PHI MEDEX BRONZ E December 19, 2013 [id number] [phone] Edgar ARAMBULA PATIENT MEDICARE (WNR) MEDICARE () PART A Oct 19, 2004 PART A [id number] 90A Edgar ARAMBULAN PATIENT MEDICARE (WNR) MEDICARE () PART B Oct 19, 2004 PART B [id number] [id number] Edgar ARAMBULA [place] PATIENT MEDICARE ([place]) MEDICARE () PART A Oct 19, 2004 PART A [id number] Edgar ARAMBULAN PATIENT MEDICARE (WNR) MEDICARE () PART B Oct 19, 2004 PART B [id number] [phone] [id number] Edgar ARAMBULAN PATIENT MEDICARE (WNR) MEDICARE () PART A Oct 19, 2004 PART A [id number] [id number] Edgar ARAMBULA [place] PATIENT MEDICARE (WNR) MEDICARE () PART B Oct 19, 2004 PART B [id number] 90A Edgar ARAMBULAN PATIENT MEDICARE (WNR) MEDICARE () PART A Oct 19, 2004 PART A [id number] [phone] Edgar ARAMBULA PATIENT MEDICARE (WNR) MEDICARE () PART B Oct 19, 2004 PART B [id number] [phone] Edgar ARAMBULAN PATIENT MEDICARE (WNR) MEDICARE () PART A Oct 19, 2004 PART A [id number] [phone] Edgar ARAMBULAN PATIENT MEDICARE (WNR) MEDICARE () PART B Oct 19, 2004 PART B [id number] Edgar ARAMBULAN PATIENT Selected Encounter This section includes the information on record at [place] for the Encounter. Date/Time Encounter Type Encounter Description Reason Pro vider Source Mar 11, 2024 09:01 AM Outpatient Encounter PRIMARY CARE/MEDICINE IHE Encounter [...] 10, 2024 10:00 AM AMBULATORY - MEDICINE [facility] Jun 11, 2024 09:30 AM AMBULATORY - PSYCHIATRY [facility] [place] [facility] Jun 13, 2024 10:00 AM AMBULATORY - MEDICINE [facility] [place] [facility] Jun 19, 2024 11:00 AM AMBULATORY - NONE [facility] [place] [facility] Jun 21, 2024 09:00 AM AMBULATORY - MEDICINE [facility] [place] [facility] Jun 21, 2024 09:15 AM AMBULATORY - MEDICINE [facility] [place] [facility] Jun 21, 2024 09:30 AM AMBULATORY - MEDICINE [facility] [place] [facility] Jun 26, 2024 08:00 AM AMBULATORY - MEDICINE [facility] [place] [facility] Jul 05, 2024 09:00 AM AMBULATORY - REHAB MEDICIN E [facility] [place] [facility] Jul 30, 2024 09:30 AM AMBULATORY - PS[place]CHIATRY [place] [facility] [place] [facility] Aug 05, 2024 09:45 AM AMBULATORY - MEDICINE [place] [facility] Social [...] AM VA-TOBACCO NEVER USED [place] [facility] Tobacco Use History This section includes a history of the smoking, or tobacco-related health factors, that were collected on or before the date of the Encounter. The data comes from the [place] facility where the Encounter took place. 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 NO [facility] [facility] [...] Nov 17, 2021 10:00 AM VA-TOBACCO USE BATTERY CHARGER [place]VE[place] LINE NO [facility] [place] [facility] Nov 17, 2021 10:00 AM VA-TOBACCO USE MED NO [facility] [place] [facility] Nov 17, 2021 10:00 AM VA-TOBACCO USE [place] 30 MIN OF WAKEUP [facility] Nov 17, 2021 10:00 AM VA-TOBACCO USER EVERY DAY [facility] Oct 14, 2013 12:55 PM V1-PT NOT INTERESTED IN QUIT TOBACCO USE [facility] May 07, 2013 05:04 PM CURRENT SMOKER trying to stop [facility] May 07, 2013 05:04 PM V1-PT DECLINES REF TO TOBACCO CESS [facility] May 07, 2013 05:04 PM V1-PT DECLINES TOBACCO CESSATION MEDS [facility] May 07, 2013 05:04 PM V1-PT READY TO QUIT TOBACCO USE [facility] Dec 03, 2012 08:23 AM V1-PT DECLINES REF TO TOBACCO CESS PRGM [facility] Dec 03, 2012 08:23 AM V1-PT DECLINES TOBACCO CESSATION MEDS [facility] Dec 03, 2012 08:23 AM V1-PT THINKING ABOUT QUIT TOBACCO USE [facility] Jun 05, 2012 08:45 AM CURRENT SMOKER 1/2ppd [facility] Jun 05, 2012 08:45 AM V1-PT DECLINES REF TO TOBACCO CESS PRGM [facility] Jun 05, 2012 08:45 AM V1-PT THINKING ABOUT QUIT TOBACCO USE [facility] Jun 05, 2012 08:45 AM V1-TOBACCO CESS MEDS NOT PRESCRIBED Vet wants to talk to his provider-He is nervous about taking meds to quit- but [facility] is [facility] Nov 25, 2011 09:14 AM V1-PT DECLINES REF TO TOBACCO CESS PRGM [facility] Nov 25, 2011 09:14 AM V1-PT DECLINES TOBACCO CESSATION MEDS [facility] Nov 25, 2011 09:14 AM V1-PT THINKING ABOUT QUIT TOBACCO USE [facility] May 06, 2011 01:02 PM CURRENT SMOKER [facility] [place] [facility] May 06, 2011 01:02 PM V1-PT DECLINES [...] IN PAST YEAR [facility] [place] [facility] Aug 26, 2008 09:28 AM CURRENT SMOKER 1/2 ppd [facility] [place] [facility] Aug 26, 2008 09:28 AM V1-PT DECLINES REF TO TOBACCO CESS PRGM [facility] [place] [facility] Aug 26, 2008 09:28 AM V1-PT READY TO QUIT TOBACCO USE [facility] [place] [facility] Dec 19, 2007 10:08 AM V1-PT DECLINES REF TO TOBACCO CESS PRGM [facility] [place] [facility] Dec 19, 2007 10:08 AM V1-PT DECLINES TOBACCO CESSATION MEDS [facility] Dec 19, 2007 10:08 AM V1-PT THINKING ABOUT QUIT TOBACCO USE [facility] [place] [facility] Sep 11, 2007 11:10 AM CURRENT SMOKER [facility] [place] [facility] [...] CESSATION MEDS [facility] W[facility]N [facility] Feb 13, 2007 01:46 PM V1-PT THINKING ABOUT QUIT [facility]AC[facility] Oct 02, 2006 08:28 AM QUIT TOBACCO USE IN PAST YEAR 3 months ago [facility] Aug 19, 2005 08:33 AM QUIT TOBACCO USE IN PAST YEAR nonsmoker [facility] Sep 21, 2004 09:54 AM CURRENT SMOKER [facility] Sep 07, 2004 08:07 AM [facility]RENT [facility]KER [facility] Sep 15, 2003 11:21 AM CURRENT SMOKER smokes one pk day [facility] Jul 23, 2003 01:57 PM [facility]ER [facility] Advance Directives: All historical and current [...] ADVANCE DIRECTIVE ESSIE STARK [facility] W RAD[facility] Apr 19, 2007 ADVANCE DIRECTIVE IVCTORIA JOHNSON [facility] Radiology Reports: +/- 30 [...] AM CT THORAX W/O CONT: GUSTAVO ARAMBULA [id number] M Exm Date: FEB 15, 2024@09:56 Req Phys: TRACY VILLANUEVA Pat Loc: CWM/SO/PACT 7 (Req'g Loc) Img Loc: NHM/CT Service: Unknown [place] [facility] , (Case [id number] COMPLETE) CT THORAX W/O CONT (CT Detailed) CPT:41226 Reason for Study: smoker x 64 years Clinical History: Report Status: Verified Date Reported: FEB 20, 2024 Date Verified: FEB 20, 2024 Inspector Aluminum Boat E-Sig: Report: CT THORAX W/O CONT HISTORY: [...] as above. READING PHYSICIAN: Ck Jean M.D. -[id number] 02/20/2024 12:57 PDT [facility] National Teleradiology Program [phone] (For Medical Practitioner Use Only) Attention Patients / Veterans: If you have questions or concerns about these test results, please contact your ordering provider or primary care team. Primary Diagnostic Code: SIGNIFICANT ABNORMALITY, ATTN NEEDED Primary Interpreting Staff: RADIOLOGY,OUTSIDE SERVICE, Staff Physician / RADIOLOGY,OUTSIDE SERVICE [place] [facility] [place] [facility] Encounter Notes: All associated encounter notes This section contains the clinical notes associated to the Encounter. Date/Time Encounter Note(s) Provider Source Mar 11, 2024 09:01 AM PREVENTIVE MEDICIN E NURSING NOTE: LOCAL TITLE: CLINICAL REMINDERS/NURSING STANDARD TITLE: PREVENTIVE MEDICINE NURSING NOTE DATE OF NOTE: MAR 11, 2024@09:01 ENTRY DATE: MAR 11, 2024@09:01:38 AUTHOR: CRISTIANE DOZIER EXP COSIGNER: URGENCY: STATUS: COMPLETED Advance Directive Screen AD: Patient has an Advance Directive on file at this [facility]. No updates are needed at this time. The patient received education about Advance Directives and written notification of his/her rights. Colonoscopy GAP Reminder: Recommendations are needed in the clinical reminder system following the patient's most recent colorectal cancer screening/surveillance test (Colonoscopy, Sigmoidoscopy or CT Colonography) Colorectal cancer screening/surveillance will be stopped. Reason: age out /es/ MARCUS DOZIER LPN LPN Signed: 03/11/2024 09:02 MARCUS DOZIER ORO GRANDE
--- OUTSIDE RECORDS SUMMARY | 2024-08-16 09:33 | XMS_ITS | Encounter Summary ---
Author Name [facility] [place] [facility] [place] Address [address] [place] [address] Care Team Providers Care Blacksmith Supervisor Name Role Phone TRACY VILLANUEVA Primary Care [...] PHI MEDEX BRONZ E December 19, 2013 [id number] [phone] GUSTAVO ARAMBULA SR PATIENT [employer] MEDICARE SUPPLEMEN PHI MEDIC ARE SUPPL EMENT Jul 21, 2007 NONE [id number] [phone] Edgar ARAMBULA PATIENT BCBS ID MEDICARE SUPPLEMEN PHI MEDEX BRONZ E December 19, 2013 [id number] [phone] GUSTAVO ARAMBULA SR PATIENT BCBS OF [place] ([place]) MEDICARE SUPPLEMEN PHI MEDEX BRONZ E December 19, 2013 [id number] Edgar ARAMBULA [place] PATIENT MEDICARE (WNR) MEDICARE (M) PART A Oct 19, 2004 PART A [id number] Edgar ARAMBULA [place] PATIENT MEDICARE (WNR) MEDICARE (M) PART B Oct 19, 2004 PART B [id number] Edgar ARAMBULA [place] PATIENT MEDICARE (WNR) MEDICARE (M) PART A Oct 19, 2004 PART A [id number] Edgar ARAMBULA [place] PATIENT MEDICARE ([place]NR) MEDICARE (M) PART B Oct 19, 2004 PART B [id number] Edgar ARAMBULA [place] PATIENT MEDICARE (WNR) MEDICARE (M) PART A Oct 19, 2004 PART A [id number] Edgar ARAMBULA [place] PATIENT MEDICARE (WNR) MEDICARE () PART B Oct 19, 2004 PART B [id number] Edgar ARAMBULA [place] PATIENT MEDICARE (WNR) MEDICARE () PART A Oct 19, 2004 PART A [id number] [phone] Edgar ARAMBULA [place] PATIENT MEDICARE (WNR) MEDICARE () PART B Oct 19, 2004 PART B [id number] [phone] FILEMONEEdgar [place] PATIENT MEDICARE (WNR) MEDICARE () PART A Oct 19, 2004 PART A [id number] [phone] Edgar ARAMBULA [place] PATIENT MEDICARE (WNR) MEDICARE () PART B Oct 19, 2004 PART B [id number] [phone] Edgar ARAMBULAN PATIENT Selected Encounter This section includes the information on record at [place] for the Encounter. Date/Time Encounter Type Encounter Description Reason Provider Source Apr 04, 2024 11:00 AM OFFICE O/P EST MOD 30 [facility] - IND ICD-10-CM F33.9 Major depressive disorder, recurrent, unspecified JOSEY COLINDRES Encounter Template Text not used by [place] Assessments - Encounter Diagnoses This section includes the primary and secondary diagnoses documented for the Encounter. Date/Time Primary/Secondary Diagnosis Diagnosis Name Provider Source Apr 05, 2024 04:02 PM PRIMARY Major depressive disorder, recurrent, unspecified JOSEY COLINDRES [facility] [place] [facility] Apr 05, 2024 04:02 PM SECONDARY Other insomnia COLINDRESJOSEY [facility] [place] [facility] Plan of Treatment: Future Appointments (+ 6 months) and Future Tests (+/- 45 days) The Plan of Treatment section includes future care activities for the patient from all [place] treatmentfacilities. This section includes future appointments and future orders which are active, pending or scheduled. Future Appointments This section includes appointments that were scheduled to occur 6 months from the date of the Encounter, up to a maximum of 20 appointments. The data comes from all [place] treatment facilities. Appointment Date/Time Appointment Type Appointme nt Facility Name Apr 08, 2024 09:30 AM AMBULATORY - MEDICINE [facility] [place] [facility] Apr 10, 2024 10:45 AM AMBULATORY - MEDICINE [facility] [place] [facility] Apr 26, 2024 11:00 AM AMBULATORY - MEDICINE [facility] [place] [facility] Apr 30, 2024 08:30 AM AMBULATORY - PSYCHIATRY [facility] [place] [facility] May 01, 2024 11:00 AM AMBULATORY - NONE [facility] [place] [facility] May 14, 2024 11:30 [facility] May 31, 2024 11:00 AM AMBULATORY - REHAB MEDICIN E [facility] [place] [facility] May 31, 2024 12:00 PM AMBULATORY - MEDICINE [facility] [place] [facility] Jun 10, 2024 10:00 AM AMBULATORY - MEDICINE [facility] Jun 11, 2024 09:30 AM AMBULATORY - PSYCHIATRY [facility] [place] [facility] Jun 13, 2024 10:00 AM AMBULATORY - MEDICINE [facility] [place] [facility] Jun 19, 2024 11:00 AM AMBULATORY - NONE [facility] [place] [facility] Jun 21, 2024 09:00 AM AMBULATORY - MEDICINE [facility] [place] [facility] Jun 21, 2024 09:15 AM AMBULATORY - MEDICINE [facility] [place] [facility] Jun 21, 2024 09:30 AM AMBULATORY - MEDICINE [facility] [place] [facility] Jun 26, 2024 08:00 AM AMBULATORY - MEDICINE [facility] [place] [facility] Jul 05, 2024 09:00 AM AMBULATORY - REHAB MEDICIN E [facility] [place] [facility] Jul 30, 2024 09:30 AM AMBULATORY - PSYCHIATRY [facility] [place] [facility] Aug 05, 2024 09:45 AM AMBULATORY - MEDICINE [facility] [place] [facility] Sep 06, 2024 11:00 AM AMBULATORY - MEDICINE [facility] Active, Pending, and Scheduled Orders This section includes a listing of several types of active, pending, and scheduled orders, including clinic medications orders, diagnostic test orders, procedure orders and consult orders; where the start date of the order is 45 days before the date of the Encounter or 45 days after the date of theEncounter. The data comes from all [place] treatment facilities. Test Date/Time Test Type Test Details Facility Name May 15, 2024 08:08 AM Consult Order COMMUNITY CARE-PULMONARY Cons Act English Tutor's Choice [facility] Lab Results: +/- 30 days of the encounter This section includes the Chemistry and Hematology Lab Results on record with [place] for the patient. Radiology Reports and Pathology Reports are provided separately, in subsequent sections. Lab Results This section contains the Chemistry/Hematology Results that were resulted 30 days before or 30 daysafter the date of the Encounter. Date/Time Source Result Type Result - Unit Interpretation Reference Range Comment Apr 25, 2024 07:51 AM [facility] HEMOGLOBIN A1C PANEL Specimen Type: BLOOD Comment: Values obtained from A1C measurements can vary. For atypical A1C assays, a reported value of 7.0 could actually be between 6.72 and 7.28 if measured by a reference method. A reported value of 9.0 could actually be between 8.73 and 9.27. Ref: http://www.ngs p.org/CAPdata. asp Ordering Provider: TRACY VILLANUEVA Report Released Date/Time: Feb 13, 2024 02:36 PM Reporting Lab: [facility] [address] [address] Performing Lab: [address] [address] HEMOGLOBIN A1C 6.8 H 4.0-5.6 Apr 25, 2024 07:51 AM [facility] MICROALBUMIN CREATININE RATIO PANEL Spe cimen Type: URINE No comment entered. Ordering Provider: TRACY VILLANUEVA Report Released Date/Time: Feb 13, 2024 02:36 PM Reporting Lab: [address] [address] Performing Lab: [address] [address] MICROALBUMIN/C REATININE RATIO 16.0 mg/g 0-29.9 MICROALBUMIN,Q UANTITATIVE 2.3 mg/dL RR UNAVAIL CREATININE URINE 143.92 mg/dL Apr 25, 2024 07:51 AM [facility] BASIC METABOLIC PANEL (non-fasting) Spe cimen Type: SERUM No comment entered. Ordering Provider: TRACY VILLANUEVA Report Released Date/Time: Feb 13, 2024 02:36 PM Reporting Lab: [address] [address] Performing Lab: [address] [address] UREA NITROGEN 15 mg/dL 7-25 GLUCOSE 173 mg/dL H 65-100 SODIUM 133 mmol/L L 135-145 POTASSIUM 4.2 mmol/L 3.5-5.0 CHLORIDE 100 mmol/L 100-110 CO2 22 meq/L 20-30 CREATININE, Serum 0.74 mg/dL 0.50-1.40 eGFR(CKD-EPI 2020) 89 mL/min >60 Apr 15, 2024 08:39 AM [facility] HEMOGLOBIN A1C PANEL Specimen Type: BLOOD Comment: Values obtained from A1C measurements can vary. For atypical A1C assays, a reported value of 7.0 could actually be between 6.72 and 7.28 if measured by a reference method. A reported value of 9.0 could actually be between 8.73 and 9.27. Ref: http://www.ngs p.org/CAPdata. asp Ordering Provider: TRACY VILLANUEVA Report Released Date/Time: Apr 09, 2024 09:19 AM Reporting Lab: [address] [address] Performing Lab: [address] [address] HEMOGLOBIN A1C 6.3 H 4.0-5.6 Apr 15, 2024 08:39 AM [facility] LIVER FUNCTION Specimen Type: SERUM No comment entered. Ordering Provider: TRACY VILLANUEVA Report Released Date/Time: Apr 09, 2024 09:19 AM Reporting Lab: [address] [address] Performing Lab: [address] [address] PROTEIN,TOTAL 7.3 g/dL 6.0-8.3 ALBUMIN 4.5 g/dL 3.5-5.0 ALKALINE PHOSPHATASE 62 U/L 40-150 AST 35 U/L H 5-34 ALT 27 U/L BILIRUBIN, TOTAL 2.5 mg/dL H 0.2-1.2 BILIRUBIN, DIRECT 0.7 mg/dL H 0-0.5 Apr 15, 2024 08:39 AM [facility] BASIC METABOLIC PANEL (fasting) Specime n Type: SERUM No comment entered. Ordering Provider: TRACY VILLANUEVA Report Released Date/Time: Apr 09, 2024 09:19 AM Reporting Lab: [address] [address] Performing Lab: [address] [address] UREA NITROGEN 9 mg/dL 7-25 GLUCOSE 159 mg/dL H 65-100 SODIUM 116 mmol/L LL 135-145 POTASSIUM 3.4 mmol/L L 3.5-5.0 CHLORIDE 81 mmol/L L 100-110 CO2 23 meq/L 20-30 CREATININE, Serum 0.69 mg/dL 0.50-1.40 eGFR(CKD-EPI 2020) >90 mL/min >60 Apr 15, 2024 08:39 AM [facility] MICROALBUMIN CREATININE RATIO PANEL Spe cimen Type: URINE No comment entered. Ordering Provider: TRACY VILLANUEVA Report Released Date/Time: Apr 09, 2024 09:19 AM Reporting Lab: [facility] [address] [address] Performing Lab: [facility] [address] [facility] [address] MICROALBUMIN/C REATININE RATIO 83.0 mg/g H 0-29.9 MICROALBUMIN,Q UANTITATIVE 16.8 mg/dL RR UNAVAIL CREATININE URINE 202.40 mg/dL Apr 15, 2024 08:39 AM [facility] LIPID PANEL FASTING Specimen Type: SERUM No comment entered. Ordering Provider: TRACY VILLANUEVA Report Released Date/Time: Apr 09, 2024 09:19 AM Reporting Lab: [facility] [address] [address] Performing Lab: [facility] [address] [address] CHOLESTEROL 137 mg/dL TRIGLYCERIDE 63 mg/dL 0-150 LDL calculated 63 mg/dL 0-129 CHOL/HDL 2.2 HDL CHOLESTEROL 61 mg/dL H 40-60 Apr 15, 2024 08:39 AM [facility] VITAMIN D (25-OH) Specimen Type: SERUM No comment entered. Ordering Provider: TRACY VILLANUEVA Report Released Date/Time: Apr 09, 2024 09:19 AM Reporting Lab: [facility] [address] [address] Performing Lab: [facility] [address] [address] VITAMIN D (25-OH) 49 ng/mL 20-50 Apr 15, 2024 08:39 AM [facility] CBC Specimen Type: BLOOD Comment: MCHC >36, SPECIMEN 1+ ICTERIC, QNS FOR PLASMA REPLACEMENT INTERPRET RESULTS WITH CAUTION, SUGGEST PROPER REDRAW SHORT DRAW Ordering Provider: TRACY VILLANUEVA Report Released Date/Time: Apr 09, 2024 09:19 AM Reporting Lab: [facility] [address] [address] Performing Lab: [facility] [address] [address] WBC 8.70 10*3/uL 4.50-11.00 RBC 4.75 10*6/uL 4.23-5.66 HGB 13.9 g/dL 12.8-17 HCT 36.1 L 39.2-50.4 MCV 76.0 fL L 82-99 MCHC 38.5 g/dL H 30.8-35.1 PLT 227 10*3/uL 140-360 RDW-CV 12.7 12.0-16.0 MCH 29.3 pg 26.2-32.6 Social History: Smoking Status (Most current) and Tobacco Use (All prior to encounter date) This section includes the most current, and the historical, smoking and tobacco- related health factors from the [facility] facility where the Encounter took place. Current Smoking Status This section includes the most current smoking, or tobacco-related health factor, from the [facility] facility where the Encounter took place. Date/Time Current Smoking Status Comment [facility] it December 25, 2023 09:05 AM VA-TOBACCO NEVER USED [facility] Tobacco Use History This section includes a history of the smoking, or tobacco-related health factors, that were collected on or before the date of the Encounter. The data comes from the [facility] facility where the Encounter took place. Date/Time Smoking Status/Tobac co Use Comment Facility Dec 13, 2022 03:00 PM VA-TOBACCO DOESNT USE WI 30 MIN WAKEUP [facility] [place] [facility] Dec 13, 2022 03:00 PM VA-TOBACCO USE 30 YEARS OR MORE [facility] [place] [facility] Dec 13, 2022 03:00 PM VA-TOBACCO USE ADVICE [facility] [place] [facility] Dec 13, 2022 03:00 PM VA-TOBACCO USE SCHOOL CUSTODIAN NO [facility] [place] [facility] Dec 13, 2022 03:00 PM VA-TOBACCO USE MED NO [facility] [place] [facility] Dec 13, 2022 03:00 PM VA-TOBACCO USER EVERY DAY [facility] [place] [facility] Nov 17, 2021 10:00 AM VA-TOBACCO USE 30 YEARS OR MORE [facility] [place] [facility] Nov 17, 2021 10:00 AM VA-TOBACCO USE ADVICE [facility] [place] [facility] Nov 17, 2021 10:00 AM VA-TOBACCO USE SCHOOL CUSTODIAN NO [facility] Nov 17, 2021 10:00 AM VA-TOBACCO USE MED NO [facility] Nov 17, 2021 10:00 AM VA-TOBACCO USE WI 30 MIN OF WAKEUP [facility] Nov 17, 2021 10:00 AM VA-TOBACCO USER EVERY DAY [facility] Oct 14, 2013 12:55 PM V1-PT NOT INTERESTED IN QUIT TOBACCO USE [facility] May 07, 2013 05:04 PM CURRENT SMOKER trying to stop [facility] May 07, 2013 05:04 PM V1-PT DECLINES REF TO TOBACCO CESS PRGM [facility] May 07, 2013 05:04 PM V1-PT DECLINES TOBACCO CESSATION MEDS [facility] May 07, 2013 05:04 PM V1-PT READY TO QUIT TOBACCO USE [facility] Dec 03, 2012 08:23 AM V1-PT DECLINES REF TO TOBACCO CESS PRGM [facility] Dec 03, 2012 08:23 AM V1-PT DECLINES TOBACCO CESSATION MEDS [facility] Dec 03, 2012 08:23 AM V1-PT THINKING ABOUT QUIT TOBACCO USE [facility] Jun 05, 2012 08:45 AM CURRENT SMOKER 1/2ppd [facility] Jun 05, 2012 08:45 AM V1-PT DECLINES REF TO TOBACCO CESS PRGM [facility] Jun 05, 2012 08:45 AM V1-PT THINKING ABOUT QUIT TOBACCO USE [facility] Jun 05, 2012 08:45 AM V1-TOBACCO CESS MEDS NOT PRESCRIBED Vet wants to talk to his provider-He is nervous about taking meds to quit- but he is interested in quitting [facility] Nov 25, 2011 09:14 AM V1-PT DECLINES REF TO TOBACCO CESS PRGM [facility] Nov 25, 2011 09:14 AM V1-PT DECLINES TOBACCO CESSATION MEDS [facility] [place] [facility] Nov 25, 2011 09:14 AM V1-PT THINKING ABOUT QUIT TOBACCO USE [facility] [place] [facility] May 06, 2011 01:02 PM CURRENT SMOKER [facility] [place] [facility] May 06, 2011 01:02 PM V1-PT DECLINES TOBACCO CESSATION MEDS [facility] [place] [facility] May 06, 2011 01:02 PM V1-PT NOT INTERESTED IN QUIT TOBACCO USE [facility] [place] [facility] Sep 24, 2010 08:51 AM V1-PT DECLINES TOBACCO CESSATION MEDS [facility] [place] [facility] Sep 24, 2010 08:51 AM V1-PT THINKING ABOUT QUIT TOBACCO USE [facility] [place] [facility] Mar 22, 2010 07:58 AM CURRENT SMOKER 1/2 ppd [facility] [place] [facility] Feb 25, 2009 12:05 PM QUIT TOBACCO USE IN PAST YEAR [facility] [place] [facility] Aug 26, 2008 09:28 AM CURRENT SMOKER 1/2 ppd [facility] [place] [facility] Aug 26, 2008 09:28 AM V1-PT DECLINES REF TO TOBACCO CESS PRGM [facility] [place] [facility] Aug 26, 2008 09:28 AM V1-PT READY TO QUIT TOBACCO USE [facility] [place] [facility] Dec 19, 2007 10:08 AM V1-PT DECLINES REF TO TOBACCO CESS PRGM [facility] [place] [facility] Dec 19, 2007 10:08 AM V1-PT DECLINES TOBACCO CESSATION MEDS [facility] [place] [facility] Dec 19, 2007 10:08 AM V1-PT THINKING ABOUT QUIT TOBACCO USE [facility] [place] [facility] Sep 11, 2007 11:10 AM CURRENT SMOKER [facility] [place] [facility] Sep 11, 2007 11:10 AM V1-PT DECLINES REF TO TOBACCO CESS PRGM [facility] [place] [facility] Sep 11, 2007 11:10 AM V1-PT DECLINES TOBACCO CESSATION MEDS [facility] [place] [facility] Sep 11, 2007 11:10 AM V1-PT THINKING ABOUT QUIT TOBACCO USE [facility] Feb 13, 2007 01:46 PM V1-PT DECLINES REF TO TOBACCO CESS PRGM [facility] Feb 13, 2007 01:46 PM V1-PT DECLINES TOBACCO CESSATION MEDS [facility] Feb 13, 2007 01:46 PM V1-PT THINKING ABOUT QUIT TOBACCO USE [facility] Oct 02, 2006 08:28 AM QUIT TOBACCO USE IN PAST YEAR 3 months ago [facility] Aug 19, 2005 08:33 AM QUIT TOBACCO USE IN PAST YEAR nonsmoker [facility] Sep 21, 2004 09:54 AM CURRENT SMOKER [facility] Sep 07, 2004 08:07 AM CURRENT SMOKER [facility] Sep 15, 2003 11:21 AM CURRENT SMOKER smokes one pk day [facility] Jul 23, 2003 01:57 PM CURRENT SMOKER [facility] Advance Directives: All historical and current Section Date Range: From patient's date of to the date document was created. This section includes ALL of a patient's completed or amended [facility] Advance and Rescinded Directives. The entries below indicate that a directive exists for the patient, but an actual copy is not included with this document. The data comes from all [facility] facilities. Date Advance Directives Provider Source Apr 10, 2023 ADVANCE DIRECTIVE ESSIE STARK [facility] Apr 19, 2007 ADVANCE DIRECTIVE VICTORIA JOHNSON [facility] Encounter Notes: All associated encounter notes This section contains the clinical notes associated to the Encounter. Date/Time Encounter Note(s) Provider Source Apr 04, 2024 11:02 AM PSYCHIATRY NOTE: LOCAL TITLE: PSYCHIATRY NOTE STANDARD TITLE: PSYCHIATRY NOTE DATE OF NOTE: APR 04, 2024@11:02 ENTRY DATE: APR 04, 2024@11:02:49 AUTHOR: LANA COLINDRES COSIGNER: URGENCY: STATUS: COMPLETED PSYCHIATRY FOLLOW UP VISIT GUSTAVO ARAMBULA is a 83yo MARITAL STATUS - WHITE MALE with a history of [employer] FROM December TO Oct INTERVAL HISTORY Met together with son, Gustavo. Very nauseated all the time, lorazepam not helpful. +insomnia. Very anxious like I'm gonna break down , feels his mood is low, doesn't want to do anything, not able to enjoy anything. He can still do some painting but hasn't been doing much. Visits brother once daily. He denies SI currently, though describes having some thoughts of why go on? . No intent or plan. Has not taken any action to harm himself. Is now living with son and daughter in law--does appreciate this, they take good care of him. Appetite is low. Dentures are also ill-fitting. When he tries to sleep his legs and elbows are restless and painful. relieved by walking. Very restless, does not sleep until 2-3pm. CURRENT MEDICATIONS Active Outpatient Medications (including Supplies): ACETAMINOPHEN 500MG TAB TAKE TWO TABLETS BY MOUTH TWICE ACTIVE DAILY FOR PAIN ALBUTEROL 90MCG (CFC-F) 200D ORAL INHL INHALE 1 TO 2 PUFFS ACTIVE BY MOUTH EVERY 6 HOURS NEEDED FOR BRONCHOSPASM AMLODIPINE BESYLATE 10MG TAB TAKE ONE TABLET [...] ACTIVE MOUTH ONCE DAILY FOR CHOLESTEROL BUPRENORPHINE 5MCG/HR PATCH APPLY 1 PATCH TO SKIN EVERY 5 ACTIVE DAYS FOR PAIN (REMOVE PATCH BEFORE APPLYING A NEW PATCH) DEPEND UNDERWEAR,MAXIMUM,MEN SM/MED USE 1 BRIEF ACTIVE DIRECTED TWICE DAILY FOR INCONTINENCE FLUTICAS 500/SALMETEROL 50 INHL DISK 60 INHALE 1 PUFF BY ACTIVE MOUTH TWICE DAILY - RINSE MOUTH AFTER USE HYDROCHLOROTHIAZIDE 25MG TAB TAKE ONE-HALF TABLET BY MOUTH ACTIVE ONCE DAILY FOR HIGH BLOOD PRESSURE HYDROCORTISONE 1% OINT APPLY THIN LAYER TOPICALLY TWICE ACTIVE DAILY NEEDED FOR ATOPIC DERMATITIS LORAZEPAM 0.5MG TAB TAKE ONE HALF TABLET BY MOUTH TWICE ACTIVE DAILY NEEDED MELATONIN 5MG CAP/TAB TAKE ONE CAPSULE/TABLET BY MOUTH AT ACTIVE (S) BEDTIME FOR INSOMNIA METFORMIN HCL 750MG 24HR SA TAB TAKE TWO TABLETS BY MOUTH ACTIVE ONCE DAILY FOR TYPE 2 DIABETES MELLITUS MIRTAZAPINE 15MG TAB TAKE ONE AND ONE-HALF TABLETS BY ACTIVE MOUTH AT BEDTIME NICOTINE 14MG/24HR PATCH APPLY 1 PATCH TO SKIN ONCE DAILY ACTIVE (REMOVE OLD PATCH BEFORE APPLYING NEW PATCH) NICOTINE 7MG/24HR PATCH APPLY 1 PATCH TO SKIN ONCE DAILY ACTIVE (REMOVE OLD PATCH BEFORE APPLYING NEW PATCH) * USE AFTER 14 MG PATCHES * NUTRITION SUPL ENSURE PLUS/CONNIE LIQUID DRINK 1 CAN BY HOLD MOUTH TWICE DAILY ONDANSETRON 4MG ORAL DISINTEGRATING TAB PLACE ONE TABLET ACTIVE ON THE TONGUE EVERY 8 HOURS NEEDED FOR NAUSEA AND VOMITING (ALLOW TABLET TO DISSOLVE ON TONGUE, AND SWALLOW WITH SALIVA) PANTOPRAZOLE NA 40MG EC TAB TAKE ONE TABLET BY MOUTH EVERY ACTIVE MORNING 30 MINUTES BEFORE BREAKFAST SENNOSIDES 8.6MG TAB TAKE ONE TABLET BY MOUTH TWICE DAILY ACTIVE 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) USE CUTTER DIRECTED BY ACTIVE PROVIDER TO SPLIT TABLETS TIOTROPIUM 2.5MCG/ACTUAT 60D ORAL INHL INHALE 2 PUFFS BY ACTIVE MOUTH ONCE DAILY TRAZODONE HCL 100MG TAB TAKE ONE-HALF TABLET [...] CT 09/25/2023 TRACY VILLANUEVA Depression (SNOMED CT [id number]) F33 12/10/2021 TRAVIS GOMES Dry Eye Syndromes * (ICD-9-CM 375.1 03/17/2009 NAHED JARQUIN OD Late effect of fracture of skull an 12/03/2008 JOVANY NAYLOR Localised, primary osteoarthritis M 03/12/2024 TRACY VILLANUEVA Prostate, 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., Ons 04/22/2008 JOVANY NAYLOR Cataract, Cortical (Senile) 366.15 05/04/2006 NAHED JARQUIN OD Open Angle Glaucoma Suspect 365.01 05/04/2006 NAHED JARQUIN OD Mixed hyperlipidaemia E78.2 12/25/2023 TRACY VILLANUEVA Benign essential hypertension I10. 12/25/2023 TRACY VILLANUEVA POLYPS, COLON/LG BOWEL (BENIGN MAEGAN 10/31/2013 JOVANY NAYLOR Tobacco use (SNOMED CT [id number]) Z 02/20/2024 GUSTAVO MCKEON BMI: 25.7 SUBSTANCE USE: Alcohol: None MJ: None Tobacco: [...] helpful for mood, no increase in anxiety citalopram 20-40mg for many years, tapered off last year MENTAL STATUS EXAM: Awake, alert, cooperative, well groomed, using cane, a little unsteady. Appears in less pain. No abnormal movements. Sitting with son on video. Speech nml r/r/r/v/p Mood very down Affect: constricted Thought Process Linear, logical Thought Content: No obsessions, no delusions, no AH/VH. He is hopeful about getting better. SI/HI: Denies today a/ox4 I/J good ASESSMENT [...] of falls on trazodone and mirtazapine. PLAN -add citalopram 10mg x 1 week, then 20mg daily -REDUCE mirtazapine to 7.5mg at bedtime for 1 week then stop. -reduce lorazepam to 0.25mg daily x 1 week, then stop -add quetiapine 25mg at bedtime for sleep, mood, anxiety, Reviewed risks including weight gain, metabolic abnormalities, sedation, akathisia, and tardive dyskinesia. Vet was open to trying. -cont to work on smoking cessation -cont trazodone to 50mg at bedtime--try to taper off -consider restarting bupropion--it had been helpful for mood but was stopped by an ER provider when vet came in anxious. No indication that it was causing anxiety. - Cont melatonin 5 mg at HS for sleep - [facility] Sleep medicine - Cardiology - Hematology F/U [...] due to pain and depressive sx, passive SI. Acute risk is elevated currently given acute episode of depression with anxiety and nausea. He denies active SI and is engaged in care, adherent with meds. He is living with son and DIL who are involved and vet feels well cared for. We can consider a voluntary admission if symptoms do not improve in the next few weeks. Advised to contact me via call center [...] provider. Problem List was reviewed and updated. [facility] ([facility]) Standard Documentation V[facility] Clinician Resources Only: E911 (Emergency Call Relay Center): [phone] [facility] Crisis Line - ([phone]) press #1. CWM Suicide Coordinator ? [phone], Ext. [phone]; Back-up Ext. [phone] Associate Professor Of Art History of the Day(AOD), Sabi GILBERT ? [phone], Ext. [phone] Introduction: Visit is being conducted by [facility]. [place] identified with 2 identifiers: [X] Full Name [X] Date of [ ] [facility] ID Card Emergency Plan: confirmed and/or provided the following information in case of emergency or technology failure. [place]'s present location and address for appointment: Located at home address as in CPRS [place]'s emergency contact name and phone number: Emergency contact as per listed in chart [place] reported that location is private and safe: Yes Informed Consent: [place] informed of the risks and benefits of Telehealth video care. has the right to refuse video services. If refuses video visit, a isai-sb-daaf visit will be scheduled. [place] verbalized consent for this video visit: Yes [place] provided consent for any other persons present for visit: Yes If yes, who and relationship to patient: Secure visit: Visit was locked for security and privacy:Yes __ _ __ /es/ LANA COLINDRES PSYCHIATRIST Signed: 04/05/2024 16:03 LANA COLINDRES [facility] [place] [facility]
--- OUTSIDE RECORDS SUMMARY | 2024-08-16 09:33 | XMS_ITS | Encounter Summary ---
Author Name [facility] [facility] [place] Address [address] [place] [address] Care Team Providers Care Mental Tester Name Role Phone TRACY VILLANUEVA Primary Care [...] PHI MEDEX BRONZ E December 19, 2013 [id number] [phone] GUSTAVO ARAMBULA SR PATIENT [employer] MEDICARE SUPPLEMEN PHI MEDIC ARE SUPPL EMENT Jul 21, 2007 NONE [id number] [phone] Edgar ARAMBULA PATIENT [place] SUPPLEMEN PHI MEDEX BRONZ E December 19, 2013 [id number] [phone] GUSTAVO ARAMBULA SR PATIENT [place] ([place] MEDICARE SUPPLEMEN PHI MEDEX BRONZ E December 19, 2013 [id number] [phone] Edgar ARAMBULA PATIENT MEDICARE (WNR) MEDICARE () PART A Oct 19, 2004 PART A [id number] Edgar ARAMBULAN PATIENT MEDICARE (WNR) MEDICARE (M) PART B Oct 19, 2004 PART B [id number] Edgar ARAMBULA [place] PATIENT MEDICARE (WNR) MEDICARE () PART A Oct 19, 2004 PART A [id number] [phone] Edgar ARAMBULAN PATIENT MEDICARE (WNR) MEDICARE () PART B Oct 19, 2004 PART B [id number] Edgar ARAMBULAN PATIENT MEDICARE (WNR) MEDICARE () PART A Oct 19, 2004 PART A [id number] Edgar ARAMBULAN PATIENT MEDICARE (WNR) MEDICARE () PART B Oct 19, 2004 PART B [id number] [phone] Edgar ARAMBULAN PATIENT MEDICARE (WNR) MEDICARE () PART A Oct 19, 2004 PART A [id number] [phone] Edgar ARAMBULA PATIENT MEDICARE (WNR) MEDICARE () PART B Oct 19, 2004 PART B [id number] [phone] Edgar ARAMBULAN PATIENT MEDICARE (WNR) MEDICARE () PART A Oct 19, 2004 PART A [id number] [phone] Edgar ARAMBULAN PATIENT MEDICARE (WNR) MEDICARE () PART B Oct 19, 2004 PART B [id number] Edgar ARAMBULAN PATIENT Selected Encounter This section includes the information on record [place] for the Encounter. Date/Time Encounter Type Encounter Description Reason Pro vider Source Mar 08, 2024 12:00 AM Outpatient Encounter COMMUNITY CARE CONSULT [...] 20 appointments. The data comes from all [place] treatment facilities. Appointment Date/Time Appointment Type Appointme nt Facility Name Mar 11, 2024 09:00 AM AMBULATORY - MEDICINE [facility] Apr 04, 2024 11:00 AM AMBULATORY - PS[facility]CHIATRY [facility] [place] [facility] Apr 08, 2024 09:30 AM AMBULATORY - MEDICINE [facility] [place] [facility] Apr 10, 2024 10:45 AM AMBULATORY - MEDICINE [facility] [place] [facility] Apr 26, 2024 11:00 AM AMBULATORY - MEDICINE [facility] [place] [facility] Apr 30, 2024 08:30 AM AMBULATORY - PS[facility]CHIATRY [facility] [place] [facility] May 01, 2024 11:00 AM AMBULATORY - NONE [facility] [place] [facility] May 14, 2024 11:30 [facility] May 31, 2024 11:00 AM AMBULATORY - REHAB MEDICIN E [facility] [place] [facility] May 31, 2024 12:00 PM AMBULATORY - MEDICINE [facility] [place] [facility] Jun 10, 2024 10:00 AM AMBULATORY - MEDICINE [facility] Jun 11, 2024 09:30 AM AMBULATORY - PSYCHIATRY [facility] [place] [facility] Jun 13, 2024 10:00 AM AMBULATORY - MEDICINE [facility] [place] [facility] Jun 19, 2024 11:00 AM AMBULATORY - NONE [facility] [place] [facility] Jun 21, 2024 09:00 AM AMBULATORY - MEDICINE [facility] [place] [facility] Jun 21, 2024 09:15 AM AMBULATORY - MEDICINE [facility] [place] [facility] Jun 21, 2024 09:30 AM AMBULATORY - MEDICINE [facility] [place] [facility] Jun 26, 2024 08:00 AM AMBULATORY - MEDICINE [facility] [place] [facility] Jul 05, 2024 09:00 AM AMBULATORY - REHAB MEDICIN E [facility] [place] [facility] Jul 30, 2024 09:30 AM AM[place]UL[place] [facility] [place] [facility] Social History: Smoking Status (Most current) and Tobacco Use (All prior to encounter date) This section includes the most current, and the historical, smoking and tobacco- related health factors from the [place] facility where the Encounter took place. Current Smoking Status This section includes the most current smoking, or tobacco-related health factor, from the [place] facility where the Encounter took place. Date/Time Current Smoking Status Comment Facil ity December 25, 2023 09:05 AM VA-TOBACCO NEVER USED [place] [facility] Tobacco Use History This section includes a history of the smoking, or tobacco-related health factors, that were collected on or before the date of the Encounter. The data comes from the [place] facility where the Encounter took place. 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 [facility] [place] [facility] Dec 13, 2022 03:00 PM VA-TOBACCO USE MED NO [facility] [place] [facility] Dec 13, 2022 03:00 PM VA-TOBACCO USER EVERY DAY [facility] [place] [facility] Nov 17, 2021 10:00 AM VA-TOBACCO USE 30 YEARS OR MORE [facility] [place] [facility] Nov 17, 2021 10:00 AM VA-TOBACCO USE ADVICE [facility] [place] [facility] Nov 17, 2021 10:00 AM VA-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 USE 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 [facility] [place] [facility] Nov 17, 2021 10:00 AM VA-TOBACCO USE MED NO [place] [facility] [place] [facility] Nov 17, 2021 10:00 AM VA-TOBACCO USE [place] 30 MIN OF WAKEUP [facility] [place] [facility] Nov 17, 2021 10:00 AM VA-TOBACCO USER EVERY DAY [facility] Oct 14, 2013 12:55 PM V1-PT NOT INTERESTED IN QUIT TOBACCO USE [facility] [place] [facility] May 07, 2013 05:04 PM CURRENT SMOKER trying to stop [facility] May 07, 2013 05:04 PM V1-PT DECLINES REF TO TOBACCO CESS PRGM [facility] May 07, 2013 05:04 PM V1-PT DECLINES TOBACCO CESSATION MEDS [facility] May 07, 2013 05:04 PM V1-PT READY TO QUIT TOBACCO USE [facility] Dec 03, 2012 08:23 AM V1-PT DECLINES REF TO TOBACCO CESS PRGM [facility] Dec 03, 2012 08:23 AM V1-PT DECLINES TOBACCO CESSATION MEDS [facility] Dec 03, 2012 08:23 AM V1-PT THINKING ABOUT QUIT TOBACCO USE [facility] Jun 05, 2012 08:45 AM CURRENT SMOKER 1/2ppd [facility] Jun 05, 2012 08:45 AM V1-PT DECLINES REF TO TOBACCO CESS PRGM [facility] Jun 05, 2012 08:45 AM V1-PT THINKING ABOUT QUIT TOBACCO USE [facility] Jun 05, 2012 08:45 AM V1-TOBACCO CESS MEDS NOT PRESCRIBED Vet wants to talk to his provider-He is nervous about taking meds to quit- but he is interested in quitting [facility] Nov 25, 2011 09:14 AM V1-PT DECLINES REF TO TOBACCO CESS PRGM [facility] Nov 25, 2011 09:14 AM V1-PT DECLINES TOBACCO CESSATION MEDS [facility] Nov 25, 2011 09:14 AM V1-PT THINKING ABOUT QUIT TOBACCO USE [facility] May 06, 2011 01:02 PM CURRENT SMOKER [facility] [place] [facility] May 06, 2011 01:02 PM V1-PT DECLINES TOBACCO CESSATION MEDS [facility] [place] [facility] May 06, 2011 01:02 PM V1-PT NOT INTERESTED IN QUIT TOBACCO USE [facility] [place] [facility] Sep 24, 2010 08:51 AM V1-PT DECLINES TOBACCO CESSATION MEDS [facility] [place] [facility] Sep 24, 2010 08:51 AM V1-PT THINKING ABOUT QUIT TOBACCO USE [facility] [place] [facility] Mar 22, 2010 07:58 AM CURRENT SMOKER 1/2 ppd [facility] [place] [facility] Feb 25, 2009 12:05 PM QUIT TOBACCO USE IN PAST YEAR [facility] [place] [facility] Aug 26, 2008 09:28 AM CURRENT SMOKER 1/2 ppd [facility] [place] [facility] Aug 26, 2008 09:28 AM V1-PT DECLINES REF TO TOBACCO CESS PRGM [facility] [place] [facility] Aug 26, 2008 09:28 AM V1-PT READY TO QUIT TOBACCO USE [facility] [place] [facility] Dec 19, 2007 10:08 AM V1-PT DECLINES REF TO TOBACCO CESS PRGM [facility] [place] [facility] Dec 19, 2007 10:08 AM V1-PT DECLINES TOBACCO CESSATION MEDS [facility] [place] [facility] Dec 19, 2007 10:08 AM V1-PT THINKING ABOUT QUIT TOBACCO USE [facility] [place] [facility] Sep 11, 2007 11:10 AM CURRENT SMOKER [facility] [place] [facility] Sep 11, 2007 11:10 AM V1-PT DECLINES REF TO TOBACCO CESS PRGM [facility] [place] [facility] Sep 11, 2007 11:10 AM V1-PT DECLINES TOBACCO CESSATION MEDS [facility] [place] [facility] Sep 11, 2007 11:10 AM V1-PT THINKING ABOUT QUIT TOBACCO USE [facility] [place] [facility] Feb 13, 2007 01:46 PM V1-PT DECLINES REF TO TOBACCO CESS PRGM [facility] [place] [facility] Feb 13, 2007 01:46 PM V1-PT DECLINES TOBACCO CESSATION MEDS [facility] Feb 13, 2007 01:46 PM V1-PT THINKING ABOUT QUIT [facility]AC[facility] Oct 02, 2006 08:28 AM QUIT TOBACCO USE IN PAST YEAR 3 months ago [facility] Aug 19, 2005 08:33 AM QUIT TOBACCO USE IN PAST YEAR nonsmoker [facility] Sep 21, 2004 09:54 AM CURRENT SMOKER [facility] Sep 07, 2004 08:07 AM CURRENT SMOKER [facility] Sep 15, 2003 11:21 AM CURRENT SMOKER smokes one pk day [facility] Jul 23, 2003 01:57 PM CURRENT SMOKER [facility] Advance Directives: All historical and current Section Date Range: From patient's date of to the date document was created. This section includes ALL of a patient's completed or amended [place] Advance and Rescinded Directives. The entries below indicate that a directive exists for the patient, but an actual copy is not included with this document. The data comes from all [place] facilities. Date Advance Directives Provider Source Apr 10, 2023 ADVANCE DIRECTIVE ESSIE STARK [facility] Apr 19, 2007 ADVANCE DIRECTIVE ELIZABETHSEAMUSJason [facility] Radiology Reports: +/- 30 days [...] the Encounter. The data comes from all [place] treatment facilities. 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 1019 images were received by the [place] National Teleradiology Program (NTP) for interpretation. RADIATION [...] as above. READING PHYSICIAN: Ck Jean M.D. -[phone] 02/20/2024 12:57 PDT [facility] National Teleradiology Program [phone] (For Medical Practitioner Use Only) Attention Patients / Veterans: If you have questions or concerns about these test results, please contact your ordering provider or primary care team. Primary Diagnostic Code: SIGNIFICANT ABNORMALITY, ATTN NEEDED Primary Interpreting Staff: RADIOLOGY,OUTSIDE SERVICE, Staff Physician / RADIOLOGY,OUTSIDE SERVICE [facility] Encounter Notes: All associated encounter notes This section contains the clinical notes associated to the Encounter. Date/Time Encounter Note(s) Provider Source Mar 08, 2024 12:00 AM NONVA CONSULT: LOCAL TITLE: COMMUNITY CARE-CONSULT RESULT NOTE STANDARD TITLE: NONVA CONSULT DATE OF NOTE: MAR 08, 2024 ENTRY DATE: MAR 26, 2024@10:51:52 AUTHOR: YOGESH BRYANT COSIGNER: URGENCY: STATUS: COMPLETED VistA Imaging - Scanned Document SCANNED DOCUMENT SIGNATURE NOT REQUIRED Electronically Filed: 03/26/2024 by: NASRA BRYANT Club Waiter/Waitress NASRA BRYANT [facility]
--- OUTSIDE RECORDS SUMMARY | 2024-08-16 09:33 | XMS_ITS | Encounter Summary ---
Author Name [facility] [place] [place] [facility] [place] [facility] [place] Address [address] [place] [address] Care Team Providers Care Air Traffic Control Equipment Repairer Name Role Phone TRACY VILLANUEVA Primary Care [...] PHI MEDEX BRONZ E December 19, 2013 [id number] GUSTAVO ARAMBULA SR PATIENT [employer] LIFE [employer] CASUALTY MEDICARE SUPPLEMEN PHI MEDIC ARE SUPPL EMENT Jul 21, 2007 NONE [id number] Edgar ARAMBULA PATIENT [place] MED[place]ARE SUPPLEMEN PHI MEDEX BRONZ E December 19, 2013 [id number] [phone] GUSTAVO ARAMBULA SR PATIENT [place] OF [place] ([place] MEDICARE SUPPLEMEN PHI MEDEX BRONZ E December 19, 2013 [id number] [phone] Edgar ARAMBULA PATIENT MEDICARE (WNR) MEDICARE () PART A Oct 19, 2004 PART A [id number] [id number] Edgar ARAMBULA PATIENT MEDICARE (WNR) MEDICARE (M) PART B Oct 19, 2004 PART B [id number] Edgar ARAMBULA [place] PATIENT MEDICARE (WNR) MEDICARE () PART A Oct 19, 2004 PART A [id number] Edgar ARAMBULAN PATIENT MEDICARE (WNR) MEDICARE () PART B Oct 19, 2004 PART B [id number] Edgar ARAMBULAN PATIENT MEDICARE (WNR) MEDICARE () PART A Oct 19, 2004 PART A [id number] Edgar ARAMBULAN PATIENT MEDICARE (WNR) MEDICARE () PART B Oct 19, 2004 PART B [id number] Edgar ARAMBULAN PATIENT MEDICARE (WNR) MEDICARE () PART A Oct 19, 2004 PART A [id number] Edgar ARAMBULA PATIENT MEDICARE (WNR) MEDICARE () PART B Oct 19, 2004 PART B [id number] [phone] Edgar ARAMBULAN PATIENT MEDICARE (WNR) MEDICARE () PART A Oct 19, 2004 PART A [id number] Edgar ARAMBULAN PATIENT MEDICARE (WNR) MEDICARE () PART B Oct 19, 2004 PART B [id number] Edgar ARAMBULA PATIENT Selected Encounter This section includes the information on [place] at [place] for the Encounter. Date/Time Encounter Type Encounter Description Reason Pro vider Source Apr 05, 2024 11:02 AM Outpatient Encounter PAIN CLINIC I[facility] Encounter [...] - MEDICINE [facility] [place] [facility] Apr 10, 2024 10:45 AM AMBULATORY - MEDICINE [facility] [place] [facility] Apr 26, 2024 11:00 AM AMBULATORY - MEDICINE [facility] [place] [facility] Apr 30, 2024 08:30 AM AMBULATORY - PSYCHIATRY [facility] [place] [facility] May 01, 2024 11:00 AM AMBULATORY - NONE [facility] [place] [facility] May 14, 2024 11:30 AM AMBULATORY - MEDICINE [facility] May 31, 2024 11:00 AM AMBULATORY - REHAB MEDICIN E [facility] [place] [facility] May 31, 2024 12:00 PM AMBULATORY - MEDICINE [facility] [place] [facility] Jun 10, 2024 10:00 AM AMBULATORY - MEDIC[facility] Jun 11, 2024 09:30 AM AMBULATORY - PSYCHIATRY [facility] [place] [facility] Jun 13, 2024 10:00 AM AMBULATORY - MEDICINE [facility] [place] [facility] Jun 19, 2024 11:00 AM AMBULATORY - NONE [facility] [place] [facility] Jun 21, 2024 09:00 AM AMBULATORY - MEDICINE [facility] [place] [facility] Jun 21, 2024 09:15 AM AMBULATORY - MEDICINE [facility] [place] [facility] Jun 21, 2024 09:30 AM AMBULATORY - MEDICINE [facility] [place] [facility] Jun 26, 2024 08:00 AM AMBULATORY - MEDICINE [facility] [place] [facility] Jul 05, 2024 09:00 AM AMBULATORY - REHAB MEDICIN E [facility] [place] [facility] Jul 30, 2024 09:30 AM AMBULATORY - PSYCHIATRY [facility] [place] [facility] Aug 05, 2024 09:45 AM AMBULATORY - MEDICINE [facility] [place] [facility] Sep 06, 2024 11:00 AM [facility] Active, Pending, and Scheduled Orders This [...] 08:08 AM Consult Order COMMUNITY CARE-PULMONARY Cons Clicking Machine Operator's Choice [facility] Lab Results: +/- 30 days of the [...] Range Comment Apr 25, 2024 07:51 AM [facility] HEMOGLOBIN A1C PANEL Specimen Type: BLOOD Comment: [...] Feb 13, 2024 02:36 PM Reporting Lab: [facility] [address] [address] Performing Lab: [facility] [address] [address] HEMOGLOBIN A1C 6.8 H 4.0-5.6 Apr 25, 2024 07:51 AM [facility] MICROALBUMIN CREATININE RATIO PANEL Spe cimen Type: URINE No comment entered. Ordering Provider: TRACY VILLANUEVA Report Released Date/Time: Feb 13, 2024 02:36 PM Reporting Lab: [address] [address] Performing Lab: [facility] [address] [address] MICROALBUMIN/C REATININE RATIO 16.0 mg/g 0-29.9 MICROALBUMIN,Q UANTITATIVE 2.3 mg/dL RR UNAVAIL CREATININE URINE 143.92 mg/dL Apr 25, 2024 07:51 AM [facility] BASIC METABOLIC PANEL (non-fasting) Spe cimen Type: SERUM No comment entered. Ordering Provider: TRACY VILLANUEVA Report Released Date/Time: Feb 13, 2024 02:36 PM Reporting Lab: [address] [address] Performing Lab: [address] [address] UREA NITROGEN 15 mg/dL 7-25 GLUCOSE 173 mg/dL H 65-100 SODIUM 133 mmol/L L 135-145 POTASSIUM 4.2 mmol/L 3.5-5.0 CHLORIDE 100 mmol/L 100-110 CO2 22 meq/L 20-30 CREATININE, Serum 0.74 mg/dL 0.50-1.40 eGFR(CKD-EPI 2020) 89 mL/min >60 Apr 15, 2024 08:39 AM [facility] HEMOGLOBIN A1C PANEL Specimen Type: BLOOD Comment: [...] Apr 09, 2024 09:19 AM Reporting Lab: [address] [address] Performing Lab: [address] [address] HEMOGLOBIN A1C 6.3 H 4.0-5.6 Apr 15, 2024 08:39 AM [facility] LIPID PANEL FASTING Specimen Type: SERUM No comment entered. Ordering Provider: TRACY VILLANUEVA Report Released Date/Time: Apr 09, 2024 09:19 AM Reporting Lab: [address] [place] [address] Performing Lab: [facility] [address] [address] CHOLESTEROL 137 mg/dL TRIGLYCERIDE 63 mg/dL 0-150 LDL calculated 63 mg/dL 0-129 CHOL/HDL 2.2 HDL CHOLESTEROL 61 mg/dL H 40-60 Apr 15, 2024 08:39 AM [facility] LIVER FUNCTION Specimen Type: SERUM No comment entered. Ordering Provider: TRACY VILLANUEVA Report Released Date/Time: Apr 09, 2024 09:19 AM Reporting Lab: [address] [address] Performing Lab: [address] [address] PROTEIN,TOTAL 7.3 g/dL 6.0-8.3 ALBUMIN 4.5 g/dL 3.5-5.0 ALKALINE PHOSPHATASE 62 U/L 40-150 AST 35 U/L H 5-34 ALT 27 U/L BILIRUBIN, TOTAL 2.5 mg/dL H 0.2-1.2 BILIRUBIN, DIRECT 0.7 mg/dL H 0-0.5 Apr 15, 2024 08:39 AM [facility] BASIC METABOLIC PANEL (fasting) Specime n Type: SERUM No comment entered. Ordering Provider: TRACY VILLANUEVA Report Released Date/Time: Apr 09, 2024 09:19 AM Reporting Lab: [address] [address] Performing Lab: [address] [address] UREA NITROGEN 9 mg/dL 7-25 GLUCOSE 159 mg/dL H 65-100 SODIUM 116 mmol/L LL 135-145 POTASSIUM 3.4 mmol/L L 3.5-5.0 CHLORIDE 81 mmol/L L 100-110 CO2 23 meq/L 20-30 CREATININE, Serum 0.69 mg/dL 0.50-1.40 eGFR(CKD-EPI 2020) >90 mL/min >60 Apr 15, 2024 08:39 AM [facility] MICROALBUMIN CREATININE RATIO PANEL Spe cimen Type: URINE No comment entered. Ordering Provider: TRACY VILLANUEVA Report Released Date/Time: Apr 09, 2024 09:19 AM Reporting Lab: [address] [address] Performing Lab: [address] [address] MICROALBUMIN/C REATININE RATIO 83.0 mg/g H 0-29.9 MICROALBUMIN,Q UANTITATIVE 16.8 mg/dL RR UNAVAIL CREATININE URINE 202.40 mg/dL Apr 15, 2024 08:39 AM [facility] VITAMIN D (25-OH) Specimen Type: SERUM No comment entered. Ordering Provider: TRACY VILLANUEVA Report Released Date/Time: Apr 09, 2024 09:19 AM Reporting Lab: [address] [address] Performing Lab: [address] [address] VITAMIN D (25-OH) 49 ng/mL -50 Apr 15, 2024 08:39 AM [facility] CBC Specimen Type: BLOOD Comment: MCHC >36, SPECIMEN 1+ ICTERIC, QNS FOR PLASMA REPLACEMENT INTERPRET RESULTS WITH CAUTION, SUGGEST PROPER REDRAW SHORT DRAW Ordering Provider: TRACY VILLANUEVA Report Released Date/Time: Apr 09, 2024 09:19 AM Reporting Lab: [address] [address] Performing Lab: [address] [address] WBC 8.70 10*3/uL 4.50-11.00 RBC 4.75 10*6/uL [...] 25, 2023 09:05 AM VA-TOBACCO NEVER USED [place] [facility] [place] [facility] 30 MIN WAKEUP [facility] [place] [facility] Dec 13, 2022 03:00 PM VA-TOBACCO USE 30 YEARS OR MORE [facility] [place] [facility] Dec 13, 2022 03:00 PM VA-TOBACCO USE ADVICE [facility] [place] [facility] Dec 13, 2022 03:00 PM VA-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 USE 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 NO [facility] [place] [facility] Nov 17, 2021 10:00 AM VA-TOBACCO USE 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 NO [facility] [place] [facility] Nov 17, 2021 10:00 AM VA-TOBACCO USE MED NO [facility] [place] [facility] Nov 17, 2021 10:00 AM VA-TOBACCO USE WI 30 MIN OF WAKEUP [facility] [place] [facility] Nov 17, 2021 10:00 AM VA-TOBACCO USER EVERY DAY [facility] [place] [facility] Oct 14, 2013 12:55 PM V1-PT NOT INTERESTED IN QUIT TOBACCO USE [facility] [place] [facility] May 07, 2013 05:04 PM CURRENT SMOKER trying to [facility] May 07, 2013 05:04 PM V1-PT DECLINES REF TO TOBACCO [facility]ESS [facility] May 07, 2013 05:04 PM V1-PT DECLINES TOBACCO CESSATION MEDS [facility] May 07, 2013 05:04 PM V1-PT READY TO QUIT TOBACCO USE [facility] Dec 03, 2012 08:23 AM V1-PT DECLINES REF TO TOBACCO CESS PRGM [facility] Dec 03, 2012 08:23 AM V1-PT DECLINES TOBACCO CESSATION MEDS [facility] Dec 03, 2012 08:23 AM V1-PT THINKING ABOUT QUIT TOBACCO USE [facility] Jun 05, 2012 08:45 AM CURRENT SMOKER 1/2ppd [facility] [place] [facility] Jun 05, 2012 08:45 AM V1-PT DECLINES REF TO TOBACCO CESS [facility] Jun 05, 2012 08:45 AM V1-PT THINKING ABOUT QUIT TOBACCO USE [facility] [place] [facility] Jun 05, 2012 08:45 AM V1-TOBACCO CESS MEDS NOT PRESCRIBED Vet wants to talk to his provider-He is nervous about taking meds to quit- but [facility] is [facility] Nov 25, 2011 09:14 AM V1-PT DECLINES REF TO TOBACCO CESS [facility] Nov 25, 2011 09:14 AM V1-PT DECLINES TOBACCO CESSATION MEDS [facility] Nov 25, 2011 09:14 AM V1-PT THINKING ABOUT QUIT TOBACCO USE [facility] May 06, 2011 01:02 PM CURRENT SMOKER [facility] May 06, 2011 01:02 PM V1-PT DECLINES TOBACCO CESSATION MEDS [facility] May 06, 2011 01:02 PM V1-PT NOT INTERESTED IN QUIT TOBACCO USE [facility] Sep 24, 2010 08:51 AM V1-PT [...] V1-PT DECLINES REF TO TOBACCO CESS [facility] [place] [facility] [place] [facility] Aug 26, 2008 09:28 AM V1-PT READY TO QUIT TOBACCO USE [facility] [place] [facility] Dec 19, 2007 10:08 AM V1-PT DECLINES REF TO TOBACCO CESS PRGM [facility] [place] [facility] Dec 19, 2007 10:08 AM V1-PT DECLINES TOBACCO CESSATION MEDS [facility] [place] [facility] Dec 19, 2007 10:08 AM V1-PT THINKING ABOUT QUIT TOBACCO USE [facility] [place] [facility] Sep 11, 2007 11:10 AM CURRENT SMOKER [facility] [place] [facility] Sep 11, 2007 11:10 AM V1-PT DECLINES REF TO TOBACCO CESS [facility] [place] [facility] Sep 11, 2007 11:10 AM V1-PT DECLINES TOBACCO CESSATION MEDS [facility] [place] [facility] Sep 11, 2007 11:10 AM V1-PT THINKING ABOUT QUIT TOBACCO USE [facility] [place] [facility] Feb 13, 2007 01:46 PM V1-PT DECLINES REF TO TOBACCO CESS PRGM [place] [facility] [place] [facility] Feb 13, 2007 01:46 PM V1-PT DECLINES TOBACCO CESSATION MEDS [facility] [place] [facility] Feb 13, 2007 01:46 PM V1-PT THINKING ABOUT QUIT TOBACCO USE [facility] [place] [facility] Oct 02, 2006 08:28 AM QUIT TOBACCO USE IN PAST YEAR 3 months ago [facility] [place] [facility] Aug 19, 2005 08:33 AM QUIT TOBACCO USE IN PAST YEAR nonsmoker [facility] Sep 21, 2004 09:54 AM CURRENT SMOKER [facility] Sep 07, 2004 08:07 AM CURRENT SMOKER [facility] Sep 15, 2003 11:21 AM CURRENT SMOKER smokes one pk day [facility] Jul 23, 2003 01:57 PM CURRENT SMOKER [facility] Advance Directives: All historical and [...] Apr 10, 2023 ADVANCE DIRECTIVE GEORGEESSIE DOZIER [facility] Apr 19, 2007 ADVANCE DIRECTIVE VICTORIA JOHNSON [facility] Encounter Notes: All associated encounter notes This section contains the clinical notes associated to the Encounter. Date/Time Encounter Note(s) Provider Source Apr 05, 2024 11:02 AM TELEPHONE ENCOUNTE R NOTE: LOCAL TITLE: TELEPHONE NOTE/SPECIALTY CLINIC STANDARD TITLE: TELEPHONE ENCOUNTER NOTE DATE OF NOTE: APR 05, 2024@11:02 ENTRY DATE: APR 05, 2024@11:02:14 AUTHOR: NAVEEN GOLDSMITH COSIGNER: URGENCY: STATUS: COMPLETED Call attempt was made to remind vet they have a VVC appt with the Pain clinic on 04/08/2024 at 930. No answer, lvm. /es/ NAVEEN GOLDSMITH [employer] Signed: 04/05/2024 11:02 NAVEEN GOLDSMITH [facility]
--- OUTSIDE RECORDS SUMMARY | 2024-08-16 09:33 | XMS_ITS | Encounter Summary ---
Author Name [facility] [place] Organization [facility] [place] Address [address] [place] [address] Care Team Providers Care Pulp And Paper Tester Name Role Phone TRACY VILLANUEVA Primary [...] PHI MEDEX BRONZ E December 19, 2013 [id number] GUSTAVO GUZMAN SR PATIENT [employer] MEDICARE SUPPLEMEN PHI MEDIC ARE SUPPL EMENT Jul 21, 2007 NONE [id number] Edgar GUZMAN PATIENT [place] MED[place] SUPPLEMEN PHI MEDEX BRONZ E December 19, 2013 [id number] [phone] GUSTAVO GUZMAN SR PATIENT [place] MEDICARE SUPPLEMEN PHI MEDEX BRONZ E December 19, 2013 [id number] FILEMONEEdgar [place] PATIENT MEDICARE (WNR) MEDICARE (M) PART A Oct 19, 2004 PART A [id number] Edgar GUZMAN [place] PAT[place] MEDICARE (WNR) MEDICARE (M) PART B Oct 19, 2004 PART B [id number] Edgar GUZMAN [place] PAT[place] MEDICARE ([place]) MEDICARE (M) PART A Oct 19, 2004 PART A [id number] [id number] Edgar GUZMAN [place] PAT[place] MEDICARE ([place]) MEDICARE (M) PART B Oct 19, 2004 PART B [id number] [phone] [id number] Edgar GUZMAN [place] PAT[place] MEDICARE ([place]) MEDICARE (M) PART A Oct 19, 2004 PART A [id number] [id number] Edgar GUZMAN [place] PAT[place] MEDICARE ([place]) MEDICARE () PART B Oct 19, 2004 PART B [id number] [id number] Edgar GUZMAN [place] PATIENT MEDICARE ([place]) MEDICARE () PART A Oct 19, 2004 PART A [id number] Edgar GUZMAN [place] PAT[place] MEDICARE ([place]) MEDICARE () PART B Oct 19, 2004 PART B [id number] FILEMONEEdgar [place] PATIENT MEDICARE (WNR) MEDICARE () PART A Oct 19, 2004 PART A [id number] Edgar GUZMAN [place] PATIENT MEDICARE ([place]) MEDICARE () PART B Oct 19, 2004 PART B [id number] Edgar GUZMANN PATIENT Selected Encounter This section includes the information on record at [place] for the Encounter. Date/Time Encounter Type Encounter Description Reason Provider Source Apr 08, 2024 09:30 AM OFFICE O/P EST MOD 30 MIN PAIN CLINIC ICD-10-CM G89.4 Chronic pain syndrome ERROL,S ETH B IHE Encounter Template Text not used by [facility] Assessments - Encounter Diagnoses This section includes the primary and secondary diagnoses documented for the Encounter. Date/Time Primary/Secondary Diagnosis Diagnosis Name Provider Source Apr 08, 2024 10:03 AM PRIMARY Chronic pain syndrome YOLIECATHYANABELL,S ETH B [facility] [place] [facility] Apr 08, 2024 10:03 AM SECONDARY Generalized anxiety disorder YOLIESCHANABELL,S ETH B [facility] [place] [facility] Apr 08, 2024 10:03 AM SECONDARY Sleep apnea, unspecified ERROL,S ETH B [facility] [place] [facility] Plan of Treatment: Future Appointments (+ 6 months) and Future Tests (+/- 45 days) The Plan of Treatment section includes future care activities for the patient from all [place] treatmentarbor healthities. This section includes future appointments and future orders which are active, pending or scheduled. Future Appointments This section includes appointments that were scheduled to occur 6 months from the date of the Encounter, up to a maximum of 20 appointments. The data comes from all [place] treatment facilities. Appointment Date/Time Appointment Type Appointme nt Facility Name Apr 10, 2024 10:45 AM AMBULATORY - MEDICINE [facility] [place] [facility] Apr 26, 2024 11:00 AM AMBULATORY - MEDICINE [facility] [place] [facility] Apr 30, 2024 08:30 AM AMBULATORY - PSYCHIATRY [facility] [place] [facility] May 01, 2024 11:00 AM AMBULATORY - NONE [facility] [place] [facility] May 14, 2024 11:30 AM AMBULATORY - MEDICINE [facility] May 31, 2024 11:00 AM AMBULATORY - REHAB MEDICIN E [facility] [place] [facility] May 31, 2024 12:00 PM AMBULATORY - MEDICINE [facility] [place] [facility] Jun 10, 2024 10:00 [facility] Jun 11, 2024 09:30 AM AMBULATORY - PSYCHIATRY [facility] [place] [facility] Jun 13, 2024 10:00 AM AMBULATORY - MEDICINE [facility] [place] [facility] Jun 19, 2024 11:00 AM AMBULATORY - NONE [facility] [place] [facility] Jun 21, 2024 09:00 AM AMBULATORY - MEDICINE [facility] [place] [facility] Jun 21, 2024 09:15 AM AMBULATORY - MEDICINE [place] [facility] [place] [facility] Jun 21, 2024 09:30 AM AMBULATORY - MEDICINE [place] [facility] [place] [facility] Jun 26, 2024 08:00 AM AMBULATORY - MEDICINE [facility] [place] [facility] Jul 05, 2024 09:00 AM AMBULATORY - REHAB MEDICIN E [facility] [place] [facility] Jul 30, 2024 09:30 AM AMBULATORY - PSYCHIATRY [facility] [place] [facility] Aug 05, 2024 09:45 AM AMBULATORY - MEDICINE [place] [facility] [place] [facility] Sep 06, 2024 11:00 AM AMBULATORY - MEDICINE [place] [facility] [place] [facility] Sep 26, 2024 12:30 PM AMBULATORY - MEDICINE [place] [place] Active, Pending, [...] of theEncounter. The data comes from all [place] treatment facilities. Test Date/Time Test Type Test Details Facility Name May 15, 2024 08:08 AM Consult Order COMMUNITY CARE-PULMONARY Cons Supervisor [employer] [facility] Lab Results: +/- 30 days of the [...] Range Comment Apr 25, 2024 07:51 AM [facility] HEMOGLOBIN A1C PANEL Specimen Type: BLOOD Comment: [...] Feb 13, 2024 02:36 PM Reporting Lab: [address] [address] Performing Lab: [address] [address] HEMOGLOBIN A1C 6.8 H 4.0-5.6 Apr 25, 2024 07:51 AM [facility] MICROALBUMIN CREATININE RATIO PANEL Spe cimen Type: URINE No comment entered. Ordering Provider: TRACY VILLANUEVA Report Released Date/Time: Feb 13, 2024 02:36 PM Reporting Lab: [address] [address] Performing Lab: [address] [address] MICROALBUMIN/C REATININE RATIO 16.0 mg/g 0-29.9 MICROALBUMIN,Q UANTITATIVE 2.3 mg/dL RR UNAVAIL CREATININE URINE 143.92 mg/dL Apr 25, 2024 07:51 AM [facility] BASIC METABOLIC PANEL (non-fasting) Spe cimen Type: SERUM No comment entered. Ordering Provider: TRACY VILLANUEVA Report Released Date/Time: Feb 13, 2024 02:36 PM Reporting Lab: [address] [address] Performing Lab: [address] [address] UREA NITROGEN 15 mg/dL 7-25 GLUCOSE 173 mg/dL H 65-100 SODIUM 133 mmol/L L 135-145 POTASSIUM 4.2 mmol/L 3.5-5.0 CHLORIDE 100 mmol/L 100-110 CO2 22 meq/L 20-30 CREATININE, Serum 0.74 mg/dL 0.50-1.40 eGFR(CKD-EPI 2020) 89 mL/min >60 Apr 15, 2024 08:39 AM [facility] HEMOGLOBIN A1C PANEL Specimen Type: BLOOD Comment: [...] Apr 09, 2024 09:19 AM Reporting Lab: [address] [address] Performing Lab: [address] [address] HEMOGLOBIN A1C 6.3 H 4.0-5.6 Apr 15, 2024 08:39 AM [facility] LIPID PANEL FASTING Specimen Type: SERUM No comment entered. Ordering Provider: TRACY VILLANUEVA Report Released Date/Time: Apr 09, 2024 09:19 AM Reporting Lab: [address] [address] Performing Lab: [address] [address] CHOLESTEROL 137 mg/dL TRIGLYCERIDE 63 mg/dL 0-150 LDL calculated 63 mg/dL 0-129 CHOL/HDL 2.2 HDL CHOLESTEROL 61 mg/dL H 40-60 Apr 15, 2024 08:39 AM [facility] BASIC METABOLIC PANEL (fasting) Specime n Type: SERUM No comment entered. Ordering Provider: TRACY VILLANUEVA Report Released Date/Time: Apr 09, 2024 09:19 AM Reporting Lab: [address] [address] Performing Lab: [address] [address] UREA NITROGEN 9 mg/dL 7-25 GLUCOSE 159 mg/dL H 65-100 SODIUM 116 mmol/L LL 135-145 POTASSIUM 3.4 mmol/L L 3.5-5.0 CHLORIDE 81 mmol/L L 100-110 CO2 23 meq/L 20-30 CREATININE, Serum 0.69 mg/dL 0.50-1.40 eGFR(CKD-EPI 2020) >90 mL/min >60 Apr 15, 2024 08:39 AM [facility] MICROALBUMIN CREATININE RATIO PANEL Spe cimen Type: URINE No comment entered. Ordering Provider: TRACY VILLANUEVA Report Released Date/Time: Apr 09, 2024 09:19 AM Reporting Lab: [address] [address] Performing Lab: [address] [address] MICROALBUMIN/C REATININE RATIO 83.0 mg/g H 0-29.9 MICROALBUMIN,Q UANTITATIVE 16.8 mg/dL RR UNAVAIL CREATININE URINE 202.40 mg/dL Apr 15, 2024 08:39 AM [facility] VITAMIN D (25-OH) Specimen Type: SERUM No comment entered. Ordering Provider: TRACY VILLANUEVA Report Released Date/Time: Apr 09, 2024 09:19 AM Reporting Lab: [address] [address] Performing Lab: [address] [address] VITAMIN D (25-OH) 49 ng/mL 20-50 Apr 15, 2024 08:39 AM [facility] LIVER FUNCTION Specimen Type: SERUM No comment entered. Ordering Provider: TRACY VILLANUEVA Report Released Date/Time: Apr 09, 2024 09:19 AM Reporting Lab: [address] [address] Performing Lab: [address] [address] PROTEIN,TOTAL 7.3 g/dL 6.0-8.3 ALBUMIN 4.5 g/dL 3.5-5.0 ALKALINE PHOSPHATASE 62 U/L 40-150 AST 35 U/L H 5-34 ALT 27 U/L BILIRUBIN, TOTAL 2.5 mg/dL H 0.2-1.2 BILIRUBIN, DIRECT 0.7 mg/dL H 0-0.5 Apr 15, 2024 08:39 AM [facility] CBC Specimen Type: BLOOD Comment: MCHC >36, SPECIMEN 1+ ICTERIC, QNS FOR PLASMA REPLACEMENT INTERPRET RESULTS WITH CAUTION, SUGGEST PROPER REDRAW SHORT DRAW Ordering Provider: TRACY VILLANUEVA Report Released Date/Time: Apr 09, 2024 09:19 AM Reporting Lab: [address] [address] Performing Lab: [address] [address] WBC 8.70 10*3/uL 4.50-11.00 RBC 4.75 10*6/uL [...] 2023 09:05 AM VA-TOBACCO [facility] Tobacco Use History This section includes a history of the smoking, or tobacco-related health factors, that were collected on or before the date of the Encounter. The data comes from the [place] facility where the Encounter took place. Date/Time Smoking Status/Tobac co Use Comment Facility Dec 13, 2022 03:00 PM VA-TOBACCO DOESNT USE WI 30 MIN WAKEUP [facility] [place] [facility] Dec 13, 2022 03:00 PM VA-TOBACCO USE 30 YEARS OR MORE [facility] [place] [facility] Dec 13, 2022 03:00 PM VA-TOBACCO USE ADVICE [facility] [place] [facility] Dec 13, 2022 03:00 PM VA-TOBACCO USE TILE TRIMMER NO [facility] [place] [facility] Dec 13, 2022 03:00 PM VA-TOBACCO USE MED NO [facility] [place] [facility] Dec 13, 2022 03:00 PM VA-TOBACCO USER EVERY DAY [facility] [place] [facility] Nov 17, 2021 10:00 AM VA-TOBACCO USE 30 YEARS OR MORE [facility] [place] [facility] Nov 17, 2021 10:00 AM VA-TOBACCO USE ADVICE [facility] [place] [facility] Nov 17, 2021 10:00 AM VA-TOBACCO USE TILE TRIMMER NO [facility] Nov 17, 2021 10:00 AM VA-TOBACCO USE MED NO [facility] Nov 17, 2021 10:00 AM VA-TOBACCO USE WI 30 MIN OF WAKEUP [facility] Nov 17, 2021 10:00 AM VA-TOBACCO USER EVERY DAY [facility] Oct 14, 2013 12:55 PM V1-PT NOT INTERESTED IN QUIT TOBACCO USE [facility] May 07, 2013 05:04 PM CURRENT SMOKER trying to stop [facility] May 07, 2013 05:04 PM V1-PT DECLINES REF TO TOBACCO CESS PRGM [facility] May 07, 2013 05:04 PM V1-PT DECLINES TOBACCO CESSATION MEDS [facility] May 07, 2013 05:04 PM V1-PT READY TO QUIT TOBACCO USE [facility] Dec 03, 2012 08:23 AM V1-PT DECLINES REF TO TOBACCO CESS PRGM [facility] Dec 03, 2012 08:23 AM V1-PT DECLINES TOBACCO CESSATION MEDS [facility] Dec 03, 2012 08:23 AM V1-PT THINKING ABOUT QUIT TOBACCO USE [facility] Jun 05, 2012 08:45 AM CURRENT SMOKER 1/2ppd [facility] Jun 05, 2012 08:45 AM V1-PT DECLINES REF TO TOBACCO CESS PR[facility] Jun 05, 2012 08:45 AM V1-PT THINKING ABOUT QUIT TOBACCO USE [facility] Jun 05, 2012 08:45 AM V1-TOBACCO CESS MEDS NOT PRESCRIBED Vet wants to talk to his provider-He is nervous about taking meds to quit- but he is interested in quitting [facility] Nov 25, 2011 09:14 AM V1-PT DECLINES REF TO TOBACCO CESS PRGM [facility] [place] [facility] Nov 25, 2011 09:14 AM V1-PT DECLINES TOBACCO CESSATION MEDS [facility] [place] [facility] Nov 25, 2011 09:14 AM V1-PT THINKING ABOUT QUIT TOBACCO USE [facility] [place] [facility] May 06, 2011 01:02 PM CURRENT SMOKER [facility] [place] [facility] May 06, 2011 01:02 PM V1-PT DECLINES TOBACCO CESSATION MEDS [facility] [place] [facility] May 06, 2011 01:02 PM V1-PT NOT INTERESTED IN QUIT TOBACCO USE [facility] [place] [facility] Sep 24, 2010 08:51 AM V1-PT DECLINES TOBACCO CESSATION MEDS [facility] [place] [facility] Sep 24, 2010 08:51 AM V1-PT THINKING ABOUT QUIT TOBACCO USE [facility] [place] [facility] Mar 22, 2010 07:58 AM CURRENT SMOKER 1/2 ppd [facility] [place] [facility] Feb 25, 2009 12:05 PM QUIT TOBACCO USE IN PAST YEAR [facility] [place] [facility] Aug 26, 2008 09:28 AM CURRENT SMOKER 1/2 ppd [facility] [place] [facility] Aug 26, 2008 09:28 AM V1-PT DECLINES REF TO TOBACCO CESS PRGM [facility] [place] [facility] Aug 26, 2008 09:28 AM V1-PT READY TO QUIT TOBACCO USE [facility] [place] [facility] Dec 19, 2007 10:08 AM V1-PT DECLINES REF TO TOBACCO CESS PRGM [facility] [place] [facility] Dec 19, 2007 10:08 AM V1-PT DECLINES TOBACCO CESSATION MEDS [facility] [place] [facility] Dec 19, 2007 10:08 AM V1-PT THINKING ABOUT QUIT TOBACCO USE [facility] [place] [facility] Sep 11, 2007 11:10 AM CURRENT SMOKER [facility] [place] [facility] Sep 11, 2007 11:10 AM V1-PT DECLINES REF TO TOBACCO CESS PRGM [place] [facility] [place] [facility] Sep 11, 2007 11:10 AM V1-PT DECLINES TOBACCO CESSATION MEDS [facility] [place] [facility] Sep 11, 2007 11:10 AM V1-PT THINKING ABOUT QUIT TOBACCO USE [facility] Feb 13, 2007 01:46 PM V1-PT DECLINES REF TO TOBACCO CESS PRGM [facility] Feb 13, 2007 01:46 PM V1-PT DECLINES TOBACCO CESSATION MEDS [facility] Feb 13, 2007 01:46 PM V1-PT THINKING ABOUT QUIT TOBACCO USE [facility] Oct 02, 2006 08:28 AM QUIT TOBACCO USE IN PAST YEAR 3 months ago [facility] Aug 19, 2005 08:33 AM QUIT TOBACCO USE IN PAST YEAR nonsmoker [facility] Sep 21, 2004 09:54 AM CURRENT SMOKER [facility] Sep 07, 2004 08:07 AM CURRENT SMOKER [facility] Sep 15, 2003 11:21 AM CURRENT SMOKER smokes one pk day [facility] Jul 23, 2003 01:57 PM CURRENT SMOKER [facility] Advance Directives: All historical [...] Source Apr 10, 2023 ADVANCE DIRECTIVE [facility] Apr 19, 2007 ADVANCE DIRECTIVE VICTORIA [facility]OHNSON [facility] Encounter Notes: All associated encounter notes This section contains the clinical notes associated to the Encounter. Date/Time Encounter Note(s) Provider Source Apr 08, 2024 10:00 AM ACCOUNTING OF DISCLOSURES NOTE: LOCAL TITLE: STATE PRESCRIPTION DRUG MONITORING PROGRAM STANDARD TITLE: ACCOUNTING OF DISCLOSURES NOTE DATE OF NOTE: APR 08, 2024@10:00:54 ENTRY DATE: APR 08, 2024@10:00:54 AUTHOR: KUPFERSCHMID,JUAQUIN B EXP COSIGNER: URGENCY: STATUS: COMPLETED This PDMP query was submitted by Juaquin Schaffer MD. The clinical justification for this PDMP query is to review controlled substances prescribed outside of the [facility], and any additional information that may become available, as an important component of standard clinical care, and in accordance with [facility] policy. Patient information was shared with the PDMP [place]. No prescription(s) for controlled substances outside the [place] were found in the last 90 days. /reginaldo/ JUAQUIN SCHAFFER MD PHYSICIAN Signed: 04/08/2024 10:01 JUAQUIN SCHAFFER [facility] [place] [facility] Apr 08, 2024 09:33 AM PAIN MEDICINE OUTPATIENT NOTE: LOCAL TITLE: PAIN CLINIC NOTE STANDARD TITLE: PAIN MEDICINE OUTPATIENT NOTE DATE OF NOTE: APR 08, 2024@09:33 ENTRY DATE: APR 08, 2024@09:33:22 AUTHOR: JUAQUIN SCHAFFER EXP COSIGNER: URGENCY: STATUS: COMPLETED Elijah Rebolledo, [facility], . Please call him with appointments and information; is elderly and with impaired memory. CURRENT Elijah Rebolledo in next to . Doing well regarding pain, I have none. Butrans dose was reduced, nausea decreased but persists. 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 Guzman is an 82 year old [facility] with pain in his left abdomen and chest since January 19, 2023, after a TAVR procedure. 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 Reports significant relief. -Continue Butrans 5 mcg/hour SLEEP APNEA Uses CPAP. MOOD, SLEEP Meds per MH prescriber. and I formulated the plan through shared medical-decision making. [place] repeated the plan back to me and had no further questions at end of appointment. APPOINTMENT LENGTH: 30 minutes FOLLOW-UP: 16 weeks 04/10/2024 10:45 COM CARE-GI GENERAL 04/18/2024 09:00 CWM/NO/VVC/MHC/DANIELS1 04/18/2024 13:30 CWM/SO/PACT 7 04/26/2024 11:00 CWM/SO/PHARM/PACT 2 05/01/2024 11:00 CWM/SO/NUTRITION1 MEDICATION and RECONCILIATION Active Outpatient Medications (including Supplies): Active Outpatient Medications Status 1) ACETAMINOPHEN 500MG TAB TAKE TWO TABLETS BY MOUTH ACTIVE TWICE DAILY FOR PAIN 2) ALBUTEROL 90MCG (CFC-F) 200D ORAL INHL INHALE 1 TO 2 ACTIVE PUFFS BY MOUTH EVERY 6 HOURS NEEDED FOR BRONCHOSPASM 3) AMLODIPINE BESYLATE 10MG TAB TAKE ONE TABLET BY MOUTH ACTIVE ONCE DAILY FOR BLOOD PRESSURE/HEART, DO NOT TAKE WITH GRAPEFRUIT JUICE 4) APIXABAN 5MG TAB TAKE ONE TABLET BY MOUTH EVERY 12 ACTIVE HOURS FOR PREVENTION OF BLOOD CLOTS 5) ASPIRIN 81MG EC TAB TAKE ONE TABLET BY MOUTH ONCE ACTIVE DAILY TO PREVENT STROKE/HEART ATTACK 6) ATORVASTATIN CALCIUM 40MG TAB TAKE ONE-HALF TABLET BY ACTIVE MOUTH ONCE DAILY FOR CHOLESTEROL 7) BUPRENORPHINE 5MCG/HR PATCH APPLY 1 PATCH TO SKIN ACTIVE EVERY 5 DAYS FOR PAIN (REMOVE PATCH BEFORE APPLYING A NEW PATCH) Yes 8) CITALOPRAM HYDROBROMIDE 20MG TAB TAKE ONE-HALF TABLET ACTIVE BY MOUTH ONCE DAILY FOR 4 DAYS, THEN TAKE ONE TABLET ONCE DAILY FOR DEPRESSION AND ANXIETY 9) DEPEND UNDERWEAR,MAXIMUM,MEN SM/MED USE 1 BRIEF ACTIVE DIRECTED TWICE DAILY FOR INCONTINENCE 10) FLUTICAS 500/SALMETEROL 50 INHL DISK 60 INHALE 1 PUFF ACTIVE BY MOUTH TWICE DAILY - RINSE MOUTH AFTER USE 11) HYDROCHLOROTHIAZIDE 25MG TAB TAKE ONE-HALF TABLET BY ACTIVE MOUTH ONCE DAILY FOR HIGH BLOOD PRESSURE 12) HYDROCORTISONE 1% OINT APPLY THIN LAYER TOPICALLY ACTIVE TWICE DAILY NEEDED FOR ATOPIC DERMATITIS 13) MELATONIN 5MG CAP/TAB TAKE ONE CAPSULE/TABLET BY ACTIVE (S) MOUTH AT BEDTIME FOR INSOMNIA 14) METFORMIN HCL 750MG 24HR SA TAB TAKE TWO TABLETS BY ACTIVE MOUTH ONCE DAILY FOR TYPE 2 DIABETES MELLITUS 15) NICOTINE 14MG/24HR PATCH APPLY 1 PATCH TO SKIN ONCE ACTIVE DAILY (REMOVE OLD PATCH BEFORE APPLYING NEW PATCH) 16) NICOTINE 7MG/24HR PATCH APPLY 1 PATCH TO SKIN ONCE ACTIVE DAILY (REMOVE OLD PATCH BEFORE APPLYING NEW PATCH) * USE AFTER 14 MG PATCHES * 17) NUTRITION SUPL ENSURE PLUS/CONNIE LIQUID DRINK 1 CAN BY HOLD MOUTH TWICE DAILY 18) ONDANSETRON 4MG ORAL DISINTEGRATING TAB PLACE ONE ACTIVE TABLET ON THE TONGUE EVERY 8 HOURS NEEDED FOR NAUSEA AND VOMITING (ALLOW TABLET TO DISSOLVE ON TONGUE, AND SWALLOW WITH SALIVA) 19) PANTOPRAZOLE NA 40MG EC TAB TAKE ONE TABLET BY MOUTH ACTIVE EVERY MORNING 30 MINUTES BEFORE BREAKFAST 20) QUETIAPINE FUMARATE 25MG TAB TAKE ONE TABLET BY MOUTH ACTIVE AT BEDTIME SLEEP, DEPRESSION, ANXIETY 21) SENNOSIDES 8.6MG TAB TAKE ONE TABLET BY MOUTH TWICE ACTIVE DAILY NEEDED FOR CONSTIPATION 22) TABLET CUTTER (PILL SPLITTER) USE CUTTER DIRECTED ACTIVE BY PROVIDER TO SPLIT TABLETS 23) TIOTROPIUM 2.5MCG/ACTUAT 60D ORAL INHL INHALE 2 PUFFS ACTIVE BY MOUTH ONCE DAILY 24) TRIAMCINOLONE ACETONIDE 0.1% CREAM APPLY A THIN LAYER HOLD TOPICALLY EVERY 5 DAYS ACTIVE PROBLEMS Active problems - Computerized Problem List is the source for the followin. HERMILO - Generalized anxiety disorder 2. Male urinary stress incontinence 3. Chronic pain 4. Chronic anaemia 5. Diabetes mellitus type 2 6. Long-term current use of anticoagulant 7. Communication authorization 8. Splenic infarction 9. Abnormal imaging 10. Aortic valve stenosis 11. Aneurysm of ascending aorta 12. Osteopenia 13. Sleep apnea 14. Admits alcohol use 15. Insomnia 16. Chronic obstructive lung disease 17. History of peripheral vascular disease 18. Jc's esophagus 19. Disorder of lumbar disc (SNOMED CT 845018959) 20. Depression (SNOMED CT 42808590) 21. Dry Eye Syndromes * 22. 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 Localised, primary osteoarthritis 24. Prostate, Malign Neoplasm 25. Cataract, Cortical (Senile) 26. 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 Mixed hyperlipidaemia 28. Benign essential hypertension 29. POLYPS, COLON/LG BOWEL (BENIGN MAEGAN 30. Tobacco use (SNOMED CT 342894614) Appointment length includes time with , completing clinical reminders, reviewing relevant information in EMR, review of PDMP, ordering appropriate tests, prescribing medications, coordinating care, and completing the medical record. [place] [employer] ([facility]) Standard Documentation [facility] Clinician Resources Only: E911 (Emergency Call Relay Center): [phone] National [facility] Crisis Line - 988 then press #1. [facility] Suicide Coordinator [phone], Ext. [phone]; Back-up Ext. [phone] [place] Police, [place], [place] [phone] Introduction: Visit is being conducted by [place] One[employer]. identified with 2 identifiers: [X] Full Name [X] Date of [ ] [place] ID Card Emergency Plan: confirmed and/or provided the following information in case of emergency or technology failure. PATIENT PHONE - PHONE NUMBER [CELLULAR] - Is patient phone number correct, if not, enter below: 's phone number: GUSTAVO GUZMAN SR [address], [address] 's present location and address for appointment: Home [place]'s emergency contact name and phone number: Listed reported that location is private and safe: Yes Informed Consent: informed of the risks and benefits of Telehealth video care. [place] has the right to refuse video services. If refuses video visit, a lyxw-ja-dlhe visit will be scheduled. [place] verbalized consent for this video visit: Yes provided consent for any other persons present for visit: Yes If yes, who and relationship to patient:Elijah Rebolledo Secure visit: Visit was locked for security and privacy:Yes /reginaldo/ JUAQUIN SCHAFFER MD PHYSICIAN Signed: 04/08/2024 10:04 JUAQUIN SCHAFFER [place] [facility]
--- OUTSIDE RECORDS SUMMARY | 2024-08-16 09:33 | XMS_ITS | Encounter Summary ---
Author Name [facility] [place] [facility] [place] Address [address] [place] [address] Care Team Providers Care Animal Keeper Name Role Phone TRACY VILLANUEVA Primary Care [...] PHI MEDEX BRONZ E December 19, 2013 [id number] [phone] GUSTAVO ARAMBULA SR PATIENT [employer] MEDICARE SUPPLEMEN PHI MEDIC ARE SUPPL EMENT Jul 21, 2007 NONE [id number] Edgar ARAMBULA PATIENT [place] MED[place] SUPPLEMEN PHI MEDEX BRONZ E December 19, 2013 [id number] [phone] GUSTAVO ARAMBULA SR PATIENT [place] ([place] MEDICARE SUPPLEMEN PHI MEDEX BRONZ E December 19, 2013 [id number] Edgar ARAMBULA PATIENT MEDICARE (WNR) MEDICARE () PART A Oct 19, 2004 PART A [id number] Edgar ARAMBULAN PATIENT MEDICARE (WNR) MEDICARE () PART B Oct 19, 2004 PART B [id number] [phone] Edgar ARAMBULA [place] PATIENT MEDICARE (WNR) MEDICARE () PART A Oct 19, 2004 PART A [id number] Edgar ARAMBULAN PATIENT MEDICARE (WNR) MEDICARE () PART B Oct 19, 2004 PART B [id number] Edgar ARAMBULAN PATIENT MEDICARE (WNR) MEDICARE () PART A Oct 19, 2004 PART A [id number] [phone] Edgar ARAMBULA [place] PATIENT MEDICARE ([place]) MEDICARE () PART B Oct 19, 2004 PART B [id number] Edgar ARAMBULAN PATIENT MEDICARE (WNR) MEDICARE () PART A Oct 19, 2004 PART A [id number] Edgar ARAMBULA PATIENT MEDICARE (WNR) MEDICARE () PART B Oct 19, 2004 PART B [id number] Edgar ARAMBULAN PATIENT MEDICARE (WNR) MEDICARE () PART A Oct 19, 2004 PART A [id number] [phone] Edgar ARAMBULAN PATIENT MEDICARE (WNR) MEDICARE () PART B Oct 19, 2004 PART B [id number] Edgar ARAMBULAN PATIENT Selected Encounter This section includes the information on record at [place] for the Encounter. Date/Time Encounter Type Encounter Description Reason Pro vider Source Feb 05, 2024 12:00 AM Outpatient Encounter EVENT (HISTORICAL) [...] 20 appointments. The data comes from all [place] treatment facilities. Appointment Date/Time Appointment Type Appointme nt Facility Name Feb 13, 2024 11:30 AM AMBULATORY - MED[facility] Feb 15, 2024 09:00 AM AM[facility] [place] [facility] Feb 15, 2024 09:45 AM AMBULATORY - NONE [facility] [place] [facility] Mar 07, 2024 09:00 AM AMBULATORY [facility]IAT[facility] [place] [facility] Mar 08, 2024 08:30 AM AMBULATORY - NONE [facility] [place] [facility] Mar 11, 2024 09:00 AM AMBULATORY [facility] MED[facility] Apr 04, 2024 11:00 AM AMBULATORY [facility] [place] [facility] Apr 08, 2024 09:30 AM [facility]INE [facility] [place] [facility] Apr 10, 2024 10:45 AM AM[facility]ORY [facility]ICINE [facility] [place] [facility] Apr 26, 2024 11:00 AM AM[facility]ULATORY [facility]ICINE [facility] [place] [facility] Apr 30, 2024 08:30 AM AMBULATORY - PS[facility]IATRY [facility] [place] [facility] May 01, 2024 11:00 AM AMBULATORY - NONE [facility] [place] [facility] May 14, 2024 11:30 AM AMBULATORY [facility] May 31, 2024 11:00 AM AMBULATORY - REHAB MEDICIN E [facility] [place] [facility] May 31, 2024 12:00 PM AMBULATORY [facility] MEDICINE [facility] [place] [facility] Jun 10, 2024 10:00 AM AMBULATORY [facility] Jun 11, 2024 09:30 AM AMBULATORY [facility] PS[facility]CHIATRY [facility] [place] [facility] Jun 13, 2024 10:00 AM AM[facility]ULATORY [facility] MEDICINE [facility] [place] [facility] Jun 19, 2024 11:00 AM AMBULATORY - NONE [facility] [place] [facility] Jun 21, 2024 09:00 AM AMBULATORY - MEDICINE [place] [facility] [place] [facility] Social History: Smoking Status (Most current) [...] 25, 2023 09:05 AM VA-TOBACCO NEVER USED [place] [facility] Tobacco Use History This section includes a history of the smoking, or tobacco-related health factors, that were collected on or before the date of the Encounter. The data comes from the [place] facility where the Encounter took place. Date/Time Smoking Status/Tobac co Use Comment Facility Dec 13, 2022 03:00 PM VA-TOBACCO DOESNT USE WI 30 MIN WAKEUP [place] [facility] [place] [facility] Dec 13, 2022 03:00 PM VA-TOBACCO USE 30 YEARS OR MORE [facility] [place] [facility] Dec 13, 2022 03:00 PM VA-TOBACCO USE ADVICE [facility] [place] [facility] Dec 13, 2022 03:00 PM VA-TOBACCO USE [facility] NO [facility] [place] [facility] Dec 13, 2022 03:00 PM VA-TOBACCO USE MED NO [facility] [place] [facility] Dec 13, 2022 03:00 PM VA-TOBACCO USER EVERY DAY [facility] [place] [facility] Nov 17, 2021 10:00 AM VA-TOBACCO USE 30 YEARS OR MORE [facility] [place] [facility] Nov 17, 2021 10:00 AM VA-TOBACCO USE ADVICE [facility] [place] [facility] Nov 17, 2021 10:00 AM VA-TOBACCO USE [facility] NO [facility] [place] [facility] Nov 17, 2021 10:00 AM VA-TOBACCO USE MED NO [facility] [place] [facility] Nov 17, 2021 10:00 AM VA-TOBACCO USE WI 30 MIN OF WAKEUP [facility] [place] [facility] Nov 17, 2021 10:00 AM VA-TOBACCO USER EVERY DAY [facility] Oct 14, 2013 12:55 PM V1-PT NOT INTERESTED IN QUIT TOBACCO USE [facility] May 07, 2013 05:04 PM CURRENT SMOKER trying to stop [facility] May 07, 2013 05:04 PM V1-PT DECLINES REF TO TOBACCO CESS [facility] May 07, 2013 05:04 PM V1-PT DECLINES TOBACCO CESSATION MEDS [facility] May 07, 2013 05:04 PM V1-PT READY TO QUIT TOBACCO USE [facility] Dec 03, 2012 08:23 AM V1-PT DECLINES REF TO TOBACCO CESS PRGM [facility] Dec 03, 2012 08:23 AM V1-PT DECLINES TOBACCO CESSATION MEDS [facility] Dec 03, 2012 08:23 AM V1-PT THINKING ABOUT QUIT TOBACCO USE [facility] Jun 05, 2012 08:45 AM CURRENT SMOKER 1/2ppd [facility] Jun 05, 2012 08:45 AM V1-PT DECLINES REF TO TOBACCO CESS PRGM [facility] Jun 05, 2012 08:45 AM V1-PT THINKING ABOUT QUIT TOBACCO USE [facility] Jun 05, 2012 08:45 AM V1-TOBACCO CESS MEDS NOT PRESCRIBED Vet wants to talk to his provider-He is nervous about taking meds to quit- but he is interested in quitting [facility] Nov 25, 2011 09:14 AM V1-PT DECLINES REF TO TOBACCO CESS PRGM [facility] Nov 25, 2011 09:14 AM V1-PT DECLINES TOBACCO CESSATION MEDS [facility] Nov 25, 2011 09:14 AM V1-PT THINKING ABOUT QUIT TOBACCO USE [facility] May 06, 2011 01:02 PM CURRENT SMOKER [facility] May 06, 2011 01:02 PM V1-PT DECLINES TOBACCO CESSATION MEDS [facility] [place] [facility] May 06, 2011 01:02 PM V1-PT NOT INTERESTED IN QUIT TOBACCO USE [facility] [place] [facility] Sep 24, 2010 08:51 AM V1-PT DECLINES TOBACCO CESSATION MEDS [facility] [place] [facility] Sep 24, 2010 08:51 AM V1-PT THINKING ABOUT QUIT TOBACCO USE [facility] [place] [facility] Mar 22, 2010 07:58 AM CURRENT SMOKER 1/2 ppd [facility] [place] [facility] Feb 25, 2009 12:05 PM QUIT TOBACCO USE IN PAST YEAR [facility] [place] [facility] Aug 26, 2008 09:28 AM CURRENT SMOKER 1/2 ppd [facility] [place] [facility] Aug 26, 2008 09:28 AM V1-PT DECLINES REF TO TOBACCO CESS PRGM [facility] [place] [facility] Aug 26, 2008 09:28 AM V1-PT READY TO QUIT TOBACCO USE [facility] [place] [facility] Dec 19, 2007 10:08 AM V1-PT DECLINES REF TO TOBACCO CESS PRGM [facility] [place] [facility] Dec 19, 2007 10:08 AM V1-PT DECLINES TOBACCO CESSATION MEDS [facility] [place] [facility] Dec 19, 2007 10:08 AM V1-PT THINKING ABOUT QUIT TOBACCO USE [facility] [place] [facility] Sep 11, 2007 11:10 AM CURRENT SMOKER [facility] [place] [facility] Sep 11, 2007 11:10 AM V1-PT DECLINES REF TO TOBACCO CESS PRGM [facility] [place] [facility] Sep 11, 2007 11:10 AM V1-PT DECLINES TOBACCO CESSATION MEDS [facility] [place] [facility] Sep 11, 2007 11:10 AM V1-PT THINKING ABOUT QUIT TOBACCO USE [facility] [place] [facility] Feb 13, 2007 01:46 PM V1-PT DECLINES REF TO TOBACCO CESS PRGM [facility] [place] [facility] Feb 13, 2007 01:46 PM V1-PT DECLINES TOBACCO CESSATION MEDS [facility] [place] [facility] Feb 13, 2007 01:46 PM V1-PT THINKING ABOUT QUIT TOBACCO [facility] Oct 02, 2006 08:28 AM QUIT TOBACCO USE IN PAST YEAR 3 months ago [facility] Aug 19, 2005 08:33 AM QUIT TOBACCO USE IN PAST YEAR nonsmoker [facility] Sep 21, 2004 09:54 AM CURRENT SMOKER [facility] Sep 07, 2004 08:07 AM CURRENT SMOKER [facility] Sep 15, 2003 11:21 AM CURRENT SMOKER smokes one pk day [facility] Jul 23, 2003 01:57 PM CURRENT SMOKER [facility] Advance Directives: All historical and current Section Date Range: From patient's date of to the date document was created. This section includes ALL of a patient's completed or amended [place] Advance and Rescinded Directives. The entries below indicate that a directive exists for the patient, but an actual copy is not included with this document. The data comes from all [place] facilities. Date Advance Directives Provider Source Apr 10, 2023 ADVANCE DIRECTIVE ESSIE STARK [facility] Apr 19, 2007 ADVANCE DIRECTIVE VICTORIA JOHNSON [...] (Req'g Loc) Img Loc: NHM/CT Service: Unknown [facility] , (Case [id number] COMPLETE) CT THORAX W/O CONT (CT Detailed) CPT:98921 Reason for Study: smoker x 65 years Clinical History: Report Status: Verified Date Reported: FEB 20, 2024 Date Verified: FEB 20, 2024 Social Service Liaison E-Sig: Report: CT THORAX W/O CONT HISTORY: smoker x 65 years COMPARISON: April 19, 2006 TECHNIQUE: Helical CT of the chest, with multiplanar reformats including maximum intensity projection (MIP) reconstructions, was performed at the local [place] facility. 1019 images were received by the [place] National Teleradiology Program (NTP) for interpretation. RADIATION [...] as above. READING PHYSICIAN: Ck Jean M.D. -[id number] 02/20/2024 12:57 PDT [facility] National Teleradiology Program [phone] (For Medical Practitioner Use Only) Attention Patients / Veterans: If you have questions or concerns about these test results, please contact your ordering provider or primary care team. Primary Diagnostic Code: SIGNIFICANT ABNORMALITY, ATTN NEEDED Primary Interpreting Staff: RADIOLOGY,OUTSIDE SERVICE, Staff Physician / RADIOLOGY,OUTSIDE SERVICE [facility] Encounter Notes: All associated encounter notes This section contains the clinical notes associated to the Encounter. Date/Time Encounter Note(s) Provider Source Feb 05, 2024 12:00 AM NONVA NOTE: LOCAL TITLE: NON-[facility] STANDARD TITLE: NONVA NOTE DATE OF NOTE: FEB 05, 2024 ENTRY DATE: MAR 18, 2024@06:20:52 AUTHOR: ESSIE STARK EXP COSIGNER: URGENCY: STATUS: COMPLETED VistA Imaging - Scanned Document SCANNED DOCUMENT SIGNATURE NOT REQUIRED Electronically Filed: 03/18/2024 by: ESSIE TAN [facility]
--- OUTSIDE RECORDS SUMMARY | 2024-08-16 09:33 | XMS_ITS ---
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 Name Role Phone TRACY VILLANUEVA Primary Care [...] PHI MEDEX BRONZ E December 19, 2013 [phone] GUSTAVO ARAMBULA SR PATIENT [employer] MEDICARE SUPPLEMEN PHI MEDIC ARE SUPPL EMENT Jul 21, 2007 NONE [id number] Edgar ARAMBULA PATIENT [place] MED[place] SUPPLEMEN PHI MEDEX BRONZ E December 19, 2013 [id number] GUSTAVO ARAMBULA SR PATIENT [place] MEDICARE SUPPLEMEN PHI MEDEX BRONZ E December 19, 2013 [id number] Edgar ARAMBULA PATIENT MEDICARE (WNR) MEDICARE () PART A Oct 19, 2004 PART A [id number] [id number] Edgar ARAMBULAN PATIENT MEDICARE (WNR) MEDICARE () PART B Oct 19, 2004 PART B [id number] Edgar ARAMBULA [place] PATIENT MEDICARE (WNR) MEDICARE () PART A Oct 19, 2004 PART A [id number] Edgar ARAMBULAN PATIENT MEDICARE (WNR) MEDICARE () PART B Oct 19, 2004 PART B [id number] [id number] Edgar ARAMBULAN PATIENT MEDICARE (WNR) MEDICARE () PART A Oct 19, 2004 PART A [id number] [id number] Edgar ARAMBULA [place] PATIENT MEDICARE (WNR) MEDICARE () PART B Oct 19, 2004 PART B [id number] Edgar ARAMBULAN PATIENT MEDICARE (WNR) MEDICARE () PART A Oct 19, 2004 PART A [id number] [phone] Edgar ARAMBULA PATIENT MEDICARE (WNR) MEDICARE () PART B Oct 19, 2004 PART B [id number] Edgar ARAMBULAN PATIENT MEDICARE (WNR) MEDICARE () PART A Oct 19, 2004 PART A [id number] Edgar ARAMBULAN PATIENT MEDICARE (WNR) MEDICARE () PART B Oct 19, 2004 PART B [id number] Edgar ARAMBULAN PATIENT Selected Encounter This section includes the information on record at [place] for the Encounter. Date/Time Encounter Type Encounter Description Reason Pro vider Source Apr 12, 2024 10:28 AM Outpatient Encounter PRIMARY CARE/MEDICINE IHE Encounter [...] 20 appointments. The data comes from all [place] treatment facilities. Appointment Date/Time Appointment Type Appointme nt Facility Name Apr 26, 2024 11:00 AM [facility]ORY [facility] [place] [facility] Apr 30, 2024 08:30 AM AMBULATORY - PSYCHIATRY [facility] [place] [facility] May 01, 2024 11:00 AM AMBULATORY - NONE [facility] [place] [facility] May 14, 2024 11:30 AM [facility] May 31, 2024 11:00 AM AMBULATORY - REHAB MEDICIN E [facility] [place] [facility] May 31, 2024 12:00 PM AMBULATORY - MEDICINE [facility] [place] [facility] Jun 10, 2024 10:00 AM AMBULATORY - MEDICINE [facility] Jun 11, 2024 09:30 AM AMBULATORY - PSYCHIATRY [facility] [place] [facility] Jun 13, 2024 10:00 AM AMBULATORY - MEDICINE [facility] [place] [facility] Jun 19, 2024 11:00 AM AMBULATORY - NONE [facility] [place] [facility] Jun 21, 2024 09:00 AM AMBULATORY [facility] MEDICINE [facility] [place] [facility] Jun 21, 2024 09:15 AM AMBULATORY - MEDICINE [facility] [place] [facility] Jun 21, 2024 09:30 AM AMBULATORY [facility] MEDICINE [facility] [place] [facility] Jun 26, 2024 08:00 AM AMBULATORY - MEDICINE [facility] [place] [facility] Jul 05, 2024 09:00 AM AMBULATORY - REHAB MEDICIN E [facility] [place] [facility] Jul 30, 2024 09:30 AM AMBULATORY - PSYCHIATRY [facility] [place] [facility] Aug 05, 2024 09:45 AM AMBULATORY - MEDICINE [facility] [place] [facility] Sep 06, 2024 11:00 AM AMBULATORY [facility] MEDICINE [facility] [place] [facility] Sep 26, 2024 12:30 PM [facility] Oct 08, 2024 09:30 AM AMBULATORY - PSYCHIATRY [facility] Active, Pending, and Scheduled Orders This section includes a listing of several types of active, pending, and scheduled orders, including clinic medications orders, diagnostic test orders, procedure orders and consult orders; where the start date of the order is 45 days before the date of the Encounter or 45 days after the date of theEncounter. The data comes from all [place] treatment facilities. Test Date/Time Test Type Test Details Facility Name May 15, 2024 08:08 AM Consult Order COMMUNITY CARE-PULMONARY Cons [employer] Custodian[employer] [facility] Lab Results: +/- 30 days of the encounter This section includes the Chemistry and Hematology Lab Results on record with [place] for the patient. Radiology Reports and Pathology Reports are provided separately, in subsequent sections. Lab Results This section contains the Chemistry/Hematology Results that were resulted 30 days before or 30 daysafter the date of the Encounter. Date/Time Source Result Type Result - Unit Interpretation Reference Range Comment Apr 25, 2024 07:51 AM [facility] HEMOGLOBIN A1C PANEL Specimen Type: BLOOD Comment: [...] Feb 13, 2024 02:36 PM Reporting Lab: [address] [address] Performing Lab: [address] [address] HEMOGLOBIN A1C 6.8 H 4.0-5.6 Apr 25, 2024 07:51 AM [facility] MICROALBUMIN CREATININE RATIO PANEL Spe cimen Type: URINE No comment entered. Ordering Provider: TRACY VILLANUEVA Report Released Date/Time: Feb 13, 2024 02:36 PM Reporting Lab: [address] [address] Performing Lab: [address] [place] [address] MICROALBUMIN/C REATININE RATIO 16.0 mg/g 0-29.9 MICROALBUMIN,Q UANTITATIVE 2.3 mg/dL RR UNAVAIL CREATININE URINE 143.92 mg/dL Apr 25, 2024 07:51 AM [facility] BASIC METABOLIC PANEL (non-fasting) Spe cimen Type: SERUM No comment entered. Ordering Provider: TRACY VILLANUEVA Report Released Date/Time: Feb 13, 2024 02:36 PM Reporting Lab: [address] [address] Performing Lab: [address] [address] UREA NITROGEN 15 mg/dL 7-25 GLUCOSE 173 mg/dL H 65-100 SODIUM 133 mmol/L L 135-145 POTASSIUM 4.2 mmol/L 3.5-5.0 CHLORIDE 100 mmol/L 100-110 CO2 22 meq/L 20-30 CREATININE, Serum 0.74 mg/dL 0.50-1.40 eGFR(CKD-EPI 2020) 89 mL/min >60 Apr 15, 2024 08:39 AM [facility] HEMOGLOBIN A1C PANEL Specimen Type: BLOOD Comment: [...] Apr 09, 2024 09:19 AM Reporting Lab: [address] [address] Performing Lab: [address] [address] HEMOGLOBIN A1C 6.3 H 4.0-5.6 Apr 15, 2024 08:39 AM [facility] LIPID PANEL FASTING Specimen Type: SERUM No comment entered. Ordering Provider: TRACY VILLANUEVA Report Released Date/Time: Apr 09, 2024 09:19 AM Reporting Lab: [address] [address] Performing Lab: [facility] [address] [facility] [address] CHOLESTEROL 137 mg/dL TRIGLYCERIDE 63 mg/dL 0-150 LDL calculated 63 mg/dL 0-129 CHOL/HDL 2.2 HDL CHOLESTEROL 61 mg/dL H 40-60 Apr 15, 2024 08:39 AM [place] BASIC METABOLIC PANEL (fasting) Specime n Type: SERUM No comment entered. Ordering Provider: TRACY VILLANUEVA Report Released Date/Time: Apr 09, 2024 09:19 AM Reporting Lab: [facility] [address] [address] Performing Lab: [address] [address] UREA NITROGEN 9 mg/dL 7-25 GLUCOSE 159 mg/dL H 65-100 SODIUM 116 mmol/L LL 135-145 POTASSIUM 3.4 mmol/L L 3.5-5.0 CHLORIDE 81 mmol/L L 100-110 CO2 23 meq/L 20-30 CREATININE, Serum 0.69 mg/dL 0.50-1.40 eGFR(CKD-EPI 2020) >90 mL/min >60 Apr 15, 2024 08:39 AM [place] MICROALBUMIN CREATININE RATIO PANEL Spe cimen Type: URINE No comment entered. Ordering Provider: TRACY VILLANUEVA Report Released Date/Time: Apr 09, 2024 09:19 AM Reporting Lab: [address] [address] Performing Lab: [facility] [address] [address] MICROALBUMIN/C REATININE RATIO 83.0 mg/g H 0-29.9 MICROALBUMIN,Q UANTITATIVE 16.8 mg/dL RR UNAVAIL CREATININE URINE 202.40 mg/dL Apr 15, 2024 08:39 AM [facility] LIVER FUNCTION Specimen Type: SERUM No comment entered. Ordering Provider: TRACY VILLANUEVA Report Released Date/Time: Apr 09, 2024 09:19 AM Reporting Lab: [facility] [address] [address] Performing Lab: [facility] [address] [address] PROTEIN,TOTAL 7.3 g/dL 6.0-8.3 ALBUMIN 4.5 g/dL 3.5-5.0 ALKALINE PHOSPHATASE 62 U/L 40-150 AST 35 U/L H 5-34 ALT 27 U/L BILIRUBIN, TOTAL 2.5 mg/dL H 0.2-1.2 BILIRUBIN, DIRECT 0.7 mg/dL H 0-0.5 Apr 15, 2024 08:39 AM [place] VITAMIN D (25-OH) Specimen Type: SERUM No comment entered. Ordering Provider: TRACY VILLANUEVA Report Released Date/Time: Apr 09, 2024 09:19 AM Reporting Lab: [address] [address] Performing Lab: [address] [address] VITAMIN D (25-OH) 49 ng/mL 20-50 Apr 15, 2024 08:39 AM [facility] CBC Specimen Type: BLOOD Comment: MCHC >36, SPECIMEN 1+ ICTERIC, QNS FOR PLASMA REPLACEMENT INTERPRET RESULTS WITH CAUTION, SUGGEST PROPER REDRAW SHORT DRAW Ordering Provider: TRACY VILLANUEVA Report Released Date/Time: Apr 09, 2024 09:19 AM Reporting Lab: [address] [address] Performing Lab: [address] [address] WBC 8.70 10*3/uL 4.50-11.00 RBC 4.75 10*6/uL [...] and tobacco- related health factors from the [place] facility where the Encounter took place. Current Smoking Status This section includes the most current smoking, or tobacco-related health factor, from the [place] facility where the Encounter took place. Date/Time Current Smoking Status Comment [facility] ity December 25, 2023 09:05 AM VA-TOBACCO NEVER USED [place] [facility] [place] [facility] Tobacco Use History This section includes a history of the smoking, or tobacco-related health factors, that were collected on or before the date of the Encounter. The data comes from the [place] facility where the Encounter took place. Date/Time Smoking Status/Tobac co Use Comment Facility Dec 13, 2022 03:00 PM VA-TOBACCO DOESNT USE WI 30 MIN WAKEUP [facility] [place] [facility] Dec 13, 2022 03:00 PM VA-TOBACCO USE 30 YEARS OR MORE [facility] [place] [facility] Dec 13, 2022 03:00 PM VA-TOBACCO USE ADVICE [facility] [place] [facility] Dec 13, 2022 03:00 PM VA-TOBACCO USE DIRECTOR OF APPLICATION DEVELOPMENT NO [facility] [place] [facility] Dec 13, 2022 03:00 PM VA-TOBACCO USE MED NO [facility] [place] [facility] Dec 13, 2022 03:00 PM VA-TOBACCO USER EVERY DAY [facility] [place] [facility] Nov 17, 2021 10:00 AM VA-TOBACCO USE 30 YEARS OR MORE [facility] [place] [facility] Nov 17, 2021 10:00 AM VA-TOBACCO USE ADVICE [facility] [place] [facility] Nov 17, 2021 10:00 AM VA-TOBACCO USE DIRECTOR OF APPLICATION DEVELOPMENT NO [facility] [place] [facility] Nov 17, 2021 10:00 AM VA-TOBACCO USE MED NO [facility] [place] [facility] Nov 17, 2021 10:00 AM VA-TOBACCO USE WI 30 MIN OF WAKEUP [facility] [place] [facility] Nov 17, 2021 10:00 AM VA-TOBACCO USER EVERY DAY [facility] [place] [facility] Oct 14, 2013 12:55 PM V1-PT NOT INTERESTED IN QUIT TOBACCO USE [facility] [place] [facility] May 07, 2013 05:04 PM CURRENT SMOKER trying to stop [facility] May 07, 2013 05:04 PM V1-PT DECLINES REF TO TOBACCO CESS PRGM [facility] May 07, 2013 05:04 PM V1-PT DECLINES TOBACCO CESSATION MEDS [facility] May 07, 2013 05:04 PM V1-PT READY TO QUIT TOBACCO USE [facility] Dec 03, 2012 08:23 AM V1-PT DECLINES REF TO TOBACCO CESS PRGM [facility] Dec 03, 2012 08:23 AM V1-PT DECLINES TOBACCO CESSATION MEDS [facility] Dec 03, 2012 08:23 AM V1-PT THINKING ABOUT QUIT TOBACCO USE [facility] Jun 05, 2012 08:45 AM CURRENT SMOKER 1/2ppd [facility] Jun 05, 2012 08:45 AM V1-PT DECLINES REF TO TOBACCO CESS PRGM [facility] Jun 05, 2012 08:45 AM V1-PT THINKING ABOUT QUIT TOBACCO USE [facility] Jun 05, 2012 08:45 AM V1-TOBACCO CESS MEDS NOT PRESCRIBED Vet wants to talk to his provider-He is nervous about taking meds to quit- but he is interested in quitting [facility] Nov 25, 2011 09:14 AM V1-PT DECLINES REF TO TOBACCO CESS PRGM [facility] Nov 25, 2011 09:14 AM V1-PT DECLINES TOBACCO CESSATION MEDS [facility] Nov 25, 2011 09:14 AM V1-PT THINKING ABOUT QUIT TOBACCO [facility] May 06, 2011 01:02 PM CURRENT SMOKER [facility] May 06, 2011 01:02 PM V1-PT DECLINES TOBACCO CESSATION MEDS [facility] May 06, 2011 01:02 PM V1-PT NOT INTERESTED IN QUIT TOBACCO USE [facility] Sep 24, 2010 08:51 AM V1-PT DECLINES TOBACCO CESSATION MEDS [facility] [place] [facility] Sep 24, 2010 08:51 AM V1-PT THINKING ABOUT QUIT TOBACCO USE [facility] [place] [facility] Mar 22, 2010 07:58 AM CURRENT SMOKER 1/2 ppd [facility] [place] [facility] Feb 25, 2009 12:05 PM QUIT TOBACCO USE IN PAST YEAR [facility] [place] [facility] Aug 26, 2008 09:28 AM CURRENT SMOKER 1/2 ppd [facility] [place] [facility] Aug 26, 2008 09:28 AM V1-PT DECLINES REF TO TOBACCO CESS PRGM [facility] [place] [facility] Aug 26, 2008 09:28 AM V1-PT READY TO QUIT TOBACCO USE [facility] [place] [facility] Dec 19, 2007 10:08 AM V1-PT DECLINES REF TO TOBACCO CESS PRGM [place] [facility] [place] [facility] Dec 19, 2007 10:08 AM V1-PT DECLINES TOBACCO CESSATION MEDS [facility] [place] [facility] Dec 19, 2007 10:08 AM V1-PT THINKING ABOUT QUIT TOBACCO USE [facility] [place] [facility] Sep 11, 2007 11:10 AM CURRENT SMOKER [facility] [place] [facility] Sep 11, 2007 11:10 AM V1-PT DECLINES REF TO TOBACCO CESS PRGM [place] [facility] [place] [facility] Sep 11, 2007 11:10 AM V1-PT DECLINES TOBACCO CESSATION MEDS [facility] [place] [facility] Sep 11, 2007 11:10 AM V1-PT THINKING ABOUT QUIT TOBACCO USE [facility] [place] [facility] Feb 13, 2007 01:46 PM V1-PT DECLINES REF TO TOBACCO CESS PRGM [place] [facility] [place] [facility] Feb 13, 2007 01:46 PM V1-PT DECLINES TOBACCO CESSATION MEDS [facility] [place] [facility] Feb 13, 2007 01:46 PM V1-PT THINKING ABOUT QUIT TOBACCO USE [facility] [place] [facility] Oct 02, 2006 08:28 AM QUIT TOBACCO USE IN PAST YEAR 3 months ago [facility] [place] [facility] Aug 19, 2005 08:33 AM QUIT TOBACCO USE IN PAST YEAR nonsmoker [facility] Sep 21, 2004 09:54 AM CURRENT SMOKER [facility] Sep 07, 2004 08:07 AM CURRENT SMOKER [facility] Sep 15, 2003 11:21 AM CURRENT SMOKER smokes one pk day [facility] Jul 23, 2003 01:57 PM CURRENT SMOKER [facility] Advance Directives: All historical and current Section Date Range: From patient's date of to the date document was created. This section includes ALL of a patient's completed or amended [place] Advance and Rescinded Directives. The entries below indicate that a directive exists for the patient, but an actual copy is not included with this document. The data comes from all [place] facilities. Date Advance Directives Provider Source Apr 10, 2023 ADVANCE DIRECTIVE GEORGEESSIE DOZIER [facility] Apr 19, 2007 ADVANCE DIRECTIVE VI[address]IA JOHNSON [facility] Encounter Notes: All associated encounter notes This section contains the clinical notes associated to the Encounter. Date/Time Encounter Note(s) Provider Source Apr 12, 2024 10:31 AM ADMINISTRATIVE NOT E: LOCAL TITLE: ADMINISTRATIVE NOTE STANDARD TITLE: ADMINISTRATIVE NOTE DATE OF NOTE: APR 12, 2024@10:31 ENTRY DATE: APR 12, 2024@10:31:28 AUTHOR: CEE LIVINGSTON EXP COSIGNER: URGENCY: STATUS: COMPLETED [employer] called to [ ] Schedule primary care appt [ ] Reschedule primary care appt. [X} Remind of upcoming primary care appt. SPOKE WITH: [X} Fasting blood work needed, and vet reminded. [ ] Non fasting blood work needed, and vet reminded. [ ] No labs needed. [ ] UNABLE TO REACH : [ ] Left voicemail. [ ] Unable to leave voicemail. [ ] No phone number available/no working phone number [X} Mailed Letter /es/ CEE SMITH Signed: 04/12/2024 10:34 CEE LIVINGST[facility] [place] Apr 12, 2024 10:28 AM LETTERS: LOCAL TITLE: PATIENT LETTER (B) STANDARD TITLE: LETTERS DATE OF NOTE: APR 12, 2024@10:28 ENTRY DATE: APR 12, 2024@10:29:18 AUTHOR: CEE LIV[place] EXP COSIGNER: URGENCY: STATUS: COMPLETED [facility] [address] [place] [id number] [phone] * GUSTAVO ARAMBULA [address] [place] [id number] Date: APR 12, 2024 re: This is a reminder of your upcoming PCP appt with TRACY VILLANUEVA Appointment Date: Mar@13:30pm Appointment Type: In-person visit (X)Fasting blood work Sincerely, [facility] [address] [place] [phone] * CEE LIVINGSTON [place]
--- OUTSIDE RECORDS SUMMARY | 2024-08-16 09:33 | XMS_ITS | Encounter Summary ---
Author Name [facility] [place] [facility] [facility] [place] Address [address] [place] [address] Care Team Providers Care Speaking Unit Assembler Name Role Phone TRACY VILLANUEVA Primary [...] PHI MEDEX BRONZ E December 19, 2013 [id number] [phone] GUSTAVO AARMBULA SR PATIENT [employer]UAL[employer] MEDICARE SUPPLEMEN PHI MEDIC ARE SUPPL EMENT Jul 21, 2007 NONE [id number] Edgar ARAMBULA PATIENT BCBS MD MEDICARE SUPPLEMEN PHI MEDEX BRONZ E December 19, 2013 [id number] [phone] GUSTAVO ARAMBULA SR PATIENT [place] OF [place] ([place] MEDICARE SUPPLEMEN PHI MEDEX BRONZ E December 19, 2013 [id number] Edgar ARAMBULA PATIENT MEDICARE (WNR) MEDICARE () PART A Oct 19, 2004 PART A [id number] [phone] Edgar ARAMBULAN PATIENT MEDICARE (WNR) MEDICARE () PART B Oct 19, 2004 PART B [id number] Edgar ARAMBULA [place] PATIENT MEDICARE (WNR) MEDICARE () PART A Oct 19, 2004 PART A [id number] Edgar ARAMBULAN PATIENT MEDICARE (WNR) MEDICARE () PART B Oct 19, 2004 PART B [id number] Egdar ARAMBULAN PATIENT MEDICARE (WNR) MEDICARE () PART A Oct 19, 2004 PART A [id number] Edgar ARAMBULA [place] PATIENT MEDICARE (WNR) MEDICARE () PART B Oct 19, 2004 PART B [id number] Edgar ARAMBULAN PATIENT MEDICARE (WNR) MEDICARE () PART A Oct 19, 2004 PART A [id number] Edgar ARAMBULA PATIENT MEDICARE (WNR) MEDICARE () PART B Oct 19, 2004 PART B [id number] Edgar ARAMBULAN PATIENT MEDICARE (WNR) MEDICARE () PART A Oct 19, 2004 PART A [id number] [phone] Edgar ARAMBULAN PATIENT MEDICARE (WNR) MEDICARE () PART B Oct 19, 2004 PART B [id number] Edgar ARAMBULAN PATIENT Selected Encounter This section includes the information on record at [place] for the Encounter. Date/Time Encounter Type Encounter Description Reason Pro vider Source Mar 25, 2024 08:41 AM Outpatient Encounter PRIMARY CARE/MEDICINE IHE Encounter [...] - PSYCHIATRY [facility] [place] [facility] Apr 08, 2024 09:30 AM AMBULATORY - MEDICINE [facility] [place] [facility] Apr 10, 2024 10:45 AM AMBULATORY - MEDICINE [facility] [place] [facility] Apr 26, 2024 11:00 AM AMBULATORY - MEDICINE [facility] [place] [facility] Apr 30, 2024 08:30 AM AMBULATORY - PSYCHIATRY [facility] [place] [facility] May 01, 2024 11:00 AM AMBULATORY - NONE [facility] [place] [facility] May 14, 2024 11:30 AM AMBULATORY - MEDICINE [facility] May 31, 2024 11:00 AM AMBULATORY - REHAB MEDICIN E [facility] [place] [facility] May 31, 2024 12:00 PM AMBULATORY - MEDICINE [facility] [place] [facility] Jun 10, 2024 10:00 AM AMBULATORY - MEDICINE [facility] Jun 11, 2024 09:30 AM AMBULATORY - PSYCHIATRY [facility] [place] [facility] Jun 13, 2024 10:00 AM AMBULATORY - MEDICINE [facility] [place] [facility] Jun 19, 2024 11:00 AM AMBULATORY - NONE [facility] [place] [facility] Jun 21, 2024 09:00 AM AMBULATORY - MEDICINE [facility] [place] [facility] Jun 21, 2024 09:15 AM AMBULATORY - MEDICINE [facility] [place] [facility] Jun 21, 2024 09:30 AM AMBULATORY - MEDICINE [facility] [place] [facility] Jun 26, 2024 08:00 AM AMBULATORY - MEDICINE [facility] [place] [facility] Jul 05, 2024 09:00 AM AMBULATORY - REHAB MEDICIN E [facility] [place] [facility] Jul 30, 2024 09:30 AM AMBULATORY - PSYCHIATRY [facility] Aug 05, 2024 09:45 AM AMBULATORY - MEDICINE [facility] Lab Results: +/- 30 days of the encounter This section includes the Chemistry and Hematology Lab Results on record with [place] for the patient. Radiology Reports and Pathology Reports are provided separately, in subsequent sections. Lab Results This section contains the Chemistry/Hematology Results that were resulted 30 days before or 30 daysafter the date of the Encounter. Date/Time Source Result Type Result - Unit Interpretation Reference Range Comment Apr 15, 2024 08:39 AM [facility] HEMOGLOBIN A1C PANEL Specimen Type: BLOOD Comment: [...] Apr 09, 2024 09:19 AM Reporting Lab: [facility] [address] [address] Performing Lab: [address] [address] HEMOGLOBIN A1C 6.3 H 4.0-5.6 Apr 15, 2024 08:39 AM [facility] LIPID PANEL FASTING Specimen Type: SERUM No comment entered. Ordering Provider: TRACY VILLANUEVA Report Released Date/Time: Apr 09, 2024 09:19 AM Reporting Lab: [address] [address] Performing Lab: [address] [address] CHOLESTEROL 137 mg/dL TRIGLYCERIDE 63 mg/dL 0-150 LDL calculated 63 mg/dL 0-129 CHOL/HDL 2.2 HDL CHOLESTEROL 61 mg/dL H 40-60 Apr 15, 2024 08:39 AM [facility] MICROALBUMIN CREATININE RATIO PANEL Spe cimen Type: URINE No comment entered. Ordering Provider: TRACY VILLANUEVA Report Released Date/Time: Apr 09, 2024 09:19 AM Reporting Lab: [address] [address] Performing Lab: [address] [address] MICROALBUMIN/C REATININE RATIO 83.0 mg/g H 0-29.9 MICROALBUMIN,Q UANTITATIVE 16.8 mg/dL RR UNAVAIL CREATININE URINE 202.40 mg/dL Apr 15, 2024 08:39 AM [facility] LIVER FUNCTION Specimen Type: SERUM No comment entered. Ordering Provider: TRACY VILLANUEVA Report Released Date/Time: Apr 09, 2024 09:19 AM Reporting Lab: [address] [address] Performing Lab: [address] [address] PROTEIN,TOTAL 7.3 g/dL 6.0-8.3 ALBUMIN 4.5 g/dL 3.5-5.0 ALKALINE PHOSPHATASE 62 U/L 40-150 AST 35 U/L H 5-34 ALT 27 U/L BILIRUBIN, TOTAL 2.5 mg/dL H 0.2-1.2 BILIRUBIN, DIRECT 0.7 mg/dL H 0-0.5 Apr 15, 2024 08:39 AM [facility] BASIC METABOLIC PANEL (fasting) Specime n Type: SERUM No comment entered. Ordering Provider: TRACY VILLANUEVA Report Released Date/Time: Apr 09, 2024 09:19 AM Reporting Lab: [address] [address] Performing Lab: [address] [address] UREA NITROGEN 9 mg/dL 7-25 GLUCOSE 159 mg/dL H 65-100 SODIUM 116 mmol/L LL 135-145 POTASSIUM 3.4 mmol/L L 3.5-5.0 CHLORIDE 81 mmol/L L 100-110 CO2 23 meq/L 20-30 CREATININE, Serum 0.69 mg/dL 0.50-1.40 eGFR(CKD-EPI 2020) >90 mL/min >60 Apr 15, 2024 08:39 AM [facility] VITAMIN D (25-OH) Specimen Type: SERUM No comment entered. Ordering Provider: TRACY VILLANUEVA Report Released Date/Time: Apr 09, 2024 09:19 AM Reporting Lab: [address] [address] Performing Lab: [address] [address] VITAMIN D (25-OH) 49 ng/mL 20-50 Apr 15, 2024 08:39 AM [facility] CBC Specimen Type: BLOOD Comment: MCHC >36, SPECIMEN 1+ ICTERIC, QNS FOR PLASMA REPLACEMENT INTERPRET RESULTS WITH CAUTION, SUGGEST PROPER REDRAW SHORT DRAW Ordering Provider: TRACY VILLANUEVA Report Released Date/Time: Apr 09, 2024 09:19 AM Reporting Lab: [address] [address] Performing Lab: [address] [address] WBC 8.70 10*3/uL 4.50-11.00 RBC 4.75 10*6/uL [...] and tobacco- related health factors from the [place] facility where the Encounter took place. Current Smoking Status This section includes the most current smoking, or tobacco-related health factor, from the [place] facility where the Encounter took place. Date/Time Current Smoking Status Comment [facility] December 25, 2023 09:05 AM VA-TOBACCO NEVER USED [facility] Tobacco Use History This section includes a history of the smoking, or tobacco-related health factors, that were collected on or before the date of the Encounter. The data comes from the [place] facility where the Encounter took place. 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 [facility] [place] [facility] Dec 13, 2022 03:00 PM VA-TOBACCO USE MED NO [facility] [place] [facility] Dec 13, 2022 03:00 PM VA-TOBACCO USER EVERY DAY [place] [facility] [place] [facility] Nov 17, 2021 10:00 AM VA-TOBACCO USE 30 YEARS OR MORE [place] [facility] [place] [facility] Nov 17, 2021 10:00 AM VA-TOBACCO USE ADVICE [facility] [place] [facility] Nov 17, 2021 10:00 AM 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 [facility] [place] [facility] Nov 17, 2021 10:00 AM VA-TOBACCO USE MED NO [facility] [place] [facility] Nov 17, 2021 10:00 AM VA-TOBACCO USE WI 30 MIN OF WAKEUP [place] [facility] [place] [facility] Nov 17, 2021 10:00 AM VA-TOBACCO USER EVERY DAY [place] [facility] [place] [facility] Oct 14, 2013 12:55 PM V1-PT NOT INTERESTED IN QUIT TOBACCO USE [facility] [place] [facility] May 07, 2013 05:04 PM CURRENT SMOKER trying to stop [facility] [place] [facility] May 07, 2013 05:04 PM V1-PT DECLINES REF TO TOBACCO CESS PRGM [facility] [place] [facility] May 07, 2013 05:04 PM V1-PT DECLINES TOBACCO CESSATION MEDS [facility] [place] [facility] May 07, 2013 05:04 PM V1-PT READY TO QUIT TOBACCO USE [facility] [place] [facility] Dec 03, 2012 08:23 AM V1-PT DECLINES REF TO TOBACCO CESS PRGM [facility] [place] [facility] Dec 03, 2012 08:23 AM V1-PT DECLINES TOBACCO CESSATION MEDS [facility] [place] [facility] Dec 03, 2012 08:23 AM V1-PT THINKING ABOUT QUIT TOBACCO USE [facility] [place] [facility] Jun 05, 2012 08:45 AM CURRENT SMOKER 1/2ppd [facility] [place] [facility] Jun 05, 2012 08:45 AM V1-PT DECLINES REF TO TOBACCO CESS PRGM [facility] [place] [facility] Jun 05, 2012 08:45 AM V1-PT THINKING ABOUT QUIT TOBACCO USE [facility] [place] [facility] Jun 05, 2012 08:45 AM V1-TOBACCO CESS MEDS NOT PRESCRIBED Vet wants to talk to his provider-He is nervous about taking meds to quit- but he is interested in quitting [facility] [place] [facility] Nov 25, 2011 09:14 AM V1-PT DECLINES REF TO TOBACCO CESS [facility] Nov 25, 2011 09:14 AM V1-PT DECLINES TOBACCO CESSATION MEDS [facility] [place] [facility] Nov 25, 2011 09:14 AM V1-PT THINKING ABOUT QUIT TOBACCO USE [facility] [place] [facility] May 06, 2011 01:02 PM CURRENT SMOKER [facility] [place] [facility] May 06, 2011 01:02 PM V1-PT DECLINES TOBACCO CESSATION MEDS [facility] May 06, 2011 01:02 PM V1-PT NOT INTERESTED IN QUIT TOBACCO USE [facility] [place] [facility] Sep 24, 2010 08:51 AM V1-PT DECLINES TOBACCO CESSATION MEDS [facility] [place] [facility] Sep 24, 2010 08:51 AM V1-PT THINKING ABOUT QUIT [facility]ACCO [facility] [place] [facility] Mar 22, 2010 07:58 AM CURRENT SMOKER 1/2 ppd [facility] [place] [facility] Feb 25, 2009 12:05 PM QUIT TOBACCO USE IN PAST YEAR [facility] [place] [facility] Aug 26, 2008 09:28 AM CURRENT SMOKER 1/2 ppd [facility] [place] [facility] Aug 26, 2008 09:28 AM V1-PT DECLINES REF TO TOBACCO CESS PRGM [facility] [place] [facility] Aug 26, 2008 09:28 AM V1-PT READY TO QUIT TOBACCO USE [facility] [place] [facility] Dec 19, 2007 10:08 AM V1-PT DECLINES REF TO TOBACCO CESS PRGM [facility] [place] [facility] Dec 19, 2007 10:08 AM V1-PT DECLINES TOBACCO CESSATION MEDS [facility] [place] [facility] Dec 19, 2007 10:08 AM V1-PT THINKING ABOUT QUIT TOBACCO USE [facility] [place] [facility] Sep 11, 2007 11:10 AM CURRENT SMOKER [facility] [place] [facility] Sep 11, 2007 11:10 AM V1-PT DECLINES REF TO TOBACCO CESS PRGM [facility] [place] [facility] Sep 11, 2007 11:10 AM V1-PT DECLINES TOBACCO CESSATION MEDS [facility] [place] [facility] Sep 11, 2007 11:10 AM V1-PT THINKING ABOUT QUIT TOBACCO USE [facility] [place] [facility] Feb 13, 2007 01:46 PM V1-PT DECLINES REF TO TOBACCO CESS PRGM [facility] [place] [facility] Feb 13, 2007 01:46 PM V1-PT DECLINES TOBACCO CESSATION MEDS [facility] [place] [facility] Feb 13, 2007 01:46 PM V1-PT THINKING ABOUT QUIT TOBACCO USE [facility] [place] [facility] Oct 02, 2006 08:28 AM QUIT TOBACCO USE IN PAST YEAR 3 months ago [facility] [place] [facility] Aug 19, 2005 08:33 AM QUIT TOBACCO USE IN PAST YEAR nonsmoker [facility] [place] [facility] Sep 21, 2004 09:54 AM CURRENT SMOKER [facility] [place] [facility] Sep 07, 2004 08:07 AM CURRENT SMOKER [facility] [place] [facility] Sep 15, 2003 11:21 AM CURRENT SMOKER smokes one pk day [facility] [place] [facility] Jul 23, 2003 01:57 PM CURRENT SMOKER [facility] Advance Directives: All historical and current [...] Apr 10, 2023 ADVANCE DIRECTIVE CARLOSESSIE STUBBS [place] [facility] Apr 19, 2007 ADVANCE DIRECTIVE ELIZABETHVICTORIA AGUIRRE [facility] Encounter Notes: All associated encounter notes This section contains the clinical notes associated to the Encounter. Date/Time Encounter Note(s) Provider Source Mar 25, 2024 08:58 AM ADDENDUM: LOCAL TITLE: Addendum STANDARD TITLE: ADDENDUM DATE OF NOTE: MAR 25, 2024@08:58:37 ENTRY DATE: MAR 25, 2024@08:58:38 AUTHOR: ZACHARY ABBOTT COSIGNER: URGENCY: STATUS: COMPLETED Adding PCP to review and advise. /es/ ZACHARY ABBOTT RN REGISTERED NURSE Signed: 03/25/2024 08:58 Receipt Acknowledged By: 03/25/2024 10:35 /es/ GUSTAVO MCKEON PA-C STAFF PHYSICIAN SUPER[employer] for TRACY VILLANUEVA --- Original Document --- 03/25/24 WALK-IN NOTE PRIMARY CARE (T): <====Click to Start [facility] presents to the Primary Care clinic with the following request: [ X ]Medication Renewal/Refill [ ]Consultation with Team RN [ ]Symptoms [ ]Other [facility] states they are: [ ]Waiting [ X ]Not Waiting No Walk in visit scheduled with PACT Nurse [ X ] At this encounter the 's demographics were verified. [ X ] At this encounter [facility] Insurance information was verified. [ X ] At this encounter the below scheduled visits for the were discussed and appointment reminder card was offered. Future appointments: 04/04/2024 11:00 CWM/NO/VVC/MHC/DANIELS1 04/08/2024 09:30 CWM/NO/VVC/PAIN MD CLINIC 04/10/2024 10:45 COM CARE-GI GENERAL 04/26/2024 11:00 CWM/SO/PHARM/PACT 2 05/01/2024 11:00 CWM/SO/NUTRITION1 Medication refill for : METFORMIN (ONCE DAILY) TAB,SA 500MG /es/ SHANEKA SMITH Signed: 03/25/2024 08:42 Receipt Acknowledged By: * AWAITING SIGNATURE * MARCUS DOZIER 03/25/2024 08:59 /es/ ZACHARY ABBOTT, RN REGISTERED NURSE ZACHARY ABBOTT Mar 25, 2024 08:41 AM PRIMARY CARE NOTE: LOCAL TITLE: WALK-IN NOTE PRIMARY CARE (T) STANDARD TITLE: PRIMARY CARE NOTE DATE OF NOTE: MAR 25, 2024@08:41 ENTRY DATE: MAR 25, 2024@08:41:44 AUTHOR: SHANEKA ANGEL EXP COSIGNER: URGENCY: STATUS: COMPLETED WALK-IN NOTE PRIMARY CARE (T) Has ADDENDA <====Click to Start [facility] presents to the Primary Care clinic with the following request: [ X ]Medication Renewal/Refill [ ]Consultation with Team RN [ ]Symptoms [ ]Other [facility] states they are: [ ]Waiting [ X [...] COM CARE-GI GENERAL 04/26/2024 11:00 CWM/SO/PHARM/PACT 2 05/01/2024 11:00 CWM/SO/NUTRITION1 Medication refill for : METFORMIN (ONCE DAILY) TAB,SA 500MG /es/ SHANEKA ANGEL AMSA Signed: 03/25/2024 08:42 Receipt Acknowledged By: 03/26/2024 08:50 /es/ MARCUS DOZIER LPN LPN 03/25/2024 08:59 /es/ ZACHARY ABBOTT RN REGISTERED NURSE 03/25/2024 ADDENDUM STATUS: COMPLETED Adding PCP to review and advise. /es/ ZACHARY ABBOTT RN REGISTERED NURSE Signed: 03/25/2024 08:58 Receipt Acknowledged By: 03/25/2024 10:35 /es/ GUSTAVO MCKEON PA-C STAFF PHYSICIAN [employer] for SHANEKA KAYE
--- OUTSIDE RECORDS SUMMARY | 2024-08-16 09:33 | XMS_ITS | Encounter Summary ---
Author Name [facility] [place] [facility] [place] [facility] [place] [facility] [place] Address [address] [place] [address] Care Team Providers Care Pathology Tech Name Role Phone TRACY VILLANUEVA Primary Care [...] PHI MEDEX BRONZ E December 19, 2013 [id number] [phone] GUSTAVO GUZMAN SR PATIENT [employer] MEDICARE SUPPLEMEN PHI MEDIC ARE SUPPL EMENT Jul 21, 2007 NONE [id number] Edgar GUZMAN PATIENT [place] SUPPLEMEN PHI MEDEX BRONZ E December 19, 2013 [id number] GUSTAVO GUZMAN SR PATIENT [place] MEDICARE SUPPLEMEN PHI MEDEX BRONZ E December 19, 2013 [id number] Edgar GUZMAN PATIENT MEDICARE (WNR) MEDICARE () PART A Oct 19, 2004 PART A [id number] [phone] Edgar GUZMAN PATIENT MEDICARE (WNR) MEDICARE (M) PART B Oct 19, 2004 PART B [id number] Edgar GUZMANN PATIENT MEDICARE (WNR) MEDICARE () PART A Oct 19, 2004 PART A [id number] Edgar GUZMANN PATIENT MEDICARE (WNR) MEDICARE () PART B Oct 19, 2004 PART B [id number] Edgar GUZMANN PATIENT MEDICARE (WNR) MEDICARE () PART A Oct 19, 2004 PART A [id number] [phone] Edgar GUZMANN PATIENT MEDICARE (WNR) MEDICARE () PART B Oct 19, 2004 PART B [id number] [phone] Edgar GUZMANN PATIENT MEDICARE (WNR) MEDICARE () PART A Oct 19, 2004 PART A [id number] Edgar GUZMAN PATIENT MEDICARE (WNR) MEDICARE () PART B Oct 19, 2004 PART B [id number] [phone] Edgar GUZMANN PATIENT MEDICARE (WNR) MEDICARE () PART A Oct 19, 2004 PART A [id number] Edgar GUZMANN PATIENT MEDICARE (WNR) MEDICARE () PART B Oct 19, 2004 PART B [id number] [phone] Edgar GUZMAN PATIENT Selected Encounter This section includes the information on record at [place] for the Encounter. Date/Time Encounter Type Encounter Description Reason Pro vider Source Apr 16, 2024 09:15 AM Outpatient Encounter TELEPHONE TRIAGE IHE Encounter Template Text not used by [...] 20 appointments. The data comes from all [place] treatment facilities. Appointment Date/Time Appointment Type Appointme nt Facility Name Apr 26, 2024 11:00 AM AMBULATORY - MEDICINE [facility] [place] [facility] Apr 30, 2024 08:30 AM AMBULATORY - PSYCHIATRY [facility] [place] [facility] May 01, 2024 11:00 AM AMBULATORY - NONE [facility] [place] [facility] May 14, 2024 11:30 AM AM[facility]ULATORY [facility] MEDICINE [facility] May 31, 2024 11:00 AM AMBULATORY - REHAB MEDICIN E [facility] [place] [facility] May 31, 2024 12:00 PM AMBULATORY - MEDICINE [facility] [place] [facility] Jun 10, 2024 10:00 AM AM[facility]ULATORY - MEDICINE [facility] Jun 11, 2024 09:30 AM AMBULATORY - PSYCHIATRY [facility] [place] [facility] Jun 13, 2024 10:00 AM AMBULATORY - MEDICINE [facility] [place] [facility] Jun 19, 2024 11:00 AM AMBULATORY - NONE [facility] [place] [facility] Jun 21, 2024 09:00 AM AMBULATORY - MEDICINE [facility] [place] [facility] Jun 21, 2024 09:15 AM AMBULATORY - MEDICINE [facility] [place] [facility] Jun 21, 2024 09:30 AM AMBULATORY - MEDICINE [facility] [place] [facility] Jun 26, 2024 08:00 AM AMBULATORY - MEDICINE [facility] [place] [facility] Jul 05, 2024 09:00 AM AMBULATORY - REHAB MEDICIN E [facility] [place] [facility] Jul 30, 2024 09:30 AM AMBULATORY - PSYCHIATRY [facility] [place] [facility] Aug 05, 2024 09:45 AM AMBULATORY - MEDICINE [facility] [place] [facility] Sep 06, 2024 11:00 AM AMBULATORY - MEDICINE [facility] [place] [facility] Sep 26, 2024 12:30 PM [facility] Oct 08, 2024 09:30 AM AMBULATORY - PSYCHIATRY [facility] Active, Pending, and Scheduled Orders This section includes a listing of several types of active, pending, and scheduled orders, including clinic medications orders, diagnostic test orders, procedure orders and consult orders; where the start date of the order is 45 days before the date of the Encounter or 45 days after the date of theEncounter. The data comes from all [place] treatment facilities. Test Date/Time Test Type Test Details Facility Name May 15, 2024 08:08 AM Consult Order [facility] Cons Shock Absorption Floor Layer's Choice [place] Lab Results: +/- 30 days of the encounter This section includes the Chemistry and Hematology Lab Results on record with [place] for the patient. Radiology Reports and Pathology Reports are provided separately, in subsequent sections. Lab Results This section contains the Chemistry/Hematology Results that were resulted 30 days before or 30 daysafter the date of the Encounter. Date/Time Source Result Type Result - Unit Interpretation Reference Range Comment Apr 25, 2024 07:51 AM [place] HEMOGLOBIN A1C PANEL Specimen Type: BLOOD Comment: [...] Feb 13, 2024 02:36 PM Reporting Lab: [facility] [address] [facility] [address] Performing Lab: [facility] [address] [address] HEMOGLOBIN A1C 6.8 H 4.0-5.6 Apr 25, 2024 07:51 AM [place] MICROALBUMIN CREATININE RATIO PANEL Spe cimen Type: URINE No comment entered. Ordering Provider: TRACY VILLANUEVA Report Released Date/Time: Feb 13, 2024 02:36 PM Reporting Lab: [facility] [address] [address] Performing Lab: [address] [place] [address] MICROALBUMIN/C REATININE RATIO 16.0 mg/g 0-29.9 MICROALBUMIN,Q UANTITATIVE 2.3 mg/dL RR UNAVAIL CREATININE URINE 143.92 mg/dL Apr 25, 2024 07:51 AM [place] BASIC METABOLIC PANEL (non-fasting) Spe cimen Type: SERUM No comment entered. Ordering Provider: TRACY VILLANUEVA Report Released Date/Time: Feb 13, 2024 02:36 PM Reporting Lab: [address] [address] Performing Lab: [address] [address] UREA NITROGEN 15 mg/dL 7-25 GLUCOSE 173 mg/dL H 65-100 SODIUM 133 mmol/L L 135-145 POTASSIUM 4.2 mmol/L 3.5-5.0 CHLORIDE 100 mmol/L 100-110 CO2 22 meq/L 20-30 CREATININE, Serum 0.74 mg/dL 0.50-1.40 eGFR(CKD-EPI 2020) 89 mL/min >60 Apr 15, 2024 08:39 AM [place] HEMOGLOBIN A1C PANEL Specimen Type: BLOOD Comment: [...] Apr 09, 2024 09:19 AM Reporting Lab: [address] [address] Performing Lab: [address] [address] HEMOGLOBIN A1C 6.3 H 4.0-5.6 Apr 15, 2024 08:39 AM [place] LIPID PANEL FASTING Specimen Type: SERUM No comment entered. Ordering Provider: TRACY VILLANUEVA Report Released Date/Time: Apr 09, 2024 09:19 AM Reporting Lab: [address] [address] Performing Lab: [facility] [address] [facility] [address] CHOLESTEROL 137 mg/dL TRIGLYCERIDE 63 mg/dL 0-150 LDL calculated 63 mg/dL 0-129 CHOL/HDL 2.2 HDL CHOLESTEROL 61 mg/dL H 40-60 Apr 15, 2024 08:39 AM [place] BASIC METABOLIC PANEL (fasting) Specime n Type: SERUM No comment entered. Ordering Provider: TRACY VILLANUEVA Report Released Date/Time: Apr 09, 2024 09:19 AM Reporting Lab: [facility] [address] [facility] [facility] [address] Performing [facility]: [facility] [address] [address] UREA NITROGEN 9 mg/dL 7-25 GLUCOSE 159 mg/dL H 65-100 SODIUM 116 mmol/L LL 135-145 POTASSIUM 3.4 mmol/L L 3.5-5.0 CHLORIDE 81 mmol/L L 100-110 CO2 23 meq/L 20-30 CREATININE, Serum 0.69 mg/dL 0.50-1.40 eGFR(CKD-EPI 2020) >90 mL/min >60 Apr 15, 2024 08:39 AM [place] MICROALBUMIN CREATININE RATIO PANEL Spe cimen Type: URINE No comment entered. Ordering Provider: TRACY VILLANUEVA Report Released Date/Time: Apr 09, 2024 09:19 AM Reporting Lab: [facility] [address] [address] Performing Lab: [facility] [address] [address] MICROALBUMIN/C REATININE RATIO 83.0 mg/g H 0-29.9 MICROALBUMIN,Q UANTITATIVE 16.8 mg/dL RR UNAVAIL CREATININE URINE 202.40 mg/dL Apr 15, 2024 08:39 AM [place] LIVER FUNCTION Specimen Type: SERUM No comment entered. Ordering Provider: TRACY VILLANUEVA Report Released Date/Time: Apr 09, 2024 09:19 AM Reporting Lab: [facility] [address] [address] Performing Lab: [facility] [address] [address] PROTEIN,TOTAL 7.3 g/dL 6.0-8.3 ALBUMIN 4.5 g/dL 3.5-5.0 ALKALINE PHOSPHATASE 62 U/L 40-150 AST 35 U/L H 5-34 ALT 27 U/L BILIRUBIN, TOTAL 2.5 mg/dL H 0.2-1.2 BILIRUBIN, DIRECT 0.7 mg/dL H 0-0.5 Apr 15, 2024 08:39 AM [place] VITAMIN D (25-OH) Specimen Type: SERUM No comment entered. Ordering Provider: TRACY VILLANUEVA Report Released Date/Time: Apr 09, 2024 09:19 AM Reporting Lab: [address] [address] Performing Lab: [address] [address] VITAMIN D (25-OH) 49 ng/mL 20-50 Apr 15, 2024 08:39 AM [place] CBC Specimen Type: BLOOD Comment: MCHC >36, SPECIMEN 1+ ICTERIC, QNS FOR PLASMA REPLACEMENT INTERPRET RESULTS WITH CAUTION, SUGGEST PROPER REDRAW SHORT DRAW Ordering Provider: TRACY VILLANUEVA Report Released Date/Time: Apr 09, 2024 09:19 AM Reporting Lab: [address] [address] Performing Lab: [address] [address] WBC 8.70 10*3/uL 4.50-11.00 RBC 4.75 10*6/uL [...] and tobacco- related health factors from the [place] facility where the Encounter took place. Current Smoking Status This section includes the most current smoking, or tobacco-related health factor, from the [place] facility where the Encounter took place. Date/Time Current Smoking Status Comment Facil it December 25, 2023 09:05 AM VA-TOBACCO NEVER USED [place] [facility] [place] [facility] Tobacco Use History This section includes a history of the smoking, or tobacco-related health factors, that were collected on or before the date of the Encounter. The data comes from the [place] facility where the Encounter took place. 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 [facility] [place] [facility] Dec 13, 2022 03:00 PM VA-TOBACCO USE MED NO [facility] [place] [facility] Dec 13, 2022 03:00 PM VA-TOBACCO USER EVERY DAY [facility] [place] [facility] Nov 17, 2021 10:00 AM VA-TOBACCO USE 30 YEARS OR MORE [facility] [place] [facility] Nov 17, 2021 10:00 AM VA-TOBACCO USE ADVICE [place] [facility] [place] [facility] Nov 17, 2021 10:00 AM 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 [facility] [place] [facility] Nov 17, 2021 10:00 AM VA-TOBACCO USE MED NO [facility] [place] [facility] Nov 17, 2021 10:00 AM VA-TOBACCO USE WI 30 MIN OF WAKEUP [facility] [place] [facility] Nov 17, 2021 10:00 AM VA-TOBACCO USER EVERY DAY [facility] [place] [facility] Oct 14, 2013 12:55 PM V1-PT NOT INTERESTED IN QUIT TOBACCO USE [facility] [place] [facility] May 07, 2013 05:04 PM CURRENT SMOKER trying to stop [facility] May 07, 2013 05:04 PM V1-PT DECLINES REF TO TOBACCO CESS PR[facility] May 07, 2013 05:04 PM V1-PT DECLINES TOBACCO CESSATION MEDS [facility] May 07, 2013 05:04 PM V1-PT READY TO QUIT TOBACCO USE [facility] Dec 03, 2012 08:23 AM V1-PT DECLINES REF TO TOBACCO CESS PRGM [facility] Dec 03, 2012 08:23 AM V1-PT DECLINES TOBACCO CESSATION MEDS [facility] Dec 03, 2012 08:23 AM V1-PT THINKING ABOUT QUIT TOBACCO USE [facility] Jun 05, 2012 08:45 AM CURRENT SMOKER 1/2ppd [facility] Jun 05, 2012 08:45 AM V1-PT DECLINES REF TO TOBACCO CESS PRGM [facility] Jun 05, 2012 08:45 AM V1-PT THINKING ABOUT QUIT TOBACCO USE [facility] Jun 05, 2012 08:45 AM V1-TOBACCO CESS MEDS NOT PRESCRIBED Vet wants to talk to his provider-He is nervous about taking meds to quit- but he is interested in quitting [facility] Nov 25, 2011 09:14 AM V1-PT DECLINES REF TO TOBACCO CESS PRGM [facility] Nov 25, 2011 09:14 AM V1-PT DECLINES TOBACCO CESSATION MEDS [facility] Nov 25, 2011 09:14 AM V1-PT THINKING ABOUT QUIT TOBACCO USE [facility] May 06, 2011 01:02 PM CURRENT SMOKER [facility] May 06, 2011 01:02 PM V1-PT DECLINES TOBACCO CESSATION MEDS [facility] May 06, 2011 01:02 PM V1-PT NOT INTERESTED IN QUIT TOBACCO USE [facility] Sep 24, 2010 08:51 AM V1-PT DECLINES TOBACCO CESSATION MEDS [facility] [place] [facility] Sep 24, 2010 08:51 AM V1-PT THINKING ABOUT QUIT TOBACCO USE [facility] [place] [facility] Mar 22, 2010 07:58 AM CURRENT SMOKER 1/2 ppd [facility] [place] [facility] Feb 25, 2009 12:05 PM QUIT TOBACCO USE IN PAST YEAR [facility] [place] [facility] Aug 26, 2008 09:28 AM CURRENT SMOKER 1/2 ppd [facility] [place] [facility] Aug 26, 2008 09:28 AM V1-PT DECLINES REF TO TOBACCO CESS PRGM [facility] [place] [facility] Aug 26, 2008 09:28 AM V1-PT READY TO QUIT TOBACCO USE [facility] [place] [facility] Dec 19, 2007 10:08 AM V1-PT DECLINES REF TO TOBACCO CESS PR[facility] [place] [facility] Dec 19, 2007 10:08 AM V1-PT DECLINES TOBACCO CESSATION MEDS [facility] [place] [facility] Dec 19, 2007 10:08 AM V1-PT THINKING ABOUT QUIT TOBACCO USE [facility] [place] [facility] Sep 11, 2007 11:10 AM CURRENT SMOKER [facility] [place] [facility] Sep 11, 2007 11:10 AM V1-PT DECLINES REF TO TOBACCO CESS PRGM [place] [facility] [place] [facility] Sep 11, 2007 11:10 AM V1-PT DECLINES TOBACCO CESSATION MEDS [facility] [place] [facility] Sep 11, 2007 11:10 AM V1-PT THINKING ABOUT QUIT TOBACCO USE [facility] [place] [facility] Feb 13, 2007 01:46 PM V1-PT DECLINES REF TO TOBACCO CESS PRGM [place] [facility] [place] [facility] Feb 13, 2007 01:46 PM V1-PT DECLINES TOBACCO CESSATION MEDS [facility] [place] [facility] Feb 13, 2007 01:46 PM V1-PT THINKING ABOUT QUIT TOBACCO USE [facility] [place] [facility] Oct 02, 2006 08:28 AM QUIT TOBACCO USE IN PAST YEAR 3 months ago [facility] [place] [facility] Aug 19, 2005 08:33 AM QUIT TOBACCO USE IN PAST YEAR nonsmoker [facility] Sep 21, 2004 09:54 AM [facility] Sep 07, 2004 08:07 AM [facility] Sep 15, 2003 11:21 AM CURRENT SMOKER smokes one pk day [facility] Jul 23, 2003 01:57 PM CURRENT SMOKER [facility] Advance Directives: All historical and current Section Date Range: From patient's date of to the date document was created. This section includes ALL of a patient's completed or amended [place] Advance and Rescinded Directives. The entries below indicate that a directive exists for the patient, but an actual copy is not included with this document. The data comes from all [place] facilities. Date Advance Directives Provider Source Apr 10, 2023 ADVANCE DIRECTIVE GEORGEESSIE DOZIER [facility] Apr 19, 2007 ADVANCE DIRECTIVE VICTORIA JOHNSON [facility] Encounter Notes: All associated encounter notes This section contains the clinical notes associated to the Encounter. Date/Time Encounter Note(s) Provider Source Apr 16, 2024 09:15 AM RN PROGRESS NOTE: LOCAL TITLE: CCC: CLINICAL TRIAGE STANDARD TITLE: RN PROGRESS NOTE DATE OF NOTE: APR 16, 2024@09:15:13 ENTRY DATE: APR 16, 2024@09:15:13 AUTHOR: RONEL DELGADILLO COSIGNER: URGENCY: STATUS: COMPLETED CCC: CLINICAL TRIAGE Has ADDENDA Patient Demographics Patient Name: GUSTAVO GUZMAN Patient Primary [address] [address] [place] [id number] Patient Primary Phone: [phone] Patient : 1940 Patient Age: 83 Call Back Number: [phone] Caller/Recipient Relation to Patient: Other If Other Describe Relation to Patient: son Caller Name: Gustavo Emergency Contact: TEODORO GABRIEL Triage Summary Conducted triage/discussed symptoms Utilized the Triage Tool: No Patient Disposition Patient/Caregiver agrees to plan of care: Yes Nursing Plan and Disposition Other course(s) of action Generated msg to PACT/Provider Provided guidance for worsening symptoms: *Caller/Patient* advised to call facilities [place] Clinical Contact Center or seek immediate medical attention for new or worsening symptoms Nurse Summary Nurse Summary: [place] son Gustavo called stating, He got a call about his Dads critical lab results and was told to take him to the emergency room . He states he will be taking the [place] to [facility] to be seen and was wondering if the hospital would be able to see his lab work and did not want to have him sitting at the hospital longer than needed due to his age. He reports he will stop at the clinic prior to going to the ER to obtain a copy of his labs. Veterans son would like a call back to discuss labs for the ER. [phone] *TX[facility] NOT USED DENIES NEW/WORSENING SYMPTOMS AT TIME OF CALL WILL FORWARD TO PACT FOR FOLLOW UP. Discussed contacting the [facility] triage for any new or worsening sx Non-Triage/Non-Symptom Call Generated msg to PACT/Provider-NonTriage Clinical Contact Center Codes Clinic/Location: V1 CWM PHONE [facility] RN IMPORTANT: This note was created by [facility] Clinical Contact Center staff. Please do not alert the staff member by adding them as a signer for future communications. Alerts are not monitored by this user. /reginaldo/ RONEL DICK RN VISN1 [facility] RN Signed: 04/16/2024 09:15 Receipt Acknowledged By: 04/16/2024 09:45 /chavez DOZIER LPN LPN 04/16/2024 09:56 /reginaldo/ ZACHARY ABBOTT RN REGISTERED NURSE 04/16/2024 ADDENDUM STATUS: COMPLETED and his son came to the clinic and requested labs results to bring it to the hospital, they was informed that [facility] was notified and they are waiting for tashia Guzman. /chavez DOZIER LPN LPN Signed: 04/16/2024 09:48 RONEL DELGADILLO [facility]
--- OUTSIDE RECORDS SUMMARY | 2024-08-16 09:33 | XMS_ITS | Encounter Summary ---
Author Name [facility] [facility] [place] [facility] [place] [facility] [place] Address [address] [place] [address] Care Team Providers Care Door And Arrival Attendant Name Role Phone TRACY VILLANUEVA Primary Care [...] PHI MEDEX BRONZ E December 19, 2013 [id number] GUSTAVO ARAMBULA SR PATIENT [employer] MEDICARE SUPPLEMEN PHI MEDIC ARE SUPPL EMENT Jul 21, 2007 NONE [id number] [phone] Edgar ARAMBULA PATIENT [place] SUPPLEMEN PHI MEDEX BRONZ E December 19, 2013 [id number] [phone] GUSTAVO ARAMBULA SR PATIENT [place] MEDICARE SUPPLEMEN PHI MEDEX BRONZ E December 19, 2013 [id number] Edgar ARAMBULA PATIENT MEDICARE (WNR) MEDICARE (M) PART A Oct 19, 2004 PART A [id number] [id number] Edgar ARAMBULAN PATIENT MEDICARE (WNR) MEDICARE (M) PART B Oct 19, 2004 PART B [id number] [id number] Edgar ARAMBULAN PATIENT MEDICARE (WNR) MEDICARE (M) PART A Oct 19, 2004 PART A [id number] Edgar ARAMBULAN PATIENT MEDICARE (WNR) MEDICARE (M) PART B Oct 19, 2004 PART B [id number] [id number] Edgar ARAMBULAN PATIENT MEDICARE (WNR) MEDICARE (M) PART A Oct 19, 2004 PART A [id number] Edgar ARAMBULAN PATIENT MEDICARE (WNR) MEDICARE () PART B Oct 19, 2004 PART B [id number] Edgar ARAMBULAN PATIENT MEDICARE (WNR) MEDICARE () PART A Oct 19, 2004 PART A [id number] Edgar ARAMBULA PATIENT MEDICARE (WNR) MEDICARE () PART B Oct 19, 2004 PART B [id number] [phone] Edgar ARAMBULAN PATIENT MEDICARE (WNR) MEDICARE () PART A Oct 19, 2004 PART A [id number] Edgar ARAMBULAN PATIENT MEDICARE (WNR) MEDICARE () PART B Oct 19, 2004 PART B [id number] Edgar AARMBULA PATIENT Selected Encounter This section includes the information on record at [place] for the Encounter. Date/Time Encounter Type Encounter Description Reason Pro vider Source Mar 27, 2024 08:17 AM Outpatient Encounter ADMIN PAT ACTIVTIES (MASNONCT) IHE Encounter Template Text not used by [facility] Plan of Treatment: Future Appointments (+ 6 months) and Future Tests (+/- 45 days) The Plan of Treatment section includes future care activities for the [facility] [place] [facility] This section includes future appointments and [...] AMBULATORY - [facility]AT[facility] [place] [facility] Apr 08, 2024 09:30 AM AMBULATORY [facility]ICINE [facility] [place] [facility] Apr 10, 2024 10:45 AM AMBULATORY - MEDICINE [facility] [place] [facility] Apr 26, 2024 11:00 AM AMBULATORY - MEDICINE [facility] [place] [facility] Apr 30, 2024 08:30 AM AMBULATORY [facility] PS[facility]AT[facility] [place] [facility] May 01, 2024 11:00 AM AMBULATORY - NONE [facility] [place] [facility] May 14, 2024 11:30 AM AMBULATORY - MEDICINE [facility] May 31, 2024 11:00 AM AMBULATORY - REHAB MEDICIN E [facility] [place] [facility] May 31, 2024 12:00 PM AMBULATORY - MEDICINE [facility] [place] [facility] Jun 10, 2024 10:00 AM AMBULATORY - MEDICINE [facility] Jun 11, 2024 09:30 AM AMBULATORY - PS[facility]CHIATRY [facility] [place] [facility] Jun 13, 2024 10:00 AM AMBULATORY - MEDICINE [facility] [place] [facility] Jun 19, 2024 11:00 AM AMBULATORY - NONE [facility] [place] [facility] Jun 21, 2024 09:00 AM AMBULATORY - MEDICINE [facility] [place] [facility] Jun 21, 2024 09:15 AM AMBULATORY - MEDICINE [facility] [place] [facility] Jun 21, 2024 09:30 AM AMBULATORY [facility] MEDICINE [facility] [place] [facility] Jun 26, 2024 08:00 AM AMBULATORY - MEDICINE [facility] [place] [facility] Jul 05, 2024 09:00 AM AMBULATORY - REHAB MEDICIN E [facility] [place] [facility] Jul 30, 2024 09:30 AM AMBULATORY - PSYCHIATRY [facility] Aug 05, 2024 09:45 AM AMBULATORY - MEDICINE [facility] Lab Results: +/- 30 days of [...] Range Comment Apr 25, 2024 07:51 AM [place] HEMOGLOBIN A1C PANEL Specimen Type: BLOOD Comment: [...] Feb 13, 2024 02:36 PM Reporting Lab: [address] [address] Performing Lab: [address] [address] HEMOGLOBIN A1C 6.8 H 4.0-5.6 Apr 25, 2024 07:51 AM [place] MICROALBUMIN CREATININE RATIO PANEL Spe cimen Type: URINE No comment entered. Ordering Provider: TRACY VILLANUEVA Report Released Date/Time: Feb 13, 2024 02:36 PM Reporting Lab: [facility] [address] [facility] [address] Performing Lab: [address] [address] MICROALBUMIN/C REATININE RATIO 16.0 mg/g 0-29.9 MICROALBUMIN,Q UANTITATIVE 2.3 mg/dL RR UNAVAIL CREATININE URINE 143.92 mg/dL Apr 25, 2024 07:51 AM [place] BASIC METABOLIC PANEL (non-fasting) Spe cimen Type: SERUM No comment entered. Ordering Provider: TRACY VILLANUEVA Report Released Date/Time: Feb 13, 2024 02:36 PM Reporting Lab: [address] [address] Performing Lab: [address] [address] UREA NITROGEN 15 mg/dL 7-25 GLUCOSE 173 mg/dL H 65-100 SODIUM 133 mmol/L L 135-145 POTASSIUM 4.2 mmol/L 3.5-5.0 CHLORIDE 100 mmol/L 100-110 CO2 22 meq/L 20-30 CREATININE, Serum 0.74 mg/dL 0.50-1.40 eGFR(CKD-EPI 2020) 89 mL/min >60 Apr 15, 2024 08:39 AM [place] HEMOGLOBIN A1C PANEL Specimen Type: BLOOD Comment: [...] Apr 09, 2024 09:19 AM Reporting Lab: [address] [address] Performing Lab: [address] [address] HEMOGLOBIN A1C 6.3 H 4.0-5.6 Apr 15, 2024 08:39 AM [place] LIPID PANEL FASTING Specimen Type: SERUM No comment entered. Ordering Provider: TRACY VILLANUEVA Report Released Date/Time: Apr 09, 2024 09:19 AM Reporting Lab: [address] [address] Performing Lab: [address] [address] CHOLESTEROL 137 mg/dL TRIGLYCERIDE 63 mg/dL 0-150 LDL calculated 63 mg/dL 0-129 CHOL/HDL 2.2 HDL CHOLESTEROL 61 mg/dL H 40-60 Apr 15, 2024 08:39 AM [place] BASIC METABOLIC PANEL (fasting) Specime n Type: SERUM No comment entered. Ordering Provider: TRACY VILLANUEVA Report Released Date/Time: Apr 09, 2024 09:19 AM Reporting Lab: [address] [address] Performing Lab: [address] [address] UREA NITROGEN 9 mg/dL 7-25 GLUCOSE 159 mg/dL H 65-100 SODIUM 116 mmol/L LL 135-145 POTASSIUM 3.4 mmol/L L 3.5-5.0 CHLORIDE 81 mmol/L L 100-110 CO2 23 meq/L 20-30 CREATININE, Serum 0.69 mg/dL 0.50-1.40 eGFR(CKD-EPI 2020) >90 mL/min >60 Apr 15, 2024 08:39 AM [place] MICROALBUMIN CREATININE RATIO PANEL Spe cimen Type: URINE No comment entered. Ordering Provider: TRACY VILLANUEVA Report Released Date/Time: Apr 09, 2024 09:19 AM Reporting Lab: [address] [address] Performing Lab: [address] [address] MICROALBUMIN/C REATININE RATIO 83.0 mg/g H 0-29.9 MICROALBUMIN,Q UANTITATIVE 16.8 mg/dL RR UNAVAIL CREATININE URINE 202.40 mg/dL Apr 15, 2024 08:39 AM [place] VITAMIN D (25-OH) Specimen Type: SERUM No comment entered. Ordering Provider: TRACY VILLANUEVA Report Released Date/Time: Apr 09, 2024 09:19 AM Reporting Lab: [facility] [address] [address] Performing Lab: [address] [address] VITAMIN D (25-OH) 49 ng/mL 20-50 Apr 15, 2024 08:39 AM [place] LIVER FUNCTION Specimen Type: SERUM No comment entered. Ordering Provider: TRACY VILLANUEVA Report Released Date/Time: Apr 09, 2024 09:19 AM Reporting Lab: [address] [place] [address] Performing Lab: [address] [address] PROTEIN,TOTAL 7.3 g/dL 6.0-8.3 ALBUMIN 4.5 g/dL 3.5-5.0 ALKALINE PHOSPHATASE 62 U/L 40-150 AST 35 U/L H 5-34 ALT 27 U/L BILIRUBIN, TOTAL 2.5 mg/dL H 0.2-1.2 BILIRUBIN, DIRECT 0.7 mg/dL H 0-0.5 Apr 15, 2024 08:39 AM [place] CBC Specimen Type: BLOOD Comment: MCHC >36, SPECIMEN 1+ ICTERIC, QNS FOR PLASMA REPLACEMENT INTERPRET RESULTS WITH CAUTION, SUGGEST PROPER REDRAW SHORT DRAW Ordering Provider: TRACY VILLANUEVA Report Released Date/Time: Apr 09, 2024 09:19 AM Reporting Lab: [address] [address] Performing Lab: [address] [address] WBC 8.70 10*3/uL 4.50-11.00 RBC 4.75 10*6/uL [...] 25, 2023 09:05 AM VA-TOBACCO NEVER USED [facility] Tobacco Use History This section includes a history of the smoking, or tobacco-related health factors, that were collected on or before the date of the Encounter. The data comes from the [place] facility where the Encounter took place. 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 [facility] [place] [facility] Dec 13, 2022 03:00 PM VA-TOBACCO USE MED NO [facility] [place] [facility] Dec 13, 2022 03:00 PM VA-TOBACCO USER EVERY DAY [place] [facility] [place] [facility] Nov 17, 2021 10:00 AM VA-TOBACCO USE 30 YEARS OR MORE [place] [facility] [place] [facility] Nov 17, 2021 10:00 AM VA-TOBACCO USE ADVICE [place] [facility] [place] [facility] Nov 17, 2021 10:00 AM VA-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 USE 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 [place] [facility] [place] [facility] Nov 17, 2021 10:00 AM VA-TOBACCO USE MED NO [facility] [place] [facility] Nov 17, 2021 10:00 AM VA-TOBACCO USE WI 30 MIN OF WAKEUP [place] [facility] [place] [facility] Nov 17, 2021 10:00 AM VA-TOBACCO USER EVERY DAY [place] [facility] [place] [facility] Oct 14, 2013 12:55 PM V1-PT NOT INTERESTED IN QUIT TOBACCO USE [facility] [place] [facility] May 07, 2013 05:04 PM CURRENT SMOKER trying to stop [facility] [place] [facility] May 07, 2013 05:04 PM V1-PT DECLINES REF TO TOBACCO CESS PRGM [place] [facility] [place] [facility] May 07, 2013 05:04 PM V1-PT DECLINES TOBACCO CESSATION MEDS [place] [facility] [place] [facility] May 07, 2013 05:04 PM V1-PT READY TO QUIT TOBACCO USE [facility] [place] [facility] Dec 03, 2012 08:23 AM V1-PT DECLINES REF TO TOBACCO CESS PRGM [facility] [place] [facility] Dec 03, 2012 08:23 AM V1-PT DECLINES TOBACCO CESSATION MEDS [facility] [place] [facility] Dec 03, 2012 08:23 AM V1-PT THINKING ABOUT QUIT TOBACCO USE [facility] [place] [facility] Jun 05, 2012 08:45 AM CURRENT SMOKER 1/2ppd [facility] [place] [facility] Jun 05, 2012 08:45 AM V1-PT DECLINES REF TO TOBACCO CESS [facility]GM [facility] Jun 05, 2012 08:45 AM V1-PT THINKING ABOUT QUIT TOBACCO USE [facility] [place] [facility] Jun 05, 2012 08:45 AM V1-TOBACCO CESS MEDS NOT PRESCRIBED Vet wants to talk to his provider-He is nervous about taking meds to quit- but he is interested in quitting [facility] [place] [facility] Nov 25, 2011 09:14 AM V1-PT DECLINES REF TO TOBACCO CESS PRGM [facility] [place] [facility] Nov 25, 2011 09:14 AM V1-PT DECLINES TOBACCO CESSATION MEDS [facility] [place] [facility] Nov 25, 2011 09:14 AM V1-PT THINKING ABOUT QUIT TOBACCO USE [facility] [place] [facility] May 06, 2011 01:02 PM CURRENT SMOKER [facility] [place] [facility] May 06, 2011 01:02 PM V1-PT DECLINES TOBACCO CESSATION MEDS [facility] [place] [facility] May 06, 2011 01:02 PM V1-PT NOT INTERESTED IN QUIT TOBACCO USE [facility] [place] [facility] Sep 24, 2010 08:51 AM V1-PT DECLINES TOBACCO CESSATION MEDS [facility] [place] [facility] Sep 24, 2010 08:51 AM V1-PT THINKING ABOUT QUIT TOBACCO USE [facility] [place] [facility] Mar 22, 2010 07:58 AM CURRENT SMOKER 1/2 ppd [place] [facility] [place] [facility] Feb 25, 2009 12:05 PM QUIT TOBACCO USE IN PAST YEAR [facility] [place] [facility] Aug 26, 2008 09:28 AM CURRENT SMOKER 1/2 ppd [facility] [place] [facility] Aug 26, 2008 09:28 AM V1-PT DECLINES REF TO TOBACCO CESS PRGM [facility] [place] [facility] Aug 26, 2008 09:28 AM V1-PT READY TO QUIT TOBACCO USE [facility] [place] [facility] Dec 19, 2007 10:08 AM V1-PT DECLINES REF TO TOBACCO CESS PRGM [facility] [place] [facility] Dec 19, 2007 10:08 AM V1-PT DECLINES TOBACCO CESSATION MEDS [facility] [place] [facility] Dec 19, 2007 10:08 AM V1-PT THINKING ABOUT QUIT TOBACCO USE [facility] [place] [facility] Sep 11, 2007 11:10 AM CURRENT SMOKER [facility] [place] [facility] Sep 11, 2007 11:10 AM V1-PT DECLINES REF TO TOBACCO CESS PRGM [facility] [place] [facility] Sep 11, 2007 11:10 AM V1-PT DECLINES TOBACCO CESSATION MEDS [facility] [place] [facility] Sep 11, 2007 11:10 AM V1-PT THINKING ABOUT QUIT TOBACCO USE [facility] [place] [facility] Feb 13, 2007 01:46 PM V1-PT DECLINES REF TO TOBACCO CESS PRGM [facility] [place] [facility] Feb 13, 2007 01:46 PM V1-PT DECLINES TOBACCO CESSATION MEDS [facility] [place] [facility] Feb 13, 2007 01:46 PM V1-PT THINKING ABOUT QUIT TOBACCO USE [facility] [place] [facility] Oct 02, 2006 08:28 AM QUIT TOBACCO USE IN PAST YEAR 3 months ago [facility] [place] [facility] Aug 19, 2005 08:33 AM QUIT TOBACCO USE IN PAST YEAR nonsmoker [facility] [place] [facility] Sep 21, 2004 09:54 AM CURRENT SMOKER [facility] [place] [facility] Sep 07, 2004 08:07 AM CURRENT SMOKER [facility] [place] [facility] Sep 15, 2003 11:21 AM CURRENT SMOKER smokes one pk day [facility] Jul 23, 2003 01:57 PM CURRENT SMOKER [facility] Advance Directives: All historical and current [...] DIRECTIVE ESSIE STARK [facility] Apr 19, 2007 ADVANCE DIRECTIVE VICTORIA [facility] Encounter Notes: All associated encounter notes This section contains the clinical notes associated to the Encounter. Date/Time Encounter Note(s) Provider Source Mar 27, 2024 08:17 AM MEDICATION MGT NOT E: LOCAL TITLE: OUTPATIENT MEDICATION REQUEST STANDARD TITLE: MEDICATION MGT NOTE DATE OF NOTE: MAR 27, 2024@08:17 ENTRY DATE: MAR 27, 2024@08:17:32 AUTHOR: MARIA VICTORIA WILCOX EXP COSIGNER: URGENCY: STATUS: COMPLETED Medication Request Date of Request: Mar Is this a New Medication? No [place] came in on march 18 to get the medication below but at the time we only had 2 in stock we would need a new prescription to give him the remaining or a new prescription for the 4 patches please review and advise. Thank you BUPRENORPHINE 5MCG/HR PATCH [facility]: [id number] Verb: APPLY (3) *Dosage: 2 PATCH 5MCG/HOUR *Route: TOPICAL PATCH *Schedule: Q7D *Duration: 7D (DAYS) *Conjunction: THEN Verb: APPLY *Dosage: 1 PATCH 5MCG/HR *Route: TOPICAL PATCH The following actions were performed: PACT Team RN and Provider added as additional Signers to this request *Please let patient know that this request may take up to 72 hours to process.* /reginaldo/ MARIA VICTORIA WILCOX Signed: 03/27/2024 08:21 Receipt Acknowledged By: 03/28/2024 15:10 /reginaldo/ JOSE NORTON MD PHYSICIAN MARIA VICTORIA WILCOX [facility]
--- OUTSIDE RECORDS SUMMARY | 2024-08-16 09:33 | XMS_ITS | Encounter Summary ---
Author Name [facility] Organization [facility] Address [address] [place] [address] Care Team Providers Care Quality Assurance Monitor Final Name Role Phone TRACY VILLANUEVA Primary Care [...] PHI MEDEX BRONZ E December 19, 2013 [id number] [phone] GUSTAVO ARAMBULA SR PATIENT [employer] MEDICARE SUPPLEMEN PHI MEDIC ARE SUPPL EMENT Jul 21, 2007 NONE [id number] [phone] Edgar ARAMBULA [place]IENT [place] SUPPLE[place] PHI MEDEX BRONZ E December 19, 2013 [id number] GUSTAVO ARAMBULA SR PATIENT [place] MEDICARE SUPPLEMEN PHI MEDEX BRONZ E December 19, 2013 [id number] Edgar ARAMBULA PATIENT MEDICARE (WNR) MEDICARE (M) PART A Oct 19, 2004 PART A [id number] Edgar ARAMBULAN PATIENT MEDICARE (WNR) MEDICARE (M) PART B Oct 19, 2004 PART B [id number] Edgar ARAMBULAN PATIENT MEDICARE (WNR) MEDICARE (M) PART A Oct 19, 2004 PART A [id number] Edgar ARAMBULAN PATIENT MEDICARE (WNR) MEDICARE (M) PART B Oct 19, 2004 PART B [id number] Edgar ARAMBULAN PATIENT MEDICARE (WNR) MEDICARE (M) PART A Oct 19, 2004 PART A [id number] Edgar ARAMBULAN PATIENT MEDICARE (WNR) MEDICARE () PART B Oct 19, 2004 PART B [id number] [phone] Edgar ARAMBULAN PATIENT MEDICARE (WNR) MEDICARE () PART A Oct 19, 2004 PART A [id number] Edgar ARAMBULA PATIENT MEDICARE (WNR) MEDICARE () PART B Oct 19, 2004 PART B [id number] [phone] Edgar ARAMBULAN PATIENT MEDICARE (WNR) MEDICARE () PART A Oct 19, 2004 PART A [id number] Edgar ARAMBULAN PATIENT MEDICARE (WNR) MEDICARE () PART B Oct 19, 2004 PART B [id number] Edgar ARAMBULA PATIENT Selected Encounter This section includes the information on record at OR for the Encounter. Date/Time Encounter Type Encounter Description Reason Pro vider Source Apr 18, 2024 10:54 AM Outpatient Encounter ADMIN PAT ACTIVTIES (MASNONCT) IHE Encounter Template Text not used by [facility] Plan of Treatment: Future Appointments (+ 6 months) and Future Tests (+/- 45 days) The Plan of Treatment section includes future care activities for the [facility] This section includes future appointments and future orders which are active, pending or scheduled. Future Appointments This section includes appointments that were scheduled to occur 6 months from the date of the Encounter, up to a maximum of 20 appointments. The data comes from all OR treatment facilities. Appointment Date/Time Appointment Type Appointme nt Facility Name Apr 26, 2024 11:00 AM [facility] Apr 30, 2024 08:30 AM AMBULATORY - PSYCHIATRY [facility] May 01, 2024 11:00 AM AMBULATORY - NONE [facility] May 14, 2024 11:30 AM AMBULATORY - MEDICINE [facility] May 31, 2024 11:00 AM AMBULATORY - REHAB MEDICIN E [facility] May 31, 2024 12:00 PM AMBULATORY - MEDICINE [facility] Jun 10, 2024 10:00 AM AMBULATORY - MEDICINE [facility] Jun 11, 2024 09:30 AM AMBULATORY - PS[facility]CHIATRY [facility] Jun 13, 2024 10:00 AM AMBULATORY - MEDICINE [facility] Jun 19, 2024 11:00 AM AMBULATORY - NONE [facility] Jun 21, 2024 09:00 AM AMBULATORY - MEDICINE [facility] Jun 21, 2024 09:15 AM AMBULATORY - MEDICINE [facility] Jun 21, 2024 09:30 AM AMBULATORY - MEDICINE [facility] Jun 26, 2024 08:00 AM AMBULATORY - MEDICINE [facility] Jul 05, 2024 09:00 AM AMBULATORY - REHAB MEDICIN E [facility] Jul 30, 2024 09:30 AM AMBULATORY - PSYCHIATRY [facility] Aug 05, 2024 09:45 AM AMBULATORY - MEDICINE [facility] Sep 06, 2024 11:00 AM AMBULATORY - MEDICINE [facility] Sep 26, 2024 12:30 PM AMBULATORY - MEDICINE [facility] Oct 08, 2024 09:30 AM AMBULATORY - PSYCHIATRY [facility] Active, Pending, and Scheduled Orders This section includes a listing of several types of active, pending, and scheduled orders, including clinic medications orders, diagnostic test orders, procedure orders and consult orders; where the start date of the order is 45 days before the date of the Encounter or 45 days after the date of theEncounter. The data comes from all OR treatment facilities. Test Date/Time Test Type Test Details Facility Name May 15, 2024 08:08 AM Consult Order [facility] Cons Lead Manufacturing Technician's Choice [place] Lab Results: +/- 30 days of the encounter This section includes the Chemistry and Hematology Lab Results on record with OR for the patient. Radiology Reports and Pathology Reports are provided separately, in subsequent sections. Lab Results This section contains the Chemistry/Hematology Results that were resulted 30 days before or 30 daysafter the date of the Encounter. Date/Time Source Result Type Result - Unit Interpretation Reference Range Comment Apr 25, 2024 07:51 AM [place] HEMOGLOBIN A1C PANEL Specimen Type: BLOOD Comment: [...] Feb 13, 2024 02:36 PM Reporting Lab: [facility] [address] [facility] [address] Performing Lab: [address] [address] HEMOGLOBIN A1C 6.8 H 4.0-5.6 Apr 25, 2024 07:51 AM [place] MICROALBUMIN CREATININE RATIO PANEL Spe cimen Type: URINE No comment entered. Ordering Provider: TRACY VILLANUEVA Report Released Date/Time: Feb 13, 2024 02:36 PM Reporting Lab: [address] [address] Performing Lab: [address] [address] MICROALBUMIN/C REATININE RATIO 16.0 mg/g 0-29.9 MICROALBUMIN,Q UANTITATIVE 2.3 mg/dL RR UNAVAIL CREATININE URINE 143.92 mg/dL Apr 25, 2024 07:51 AM [place] BASIC METABOLIC PANEL (non-fasting) Spe cimen Type: SERUM No comment entered. Ordering Provider: TRACY VILLANUEVA Report Released Date/Time: Feb 13, 2024 02:36 PM Reporting Lab: [address] [address] Performing Lab: [address] [address] UREA NITROGEN 15 mg/dL 7-25 GLUCOSE 173 mg/dL H 65-100 SODIUM 133 mmol/L L 135-145 POTASSIUM 4.2 mmol/L 3.5-5.0 CHLORIDE 100 mmol/L 100-110 CO2 22 meq/L 20-30 CREATININE, Serum 0.74 mg/dL 0.50-1.40 eGFR(CKD-EPI 2020) 89 mL/min >60 Apr 15, 2024 08:39 AM [place] HEMOGLOBIN A1C PANEL Specimen Type: BLOOD Comment: [...] Apr 09, 2024 09:19 AM Reporting Lab: [address] [address] Performing Lab: [address] [address] HEMOGLOBIN A1C 6.3 H 4.0-5.6 Apr 15, 2024 08:39 AM [place] LIPID PANEL FASTING Specimen Type: SERUM No comment entered. Ordering Provider: TRACY VILLANUEVA Report Released Date/Time: Apr 09, 2024 09:19 AM Reporting Lab: [facility] [address] [facility] [address] Performing Lab: [address] [address] CHOLESTEROL 137 mg/dL TRIGLYCERIDE 63 mg/dL 0-150 LDL calculated 63 mg/dL 0-129 CHOL/HDL 2.2 HDL CHOLESTEROL 61 mg/dL H 40-60 Apr 15, 2024 08:39 AM [place] LIVER FUNCTION Specimen Type: SERUM No comment entered. Ordering Provider: TRACY VILLANUEVA Report Released Date/Time: Apr 09, 2024 09:19 AM Reporting Lab: [address] [address] Performing Lab: [address] [address] PROTEIN,TOTAL 7.3 g/dL 6.0-8.3 ALBUMIN 4.5 g/dL 3.5-5.0 ALKALINE PHOSPHATASE 62 U/L 40-150 AST 35 U/L H 5-34 ALT 27 U/L BILIRUBIN, TOTAL 2.5 mg/dL H 0.2-1.2 BILIRUBIN, DIRECT 0.7 mg/dL H 0-0.5 Apr 15, 2024 08:39 AM [place] BASIC METABOLIC PANEL (fasting) Specime n Type: SERUM No comment entered. Ordering Provider: TRACY VILLANUEVA Report Released Date/Time: Apr 09, 2024 09:19 AM Reporting Lab: [address] [address] Performing Lab: [address] [address] UREA NITROGEN 9 mg/dL 7-25 GLUCOSE 159 mg/dL H 65-100 SODIUM 116 mmol/L LL 135-145 POTASSIUM 3.4 mmol/L L 3.5-5.0 CHLORIDE 81 mmol/L L 100-110 CO2 23 meq/L 20-30 CREATININE, Serum 0.69 mg/dL 0.50-1.40 eGFR(CKD-EPI 2020) >90 mL/min >60 Apr 15, 2024 08:39 AM [place] MICROALBUMIN CREATININE RATIO PANEL Spe cimen Type: URINE No comment entered. Ordering Provider: TRACY VILLANUEVA Report Released Date/Time: Apr 09, 2024 09:19 AM Reporting Lab: [address] [address] Performing Lab: [address] [address] MICROALBUMIN/C REATININE RATIO 83.0 mg/g H 0-29.9 MICROALBUMIN,Q UANTITATIVE 16.8 mg/dL RR UNAVAIL CREATININE URINE 202.40 mg/dL Apr 15, 2024 08:39 AM [place] VITAMIN D (25-OH) Specimen Type: SERUM No comment entered. Ordering Provider: TRACY VILLANUEVA Report Released Date/Time: Apr 09, 2024 09:19 AM Reporting Lab: [address] [address] Performing Lab: [address] [address] VITAMIN D (25-OH) 49 ng/mL 20-50 Apr 15, 2024 08:39 AM [place] CBC Specimen Type: BLOOD Comment: MCHC >36, SPECIMEN 1+ ICTERIC, QNS FOR PLASMA REPLACEMENT INTERPRET RESULTS WITH CAUTION, SUGGEST PROPER REDRAW SHORT DRAW Ordering Provider: TRACY VILLANUEVA Report Released Date/Time: Apr 09, 2024 09:19 AM Reporting Lab: [address] [address] Performing Lab: [address] [address] WBC 8.70 10*3/uL 4.50-11.00 RBC 4.75 10*6/uL [...] and tobacco- related health factors from the OR facility where the Encounter took place. Current Smoking Status This section includes the most current smoking, or tobacco-related health factor, from the OR facility where the Encounter took place. Date/Time Current Smoking Status Comment Facil it December 25, 2023 09:05 AM VA-TOBACCO NEVER USED [facility] Tobacco Use History This section includes a history of the smoking, or tobacco-related health factors, that were collected on or before the date of the Encounter. The data comes from the OR facility where the Encounter took place. 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 [facility] Dec 13, 2022 03:00 PM VA-TOBACCO USE MED NO [facility] Dec 13, 2022 03:00 PM VA-TOBACCO USER EVERY DAY [facility] Nov 17, 2021 10:00 AM VA-TOBACCO USE 30 YEARS OR MORE [facility] Nov 17, 2021 10:00 AM VA-TOBACCO USE ADVICE [facility] Nov 17, 2021 10:00 AM VA-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 May 07, 2013 05:04 PM V1-PT DECLINES REF TO TOBACCO CESS PRGM [facility] May 07, 2013 05:04 PM V1-PT DECLINES TOBACCO CESSATION MEDS [facility] May 07, 2013 05:04 PM V1-PT READY TO QUIT TOBACCO USE [facility] Dec 03, 2012 08:23 AM V1-PT DECLINES REF TO TOBACCO CESS PRGM [facility] Dec 03, 2012 08:23 AM V1-PT DECLINES TOBACCO CESSATION MEDS [facility] Dec 03, 2012 08:23 AM V1-PT THINKING ABOUT QUIT TOBACCO USE [facility] Jun 05, 2012 08:45 AM CURRENT SMOKER 1/2ppd [facility] Jun 05, 2012 08:45 AM V1-PT DECLINES REF TO TOBACCO CESS PRGM [facility] Jun 05, 2012 08:45 AM V1-PT THINKING ABOUT QUIT TOBACCO USE [facility] Jun 05, 2012 08:45 AM V1-TOBACCO CESS MEDS NOT PRESCRIBED Vet wants to talk to his provider-He is nervous about taking meds to quit- but he is interested in quitting [facility] Nov 25, 2011 09:14 AM V1-PT DECLINES REF TO TOBACCO CESS PRGM [facility] Nov 25, 2011 09:14 AM V1-PT DECLINES TOBACCO CESSATION MEDS [facility] Nov 25, 2011 09:14 AM V1-PT THINKING ABOUT QUIT TOBACCO USE [facility] May 06, 2011 01:02 PM [address]MOKER [facility] May 06, 2011 01:02 PM V1-PT DECLINES TOBACCO CESSATION MEDS [facility] May 06, 2011 01:02 PM V1-PT NOT INTERESTED IN QUIT TOBACCO USE [facility] [place] [facility] Sep 24, 2010 08:51 AM V1-PT DECLINES TOBACCO CESSATION MEDS [facility] [place] [facility] Sep 24, 2010 08:51 AM V1-PT THINKING ABOUT QUIT TOBACCO USE [facility] [place] Mar 22, 2010 07:58 AM CURRENT SMOKER 1/2 ppd [facility] [place] Feb 25, 2009 12:05 PM QUIT TOBACCO USE IN PAST YEAR [facility] [place] [facility] Aug 26, 2008 09:28 AM CURRENT SMOKER 1/2 ppd [facility] [place] Aug 26, 2008 09:28 AM V1-PT DECLINES REF TO TOBACCO CESS PRGM [facility] [place] [facility] Aug 26, 2008 09:28 AM V1-PT READY TO QUIT TOBACCO USE [facility] [place] [facility] Dec 19, 2007 10:08 AM V1-PT DECLINES REF TO TOBACCO CESS PRGM [facility] [place] [facility] Dec 19, 2007 10:08 AM V1-PT DECLINES TOBACCO CESSATION MEDS [facility] [place] Dec 19, 2007 10:08 AM V1-PT THINKING ABOUT QUIT TOBACCO USE [facility] [place] [facility] Sep 11, 2007 11:10 AM CURRENT SMOKER [place] [facility] [place] [facility] Sep 11, 2007 11:10 AM V1-PT DECLINES REF TO TOBACCO CESS PR[facility] [place] [facility] Sep 11, 2007 11:10 AM V1-PT DECLINES TOBACCO CESSATION MEDS [facility] [place] [facility] Sep 11, 2007 11:10 AM V1-PT THINKING ABOUT QUIT TOBACCO USE [facility] [place] [facility] Feb 13, 2007 01:46 PM V1-PT DECLINES REF TO TOBACCO CESS PRGM [facility] [place] [facility] Feb 13, 2007 01:46 PM V1-PT DECLINES TOBACCO CESSATION MEDS [facility] [place] [facility] Feb 13, 2007 01:46 PM V1-PT THINKING ABOUT QUIT TOBACCO USE [facility] [place] [facility] Oct 02, 2006 08:28 AM QUIT TOBACCO USE IN PAST YEAR 3 months ago [facility] Aug 19, 2005 08:33 AM QUIT TOBACCO USE IN PAST YEAR [facility] Sep 21[facility] 2004 09:54 AM [facility] Sep 07, 2004 08:07 AM [facility]MOKER [facility] Sep 15, 2003 11:21 AM CURRENT SMOKER smokes one pk day [facility] Jul 23, 2003 01:57 PM CURRENT SMOKER [facility] Advance Directives: All historical and current Section Date Range: From patient's date of to the date document was created. This section includes ALL of a patient's completed or amended OR Advance and Rescinded Directives. The entries below indicate that a directive exists for the patient, but an actual copy is not included with this document. The data comes from all OR facilities. Date Advance Directives Provider Source Apr 10, 2023 ADVANCE DIRECTIVE [place] [facility] Apr 19, 2007 ADVANCE DIRECTIVE VICTORIA JOHNSON [facility] Encounter Notes: All associated encounter notes This section contains the clinical notes associated to the Encounter. Date/Time Encounter Note(s) Provider Source Apr 18, 2024 10:54 AM ADMINISTRATIVE NOTE: LOCAL TITLE: CCC: SCHEDULING ADMINISTRATION STANDARD TITLE: ADMINISTRATIVE NOTE DATE OF NOTE: APR 18, 2024@10:54:44 ENTRY DATE: APR 18, 2024@10:54:44 AUTHOR: AMY COSTELLO COSIGNER: URGENCY: STATUS: COMPLETED Patient Demographics Patient Name: GUSTAVO ARAMBULA Patient Primary Phone: [phone] Patient Primary Address: [address] [place] [id number] Patient : 1940 Patient Age: 83 Caller/Recipient Relation to Patient: Other If Other Describe Relation to Patient: Son Caller Name: Gustavo Administrative Administrative Note Comments: son Gustavo calling to inform pact has been admitted to [facility] and wants pact to know they have d'cd his HYDROCHLOROTHIAZIDE TAB 25MG. Agricultural Inspector has cancelled pact appointment for today. Gustavo can be reached at [phone]. IMPORTANT: This note was created by [facility] Clinical Contact Center staff. Please do not alert the staff member by adding them as a signer for future communications. Alerts are not monitored by this user. /reginaldo/ Amy ESTEVEZ [facility] Signed: 04/18/2024 10:54 Receipt Acknowledged By: 04/18/2024 11:48 /es/ MARCUS DOZIER LPN LPN 04/18/2024 11:34 /es/ ZACHARY ABBOTT RN REGISTERED NURSE [facility]Y [facility]O [facility]
--- OUTSIDE RECORDS SUMMARY | 2024-08-16 09:34 | XMS_ITS | Encounter Summary ---
Author Name [facility] [place] [facility] [place] Address [address] [place] [address] Care Team Providers Care Architectural Examiner Name Role Phone TRACY VILLANUEVA Primary Care [...] PHI MEDEX BRONZ E December 19, 2013 [id number] [phone] GUSTAVO ARAMBULA SR PATIENT [employer] MEDICARE SUPPLEMEN PHI MEDIC ARE SUPPL EMENT Jul 21, 2007 NONE [id number] [phone] Edgar ARAMBULA PATIENT [place] MED[place] SUPPLEMEN PHI MEDEX BRONZ E December 19, 2013 [id number] GUSTAVO ARAMBULA SR PATIENT [place] MEDICARE SUPPLEMEN PHI MEDEX BRONZ E December 19, 2013 [id number] [phone] Edgar ARAMBULAN PATIENT MEDICARE (WNR) MEDICARE (M) PART A Oct 19, 2004 PART A [id number] Edgar ARAMBULA [place] PATIENT MEDICARE (WNR) MEDICARE (M) PART B Oct 19, 2004 PART B [id number] [phone] Edgar ARAMBULA [place] PATIENT MEDICARE (WNR) MEDICARE (M) PART A Oct 19, 2004 PART A [id number] Edgar ARAMBULA [place] PATIENT MEDICARE (WNR) MEDICARE (M) PART B Oct 19, 2004 PART B [id number] Edgar ARAMBULA [place] PATIENT MEDICARE (WNR) MEDICARE (M) PART A Oct 19, 2004 PART A [id number] Edgar ARAMBULA [place] PATIENT MEDICARE (WNR) MEDICARE (M) PART B Oct 19, 2004 PART B [id number] Edgar AR[place]BUL[place] PATIENT MEDICARE (WNR) MEDICARE () PART A Oct 19, 2004 PART A [id number] Edgar ARAMBULAN PATIENT MEDICARE (WNR) MEDICARE () PART B Oct 19, 2004 PART B [id number] [phone] Edgar ARAMBULAN PATIENT MEDICARE (WNR) MEDICARE () PART A Oct 19, 2004 PART A [id number] Edgar ARAMBULA PATIENT MEDICARE (WNR) MEDICARE (M) PART B Oct 19, 2004 PART B [id number] [phone] Edgar ARAMBULA PATIENT Selected Encounter This section includes the information on [place] at [place] for the [place]counter. 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 This section includes future appointments and future orders which are active, pending or scheduled. Future Appointments This section includes appointments that were scheduled to occur 6 months from the date of the Encounter, up to a maximum of 20 appointments. The data comes from all [place] treatment facilities. Appointment Date/Time Appointment Type Appointme nt Facility Name May 31, 2024 11:00 AM AMBULATORY - [facility]ICIN [facility] [place] [facility] May 31, 2024 12:00 PM AMBULATORY - MEDICINE [facility] [place] [facility] Jun 10, 2024 10:00 AM [facility] Jun 11, 2024 09:30 AM AMBULATORY - [place]CHIATRY [place] [facility] [place] [facility] Jun 13, 2024 10:00 AM AMBULATORY - MEDICINE [facility] [place] [facility] Jun 19, 2024 11:00 AM AMBULATORY - NONE [facility] [place] [facility] Jun 21, 2024 09:00 AM AMBULATORY [place]IC[place] [facility] [place] [facility] Jun 21, 2024 09:15 AM AMBULATORY - MEDICINE [facility] [place] [facility] Jun 21, 2024 09:30 AM AMBULATORY - MEDICINE [facility] [place] [facility] Jun 26, 2024 08:00 AM AMBULATORY - MEDICINE [facility] [place] [facility] Jul 05, 2024 09:00 AM AMBULATORY - REHAB MEDICIN E [facility] [place] [facility] Jul 30, 2024 09:30 AM AMBULATORY [place]RY [place] [facility] [place] [facility] Aug 05, 2024 09:45 AM AMBULATORY - MEDICINE [facility] [place] [facility] Sep 06, 2024 11:00 AM AMBULATORY - [place]ICINE [place] [facility] [place] [facility] Sep 26, 2024 12:30 PM AMBULATORY - MEDICINE [place] Oct 08, 2024 09:30 AM AMBULATORY - PS[place]ATRY [place] [facility] [place] [facility] Oct 21, 2024 09:30 AM AMBULATORY - MEDICINE [place] Active, [...] of theEncounter. The data comes from all [place] treatment facilities. Test Date/Time Test Type Test Details Facility Name May 15, 2024 08:08 AM Consult Order [facility] Cons Primary Counselor's Choice [place] Lab Results: +/- 30 days of the [...] Range Comment Apr 25, 2024 07:51 AM [place] HEMOGLOBIN A1C PANEL Specimen Type: BLOOD Comment: [...] Feb 13, 2024 02:36 PM Reporting Lab: [address] [address] Performing Lab: [address] [address] HEMOGLOBIN A1C 6.8 H 4.0-5.6 Apr 25, 2024 07:51 AM [place] MICROALBUMIN CREATININE RATIO PANEL Spe cimen Type: URINE No comment entered. Ordering Provider: TRACY VILLANUEVA Report Released Date/Time: Feb 13, 2024 02:36 PM Reporting Lab: [address] [address] Performing Lab: [address] [address] MICROALBUMIN/C REATININE RATIO 16.0 mg/g 0-29.9 MICROALBUMIN,Q UANTITATIVE 2.3 mg/dL RR UNAVAIL CREATININE URINE 143.92 mg/dL Apr 25, 2024 07:51 AM [place] BASIC METABOLIC PANEL (non-fasting) Spe cimen Type: SERUM No comment entered. Ordering Provider: TRACY VILLANUEVA Report Released Date/Time: Feb 13, 2024 02:36 PM Reporting Lab: [address] [address] Performing Lab: [address] [address] UREA NITROGEN 15 mg/dL 7-25 GLUCOSE 173 mg/dL H 65-100 SODIUM 133 mmol/L L 135-145 POTASSIUM 4.2 mmol/L 3.5-5.0 CHLORIDE 100 mmol/L 100-110 CO2 22 meq/L 20-30 CREATININE, Serum 0.74 mg/dL 0.50-1.40 eGFR(CKD-EPI 2020) 89 mL/min >60 Apr 15, 2024 08:39 AM [place] HEMOGLOBIN A1C PANEL Specimen Type: BLOOD Comment: [...] Apr 09, 2024 09:19 AM Reporting Lab: [address] [address] Performing Lab: [address] [address] HEMOGLOBIN A1C 6.3 H 4.0-5.6 Apr 15, 2024 08:39 AM [place] LIPID PANEL FASTING Specimen Type: SERUM No comment entered. Ordering Provider: TRACY VILLANUEVA Report Released Date/Time: Apr 09, 2024 09:19 AM Reporting Lab: [address] [address] Performing Lab: [address] [address] CHOLESTEROL 137 mg/dL TRIGLYCERIDE 63 mg/dL 0-150 LDL calculated 63 mg/dL 0-129 CHOL/HDL 2.2 HDL CHOLESTEROL 61 mg/dL H 40-60 Apr 15, 2024 08:39 AM [place] LIVER FUNCTION Specimen Type: SERUM No comment entered. Ordering Provider: TRACY VILLANUEVA Report Released Date/Time: Apr 09, 2024 09:19 AM Reporting Lab: [address] [address] Performing Lab: [address] [address] PROTEIN,TOTAL 7.3 g/dL 6.0-8.3 ALBUMIN 4.5 g/dL 3.5-5.0 ALKALINE PHOSPHATASE 62 U/L 40-150 AST 35 U/L H 5-34 ALT 27 U/L BILIRUBIN, TOTAL 2.5 mg/dL H 0.2-1.2 BILIRUBIN, DIRECT 0.7 mg/dL H 0-0.5 Apr 15, 2024 08:39 AM [place] BASIC METABOLIC PANEL (fasting) Specime n Type: SERUM No comment entered. Ordering Provider: TRACY VILLANUEVA Report Released Date/Time: Apr 09, 2024 09:19 AM Reporting Lab: [facility] [address] Performing Lab: [address] [address] UREA NITROGEN 9 mg/dL 7-25 GLUCOSE 159 mg/dL H 65-100 SODIUM 116 mmol/L LL 135-145 POTASSIUM 3.4 mmol/L L 3.5-5.0 CHLORIDE 81 mmol/L L 100-110 CO2 23 meq/L 20-30 CREATININE, Serum 0.69 mg/dL 0.50-1.40 eGFR(CKD-EPI 2020) >90 mL/min >60 Apr 15, 2024 08:39 AM [place] MICROALBUMIN CREATININE RATIO PANEL Spe cimen Type: URINE No comment entered. Ordering Provider: TRACY VILLANUEVA Report Released Date/Time: Apr 09, 2024 09:19 AM Reporting Lab: [address] [address] Performing Lab: [address] [address] MICROALBUMIN/C REATININE RATIO 83.0 mg/g H 0-29.9 MICROALBUMIN,Q UANTITATIVE 16.8 mg/dL RR UNAVAIL CREATININE URINE 202.40 mg/dL Apr 15, 2024 08:39 AM [place] VITAMIN D (25-OH) Specimen Type: SERUM No comment entered. Ordering Provider: TRACY VILLANUEVA Report Released Date/Time: Apr 09, 2024 09:19 AM Reporting Lab: [address] [address] Performing Lab: [address] [address] VITAMIN D (25-OH) 49 ng/mL 20-50 Apr 15, 2024 08:39 AM [place] CBC Specimen Type: BLOOD Comment: MCHC >36, SPECIMEN 1+ ICTERIC, QNS FOR PLASMA REPLACEMENT INTERPRET RESULTS WITH CAUTION, SUGGEST PROPER REDRAW SHORT DRAW Ordering Provider: TRACY VILLANUEVA Report Released Date/Time: Apr 09, 2024 09:19 AM Reporting Lab: [address] [address] Performing [facility]: [facility] [address] [facility] [address] WBC 8.70 10*3/uL 4.50-11.00 RBC 4.75 10*6/uL 4.23-5.66 HGB 13.9 g/dL 12.8-17 HCT 36.1 L 39.2-50.4 MCV 76.0 fL L 82-99 MCHC 38.5 g/dL H 30.8-35.1 PLT 227 10*3/uL 140-360 RDW-CV 12.7 12.0-16.0 MCH 29.3 pg 26.2-32.6 Vital Signs: All taken on the encounter date This section contains inpatient and outpatient Vital Signs collected on the date of the Encounter. Date/Time Temperature Pulse Blood Pressure Respiratory Rate SP02 Pain Height Weight Body Mass Index Source May 14, 2024 11:39 AM 97.7 76 156/74 19 98 60.3 130 25 [place] IE Social History: Smoking Status (Most current) and [...] place. Date/Time Current Smoking Status Comment Lopez itaniket December 25, 2023 09:00 AM VA-TOBACCO USE WI 30 MIN OF WAKE UP [place] Tobacco Use History This section includes a history of the smoking, or tobacco-related health factors, that were collected on or before the date of the Encounter. The data comes from the [place] facility where the Encounter took place. 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 Apr 19, 2007 ADVANCE DIRECTIVE VICTORIA JOHNSON CARMELRichy [facility] Encounter Notes: All associated encounter notes This section contains the clinical notes associated to the Encounter. Date/Time Encounter Note(s) Provider Source May 14, 2024 11:33 AM PRIMARY CARE NURSE PRACTITIONER OUTPATIENT NOTE: LOCAL TITLE: NURSE PRACTITIONER OUTPATIENT NOTE STANDARD TITLE: PRIMARY CARE NURSE PRACTITIONER OUTPATIENT NOTE DATE OF NOTE: MAY 14, 2024@11:33 ENTRY DATE: MAY 14, 2024@11:33:39 AUTHOR: TRACY VILLANUEVA EXP COSIGNER: URGENCY: STATUS: COMPLETED PRIMARY CARE VISIT GUSTAVO ALEXANDER SR RALF, is a 83 y/o WHITE MALE who [place] today at the [place] [facility]. TYPE OF VISIT: Face to face HPI: COPD - ERWIN with minimal activity. States he yawns all the time. CO2 level in Mar wnl. LDCT 03/16/24 On maintenance and rescue Rx + smoker - had cut back but now smoking about 8 cig/day again. Has used nicotine patch but stopped. Wants to try again. HTN - followed by cardiology. BP in clinic today 157/76, home BP 130-140/70s. On amlodipine only; HCTZ was dc'd. ASHD - lipids wnl in March. No hx [place]. On apixaban. Followed by cardiology. PVD with hx athereectomy - on Eliquis. DM2 - a1c 6.8. Satble on metformin, statin. Denies neuropathy. Needs to see podiatry for routine nail care. Recent labs reviewed and all medications were reconciled during this visit. HEALTHCARE PROVIDERS: cardiology HISTORY: PERIOD OF SERVICE - [place] FROM December TO Oct COMBAT SERVICE INDICATED: No VITAL SIGNS: Blood Pressure: 156/74 (05/14/2024 11:39) Pain: 7 (09/05/2023 10:02) Patient Height: 60.3 in [153.2 cm] (05/14/2024 11:39) Patient Weight: 130 lb [58.97 kg] (05/14/2024 11:39) Pulse: 76 (05/14/2024 11:39) Respiration: 19 (05/14/2024 11:39) Temperature: 97.7 F [36.5 C] (05/14/2024 11:39) REVIEW OF SYSTEMS: CONSTITUTIONAL: No fevers, chills, unexpected weight changes. EENT: No changes in vision or hearing, sneezing, congestion, rhinorrhea, anosmia, sore throat or ageusia. CARDIOVASCULAR: No chest pain, palpitations or peripheral edema. RESPIRATORY: No SOB at rest. + ERWIN. Denies cough, sputum, wheeze. GASTROINTESTINAL: Denies abdominal pain, N/V/D/C. No melena or hematochezia. NEUROLOGIC: No headaches, dizziness, numbness/tingling in the extremities or unilateral weakness. PHYSICAL EXAMINATION: General: Well-appearing in no obvious distress. Mental Status: Alert and oriented x4. Neck: Supple. No JVD. No carotid bruit. Thyroid unremarkable. Lungs: CTAB. Normal chest excursion. Eupneic respirations. CV: Heart tones S1, S2. RRR. 2/6 KIMMY. No peripheral edema. Vascular changes noted BLE. GI: Abdomen is soft and nontender. No palpable mass or organomegaly. Neuro: sensation intact BLE Psych: Normal mood and affect. Normal judgment. Cooperative with exam, follows commands. ALLERGIES: GEMFIBROZIL, LISINOPRIL HEALTH MAINTENANCE - see end of note PREVENTIVE MEDICINE GOALS Info Only: [facility] Video Connect Capable DUE NOW AIMS Testing DUE NOW Home Telehealth ([facility]) Referral Mar 11 Influenza Immunization DUE NOW Medication Reconciliation DUE NOW HTN Assess for Elevated BP>=140/90 DUE NOW Opioid Drug Screening V2 Jul 04 Eye Care At-Risk Screen DUE NOW (Optional) Whole Health Documentation DUE NOW ASSESSMENT/PLAN: Active problems - Computerized Problem List is the source for the followin. Arteriosclerotic heart disease - continue apixaban until risk > benefit. No hx [place]. Followed by cardiology. Continue management of comorbid conditions. 2. Long-term current use of anticoagulant - at high risk for bleeding complications, monitor closely. 3. Mixed hyperlipidaemia - labs stable. Continue statin until risk > benefit. 4. Benign essential hypertension - home BP usually stable. No longer on diuretic. Continue Rx at current dose; medication managed by cardiology. 5. peripheral vascular disease - continue anticoagulation until risk > benefit. Referral made to podiatry for nail care. 6. Diabetes mellitus type 2 - A1c 6.8. Continue Rx, recommend spot checking BS at home. Referral made to podiatry for nail care. Has upcoming eye appt 7. Chronic obstructive lung disease - Referral made to pulmonology d/t possible CO2 excess. Continue current Rx. Decline expected with natural progression of disease. 8. Tobacco use (SNOMED CT [id number]) - wants to try to quit again. States he has plenty of nicotine patches at home to restart. Declines referral to smoking cessation program. FOLLOW UP: Return to clinic as noted below and/or sooner PRN UPCOMING APPOINTMENTS: 05/31/2024 11:00 CWM NO AUDIO EVAL E 05/31/2024 12:00 CWM/NO/OPTOMETRY/OSHINSKI 06/11/2024 09:30 CWM/NO/VVC/MHC/DANIELS1 06/13/2024 10:00 COM CARE-ORTHO GEN 06/19/2024 11:00 CWM/SO/NUTRITION1 08/05/2024 09:45 CWM/NO/VVC/PAIN MD CLINIC 09/06/2024 11:00 CWM/SO/PHARM/PACT 2 No barriers noted; patient [...] this [facility] (local) and dispensed from another [place] or [facility] facility (remote) as well as inpatient orders (local, pending and active), local clinic medications, locally documented non-VA medications, and local prescriptions that have or been discontinued in the past 90 days. - Discrepancies were identified, addressed, and discussed with the patient/caregiver at this encounter. Discrepancies: no longer on diuretic or ASA - All changes in medications, including all [...] DIABETIC RETINOPATHY: Diabetes Diagnosis Information: Problem Diagnosis: 05/14/2024 [id number] (SNOMED CT) Type 2 diabetes mellitus Date Entered: 09/25/2023; Date Last Modified: 05/14/2024 Status: ACTIVE; Priority: UNDEFINED Prov. Narr. - Diabetes mellitus type 2 MACULAR DEGENERATION: Macular Degeneration Risk Factors Information: Reminder Term: VA-AMD RISK FACTORS Problem Diagnosis: 05/22/2024 I25.10 (ICD-10-CM) Atherosclerotic Heart Disease of [place] Coronary Artery without Angina Pectoris Date Entered: 05/14/2024; Date Last Modified: 05/22/2024 Status: ACTIVE; Priority: UNDEFINED Prov. Narr. - Arteriosclerotic heart disease GLAUCOMA: Glaucoma Risk Factors Information: Encounter Diagnosis: 09/20/2010@08:00 365.01 (ICD-9-CM) Open angle with borderline glaucoma findings rank: PRIMARY Prov. Narr. - Open Angle Glaucoma Suspect Action: Patient has a future eye care appointment scheduled within the next 90 days. Date of Appointment: 05/31/24 /reginaldo/ DARLENE BOX CERTIFIED NURSE PRACTITIONER Signed: 05/22/2024 14:59 TRACY VILLANUEVA [place] May 09, 2024 02:29 PM PRIMARY CARE TELEP MELVI ENCOUNTER NOTE: LOCAL TITLE: TELEPHONE NOTE/PRIMARY CARE STANDARD TITLE: PRIMARY CARE TELEPHONE ENCOUNTER NOTE DATE OF NOTE: MAY 09, 2024@14:29 ENTRY DATE: MAY 09, 2024@14:29:36 AUTHOR: RABIA MANN EXP COSIGNER: URGENCY: STATUS: COMPLETED Design Assistant called to [ ] Schedule primary care appt [ ] Reschedule primary care appt. [X} Remind of upcoming primary care appt. SPOKE WITH: [ ] Fasting blood work needed, and vet reminded. [ ] Non fasting blood work needed, and vet reminded. [X} No labs needed. /reginaldo/ RABIA MANN [employer] MEETING PLANNER Signed: 05/09/2024 14:29 RABIA MANN [place] May 09, 2024 02:21 PM ADMINISTRATIVE NOT E: LOCAL TITLE: ADMINISTRATIVE NOTE STANDARD TITLE: ADMINISTRATIVE NOTE DATE OF NOTE: MAY 09, 2024@14:21 ENTRY DATE: MAY 09, 2024@14:21:14 AUTHOR: RABIA MANN EXP COSIGNER: URGENCY: STATUS: COMPLETED AMSA REQUESTED NON VA RECORDS DIRECTED FROM CONTACT LISTED BELOW : [facility] FAX CONFIRMED /reginaldo/ RABIA MANN [employer] MEETING PLANNER Signed: 05/09/2024 14:29 RABIA MANN
--- OUTSIDE RECORDS SUMMARY | 2024-08-16 09:34 | XMS_ITS ---
Author Name [facility] [place] [facility] [place] [facility] [place] Address [address] [place] [address] Care Team Providers Care Driveway Attendant Name Role Phone TRACY VILLANUEVA Primary [...] PHI MEDEX BRONZ E December 19, 2013 [id number] [phone] GUSTAVO ARAMBULA SR PATIENT [employer] MEDICARE SUPPLEMEN PHI MEDIC ARE SUPPL EMENT Jul 21, 2007 NONE [id number] Edgar ARAMBULA PATIENT [place] SUPPLEMEN PHI MEDEX BRONZ E December 19, 2013 [id number] GUSTAVO ARAMBULA SR PATIENT [place] MEDICARE SUPPLEMEN PHI MEDEX BRONZ E December 19, 2013 [id number] Edgar ARAMBULA PATIENT MEDICARE (WNR) MEDICARE () PART A Oct 19, 2004 PART A [id number] Edgar ARAMBULAN PATIENT MEDICARE (WNR) MEDICARE (M) PART B Oct 19, 2004 PART B [id number] Edgar ARAMBULA [place] PATIENT MEDICARE (WNR) MEDICARE () PART A Oct 19, 2004 PART A [id number] [id number] Edgar ARAMBULAN PATIENT MEDICARE (WNR) MEDICARE () PART B Oct 19, 2004 PART B [id number] [phone] [id number] Edgar ARAMBULAN PATIENT MEDICARE (WNR) MEDICARE () PART A Oct 19, 2004 PART A [id number] Edgar ARAMBULAN PATIENT MEDICARE (WNR) MEDICARE () PART B Oct 19, 2004 PART B [id number] Edgar ARAMBULAN PATIENT MEDICARE (WNR) MEDICARE () PART A Oct 19, 2004 PART A [id number] [phone] Edgar ARAMBULAN PATIENT MEDICARE (WNR) MEDICARE () PART B Oct 19, 2004 PART B [id number] Edgar ARAMBULAN PATIENT MEDICARE (WNR) MEDICARE () PART A Oct 19, 2004 PART A [id number] [phone] Edgar ARAMBULAN PATIENT MEDICARE (WNR) MEDICARE () PART B Oct 19, 2004 PART B [id number] [phone] Edgar ARAMBULAN PATIENT Selected Encounter This section includes the information on record at [place] for the Encounter. Date/Time Encounter Type Encounter Description Reason Pro vider Source January 04, 2024 10:00 AM Outpatient Encounter COMMUNITY CARE CONSULT IHE [...] 20 appointments. The data comes from all [place] treatment facilities. Appointment Date/Time Appointment Type Appointme nt Facility Name Feb 05, 2024 10:00 AM AMBULATORY - MEDICINE [facility] [place] [facility] Feb 13, 2024 11:30 AM AMB[facility]ATORY - MEDICINE [facility] Feb 15, 2024 09:00 AM AMBULATORY - PSYCHIATRY [facility] [place] [facility] Feb 15, 2024 09:45 AM AMBULATORY - NONE [facility] [place] [facility] Mar 07, 2024 09:00 AM AMBULATORY - PSYCHIATRY [facility] [place] [facility] Mar 08, 2024 08:30 AM AMBULATORY - NONE [facility] [place] [facility] Mar 11, 2024 09:00 AM [facility]ATORY - MEDICINE [facility] Apr 04, 2024 11:00 AM AMBULATORY - PSYCHIATRY [facility] [place] [facility] Apr 08, 2024 09:30 AM AMBULATORY - MEDICINE [facility] [place] [facility] Apr 10, 2024 10:45 AM AMBULATORY - MEDICINE [facility] [place] [facility] Apr 26, 2024 11:00 AM AMBULATORY [...] 19, 2024 11:00 AM AMBULATORY - NONE [facility] Lab Results: +/- 30 days of the encounter This section includes the Chemistry and Hematology Lab Results on record with [place] for the patient. Radiology Reports and Pathology Reports are provided separately, in subsequent sections. Lab Results This section contains the Chemistry/Hematology Results that were resulted 30 days before or 30 daysafter the date of the Encounter. Date/Time Source Result Type Result - Unit Interpretation Reference Range Comment December 25, 2023 09:26 AM [facility] FERRITIN Specimen Type: SERUM No comment entered. Ordering Provider: TRACY VILLANUEVA Report Released Date/Time: Dec 19, 2023 08:37 AM Reporting Lab: [address] [address] Performing Lab: [address] [address] FERRITIN 25 ng/mL 20-300 December 25, 2023 09:26 AM [facility] HEMOGLOBIN A1C PANEL Specimen Type: BLOOD Comment: [...] Dec 19, 2023 08:37 AM Reporting Lab: [address] [address] Performing Lab: [address] [address] HEMOGLOBIN A1C 7.7 H 4.0-5.6 December 25, 2023 09:26 AM [facility] LIVER FUNCTION Specimen Type: SERUM No comment entered. Ordering Provider: TRACY VILLANUEVA Report Released Date/Time: Dec 19, 2023 08:37 AM Reporting Lab: [address] [address] Performing Lab: [address] [address] PROTEIN,TOTAL 7.0 g/dL 6.0-8.3 ALBUMIN 3.9 g/dL 3.5-5.0 ALKALINE PHOSPHATASE 90 U/L 40-150 AST 17 U/L 5-34 ALT 20 U/L BILIRUBIN, TOTAL 0.6 mg/dL 0.2-1.2 December 25, 2023 09:26 AM [facility] BASIC METABOLIC PANEL (non-fasting) Spe cimen Type: SERUM No comment entered. Ordering Provider: TRACY VILLANUEVA Report Released Date/Time: Dec 19, 2023 08:37 AM Reporting Lab: [address] [address] Performing Lab: [address] [address] UREA NITROGEN 12 mg/dL 7-25 GLUCOSE 240 mg/dL H 65-100 SODIUM 135 mmol/L 135-145 POTASSIUM 4.2 mmol/L 3.5-5.0 CHLORIDE 102 mmol/L 100-110 CO2 24 meq/L 20-30 CREATININE, Serum 0.78 mg/dL 0.50-1.40 eGFR(CKD-EPI 2020) 88 mL/min >60 December 25, 2023 09:26 AM [facility] CBC Specimen Type: BLOOD No comment entered. Ordering Provider: TRACY VILLANUEVA Report Released Date/Time: Dec 19, 2023 08:37 AM Reporting Lab: [address] [address] Performing Lab: [address] [address] WBC 9.74 10*3/uL 4.50-11.00 RBC 4.50 10*6/uL 4.23-5.66 HGB 12.5 g/dL L 12.8-17 HCT 36.2 L 39.2-50.4 MCV 80.4 fL L 82-99 MCHC 34.5 g/dL 30.8-35.1 PLT 275 10*3/uL 140-360 RDW-CV 13.7 12.0-16.0 MCH 27.8 pg 26.2-32.6 December 25, 2023 09:26 AM [facility] MICROALBUMIN CREATININE RATIO PANEL Spe cimen Type: URINE No comment entered. Ordering Provider: TRACY VILLANUEVA Report Released Date/Time: Dec 19, 2023 08:37 AM Reporting Lab: [facility] [place] [facility] [address] [facility] [address] Performing Lab: [facility] [place] [facility] [address] [facility] [address] MICROALBUMIN/C REATININE RATIO 23.9 mg/g 0-29.9 MICROALBUMIN,Q UANTITATIVE 0.7 mg/dL RR UNAVAIL CREATININE URINE 29.30 mg/dL Social History: Smoking Status (Most current) and Tobacco Use (All prior to encounter date) This section includes the most current, and the historical, smoking and tobacco- related health factors from the [place] facility where the Encounter took place. Current Smoking Status This section includes the most current smoking, or tobacco-related health factor, from the [place] facility where the Encounter took place. Date/Time Current Smoking Status Comment Facil ity December 25, 2023 09:05 AM VA-TOBACCO NEVER USED [facility] Tobacco Use History This section includes a history of the smoking, or tobacco-related health factors, that were collected on or before the date of the Encounter. The data comes from the [place] facility where the Encounter took place. Date/Time Smoking Status/Tobac co Use Comment Facility Dec 13, 2022 03:00 PM VA-TOBACCO DOESNT USE WI 30 MIN WAKEUP [facility] [place] [facility] Dec 13, 2022 03:00 PM VA-TOBACCO USE 30 YEARS OR MORE [facility] [place] [facility] Dec 13, 2022 03:00 PM VA-TOBACCO USE ADVICE [facility] [place] [facility] Dec 13, 2022 03:00 PM VA-TOBACCO USE SUPERVISOR PUBLICATIONS NO [facility] [place] [facility] 17, 2021 10:00 AM VA-TOBACCO USE SUPERVISOR PUBLICATIONS NO [facility] Nov 17, 2021 10:00 AM [facility] Nov 17, 2021 10:00 AM VA-TOBACCO USE WI 30 MIN [facility] Nov 17, 2021 10:00 AM VA-TOBACCO USER EVERY DAY [facility] Oct 14, 2013 12:55 PM V1-PT NOT INTERESTED IN QUIT TOBACCO USE [facility] May 07, 2013 05:04 PM CURRENT SMOKER trying to stop [facility] May 07, 2013 05:04 PM V1-PT DECLINES REF TO TOBACCO CESS PRGM [facility] May 07, 2013 05:04 PM V1-PT DECLINES TOBACCO CESSATION MEDS [facility] May 07, 2013 05:04 PM V1-PT READY TO QUIT [facility]BACCO USE [facility] Dec 03, 2012 08:23 AM V1-PT DECLINES REF TO TOBACCO CESS PRGM [facility] Dec 03, 2012 08:23 AM V1-PT DECLINES TOBACCO CESSATION MEDS [facility] Dec 03, 2012 08:23 AM V1-PT THINKING ABOUT QUIT TOBACCO USE [facility] Jun 05, 2012 08:45 AM CURRENT SMOKER 1/2ppd [facility] Jun 05, 2012 08:45 AM V1-PT DECLINES REF TO TOBACCO CESS PRGM [facility] Jun 05, 2012 08:45 AM V1-PT THINKING ABOUT QUIT TOBACCO USE [facility] Jun 05, 2012 08:45 AM V1-TOBACCO CESS MEDS NOT PRESCRIBED Vet wants to talk to his provider-He is nervous about taking meds to quit- but he is interested in quitting [facility] Nov 25, 2011 09:14 AM V1-PT DECLINES REF TO TOBACCO CESS PRGM [facility] [place] [facility] Nov 25, 2011 09:14 AM V1-PT DECLINES TOBACCO CESSATION MEDS [facility] [place] [facility] Nov 25, 2011 09:14 AM V1-PT THINKING ABOUT QUIT TOBACCO USE [facility] [place] [facility] May 06, 2011 01:02 PM CURRENT SMOKER [facility] [place] [facility] May 06, 2011 01:02 PM V1-PT DECLINES TOBACCO CESSATION MEDS [facility] [place] [facility] May 06, 2011 01:02 PM V1-PT [...] SMOKER 1/2 ppd [facility] [place] [facility] Feb 25, 2009 12:05 PM QUIT TOBACCO USE IN PAST YEAR [facility] [place] [facility] Aug 26, 2008 09:28 AM CURRENT SMOKER 1/2 ppd [facility] [place] [facility] Aug 26, 2008 09:28 AM V1-PT DECLINES REF TO TOBACCO CESS PRGM [facility] [place] [facility] Aug 26, 2008 09:28 AM V1-PT READY TO QUIT TOBACCO USE [facility] [place] [facility] Dec 19, 2007 10:08 AM V1-PT DECLINES REF TO TOBACCO CESS PRGM [facility] [place] [facility] AM CURRENT SMOKER [facility] [place] [facility] Sep 11, 2007 11:10 AM V1-PT DECLINES REF TO TOBACCO CESS PRGM [facility] [place] [facility] Sep 11, 2007 11:10 AM V1-PT DECLINES TOBACCO CESSATION MEDS [facility] [place] [facility] Sep 11, 2007 11:10 AM V1-PT THINKING ABOUT QUIT TOBACCO USE [facility] Feb 13, 2007 01:46 PM V1-PT DECLINES REF TO TOBACCO CESS PRGM [facility] Feb 13, 2007 01:46 PM V1-PT DECLINES TOBACCO CESSATION MEDS [facility] Feb 13, 2007 01:46 PM V1-PT THINKING ABOUT QUIT TOBACCO USE [facility] Oct 02, 2006 08:28 AM QUIT TOBACCO USE IN PAST YEAR 3 months ago [facility] Aug 19, 2005 08:33 AM QUIT TOBACCO USE IN PAST YEAR nonsmoker [facility] Sep 21, 2004 09:54 AM CURRENT SMOKER [facility] Sep 07, 2004 08:07 AM CURRENT SMOKER [facility] Sep 15, 2003 11:21 AM CURRENT SMOKER smokes one pk day [facility] Jul 23, 2003 01:57 PM CURRENT SMOKER [facility] Advance Directives: All historical and current Section Date Range: From patient's date of to the date document was created. This section includes ALL of a patient's completed or amended [place] Advance and Rescinded Directives. The entries below indicate that a directive exists for the patient, but an actual copy is not included with this document. The data comes from all [place] facilities. Date Advance Directives Provider Source Apr 10, 2023 ADVANCE DIRECTIVE ESSIE STARK [facility] Apr 19, 2007 ADVANCE DIRECTIVE VICTORIA JOHNSON [facility]
--- OUTSIDE RECORDS SUMMARY | 2024-08-16 09:34 | XMS_ITS ---
Author Name [facility] [place] [facility] [place] Address [address] [place] [address] Care Team Providers Care Sponge Hooker Name Role Phone TRACY VILLANUEVA Primary Care [...] PHI MEDEX BRONZ E December 19, 2013 [id number] GUSTAVO ARAMBULA SR PATIENT [employer] LIFE [employer] CASUALTY MEDICARE SUPPLEMEN PHI MEDIC ARE SUPPL EMENT Jul 21, 2007 NONE [id number] [phone] Edgar ARAMBULA PATIENT [place] MED[place] SUPPLEMEN PHI MEDEX BRONZ E December 19, 2013 [id number] GUSTAVO ARAMBULA SR PATIENT [place] MEDICARE SUPPLEMEN PHI MEDEX BRONZ E December 19, 2013 [id number] [phone] Edgar ARAMBULA PATIENT MEDICARE (WNR) MEDICARE () PART A Oct 19, 2004 PART A [id number] Edgar ARAMBULA PATIENT MEDICARE (WNR) MEDICARE (M) PART B Oct 19, 2004 PART B [id number] Edgar ARAMBULA [place] PATIENT MEDICARE (WNR) MEDICARE () PART A Oct 19, 2004 PART A [id number] Edgar ARAMBULAN PATIENT MEDICARE (WNR) MEDICARE () PART B Oct 19, 2004 PART B [id number] Edgar ARAMBULAN PATIENT MEDICARE (WNR) MEDICARE () PART A Oct 19, 2004 PART A [id number] [phone] Edgar ARAMBULAN PATIENT MEDICARE (WNR) MEDICARE () PART B Oct 19, 2004 PART B [id number] [phone] Edgar ARAMBULAN PATIENT MEDICARE (WNR) MEDICARE () PART A Oct 19, 2004 PART A [id number] [phone] Edgar ARAMBULA PATIENT MEDICARE (WNR) MEDICARE () PART B Oct 19, 2004 PART B [id number] Edgar ARAMBULAN PATIENT MEDICARE (WNR) MEDICARE () PART A Oct 19, 2004 PART A [id number] Edgar ARAMBULAN PATIENT MEDICARE (WNR) MEDICARE () PART B Oct 19, 2004 PART B [id number] Edgar ARAMBULA PATIENT Selected Encounter This section includes the information on record at [place] for the Encounter. Date/Time Encounter Type Encounter Description Reason Pro vider Source Apr 18, 2024 03:17 PM Outpatient Encounter COMMUNITY CARE CONSULT IHE [...] 20 appointments. The data comes from all [place] treatment facilities. Appointment Date/Time Appointment Type Appointme nt Facility Name Apr 26, 2024 11:00 AM AMBULATORY [facility] MEDICINE [facility] [place] [facility] Apr 30, 2024 08:30 AM AMBULATORY - PSYCHIATRY [facility] [place] [facility] May 01, 2024 11:00 AM AMBULATORY - NONE [facility] [place] [facility] May 14, 2024 11:30 AM [facility] MEDICINE [facility] May 31, 2024 11:00 AM AMBULATORY - REHAB MEDICIN E [facility] [place] [facility] May 31, 2024 12:00 PM AMBULATORY - MEDICINE [facility] [place] [facility] Jun 10, 2024 10:00 AM AM[facility]ULATORY - MEDICINE [facility] Jun 11, 2024 09:30 AM AMBULATORY - PSYCHIATRY [facility] [place] [facility] Jun 13, 2024 10:00 AM AMBULATORY - MEDICINE [facility] [place] [facility] Jun 19, 2024 11:00 AM AMBULATORY - NONE [facility] [place] [facility] Jun 21, 2024 09:00 AM AMBULATORY - MEDICINE [facility] [place] [facility] Jun 21, 2024 09:15 AM AMBULATORY - MEDICINE [facility] [place] [facility] Jun 21, 2024 09:30 AM AMBULATORY - MEDICINE [facility] [place] [facility] Jun 26, 2024 08:00 AM AMBULATORY - MEDICINE [facility] [place] [facility] Jul 05, 2024 09:00 AM AMBULATORY - REHAB MEDICIN E [facility] [place] [facility] Jul 30, 2024 09:30 AM AMBULATORY - PSYCHIATRY [facility] [place] [facility] Aug 05, 2024 09:45 AM AMBULATORY - MEDICINE [facility] [place] [facility] Sep 06, 2024 11:00 AM AMBULATORY - MEDICINE [facility] [place] [facility] Sep 26, 2024 12:30 PM [facility] Oct 08, 2024 09:30 AM AMBULATORY - PSYCHIATRY [facility] Active, Pending, and Scheduled Orders This section includes a listing of several types of active, pending, and scheduled orders, including clinic medications orders, diagnostic test orders, procedure orders and consult orders; where the start date of the order is 45 days before the date of the Encounter or 45 days after the date of theEncounter. The data comes from all [place] treatment facilities. Test Date/Time Test Type Test Details Facility Name May 15, 2024 08:08 AM Consult Order COMMUNITY CARE-PULMONARY Cons [employer] [facility] Lab Results: +/- 30 days of the [...] Range Comment Apr 25, 2024 07:51 AM [facility] HEMOGLOBIN A1C PANEL Specimen Type: BLOOD Comment: [...] Feb 13, 2024 02:36 PM Reporting Lab: [facility] [address] [facility] [address] Performing Lab: [address] [address] HEMOGLOBIN A1C 6.8 H 4.0-5.6 Apr 25, 2024 07:51 AM [facility] MICROALBUMIN CREATININE RATIO PANEL Spe cimen Type: URINE No comment entered. Ordering Provider: TRACY VILLANUEVA Report Released Date/Time: Feb 13, 2024 02:36 PM Reporting Lab: [address] [address] Performing Lab: [address] [place] [address] MICROALBUMIN/C REATININE RATIO 16.0 mg/g 0-29.9 MICROALBUMIN,Q UANTITATIVE 2.3 mg/dL RR UNAVAIL CREATININE URINE 143.92 mg/dL Apr 25, 2024 07:51 AM [facility] BASIC METABOLIC PANEL (non-fasting) Spe cimen Type: SERUM No comment entered. Ordering Provider: TRACY VILLANUEVA Report Released Date/Time: Feb 13, 2024 02:36 PM Reporting Lab: [address] [address] Performing Lab: [address] [address] UREA NITROGEN 15 mg/dL 7-25 GLUCOSE 173 mg/dL H 65-100 SODIUM 133 mmol/L L 135-145 POTASSIUM 4.2 mmol/L 3.5-5.0 CHLORIDE 100 mmol/L 100-110 CO2 22 meq/L 20-30 CREATININE, Serum 0.74 mg/dL 0.50-1.40 eGFR(CKD-EPI 2020) 89 mL/min >60 Apr 15, 2024 08:39 AM [facility] HEMOGLOBIN A1C PANEL Specimen Type: BLOOD Comment: [...] Apr 09, 2024 09:19 AM Reporting Lab: [address] [address] Performing Lab: [address] [address] HEMOGLOBIN A1C 6.3 H 4.0-5.6 Apr 15, 2024 08:39 AM [facility] LIPID PANEL FASTING Specimen Type: SERUM No comment entered. Ordering Provider: TRACY VILLANUEVA Report Released Date/Time: Apr 09, 2024 09:19 AM Reporting Lab: [address] [address] Performing Lab: [address] [address] CHOLESTEROL 137 mg/dL TRIGLYCERIDE 63 mg/dL 0-150 LDL calculated 63 mg/dL 0-129 CHOL/HDL 2.2 HDL CHOLESTEROL 61 mg/dL H 40-60 Apr 15, 2024 08:39 AM [facility] LIVER FUNCTION Specimen Type: SERUM No comment entered. Ordering Provider: TRACY VILLANUEVA Report Released Date/Time: Apr 09, 2024 09:19 AM Reporting Lab: [address] [address] Performing Lab: [address] [address] PROTEIN,TOTAL 7.3 g/dL 6.0-8.3 ALBUMIN 4.5 g/dL 3.5-5.0 ALKALINE PHOSPHATASE 62 U/L 40-150 AST 35 U/L H 5-34 ALT 27 U/L BILIRUBIN, TOTAL 2.5 mg/dL H 0.2-1.2 BILIRUBIN, DIRECT 0.7 mg/dL H 0-0.5 Apr 15, 2024 08:39 AM [facility] BASIC METABOLIC PANEL (fasting) Specime n Type: SERUM No comment entered. Ordering Provider: TRACY VILLANUEVA Report Released Date/Time: Apr 09, 2024 09:19 AM Reporting Lab: [address] [address] Performing Lab: [address] [address] UREA NITROGEN 9 mg/dL 7-25 GLUCOSE 159 mg/dL H 65-100 SODIUM 116 mmol/L LL 135-145 POTASSIUM 3.4 mmol/L L 3.5-5.0 CHLORIDE 81 mmol/L L 100-110 CO2 23 meq/L 20-30 CREATININE, Serum 0.69 mg/dL 0.50-1.40 eGFR(CKD-EPI 2020) >90 mL/min >60 Apr 15, 2024 08:39 AM [facility] MICROALBUMIN CREATININE RATIO PANEL Spe cimen Type: URINE No comment entered. Ordering Provider: TRACY VILLANUEVA Report Released Date/Time: Apr 09, 2024 09:19 AM Reporting Lab: [address] [address] Performing Lab: [address] [address] MICROALBUMIN/C REATININE RATIO 83.0 mg/g H 0-29.9 MICROALBUMIN,Q UANTITATIVE 16.8 mg/dL RR UNAVAIL CREATININE URINE 202.40 mg/dL Apr 15, 2024 08:39 AM [facility] VITAMIN D (25-OH) Specimen Type: SERUM No comment entered. Ordering Provider: TRACY VILLANUEVA Report Released Date/Time: Apr 09, 2024 09:19 AM Reporting Lab: [address] [address] Performing Lab: [address] [address] VITAMIN D (25-OH) 49 ng/mL 20-50 Apr 15, 2024 08:39 AM [facility] CBC Specimen Type: BLOOD Comment: MCHC >36, SPECIMEN 1+ ICTERIC, QNS FOR PLASMA REPLACEMENT INTERPRET RESULTS WITH CAUTION, SUGGEST PROPER REDRAW SHORT DRAW Ordering Provider: TRACY VILLANUEVA Report Released Date/Time: Apr 09, 2024 09:19 AM Reporting Lab: [address] [address] Performing Lab: [address] [address] WBC 8.70 10*3/uL 4.50-11.00 RBC 4.75 10*6/uL [...] 25, 2023 09:05 AM VA-TOBACCO NEVER USED [place] [facility] [place] [facility] Tobacco Use History This section includes a history of the smoking, or tobacco-related health factors, that were collected on or before the date of the Encounter. The data comes from the [place] facility where the Encounter took place. 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 NO [facility] [place] [facility] Dec 13, 2022 03:00 PM VA-TOBACCO USE MED NO [facility] [place] [facility] Dec 13, 2022 03:00 PM VA-TOBACCO USER EVERY DAY [facility] [place] [facility] Nov 17, 2021 10:00 AM VA-TOBACCO USE 30 YEARS OR MORE [facility] [place] [facility] Nov 17, 2021 10:00 AM VA-TOBACCO USE ADVICE [facility] [place] [facility] Nov 17, 2021 10:00 AM VA-TOBACCO USE AIR CARGO AGENT NO [facility] [place] [facility] Nov 17, 2021 10:00 AM VA-TOBACCO USE MED NO [facility] [place] [facility] Nov 17, 2021 10:00 AM VA-TOBACCO USE WI 30 MIN OF WAKEUP [facility] [place] [facility] Nov 17, 2021 10:00 AM VA-TOBACCO USER EVERY DAY [facility] [place] [facility] Oct 14, 2013 12:55 PM V1-PT NOT INTERESTED IN QUIT TOBACCO USE [facility] [place] [facility] May 07, 2013 05:04 PM CURRENT SMOKER trying to stop [facility] May 07, 2013 05:04 PM V1-PT DECLINES REF TO TOBACCO CESS PRGM [facility] May 07, 2013 05:04 PM V1-PT DECLINES TOBACCO CESSATION MEDS [facility] May 07, 2013 05:04 PM V1-PT READY TO QUIT TOBACCO USE [facility] Dec 03, 2012 08:23 AM V1-PT DECLINES REF TO TOBACCO CESS PRGM [facility] Dec 03, 2012 08:23 AM V1-PT DECLINES TOBACCO CESSATION MEDS [facility] Dec 03, 2012 08:23 AM V1-PT THINKING ABOUT QUIT TOBACCO USE [facility] Jun 05, 2012 08:45 AM CURRENT SMOKER 1/2ppd [facility] Jun 05, 2012 08:45 AM V1-PT DECLINES REF TO TOBACCO CESS PRGM [facility] Jun 05, 2012 08:45 AM V1-PT THINKING ABOUT QUIT TOBACCO USE [facility] Jun 05, 2012 08:45 AM V1-TOBACCO CESS MEDS NOT PRESCRIBED Vet wants to talk to his provider-He is nervous about taking meds to quit- but he is interested in quitting [facility] Nov 25, 2011 09:14 AM V1-PT DECLINES REF TO TOBACCO CESS PRGM [facility] Nov 25, 2011 09:14 AM V1-PT DECLINES TOBACCO CESSATION MEDS [facility] Nov 25, 2011 09:14 AM V1-PT THINKING ABOUT QUIT TOBACCO USE [facility] May 06, 2011 01:02 PM CURRENT SMOKER [facility] May 06, 2011 01:02 PM V1-PT DECLINES TOBACCO CESSATION MEDS [facility] May 06, 2011 01:02 PM V1-PT NOT INTERESTED IN QUIT TOBACCO USE [facility] Sep 24, 2010 08:51 AM V1-PT DECLINES TOBACCO CESSATION MEDS [facility] [place] [facility] Sep 24, 2010 08:51 AM V1-PT THINKING ABOUT QUIT TOBACCO USE [facility] [place] [facility] Mar 22, 2010 07:58 AM CURRENT SMOKER 1/2 ppd [facility] [place] [facility] Feb 25, 2009 12:05 PM QUIT TOBACCO USE IN PAST YEAR [facility] [place] [facility] Aug 26, 2008 09:28 AM CURRENT SMOKER 1/2 ppd [facility] [place] [facility] Aug 26, 2008 09:28 AM V1-PT DECLINES REF TO TOBACCO CESS PRGM [facility] [place] [facility] Aug 26, 2008 09:28 AM V1-PT READY TO QUIT TOBACCO USE [facility] [place] [facility] Dec 19, 2007 10:08 AM V1-PT DECLINES REF TO TOBACCO CESS PRGM [place] [facility] [place] [facility] Dec 19, 2007 10:08 AM V1-PT DECLINES TOBACCO CESSATION MEDS [facility] [place] [facility] Dec 19, 2007 10:08 AM V1-PT THINKING ABOUT QUIT TOBACCO USE [facility] [place] [facility] Sep 11, 2007 11:10 AM CURRENT SMOKER [facility] [place] [facility] Sep 11, 2007 11:10 AM V1-PT DECLINES REF TO TOBACCO CESS PRGM [place] [facility] [place] [facility] Sep 11, 2007 11:10 AM V1-PT DECLINES TOBACCO CESSATION MEDS [facility] [place] [facility] Sep 11, 2007 11:10 AM V1-PT THINKING ABOUT QUIT TOBACCO USE [facility] [place] [facility] Feb 13, 2007 01:46 PM V1-PT DECLINES REF TO TOBACCO CESS PRGM [place] [facility] [place] [facility] Feb 13, 2007 01:46 PM V1-PT DECLINES TOBACCO CESSATION MEDS [facility] [place] [facility] Feb 13, 2007 01:46 PM V1-PT THINKING ABOUT QUIT TOBACCO USE [facility] [place] [facility] Oct 02, 2006 08:28 AM QUIT TOBACCO USE IN PAST YEAR 3 months ago [facility] [place] [facility] Aug 19, 2005 08:33 AM QUIT TOBACCO USE IN PAST YEAR nonsmoker [facility] Sep 21, 2004 09:54 AM CURRENT SMOKER [facility] Sep 07, 2004 08:07 AM CURRENT SMOKER [facility] Sep 15, 2003 11:21 AM CURRENT SMOKER smokes one pk day [facility] Jul 23, 2003 01:57 PM CURRENT SMOKER [facility] Advance Directives: All [...] 10, 2023 ADVANCE DIRECTIVE CARLOSESSIE STUBBS [facility] Apr 19, 2007 ADVANCE DIRECTIVE [facility] Encounter Notes: All associated encounter notes This section contains the clinical notes associated to the Encounter. Date/Time Encounter Note(s) Provider Source Apr 18, 2024 03:17 PM NONVA NOTE: LOCAL TITLE: [facility] CARE COORD PLAN STANDARD TITLE: NONVA NOTE DATE OF NOTE: APR 18, 2024@15:17 ENTRY DATE: APR 18, 2024@15:17:20 AUTHOR: LISSETTE ROSARIO COSIGNER: URGENCY: STATUS: COMPLETED Emergency Notification Intake Date Presenting to the Facility: Mar Method of Contact: Notified from [facility] worklist Notification ID: [id number] [facility] Referral #: [facility] Name: Hospital: [facility] Address: City: [place] State: [place] Zip Code: Phone : [facility] Facility Point of Contact: Name: Angella Phone: Chief complaint: R53.1 R06.02 Primary Diagnosis: Disposition Admitted Route of Admission: ER Date of Admission: Mar Admitting Diagnosis: R53.1 R06.02 Community Care Provider: Tennille Level of Care: alexia SMITH Signed: 04/18/2024 15:18 Receipt Acknowledged By: 04/18/2024 15:21 /es/ DARLENE BOX CERTIFIED NURSE PRACTITIONER 04/24/2024 12:16 /es/ ALYSHA HARRIS Registered Nurse Real Estate Underwriter 04/18/2024 15:24 /es/ ZACHARY ABBOTT RN REGISTERED NURSE LISSETTE ROSARIO [place]
--- OUTSIDE RECORDS SUMMARY | 2024-08-16 09:34 | XMS_ITS | Encounter Summary ---
Author Name [facility] [place] [place] [facility] [place] Address [address] [place] [address] Care Team Providers Care Weigher And Mixer Name Role Phone TRACY VILLANUEVA Primary Care [...] PHI MEDEX BRONZ E December 19, 2013 [id number] GUSTAVO ARAMBULA SR PATIENT [employer] MEDICARE SUPPLEMEN PHI MEDIC ARE SUPPL EMENT Jul 21, 2007 NONE [id number] Edgar ARAMBULA PATIENT [place] MED[place] SUPPLEMEN PHI MEDEX BRONZ E December 19, 2013 [id number] GUSTAVO ARAMBULA SR PATIENT [place] OF [place] ([place]ARD) MEDICARE SUPPLEMEN PHI MEDEX BRONZ E December 19, 2013 [id number] Edgar ARAMBULA [place] PATIENT MEDICARE (WNR) MEDICARE () PART A Oct 19, 2004 PART A [id number] [id number] Edgar ARAMBULA [place] PATIENT MEDICARE (WNR) MEDICARE (M) PART B Oct 19, 2004 PART B [id number] Edgar ARAMBULA [place] PATIENT MEDICARE (WNR) MEDICARE () PART A Oct 19, 2004 PART A [id number] [id number] Edgar ARAMBULA [place] PATIENT MEDICARE (WNR) MEDICARE (M) PART B Oct 19, 2004 PART B [id number] Edgar ARAMBULA [place] PAT[place] MEDICARE ([place]) MEDICARE () PART A Oct 19, 2004 PART A [id number] [id number] Edgar ARAMBULA [place] PATIENT MEDICARE (WNR) MEDICARE () PART B Oct 19, 2004 PART B [id number] [id number] Edgar ARAMBULA [place] PATIENT MEDICARE (W[place]) MEDICARE () PART A Oct 19, 2004 PART A [id number] Edgar ARAMBULAN PATIENT MEDICARE (WNR) MEDICARE () PART B Oct 19, 2004 PART B [id number] Edgar ARAMBULA [place] PAT[place] MEDICARE ([place]) MEDICARE () PART A Oct 19, 2004 PART A [id number] Edgar ARAMBULA [place] PATIENT MEDICARE ([place]) MEDICARE () PART B Oct 19, 2004 PART B [id number] [phone] Edgar ARAMBULAN PATIENT Selected Encounter This section includes the information on record at [place] for the Encounter. Date/Time Encounter Type Encounter Description Reason Provider Source May 14, 2024 11:40 AM ADMN SARSCOV2 VACC 1 DOSE PRIMARY CARE/MEDICINE ICD-10-CM Z23. Encounter for immunization SOL VILLANUEVA Encounter Template Text not used by VA Assessments - Encounter Diagnoses This section includes the primary and secondary diagnoses documented for the Encounter. Date/Time Primary/Secondary Diagnosis Diagnosis Name Provider Source May 14, 2024 11:40 AM SECONDARY Encounter for immunization STEPHAN DOZIER [place] [facility] [place] [facility] Plan of Treatment: Future Appointments (+ 6 months) and Future Tests (+/- 45 days) The Plan of Treatment section includes future care activities for the patient from all [place] treatmentfacilities. This section includes future appointments and future orders which are active, pending or scheduled. Future Appointments This section includes appointments that were scheduled to occur 6 months from the date of the Encounter, up to a maximum of 20 appointments. The data comes from all [place] treatment facilities. Appointment Date/Time Appointment Type Appointme nt Facility Name May 31, 2024 11:00 AM AMBULATORY - REHAB MEDICIN E [facility] [place] [facility] May 31, 2024 12:00 PM AMBULATORY - MEDICINE [facility] [place] [facility] Jun 10, 2024 10:00 AM AMBULATORY - MEDICINE [facility] Jun 11, 2024 09:30 AM AMBULATORY - PSYCHIATRY [facility] [place] [facility] Jun 13, 2024 10:00 AM AMBULATORY - MEDICINE [facility] [place] [facility] Jun 19, 2024 11:00 AM AMBULATORY - NONE [facility] [place] [facility] Jun 21, 2024 09:00 AM AMBULATORY - MEDICINE [facility] [place] [facility] Jun 21, 2024 09:15 AM AMBULATORY - MEDICINE [facility] [place] [facility] Jun 21, 2024 09:30 AM AMBULATORY - MEDICINE [facility] [place] [facility] Jun 26, 2024 08:00 AM AMBULATORY - MEDICINE [facility] [place] [facility] Jul 05, 2024 09:00 AM AMBULATORY - REHAB MEDICIN E [facility] [place] [facility] Jul 30, 2024 09:30 AM AMBULATORY - PSYCHIATRY [facility] [place] [facility] Aug 05, 2024 09:45 AM AMBULATORY - MEDICINE [facility] [place] [facility] Sep 06, 2024 11:00 AM AMBULATORY - MEDICINE [facility] [place] [facility] Sep 26, 2024 12:30 PM [facility] Oct 08, 2024 09:30 AM AMBULATORY - PSYCHIATRY [facility] Oct 21, 2024 09:30 AM AMBULATORY - MEDICINE [facility] Active, Pending, and Scheduled Orders This section includes a listing of several types of active, pending, and scheduled orders, including clinic medications orders, diagnostic test orders, procedure orders and consult orders; where the start date of the order is 45 days before the date of the Encounter or 45 days after the date of theEncounter. The data comes from all [place] treatment facilities. Test Date/Time Test Type Test Details Facility Name May 15, 2024 08:08 AM Consult Order COMMUNITY CARE-PULMONARY Cons Business Systems Administrator's Choice [place] Lab Results: +/- 30 days of the [...] Range Comment Apr 25, 2024 07:51 AM [place] HEMOGLOBIN A1C PANEL Specimen Type: BLOOD Comment: [...] Feb 13, 2024 02:36 PM Reporting Lab: [address] [address] Performing Lab: [address] [address] HEMOGLOBIN A1C 6.8 H 4.0-5.6 Apr 25, 2024 07:51 AM [place] MICROALBUMIN CREATININE RATIO PANEL Spe cimen Type: URINE No comment entered. Ordering Provider: TRACY VILLANUEVA Report Released Date/Time: Feb 13, 2024 02:36 PM Reporting Lab: [address] [address] Performing Lab: [facility] [address] [facility] [address] MICROALBUMIN/C REATININE RATIO 16.0 mg/g 0-29.9 MICROALBUMIN,Q UANTITATIVE 2.3 mg/dL RR UNAVAIL CREATININE URINE 143.92 mg/dL Apr 25, 2024 07:51 AM [place] BASIC METABOLIC PANEL (non-fasting) Spe cimen Type: SERUM No comment entered. Ordering Provider: TRACY VILLANUEVA Report Released Date/Time: Feb 13, 2024 02:36 PM Reporting Lab: [address] [address] Performing Lab: [address] [address] UREA NITROGEN 15 mg/dL 7-25 GLUCOSE 173 mg/dL H 65-100 SODIUM 133 mmol/L L 135-145 POTASSIUM 4.2 mmol/L 3.5-5.0 CHLORIDE 100 mmol/L 100-110 CO2 22 meq/L 20-30 CREATININE, Serum 0.74 mg/dL 0.50-1.40 eGFR(CKD-EPI 2020) 89 mL/min >60 Apr 15, 2024 08:39 AM [place] HEMOGLOBIN A1C PANEL Specimen Type: BLOOD Comment: [...] Apr 09, 2024 09:19 AM Reporting Lab: [address] [address] Performing Lab: [address] [address] HEMOGLOBIN A1C 6.3 H 4.0-5.6 Apr 15, 2024 08:39 AM [place] LIPID PANEL FASTING Specimen Type: SERUM No comment entered. Ordering Provider: TRACY VILLANUEVA Report Released Date/Time: Apr 09, 2024 09:19 AM Reporting Lab: [address] [address] Performing Lab: [address] [address] CHOLESTEROL 137 mg/dL TRIGLYCERIDE 63 mg/dL 0-150 LDL calculated 63 mg/dL 0-129 CHOL/HDL 2.2 HDL CHOLESTEROL 61 mg/dL H 40-60 Apr 15, 2024 08:39 AM [place] BASIC METABOLIC PANEL (fasting) Specime n Type: SERUM No comment entered. Ordering Provider: TRACY VILLANUEVA Report Released Date/Time: Apr 09, 2024 09:19 AM Reporting Lab: [address] [address] Performing Lab: [address] [address] UREA NITROGEN 9 mg/dL 7-25 GLUCOSE 159 mg/dL H 65-100 SODIUM 116 mmol/L LL 135-145 POTASSIUM 3.4 mmol/L L 3.5-5.0 CHLORIDE 81 mmol/L L 100-110 CO2 23 meq/L 20-30 CREATININE, Serum 0.69 mg/dL 0.50-1.40 eGFR(CKD-EPI 2020) >90 mL/min >60 Apr 15, 2024 08:39 AM [place] MICROALBUMIN CREATININE RATIO PANEL Spe cimen Type: URINE No comment entered. Ordering Provider: TRACY VILLANUEVA Report Released Date/Time: Apr 09, 2024 09:19 AM Reporting Lab: [address] [address] Performing Lab: [address] [address] MICROALBUMIN/C REATININE RATIO 83.0 mg/g H 0-29.9 MICROALBUMIN,Q UANTITATIVE 16.8 mg/dL RR UNAVAIL CREATININE URINE 202.40 mg/dL Apr 15, 2024 08:39 AM [place] VITAMIN D (25-OH) Specimen Type: SERUM No comment entered. Ordering Provider: TRACY VILLANUEVA Report Released Date/Time: Apr 09, 2024 09:19 AM Reporting Lab: [address] [place] [address] Performing Lab: [address] [address] VITAMIN D (25-OH) 49 ng/mL 20-50 Apr 15, 2024 08:39 AM [place] LIVER FUNCTION Specimen Type: SERUM No comment entered. Ordering Provider: TRACY VILLANUEVA Report Released Date/Time: Apr 09, 2024 09:19 AM Reporting Lab: [address] [address] Performing Lab: [address] [address] PROTEIN,TOTAL 7.3 g/dL 6.0-8.3 ALBUMIN 4.5 g/dL 3.5-5.0 ALKALINE PHOSPHATASE 62 U/L 40-150 AST 35 U/L H 5-34 ALT 27 U/L BILIRUBIN, TOTAL 2.5 mg/dL H 0.2-1.2 BILIRUBIN, DIRECT 0.7 mg/dL H 0-0.5 Apr 15, 2024 08:39 AM [place] CBC Specimen Type: BLOOD Comment: MCHC >36, SPECIMEN 1+ ICTERIC, QNS FOR PLASMA REPLACEMENT INTERPRET RESULTS WITH CAUTION, SUGGEST PROPER REDRAW SHORT DRAW Ordering Provider: TRACY VILLANUEVA Report Released Date/Time: Apr 09, 2024 09:19 AM Reporting Lab: [address] [address] Performing Lab: [address] [address] WBC 8.70 10*3/uL 4.50-11.00 RBC 4.75 10*6/uL 4.23-5.66 HGB 13.9 g/dL 12.8-17 HCT 36.1 L 39.2-50.4 MCV 76.0 fL L 82-99 MCHC 38.5 g/dL H 30.8-35.1 PLT 227 10*3/uL 140-360 RDW-CV 12.7 12.0-16.0 MCH 29.3 pg 26.2-32.6 Immunizations: All administered on the encounter date This section contains immunizations associated to the Encounter. Immunization Series Date Issued Reaction Comments COVID-19 (MODERNA), MRNA, LN P-S, PF, 50 MCG/0.5 ML (AGES 12+ YEARS) May 14, 2024 INFLUENZA, HIGH-DOSE, TRIVALENT, PF May 14 Social History: Smoking Status (Most current) and [...] took place. Date/Time Current Smoking Status Comment [facility] it December 25, 2023 09:05 AM [facility]-TOBACCO [facility] USED [place] [facility] Tobacco Use History This section includes a history of the smoking, or tobacco-related health factors, that were collected on or before the date of the Encounter. The data comes from the [place] facility where the Encounter took place. Date/Time Smoking Status/Tobac co Use Comment [facility] Dec 13, 2022 03:00 PM VA-TOBACCO DOESNT USE WI 30 MIN WAKEUP [facility] [place] [facility] Dec 13, 2022 03:00 PM VA-TOBACCO USE 30 YEARS OR MORE [facility] [place] [facility] Dec 13, 2022 03:00 PM VA-TOBACCO USE ADVICE [facility] [place] [facility] Dec 13, 2022 03:00 PM VA-TOBACCO USE PAIN MANAGEMENT PHYSICIAN NO [facility] [place] [facility] Dec 13, 2022 03:00 PM VA-TOBACCO USE MED NO [facility] [place] [facility] Dec 13, 2022 03:00 PM VA-TOBACCO USER EVERY DAY [facility] [place] [facility] Nov 17, 2021 10:00 AM VA-TOBACCO USE 30 YEARS OR MORE [facility] [place] [facility] Nov 17, 2021 10:00 AM VA-TOBACCO USE ADVICE [facility] [place] [facility] Nov 17, 2021 10:00 AM VA-TOBACCO USE PAIN MANAGEMENT PHYSICIAN NO [facility] [place] [facility] Nov 17, 2021 10:00 AM VA-TOBACCO USE MED NO [facility] [place] [facility] Nov 17, 2021 10:00 AM VA-TOBACCO USE WI 30 MIN OF WAKEUP [facility] Nov 17, 2021 10:00 AM VA-TOBACCO USER EVERY DAY [facility] Oct 14, 2013 12:55 PM V1-PT NOT INTERESTED IN QUIT TOBACCO USE [facility] May 07, 2013 05:04 PM CURRENT SMOKER trying to stop [facility] May 07, 2013 05:04 PM V1-PT DECLINES REF TO [facility]ACCO [facility]ESS [facility] May 07, 2013 05:04 PM V1-PT DECLINES TOBACCO CESSATION MEDS [facility] May 07, 2013 05:04 PM V1-PT READY TO QUIT TOBACCO USE [facility] Dec 03, 2012 08:23 AM V1-PT DECLINES REF TO TOBACCO CESS [facility] Dec 03, 2012 08:23 AM V1-PT DECLINES TOBACCO CESSATION MEDS [facility] Dec 03, 2012 08:23 AM V1-PT THINKING ABOUT QUIT TOBACCO USE [facility] Jun 05, 2012 08:45 AM CURRENT SMOKER 1/2ppd [facility] Jun 05, 2012 08:45 AM V1-PT DECLINES REF TO TOBACCO CESS PRGM [facility] Jun 05, 2012 08:45 AM V1-PT THINKING ABOUT QUIT TOBACCO USE [facility] Jun 05, 2012 08:45 AM V1-TOBACCO CESS MEDS NOT PRESCRIBED Vet wants to talk to his provider-He is nervous about taking meds to quit- but he is interested in quitting [facility] Nov 25, 2011 09:14 AM V1-PT DECLINES REF TO TOBACCO CESS PR[facility] Nov 25, 2011 09:14 AM V1-PT DECLINES TOBACCO CESSATION MEDS [facility] Nov 25, 2011 09:14 AM V1-PT THINKING ABOUT QUIT TOBACCO [facility] May 06, 2011 01:02 PM CURRENT SMOKER [facility] [place] [facility] May 06, 2011 01:02 PM V1-PT DECLINES TOBACCO CESSATION MEDS [facility] [place] [facility] May 06, 2011 01:02 PM V1-PT NOT INTERESTED IN QUIT TOBACCO USE [facility] [place] [facility] Sep 24, 2010 08:51 AM V1-PT DECLINES TOBACCO CESSATION MEDS [facility] [place] [facility] Sep 24, 2010 08:51 AM V1-PT THINKING ABOUT QUIT TOBACCO USE [facility] [place] [facility] Mar 22, 2010 07:58 AM CURRENT SMOKER 1/2 ppd [facility] [place] [facility] Feb 25, 2009 12:05 PM QUIT TOBACCO USE IN PAST YEAR [facility] [place] [facility] Aug 26, 2008 09:28 AM CURRENT SMOKER 1/2 ppd [facility] [place] [facility] Aug 26, 2008 09:28 AM V1-PT DECLINES REF TO TOBACCO CESS PRGM [facility] [place] [facility] Aug 26, 2008 09:28 AM V1-PT READY TO QUIT TOBACCO USE [facility] [place] [facility] Dec 19, 2007 10:08 AM V1-PT DECLINES REF TO TOBACCO CESS PRGM [facility] [place] [facility] Dec 19, 2007 10:08 AM V1-PT DECLINES TOBACCO CESSATION MEDS [facility] [place] [facility] Dec 19, 2007 10:08 AM V1-PT THINKING ABOUT QUIT TOBACCO USE [facility] [place] [facility] Sep 11, 2007 11:10 AM CURRENT SMOKER [facility] [place] [facility] Sep 11, 2007 11:10 AM V1-PT DECLINES REF TO TOBACCO CESS PRGM [facility] [place] [facility] Sep 11, 2007 11:10 AM V1-PT DECLINES TOBACCO CESSATION MEDS [facility] [place] [facility] Sep 11, 2007 11:10 AM V1-PT THINKING ABOUT QUIT TOBACCO USE [facility] [place] [facility] Feb 13, 2007 01:46 PM V1-PT DECLINES REF TO TOBACCO CESS [facility] [place] [facility] Feb 13, 2007 01:46 PM V1-PT DECLINES TOBACCO CESSATION MEDS [facility] Feb 13, 2007 01:46 PM V1-PT THINKING ABOUT QUIT TOBACCO USE [facility] Oct 02, 2006 08:28 AM QUIT TOBACCO USE IN PAST YEAR 3 months ago [facility] Aug 19, 2005 08:33 AM QUIT TOBACCO USE IN PAST YEAR nonsmoker [facility] Sep 21, 2004 09:54 AM CURRENT SMOKER [facility] Sep 07, 2004 08:07 AM CURRENT SMOKER [facility] Sep 15, 2003 11:21 AM CURRENT SMOKER smokes one pk day [facility] Jul 23, 2003 01:57 PM CURRENT SMOKER [facility] Advance Directives: All historical [...] Apr 10, 2023 ADVANCE DIRECTIVE ESSIE STARK [facility] Apr 19, 2007 ADVANCE DIRECTIVE VICTORIA JOHNSON [facility] Encounter Notes: All associated encounter notes This section contains the clinical notes associated to the Encounter. Date/Time Encounter Note(s) Provider Source May 14, 2024 11:40 AM PREVENTIVE MEDICIN E NURSING NOTE: LOCAL TITLE: CLINICAL REMINDERS/NURSING STANDARD TITLE: PREVENTIVE MEDICINE NURSING NOTE DATE OF NOTE: MAY 14, 2024@11:40 ENTRY DATE: MAY 14, 2024@11:40:58 AUTHOR: CRISTIANE DOZIER EXP COSIGNER: URGENCY: STATUS: COMPLETED Influenza Immunization: Influenza, High-Dose, Trivalent, Preservative Free (Fluzone-Syringe) Administered: INFLUENZA, HIGH-DOSE, TRIVALENT, PF Date Administered: May 14, 2024 11:41 Senior Pricing Analyst: SANOFI PASTEUR Lot: [id number] Exp Date: Feb 17, 2025 ND: [id number] Admin Route/Site: INTRAMUSCULAR/RIGHT DELTOID Dosage: 0.5mL Vaccine Information Statement(s): INFLUENZA(FLU) VACC(INACTIVATED OR RECOMBINANT)VIS Mar 26, 2021 ([place]) Order By: Policy Administered By: Marcus Dozier The Influenza Vaccine Information Statement (VIS) was reviewed with the patient/caregiver which lists the benefits and risks of the vaccine and the risks of not receiving the Influenza vaccine. The patient/caregiver denied any prior severe reaction to this vaccine or its components or a severe allergic reaction, such as anaphylaxis, to any vaccine or any injectable therapy. The patient/caregiver gave verbal consent to receive the vaccine. HTN Assess for Elevated BP>=140/90: The patient was counseled on the importance of regular exercise and/or physical activity in the control of blood pressure. The patient was counseled on the importance of diet and weight loss/ control in the regulation of blood pressure. COVID-19 Immunization: Moderna Monovalent (Spikevax) Administered: COVID-19 (MODERNA), MRNA, LNP-S, PF, 50 MCG/0.5 ML (AGES 12+ YEARS) Date Administered: May 14, 2024 11:41 Series: Booster Senior Pricing Analyst: MODERNA [employer] Lot: [id number] Exp Date: January 11, 2025 ND: [id number] Admin Route/Site: INTRAMUSCULAR/LEFT DELTOID Dosage: 0.5mL Vaccine Information Statement(s): COVID-19 MRNA VACCINE (12+ YRS) VACCINE VIS Jun 08, 2023 ([place]) Order By: Policy Administered By: Marcus Dozier Override Reason: vet requested Vaccine administered without complications. /reginaldo/ MARCUS DOZIER LPN LPN Signed: 05/14/2024 11:42 MARCUS DOZIER [place]
--- OUTSIDE RECORDS SUMMARY | 2024-08-16 09:34 | XMS_ITS | Encounter Summary ---
Author Name [facility] [place] [facility] [place] [facility] [facility] [place] Address [address] [place] [address] Care Team Providers Care Scheduler Conveyor Name Role Phone TRACY VILLANUEVA Primary Care [...] PHI MEDEX BRONZ E December 19, 2013 [id number] [phone] GUSTAVO ARAMBULA SR PATIENT [employer] MEDICARE SUPPLEMEN PHI MEDIC ARE SUPPL EMENT Jul 21, 2007 NONE [id number] Edgar ARAMBULA PATIENT BCBS CT MEDICARE SUPPLEMEN PHI MEDEX BRONZ E December 19, 2013 [id number] [phone] GUSTAVO ARAMBULA SR PATIENT [place] MEDICARE SUPPLEMEN PHI MEDEX BRONZ E December 19, 2013 [id number] [phone] Edgar ARAMBULA [place] PATIENT MEDICARE (WNR) MEDICARE () PART A Oct 19, 2004 PART A [id number] Edgar ARAMBULA [place] PATIENT MEDICARE (WNR) MEDICARE (M) PART B Oct 19, 2004 PART B [id number] Edgar ARAMBULA [place] PATIENT MEDICARE (WNR) MEDICARE (M) PART A Oct 19, 2004 PART A [id number] [phone] Edgar ARAMBULA [place] PATIENT MEDICARE (WNR) MEDICARE (M) PART B Oct 19, 2004 PART B [id number] Edgar ARAMBULA [place] PATIENT MEDICARE (WNR) MEDICARE () PART A Oct 19, 2004 PART A [id number] Edgar ARAMBULA [place] PATIENT MEDICARE (WNR) MEDICARE () PART B Oct 19, 2004 PART B [id number] [phone] [id number] Edgar ARAMBULA [place] PATIENT MEDICARE (WNR) MEDICARE () PART A Oct 19, 2004 PART A [id number] [phone] Edgar ARAMBULA [place] PATIENT MEDICARE (WNR) MEDICARE () PART B Oct 19, 2004 PART B [id number] Edgar ARAMBULA [place] PAT[place] MEDICARE ([place]) MEDICARE () PART A Oct 19, 2004 PART A [id number] Edgar ARAMBULAN PATIENT MEDICARE (WNR) MEDICARE () PART B Oct 19, 2004 PART B [id number] Edgar ARAMBULAN PATIENT Selected Encounter This section includes the information on record at [place] for the Encounter. Date/Time Encounter Type Encounter Description Reason Provider Source Apr 26, 2024 11:00 AM MTMS BY PHARM ADDL 15 MIN CLINICAL PHARMACY ICD-10-CM E11.9 Type 2 diabetes mellitus without complications MELIZA KNUTSON Encounter Template Text not used by [facility] Assessments - Encounter Diagnoses This section includes the primary and secondary diagnoses documented for the Encounter. Date/Time Primary/Secondary Diagnosis Diagnosis Name Provider Source Apr 30, 2024 11:16 AM PRIMARY Type 2 diabetes mellitus without complications JOSSUE KNUTSON [place] Plan of Treatment: Future Appointments (+ 6 months) and Future Tests (+/- 45 days) The Plan of Treatment section includes future care activities for the patient from all [place] [facility]. This section includes future appointments and future orders which are active, pending or scheduled. Future Appointments This section includes appointments that were scheduled to occur 6 months from the date of the Encounter, up to a maximum of 20 appointments. The data comes from all [place] treatment facilities. Appointment Date/Time Appointment Type Appointme nt Facility Name Apr 30, 2024 08:30 AM AMBULATORY [facility] [place] [facility] May 01, 2024 11:00 AM AMBULATORY - NONE [facility] [place] [facility] May 14, 2024 11:30 AM AMBULATORY - MEDICINE [facility] May 31, 2024 11:00 AM AMBULATORY - REHAB MEDICIN E [facility] [place] [facility] May 31, 2024 12:00 PM AMBULATORY - MEDICINE [facility] [place] [facility] Jun 10, 2024 10:00 AM AMBULATORY - MEDICINE [facility] Jun 11, 2024 09:30 AM AMBULATORY - PS[facility]IATRY [facility] [place] [facility] Jun 13, 2024 10:00 AM AM[place]ULATORY [place] [facility] [place] [facility] Jun 19, 2024 11:00 AM AMBULATORY - NONE [facility] [place] [facility] Jun 21, 2024 09:00 AM AMBULATORY - MEDICINE [facility] [place] [facility] Jun 21, 2024 09:15 AM AMBULATORY - MEDICINE [facility] [place] [facility] Jun 21, 2024 09:30 AM [place]ORY [place] [facility] [place] [facility] Jun 26, 2024 08:00 AM AMBULATORY - MEDICINE [facility] [place] [facility] Jul 05, 2024 09:00 AM AMBULATORY - REHAB MEDICIN E [facility] [place] [facility] Jul 30, 2024 09:30 AM AMBULATORY - PS[facility]CHIATRY [facility] [place] [facility] Aug 05, 2024 09:45 AM [facility] Sep 06, 2024 11:00 AM [facility] [place] [facility] Sep 26, 2024 12:30 PM AMBULATORY - MEDICINE [facility] [place] Oct 08, 2024 09:30 AM [facility] Oct 21, 2024 09:30 AM AMBULATORY [...] 08:08 AM Consult Order COMMUNITY CARE-PULMONARY Cons Lean [employer] [facility] Lab Results: +/- 30 days of the [...] Range Comment Apr 25, 2024 07:51 AM [place] HEMOGLOBIN A1C PANEL Specimen Type: BLOOD Comment: [...] Feb 13, 2024 02:36 PM Reporting Lab: [facility] [address] [facility] [address] Performing Lab: [address] [address] HEMOGLOBIN A1C 6.8 H 4.0-5.6 Apr 25, 2024 07:51 AM [place] MICROALBUMIN CREATININE RATIO PANEL Spe cimen Type: URINE No comment entered. Ordering Provider: TRACY VILLANUEVA Report Released Date/Time: Feb 13, 2024 02:36 PM Reporting Lab: [address] [address] Performing Lab: [address] [address] MICROALBUMIN/C REATININE RATIO 16.0 mg/g 0-29.9 MICROALBUMIN,Q UANTITATIVE 2.3 mg/dL RR UNAVAIL CREATININE URINE 143.92 mg/dL Apr 25, 2024 07:51 AM [place] BASIC METABOLIC PANEL (non-fasting) Spe cimen Type: SERUM No comment entered. Ordering Provider: TRACY VILLANUEVA Report Released Date/Time: Feb 13, 2024 02:36 PM Reporting Lab: [address] [address] Performing Lab: [address] [address] UREA NITROGEN 15 mg/dL 7-25 GLUCOSE 173 mg/dL H 65-100 SODIUM 133 mmol/L L 135-145 POTASSIUM 4.2 mmol/L 3.5-5.0 CHLORIDE 100 mmol/L 100-110 CO2 22 meq/L 20-30 CREATININE, Serum 0.74 mg/dL 0.50-1.40 eGFR(CKD-EPI 2020) 89 mL/min >60 Apr 15, 2024 08:39 AM [place] HEMOGLOBIN A1C PANEL Specimen Type: BLOOD Comment: [...] Apr 09, 2024 09:19 AM Reporting Lab: [address] [address] Performing Lab: [address] [address] HEMOGLOBIN A1C 6.3 H 4.0-5.6 Apr 15, 2024 08:39 AM [place] LIPID PANEL FASTING Specimen Type: SERUM No comment entered. Ordering Provider: TRACY VILLANUEVA Report Released Date/Time: Apr 09, 2024 09:19 AM Reporting Lab: [address] [address] Performing Lab: [address] [address] CHOLESTEROL 137 mg/dL TRIGLYCERIDE 63 mg/dL 0-150 LDL calculated 63 mg/dL 0-129 CHOL/HDL 2.2 HDL CHOLESTEROL 61 mg/dL H 40-60 Apr 15, 2024 08:39 AM [place] LIVER FUNCTION Specimen Type: SERUM No comment entered. Ordering Provider: TRACY VILLANUEVA Report Released Date/Time: Apr 09, 2024 09:19 AM Reporting Lab: [address] [address] Performing Lab: [address] [address] PROTEIN,TOTAL 7.3 g/dL 6.0-8.3 ALBUMIN 4.5 g/dL 3.5-5.0 ALKALINE PHOSPHATASE 62 U/L 40-150 AST 35 U/L H 5-34 ALT 27 U/L BILIRUBIN, TOTAL 2.5 mg/dL H 0.2-1.2 BILIRUBIN, DIRECT 0.7 mg/dL H 0-0.5 Apr 15, 2024 08:39 AM [place] BASIC METABOLIC PANEL (fasting) Specime n Type: SERUM No comment entered. Ordering Provider: TRACY VILLANUEVA Report Released Date/Time: Apr 09, 2024 09:19 AM Reporting Lab: [address] [address] Performing Lab: [address] [address] UREA NITROGEN 9 mg/dL 7-25 GLUCOSE 159 mg/dL H 65-100 SODIUM 116 mmol/L LL 135-145 POTASSIUM 3.4 mmol/L L 3.5-5.0 CHLORIDE 81 mmol/L L 100-110 CO2 23 meq/L 20-30 CREATININE, Serum 0.69 mg/dL 0.50-1.40 eGFR(CKD-EPI 2020) >90 mL/min >60 Apr 15, 2024 08:39 AM [place] MICROALBUMIN CREATININE RATIO PANEL Spe cimen Type: URINE No comment entered. Ordering Provider: TRACY VILLANUEVA Report Released Date/Time: Apr 09, 2024 09:19 AM Reporting Lab: [address] [address] Performing Lab: [address] [address] MICROALBUMIN/C REATININE RATIO 83.0 mg/g H 0-29.9 MICROALBUMIN,Q UANTITATIVE 16.8 mg/dL RR UNAVAIL CREATININE URINE 202.40 mg/dL Apr 15, 2024 08:39 AM [place] VITAMIN D (25-OH) Specimen Type: SERUM No comment entered. Ordering Provider: TRACY VILLANUEVA Report Released Date/Time: Apr 09, 2024 09:19 AM Reporting Lab: [address] [address] Performing Lab: [address] [address] VITAMIN D (25-OH) 49 ng/mL 20-50 Apr 15, 2024 08:39 AM [place] CBC Specimen Type: BLOOD Comment: MCHC >36, SPECIMEN 1+ ICTERIC, QNS FOR PLASMA REPLACEMENT INTERPRET RESULTS WITH CAUTION, SUGGEST PROPER REDRAW SHORT DRAW Ordering Provider: TRACY VILLANUEVA Report Released Date/Time: Apr 09, 2024 09:19 AM Reporting Lab: [address] [address] Performing Lab: [address] [address] WBC 8.70 10*3/uL 4.50-11.00 RBC 4.75 10*6/uL [...] ity December 25, 2023 09:00 AM VA-TOBACCO USE [place] 30 MIN OF WAKE UP [place] Tobacco Use History This section includes a history of the smoking, or tobacco-related health factors, that were collected on or before the date of the Encounter. The data comes from the [place] facility where the Encounter took place. Date/Time Smoking Status/Tobacco Use Comment F acility December 25, 2023 09:00 AM VA-TOBACCO USE ADVICE [place] December 25, 2023 09:00 AM VA-TOBACCO USE PRESS OFFICER NO [place] December 25, 2023 09:00 AM VA-TOBACCO USE MED NO [place] December 25, 2023 09:00 AM VA-TOBACCO USE WI 30 MIN OF WAKE UP [place] December 25, 2023 09:00 AM VA-TOBACCO USER EVERY DAY [place] Advance Directives: All historical and current Section [...] Apr 10, 2023 ADVANCE DIRECTIVE ESSIE STARK [place] [facility] Apr 19, 2007 ADVANCE DIRECTIVE VICTORIA JOHNSON [facility] Encounter Notes: All associated encounter notes This section contains the clinical notes associated to the Encounter. Date/Time Encounter Note(s) Provider Source Apr 26, 2024 11:03 AM PHARMACY CONSULT: LOCAL TITLE: CONSULT REPORT/PHARMACY STANDARD TITLE: PHARMACY CONSULT DATE OF NOTE: APR 26, 2024@11:03 ENTRY DATE: APR 26, 2024@11:03:16 AUTHOR: RONALD KNUTSON COSIGNER: URGENCY: STATUS: COMPLETED Patient Name: GUSTAVO ARAMBULA SR was seen via F2F for initial visit for diabetes management treatment. : Oct Age: 83 Sex: MALE Race: WHITE Subjective: Pt presents w/ his son who is also his lining baster. Pt states he was hospitalized last week for critical NA level. Son suspects it was caused by increase in dose of HCTZ. Pt has a strong FH of DM. He was referred to this clinic due to recently elevated A1C. Target Goals: A1C: 7%; FB-130 mg/dL; 2HRS PP <180mg/dL. Allergies: GEMFIBROZIL, LISINOPRIL PERTINENT INFORMATION: Active problems - Computerized Problem List is [...] 19. Disorder of lumbar disc (SNOMED CT 347803573) 20. Depression (SNOMED CT 74435360) 21. Dry Eye Syndromes * 22. 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 Localised, primary osteoarthritis 24. Prostate, Malign Neoplasm 25. Cataract, Cortical (Senile) 26. 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 Mixed hyperlipidaemia 28. Benign essential hypertension 29. POLYPS, COLON/LG BOWEL (BENIGN MAEGAN 30. Tobacco use (SNOMED CT 950093897) Objective: Diabetes Medication Regimen: - metform SA 1500 mg daily Previous DM Medications: - ? Adherence: Oral meds: off and on Insulin: denies missed doses Labs: HEMOGLOBIN A1C TREND Collection DT Spec HGBA1c 04/25/2024 07:51 BLOOD 6.8 H 04/15/2024 08:39 BLOOD 6.3 H 12/25/2023 09:26 BLOOD 7.7 H 09/01/2023 10:29 BLOOD 6.7 H 12/14/2022 07:54 BLOOD 6.4 H CBC TREND Collection DT Spec WBC RBC HGB HCT MCV MCH PLT 04/15/2024 08:39 BLOOD 8.70 4.75 13.9 36.1 L 76.0 L 29.3 227 12/25/2023 09:26 BLOOD 9.74 4.50 12.5 L 36.2 L 80.4 L 27.8 275 09/05/2023 10:56 BLOOD 5.66 4.25 12.1 L 35.5 L 83.5 28.5 295 09/01/2023 10:29 BLOOD 8.35 4.17 L 12.0 L 35.3 L 84.7 28.8 305 12/14/2022 07:54 BLOOD 7.45 4.04 L 12.4 L 35.1 L 86.9 30.7 186 CHEM 7 TREND LAB CUMULATIVE SELECTED Collection DT Spec GLUCOSE BUN CREATIN Sodium K+/Pot CL CO2 04/25/2024 07:51 SERUM 173 H 15 0.74 133 L 4.2 100 22 04/15/2024 08:39 SERUM 159 H 9 0.69 116 L* 3.4 L 81 L 23 12/25/2023 09:26 SERUM 240 H 12 0.78 135 4.2 102 24 09/01/2023 10:29 SERUM 135 H 10 0.73 138 3.9 101 27 02/23/2023 08:48 SERUM 9 0.73 Collection DT Spec eGFR 07/07/2009 08:08 SERUM >60 11/25/2008 08:25 SERUM >60 08/07/2008 08:25 SERUM >60 06/23/2008 08:21 SERUM >60 04/09/2008 08:20 SERUM >60 LAB CUMULATIVE SELECTED 2 No selection items chosen for this component. CHEM 7 Results Collection DT Spec Sodium K+/Pot CL CO2 GLUCOSE BUN eGFR 04/25/2024 07:51 SERUM 133 L 4.2 100 22 173 H 15 04/15/2024 08:39 SERUM 116 L* 3.4 L 81 L 23 159 H 9 12/25/2023 09:26 SERUM 135 4.2 102 24 240 H 12 09/01/2023 10:29 SERUM 138 3.9 101 27 135 H 10 02/23/2023 08:48 SERUM 9 12/14/2022 07:54 SERUM 134 L 4.2 97 L 26 233 H 12 07/20/2022 07:36 SERUM 135 4.0 100 24 145 H 9 07/13/2022 10:38 SERUM 131 L 3.9 100 19 L 137 H 10 07/08/2022 07:29 SERUM 133 L 4.2 98 L 24 133 H 10 03/04/2022 14:22 SERUM 135 3.9 98 L 23 176 H 8 11/17/2021 10:47 SERUM 128 L 3.7 92 L 23 132 H 11 10/14/2013 07:07 SERUM 136 4.1 100 25 116 H 12 09/02/2013 07:03 SERUM 137 3.9 100 28 124 H 13 05/02/2013 07:05 SERUM 133 L 4.2 98 L 29 121 H 11 10/11/2012 07:20 SERUM 134 L 4.5 98 L 29 124 H 13 07/30/2012 07:11 SERUM 136 4.3 99 L 28 123 H 13 12/09/2011 07:27 SERUM 136 4.3 99 L 28 117 H 11 11/21/2011 08:04 SERUM 138 4.6 100 28 115 H 11 09/02/2011 07:17 SERUM 138 4.3 102 26 111 H 13 05/02/2011 07:03 SERUM 139 4.2 103 29 118 H 13 09/20/2010 07:31 SERUM 141 4.4 105 26 109 H 14 03/11/2010 07:42 SERUM 141 4.5 106 25 109 H 14 07/07/2009 08:08 SERUM 142 4.7 104 26 121 H 14 >60 11/25/2008 08:25 SERUM 140 4.1 105 23 113 H 15 >60 08/07/2008 08:25 SERUM 139 4.0 104 22 116 H 19 >60 06/23/2008 08:21 SERUM 141 4.3 106 26 112 H 21 >60 04/09/2008 08:20 SERUM 143 4.5 105 27 112 H 15 >60 12/18/2007 08:00 SERUM 140 4.2 105 28 107 H 17 >60 09/07/2007 10:32 SERUM 136 H 09/07/2007 08:26 SERUM 140 4.0 107 23 15 >60 09/05/2006 08:09 SERUM 141 4.2 105 25 107 H 17 >60 03/28/2006 10:52 SERUM 140 4.6 104 25 99 13 >60 03/09/2006 09:34 SERUM 142 4.6 106 28 115 H 11 >60 12/27/2005 08:21 SERUM 142 4.7 108 25 109 H 15 >60 09/02/2005 07:51 SERUM 140 4.6 104 31 H 112 H 18 05/06/2005 07:27 SERUM 141 4.2 107 28 112 H 14 12/06/2004 08:37 SERUM 140 4.8 106 29 107 H 16 08/30/2004 08:14 SERUM 140 4.4 106 27 106 H 23 05/24/2004 08:00 SERUM 139 4.8 103 25 120 H 14 12/16/2003 08:16 SERUM 141 4.7 105 28 115 H 18 LIPID PANEL TREND Collection DT Spec CHOL HDL CHO/HDL LDL-d LDL-c TRIG 04/15/2024 08:39 SERUM 137 61 H 2.2 63 63 09/01/2023 10:29 SERUM 133 43 3.1 75 73 12/14/2022 07:54 SERUM 143 46 3.1 73 122 07/13/2022 10:38 SERUM 218 H 58 3.8 121 H Reflex to dLDL 314 H 11/17/2021 10:47 SERUM 167 61 H 2.7 61 226 H THYROID PANEL Collection DT Specimen Test Name Result Units Ref Range 12/14/2022 07:54 SERUM TSH 3.25 uIU/mL 0.35 - 5.00 VITAMIN D 25-OH Collection DT Specimen Test Name Result Units Ref Range 04/15/2024 08:39 SERUM VITAMIN D (25-OH) 49 ng/mL 20 - 50 SrCr (last 6 weeks): CREATININE-EGFR 04/25/24 07:51 0.74 CRCL IBW: CrCl(est): 53.3 mL/min (Creat:0.74 04/25/24) CRCL ACT: 46.88 mL/min CRCL ADJ: 53.3 mL/min (04/25/24) Vitals: Weight (BMI): 132.6 lb [60.15 kg] (03/11/2024 08:59) Height: 60.3 in [153.2 cm] (03/11/2024 08:59) BMI: 25.7 Active and Recently Outpatient Medications (including Supplies): Active Outpatient Medications Status Active Outpatient Medications (including Supplies): ACETAMINOPHEN 500MG [...] (REMOVE PATCH BEFORE APPLYING A NEW PATCH) CITALOPRAM HYDROBROMIDE 20MG TAB TAKE ONE-HALF TABLET BY ACTIVE MOUTH ONCE DAILY FOR 4 DAYS, THEN TAKE ONE TABLET ONCE DAILY FOR DEPRESSION AND ANXIETY DEPEND UNDERWEAR,MAXIMUM,MEN SM/MED USE 1 BRIEF ACTIVE DIRECTED TWICE DAILY FOR INCONTINENCE FLUTICAS 500/SALMETEROL 50 INHL DISK 60 INHALE 1 PUFF BY ACTIVE MOUTH TWICE DAILY - RINSE MOUTH AFTER USE HYDROCHLOROTHIAZIDE 25MG TAB TAKE ONE-HALF TABLET BY MOUTH ACTIVE ONCE DAILY FOR HIGH BLOOD PRESSURE HYDROCORTISONE 1% OINT APPLY THIN LAYER TOPICALLY TWICE ACTIVE DAILY NEEDED FOR ATOPIC DERMATITIS MELATONIN 5MG CAP/TAB TAKE ONE CAPSULE/TABLET BY MOUTH AT ACTIVE BEDTIME FOR INSOMNIA METFORMIN HCL 750MG 24HR SA TAB TAKE TWO TABLETS BY MOUTH ACTIVE ONCE DAILY FOR TYPE 2 DIABETES MELLITUS NICOTINE 7MG/24HR PATCH APPLY 1 PATCH TO [...] EVERY ACTIVE MORNING 30 MINUTES BEFORE BREAKFAST QUETIAPINE FUMARATE 25MG TAB TAKE ONE TABLET BY MOUTH AT ACTIVE BEDTIME SLEEP, DEPRESSION, ANXIETY SENNOSIDES 8.6MG TAB TAKE ONE TABLET BY MOUTH TWICE DAILY ACTIVE NEEDED 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) USE CUTTER DIRECTED BY ACTIVE PROVIDER TO SPLIT TABLETS TIOTROPIUM 2.5MCG/ACTUAT 60D ORAL INHL INHALE 2 PUFFS BY ACTIVE MOUTH ONCE DAILY TRIAMCINOLONE ACETONIDE 0.1% CREAM APPLY A THIN LAYER HOLD TOPICALLY EVERY 5 DAYS MEDICATION RECONCILIATION: done BLOOD GLUCOSE MONITORING INFORMATION OBTAINED FROM [facility] S[facility]OR UPLOAD AND SENT TO [facility]ING-SEE SEPARATE NOTE BG numbers obtained from son's log FAsting B 10PM - 12 PM bedtime 30 minutes after meals 160 105 211 159 150 170 140 169 117 136 165 143 189 158 166 157 140 193 146 148 137 237 NUTRITION Pt lives w/ son and pt Diet Patterns: patient eats on avg. x/day: Since release from hospital B:ensure for breakfast L: sandwich D: home made dinner veggie, pork , chicken , beef ; baked potatoe, mashed potatoe ; no rice teetch no bottom dentures ; salads he cannot Snacks:nutrigrain bars Drinks: milk - usually 2 of #8 oz /day , water , willie dana [place] ; lately not too active HYPOGLYCEMIC Events: 0 in the last 2 weeks Hypoglycemia recognition & treatment reviewed: Yes EtOH/Illicit drugs: Alcohol: denies Tobacco: 8 cigaretts/day Other: - Denies personal or fhx thyroid cancer or MENS2 - Denies hx pancreatitis Personal Goals: - Get BG under control weight: -prior to that 165 lbs weight => 126 lbs (04/26/24) * pt lost weight post hospitalization ASSESSMENT/PLAN: Reviewed most recent A1C and BG provided by pt's son. Most wnl and A1C,7% which is appropriate for pt's age. Pt may need post prandial coverage i.e. DPP-IV agent. Offered placement of tosha pro pt and son declined. They would like to defer to the next visit. They have a lot on their plate right now. At this time no changes to medication regimen. Reviewed nutrition w/ pt and son. f/up in August. DIABETES A1c is below a goal of <7% - Medication management Diabetes - metform SA 1500 mg daily - [facility]ed [facility] - Monitor for s/sx hypoglycemia and contact clinic if BG consistently <70mg/dL - Healthy dietary and lifestyle modifications encouraged - - Repeat A1c: prior to pcp appt d/c hctz increased from 12.5 to 25 mg critical sodium levels checking log of BP : last week discharged ; pt's son is getting back to monitoring pt's BP on regular basis. 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 No barriers; Patient understands and agrees to current treatment plan. If he has any questions, concerns, or changes in current health status he will call or come [facility] to the [facility]. FUTURE APPOINTMENTS: 04/30/2024 08:30 CWM/NO/VVC/MHC/DANIELS1 05/01/2024 11:00 CWM/SO/NUTRITION1 05/14/2024 11:30 CWM/SO/PACT 7 08/05/2024 09:45 CWM/NO/VVC/PAIN MD CLINIC DM type is :T2D Length of Visit: 45 minutes PBM PharmD Pharmacotherapy Rem V12: PHARMACIST INTERVENTIONS: TYPE 2 DIABETES MELLITUS Medication monitoring, no dosage change required, continue to monitor and assess /reginaldo/ RONALD KNUTSON CLINICAL SENIOR SALES ADMINISTRATOR Signed: 04/30/2024 13:18 Receipt Acknowledged By: 04/30/2024 14:02 /reginaldo/ DARLENE BOX CERTIFIED NURSE PRACTITIONER RONALD KNUTSONFIELD
--- OUTSIDE RECORDS SUMMARY | 2024-08-16 09:34 | XMS_ITS | Encounter Summary ---
Author Name [facility] [facility] [place] [facility] [place] Address [address] [place] [address] Care Team Providers Care Ditch Cleaner Name Role Phone TRACY VILLANUEVA Primary Care [...] PHI MEDEX BRONZ E December 19, 2013 [id number] GUSTAVO GUZMAN SR PATIENT [employer] MEDICARE SUPPLEMEN PHI MEDIC ARE SUPPL EMENT Jul 21, 2007 NONE [id number] Edgar GUZMAN [place]IENT [place] SUPPLEMEN PHI MEDEX BRONZ E December 19, 2013 [id number] [phone] GUSTAVO GUZMAN SR PATIENT [place] MEDICARE SUPPLEMEN PHI MEDEX BRONZ E December 19, 2013 [id number] [phone] Edgar GUZMAN PATIENT MEDICARE (WNR) MEDICARE () PART A Oct 19, 2004 PART A [id number] [phone] Edgar GUZMANN PATIENT MEDICARE (WNR) MEDICARE () PART B Oct 19, 2004 PART B [id number] Edgar GUZMAN [place] PATIENT MEDICARE ([place]) MEDICARE () PART A Oct 19, 2004 PART A [id number] Edgar GUZMANN PATIENT MEDICARE (WNR) MEDICARE () PART B Oct 19, 2004 PART B [id number] Edgar GUZMANN PATIENT MEDICARE (WNR) MEDICARE () PART A Oct 19, 2004 PART A [id number] [phone] Edgar GUZMAN [place] PATIENT MEDICARE ([place]) MEDICARE () PART B Oct 19, 2004 PART B [id number] Edgar GUZMANN PATIENT MEDICARE (WNR) MEDICARE () PART A Oct 19, 2004 PART A [id number] [phone] Edgar GUZMAN PATIENT MEDICARE (WNR) MEDICARE () PART A Oct 19, 2004 PART A [id number] Edgar GUZMANN PATIENT MEDICARE (WNR) MEDICARE () PART B Oct 19, 2004 PART B [id number] Edgar GUZMANN PATIENT MEDICARE (WNR) MEDICARE () PART B Oct 19, 2004 PART B [id number] Edgar GUZMANN PATIENT Selected Encounter This section includes the information on record at [place] for the Encounter. Date/Time Encounter Type Encounter Description Reason Pro vider Source Apr 23, 2024 01:22 PM Outpatient Encounter PRIMARY CARE/MEDICINE IHE Encounter Template Text not used by [place] Plan of Treatment: Future Appointments (+ 6 [...] - MEDICINE [facility] [place] [facility] Apr 30, 2024 08:30 AM AMBULATORY - PS[facility]CHIAT[facility] [place] [facility] May 01, 2024 11:00 AM AMBULATORY - NONE [facility] [place] [facility] May 14, 2024 11:30 AM [facility]ATORY - MEDICINE [facility] May 31, 2024 11:00 AM AMBULATORY - REHAB MEDICIN E [facility] [place] [facility] May 31, 2024 12:00 PM AMBULATORY - MEDICINE [facility] [place] [facility] Jun 10, 2024 10:00 AM AMBULATORY - MEDICINE [facility] Jun 11, 2024 09:30 AM AMBULATORY - PSYCHIATRY [facility] [place] [facility] Jun 13, 2024 10:00 AM AMBULATORY - MEDICINE [facility] [place] [facility] Jun 19, 2024 11:00 AM AMBULATORY - NONE [facility] [place] [facility] Jun 21, 2024 09:00 AM AMBULATORY - MEDICINE [facility] [place] [facility] Jun 21, 2024 09:15 AM AMBULATORY - MEDICINE [facility] [place] [facility] Jun 21, 2024 09:30 AM AMBULATORY - MEDICINE [facility] [place] [facility] Jun 26, 2024 08:00 AM AMBULATORY - MEDICINE [facility] [place] [facility] Jul 05, 2024 09:00 AM AMBULATORY - REHAB MEDICIN E [facility] [place] [facility] Jul 30, 2024 09:30 AM AMBULATORY - PSYCHIATRY [facility] [place] [facility] Aug 05, 2024 09:45 AM AMBULATORY - MEDICINE [facility] [place] [facility] Sep 06, 2024 11:00 AM AMBULATORY - MEDICINE [facility] [place] [facility] Sep 26, 2024 12:30 PM [facility] Oct 08, 2024 09:30 AM AMBULATORY - PSYCHIATRY [facility] Active, Pending, and Scheduled Orders This section includes a listing of several types of active, pending, and scheduled orders, including clinic medications orders, diagnostic test orders, procedure orders and consult orders; where the start date of the order is 45 days before the date of the Encounter or 45 days after the date of theEncounter. The data comes from all [place] treatment facilities. Test Date/Time Test Type Test Details Facility Name May 15, 2024 08:08 AM Consult Order COMMUNITY CARE-PULMONARY Cons Management Trainee Marketing[facility] [place] Lab Results: +/- 30 days of the encounter This section includes the Chemistry and Hematology Lab Results on record with [place] for the patient. Radiology Reports and Pathology Reports are provided separately, in subsequent sections. Lab Results This section contains the Chemistry/Hematology Results that were resulted 30 days before or 30 daysafter the date of the Encounter. Date/Time Source Result Type Result - Unit Interpretation Reference Range Comment Apr 25, 2024 07:51 AM [place] HEMOGLOBIN A1C PANEL Specimen Type: BLOOD Comment: [...] Feb 13, 2024 02:36 PM Reporting Lab: [address] [address] Performing Lab: [address] [address] HEMOGLOBIN A1C 6.8 H 4.0-5.6 Apr 25, 2024 07:51 AM [place] MICROALBUMIN CREATININE RATIO PANEL Spe cimen Type: URINE No comment entered. Ordering Provider: TRACY VILLANUEVA Report Released Date/Time: Feb 13, 2024 02:36 PM Reporting Lab: [address] [address] Performing Lab: [address] [place] [address] MICROALBUMIN/C REATININE RATIO 16.0 mg/g 0-29.9 MICROALBUMIN,Q UANTITATIVE 2.3 mg/dL RR UNAVAIL CREATININE URINE 143.92 mg/dL Apr 25, 2024 07:51 AM [place] BASIC METABOLIC PANEL (non-fasting) Spe cimen Type: SERUM No comment entered. Ordering Provider: TRACY VILLANUEVA Report Released Date/Time: Feb 13, 2024 02:36 PM Reporting Lab: [address] [address] Performing Lab: [address] [address] UREA NITROGEN 15 mg/dL 7-25 GLUCOSE 173 mg/dL H 65-100 SODIUM 133 mmol/L L 135-145 POTASSIUM 4.2 mmol/L 3.5-5.0 CHLORIDE 100 mmol/L 100-110 CO2 22 meq/L 20-30 CREATININE, Serum 0.74 mg/dL 0.50-1.40 eGFR(CKD-EPI 2020) 89 mL/min >60 Apr 15, 2024 08:39 AM [place] HEMOGLOBIN A1C PANEL Specimen Type: BLOOD Comment: Values obtained from A1C measurements can vary. For atypical A1C assays, a reported value of 7.0 could actually be between 6.72 and 7.28 if measured by a reference method. A reported value of 9.0 could actually be between 8.73 and 9.27. Ref: http://www.ngs p.org/CAPdata. asp Ordering Provider: TRAYC VILLANUEVA Report Released Date/Time: Apr 09, 2024 09:19 AM Reporting Lab: [address] [address] Performing Lab: [address] [address] HEMOGLOBIN A1C 6.3 H 4.0-5.6 Apr 15, 2024 08:39 AM [place] LIPID PANEL FASTING Specimen Type: SERUM No comment entered. Ordering Provider: TRACY VILLANUEVA Report Released Date/Time: Apr 09, 2024 09:19 AM Reporting Lab: [address] [address] Performing [facility]: [facility] [address] [facility] [address] CHOLESTEROL 137 mg/dL TRIGLYCERIDE 63 mg/dL 0-150 LDL calculated 63 mg/dL 0-129 CHOL/HDL 2.2 HDL CHOLESTEROL 61 mg/dL H 40-60 Apr 15, 2024 08:39 AM [place] BASIC METABOLIC PANEL (fasting) Specime n Type: SERUM No comment entered. Ordering Provider: TRACY VILLANUEVA Report Released Date/Time: Apr 09, 2024 09:19 AM Reporting [facility]: [facility] [address] [address] Performing Lab: [address] [address] UREA NITROGEN 9 mg/dL 7-25 GLUCOSE 159 mg/dL H 65-100 SODIUM 116 mmol/L LL 135-145 POTASSIUM 3.4 mmol/L L 3.5-5.0 CHLORIDE 81 mmol/L L 100-110 CO2 23 meq/L 20-30 CREATININE, Serum 0.69 mg/dL 0.50-1.40 eGFR(CKD-EPI 2020) >90 mL/min >60 Apr 15, 2024 08:39 AM [place] MICROALBUMIN CREATININE RATIO PANEL Spe cimen Type: URINE No comment entered. Ordering Provider: TRACY VILLANUEVA Report Released Date/Time: Apr 09, 2024 09:19 AM Reporting Lab: [address] [address] Performing [facility]: [facility] [address] [address] MICROALBUMIN/C REATININE RATIO 83.0 mg/g H 0-29.9 MICROALBUMIN,Q UANTITATIVE 16.8 mg/dL RR UNAVAIL CREATININE URINE 202.40 mg/dL Apr 15, 2024 08:39 AM [place] LIVER FUNCTION Specimen Type: SERUM No comment entered. Ordering Provider: TRACY VILLANUEVA Report Released Date/Time: Apr 09, 2024 09:19 AM Reporting Lab: [facility] [address] [address] Performing Lab: [facility] [address] PROTEIN,TOTAL 7.3 g/dL 6.0-8.3 ALBUMIN 4.5 g/dL 3.5-5.0 ALKALINE PHOSPHATASE 62 U/L 40-150 AST 35 U/L H 5-34 ALT 27 U/L BILIRUBIN, TOTAL 2.5 mg/dL H 0.2-1.2 BILIRUBIN, DIRECT 0.7 mg/dL H 0-0.5 Apr 15, 2024 08:39 AM [place] VITAMIN D (25-OH) Specimen Type: SERUM No comment entered. Ordering Provider: TRACY VILLANUEVA Report Released Date/Time: Apr 09, 2024 09:19 AM Reporting Lab: [address] [address] Performing Lab: [address] [address] VITAMIN D (25-OH) 49 ng/mL 20-50 Apr 15, 2024 08:39 AM [place] CBC Specimen Type: BLOOD Comment: MCHC >36, SPECIMEN 1+ ICTERIC, QNS FOR PLASMA REPLACEMENT INTERPRET RESULTS WITH CAUTION, SUGGEST PROPER REDRAW SHORT DRAW Ordering Provider: TRACY VILLANUEVA Report Released Date/Time: Apr 09, 2024 09:19 AM Reporting Lab: [address] [address] Performing Lab: [address] [address] WBC 8.70 10*3/uL 4.50-11.00 RBC 4.75 10*6/uL [...] took place. Date/Time Current Smoking Status Comment [facility] ity December 25, 2023 09:05 AM VA-TOBACCO NEVER USED [place] [facility] [place] [facility] Tobacco Use History This section includes a history of the smoking, or tobacco-related health factors, that were collected on or before the date of the Encounter. The data comes from the [place] facility where the Encounter took place. 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 NO [facility] [place] [facility] Dec 13, 2022 03:00 PM VA-TOBACCO USE MED NO [facility] [place] [facility] Dec 13, 2022 03:00 PM VA-TOBACCO USER EVERY DAY [facility] [place] [facility] Nov 17, 2021 10:00 AM VA-TOBACCO USE 30 YEARS OR MORE [facility] [place] [facility] Nov 17, 2021 10:00 AM VA-TOBACCO USE ADVICE [facility] [place] [facility] Nov 17, 2021 10:00 AM VA-TOBACCO USE CASINO BEVERAGE SERVER NO [facility] [place] [facility] Nov 17, 2021 10:00 AM VA-TOBACCO USE MED NO [facility] [place] [facility] Nov 17, 2021 10:00 AM VA-TOBACCO USE WI 30 MIN OF WAKEUP [facility] [place] [facility] Nov 17, 2021 10:00 AM VA-TOBACCO USER EVERY DAY [facility] [place] [facility] Oct 14, 2013 12:55 PM V1-PT NOT INTERESTED IN QUIT TOBACCO USE [facility] [place] [facility] May 07, 2013 05:04 PM CURRENT SMOKER trying to stop [facility] May 07, 2013 05:04 PM V1-PT DECLINES REF TO TOBACCO CESS [facility] May 07, 2013 05:04 PM V1-PT DECLINES TOBACCO CESSATION MEDS [facility] May 07, 2013 05:04 PM V1-PT READY TO QUIT TOBACCO USE [facility] Dec 03, 2012 08:23 AM V1-PT DECLINES REF TO TOBACCO CESS PRGM [facility] Dec 03, 2012 08:23 AM V1-PT DECLINES TOBACCO CESSATION MEDS [facility] Dec 03, 2012 08:23 AM V1-PT THINKING ABOUT QUIT TOBACCO USE [facility] Jun 05, 2012 08:45 AM CURRENT SMOKER 1/2ppd [facility] Jun 05, 2012 08:45 AM V1-PT DECLINES REF TO TOBACCO CESS [facility] Jun 05, 2012 08:45 AM V1-PT THINKING ABOUT QUIT TOBACCO USE [facility] Jun 05, 2012 08:45 AM V1-TOBACCO CESS MEDS NOT PRESCRIBED Vet wants to talk to his provider-He is nervous about taking meds to quit- but he is interested in quitting [facility] Nov 25, 2011 09:14 AM V1-PT DECLINES REF TO TOBACCO CESS [facility] Nov 25, 2011 09:14 AM V1-PT DECLINES TOBACCO CESSATION MEDS [facility] Nov 25, 2011 09:14 AM V1-PT THINKING ABOUT QUIT TOBACCO [facility] May 06, 2011 01:02 PM CURRENT SMOKER [facility] May 06, 2011 01:02 PM V1-PT DECLINES TOBACCO CESSATION MEDS [facility] May 06, 2011 01:02 PM V1-PT NOT INTERESTED IN QUIT TOBACCO USE [facility] Sep 24, 2010 08:51 AM V1-PT DECLINES TOBACCO CESSATION MEDS [facility] [place] [facility] Sep 24, 2010 08:51 AM V1-PT THINKING ABOUT QUIT TOBACCO USE [facility] [place] [facility] Mar 22, 2010 07:58 AM CURRENT SMOKER 1/2 ppd [facility] [place] [facility] Feb 25, 2009 12:05 PM QUIT TOBACCO USE IN PAST YEAR [facility] [place] [facility] Aug 26, 2008 09:28 AM CURRENT SMOKER 1/2 ppd [facility] [place] [facility] Aug 26, 2008 09:28 AM V1-PT DECLINES REF TO TOBACCO CESS PRGM [facility] [place] [facility] Aug 26, 2008 09:28 AM V1-PT READY TO QUIT TOBACCO USE [facility] [place] [facility] Dec 19, 2007 10:08 AM V1-PT DECLINES REF TO TOBACCO CESS [place]GM [place] [facility] [place] [facility] Dec 19, 2007 10:08 AM V1-PT DECLINES TOBACCO CESSATION MEDS [facility] [place] [facility] Dec 19, 2007 10:08 AM V1-PT THINKING ABOUT QUIT TOBACCO USE [facility] [place] [facility] Sep 11, 2007 11:10 AM CURRENT SMOKER [facility] [place] [facility] Sep 11, 2007 11:10 AM V1-PT DECLINES REF TO TOBACCO CESS PRGM [place] [facility] [place] [facility] Sep 11, 2007 11:10 AM V1-PT DECLINES TOBACCO CESSATION MEDS [facility] [place] [facility] Sep 11, 2007 11:10 AM V1-PT THINKING ABOUT QUIT TOBACCO USE [facility] [place] [facility] Feb 13, 2007 01:46 PM V1-PT DECLINES REF TO TOBACCO CESS PRGM [place] [facility] [place] [facility] Feb 13, 2007 01:46 PM V1-PT DECLINES TOBACCO CESSATION MEDS [facility] [place] [facility] Feb 13, 2007 01:46 PM V1-PT THINKING ABOUT QUIT TOBACCO USE [facility] [place] [facility] Oct 02, 2006 08:28 AM QUIT TOBACCO USE IN PAST YEAR 3 months ago [facility] [place] [facility] Aug 19, 2005 08:33 AM QUIT TOBACCO USE IN PAST YEAR nonsmoker [facility] Sep 21, 2004 09:54 AM CUR[facility]MOKER [facility] Sep 07, 2004 08:07 AM CURRENT SMOKER [facility] Sep 15, 2003 11:21 AM CURRENT SMOKER smokes one pk day [facility] Jul 23, 2003 01:57 PM CURRENT SMOKER [facility] Advance Directives: All historical and [...] Apr 10, 2023 ADVANCE DIRECTIVE ESSIE STARK [facility] Apr 19, 2007 ADVANCE DIRECTIVE VICTORIA JOHNSON [facility] Encounter Notes: All associated encounter notes This section contains the clinical notes associated to the Encounter. Date/Time Encounter Note(s) Provider Source Apr 24, 2024 08:12 AM ADDENDUM: LOCAL TITLE: Addendum STANDARD TITLE: ADDENDUM DATE OF NOTE: APR 24, 2024@08:12:53 ENTRY DATE: APR 24, 2024@08:12:54 AUTHOR: TRACY VILLANUEVA EXP COSIGNER: URGENCY: STATUS: COMPLETED Please notify patient/son that f/u labs are ordered, he can come in during business hours and have these drawn. /reginaldo/ DARLENE BOX CERTIFIED NURSE PRACTITIONER Signed: 04/24/2024 08:13 Receipt Acknowledged By: 04/24/2024 13:33 /reginaldo/ ZACHARY ABBOTT RN REGISTERED NURSE --- Original Document --- 04/23/24 PRIMARY CARE SECURE MESSAGING: ------Original Message -- Sent: 04/23/2024 01:05 PM ET From: GUSTAVO GUZMAN To: [facility] Subject: General:Labs Good afternoon, I, Gustavo Guzman Jr, am inquiring about labs (Sodium) for my father, Gustavo Guzman Sr. I rescheduled his primary appointment for 05/14, but was curious about labs before then. This is so we can confirm his Sodium has stayed in check after the Hydrochlorothiazide was discontinued at the hospital. Thank you, Gustavo Guzman Jr. /reginaldo/ RABIA MANN ADVANCED SINGLE FOLD MACHINE OPERATOR Signed: 04/23/2024 13:22 Receipt Acknowledged By: 04/24/2024 08:12 /reginaldo/ DARLENE BOX CERTIFIED NURSE PRACTITIONER 04/24/2024 13:31 /reginaldo/ ZACHARY ABBOTT RN REGISTERED NURSE 04/24/2024 ADDENDUM STATUS: COMPLETED [facility] message sent to [place] w/the above message attached. /reginaldo/ ZACHARY ABBOTT RN REGISTERED NURSE Signed: 04/24/2024 13:32 TRACY VILLANUEVA [place] [facility] [place] [facility] Apr 23, 2024 01:22 PM PRIMARY CARE SECURE MESSAGING: LOCAL TITLE: PRIMARY CARE SECURE MESSAGING STANDARD TITLE: PRIMARY CARE SECURE MESSAGING DATE OF NOTE: APR 23, 2024@13:22 ENTRY DATE: APR 23, 2024@13:22:35 AUTHOR: RABIA MANN EXP COSIGNER: URGENCY: STATUS: COMPLETED PRIMARY CARE SECURE MESSAGING Has ADDENDA ------Original Message -- Sent: 04/23/2024 01:05 PM ET From: GUSTAVO GUZMAN To: [facility] Subject: General:Labs Good afternoon, I, Gustavo Guzman Jr, am inquiring about labs (Sodium) for my father, Gustavo Guzman Sr. I rescheduled his primary appointment for 05/14, but was curious about labs before then. This is so we can confirm his Sodium has stayed in check after the Hydrochlorothiazide was discontinued at the hospital. Thank you, Gustavo Guzman . /reginaldo/ RABIA MANN ADVANCED SINGLE FOLD MACHINE OPERATOR Signed: 04/23/2024 13:22 Receipt Acknowledged By: 04/24/2024 08:12 /reginaldo/ DARLENE BOX CERTIFIED NURSE PRACTITIONER 04/24/2024 13:31 /reginaldo/ ZACHARY ABBOTT RN REGISTERED NURSE 04/24/2024 ADDENDUM STATUS: COMPLETED Please notify patient/son that f/u labs are ordered, he can come in during business hours and have these drawn. /DARLENE Lomas CERTIFIED NURSE PRACTITIONER Signed: 04/24/2024 08:13 Receipt Acknowledged By: 04/24/2024 13:33 /reginaldo/ ZACHARY ABBOTT RN REGISTERED NURSE 04/24/2024 ADDENDUM STATUS: COMPLETED [facility] message sent to w/the above message attached. /chavez ABBOTT RN REGISTERED NURSE Signed: 04/24/2024 13:32 RABIA MANN [facility]
--- OUTSIDE RECORDS SUMMARY | 2024-08-16 09:34 | XMS_ITS | Encounter Summary ---
Author Name [facility] [place] [facility] [place] [facility] [place] Address [address] [place] [address] Care Team Providers Care Telephone Answering Service Operator Name Role Phone TRACY VILLANUEVA Primary [...] PHI MEDEX BRONZ E December 19, 2013 [id number] [phone] GUSTAVO GUZMAN SR PATIENT [employer] MEDICARE SUPPLEMEN PHI MEDIC ARE SUPPL EMENT Jul 21, 2007 NONE [id number] [phone] Edgar GUZMAN PATIENT [place] MED[place] SUPPLEMEN PHI MEDEX BRONZ E December 19, 2013 [id number] GUSTAVO GUZMAN SR PATIENT [place] MEDICARE SUPPLEMEN PHI MEDEX BRONZ E December 19, 2013 [id number] [phone] Edgar GUZMANN PATIENT MEDICARE (WNR) MEDICARE () PART A Oct 19, 2004 PART A [id number] Edgar GUZMAN [place] PAT[place] MEDIC[place] ([place]) MEDICARE (M) PART B Oct 19, 2004 PART B [id number] Edgar GUZMAN [place] PAT[place] MEDICARE ([place]) MEDICARE () PART A Oct 19, 2004 PART A [id number] Edgar GUZMAN [place] PAT[place] MEDICARE ([place]) MEDICARE () PART B Oct 19, 2004 PART B [id number] [phone] Edgar GUZMAN [place] PAT[place] MEDICARE ([place]) MEDICARE () PART A Oct 19, 2004 PART A [id number] Edgar GUZMAN [place] PAT[place]IC[place] ([place]) MEDICARE () PART B Oct 19, 2004 PART B [id number] Edgar GUZMAN [place] PAT[place] MEDICARE ([place]) MEDICARE () PART A Oct 19, 2004 PART A [id number] Edgar GUZMANN PATIENT MEDICARE (WNR) MEDICARE () PART A Oct 19, 2004 PART A [id number] Edgar GUZMAN [place] PAT[place]IC[place] ([place]) MEDICARE () PART B Oct 19, 2004 PART B [id number] Edgar GUZMANN PATIENT MEDICARE (WNR) MEDICARE () PART B Oct 19, 2004 PART B [id number] [phone] Edgar GUZMANN PATIENT Selected Encounter This section includes the information on record at [place] for the Encounter. Date/Time Encounter Type Encounter Description Reason Provider Source Apr 24, 2024 01:32 PM Outpatient Encounter PRIMARY CARE/MEDICINE SANJEEV ABBOTT Encounter Template Text not used by [place] Plan of Treatment: Future Appointments (+ 6 months) and Future Tests (+/- 45 days) The Plan of Treatment section includes [facility] This section includes future appointments [...] [facility] [place] [facility] Jun 21, 2024 09:15 AM AMBULATORY - MEDICINE [facility] [place] [facility] Jun 21, 2024 09:30 AM AMBULATORY - MEDICINE [facility] [place] [facility] Jun 26, 2024 08:00 AM AMBULATORY - MEDICINE [facility] [place] [facility] Jul 05, 2024 09:00 AM AMBULATORY - REHAB MEDICIN E [facility] [place] [facility] Jul 30, 2024 09:30 AM AMBULATORY - PSYCHIATRY [facility] [place] [facility] Aug 05, 2024 09:45 AM AMBULATORY - MEDICINE [facility] [place] [facility] Sep 06, 2024 11:00 AM AMBULATORY - MEDICINE [facility] [place] [facility] Sep 26, 2024 12:30 PM AMBULATORY - MEDICINE [facility] Oct 08, 2024 09:30 AM AMBULATORY - PSYCHIATRY [facility] Active, Pending, and Scheduled Orders This [...] data comes from all [place] treatment facilities. Test Date/Time Test Type Test Details Facility Name May 15, 2024 08:08 AM Consult Order COMMUNITY CARE-PULMONARY Cons Medical Doctor [facility] Lab Results: +/- 30 days of the [...] Range Comment Apr 25, 2024 07:51 AM [facility] HEMOGLOBIN A1C PANEL Specimen Type: BLOOD Comment: [...] Feb 13, 2024 02:36 PM Reporting Lab: [facility] [address] [address] Performing Lab: [address] [address] HEMOGLOBIN A1C 6.8 H 4.0-5.6 Apr 25, 2024 07:51 AM [facility] MICROALBUMIN CREATININE RATIO PANEL Spe cimen Type: URINE No comment entered. Ordering Provider: TRACY VILLANUEVA Report Released Date/Time: Feb 13, 2024 02:36 PM Reporting Lab: [address] [address] Performing Lab: [facility] [address] [facility] [address] MICROALBUMIN/C REATININE RATIO 16.0 mg/g 0-29.9 MICROALBUMIN,Q UANTITATIVE 2.3 mg/dL RR UNAVAIL CREATININE URINE 143.92 mg/dL Apr 25, 2024 07:51 AM [facility] BASIC METABOLIC PANEL (non-fasting) Spe cimen Type: SERUM No comment entered. Ordering Provider: TRACY VILLANUEVA Report Released Date/Time: Feb 13, 2024 02:36 PM Reporting Lab: [address] [address] Performing Lab: [address] [address] UREA NITROGEN 15 mg/dL 7-25 GLUCOSE 173 mg/dL H 65-100 SODIUM 133 mmol/L L 135-145 POTASSIUM 4.2 mmol/L 3.5-5.0 CHLORIDE 100 mmol/L 100-110 CO2 22 meq/L 20-30 CREATININE, Serum 0.74 mg/dL 0.50-1.40 eGFR(CKD-EPI 2020) 89 mL/min >60 Apr 15, 2024 08:39 AM [facility] HEMOGLOBIN A1C PANEL Specimen Type: BLOOD Comment: [...] Apr 09, 2024 09:19 AM Reporting Lab: [address] [address] Performing Lab: [address] [address] HEMOGLOBIN A1C 6.3 H 4.0-5.6 Apr 15, 2024 08:39 AM [facility] LIPID PANEL FASTING Specimen Type: SERUM No comment entered. Ordering Provider: TRACY VILLANUEVA Report Released Date/Time: Apr 09, 2024 09:19 AM Reporting Lab: [facility] [address] [facility]: [facility] [address] [address] CHOLESTEROL 137 mg/dL TRIGLYCERIDE 63 mg/dL 0-150 LDL calculated 63 mg/dL 0-129 CHOL/HDL 2.2 HDL CHOLESTEROL 61 mg/dL H 40-60 Apr 15, 2024 08:39 AM [facility] BASIC METABOLIC PANEL (fasting) Specime n Type: SERUM No comment entered. Ordering Provider: TRACY VILLANUEVA Report Released Date/Time: Apr 09, 2024 09:19 AM Reporting [facility]: [facility] [address] [address] Performing Lab: [address] [address] UREA NITROGEN 9 mg/dL 7-25 GLUCOSE 159 mg/dL H 65-100 SODIUM 116 mmol/L LL 135-145 POTASSIUM 3.4 mmol/L L 3.5-5.0 CHLORIDE 81 mmol/L L 100-110 CO2 23 meq/L 20-30 CREATININE, Serum 0.69 mg/dL 0.50-1.40 eGFR(CKD-EPI 2020) >90 mL/min >60 Apr 15, 2024 08:39 AM [facility] MICROALBUMIN CREATININE RATIO PANEL Spe cimen Type: URINE No comment entered. Ordering Provider: TRACY VILLANUEVA Report Released Date/Time: Apr 09, 2024 09:19 AM Reporting Lab: [facility] [address] [address] Performing Lab: [facility] [address] [address] MICROALBUMIN/C REATININE RATIO 83.0 mg/g H 0-29.9 MICROALBUMIN,Q UANTITATIVE 16.8 mg/dL RR UNAVAIL CREATININE URINE 202.40 mg/dL Apr 15, 2024 08:39 AM [facility] LIVER FUNCTION Specimen Type: SERUM No comment entered. Ordering Provider: TRACY VILLANUEVA Report Released Date/Time: Apr 09, 2024 09:19 AM Reporting Lab: [facility] [address] [address] Performing Lab: [address] [address] PROTEIN,TOTAL 7.3 g/dL 6.0-8.3 ALBUMIN 4.5 g/dL 3.5-5.0 ALKALINE PHOSPHATASE 62 U/L 40-150 AST 35 U/L H 5-34 ALT 27 U/L BILIRUBIN, TOTAL 2.5 mg/dL H 0.2-1.2 BILIRUBIN, DIRECT 0.7 mg/dL H 0-0.5 Apr 15, 2024 08:39 AM [facility] VITAMIN D (25-OH) Specimen Type: SERUM No comment entered. Ordering Provider: TRACY VILLANUEVA Report Released Date/Time: Apr 09, 2024 09:19 AM Reporting Lab: [address] [address] Performing Lab: [address] [address] VITAMIN D (25-OH) 49 ng/mL 20-50 Apr 15, 2024 08:39 AM [facility] CBC Specimen Type: BLOOD Comment: MCHC >36, SPECIMEN 1+ ICTERIC, QNS FOR PLASMA REPLACEMENT INTERPRET RESULTS WITH CAUTION, SUGGEST PROPER REDRAW SHORT DRAW Ordering Provider: TRACY VILLANUEVA Report Released Date/Time: Apr 09, 2024 09:19 AM Reporting Lab: [address] [address] Performing Lab: [address] [address] WBC 8.70 10*3/uL 4.50-11.00 RBC 4.75 10*6/uL [...] place. 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 [facility] [place] [facility] Nov 17, 2021 10:00 AM VA-TOBACCO USE MED NO [facility] [place] [facility] Nov 17, 2021 10:00 AM VA-TOBACCO USE WI 30 MIN OF WAKEUP [facility] [place] [facility] Nov 17, 2021 10:00 AM VA-TOBACCO USER EVERY DAY [facility] [place] [facility] Oct 14, 2013 12:55 PM V1-PT NOT INTERESTED IN QUIT TOBACCO USE [facility] [place] [facility] May 07, 2013 05:04 PM CURRENT SMOKER trying to stop [facility] [place] [facility] May 07, 2013 05:04 PM V1-PT DECLINES REF TO TOBACCO CESS PRGM [facility] May 07, 2013 05:04 PM V1-PT DECLINES TOBACCO CESSATION MEDS [facility] May 07, 2013 05:04 PM V1-PT READY TO QUIT TOBACCO USE [facility] Dec 03, 2012 08:23 AM V1-PT DECLINES REF TO TOBACCO CESS PRGM [facility] Dec 03, 2012 08:23 AM V1-PT DECLINES TOBACCO CESSATION MEDS [facility] Dec 03, 2012 08:23 AM V1-PT THINKING ABOUT QUIT TOBACCO USE [facility] Jun 05, 2012 08:45 AM CURRENT SMOKER 1/2ppd [facility] Jun 05, 2012 08:45 AM V1-PT DECLINES REF TO TOBACCO CESS PRGM [facility] Jun 05, 2012 08:45 AM V1-PT THINKING ABOUT QUIT TOBACCO USE [facility] Jun 05, 2012 08:45 AM V1-TOBACCO CESS MEDS NOT PRESCRIBED Vet wants to talk to his provider-He is nervous about taking meds to quit- but he is interested in quitting [facility] Nov 25, 2011 09:14 AM V1-PT DECLINES REF TO TOBACCO CESS PRGM [facility] Nov 25, 2011 09:14 AM V1-PT DECLINES TOBACCO CESSATION MEDS [facility] Nov 25, 2011 09:14 AM V1-PT THINKING ABOUT QUIT TOBACCO USE [facility] May 06, 2011 01:02 PM CURRENT SMOKER [facility] [place] [facility] May 06, 2011 01:02 PM V1-PT DECLINES TOBACCO CESSATION MEDS [facility] May 06, 2011 01:02 PM V1-PT NOT INTERESTED IN QUIT TOBACCO USE [facility] [place] [place] [facility] Sep 24, 2010 [...] V1-PT DECLINES REF TO TOBACCO CESS PRGM [place] [facility] [place] [facility] Sep 11, 2007 11:10 AM V1-PT DECLINES TOBACCO CESSATION MEDS [facility] [place] [facility] Sep 11, 2007 11:10 AM V1-PT THINKING ABOUT QUIT TOBACCO USE [facility] [place] [facility] Feb 13, 2007 01:46 PM V1-PT DECLINES REF TO TOBACCO CESS PRGM [place] [facility] [place] [facility] Feb 13, 2007 01:46 PM V1-PT DECLINES TOBACCO CESSATION MEDS [facility] [place] [facility] Feb 13, 2007 01:46 PM V1-PT THINKING ABOUT QUIT TOBACCO USE [facility] [place] [facility] Oct 02, 2006 08:28 AM QUIT TOBACCO USE IN PAST YEAR 3 months ago [facility] Aug 19, 2005 08:33 AM QUIT TOBACCO USE IN PAST YEAR nonsmoker [facility] Sep 21, 2004 09:54 AM CURRENT SMOKER [facility] Sep 07, 2004 08:07 AM CURRENT SMOKER [facility] Sep 15, 2003 11:21 AM CURRENT SMOKER smokes one pk day [facility] Jul 23, 2003 01:57 PM CURRENT SMOKER [facility] Advance Directives: All historical [...] Apr 10, 2023 ADVANCE DIRECTIVE GEORGEESSIE DOZIER [facility] Apr 19, 2007 ADVANCE DIRECTIVE [facility] Encounter Notes: All associated encounter notes This section contains the clinical notes associated to the Encounter. Date/Time Encounter Note(s) Provider Source Apr 24, 2024 01:32 PM PRIMARY CARE [email or web address] E MESSAGING: LOCAL TITLE: PRIMARY CARE SECURE MESSAGING STANDARD TITLE: PRIMARY CARE SECURE MESSAGING DATE OF NOTE: APR 24, 2024@13:32 ENTRY DATE: APR 24, 2024@13:32:02 AUTHOR: JUDY ABBOTT EXP COSIGNER: URGENCY: STATUS: COMPLETED ------Original Message Sent: 04/24/2024 01:31 PM ET From: JUDY ABBOTT To: FILEMONGUSTAVO Lockhart CATHERINE Subject: Test:Test Inquiry Good afternoon, Mr. Guzman, Labs have been ordered to be down prior to appt. They are also non-fasting labs. Lab hours are 730-245pm. Thank you, Judy Abbott Registered Nurse /reginaldo/ JUDY ABBOTT RN REGISTERED NURSE Signed: 04/24/2024 13:32 JUDY ABBOTT [facility]
--- OUTSIDE RECORDS SUMMARY | 2024-08-16 09:34 | XMS_ITS | Encounter Summary ---
Author Name [facility] [place] [facility] [place] [facility] [place] [facility] [place] Address [address] [place] [address] Care Team Providers Care Director Meetings Name Role Phone TRACY VILLANUEVA Primary Care [...] PHI MEDEX BRONZ E December 19, 2013 [id number] [phone] GUSTAVO ARAMBULA SR PATIENT [employer] MEDICARE SUPPLEMEN PHI MEDIC ARE SUPPL EMENT Jul 21, 2007 NONE [id number] [phone] Edgar ARAMBULA PATIENT [place] MED[place] SUPPLEMEN PHI MEDEX BRONZ E December 19, 2013 [id number] GUSTAVO ARAMBULA SR PATIENT [place] ([place]ARD[place] MEDICARE SUPPLEMEN PHI MEDEX BRONZ E December 19, 2013 [id number] Edgar ARAMBULA [place] PATIENT MEDICARE (WNR) MEDICARE (M) PART A Oct 19, 2004 PART A [id number] Edgar ARAMBULA [place] PAT[place] MEDICARE (WNR) MEDICARE (M) PART B Oct 19, 2004 PART B [id number] [phone] Edgar ARAMBULA [place] PATIENT MEDICARE (WNR) MEDICARE (M) PART A Oct 19, 2004 PART A [id number] Edgar ARAMBULA [place] PAT[place] MEDICARE ([place]) MEDICARE (M) PART B Oct 19, 2004 PART B [id number] [phone] Edgar ARAMBULA [place] PATIENT MEDICARE ([place]) MEDICARE (M) PART A Oct 19, 2004 PART A [id number] Edgar ARAMBULA [place] PAT[place] MEDICARE ([place]) MEDICARE () PART B Oct 19, 2004 PART B [id number] Edgar ARAMBULA [place] PAT[place] MEDICARE ([place]) MEDICARE () PART A Oct 19, 2004 PART A [id number] Edgar ARAMBULA [place] PAT[place] MEDICARE ([place]) MEDICARE () PART B Oct 19, 2004 PART B [id number] FILEMONEEdgar [place] PATIENT MEDICARE ([place]) MEDICARE () PART A Oct 19, 2004 PART A [id number] [phone] Edgar ARAMBULA [place] PATIENT MEDICARE ([place]NR) MEDICARE (M) PART B Oct 19, 2004 PART B [id number] Edgar ARAMBULAN PATIENT Selected Encounter This section includes the information on record at [place] for the Encounter. Date/Time Encounter Type Encounter Description Reason Provider Source Apr 30, 2024 08:30 AM OFFICE O/P EST LOW 20 [facility] - IND ICD-10-CM F33.9 Major depressive disorder, recurrent, unspecified JOSEY COLINDRES Encounter Template Text not used by [place] Assessments - Encounter Diagnoses This section includes the primary and secondary diagnoses documented for the Encounter. Date/Time Primary/Secondary Diagnosis Diagnosis Name Provider Source Apr 30, 2024 09:00 AM PRIMARY Major depressive disorder, recurrent, unspecified JOSEY COLINDRES [facility] [place] [facility] Apr 30, 2024 09:00 AM SECONDARY Other insomnia JOSEY COLINDRES [place] [facility] [place] [facility] Plan of Treatment: Future Appointments (+ 6 months) and Future Tests (+/- 45 days) The Plan of Treatment section includes future care activities for the patient from all [place] treatmentfacilities. This section includes future appointments and future orders which are active, pending or scheduled. Future Appointments This section includes appointments that were scheduled to occur 6 months from the date of the Encounter, up to a maximum of 20 appointments. The data comes from all [place] treatment facilities. Appointment Date/Time Appointment Type Appointme nt Facility Name May 01, 2024 11:00 AM AMBULATORY - [...] 10, 2024 10:00 AM AMBULATORY - MEDICINE [facility] Jun 11, 2024 09:30 AM [...] 30, 2024 09:30 AM AMBULATORY - PSYCHIATRY [place] [facility] [place] [facility] Aug 05, 2024 09:45 AM AMBULATORY - MEDICINE [place] [facility] [place] [facility] Sep 06, 2024 11:00 AM AMBULATORY - MEDICINE [place] [facility] [place] [facility] Sep 26, 2024 12:30 PM AMBULATORY - MEDICINE [facility] Oct 08, 2024 09:30 AM AMBULATORY - [facility]RY [place] [facility] Oct 21, 2024 09:30 AM AMBULATORY - [...] data comes from all [place] treatment facilities. Test Date/Time Test Type Test Details Facility Name May 15, 2024 08:08 AM Consult Order COMMUNITY CARE-PULMONARY Cons [employer] [facility] Lab Results: +/- 30 days of the encounter This section includes the Chemistry and Hematology Lab Results on record with [place] for the patient. Radiology Reports and Pathology Reports are provided separately, in subsequent sections. Lab Results This section contains the Chemistry/Hematology Results that were resulted 30 days before or 30 daysafter the date of the Encounter. Date/Time Source Result Type Result - Unit Interpretation Reference Range Comment Apr 25, 2024 07:51 AM [facility] HEMOGLOBIN A1C PANEL Specimen Type: BLOOD Comment: [...] Feb 13, 2024 02:36 PM Reporting Lab: [address] [address] Performing Lab: [address] [address] HEMOGLOBIN A1C 6.8 H 4.0-5.6 Apr 25, 2024 07:51 AM [facility] MICROALBUMIN CREATININE RATIO PANEL Spe cimen Type: URINE No comment entered. Ordering Provider: TRACY VILLANUEVA Report Released Date/Time: Feb 13, 2024 02:36 PM Reporting Lab: [address] [address] Performing Lab: [address] [address] MICROALBUMIN/C REATININE RATIO 16.0 mg/g 0-29.9 MICROALBUMIN,Q UANTITATIVE 2.3 mg/dL RR UNAVAIL CREATININE URINE 143.92 mg/dL Apr 25, 2024 07:51 AM [facility] BASIC METABOLIC PANEL (non-fasting) Spe cimen Type: SERUM No comment entered. Ordering Provider: TRACY VILLANUEVA Report Released Date/Time: Feb 13, 2024 02:36 PM Reporting Lab: [address] [address] Performing Lab: [address] [address] UREA NITROGEN 15 mg/dL 7-25 GLUCOSE 173 mg/dL H 65-100 SODIUM 133 mmol/L L 135-145 POTASSIUM 4.2 mmol/L 3.5-5.0 CHLORIDE 100 mmol/L 100-110 CO2 22 meq/L 20-30 CREATININE, Serum 0.74 mg/dL 0.50-1.40 eGFR(CKD-EPI 2020) 89 mL/min >60 Apr 15, 2024 08:39 AM [facility] HEMOGLOBIN A1C PANEL Specimen Type: BLOOD Comment: [...] Apr 09, 2024 09:19 AM Reporting Lab: [address] [address] Performing Lab: [facility] [address] [facility] [address] HEMOGLOBIN A1C 6.3 H 4.0-5.6 Apr 15, 2024 08:39 AM [facility] LIPID PANEL FASTING Specimen Type: SERUM No comment entered. Ordering Provider: TRACY VILLANUEVA Report Released Date/Time: Apr 09, 2024 09:19 AM Reporting Lab: [address] [address] Performing Lab: [address] [address] CHOLESTEROL 137 mg/dL TRIGLYCERIDE 63 mg/dL 0-150 LDL calculated 63 mg/dL 0-129 CHOL/HDL 2.2 HDL CHOLESTEROL 61 mg/dL H 40-60 Apr 15, 2024 08:39 AM [facility] BASIC METABOLIC PANEL (fasting) Specime n Type: SERUM No comment entered. Ordering Provider: TRACY VILLANUEVA Report Released Date/Time: Apr 09, 2024 09:19 AM Reporting Lab: [address] [address] Performing Lab: [address] [address] UREA NITROGEN 9 mg/dL 7-25 GLUCOSE 159 mg/dL H 65-100 SODIUM 116 mmol/L LL 135-145 POTASSIUM 3.4 mmol/L L 3.5-5.0 CHLORIDE 81 mmol/L L 100-110 CO2 23 meq/L 20-30 CREATININE, Serum 0.69 mg/dL 0.50-1.40 eGFR(CKD-EPI 2020) >90 mL/min >60 Apr 15, 2024 08:39 AM [facility] MICROALBUMIN CREATININE RATIO PANEL Spe cimen Type: URINE No comment entered. Ordering Provider: TRACY VILLANUEVA Report Released Date/Time: Apr 09, 2024 09:19 AM Reporting Lab: [address] [address] Performing Lab: [address] [address] MICROALBUMIN/C REATININE RATIO 83.0 mg/g H 0-29.9 MICROALBUMIN,Q UANTITATIVE 16.8 mg/dL RR UNAVAIL CREATININE URINE 202.40 mg/dL Apr 15, 2024 08:39 AM [facility] VITAMIN D (25-OH) Specimen Type: SERUM No comment entered. Ordering Provider: TRACY VILLANUEVA Report Released Date/Time: Apr 09, 2024 09:19 AM Reporting Lab: [address] [address] Performing Lab: [address] [address] VITAMIN D (25-OH) 49 ng/mL 20-50 Apr 15, 2024 08:39 AM [facility] LIVER FUNCTION Specimen Type: SERUM No comment entered. Ordering Provider: TRACY VILLANUEVA Report Released Date/Time: Apr 09, 2024 09:19 AM Reporting Lab: [address] [address] Performing Lab: [address] [address] PROTEIN,TOTAL 7.3 g/dL 6.0-8.3 ALBUMIN 4.5 g/dL 3.5-5.0 ALKALINE PHOSPHATASE 62 U/L 40-150 AST 35 U/L H 5-34 ALT 27 U/L BILIRUBIN, TOTAL 2.5 mg/dL H 0.2-1.2 BILIRUBIN, DIRECT 0.7 mg/dL H 0-0.5 Apr 15, 2024 08:39 AM [facility] CBC Specimen Type: BLOOD Comment: MCHC >36, SPECIMEN 1+ ICTERIC, QNS FOR PLASMA REPLACEMENT INTERPRET RESULTS WITH CAUTION, SUGGEST PROPER REDRAW SHORT DRAW Ordering Provider: TRACY VILLANUEVA Report Released Date/Time: Apr 09, 2024 09:19 AM Reporting Lab: [address] [address] Performing Lab: [address] [address] WBC 8.70 10*3/uL 4.50-11.00 RBC 4.75 10*6/uL [...] took place. 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 [facility] [place] [facility] Nov 17, 2021 10:00 AM VA-TOBACCO USE MED NO [facility] [place] [facility] Nov 17, 2021 10:00 AM VA-TOBACCO USE WI 30 MIN [facility] WAKEUP [facility] Nov 17, 2021 10:00 AM VA-TOBACCO USER EVERY DAY [facility] Oct 14, 2013 12:55 PM V1-PT NOT INTERESTED IN QUIT TOBACCO USE [facility] May 07, 2013 05:04 PM CURRENT SMOKER trying to stop [facility] May 07, 2013 05:04 PM V1-PT DECLINES REF TO TOBACCO CESS PRGM [facility] May 07, 2013 05:04 PM V1-PT DECLINES TOBACCO CESSATION MEDS [facility] May 07, 2013 05:04 PM V1-PT READY TO QUIT TOBACCO USE [facility] Dec 03, 2012 08:23 AM V1-PT DECLINES REF TO TOBACCO CESS PRGM [facility] Dec 03, 2012 08:23 AM V1-PT DECLINES TOBACCO CESSATION MEDS [facility] Dec 03, 2012 08:23 AM V1-PT THINKING ABOUT QUIT TOBACCO USE [facility] Jun 05, 2012 08:45 AM CURRENT SMOKER 1/2ppd [facility] Jun 05, 2012 08:45 AM V1-PT DECLINES REF TO TOBACCO CESS PRGM [facility] Jun 05, 2012 08:45 AM V1-PT THINKING ABOUT QUIT TOBACCO USE [facility] Jun 05, 2012 08:45 AM V1-TOBACCO CESS MEDS NOT PRESCRIBED Vet wants to talk to his provider-He is nervous about taking meds to quit- but he is interested in quitting [facility] Nov 25, 2011 09:14 AM V1-PT DECLINES REF TO TOBACCO CESS PRGM [facility] Nov 25, 2011 09:14 AM V1-PT DECLINES TOBACCO CESSATION MEDS [facility] Nov 25, 2011 09:14 AM V1-PT [...] IN PAST YEAR [facility] [place] [facility] [...] 10:08 AM V1-PT DECLINES TOBACCO [facility]ESS[facility] [place] [facility] Dec [...] THINKING ABOUT QUIT [facility]BACCO [facility] [place] [facility] Feb 13, 2007 01:46 PM V1-PT DECLINES REF TO TOBACCO CESS PRGM [facility] Feb 13, 2007 01:46 PM V1-PT DECLINES TOBACCO CESSATION MEDS [facility] Feb 13, 2007 01:46 PM V1-PT THINKING ABOUT QUIT TOBACCO USE [facility] Oct 02, 2006 08:28 AM QUIT TOBACCO USE IN PAST YEAR 3 months ago [facility] Aug 19, 2005 08:33 AM QUIT TOBACCO USE IN PAST YEAR nonsmoker [facility] Sep 21, 2004 09:54 AM CURRENT SMOKER [facility] Sep 07, 2004 08:07 AM CURRENT SMOKER [facility] Sep 15, 2003 11:21 AM CURRENT SMOKER smokes one pk day [facility] Jul 23, 2003 01:57 PM CURRENT SMOKER [facility] Advance Directives: All historical and current Section [...] Apr 10, 2023 ADVANCE DIRECTIVE [facility]SSIE ST[facility] Apr 19, 2007 ADVANCE DIRECTIVE VICTORIA JOHNSON [facility] Encounter Notes: All associated encounter notes This section contains the clinical notes associated to the Encounter. Date/Time Encounter Note(s) Provider Source Apr 30, 2024 08:34 AM PSYCHIATRY NOTE: LOCAL TITLE: PSYCHIATRY NOTE STANDARD TITLE: PSYCHIATRY NOTE DATE OF NOTE: APR 30, 2024@08:34 ENTRY DATE: APR 30, 2024@08:34:11 AUTHOR: LANA COLINDRESIGNER: URGENCY: STATUS: COMPLETED PSYCHIATRY FOLLOW UP VISIT GUSTAVO ARAMBULA is a 83yo MARITAL STATUS - WHITE MALE with a history of [employer] FROM December TO Oct INTERVAL HISTORY Was inpatient for hyponatremia down to 109. HCTZ was stopped. Mood is much better good . A little fatigued, appetite is coming back. Nausea is much better. Stopping the buprenorphine patch also helped nausea. Sleeping ok. Anxiety feels much better. Denies any dizziness, lightheadedness, or imbalance/falls recently. Weight 126lbs. Last NA was 133. Has been walking outside, fishing and painting. Son and DIL are managing medications. Vet will continue to live with them. CURRENT MEDICATIONS Active Outpatient Medications (including Supplies): [...] CT 09/25/2023 TRACY VILLANUEVA Depression (SNOMED CT 36496483) F33 12/10/2021 TRAVIS GOMES Dry Eye Syndromes * (ICD-9-CM 375.1 03/17/2009 NAHED JARQUIN P OD Late effect of fracture of [...] 10/31/2013 JOVANY NAYLOR Tobacco use (SNOMED CT 103845561) Z 02/20/2024 GUSTAVO MCKEON BMI: 25.7 SUBSTANCE USE: Alcohol: None MJ: None Tobacco: need to review Caffeine: 1 cup daily Opiates: denies Cocaine: denies Other: denies PREVIOUS PSYCHIATRIC MEDICATION TRIALS AND RESPONSE -Chantix--bad reaction. trazodone--on many years, we have tried to reduce without much success. Helpful for sleep, denies orthostasis. doxepin--side effects mirtazapine 15mg--has been helpful for sleep and appetite melatonin bupropion SR 200mgqam--has seemed helpful for mood, no increase in anxiety citalopram 20-40mg for many years, tapered off last year. restarted Mar 2024. quetiapine--helpful, well tolerated. MENTAL STATUS EXAM: Awake, alert, cooperative, well groomed, with son on video. No abnormal movements. Speech nml r/r/r/v/p Mood good Affect: smiling, reactive Thought Process Linear, logical Thought Content: No obsessions, no delusions, no AH/VH. SI/HI: Denies a/ox4 I/J good ASESSMENT 82yo man, living [...] 01/19 but new splenic infarction with associated pain.Resolved. With an episode of severe hyponatremia in Mar 2024 related to HCTZ, inpatient stay--nausea, anxiety, depression. Resolved with improvement in NA and switch back to citalopram, adding quetiapine. DIAGNOSIS: I. Major Depressive Disorder II. INSOMNIA DIFFERENTIAL Depression due to medical causes- recent cardiac surgery, pain, DM2 Sleep Apnea, Smoking Chronic insomnia Risk of falls on trazodone and mirtazapine. PLAN -cont citalopram 20mg daily -cont quetiapine 25mg daily -review smoking cessation -off trazodone - Cont melatonin 5 mg at HS for sleep - [facility] Sleep medicine - Cardiology - Hematology F/U REFILLS/COVERAGE okay for refills FOLLOW UP IN CLINIC 1 mo TIME SPENT FACE TO FACE:20m TOTAL TIME INCLUDING CHART REVIEW AND DOCUMENTATION:30m SUICDE RISK ASSESSMENT: RISK ASSESSMENT: Suicide/Homicide Risk [...] Resources Only: E911 (Emergency Call Relay Center): [phone] [facility] Line - ([phone]) press #1. OFELIA Suicide Coordinator ? [phone], Ext. [phone]; Back-up Ext. [phone] Dishwashing Machine Operator of the Day(AOD), Sabi GILBERT ? [phone], Ext. [phone] Introduction: Visit is being conducted by [place] [facility]. identified with 2 identifiers: [X] Full Name [X] Date of [ ] VA ID Card Emergency Plan: confirmed and/or provided the following information in case of emergency or technology failure. 's present location and address for appointment: Located at home address as in CPRS 's emergency contact name and phone number: Emergency contact as per listed in chart [place] reported that location is private and safe: Yes Informed Consent: [place] informed of the risks and benefits of Telehealth video care. [place] has the right to refuse video services. If refuses video visit, a fpha-zo-uads visit will be scheduled. verbalized consent for this video visit: Yes provided consent for any other persons present for visit: Yes If yes, who and relationship to patient: Secure visit: Visit was locked for security and privacy:Yes __ _ __ Suicide Screen: C-SSRS Screening Real-Suicide Severity Rating Scale (C-SSRS Screener) 1. Over the past month, have you wished you were or wished you could go to sleep and not wake up? No 2. Over the past month, have you had any actual thoughts of killing yourself? No 3. Over the past month, have you been thinking about how you might do this? Response not required due to responses to other questions. 4. Over the past month, have you had these thoughts and had some intention of acting on them? Response not required due to responses to other questions. 5. Over the past month, have you started to work out or worked out the details of how to kill yourself? Response not required due to responses to other questions. 6. If yes, at any time in the past month did you intend to carry out this plan? Response not required due to responses to other questions. 7. In your lifetime, have you ever done anything, started to do anything, or prepared to do anything to end your life (for example, collected pills, obtained a gun, gave away valuables, went to the roof but didn't jump)? No 8. If YES, was this within the past 3 months? Response not required due to responses to other questions. /reginaldo/ LANA COLINDRES PSYCHIATRIST Signed: 04/30/2024 09:00 LANA COLINDRES [facility]
--- OUTSIDE RECORDS SUMMARY | 2024-08-16 09:34 | XMS_ITS ---
AL MEDICAL NUTRITION INDIV IN [place] Encounter Summary Created on: August 16, 2024 RALF GUSTAVO ALEXANDER : 1940 Sex: Male Author Name [facility] Organization [facility] [place] Address [address] [place] [address] Care Team Providers Care Educational Technician Name Role Phone TRACY VILLANUEVA Primary Care [...] PHI MEDEX BRONZ E December 19, 2013 [id number] GUSTAVO ARAMBULA SR PATIENT [employer] MEDICARE SUPPLEMEN PHI MEDIC ARE SUPPL EMENT Jul 21, 2007 NONE [id number] Edgar ARAMBULA PATIENT [place] SUPPLEMEN PHI MEDEX BRONZ E December 19, 2013 [id number] GUSTAVO ARAMBULA SR PATIENT [place] MEDICARE SUPPLEMEN PHI MEDEX BRONZ E December 19, 2013 [id number] Edgar ARAMBULAN PATIENT MEDICARE (WNR) MEDICARE (M) PART A Oct 19, 2004 PART A [id number] Edgar ARAMBULA [place] PATIENT MEDICARE (WNR) MEDICARE (M) PART B Oct 19, 2004 PART B [id number] Edgar ARAMBULA [place] PATIENT MEDICARE ([place]NR) MEDICARE (M) PART A Oct 19, 2004 PART A [id number] Edgar ARAMBULA [place] PATIENT MEDICARE (WNR) MEDICARE (M) PART B Oct 19, 2004 PART B [id number] Edgar ARAMBULA [place] PATIENT MEDICARE (WNR) MEDICARE () PART A Oct 19, 2004 PART A [id number] Edgar ARAMBULA [place] PATIENT MEDICARE ([place]) MEDICARE () PART B Oct 19, 2004 PART B [id number] Edgar ARAMBULAN PATIENT MEDICARE (WNR) MEDICARE () PART A Oct 19, 2004 PART A [id number] [phone] Edgar ARAMBULA [place] PATIENT MEDICARE (WNR) MEDICARE () PART B Oct 19, 2004 PART B [id number] Edgar ARAMBULA [place] PATIENT MEDICARE ([place]) MEDICARE () PART A Oct 19, 2004 PART A [id number] Edgar ARAMBULAN PATIENT MEDICARE (WNR) MEDICARE () PART B Oct 19, 2004 PART B [id number] [phone] Edgar ARAMBULAN PATIENT Selected Encounter This section includes the information on record at [place] for the Encounter. Date/Time Encounter Type Encounter Description Reason Provider Source May 01, 2024 11:00 AM MEDICAL NUTRITION INDIV IN NUTRITION/DIETETIC S-INDIVIDUAL ICD-10-CM R63.4 Abnormal weight loss CHIVO ARAGON [place] Encounter Template Text not used by [place] Assessments - Encounter Diagnoses This section includes the primary and secondary diagnoses documented for the Encounter. Date/Time Primary/Secondary Diagnosis Diagnosis Name Provider Source May 05, 2024 08:01 PM PRIMARY Abnormal weight loss CHIVO ARAGON [place] May 05, 2024 08:01 PM SECONDARY Body mass index [BMI] 22.0-22.9, adult CHIVO ARAGON [place] May 05, 2024 08:01 PM SECONDARY Dietary counseling and surveillance CHIVO ARAGON [place] Plan of Treatment: Future Appointments (+ 6 months) and Future Tests (+/- 45 days) The Plan of Treatment section includes future care activities for the patient [facility] [place] [facility] This section includes future appointments and future orders which are active, pending or scheduled. Future Appointments This section includes appointments that were scheduled to occur 6 months from the date of the Encounter, up to a maximum of 20 appointments. The data comes from all [place] treatment facilities. Appointment Date/Time Appointment Type Appointme nt Facility Name May 14, 2024 11:30 AM AMBULATORY - MEDICINE [facility] May 31, 2024 11:00 AM AMBULATORY - REHAB MEDICIN [facility] [place] May 31, 2024 12:00 PM AMBULATORY - MEDICINE [facility] [place] [facility] Jun 10, 2024 10:00 AM AMBULATORY - MEDICINE [facility] Jun 11, 2024 09:30 AM AMBULATORY - PSYCHIATRY [facility] [place] [facility] Jun 13, 2024 10:00 AM AMBULATORY - MEDICINE [facility] [place] Jun 19, 2024 11:00 AM AMBULATORY - NONE [facility] [place] Jun 21, 2024 09:00 AM AMBULATORY [facility] MEDICINE [facility] [place] [facility] Jun 21, 2024 09:15 AM AMBULATORY - MEDICINE [facility] [place] Jun 21, 2024 09:30 AM AMBULATORY - MEDICINE [place] [facility] [place] [facility] Jun 26, 2024 08:00 AM AMBULATORY - MEDICINE [facility] [place] Jul 05, 2024 09:00 AM AMBULATORY - REHAB MEDICIN E [facility] Jul 30, 2024 09:30 AM AMBULATORY - PSYCHIATRY [facility] [place] Aug 05, 2024 09:45 AM AMBULATORY - MEDICINE [facility] Sep 06, 2024 11:00 AM [facility]AT[facility] Sep 26, 2024 12:30 PM [facility] Oct 08, 2024 09:30 AM [facility] Oct 21, 2024 09:30 AM AMBULATORY - MEDICINE [facility] Active, Pending, and [...] 15, 2024 08:08 AM Consult Order [facility] [employer] [facility] [place] Lab Results: +/- 30 days of the [...] Range Comment Apr 25, 2024 07:51 AM [place] HEMOGLOBIN A1C PANEL Specimen Type: BLOOD Comment: [...] Feb 13, 2024 02:36 PM Reporting Lab: [facility] [address] [facility] [address] Performing Lab: [address] [address] HEMOGLOBIN A1C 6.8 H 4.0-5.6 Apr 25, 2024 07:51 AM [place] MICROALBUMIN CREATININE RATIO PANEL Spe cimen Type: URINE No comment entered. Ordering Provider: TRACY VILLANUEVA Report Released Date/Time: Feb 13, 2024 02:36 PM Reporting Lab: [address] [address] Performing Lab: [address] [address] MICROALBUMIN/C REATININE RATIO 16.0 mg/g 0-29.9 MICROALBUMIN,Q UANTITATIVE 2.3 mg/dL RR UNAVAIL CREATININE URINE 143.92 mg/dL Apr 25, 2024 07:51 AM [place] BASIC METABOLIC PANEL (non-fasting) Spe cimen Type: SERUM No comment entered. Ordering Provider: TRACY VILLANUEVA Report Released Date/Time: Feb 13, 2024 02:36 PM Reporting Lab: [address] [address] Performing Lab: [address] [address] UREA NITROGEN 15 mg/dL 7-25 GLUCOSE 173 mg/dL H 65-100 SODIUM 133 mmol/L L 135-145 POTASSIUM 4.2 mmol/L 3.5-5.0 CHLORIDE 100 mmol/L 100-110 CO2 22 meq/L 20-30 CREATININE, Serum 0.74 mg/dL 0.50-1.40 eGFR(CKD-EPI 2020) 89 mL/min >60 Apr 15, 2024 08:39 AM [place] HEMOGLOBIN A1C PANEL Specimen Type: BLOOD Comment: [...] Apr 09, 2024 09:19 AM Reporting Lab: [address] [address] Performing Lab: [address] [address] HEMOGLOBIN A1C 6.3 H 4.0-5.6 Apr 15, 2024 08:39 AM [place] LIPID PANEL FASTING Specimen Type: SERUM No comment entered. Ordering Provider: TRACY VILLANUEVA Report Released Date/Time: Apr 09, 2024 09:19 AM Reporting Lab: [facility] [address] [facility] [address] Performing Lab: [address] [address] CHOLESTEROL 137 mg/dL TRIGLYCERIDE 63 mg/dL 0-150 LDL calculated 63 mg/dL 0-129 CHOL/HDL 2.2 HDL CHOLESTEROL 61 mg/dL H 40-60 Apr 15, 2024 08:39 AM [place] BASIC METABOLIC PANEL (fasting) Specime n Type: SERUM No comment entered. Ordering Provider: TRACY VILLANUEVA Report Released Date/Time: Apr 09, 2024 09:19 AM Reporting Lab: [address] [address] Performing Lab: [address] [address] UREA NITROGEN 9 mg/dL 7-25 GLUCOSE 159 mg/dL H 65-100 SODIUM 116 mmol/L LL 135-145 POTASSIUM 3.4 mmol/L L 3.5-5.0 CHLORIDE 81 mmol/L L 100-110 CO2 23 meq/L 20-30 CREATININE, Serum 0.69 mg/dL 0.50-1.40 eGFR(CKD-EPI 2020) >90 mL/min >60 Apr 15, 2024 08:39 AM [place] MICROALBUMIN CREATININE RATIO PANEL Spe cimen Type: URINE No comment entered. Ordering Provider: TRACY VILLANUEVA Report Released Date/Time: Apr 09, 2024 09:19 AM Reporting Lab: [address] [address] Performing Lab: [address] [address] MICROALBUMIN/C REATININE RATIO 83.0 mg/g H 0-29.9 MICROALBUMIN,Q UANTITATIVE 16.8 mg/dL RR UNAVAIL CREATININE URINE 202.40 mg/dL Apr 15, 2024 08:39 AM [place] LIVER FUNCTION Specimen Type: SERUM No comment entered. Ordering Provider: TRACY VILLANUEVA Report Released Date/Time: Apr 09, 2024 09:19 AM Reporting Lab: [address] [address] Performing Lab: [address] [address] PROTEIN,TOTAL 7.3 g/dL 6.0-8.3 ALBUMIN 4.5 g/dL 3.5-5.0 ALKALINE PHOSPHATASE 62 U/L 40-150 AST 35 U/L H 5-34 ALT 27 U/L BILIRUBIN, TOTAL 2.5 mg/dL H 0.2-1.2 BILIRUBIN, DIRECT 0.7 mg/dL H 0-0.5 Apr 15, 2024 08:39 AM [place] VITAMIN D (25-OH) Specimen Type: SERUM No comment entered. Ordering Provider: TRACY VILLANUEVA Report Released Date/Time: Apr 09, 2024 09:19 AM Reporting Lab: [address] [address] Performing Lab: [address] [address] VITAMIN D (25-OH) 49 ng/mL -50 Apr 15, 2024 08:39 AM [place] CBC Specimen Type: BLOOD Comment: MCHC >36, SPECIMEN 1+ ICTERIC, QNS FOR PLASMA REPLACEMENT INTERPRET RESULTS WITH CAUTION, SUGGEST PROPER REDRAW SHORT DRAW Ordering Provider: TRACY VILLANUEVA Report Released Date/Time: Apr 09, 2024 09:19 AM Reporting Lab: [address] [address] Performing Lab: [address] [address] WBC 8.70 10*3/uL 4.50-11.00 RBC 4.75 10*6/uL [...] 2023 09:00 AM VA-TOBACCO USER EVERY DAY [place] Tobacco Use History This section includes a history of the smoking, or tobacco-related health factors, that were collected on or before the date of the Encounter. The data comes from the [place] facility where the Encounter took place. 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 Date/Time Encounter Note(s) Provider Source May 01, 2024 11:00 AM NUTRITION DIETETICS CONSULT: LOCAL TITLE: CONSULT REPORT/NUTRITION AND LABORATORY ASST STANDARD TITLE: NUTRITION DIETETICS CONSULT DATE OF NOTE: MAY 01, 2024@11:00 ENTRY DATE: MAY 03, 2024@15:11:44 AUTHOR: MAHESH,JESSE P EXP COSIGNER: URGENCY: STATUS: COMPLETED NUTRITION ASSESSMENT Reason for Nutrition referral: Primary Diagnosis: Abnormal Weight Loss (R63.4) Secondary Diagnosis: Dietary Surveillance and Counseling (Z71.3) Additional Secondary Diagnosis: Type II DM without complication (E11.9) Date of Nutrition Visit: Apr Visit #: 1 Time Spent with Patient: 40 minutes Patient identified using the following two forms of ID: Date of , Patient Full Name NUTRITION ASSESSMENT: Client History ======== Medication List Reviewed Food/Drug Interactions: Atorvastatin/Grapefruit, HCTZ/Potassium, Oral Hypoglycemic/Potential for hypoglycemia Nutritional/Herbal Supplements: yes, ensure max protein daily Food Allergies:no Problem List Reviewed: no Anthropometric Measurements: Ht:63 in [160.0 cm] (05/01/2024 11:03) Wt:128.1 lb [58.11 kg] (05/01/2024 11:03) Weight History: reports 30 lb weight loss 18% over past year. BMI: 22.7 IBW:124 lb Biochemical Data/Medical Tests: === Labs: LIPID PANEL TREND Collection DT Spec CHOL HDL CHO/HDL LDL-d LDL-c TRIG 04/15/2024 08:39 SERUM 137 61 H 2.2 63 63 09/01/2023 10:29 SERUM 133 43 3.1 75 73 HEMOGLOBIN A1C; BLOOD Lauryn. Date: 04/25/24 07:51 04/15/24 08:39 Test Name Result Units Range HEMOGLOBIN A1C 6.8 H 6.3 H % 4.0 - 5.6 BP: 165/77 (03/11/2024 09:00) Nutrition Focused Physical Findings: ======== Appetite: Poor Other issues/concerns: None COMPARATIVE STANDARDS: ESTIMATED DAILY ENERGY REQUIREMENTS:1740 kcal Based on: 30 kcals/kg Actual Body Weight ESTIMATED DAILY PROTEIN REQUIREMENTS: 70 gm Based on 1.2 grams protein/kg Actual Body Weight ESTIMATED DAILY FLUID REQUIREMENTS: 1800 ml Based on 1 ml/kcal Nutrition-Focused Physical Exam === A selection MUST be made in The Nutrition-Focused Physical Exam Summary section No significant physical signs of nutrient excesses or deficits Nutrition-Focused Physical Exam Summary: Based on the ASPEN/AND Malnutrition Diagnosis Guide, it was determined that the [place] DOES NOT have malnutrition. Nutrition History: Food/Nutrition Related History: Met with and son who are concerned about his weight loss and decreased appetite. They associate it with his starting a hydrocortothyazide which was stopped recently. Son does the cooking and shopping. He tends to eat 2 meals per day. Reports early satiety. Smoke 8 cigarettes per day and is working on quitting. 24 hour recall: L: fried egg, aalad, milk D: pizza, soda snacks: nutritgrain bar, ensure max protein In the past 3 months, did you ever run out of food and you were not able to access more food or have the money to buy more food? Physical Activity: limited NUTRITION DIAGNOSIS Nutrition Problem: NEW Involuntary weight loss related to poor oral intake as evidenced by 18% weight loss, . INTERVENTION NUTRITION SUPPLEMENT THERAPY Commercial beverage medical food supplement therapy Food and/or Nutrient Delivery: Recommend Oral Nutritional Supplement as follows: Product:Ensure Plus Dosage: 1 bottle per day Provides: 350 kcal / 13 gm of protein NUTRITION COUNSELING Nutrition counseling based on motivational interviewing strategy , Nutrition counseling based on goal setting strategy , Nutrition counseling based on self monitoring strategy NUTRITION EDUCATION Content related to nutrition education, Education on nutrition's influence on health Nutrition Education provided on the following topics: Sources of Carbohydrates, Healthy Meal Planning, Oral medical nutritional supplement Printed Nutrition educational materials provided during this encounter: Suggestions for Increasing Calories and Protein Education Narrative: reviewed supplement and small frequent meals and snacks. Barriers to Education: None Comprehension: Good Motivation: Good === COORDINATION OF NUTRITION CARE Follow-up with: PCP MONITORING Patient goals: 1. Consume 1 bottle of ensure plus daily. 2. Consume small frequent meals and snacks every 2-3 hours. 3. Quit smoking FOLLOW-UP PLAN 1. Follow-up visit: 06/19/24 2. Monitor progress toward achievement of Nutrition Intervention Goals 3. Assess comprehension and motivation based on dietary changes made 4. Monitor progress toward achievement of Clinical Outcome Goals: Weight, Labs, Oral Intake CLINICAL OUTCOME GOALS: Indicator: Weight Criteria: Unintentional weight loss Goal: Stable weight by follow-up Progress: TBD at follow-up WHOLE HEALTH WHOLE HEALTH EDUCATION Whole Health Education was provided. /reginaldo/ JESSE ARAGON STAFF DIETITIAN Signed: 05/05/2024 20:01 JESSE ARAGON [place] [facility] [place] [facility]
--- OUTSIDE RECORDS SUMMARY | 2024-08-16 09:34 | XMS_ITS | Encounter Summary ---
Author Name [facility] Organization [facility] Address [address] [place] [address] Care Team Providers Care Document Advisor Name Role Phone TRACY VILLANUEVA Primary Care [...] PHI MEDEX BRONZ E December 19, 2013 [id number] [phone] GUSTAVO ARAMBULA SR PATIENT [employer] MEDICARE SUPPLEMEN PHI MEDIC ARE SUPPL EMENT Jul 21, 2007 NONE [id number] [phone] Edgar ARAMBULA [place]IENT [place] SUPPLEMEN PHI MEDEX BRONZ E December 19, 2013 [id number] GUSTAVO ARAMBULA SR PATIENT [place] MEDICARE SUPPLEMEN PHI MEDEX BRONZ E December 19, 2013 [id number] Edgar ARAMBULA PATIENT MEDICARE (WNR) MEDICARE () PART A Oct 19, 2004 PART A [id number] Edgar ARAMBULA PATIENT MEDICARE (WNR) MEDICARE (M) PART B Oct 19, 2004 PART B [id number] Edgar ARAMBULA [place] PATIENT MEDICARE (WNR) MEDICARE () PART A Oct 19, 2004 PART A [id number] [phone] Edgar ARAMBULAN PATIENT MEDICARE (WNR) MEDICARE () PART B Oct 19, 2004 PART B [id number] Edgar ARAMBULAN PATIENT MEDICARE (WNR) MEDICARE () PART A Oct 19, 2004 PART A [id number] [phone] Edgar ARAMBULAN PATIENT MEDICARE (WNR) MEDICARE () PART B Oct 19, 2004 PART B [id number] Edgar ARAMBULAN PATIENT MEDICARE (WNR) MEDICARE () PART A Oct 19, 2004 PART A [id number] [phone] Edgar ARAMBULA PATIENT MEDICARE (WNR) MEDICARE () PART B Oct 19, 2004 PART B [id number] [phone] Edgar ARAMBULAN PATIENT MEDICARE (WNR) MEDICARE () PART A Oct 19, 2004 PART A [id number] [phone] Edgar ARAMBULAN PATIENT MEDICARE (WNR) MEDICARE () PART B Oct 19, 2004 PART B [id number] Edgar ARAMBULA PATIENT Selected Encounter This section includes the information on record at MD for the Encounter. Date/Time Encounter Type Encounter Description Reason Pro vider Source Apr 10, 2024 12:00 AM Outpatient Encounter COMMUNITY CARE [...] - MEDICINE [facility] [place] [facility] Apr 30, 2024 08:30 AM AMBULATORY - PSYCHIATRY [facility] [place] [facility] May 01, 2024 11:00 AM AMBULATORY - NONE [facility] [place] [facility] May 14, 2024 11:30 AM AM[facility]ATORY - [facility]ICINE [facility] May 31, 2024 11:00 AM AMBULATORY - REHAB MEDICIN E [facility] [place] [facility] May 31, 2024 12:00 PM AMBULATORY - MEDICINE [facility] [place] [facility] Jun 10, 2024 10:00 AM AMBULATORY - [facility]ICINE [facility] Jun 11, 2024 09:30 AM AMBULATORY - PSYCHIATRY [facility] [place] [facility] Jun 13, 2024 10:00 AM AMBULATORY - MEDICINE [facility] [place] [facility] Jun 19, 2024 11:00 AM AMBULATORY - NONE [facility] [place] [facility] Jun 21, 2024 09:00 AM AMBULATORY - MEDICINE [facility] [place] [facility] Jun 21, 2024 09:15 AM AMBULATORY - MEDICINE [facility] [place] [facility] Jun 21, 2024 09:30 AM AMBULATORY - MEDICINE [facility] [place] [facility] Jun 26, 2024 08:00 AM AMBULATORY - MEDICINE [facility] [place] [facility] Jul 05, 2024 09:00 AM AMBULATORY - REHAB MEDICIN E [facility] [place] [facility] Jul 30, 2024 09:30 AM AMBULATORY - PSYCHIATRY [facility] [place] [facility] Aug 05, 2024 09:45 AM AMBULATORY - MEDICINE [facility] [place] [facility] Sep 06, 2024 11:00 AM AMBULATORY - MEDICINE [facility] [place] [facility] Sep 26, 2024 12:30 PM AMBULATORY - MEDICINE [facility] Oct 08, 2024 09:30 AM AMBULATORY - PSYCHIATRY [facility] Active, Pending, and Scheduled Orders This section includes a listing of several types of active, pending, and scheduled orders, including clinic medications orders, diagnostic test orders, procedure orders and consult orders; where the start date of the order is 45 days before the date of the Encounter or 45 days after the date of theEncounter. The data comes from all MD treatment facilities. Test Date/Time Test Type Test Details Facility Name May 15, 2024 08:08 AM Consult Order COMMUNITY CARE-PULMONARY Cons Ophthalmic Surgical Assistant's Choice [facility] Lab Results: +/- 30 days of the [...] Range Comment Apr 25, 2024 07:51 AM [facility] HEMOGLOBIN A1C PANEL Specimen Type: BLOOD Comment: [...] Feb 13, 2024 02:36 PM Reporting Lab: [facility] [address] [address] Performing Lab: [address] [address] HEMOGLOBIN A1C 6.8 H 4.0-5.6 Apr 25, 2024 07:51 AM [facility] MICROALBUMIN CREATININE RATIO PANEL Spe cimen Type: URINE No comment entered. Ordering Provider: TRACY VILLANUEVA Report Released Date/Time: Feb 13, 2024 02:36 PM Reporting Lab: [address] [address] Performing Lab: [address] [place] [address] MICROALBUMIN/C REATININE RATIO 16.0 mg/g 0-29.9 MICROALBUMIN,Q UANTITATIVE 2.3 mg/dL RR UNAVAIL CREATININE URINE 143.92 mg/dL Apr 25, 2024 07:51 AM [facility] BASIC METABOLIC PANEL (non-fasting) Spe cimen Type: SERUM No comment entered. Ordering Provider: TRACY VILLANUEVA Report Released Date/Time: Feb 13, 2024 02:36 PM Reporting Lab: [address] [address] Performing Lab: [address] [address] UREA NITROGEN 15 mg/dL 7-25 GLUCOSE 173 mg/dL H 65-100 SODIUM 133 mmol/L L 135-145 POTASSIUM 4.2 mmol/L 3.5-5.0 CHLORIDE 100 mmol/L 100-110 CO2 22 meq/L 20-30 CREATININE, Serum 0.74 mg/dL 0.50-1.40 eGFR(CKD-EPI 2020) 89 mL/min >60 Apr 15, 2024 08:39 AM [facility] HEMOGLOBIN A1C PANEL Specimen Type: BLOOD Comment: [...] Apr 09, 2024 09:19 AM Reporting Lab: [address] [address] Performing Lab: [address] [address] HEMOGLOBIN A1C 6.3 H 4.0-5.6 Apr 15, 2024 08:39 AM [facility] LIPID PANEL FASTING Specimen Type: SERUM No comment entered. Ordering Provider: TRACY VILLANUEVA Report Released Date/Time: Apr 09, 2024 09:19 AM Reporting Lab: [address] [address] Performing Lab: [facility] [address] [address] CHOLESTEROL 137 mg/dL TRIGLYCERIDE 63 mg/dL 0-150 LDL calculated 63 mg/dL 0-129 CHOL/HDL 2.2 HDL CHOLESTEROL 61 mg/dL H 40-60 Apr 15, 2024 08:39 AM [facility] MICROALBUMIN CREATININE RATIO PANEL Spe cimen Type: URINE No comment entered. Ordering Provider: TRACY VILLANUEVA Report Released Date/Time: Apr 09, 2024 09:19 AM Reporting Lab: [facility] [address] [address] Performing Lab: [address] [address] MICROALBUMIN/C REATININE RATIO 83.0 mg/g H 0-29.9 MICROALBUMIN,Q UANTITATIVE 16.8 mg/dL RR UNAVAIL CREATININE URINE 202.40 mg/dL Apr 15, 2024 08:39 AM [facility] LIVER FUNCTION Specimen Type: SERUM No comment entered. Ordering Provider: TRACY VILLANUEVA Report Released Date/Time: Apr 09, 2024 09:19 AM Reporting Lab: [address] [address] Performing Lab: [address] [address] PROTEIN,TOTAL 7.3 g/dL 6.0-8.3 ALBUMIN 4.5 g/dL 3.5-5.0 ALKALINE PHOSPHATASE 62 U/L 40-150 AST 35 U/L H 5-34 ALT 27 U/L BILIRUBIN, TOTAL 2.5 mg/dL H 0.2-1.2 BILIRUBIN, DIRECT 0.7 mg/dL H 0-0.5 Apr 15, 2024 08:39 AM [facility] BASIC METABOLIC PANEL (fasting) Specime n Type: SERUM No comment entered. Ordering Provider: TRACY VILLANUEVA Report Released Date/Time: Apr 09, 2024 09:19 AM Reporting Lab: [address] [address] Performing Lab: [address] [address] UREA NITROGEN 9 mg/dL 7-25 GLUCOSE 159 mg/dL H 65-100 SODIUM 116 mmol/L LL 135-145 POTASSIUM 3.4 mmol/L L 3.5-5.0 CHLORIDE 81 mmol/L L 100-110 CO2 23 meq/L 20-30 CREATININE, Serum 0.69 mg/dL 0.50-1.40 eGFR(CKD-EPI 2020) >90 mL/min >60 Apr 15, 2024 08:39 AM [facility] VITAMIN D (25-OH) Specimen Type: SERUM No comment entered. Ordering Provider: TRACY VILLANUEVA Report Released Date/Time: Apr 09, 2024 09:19 AM Reporting Lab: [address] [address] Performing Lab: [address] [address] VITAMIN D (25-OH) 49 ng/mL 20-50 Apr 15, 2024 08:39 AM [facility] CBC Specimen Type: BLOOD Comment: MCHC >36, SPECIMEN 1+ ICTERIC, QNS FOR PLASMA REPLACEMENT INTERPRET RESULTS WITH CAUTION, SUGGEST PROPER REDRAW SHORT DRAW Ordering Provider: TRACY VILLANUEVA Report Released Date/Time: Apr 09, 2024 09:19 AM Reporting Lab: [address] [address] Performing Lab: [address] [address] WBC 8.70 10*3/uL 4.50-11.00 RBC 4.75 10*6/uL [...] 25, 2023 09:05 AM VA-TOBACCO NEVER USED [facility] [place] [facility] Tobacco Use History This section includes a history of the smoking, or tobacco-related health factors, that were collected on or before the date of the Encounter. The data comes from the MD facility where the Encounter took place. Date/Time Smoking Status/Tobac co Use Comment Facility Dec 13, 2022 03:00 PM VA-TOBACCO DOESNT USE WI 30 MIN WAKEUP [facility] [place] [facility] Dec 13, 2022 03:00 PM VA-TOBACCO USE 30 YEARS OR MORE [facility] [place] [facility] Dec 13, 2022 03:00 PM VA-TOBACCO USE ADVICE [facility] [place] [facility] Dec 13, 2022 03:00 PM VA-TOBACCO USE RISK MANAGEMENT PROFESSIONAL NO [facility] [place] [facility] Dec 13, 2022 03:00 PM VA-TOBACCO USE MED NO [facility] [place] [facility] Dec 13, 2022 03:00 PM VA-TOBACCO USER EVERY DAY [facility] [place] [facility] Nov 17, 2021 10:00 AM VA-TOBACCO USE 30 YEARS OR MORE [facility] [place] [facility] Nov 17, 2021 10:00 AM VA-TOBACCO USE ADVICE [facility] [place] [facility] Nov 17, 2021 10:00 AM VA-TOBACCO USE RISK MANAGEMENT PROFESSIONAL NO [facility] [place] [facility] Nov 17, 2021 10:00 AM VA-TOBACCO USE MED NO [facility] [place] [facility] Nov 17, 2021 10:00 AM VA-TOBACCO USE WI 30 MIN OF WAKEUP [facility] [place] [facility] Nov 17, 2021 10:00 AM VA-TOBACCO USER EVERY DAY [facility] [place] [facility] Oct 14, 2013 12:55 PM V1-PT NOT INTERESTED IN QUIT TOBACCO USE [facility] [place] [facility] May 07, 2013 05:04 PM CURRENT SMOKER trying to stop [facility] May 07, 2013 05:04 PM V1-PT DECLINES REF TO TOBACCO CESS [facility] May 07, 2013 05:04 PM V1-PT DECLINES TOBACCO CESSATION MEDS [facility] May 07, 2013 05:04 PM V1-PT READY TO QUIT TOBACCO USE [facility] Dec 03, 2012 08:23 AM V1-PT DECLINES REF TO TOBACCO CESS PRGM [facility] Dec 03, 2012 08:23 AM V1-PT DECLINES TOBACCO CESSATION MEDS [facility] Dec 03, 2012 08:23 AM V1-PT THINKING ABOUT QUIT TOBACCO USE [facility] Jun 05, 2012 08:45 AM CURRENT SMOKER 1/2ppd [facility] Jun 05, 2012 08:45 AM V1-PT DECLINES REF TO TOBACCO CESS [facility] Jun 05, 2012 08:45 AM V1-PT THINKING ABOUT QUIT TOBACCO USE [facility] Jun 05, 2012 08:45 AM V1-TOBACCO CESS MEDS NOT PRESCRIBED Vet wants to talk to his provider-He is nervous about taking meds to quit- but [facility] is [facility] Nov 25, 2011 09:14 AM V1-PT DECLINES REF TO TOBACCO CESS [facility] Nov 25, 2011 09:14 AM V1-PT DECLINES TOBACCO CESSATION MEDS [facility] Nov 25, 2011 09:14 AM V1-PT THINKING ABOUT QUIT [facility]BACCO [facility] May 06, 2011 01:02 PM CURRENT SMOKER [facility] May 06, 2011 01:02 PM V1-PT DECLINES TOBACCO CESSATION MEDS [facility] May 06, 2011 01:02 PM V1-PT NOT INTERESTED IN QUIT TOBACCO [facility] Sep 24, 2010 08:51 AM V1-PT DECLINES TOBACCO CESSATION MEDS [facility] [place] [facility] Sep 24, 2010 08:51 AM V1-PT THINKING ABOUT QUIT TOBACCO USE [facility] [place] [facility] Mar 22, 2010 07:58 AM CURRENT SMOKER 1/2 ppd [facility] [place] [facility] Feb 25, 2009 12:05 PM QUIT TOBACCO USE IN PAST YEAR [facility] [place] [facility] Aug 26, 2008 09:28 AM CURRENT SMOKER 1/2 ppd [facility] [place] [facility] Aug 26, 2008 09:28 AM V1-PT DECLINES REF TO TOBACCO CESS PRGM [facility] [place] [facility] Aug 26, 2008 09:28 AM V1-PT READY TO QUIT TOBACCO USE [facility] [place] [facility] Dec 19, 2007 10:08 AM V1-PT DECLINES REF TO TOBACCO CESS PRGM [facility] [place] [facility] Dec 19, 2007 10:08 AM V1-PT DECLINES TOBACCO CESSATION MEDS [facility] [place] [facility] Dec 19, 2007 10:08 AM V1-PT THINKING ABOUT QUIT TOBACCO USE [facility] [place] [facility] Sep 11, 2007 11:10 AM CURRENT SMOKER [facility] [place] [facility] Sep 11, 2007 11:10 AM V1-PT DECLINES REF TO TOBACCO CESS PRGM [facility] [place] [facility] Sep 11, 2007 11:10 AM V1-PT DECLINES TOBACCO CESSATION MEDS [facility] [place] [facility] Sep 11, 2007 11:10 AM V1-PT THINKING ABOUT QUIT TOBACCO USE [facility] [place] [facility] Feb 13, 2007 01:46 PM V1-PT DECLINES REF TO TOBACCO CESS PRGM [facility] [place] [facility] Feb 13, 2007 01:46 PM V1-PT DECLINES TOBACCO CESSATION MEDS [facility] [place] [facility] Feb 13, 2007 01:46 PM V1-PT THINKING ABOUT QUIT TOBACCO USE [facility] [place] [facility] Oct 02, 2006 08:28 AM QUIT TOBACCO USE IN PAST YEAR 3 months ago [facility] [place] [facility] Aug 19, 2005 08:33 AM QUIT TOBACCO USE IN PAST YEAR nonsmoker [facility] Sep 21, 2004 09:54 AM CURRENT SMOKER [facility] Sep 07, 2004 08:07 AM CURRENT SMOKER [facility] Sep 15, 2003 11:21 AM CURRENT SMOKER smokes one pk day [facility] Jul 23, 2003 01:57 PM CURRENT SMOKER [...] Apr 10, 2023 ADVANCE [facility]IVE [facility] Apr 19, 2007 ADVANCE DIRECTIVE VICTORIA JOHNSON [facility] Encounter Notes: All associated encounter notes This section contains the clinical notes associated to the Encounter. Date/Time Encounter Note(s) Provider Source Apr 10, 2024 12:00 AM NONVA CONSULT: LOCAL TITLE: COMMUNITY CARE-CONSULT RESULT NOTE STANDARD TITLE: NONVA CONSULT DATE OF NOTE: APR 10, 2024 ENTRY DATE: MAY 06, 2024@11:16:51 AUTHOR: MELISSA OSORIO EXP COSIGNER: URGENCY: STATUS: COMPLETED VistA Imaging - Scanned Document SCANNED DOCUMENT SIGNATURE NOT REQUIRED Electronically Filed: 05/06/2024 by: MELISSA OSORIO LICENSED PRACTICAL NURSE MELISSA OSORIO [facility]
--- OUTSIDE RECORDS SUMMARY | 2024-08-16 09:34 | XMS_ITS | Encounter Summary ---
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 Role Phone TRACY VILLANUEVA Primary Care [...] PHI MEDEX BRONZ E December 19, 2013 [id number] [phone] GUSTAVO ARAMBULA SR PATIENT [employer] MEDICARE SUPPLEMEN PHI MEDIC ARE SUPPL EMENT Jul 21, 2007 NONE [id number] Edgar ARAMBULA PATIENT [place] MED[place] SUPPLEMEN PHI MEDEX BRONZ E December 19, 2013 [id number] [phone] GUSTAVO ARAMBULA SR PATIENT [place] MEDICARE SUPPLEMEN PHI MEDEX BRONZ E December 19, 2013 [id number] Edgar ARAMBULA PATIENT MEDICARE (WNR) MEDICARE (M) PART A Oct 19, 2004 PART A [id number] Edgar ARAMBULAN PATIENT MEDICARE (WNR) MEDICARE (M) PART B Oct 19, 2004 PART B [id number] [id number] Edgar ARAMBULAN PATIENT MEDICARE (WNR) MEDICARE (M) PART A Oct 19, 2004 PART A [id number] [id number] [id number] Edgar ARAMBULAN PATIENT MEDICARE (WNR) MEDICARE (M) PART B Oct 19, 2004 PART B [id number] Edgar ARAMBULAN PATIENT MEDICARE (WNR) MEDICARE (M) PART A Oct 19, 2004 PART A [id number] Edgar ARAMBULAN PATIENT MEDICARE (WNR) MEDICARE () PART B Oct 19, 2004 PART B [id number] Edgar ARAMBULAN PATIENT MEDICARE (WNR) MEDICARE () PART A Oct 19, 2004 PART A [id number] Edgar ARAMBULA PATIENT MEDICARE (WNR) MEDICARE () PART B Oct 19, 2004 PART B [id number] [phone] Edgar ARAMBULAN PATIENT MEDICARE (WNR) MEDICARE () PART A Oct 19, 2004 PART A [id number] Edgar ARAMBULAN PATIENT MEDICARE (WNR) MEDICARE () PART B Oct 19, 2004 PART B [id number] [phone] Edgar ARAMBULA PATIENT Selected Encounter This section includes the information on record at [place] for the Encounter. Date/Time Encounter Type Encounter Description Reason Pro vider Source Apr 19, 2024 12:53 PM Outpatient Encounter ADMIN PAT ACTIVTIES (MASNONCT) IHE Encounter Template Text not used by [place] Plan of Treatment: Future Appointments (+ 6 months) and Future Tests (+/- 45 days) The Plan of Treatment section includes future care activities for the patient from all [facility]. This section includes future appointments and future orders which are active, pending or scheduled. Future Appointments This section includes appointments that were scheduled to occur 6 months from the date of the Encounter, up to a maximum of 20 appointments. The data comes from all [place] treatment facilities. Appointment Date/Time Appointment Type Appointme nt Facility Name Apr 26, 2024 11:00 AM AM[facility]ULATORY [facility]IC[facility] [place] [facility] Apr 30, 2024 08:30 AM AMBULATORY - PSYCHIATRY [facility] [place] [facility] May 01, 2024 11:00 AM AMBULATORY - NONE [facility] [place] [facility] May 14, 2024 11:30 AM AMBULATORY - MEDICINE [facility] May 31, 2024 11:00 AM AMBULATORY - REHAB MEDICIN E [facility] [place] [facility] May 31, 2024 12:00 PM AMBULATORY - MEDICINE [facility] [place] [facility] Jun 10, 2024 10:00 AM AMBULATORY - MEDICINE [facility] Jun 11, 2024 09:30 AM AMBULATORY - PS[facility]CHIATRY [facility] [place] [facility] Jun 13, 2024 10:00 AM AMBULATORY - MEDICINE [facility] [place] [facility] Jun 19, 2024 11:00 AM AMBULATORY - NONE [facility] [place] [facility] Jun 21, 2024 09:00 AM AMBULATORY - MEDICINE [facility] [place] [facility] Jun 21, 2024 09:15 AM AMBULATORY - MEDICINE [facility] [place] [facility] Jun 21, 2024 09:30 AM AMBULATORY - MEDICINE [facility] [place] [facility] Jun 26, 2024 08:00 AM AMBULATORY - MEDICINE [facility] [place] [facility] Jul 05, 2024 09:00 AM AMBULATORY - REHAB MEDICIN E [facility] [place] [facility] Jul 30, 2024 09:30 AM AMBULATORY - PSYCHIATRY [facility] [place] [facility] Aug 05, 2024 09:45 AM AMBULATORY - MEDICINE [facility] [place] [facility] Sep 06, 2024 11:00 AM AMBULATORY - MEDICINE [facility] [place] [facility] Sep 26, 2024 12:30 PM AMBULATORY - MEDICINE [facility] Oct 08, 2024 09:30 AM AMBULATORY - PSYCHIATRY [facility] Active, Pending, and Scheduled Orders This section includes a listing of several types of active, pending, and scheduled orders, including clinic medications orders, diagnostic test orders, procedure orders and consult orders; where the start date of the order is 45 days before the date of the Encounter or 45 days after the date of theEncounter. The data comes from all [place] treatment facilities. Test Date/Time Test Type Test Details Facility Name May 15, 2024 08:08 AM Consult Order [facility]-PULMONARY Cons Button Machine Operator's Choice [facility] Results: +/- 30 days of the [...] Range Comment Apr 25, 2024 07:51 AM [facility] HEMOGLOBIN A1C PANEL Specimen Type: BLOOD Comment: [...] Feb 13, 2024 02:36 PM Reporting Lab: [facility] [address] [facility] [address] Performing Lab: [address] [address] HEMOGLOBIN A1C 6.8 H 4.0-5.6 Apr 25, 2024 07:51 AM [facility] MICROALBUMIN CREATININE RATIO PANEL Spe cimen Type: URINE No comment entered. Ordering Provider: TRACY VILLANUEVA Report Released Date/Time: Feb 13, 2024 02:36 PM Reporting Lab: [address] [address] Performing Lab: [address] [address] MICROALBUMIN/C REATININE RATIO 16.0 mg/g 0-29.9 MICROALBUMIN,Q UANTITATIVE 2.3 mg/dL RR UNAVAIL CREATININE URINE 143.92 mg/dL Apr 25, 2024 07:51 AM [facility] BASIC METABOLIC PANEL (non-fasting) Spe cimen Type: SERUM No comment entered. Ordering Provider: TRACY VILLANUEVA Report Released Date/Time: Feb 13, 2024 02:36 PM Reporting Lab: [address] [address] Performing Lab: [address] [address] [facility]A NITROGEN 15 mg/dL 7-25 GLUCOSE 173 mg/dL H 65-100 SODIUM 133 mmol/L L 135-145 POTASSIUM 4.2 mmol/L 3.5-5.0 CHLORIDE 100 mmol/L 100-110 CO2 22 meq/L 20-30 CREATININE, Serum 0.74 mg/dL 0.50-1.40 eGFR(CKD-EPI 2020) 89 mL/min >60 Apr 15, 2024 08:39 AM [facility] HEMOGLOBIN A1C PANEL Specimen Type: BLOOD Comment: [...] Apr 09, 2024 09:19 AM Reporting Lab: [address] [address] Performing Lab: [address] [address] HEMOGLOBIN A1C 6.3 H 4.0-5.6 Apr 15, 2024 08:39 AM [facility] BASIC METABOLIC PANEL (fasting) Specime n Type: SERUM No comment entered. Ordering Provider: TRACY VILLANUEVA Report Released Date/Time: Apr 09, 2024 09:19 AM Reporting Lab: [address] [address] Performing Lab: [address] [address] UREA NITROGEN 9 mg/dL 7-25 GLUCOSE 159 mg/dL H 65-100 SODIUM 116 mmol/L LL 135-145 POTASSIUM 3.4 mmol/L L 3.5-5.0 CHLORIDE 81 mmol/L L 100-110 CO2 23 meq/L 20-30 CREATININE, Serum 0.69 mg/dL 0.50-1.40 eGFR(CKD-EPI 2020) >90 mL/min >60 Apr 15, 2024 08:39 AM [facility] MICROALBUMIN CREATININE RATIO PANEL Spe cimen Type: URINE No comment entered. Ordering Provider: TRACY VILLANUEVA Report Released Date/Time: Apr 09, 2024 09:19 AM Reporting Lab: [address] [address] Performing Lab: [address] [address] MICROALBUMIN/C REATININE RATIO 83.0 mg/g H 0-29.9 MICROALBUMIN,Q UANTITATIVE 16.8 mg/dL RR UNAVAIL CREATININE URINE 202.40 mg/dL Apr 15, 2024 08:39 AM [facility] LIVER FUNCTION Specimen Type: SERUM No comment entered. Ordering Provider: TRACY VILLANUEVA Report Released Date/Time: Apr 09, 2024 09:19 AM Reporting Lab: [address] [address] Performing Lab: [address] [address] PROTEIN,TOTAL 7.3 g/dL 6.0-8.3 ALBUMIN 4.5 g/dL 3.5-5.0 ALKALINE PHOSPHATASE 62 U/L 40-150 AST 35 U/L H 5-34 ALT 27 U/L BILIRUBIN, TOTAL 2.5 mg/dL H 0.2-1.2 BILIRUBIN, DIRECT 0.7 mg/dL H 0-0.5 Apr 15, 2024 08:39 AM [facility] LIPID PANEL FASTING Specimen Type: SERUM No comment entered. Ordering Provider: TRACY VILLANUEVA Report Released Date/Time: Apr 09, 2024 09:19 AM Reporting Lab: [address] [address] Performing Lab: [address] [address] CHOLESTEROL 137 mg/dL TRIGLYCERIDE 63 mg/dL 0-150 LDL calculated 63 mg/dL 0-129 CHOL/HDL 2.2 HDL CHOLESTEROL 61 mg/dL H 40-60 Apr 15, 2024 08:39 AM [facility] VITAMIN D (25-OH) Specimen Type: SERUM No comment entered. Ordering Provider: TRACY VILLANUEVA Report Released Date/Time: Apr 09, 2024 09:19 AM Reporting Lab: [address] [address] Performing Lab: [address] [address] VITAMIN D (25-OH) 49 ng/mL 20-50 Apr 15, 2024 08:39 AM [facility] CBC Specimen Type: BLOOD Comment: MCHC >36, SPECIMEN 1+ ICTERIC, QNS FOR PLASMA REPLACEMENT INTERPRET RESULTS WITH CAUTION, SUGGEST PROPER REDRAW SHORT DRAW Ordering Provider: TRACY VILLANUEVA Report Released Date/Time: Apr 09, 2024 09:19 AM Reporting Lab: [address] [address] Performing Lab: [address] [address] WBC 8.70 10*3/uL 4.50-11.00 RBC 4.75 10*6/uL [...] 25, 2023 09:05 AM VA-TOBACCO NEVER USED [facility] [place] [facility] Tobacco Use History This section includes a history of the smoking, or tobacco-related health factors, that were collected on or before the date of the Encounter. The data comes from the [place] facility where the Encounter took place. Date/Time Smoking Status/Tobac co Use Comment Facility Dec 13, 2022 03:00 PM VA-TOBACCO DOESNT USE WI 30 MIN WAKEUP [facility] [place] [facility] Dec 13, 2022 03:00 PM VA-TOBACCO USE 30 YEARS OR MORE [facility] [place] [facility] Dec 13, 2022 03:00 PM VA-TOBACCO USE ADVICE [facility] [place] [facility] Dec 13, 2022 03:00 PM VA-TOBACCO USE ACETONE [place]TON PASTER NO [facility] [place] [facility] Dec 13, 2022 03:00 PM VA-TOBACCO USE MED NO [facility] [place] [facility] Dec 13, 2022 03:00 PM VA-TOBACCO USER EVERY DAY [facility] [place] [facility] Nov 17, 2021 10:00 AM VA-TOBACCO USE 30 YEARS OR MORE [facility] [place] [facility] Nov 17, 2021 10:00 AM VA-TOBACCO USE ADVICE [facility] [place] [facility] Nov 17, 2021 10:00 AM VA-TOBACCO USE ACETONE [place] NO [facility] [place] [facility] Nov 17, 2021 10:00 AM VA-TOBACCO USE MED NO [facility] [place] [facility] Nov 17, 2021 10:00 AM VA-TOBACCO USE WI 30 MIN OF WAKEUP [facility] [place] [facility] Nov 17, 2021 10:00 AM VA-TOBACCO USER EVERY DAY [facility] [place] [facility] Oct 14, 2013 12:55 PM V1-PT NOT INTERESTED IN QUIT TOBACCO USE [facility] [place] [facility] May 07, 2013 05:04 PM CURRENT SMOKER trying to stop [facility] May 07, 2013 05:04 PM V1-PT DECLINES REF TO TOBACCO CESS PRGM [facility] May 07, 2013 05:04 PM V1-PT DECLINES TOBACCO CESSATION MEDS [facility] May 07, 2013 05:04 PM V1-PT READY TO QUIT TOBACCO USE [facility] Dec 03, 2012 08:23 AM V1-PT DECLINES REF TO TOBACCO CESS PRGM [facility] Dec 03, 2012 08:23 AM V1-PT DECLINES TOBACCO CESSATION MEDS [facility] Dec 03, 2012 08:23 AM V1-PT THINKING ABOUT QUIT TOBACCO USE [facility] Jun 05, 2012 08:45 AM CURRENT SMOKER 1/2ppd [facility] Jun 05, 2012 08:45 AM V1-PT DECLINES REF TO TOBACCO CESS PRGM [facility] Jun 05, 2012 08:45 AM V1-PT THINKING ABOUT QUIT TOBACCO USE [facility] Jun 05, 2012 08:45 AM V1-TOBACCO CESS MEDS NOT PRESCRIBED Vet wants to talk to his provider-He is nervous about taking meds to quit- but he is interested in quitting [facility] Nov 25, 2011 09:14 AM V1-PT DECLINES REF TO TOBACCO CESS PRGM [facility] Nov 25, 2011 09:14 AM V1-PT DECLINES TOBACCO CESSATION MEDS [facility] Nov 25, 2011 09:14 AM V1-PT THINKING ABOUT QUIT TOBACCO USE [facility] May 06, 2011 01:02 PM CURRENT SMOKER [facility] May 06, 2011 01:02 PM V1-PT DECLINES TOBACCO CESSATION MEDS [facility] May 06, 2011 01:02 PM V1-PT NOT INTERESTED IN QUIT TOBACCO USE [facility] [place] [facility] Sep 24, 2010 08:51 AM V1-PT DECLINES TOBACCO CESSATION MEDS [facility] [place] [facility] Sep 24, 2010 08:51 AM V1-PT THINKING ABOUT QUIT TOBACCO USE [facility] [place] [facility] Mar 22, 2010 07:58 AM CURRENT SMOKER 1/2 ppd [facility] [place] [facility] Feb 25, 2009 12:05 PM QUIT TOBACCO USE IN PAST YEAR [facility] [place] [facility] Aug 26, 2008 09:28 AM CURRENT SMOKER 1/2 ppd [facility] [place] [facility] Aug 26, 2008 09:28 AM V1-PT DECLINES REF TO TOBACCO CESS PRGM [facility] [place] [facility] Aug 26, 2008 09:28 AM V1-PT READY TO QUIT TOBACCO USE [facility] [place] [facility] Dec 19, 2007 10:08 AM V1-PT DECLINES REF TO TOBACCO CESS PRGM [facility] [place] [facility] Dec 19, 2007 10:08 AM V1-PT DECLINES TOBACCO CESSATION MEDS [facility] [place] [facility] Dec 19, 2007 10:08 AM V1-PT THINKING ABOUT QUIT TOBACCO USE [facility] [place] [facility] Sep 11, 2007 11:10 AM CURRENT SMOKER [facility] [place] [facility] Sep 11, 2007 11:10 AM V1-PT DECLINES REF TO TOBACCO CESS PRGM [facility] [place] [facility] Sep 11, 2007 11:10 AM V1-PT DECLINES TOBACCO CESSATION MEDS [facility] [place] [facility] Sep 11, 2007 11:10 AM V1-PT THINKING ABOUT QUIT TOBACCO USE [facility] [place] [facility] Feb 13, 2007 01:46 PM V1-PT DECLINES REF TO TOBACCO CESS PRGM [facility] [place] [facility] Feb 13, 2007 01:46 PM V1-PT DECLINES TOBACCO CESSATION MEDS [facility] [place] [facility] Feb 13, 2007 01:46 PM V1-PT THINKING ABOUT QUIT TOBACCO USE [facility] [place] [facility] Oct 02, 2006 08:28 AM QUIT TOBACCO USE IN PAST YEAR 3 months ago [facility] Aug 19, 2005 08:33 AM QUIT TOBACCO USE IN PAST YEAR [facility] Sep 21, 2004 09:54 AM CURRENT SMOKER [facility] Sep 07, 2004 08:07 AM CURRENT SMOKER [facility] Sep 15, 2003 11:21 AM CURRENT SMOKER smokes one pk day [facility] Jul 23, 2003 01:57 PM CURRENT SMOKER [facility] Advance Directives: All historical and current Section [...] Apr 10, 2023 ADVANCE DIRECTIVE GEORGEESSIE DOZIER [facility] Apr 19, 2007 ADVANCE DIRECTIVE [facility] Encounter Notes: All associated encounter notes This section contains the clinical notes associated to the Encounter. Date/Time Encounter Note(s) Provider Source Apr 19, 2024 02:37 PM ADDENDUM: LOCAL TITLE: Addendum STANDARD TITLE: ADDENDUM DATE OF NOTE: APR 19, 2024@14:37:38 ENTRY DATE: APR 19, 2024@14:37:39 AUTHOR: RONEL JHA EXP COSIGNER: URGENCY: STATUS: COMPLETED S/W SON AND SCHEDULED HOSP FOLLOW UP FOR 05/14, HE IS CONCERNED THAT IS TOO FAR OUT FOR A HOSP FOLLOW UP AND IS ASKING IF LABS CAN BE DONE IN THE MEANTIME SINCE HIS SODIUM LEVELS ARE SO HIGH. /reginaldo/ RONEL JHA ADVANCED MANAGER DISCOVERY Signed: 04/19/2024 14:38 Receipt Acknowledged By: 04/24/2024 14:01 /es/ TINO ZAPIEN LPN Licensed Practical Nurse for MARCUS DOZIER 04/24/2024 13:34 /es/ ZACHARY ABBOTT RN REGISTERED NURSE === --- Original Document --- 04/19/24 CCC: SCHEDULING ADMINISTRATION: Patient Demographics Patient Name: GUSTAVO ARAMBULA Patient Primary Phone: [phone] Patient Primary Address: [facility] [address] [place] [address] Patient : 1940 Patient Age: 83 Caller/Recipient Relation to Patient: Other If Other Describe Relation to Patient: son Caller Name: Gustavo Administrative Administrative Note Reason: Outside Care Performed Administrative Note Comments: Gustavo (son) called stating that patient was discharged from [facility] today for low sodium. [facility] recommended that patient have a f/u w. pcp next week. Please call Gustavo at [phone]. IMPORTANT: This note was created by [facility] Clinical Contact Center staff. Please do not alert the staff member by adding them as a signer for future communications. Alerts are not monitored by this user. /es/ ELIA ESTEVEZ [facility] AMSA Signed: 04/19/2024 12:53 Receipt Acknowledged By: 04/19/2024 14:07 /es/ MARCUS DOZIER LPN LPN 04/19/2024 13:42 /es/ ZACHARY ABBOTT RN REGISTERED NURSE 04/19/2024 ADDENDUM STATUS: COMPLETED Adding AMSA to call and schedule /reginaldo/ ZACHARY ABBOTT RN REGISTERED NURSE Signed: 04/19/2024 13:42 Receipt Acknowledged By: 04/19/2024 14:37 /reginaldo/ RONEL JHA ADVANCED MANAGER DISCOVERY for RABIA MANN 04/19/2024 ADDENDUM STATUS: COMPLETED LM ON /reginaldo/ RONEL JHA ADVANCED MANAGER DISCOVERY Signed: 04/19/2024 14:21 RONEL JHA [facility] [place] [facility] Apr 19, 2024 01:42 PM ADDENDUM: LOCAL TITLE: Addendum STANDARD TITLE: ADDENDUM DATE OF NOTE: APR 19, 2024@13:42:01 ENTRY DATE: APR 19, 2024@13:42:01 AUTHOR: ZACHARY ABBOTTIGNER: URGENCY: STATUS: COMPLETED Adding AMSA to call and schedule /reginaldo/ ZACHARY ABBOTT RN REGISTERED NURSE Signed: 04/19/2024 13:42 Receipt Acknowledged By: 04/19/2024 14:37 /reginaldo/ RONEL JHA ADVANCED MANAGER DISCOVERY for RABIA MANN === --- Original Document --- 04/19/24 CCC: SCHEDULING ADMINISTRATION: Patient Demographics Patient Name: GUSTAVO ARAMBULA Patient Primary Phone: [phone] Patient Primary [address]: [address] [place] [id number] Patient : 1940 Patient Age: 83 Caller/Recipient Relation to Patient: Other If Other Describe Relation to Patient: son Caller Name: Gustavo Administrative Administrative Note Reason: Outside Care Performed Administrative Note Comments: Gustavo (son) called stating that patient was discharged from [facility] today for low sodium. [facility] recommended that patient have a f/u w. pcp next week. Please call Gustavo at [phone]. IMPORTANT: This note was created by [facility] Clinical Contact Center staff. Please do not alert the staff member by adding them as a signer for future communications. Alerts are not monitored by this user. /es/ ELIA ESTEVEZ 1 [facility] AMSA Signed: 04/19/2024 12:53 Receipt Acknowledged By: 04/19/2024 14:07 /reginaldo/ MARCUS DOZIER LPN LPN 04/19/2024 13:42 /chavez ABBOTT RN REGISTERED NURSE 04/19/2024 ADDENDUM STATUS: COMPLETED LM ON /reginaldo/ RONEL JHA ADVANCED MANAGER DISCOVERY Signed: 04/19/2024 14:21 ZACHARY ABBOTT [facility] [place] [facility] Apr 19, 2024 12:53 PM ADMINISTRATIVE NOTE: LOCAL TITLE: CCC: SCHEDULING ADMINISTRATION STANDARD TITLE: ADMINISTRATIVE NOTE DATE OF NOTE: APR 19, 2024@12:53:28 ENTRY DATE: APR 19, 2024@12:53:28 AUTHOR: ELIA BADILLO COSIGNER: URGENCY: STATUS: COMPLETED CCC: SCHEDULING ADMINISTRATION Has ADDENDA Patient Demographics Patient Name: GUSTAVO ARAMBULA Patient Primary Phone: [phone] Patient Primary [address]: [address] [place] [id number] Patient : 1940 Patient Age: 83 Caller/Recipient Relation to Patient: Other If Other Describe Relation to Patient: son Caller Name: Gustavo Administrative Administrative Note Reason: Outside Care Performed Administrative Note Comments: Gustavo (son) called stating that patient was discharged from [facility] today for low sodium. [facility] recommended that patient have a f/u w. pcp next week. Please call Gustavo at [phone]. IMPORTANT: This note was created by [facility] Clinical Contact Center staff. Please do not alert the staff member by adding them as a signer for future communications. Alerts are not monitored by this user. /reginaldo/ ELIA BADILLO VISN 1 [facility] AMSA Signed: 04/19/2024 12:53 Receipt Acknowledged By: 04/19/2024 14:07 /es/ MARCUS DOZIER LPN LPN 04/19/2024 13:42 /reginaldo/ ZACHARY ABBOTT RN REGISTERED NURSE 04/19/2024 ADDENDUM STATUS: COMPLETED Adding [facility] to call and schedule /reginaldo/ ZACHARY ABBOTT RN REGISTERED NURSE Signed: 04/19/2024 13:42 Receipt Acknowledged By: 04/19/2024 14:37 /es/ RONEL JHA ADVANCED MANAGER DISCOVERY for RABIA MANN 04/19/2024 ADDENDUM STATUS: COMPLETED LM ON /reginaldo/ RONEL JHA ADVANCED MANAGER DISCOVERY Signed: 04/19/2024 14:21 04/19/2024 ADDENDUM STATUS: COMPLETED S/W SON AND SCHEDULED HOSP FOLLOW UP FOR 05/14, HE IS CONCERNED THAT IS TOO FAR OUT FOR A HOSP FOLLOW UP AND IS ASKING IF LABS CAN BE DONE IN THE MEANTIME SINCE HIS SODIUM LEVELS ARE SO HIGH. /reginaldo/ RONEL JHA ADVANCED MANAGER DISCOVERY Signed: 04/19/2024 14:38 Receipt Acknowledged By: * AWAITING SIGNATURE * MARCUS DOZIER * AWAITING SIGNATURE * ZACHARY ABBOTT KATIE L AR [facility]L [facility]
--- OUTSIDE RECORDS SUMMARY | 2024-08-16 09:35 | XMS_ITS ---
Author Name [facility] [place] [facility] [place] Address [address] [place] [address] Care Team Providers Care [employer] Sales Representative Name Role Phone TRACY VILLANUEVA Primary Care [...] PHI MEDEX BRONZ E December 19, 2013 [id number] GUSTAVO ARAMBULA SR PATIENT [employer] MEDICARE SUPPLEMEN PHI MEDIC ARE SUPPL EMENT Jul 21, 2007 NONE [id number] Edgar ARAMBULA PATIENT BCBS ID MEDICARE SUPPLEMEN PHI MEDEX BRONZ E December 19, 2013 [id number] GUSTAVO ARAMBULA SR PATIENT [place] MEDICARE SUPPLEMEN PHI MEDEX BRONZ E December 19, 2013 [id number] Edgar ARAMBULAN PATIENT MEDICARE (WNR) MEDICARE (M) PART A Oct 19, 2004 PART A [id number] Edgar ARAMBULA [place] PATIENT MEDICARE ([place]) MEDICARE (M) PART B Oct 19, 2004 PART B [id number] [phone] [id number] Edgar ARAMBULA [place] PATIENT MEDICARE (WNR) MEDICARE () PART A Oct 19, 2004 PART A [id number] [phone] [id number] Edgar ARAMBULAN PATIENT MEDICARE (WNR) MEDICARE () PART B Oct 19, 2004 PART B [id number] Edgar ARAMBULA [place] PATIENT MEDICARE ([place]) MEDICARE () PART A Oct 19, 2004 PART A [id number] Edgar ARAMBULA [place] PATIENT MEDICARE ([place]) MEDICARE () PART B Oct 19, 2004 PART B [id number] Edgar ARAMBULAN PATIENT MEDICARE (WNR) MEDICARE () PART A Oct 19, 2004 PART A [id number] [phone] Edgar ARAMBULAN PATIENT MEDICARE (WNR) MEDICARE () PART B Oct 19, 2004 PART B [id number] Edgar ARAMBULA [place] PATIENT MEDICARE ([place]) MEDICARE () PART A Oct 19, 2004 PART A [id number] Edgar ARAMBULAN PATIENT MEDICARE (WNR) MEDICARE (M) PART B Oct 19, 2004 PART B [id number] Edgar ARAMBULAN PATIENT Selected Encounter This section includes the information on record at [place] for the Encounter. Date/Time Encounter Type Encounter Description Reason Pro vider Source Mar 07, 2024 09:00 AM Outpatient Encounter [facility] Encounter Template Text not used by [place] Plan of Treatment: Future Appointments (+ 6 [...] AMBULATORY - NONE [facility] [place] [facility] Mar 11, 2024 09:00 AM AMBULATORY - MEDICINE [facility] Apr 04, 2024 11:00 AM AMBULATORY - PSYCHIATRY [facility] [place] [facility] Apr 08, 2024 09:30 AM AMBULATORY - MEDICINE [facility] [place] [facility] Apr 10, 2024 10:45 AM AMBULATORY - MEDICINE [facility] [place] [facility] Apr 26, 2024 11:00 AM AMBULATORY [facility] MEDICINE [facility] [place] [facility] Apr 30, 2024 08:30 AM AMBULATORY - PS[facility]CHIATRY [facility] [place] [facility] May 01, 2024 11:00 AM AMBULATORY - NONE [facility] [place] [facility] May 14, 2024 11:30 AM AM[facility]ULATORY - MEDICINE [facility] May 31, 2024 11:00 AM AMBULATORY - REHAB MEDICIN E [facility] [place] [facility] May 31, 2024 12:00 PM AMBULATORY - MEDICINE [facility] [place] [facility] Jun 10, 2024 10:00 AM AMBULATORY - MEDICINE [facility] Jun 11, 2024 09:30 AM AMBULATORY - PS[facility]CHIATRY [facility] [place] [facility] Jun 13, 2024 10:00 AM AMBULATORY - MEDICINE [facility] [place] [facility] Jun 19, 2024 11:00 AM AMBULATORY - NONE [facility] [place] [facility] Jun 21, 2024 09:00 AM AMBULATORY - MEDICINE [facility] [place] [facility] Jun 21, 2024 09:15 AM AMBULATORY - MEDICINE [facility] [place] [facility] Jun 21, 2024 09:30 AM AMBULATORY - MEDICINE [facility] [place] [facility] Jun 26, 2024 08:00 AM AMBULATORY [facility] MEDICINE [facility] [place] [facility] Jul 05, 2024 09:00 AM AMBULATORY - REHAB MEDICIN E [facility] [place] [facility] Social History: Smoking Status (Most [...] VA-TOBACCO NEVER USED [place] [facility] [place] [facility] Tobacco Use History This section includes a history of the smoking, or tobacco-related health factors, that were collected on or before the date of the Encounter. The data comes from the [place] facility where the Encounter took place. 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 [facility] [place] [facility] Dec 13, 2022 03:00 PM VA-TOBACCO USE MED NO [facility] [place] [facility] Dec 13, 2022 03:00 PM VA-TOBACCO USER EVERY DAY [facility] [place] [facility] Nov 17, 2021 10:00 AM VA-TOBACCO USE 30 YEARS OR MORE [facility] [place] [facility] Nov 17, 2021 10:00 AM VA-TOBACCO USE ADVICE [facility] [place] [facility] Nov 17, 2021 10:00 AM 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 [facility] [place] [facility] Nov 17, 2021 10:00 AM VA-TOBACCO USE MED NO [facility] [place] [facility] Nov 17, 2021 10:00 AM VA-TOBACCO USE WI 30 MIN OF WAKEUP [facility] Nov 17, 2021 10:00 AM VA-TOBACCO USER EVERY DAY [facility] Oct 14, 2013 12:55 PM V1-PT NOT INTERESTED IN QUIT TOBACCO USE [facility] [place] [facility] May 07, 2013 05:04 PM CURRENT SMOKER trying to stop [facility] May 07, 2013 05:04 PM V1-PT DECLINES REF TO TOBACCO CESS [facility] May 07, 2013 05:04 PM V1-PT DECLINES TOBACCO CESSATION MEDS [facility] May 07, 2013 05:04 PM V1-PT READY TO QUIT TOBACCO USE [facility] Dec 03, 2012 08:23 AM V1-PT DECLINES REF TO TOBACCO CESS PRGM [facility] Dec 03, 2012 08:23 AM V1-PT DECLINES TOBACCO CESSATION MEDS [facility] Dec 03, 2012 08:23 AM V1-PT THINKING ABOUT QUIT TOBACCO USE [facility] Jun 05, 2012 08:45 AM CURRENT SMOKER 1/2ppd [facility] Jun 05, 2012 08:45 AM V1-PT DECLINES REF TO TOBACCO CESS PRGM [facility] Jun 05, 2012 08:45 AM V1-PT THINKING ABOUT QUIT TOBACCO USE [facility] Jun 05, 2012 08:45 AM V1-TOBACCO CESS MEDS NOT PRESCRIBED Vet wants to talk to his provider-He is nervous about taking meds to quit- but he is interested in [facility] Nov 25, 2011 09:14 AM V1-PT DECLINES REF TO TOBACCO CESS PRGM [facility] Nov 25, 2011 09:14 AM V1-PT DECLINES TOBACCO CESSATION MEDS [facility] Nov 25, 2011 09:14 AM V1-PT THINKING ABOUT QUIT TOBACCO USE [facility] May 06, 2011 01:02 PM CURRENT SMOKER [facility] [place] [facility] May 06, 2011 01:02 PM V1-PT DECLINES TOBACCO CESSATION MEDS [facility] [place] [facility] May 06, 2011 01:02 PM V1-PT NOT INTERESTED IN QUIT TOBACCO USE [facility] [place] [facility] Sep 24, 2010 08:51 AM V1-PT DECLINES TOBACCO CESSATION MEDS [facility] [place] [facility] Sep 24, 2010 08:51 AM V1-PT THINKING ABOUT QUIT TOBACCO USE [facility] [place] [facility] Mar 22, 2010 07:58 AM CURRENT SMOKER 1/2 ppd [facility] [place] [facility] Feb 25, 2009 12:05 PM QUIT TOBACCO USE IN PAST YEAR [facility] [place] [facility] Aug 26, 2008 09:28 AM CURRENT SMOKER 1/2 ppd [facility] [place] [facility] Aug 26, 2008 09:28 AM V1-PT DECLINES REF TO TOBACCO CESS PRGM [facility] [place] [facility] Aug 26, 2008 09:28 AM V1-PT READY TO QUIT TOBACCO USE [facility] [place] [facility] Dec 19, 2007 10:08 AM V1-PT DECLINES REF TO TOBACCO CESS PRGM [facility] [place] [facility] Dec 19, 2007 10:08 AM V1-PT DECLINES TOBACCO CESSATION MEDS [facility] [place] [facility] Dec 19, 2007 10:08 AM V1-PT THINKING ABOUT QUIT TOBACCO [facility] [place] [facility] Sep 11, 2007 11:10 AM CURRENT SMOKER [facility] [place] [facility] Sep 11, 2007 11:10 AM V1-PT DECLINES REF TO TOBACCO CESS PRGM [facility] [place] [facility] Sep 11, 2007 11:10 AM V1-PT DECLINES TOBACCO CESSATION MEDS [facility] [place] [facility] Sep 11, 2007 11:10 AM V1-PT THINKING ABOUT QUIT TOBACCO USE [facility] [place] [facility] Feb 13, 2007 01:46 PM V1-PT DECLINES REF TO TOBACCO CESS PR[facility] [place] [facility] Feb 13, 2007 01:46 PM V1-PT DECLINES TOBACCO CESSATION MEDS [facility] Feb 13, 2007 01:46 PM V1-PT THINKING ABOUT QUIT [facility] Oct 02, 2006 08:28 AM QUIT TOBACCO USE IN PAST YEAR 3 months ago [facility] Aug 19, 2005 08:33 AM QUIT TOBACCO USE IN PAST YEAR nonsmoker [facility] Sep 21, 2004 09:54 AM CURRENT SMOKER [facility] Sep 07, 2004 08:07 AM CURRENT SMOKER [facility] Sep 15, 2003 11:21 AM CURRENT SMOKER smokes one pk day [facility] Jul 23, 2003 01:57 PM CURRENT SMOKER [facility] Advance Directives: All historical [...] Apr 10, 2023 ADVANCE DIRECTIVE GEORGEESSIE DOZIER [facility] RADHA [facility] Apr 19, 2007 ADVANCE DIRECTIVE ELIZABETHSEAMUSJason [facility] Radiology Reports: +/- 30 days of the [...] the Encounter. The data comes from all [place] treatment facilities. Date/Time Radiology Report Provider Source Feb 15, 2024 09:[address] THORAX W/O CONT: GUSTAVO ARAMBULA [id number] -[id number] M Exm Date: FEB 15, 2024@09:56 Req Phys: TRACY VILLANUEVA Pat Loc: CWM/SO/PACT 7 (Req'g Loc) Img Loc: NHM/CT Service: [facility] , (Case [id number] COMPLETE) CT THORAX W/O CONT (CT Detailed) CPT:47086 Reason for Study: smoker x 65 years Clinical History: Report Status: Verified Date Reported: FEB 20, 2024 Date Verified: FEB 20, 2024 Carpenter Form E-Sig: Report: CT THORAX W/O CONT HISTORY: smoker x 65 years COMPARISON: April 19, 2006 TECHNIQUE: Helical CT of the chest, with multiplanar reformats including maximum intensity projection (MIP) reconstructions, was performed at the local [place] facility. 1019 images were received by the [place] National Teleradiology Program (NTP) for interpretation. RADIATION [...] as above. READING PHYSICIAN: Ck Jean M.D. -[phone] 02/20/2024 12:57 PDT [facility] National Teleradiology Program [phone] (For Medical Practitioner Use Only) Attention Patients / Veterans: If you have questions or concerns about these test results, please contact your ordering provider or primary care team. Primary Diagnostic Code: SIGNIFICANT ABNORMALITY, ATTN NEEDED Primary Interpreting Staff: RADIOLOGY,OUTSIDE SERVICE, Staff Physician / RADIOLOGY,OUTSIDE SERVICE [place] [facility] Encounter Notes: All associated encounter notes This section contains the clinical notes associated to the Encounter. Date/Time Encounter Note(s) Provider Source May 20, 2024 01:59 PM CLERICAL NOTE: LOCAL TITLE: APPOINTMENT NO SHOW STANDARD TITLE: CLERICAL NOTE DATE OF NOTE: MAY 20, 2024@13:59 ENTRY DATE: MAY 20, 2024@13:59:31 AUTHOR: LANA COLINDRES COSIGNER: URGENCY: STATUS: COMPLETED APPOINTMENT NO SHOW Has ADDENDA Patient Name: GUSTAVO ARAMBULA Patient SSN: [id number] Date and time of Appointment No show : 03/07/24 09:00 PATIENT PHONE - PHONE NUMBER [CELLULAR] - Patient's medical record was reviewed. Follow-up actions were determined and initiated: Please check/complete as applies: [X]Telephoned Directly [ ]Re-scheduled for next available appt [X]Sent a N0-show letter ( must call for appointment) [ ]Other (Emergent/Overbook, etc.): Additional Comments: Vet is inpatient at [facility] and not able to attend appointment Future Clinic Visits 05/31/2024 11:00 CWM NO AUDIO EVAL E 05/31/2024 12:00 CWM/NO/OPTOMETRY/OSHINSK I 06/10/2024 10:00 CWM/SO/PODIATRY/ROSS 06/11/2024 09:30 CWM/NO/VVC/MHC/DHRUV 06/13/2024 10:00 COM CARE-ORTHO GEN 06/19/2024 11:00 CWM/SO/NUTRITION1 08/05/2024 09:45 CWM/NO/VVC/PAIN [facility] CLINIC 08/08/2024 10:30 CWM/SO/PACT 7 09/06/2024 11:00 CWM/SO/PHARM/PACT 2 /reginaldo/ LANA COLINDRES PSYCHIATRIST Signed: 05/20/2024 14:00 Receipt Acknowledged By: 05/21/2024 16:30 /reginaldo/ SOCO COOPER ADVANCED ACCIDENT REPORT CLERK 05/21/2024 ADDENDUM STATUS: COMPLETED [place] has been no showed on 03/07 as instructed in the above note. Thank you. /chavez COOPER ADVANCED ACCIDENT REPORT CLERK Signed: 05/21/2024 16:30 LANA COLINDRES [facility]
--- OUTSIDE RECORDS SUMMARY | 2024-08-16 09:35 | XMS_ITS | Encounter Summary ---
Author Name [facility] [facility] [place] [facility] [place] Address [address] [place] [address] Care Team Providers Care Bed Manager Name Role Phone TRACY VILLANUEVA Primary [...] PHI MEDEX BRONZ E December 19, 2013 [id number] GUSTAVO ARAMBULA SR PATIENT B[employer]ERS LIFE [employer] CASUALTY MEDICARE SUPPLEMEN PHI MEDIC ARE SUPPL EMENT Jul 21, 2007 NONE [id number] Edgar ARAMBULA [place]IENT [place] SUPPLEMEN PHI MEDEX BRONZ E December 19, 2013 [id number] [phone] GUSTAVO ARAMBULA SR PATIENT [place] OF [place] ([place] MEDICARE SUPPLEMEN PHI MEDEX BRONZ E December 19, 2013 [id number] FILEMONEEdgar [place] PAT[place]IC[place] (WNR) MEDICARE () PART A Oct 19, 2004 PART A [id number] [id number] FILEMONEEdgar [place]) MEDICARE (M) PART B Oct 19, 2004 PART B [id number] FILEMONEEdgar [place] PAT[place] MEDICARE ([place]) MEDICARE () PART A Oct 19, 2004 PART A [id number] [id number] SEVABIEEdgar [place] PAT[place]) MEDICARE () PART B Oct 19, 2004 PART B [id number] FILEMONEEdgar [place] PAT[place]) MEDICARE () PART A Oct 19, 2004 PART A [id number] SEVIGNEEdgar [place]) MEDICARE () PART B Oct 19, 2004 PART B [id number] [id number] SEVABIEEdgar [place] PAT[place] MEDIC[place] ([place]) MEDICARE () PART A Oct 19, 2004 PART A [id number] FILEMONEEdgar [place] PAT[place]IC[place]) MEDICARE () PART B Oct 19, 2004 PART B [id number] SEVABIEEdgar [place]) MEDICARE () PART A Oct 19, 2004 PART A [id number] SEVABIEEdgar [place] PAT[place]IC[place] ([place]) MEDICARE () PART B Oct 19, 2004 PART B [id number] [phone] SEVABIEEdgar [place] PATIENT Selected Encounter This section includes the information on record at [place] for the Encounter. Date/Time Encounter Type Encounter Description Reason Provider Source May 31, 2024 12:00 PM COMPRE OPH EXAM NEW PT 1/> OPTOMETRY ICD-10-CM E11.9 Type 2 diabetes mellitus without complications JOHN ARTEAGA IHRichy Encounter Template Text not used by [facility] Assessments - Encounter Diagnoses This section includes the primary and secondary diagnoses documented for the Encounter. Date/Time Primary/Secondary Diagnosis Diagnosis Name Provider Source May 31, 2024 12:39 PM PRIMARY Type 2 diabetes mellitus without complications OSJOHN LR [facility] [place] [facility] May 31, 2024 12:39 PM SECONDARY Dry eye syndrome of bilateral lacrimal glands OSHINSKIE,JOHN MEDINAD J [facility] [place] [facility] May 31, 2024 12:39 PM SECONDARY Hypermetropia, bilateral OSHINSKIE,JOHN MEDINAD J [facility] [place] [facility] May 31, 2024 12:39 PM SECONDARY Macular cyst, hole, or pseudohole, right eye OSHINSKIE,JOHN MEDINAD J [facility] [place] [facility] May 31, 2024 12:39 PM SECONDARY Open angle with borderline findings, low risk, bilateral OSHINSKIE,JOHN MEDINAD J [facility] [place] [facility] May 31, 2024 12:39 PM SECONDARY Presbyopia OSHINSKIRichy,JOHN HANEYD J [facility] [place] [facility] May 31, 2024 12:39 PM SECONDARY Presence of intraocular lens OSHICHELSEABC,JHON MEDINAD J [place] [facility] [place] [facility] Plan of Treatment: Future Appointments [...] 20 appointments. The data comes from all [place] treatment facilities. Appointment Date/Time Appointment Type Appointme nt Facility Name Jun 10, 2024 10:00 [facility] Jun 11, 2024 09:30 AM AMBULATORY - PSYCHIATRY [place] [facility] [place] [facility] Jun 13, 2024 10:00 AM AMBULATORY - MEDICINE [place] [facility] [place] [facility] Jun 19, 2024 11:00 AM AMBULATORY - NONE [facility] [place] [facility] Jun 21, 2024 09:00 AM AMBULATORY - MEDICINE [place] [facility] [place] [facility] Jun 21, 2024 09:15 AM AMBULATORY - MEDICINE [place] [facility] [place] [facility] Jun 21, 2024 09:30 AM AMBULATORY - MEDICINE [place] [facility] [place] [facility] Jun 26, 2024 08:00 AM AMBULATORY - MEDICINE [place] [facility] [place] [facility] Jul 05, 2024 09:00 AM AMBULATORY - REHAB MEDICIN E [facility] [place] [facility] Jul 30, 2024 09:30 AM AMBULATORY - PSYCHIATRY [place] [facility] [place] [facility] Aug 05, 2024 09:45 AM AMBULATORY - MEDICINE [place] [facility] [place] [facility] Sep 06, 2024 11:00 AM AMBULATORY - MEDICINE [place] [facility] [place] [facility] Sep 26, 2024 12:30 PM [facility] Oct 08, 2024 09:30 AM AMBULATORY - PSYCHIATRY [place] [facility] [place] [facility] Oct 21, 2024 09:30 AM [facility] Active, Pending, and Scheduled Orders This section includes a listing of several types of active, pending, and scheduled orders, including clinic medications orders, diagnostic test orders, procedure orders and consult orders; where the start date of the order is 45 days before the date of the Encounter or 45 days after the date of theEncounter. The data comes from all [place] treatment facilities. Test Date/Time Test Type Test Details Facility Name May 15, 2024 08:08 AM Consult Order [facility] Cons Manager Quantitative's Choice [place] Social History: Smoking Status (Most current) and Tobacco Use (All prior to encounter date) This section includes the most current, and the historical, smoking and tobacco- related health factors from the [place] facility where the Encounter took place. Current Smoking Status This section includes the most current smoking, or tobacco-related health factor, from the [place] facility where the Encounter took place. Date/Time Current Smoking Status Comment Facil ity December 25, 2023 09:05 AM [place]-TOBACCO NEVER USED [facility] Tobacco Use History This section includes a history of the smoking, or tobacco-related health factors, that were collected on or before the date of the Encounter. The data comes from the [place] facility where the Encounter took place. Date/Time Smoking Status/Tobac co Use Comment Facility Dec 13, 2022 03:00 PM VA-TOBACCO DOESNT USE WI 30 MIN WAKEUP [place] [facility] [place] [facility] Dec 13, 2022 03:00 PM VA-TOBACCO USE 30 YEARS OR MORE [facility] [place] [facility] Dec 13, 2022 03:00 PM VA-TOBACCO USE ADVICE [facility] [place] [facility] Dec 13, 2022 03:00 PM VA-TOBACCO USE SPECIALTY PERSON NO [facility] [place] [facility] Dec 13, 2022 03:00 PM VA-TOBACCO USE MED NO [facility] [place] [facility] Dec 13, 2022 03:00 PM VA-TOBACCO USER EVERY DAY [place] [facility] [place] [facility] Nov 17, 2021 10:00 AM VA-TOBACCO USE 30 YEARS OR MORE [place] [facility] [place] [facility] Nov 17, 2021 10:00 AM VA-TOBACCO USE ADVICE [place] [facility] [place] [facility] Nov 17, 2021 10:00 AM VA-TOBACCO USE SPECIALTY PERSON NO [place] [facility] [place] [facility] Nov 17, 2021 10:00 AM VA-TOBACCO USE MED NO [facility] [place] [facility] Nov 17, 2021 10:00 AM VA-TOBACCO USE WI 30 MIN OF WAKEUP [place] [facility] [place] [facility] Nov 17, 2021 10:00 AM VA-TOBACCO USER EVERY DAY [place] [facility] [place] [facility] Oct 14, 2013 12:55 PM V1-PT NOT INTERESTED IN QUIT TOBACCO USE [facility] [place] [facility] May 07, 2013 05:04 PM CURRENT SMOKER trying to stop [place] [facility] [place] [facility] May 07, 2013 05:04 PM V1-PT DECLINES REF TO TOBACCO CESS PRGM [place] [facility] [place] [facility] May 07, 2013 05:04 PM V1-PT DECLINES TOBACCO CESSATION MEDS [place] [facility] [place] [facility] May 07, 2013 05:04 PM V1-PT READY TO QUIT TOBACCO USE [facility] [place] [facility] Dec 03, 2012 08:23 AM V1-PT DECLINES REF TO TOBACCO CESS PRGM [place] [facility] [place] [facility] Dec 03, 2012 08:23 AM V1-PT DECLINES TOBACCO CESSATION MEDS [facility] [place] [facility] Dec 03, 2012 08:23 AM V1-PT THINKING ABOUT QUIT TOBACCO USE [place] [facility] [place] [facility] Jun 05, 2012 08:45 AM CURRENT SMOKER 1/2ppd [facility] Jun 05, 2012 08:45 AM V1-PT DECLINES REF TO TOBACCO CESS PRGM [facility] Jun 05, 2012 08:45 AM V1-PT THINKING ABOUT QUIT TOBACCO USE [place] [facility] [place] [facility] Jun 05, 2012 08:45 AM V1-TOBACCO CESS MEDS NOT PRESCRIBED Vet wants to talk to his provider-He is nervous about taking meds to quit- but he is interested in [facility] Nov 25, 2011 09:14 AM V1-PT DECLINES REF TO TOBACCO CESS PRGM [facility] Nov 25, 2011 09:14 AM V1-PT DECLINES TOBACCO CESSATION MEDS [facility] Nov 25, 2011 09:14 AM V1-PT THINKING ABOUT QUIT TOBACCO USE [facility] May 06, 2011 01:02 PM CURRENT SMOKER [facility] May 06, 2011 01:02 PM V1-PT DECLINES TOBACCO CESSATION MEDS [facility] May 06, 2011 01:02 PM V1-PT NOT INTERESTED IN QUIT TOBACCO USE [place] [facility] [place] [facility] Sep 24, 2010 08:51 AM V1-PT DECLINES TOBACCO CESSATION MEDS [facility] Sep 24, 2010 08:51 AM V1-PT THINKING ABOUT QUIT TOBACCO USE [place] [facility] [place] [facility] Mar 22, 2010 07:58 AM CURRENT SMOKER 1/2 ppd [facility] Feb 25, 2009 12:05 PM QUIT TOBACCO USE IN PAST YEAR [place] [facility] [place] [facility] Aug 26, 2008 09:28 AM CURRENT SMOKER 1/2 ppd [place] [facility] [place] [facility] Aug 26, 2008 09:28 AM V1-PT DECLINES REF TO TOBACCO CESS PRGM [facility] [place] [facility] Aug 26, 2008 09:28 AM V1-PT READY TO QUIT TOBACCO USE [place] [facility] [place] [facility] Dec 19, 2007 10:08 AM V1-PT DECLINES REF TO TOBACCO CESS PRGM [facility] [place] [facility] Dec 19, 2007 10:08 AM V1-PT DECLINES TOBACCO CESSATION MEDS [facility] [place] [facility] Dec 19, 2007 10:08 AM V1-PT THINKING ABOUT QUIT TOBACCO USE [place] [facility] [place] [facility] Sep 11, 2007 11:10 AM CURRENT SMOKER [place] [facility] [place] [facility] Sep 11, 2007 11:10 AM V1-PT DECLINES REF TO TOBACCO CESS PRGM [facility] [place] [facility] Sep 11, 2007 11:10 AM V1-PT DECLINES TOBACCO CESSATION MEDS [facility] [place] [facility] Sep 11, 2007 11:10 AM V1-PT THINKING ABOUT QUIT TOBACCO USE [facility] [place] [facility] Feb 13, 2007 01:46 PM V1-PT DECLINES REF TO TOBACCO CESS PRGM [facility] [place] [facility] Feb 13, 2007 01:46 PM V1-PT DECLINES TOBACCO CESSATION MEDS [facility] [place] [facility] Feb 13, 2007 01:46 PM V1-PT THINKING ABOUT QUIT TOBACCO USE [facility] [place] [facility] Oct 02, 2006 08:28 AM QUIT TOBACCO USE IN PAST YEAR 3 months ago [facility] [place] [facility] Aug 19, 2005 08:33 AM QUIT TOBACCO USE IN PAST YEAR nonsmoker [facility] [place] [facility] Sep 21, 2004 09:54 AM CURRENT SMOKER [facility] [place] [facility] Sep 07, 2004 08:07 AM CURRENT SMOKER [facility] [place] [facility] Sep 15, 2003 11:21 AM CURRENT SMOKER smokes one pk day [facility] [place] [facility] Jul 23, 2003 01:57 PM CURRENT SMOKER [place] [facility] Advance Directives: All historical and current Section Date Range: From patient's date of to the date document was created. This section includes ALL of a patient's completed or amended [place] Advance and Rescinded Directives. The entries below indicate that a directive exists for the patient, but an actual copy is not included with this document. The data comes from all [place] facilities. Date Advance Directives Provider Source Apr 10, 2023 ADVANCE DIRECTIVE ESSIE STARK [place] [facility] Apr 19, 2007 ADVANCE DIRECTIVE VICTORIA JOHNSON [facility] Encounter Notes: All associated encounter notes This section contains the clinical notes associated to the Encounter. Date/Time Encounter Note(s) Provider Source May 31, 2024 12:11 PM OPTOMETRY CONSULT: LOCAL TITLE: CONSULT REPORT/OPTOMETRY STANDARD TITLE: OPTOMETRY CONSULT DATE OF NOTE: MAY 31, 2024@12:11 ENTRY DATE: MAY 31, 2024@12:11:14 AUTHOR: BARBARA ARTEAGA COSIGNER: URGENCY: STATUS: COMPLETED 83 yo MALE last examined here in 2012. Getting eye care in [place] since then. 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 c/o glare during the day also gets eye irritation + DM for 4-5 yrs 6.8 A1c denies eye pain, redness, i flashes, floaters, diplopia, new ORO denies eye injury( )hit with baseball OD 20 + years ago, also hit by kickback from [employer] denies family hx of AMD/glaucoma( x ) Active Problem Arteriosclerotic heart disease I25. 05/22/2024 TRACY VILLANUEVA HERMILO - Generalized anxiety disorder 02/14/2024 TRACY VILLANUEVA Male urinary stress incontinence N3 02/13/2024 TRACY VILLANUEVA Chronic pain G89.4 11/06/2023 JOSE NORTON Diabetes mellitus type 2 E11.9 05/14/2024 TRACY VILLANUEVA Long-term current use of anticoagul [...] LANA COLINDRES Chronic obstructive lung disease J4 05/14/2024 CAITLIN PENA Peripheral vascular disease I73.9 05/15/2024 TRACY VILLANUEVA Jc's esophagus K22.70 02/14/2024 TRACY VILLANUEVA Disorder of lumbar disc (SNOMED CT 09/25/2023 TRACY VILLANUEVA Depression (SNOMED CT 96780962) F33 12/10/2021 TRAVIS GOMES Dry Eye Syndromes [...] 10/31/2013 JOVANY NAYLOR Tobacco use (SNOMED CT 647326421) Z 02/20/2024 GUSTAVO MCKEON Active Outpatient Medications (including Supplies): Active Outpatient [...] HOURS FOR PREVENTION OF BLOOD CLOTS 5) ATORVASTATIN CALCIUM 40MG TAB TAKE ONE-HALF TABLET BY ACTIVE MOUTH ONCE DAILY FOR CHOLESTEROL 6) CITALOPRAM HYDROBROMIDE 40MG TAB TAKE ONE-HALF TABLET ACTIVE BY MOUTH ONCE DAILY FOR DEPRESSION AND ANXIETY 7) DEPEND UNDERWEAR,MAXIMUM,MEN SM/MED USE 1 BRIEF ACTIVE DIRECTED TWICE DAILY FOR INCONTINENCE 8) HYDROCORTISONE 1% OINT APPLY THIN LAYER TOPICALLY ACTIVE TWICE DAILY NEEDED FOR ATOPIC DERMATITIS 9) MELATONIN 5MG CAP/TAB TAKE ONE CAPSULE/TABLET BY ACTIVE MOUTH AT BEDTIME FOR INSOMNIA 10) METFORMIN HCL 750MG 24HR SA TAB TAKE ONE TABLET BY ACTIVE MOUTH TWICE DAILY FOR TYPE 2 DIABETES MELLITUS 11) NUTRITION SUPL ENSURE PLUS/CONNIE LIQUID DRINK 1 CAN BY HOLD MOUTH TWICE DAILY 12) PANTOPRAZOLE NA 40MG EC TAB TAKE ONE TABLET BY MOUTH ACTIVE EVERY MORNING 30 MINUTES BEFORE BREAKFAST 13) QUETIAPINE FUMARATE 25MG TAB TAKE ONE TABLET BY MOUTH ACTIVE AT BEDTIME 14) SENNOSIDES 8.6MG TAB TAKE ONE TABLET BY MOUTH TWICE ACTIVE DAILY NEEDED FOR CONSTIPATION 15) TIOTROPIUM 2.5MCG/ACTUAT 60D ORAL INHL INHALE 2 PUFFS ACTIVE BY MOUTH ONCE DAILY 16) TRIAMCINOLONE ACETONIDE 0.1% CREAM APPLY A THIN LAYER HOLD TOPICALLY EVERY 5 DAYS allergies: GEMFIBROZIL, LISINOPRIL HEMOGLOBIN A1C TREND Collection DT Spec HGBA1c 04/25/2024 07:51 BLOOD 6.8 H 04/15/2024 08:39 BLOOD 6.3 H 12/25/2023 09:26 BLOOD 7.7 H 09/01/2023 10:29 BLOOD 6.7 H 12/14/2022 07:54 BLOOD 6.4 H VA with OD 20/200-2 OS 20/20 current Rx OD +[id number] OS +2.00-1.66c459 refraction OD +1.75-0.36m115 20/200+2 OS +1.75-1.66z929 20/20-2 pupils: PERRL - RAPD OU EOM: full OU Conf: full OU near cover test slit lamp cornea clear OU AC D and Q OU lids/lashes clear OU mild dermatochalasis OU iris brown, flat pu[il border irregular OU conj bulbar pinguecula OU temporally palpebral clear OU angles gr 4 IOP OD 22 OS 18 time: 12:25 pm Side effects of dilation medications discussed, patient stated clear understanding, and patient consented to dilation. Dilation warning given re: driving while dilated, blurred vision for several hours dilated 1% tropicamide(x ) 2.5 % phenylephrine(x ) lens PC IOL OU faint PCO ou vitreous clear OU c/d OD 0.6 OS 0.5 healthy rims OU no disc hemes OU disc color pink OU disc margins distinct ou macula macular hole OD OS clear no diabetic retinopathy OU or macular edema OU vessels 2/3 periph CR scaring SN OD OS clear A 1) DM without retinopathy OU 2) pseudophakia OU 3) macular hole OD 4) hyperopia OU and presbyopia 5) dry eye OU 6) low risk glaucoma suspect OU(moderate cupping and IOP asymmetry) P 1) Pt ed to control glcuose well and get annual eye exams 2) order new glasses and sunglasses 3) use bifocals for eye protection 4) order new glasses and sunglasses 5) Refresh qid OU 6) RTC one month for VF and OCT. Glaucoma risk explained med reconciliation: All Ophthalmic medications were reconciled ( x ) ( ) pt is not taking any ophthalmic medications ( ) the following ophthalmic meds were discontinued: pt deferred receiving list of medications Glaucoma: Patient was educated regarding glaucoma/glaucoma suspect as well as the natural history of this diagnosis including prognosis. Stress importance of compliance and persistency with glaucoma medication when prescribed, timely follow up as well as the role of ancillary testing. Exclusion criteria for ancillary testing include significantly reduced acuity, mental status changes affecting the patient's ability to attend to the test or other physical limitations that would prohibit the patient's ability to participate in testing. Diabetes: Patient was educated regarding diabetes and related ocular complications including retinopathy and cataract formation as well as other related systemic complications. The importance of good blood sugar control, blood sugar testing as recommended by their PCP and the importance of timely follow up were all emphasized. Medication Reconciliation: Outpatient: Has the patient been taking medications as documented in the EMLR? YES: The patient has been taking medications as documented in the EMLR. Essential Medication List for Review used to complete this medication reconciliation. INCLUDED IN THIS LIST: Alphabetical list of active outpatient prescriptions dispensed from this [place] (local) and dispensed from another [place] or [facility] facility (remote) as well as inpatient [...] whether with a VA or non-VA provider. Medication List: JLV Link Data on this list may not be complete. Please check JLV. Allergies/ADRs (Tool #5) FACILITY ALLERGY/ADR -------- [place] [facility] [place] [facility] GEMFIBROZIL [place] [facility] [place] [facility] LISINOPRIL [facility] NO KNOWN ALLERGIES [facility] NO KNOWN ALLERGIES Med. Reconciliation (Tool #1) INCLUDED IN THIS LIST: Alphabetical list of active outpatient prescriptions dispensed from this [place] (local) and dispensed from another [place] or [facility] facility (remote) as well as inpatient orders (local pending and active), local clinic medications, locally documented non-VA medications, and local prescriptions that have or been discontinued in the past 90 days. Non-VA Meds Last Documented On: Nov 17, 2021 NOTE The display of VA prescriptions dispensed from another [place] or [facility] facility (remote) is limited to active outpatient prescription entries matched to National Drug File at the originating site and may not include some items such as investigational drugs, compounds, etc. NOT INCLUDED IN THIS LIST: Medications self-entered by the patient into personal health records (i.e. Estrogen Gene Test) are NOT included in this list. Non-VA medications documented outside this [place], remote inpatient orders (regardless of status) and remote clinic medications are NOT included in this list. The patient and provider must always discuss medications the patient is taking, regardless of where the medication was dispensed or obtained. OUTPT ACETAMINOPHEN 500MG TAB (Status = Active) TAKE TWO TABLETS BY MOUTH TWICE DAILY FOR PAIN Rx# [id number] Last Released: 03/12/24 Qty/Days Supply: 400/90 Rx Expiration Date: 03/12/25 Refills Remainin Indication: FOR PAIN OUTPT ALBUTEROL 90MCG (CFC-F) 200D ORAL INHL (Status = Active) INHALE 1 TO 2 PUFFS BY MOUTH EVERY 6 HOURS NEEDED FOR BRONCHOSPASM Rx# [id number] Last Released: 03/12/24 Qty/Days Supply: Rx Expiration Date: 03/12/25 Refills Remainin Indication: FOR BRONCHOSPASM OUTPT AMLODIPINE BESYLATE 10MG TAB (Status = Discontinued) TAKE ONE TABLET BY MOUTH ONCE DAILY FOR BLOOD PRESSURE/HEART, DO NOT TAKE WITH GRAPEFRUIT JUICE Rx# [id number] Last Released: 11/23/23 Qty/Days Supply: 90 Rx Expiration Date: 09/25/24 Refills Remainin OUTPT AMLODIPINE BESYLATE 10MG TAB (Status = Active) TAKE ONE TABLET BY MOUTH ONCE DAILY FOR BLOOD PRESSURE/HEART, DO NOT TAKE WITH GRAPEFR[employer] JUICE Rx# [id number] Last Released: 03/13/24 Qty/Days Supply: 90/ Rx Expiration Date: 03/12/25 Refills Remainin OUTPT APIXABAN 5MG TAB (Status = Active) TAKE ONE TABLET BY MOUTH EVERY 12 HOURS FOR PREVENTION OF BLOOD CLOTS Rx# [id number] Last Released: 05/20/24 Qty/Days Supply: 180/90 Rx Expiration Date: 11/10/24 Refills Remainin Indication: FOR PREVENTION OF BLOOD CLOTS OUTPT ASPIRIN 81MG EC TAB (Status = Discontinued) TAKE ONE TABLET BY MOUTH ONCE DAILY TO PREVENT STROKE/HEART ATTACK Rx# [id number] Last Released: 09/25/23 Qty/Days Supply: 120/ Rx Expiration Date: 09/25/24 Refills Remainin OUTPT ATORVASTATIN CALCIUM 40MG TAB (Status = Discontinued) TAKE ONE-HALF TABLET BY MOUTH ONCE DAILY FOR CHOLESTEROL Rx# [id number] Last Released: 12/25/23 Qty/Days Supply: 45 Rx Expiration Date: 08/22/24 Refills Remainin OUTPT ATORVASTATIN CALCIUM 40MG TAB (Status = Active) TAKE ONE-HALF TABLET BY MOUTH ONCE DAILY FOR CHOLESTEROL Rx# [id number] Last Released: 03/12/24 Qty/Days Supply: 45 Rx Expiration Date: 03/12/25 Refills Remainin OUTPT BUPRENORPHINE 15MCG/HR PATCH (Status = Discontinued) APPLY 1 PATCH TO SKIN EVERY 5 DAYS FOR PAIN (REMOVE PATCH BEFORE APPLYING A NEW PATCH) Rx# [id number] Last Released: 02/19/24 Qty/Days Supply: 02/17 Rx Expiration Date: 08/19/24 Refills Remainin Indication: FOR PAIN OUTPT BUPRENORPHINE 5MCG/HR PATCH (Status = Discontinued) APPLY 2 PATCH 5MCG/HOUR TO SKIN EVERY 7 DAYS FOR 7 DAYS, THEN APPLY 1 PATCH 5MCG/HR EVERY 7 DAYS FOR 14 DAYS FOR PAIN (REMOVE PATCH BEFORE APPLYING A NEW PATCH) Rx# [id number] Last Released: 03/18/24 Qty/Days Supply: 09/27 Rx Expiration Date: 04/14/24 Refills Remainin Indication: FOR PAIN OUTPT BUPRENORPHINE 5MCG/HR PATCH (Status = Discontinued) APPLY 1 PATCH TO SKIN EVERY 5 DAYS FOR PAIN (REMOVE PATCH BEFORE APPLYING A NEW PATCH) Rx# [id number] Last Released: 03/29/24 Qty/Days Supply: 02/17 Rx Expiration Date: 09/28/24 Refills Remainin Indication: FOR PAIN OUTPT CARBOXYMETHYLCELLULOSE NA 0.5% OPH SOLN (Status = Pending) INSTILL ONE DROP INTO EACH EYE FOUR TIMES A DAY Login Date: 05/31/24 Qty/Days Supply: Refills Ordered: 11 OUTPT CITALOPRAM HYDROBROMIDE 20MG TAB (Status = Discontinued) TAKE ONE-HALF TABLET BY MOUTH ONCE DAILY FOR 4 DAYS, THEN TAKE ONE TABLET ONCE DAILY FOR DEPRESSION AND ANXIETY Rx# [id number] Last Released: 04/05/24 Qty/Days Supply: Rx Expiration Date: 07/03/24 Refills Remainin Indication: FOR MAJOR DEPRESSIVE DISORDER OUTPT CITALOPRAM HYDROBROMIDE 40MG TAB (Status = Active) TAKE ONE-HALF TABLET BY MOUTH ONCE DAILY FOR DEPRESSION AND ANXIETY Rx# [id number] Last Released: 05/01/24 Qty/Days Supply: Rx Expiration Date: 07/29/24 Refills Remainin Indication: FOR MAJOR DEPRESSIVE DISORDER OUTPT FLUTICAS 500/SALMETEROL 50 INHL DISK 60 (Status = Discontinued) INHALE 1 PUFF BY MOUTH TWICE DAILY - RINSE MOUTH AFTER USE Rx# [id number] Last Released: 03/13/24 Qty/Days Supply: Rx Expiration Date: 03/12/25 Refills Remainin Indication: FOR CONTROLLER MEDICATION FOR ASTHMA OUTPT HYDROCHLOROTHIAZIDE 25MG TAB (Status = Discontinued) TAKE ONE-HALF TABLET BY MOUTH ONCE DAILY FOR HIGH BLOOD PRESSURE Rx# [id number] Last Released: 02/15/24 Qty/Days Supply: Rx Expiration Date: 02/13/25 Refills Remainin Indication: FOR HIGH BLOOD PRESSURE OUTPT HYDROCORTISONE 1% OINT (Status = Active) APPLY THIN LAYER TOPICALLY TWICE DAILY NEEDED FOR ATOPIC DERMATITIS Rx# [id number] Last Released: 03/13/24 Qty/Days Supply: Rx Expiration Date: 03/12/25 Refills Remainin Indication: FOR ATOPIC DERMATITIS OUTPT LORAZEPAM 0.5MG TAB (Status = Discontinued) TAKE ONE HALF TABLET BY MOUTH TWICE DAILY NEEDED Rx# [id number] Last Released: 03/01/24 Qty/Days Supply: Rx Expiration Date: 08/17/24 Refills Remainin Indication: PANIC ATTACKS OUTPT LORAZEPAM 0.5MG TAB (Status = Discontinued) TAKE ONE HALF TABLET BY MOUTH TWICE DAILY NEEDED Rx# [id number] Last Released: 04/01/24 Qty/Days Supply: Rx Expiration Date: 09/07/24 Refills Remainin Indication: PANIC ATTACKS OUTPT MELATONIN 5MG CAP/TAB (Status = Active) TAKE ONE CAPSULE/TABLET BY MOUTH AT BEDTIME FOR INSOMNIA Rx# [id number] Last Released: 04/26/24 Qty/Days Supply: 90/ Rx Expiration Date: 03/02/25 Refills Remainin Indication: FOR INSOMNIA OUTPT METFORMIN HCL 750MG 24HR SA TAB (Status = Discontinued) TAKE TWO TABLETS BY MOUTH ONCE DAILY FOR TYPE 2 DIABETES MELLITUS Rx# [id number] Last Released: 03/27/24 Qty/Days Supply: 180 Rx Expiration Date: 03/26/25 Refills Remainin Indication: FOR TYPE 2 DIABETES MELLITUS OUTPT METFORMIN HCL 750MG 24HR SA TAB (Status = Active) TAKE ONE TABLET BY MOUTH TWICE DAILY FOR TYPE 2 DIABETES MELLITUS Rx# [id number] Last Released: 05/15/24 Qty/Days Supply: 180/90 Rx Expiration Date: 05/15/25 Refills Remainin Indication: FOR TYPE 2 DIABETES MELLITUS OUTPT MIRTAZAPINE 15MG TAB (Status = Discontinued) TAKE ONE AND ONE-HALF TABLETS BY MOUTH AT BEDTIME Rx# [id number] Last Released: 02/15/24 Qty/Days Supply: 135/90 Rx Expiration Date: 05/15/24 Refills Remainin Indication: ANXIETY, NAUSEA, SLEEP OUTPT NICOTINE 14MG/24HR PATCH (Status = ) APPLY 1 PATCH TO SKIN ONCE DAILY (REMOVE OLD PATCH BEFORE APPLYING NEW PATCH) Rx# [id number] Last Released: 03/12/24 Qty/Days Supply: 42/42 Rx Expiration Date: 04/22/24 Refills Remainin Indication: FOR SMOKING CESSATION OUTPT NICOTINE 7MG/24HR PATCH (Status = ) APPLY 1 PATCH TO SKIN ONCE DAILY (REMOVE OLD PATCH BEFORE APPLYING NEW PATCH) * USE AFTER 14 MG PATCHES * Rx# [id number] Last Released: 03/16/24 Qty/Days Supply: 70 Rx Expiration Date: 05/20/24 Refills Remainin Indication: FOR SMOKING CESSATION OUTPT NUTRITION SUPL ENSURE PLUS/CONNIE LIQUID (Status = On Hold) DRINK 1 CAN BY MOUTH TWICE DAILY Rx# [id number] Last Released: Qty/Days Supply: Rx Expiration Date: 02/13/25 Refills Remainin Indication: FOR NUTRITIONAL SUPPLEMENTATION OUTPT ONDANSETRON 4MG ORAL DISINTEGRATING TAB (Status = ) PLACE ONE TABLET ON THE TONGUE EVERY 8 HOURS NEEDED FOR NAUSEA AND VOMITING (ALLOW TABLET TO DISSOLVE ON TONGUE, AND SWALLOW WITH SALIVA) Rx# [id number] Last Released: 03/13/24 Qty/Days Supply: Rx Expiration Date: 05/10/24 Refills Remainin Indication: FOR NAUSEA AND VOMITING OUTPT PANTOPRAZOLE NA 40MG EC TAB (Status = Active) TAKE ONE TABLET BY MOUTH EVERY MORNING 30 MINUTES BEFORE BREAKFAST Rx# [id number] Last Released: 05/20/24 Qty/Days Supply: 90 Rx Expiration Date: 11/10/24 Refills Remainin OUTPT QUETIAPINE FUMARATE 25MG TAB (Status = Discontinued) TAKE ONE TABLET BY MOUTH AT BEDTIME SLEEP, DEPRESSION, ANXIETY Rx# [id number] Last Released: 04/05/24 Qty/Days Supply: Rx Expiration Date: 04/05/25 Refills Remainin Indication: SLEEP, DEPRESSION, ANXIETY OUTPT QUETIAPINE FUMARATE 25MG TAB (Status = Active) TAKE ONE TABLET BY MOUTH AT BEDTIME Rx# [id number] Last Released: 05/01/24 Qty/Days Supply: 90 Rx Expiration Date: 05/01/25 Refills Remainin Indication: SLEEP, DEPRESSION, ANXIETY OUTPT SENNOSIDES 8.6MG TAB (Status = Active) TAKE ONE TABLET BY MOUTH TWICE DAILY NEEDED FOR CONSTIPATION Rx# [id number] Last Released: 01/19/24 Qty/Days Supply: 200/90 Rx Expiration Date: 09/25/24 Refills Remainin Indication: FOR CONSTIPATION OUTPT TIOTROPIUM 2.5MCG/ACTUAT 60D ORAL INHL (Status = Active) INHALE 2 PUFFS BY MOUTH ONCE DAILY Rx# [id number] Last Released: 03/12/24 Qty/Days Supply: 09/19 Rx Expiration Date: 03/12/25 Refills Remainin Indication: FOR BRONCHOSPASM PREVENTION WITH COPD OUTPT TRAZODONE HCL 100MG TAB (Status = Discontinued) TAKE ONE-HALF TABLET BY MOUTH AT BEDTIME INSOMNIA Rx# [id number] Last Released: 03/01/24 Qty/Days Supply: Rx Expiration Date: 09/12/24 Refills Remainin Indication: INSOMNIA OUTPT TRIAMCINOLONE ACETONIDE 0.1% CREAM (Status = On Hold) APPLY A THIN LAYER TOPICALLY EVERY 5 DAYS Rx# [id number] Last Released: Supply: Rx Expiration Date: 11/06/24 Refills Remainin Indication: FOR ATOPIC DERMATITIS SUPPLIES OUTPT DEPEND UNDERWEAR,MAXIMUM,MEN SM/MED (Status = Active) USE 1 BRIEF DIRECTED TWICE DAILY FOR INCONTINENCE Rx# [id number] Last Released: 02/16/24 Qty/Days Supply: 152/ Rx Expiration Date: 02/13/25 Refills Remainin Indication: URINARY INCONTINENCE OUTPT TABLET CUTTER (PILL SPLITTER) (Status = ) USE CUTTER DIRECTED BY PROVIDER TO SPLIT TABLETS Rx# [id number] Last Released: 02/14/24 Qty/Days Supply: Rx Expiration Date: 05/13/24 Refills Remainin PHARMACY TERMS AND POSSIBLE PATIENT ACTIONS INPT = [facility] inpatient order IV = [facility] intravenous medication OUTPT = [place] outpatient prescription PHARMACY POSSIBLE PATIENT TERMS EXPLANATION ACTIONS -------- - ACTIVE A prescription that can be If you have refills, filled at the local [place] pharmacy. you may request a refill of this prescription from your [facility] pharmacy. CLINIC A medication you received during If you have questions a visit to a [place] clinic or about this medication emergency department. contact your [place] healthcare team. DISCONTINUED A prescription your provider has Contact your [facility] stopped. It is no longer healthcare team if you available to be sent to you or need more of this picked up at the [place] pharmacy medication. window. A prescription which is too old Contact your [facility] to fill. This does not refer to healthcare team if you the expiration date of the need more of this medication in the container. medication. NON-VA A medication that came from If this medication someplace other than a [facility] information is pharmacy. This may be a incorrect or out of prescription from either the VA date, please tell your or non VA providers that was VA healthcare team. filled outside the [facility]. Or, it may be an [id number] (OTC), herbal, dietary supplements or sample medication. ON HOLD An active prescription that will Contact your [facility] not be filled until pharmacy pharmacy when you need resolves the issue. more of this medication. PARKED An active prescription that will Contact your [facility] not be filled until the patient pharmacy when you need requests it. this medication. PENDING This prescription order has been If you have been sent to the pharmacy for review instructed to start and is not ready yet. this medication now, contact your [facility] pharmacy. SUSPENDED An active prescription that is Contact your [place] not scheduled to be filled yet. pharmacy if you need You should receive it before this medication now. you run out. ==== /reginaldo/ Barbara J Oshinskie OD Fee Basis Professor/Nurse Anesthetist Signed: 05/31/2024 12:53 BARBARA [place] [facility]
--- OUTSIDE RECORDS SUMMARY | 2024-08-16 09:35 | XMS_ITS | Encounter Summary ---
Author Name [facility] [place] [facility] [place] Address [address] [place] [address] Care Team Providers Care Tinner Helper Name Role Phone TRACY VILLANUEVA Primary Care [...] PHI MEDEX BRONZ E December 19, 2013 [id number] [phone] GUSTAVO ARAMBULA SR PATIENT [employer] CASUALTY MEDICARE SUPPLEMEN PHI MEDIC ARE SUPPL EMENT Jul 21, 2007 NONE [id number] [phone] Edgar ARAMBULA [place]IENT [place] SUPPLEMEN PHI MEDEX BRONZ E December 19, 2013 [id number] GUSTAVO ARAMBULA SR PATIENT [place] OF [place] MEDICARE SUPPLEMEN PHI MEDEX BRONZ E December 19, 2013 [id number] [phone] SEVABIEEdgar [place] PAT[place]IC[place] ([place]) MEDICARE () PART A Oct 19, 2004 PART A [id number] [id number] FILEMONEEdgar [place] PAT[place]) MEDICARE () PART B Oct 19, 2004 PART B [id number] [phone] [id number] FILEMONEEdgar [place] PAT[place]ICARE ([place]) MEDICARE () PART A Oct 19, 2004 PART A [id number] [phone] [id number] SEVIGNEEdgar [place] PAT[place]) MEDICARE () PART B Oct 19, 2004 PART B [id number] [id number] SEVABIEEdgar [place] PAT[place]) MEDICARE () PART A Oct 19, 2004 PART A [id number] SEVIGNEEdgar [place] PAT[place]) MEDICARE () PART B Oct 19, 2004 PART B [id number] SEVIGNEEdgar [place] PAT[place]IC[place]) MEDICARE () PART A Oct 19, 2004 PART A [id number] FILEMONEEdgar [place] PAT[place]ICARE ([place]) MEDICARE () PART B Oct 19, 2004 PART B [id number] [phone] SEVIGNEEdgar [place] PAT[place]) MEDICARE () PART A Oct 19, 2004 PART A [id number] SEVABIEEdgar [place] PAT[place]) MEDICARE () PART B Oct 19, 2004 PART B [id number] SEVIGNEEdgar [place] PATIENT Selected Encounter This section includes the information on record at [facility] for the Encounter. Date/Time Encounter Type Encounter Description Reason Provider Source May 31, 2024 11:00 AM HEARING AID FITTING/CHECKIN G AUDIOLOGY ICD-10-CM H90.3 Sensorineural hearing loss, bilateral SENIOR,GEE LANDRY Encounter Template Text not used by [facility] Assessments - Encounter Diagnoses This section includes the primary and secondary diagnoses documented for the Encounter. Date/Time Primary/Secondary Diagnosis Diagnosis Name Provider Source May 31, 2024 12:04 PM PRIMARY Sensorineural hearing loss, bilateral SENIOR,GEE Ochoa [place] [facility] [place] [facility] Plan of Treatment: Future Appointments [...] - PSYCHIATRY [facility] [place] [facility] Jun 13, 2024 10:00 AM AMBULATORY - MEDICINE [facility] [place] [facility] Jun 19, 2024 11:00 AM AMBULATORY - NONE [facility] [place] [facility] Jun 21, 2024 09:00 AM AMBULATORY - MEDICINE [facility] [place] [facility] Jun 21, 2024 09:15 AM AMBULATORY - MEDICINE [facility] [place] [facility] Jun 21, 2024 09:30 AM AMBULATORY - MEDICINE [facility] [place] [facility] Jun 26, 2024 08:00 AM AMBULATORY - MEDICINE [facility] [place] [facility] Jul 05, 2024 09:00 AM AMBULATORY - REHAB MEDICIN E [facility] [place] [facility] Jul 30, 2024 09:30 AM AMBULATORY - PSYCHIATRY [facility] [place] [facility] Aug 05, 2024 09:45 AM AMBULATORY - MEDICINE [facility] [place] [facility] Sep 06, 2024 11:00 AM AMBULATORY - MEDICINE [facility] [place] [facility] Sep 26, 2024 12:30 PM [facility] Oct 08, 2024 09:30 AM AMBULATORY - PSYCHIATRY [facility] [place] [facility] Oct 21, 2024 09:30 AM [facility] Active, Pending, and Scheduled [...] 15, 2024 08:08 AM Consult Order [facility] Cons 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 The data comes from the [place] facility where the Encounter took place. Date/Time Smoking Status/Tobac co Use Comment Facility Dec 13, 2022 03:00 PM VA-TOBACCO DOESNT USE WI 30 MIN WAKEUP [place] [facility] [place] [facility] Dec 13, 2022 03:00 PM VA-TOBACCO USE 30 YEARS OR MORE [facility] [place] [facility] Dec 13, 2022 03:00 PM VA-TOBACCO USE ADVICE [facility] [place] [facility] Dec 13, 2022 03:00 PM VA-TOBACCO USE GREIGE MENDER NO [facility] [place] [facility] Dec 13, 2022 03:00 PM VA-TOBACCO USE MED NO [facility] [place] [facility] Dec 13, 2022 03:00 PM VA-TOBACCO USER EVERY DAY [facility] [place] [facility] Nov 17, 2021 10:00 AM VA-TOBACCO USE 30 YEARS OR MORE [facility] [place] [facility] Nov 17, 2021 10:00 AM VA-TOBACCO USE ADVICE [facility] [place] [facility] Nov 17, 2021 10:00 AM VA-TOBACCO USE GREIGE MENDER NO [facility] Nov 17, 2021 10:00 AM VA-TOBACCO USE MED NO [facility] Nov 17, 2021 10:00 AM VA-TOBACCO USE WI 30 MIN OF WAKEUP [facility] Nov 17, 2021 10:00 AM VA-TOBACCO USER EVERY DAY [facility] Oct 14, 2013 12:55 PM V1-PT NOT INTERESTED IN QUIT TOBACCO USE [place] [facility] [place] [facility] May 07, 2013 05:04 PM CURRENT SMOKER trying to stop [facility] May 07, 2013 05:04 PM V1-PT DECLINES REF TO TOBACCO CESS PRGM [facility] May 07, 2013 05:04 PM V1-PT DECLINES TOBACCO CESSATION MEDS [facility] BIBIANAN [facility] May 07, 2013 05:04 PM V1-PT READY TO QUIT TOBACCO USE [facility] Dec 03, 2012 08:23 AM V1-PT DECLINES REF TO TOBACCO CESS PRGM [facility] Dec 03, 2012 08:23 AM V1-PT DECLINES TOBACCO CESSATION MEDS [facility] Dec 03, 2012 08:23 AM V1-PT THINKING ABOUT QUIT TOBACCO USE [facility] B[facility]RN [facility] Jun 05, 2012 08:45 AM CURRENT SMOKER 1/2ppd [facility] Jun 05, 2012 08:45 AM V1-PT DECLINES REF TO TOBACCO CESS PRGM [place] [facility] Jun 05, 2012 08:45 AM V1-PT THINKING ABOUT QUIT TOBACCO USE [facility] Jun 05, 2012 08:45 AM V1-TOBACCO CESS MEDS NOT PRESCRIBED Vet wants to talk to his provider-He is nervous about taking meds to quit- but he is interested [facility] Nov 25, 2011 09:14 AM V1-PT DECLINES REF TO TOBACCO CESS [facility] [place] [facility] Nov 25, 2011 09:14 AM V1-PT DECLINES TOBACCO CESSATION MEDS [facility] [place] [facility] Nov 25, 2011 09:14 AM V1-PT THINKING ABOUT QUIT TOBACCO USE [facility] [place] [facility] May 06, 2011 01:02 PM CURRENT SMOKER [facility] [place] [facility] May 06, 2011 01:02 PM V1-PT DECLINES TOBACCO CESSATION MEDS [facility] [place] [facility] May 06, 2011 01:02 PM V1-PT NOT INTERESTED IN QUIT TOBACCO USE [facility] [place] [facility] Sep 24, 2010 08:51 AM V1-PT DECLINES TOBACCO CESSATION MEDS [facility] [place] [facility] Sep 24, 2010 08:51 AM V1-PT THINKING ABOUT QUIT TOBACCO USE [facility] [place] [facility] Mar 22, 2010 07:58 AM CURRENT SMOKER 1/2 ppd [facility] [place] [facility] Feb 25, 2009 12:05 PM QUIT TOBACCO USE IN PAST YEAR [facility] [place] [facility] Aug 26, 2008 09:28 AM CURRENT SMOKER 1/2 ppd [facility] [place] [facility] Aug 26, 2008 09:28 AM V1-PT DECLINES REF TO TOBACCO CESS PRGM [facility] [place] [facility] Aug 26, 2008 09:28 AM V1-PT READY TO QUIT TOBACCO USE [facility] [place] [facility] Dec 19, 2007 10:08 AM V1-PT DECLINES REF TO TOBACCO CESS PRGM [facility] [place] [facility] Dec 19, 2007 10:08 AM V1-PT DECLINES TOBACCO CESSATION MEDS [facility] [place] [facility] Dec 19, 2007 10:08 AM V1-PT THINKING ABOUT QUIT TOBACCO USE [facility] [place] [facility] Sep 11, 2007 11:10 AM CURRENT SMOKER [facility] [place] [facility] Sep 11, 2007 11:10 AM V1-PT DECLINES REF TO TOBACCO CESS PRGM [facility] [place] [facility] Sep 11, 2007 11:10 AM V1-PT DECLINES TOBACCO CESSATION MEDS [facility] [place] [facility] Sep 11, 2007 11:10 AM V1-PT THINKING ABOUT QUIT [facility]BACCO [facility] Feb 13, 2007 01:46 PM V1-PT DECLINES REF TO TOBACCO CESS PRGM [facility] Feb 13, 2007 01:46 PM V1-PT DECLINES TOBACCO CESSATION MEDS [facility] Feb 13, 2007 01:46 PM V1-PT THINKING ABOUT QUIT TOBACCO USE [facility] Oct 02, 2006 08:28 AM QUIT TOBACCO USE IN PAST YEAR 3 months ago [facility] Aug 19, 2005 08:33 AM QUIT TOBACCO USE IN PAST YEAR nonsmoker [facility] Sep 21, 2004 09:54 AM CURRENT SMOKER [facility] Sep 07, 2004 08:07 AM CURRENT SMOKER [facility] Sep 15, 2003 11:21 AM CURRENT SMOKER smokes one pk day [facility] Jul 23, 2003 01:57 PM CURRENT SMOKER [facility] Advance Directives: All historical and current [...] Source Apr 10, 2023 ADVANCE DIRECTIVE LINCOL[facility]IE [facility] Apr 19, 2007 ADVANCE DIRECTIVE [facility] Encounter Notes: All associated encounter notes This section contains the clinical notes associated to the Encounter. Date/Time Encounter Note(s) Provider Source May 31, 2024 09:37 AM AUDIOLOGY E & M NOTE: LOCAL TITLE: AUDIOLOGY CLINIC STANDARD TITLE: AUDIOLOGY E & M NOTE DATE OF NOTE: MAY 31, 2024@09:37 ENTRY DATE: MAY 31, 2024@09:37:34 AUTHOR: GEE QUIROZ COSIGNER: URGENCY: STATUS: COMPLETED AUDIOLOGY CLINIC Has ADDENDA Dx CODE: H90.3-Sensorineural Hearing Loss, Bilateral APPOINTMENT TYPE: Hearing Re-Evaluation and Hearing Aid Selection BACKGROUND/HISTORY: was seen today for a hearing re-evaluation and hearing aid selection appointment, unaccompanied. He was fit on 04/30/21 with NATE WORTHY EDGE AI BTE 13s and on 07/14/17 NATE WHEELER I2400 BTE 13s and reports a decline in benefit from these devices. He presents with the right 2020 aid and a left 2016 aid. He is [facility] aids [facility] due to the age of the current devices. His last hearing evaluation was on 04/02/2021 and he believes his hearing has declined somewhat since then. He denies tinnitus and vertigo. Medical history includes: Active problems - Computerized Problem List is the source for the followin. Arteriosclerotic heart disease 2. HERMILO - Generalized anxiety disorder 3. Male urinary stress incontinence 4. Chronic pain 5. Diabetes mellitus type 2 6. Long-term current use of anticoagulant 7. Communication authorization 8. Splenic infarction 9. Abnormal imaging 10. Aortic valve stenosis 11. Aneurysm of ascending aorta 12. Osteopenia 13. Sleep apnea 14. Admits alcohol use 15. Insomnia 16. Chronic obstructive lung disease 17. Peripheral vascular disease 18. Jc's esophagus 19. Disorder of lumbar disc (SNOMED CT 830257905) 20. Depression (SNOMED CT 32349604) 21. Dry Eye Syndromes * 22. 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 Localised, primary osteoarthritis 24. Prostate, Malign Neoplasm 25. Cataract, Cortical (Senile) 26. 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 Mixed hyperlipidaemia 28. Benign essential hypertension 29. POLYPS, COLON/LG BOWEL (BENIGN MAEGAN 30. Tobacco use (SNOMED CT 944814964) ASSESSMENT: Results of today's testing are as follows: Otoscopy was WNL bilaterally. Normal tympanograms obtained bilaterally. Pure tone audiometric testing under headphones revealed mild sloping to profound sensorineural hearing loss from 250-8000 Hz bilaterally. SRT WORD RECOGNITION (Recorded [place] CNC 1/2 Word List) Right 35dBHL 68% @ 85dBHL/55dBm Left 30dBHL 68% @ 85dBHL/55dBm No significant changes were found when compared to the 2020 audiological evaluation. HEARING AID CHECK: Ashlyn presents with the right 2020 aid and a left 2016 aid. The earmolds were on the incorrect hearing aids. Switched the earmolds back to the correct hearing aids. Tubing, tone hooks, and microphone covers were replaced. A firmware update was performed on the right aid. Both devices were reprogrammed to today's audiogram and changed to NAL-NL2. notes that he was unaware that they hearing aids weren't a pair and he does not believe he has any other devices at home. He will try to locate any other devices. HEARING AID SELECTION: Different hearing aid options were discussed. Ohlman reports difficulties changing batteries and would prefer rechargeable devices. He denies having a pacemaker. is not interested in Bluetooth connectivity. PHONAK AUDEO L90-RL RICs were selected and ordered in [facility]. With Ohlman's verbal consent, earmold impressions were taken bilaterally without incident for canal lock cShells with size 2 M receivers. EDUCATION/COUNSELING: The patient was counseled re: today's hearing test results. He demonstrated satisfactory understanding of the education and plan, and was given the opportunity to ask questions throughout today's visit. PLAN: 1. RTC on 07/05/24 at 9:00AM in clinic B for 60 minute hearing aid fitting appointment. 2. Hearing re-evaluation in 3-5 years, or sooner if change in hearing occurs. Patient Education Education provided on the following topics: Hearing test results Education provided to: P Response to Education: VU Whitaker Patient P Family F Significant Other SO Verbalizes Understanding VU Returns Demonstration RD Performs Independently PI Lacks Comprehension LC Refused Education RE Not Applicable NA /YOLANDA Bhatt, [facility]-A STAFF NUCLEAR PLANT OPERATOR Signed: 05/31/2024 12:05 Receipt Acknowledged By: 05/31/2024 13:41 /reginaldo/ KOKO DARBY [employer]PER[employer]ORY COOK PIE 06/20/2024 ADDENDUM STATUS: COMPLETED Hearing aids received and certified, upcoming appointment scheduled on 07/05/2024. /reginaldo/ ESTEFANIA SMITH Audiology Health Exhibit Preparator Signed: 06/20/2024 09:33 GEE QUIROZ [facility]
--- OUTSIDE RECORDS SUMMARY | 2024-08-16 09:35 | XMS_ITS | Encounter Summary ---
Author Name [facility] [facility] [place] [facility] [place] [facility] [place] Address [address] [place] [address] Care Team Providers Care Sack Filler Name Role Phone TRACY VILLANUEVA Primary Care [...] PHI MEDEX BRONZ E December 19, 2013 [id number] GUSTAVO ARAMBULA SR PATIENT [employer] MEDICARE SUPPLEMEN PHI MEDIC ARE SUPPL EMENT Jul 21, 2007 NONE [id number] Edgar ARAMBULA [place] SUPPLEMEN PHI MEDEX BRONZ E December 19, 2013 [id number] GUSTAVO ARAMBULA SR PATIENT [place] OF [place] ([place] MEDICARE SUPPLEMEN PHI MEDEX BRONZ E December 19, 2013 [id number] Edgar ARAMBULA [place] PAT[place] ([place]) MEDICARE () PART A Oct 19, 2004 PART A [id number] Edgar ARAMBULA [place] PAT[place]IC[place] ([place]) MEDICARE (M) PART B Oct 19, 2004 PART B [id number] [id number] Edgar ARAMBULA [place] PAT[place]IC[place] ([place]) MEDICARE () PART A Oct 19, 2004 PART A [id number] Edgar ARAMBULA [place] PAT[place]) MEDICARE () PART B Oct 19, 2004 PART B [id number] Edgar ARAMBULA [place] PAT[place]) MEDICARE () PART A Oct 19, 2004 PART A [id number] Edgar ARAMBULA [place] PAT[place]) MEDICARE () PART B Oct 19, 2004 PART B [id number] Edgar ARAMBULA [place] PAT[place]) MEDICARE () PART A Oct 19, 2004 PART A [id number] Edgar ARAMBULA [place] PAT[place]IC[place]) MEDICARE () PART B Oct 19, 2004 PART B [id number] FILEMONEEdgar [place] PAT[place]IC[place]) MEDICARE () PART A Oct 19, 2004 PART A [id number] [phone] Edgar ARAMBULA [place] PAT[place]IC[place]) MEDICARE () PART B Oct 19, 2004 PART B [id number] [phone] Edgar ARAMBULAN PATIENT Selected Encounter This section includes the information on record at [facility] for [facility]. Date/Time Encounter Type Encounter Description Reason Provider Source May 31, 2024 01:47 PM FIT SPECTACLES BIFOCAL OPTOMETRY ICD-10-CM Z46.0 Encounter for fit/adjst of spectacles and contact lenses PATIENCE ARTEAGA Richy Encounter Template Text not used by [facility] Assessments - Encounter Diagnoses This section includes the primary and secondary diagnoses documented for the Encounter. Date/Time Primary/Secondary Diagnosis Diagnosis Name Provider Source May 31, 2024 01:47 PM PRIMARY Encounter for fit/adjst of spectacles and contact lenses MARY ALICE LEOS [place] [facility] [place] [facility] Plan of Treatment: Future Appointments (+ 6 months) and Future Tests (+/- 45 days) The Plan of Treatment section includes future care activities for the patient from all [place] treatmentfacilities. This section includes future appointments and [...] 10, 2024 10:00 AM AMBULATORY - MEDICINE [facility] Jun 11, 2024 09:30 AM AMBULATORY - [place]CHIATRY [place] [facility] [place] [facility] Jun 13, 2024 10:00 AM AMBULATORY - MEDICINE [place] [facility] [place] [facility] Jun 19, 2024 11:00 AM AMBULATORY - NONE [place] [facility] [place] [facility] Jun 21, 2024 09:00 AM AM[place]ULATORY - [place]ICINE [place] [facility] [place] [facility] Jun 21, 2024 09:15 AM AM[place]ORY - [place]IC[place] [facility] [place] [facility] Jun 21, 2024 09:30 AM AM[place]ATORY - [place]IC[place] [facility] [place] [facility] Jun 26, 2024 08:00 AM AM[place]ORY [place]IC[place] [facility] [place] [facility] Jul 05, 2024 09:00 AM AMBULATORY - REHAB MEDICIN [place] [facility] [place] [facility] Jul 30, 2024 09:30 AM AMBUL[place]ORY [place] [facility] [place] [facility] Aug 05, 2024 09:45 AM AMBULATORY - [place]ICINE [place] [facility] [place] [facility] Sep 06, 2024 11:00 AM AM[place]ORY - [place]IC[place] [facility] [place] [facility] Sep 26, 2024 12:30 PM AMBULATORY - MEDICINE [facility] Oct 08, 2024 09:30 AM AMB[place]ORY [place] [facility] [place] [facility] Oct 21, 2024 09:30 AM AMBULATORY - MEDICINE [facility] Active, Pending, and Scheduled Orders This section includes a listing of several types of active, pending, and scheduled orders, including clinic medications orders, diagnostic test orders, procedure orders and consult orders; where the start date of the order is 45 days before the date of the Encounter or 45 days after the date of theEncounter. The data comes from all [place] treatment facilities. Test Date/Time Test Type Test Details Facility Name May 15, 2024 08:08 AM Consult Order [facility] Cons [facility] Social History: Smoking Status (Most current) and [...] took place. Date/Time Current Smoking Status Comment [facility] it December 25, 2023 09:05 AM [facility]-TO[facility]ACCO [facility] USED [place] [facility] Tobacco Use History This section includes a history of the smoking, or tobacco-related health factors, that were collected on or before the date of the Encounter. The data comes from the [place] facility where the Encounter took place. 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 [facility] [place] [facility] Dec 13, 2022 03:00 PM VA-TOBACCO USE MED NO [facility] [place] [facility] Dec 13, 2022 03:00 PM VA-TOBACCO USER EVERY DAY [facility] [place] [facility] Nov 17, 2021 10:00 AM VA-TOBACCO USE 30 YEARS OR MORE [facility] [place] [facility] Nov 17, 2021 10:00 AM VA-TOBACCO USE ADVICE [facility] [place] [facility] Nov 17, 2021 10:00 AM 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 [facility] Nov 17, 2021 10:00 AM VA-TOBACCO USE MED NO [facility] Nov 17, 2021 10:00 AM VA-TOBACCO USE WI 30 MIN [facility] Nov 17, 2021 10:00 AM VA-TOBACCO USER EVERY DAY [facility] Oct 14, 2013 12:55 PM V1-PT NOT INTERESTED IN QUIT TOBACCO USE [facility] May 07, 2013 05:04 PM CURRENT SMOKER trying to stop [facility] May 07, 2013 05:04 PM V1-PT DECLINES REF TO TOBACCO CESS PRGM [facility] May 07, 2013 05:04 PM V1-PT DECLINES TOBACCO CESSATION MEDS [facility] May 07, 2013 05:04 PM V1-PT READY TO QUIT [facility]BACCO [facility] Dec 03, 2012 08:23 AM V1-PT DECLINES REF TO TOBACCO CESS PRGM [facility] Dec 03, 2012 08:23 AM V1-PT DECLINES TOBACCO CESSATION MEDS [facility] Dec 03, 2012 08:23 AM V1-PT THINKING ABOUT QUIT TOBACCO USE [facility] [facility] Jun 05, 2012 08:45 AM CURRENT SMOKER 1/2ppd [facility] Jun 05, 2012 08:45 AM V1-PT DECLINES REF TO TOBACCO CESS PRGM [facility] Jun 05, 2012 08:45 AM V1-PT THINKING ABOUT QUIT TOBACCO USE [facility] Jun 05, 2012 08:45 AM V1-TOBACCO CESS MEDS NOT PRESCRIBED Vet wants to talk to his provider-He is nervous about taking meds to quit- but he is interested in quitting [facility] Nov 25, 2011 09:14 AM V1-PT DECLINES REF TO TOBACCO CESS PRGM [facility] [place] [facility] Nov 25, 2011 09:14 AM V1-PT DECLINES TOBACCO CESSATION MEDS [facility] [place] [facility] Nov 25, 2011 09:14 AM V1-PT THINKING ABOUT QUIT TOBACCO USE [facility] [place] [facility] May 06, 2011 01:02 PM CURRENT SMOKER [facility] [place] [facility] May 06, 2011 01:02 PM V1-PT DECLINES TOBACCO CESSATION MEDS [facility] [place] [facility] May 06, 2011 01:02 PM V1-PT NOT INTERESTED IN QUIT TOBACCO USE [facility] [place] [facility] Sep 24, 2010 08:51 AM V1-PT DECLINES TOBACCO CESSATION MEDS [facility] [place] [facility] Sep 24, 2010 08:51 AM V1-PT THINKING ABOUT QUIT TOBACCO USE [facility] [place] [facility] Mar 22, 2010 07:58 AM CURRENT SMOKER 1/2 ppd [facility] [place] [facility] Feb 25, 2009 12:05 PM QUIT TOBACCO USE IN PAST YEAR [facility] [place] [facility] Aug 26, 2008 09:28 AM CURRENT SMOKER 1/2 ppd [facility] [place] [facility] Aug 26, 2008 09:28 AM V1-PT DECLINES REF TO TOBACCO CESS PRGM [place] [facility] [place] [facility] Aug 26, 2008 09:28 AM V1-PT READY TO QUIT TOBACCO USE [facility] [place] [facility] Dec 19, 2007 10:08 AM V1-PT DECLINES REF TO TOBACCO CESS PRGM [facility] [place] [facility] Dec 19, 2007 10:08 AM V1-PT DECLINES TOBACCO CESSATION MEDS [facility] [place] [facility] Dec 19, 2007 10:08 AM V1-PT THINKING ABOUT QUIT TOBACCO USE [facility] [place] [facility] Sep 11, 2007 11:10 AM CURRENT SMOKER [facility] [place] [facility] Sep 11, 2007 11:10 AM V1-PT DECLINES REF TO TOBACCO CESS PRGM [facility] [place] [facility] Sep 11, 2007 11:10 AM V1-PT DECLINES TOBACCO CESSATION MEDS [facility] Sep 11, 2007 11:10 AM V1-PT THINKING ABOUT QUIT [facility]ACCO [facility] Feb 13, 2007 01:46 PM V1-PT DECLINES REF TO TOBACCO CESS PRGM [facility] Feb 13, 2007 01:46 PM V1-PT DECLINES TOBACCO CESSATION MEDS [facility] Feb 13, 2007 01:46 PM V1-PT THINKING ABOUT QUIT TOBACCO USE [facility] Oct 02, 2006 08:28 AM QUIT TOBACCO USE IN PAST YEAR 3 months ago [facility] Aug 19, 2005 08:33 AM QUIT TOBACCO USE IN PAST YEAR nonsmoker [facility] Sep 21, 2004 09:54 AM CURRENT SMOKER [facility] Sep 07, 2004 08:07 AM CURRENT SMOKER [facility] Sep 15, 2003 11:21 AM CURRENT SMOKER smokes one pk day [facility] Jul 23, 2003 01:57 PM CURRENT SMOKER [facility] Advance Directives: All historical and current Section [...] Apr 10, 2023 ADVANCE DIRECTIVE [facility] [place] [facility] Apr 19, 2007 ADVANCE DIRECTIVE [facility] Encounter Notes: All associated encounter notes This section contains the clinical notes associated to the Encounter. Date/Time Encounter Note(s) Provider Source May 31, 2024 01:47 PM OPTOMETRY NOTE: LOCAL TITLE: OPTOMETRY NOTE STANDARD TITLE: OPTOMETRY NOTE DATE OF NOTE: MAY 31, 2024@13:47 ENTRY DATE: MAY 31, 2024@13:47:24 AUTHOR: GEBO,GEE EXP COSIGNER: URGENCY: STATUS: COMPLETED OPTOMETRY NOTE Has ADDENDA The quote provided below is for informational purposes only. Please verify prior to the creation of a purchase order. GUSTAVO ARAMBULA SR 1990 RX INFORMATION OD +1.75 -0.75 X85 Add:+2.75 Pzm:0.00 Dir: Prz2:0.00 Dir2: OS +1.75 -1.25 X95 Add:+2.75 Pzm:0.00 Dir: Prz2:0.00 Dir2: FITTING INFORMATION FPD:62.5 NPD:57.0 [place]:R: L: SEG HT:R:17 L:17 Tint:None Shade:None [place] Billable Items FRAME: FX10 GUNMETAL [id number] Right Lens: POLY BIFOCAL FT28 1.586 POLY Left Lens: POLY BIFOCAL FT28 1.586 POLY CLIN items [employer] - Open [employer] Frame 0002 - Bifocal - Glass Plastic Poly The quote provided below is for informational purposes only. Please verify prior to the creation of a purchase order. GUSTAVO ARAMBULA SR 1990 RX INFORMATION OD +1.75 -0.75 X85 Add:+2.75 Pzm:0.00 Dir: Prz2:0.00 Dir2: OS +1.75 -1.25 X95 Add:+2.75 Pzm:0.00 Dir: Prz2:0.00 Dir2: FITTING INFORMATION FPD:62.5 NPD:57.0 [place]:R: L: SEG HT:R:17 L:17 Tint:HAZEL Shade:3 [place] Billable Items FRAME: FX10 GUNMETAL [id number] Right Lens: PLASTIC BIFOCAL FT28 1.498 PLASTIC CR39 Left Lens: PLASTIC BIFOCAL FT28 1.498 PLASTIC CR39 UV400 SOLID TINT CLIN items [employer] - [employer] Frame 0002 - Bifocal - Glass Plastic Poly /es/ GEE WOOD SURGICAL ASSISTANT Signed: 05/31/2024 13:47 Receipt Acknowledged By: 05/31/2024 14:19 /reginaldo/ Mary Alice Leos LPN Licensed Practical Nurse 05/31/2024 ADDENDUM STATUS: 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 OPT HT entered consult(s) as requested for provider signature. /reginaldo/ Mary Alice Leos LPN Licensed Practical Nurse Signed: 05/31/2024 14:22 GEE WOOD [facility]
--- OUTSIDE RECORDS SUMMARY | 2024-08-16 09:35 | XMS_ITS | Encounter Summary ---
Author Name [facility] [place] [facility] [place] Address [address] [place] [address] Care Team Providers Care Pin Cleaner Name Role Phone TRACY VILLANUEVA Primary [...] PHI MEDEX BRONZ E December 19, 2013 [id number] [phone] GUSTAVO GUZMAN SR PATIENT [employer] MEDICARE SUPPLEMEN PHI MEDIC ARE SUPPL EMENT Jul 21, 2007 NONE [id number] [phone] Edgar GUZMAN [place]IENT [place]PP[place] PHI MEDEX BRONZ E December 19, 2013 [id number] [phone] GUSTAVO GUZMAN SR PATIENT [place] MEDICARE SUPPLEMEN PHI MEDEX BRONZ E December 19, 2013 [id number] Edgar GUZMANN PATIENT MEDICARE (WNR) MEDICARE () PART A Oct 19, 2004 PART A [id number] [phone] Edgar GUZMAN [place] PATIENT MEDICARE ([place]) MEDICARE () PART B Oct 19, 2004 PART B [id number] Edgar GUZMAN [place] PAT[place] MEDICARE ([place]) MEDICARE () PART A Oct 19, 2004 PART A [id number] Edgar GUZMAN [place] PAT[place] MEDICARE ([place]) MEDICARE () PART B Oct 19, 2004 PART B [id number] Edgar GUZMAN [place] PAT[place]IC[place] ([place]) MEDICARE () PART A Oct 19, 2004 PART A [id number] Edgar GUZMAN [place] PAT[place] MEDICARE ([place]) MEDICARE () PART B Oct 19, 2004 PART B [id number] Edgar GUZMAN [place] PAT[place] MEDICARE ([place]) MEDICARE () PART A Oct 19, 2004 PART A [id number] Edgar GUZMAN [place] PAT[place] MEDICARE ([place]) MEDICARE () PART B Oct 19, 2004 PART B [id number] [phone] Edgar GUZMAN [place] PAT[place] MEDICARE ([place]) MEDICARE () PART A Oct 19, 2004 PART A [id number] [phone] Edgar GUZMANN PATIENT MEDICARE (WNR) MEDICARE () PART B Oct 19, 2004 PART B [id number] Edgar GUZMANN PATIENT Selected Encounter This section includes the information on record at [place] for the Encounter. Date/Time Encounter Type Encounter Description Reason Provider Source May 20, 2024 02:46 PM Outpatient Encounter PRIMARY CARE/MEDICINE AMA DOZIER Encounter Template Text not used by [place] Plan of Treatment: Future Appointments (+ 6 months) and Future Tests (+/- 45 days) The Plan of Treatment section includes future care activities for the patient from all [place] [facility] This section includes future appointments and future orders which are active, pending or scheduled. Future Appointments This section includes appointments that were scheduled to occur 6 months from the date of the Encounter, up to a maximum of 20 appointments. The data comes from all [place] treatment facilities. Appointment Date/Time Appointment Type Appointme [...] 13, 2024 10:00 AM AMBULATORY - MEDICINE [place] [facility] [facility] Jun 19, 2024 11:00 AM AMBULATORY - NONE [place] [facility] [place] [facility] Jun 21, 2024 09:00 AM AMBULATORY - MEDICINE [place] [facility] [place] [facility] Jun 21, 2024 09:15 AM AMBULATORY - MEDICINE [place] [facility] [place] [facility] Jun 21, 2024 09:30 AM AMBULATORY - MEDICINE [place] [facility] [place] [facility] Jun 26, 2024 08:00 AM AMBULATORY - MEDICINE [place] [facility] [facility] Jul 05, 2024 09:00 AM AMBULATORY - REHAB MEDICIN E [place] [facility] [place] [facility] Jul 30, 2024 09:30 AM AMBULATORY - PSYCHIATRY [place] [facility] [place] [facility] Aug 05, 2024 09:45 AM AMBULATORY - MEDICINE [place] [facility] [facility] Sep 06, 2024 11:00 AM AMBULATORY - MEDICINE [place] [facility] [facility] Sep 26, 2024 12:30 PM [facility]ATORY [facility] Oct 08, 2024 09:30 AM AMBULATORY - PSYCHIATRY [place] [facility] [place] [facility] Oct 21, 2024 09:30 AM AMBULATORY - MEDICINE [facility] Active, Pending, and Scheduled Orders This section includes a listing of several types of active, pending, and scheduled orders, including clinic medications orders, diagnostic test orders, procedure orders and consult orders; where the start date of the order is 45 days before the date of the Encounter or 45 days after the date of theEncounter. The data comes from all [place] treatment facilities. Test Date/Time Test Type Test Details Facility Name May 15, 2024 08:08 AM Consult Order COMMUNITY CARE-PULMONARY Cons Information Support Project Manager's Choice [facility] Lab Results: +/- 30 days of the encounter This section includes the Chemistry and Hematology Lab Results on record with [place] for the patient. Radiology Reports and Pathology Reports are provided separately, in subsequent sections. Lab Results This section contains the Chemistry/Hematology Results that were resulted 30 days before or 30 daysafter the date of the Encounter. Date/Time Source Result Type Result - Unit Interpretation Reference Range Comment Apr 25, 2024 07:51 AM [facility] HEMOGLOBIN A1C PANEL Specimen Type: BLOOD Comment: [...] Feb 13, 2024 02:36 PM Reporting Lab: [address] [id number] Performing Lab: [address] [address] HEMOGLOBIN A1C 6.8 H 4.0-5.6 Apr 25, 2024 07:51 AM [facility] MICROALBUMIN CREATININE RATIO PANEL Spe cimen Type: URINE No comment entered. Ordering Provider: TRACY VILLANUEVA Report Released Date/Time: Feb 13, 2024 02:36 PM Reporting Lab: [address] [address] Performing Lab: [address] [address] MICROALBUMIN/C REATININE RATIO 16.0 mg/g 0-29.9 MICROALBUMIN,Q UANTITATIVE 2.3 mg/dL RR UNAVAIL CREATININE URINE 143.92 mg/dL Apr 25, 2024 07:51 AM [facility] BASIC METABOLIC PANEL (non-fasting) Spe cimen Type: SERUM No comment entered. Ordering Provider: TRACY VILLANUEVA Report Released Date/Time: Feb 13, 2024 02:36 PM Reporting Lab: [place] [facility] [facility] [address] [facility] [address] Performing Lab: [place] [facility] [address] [address] UREA NITROGEN 15 mg/dL 7-25 GLUCOSE 173 mg/dL H 65-100 SODIUM 133 mmol/L L 135-145 POTASSIUM 4.2 mmol/L 3.5-5.0 CHLORIDE 100 mmol/L 100-110 CO2 22 meq/L 20-30 CREATININE, Serum 0.74 mg/dL 0.50-1.40 eGFR(CKD-EPI 2020) 89 mL/min >60 Social History: Smoking Status (Most current) and Tobacco Use (All prior to encounter date) This section includes the most current, and the historical, smoking and tobacco- related health factors from the [place] facility where the Encounter took place. Current Smoking Status This section includes the most current smoking, or tobacco-related health factor, from the [place] facility where the Encounter took place. Date/Time Current Smoking Status Comment Facil ity December 25, 2023 09:05 AM VA-TOBACCO NEVER USED [facility] Tobacco Use History This section includes a history of the smoking, or tobacco-related health factors, that were collected on or before the date of the Encounter. The data comes from the [place] facility where the Encounter took place. Date/Time Smoking Status/Tobac co Use Comment Facility Dec 13, 2022 03:00 PM VA-TOBACCO DOESNT USE WI 30 MIN WAKEUP [place] [facility] [facility] Dec 13, 2022 03:00 PM VA-TOBACCO USE 30 YEARS OR MORE [place] [facility] [facility] Dec 13, 2022 03:00 PM VA-TOBACCO USE ADVICE [place] [facility] [facility] Dec 13, 2022 03:00 PM VA-TOBACCO USE LATEX DIPPER NO [place] [facility] [place] [facility] Dec 13, 2022 03:00 PM VA-TOBACCO USE MED NO [place] [facility] [place] [facility] Dec 13, 2022 03:00 PM VA-TOBACCO USER EVERY DAY [place] [facility] Nov 17, 2021 10:00 AM VA-TOBACCO USE 30 YEARS OR MORE [place] [place] [facility] Nov 17, 2021 10:00 AM VA-TOBACCO USE ADVICE [place] [facility] Nov 17, 2021 10:00 AM VA-TOBACCO USE LATEX DIPPER NO [place] [facility] Nov 17, 2021 10:00 AM VA-TOBACCO USE MED NO [place] [facility] Nov 17, 2021 10:00 AM VA-TOBACCO USE [place] 30 MIN OF WAKEUP [place] [place] [facility] Nov 17, 2021 10:00 AM VA-TOBACCO USER EVERY DAY [place] [facility] Oct 14, 2013 12:55 PM V1-PT NOT INTERESTED IN QUIT TOBACCO USE [place] [facility] [facility] May 07, 2013 05:04 PM CURRENT SMOKER trying to stop [place] [facility] May 07, 2013 05:04 PM V1-PT DECLINES REF TO TOBACCO CESS PRGM [place] [facility] May 07, 2013 05:04 PM V1-PT DECLINES TOBACCO CESSATION MEDS [place] [facility] [facility] May 07, 2013 05:04 PM V1-PT READY TO QUIT TOBACCO USE [place] [facility] Dec 03, 2012 08:23 AM V1-PT DECLINES REF TO TOBACCO CESS PRGM [place] [facility] [place] [facility] Dec 03, 2012 08:23 AM V1-PT DECLINES TOBACCO CESSATION MEDS [place] [facility] [place] [facility] Dec 03, 2012 08:23 AM V1-PT THINKING ABOUT QUIT TOBACCO USE [place] [facility] [facility] Jun 05, 2012 08:45 AM CURRENT SMOKER 1/2ppd [place] [facility] [place] [facility] Jun 05, 2012 08:45 AM V1-PT DECLINES REF TO TOBACCO CESS PRGM [place] [facility] [place] [facility] Jun 05, 2012 08:45 AM V1-PT THINKING ABOUT QUIT TOBACCO USE [place] [facility] [facility] Jun 05, 2012 08:45 AM V1-TOBACCO CESS MEDS NOT PRESCRIBED Vet wants to talk to his provider-He is nervous about taking meds to quit- but he is interested in quitting [facility] [place] [facility] Nov 25, 2011 09:14 AM V1-PT DECLINES REF TO TOBACCO CESS PRGM [facility] Nov 25, 2011 09:14 AM V1-PT DECLINES TOBACCO CESSATION MEDS [facility] Nov 25, 2011 09:14 AM V1-PT THINKING ABOUT QUIT TOBACCO USE [facility] [place] [facility] May 06, 2011 01:02 PM CURRENT SMOKER [facility] May 06, 2011 01:02 PM V1-PT DECLINES TOBACCO CESSATION MEDS [facility] May 06, 2011 01:02 PM V1-PT NOT INTERESTED IN QUIT TOBACCO USE [facility] Sep 24, 2010 08:51 AM V1-PT DECLINES TOBACCO CESSATION MEDS [facility] Sep 24, 2010 08:51 AM V1-PT THINKING ABOUT QUIT TOBACCO USE [facility] [place] [facility] Mar 22, 2010 07:58 AM CURRENT SMOKER 1/2 ppd [facility] Feb 25, 2009 12:05 PM QUIT TOBACCO USE IN PAST YEAR [facility] Aug 26, 2008 09:28 AM CURRENT SMOKER 1/2 ppd [facility] Aug 26, 2008 09:28 AM V1-PT DECLINES REF TO TOBACCO CESS PRGM [facility] [place] [place] [facility] Aug 26, 2008 09:28 AM V1-PT READY TO QUIT TOBACCO USE [facility] [place] [place] [facility] Dec 19, 2007 10:08 AM V1-PT DECLINES REF TO TOBACCO CESS PRGM [facility] Dec 19, 2007 10:08 AM V1-PT DECLINES TOBACCO CESSATION MEDS [facility] Dec 19, 2007 10:08 AM V1-PT THINKING ABOUT QUIT TOBACCO USE [facility] Sep 11, 2007 11:10 AM CURRENT SMOKER [facility] Sep 11, 2007 11:10 AM V1-PT DECLINES REF TO TOBACCO CESS PRGM [facility]RAT[facility]TRN [facility] Sep 11, 2007 11:10 AM V1-PT DECLINES TOBACCO CESSATION MEDS [facility]AT[facility]TRN [facility] Sep 11, 2007 11:10 AM V1-PT THINKING ABOUT QUIT TOBACCO USE [facility] Feb 13, 2007 01:46 PM V1-PT DECLINES REF TO TOBACCO CESS PRGM [facility]TRN [facility] Feb 13, 2007 01:46 PM V1-PT DECLINES TOBACCO CESSATION MEDS [facility] Feb 13, 2007 01:46 PM V1-PT THINKING ABOUT QUIT TOBACCO USE [facility] Oct 02, 2006 08:28 AM QUIT TOBACCO USE IN PAST YEAR 3 months ago [facility] Aug 19, 2005 08:33 AM QUIT TOBACCO USE IN PAST YEAR nonsmoker [facility] Sep 21, 2004 09:54 AM CURRENT SMOKER [facility] Sep 07, 2004 08:07 AM CURRENT SMOKER [facility] Sep 15, 2003 11:21 AM CURRENT SMOKER smokes one pk day [facility] Jul 23, 2003 01:57 PM CURRENT SMOKER [facility] Advance Directives: All historical and current Section Date Range: From patient's date of to the date document was created. This section includes ALL of a patient's completed or amended [place] Advance and Rescinded Directives. The entries below indicate that a directive exists for the patient, but an actual copy is not included with this document. The data comes from all [place] facilities. Date Advance Directives Provider Source Apr 10, 2023 ADVANCE DIRECTIVE ESSIE TSARK [facility] Apr 19, 2007 ADVANCE DIRECTIVE VICTORIA JOHNSON [facility] Encounter Notes: All associated encounter notes This section contains the clinical notes associated to the Encounter. Date/Time Encounter Note(s) Provider Source May 20, 2024 02:46 PM ADDENDUM: LOCAL TITLE: Addendum STANDARD TITLE: ADDENDUM DATE OF NOTE: MAY 20, 2024@14:46:29 ENTRY DATE: MAY 20, 2024@14:46:30 AUTHOR: CRISTIANE DOZIER COSIGNER: URGENCY: STATUS: COMPLETED Adding dietitian to secure message. Supplement is on HOLD be advise. /reginaldo/ MARCUS DOZIER LPN LPN Signed: 05/20/2024 14:49 Receipt Acknowledged By: 05/21/2024 07:59 /reginaldo/ JESSE ARAGON STAFF DIETITIAN === --- Original Document --- 05/20/24 PRIMARY CARE SECURE MESSAGING: ------Original Message ------ Sent: 05/17/2024 07:31 PM ET From: GUSTAVO GUZMAN To: Edgar VILLANUEVA_PRIMARY CARE_SPOPC Subject: General:Ensure Prescription Good morning, I, Gustavo Guzman Jr., am sending this correspondence for my father, Gustavo Locoyuripriya Sr, Last four: 1989. I am checking up on a prescription for Ensure (chocolate). He met with a production sanitizer at which time he was told a prescription would be forthcoming. The appointment was on 05/01/2024. I checked [facility] to see if it was en route, but do not see it as even listed, as of this message. Just curious on the status. Thank you, Gustavo Guzman Jr. ) /reginaldo/ MARCUS DOZIER LPN LPN Signed: 05/20/2024 14:46 CRISTIANE DOZIER [facility] [place] [facility] May 20, 2024 02:46 PM PRIMARY CARE SECURE MESSAGING: LOCAL TITLE: PRIMARY CARE SECURE MESSAGING STANDARD TITLE: PRIMARY CARE SECURE MESSAGING DATE OF NOTE: MAY 20, 2024@14:46 ENTRY DATE: MAY 20, 2024@14:46:16 AUTHOR: CRISTIANE DOZIER COSIGNER: URGENCY: STATUS: COMPLETED PRIMARY CARE SECURE MESSAGING Has ADDENDA ------Original Message ------ Sent: 05/17/2024 07:31 PM ET From: GUSTAVO GUZMAN To: Edgar VILLANUEVA_PRIMARY CARE_SPOPC Subject: General:Ensure Prescription Good morning, I, Gustavo Guzman Jr., am sending this correspondence for my father, Gustavo Guzman Sr, Last four: 1989. I am checking up on a prescription for Ensure (chocolate). He met with a production sanitizer at which time he was told a prescription would be forthcoming. The appointment was on 05/01/2024. I checked [employer] to see if it was en route, but do not see it as even listed, as of this message. Just curious on the status. Thank you, Gustavo Guzman Jr. ) /reginaldo/ MARCUS DOZIER LPN LPN Signed: 05/20/2024 14:46 05/20/2024 ADDENDUM STATUS: COMPLETED Adding dietitian to secure message. Supplement is on HOLD be advise. /reginaldo/ MARCUS DOZIER LPN LPN Signed: 05/20/2024 14:49 Receipt Acknowledged By: * AWAITING SIGNATURE * JESSE ARAGON MARIANGE SUSU [facility]
--- OUTSIDE RECORDS SUMMARY | 2024-08-16 09:36 | XMS_ITS | Encounter Summary ---
Author Name [facility] Address [address] [place] [address] Care Team Providers Care Silk Screen Printer Name Role Phone TRACY VILLANUEVA Primary Care [...] PHI MEDEX BRONZ E December 19, 2013 [id number] [phone] GUSTAVO ARAMBULA SR PATIENT [employer] MEDICARE SUPPLEMEN PHI MEDIC ARE SUPPL EMENT Jul 21, 2007 NONE [id number] Edgar ARAMBULA [place] SUPPLEMEN PHI MEDEX BRONZ E December 19, 2013 [id number] GUSTAVO ARAMBULA SR PATIENT [place] MEDICARE SUPPLEMEN PHI MEDEX BRONZ E December 19, 2013 [id number] Edgar ARAMBULA [place] PATIENT MEDICARE (WNR) MEDICARE () PART A Oct 19, 2004 PART A [id number] Edgar ARAMBULA [place] PAT[place] MEDICARE ([place]NR) MEDICARE (M) PART B Oct 19, 2004 PART B [id number] [phone] Edgar ARAMBULA [place] PATIENT MEDICARE ([place]NR) MEDICARE (M) PART A Oct 19, 2004 PART A [id number] Edgar ARAMBULA [place] PAT[place] MEDICARE ([place]) MEDICARE (M) PART B Oct 19, 2004 PART B [id number] Edgar ARAMBULA [place] PAT[place] MEDICARE ([place]) MEDICARE () PART A Oct 19, 2004 PART A [id number] Edgar ARAMBULA [place] PAT[place] MEDICARE ([place]) MEDICARE () PART B Oct 19, 2004 PART B [id number] [phone] Edgar ARAMBULA [place] PATIENT MEDICARE (WNR) MEDICARE () PART A Oct 19, 2004 PART A [id number] [phone] Edgar ARAMBULA [place] PATIENT MEDICARE ([place]NR) MEDICARE () PART B Oct 19, 2004 PART B [id number] Edgar ARAMBULA [place] PAT[place] MEDICARE ([place]) MEDICARE () PART A Oct 19, 2004 PART A [id number] [phone] Edgar ARAMBULAN PATIENT MEDICARE (WNR) MEDICARE () PART B Oct 19, 2004 PART B [id number] Edgar ARAMBULAN PATIENT Selected Encounter This section includes the information on record at [place] for the Encounter. Date/Time Encounter Type Encounter Description Reason Provider Source Jun 10, 2024 10:00 AM OFFICE O/P NEW LOW 30 MIN PODIATRY ICD-10-CM L60.0 Ingrowing nail ASHA MAYERS Encounter Template Text not used by [place] Assessments - Encounter Diagnoses This section includes the primary and secondary diagnoses documented for the Encounter. Date/Time Primary/Secondary Diagnosis Diagnosis Name Provider Source Jun 10, 2024 10:34 AM PRIMARY Ingrowing nail ASHA MAYERS [facility] Jun 10, 2024 10:34 AM SECONDARY Pain in left toe(s) ASHA MAYERS [facility] Jun 10, 2024 10:34 AM SECONDARY Pain in right toe(s) ASHA MAYERS Jun 10, 2024 10:34 AM SECONDARY Type 2 diabetes mellitus without complications ASHA MAYERS [facility] Plan of Treatment: Future Appointments (+ 6 months) and Future Tests (+/- 45 days) The Plan of Treatment section includes future care activities for the [facility] [place] [facility] This section includes future appointments and future orders which are active, pending or scheduled. Future Appointments This section includes appointments that were scheduled to occur 6 months from the date of the Encounter, up to a maximum of 20 appointments. The data comes from all [place] treatment facilities. Appointment Date/Time Appointment Type Appointme nt Facility Name Jun 11, 2024 09:30 AM AMBULATORY - [...] [facility] Jun 21, 2024 09:15 AM [facility] [place] [facility] Jun 21, 2024 09:30 AM AMBULATORY [place] [facility]IC[facility] [place] [facility] Jun 26, 2024 08:00 AM AMBULATORY - [facility]IC[facility] [place] [facility] Jul 05, 2024 09:00 AM AMBULATORY - REHAB MEDICIN E [facility] [place] [facility] Jul 30, 2024 09:30 AM AMBULATORY - PSYCHIATRY [facility] [place] [facility] Aug 05, 2024 09:45 AM AMBULATORY - MEDICINE [facility] [place] [facility] Sep 06, 2024 11:00 AM AMBULATORY - MEDICINE [facility] [place] [facility] Sep 26, 2024 12:30 PM AMBULATORY - MEDICINE [facility] Oct 08, 2024 09:30 AM [facility] Oct 21, 2024 09:30 AM AM[facility]ULATORY - MEDICINE [facility] Active, Pending, and [...] 08:08 AM Consult Order COMMUNITY CARE-PULMONARY Cons Vegetable Packer's Choice [facility] Social History: Smoking Status (Most current) and [...] Facil ity December 25, 2023 09:00 AM AL-TOBACCO USER EVERY DAY [facility] Tobacco Use History This section includes a history of the smoking, or tobacco-related health factors, that were collected on or before the date of the Encounter. The data comes from the [place] facility where the Encounter took place. 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 Date/Time Encounter Note(s) Provider Source Jun 10, 2024 10:35 AM PODIATRY NOTE: LOCAL TITLE: PODIATRY PAVE FOOT EXAM STANDARD TITLE: PODIATRY NOTE DATE OF NOTE: JUN 10, 2024@10:35 ENTRY DATE: JUN 10, 2024@10:35:22 AUTHOR: ASHA MAYERS EXP COSIGNER: URGENCY: STATUS: COMPLETED PAVE FOOT EXAM A foot risk level was completed. The following risk level was identified for this patient: +POD RISK SCORE+ * --LEVEL 0 - (NORMAL RISK)* Normal sensation and circulation No foot deformity or foot infection No ulceration, nor history of ulceration, osteomyelitis, or amputation No Charcot joint disease with foot deformity No chronic kidney disease, or less than CKD 4 FOOT EDUCATION: 1. Explained the importance of daily foot checks. Explained that loss of sensation leads to callouses. Callouses break down, which result in ulcers that may lead to gangrene and amputation. 2. Stressed the importance of daily foot hygiene. Warm (not hot) bathing of the feet, complete drying and thorough inspection for changes in the condition of the skin constitute daily foot care. Demonstrated how to do a thorough foot check. 3. Emphasized the use of clean, non-restrictive socks/stockings and well fitting shoes. 4. Stressed the importance of immediate follow-up of any foot injuries or ulcers. Explained that he/she should be non-weight bearing whenever there are lesions on the foot, to prevent cellular damage. Level of Understanding: Good /reginaldo/ ASHA MAYERS DPM SUBSTANCE ABUSE THERAPIST Signed: 06/10/2024 10:35 ASHA MAYERS [facility] Jun 10, 2024 07:29 AM PODIATRY CONSULT: LOCAL TITLE: CONSULT REPORT/PODIATRY STANDARD TITLE: PODIATRY CONSULT DATE OF NOTE: JUN 10, 2024@07:29 ENTRY DATE: JUN 10, 2024@07:30:02 AUTHOR: ASHA MAYERS EXP COSIGNER: URGENCY: STATUS: COMPLETED NAME: GUSTAVO ARAMBULA SR DATE: JUN 10, 2024 : Oct PCP: TRACY VILLANUEVA LAST SEEN: INITIAL CONSULT VISIT TODAY NOTE: HAS RECEIVED BOTH COVID VACCINE DOSES + 3 BOOSTERS AT [facility] HPI: Pt. is a 83 yo alert WDWN CAUC MALE who presents for initial podiatric examination with Dr. 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 Patient has TYPE II DM & is at risk of injury with self or other non-professional care. Patient has been referred by: TRACY VILLANUEVA NP Location of symptoms are: nails 1-2-3-4-5 bilateral Onset of symptoms has been several weeks due to this being a recurrent condition that has been exacerbating over the past few weeks. Duration of symptoms is dailyAS NAILS GROW LONGER with periods of exacerbation and remission. Description of symptoms is of an aching nature AND CATCHING ON HIS SOCKS. Contributing factors are: shoes and increased activity. Previous treatment: [facility] PMH: Active problems - Computerized Problem List is [...] 19. Disorder of lumbar disc (SNOMED CT 605788276) 20. Depression (SNOMED CT 53219783) 21. Dry Eye Syndromes * 22. 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 Localised, primary osteoarthritis 24. Prostate, Malign Neoplasm 25. Cataract, Cortical (Senile) 26. 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 Mixed hyperlipidaemia 28. Benign essential hypertension 29. POLYPS, COLON/LG BOWEL (BENIGN MAEGAN 30. 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 Family History: Non-contributory Social History: N/A Current medications: Active Outpatient Medications (including Supplies): *NOTE: DENIES ANY RECENT CHANGES IN MEDS UPON QUESTIONING TODAY-SEE RECONCILIATION PERFOMED THIS DATE BELOW TOBACCO USE = 8 CIGS/DAY Active Outpatient Medications Status = 1) ACETAMINOPHEN 500MG TAB TAKE TWO TABLETS [...] ACTIVE MOUTH ONCE DAILY FOR CHOLESTEROL 6) CARBOXYMETHYLCELLULOSE NA 0.5% OPH SOLN INSTILL 1 ACTIVE DROP INTO EACH EYE FOUR TIMES A DAY FOR DRY EYE 7) CITALOPRAM HYDROBROMIDE 40MG TAB TAKE ONE-HALF TABLET ACTIVE BY MOUTH ONCE DAILY FOR DEPRESSION AND ANXIETY 8) DEPEND UNDERWEAR,MAXIMUM,MEN SM/MED USE 1 BRIEF ACTIVE DIRECTED TWICE DAILY FOR INCONTINENCE 9) HYDROCORTISONE 1% OINT APPLY THIN LAYER TOPICALLY ACTIVE TWICE DAILY NEEDED FOR ATOPIC DERMATITIS 10) MELATONIN 5MG CAP/TAB TAKE ONE CAPSULE/TABLET BY ACTIVE MOUTH AT BEDTIME FOR INSOMNIA 11) METFORMIN HCL 750MG 24HR SA TAB TAKE ONE TABLET BY ACTIVE MOUTH TWICE DAILY FOR TYPE 2 DIABETES MELLITUS 12) NUTRITION SUPL ENSURE PLUS/CONNIE LIQUID DRINK 1 CAN BY HOLD MOUTH TWICE DAILY 13) PANTOPRAZOLE NA 40MG EC TAB TAKE ONE TABLET BY MOUTH ACTIVE EVERY MORNING 30 MINUTES BEFORE BREAKFAST 14) QUETIAPINE FUMARATE 25MG TAB TAKE ONE TABLET BY MOUTH ACTIVE AT BEDTIME 15) SENNOSIDES 8.6MG TAB TAKE ONE TABLET BY MOUTH TWICE ACTIVE DAILY NEEDED FOR CONSTIPATION 16) TIOTROPIUM 2.5MCG/ACTUAT 60D ORAL INHL INHALE 2 PUFFS ACTIVE BY MOUTH ONCE DAILY 17) TRIAMCINOLONE ACETONIDE 0.1% CREAM APPLY A THIN LAYER HOLD TOPICALLY EVERY 5 DAYS Allergies:GEMFIBROZIL, LISINOPRIL Previous Surgery/Hospitalization: N/A TO THE CC HEIGHT:130 lb [58.97 kg] (05/14/2024 11:39) WEIGHT:60.3 in [153.2 cm] (05/14/2024 11:39) REVIEW OF SYSTEMS: DEFERRED BEING NON-CONTRIBUTORY TO THE CC & I HAVE REVIEWED THE PCP NOTES & PMH WELL. O: DERMATOLOGICAL: Exam reveals skin color, TEMP & text to be WNL. There is absence of hair noted. Nails are WNL BUT ELONGATED AND INCURVATED. The affected nails are 1-2-3-4-5 bilat. There are no superficial painful hyperkeratotic lesions noted at this time. There are no rashes, ulcers, indurations or nodules noted. VASCULAR: Exam reveals DP & PT pulses to be +2 equal & symmetrical bilateral. CFT is < 3 sec x 10. There are no superficial varices noted and there is no edema noted. MUSCULOSKELETAL: Exam reveals muscle strength and tone to be equal & symmetrical bilaterally & WNL for an individual of this age and present physical-medical condition. There is pain free ROM at all joints distal to and including the ankle. NEUROLOGICAL: Exam reveals S/D, vibratory, light touch & proprioception sensations to be equal & symmetrical bilaterally & WNL for an individual of this age and present physical-medical status. Protective sensation utilizing a [place]-Lola lOg monofilament is 10/10 bilateral. *NOTE: *YEARLY COMPLETE PAVE EXAM PERFORMED TODAY - SEE BELOW. BIOMECHANICAL: Exam is deferred at this time as BEING non-contributory to the cc . A: Clinical Impression is painful onychocryptic nails in the presence of DM AND PAIN. P: Treatment consists of TRIMMING-reduction of all nails via manual & electric means with excision of the offending nail borders and thinning of the nail plates to the point of imminent bleeding. All care rendered without complications & the patient is progressing well after podiatric care this date and will be scheduled for periodic podiatric care in an attempt to prevent future complications due to the underlyig medical conditions. Treatment by a non-professional could be extremely hazardous to the patient's wellbeing due to the underlying medical conditions. RTC: 24 Weeks: 10/21 @ 9:30AM *DISCUSSED NEW PROTOCOLS AND CALLED ESTEFANIA TODAY FOR RESCHEDULING I DISCUSSED THE FINDINGS & PLAN WITH PATIENT (UNCHANGED SINCE PREVIOUS VISIT) & PATIENT AGREES AND UNDERSTANDS PLAN-NOT IN NEED OF MIRROR Medication Reconciliation: PERFORMED TODAY - SEE BELOW. Outpatient: Has the patient been taking medications as documented in the EMLR? YES: The patient has been taking medications as documented in the EMLR. Essential Medication List for Review used to complete this medication reconciliation. INCLUDED IN THIS LIST: Alphabetical list of active outpatient prescriptions dispensed from this [place] (local) and dispensed from another [place] or [facility] facility (remote) as well as inpatient [...] whether with a VA or non-VA provider. PAVE Foot Check: A complete foot check was completed at this encounter. VISUAL INSPECTION: Includes inspection for skin breaks, deformity, erythema, trauma, pallor on elevation, dependent rubor, nail deformities, extensive callus and pitting edema. Visual exam results: Normal Comment: ONYCHOCRYPTIC NAILS BILAT PEDAL PULSES: Includes palpation of dorsalis and posterior tibial pulses and signs/symptoms of vascular compromise like pain, pallor, parasthesia or paralysis. Present (even if diminished) Comment: +2 BILATERAL SENSORY CHECK: Includes 10 gram Monofilament ([place]-Lola) test of sensation. Intact (Greater than or equal to 80% of sites checked) Abnormal (Less than 80% of sites checked): Intact Comment: VIBRATORY & MONOFILAMENTA ARE WNL BILAT LOW-RISK: LOW RISK INFORMATION PROVIDED: 1. Advised patient not to walk barefoot. 2. Explained the importance of daily foot checks for changes. 3. Stressed the importance of daily foot hygiene, including bathing and complete drying. The patient verbalized understanding and was offered a detailed handout on diabetic foot care. /reginaldo/ ASHA MAYERS DPM SUBSTANCE ABUSE THERAPIST Signed: 06/10/2024 10:35 ASHA MAYERS
--- OUTSIDE RECORDS SUMMARY | 2024-08-16 09:36 | XMS_ITS | Encounter Summary ---
Author Name [facility] [place] [facility] [place] Address [address] [place] [address] Care Team Providers Care Chief Recordist Name Role Phone TRACY VILLANUEVA Primary Care [...] PHI MEDEX BRONZ E December 19, 2013 [id number] GUSTAVO ARAMBULA SR PATIENT [employer] CASUALTY MEDICARE SUPPLEMEN PHI MEDIC ARE SUPPL EMENT Jul 21, 2007 NONE [id number] Edgar ARAMBULA PATIENT [place] SUPPLEMEN PHI MEDEX BRONZ E December 19, 2013 [id number] [phone] GUSTAVO ARAMBULA SR PATIENT [place] MEDICARE SUPPLEMEN PHI MEDEX BRONZ E December 19, 2013 [id number] FILEMONEEdgar [place] PATIENT MEDICARE (WNR) MEDICARE (M) PART A Oct 19, 2004 PART A [id number] Egdar ARAMBULA [place] PAT[place] MEDICARE (WNR) MEDICARE (M) PART B Oct 19, 2004 PART B [id number] Edgar ARAMBULA [place] PATIENT MEDICARE (WNR) MEDICARE (M) PART A Oct 19, 2004 PART A [id number] [phone] Edgar ARAMBULA [place] PATIENT MEDICARE ([place]NR) MEDICARE (M) PART B Oct 19, 2004 PART B [id number] Edgar ARAMBULA [place] PAT[place] MEDICARE ([place]) MEDICARE (M) PART A Oct 19, 2004 PART A [id number] Edgar ARAMBULA [place] PATIENT MEDICARE (WNR) MEDICARE () PART B Oct 19, 2004 PART B [id number] Edgar ARAMBULA [place] PATIENT MEDICARE (WNR) MEDICARE () PART A Oct 19, 2004 PART A [id number] [phone] Edgar ARAMBULA [place] PATIENT MEDICARE ([place]NR) MEDICARE () PART B Oct 19, 2004 PART B [id number] [phone] FILEMONEEdgar [place] PATIENT MEDICARE (WNR) MEDICARE () PART A Oct 19, 2004 PART A [id number] Edgar ARAMBULA [place] PATIENT MEDICARE ([place]NR) MEDICARE () PART B Oct 19, 2004 PART B [id number] [phone] Edgar ARAMBULAN PATIENT Selected Encounter This section includes the information on record at [place] for the Encounter. Date/Time Encounter Type Encounter Description Reason Provider Source Jun 11, 2024 09:30 AM OFFICE O/P EST MOD 30 [facility] - IND ICD-10-CM F33.9 Major depressive disorder, recurrent, unspecified JOSEY COLINDRES Encounter Template Text not used by [place] Assessments - Encounter Diagnoses This section includes the primary and secondary diagnoses documented for the Encounter. Date/Time Primary/Secondary Diagnosis Diagnosis Name Provider Source Jun 11, 2024 04:38 PM PRIMARY Major depressive disorder, recurrent, unspecified BERNADINEIZAIAHKONSTANTIN Lockhart [place] [facility] [place] [facility] Jun 11, 2024 04:38 PM SECONDARY Tobacco use IZAIAH COLINDRESKONSTANTIN Jason Lockhart [place] [facility] [place] [facility] Plan of Treatment: Future Appointments (+ 6 months) and Future Tests (+/- 45 days) The Plan of Treatment section includes future care activities for the patient from all [place] treatmentfacilities. This section includes future appointments and future orders which are active, pending or scheduled. Future Appointments This section includes appointments that were scheduled to occur 6 months from the date of the Encounter, up to a maximum of 20 appointments. The data comes from all [place] treatment facilities. Appointment Date/Time Appointment Type Appointme nt Facility Name Jun 13, 2024 10:00 AM AMBULATORY - MEDICINE [place] [facility] [place] [facility] Jun 19, 2024 11:00 AM AMBULATORY - NONE [facility] [place] [facility] Jun 21, 2024 09:00 AM AMBULATORY - MEDICINE [place] [facility] [place] [facility] Jun 21, 2024 09:15 AM AMBULATORY - MEDICINE [place] [facility] [place] [facility] Jun 21, 2024 09:30 AM AMBULATORY - MEDICINE [place] [facility] [place] [facility] Jun 26, 2024 08:00 AM AMBULATORY - MEDICINE [place] [facility] [place] [facility] Jul 05, 2024 09:00 AM AMBULATORY - REHAB MEDICIN E [facility] [place] [facility] Jul 30, 2024 09:30 AM AMBULATORY - PSYCHIATRY [facility] [place] [facility] Aug 05, 2024 09:45 AM AMBULATORY - MEDICINE [place] [facility] [place] [facility] Sep 06, 2024 11:00 AM AMBULATORY - MEDICINE [place] [facility] [place] [facility] Sep 26, 2024 12:30 PM AMBULATORY - MEDICINE [facility] Oct 08, 2024 09:30 AM AMBULATORY - PSYCHIATRY [place] [facility] [place] [facility] Oct 21, 2024 09:30 AM [facility] Active, Pending, and Scheduled Orders This section [...] 08:08 AM Consult Order COMMUNITY CARE-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 Date/Time Current Smoking Status Comment [facility] it December 25, 2023 09:05 AM VA-TOBACCO NEVER USED [place] [facility] Tobacco Use History This section includes a history of the smoking, or tobacco-related health factors, that were collected on or before the date of the Encounter. The data comes from the [place] facility where the Encounter took place. 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 [facility] [place] [facility] Dec 13, 2022 03:00 PM VA-TOBACCO USE MED NO [facility] [place] [facility] Dec 13, 2022 03:00 PM VA-TOBACCO USER EVERY DAY [facility] [place] [facility] Nov 17, 2021 10:00 AM VA-TOBACCO USE 30 YEARS OR MORE [facility] [place] [facility] Nov 17, 2021 10:00 AM VA-TOBACCO USE ADVICE [place] [facility] [place] [facility] Nov 17, 2021 10:00 AM VA-TOBACCO USE AVION[employer] SAFETY INSPECTOR [facility] Nov 17, 2021 10:00 AM VA-TOBACCO USE MED NO [facility] Nov 17, 2021 10:00 AM VA-TOBACCO USE WI 30 MIN OF WAKEUP [facility] Nov 17, 2021 10:00 AM VA-TOBACCO USER EVERY DAY [facility] Oct 14, 2013 12:55 PM V1-PT NOT INTERESTED IN QUIT TOBACCO USE [facility] May 07, 2013 05:04 PM CURRENT SMOKER trying to stop [facility] May 07, 2013 05:04 PM V1-PT DECLINES REF TO TOBACCO CESS PRGM [facility] May 07, 2013 05:04 PM V1-PT DECLINES TOBACCO CESSATION MEDS [facility] May 07, 2013 05:04 PM V1-PT READY TO QUIT TOBACCO USE [facility] Dec 03, 2012 08:23 AM V1-PT DECLINES REF TO TOBACCO CESS PRGM [facility] Dec 03, 2012 08:23 AM V1-PT DECLINES TOBACCO CESSATION MEDS [facility] Dec 03, 2012 08:23 AM V1-PT THINKING ABOUT QUIT TOBACCO USE [facility] Jun 05, 2012 08:45 AM CURRENT SMOKER 1/2ppd [facility] Jun 05, 2012 08:45 AM V1-PT DECLINES REF TO TOBACCO CESS PRGM [facility] Jun 05, 2012 08:45 AM V1-PT THINKING ABOUT QUIT TOBACCO USE [facility] Jun 05, 2012 08:45 AM V1-TOBACCO CESS MEDS NOT PRESCRIBED Vet wants to talk to his provider-He is nervous about taking meds to quit- but he is interested in quitting [facility] Nov 25, 2011 09:14 AM V1-PT DECLINES REF TO TOBACCO CESS PRGM [place] [facility] [place] [facility] Nov 25, 2011 09:14 AM V1-PT DECLINES TOBACCO CESSATION MEDS [facility] [place] [facility] Nov 25, 2011 09:14 AM V1-PT THINKING ABOUT QUIT TOBACCO USE [facility] [place] [facility] May 06, 2011 01:02 PM CURRENT SMOKER [facility] [place] [facility] May 06, 2011 01:02 PM V1-PT DECLINES TOBACCO CESSATION MEDS [facility] [place] [facility] May 06, 2011 01:02 PM V1-PT NOT INTERESTED IN QUIT TOBACCO USE [facility] [place] [facility] Sep 24, 2010 08:51 AM V1-PT DECLINES TOBACCO CESSATION MEDS [facility] [place] [facility] Sep 24, 2010 08:51 AM V1-PT THINKING ABOUT QUIT TOBACCO USE [facility] [place] [facility] Mar 22, 2010 07:58 AM CURRENT SMOKER 1/2 ppd [facility] [place] [facility] Feb 25, 2009 12:05 PM QUIT TOBACCO USE IN PAST YEAR [facility] [place] [facility] Aug 26, 2008 09:28 AM CURRENT SMOKER 1/2 ppd [facility] [place] [facility] Aug 26, 2008 09:28 AM V1-PT DECLINES REF TO TOBACCO CESS PRGM [facility] [place] [facility] Aug 26, 2008 09:28 AM V1-PT READY TO QUIT TOBACCO USE [facility] [place] [facility] Dec 19, 2007 10:08 AM V1-PT DECLINES REF TO TOBACCO CESS PRGM [facility] [place] [facility] Dec 19, 2007 10:08 AM V1-PT DECLINES TOBACCO CESSATION MEDS [facility] [place] [facility] Dec 19, 2007 10:08 AM V1-PT THINKING ABOUT QUIT TOBACCO USE [facility] [place] [facility] Sep 11, 2007 11:10 AM CURRENT SMOKER [facility] [place] [facility] Sep 11, 2007 11:10 AM V1-PT DECLINES REF TO TOBACCO CESS PRGM [facility] [place] [facility] Sep 11, 2007 11:10 AM V1-PT DECLINES TOBACCO CESSATION MEDS [facility] [place] [facility] Sep 11, 2007 11:10 AM V1-PT THINKING ABOUT QUIT TOBACCO USE [facility] Feb 13, 2007 01:46 PM V1-PT DECLINES REF TO TOBACCO CESS PRGM [facility] Feb 13, 2007 01:46 PM V1-PT DECLINES TOBACCO CESSATION MEDS [facility] Feb 13, 2007 01:46 PM V1-PT THINKING ABOUT QUIT TOBACCO USE [facility] Oct 02, 2006 08:28 AM QUIT TOBACCO USE IN PAST YEAR 3 months ago [facility] Aug 19, 2005 08:33 AM QUIT TOBACCO USE IN PAST YEAR nonsmoker [facility] Sep 21, 2004 09:54 AM CURRENT SMOKER [facility] Sep 07, 2004 08:07 AM CURRENT SMOKER [facility] Sep 15, 2003 11:21 AM CURRENT SMOKER smokes one pk day [facility] Jul 23, 2003 01:57 PM CURRENT SMOKER [facility] Advance Directives: All historical and current [...] Source Apr 10, 2023 ADVANCE DIRECTIVE [facility] Apr 19, 2007 ADVANCE DIRECTIVE VICTORIA JOHNSON [facility] Encounter Notes: All associated encounter notes This section contains the clinical notes associated to the Encounter. Date/Time Encounter Note(s) Provider Source Jun 11, 2024 09:33 AM PSYCHIATRY NOTE: LOCAL TITLE: PSYCHIATRY NOTE STANDARD TITLE: PSYCHIATRY NOTE DATE OF NOTE: JUN 11, 2024@09:33 ENTRY DATE: JUN 11, 2024@09:33:43 AUTHOR: LANA COLINDRES COSIGNER: URGENCY: STATUS: COMPLETED PSYCHIATRY FOLLOW UP VISIT GUSTAVO ARAMBULA is a 83yo MARITAL STATUS - WHITE MALE with a history of [employer] FROM December TO Oct INTERVAL HISTORY Seen with son, Gustavo. Doing well, spending days fishing and painting. Has some initial insomnia tossing and turning for about an hour. Goes to bed 9pm and is up until 10pm, has a snack, then goes to sleep. Gets up 5:30am. Gets morning light. No major weight change. No problems on current med regimen. We discussed a behavioral strategy for sleep--staying up until 10pm, not going to bed unless sleepy, and getting out of bed if feeling frustrated. CURRENT MEDICATIONS Active Outpatient Medications (including Supplies): [...] HOURS ACTIVE FOR PREVENTION OF BLOOD CLOTS ATORVASTATIN CALCIUM 40MG TAB TAKE ONE-HALF TABLET BY ACTIVE MOUTH ONCE DAILY FOR CHOLESTEROL CARBOXYMETHYLCELLULOSE NA 0.5% OPH SOLN INSTILL 1 DROP ACTIVE INTO EACH EYE FOUR TIMES A DAY FOR DRY EYE CITALOPRAM HYDROBROMIDE 40MG TAB TAKE ONE-HALF TABLET BY ACTIVE MOUTH ONCE DAILY FOR DEPRESSION AND ANXIETY DEPEND UNDERWEAR,MAXIMUM,MEN SM/MED USE 1 BRIEF ACTIVE DIRECTED TWICE DAILY FOR INCONTINENCE HYDROCORTISONE 1% OINT APPLY THIN LAYER TOPICALLY TWICE ACTIVE DAILY NEEDED FOR ATOPIC DERMATITIS MELATONIN 5MG CAP/TAB TAKE ONE CAPSULE/TABLET BY MOUTH AT ACTIVE BEDTIME FOR INSOMNIA METFORMIN HCL 750MG 24HR SA TAB TAKE ONE TABLET BY MOUTH ACTIVE TWICE DAILY FOR TYPE 2 DIABETES MELLITUS NUTRITION SUPL ENSURE PLUS/CONNIE LIQUID DRINK 1 CAN BY HOLD MOUTH TWICE DAILY PANTOPRAZOLE NA 40MG EC TAB TAKE ONE TABLET BY MOUTH EVERY ACTIVE MORNING 30 MINUTES BEFORE BREAKFAST QUETIAPINE FUMARATE 25MG TAB TAKE ONE TABLET BY MOUTH AT ACTIVE BEDTIME SENNOSIDES 8.6MG TAB TAKE ONE TABLET BY MOUTH TWICE DAILY ACTIVE NEEDED FOR CONSTIPATION TIOTROPIUM 2.5MCG/ACTUAT 60D ORAL INHL INHALE 2 PUFFS BY ACTIVE MOUTH ONCE DAILY TRIAMCINOLONE ACETONIDE 0.1% CREAM APPLY A THIN LAYER HOLD TOPICALLY EVERY 5 DAYS SUPPLEMENTS: ALLERGIES: GEMFIBROZIL, LISINOPRIL MEDICAL HISTORY Active Problem Arteriosclerotic heart disease I25. 05/22/2024 TRACY VILLANUEVA HERMILO - Generalized anxiety disorder 02/14/2024 TRACY VILLANUEVA Male urinary stress incontinence N3 02/13/2024 TRACY VILLANUEVA Chronic pain G89.4 11/06/2023 JOSE NORTON Diabetes mellitus type 2 E11.9 05/14/2024 TRACY VILLANUEVA Long-term current use of anticoagul 02/10/2023 HAY CORONA Communication authorization R69. 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 02/09/2023 YULY AUSTIN JAWRUBEN Abnormal imaging R93.421 02/09/2023 YULY AUSTIN JAWRUBEN Aortic valve stenosis I35.0 09/18/2022 DANIELE CHILDS [...] CT 09/25/2023 TRACY VILLANUEVA Depression (SNOMED CT [id number]) F33 12/10/2021 TRAVIS GOMES Dry Eye Syndromes * (ICD-9-CM 375.1 03/17/2009 NAHED JARQUIN OD Late effect of fracture of skull an 12/03/2008 JOVANY NAYLOR Localised, primary osteoarthritis M 03/12/2024 TRACY VILLANUEVA Prostate, 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., Ons 04/22/2008 JOVANY NAYLOR Cataract, Cortical (Senile) 366.15 05/04/2006 NAHED JARQUIN P OD Open Angle Glaucoma Suspect 365.01 05/04/2006 NAHED JARQUIN P OD Mixed hyperlipidaemia E78.2 12/25/2023 TRACY VILLANUEVA Benign essential hypertension I10. 12/25/2023 TRACY VILLANUEVA POLYPS, COLON/LG BOWEL (BENIGN MAEGAN 10/31/2013 JOVANY NAYLOR Tobacco use (SNOMED CT [id number]) Z 02/20/2024 GUSTAVO MCKEON BMI: 25.2 SUBSTANCE USE: Alcohol: None MJ: None Tobacco: [...] year. restarted Mar 2024. quetiapine--helpful, well tolerated. nicotine patch MENTAL STATUS EXAM: Awake, alert, cooperative, well [...] -cont quetiapine 25mg daily -review smoking cessation - Cont melatonin 5 mg at HS for sleep - [facility] Sleep medicine - Cardiology - Hematology [...] Resources Only: E911 (Emergency Call Relay Center): [phone] National Veterans Crisis Line - ([phone]-TALK) press #1. OFELIA Suicide Coordinator ? [phone], Ext. [phone]; Back-up Ext. [phone] Reiki Practitioner of the Day(AOD), Sabi GILBERT ? [phone], Ext. [phone] Introduction: Visit is being conducted by [place] [facility]. [place] identified with 2 identifiers: [X] Full Name [X] Date of [ ] VA ID Card Emergency Plan: [place] confirmed and/or provided the following information in case of emergency or technology failure. 's present location and address for appointment: Located at home address as in CPRS 's emergency contact name and phone number: Emergency contact as per listed in chart reported that location is private and safe: Yes Informed Consent: [place] informed of the risks and benefits of Telehealth video care. [place] has the right to refuse video services. If refuses video visit, a [id number] visit will be scheduled. verbalized consent for this video visit: Yes provided consent for any other persons present for visit: Yes If yes, who and relationship to patient: Secure visit: Visit was locked for security and privacy:Yes __ _ __ /reginaldo/ LANA COLINDRES PSYCHIATRIST Signed: 06/11/2024 16:38 LANA COLINDRES [facility]
--- OUTSIDE RECORDS SUMMARY | 2024-08-16 09:36 | XMS_ITS | Encounter Summary ---
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 Name Role Phone TRACY VILLANUEVA Primary [...] PHI MEDEX BRONZ E December 19, 2013 [id number] GUSTAVO ARAMBULA SR PATIENT [employer] LIFE [employer] CASUALTY MEDICARE SUPPLEMEN PHI MEDIC ARE SUPPL EMENT Jul 21, 2007 NONE [id number] Edgar ARAMBULA PATIENT [place] SUPPLEMEN PHI MEDEX BRONZ E December 19, 2013 [id number] GUSTAVO ARAMBULA SR PATIENT [place] MEDICARE SUPPLEMEN PHI MEDEX BRONZ E December 19, 2013 [id number] [phone] FILEMONEEdgar [place] PATIENT MEDICARE (WNR) MEDICARE () PART A Oct 19, 2004 PART A [id number] Edgar ARAMBULA [place] PATIENT MEDICARE ([place]NR) MEDICARE () PART B Oct 19, 2004 PART B [id number] Edgar ARAMBULA [place] PATIENT MEDICARE ([place]) MEDICARE () PART A Oct 19, 2004 PART A [id number] Edgar ARAMBULA [place] PATIENT MEDICARE ([place]) MEDICARE () PART B Oct 19, 2004 PART B [id number] Edgar ARAMBULA [place] PATIENT MEDICARE ([place]) MEDICARE () PART A Oct 19, 2004 PART A [id number] [phone] FILEMONEEdgar [place] PATIENT MEDICARE ([place]NR) MEDICARE () PART B Oct 19, 2004 PART B [id number] SEVEdgar VIVAR [place] PATIENT MEDICARE ([place]) MEDICARE () PART A Oct 19, 2004 PART A [id number] Edgar ARAMBULA [place] PATIENT MEDICARE ([place]) MEDICARE () PART B Oct 19, 2004 PART B [id number] FILEMONEEdgar [place] PATIENT MEDICARE ([place]) MEDICARE () PART A Oct 19, 2004 PART A [id number] SEVEdgar VIVAR [place] PATIENT MEDICARE ([place]NR) MEDICARE () PART B Oct 19, 2004 PART B [id number] SEVEdgar VIVAR [place] PATIENT Selected Encounter This section includes the information on record at ID for the Encounter. Date/Time Encounter Type Encounter Description Reason Provider Source Jun 21, 2024 09:30 AM COMPRE OPH EXAM EST PT 1/> OPTOMETRY ICD-10-CM 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, right eye, moderate stage PATIENCE STOVALL IHE Encounter Template Text not used by ID Assessments - Encounter Diagnoses This section includes the primary and secondary diagnoses documented for the Encounter. Date/Time Primary/Secondary Diagnosis Diagnosis Name Provider Source Jun 21, 2024 01:55 PM PRIMARY Capslr glaucoma w/pseudxf lens, right eye, moderate stage OSHINSKIEPATIENCE FAUSTO Hern[facility]dez [facility] Jun 21, 2024 01:55 PM SECONDARY Capslr glaucoma w/pseudxf lens, right eye, mild stage OSHINSKIE,PATIENCE FAUSTO Edgar [facility] Plan of Treatment: Future Appointments (+ 6 months) and Future Tests (+/- 45 days) The Plan of Treatment section includes future care activities for the patient from all [facility] This section includes future appointments and future orders which are active, pending or scheduled. Future Appointments This section includes appointments that were scheduled to occur 6 months from the date of the Encounter, up to a maximum of 20 appointments. The data comes from all ID treatment [facility]. Appointment Date/Time Appointment Type Appointme nt Facility Name Jun 26, 2024 08:00 AM AMBULATORY - [facility]INE [facility] Jul 05, 2024 09:00 AM AMBULATORY - REHAB [facility]IN [facility] Jul 30, 2024 09:30 AM AMBULATORY - [place]IATRY [place] [facility] [place] [facility] Aug 05, 2024 09:45 AM AMBULATORY - MEDICINE [facility] [place] [facility] Sep 06, 2024 11:00 AM AMBULATORY - MEDICINE [facility] [place] [facility] Sep 26, 2024 12:30 PM [facility] Oct 08, 2024 09:30 AM [facility] [place] [facility] Oct 21, 2024 09:30 AM AMBULATORY - MEDICINE [facility] Active, Pending, and Scheduled [...] 08:08 AM Consult Order COMMUNITY CARE-PULMONARY Cons Hospice Superintendent's Dylan [place] Social History: Smoking Status (Most current) and Tobacco Use (All prior to encounter date) This section includes the most current, and the historical, smoking and tobacco- related health factors from the ID facility where the Encounter took place. Current Smoking Status This section includes the most current smoking, or tobacco-related health factor, from the ID facility where the Encounter took place. Date/Time Current Smoking Status Comment Facil ity December 25, 2023 09:05 AM VA-TOBACCO NEVER USED ID [facility] [place] [facility] Tobacco Use History This section includes a history of the smoking, or tobacco-related health factors, that were collected on or before the date of the Encounter. The data comes from the ID facility where the Encounter took place. 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 [facility] [place] [facility] Dec 13, 2022 03:00 PM VA-TOBACCO USE MED NO [facility] [place] [facility] Dec 13, 2022 03:00 PM VA-TOBACCO USER EVERY DAY [facility] [place] [facility] Nov 17, 2021 10:00 AM VA-TOBACCO USE 30 YEARS OR MORE [facility] [place] [facility] Nov 17, 2021 10:00 AM VA-TOBACCO USE ADVICE [facility] [place] [facility] Nov 17, 2021 10:00 AM VA-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 USE 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 [facility] [place] [facility] Nov 17, 2021 10:00 AM VA-TOBACCO USE MED NO [facility] [place] [facility] Nov 17, 2021 10:00 AM VA-TOBACCO USE WI 30 MIN OF WAKEUP [facility] [place] [facility] Nov 17, 2021 10:00 AM VA-TOBACCO USER EVERY DAY [facility] [place] [facility] Oct 14, 2013 12:55 PM V1-PT NOT INTERESTED IN QUIT TOBACCO USE [facility] May 07, 2013 05:04 PM CURRENT SMOKER trying to stop [facility] May 07, 2013 05:04 PM V1-PT DECLINES REF TO TOBACCO CESS PR[facility] May 07, 2013 05:04 PM V1-PT DECLINES TOBACCO CESSATION MEDS [facility] [place] [facility] May 07, 2013 05:04 PM V1-PT READY TO QUIT TOBACCO USE [facility] [place] [facility] Dec 03, 2012 08:23 AM V1-PT DECLINES REF TO TOBACCO CESS PRGM [facility] [place] [facility] Dec 03, 2012 08:23 AM V1-PT DECLINES TOBACCO CESSATION MEDS [facility] [place] [facility] Dec 03, 2012 08:23 AM V1-PT THINKING ABOUT QUIT TOBACCO USE [facility] [facility] Jun 05, 2012 08:45 AM CURRENT SMOKER 1/2ppd [facility] [facility] Jun 05, 2012 08:45 AM V1-PT DECLINES REF TO TOBACCO CESS PRGM [facility] [place] [facility] Jun 05, 2012 08:45 AM V1-PT THINKING ABOUT QUIT TOBACCO USE [facility] [place] [facility] Jun 05, 2012 08:45 AM V1-TOBACCO CESS MEDS NOT PRESCRIBED Vet wants to talk to his provider-He is nervous about taking meds to quit- but he is interested in quitting [facility] [place] [facility] Nov 25, 2011 09:14 AM V1-PT DECLINES REF TO TOBACCO CESS PRGM [facility] [facility] Nov 25, 2011 09:14 AM V1-PT DECLINES TOBACCO CESSATION MEDS [facility] Nov 25, 2011 09:14 AM V1-PT THINKING ABOUT QUIT TOBACCO USE [facility] May 06, 2011 01:02 PM CURRENT SMOKER [facility] [place] [facility] May 06, 2011 01:02 PM V1-PT DECLINES TOBACCO CESSATION MEDS [facility] [place] [facility] May 06, 2011 01:02 PM V1-PT NOT INTERESTED IN QUIT TOBACCO USE [facility] [place] [facility] Sep 24, 2010 08:51 AM V1-PT DECLINES TOBACCO CESSATION MEDS [facility] [place] [facility] Sep 24, 2010 08:51 AM V1-PT THINKING ABOUT QUIT TOBACCO USE [facility] [place] [facility] Mar 22, 2010 07:58 AM CURRENT SMOKER 1/2 ppd [facility] [place] [facility] Feb 25, 2009 12:05 PM QUIT TOBACCO USE IN PAST YEAR [facility] [place] [facility] Aug 26, 2008 09:28 AM CURRENT SMOKER 1/2 ppd [facility] [place] [facility] Aug 26, 2008 09:28 AM V1-PT DECLINES REF TO TOBACCO CESS PRGM [facility] [place] [facility] Aug 26, 2008 09:28 AM V1-PT READY TO QUIT TOBACCO USE [facility] [place] [facility] Dec 19, 2007 10:08 AM V1-PT DECLINES REF TO TOBACCO CESS PRGM [facility] [place] [facility] Dec 19, 2007 10:08 AM V1-PT DECLINES TOBACCO CESSATION MEDS [facility] [place] [facility] Dec 19, 2007 10:08 AM V1-PT THINKING ABOUT QUIT TOBACCO USE [facility] [place] [facility] Sep 11, 2007 11:10 AM CURRENT SMOKER [facility] [place] [facility] Sep 11, 2007 11:10 AM V1-PT DECLINES REF TO TOBACCO CESS PRGM [facility] [place] [facility] Sep 11, 2007 11:10 AM V1-PT DECLINES TOBACCO CESSATION MEDS [facility] [place] [facility] Sep 11, 2007 11:10 AM V1-PT THINKING ABOUT QUIT TOBACCO USE [facility] [place] [facility] Feb 13, 2007 01:46 PM V1-PT DECLINES REF TO TOBACCO CESS PRGM [facility] Feb 13, 2007 01:46 PM V1-PT DECLINES TOBACCO CESSATION MEDS [facility] [place] [facility] Feb 13, 2007 01:46 PM V1-PT THINKING ABOUT QUIT TOBACCO [facility] Oct 02, 2006 08:28 AM QUIT TOBACCO USE IN PAST YEAR 3 months ago [facility] Aug 19, 2005 08:33 AM QUIT TOBACCO USE IN PAST YEAR nonsmoker [facility] Sep 21, 2004 09:54 AM CURRENT SMOKER [facility] Sep 07, 2004 08:07 AM CURRENT SMOKER [facility] Sep 15, 2003 11:21 AM CURRENT SMOKER smokes one pk day [facility] Jul 23, 2003 01:57 PM CURRENT SMOKER [facility] Advance Directives: All historical and current Section Date Range: From patient's date of to the date document was created. This section includes ALL of a patient's completed or amended ID Advance and Rescinded Directives. The entries below indicate that a directive exists for the patient, but an actual copy is not included with this document. The data comes from all ID facilities. Date Advance Directives Provider Source Apr 10, 2023 ADVANCE DIRECTIVE ESSIE STARK [facility] Apr 19, 2007 ADVANCE DIRECTIVE ELIZABETHSEAMUSJason [facility] Encounter Notes: All associated encounter notes This section contains the clinical notes associated to the Encounter. Date/Time Encounter Note(s) Provider Source Jun 21, 2024 09:07 AM OPTOMETRY NOTE: LOCAL TITLE: OPTOMETRY NOTE STANDARD TITLE: OPTOMETRY NOTE DATE OF NOTE: JUN 21, 2024@09:07 ENTRY DATE: JUN 21, 2024@09:07:27 AUTHOR: MARILYNN CORRAL EXP COSIGNER: BARBARA STOVALL URGENCY: STATUS: COMPLETED OPTOMETRY NOTE Has ADDENDA Active problems - Computerized Problem List is [...] 19. Disorder of lumbar disc (SNOMED CT 439805818) 20. Depression (SNOMED CT 53208903) 21. Dry Eye Syndromes * 22. 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 Localised, primary osteoarthritis 24. Prostate, Malign Neoplasm 25. Cataract, Cortical (Senile) 26. 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 Mixed hyperlipidaemia 28. Benign essential hypertension 29. POLYPS, COLON/LG BOWEL (BENIGN MAEGAN 30. Tobacco use (SNOMED CT 470859478) Active Outpatient Medications (including Supplies): Active Outpatient [...] HYDROBROMIDE 40MG TAB TAKE ONE-HALF TABLET ACTIVE (S) BY MOUTH ONCE DAILY FOR DEPRESSION AND [...] THIN LAYER HOLD TOPICALLY EVERY 5 DAYS Allergies: GEMFIBROZIL, LISINOPRIL All medications including those prescribed by outside VA's, community providers, and all OTC meds were reviewed and reconciled with patient to the best of their abilities. This 83 year old MALE is seen today for primary open-angle glaucoma suspect f/u with RNFL OCT and HVF 24-2 BERTHA: 06/03/2024 Chief Complaint: Diabetic 3-4 years Last A1C: 6.8 OHx: 1. 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 Low risk POAG suspect secondary to large asymmetrical cupping OD>OS and asymmetrical IOP 3. Pseudophakia OU 4. Macular hole OD 5. PABLO OU 6. RE Ocular Medications: None (-) Pain: (-) ORO: (-) Diplopia: (-) Flashes: (-) Floaters: (-) Amaurosis Fugax/Tia's: (-) Eye Injury: H.o of blunt trauma with baseball OD 35yrs ago and piece of wood OS with skull reconstruction sx 17yrs ago (-) Eye Surgery: (-) TBI FOHx: (+) Glaucoma: Sister on GLC drops (-) ARMD/Blindness VITALS (most recent, as listed in the electronic record): B/P: 156/74 (05/14/2024 11:39) Pulse: 76 (05/14/2024 11:39) Temperature: 97.7 F [36.5 C] (05/14/2024 11:39) Weight: 135.4 lb [61.42 kg] (06/19/2024 10:58) Height: 60.3 in [153.2 cm] (05/14/2024 11:39) BMI: BMI: 26.2 PERTINENT LABS: HEMOGLOBIN A1C TREND Collection DT Spec HGBA1c 04/25/2024 07:51 BLOOD 6.8 H 04/15/2024 08:39 BLOOD 6.3 H 12/25/2023 09:26 BLOOD 7.7 H 09/01/2023 10:29 BLOOD 6.7 H 12/14/2022 07:54 BLOOD 6.4 H (-) Smoker/Length of Time/PPD: Current Rx with last BCVA: OD: +1.75-0.75 x085 20/200+2 OS: +1.75-1.25 x095 20/20-2 Add:+2.75 DVA ( )sc ( x )cc - phoropter OD: 20/200-2/+1 OS: 20/20 Pupils: PERRL (-)APD EOMs: SAFE OU, (-)Pain/Diplopia CVF (facial, peripheral): FTFC OU All the above performed by student, reviewed by attending Anterior segment: Performed by student, repeated by attending Lids: Dermatochalsis OU Conj: white and quiet OU Cornea: Arcus OU (-)k spindle OU AC: D&Q OU Angles: 4x4 OU Iris: flat and clear (-)NVI/TID OU (+) Pseudoexfoliative materials at pupillary margins OU Lens: PCIOL OU (-)PXF OU Gonioscopy: OD: Widened CBB nasal and inferior quadrants; CBB superior and temporal quadrant OS: PAS superior and temporal quadrant; CBB 360 Tonometry: Performed by student, reviewed by attending [x ] GAT [ ] iCare OD 14 mmHg OS 15 mmHg Time: Last IOP OD: 22 OS: 18 Pachymetry: OD: 559 OS: 597 Dilation not required at this problem focus exam Fundus exam: Dilated: Non dilated:xxxx Performed by student, repeated by attending Vit: Limited undilated view OU C/D: 0.60H/0.60V OD and 0.50H/0.65V OS (-)Drance heme(-)NVD OU Macula: flat and clear (-)CSME OU PPole: Limited undilated view OU A/V: Limited undilated view OU Vessels: Limited undilated view OU Periph: Limited undilated view OU Assessment/Plan: 1. Type II Diabetes ocular status not acessible at this undilated exam. Last A1c 6.8. - Pt ed on today's findings and the possible ocular health and visual complications associated with diabetes as well as importance of attending follow up appts - Encouraged pt to monitor blood sugar and continue taking medications as prescribed by their PCP - Pt ed to call immediately if experiencing any sudden changes in vision - Monitor annually 2. 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; mild stage OD and severe stage OS in patient with positive family history of glaucoma (sister) - Pt has a history of blunt trauma with baseball OD 35yrs ago and piece of wood OS with skull reconstruction sx 17yrs ago - Gonioscopy today revealed angle recession OD and peripheral synechiae OS - IOP: 14/15mmHg - Pachymetry: 559/597 - Pseudoexfoliative materials at pupillary margin s/p cataracts extraction OU - RNFL OCT and HVF 24-2 obtained today: OD unreliable results; OS shows RNFL thinning more in superior temporal than inferior temporal, which alligns with deeper field defects observed in HVF 24-2 in the inferior hemifield. Pt has both hemifield depressed in OS - Ordering Latanoprost 1gtt QHS OU (no contraindications) and instructed pt how to use drops - RTC 6-8wks for IOP check 3. Macular hole OD- status not accessible on undilated exam - BCVA OD stable - Monitor 4. Pseudophakia OU - PCIOLs appear stable today - Pt. ed. on findings - Monitor 5. Hyperopia and presbyopia OU - Pt. ed. on todays findings - BCVA OD reduced to 20/200-2/+1 secondary to macular hole - Monitor Return to Clinic 6-8wks for IOP checked or earlier PRN Patient Education: Diabetes: Patient was educated regarding diabetes and related ocular complications including retinopathy and cataract formation as well as other related systemic complications. The importance of good blood sugar control, blood sugar testing as recommended by their PCP and the importance of timely follow up were all emphasized. Glaucoma: Patient was educated regarding glaucoma/glaucoma suspect [...] the patient's ability to participate in testing. /reginaldo/ Barbara Stovall OD Fee Basis Hearing Therapist Signed: 06/21/2024 13:55 for MARILYNN CORRAL OPTOMETRY STUDENT /chavez Stovall OD Fee Basis Hearing Therapist Cosigned: 06/21/2024 13:55 06/21/2024 ADDENDUM STATUS: COMPLETED I reviewed case with student and agree with assessment and plan /chavez Stovall OD Fee Basis Hearing Therapist Signed: 06/21/2024 13:57 06/21/2024 ADDENDUM STATUS: COMPLETED Glaucoma: Patient was educated regarding glaucoma/glaucoma suspect [...] would prohibit the patient's ability to participate Diabetes: Patient was educated regarding diabetes and related ocular complications including retinopathy and cataract formation as well as other related systemic complications. The importance of good blood sugar control, blood sugar testing as recommended by their PCP and the importance of timely follow up were all emphasized.ate in testing. /reginaldo/ Barbara Stovall OD Fee Basis Hearing Therapist Signed: 06/21/2024 13:58 BARBARA STOVALL ID [facility]
--- OUTSIDE RECORDS SUMMARY | 2024-08-16 09:37 | XMS_ITS | Encounter Summary ---
Author Name [facility] [place] [facility] [place] Address [address] [place] [address] Care Team Providers Care Insurance Producer Name Role Phone TRACY VILLANUEVA Primary Care [...] PHI MEDEX BRONZ E December 19, 2013 [id number] GUSTAVO ARAMBULA SR PATIENT [employer] MEDICARE SUPPLEMEN PHI MEDIC ARE SUPPL EMENT Jul 21, 2007 NONE [id number] Edgar ARAMBULA [place]IENT [place] SUPPLEMEN PHI MEDEX BRONZ E December 19, 2013 [id number] GUSTAVO ARAMBULA SR PATIENT [place] MEDICARE SUPPLEMEN PHI MEDEX BRONZ E December 19, 2013 [id number] [phone] SEVAB[place]Edgar [place] PAT[place]) MEDICARE () PART A Oct 19, 2004 PART A [id number] FILEMONEEdgar [place] PAT[place]) MEDICARE () PART B Oct 19, 2004 PART B [id number] SEVABIEEdgar [place] PAT[place]) MEDICARE () PART A Oct 19, 2004 PART A [id number] SEVIGNEEdgar [place] PAT[place]) MEDICARE () PART B Oct 19, 2004 PART B [id number] SEVABIEEdgar [place] PAT[place]) MEDICARE () PART A Oct 19, 2004 PART A [id number] SEVIGNEEdgar [place] PAT[place]) MEDICARE () PART B Oct 19, 2004 PART B [id number] SEVIGNEEdgar [place] PAT[place]) MEDICARE () PART A Oct 19, 2004 PART A [id number] SEVABIEEdgar [place] PAT[place]) MEDICARE () PART B Oct 19, 2004 PART B [id number] SEVIGNEEdgar [place] PAT[place]) MEDICARE () PART A Oct 19, 2004 PART A [id number] SEVAB[place]Edgar [place]) MEDICARE () PART B Oct 19, 2004 PART B [id number] SEVIGNEEdgar [place] PATIENT Selected Encounter This section includes the information on record at [facility] for the Encounter. Date/Time Encounter Type Encounter Description Reason Provider Source Jun 21, 2024 09:15 AM CMPTR OPHTH IMG OPTIC NERVE OPTOMETRY ICD-10-CM H40.1411 Capslr glaucoma w/pseudxf lens, right eye, mild stage PATIENCE STOVALL [facility] Encounter Template Text not used by [facility] Assessments - Encounter Diagnoses This section includes the primary and secondary diagnoses documented for the Encounter. Date/Time Primary/Secondary Diagnosis Diagnosis Name Provider Source Jun 21, 2024 02:00 PM PRIMARY Capslr glaucoma w/pseudxf lens, right eye, mild stage OSHINSKIE,PATIENCE FAUSTO J [facility] Jun 21, 2024 02:00 PM SECONDARY Capslr glaucoma w/pseudxf lens, left eye, moderate stage OSHINSKIE,PATIENCE FAUSTO J [facility] Plan of Treatment: Future Appointments (+ 6 months) and Future Tests (+/- 45 days) The Plan of Treatment section includes future care [place] the [place] [facility] [place] [facility]. This section includes future appointments and [...] AMBULATORY - [facility]ICINE [place] [facility] Jul 05, 2024 09:00 AM AMBULATORY - REHAB MEDICIN E [place] [facility] Jul 30, 2024 09:30 AM AMBULATORY - PSYCHIATRY [place] [facility] Aug 05, 2024 09:45 AM AMBULATORY - MEDICINE [facility] [place] [facility] Sep 06, 2024 11:00 AM AMBULATORY - MEDICINE [facility] [place] [facility] Sep 26, 2024 12:30 PM [facility] Oct 08, 2024 09:30 AM [facility] [place] [facility] Oct 21, 2024 09:30 AM AMBULATORY - MEDICINE [facility] [...] of theEncounter. The data comes from all [facility]. Test Date/Time Test Type Test Details Facility Name May 15, 2024 08:08 AM Consult Order COMMUNITY CARE-PULMONARY Cons Healthcare Administrative Assistant's Dylan COMFORT Social History: Smoking Status (Most current) and [...] VA-TOBACCO NEVER USED [place] [facility] [facility] Tobacco Use History This [...] 30 MIN WAKEUP [facility] [place] [facility] Dec 13, 2022 03:00 PM VA-TOBACCO USE 30 YEARS OR MORE [facility] [place] [facility] Dec 13, 2022 03:00 PM VA-TOBACCO USE ADVICE [facility] [place] [facility] Dec 13, 2022 03:00 PM VA-TOBACCO USE CALL CENTER REPRESENTATIVE NO [facility] [place] [facility] Dec 13, 2022 03:00 PM VA-TOBACCO USE MED NO [facility] [place] [facility] Dec 13, 2022 03:00 PM VA-TOBACCO USER EVERY DAY [facility] [place] [facility] Nov 17, 2021 10:00 AM VA-TOBACCO USE 30 YEARS OR MORE [facility] [place] [facility] Nov 17, 2021 10:00 AM VA-TOBACCO USE ADVICE [facility] [place] [facility] Nov 17, 2021 10:00 AM VA-TOBACCO USE CALL CENTER REPRESENTATIVE NO [facility] [place] [facility] Nov 17, 2021 10:00 AM VA-TOBACCO USE MED NO [facility] [place] [facility] Nov 17, 2021 10:00 AM VA-TOBACCO USE WI 30 MIN OF WAKEUP [facility] [place] [facility] Nov 17, 2021 10:00 AM VA-TOBACCO USER EVERY DAY [facility] Oct 14, 2013 12:55 PM V1-PT NOT INTERESTED IN QUIT TOBACCO USE [facility] May 07, 2013 05:04 PM CURRENT SMOKER trying to stop [facility] May 07, 2013 05:04 PM V1-PT DECLINES REF TO TOBACCO CESS PRGM [facility] May 07, 2013 05:04 PM V1-PT DECLINES TOBACCO CESSATION MEDS [facility] May 07, 2013 05:04 PM V1-PT READY TO QUIT TOBACCO USE [facility] Dec 03, 2012 08:23 AM V1-PT DECLINES REF TO TOBACCO CESS PRGM [facility] Dec 03, 2012 08:23 AM V1-PT DECLINES TOBACCO CESSATION MEDS [facility] Dec 03, 2012 08:23 AM V1-PT THINKING ABOUT QUIT TOBACCO USE [facility] Jun 05, 2012 08:45 AM CURRENT SMOKER 1/2ppd [facility] Jun 05, 2012 08:45 AM V1-PT DECLINES REF TO TOBACCO CESS PRGM [facility] Jun 05, 2012 08:45 AM V1-PT THINKING ABOUT QUIT TOBACCO USE [facility] Jun 05, 2012 08:45 AM V1-TOBACCO CESS MEDS NOT PRESCRIBED Vet wants to talk to his provider-He is nervous about taking meds to quit- but he is interested in quitting [facility] Nov 25, 2011 09:14 AM V1-PT DECLINES REF TO TOBACCO CESS PRGM [facility] Nov 25, 2011 09:14 AM V1-PT DECLINES TOBACCO CESSATION MEDS [facility] Nov 25, 2011 09:14 AM V1-PT THINKING ABOUT QUIT TOBACCO USE [facility] May 06, 2011 01:02 PM CURRENT SMOKER [facility] [place] [facility] May 06, 2011 01:02 PM V1-PT DECLINES TOBACCO CESSATION MEDS [facility] [place] [facility] May 06, 2011 01:02 PM V1-PT NOT INTERESTED IN QUIT TOBACCO USE [facility] [place] [facility] Sep 24, 2010 08:51 AM V1-PT DECLINES TOBACCO CESSATION MEDS [facility] [place] [facility] Sep 24, 2010 08:51 AM V1-PT THINKING ABOUT QUIT TOBACCO USE [facility] [place] [facility] Mar 22, 2010 07:58 AM CURRENT SMOKER 1/2 ppd [facility] [place] [facility] Feb 25, 2009 12:05 PM QUIT TOBACCO USE IN PAST YEAR [facility] [place] [facility] Aug 26, 2008 09:28 AM CURRENT SMOKER 1/2 ppd [facility] [place] [facility] Aug 26, 2008 09:28 AM V1-PT DECLINES REF TO TOBACCO CESS PRGM [place] [facility] [place] [facility] Aug 26, 2008 09:28 AM V1-PT READY TO QUIT TOBACCO USE [facility] [place] [facility] Dec 19, 2007 10:08 AM V1-PT DECLINES REF TO TOBACCO CESS PRGM [facility] [place] [facility] Dec 19, 2007 10:08 AM V1-PT DECLINES TOBACCO CESSATION MEDS [facility] [place] [facility] Dec 19, 2007 10:08 AM V1-PT THINKING ABOUT QUIT [facility]BACCO [facility] [place] [facility] Sep 11, 2007 11:10 AM CURRENT SMOKER [facility] [place] [facility] Sep 11, 2007 11:10 AM V1-PT DECLINES REF TO TOBACCO CESS PRGM [facility] [place] [facility] Sep 11, 2007 11:10 AM V1-PT DECLINES TOBACCO CESSATION MEDS [facility] [place] [facility] Sep 11, 2007 11:10 AM V1-PT THINKING ABOUT QUIT TOBACCO USE [facility] [place] [facility] Feb 13, 2007 01:46 PM V1-PT DECLINES REF TO TOBACCO CESS PR[facility] [place] [facility] Feb 13, 2007 01:46 PM V1-PT DECLINES TOBACCO CESSATION MEDS [facility] [place] [facility] Feb 13, 2007 01:46 PM V1-PT THINKING ABOUT QUIT TOBACCO USE [facility] Oct 02, 2006 08:28 AM QUIT TOBACCO USE IN PAST YEAR 3 months ago [facility] Aug 19, 2005 08:33 AM QUIT TOBACCO USE IN PAST YEAR nonsmoker [facility] Sep 21, 2004 09:54 AM CURRENT SMOKER [facility] Sep 07, 2004 08:07 AM CURRENT SMOKER [facility] Sep 15, 2003 11:21 AM CURRENT SMOKER smokes one pk day [facility] Jul 23, 2003 01:57 PM CURRENT SMOKER [facility] Advance Directives: All historical and [...] [facility] Apr 19, 2007 ADVANCE DIRECTIVE [facility] Encounter Notes: All associated encounter notes This section contains the clinical notes associated to the Encounter. 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 Average RNFL thickness 77 microns. No thinning noted all quadrants. OS Signal strength: 10 OS: average c/d 0.69, vertical c/d 0.70, disc area 1.90 mm^2. Average RNFL thickness 68 microns. No thinning noted all quadrants. 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 - This is patient's 1st RNFL record - Mild thinning of superior temporal OD and moderate thinning of superior temporal and mild thinning of inferior temporal OS - Pt ed on findings - Ordering Latanoprost 1gtt QHS OU - RTC 6-8wks for IOP check /reginaldo/ Barbara Stovall OD Fee Basis [employer]let Stone Inserter Signed: 06/21/2024 14:00 for MARILYNN CORRAL OPTOMETRY STUDENT /reginaldo/ Barbara Stovall OD Fee Basis [employer]let Stone Inserter Cosigned: 06/21/2024 14:00 06/21/2024 ADDENDUM STATUS: COMPLETED I reviewed the OCT and VF and agree with assessment and plan /reginaldo/ Barbara Stovall OD Fee Basis [employer] Inserter Signed: 06/21/2024 14:00 BARBARA STOVALL [place] [facility]
--- OUTSIDE RECORDS SUMMARY | 2024-08-16 09:37 | XMS_ITS | Encounter Summary ---
Author Name [facility] [place] [facility] [place] [facility] [facility] [place] Address [address] [place] [address] Care Team Providers Care Program Director [employer] Name Role Phone TRACY VILLANUEVA Primary Care [...] PHI MEDEX BRONZ E December 19, 2013 [id number] GUSTAVO ARAMBULA SR PATIENT [employer]UAL[employer] MEDICARE SUPPLEMEN PHI MEDIC ARE SUPPL EMENT Jul 21, 2007 NONE [id number] [phone] Edgar ARAMBULA PATIENT [place] SUPPLE[place] PHI MEDEX BRONZ E December 19, 2013 [id number] GUSTAVO ARAMBULA SR PATIENT [place] ([place] MEDICARE SUPPLEMEN PHI MEDEX BRONZ E December 19, 2013 [id number] Edgar ARAMBULA PATIENT MEDICARE (WNR) MEDICARE () PART A Oct 19, 2004 PART A [id number] [id number] Edgar ARAMBULAN PATIENT MEDICARE (WNR) MEDICARE () PART B Oct 19, 2004 PART B [id number] Edgar ARAMBULA [place] PATIENT [place]IC[place]) MEDICARE () PART A Oct 19, 2004 PART A [id number] Edgar ARAMBULAN PATIENT MEDICARE (WNR) MEDICARE () PART B Oct 19, 2004 PART B [id number] Edgar ARAMBULAN PATIENT MEDICARE (WNR) MEDICARE () PART B Oct 19, 2004 PART B [id number] Edgar ARAMBULA [place] PAT[place]IC[place]) MEDICARE () PART A Oct 19, 2004 PART A [id number] Edgar ARAMBULAN PATIENT MEDICARE (WNR) MEDICARE () PART A Oct 19, 2004 PART A [id number] Edgar ARAMBULA PATIENT MEDICARE (WNR) MEDICARE () PART B Oct 19, 2004 PART B [id number] Edgar ARAMBULAN PATIENT MEDICARE (WNR) MEDICARE () PART A Oct 19, 2004 PART A [id number] Edgar ARAMBULAN PATIENT MEDICARE (WNR) MEDICARE () PART B Oct 19, 2004 PART B [id number] [phone] Edgar ARAMBULAN PATIENT Selected Encounter This section includes the information on record at CT for the Encounter. Date/Time Encounter Type Encounter Description Reason Pro vider Source Jul 29, 2024 09:31 AM Outpatient Encounter PRIMARY CARE/MEDICINE IHE Encounter [...] 20 appointments. The data comes from all CT treatment facilities. Appointment Date/Time Appointment Type Appointme nt Facility Name Jul 30, 2024 09:30 AM [facility] Aug 05, 2024 09:45 AM [facility] Sep 06, 2024 11:00 AM AMBULATORY - MEDICINE [facility] Sep 26, 2024 12:30 PM AMBULATORY - MEDICINE [facility] Oct 08, 2024 09:30 AM [facility] Oct 21, 2024 09:30 AM AMBULATORY - MEDICINE [facility] Lab Results: +/- 30 days of the encounter This section includes the Chemistry and Hematology Lab Results on record with CT for the patient. Radiology Reports and Pathology Reports are provided separately, in subsequent sections. Lab Results This section contains the Chemistry/Hematology Results that were resulted 30 days before or 30 daysafter the date of the Encounter. Date/Time Source Result Type Result - Unit Interpretation Reference Range Comment Aug 01, 2024 08:18 AM [facility] HEMOGLOBIN A1C PANEL Specimen Type: BLOOD Comment: Values obtained from A1C measurements can vary. For atypical A1C assays, a reported value of 7.0 could actually be between 6.72 and 7.28 if measured by a reference method. A reported value of 9.0 could actually be between 8.73 and 9.27. Ref: http://www.ngs p.org/CAPdata. asp Ordering Provider: TRACY VILLANUEVA Report Released Date/Time: Jul 30, 2024 09:45 AM Reporting Lab: [address] [address] Performing Lab: [address] [address] HEMOGLOBIN A1C 8.1 H 4.0-5.6 Aug 01, 2024 08:18 AM [facility] LIVER FUNCTION Specimen Type: SERUM No comment entered. Ordering Provider: TRACY VILLANUEVA Report Released Date/Time: Jul 30, 2024 09:45 AM Reporting Lab: [address] [address] Performing Lab: [address] [address] PROTEIN,TOTAL 7.2 g/dL 6.0-8.3 ALBUMIN 3.9 g/dL 3.5-5.0 ALKALINE PHOSPHATASE 78 U/L 40-150 AST 16 U/L 5-34 ALT 18 U/L BILIRUBIN, TOTAL 0.8 mg/dL 0.2-1.2 Aug 01, 2024 08:18 AM [facility] LIPID PANEL, NON FASTING Specimen Type: SERUM No comment entered. Ordering Provider: TRACY VILLANUEVA Report Released Date/Time: Jul 30, 2024 09:45 AM Reporting Lab: [address] [address] Performing Lab: [address] [address] CHOLESTEROL 155 mg/dL TRIGLYCERIDE 78 mg/dL 0-150 LDL calculated 85 mg/dL 0-129 CHOL/HDL 2.9 HDL CHOLESTEROL 54 mg/dL 40-60 Aug 01, 2024 08:18 AM [facility] BASIC METABOLIC PANEL (non-fasting) Spe cimen Type: SERUM No comment entered. Ordering Provider: TRACY VILLANUEVA Report Released Date/Time: Jul 30, 2024 09:45 AM Reporting Lab: [address] [address] Performing Lab: [address] [address] UREA NITROGEN 14 mg/dL 7-25 GLUCOSE 218 mg/dL H 65-100 SODIUM 136 mmol/L 135-145 POTASSIUM 4.1 mmol/L 3.5-5.0 CHLORIDE 101 mmol/L 100-110 CO2 26 meq/L 20-30 CREATININE, Serum 0.77 mg/dL 0.50-1.40 eGFR(CKD-EPI 2020) 88 mL/min >60 Social History: Smoking Status (Most current) and Tobacco Use (All prior to encounter date) This section includes the most current, and the historical, smoking and tobacco- related health factors from the CT facility where the Encounter took place. Current Smoking Status This section includes the most current smoking, or tobacco-related health factor, from the CT facility where the Encounter took place. Date/Time Current Smoking Status Comment Facil it December 25, 2023 09:05 AM VA-TOBACCO NEVER USED CT [facility] [place] [facility] Tobacco Use History This section includes a history of the smoking, or tobacco-related health factors, that were collected on or before the date of the Encounter. The data comes from the CT facility where the Encounter took place. Date/Time Smoking Status/Tobac co Use Comment Facility Dec 13, 2022 03:00 PM VA-TOBACCO DOESNT USE WI 30 MIN WAKEUP [facility] [place] [facility] Dec 13, 2022 03:00 PM VA-TOBACCO USE 30 YEARS OR MORE [facility] [place] [facility] Dec 13, 2022 03:00 PM VA-TOBACCO USE ADVICE [facility] [place] [facility] Dec 13, 2022 03:00 PM VA-TOBACCO USE TRACK MAN NO [facility] [place] [facility] Dec 13, 2022 03:00 PM VA-TOBACCO USE MED NO [facility] [place] [facility] Dec 13, 2022 03:00 PM VA-TOBACCO USER EVERY DAY [facility] [place] [facility] Nov 17, 2021 10:00 AM VA-TOBACCO USE 30 YEARS OR MORE [facility] [place] [facility] Nov 17, 2021 10:00 AM VA-TOBACCO USE ADVICE [facility] [place] [facility] Nov 17, 2021 10:00 AM VA-TOBACCO USE TRACK MAN NO [facility] [place] [facility] Nov 17, 2021 10:00 AM VA-TOBACCO USE MED NO [facility] [place] [facility] Nov 17, 2021 10:00 AM VA-TOBACCO USE WI 30 MIN OF WAKEUP [facility] [place] [facility] Nov 17, 2021 10:00 AM VA-TOBACCO USER EVERY DAY [facility] [place] [facility] Oct 14, 2013 12:55 PM V1-PT NOT INTERESTED IN QUIT TOBACCO USE [facility] [place] [facility] May 07, 2013 05:04 PM CURRENT SMOKER trying to stop [facility] [place] [facility] May 07, 2013 05:04 PM V1-PT DECLINES REF TO TOBACCO CESS PRGM [facility] May 07, 2013 05:04 PM V1-PT DECLINES TOBACCO CESSATION MEDS [facility] May 07, 2013 05:04 PM V1-PT READY TO QUIT TOBACCO USE [facility] Dec 03, 2012 08:23 AM V1-PT DECLINES REF TO TOBACCO CESS PRGM [facility] Dec 03, 2012 08:23 AM V1-PT DECLINES TOBACCO CESSATION MEDS [facility] Dec 03, 2012 08:23 AM V1-PT THINKING ABOUT QUIT TOBACCO USE [facility] [place] [facility] Jun 05, 2012 08:45 AM CURRENT SMOKER 1/2ppd [facility] Jun 05, 2012 08:45 AM V1-PT DECLINES REF TO TOBACCO CESS PRGM [facility] Jun 05, 2012 08:45 AM V1-PT THINKING ABOUT QUIT TOBACCO USE [facility] Jun 05, 2012 08:45 AM V1-TOBACCO CESS MEDS NOT PRESCRIBED Vet wants to talk to his provider-He is nervous about taking meds to quit- but he is interested in quitting [facility] Nov 25, 2011 09:14 AM V1-PT DECLINES REF TO TOBACCO CESS PRGM [facility] Nov 25, 2011 09:14 AM V1-PT DECLINES TOBACCO CESSATION MEDS [facility] Nov 25, 2011 09:14 AM V1-PT THINKING ABOUT QUIT TOBACCO USE [facility] May 06, 2011 01:02 PM CURRENT SMOKER [facility] May 06, 2011 01:02 PM V1-PT DECLINES TOBACCO CESSATION MEDS [facility] May 06, 2011 01:02 PM V1-PT NOT INTERESTED IN QUIT TOBACCO USE [facility] Sep 24, 2010 08:51 AM V1-PT DECLINES TOBACCO CESSATION MEDS [facility] [place] [facility] Sep 24, 2010 08:51 AM V1-PT THINKING ABOUT QUIT TOBACCO USE [facility] [place] [facility] Mar 22, 2010 07:58 AM CURRENT SMOKER 1/2 ppd [facility] [place] [facility] Feb 25, 2009 12:05 PM QUIT TOBACCO USE IN PAST YEAR [facility] [place] [facility] Aug 26, 2008 09:28 AM CURRENT SMOKER 1/2 ppd [facility] [place] [facility] Aug 26, 2008 09:28 AM V1-PT DECLINES REF TO TOBACCO CESS PRGM [facility] [place] [facility] Aug 26, 2008 09:28 AM V1-PT READY TO QUIT TOBACCO USE [facility] [place] [facility] Dec 19, 2007 10:08 AM V1-PT DECLINES REF TO TOBACCO CESS PRGM [facility] [place] [facility] Dec 19, 2007 10:08 AM V1-PT DECLINES TOBACCO CESSATION MEDS [facility] [place] [facility] Dec 19, 2007 10:08 AM V1-PT THINKING ABOUT QUIT TOBACCO USE [facility] [place] [facility] Sep 11, 2007 11:10 AM CURRENT SMOKER [facility] [place] [facility] Sep 11, 2007 11:10 AM V1-PT DECLINES REF TO TOBACCO CESS PRGM CT [facility] [place] [place] [facility] Sep 11, 2007 11:10 AM V1-PT DECLINES TOBACCO CESSATION MEDS [facility] [place] [facility] Sep 11, 2007 11:10 AM V1-PT THINKING ABOUT QUIT TOBACCO USE [facility] [place] [facility] Feb 13, 2007 01:46 PM V1-PT DECLINES REF TO TOBACCO CESS PRGM CT [facility] [place] [place] [facility] Feb 13, 2007 01:46 PM V1-PT DECLINES TOBACCO CESSATION MEDS [facility] [place] [facility] Feb 13, 2007 01:46 PM V1-PT THINKING ABOUT QUIT TOBACCO USE [facility] [place] [facility] Oct 02, 2006 08:28 AM QUIT TOBACCO USE IN PAST YEAR 3 months ago [facility] [place] [facility] Aug 19, 2005 08:33 AM QUIT TOBACCO USE IN PAST YEAR nonsm[facility] Sep 21, 2004 09:54 AM CURRENT SMOKER [facility] Sep 07, 2004 08:07 AM CURRENT SMOKER [facility] Sep 15, 2003 11:21 AM CURRENT SMOKER smokes one pk day [facility] Jul 23, 2003 01:57 PM CURRENT SMOKER [facility] Advance Directives: All historical and current Section Date Range: From patient's date of to the date document was created. This section includes ALL of a patient's completed or amended CT Advance and Rescinded Directives. The entries below indicate that a directive exists for the patient, but an actual copy is not included with this document. The data comes from all CT facilities. Date Advance Directives Provider Source Apr 10, 2023 ADVANCE DIRECTIVE [facility] Apr 19, 2007 ADVANCE DIRECTIVE VICTORIA JOHNSON [facility] Encounter Notes: All associated encounter notes This section contains the clinical notes associated to the Encounter. Date/Time Encounter Note(s) Provider Source Jul 29, 2024 09:31 AM PRIMARY CARE NOTE: LOCAL TITLE: WALK-IN NOTE PRIMARY CARE (T) STANDARD TITLE: PRIMARY CARE NOTE DATE OF NOTE: JUL 29, 2024@09:31 ENTRY DATE: JUL 29, 2024@09:31:41 AUTHOR: SHANEKA ANGEL COSIGNER: URGENCY: STATUS: COMPLETED WALK-IN NOTE PRIMARY CARE (T) Has ADDENDA <====Click to Start Advanced Medical Support presents to the Primary Care clinic with the following request: [ ]Medication Renewal/Refill [ ]Consultation with Team RN [ ]Symptoms [ X ]Other The [place] states they are: [ ]Waiting [ X ]Not Waiting No Walk in visit scheduled with PACT Nurse [ X ] At this encounter the 's demographics were verified. [ X ] At this encounter the [place]'s Insurance information was verified. [ X ] At this encounter the below scheduled visits for the were discussed and appointment reminder card was offered. Future appointments: 07/30/2024 09:30 CWM/NO/VVC/MHC/DANIELS1 08/05/2024 09:45 CWM/NO/VVC/PAIN [facility] 08/08/2024 10:30 CWM/SO/PACT 7 09/06/2024 11:00 CWM/SO/PHARM/PACT 2 10/21/2024 09:30 CWM/SO/PODIATRY/TALIB [place] states he received a case of ensure drinks but he can't drink them an alternative was supposed to be ordered. /reginaldo/ SHANEKA SMITH Signed: 07/29/2024 09:33 Receipt Acknowledged By: 07/30/2024 11:48 /reginaldo/ MARCUS DOZIER LPN LPN 07/29/2024 13:51 /reginaldo/ ZACHARY ABBOTT RN REGISTERED NURSE 07/29/2024 ADDENDUM STATUS: COMPLETED PCP has reordered. /reginaldo/ ZACHARY ABBOTT RN REGISTERED NURSE Signed: 07/29/2024 13:51 SHANEKA ANGEL [facility]
--- OUTSIDE RECORDS SUMMARY | 2024-08-16 09:37 | XMS_ITS | Encounter Summary ---
Author Name [facility] [place] Organization [facility] [place] Address [address] [place] [address] Care Team Providers Care Document Control Assistant Name Role Phone TRACY VILLANUEVA Primary Care [...] PHI MEDEX BRONZ E December 19, 2013 [id number] GUSTAVO ARAMBULA SR PATIENT [employer] MEDICARE SUPPLEMEN PHI MEDIC ARE SUPPL EMENT Jul 21, 2007 NONE [id number] Edgar ARAMBULA PATIENT [place] SUPPLEMEN PHI MEDEX BRONZ E December 19, 2013 [id number] [phone] GUSTAVO ARAMBULA SR PATIENT [place] ([place] MEDICARE SUPPLEMEN PHI MEDEX BRONZ E December 19, 2013 [id number] Edgar ARAMBULA PATIENT MEDICARE (WNR) MEDICARE () PART A Oct 19, 2004 PART A [id number] Edgar ARAMBULAN PATIENT MEDICARE (WNR) MEDICARE () PART B Oct 19, 2004 PART B [id number] Edgar ARAMBULA [place] PATIENT MEDICARE ([place]) MEDICARE () PART A Oct 19, 2004 PART A [id number] Edgar ARAMBULAN PATIENT MEDICARE (WNR) MEDICARE () PART B Oct 19, 2004 PART B [id number] [id number] Edgar ARAMBULAN PATIENT MEDICARE (WNR) MEDICARE () PART B Oct 19, 2004 PART B [id number] Edgar ARAMBULA [place] PATIENT MEDICARE ([place]) MEDICARE () PART A Oct 19, 2004 PART A [id number] Edgar ARAMBULAN PATIENT MEDICARE (WNR) MEDICARE () PART A Oct 19, 2004 PART A [id number] [phone] Edgar ARAMBULA PATIENT MEDICARE (WNR) MEDICARE () PART B Oct 19, 2004 PART B [id number] Edgar ARAMBULAN PATIENT MEDICARE (WNR) MEDICARE () PART A Oct 19, 2004 PART A [id number] [phone] Edgar ARAMBULAN PATIENT MEDICARE (WNR) MEDICARE () PART B Oct 19, 2004 PART B [id number] Edgar ARAMBULAN PATIENT Selected Encounter This section includes the information on record at [place] for the Encounter. Date/Time Encounter Type Encounter Description Reason Pro vider Source Jul 31, 2024 02:18 PM Outpatient Encounter PRIMARY CARE/MEDICINE IHE Encounter Template Text not used by [place] Plan of Treatment: Future Appointments (+ 6 [...] Date/Time Appointment Type Appointme nt Facility Name Aug 05, 2024 09:45 AM [facility] Sep 06, 2024 11:00 AM [facility] Sep 26, 2024 12:30 PM AMBULATORY - MEDICINE [facility] Oct 08, 2024 09:30 AM [facility] Oct 21, 2024 09:30 AM AMBULATORY - MEDICINE [facility] Lab Results: +/- 30 days of [...] Range Comment Aug 01, 2024 08:18 AM [place] HEMOGLOBIN A1C PANEL Specimen Type: BLOOD Comment: [...] Jul 30, 2024 09:45 AM Reporting Lab: [address] [address] Performing Lab: [address] [address] HEMOGLOBIN A1C 8.1 H 4.0-5.6 Aug 01, 2024 08:18 AM [place] LIVER FUNCTION Specimen Type: SERUM No comment entered. Ordering Provider: TRACY VILLANUEVA Report Released Date/Time: Jul 30, 2024 09:45 AM Reporting Lab: [address] [place] [address] Performing Lab: [address] [address] PROTEIN,TOTAL 7.2 g/dL 6.0-8.3 ALBUMIN 3.9 g/dL 3.5-5.0 ALKALINE PHOSPHATASE 78 U/L 40-150 AST 16 U/L 5-34 ALT 18 U/L BILIRUBIN, TOTAL 0.8 mg/dL 0.2-1.2 Aug 01, 2024 08:18 AM [place] LIPID PANEL, NON FASTING Specimen Type: SERUM No comment entered. Ordering Provider: TRACY VILLANUEVA Report Released Date/Time: Jul 30, 2024 09:45 AM Reporting Lab: [address] [address] Performing Lab: [address] [address] CHOLESTEROL 155 mg/dL TRIGLYCERIDE 78 mg/dL 0-150 LDL calculated 85 mg/dL 0-129 CHOL/HDL 2.9 HDL CHOLESTEROL 54 mg/dL 40-60 Aug 01, 2024 08:18 AM [place] BASIC METABOLIC PANEL (non-fasting) Spe cimen Type: SERUM No comment entered. Ordering Provider: TRACY VILLANUEVA Report Released Date/Time: Jul 30, 2024 09:45 AM Reporting Lab: [address] [address] Performing Lab: [address] [address] UREA NITROGEN 14 mg/dL 7-25 GLUCOSE 218 [...] AM VA-TOBACCO NEVER USED [place] [facility] [place] [facility] Tobacco Use History This section includes a history of the smoking, or tobacco-related health factors, that were collected on or before the date of the Encounter. The data comes from the [place] facility where the Encounter took place. 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 NO [facility] [place] [facility] Dec 13, 2022 03:00 PM VA-TOBACCO USE MED NO [facility] [place] [facility] Dec 13, 2022 03:00 PM VA-TOBACCO USER EVERY DAY [facility] [place] [facility] Nov 17, 2021 10:00 AM VA-TOBACCO USE 30 YEARS OR MORE [facility] [place] [facility] Nov 17, 2021 10:00 AM VA-TOBACCO USE ADVICE [facility] [place] [facility] Nov 17, 2021 10:00 AM VA-TOBACCO USE MEDICAL SAFETY DIRECTOR NO [facility] [place] [facility] Nov 17, 2021 10:00 AM VA-TOBACCO USE MED NO [facility] [place] [facility] Nov 17, 2021 10:00 AM VA-TOBACCO USE WI 30 MIN OF WAKEUP [facility] [place] [facility] Nov 17, 2021 10:00 AM VA-TOBACCO USER EVERY DAY [facility] [place] [facility] Oct 14, 2013 12:55 PM V1-PT NOT INTERESTED IN QUIT TOBACCO USE [facility] [place] [facility] May 07, 2013 05:04 PM CURRENT SMOKER trying to stop [facility] [place] [facility] May 07, 2013 05:04 PM V1-PT DECLINES REF TO TOBACCO CESS PRGM [facility] May 07, 2013 05:04 PM V1-PT DECLINES TOBACCO CESSATION MEDS [facility] May 07, 2013 05:04 PM V1-PT READY TO QUIT TOBACCO USE [facility] Dec 03, 2012 08:23 AM V1-PT DECLINES REF TO TOBACCO CESS PRGM [facility] Dec 03, 2012 08:23 AM V1-PT DECLINES TOBACCO CESSATION MEDS [facility] Dec 03, 2012 08:23 AM V1-PT THINKING ABOUT QUIT TOBACCO USE [facility] Jun 05, 2012 08:45 AM CURRENT SMOKER 1/2ppd [facility] Jun 05, 2012 08:45 AM V1-PT DECLINES REF TO TOBACCO CESS [facility] Jun 05, 2012 08:45 AM V1-PT THINKING ABOUT QUIT TOBACCO USE [facility] Jun 05, 2012 08:45 AM V1-TOBACCO CESS MEDS NOT PRESCRIBED Vet wants to talk to his provider-He is nervous about taking meds to quit- but he is interested in quitting [facility] Nov 25, 2011 09:14 AM V1-PT DECLINES REF TO TOBACCO CESS [facility] Nov 25, 2011 09:14 AM V1-PT DECLINES TOBACCO CESSATION MEDS [facility] Nov 25, 2011 09:14 AM V1-PT THINKING ABOUT QUIT TOBACCO USE [facility] [place] [facility] May 06, 2011 01:02 PM CURRENT SMOKER [facility] May 06, 2011 01:02 PM V1-PT DECLINES TOBACCO CESSATION MEDS [facility] May 06, 2011 01:02 PM V1-PT NOT INTERESTED IN QUIT TOBACCO USE [facility] Sep 24, 2010 08:51 AM V1-PT DECLINES TOBACCO CESSATION MEDS [facility] Sep 24, 2010 08:51 AM V1-PT THINKING ABOUT QUIT TOBACCO USE [facility] [place] [facility] Mar 22, 2010 07:58 AM CURRENT SMOKER 1/2 ppd [facility] [place] [facility] Feb 25, 2009 12:05 PM QUIT TOBACCO USE IN PAST YEAR [facility] [place] [facility] Aug 26, 2008 09:28 AM CURRENT SMOKER 1/2 ppd [facility] [place] [facility] Aug 26, 2008 09:28 AM V1-PT DECLINES REF TO TOBACCO CESS PRGM [facility] [place] [facility] Aug 26, 2008 09:28 AM V1-PT READY TO QUIT TOBACCO USE [facility] [place] [facility] Dec 19, 2007 10:08 AM V1-PT DECLINES REF TO TOBACCO CESS PRGM [facility] [place] [facility] Dec 19, 2007 10:08 AM V1-PT DECLINES TOBACCO CESSATION MEDS [facility] [place] [facility] Dec 19, 2007 10:08 AM V1-PT THINKING ABOUT QUIT TOBACCO USE [facility] [place] [facility] Sep 11, 2007 11:10 AM CURRENT SMOKER [facility] [place] [facility] Sep 11, 2007 11:10 AM V1-PT DECLINES REF TO TOBACCO CESS PRGM [facility] [place] [facility] Sep 11, 2007 11:10 AM V1-PT DECLINES TOBACCO CESSATION MEDS [facility] [place] [facility] Sep 11, 2007 11:10 AM V1-PT THINKING ABOUT QUIT TOBACCO USE [facility] [place] [facility] Feb 13, 2007 01:46 PM V1-PT DECLINES REF TO TOBACCO CESS PRGM [facility] [place] [facility] Feb 13, 2007 01:46 PM V1-PT DECLINES TOBACCO CESSATION MEDS [facility] [place] [facility] Feb 13, 2007 01:46 PM V1-PT THINKING ABOUT QUIT TOBACCO USE [facility] [place] [facility] Oct 02, 2006 08:28 AM QUIT TOBACCO USE IN PAST YEAR 3 months ago [facility] [place] [facility] Aug 19, 2005 08:33 AM QUIT TOBACCO USE IN PAST YEAR nonsmoker [facility] [place] [facility] Sep 21, 2004 09:54 AM [facility] [place] [facility] Sep 07, 2004 08:07 AM CURRENT SMOKER [facility] [place] [facility] Sep 15, 2003 11:21 AM CURRENT SMOKER smokes one pk day [facility] [place] [facility] Jul 23, 2003 01:57 PM [facility]ER [facility] Advance Directives: All historical and current [...] ADVANCE DIRECTIVE ESSIE STARK [facility] Apr 19, 2007 ADVANCE DIRECTIVE VICTORIA JOHNSON [facility] Encounter Notes: All associated encounter notes This section contains the clinical notes associated to the Encounter. 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
--- OUTSIDE RECORDS SUMMARY | 2024-08-16 09:37 | XMS_ITS ---
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 & CASUALTY MEDICARE SUPPLEMEN PHI MEDIC ARE SUPPL EMENT Jul 21, 2007 NONE [id number] Edgar ARAMBULA PATIENT [place] MED[place] SUPPLEMEN PHI MEDEX BRONZ E December 19, 2013 [id number] GUSTAVO ARAMBULA SR PATIENT [place] ([place]ARD) MEDICARE SUPPLEMEN PHI MEDEX BRONZ E December 19, 2013 [id number] SEVIGNEEdgar [place] PAT[place] MEDIC[place] (WNR) MEDICARE () PART A Oct 19, 2004 PART A [id number] [id number] SABRAIGNEEdgar [place] PAT[place]IC[place] ([place]) MEDICARE (M) PART B Oct 19, 2004 PART B [id number] [id number] SEVIGNEEdgar [place] PAT[place]IC[place] ([place]) MEDICARE () PART A Oct 19, 2004 PART A [id number] SEVIG[place]Edgar [place] PAT[place]IC[place]) MEDICARE () PART B Oct 19, 2004 PART B [id number] SEVIGNEEdgar [place] PAT[place]) MEDICARE () PART A Oct 19, 2004 PART A [id number] SEVIGNE,Edgar [place] PAT[place]IC[place] ([place]) MEDICARE () PART B Oct 19, 2004 PART B [id number] [id number] SEVIGNEEdgar [place] PAT[place] MEDICARE ([place]) MEDICARE () PART A Oct 19, 2004 PART A [id number] [phone] SEVIGNEEdgar [place] PAT[place]IC[place]) MEDICARE () PART B Oct 19, 2004 PART B [id number] [id number] SEVIGNEEdgar [place] PAT[place]IC[place] ([place]) MEDICARE () PART A Oct 19, 2004 PART A [id number] SEVABIEEdgar [place] PAT[place] MEDICARE ([place]) MEDICARE () PART B Oct 19, 2004 PART B [id number] SEVIGNEEdgar [place] PATIENT Selected Encounter This section includes the information on record at [facility] for the Encounter. Date/Time Encounter Type Encounter Description Reason Provider Source Jul 05, 2024 09:00 AM CONFORMITY EVALUATION AUDIOLOGY ICD-10-CM Z46.1 Encounter for fitting and adjustment of hearing aid MATTHEW MULLEN Encounter Template Text not used by [facility] Assessments - Encounter Diagnoses This section includes the primary and secondary diagnoses documented for the Encounter. Date/Time Primary/Secondary Diagnosis Diagnosis Name Provider Source Jul 05, 2024 09:53 AM PRIMARY Encounter for fitting and adjustment of hearing aid MATTHEW MULLEN [facility] Jul 05, 2024 09:53 AM SECONDARY Sensorineural hearing loss, bilateral MATTHEW MULLEN [facility] Plan of Treatment: Future Appointments (+ 6 months) and Future Tests (+/- 45 days) The Plan of Treatment section includes future care activities for the patient from all [place] [facility] This section includes future appointments [...] 30, 2024 09:30 AM AMBULATORY - PSYCHIATRY PR [facility] Aug 05, 2024 09:45 AM AMBULATORY - MEDICINE [facility] Sep 06, 2024 11:00 AM AMBULATORY - MEDICINE [place] [facility] Sep 26, 2024 12:30 PM AMBULATORY - MEDICINE [facility] Oct 08, 2024 09:30 AM AMBULATORY PSYCHIATRY [facility] Oct 21, 2024 09:30 AM AMBULATORY - MEDICINE [facility] Lab Results: +/- 30 days [...] Range Comment Aug 01, 2024 08:18 AM [facility] LIVER FUNCTION Specimen Type: SERUM No comment entered. Ordering Provider: TRACY VILLANUEVA Report Released Date/Time: Jul 30, 2024 09:45 AM Reporting Lab: [address] [address] Performing Lab: [address] [address] PROTEIN,TOTAL 7.2 g/dL 6.0-8.3 ALBUMIN 3.9 g/dL 3.5-5.0 ALKALINE PHOSPHATASE 78 U/L 40-150 AST 16 U/L 5-34 ALT 18 U/L BILIRUBIN, TOTAL 0.8 mg/dL 0.2-1.2 Aug 01, 2024 08:18 AM [facility] LIPID PANEL, NON FASTING Specimen Type: SERUM No comment entered. Ordering Provider: TRACY VILLANUEVA Report Released Date/Time: Jul 30, 2024 09:45 AM Reporting Lab: [facility] [address] [address] Performing Lab: [address] [address] CHOLESTEROL 155 mg/dL TRIGLYCERIDE 78 mg/dL 0-150 LDL calculated 85 mg/dL 0-129 CHOL/HDL 2.9 HDL CHOLESTEROL 54 mg/dL 40-60 Aug 01, 2024 08:18 AM [facility] BASIC METABOLIC PANEL (non-fasting) Spe cimen Type: SERUM No comment entered. Ordering Provider: TRACY VILLANUEVA Report Released Date/Time: Jul 30, 2024 09:45 AM Reporting Lab: [facility] [address] [facility] [address] Performing Lab: [address] [address] UREA NITROGEN 14 mg/dL 7-25 GLUCOSE 218 mg/dL H 65-100 SODIUM 136 mmol/L 135-145 POTASSIUM 4.1 mmol/L 3.5-5.0 CHLORIDE 101 mmol/L 100-110 CO2 26 meq/L 20-30 CREATININE, Serum 0.77 mg/dL 0.50-1.40 eGFR(CKD-EPI 2020) 88 mL/min >60 Aug 01, 2024 08:18 AM [facility] HEMOGLOBIN A1C PANEL Specimen Type: BLOOD Comment: [...] Jul 30, 2024 09:45 AM Reporting Lab: [place] [facility] [place] [facility] [address] [address] Performing Lab: [facility] [place] [facility] [address] [facility] [address] HEMOGLOBIN A1C 8.1 H 4.0-5.6 Social History: Smoking Status (Most current) and [...] AM VA-TOBACCO NEVER USED [facility] Tobacco Use History This section includes a history of the smoking, or tobacco-related health factors, that were collected on or before the date of the Encounter. The data comes from the [place] facility where the Encounter took place. 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 [facility] [place] [facility] Dec 13, 2022 03:00 PM VA-TOBACCO USE MED NO [facility] [place] [facility] Dec 13, 2022 03:00 PM VA-TOBACCO USER EVERY DAY [facility] [place] [facility] Nov 17, 2021 10:00 AM VA-TOBACCO USE 30 YEARS OR MORE [facility] [facility] Nov 17, 2021 10:00 AM VA-TOBACCO USE ADVICE [facility] [facility] Nov 17, 2021 10:00 AM VA-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 Nov 17, 2021 10:00 AM VA-TOBACCO USE WI 30 MIN OF WAKEUP [facility] Nov 17, 2021 10:00 AM VA-TOBACCO USER EVERY DAY [facility] Oct 14, 2013 12:55 PM V1-PT NOT INTERESTED IN QUIT TOBACCO USE [facility] May 07, 2013 05:04 PM CURRENT SMOKER trying to stop [facility] May 07, 2013 05:04 PM V1-PT DECLINES REF TO TOBACCO CESS PRGM [facility] May 07, 2013 05:04 PM V1-PT DECLINES TOBACCO CESSATION MEDS [facility] May 07, 2013 05:04 PM V1-PT READY TO QUIT TOBACCO USE [facility] Dec 03, 2012 08:23 AM V1-PT DECLINES REF TO TOBACCO CESS PRGM [facility] Dec 03, 2012 08:23 AM V1-PT DECLINES TOBACCO CESSATION MEDS [facility] Dec 03, 2012 08:23 AM V1-PT THINKING ABOUT QUIT TOBACCO USE [facility] Jun 05, 2012 08:45 AM CURRENT SMOKER 1/2ppd [facility] Jun 05, 2012 08:45 AM V1-PT DECLINES REF TO TOBACCO CESS PRGM [facility] Jun 05, 2012 08:45 AM V1-PT THINKING ABOUT QUIT TOBACCO USE [facility] Jun 05, 2012 08:45 AM V1-TOBACCO CESS MEDS NOT PRESCRIBED Vet wants to talk to his provider-He is nervous about taking meds to quit- but he is interested in quitting [facility] Nov 25, 2011 09:14 AM V1-PT DECLINES REF TO TOBACCO CESS PRGM [facility] Nov 25, 2011 09:14 AM V1-PT DECLINES TOBACCO CESSATION MEDS [facility] [place] [facility] Nov 25, 2011 09:14 AM V1-PT THINKING ABOUT QUIT TOBACCO USE [facility] [place] [facility] May 06, 2011 01:02 PM CURRENT SMOKER [facility] [place] [facility] May 06, 2011 01:02 PM V1-PT DECLINES TOBACCO CESSATION MEDS [facility] [place] [facility] May 06, 2011 01:02 PM V1-PT NOT INTERESTED IN QUIT TOBACCO USE [facility] [facility] Sep 24, 2010 08:51 AM V1-PT DECLINES TOBACCO CESSATION MEDS [facility] [place] [facility] Sep 24, 2010 08:51 AM V1-PT THINKING ABOUT QUIT TOBACCO USE [facility] [place] [facility] Mar 22, 2010 07:58 AM CURRENT SMOKER 1/2 ppd [facility] [place] [facility] Feb 25, 2009 12:05 PM QUIT TOBACCO USE IN PAST YEAR [facility] [place] [facility] Aug 26, 2008 09:28 AM CURRENT SMOKER 1/2 ppd [facility] [place] [facility] Aug 26, 2008 09:28 AM V1-PT DECLINES REF TO TOBACCO CESS PRGM [facility] [place] [facility] Aug 26, 2008 09:28 AM V1-PT READY TO QUIT TOBACCO USE [facility] [place] [facility] Dec 19, 2007 10:08 AM V1-PT DECLINES REF TO TOBACCO CESS PRGM [facility] [facility] Dec 19, 2007 10:08 AM V1-PT DECLINES TOBACCO CESSATION MEDS [facility] [facility] Dec 19, 2007 10:08 AM V1-PT THINKING ABOUT QUIT TOBACCO USE [facility] [place] [facility] Sep 11, 2007 11:10 AM CURRENT SMOKER [facility] [place] [facility] Sep 11, 2007 11:10 AM V1-PT DECLINES REF TO TOBACCO CESS PRGM [facility] [facility] Sep 11, 2007 11:10 AM V1-PT DECLINES TOBACCO CESSATION MEDS [facility] [facility] Sep 11, 2007 11:10 AM V1-PT THINKING ABOUT QUIT TOBACCO USE [facility] [place] [facility] Feb 13, 2007 01:46 PM V1-PT DECLINES REF TO TOBACCO CESS [facility] Feb 13, 2007 01:46 PM V1-PT DECLINES TOBACCO CESSATION MEDS [facility] Feb 13, 2007 01:46 PM V1-PT THINKING ABOUT QUIT TOBACCO USE [facility] Oct 02, 2006 08:28 AM QUIT TOBACCO USE IN PAST YEAR 3 months ago [facility] Aug 19, 2005 08:33 AM QUIT TOBACCO USE IN PAST YEAR nonsmoker [facility] Sep 21, 2004 09:54 AM CURRENT SMOKER [facility] Sep 07, 2004 08:07 AM CURRENT SMOKER [facility] Sep 15, 2003 11:21 AM CURRENT SMOKER smokes one pk day [facility] Jul 23, 2003 01:57 PM CURRENT SMOKER [facility] Advance Directives: All historical [...] Apr 10, 2023 ADVANCE DIRECTIVE GEORGEESSIE DOZIER [facility] Apr 19, 2007 ADVANCE DIRECTIVE VICTORIA JOHNSON [facility] Encounter Notes: All associated encounter notes This section contains the clinical notes associated to the Encounter. Date/Time Encounter Note(s) Provider Source Jul 05, 2024 08:44 AM AUDIOLOGY E & M NO TE: LOCAL TITLE: AUDIOLOGY CLINIC STANDARD TITLE: AUDIOLOGY E & M NOTE DATE OF NOTE: JUL 05, 2024@08:44 ENTRY DATE: JUL 05, 2024@08:44:49 AUTHOR: MATTHEW MULLEN COSIGNER: URGENCY: STATUS: COMPLETED Diagnosis: bilateral sensorineural hearing loss Hearing Aid Fitting: SUBJECTIVE (S): The was seen for hearing aid fitting and issuance. S/He had previously been evaluated and found to exhibit significant hearing loss for which amplification was recommended. How does the patient/client best learn? verbal instruction, demonstration Does the patient/client have any cultural and moravian beliefs, emotional barriers, physical or cognitive limitations, and communication barriers which may impact his/her ability to learn? no Desire and motivation to learn? Good OBJECTIVE (O): Physical fit of earmolds/receivers and domes/hearing aids was good. verified comfort. Verification of an appropriate acoustic response was obtained using Real Ear measurements (speech mapping) and NAL-NL2 targets. The reported good subjective benefit as well. Feedback manager educational was run. Hearing aids were found to be meeting targets adequately through 3k and MPO was not exceeding estimated UCL. Settings stored in KADEN. ASSESSMENT (A): The following device(s) was/were issued: Make: Phonak Model: VisualOneo L90 RL [facility] Serial Numbers: [id number] Battery size: RECHARGEABLE Trial Period ends: 12-07-24 Domes/wax guards, etc.: cerustop Earmold Information: c shell clear, lucite, canal lock Yard Manager size/power: 2M Program Settings (VC, Programs, Buttons): VCs enabled, synched Fitting Formula: Adaptive Phonak digital Remote programming: capable Counseling was completed today throughout todays appointment using a standardized curriculum that includes but is not limited to; realistic expectations with amplification in adverse listening environments, acclimatization to own voice and environmental sounds (following real-ear measurements), the importance of consistent use of amplification, proper insertion/removal, care and maintenance (including wax guards/domes if applicable), signal and alerts of devices, and charging/batteries. The was provided the opportunity to practice in office and reports confidence/understanding in all items reviewed. was given written reference materials today. The was informed of and agreed to [place] policy on hearing aid issuance: Users are responsible for the maintenance and security of their devices. Determination of need to replace a hearing aid is made by the [place] door trimmer. Hearing aids will not be replaced in cases of neglect, abuse, or excessive loss. Items issued are for personal use only. Prognosis for successful hearing aid use is good. PLAN (P): 1. Contact clinic with any problems/concerns. 2. The International Outcome Inventory-Hearing Aids (IOI-ORO) will be mailed to the in four weeks. He/she was asked to mail back to clinic after completion. Patient Education Education provided on the following topics: hearing aid management Education provided to: P Response to Education: VU, RD, PI Whitaker Patient P Family F Significant Other SO Verbalizes Understanding VU Returns Demonstration RD Performs Independently PI Lacks Comprehension LC Refused Education RE Not Applicable NA /reginaldo/ Wes [place], [facility] Signed: 07/05/2024 09:57 MATTHEW MULLEN [facility] [place] [facility]
--- OUTSIDE RECORDS SUMMARY | 2024-08-16 09:37 | XMS_ITS | Encounter Summary ---
Author Name [facility] [place] Address [address] [place] [address] Care Team Providers Care Certified Diabetes Educator Name Role Phone TRACY VILLANUEVA Primary Care [...] PHI MEDEX BRONZ E December 19, 2013 [id number] GUSTAVO ARAMBULA SR PATIENT B[employer]ERS LIFE & CASUALTY MEDICARE SUPPLEMEN PHI MEDIC ARE SUPPL EMENT Jul 21, 2007 NONE [id number] Edgar ARAMBULA PATIENT [place] SUPPLEMEN PHI MEDEX BRONZ E December 19, 2013 [id number] GUSTAVO ARAMBULA SR PATIENT [place] MEDICARE SUPPLEMEN PHI MEDEX BRONZ E December 19, 2013 [id number] Edgar ARAMBULAN PATIENT MEDICARE (WNR) MEDICARE (M) PART A Oct 19, 2004 PART A [id number] 90A Edgar ARAMBULA [place] PAT[place]IC[place] ([place]) MEDICARE (M) PART B Oct 19, 2004 PART B [id number] [phone] Edgar ARAMBULA [place] PAT[place] MEDICARE ([place]) MEDICARE (M) PART A Oct 19, 2004 PART A [id number] Edgar ARAMBULA [place] PAT[place] MEDICARE ([place]) MEDICARE (M) PART B Oct 19, 2004 PART B [id number] Edgar ARAMBULA [place] PAT[place] MEDICARE ([place]) MEDICARE (M) PART A Oct 19, 2004 PART A [id number] 90A Edgar ARAMBULA [place] PAT[place] MEDICARE ([place]NR) MEDICARE () PART B Oct 19, 2004 PART B [id number] 90A Edgar ARAMBULA [place] PAT[place] MEDICARE ([place]NR) MEDICARE () PART A Oct 19, 2004 PART A [id number] 90A Edgar ARAMBULA [place] PAT[place] MEDICARE (WNR) MEDICARE () PART B Oct 19, 2004 PART B [id number] 90A Edgar ARAMBULA [place] PAT[place] MEDICARE ([place]NR) MEDICARE () PART A Oct 19, 2004 PART A [id number] [phone] Edgar AR[place]BUL[place] PATIENT MEDICARE (WNR) MEDICARE () PART B Oct 19, 2004 PART B [id number] Edgar ARAMBULAN PATIENT Selected Encounter This section includes the information on record at [place] for the Encounter. Date/Time Encounter Type Encounter Description Reason Provider Source Jun 28, 2024 08:21 AM QNHP OL DIG ASSMT&MGMT 5-10 CLINICAL PHARMACY ICD-10-CM J44.9 Chronic obstructive pulmonary disease, unspecified CRYSTAL HERNANDEZ Encounter Template Text not used by [place] Assessments - Encounter Diagnoses This section includes the primary and secondary diagnoses documented for the Encounter. Date/Time Primary/Secondary Diagnosis Diagnosis Name Provider Source Jun 28, 2024 08:24 AM PRIMARY Chronic obstructive pulmonary disease, unspecified CRYSTAL HERNANDEZ Plan of Treatment: Future Appointments (+ 6 months) and Future Tests (+/- 45 days) The Plan of Treatment section includes future care activities for the patient from all [place] [facility]. This section includes future appointments and future orders which are active, pending or scheduled. Future Appointments This section includes appointments that were scheduled to occur 6 months from the date of the Encounter, up to a maximum of 20 appointments. The data comes from all [facility]. Appointment Date/Time Appointment Type Appointme nt Facility Name Jul 05, 2024 09:00 AM AMBULATORY - REHAB MEDICIN E [facility] Jul 30, 2024 09:30 AM [facility] Aug 05, 2024 09:45 AM [facility] Sep 06, 2024 11:00 AM [facility] Sep 26, 2024 12:30 PM [facility] Oct 08, 2024 09:30 AM [facility] Oct 21, 2024 09:30 AM AMBULATORY - MEDICINE [facility] Active, [...] 08:08 AM Consult Order COMMUNITY CARE-PULMONARY Cons Rural Sociologist's Dylan OLSON Social History: Smoking Status (Most current) and Tobacco Use (All prior to encounter date) This section includes the most current, and the historical, smoking and tobacco- related health factors from the [place] facility where the Encounter took place. Current Smoking Status This section includes the most current smoking, or tobacco-related health factor, from the [place] facility where the Encounter took place. Date/Time Current Smoking Status Comment Facil ity December 25, 2023 09:00 AM VA-TOBACCO USER EVERY DAY [facility] Tobacco Use History This section includes a history of the smoking, or tobacco-related health factors, that were collected on or before the date of the Encounter. The data comes from the [place] facility where the Encounter took place. Date/Time Smoking Status/Tobacco Use Comment F acility December 25, 2023 09:00 AM VA-TOBACCO USE ADVICE [facility] December 25, 2023 09:00 AM VA-TOBACCO USE CUSTOMER ACCOUNT TECHNICIAN NO [facility] December 25, 2023 09:00 AM VA-TOBACCO USE MED NO [facility] December 25, 2023 09:00 AM VA-TOBACCO USE WI 30 MIN OF WAKE UP [facility] December 25, 2023 09:00 AM VA-TOBACCO USER EVERY DAY [facility] Advance Directives: All historical and current Section Date Range: From patient's date of to the date document was created. This section includes ALL of a patient's completed or amended [place] Advance and Rescinded Directives. The entries below indicate that a directive exists for the patient, but an actual copy is not included with this document. The data comes from all [place] facilities. Date Advance Directives Provider Source Apr 10, 2023 ADVANCE DIRECTIVE [place] [facility] Apr 19, 2007 [facility] Encounter Notes: All associated encounter notes This section contains the clinical notes associated to the Encounter. Date/Time Encounter Note(s) Provider Source Jun 28, 2024 08:21 AM MEDICATION MGT CON SULT: LOCAL TITLE: CONSULT REPORT/NON FORMULARY PADR STANDARD TITLE: MEDICATION MGT CONSULT DATE OF NOTE: JUN 28, 2024@08:21 ENTRY DATE: JUN 28, 2024@08:21:50 AUTHOR: CRYSTAL HERNANDEZ COSIGNER: URGENCY: STATUS: COMPLETED The medical record has been reviewed with regard to this restricted drug request. This prior authorization drug request originated with a [facility] provider. Medication requested: [id number] 30D INH Medication indication: COPD Medical history relevant to this request: Pt has utilized albuterol. The request does not meet criteria - The preferred alternative therapeutic option(s) have not been exhausted Please utilize formulary agent OLODATEROL/ TIOTROPIUM INHL,ORAL /es/ Crystal Hernandez, PharmD Clinical Pharmacy Practitioner Signed: 06/28/2024 08:24 CRYSTAL HERNANDEZ
--- OUTSIDE RECORDS SUMMARY | 2024-08-16 09:37 | XMS_ITS | Encounter Summary ---
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 LIFE & CASUALTY MEDICARE SUPPLEMEN PHI MEDIC ARE SUPPL EMENT Jul 21, 2007 NONE [id number] [phone] Edgar ARAMBULA PATIENT [place]BS [place] MED[place]ARE SUPPLEMEN PHI MEDEX BRONZ E December 19, 2013 [id number] [phone] GUSTAVO ARAMBULA SR PATIENT [place] OF [place] ([place]ARD) MEDICARE SUPPLEMEN PHI MEDEX BRONZ E December 19, 2013 [id number] Edgar ARAMBULA [place] PAT[place]IC[place] ([place]) MEDICARE () PART A Oct 19, 2004 PART A [id number] 90A FILEMONEEdgar [place] PAT[place] MEDICARE ([place]NR) MEDICARE () PART B Oct 19, 2004 PART B [id number] 90A Edgar ARAMBULA [place] PAT[place] MEDICARE ([place]) MEDICARE () PART A Oct 19, 2004 PART A [id number] [id number] SEVABIEEdgar [place] PAT[place] MEDICARE ([place]) MEDICARE () PART B Oct 19, 2004 PART B [id number] [id number] Edgar ARAMBULA [place] PAT[place] MEDICARE ([place]) MEDICARE () PART A Oct 19, 2004 PART A [id number] [id number] SEVIGNEEdgar [place] PAT[place] MEDICARE ([place]) MEDICARE () PART B Oct 19, 2004 PART B [id number] 90A SEVABIEEdgar [place] PAT[place] MEDIC[place] ([place]) MEDICARE () PART A Oct 19, 2004 PART A [id number] 90A Edgar ARAMBULA [place] PAT[place] MEDICARE ([place]) MEDICARE () PART B Oct 19, 2004 PART B [id number] 90A [phone] SEVABIEEdgar [place] PAT[place] MEDICARE ([place]) MEDICARE () PART A Oct 19, 2004 PART A [id number] Edgar ARAMBULA [place] PAT[place] MEDIC[place] ([place]) MEDICARE () PART B Oct 19, 2004 PART B [id number] SEVABIEEdgar [place] PATIENT Selected Encounter This section includes the information [facility] record [facility] for [facility]counter. Date/Time Encounter Type Encounter Description Reason Provider Source Jun 21, 2024 09:00 AM EXTENDED VISUAL FIELD XM OPTOMETRY ICD-10-CM H40.1411 Capslr glaucoma w/pseudxf lens, right eye, mild stage PATIENCE STOVALL IHRichy Encounter Template Text not used by [facility] Assessments - Encounter Diagnoses This section includes the primary and secondary diagnoses documented for the Encounter. Date/Time Primary/Secondary Diagnosis Diagnosis Name Provider Source Jun 21, 2024 01:59 PM PRIMARY Capslr glaucoma w/pseudxf lens, right eye, mild stage OSHINSKIEPATIENCE J [facility] Jun 21, 2024 01:59 PM SECONDARY Capslr glaucoma w/pseudxf lens, left eye, moderate stage OSHINSKIEPATIENCE FAUSTO J [facility] Plan of Treatment: Future Appointments (+ 6 months) and Future Tests (+/- 45 days) The Plan of Treatment section includes future care activities for the patient from all [place] [facility] This section includes future appointments and future orders which are active, pending or scheduled. Future Appointments This section includes appointments that were scheduled to occur 6 months from the date of the Encounter, up to a maximum of 20 appointments. The data comes from all [place] treatment [facility]. Appointment Date/Time Appointment Type Appointme nt Facility Name Jun 26, 2024 08:00 AM [place] [facility] [place] [facility] Jul 05, 2024 09:00 AM [facility] Jul 30, 2024 09:30 AM [facility] [place] [facility] Aug 05, 2024 09:45 AM AM[place]ULATORY [place] [facility] [facility] Sep 06, 2024 11:00 AM AM[place]ULATORY [place] [facility] [facility] Sep 26, 2024 12:30 PM AMBULATORY - MEDICINE [facility] Oct 08, 2024 09:30 AM [facility] [place] [facility] Oct 21, 2024 09:30 AM [facility] Active, Pending, and Scheduled Orders [...] The data comes from all [place] treatment [facility]. Test Date/Time Test Type Test Details Facility Name May 15, 2024 08:08 AM Consult Order [facility] CARE-PULMONARY Cons Mine Boss's Dylan FALKNER Social History: Smoking Status (Most current) and [...] place. Date/Time Current Smoking Status Comment [facility] December 25, 2023 09:05 AM VA-TOBACCO NEVER USED [place] [facility] [place] [facility] Tobacco Use History This section includes a history of the smoking, or tobacco-related health factors, that were collected on or before the date of the Encounter. The data comes from the [place] facility where the Encounter took place. Date/Time Smoking Status/Tobac co Use Comment Facility Dec 13, 2022 03:00 PM VA-TOBACCO DOESNT USE WI 30 MIN WAKEUP [facility] [place] [facility] Dec 13, 2022 03:00 PM VA-TOBACCO USE 30 YEARS OR MORE [facility] [place] [facility] Dec 13, 2022 03:00 PM VA-TOBACCO USE ADVICE [facility] [place] [facility] Dec 13, 2022 03:00 PM VA-TOBACCO USE ROBOTICS MECHANIC NO [facility] [place] [facility] Dec 13, 2022 03:00 PM VA-TOBACCO USE MED NO [facility] [place] [facility] Dec 13, 2022 03:00 PM VA-TOBACCO USER EVERY DAY [facility] [place] [facility] Nov 17, 2021 10:00 AM VA-TOBACCO USE 30 YEARS OR MORE [facility] [place] [facility] Nov 17, 2021 10:00 AM VA-TOBACCO USE ADVICE [facility] [place] [facility] Nov 17, 2021 10:00 AM VA-TOBACCO USE ROBOTICS MECHANIC NO [facility] [place] [facility] Nov 17, 2021 10:00 AM VA-TOBACCO USE MED NO [facility] [place] [facility] Nov 17, 2021 10:00 AM VA-TOBACCO USE WI 30 MIN OF WAKEUP [facility] [place] [facility] Nov 17, 2021 10:00 AM VA-TOBACCO USER EVERY DAY [facility] Oct 14, 2013 12:55 PM V1-PT NOT INTERESTED IN QUIT TOBACCO USE [facility] May 07, 2013 05:04 PM CURRENT SMOKER trying to stop [facility] May 07, 2013 05:04 PM V1-PT DECLINES REF TO TOBACCO CESS PRGM [facility] May 07, 2013 05:04 PM V1-PT DECLINES TOBACCO CESSATION MEDS [facility] May 07, 2013 05:04 PM V1-PT READY TO QUIT TOBACCO USE [facility] Dec 03, 2012 08:23 AM V1-PT DECLINES REF TO TOBACCO CESS PRGM [facility] Dec 03, 2012 08:23 AM V1-PT DECLINES TOBACCO CESSATION MEDS [facility] Dec 03, 2012 08:23 AM V1-PT THINKING ABOUT QUIT TOBACCO USE [facility] Jun 05, 2012 08:45 AM CURRENT SMOKER 1/2ppd [facility] Jun 05, 2012 08:45 AM V1-PT DECLINES REF TO TOBACCO CESS PRGM [facility] Jun 05, 2012 08:45 AM V1-PT THINKING ABOUT QUIT TOBACCO USE [facility] Jun 05, 2012 08:45 AM V1-TOBACCO CESS MEDS NOT PRESCRIBED Vet wants to talk to his provider-He is nervous about taking meds to quit- but he is interested in quitting [facility] Nov 25, 2011 09:14 AM V1-PT DECLINES REF TO TOBACCO CESS PRGM [facility] Nov 25, 2011 09:14 AM V1-PT DECLINES TOBACCO CESSATION MEDS [facility] Nov 25, 2011 09:14 AM V1-PT THINKING ABOUT QUIT TOBACCO USE [facility] May 06, 2011 01:02 PM CURRENT SMOKER [facility] May 06, 2011 01:02 PM V1-PT DECLINES TOBACCO CESSATION MEDS [facility] [place] [facility] May 06, 2011 01:02 PM V1-PT NOT INTERESTED IN QUIT TOBACCO USE [facility] [place] [facility] Sep 24, 2010 08:51 AM V1-PT DECLINES TOBACCO CESSATION MEDS [facility] [place] [facility] Sep 24, 2010 08:51 AM V1-PT THINKING ABOUT QUIT TOBACCO USE [facility] [place] [facility] Mar 22, 2010 07:58 AM CURRENT SMOKER 1/2 ppd [facility] [place] [facility] Feb 25, 2009 12:05 PM QUIT TOBACCO USE IN PAST YEAR [facility] [place] [facility] Aug 26, 2008 09:28 AM CURRENT SMOKER 1/2 ppd [facility] [place] [facility] Aug 26, 2008 09:28 AM V1-PT DECLINES REF TO TOBACCO CESS [facility] [place] [facility] Aug 26, 2008 09:28 AM V1-PT READY TO QUIT TOBACCO USE [facility] [place] [facility] Dec 19, 2007 10:08 AM V1-PT DECLINES REF TO TOBACCO CESS PRGM [facility] [place] [facility] Dec 19, 2007 10:08 AM V1-PT DECLINES TOBACCO CESSATION MEDS [facility] [place] [facility] Dec 19, 2007 10:08 AM V1-PT THINKING ABOUT QUIT TOBACCO USE [facility] [place] [facility] Sep 11, 2007 11:10 AM CURRENT SMOKER [facility] [place] [facility] Sep 11, 2007 11:10 AM V1-PT DECLINES REF TO TOBACCO CESS PRGM [facility] [place] [facility] Sep 11, 2007 11:10 AM V1-PT DECLINES TOBACCO CESSATION MEDS [facility] [place] [facility] Sep 11, 2007 11:10 AM V1-PT THINKING ABOUT QUIT TOBACCO USE [facility] [place] [facility] Feb 13, 2007 01:46 PM V1-PT DECLINES REF TO TOBACCO CESS PRGM [place] [facility] [facility] Feb 13, 2007 01:46 PM V1-PT DECLINES TOBACCO CESSATION MEDS [facility] [place] [facility] Feb 13, 2007 01:46 PM V1-PT THINKING ABOUT QUIT TOBACCO USE [facility] Oct 02, 2006 08:28 AM QUIT TOBACCO USE IN PAST YEAR 3 months ago [facility] Aug 19, 2005 08:33 AM QUIT TOBACCO USE IN PAST YEAR nonsmoker [facility] Sep 21, 2004 09:54 AM CURRENT SMOKER [facility] Sep 07, 2004 08:07 AM CURRENT SMOKER [facility] Sep 15, 2003 11:21 AM CURRENT SMOKER smokes one pk day [facility] Jul 23, 2003 01:57 PM CURRENT SMOKER [facility] Advance Directives: All historical and current Section [...] ADVANCE DIRECTIVE ESSIE STARK [facility] Apr 19, 2007 [facility] Encounter Notes: All associated encounter notes This section contains the clinical notes associated to the Encounter. 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 GHT outside of normal limit. Potential superior nasal arcuate and inferior temporal arcuate defects OS: Good reliability with 2/12 fixation losses, 0% false positives and 0% false negative. GHT outside of normal limit. 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 - Unreliable field OD and reliable field OS - Visual field loss OS aligns with RNFL thinning observed in RNFL OCT obtained today - Pt ed about findings - Ordering Latanoprost 1gtt QHS OU - RTC 6-8wks for IOP check /reginaldo/ Barbara Stovall OD Fee Basis Expressive Art Therapist Signed: 06/21/2024 13:58 for MARILYNN CORRAL OPTOMETRY STUDENT /reginaldo/ Barbara Stovall OD Fee Basis Expressive Art Therapist Cosigned: 06/21/2024 13:58 06/21/2024 ADDENDUM STATUS: COMPLETED I reviewed the OCT and VF and agree with assessment and plan /reginaldo/ Barbara Stovall OD Fee Basis Expressive Art Therapist Signed: 06/21/2024 14:00 BARBARA STOVALL [place] [facility]
--- OUTSIDE RECORDS SUMMARY | 2024-08-16 09:37 | XMS_ITS ---
[place] MED NUTRITION IN[place] SUBSEQ [place] Encounter Summary Created on: August 16, 2024 GUSTAVO ARAMBULA : 1940 Sex: Male Author Name [facility] [place] Address [address] [place] [address] Care Team Providers Care String Studies Director Name Role Phone TRACY VILLANUEVA Primary Care [...] PHI MEDEX BRONZ E December 19, 2013 [id number] GUSTAVO ARAMBULA SR PATIENT [employer] LIFE [employer] CASUALTY MEDICARE SUPPLEMEN PHI MEDIC ARE SUPPL EMENT Jul 21, 2007 NONE [id number] [phone] Edgar ARAMBULA PATIENT [place] MED[place] SUPPLEMEN PHI MEDEX BRONZ E December 19, 2013 [id number] GUSTAVO ARAMBULA SR PATIENT [place] ([place]ARD) MEDICARE SUPPLEMEN PHI MEDEX BRONZ E December 19, 2013 [id number] Edgar ARAMBULAN PATIENT MEDICARE (WNR) MEDICARE () PART A Oct 19, 2004 PART A [id number] [id number] Edgar ARAMBULA [place] PAT[place] MEDIC[place] ([place]) MEDICARE (M) PART B Oct 19, 2004 PART B [id number] 90A Edgar ARAMBULA [place] PATIENT MEDICARE ([place]NR) MEDICARE (M) PART A Oct 19, 2004 PART A [id number] Edgar ARAMBULAN PATIENT MEDICARE (WNR) MEDICARE () PART B Oct 19, 2004 PART B [id number] Edgar ARAMBULAN PATIENT MEDICARE (WNR) MEDICARE () PART A Oct 19, 2004 PART A [id number] 90A Edgar ARAMBULAN PATIENT MEDICARE (WNR) MEDICARE () PART B Oct 19, 2004 PART B [id number] [id number] Edgar ARAMBULAN PATIENT MEDICARE (WNR) MEDICARE () PART A Oct 19, 2004 PART A [id number] [phone] Edgar ARAMBULA PATIENT MEDICARE (WNR) MEDICARE () PART B Oct 19, 2004 PART B [id number] [id number] Edgar ARAMBULAN PATIENT MEDICARE (WNR) MEDICARE () PART A Oct 19, 2004 PART A [id number] [phone] Edgar ARAMBULA PATIENT MEDICARE (WNR) MEDICARE () PART B Oct 19, 2004 PART B [id number] Edgar ARAMBULA PATIENT Selected Encounter This section includes the information on record at [place] for the Encounter. Date/Time Encounter Type Encounter Description Reason Provider Source Jun 19, 2024 11:00 AM MED NUTRITION INDIV SUBSEQ NUTRITION/DIETETIC S-INDIVIDUAL ICD-10-CM R63.4 Abnormal weight loss CHIVO ARAGON IHRichy Encounter Template Text not used by [place] Assessments - Encounter Diagnoses This section includes the primary and secondary diagnoses documented for the Encounter. Date/Time Primary/Secondary Diagnosis Diagnosis Name Provider Source Jun 23, 2024 06:25 PM PRIMARY Abnormal weight loss CHIVO ARAGON [place] Jun 23, 2024 06:25 PM SECONDARY Body mass index [BMI] 22.0-22.9, adult CHIVO ARAGON [place] Jun 23, 2024 06:25 PM SECONDARY Dietary counseling and surveillance CHIVO ARAGON Ángela [place] Jun 23, 2024 06:25 PM SECONDARY Type 2 diabetes mellitus without complications CHIVO ARAGON Gabriela Motta [place] Plan of Treatment: Future Appointments (+ 6 months) and Future Tests (+/- 45 days) The Plan of Treatment section includes future care activities for the patient [facility] [place] [facility]. This section includes future appointments and future orders which are active, pending or scheduled. Future Appointments This section includes appointments that were scheduled to occur 6 months from the date of the Encounter, up to a maximum of 20 appointments. The data comes from all [facility] facilities. Appointment Date/Time Appointment Type Appointme nt Facility Name Jun 21, 2024 09:00 AM AMBULATORY [place]ICINE [place] [facility] [place] [facility] Jun 21, 2024 09:15 AM AM[place]ULATORY [place]ICINE [place] [facility] [place] [facility] Jun 21, 2024 09:30 AM AM[place]UL[place]ORY [place]ICINE [place] [facility] [place] [facility] Jun 26, 2024 08:00 AM AMBULATORY - [place]ICINE [place] [facility] [place] [facility] Jul 05, 2024 09:00 AM AMBULATORY - REHAB MEDICIN E [place] [facility] [place] [facility] Jul 30, 2024 09:30 AM AMBULATORY - PS[place]CHIATRY [place] [facility] [place] [facility] Aug 05, 2024 09:45 AM AMBULATORY - MEDICINE [place] [facility] [place] [facility] Sep 06, 2024 11:00 AM AMBULATORY - MEDICINE [place] [facility] [place] [facility] Sep 26, 2024 12:30 PM AMBULATORY - MEDICINE [facility] [place] Oct 08, 2024 09:30 AM AMBULATORY - PS[place]CHIATRY [place] [facility] [place] [facility] Oct 21, 2024 09:30 AM [facility] Active, Pending, and Scheduled Orders This section [...] 08:08 AM Consult Order COMMUNITY CARE-PULMONARY Cons Boy'S Adviser's Choice [place] Social History: Smoking Status (Most current) and [...] 2023 09:00 AM VA-TOBACCO USER EVERY DAY [place] Tobacco Use History This section includes a history of the smoking, or tobacco-related health factors, that were collected on or before the date of the Encounter. The data comes from the [place] facility where the Encounter took place. Date/Time Smoking Status/Tobacco Use Comment F acility December 25, 2023 09:00 AM [place]-TOBACCO USE ADVICE [place] December 25, 2023 09:00 AM VA-TOBACCO USE DRUM SANDER NO [place] December 25, 2023 09:00 AM VA-TOBACCO USE MED NO [place] December 25, 2023 09:00 AM VA-TOBACCO USE WI 30 MIN OF WAKE UP [place] December 25, 2023 09:00 AM VA-TOBACCO USER EVERY DAY [place] Advance Directives: All historical and current Section [...] Apr 10, 2023 ADVANCE DIRECTIVE ESSIE STARK [place] CNTR[facility]ri[facility] W RADHA VASQUEZ [facility] Apr 19, 2007 ADVANCE DIRECTIVE VICTORIA JOHNSON [facility] Encounter Notes: All associated encounter notes This section contains the clinical notes associated to the Encounter. Date/Time Encounter Note(s) Provider Source Jun 19, 2024 11:00 AM NUTRITION DIETETIC S NOTE: LOCAL TITLE: NUTRITION PROGRESS NOTE STANDARD TITLE: NUTRITION DIETETICS NOTE DATE OF NOTE: JUN 19, 2024@11:00 ENTRY DATE: JUN 23, 2024@17:59:10 AUTHOR: JESSE ARAGONIGNER: URGENCY: STATUS: COMPLETED NUTRITION ASSESSMENT Reason for Nutrition referral: Primary Diagnosis: Abnormal Weight Loss (R63.4) Secondary Diagnosis: Dietary Surveillance and Counseling (Z71.3) Additional Secondary Diagnosis: Type II DM without complication (E11.9) Date of Nutrition Visit: May Visit #: 2 Time Spent with Patient: 40 minutes Patient identified using the following two forms of ID: Date of , Patient Full Name NUTRITION ASSESSMENT: Client History Anthropometric Measurements: ==== Ht:60.3 in [153.2 cm] (05/14/2024 11:39) Wt:135.4 lb [61.42 kg] (06/19/2024 10:58) Weight History: Measurement DT WEIGHT LB(KG)[BMI] 06/19/2024 10:58 135.4(61.42)[26] 05/14/2024 11:39 130(58.97)[25] 05/01/2024 11:03 128.1(58.11)[23] 03/11/2024 08:59 132.6(60.15)[26] 02/13/2024 11:48 131(59.42)[25] 12/25/2023 09:08 138(62.60)[27] BMI: 26.2 IBW: 109 lb Biochemical Data/Medical Tests: ======= [X] No new labs available to assess BP: 156/74 (05/14/2024 11:39) Nutrition Focused Physical Findings: Appetite: Good Other issues/concerns: None Nutrition-Focused Physical Exam ======= A selection MUST be made in The Nutrition-Focused Physical Exam Summary section No significant physical signs of nutrient excesses or deficits Nutrition-Focused Physical Exam Summary: Based on the ASPEN/AND Malnutrition Diagnosis Guide, it was determined that the [place] DOES NOT have malnutrition. Nutrition History: Food/Nutrition Related History: Met with and who is happy with his recent weight gain.He did not receive ensure supplement, but has been purchasing it on his own. He continues to eat 2 meals per day. Reports early satiety. Smoke 8 cigarettes per day and is working on quitting. 24 hour recall: L: roast beef, potatoes, milk D: chicken squash, green beans, milk, snacks: ensure max protein x 2 In the past 3 months, did you ever run out of food and you were not able to access more food or have the money to buy more food? No Physical Activity: limited NUTRITION DIAGNOSIS = Nutrition Problem: ACTIVE Involuntary weight loss related to poor oral intake as evidenced by 18% weight loss, . INTERVENTION Update on Interventions Discussed at Previous Visit: NUTRITION SUPPLEMENT THERAPY Commercial beverage medical food supplement therapy Food and/or Nutrient Delivery: Recommend Oral Nutritional Supplement as follows: Product: Glucersidney Carranza Dosage: 1 bottle per day Provides: 220 kcal / 10 gm of protein NUTRITION COUNSELING Nutrition counseling [...] Nutrition educational materials provided during this encounter: None Education Narrative: Reviewed supplement use and healthy meal planning. Barriers to Education: None Comprehension: Good Motivation: Good COORDINATION OF NUTRITION CARE Follow-up with: PCP MONITORING Patient SMART goals from previous visit: Reminder You MUST provide an update on each goal from the [place]'s previous visit using the Nutrition Care Process (NCP) terminology. Some progress towards goal FOLLOW-UP PLAN 1. Follow-up visit: Aug 2. Monitor progress towards achievement of patient's SMART goals 3. Assess comprehension and motivation based on dietary changes made 4. Monitor progress toward achievement of Clinical Outcome Goals: Weight, Labs, Oral Intake CLINICAL OUTCOME GOALS: Indicator: Weight Criteria: Unintentional weight loss Goal: Stable weight by follow-up Progress: TBD at follow-up WHOLE HEALTH WHOLE HEALTH EDUCATION Whole Health Education was provided. /reginaldo/ JESSE ARAGON STAFF DIETITIAN Signed: 06/23/2024 18:28 JESSE ARAGON [place] [facility] [place] [facility]
--- OUTSIDE RECORDS SUMMARY | 2024-08-16 09:37 | XMS_ITS | Encounter Summary ---
Author Name [facility] [facility] [place] [facility] [place] Address [address] [place] [address] Care Team Providers Care Inside Sales Person Name Role Phone TRACY VILLANUEVA Primary Care [...] PHI MEDEX BRONZ E December 19, 2013 [id number] [phone] GUSTAVO ARAMBULA SR PATIENT [employer] MEDICARE SUPPLEMEN HPI MEDIC ARE SUPPL EMENT Jul 21, 2007 NONE [id number] [phone] Edgar ARAMBULA [place] SUPPLEMEN PHI MEDEX BRONZ E December 19, 2013 [id number] GUSTAVO ARAMBULA SR PATIENT [place] MEDICARE SUPPLEMEN PHI MEDEX BRONZ E December 19, 2013 [id number] [phone] Edgar ARAMBULA PATIENT MEDICARE (WNR) MEDICARE () PART A Oct 19, 2004 PART A [id number] [phone] [id number] Edgar ARAMBULAN PATIENT MEDICARE (WNR) MEDICARE (M) PART B Oct 19, 2004 PART B [id number] Edgar ARAMBULA [place] PATIENT MEDICARE (WNR) MEDICARE () PART A Oct 19, 2004 PART A [id number] Edgar ARAMBULAN PATIENT MEDICARE (WNR) MEDICARE () PART B Oct 19, 2004 PART B [id number] [id number] Edgar ARAMBULAN PATIENT MEDICARE (WNR) MEDICARE () PART B Oct 19, 2004 PART B [id number] Edgar ARAMBULA [place] PATIENT MEDICARE (WNR) MEDICARE () PART A Oct 19, 2004 PART A [id number] [id number] Edgar ARAMBULAN PATIENT MEDICARE (WNR) MEDICARE () PART A Oct 19, 2004 PART A [id number] Edgar ARAMBULA PATIENT MEDICARE (WNR) MEDICARE () PART B Oct 19, 2004 PART B [id number] Edgar ARAMBULAN PATIENT MEDICARE (WNR) MEDICARE () PART A Oct 19, 2004 PART A [id number] [phone] Edgar ARAMBULAN PATIENT MEDICARE (WNR) MEDICARE () PART B Oct 19, 2004 PART B [id number] Edgar ARAMBULAN PATIENT Selected Encounter This section includes the information on [place] at [place] for the Encounter. Date/Time Encounter Type Encounter Description Reason Pro vider Source Apr 16, 2024 12:00 AM Outpatient Encounter EVENT (HISTORICAL) [...] MEDICINE [facility] [place] [facility] Apr 30, 2024 08:30 AM AMBULATORY - PS[facility]IATRY [facility] [place] [facility] May 01, 2024 11:00 AM AMBULATORY - NONE [facility] [place] [facility] May 14, 2024 11:30 AM AMBULATORY - MEDICINE [facility] May 31, 2024 11:00 AM AMBULATORY - REHAB MEDICIN E [facility] [place] [facility] May 31, 2024 12:00 PM AMBULATORY - MEDICINE [facility] [place] [facility] Jun 10, 2024 10:00 AM AMBULATORY - MEDICINE [facility] Jun 11, 2024 09:30 AM AMBULATORY - PSYCHIATRY [facility] [place] [facility] Jun 13, 2024 10:00 AM AMBULATORY - MEDICINE [facility] [place] [facility] Jun 19, 2024 11:00 AM AMBULATORY - NONE [facility] [place] [facility] Jun 21, 2024 09:00 AM AMBULATORY - MEDICINE [facility] [place] [facility] Jun 21, 2024 09:15 AM AMBULATORY - MEDICINE [facility] [place] [facility] Jun 21, 2024 09:30 AM AMBULATORY - MEDICINE [facility] [place] [facility] Jun 26, 2024 08:00 AM AMBULATORY - MEDICINE [facility] [place] [facility] Jul 05, 2024 09:00 AM AMBULATORY - REHAB MEDICIN E [facility] [place] [facility] Jul 30, 2024 09:30 AM AMBULATORY - PSYCHIATRY [facility] [place] [facility] Aug 05, 2024 09:45 AM AMBULATORY - MEDICINE [facility] [place] [facility] Sep 06, 2024 11:00 AM AMBULATORY - MEDICINE [facility] [place] [facility] Sep 26, 2024 12:30 PM AMBULATORY - MEDICINE [facility] Oct 08, 2024 09:30 AM AMBULATORY - PSYCHIATRY [facility] Active, Pending, and Scheduled Orders This section [...] 08:08 AM Consult Order COMM[facility]ITY CARE-PULMONARY Cons Nurse Ldr's Choice [facility] Lab Results: +/- 30 days of the [...] Range Comment Apr 25, 2024 07:51 AM [facility] HEMOGLOBIN A1C PANEL Specimen Type: BLOOD Comment: [...] Feb 13, 2024 02:36 PM Reporting Lab: [address] [address] Performing Lab: [address] [address] HEMOGLOBIN A1C 6.8 H 4.0-5.6 Apr 25, 2024 07:51 AM [facility] MICROALBUMIN CREATININE RATIO PANEL Spe cimen Type: URINE No comment entered. Ordering Provider: TRACY VILLANUEVA Report Released Date/Time: Feb 13, 2024 02:36 PM Reporting Lab: [address] [address] Performing Lab: [address] [place] [address] MICROALBUMIN/C REATININE RATIO 16.0 mg/g 0-29.9 MICROALBUMIN,Q UANTITATIVE 2.3 mg/dL RR UNAVAIL CREATININE URINE 143.92 mg/dL Apr 25, 2024 07:51 AM [facility] BASIC METABOLIC PANEL (non-fasting) Spe cimen Type: SERUM No comment entered. Ordering Provider: TRACY VILLANUEVA Report Released Date/Time: Feb 13, 2024 02:36 PM Reporting Lab: [address] [address] Performing Lab: [address] [address] UREA NITROGEN 15 mg/dL 7-25 GLUCOSE 173 mg/dL H 65-100 SODIUM 133 mmol/L L 135-145 POTASSIUM 4.2 mmol/L 3.5-5.0 CHLORIDE 100 mmol/L 100-110 CO2 22 meq/L 20-30 CREATININE, Serum 0.74 mg/dL 0.50-1.40 eGFR(CKD-EPI 2020) 89 mL/min >60 Apr 15, 2024 08:39 AM [facility] HEMOGLOBIN A1C PANEL Specimen Type: BLOOD Comment: [...] Apr 09, 2024 09:19 AM Reporting Lab: [address] [address] Performing Lab: [address] [address] HEMOGLOBIN A1C 6.3 H 4.0-5.6 Apr 15, 2024 08:39 AM [facility] LIPID PANEL FASTING Specimen Type: SERUM No comment entered. Ordering Provider: TRACY VILLANUEVA Report Released Date/Time: Apr 09, 2024 09:19 AM Reporting Lab: [address] [address] Performing Lab: [address] [address] CHOLESTEROL 137 mg/dL TRIGLYCERIDE 63 mg/dL 0-150 LDL calculated 63 mg/dL 0-129 CHOL/HDL 2.2 HDL CHOLESTEROL 61 mg/dL H 40-60 Apr 15, 2024 08:39 AM [facility] MICROALBUMIN CREATININE RATIO PANEL Spe cimen Type: URINE No comment entered. Ordering Provider: TRACY VILLANUEVA Report Released Date/Time: Apr 09, 2024 09:19 AM Reporting Lab: [address] [address] Performing Lab: [address] [address] MICROALBUMIN/C REATININE RATIO 83.0 mg/g H 0-29.9 MICROALBUMIN,Q UANTITATIVE 16.8 mg/dL RR UNAVAIL CREATININE URINE 202.40 mg/dL Apr 15, 2024 08:39 AM [facility] LIVER FUNCTION Specimen Type: SERUM No comment entered. Ordering Provider: TRACY VILLANUEVA Report Released Date/Time: Apr 09, 2024 09:19 AM Reporting Lab: [address] [address] Performing Lab: [address] [address] PROTEIN,TOTAL 7.3 g/dL 6.0-8.3 ALBUMIN 4.5 g/dL 3.5-5.0 ALKALINE PHOSPHATASE 62 U/L 40-150 AST 35 U/L H 5-34 ALT 27 U/L BILIRUBIN, TOTAL 2.5 mg/dL H 0.2-1.2 BILIRUBIN, DIRECT 0.7 mg/dL H 0-0.5 Apr 15, 2024 08:39 AM [facility] BASIC METABOLIC PANEL (fasting) Specime n Type: SERUM No comment entered. Ordering Provider: TRACY VILLANUEVA Report Released Date/Time: Apr 09, 2024 09:19 AM Reporting Lab: [address] [address] Performing Lab: [address] [place] [address] UREA NITROGEN 9 mg/dL 7-25 GLUCOSE 159 mg/dL H 65-100 SODIUM 116 mmol/L LL 135-145 POTASSIUM 3.4 mmol/L L 3.5-5.0 CHLORIDE 81 mmol/L L 100-110 CO2 23 meq/L 20-30 CREATININE, Serum 0.69 mg/dL 0.50-1.40 eGFR(CKD-EPI 2020) >90 mL/min >60 Apr 15, 2024 08:39 AM [facility] VITAMIN D (25-OH) Specimen Type: SERUM No comment entered. Ordering Provider: TRACY VILLANUEVA Report Released Date/Time: Apr 09, 2024 09:19 AM Reporting Lab: [address] [address] Performing Lab: [address] [address] VITAMIN D (25-OH) 49 ng/mL 20-50 Apr 15, 2024 08:39 AM [facility] CBC Specimen Type: BLOOD Comment: MCHC >36, SPECIMEN 1+ ICTERIC, QNS FOR PLASMA REPLACEMENT INTERPRET RESULTS WITH CAUTION, SUGGEST PROPER REDRAW SHORT DRAW Ordering Provider: TRACY VILLANUEVA Report Released Date/Time: Apr 09, 2024 09:19 AM Reporting Lab: [address] [address] Performing Lab: [address] [address] WBC 8.70 10*3/uL 4.50-11.00 RBC 4.75 10*6/uL [...] took place. Date/Time Current Smoking Status Comment [facility] ity December 25, 2023 09:05 AM VA-TOBACCO NEVER USED [place] [facility] [place] [facility] Tobacco Use History This section includes a history of the smoking, or tobacco-related health factors, that were collected on or before the date of the Encounter. The data comes from the [place] facility where the Encounter took place. Date/Time Smoking Status/Tobac co Use Comment Facility Dec 13, 2022 03:00 PM VA-TOBACCO DOESNT USE WI 30 MIN WAKEUP [facility] [place] [facility] Dec 13, 2022 03:00 PM VA-TOBACCO USE 30 YEARS OR MORE [facility] [place] [facility] Dec 13, 2022 03:00 PM VA-TOBACCO USE ADVICE [facility] [place] 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 Dec 13, 2022 03:00 PM VA-TOBACCO USE MED NO [facility] [place] [facility] Dec 13, 2022 03:00 PM VA-TOBACCO USER EVERY DAY [facility] [place] [facility] Nov 17, 2021 10:00 AM VA-TOBACCO USE 30 YEARS OR MORE [facility] [place] [facility] Nov 17, 2021 10:00 AM VA-TOBACCO USE ADVICE [facility] [place] [facility] Nov 17, 2021 10:00 AM VA-TOBACCO USE WATCH [employer] GR[employer]ER NO [facility] [place] [facility] Nov 17, 2021 10:00 AM VA-TOBACCO USE MED NO [facility] [place] [facility] Nov 17, 2021 10:00 AM VA-TOBACCO USE WI 30 MIN OF WAKEUP [facility] [place] [facility] Nov 17, 2021 10:00 AM VA-TOBACCO USER EVERY DAY [facility] [place] [facility] Oct 14, 2013 12:55 PM V1-PT NOT INTERESTED IN QUIT TOBACCO USE [facility] [place] [facility] May 07, 2013 05:04 PM CURRENT SMOKER trying to stop [facility] May 07, 2013 05:04 PM V1-PT DECLINES REF [facility] May 07, 2013 05:04 PM V1-PT DECLINES TOBACCO CESSATION MEDS [facility] May 07, 2013 05:04 PM V1-PT READY TO QUIT TOBACCO USE [facility] Dec 03, 2012 08:23 AM V1-PT DECLINES REF TO TOBACCO CESS PRGM [facility] Dec 03, 2012 08:23 AM V1-PT DECLINES TOBACCO CESSATION [facility] Dec 03, 2012 08:23 AM V1-PT THINKING ABOUT QUIT TOBACCO USE [facility] Jun 05, 2012 08:45 AM CURRENT SMOKER 1/2ppd [facility] Jun 05, 2012 08:45 AM V1-PT DECLINES REF TO TOBACCO CESS [facility] Jun 05, 2012 08:45 AM V1-PT THINKING ABOUT QUIT TOBACCO USE [facility] Jun 05, 2012 08:45 AM V1-TOBACCO CESS MEDS NOT PRESCRIBED Vet wants to talk to his provider-He is nervous about taking meds to quit- but he is interested in quitting [facility] Nov 25, 2011 09:14 AM V1-PT DECLINES REF TO TOBACCO CESS [facility] Nov 25, 2011 09:14 AM V1-PT DECLINES TOBACCO CESSATION MEDS [facility] Nov 25, 2011 09:14 AM V1-PT THINKING ABOUT QUIT [facility]ACCO [facility] May 06, 2011 01:02 PM CURRENT SMOKER [facility] May 06, 2011 01:02 PM V1-PT DECLINES TOBACCO CESSATION MEDS [facility] May 06, 2011 01:02 PM V1-PT NOT INTERESTED IN QUIT TOBACCO USE [facility] Sep 24, 2010 08:51 AM V1-PT DECLINES TOBACCO CESSATION MEDS [facility] [place] [facility] Sep 24, 2010 08:51 AM V1-PT THINKING ABOUT QUIT TOBACCO USE [facility] [place] [facility] Mar 22, 2010 07:58 AM CURRENT SMOKER 1/2 ppd [facility] [place] [facility] Feb 25, 2009 12:05 PM QUIT TOBACCO USE IN PAST YEAR [facility] [place] [facility] Aug 26, 2008 09:28 AM CURRENT SMOKER 1/2 ppd [facility] [place] [facility] Aug 26, 2008 09:28 AM V1-PT DECLINES REF TO TOBACCO CESS PRGM [facility] [place] [facility] Aug 26, 2008 09:28 AM V1-PT READY TO QUIT TOBACCO USE [facility] [place] [facility] Dec 19, 2007 10:08 AM V1-PT DECLINES REF TO TOBACCO CESS [place] [facility] [place] [facility] Dec 19, 2007 10:08 AM V1-PT DECLINES TOBACCO CESSATION MEDS [facility] [place] [facility] Dec 19, 2007 10:08 AM V1-PT THINKING ABOUT QUIT TOBACCO USE [facility] [place] [facility] Sep 11, 2007 11:10 AM CURRENT SMOKER [facility] [place] [facility] Sep 11, 2007 11:10 AM V1-PT DECLINES REF TO TOBACCO CESS [place]GM [place] [facility] [place] [facility] Sep 11, 2007 11:10 AM V1-PT DECLINES TOBACCO CESSATION MEDS [facility] [place] [facility] Sep 11, 2007 11:10 AM V1-PT THINKING ABOUT QUIT TOBACCO USE [facility] [place] [facility] Feb 13, 2007 01:46 PM V1-PT DECLINES REF TO TOBACCO CESS [place] [facility] [place] [facility] Feb 13, 2007 01:46 PM V1-PT DECLINES TOBACCO CESSATION MEDS [facility] [place] [facility] Feb 13, 2007 01:46 PM V1-PT THINKING ABOUT QUIT TOBACCO USE [facility] [place] [facility] Oct 02, 2006 08:28 AM QUIT TOBACCO USE IN PAST YEAR 3 months ago [facility] [place] [facility] Aug 19, 2005 08:33 AM QUIT TOBACCO USE IN PAST YEAR nonsmoker [facility] Sep 21, 2004 09:[address] Sep 07, 2004 08:[address] Sep 15, 2003 11:21 AM CURRENT SMOKER smokes one pk day [facility] Jul 23, 2003 01:[address] [facility] Advance Directives: All historical and current [...] Apr 10, 2023 ADVANCE DIRECTIVE GEORGEESSIE DOZIER [facility] Apr 19, 2007 ADVANCE DIRECTIVE VICTORIA JOHSNON [facility] Encounter Notes: All associated encounter notes This section contains the clinical notes associated to the Encounter. Date/Time Encounter Note(s) Provider Source Apr 16, 2024 12:00 AM NONVA NOTE: LOCAL TITLE: NON-VA HOSPITALIZATIONS/ER STANDARD TITLE: NONVA NOTE DATE OF NOTE: APR 16, 2024 ENTRY DATE: JUN 25, 2024@14:10:19 AUTHOR: YOGESH BRYANT COSIGNER: URGENCY: STATUS: COMPLETED VistA Imaging - Scanned Document SCANNED DOCUMENT SIGNATURE NOT REQUIRED Electronically Filed: 06/25/2024 by: NASRA BRYANT Estate Planning Director NASRA BRYANT [facility]
--- OUTSIDE RECORDS SUMMARY | 2024-08-16 09:37 | XMS_ITS | Encounter Summary ---
Author Name [facility] [place] [facility] [place] Address [address] [place] [address] Care Team Providers Care Adjuster Name Role Phone TRACY VILLAUNEVA Primary Care Provider Unavailabl e Insurance Providers: [...] PHI MEDEX BRONZ E December 19, 2013 [id number] GUSTAVO ARAMBULA SR PATIENT [employer] MEDICARE SUPPLEMEN PHI MEDIC ARE SUPPL EMENT Jul 21, 2007 NONE [id number] Edgar ARAMBULA PATIENT BCBS IN MEDICARE SUPPLEMEN PHI MEDEX BRONZ E December 19, 2013 [id number] [phone] GUSTAVO ARAMBULA SR PATIENT [place] MEDICARE SUPPLEMEN PHI MEDEX BRONZ E December 19, 2013 [id number] Edgar ARAMBULA [place] PATIENT MEDICARE (WNR) MEDICARE (M) PART A Oct 19, 2004 PART A [id number] [phone] Edgar ARAMBULA [place] PATIENT MEDICARE ([place]NR) MEDICARE (M) PART B Oct 19, 2004 PART B [id number] Edgar ARAMBULA [place] PATIENT MEDICARE ([place]NR) MEDICARE (M) PART A Oct 19, 2004 PART A [id number] [phone] Edgar ARAMBULA [place] PATIENT MEDICARE ([place]NR) MEDICARE (M) PART B Oct 19, 2004 PART B [id number] Edgar ARAMBULA [place] PATIENT MEDICARE ([place]) MEDICARE (M) PART A Oct 19, 2004 PART A [id number] Edgar ARAMBULA [place] PAT[place] MEDICARE ([place]) MEDICARE () PART B Oct 19, 2004 PART B [id number] Edgar ARAMBULA [place] PAT[place] MEDICARE ([place]) MEDICARE () PART A Oct 19, 2004 PART A [id number] [phone] Edgar ARAMBULA [place] PATIENT MEDICARE ([place]NR) MEDICARE () PART B Oct 19, 2004 PART B [id number] FILEMONEEdgar [place] PATIENT MEDICARE ([place]) MEDICARE () PART A Oct 19, 2004 PART A [id number] Edgar ARAMBULA [place] PATIENT MEDICARE ([place]) MEDICARE (M) PART B Oct 19, 2004 PART B [id number] Edgar ARAMBULAN PATIENT Selected Encounter This section includes the information on record at [place] for the Encounter. Date/Time Encounter Type Encounter Description Reason Provider Source Jul 30, 2024 09:30 AM OFFICE O/P EST MOD 30 [facility] - IND ICD-10-CM F33.9 Major depressive disorder, recurrent, unspecified JOSEY COLINDRES Encounter Template Text not used by [place] Assessments - Encounter Diagnoses This section includes the primary and secondary diagnoses documented for the Encounter. Date/Time Primary/Secondary Diagnosis Diagnosis Name Provider Source Aug 01, 2024 04:28 PM PRIMARY Major depressive disorder, recurrent, unspecified JOSEY COLINDRES [facility] Aug 01, 2024 04:28 PM SECONDARY Other insomnia JOSEY COLINDRES [facility] Plan of Treatment: Future Appointments (+ 6 months) and Future Tests (+/- 45 days) The Plan of Treatment section includes future care activities for the patient from all [place] treatmentfacilities. This section includes future appointments and [...] 05, 2024 09:45 AM AMBULATORY - MEDICINE [facility] Sep 06, 2024 11:00 AM AMBULATORY MEDICINE [facility] Sep 26, 2024 12:30 PM AMBULATORY - MEDICINE [facility] Oct 08, 2024 09:30 AM AMBULATORY - PSYCHIATRY [facility] Oct 21, 2024 09:30 AM AMBULATORY - MEDICINE [facility] Lab Results: +/- 30 days of [...] Range Comment Aug 01, 2024 08:18 AM [place] HEMOGLOBIN A1C PANEL Specimen Type: [...] Jul 30, 2024 09:45 AM Reporting Lab: [facility] [address] [facility] [address] Performing Lab: [facility] [address] [address] HEMOGLOBIN A1C 8.1 H 4.0-5.6 Aug 01, 2024 08:18 AM [place] LIVER FUNCTION Specimen Type: SERUM No comment entered. Ordering Provider: TRACY VILLANUEVA Report Released Date/Time: Jul 30, 2024 09:45 AM Reporting Lab: [facility] [address] [facility] [address] Performing Lab: [address] [address] PROTEIN,TOTAL 7.2 g/dL 6.0-8.3 ALBUMIN 3.9 g/dL 3.5-5.0 ALKALINE PHOSPHATASE 78 U/L 40-150 AST 16 U/L 5-34 ALT 18 U/L BILIRUBIN, TOTAL 0.8 mg/dL 0.2-1.2 Aug 01, 2024 08:18 AM [place] LIPID PANEL, NON FASTING Specimen Type: SERUM No comment entered. Ordering Provider: TRACY VILLANUEVA Report Released Date/Time: Jul 30, 2024 09:45 AM Reporting Lab: [facility] [address] [facility] [address] Performing Lab: [address] [address] CHOLESTEROL 155 mg/dL TRIGLYCERIDE 78 mg/dL 0-150 LDL calculated 85 mg/dL 0-129 CHOL/HDL 2.9 HDL CHOLESTEROL 54 mg/dL 40-60 Aug 01, 2024 08:18 AM [place] BASIC METABOLIC PANEL (non-fasting) Spe cimen Type: SERUM No comment entered. Ordering Provider: TRACY VILLANUEVA Report Released Date/Time: Jul 30, 2024 09:45 AM Reporting Lab: [address] [address] Performing Lab: [address] [address] UREA NITROGEN 14 mg/dL 7-25 GLUCOSE 218 [...] took place. Date/Time Current Smoking Status Comment [facility] ity December 25, 2023 09:05 AM VA-TOBACCO NEVER USED [place] [facility] [place] [facility] Tobacco [...] 2022 03:00 PM VA-TOBACCO USE DIRECTOR OF GROUP SALES NO [facility] [place] [facility] 2021 10:00 AM VA-TOBACCO USE DIRECTOR OF GROUP SALES NO [facility] [place] [facility] Nov 17, 2021 10:00 AM VA-TOBACCO USE MED NO [facility] Nov 17, 2021 10:00 AM VA-TOBACCO USE WI 30 MIN OF WAKEUP [facility] Nov 17, 2021 10:00 AM VA-TOBACCO USER EVERY DAY [facility] Oct 14, 2013 12:55 PM V1-PT NOT INTERESTED IN QUIT TOBACCO USE [facility] May 07, 2013 05:04 PM CURRENT SMOKER trying to stop [facility] May 07, 2013 05:04 PM V1-PT DECLINES REF TO TOBACCO CESS PRGM [facility] May 07, 2013 05:04 PM V1-PT DECLINES TOBACCO CESSATION MEDS [facility] May 07, 2013 05:04 PM V1-PT READY TO QUIT TOBACCO USE [facility] Dec 03, 2012 08:23 AM V1-PT DECLINES REF TO TOBACCO CESS PRGM [facility] Dec 03, 2012 08:23 AM V1-PT DECLINES TOBACCO CESSATION MEDS [facility] Dec 03, 2012 08:23 AM V1-PT THINKING ABOUT QUIT TOBACCO USE [facility] Jun 05, 2012 08:45 AM CURRENT SMOKER 1/2ppd [facility] Jun 05, 2012 08:45 AM V1-PT DECLINES REF TO TOBACCO CESS PRGM [facility] Jun 05, 2012 08:45 AM V1-PT THINKING ABOUT QUIT TOBACCO USE [facility] Jun 05, 2012 08:45 AM V1-TOBACCO CESS MEDS NOT PRESCRIBED Vet wants to talk to his provider-He is nervous about taking meds to quit- but he is interested in quitting [facility] Nov 25, 2011 09:14 AM V1-PT DECLINES REF TO TOBACCO CESS PRGM [facility] Nov 25, 2011 09:14 AM V1-PT DECLINES TOBACCO CESSATION MEDS [facility] Nov 25, 2011 09:14 AM V1-PT THINKING [...] PAST YEAR [facility] [place] [facility] Aug 26, [...] [facility] [place] [facility] Dec 19, [...] [facility] [place] [facility] Sep 11, 2007 11:10 AM V1-PT THINKING ABOUT QUIT TOBACCO USE [facility] [place] [facility] Feb 13, 2007 01:46 PM V1-PT DECLINES REF TO TOBACCO CESS PRGM [facility] Feb 13, 2007 01:46 PM V1-PT DECLINES TOBACCO CESSATION MEDS [facility] Feb 13, 2007 01:46 PM V1-PT THINKING ABOUT QUIT TOBACCO USE [facility] Oct 02, 2006 08:28 AM QUIT TOBACCO USE IN PAST YEAR 3 months ago [facility] Aug 19, 2005 08:33 AM QUIT TOBACCO USE IN PAST YEAR nonsmoker [facility] Sep 21, 2004 09:54 AM CURRENT SMOKER [facility] Sep 07, 2004 08:07 AM CURRENT SMOKER [facility] Sep 15, 2003 11:21 AM CURRENT SMOKER smokes one pk day [facility] Jul 23, 2003 01:57 PM CURRENT SMOKER [facility] Advance Directives: All historical and [...] Apr 10, 2023 ADVANCE DIRECTIVE CARLOSESSIE STUBBS [facility] Apr 19, 2007 ADVANCE DIRECTIVE VICTORIA [facility] Encounter Notes: All associated encounter notes This section contains the clinical notes associated to the Encounter. Date/Time Encounter Note(s) Provider Source Jul 30, 2024 09:34 AM PSYCHIATRY NOTE: LOCAL TITLE: PSYCHIATRY NOTE STANDARD TITLE: PSYCHIATRY NOTE DATE OF NOTE: JUL 30, 2024@09:34 ENTRY DATE: JUL 30, 2024@09:34:20 AUTHOR: LANA COLINDRES COSIGNER: URGENCY: STATUS: COMPLETED PSYCHIATRY FOLLOW UP VISIT GUSTAVO ARAMBULA SR is a 83yo MARITAL STATUS - WHITE MALE with a history of [employer] FROM December TO Oct INTERVAL HISTORY Reports feeling well. Sleeping better 10p-7a, energy is pretty good. Keeping busy with painting, feeding the birds, visiting brother in hospital. Brother is s/p [place] and is quite ill. Vet visits him every day. No complaints. Mood is 9-10 out of 10. Visits his old house and reminisces. [place] was her big holiday. Holidays are still a little difficult. Appetite is good, weight is up to 134lbs. Smoking 10 cig per day. When he starts coughing puts on the patch. It helps with the cravings a little bit. CURRENT MEDICATIONS Active Outpatient Medications (including Supplies): ACETAMINOPHEN 500MG TAB TAKE TWO TABLETS BY MOUTH TWICE ACTIVE DAILY Indication: FOR PAIN ALBUTEROL 90MCG (CFC-F) 200D ORAL INHL INHALE 1 TO 2 PUFFS ACTIVE BY MOUTH EVERY 6 HOURS NEEDED Indication: FOR BRONCHOSPASM AMLODIPINE BESYLATE 10MG TAB TAKE ONE TABLET BY MOUTH ONCE ACTIVE DAILY FOR BLOOD PRESSURE/HEART, DO NOT TAKE WITH GRAPEFRUIT JUICE APIXABAN 5MG TAB TAKE ONE TABLET BY MOUTH EVERY 12 HOURS ACTIVE Indication: FOR PREVENTION OF BLOOD CLOTS ATORVASTATIN CALCIUM 40MG TAB TAKE ONE-HALF TABLET BY ACTIVE MOUTH ONCE DAILY FOR CHOLESTEROL CARBOXYMETHYLCELLULOSE NA 0.5% OPH SOLN INSTILL 1 DROP ACTIVE INTO EACH EYE FOUR TIMES A DAY Indication: FOR DRY EYE CITALOPRAM HYDROBROMIDE 40MG TAB TAKE ONE-HALF TABLET BY ACTIVE MOUTH ONCE DAILY FOR DEPRESSION AND ANXIETY Indication: FOR MAJOR DEPRESSIVE DISORDER DEPEND UNDERWEAR,MAXIMUM,MEN SM/MED USE 1 BRIEF ACTIVE DIRECTED TWICE DAILY FOR INCONTINENCE Indication: URINARY INCONTINENCE HYDROCORTISONE 1% OINT APPLY THIN LAYER TOPICALLY TWICE ACTIVE DAILY NEEDED Indication: FOR ATOPIC DERMATITIS LATANOPROST 0.005% OPH SOLN INSTILL 1 DROP INTO EACH EYE ACTIVE AT BEDTIME Indication: FOR INCREASED PRESSURE IN THE EYE MELATONIN 5MG CAP/TAB TAKE ONE CAPSULE/TABLET BY MOUTH AT ACTIVE BEDTIME Indication: FOR INSOMNIA METFORMIN HCL 750MG 24HR SA TAB TAKE ONE TABLET BY MOUTH ACTIVE TWICE DAILY Indication: FOR TYPE 2 DIABETES MELLITUS NUTRITION SUPL ENSURE PLUS/CONNIE LIQUID DRINK 1 CAN BY HOLD MOUTH TWICE DAILY Indication: FOR NUTRITIONAL SUPPLEMENTATION PANTOPRAZOLE NA 40MG EC TAB TAKE ONE TABLET BY MOUTH EVERY ACTIVE MORNING 30 MINUTES BEFORE BREAKFAST QUETIAPINE FUMARATE 25MG TAB TAKE ONE TABLET BY MOUTH AT ACTIVE BEDTIME Indication: SLEEP, DEPRESSION, ANXIETY SENNOSIDES 8.6MG TAB TAKE ONE TABLET BY MOUTH TWICE DAILY ACTIVE NEEDED Indication: FOR CONSTIPATION TIOTROPIUM 2.5MCG/ACTUAT 60D ORAL INHL INHALE 2 PUFFS BY ACTIVE MOUTH ONCE DAILY Indication: FOR BRONCHOSPASM PREVENTION WITH COPD TRIAMCINOLONE ACETONIDE 0.1% CREAM APPLY A THIN LAYER HOLD TOPICALLY EVERY 5 DAYS Indication: FOR ATOPIC DERMATITIS SUPPLEMENTS: ALLERGIES: GEMFIBROZIL, LISINOPRIL MEDICAL HISTORY Active [...] CT 09/25/2023 TRACY VILLANUEVA Depression (SNOMED CT [id number]) F33 12/10/2021 TRAVIS GOMES Dry Eye Syndromes * (ICD-9-CM 375.1 03/17/2009 JARQUINNAHED P OD Late effect of fracture of skull an 12/03/2008 JOVANY NAYLOR Localised, primary osteoarthritis M 03/12/2024 TRACY VILLANUEVA Prostate, 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., Ons 04/22/2008 JOVANY NAYLOR Cataract, Cortical (Senile) 366.15 05/04/2006 SOURAV JARQUINENCE P OD Open Angle Glaucoma Suspect 365.01 05/04/2006 NAHED JARQUIN P OD Mixed hyperlipidaemia E78.2 12/25/2023 TRACY VILLANUEVA Benign essential hypertension I10. 12/25/2023 TRACY VILLANUEVA POLYPS, COLON/LG BOWEL (BENIGN MAEGAN 10/31/2013 JOVANY NAYLOR Tobacco use (SNOMED CT [id number]) Z 02/20/2024 GUSTAVO MCKEON BMI: 26.2 SUBSTANCE USE: Alcohol: None MJ: None Tobacco: 10 cig per day Caffeine: 1 cup daily Opiates: denies [...] cessation - Cont melatonin 5 mg at for sleep - [facility] Sleep medicine - Cardiology - Hematology [...] Resources Only: E911 (Emergency Call Relay Center): [phone] [employer] Crisis Line - (9-926-804-TALK) press #1. OFELIA Suicide Coordinator ? [phone], Ext. [phone]; Back-up Ext. [phone] Slurry Tank Operator of the Day(AOD), Sabi GILBERT ? [phone], Ext. [phone] Introduction: Visit is being conducted by [place] [facility]. identified with 2 identifiers: [X] Full Name [X] Date of [ ] [facility] ID Card Emergency Plan: [place] confirmed and/or provided the following information in case of emergency or technology failure. [place]'s present location and address for appointment: Located at home address as in CPRS 's emergency contact name and phone number: Emergency contact as per listed in chart [place] reported that location is private and safe: Yes Informed Consent: informed of the risks and benefits of Telehealth video care. has the right to refuse video services. If refuses video visit, a nexj-md-ezeu visit will be scheduled. verbalized consent for this video visit: Yes provided consent for any other persons present for visit: Yes If yes, who and relationship to patient: Secure visit: Visit was locked for security and privacy:Yes __ _ __ AIMS Testing: AIMS (Mental Health Instrument) The patient was evaluated for symptoms of tardive dyskinesia using the AIMS. Total score for items 1-7: 0 /reginaldo/ LANA COLINDRES PSYCHIATRIST Signed: 08/01/2024 16:28 LANA COLINDRES [facility] [place] [facility]
--- OUTSIDE RECORDS SUMMARY | 2024-08-16 09:38 | XMS_ITS ---
Author Name [facility] [place] [facility] [place] Address [address] [place] [address] Care Team Providers Care Wellness Nurse Name Role Phone TRACY VILLANUEVA Primary Care [...] PHI MEDEX BRONZ E December 19, 2013 [id number] GUSTAVO ARAMBULA SR PATIENT [employer] MEDICARE SUPPLEMEN PHI MEDIC ARE SUPPL EMENT Jul 21, 2007 NONE [id number] [phone] Edgar ARAMBULA PATIENT [place] SUPPLEMEN PHI MEDEX BRONZ E December 19, 2013 [id number] GUSTAVO ARAMBULA SR PATIENT [place] OF [place] ([place]ARD[place] MEDICARE SUPPLEMEN PHI MEDEX BRONZ E December 19, 2013 [id number] Edgar ARAMBULA PATIENT MEDICARE (WNR) MEDICARE () PART A Oct 19, 2004 PART A [id number] Edgar ARAMBULA PATIENT MEDICARE (WNR) MEDICARE (M) PART B Oct 19, 2004 PART B [id number] Edgar ARAMBULA [place] PATIENT [place]IC[place] ([place]) MEDICARE () PART A Oct 19, 2004 PART A [id number] [id number] Edgar ARAMBULAN PATIENT MEDICARE (WNR) MEDICARE () PART B Oct 19, 2004 PART B [id number] Edgar ARAMBULAN PATIENT MEDICARE (WNR) MEDICARE () PART A Oct 19, 2004 PART A [id number] Edgar ARAMBULAN PATIENT MEDICARE (WNR) MEDICARE () PART B Oct 19, 2004 PART B [id number] Edgar ARAMBULAN PATIENT MEDICARE (WNR) MEDICARE () PART A Oct 19, 2004 PART A [id number] Edgar ARAMBULA PATIENT MEDICARE (WNR) MEDICARE () PART B Oct 19, 2004 PART B [id number] Edgar ARAMBULAN PATIENT MEDICARE (WNR) MEDICARE () PART A Oct 19, 2004 PART A [id number] [phone] Edgar ARAMBULAN PATIENT MEDICARE (WNR) MEDICARE () PART B Oct 19, 2004 PART B [id number] [phone] Edgar ARAMBULA PATIENT Selected Encounter This section includes the information on record at [place] for the Encounter. Date/Time Encounter Type Encounter Description Reason Pro vider Source Aug 02, 2024 09:06 AM Outpatient Encounter PAIN CLINIC [facility] Encounter [...] 05, 2024 09:45 AM AMBULATORY - MEDIC[facility] Sep 06, 2024 11:00 AM AM[facility] Sep 26, 2024 12:30 PM AMBULATORY - MEDICINE [facility] Oct 08, 2024 09:30 AM [facility] Oct 21, 2024 09:30 AM AMBULATORY - MEDICINE [facility] Lab Results: +/- 30 days of the encounter This section includes the Chemistry and Hematology Lab Results on record with [place] for the patient. Radiology Reports and Pathology Reports are provided separately, in subsequent sections. Lab Results This section contains the Chemistry/Hematology Results that were resulted 30 days before or 30 daysafter the date of the Encounter. Date/Time Source Result Type Result - Unit Interpretation Reference Range Comment Aug 01, 2024 08:18 AM [facility] LIPID PANEL, NON FASTING Specimen Type: SERUM No comment entered. Ordering Provider: TRACY VILLANUEVA Report Released Date/Time: Jul 30, 2024 09:45 AM Reporting Lab: [facility] [address] [facility] [address] Performing Lab: [address] [address] CHOLESTEROL 155 mg/dL TRIGLYCERIDE 78 mg/dL 0-150 LDL calculated 85 mg/dL 0-129 CHOL/HDL 2.9 HDL CHOLESTEROL 54 mg/dL 40-60 Aug 01, 2024 08:18 AM [facility] LIVER FUNCTION Specimen Type: SERUM No comment entered. Ordering Provider: TRACY VILLANUEVA Report Released Date/Time: Jul 30, 2024 09:45 AM Reporting Lab: [facility] [address] [facility] [address] Performing Lab: [address] [address] PROTEIN,TOTAL 7.2 g/dL 6.0-8.3 ALBUMIN 3.9 g/dL 3.5-5.0 ALKALINE PHOSPHATASE 78 U/L 40-150 AST 16 U/L 5-34 ALT 18 U/L BILIRUBIN, TOTAL 0.8 mg/dL 0.2-1.2 Aug 01, 2024 08:18 AM [facility] BASIC METABOLIC PANEL (non-fasting) Spe cimen Type: SERUM No comment entered. Ordering Provider: TRACY VILLANUEVA Report Released Date/Time: Jul 30, 2024 09:45 AM Reporting Lab: [address] [address] Performing Lab: [address] [address] UREA NITROGEN 14 mg/dL 7-25 GLUCOSE 218 mg/dL H 65-100 SODIUM 136 mmol/L 135-145 POTASSIUM 4.1 mmol/L 3.5-5.0 CHLORIDE 101 mmol/L 100-110 CO2 26 meq/L 20-30 CREATININE, Serum 0.77 mg/dL 0.50-1.40 eGFR(CKD-EPI 2020) 88 mL/min >60 Aug 01, 2024 08:18 AM [facility] HEMOGLOBIN A1C PANEL Specimen Type: BLOOD Comment: [...] Jul 30, 2024 09:45 AM Reporting Lab: [address] [address] Performing Lab: [address] [address] HEMOGLOBIN A1C 8.1 H 4.0-5.6 Social History: [...] 25, 2023 09:05 AM VA-TOBACCO NEVER USED [place] [facility] [place] [facility] Tobacco Use History This section includes a history of the smoking, or tobacco-related health factors, that were collected on or before the date of the Encounter. The data comes from the [place] facility where the Encounter took place. Date/Time Smoking Status/Tobac co Use Comment Facility Dec 13, 2022 03:00 PM VA-TOBACCO DOESNT USE [place] 30 MIN WAKEUP [facility] [place] [facility] Dec 13, 2022 03:00 PM VA-TOBACCO USE 30 YEARS OR MORE [facility] [place] [facility] Dec 13, 2022 03:00 PM VA-TOBACCO USE ADVICE [facility] [place] [facility] Dec 13, 2022 03:00 PM VA-TOBACCO USE DOMESTIC HELPER NO [facility] [place] [facility] Dec 13, 2022 03:00 PM VA-TOBACCO USE MED NO [facility] [place] [facility] Dec 13, 2022 03:00 PM VA-TOBACCO USER EVERY DAY [facility] [place] [facility] Nov 17, 2021 10:00 AM VA-TOBACCO USE 30 YEARS OR MORE [facility] [place] [facility] Nov 17, 2021 10:00 AM VA-TOBACCO USE ADVICE [facility] [place] [facility] Nov 17, 2021 10:00 AM VA-TOBACCO USE DOMESTIC HELPER NO [facility] [place] [facility] Nov 17, 2021 10:00 AM VA-TOBACCO USE MED NO [facility] [place] [facility] Nov 17, 2021 10:00 AM VA-TOBACCO USE [place] 30 MIN OF WAKEUP [facility] [place] [facility] Nov 17, 2021 10:00 AM VA-TOBACCO USER EVERY DAY [facility] [place] [facility] Oct 14, 2013 12:55 PM V1-PT NOT INTERESTED IN QUIT TOBACCO USE [facility] [place] [facility] May 07, 2013 05:04 PM CURRENT SMOKER trying to stop [facility] [place] [facility] May 07, 2013 05:04 PM V1-PT DECLINES REF TO TOBACCO CESS [facility] May 07, 2013 05:04 PM V1-PT DECLINES TOBACCO CESSATION MEDS [facility] May 07, 2013 05:04 PM V1-PT READY TO QUIT TOBACCO USE [facility] Dec 03, 2012 08:23 AM V1-PT DECLINES REF TO TOBACCO CESS PRGM [facility] Dec 03, 2012 08:23 AM V1-PT DECLINES TOBACCO CESSATION MEDS [facility] Dec 03, 2012 08:23 AM V1-PT THINKING ABOUT QUIT TOBACCO [facility] Jun 05, 2012 08:45 AM CURRENT SMOKER 1/2ppd [facility] Jun 05, 2012 08:45 AM V1-PT DECLINES REF TO TOBACCO CESS PRGM [facility] Jun 05, 2012 08:45 AM V1-PT THINKING ABOUT QUIT TOBACCO USE [facility] Jun 05, 2012 08:45 AM V1-TOBACCO CESS MEDS NOT PRESCRIBED Vet wants to talk to his provider-He is nervous about taking meds to quit- but he is interested in [facility] Nov 25, 2011 09:14 AM V1-PT DECLINES REF TO TOBACCO CESS [facility] Nov 25, 2011 09:14 AM V1-PT DECLINES TOBACCO CESSATION MEDS [facility] Nov 25, 2011 09:14 AM V1-PT THINKING ABOUT QUIT TOBACCO USE [facility] May 06, 2011 01:02 PM CURRENT SMOKER [facility] May 06, 2011 01:02 PM V1-PT DECLINES TOBACCO CESSATION MEDS [facility] May 06, 2011 01:02 PM V1-PT NOT INTERESTED IN QUIT TOBACCO USE [facility] Sep 24, 2010 08:51 AM V1-PT DECLINES TOBACCO CESSATION MEDS [facility] Sep 24, 2010 08:51 AM V1-PT THINKING ABOUT QUIT TOBACCO USE [facility] [place] [facility] Mar 22, 2010 07:58 AM CURRENT SMOKER 1/2 ppd [facility] [place] [facility] Feb 25, 2009 12:05 PM QUIT TOBACCO USE IN PAST YEAR [facility] [place] [facility] Aug 26, 2008 09:28 AM CURRENT SMOKER 1/2 ppd [facility] [place] [facility] Aug 26, 2008 09:28 AM V1-PT DECLINES REF TO TOBACCO CESS PRGM [facility] [place] [facility] Aug 26, 2008 09:28 AM V1-PT READY TO QUIT TOBACCO USE [facility] [place] [facility] Dec 19, 2007 10:08 AM V1-PT DECLINES REF TO TOBACCO CESS PRGM [facility] [place] [facility] Dec 19, 2007 10:08 AM V1-PT DECLINES TOBACCO CESSATION MEDS [facility] [place] [facility] Dec 19, 2007 10:08 AM V1-PT THINKING ABOUT QUIT TOBACCO USE [facility] [place] [facility] Sep 11, 2007 11:10 AM CURRENT SMOKER [facility] [place] [facility] Sep 11, 2007 11:10 AM V1-PT DECLINES REF TO TOBACCO CESS PRGM [facility] [place] [facility] Sep 11, 2007 11:10 AM V1-PT DECLINES TOBACCO CESSATION [facility] [place] [facility] Sep 11, 2007 11:10 AM V1-PT THINKING ABOUT QUIT TOBACCO USE [facility] [place] [facility] Feb 13, 2007 01:46 PM V1-PT DECLINES REF TO TOBACCO CESS PRGM [facility] [place] [facility] Feb 13, 2007 01:46 PM V1-PT DECLINES TOBACCO CESSATION MEDS [facility] [place] [facility] Feb 13, 2007 01:46 PM V1-PT THINKING ABOUT QUIT TOBACCO USE [facility] [place] [facility] Oct 02, 2006 08:28 AM QUIT TOBACCO USE IN PAST YEAR 3 months ago [facility] [place] [facility] Aug 19, 2005 08:33 AM QUIT TOBACCO USE IN PAST YEAR nonsmoker [facility] [place] [facility] Sep 21, 2004 09:54 AM CURRENT SMOKER [facility] Sep 07, 2004 08:07 AM CURRENT SMOKER [facility] Sep 15, 2003 11:21 AM CURRENT SMOKER smokes one pk day [facility] Jul 23, 2003 01:57 PM CURRENT SMOKER [facility] Advance Directives: All historical and current [...] Apr 10, 2023 ADVANCE DIRECTIVE ESSIE STARK [facility] Apr 19, 2007 ADVANCE DIRECTIVE VICTORIA JOHNSON [facility] Encounter Notes: All associated encounter notes This section contains the clinical notes associated to the Encounter. Date/Time Encounter Note(s) Provider Source Aug 02, 2024 09:06 AM TELEPHONE ENCOUNTE R NOTE: LOCAL TITLE: TELEPHONE NOTE/SPECIALTY CLINIC STANDARD TITLE: TELEPHONE ENCOUNTER NOTE DATE OF NOTE: AUG 02, 2024@09:06 ENTRY DATE: AUG 02, 2024@09:06:24 AUTHOR: CINDY CANO EXP COSIGNER: URGENCY: STATUS: COMPLETED Call attempt was made to remind vet they have a VVC appt with the Pain clinic on 08/05/2024 at 945. No answer, lvm. /reginaldo/ CINDY CANO ADVANCED ATTORNEY LAW CLERK Signed: 08/02/2024 09:07 CINDY CANO [facility]
--- OUTSIDE RECORDS SUMMARY | 2024-08-16 09:38 | XMS_ITS | Encounter Summary ---
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 Name Role Phone TRACY VILLANUEVA Primary [...] PHI MEDEX BRONZ E December 19, 2013 [id number] [phone] GUSTAVO ARAMBULA SR PATIENT [employer] MEDICARE SUPPLEMEN PHI MEDIC ARE SUPPL EMENT Jul 21, 2007 NONE [id number] Edgar ARAMBULA PATIENT [place] MED[place] SUPPLEMEN PHI MEDEX BRONZ E December 19, 2013 [id number] [phone] GUSTAVO ARAMBULA SR PATIENT [place] ([place] MEDICARE SUPPLEMEN PHI MEDEX BRONZ E December 19, 2013 [id number] Edgar ARAMBULA PATIENT MEDICARE (WNR) MEDICARE () PART A Oct 19, 2004 PART A [id number] [id number] Edgar ARAMBULA PATIENT MEDICARE (WNR) MEDICARE (M) PART B Oct 19, 2004 PART B [id number] Edgar ARAMBULA [place] PATIENT MEDICARE (WNR) MEDICARE () PART A Oct 19, 2004 PART A [id number] [id number] [id number] Edgar ARAMBULAN PATIENT MEDICARE (WNR) MEDICARE () PART B Oct 19, 2004 PART B [id number] [phone] [id number] Edgar ARAMBULAN PATIENT MEDICARE (WNR) MEDICARE () PART A Oct 19, 2004 PART A [id number] Edgar ARAMBULAN PATIENT MEDICARE (WNR) MEDICARE () PART B Oct 19, 2004 PART B [id number] [id number] Edgar ARAMBULAN PATIENT MEDICARE (WNR) MEDICARE () PART A Oct 19, 2004 PART A [id number] Edgar ARAMBULAN PATIENT MEDICARE (WNR) MEDICARE () PART B Oct 19, 2004 PART B [id number] Edgar ARAMBULAN PATIENT MEDICARE (WNR) MEDICARE () PART A Oct 19, 2004 PART A [id number] Edgar ARAMBULAN PATIENT MEDICARE (WNR) MEDICARE () PART B Oct 19, 2004 PART B [id number] [phone] Edgar ARAMBULA PATIENT Selected Encounter This section includes the information on record at [place] for the Encounter. Date/Time Encounter Type Encounter Description Reason Pro vider Source Aug 07, 2024 10:29 AM Outpatient Encounter [facility] Encounter [...] 20 appointments. The data comes from all [place] treatment facilities. Appointment Date/Time Appointment Type Appointme nt Facility Name Sep 06, 2024 11:00 AM AMBULATORY [facility] Sep 26, 2024 12:30 PM [facility] Oct 08, 2024 09:30 AM [facility] Oct 21, 2024 09:30 AM AMBULATORY - MEDICINE [facility] Lab Results: +/- 30 days of the encounter This section includes the Chemistry and Hematology Lab Results on record with [place] for the patient. Radiology Reports and Pathology Reports are provided separately, in subsequent sections. Lab Results This section contains the Chemistry/Hematology Results that were resulted 30 days before or 30 daysafter the date of the Encounter. Date/Time Source Result Type Result - Unit Interpretation Reference Range Comment Aug 01, 2024 08:18 AM [facility] HEMOGLOBIN A1C PANEL Specimen Type: BLOOD Comment: [...] Jul 30, 2024 09:45 AM Reporting Lab: [address] [id number] Performing Lab: [address] [address] HEMOGLOBIN A1C 8.1 H 4.0-5.6 Aug 01, 2024 08:18 AM [facility] LIVER FUNCTION Specimen Type: SERUM No comment entered. Ordering Provider: TRACY VILLANUEVA Report Released Date/Time: Jul 30, 2024 09:45 AM Reporting Lab: [address] [address] Performing Lab: [address] [place] [address] PROTEIN,TOTAL 7.2 g/dL 6.0-8.3 ALBUMIN 3.9 g/dL 3.5-5.0 ALKALINE PHOSPHATASE 78 U/L 40-150 AST 16 U/L 5-34 ALT 18 U/L BILIRUBIN, TOTAL 0.8 mg/dL 0.2-1.2 Aug 01, 2024 08:18 AM [facility] BASIC METABOLIC PANEL (non-fasting) Spe cimen Type: SERUM No comment entered. Ordering Provider: TRACY VILLANUEVA Report Released Date/Time: Jul 30, 2024 09:45 AM Reporting Lab: [address] [address] Performing Lab: [address] [address] UREA NITROGEN 14 mg/dL 7-25 GLUCOSE 218 mg/dL H 65-100 SODIUM 136 mmol/L 135-145 POTASSIUM 4.1 mmol/L 3.5-5.0 CHLORIDE 101 mmol/L 100-110 CO2 26 meq/L 20-30 CREATININE, Serum 0.77 mg/dL 0.50-1.40 eGFR(CKD-EPI 2020) 88 mL/min >60 Aug 01, 2024 08:18 AM [facility] LIPID PANEL, NON FASTING Specimen Type: SERUM No comment entered. Ordering Provider: TRACY VILLANUEVA Report Released Date/Time: Jul 30, 2024 09:45 AM Reporting Lab: [address] [address] Performing Lab: [address] [address] CHOLESTEROL 155 mg/dL TRIGLYCERIDE 78 mg/dL 0-150 LDL calculated 85 mg/dL 0-129 CHOL/HDL 2.9 HDL CHOLESTEROL 54 mg/dL 40-60 Social History: Smoking Status (Most current) and Tobacco Use (All prior to encounter date) This section includes the most current, and the historical, smoking and tobacco- related health factors from the [place] facility where the Encounter took place. Current Smoking Status This section includes the most current smoking, or tobacco-related health factor, from the [place] facility where the Encounter took place. Date/Time Current Smoking Status Comment Facil ity December 25, 2023 09:05 AM VA-TOBACCO NEVER USED [place] [facility] [place] [facility] Tobacco Use History This section includes a history of the smoking, or tobacco-related health factors, that were collected on or before the date of the Encounter. The data comes from the [facility] where the Encounter took place. 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 [place] [facility] [place] [facility] Dec 13, 2022 03:00 PM VA-TOBACCO USE MED NO [place] [facility] [place] [facility] Dec 13, 2022 03:00 PM VA-TOBACCO USER EVERY DAY [place] [facility] [place] [facility] Nov 17, 2021 10:00 AM VA-TOBACCO USE 30 YEARS OR MORE [place] [facility] [place] [facility] Nov 17, 2021 10:00 AM VA-TOBACCO USE ADVICE [place] [facility] [place] [facility] Nov 17, 2021 10:00 AM 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 [place] [facility] [place] [facility] Nov 17, 2021 10:00 AM VA-TOBACCO USE MED NO [place] [facility] [place] [facility] Nov 17, 2021 10:00 AM VA-TOBACCO USE WI 30 MIN OF WAKEUP [place] [facility] [place] [facility] Nov 17, 2021 10:00 AM VA-TOBACCO USER EVERY DAY [place] [facility] [place] [facility] Oct 14, 2013 12:55 PM V1-PT NOT INTERESTED IN QUIT TOBACCO USE [facility] [place] [facility] May 07, 2013 05:04 PM CURRENT SMOKER trying to stop [place] [facility] [place] [facility] May 07, 2013 05:04 PM V1-PT DECLINES REF TO TOBACCO CESS PRGM [place] [facility] [place] [facility] May 07, 2013 05:04 PM V1-PT DECLINES TOBACCO CESSATION [facility] May 07, 2013 05:04 PM V1-PT READY TO QUIT TOBACCO USE [facility] [place] [facility] Dec 03, 2012 08:23 AM V1-PT DECLINES REF TO TOBACCO CESS PRGM [facility] Dec 03, 2012 08:23 AM V1-PT DECLINES TOBACCO CESSATION MEDS [facility] Dec 03, 2012 08:23 AM V1-PT THINKING ABOUT QUIT TOBACCO USE [facility] [place] [facility] Jun 05, 2012 08:45 AM CURRENT SMOKER 1/2ppd [facility] Jun 05, 2012 08:45 AM V1-PT DECLINES REF TO TOBACCO CESS PRGM [facility] Jun 05, 2012 08:45 AM V1-PT THINKING ABOUT QUIT TOBACCO USE [facility] Jun 05, 2012 08:45 AM V1-TOBACCO CESS MEDS NOT PRESCRIBED Vet wants to talk to his provider-He is nervous about taking meds to quit- but he is interested in quitting [facility] Nov 25, 2011 09:14 AM V1-PT DECLINES REF TO TOBACCO CESS PRGM [facility] Nov 25, 2011 09:14 AM V1-PT DECLINES TOBACCO CESSATION MEDS [facility] Nov 25, 2011 09:14 AM V1-PT THINKING ABOUT QUIT TOBACCO USE [facility] [place] [facility] May 06, 2011 01:02 PM CURRENT SMOKER [facility] May 06, 2011 01:02 PM V1-PT DECLINES TOBACCO CESSATION MEDS [facility] May 06, 2011 01:02 PM V1-PT NOT INTERESTED IN QUIT TOBACCO USE [facility] Sep 24, 2010 08:51 AM V1-PT DECLINES TOBACCO CESSATION MEDS [facility] Sep 24, 2010 08:51 AM V1-PT THINKING ABOUT QUIT TOBACCO USE [facility] [place] [facility] Mar 22, 2010 07:58 AM CURRENT SMOKER 1/2 ppd [facility] [place] [facility] Feb 25, 2009 12:05 PM QUIT TOBACCO USE IN PAST YEAR [facility] [place] [facility] Aug 26, 2008 09:28 AM CURRENT SMOKER 1/2 ppd [facility] [place] [facility] Aug 26, 2008 09:28 AM V1-PT DECLINES REF TO TOBACCO CESS PRGM [facility] [place] [facility] Aug 26, 2008 09:28 AM V1-PT READY TO QUIT TOBACCO USE [facility] [place] [facility] Dec 19, 2007 10:08 AM V1-PT DECLINES REF TO TOBACCO CESS PRGM [facility] [place] [facility] Dec 19, 2007 10:08 AM V1-PT DECLINES TOBACCO CESSATION MEDS [facility] [place] [facility] Dec 19, 2007 10:08 AM V1-PT THINKING ABOUT QUIT TOBACCO USE [facility] [place] [facility] Sep 11, 2007 11:10 AM CURRENT SMOKER [facility] [place] [facility] Sep 11, 2007 11:10 AM V1-PT DECLINES REF TO TOBACCO CESS PRGM [facility] [place] [facility] Sep 11, 2007 11:10 AM V1-PT DECLINES TOBACCO CESSATION MEDS [place] [facility] [place] [facility] Sep 11, 2007 11:10 AM V1-PT THINKING ABOUT QUIT TOBACCO USE [facility] [place] [facility] Feb 13, 2007 01:46 PM V1-PT DECLINES REF TO TOBACCO CESS PRGM [facility] [place] [facility] Feb 13, 2007 01:46 PM V1-PT DECLINES TOBACCO CESSATION MEDS [facility] [place] [facility] Feb 13, 2007 01:46 PM V1-PT THINKING ABOUT QUIT TOBACCO USE [facility] [place] [facility] Oct 02, 2006 08:28 AM QUIT TOBACCO USE IN PAST YEAR 3 months ago [facility] [place] [facility] Aug 19, 2005 08:33 AM QUIT TOBACCO USE IN PAST YEAR nonsmoker [place] [facility] [place] [facility] Sep 21, 2004 09:54 AM CURRENT SMOKER [facility] [place] [facility] Sep 07, 2004 08:07 AM [facility] Sep 15, 2003 11:21 AM CURRENT SMOKER smokes one pk day [facility] Jul 23, 2003 01:57 PM CURRENT SMOKER [facility] Advance Directives: All historical and current Section Date Range: From patient's date of to the date document was created. This section includes ALL of a patient's completed or amended [place] Advance and Rescinded Directives. The entries below indicate that a directive exists for the patient, but an actual copy is not included with this document. The data comes from all [place] facilities. Date Advance Directives Provider Source Apr 10, 2023 ADVANCE DIRECTIVE GEORGEESSIE DOZIER [facility] Apr 19, 2007 [facility] Encounter Notes: All associated encounter notes This section contains the clinical notes associated to the Encounter. 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
--- OUTSIDE RECORDS SUMMARY | 2024-08-16 09:38 | XMS_ITS | Encounter Summary ---
Author Name [facility] [place] [facility] [place] Address [address] [place] [address] Care Team Providers Care Mission Manager Name Role Phone TRACY VILLANUEVA Primary [...] PHI MEDEX BRONZ E December 19, 2013 [id number] GUSTAVO GUZMAN SR PATIENT [employer] LIFE [employer] CASUALTY MEDICARE SUPPLEMEN PHI MEDIC ARE SUPPL EMENT Jul 21, 2007 NONE [id number] [phone] Edgar GUZMAN PATIENT [place] MEDICARE SUPPLEMEN PHI MEDEX BRONZ E December 19, 2013 [id number] GUSTAVO GUZMAN SR PATIENT [place] MEDICARE SUPPLEMEN PHI MEDEX BRONZ E December 19, 2013 [id number] [phone] FILEMONEEdgar [place] PATIENT MEDICARE (WNR) MEDICARE (M) PART A Oct 19, 2004 PART A [id number] Edgar GUZMAN [place] PAT[place]) MEDICARE (M) PART B Oct 19, 2004 PART B [id number] [id number] Edgar GUZMAN [place] PAT[place] ([place]) MEDICARE (M) PART A Oct 19, 2004 PART A [id number] [phone] FILEMONEEdgar [place] PAT[place] MEDICARE ([place]) MEDICARE (M) PART B Oct 19, 2004 PART B [id number] [phone] Edgar GUZMAN [place] PAT[place]IC[place] ([place]) MEDICARE (M) PART B Oct 19, 2004 PART B [id number] Edgar GUZMAN [place] PAT[place]IC[place] ([place]) MEDICARE () PART A Oct 19, 2004 PART A [id number] Edgar GUZMAN [place] PAT[place]IC[place]) MEDICARE () PART A Oct 19, 2004 PART A [id number] Edgar GUZMAN [place] PAT[place]IC[place]) MEDICARE () PART B Oct 19, 2004 PART B [id number] FILEMONEEdgar [place] PAT[place] MEDICARE ([place]) MEDICARE () PART A Oct 19, 2004 PART A [id number] Edgar GUZMAN [place] PAT[place]IC[place] ([place]) MEDICARE (M) PART B Oct 19, 2004 PART B [id number] [phone] Edgar GUZMANN PATIENT Selected Encounter This section includes the information on [place] at [place] for the Encounter. Date/Time Encounter Type Encounter Description Reason Provider Source Aug 05, 2024 09:45 AM OFFICE O/P EST LOW 20 MIN PAIN CLINIC ICD-10-CM G89.4 Chronic pain syndrome ERROL,S ETH B IHE Encounter Template Text not used by [place] Assessments - Encounter Diagnoses This section includes the primary and secondary diagnoses documented for the Encounter. Date/Time Primary/Secondary Diagnosis Diagnosis Name Provider Source Aug 05, 2024 10:05 AM PRIMARY Chronic pain syndrome ERROL,S ETH B [facility] Aug 05, 2024 10:05 AM SECONDARY Infarction of spleen ERROL,S ETH B [facility] Plan of Treatment: Future Appointments (+ 6 months) and Future Tests (+/- 45 days) The Plan of Treatment section includes future care activities for the patient from all [place] [facility]. This section includes future appointments [...] 06, 2024 11:00 AM AMBULATORY - MEDICINE [facility] Sep 26, 2024 12:30 PM AMBULATORY - MEDICINE [facility] Oct 08, 2024 09:30 AM AMBULATORY - PSYCHIATRY [facility] Oct 21, 2024 09:30 AM AMBULATORY - MEDICINE [facility] Lab Results: +/- 30 days [...] Range Comment Aug 01, 2024 08:18 AM [place] HEMOGLOBIN A1C PANEL Specimen Type: BLOOD Comment: [...] Jul 30, 2024 09:45 AM Reporting Lab: [address] [id number] Performing Lab: [address] [address] HEMOGLOBIN A1C 8.1 H 4.0-5.6 Aug 01, 2024 08:18 AM [place] LIVER FUNCTION Specimen Type: SERUM No comment entered. Ordering Provider: TRACY VILLANUEVA Report Released Date/Time: Jul 30, 2024 09:45 AM Reporting Lab: [address] [address] Performing Lab: [address] [address] PROTEIN,TOTAL 7.2 g/dL 6.0-8.3 ALBUMIN 3.9 g/dL 3.5-5.0 ALKALINE PHOSPHATASE 78 U/L 40-150 AST 16 U/L 5-34 ALT 18 U/L BILIRUBIN, TOTAL 0.8 mg/dL 0.2-1.2 Aug 01, 2024 08:18 AM [place] LIPID PANEL, NON FASTING Specimen Type: SERUM No comment entered. Ordering Provider: TRACY VILLANUEVA Report Released Date/Time: Jul 30, 2024 09:45 AM Reporting Lab: [address] [address] Performing Lab: [address] [address] CHOLESTEROL 155 mg/dL TRIGLYCERIDE 78 mg/dL 0-150 LDL calculated 85 mg/dL 0-129 CHOL/HDL 2.9 HDL CHOLESTEROL 54 mg/dL 40-60 Aug 01, 2024 08:18 AM [place] BASIC METABOLIC PANEL (non-fasting) Spe cimen Type: SERUM No comment entered. Ordering Provider: TRACY VILLANUEVA Report Released Date/Time: Jul 30, 2024 09:45 AM Reporting Lab: [address] [address] Performing Lab: [address] [address] UREA NITROGEN 14 mg/dL 7-25 GLUCOSE 218 [...] took place. Date/Time Current Smoking Status Comment [facility] it December 25, 2023 09:05 AM VA-TOBACCO NEVER USED [place] [facility] [place] [facility] Tobacco Use History This section includes a history of the smoking, or tobacco-related health factors, that were collected on or before the date of the Encounter. The data comes from the [place] facility where the Encounter took place. 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 [facility] [place] [facility] Dec 13, 2022 03:00 PM VA-TOBACCO USE MED NO [facility] [place] [facility] Dec 13, 2022 03:00 PM VA-TOBACCO USER EVERY DAY [facility] [place] [facility] Nov 17, 2021 10:00 AM VA-TOBACCO USE 30 YEARS OR MORE [facility] [place] [facility] Nov 17, 2021 10:00 AM VA-TOBACCO USE ADVICE [facility] [place] [facility] Nov 17, 2021 10:00 AM VA-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 USE 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 [facility] [place] [facility] Nov 17, 2021 10:00 AM VA-TOBACCO USE MED NO [facility] [place] [facility] Nov 17, 2021 10:00 AM VA-TOBACCO USE WI 30 MIN OF WAKEUP [facility] [place] [facility] Nov 17, 2021 10:00 AM VA-TOBACCO USER EVERY DAY [facility] Oct 14, 2013 12:55 PM V1-PT NOT INTERESTED IN QUIT TOBACCO USE [facility] [place] [facility] May 07, 2013 05:04 PM CURRENT SMOKER trying to stop [facility] May 07, 2013 05:04 PM V1-PT DECLINES REF TO TOBACCO CESS PRGM [place] [facility] May 07, 2013 05:04 PM V1-PT DECLINES TOBACCO CESSATION MEDS [facility] May 07, 2013 05:04 PM V1-PT READY TO QUIT TOBACCO USE [facility] Dec 03, 2012 08:23 AM V1-PT DECLINES REF TO TOBACCO CESS PRGM [facility] Dec 03, 2012 08:23 AM V1-PT DECLINES TOBACCO CESSATION MEDS [facility] Dec 03, 2012 08:23 AM V1-PT THINKING ABOUT QUIT TOBACCO USE [facility] Jun 05, 2012 08:45 AM CURRENT SMOKER 1/2ppd [facility] Jun 05, 2012 08:45 AM V1-PT DECLINES REF TO TOBACCO CESS PRGM [facility] Jun 05, 2012 08:45 AM V1-PT THINKING ABOUT QUIT TOBACCO USE [facility] Jun 05, 2012 08:45 AM V1-TOBACCO CESS MEDS NOT PRESCRIBED Vet wants to talk to his provider-He is nervous about taking meds to quit- but he is interested in quitting [facility] Nov 25, 2011 09:14 AM V1-PT DECLINES REF TO TOBACCO CESS PRGM [facility] Nov 25, 2011 09:14 AM V1-PT DECLINES TOBACCO CESSATION MEDS [facility] Nov 25, 2011 09:14 AM V1-PT THINKING ABOUT QUIT TOBACCO USE [facility] May 06, 2011 01:02 PM CURRENT SMOKER [facility] [place] [facility] May 06, 2011 01:02 PM V1-PT DECLINES TOBACCO CESSATION MEDS [facility] [place] [facility] May 06, 2011 01:02 PM V1-PT NOT INTERESTED IN QUIT TOBACCO USE [facility] [place] [facility] Sep 24, 2010 08:51 AM V1-PT DECLINES TOBACCO CESSATION MEDS [place] [facility] [place] [facility] Sep 24, 2010 08:51 AM V1-PT THINKING ABOUT QUIT TOBACCO USE [facility] [place] [facility] Mar 22, 2010 07:58 AM CURRENT SMOKER 1/2 ppd [facility] [place] [facility] Feb 25, 2009 12:05 PM QUIT TOBACCO USE IN PAST YEAR [place] [facility] [place] [facility] Aug 26, 2008 09:28 AM CURRENT SMOKER 1/2 ppd [facility] [place] [facility] Aug 26, 2008 09:28 AM V1-PT DECLINES REF TO TOBACCO CESS PRGM [facility] [place] [facility] Aug 26, 2008 09:28 AM V1-PT READY TO QUIT TOBACCO USE [facility] [place] [facility] Dec 19, 2007 10:08 AM V1-PT DECLINES REF TO TOBACCO CESS [facility] [place] [facility] Dec 19, 2007 10:08 AM V1-PT DECLINES TOBACCO CESSATION MEDS [facility] [place] [facility] Dec 19, 2007 10:08 AM V1-PT THINKING ABOUT QUIT TOBACCO USE [facility] [place] [facility] Sep 11, 2007 11:10 AM CURRENT SMOKER [facility] [place] [facility] Sep 11, 2007 11:10 AM V1-PT DECLINES REF TO TOBACCO CESS PRGM [facility] [place] [facility] Sep 11, 2007 11:10 AM V1-PT DECLINES TOBACCO CESSATION MEDS [facility] [place] [facility] Sep 11, 2007 11:10 AM V1-PT THINKING ABOUT QUIT TOBACCO USE [facility] [place] [facility] Feb 13, 2007 01:46 PM V1-PT DECLINES REF TO TOBACCO CESS PRGM [facility] [place] [facility] Feb 13, 2007 01:46 PM V1-PT DECLINES TOBACCO CESSATION MEDS [facility] [place] [facility] Feb 13, 2007 01:46 PM V1-PT THINKING ABOUT QUIT [facility]AC[facility] Oct 02, 2006 08:28 AM QUIT TOBACCO USE IN PAST YEAR 3 months ago [facility] Aug 19, 2005 08:33 AM QUIT TOBACCO USE IN PAST YEAR nonsmoker [facility] Sep 21, 2004 09:54 AM CURRENT SMOKER [facility] Sep 07, 2004 08:07 AM CURRENT SMOKER [facility] Sep 15, 2003 11:21 AM CURRENT SMOKER smokes one pk day [facility] Jul 23, 2003 01:57 PM CURRENT SMOKER [facility] Advance Directives: All historical and current [...] 10, 2023 ADVANCE DIRECTIVE LIN[place] [facility] RADHA [facility] Apr 19, 2007 ADVANCE DIRECTIVE [facility] Encounter Notes: All associated encounter notes This section contains the clinical notes associated to the Encounter. Date/Time Encounter Note(s) Provider Source Aug 05, 2024 09:47 AM PAIN MEDICINE OUTPATIENT NOTE: LOCAL TITLE: PAIN CLINIC NOTE STANDARD TITLE: PAIN MEDICINE OUTPATIENT NOTE DATE OF NOTE: AUG 05, 2024@09:47 ENTRY DATE: AUG 05, 2024@09:47:16 AUTHOR: JOSE NORTON EXP COSIGNER: URGENCY: STATUS: COMPLETED CURRENT Elijah Rebolledo in next to . Stopped Butrans in April due to issues. No pain, doing well. ASSISTIVE DEVICES Cane since January 2023 PAIN-RELATED [...] [employer] SOCIAL HISTORY Retired Lives near elijah Rebolledo and his RN Grandchildren and great grandchildren Significant other Suzi - October 2023 FAMILY HISTORY SUBSTANCE USE HISTORY Tobacco: 1/ ppd ETOH: None now, 2-3 per day until operation Marijuana: tired edibles Illicit drugs: None = ASSESSMENT and PLAN = Mr. 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 08/05/2024 PAIN Resolved with time and circumstance and other ministrations. Very engaged with family. I let and son know I am available if any new issues arise. 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 Reports significant relief. -Continue Butrans 5 mcg/hour SLEEP APNEA Uses CPAP. MOOD, SLEEP Meds per MH prescriber. Pritchett and I formulated the plan through shared medical-decision making. repeated the plan back to me and had no further questions at end of appointment. APPOINTMENT LENGTH: 20 minutes FOLLOW-UP: None needed 08/08/2024 10:30 CWM/SO/PACT 7 09/06/2024 11:00 CWM/SO/PHARM/PACT 2 10/08/2024 09:30 CWM/NO/VVC/MHC/DANIELS1 10/21/2024 09:30 CWM/SO/PODIATRY/ROSS MEDICATION and RECONCILIATION Active Outpatient Medications (including Supplies): Active Outpatient Medications Status 1) ACETAMINOPHEN 500MG TAB TAKE TWO TABLETS BY MOUTH TWICE ACTIVE DAILY Indication: FOR PAIN 2) ALBUTEROL 90MCG (CFC-F) 200D ORAL INHL INHALE 1 TO 2 PUFFS ACTIVE BY MOUTH EVERY 6 HOURS NEEDED Indication: FOR BRONCHOSPASM 3) AMLODIPINE BESYLATE 10MG TAB TAKE ONE TABLET BY MOUTH ONCE ACTIVE DAILY FOR BLOOD PRESSURE/HEART, DO NOT TAKE WITH GRAPEFRUIT JUICE 4) APIXABAN 5MG TAB TAKE ONE TABLET BY MOUTH EVERY 12 HOURS ACTIVE Indication: FOR PREVENTION OF BLOOD CLOTS 5) ATORVASTATIN CALCIUM 40MG TAB TAKE ONE-HALF TABLET BY MOUTH ACTIVE ONCE DAILY FOR CHOLESTEROL 6) CARBOXYMETHYLCELLULOSE NA 0.5% OPH SOLN INSTILL 1 DROP INTO ACTIVE EACH EYE FOUR TIMES A DAY Indication: FOR DRY EYE 7) CITALOPRAM HYDROBROMIDE 40MG TAB TAKE ONE-HALF TABLET BY ACTIVE MOUTH ONCE DAILY FOR DEPRESSION AND ANXIETY Indication: FOR MAJOR DEPRESSIVE DISORDER 8) DEPEND UNDERWEAR,MAXIMUM,MEN SM/MED USE 1 BRIEF DIRECTED ACTIVE TWICE DAILY FOR INCONTINENCE Indication: URINARY INCONTINENCE 9) HYDROCORTISONE 1% OINT APPLY THIN LAYER TOPICALLY TWICE ACTIVE DAILY NEEDED Indication: FOR ATOPIC DERMATITIS 10) LATANOPROST 0.005% OPH SOLN INSTILL 1 DROP INTO EACH EYE AT ACTIVE BEDTIME Indication: FOR INCREASED PRESSURE IN THE EYE 11) MELATONIN 5MG CAP/TAB TAKE ONE CAPSULE/TABLET BY MOUTH AT ACTIVE BEDTIME Indication: FOR INSOMNIA 12) METFORMIN HCL 750MG 24HR SA TAB TAKE ONE TABLET BY MOUTH ACTIVE TWICE DAILY Indication: FOR TYPE 2 DIABETES MELLITUS 13) NUTRITION SUPL ENSURE PLUS/CONNIE LIQUID DRINK 1 CAN BY MOUTH HOLD TWICE DAILY Indication: FOR NUTRITIONAL SUPPLEMENTATION 14) PANTOPRAZOLE NA 40MG EC TAB TAKE ONE TABLET BY MOUTH EVERY ACTIVE MORNING 30 MINUTES BEFORE BREAKFAST 15) QUETIAPINE FUMARATE 25MG TAB TAKE ONE TABLET BY MOUTH AT ACTIVE BEDTIME Indication: SLEEP, DEPRESSION, ANXIETY 16) SENNOSIDES 8.6MG TAB TAKE ONE TABLET BY MOUTH TWICE DAILY ACTIVE NEEDED Indication: FOR CONSTIPATION 17) TIOTROPIUM 2.5MCG/ACTUAT 60D ORAL INHL INHALE 2 PUFFS BY ACTIVE MOUTH ONCE DAILY Indication: FOR BRONCHOSPASM PREVENTION WITH COPD 18) TRIAMCINOLONE ACETONIDE 0.1% CREAM APPLY A THIN LAYER HOLD TOPICALLY EVERY 5 DAYS Indication: FOR ATOPIC DERMATITIS ACTIVE PROBLEMS Active problems - Computerized Problem [...] 19. Disorder of lumbar disc (SNOMED CT 714223823) 20. Depression (SNOMED CT 50039837) 21. Dry Eye Syndromes * 22. 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 Localised, primary osteoarthritis 24. Prostate, Malign Neoplasm 25. Cataract, Cortical (Senile) 26. 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 Mixed hyperlipidaemia 28. Benign essential hypertension 29. POLYPS, COLON/LG BOWEL (BENIGN MAEGAN 30. Tobacco use (SNOMED CT 089251326) Appointment length includes time with , completing clinical reminders, reviewing relevant information in EMR, review of PDMP, ordering appropriate tests, prescribing medications, coordinating care, and completing the medical record. Any quotations may not be exact and are intended to convey the effect of what the Pritchett was saying. [place] [employer] ([employer]) Standard Documentation [facility] Clinician Resources Only: E911 (Emergency Call Relay Center): [phone] [employer] Crisis Line - [address] [facility] Suicide Coordinator [phone], Ext. [phone]; Back-up Ext. [phone] [place] Police, [place], [place] [phone] Introduction: Visit is being conducted by [place] [employer]. Pritchett identified with 2 identifiers: [X] Full Name [X] Date of [ ] [place] ID Card Emergency Plan: confirmed and/or provided the following information in case of emergency or technology failure. PATIENT PHONE - PHONE NUMBER [CELLULAR] - Is patient phone number correct, if not, enter below: Pritchett's phone number: GUSTAVO GUZMAN SR [address], [address] Pritchett's present location and address for appointment: Home 's emergency contact name and phone number: Listed reported that location is private and safe: Yes Informed Consent: informed of the risks and benefits of Telehealth video care. has the right to refuse video services. If refuses video visit, a [id number] visit will be scheduled. verbalized consent for this video visit: Yes provided consent for any other persons present for visit: Yes If yes, who and relationship to patient:Elijah Rebolledo Secure visit: Visit was locked for security and privacy:Yes /reginaldo/ JOSE NORTON MD PHYSICIAN Signed: 08/05/2024 10:05 JOSE NORTON [place] [facility]
== END 2024-08-16 09:34 | disposition home or self-care (01) ==
PROVIDERS: PCP Nurse Practitioner Family; Visit Provider Physician Assistant Surgical
DX: I65.23 Occlusion and stenosis of bilateral carotid arteries (principal); I73.9 Peripheral vascular disease, unspecified
CPT/HCPCS: 99214

== ENCOUNTER → 2024-08-16 09:19 | Outpatient (BNVA) | payer MEDICARE, OTHER, SELFPAY ==
[2023-04-05 09:10] VITALS: BP 114/72; BP 124/60; BMI 25.3
== END ==
PROVIDERS: PCP Nurse Practitioner Family; Visit Provider Physician Assistant Surgical
DX: I65.23 Occlusion and stenosis of bilateral carotid arteries (principal); I73.9 Peripheral vascular disease, unspecified
CPT/HCPCS: 99212

== ENCOUNTER 2024-10-30 09:16 | Outpatient (AMB) | payer OTHER, SELFPAY ==
[2023-04-05 09:10] VITALS: BP 114/72; BP 124/60; BMI 25.3
[2024-10-30 09:24] VITALS: BP 138/62; PULSE 72; BMI 23.9
--- NOTE | 2024-10-30 09:24 | A.OFFVIS_ITS ---
Vital Signs 10/30/24 09:24 Height 5 ft 3 in Weight 135 lb BMI 23.9 BP 138/62 Blood Pressure Location Lt brachial Position Sitting Pulse 72 Pulse Source Monitor Intake Visit Reasons: 6 mth f/up Allergies hydrochlorothiazide Allergy (Severe, Verified 08/16/24 09:22) low sodium lisinopril Allergy (Severe, Uncoded 08/16/24 09:22) Swelling Medication List - Last Reconciled 10/30/24 by Simeon López MD albuterol sulfate 90 mcg/actuation 2 inhalations inhalation QID PRN amlodipine 10 mg PO BEDTIME apixaban 5 mg PO BID atorvastatin 20 mg PO DAILY blood sugar diagnostic (FreeStyle Lite Strips) Test once daily blood-glucose meter (FreeStyle Lite Meter kit) As directed citalopram 20 mg PO DAILY lancets (FreeStyle Lancets) Test once daily melatonin 5 mg PO BEDTIME PRN metformin 750 mg PO BID ondansetron 4 mg PO Q6-8H PRN pantoprazole 40 mg PO DAILY quetiapine 25 mg PO BEDTIME tiotropium-olodaterol 2.5-2.5 mcg/actuation (Stiolto Respimat) 2 puffs inhalation DAILY HPI Comments Details: Amaury comes for follow-up. Overall he has been doing well from cardiac perspective. He continues to walk regularly including him wintertime there has no exertional symptoms. Also denies any significant claudication. Denies any angina. Denies any prolonged palpitation irregular heartbeat. Denies any shortness of breath, orthopnea, PND. No lightheadedness, syncope. Follows with Dr. Santos for PVD. [facility] Medical History (Updated 10/30/24 @ 09:51 by Simeon López MD) CAD (coronary artery disease) HTN (hypertension) Aortic stenosis Macular degeneration of right eye Type 2 diabetes mellitus without complications Essential hypertension Prostate cancer Hyperlipemia PVD (peripheral vascular disease) COPD (chronic obstructive pulmonary disease) Surgical History Hx of prostatectomy S/P TAVR (transcatheter aortic valve replacement) Hx of colonoscopy History of esophagogastroduodenoscopy (EGD) Aortic valve replaced (~01/19/23) S/p bilateral carotid endarterectomy History of hip replacement History of cataract surgery History of inguinal hernia repair History of hernia surgery History of facial surgery Family History Mother No problems noted. Father No problems noted. Social History Household Members: Significant Other Household Members Other:: girlfriend Housing: Apartment Do you presently have visiting nurse or other home services: No Alcohol intake: former Patient Tobacco Use Status: Current everyday Tobacco user Tobacco use type: Cigarette Cigarette Packs Per Day: 0.5 Cigarettes Per Day: 8 Years Smoked: 65, started at age 16, 1PPD e-Cigarette/Vaping Use: Never Used Second Hand Smoke Exposure: No Advance Directives Date on File: 11/20/21 service: Yes ([employer]) Current occupational status: retired Review of Systems Const Denies weakness ENT Denies dizziness Card Denies chest pain, Denies chest pain with activity, Denies syncope, Denies rapid heart rate, Denies pedal edema, Denies edema, Denies leg edema, Denies lightheadedness, Denies palpitations, Denies dyspnea, Denies dyspnea on exertion and Denies orthopnea Resp Denies cough, Denies dyspnea and Denies dyspnea on exertion GI Denies hematochezia and Denies change in stool character Musc Denies abnormal gait, Denies muscle cramps, Denies muscle weakness, Denies numbness, Denies radiating pain into limb and Denies tingling Neuro Denies Abnormal speech present, Denies abnormal gait, Denies dizziness, Denies syncope, Denies numbness, Denies tingling and Denies weakness Endo Denies palpitations Physical Exam Vital Signs: Last Vital Signs Pulse 72 10/30/24 09:24 BP 138/62 10/30/24 09:24 BMI result Body Mass Index 23.9 Const General: cooperative, comfortable, no acute distress, well developed, alert and awake Nutritional Appearance: overweight Orientation/consciousness: patient oriented x3 Limitations: no limitations HEENT Head: Yes normocephalic and Yes atraumatic Neck Neck: Yes trachea midline, Yes supple, Yes no JVD and Yes other (Bilateral endarterectomies scar) Resp Effort & Inspection: normal respiratory effort Auscultation: clear to auscultation bilaterally Cardio Jugular venous distension: no JVD Palpation: normal PMI Rate: regular rate Rhythm: regular rhythm Heart sounds: S1 normal heart sound present, S2 normal heart sound present, no click and no gallops GI Auscultation: normal bowel sounds Skin General skin exam: no rashes or lesions noted Neuro General: patient oriented x3 and no focal motor deficits Speech: No Abnormal speech present Extrem General: Yes no clubbing, cyanosis or edema Office Procedures EKG Details: EKG shows sinus rhythm with first-degree AV block otherwise normal EKG 50233-[id number], Complete Assessment & Plan Assessment & Plan (1) S/P TAVR (transcatheter aortic valve replacement): Comment: 26 mm Mary 3 valve, January of 2023 Code(s): Z95.2 - Presence of prosthetic heart valve Category: Surgical Plan: Status post transcatheter aortic valve replacement for severe aortic stenosis doing well. Valve is working well clinically. Will follow-up echocardiogram in 1 year's time. Continue full oral anticoagulation, currently on Eliquis 5 mg b.i.d.. SBE prophylaxis as per ACC/aha guidelines. Continue aggressive risk factor modification, see below. (2) CAD (coronary artery disease): Comment: Nonobstructive by cardiac catheterization done pre TAVR in October 2022 Code(s): I25.10 - Atherosclerotic heart disease of [place] coronary artery without angina pectoris Category: Medical Plan: Diffuse atherosclerotic disease with bilateral carotid artery endarterectomy as well as peripheral vascular disease and diffuse and nonobstructive coronary artery disease. Clinically currently not having any anginal symptoms. Continue aggressive medical therapy. Currently on full oral anticoagulation Eliquis and would therefore avoid aspirin therapy from coronary artery disease perspective to reduce bleeding risk. Continue statin therapy with target goal LDL less than 70 mg/dL. Diabetes with goal hemoglobin A1c less than 7% being pursue through your office. Blood pressure is currently well optimized. Importance of good blood pressure control was discussed. Target goal blood pressure less than 130/84. Low-salt diet was discussed. Will follow up in the clinic in 1 year's time, sooner p.r.n.. Thank you for allowing me to partake in his care Orders: Orders CA echo transthoracic complete 1 Year Z95.2 - Presence of prosthetic heart valve Coding Level of Care Code Est Pt Level 4 (38647) Complex EM visit Add On G2211 Diagnoses S/P TAVR (transcatheter aortic valve replacement) Z95.2 CAD (coronary artery disease) I25.10 CPT Codes EKG - CPT: 56098-[id number], Complete ([id number])
--- OUTSIDE RECORDS SUMMARY | 2024-10-30 09:58 | XMS_ITS | Encounter Summary ---
Author Name [facility] [place] [facility] [place] Address [address] [place] [address] Care Team Providers Care Civil Preparedness Coordinator Name Role Phone TRACY VILLANUEVA Primary Care [...] PHI MEDEX BRONZ E December 19, 2013 [id number] GUSTAVO ARAMBULA SR PATIENT [employer] MEDICARE SUPPLEMEN PHI MEDIC ARE SUPPL EMENT Jul 21, 2007 NONE [id number] [phone] Edgar ARAMBULA [place] SUPPLE[place] PHI MEDEX BRONZ E December 19, 2013 [id number] GUSTAVO ARAMBULA SR PATIENT [place] OF [place] ([place]) MEDICARE SUPPLEMEN PHI MEDEX BRONZ E December 19, 2013 [id number] Edgar ARAMBULA PATIENT MEDICARE (WNR) MEDICARE () PART A Oct 19, 2004 PART A [id number] Edgar ARAMBULAN PATIENT MEDICARE (WNR) MEDICARE () PART B Oct 19, 2004 PART B [id number] Edgar ARAMBULA [place] PATIENT MEDICARE ([place]) MEDICARE () PART A Oct 19, 2004 PART A [id number] [id number] Edgar ARAMBULAN PATIENT MEDICARE (WNR) MEDICARE () PART B Oct 19, 2004 PART B [id number] [id number] Edgar ARAMBULAN PATIENT MEDICARE (WNR) MEDICARE () PART A Oct 19, 2004 PART A [id number] Edgar ARAMBULA [place] PATIENT MEDICARE ([place]) MEDICARE () PART B Oct 19, 2004 PART B [id number] Edgar ARAMBULAN PATIENT MEDICARE (WNR) MEDICARE () PART A Oct 19, 2004 PART A [id number] [phone] Edgar ARAMBULA PATIENT MEDICARE (WNR) MEDICARE () PART B Oct 19, 2004 PART B [id number] [phone] Edgar ARAMBULAN PATIENT MEDICARE (WNR) MEDICARE () PART A Oct 19, 2004 PART A [id number] Edgar ARAMBULAN PATIENT MEDICARE (WNR) MEDICARE () PART B Oct 19, 2004 PART B [id number] Edgar ARAMBULAN PATIENT Selected Encounter This section includes the information on record at [place] for the Encounter. Date/Time Encounter Type Encounter Description Reason Pro vider Source Oct 21, 2024 09:19 AM Outpatient Encounter PRIMARY CARE/MEDICINE IHE Encounter [...] 20 appointments. The data comes from all [facility]. Appointment Date/Time Appointment Type Appointme nt Facility Name Oct 30, 2024 08:00 AM [facility] Nov 11, 2024 01:30 PM AMBULATORY - MEDICINE [facility] Nov 12, 2024 10:30 AM [facility] Nov 29, 2024 10:00 AM [facility] Jan 24, 2025 11:00 AM AMBULATORY [facility] MEDICINE [facility] [...] of theEncounter. The data comes from all [facility]. Test Date/Time Test Type Test Details Facility Name Oct 18, 2024 03:15 PM Consult Order COMMUNITY CARE-CARDIOLOGY Cons [facility] Nov 11, 2024 12:00 AM Laboratory - Chemistry Order HEMOGLOBIN A1C PANEL BLOOD (LAV-BLOOD) [facility] Nov 11, 2024 12:00 AM Laboratory - Chemistry Order TSH BLOOD (SST-SERUM) [facility] Nov 11, 2024 12:00 AM Laboratory - Chemistry Order MICROALBUMIN CREATININE RATIO PANEL URINE (RANDOM) [facility] Nov 11, 2024 12:00 AM Laboratory - Chemistry Order VITAMIN D (25-OH) BLOOD (SST-SERUM) [facility] Nov 11, 2024 12:00 AM Laboratory - Chemistry Order CBC BLOOD (LAV-BLOOD) [facility] Nov 11, 2024 12:00 AM Laboratory - Chemistry Order BASIC METABOLIC PANEL (non-fasting) BLOOD (SST-SERUM) [facility] Nov 11, 2024 12:00 AM Laboratory - Chemistry Order LIVER FUNCTION BLOOD (SST-SERUM) [facility] Nov 11, 2024 12:00 AM Laboratory - Chemistry Order LIPID PANEL, NON FASTING BLOOD (SST-SERUM) [facility] Social History: Smoking Status (Most current) [...] took place. Date/Time Current Smoking Status Comment [facility] December 25, 2023 09:05 AM VA-TOBACCO NEVER USED [place] [facility] [place] [facility] Tobacco Use History This section includes a history of the smoking, or tobacco-related health factors, that were collected on or before the date of the Encounter. The data comes from the [place] facility where the Encounter took place. 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 [facility] [place] [facility] Dec 13, 2022 03:00 PM VA-TOBACCO USE MED NO [facility] [place] [facility] Dec 13, 2022 03:00 PM VA-TOBACCO USER EVERY DAY [facility] [place] [facility] Nov 17, 2021 10:00 AM VA-TOBACCO USE 30 YEARS OR MORE [facility] [place] [facility] Nov 17, 2021 10:00 AM VA-TOBACCO USE ADVICE [facility] [place] Nov 17, 2021 10:00 AM 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 [facility] [place] Nov 17, 2021 10:00 AM VA-TOBACCO USE MED NO [facility] Nov 17, 2021 10:00 AM VA-TOBACCO USE WI 30 MIN OF WAKEUP [facility] [place] [facility] Nov 17, 2021 10:00 AM VA-TOBACCO USER EVERY DAY [facility] Oct 14, 2013 12:55 PM V1-PT NOT INTERESTED IN QUIT TOBACCO USE [facility] May 07, 2013 05:04 PM CURRENT SMOKER trying to stop [facility] May 07, 2013 05:04 PM V1-PT DECLINES REF TO TOBACCO CESS PRGM [facility] May 07, 2013 05:04 PM V1-PT DECLINES TOBACCO CESSATION MEDS [facility] May 07, 2013 05:04 PM V1-PT READY TO QUIT TOBACCO USE [facility] Dec 03, 2012 08:23 AM V1-PT DECLINES REF TO TOBACCO CESS PRGM [facility] Dec 03, 2012 08:23 AM V1-PT DECLINES TOBACCO CESSATION MEDS [facility] Dec 03, 2012 08:23 AM V1-PT THINKING ABOUT QUIT TOBACCO USE [facility] Jun 05, 2012 08:45 AM CURRENT SMOKER 1/2ppd [facility] Jun 05, 2012 08:45 AM V1-PT DECLINES REF TO TOBACCO CESS PRGM [facility] Jun 05, 2012 08:45 AM V1-PT THINKING ABOUT QUIT TOBACCO USE [facility] Jun 05, 2012 08:45 AM V1-TOBACCO CESS MEDS NOT PRESCRIBED Vet wants to talk to his provider-He is nervous about taking meds to quit- but he is interested in [facility]itting [facility] Nov 25, 2011 09:14 AM V1-PT DECLINES REF TO TOBACCO CESS PRGM [facility] Nov 25, 2011 09:14 AM V1-PT DECLINES TOBACCO CESSATION MEDS [facility] Nov 25, 2011 09:14 AM V1-PT THINKING ABOUT QUIT TOBACCO USE [facility] May 06, 2011 01:02 PM CURRENT SMOKER [facility] May 06, 2011 01:02 PM V1-PT DECLINES TOBACCO CESSATION MEDS [facility] [place] May 06, 2011 01:02 PM V1-PT NOT INTERESTED IN QUIT TOBACCO USE [facility] [place] Sep 24, 2010 08:51 AM V1-PT DECLINES TOBACCO CESSATION MEDS [facility] [place] Sep 24, 2010 08:51 AM V1-PT THINKING ABOUT QUIT TOBACCO USE [facility] Mar 22, 2010 07:58 AM CURRENT SMOKER 1/2 ppd [facility] Feb 25, 2009 12:05 PM QUIT TOBACCO USE IN PAST YEAR [facility] [place] Aug 26, 2008 09:28 AM CURRENT SMOKER 1/2 ppd [facility] [place] Aug 26, 2008 09:28 AM V1-PT DECLINES REF TO TOBACCO CESS PRGM [facility] Aug 26, 2008 09:28 AM V1-PT READY TO QUIT TOBACCO USE [facility] [place] Dec 19, 2007 10:08 AM V1-PT DECLINES REF TO TOBACCO CESS PRGM [facility] Dec 19, 2007 10:08 AM V1-PT DECLINES TOBACCO CESSATION MEDS [facility] Dec 19, 2007 10:08 AM V1-PT THINKING ABOUT QUIT TOBACCO USE [facility] [place] Sep 11, 2007 11:10 AM CURRENT SMOKER [facility] [place] [facility] Sep 11, 2007 11:10 AM V1-PT DECLINES REF TO TOBACCO CESS PRGM [facility] Sep 11, 2007 11:10 AM V1-PT DECLINES TOBACCO CESSATION MEDS [facility] Sep 11, 2007 11:10 AM V1-PT THINKING ABOUT QUIT TOBACCO USE [facility] Feb 13, 2007 01:46 PM V1-PT DECLINES REF TO TOBACCO CESS PRGM [facility] Feb 13, 2007 01:46 PM V1-PT DECLINES TOBACCO CESSATION MEDS [facility] Feb 13, 2007 01:46 PM V1-PT THINKING ABOUT QUIT TOBACCO USE [facility] Oct 02, 2006 08:28 AM QUIT TOBACCO USE IN PAST YEAR 3 months ago [facility] Aug 19, 2005 08:33 AM QUIT TOBACCO USE IN PAST YEAR nonsmoker [facility] Sep 21, 2004 09:54 AM CURRENT SMOKER [facility] Sep 07, 2004 08:07 AM CURRENT SMOKER [facility] Sep 15, 2003 11:21 AM CURRENT SMOKER smokes one pk day [facility] Jul 23, 2003 01:57 PM CURRENT SMOKER [facility] Advance Directives: All historical and current [...] Apr 10, 2023 ADVANCE DIRECTIVE [facility] Apr 19, 2007 ADVANCE DIRECTIVE VICTORIA JOHNSON [facility] Encounter Notes: All associated encounter notes This section contains the clinical notes associated to the Encounter. Date/Time Encounter Note(s) Provider Source Oct 21, 2024 09:27 AM ADDENDUM: LOCAL TITLE: Addendum STANDARD TITLE: ADDENDUM DATE OF NOTE: OCT 21, 2024@09:27:40 ENTRY DATE: OCT 21, 2024@09:27:41 AUTHOR: ZACHARY ABBOTT EXP COSIGNER: URGENCY: STATUS: COMPLETED Adding provider to review and advise. /reginaldo/ ZACHARY ABBOTT RN REGISTERED NURSE Signed: 10/21/2024 09:27 Receipt Acknowledged By: 10/21/2024 10:24 /reginaldo/ LANA COLINDRES PSYCHIATRIST --- Original Document --- 10/21/24 WALK-IN NOTE PRIMARY CARE (T): <====Click to [...] encounter the below scheduled visits for the [place] were discussed and appointment reminder card was offered. 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 ON [place] 10/23/24 /reginaldo/ SHAHNAZ ESCAMILLA ADVANCE AUDIO TAPE LIBRARIAN Signed: 10/21/2024 09:21 Receipt Acknowledged By: * AWAITING SIGNATURE * MARCUS DOZIER 10/21/2024 09:27 /es/ ZACHARY ABBOTT RN REGISTERED NURSE ZACHARY ABBOTT Oct 21, 2024 09:19 AM PRIMARY CARE NOTE: LOCAL TITLE: WALK-IN NOTE PRIMARY CARE (T) STANDARD TITLE: PRIMARY CARE NOTE DATE OF NOTE: OCT 21, 2024@09:19 ENTRY DATE: OCT 21, 2024@09:19:16 AUTHOR: SAHHNAZ ESCAMILLA EXP COSIGNER: URGENCY: STATUS: COMPLETED WALK-IN NOTE PRIMARY CARE (T) Has ADDENDA <====Click to Start Advanced Medical Support [place] presents to the Primary Care clinic with the following request: [ X ]Medication Renewal/Refill [ ]Consultation with Team RN [ ]Symptoms [ ]Other The states they are: [ ]Waiting [ X ]Not Waiting No Walk in visit scheduled with PACT Nurse [ X ] At this encounter the [place]'s demographics were verified. [ X ] At this encounter the 's Insurance information was verified. [ X ] At this encounter the below scheduled visits for the were discussed and appointment reminder card was offered. 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
--- OUTSIDE RECORDS SUMMARY | 2024-10-30 09:58 | XMS_ITS | Encounter Summary ---
Author Name [facility] [place] Address [address] [place] [address] Care Team Providers [employer] Technical Director Name Role Phone TRACY VILLANUEVA Primary [...] PHI MEDEX BRONZ E December 19, 2013 [id number] GUSTAVO GUZMAN SR PATIENT [employer] CASUALTY MEDICARE SUPPLEMEN PHI MEDIC ARE SUPPL EMENT Jul 21, 2007 NONE [id number] Edgar GUZMAN PATIENT BCBS ID MEDICARE SUPPLEMEN PHI MEDEX BRONZ E December 19, 2013 [id number] [phone] GUSTAVO GUZMAN SR PATIENT [place] MEDICARE SUPPLEMEN PHI MEDEX BRONZ E December 19, 2013 [id number] [phone] FILEMONEEdgar [place] PATIENT MEDICARE (WNR) MEDICARE (M) PART A Oct 19, 2004 PART A [id number] Edgar GUZMAN [place] PAT[place]ICARE ([place]NR) MEDICARE (M) PART B Oct 19, 2004 PART B [id number] [phone] Edgar GUZMAN [place] PAT[place] MEDICARE ([place]) MEDICARE (M) PART A Oct 19, 2004 PART A [id number] FILEMONEEdgar [place] PAT[place] MEDICARE (WNR) MEDICARE (M) PART B Oct 19, 2004 PART B [id number] Edgar GUZMAN [place] PAT[place]ICARE ([place]) MEDICARE (M) PART B Oct 19, 2004 PART B [id number] [phone] Edgar GUZMAN [place] PAT[place]ICARE ([place]) MEDICARE () PART A Oct 19, 2004 PART A [id number] [id number] Edgar GUZMAN [place] PAT[place] MEDICARE ([place]NR) MEDICARE () PART A Oct 19, 2004 PART A [id number] [phone] Edgar GUZMAN [place] PAT[place] MEDICARE ([place]) MEDICARE () PART B Oct 19, 2004 PART B [id number] FILEMONEEdgar [place] PAT[place] MEDIC[place] ([place]) MEDICARE () PART A Oct 19, 2004 PART A [id number] [phone] Edgar GUZMAN [place] PAT[place] MEDICARE ([place]) MEDICARE (M) PART B Oct 19, 2004 PART B [id number] [phone] Edgar GUZMANN PATIENT Selected Encounter This section includes the information on record at [place] for the Encounter. Date/Time Encounter Type Encounter Description Reason Provider Source Aug 05, 2024 09:45 AM OFFICE O/P EST LOW 20 MIN PAIN CLINIC ICD-10-CM G89.4 Chronic pain syndrome ERROL,S ETH B IHE Encounter Template Text not used by [place] Assessments - Encounter Diagnoses This section includes the primary and secondary diagnoses documented for the Encounter. Date/Time Primary/Secondary Diagnosis Diagnosis Name Provider Source Aug 05, 2024 10:05 AM PRIMARY Chronic pain syndrome ERROL,S ETH B [place] [facility] [place] [facility] Aug 05, 2024 10:05 AM SECONDARY Infarction of spleen ERROL,S ETH B [place] [facility] [place] [facility] Plan of Treatment: Future Appointments (+ 6 months) and Future Tests (+/- 45 days) The Plan of Treatment section includes future care activities for the patient from all [place] [facility]. This section includes future appointments and future orders which are active, pending or scheduled. Future Appointments This section includes appointments that were scheduled to occur 6 months from the date of the Encounter, up to a maximum of 20 appointments. The data comes from all [place] treatment facilities. Appointment Date/Time Appointment Type Appointme nt Facility Name Aug 28, 2024 10:00 AM AMBULATORY - MEDICINE [facility] [place] [facility] Aug 28, 2024 10:30 AM AMBULATORY - MEDICINE [facility] [place] [facility] Sep 06, 2024 11:00 AM AMBULATORY - MEDICINE [facility] [place] [facility] Sep 18, 2024 11:00 AM AMBULATORY - NONE [facility] [place] [facility] Sep 26, 2024 12:30 PM [facility]ULATORY - MEDICINE [facility] Oct 08, 2024 09:30 AM AMBULATORY - PSYCHIATRY [facility] [place] [facility] Oct 14, 2024 12:30 PM AMBULATORY - MEDICINE [facility] [place] [facility] Oct 15, 2024 07:45 AM AMBULATORY - NONE [facility] [place] [facility] Oct 21, 2024 09:30 AM AMBULATORY - MEDICINE [facility] Oct 30, 2024 08:00 AM AMBULATORY - MEDICINE [facility] [place] [facility] Nov 11, 2024 01:30 PM AMBULATORY - MEDICINE [facility] [place] [facility] Nov 12, 2024 10:30 AM AMBULATORY - PSYCHIATRY [facility] [place] [facility] Nov 29, 2024 10:00 AM AMBULATORY - MEDICINE [facility] [place] [facility] Jan 24, 2025 11:00 AM AMBULATORY - MEDICINE [facility] Lab Results: +/- 30 days [...] - Unit Interpretation Reference Range Comment Aug 29, 2024 11:03 AM [facility] C DIFF TOX B GENE PCR Specimen Type: FECES Comment: The [employer] C. difficile/Epi assay is a real time PCR assay on the [employer] GeneXpert System for the rapid detection of [...] on C. difficile testing. H* INDICATES A [place] ALERT HAS BEEN SENT Ordering Provider: GALDINO KIRBY Report Released Date/Time: Aug 28, 2024 10:23 AM Reporting Lab: [facility] [address] [facility] [address] Performing Lab: [facility] [address] [address] C DIFF TOX B GENE PCR Negative Negative Aug 29, 2024 10:57 AM [facility] GASTROINTESTINAL PANEL (WRLED) Specimen Type: FECES Comment: The Gastrointestina l (GI) Panel is an FDA (IVD) approved qualitative multiplex PCR assay on the [employer]way System for testing on raw stool specimens transferred into [employer]. It is indicated as an aid in the diagnosis of specific agents of gastrointestina l illness and results are meant to be used in conjunction with other clinical, laboratory, and epidemiological data. Positive results do not rule out co infection with organisms not included in the ApiFix GI Panel. The agent detected may not [...] specimen collection, handling, transportation, storage, and preparation. [employer] Ordering Provider: GALDINO KIRBY Report Released Date/Time: Aug 28, 2024 10:23 AM Reporting Lab: [facility] [facility]ST. [facility] [address] [facility] [address] Performing Lab: [place] [employer] [facility]ather[facility] shoply [facility] [address] [address] CAMPYLOBACTER SP. Not Detected Not Detected PLESIOMONAS SHIGELLOIDES Not Detected Not Detected SALMONELLA SP. Not Detected No t Detected VIBRIO SP. Not Detected Not Detected VIBRIO CHOLERAE Not Detected N ot Detected YERSINIA ENTEROCOLITICA PCR Not Detected Not Detected ENTEROAGGREGATI VE E. COLI (EAEC) Not Detected Not Detected ENTEROPATHOGENI C E. COLI (EPEC) Not Detected Not Detected ENTEROTOXIGENIC E. COLI (ETEC) LT/ST Not Detected Not Detected SHIGA-LIKE TOXIN-PRODUCING E. COLI Not Detected Not Detected SHIGELLA/ENTERO INVASIVE E. COLI (EIEC) Not Detected Not Detected ADENOVIRUS F 40/41 Not Detected Not Detected ASTROVIRUS Not Detected Not Detected NOROVIRUS GI/GII PCR Not Detected Not Detected ROTAVIRUS A PCR Not Detected N ot Detected SAPOVIRUS (GENOGROUPS I,II,IV&V) Not Detected Not Detected CRYPTOSPORIDIUM PCR Not Detected Not Detected CYCLOSPORA CAYETANENSIS Not Detected Not Detected ENTAMOEBA HISTOLYTICA PCR Not Detected Not Detected GIARDIA LAMBLIA PCR Not Detected Not Detected Aug 28, 2024 10:49 AM [facility] BASIC METABOLIC PANEL (non-fasting) Specimen Type: SERUM No comment entered. Ordering Provider: GALDINO KIRBY Report Released Date/Time: Aug 28, 2024 10:23 AM Reporting Lab: [address] [address] Performing Lab: [facility] [address] [facility] [address] UREA NITROGEN 16 mg/dL 7-25 GLUCOSE 212 mg/dL H 65-100 SODIUM 137 mmol/L 135-145 POTASSIUM 4.4 mmol/L 3.5-5.0 CHLORIDE 102 mmol/L 100-110 CO2 25 meq/L 20-30 CREATININE, Serum 0.76 mg/dL 0.50-1.40 eGFR(CKD-EPI 2020) 88 mL/min >60 Aug 28, 2024 10:49 AM [facility] URINALYSIS CLEAN CATCH Specimen Type: URINE Comment: If Glucose = >500 and Ketones are positive, please alert the Physician. Critical result acknowledged. DR KIRBY 08/28/24@1118 BY Ordering Provider: GALDINO KIRBY Report Released Date/Time: Aug 28, 2024 10:23 AM Reporting Lab: [address] [address] Performing Lab: [address] [address] UA COLOR Yellow Yellow UA APPEARANCE Clear Clear UA GLUCOSE 1,000 mg/dL Negative UA KETONES TRACE mg/dL Negative UA BLOOD NEGATIVE mg/dL Negative UA PROTEIN 30 mg/dL Negative UA NITRITE NEGATIVE mg/dL Negative UA BILIRUBIN NEGATIVE mg/dL Negative UA SPECIFIC GRAVITY 1.038 H 1.016-1.02 2 UA pH 5.5 5.0-9.0 UA UROBILINOGEN 3 mg/dL <2.0 UA LEUKOCYTE NEGATIVE Negative Aug 28, 2024 10:49 AM [facility] CBC AND DIFF (AUTO) Specimen Type: BLOOD No comment entered. Ordering Provider: GALDINO KIRBY Report Released Date/Time: Aug 28, 2024 10:23 AM Reporting Lab: [facility] [address] [address] Performing Lab: [facility] [address] [facility] [address] WBC 6.48 10*3/uL 4.50-11.00 RBC 4.37 10*6/uL [...] 0.6 0.0-0.7 IMMATURE GRAN, ABS 0.04 10*3/uL 0.00-0.06 NRBC % 0.0 0.0-0.0 NRBC, ABS 0.00 10*3/uL 0.00-0.00 Aug 01, 2024 08:18 AM [facility] LIVER FUNCTION Specimen Type: SERUM No comment entered. Ordering Provider: TRACY VILLANUEVA Report Released Date/Time: Jul 30, 2024 09:45 AM Reporting Lab: [facility] [address] [address] Performing Lab: [address] [address] PROTEIN,TOTAL 7.2 g/dL 6.0-8.3 ALBUMIN 3.9 g/dL 3.5-5.0 ALKALINE PHOSPHATASE 78 U/L 40-150 AST 16 U/L 5-34 ALT 18 U/L BILIRUBIN, TOTAL 0.8 mg/dL 0.2-1.2 Aug 01, 2024 08:18 AM [facility] BASIC METABOLIC PANEL (non-fasting) Spe cimen Type: SERUM No comment entered. Ordering Provider: TRACY VILLANUEVA Report Released Date/Time: Jul 30, 2024 09:45 AM Reporting Lab: [address] [address] Performing Lab: [address] [address] UREA NITROGEN 14 mg/dL 7-25 GLUCOSE 218 mg/dL H 65-100 SODIUM 136 mmol/L 135-145 POTASSIUM 4.1 mmol/L 3.5-5.0 CHLORIDE 101 mmol/L 100-110 CO2 26 meq/L 20-30 CREATININE, Serum 0.77 mg/dL 0.50-1.40 eGFR(CKD-EPI 2020) 88 mL/min >60 Aug 01, 2024 08:18 AM [facility] HEMOGLOBIN A1C PANEL Specimen Type: BLOOD Comment: Values obtained from A1C measurements can vary. For atypical A1C assays, a reported value of 7.0 could actually be between 6.72 and 7.28 if measured by a reference method. A reported value of 9.0 could actually be between 8.73 and 9.27. Ref: http://www.ngsp .org/CAPdata.as p Ordering Provider: TRACY VILLANUEVA Report Released Date/Time: Jul 30, 2024 09:45 AM Reporting Lab: [address] [address] Performing Lab: [address] [address] HEMOGLOBIN A1C 8.1 H 4.0-5.6 Aug 01, 2024 08:18 AM [facility] LIPID PANEL, NON FASTING Specimen Type: SERUM No comment entered. Ordering Provider: TRACY VILLANUEVA Report Released Date/Time: Jul 30, 2024 09:45 AM Reporting Lab: [facility] [place] [facility] [address] [facility] [address] Performing Lab: [facility] [place] [facility] [address] [facility] [address] CHOLESTEROL 155 mg/dL TRIGLYCERIDE 78 mg/dL 0-150 [...] AM VA-TOBACCO NEVER USED [place] [facility] Tobacco Use History This section includes a history of the smoking, or tobacco-related health factors, that were collected on or before the date of the Encounter. The data comes from the [place] facility where the Encounter took place. 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 [facility] [place] [facility] Dec 13, 2022 03:00 PM VA-TOBACCO USE MED NO [facility] [place] [facility] Dec 13, 2022 03:00 PM VA-TOBACCO USER EVERY DAY [facility] [place] [facility] Nov 17, 2021 10:00 AM VA-TOBACCO USE 30 YEARS OR MORE [facility] [place] [facility] Nov 17, 2021 10:00 AM VA-TOBACCO USE ADVICE [facility] [place] [facility] Nov 17, 2021 10:00 AM 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 [facility] Nov 17, 2021 10:00 AM VA-TOBACCO USE MED NO [facility] Nov 17, 2021 10:00 AM VA-TOBACCO USE WI 30 MIN OF WAKEUP [facility] Nov 17, 2021 10:00 AM VA-TOBACCO USER EVERY DAY [facility] Oct 14, 2013 12:55 PM V1-PT NOT INTERESTED IN QUIT TOBACCO USE [facility] May 07, 2013 05:04 PM CURRENT SMOKER trying to stop [facility] May 07, 2013 05:04 PM V1-PT DECLINES REF TO TOBACCO CESS PR[facility] May 07, 2013 05:04 PM V1-PT DECLINES TOBACCO CESSATION MEDS [facility] May 07, 2013 05:04 PM V1-PT READY TO QUIT TOBACCO USE [facility] Dec 03, 2012 08:23 AM V1-PT DECLINES REF TO TOBACCO CESS PRGM [facility] Dec 03, 2012 08:23 AM V1-PT DECLINES TOBACCO CESSATION MEDS [facility] Dec 03, 2012 08:23 AM V1-PT THINKING ABOUT QUIT TOBACCO USE [facility] Jun 05, 2012 08:45 AM CURRENT SMOKER 1/2ppd [facility] Jun 05, 2012 08:45 AM V1-PT DECLINES REF TO TOBACCO CESS [facility] Jun 05, 2012 08:45 AM V1-PT THINKING ABOUT QUIT TOBACCO USE [facility] Jun 05, 2012 08:45 AM V1-TOBACCO CESS MEDS NOT PRESCRIBED Vet wants to talk to his provider-He is nervous about taking meds to quit- but he is interested in quitting [facility] Nov 25, 2011 09:14 AM V1-PT DECLINES REF TO TOBACCO CESS PRGM [facility] Nov 25, 2011 09:14 AM V1-PT DECLINES TOBACCO CESSATION MEDS [facility] [place] [facility] Nov 25, 2011 09:14 AM V1-PT THINKING ABOUT QUIT TOBACCO USE [facility] [place] [facility] May 06, 2011 01:02 PM CURRENT SMOKER [facility] [place] [facility] May 06, 2011 01:02 PM V1-PT DECLINES TOBACCO CESSATION MEDS [facility] [place] [facility] May 06, 2011 01:02 PM V1-PT NOT INTERESTED IN QUIT TOBACCO USE [facility] [place] [facility] Sep 24, 2010 08:51 AM V1-PT DECLINES TOBACCO CESSATION MEDS [facility] [place] [facility] Sep 24, 2010 08:51 AM V1-PT THINKING ABOUT QUIT TOBACCO USE [facility] [place] [facility] Mar 22, 2010 07:58 AM CURRENT SMOKER 1/2 ppd [facility] [place] [facility] Feb 25, 2009 12:05 PM QUIT TOBACCO USE IN PAST YEAR [facility] [place] [facility] Aug 26, 2008 09:28 AM CURRENT SMOKER 1/2 ppd [facility] [place] [facility] Aug 26, 2008 09:28 AM V1-PT DECLINES REF TO TOBACCO CESS PRGM [facility] [place] [facility] Aug 26, 2008 09:28 AM V1-PT READY TO QUIT TOBACCO USE [facility] [place] [facility] Dec 19, 2007 10:08 AM V1-PT DECLINES REF TO TOBACCO CESS [facility] [place] [facility] Dec 19, 2007 10:08 AM V1-PT DECLINES TOBACCO CESSATION MEDS [facility] [place] [facility] Dec 19, 2007 10:08 AM V1-PT THINKING ABOUT QUIT TOBACCO USE [facility] [place] [facility] Sep 11, 2007 11:10 AM CURRENT SMOKER [facility] [place] [facility] Sep 11, 2007 11:10 AM V1-PT DECLINES REF TO TOBACCO CESS PRGM [facility] [place] [facility] Sep 11, 2007 11:10 AM V1-PT DECLINES TOBACCO CESSATION MEDS [facility] [place] [facility] Sep 11, 2007 11:10 AM V1-PT THINKING ABOUT QUIT TOBACCO USE [facility] [place] [facility] Feb 13, 2007 01:46 PM V1-PT DECLINES REF TO TOBACCO CESS PRGM [facility] Feb 13, 2007 01:46 PM V1-PT DECLINES TOBACCO CESSATION MEDS [facility] Feb 13, 2007 01:46 PM V1-PT THINKING ABOUT QUIT TOBACCO USE [facility] Oct 02, 2006 08:28 AM QUIT TOBACCO USE IN PAST YEAR 3 months ago [facility] Aug 19, 2005 08:33 AM QUIT TOBACCO USE IN PAST YEAR nonsmoker [facility] Sep 21, 2004 09:54 AM CURRENT SMOKER [facility] Sep 07, 2004 08:07 AM CURRENT SMOKER [facility] Sep 15, 2003 11:21 AM CURRENT SMOKER smokes one pk day [facility] Jul 23, 2003 01:57 PM CURRENT SMOKER [facility] Advance Directives: All historical and current [...] Source Apr 10, 2023 ADVANCE DIRECTIVE [facility] Apr 19, 2007 ADVANCE DIRECTIVE [...] COMPLETED CURRENT Elijah Rebolledo in next to [place]. Stopped [place] in April due to issues. No pain, doing well. 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 Guzman is an 82 year old [place] Veterean with pain in his left abdomen [...] formulated the plan through shared medical-decision making. [place] repeated the plan back to me and [...] 19. Disorder of lumbar disc (SNOMED CT 617921601) 20. Depression (SNOMED CT 61881350) 21. Dry Eye Syndromes * 22. 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 Localised, primary osteoarthritis 24. Prostate, Malign Neoplasm 25. Cataract, Cortical (Senile) 26. 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 Mixed hyperlipidaemia 28. Benign essential hypertension 29. POLYPS, COLON/LG BOWEL (BENIGN MAEGAN 30. Tobacco use (SNOMED CT 551471325) Appointment length includes time with [place], completing clinical reminders, reviewing relevant information in EMR, review of PDMP, ordering appropriate tests, prescribing medications, coordinating care, and completing the medical record. Any quotations may not be exact and are intended to convey the effect of what the [place] was saying. [place] paymio (Datapipe) Standard Documentation [facility] Clinician Resources Only: E911 (Emergency Call Relay Center): [phone] National Veterans Crisis Line - 988 then press #1. [facility] Suicide Coordinator [phone], Ext. [phone]; Back-up Ext. [phone] [place] Police, [place], [place] [phone] Introduction: Visit is being conducted by [place] paymio. identified with 2 identifiers: [X] Full Name [X] Date of [ ] [place] ID Card Emergency Plan: [place] confirmed and/or provided the following information in case of emergency or technology failure. PATIENT PHONE - PHONE NUMBER [CELLULAR] - Is patient phone number correct, if not, enter below: [place]'s phone number: GUSTAVO GUZMAN [address], [address] 's present location and address for appointment: Home [place]'s emergency contact name and phone number: Listed [place] reported that location is private and safe: Yes Informed Consent: [place] informed of the risks and benefits of Telehealth video care. [place] has the right to refuse video services. If refuses video visit, a [id number] visit will be scheduled. [place] verbalized consent for this video visit: Yes provided consent for any other persons present for visit: Yes If yes, who and relationship to patient:Elijah Rebolledo Secure visit: Visit was locked for security and privacy:Yes /reginaldo/ JOSE NORTON MD PHYSICIAN Signed: 08/05/2024 10:05 JOSE NORTON [place] [facility]
--- OUTSIDE RECORDS SUMMARY | 2024-10-30 09:58 | XMS_ITS | Encounter Summary ---
Author Name [facility] [place] [facility] [place] Address [address] [place] [address] Care Team Providers Care Metal Numerical Control Programmer Name Role Phone TRACY VILLANUEVA Primary Care [...] PHI MEDEX BRONZ E December 19, 2013 [id number] [phone] GUSTAVO ARAMBULA SR PATIENT BANKERS LIFE & CASUALTY MEDICARE SUPPLEMEN PHI MEDIC ARE SUPPL EMENT Jul 21, 2007 NONE [id number] Edgar ARAMBULA PATIENT [place] MED[place] SUPPLEMEN PHI MEDEX BRONZ E December 19, 2013 [id number] [phone] GUSTAVO ARAMBULA SR PATIENT [place] OF [place] (BLU[place]ARD) MEDICARE SUPPLEMEN PHI MEDEX BRONZ E December 19, 2013 [id number] FILEMONEEdgar [place] PATIENT MEDICARE (WNR) MEDICARE (M) PART A Oct 19, 2004 PART A [id number] FILEMONEEdgar [place] PAT[place] MEDICARE (WNR) MEDICARE (M) PART B Oct 19, 2004 PART B [id number] 90A FILEMONEEdgar [place] PAT[place] MEDICARE (WNR) MEDICARE (M) PART A Oct 19, 2004 PART A [id number] SEVABIEEdgar [place] PATIENT MEDICARE (WNR) MEDICARE (M) PART B Oct 19, 2004 PART B [id number] FILEMONEEdgar [place] PATIENT MEDICARE (WNR) MEDICARE (M) PART A Oct 19, 2004 PART A [id number] [phone] SEVIGNEEdgar [place] PATIENT MEDICARE (WNR) MEDICARE () PART B Oct 19, 2004 PART B [id number] 90A SEVIGNEEdgar [place] PAT[place] MEDICARE (WNR) MEDICARE () PART A Oct 19, 2004 PART A [id number] [phone] FILEMONEEdgar [place] PATIENT MEDICARE (WNR) MEDICARE () PART B Oct 19, 2004 PART B [id number] 90A SEVABIEEdgar [place] PAT[place] MEDICARE (WNR) MEDICARE () PART A Oct 19, 2004 PART A [id number] [phone] Edgar ARAMBULA [place] PAT[place] MEDICARE (WNR) MEDICARE () PART B Oct 19, 2004 PART B [id number] [phone] SEVIGNEEdgar [place] PATIENT Selected Encounter This section includes the information on record at [facility] for the Encounter. Date/Time Encounter Type Encounter Description Reason Provider Source Jul 05, 2024 09:00 AM HEARING SERVICE AUDIOLOGY ICD-10-CM Z46.1 Encounter for fitting and adjustment of hearing aid MATTHEW MULLEN Encounter Template Text not used by [facility] Assessments - Encounter Diagnoses This section includes the primary and secondary diagnoses documented for the Encounter. Date/Time Primary/Secondary Diagnosis Diagnosis Name Provider Source Jul 05, 2024 09:53 AM PRIMARY Encounter for fitting and adjustment of hearing aid MATTHEW MULLEN [facility] [place] [facility] Jul 05, 2024 09:53 AM SECONDARY Sensorineural hearing loss, bilateral MATTHEW MULLEN [facility] [place] [facility] Plan of Treatment: Future Appointments (+ 6 months) and Future Tests (+/- 45 days) The Plan of Treatment section includes future care activities for the patient [facility]. This section includes future appointments and [...] [facility] [place] [facility] Aug 28, 2024 10:00 AM AMBULATORY - MEDICINE [place] [facility] [place] [facility] Aug 28, 2024 10:30 AM AMBULATORY - MEDICINE [facility] [facility] Sep 06, 2024 11:00 AM AMBULATORY - MEDICINE [place] [facility] [facility] Sep 18, 2024 11:00 AM AMBULATORY - NONE [facility] [place] [facility] Sep 26, 2024 12:30 PM [facility] MEDICINE [facility] Oct 08, 2024 09:30 AM AMBULATORY - PSYCHIATRY [facility] [place] [facility] Oct 14, 2024 12:30 PM AMBULATORY - MEDICINE [facility] [facility] Oct 15, 2024 07:45 AM AMBULATORY - NONE [facility] [place] [facility] Oct 21, 2024 09:30 AM AM[facility]ULATORY - MEDICINE [facility] Oct 30, 2024 08:00 AM AMBULATORY - MEDICINE [place] [facility] [facility] Nov 11, 2024 01:30 PM AMBULATORY - MEDICINE [facility] [facility] Nov 12, 2024 10:30 AM [facility]RY [facility] [place] [facility] Nov 29, 2024 10:00 AM AMBULATORY - MEDICINE [facility] Lab Results: +/- 30 days of the encounter This section includes the Chemistry and Hematology Lab Results on record with [place] for the patient. Radiology Reports and Pathology Reports are provided separately, in subsequent sections. Lab Results This section contains the Chemistry/Hematology Results that were resulted 30 days before or 30 daysafter the date of the Encounter. Date/Time Source Result Type Result - Unit Interpretation Reference Range Comment Aug 01, 2024 08:18 AM [place] BASIC METABOLIC PANEL (non-fasting) Spe cimen Type: SERUM No comment entered. Ordering Provider: TRACY VILLANUEVA Report Released Date/Time: Jul 30, 2024 09:45 AM Reporting Lab: [address] [address] Performing Lab: [address] [address] UREA NITROGEN 14 mg/dL 7-25 GLUCOSE 218 mg/dL H 65-100 SODIUM 136 mmol/L 135-145 POTASSIUM 4.1 mmol/L 3.5-5.0 CHLORIDE 101 mmol/L 100-110 CO2 26 meq/L 20-30 CREATININE, Serum 0.77 mg/dL 0.50-1.40 eGFR(CKD-EPI 2020) 88 mL/min >60 Aug 01, 2024 08:18 AM [facility] HEMOGLOBIN A1C PANEL Specimen Type: BLOOD Comment: [...] Jul 30, 2024 09:45 AM Reporting Lab: [address] [address] Performing Lab: [address] [address] HEMOGLOBIN A1C 8.1 H 4.0-5.6 Aug 01, 2024 08:18 AM [facility] LIPID PANEL, NON FASTING Specimen Type: SERUM No comment entered. Ordering Provider: TRACY VILLANUEVA Report Released Date/Time: Jul 30, 2024 09:45 AM Reporting Lab: [facility] [address] [facility] [address] Performing Lab: [address] [address] CHOLESTEROL 155 mg/dL TRIGLYCERIDE 78 mg/dL 0-150 LDL calculated 85 mg/dL 0-129 CHOL/HDL 2.9 HDL CHOLESTEROL 54 mg/dL 40-60 Aug 01, 2024 08:18 AM [facility] LIVER FUNCTION Specimen Type: SERUM No comment entered. Ordering Provider: TRACY VILLANUEVA Report Released Date/Time: Jul 30, 2024 09:45 AM Reporting Lab: [address] [address] Performing Lab: [address] [address] PROTEIN,TOTAL 7.2 g/dL 6.0-8.3 ALBUMIN 3.9 g/dL 3.5-5.0 ALKALINE PHOSPHATASE 78 U/L 40-150 AST 16 U/L 5-34 ALT 18 U/L BILIRUBIN, TOTAL 0.8 mg/dL 0.2-1.2 Social History: Smoking Status (Most [...] took place. Date/Time Current Smoking Status Comment [facility] it December 25, 2023 09:05 AM VA-TOBACCO NEVER USED [facility] Tobacco Use History This section includes a history of the smoking, or tobacco-related health factors, that were collected on or before the date of the Encounter. The data comes from the [place] facility where the Encounter took place. Date/Time Smoking Status/Tobac co Use Comment Facility Dec 13, 2022 03:00 PM VA-TOBACCO DOESNT USE WI 30 MIN WAKEUP [facility] Dec 13, 2022 03:00 PM VA-TOBACCO USE 30 YEARS OR MORE [facility] [place] [facility] Dec 13, 2022 03:00 PM VA-TOBACCO USE ADVICE [facility] [place] [facility] Dec 13, 2022 03:00 PM VA-TOBACCO USE DELIVERY STOCK CLERK NO [facility] [place] [facility] Nov 17, 2021 10:00 AM VA-TOBACCO USE DELIVERY STOCK CLERK NO [facility] [place] [facility] Nov 17, 2021 10:00 AM VA-TOBACCO USE MED NO [facility] [place] [facility] Nov 17, 2021 10:00 AM VA-TOBACCO USE WI 30 MIN OF WAKEUP [place] [facility] [facility] Nov 17, 2021 10:00 AM VA-TOBACCO USER EVERY DAY [place] [facility] [facility] Oct 14, 2013 12:55 PM V1-PT NOT INTERESTED IN QUIT TOBACCO USE [facility] [place] [facility] May 07, 2013 05:04 PM CURRENT SMOKER trying to stop [facility] [place] [facility] [...] ABOUT QUIT TOBACCO USE [facility] [place] [facility] Jun 05, 2012 08:45 AM CURRENT SMOKER 1/2ppd [facility] [place] [facility] Jun 05, 2012 08:45 AM V1-PT DECLINES REF TO TOBACCO CESS PRGM [facility] [place] [place] [facility] Jun 05, 2012 08:45 AM V1-PT THINKING ABOUT QUIT TOBACCO USE [facility] [place] [facility] Jun 05, 2012 08:45 AM V1-TOBACCO CESS MEDS NOT PRESCRIBED Vet wants to talk to his provider-He is nervous about taking meds to quit- but he is interested in quitting [facility] [place] [facility] Nov 25, 2011 09:14 AM V1-PT DECLINES REF TO TOBACCO CESS PRGM [facility] Nov 25, 2011 09:14 AM V1-PT DECLINES TOBACCO CESSATION MEDS [facility] Nov 25, 2011 09:14 AM V1-PT THINKING ABOUT QUIT TOBACCO USE [facility] [place] [place] [facility] May 06, 2011 01:02 PM CURRENT SMOKER [facility] [place] [place] [facility] May 06, 2011 01:02 PM V1-PT DECLINES TOBACCO CESSATION MEDS [facility] May 06, 2011 01:02 PM V1-PT NOT INTERESTED IN QUIT TOBACCO USE [facility] Sep 24, 2010 08:51 AM V1-PT DECLINES TOBACCO CESSATION MEDS [facility] Sep 24, 2010 08:51 AM V1-PT THINKING ABOUT QUIT TOBACCO USE [facility] [place] [facility] Mar 22, 2010 07:58 AM CURRENT SMOKER 1/2 ppd [facility] [place] [facility] Feb 25, 2009 12:05 PM QUIT TOBACCO USE IN PAST YEAR [facility] [place] [facility] Aug 26, 2008 09:28 AM CURRENT SMOKER 1/2 ppd [facility] [place] [facility] Aug 26, 2008 09:28 AM V1-PT DECLINES REF TO TOBACCO CESS PRGM [facility] [place] [place] [facility] Aug 26, [...] V1-PT THINKING ABOUT QUIT TOBACCO USE [facility] [place] [facility] Feb 13, 2007 01:46 PM V1-PT DECLINES REF TO TOBACCO CESS PRGM [facility] [place] [facility] Feb 13, 2007 01:46 PM V1-PT DECLINES TOBACCO CESSATION MEDS [facility] Feb 13, 2007 01:46 PM V1-PT THINKING ABOUT QUIT TOBACCO USE [facility] [place] [facility] Oct 02, 2006 08:28 AM QUIT TOBACCO USE IN PAST YEAR 3 months ago [facility] [place] [place] [facility] Aug 19, 2005 08:33 AM QUIT TOBACCO USE IN PAST YEAR nonsmoker [facility] [place] [facility] Sep 21, 2004 09:54 AM CURRENT SMOKER [place] [facility] [place] [facility] Sep 07, 2004 08:07 AM CURRENT SMOKER [facility] [place] [facility] Sep 15, 2003 11:21 AM CURRENT SMOKER smokes one pk day [facility] [place] [facility] Jul 23, 2003 01:57 PM CURRENT SMOKER [facility] Advance Directives: All historical and current [...] Apr 10, 2023 ADVANCE DIRECTIVE ESSIE STARK [place] [facility] [place] [facility] Apr 19, 2007 ADVANCE DIRECTIVE VICTORIA [...] AUTHOR: MATTHEW MULLEN COSIGNER: URGENCY: STATUS: COMPLETED AUDIOLOGY CLINIC Has ADDENDA Diagnosis: bilateral sensorineural hearing loss Hearing Aid Fitting: SUBJECTIVE (S): The was seen for hearing aid fitting and issuance. S/He had previously been evaluated and found to exhibit significant hearing loss for which amplification was recommended. How does the patient/client best learn? verbal instruction, demonstration Does the patient/client have any cultural and quaker beliefs, emotional barriers, physical or cognitive limitations, and communication barriers which may impact his/her ability to learn? no Desire and motivation to learn? Good OBJECTIVE (O): Physical fit of earmolds/receivers and domes/hearing aids was good. verified comfort. Verification of an appropriate acoustic response was obtained using Real Ear measurements (speech mapping) and NAL-NL2 targets. The reported good subjective benefit as well. Feedback food service manager was run. Hearing aids were found to be meeting targets adequately through 3k and MPO was not exceeding estimated UCL. Settings stored in KADEN. ASSESSMENT (A): The following device(s) was/were issued: Make: Phonak Model: Audeo L90 RL RICs Serial Numbers: [id number] Battery size: RECHARGEABLE Trial Period ends: 12-07-24 Domes/wax guards, etc.: cerustop Earmold Information: c shell clear, lucite, canal lock Research Chief Engineer size/power: 2M Program Settings (VC, Programs, Buttons): [...] and reports confidence/understanding in all items reviewed. [place] was given written reference materials today. The [place] was informed of and agreed to [place] policy on hearing aid issuance: Users are responsible for the maintenance and security of their devices. Determination of need to replace a hearing aid is made by the [place] flame channeler. Hearing aids will not be replaced in [...] Education provided to: P Response to Education: MATT MEJIA, CATIE Whitaker Patient P Family F Significant Other SO Verbalizes Understanding VU Returns Demonstration RD Performs Independently PI Lacks Comprehension LC Refused Education RE Not Applicable NA /es/ Wes DE, [facility]A STAFF DAIRY FROZEN MANAGER Signed: 07/05/2024 09:57 10/24/2024 ADDENDUM STATUS: COMPLETED returned IOI-ORO Outcome Measure to the clinic via mail with an overall score of 25 Based on this score: i. No follow-up call is indicated _XX_ ii. Follow-up call is indicated and fitting clinician will be notified __ /es/ ESTEFANIA SMITH Audiology Health Operations Business Partner Signed: 10/24/2024 13:12 MATTHEW MULLEN [facility]
--- OUTSIDE RECORDS SUMMARY | 2024-10-30 09:58 | XMS_ITS ---
[place] MED NUTRITION INDIV SUBSEQ [place] Encounter Summary Created on: October 30, 2024 GUSTAVO ARAMBULA : 1940 Sex: Male Author Name [facility] [place] Address [address] [place] [address] Care Team Providers Care Motorcycle Designer Name Role Phone TRACY VILLANUEVA Primary Care [...] PHI MEDEX BRONZ E December 19, 2013 [id number] GUSTAVO ARAMBULA SR PATIENT BANKERS LIFE & CASUALTY MEDICARE SUPPLEMEN PHI MEDIC ARE SUPPL EMENT Jul 21, 2007 NONE [id number] [phone] Edgar ARAMBULA PATIENT [place] SUPPLEMEN PHI MEDEX BRONZ E December 19, 2013 [id number] GUSTAVO ARAMBULA SR PATIENT [place] MEDICARE SUPPLEMEN PHI MEDEX BRONZ E December 19, 2013 [id number] [phone] Edgar ARAMBULAN PATIENT MEDICARE (WNR) MEDICARE () PART A Oct 19, 2004 PART A [id number] [phone] Edgar ARAMBULA [place] PATIENT MEDICARE (WNR) MEDICARE (M) PART B Oct 19, 2004 PART B [id number] Edgar ARAMBULA [place] PATIENT MEDICARE (WNR) MEDICARE (M) PART A Oct 19, 2004 PART A [id number] [phone] Edgar ARAMBULAN PATIENT MEDICARE (WNR) MEDICARE () PART B Oct 19, 2004 PART B [id number] Edgar ARAMBULAN PATIENT MEDICARE (WNR) MEDICARE () PART A Oct 19, 2004 PART A [id number] [phone] Edgar ARAMBULAN PATIENT MEDICARE (WNR) MEDICARE () PART B Oct 19, 2004 PART B [id number] [phone] Edgar ARAMBULAN PATIENT MEDICARE (WNR) MEDICARE () PART A Oct 19, 2004 PART A [id number] Edgar ARAMBULA PATIENT MEDICARE (WNR) MEDICARE () PART B Oct 19, 2004 PART B [id number] 90A Edgar ARAMBULAN PATIENT MEDICARE (WNR) MEDICARE () PART A Oct 19, 2004 PART A [id number] Edgar ARAMBULA PATIENT MEDICARE (WNR) MEDICARE () PART B Oct 19, 2004 PART B [id number] Edgar ARAMBULA PATIENT Selected Encounter This section includes the information on record at [place] for the Encounter. Date/Time Encounter Type Encounter Description Reason Provider Source Sep 18, 2024 11:00 AM MED NUTRITION INDIV SUBSEQ NUTRITION/DIETETIC S-INDIVIDUAL ICD-10-CM R63.4 Abnormal weight loss CHIVO ARAGON IHRichy Encounter Template Text not used by [place] Assessments - Encounter Diagnoses This section includes the primary and secondary diagnoses documented for the Encounter. Date/Time Primary/Secondary Diagnosis Diagnosis Name Provider Source Sep 20, 2024 01:11 PM PRIMARY Abnormal weight loss CHIVO ARAGON [place] Sep 20, 2024 01:11 PM SECONDARY Body mass index [BMI] 27.0-27.9, adult CHIVO ARAGON [place] Sep 20, 2024 01:11 PM SECONDARY Dietary counseling and surveillance CHIVO ARAGON Ángela [place] Sep 20, 2024 01:11 PM SECONDARY Type 2 diabetes mellitus without complications CHIVO ARAGON Gabriela Motta [place] Plan of Treatment: Future Appointments (+ 6 months) and Future Tests (+/- 45 days) The Plan of Treatment section includes future care activities for the patient from all [facility]. This section includes future appointments and future orders which are active, pending or scheduled. Future Appointments This section includes appointments that were scheduled to occur 6 months from the date of the Encounter, up to a maximum of 20 appointments. The data comes from all [facility] facilities. Appointment Date/Time Appointment Type Appointme nt Facility Name Sep 26, 2024 12:30 PM AMBULATORY - MEDICINE [facility] Oct 08, 2024 09:30 AM AMBULATORY - PS[place]CHIATRY [place] [facility] [place] [facility] Oct 14, 2024 12:30 PM AMBULATORY - MEDICINE [place] [place] [facility] Oct 15, 2024 07:45 AM AMBULATORY - NONE [place] [facility] [place] [facility] Oct 21, 2024 09:30 [facility] Oct 30, 2024 08:00 AM AM[place]UL[place]ORY - [place]ICINE [place] [facility] Nov 11, 2024 01:30 PM AMBULATORY - MEDICINE [place] [place] [facility] Nov 12, 2024 10:30 AM AMBULATORY - PS[place]CHIATRY [place] [facility] [place] [facility] Nov 29, 2024 10:00 AM AMBULATORY - MEDICINE [place] [facility] Jan 24, 2025 11:00 AM AMBULATORY - MEDICINE [facility] Active, Pending, and Scheduled Orders This [...] 03:15 PM Consult Order COMMUNITY CARE-CARDIOLOGY Cons Microfilm Operator's Choice [place] [facility] CarRentalsMarket [facility] Lab Results: +/- 30 days [...] Range Comment Aug 29, 2024 11:03 AM [facility] C DIFF TOX B GENE PCR Specimen Type: FECES Comment: The Pansieve C. difficile/Epi assay is a real time PCR assay on the Pansieve GeneXpert System for the rapid detection of [...] on C. difficile testing. H* INDICATES A [place] ALERT HAS BEEN SENT Ordering Provider: GALDINO KIRBY Report Released Date/Time: Aug 28, 2024 10:23 AM Reporting Lab: [facility] CarelandMOUNTAIN VIEW REGIONAL MEDICAL CENTERSchoolwires [facility] [address] [facility] [address] Performing Lab: [facility] [address] [facility] [address] C DIFF TOX B GENE PCR Negative Negative Aug 29, 2024 10:57 AM [facility] GASTROINTESTINAL PANEL (WRLED) Specimen Type: FECES Comment: The Gastrointestina l (GI) Panel is an FDA (IVD) approved qualitative multiplex PCR assay on the [employer] System for testing on raw stool specimens transferred into [employer]. It is indicated as an aid in the diagnosis of specific agents of gastrointestina l illness and results are meant to be used in conjunction with other clinical, laboratory, and epidemiological data. Positive results do not rule out co infection with organisms not included in the NeoSystems GI Panel. The agent detected may not [...] specimen collection, handling, transportation, storage, and preparation. [email or web address] Ordering Provider: GALDINO KIRBY Report Released Date/Time: Aug 28, 2024 10:23 AM Reporting Lab: [facility] [address] [facility] [address] Performing Lab: [facility] [address] [facility] [address] CAMPYLOBACTER SP. Not Detected Not Detected PLESIOMONAS [...] Not Detected Aug 28, 2024 10:49 AM [facility] BASIC METABOLIC PANEL (non-fasting) Specimen Type: SERUM No comment entered. Ordering Provider: GALDINO KIRBY Report Released Date/Time: Aug 28, 2024 10:23 AM Reporting Lab: [address] [address] Performing Lab: [address] [address] UREA NITROGEN 16 mg/dL 7-25 GLUCOSE 212 mg/dL H 65-100 SODIUM 137 mmol/L 135-145 POTASSIUM 4.4 mmol/L 3.5-5.0 CHLORIDE 102 mmol/L 100-110 CO2 25 meq/L 20-30 CREATININE, Serum 0.76 mg/dL 0.50-1.40 eGFR(CKD-EPI 2020) 88 mL/min >60 Aug 28, 2024 10:49 AM [facility] URINALYSIS CLEAN CATCH Specimen Type: URINE Comment: If Glucose = >500 and Ketones are positive, please alert the Physician. Critical result acknowledged. DR KIRBY 08/28/24@1118 BY Ordering Provider: GALDINO KIRBY Report Released Date/Time: Aug 28, 2024 10:23 AM Reporting Lab: [address] [address] Performing Lab: [address] [address] UA COLOR Yellow Yellow UA APPEARANCE Clear Clear UA GLUCOSE 1,000 mg/dL Negative UA KETONES TRACE mg/dL Negative UA BLOOD NEGATIVE mg/dL Negative UA PROTEIN 30 mg/dL Negative UA NITRITE NEGATIVE mg/dL Negative UA BILIRUBIN NEGATIVE mg/dL Negative UA SPECIFIC GRAVITY 1.038 H 1.016-1.02 2 UA pH 5.5 5.0-9.0 UA UROBILINOGEN 3 mg/dL <2.0 UA LEUKOCYTE NEGATIVE Negative Aug 28, 2024 10:49 AM [facility] CBC AND DIFF (AUTO) Specimen Type: BLOOD No comment entered. Ordering Provider: GALDINO KIRBY Report Released Date/Time: Aug 28, 2024 10:23 AM Reporting Lab: [facility] [address] [facility] [address] Performing Lab: [facility] [address] [facility] [address] WBC 6.48 10*3/uL 4.50-11.00 RBC 4.37 10*6/uL [...] 2023 09:00 AM VA-TOBACCO USER EVERY DAY [place] Tobacco Use History This section includes a history of the smoking, or tobacco-related health factors, that were collected on or before the date of the Encounter. The data comes from the [place] facility where the Encounter took place. Date/Time Smoking Status/Tobacco Use Comment F acility December 25, 2023 09:00 AM VA-TOBACCO USE ADVICE [place] December 25, 2023 09:00 AM VA-TOBACCO USE PRODUCE FIELD MERCHANDISER NO [place] December 25, 2023 09:00 AM VA-TOBACCO USE MED NO [place] December 25, 2023 09:00 AM VA-TOBACCO USE WI 30 MIN OF WAKE UP [place] December 25, 2023 09:00 AM VA-TOBACCO USER EVERY DAY [place] Advance Directives: All historical and current Section [...] Source Apr 10, 2023 ADVANCE DIRECTIVE [place] [facility] Apr 19, 2007 [facility] Encounter Notes: All associated encounter notes [...] Update on Interventions Discussed at Previous Visit: has stopped supplement. NUTRITION SUPPLEMENT THERAPY Commercial beverage medical food supplement therapy Food and/or Nutrient Delivery: Recommend Oral Nutritional Supplement as follows: Product: Glucerna Shake Dosage: 1 bottle per day Provides: 220 [...] STAFF DIETITIAN Signed: 09/20/2024 13:11 JESSE ARAGON CNTRL W[facility]N [facility]
--- OUTSIDE RECORDS SUMMARY | 2024-10-30 09:59 | XMS_ITS | Encounter Summary ---
Author Name [facility] [facility] [place] Address [address] [place] [address] Care Team Providers Care Drying Tumbler Operator Name Role Phone TRACY VILLANUEVA Primary [...] PHI MEDEX BRONZ E December 19, 2013 [id number] GUSTAVO ARAMBULA SR PATIENT [employer] MEDICARE SUPPLEMEN PHI MEDIC ARE SUPPL EMENT Jul 21, 2007 NONE [id number] Edgar ARAMBULA PATIENT BCBS OR MEDICARE SUPPLEMEN PHI MEDEX BRONZ E December 19, 2013 [id number] GUSTAVO ARAMBULA SR PATIENT [place] OF [place] ([place] MEDICARE SUPPLEMEN PHI MEDEX BRONZ E December 19, 2013 [id number] Edgar ARAMBULA [place] PATIENT [place]IC[place] (WNR) MEDICARE () PART A Oct 19, 2004 PART A [id number] Edgar ARAMBULA [place] PAT[place]IC[place] ([place]) MEDICARE (M) PART B Oct 19, 2004 PART B [id number] Edgar ARAMBULA [place] PATIENT MEDICARE ([place]) MEDICARE (M) PART A Oct 19, 2004 PART A [id number] Edgar ARAMBULA [place] PATIENT MEDICARE ([place]) MEDICARE (M) PART B Oct 19, 2004 PART B [id number] [id number] Edgar ARAMBULA [place] PATIENT MEDICARE ([place]NR) MEDICARE () PART A Oct 19, 2004 PART A [id number] [id number] Edgar ARAMBULA [place] PAT[place] MEDICARE ([place]) MEDICARE () PART B Oct 19, 2004 PART B [id number] [id number] Edgar ARAMBULA [place] PATIENT MEDICARE ([place]NR) MEDICARE () PART A Oct 19, 2004 PART A [id number] Edgar ARAMBULA [place] PATIENT MEDICARE ([place]NR) MEDICARE () PART B Oct 19, 2004 PART B [id number] Edgar ARAMBULA [place] PAT[place] MEDICARE ([place]) MEDICARE () PART A Oct 19, 2004 PART A [id number] Edgar ARAMBULAN PATIENT MEDICARE (WNR) MEDICARE () PART B Oct 19, 2004 PART B [id number] Edgar ARAMBULAN PATIENT Selected Encounter This [...] 2 diabetes mellitus without complications JOSSUE KNUTSON [place] Plan of Treatment: Future Appointments (+ 6 months) and Future Tests (+/- 45 days) The Plan of Treatment section includes future care activities [facility] the [facility] [place] [facility]. This section includes future appointments [...] AMBULATORY - [facility] [place] [facility] May 01, 2024 11:00 AM AMBULATORY - NONE [facility] [place] [facility] May 14, 2024 11:30 AM AMBULATORY - MEDICINE [facility] May 31, 2024 11:00 AM AMBULATORY - REHAB MEDICIN E [facility] [place] [facility] May 31, 2024 12:00 PM AMBULATORY - MEDICINE [facility] [place] [facility] Jun 10, 2024 10:00 AM AMBULATORY - MEDICINE [facility] Jun 11, 2024 09:30 AM AMBULATORY - PS[facility]CHIATRY [facility] [place] [facility] Jun 13, 2024 10:00 AM AMBULATORY - MEDICINE [facility] [place] [facility] Jun 19, 2024 11:00 AM AMBULATORY - NONE [facility] [place] Jun 21, 2024 09:00 AM AMBULATORY - MEDICINE [facility] [place] Jun 21, 2024 09:15 AM AMBULATORY - MEDICINE [facility] [place] [facility] Jun 21, 2024 09:30 AM AMBULATORY - MEDICINE [facility] [place] [facility] Jun 26, 2024 08:00 AM AMBULATORY - MEDICINE [facility] [place] [facility] Jul 05, 2024 09:00 AM AMBULATORY - REHAB MEDICIN E [facility] [place] Jul 30, 2024 09:30 AM AMBULATORY - PSYCHIATRY [facility] [place] [facility] Aug 05, 2024 09:45 AM AMBULATORY - MEDICINE [facility] [place] [facility] Aug 28, 2024 10:00 AM AMBULATORY - MEDICINE [facility] [place] [facility] Aug 28, 2024 10:30 AM AMBULATORY - MEDICINE [facility] [place] [facility] Sep 06, 2024 11:00 AM AMBULATORY - MEDICINE [facility] [place] [facility] Sep 18, 2024 11:00 AM [facility] Lab Results: +/- 30 days of the [...] Range Comment Apr 25, 2024 07:51 AM [place] HEMOGLOBIN A1C PANEL Specimen Type: BLOOD Comment: [...] Feb 13, 2024 02:36 PM Reporting [facility] [address] [address] Performing Lab: [facility] [address] [address] HEMOGLOBIN A1C 6.8 H 4.0-5.6 Apr 25, 2024 07:51 AM [place] MICROALBUMIN CREATININE RATIO PANEL Spe cimen Type: URINE No comment entered. Ordering Provider: TRACY VILLANUEVA Report Released Date/Time: Feb 13, 2024 02:36 PM Reporting [facility] [address] [address] Performing Lab: [facility] [address] [address] MICROALBUMIN/C REATININE RATIO 16.0 mg/g 0-29.9 MICROALBUMIN,Q UANTITATIVE 2.3 mg/dL RR UNAVAIL CREATININE URINE 143.92 mg/dL Apr 25, 2024 07:51 AM [place] BASIC METABOLIC PANEL (non-fasting) Spe cimen Type: SERUM No comment entered. Ordering Provider: TRACY VILLANUEVA Report Released Date/Time: Feb 13, 2024 02:36 PM Reporting Lab: [address] [address] Performing Lab: [address] [address] UREA NITROGEN 15 mg/dL 7-25 GLUCOSE 173 mg/dL H 65-100 SODIUM 133 mmol/L L 135-145 POTASSIUM 4.2 mmol/L 3.5-5.0 CHLORIDE 100 mmol/L 100-110 CO2 22 meq/L 20-30 CREATININE, Serum 0.74 mg/dL 0.50-1.40 eGFR(CKD-EPI 2020) 89 mL/min >60 Apr 15, 2024 08:39 AM [place] HEMOGLOBIN A1C PANEL Specimen Type: BLOOD Comment: [...] Apr 09, 2024 09:19 AM Reporting Lab: [address] [address] Performing Lab: [address] [address] HEMOGLOBIN A1C 6.3 H 4.0-5.6 Apr 15, 2024 08:39 AM [place] LIVER FUNCTION Specimen Type: SERUM No comment entered. Ordering Provider: TRACY VILLANUEVA Report Released Date/Time: Apr 09, 2024 09:19 AM Reporting Lab: [address] [address] Performing Lab: [address] [address] PROTEIN,TOTAL 7.3 g/dL 6.0-8.3 ALBUMIN 4.5 g/dL 3.5-5.0 ALKALINE PHOSPHATASE 62 U/L 40-150 AST 35 U/L H 5-34 ALT 27 U/L BILIRUBIN, TOTAL 2.5 mg/dL H 0.2-1.2 BILIRUBIN, DIRECT 0.7 mg/dL H 0-0.5 Apr 15, 2024 08:39 AM [place] LIPID PANEL FASTING Specimen Type: SERUM No comment entered. Ordering Provider: TRACY VILLANUEVA Report Released Date/Time: Apr 09, 2024 09:19 AM Reporting Lab: [address] [address] Performing Lab: [address] [address] CHOLESTEROL 137 mg/dL TRIGLYCERIDE 63 mg/dL 0-150 LDL calculated 63 mg/dL 0-129 CHOL/HDL 2.2 HDL CHOLESTEROL 61 mg/dL H 40-60 Apr 15, 2024 08:39 AM [place] BASIC METABOLIC PANEL (fasting) Specime n Type: SERUM No comment entered. Ordering Provider: TRACY VILLANUEVA Report Released Date/Time: Apr 09, 2024 09:19 AM Reporting Lab: [address] [address] Performing Lab: [address] [address] UREA NITROGEN 9 mg/dL 7-25 GLUCOSE 159 mg/dL H 65-100 SODIUM 116 mmol/L LL 135-145 POTASSIUM 3.4 mmol/L L 3.5-5.0 CHLORIDE 81 mmol/L L 100-110 CO2 23 meq/L 20-30 CREATININE, Serum 0.69 mg/dL 0.50-1.40 eGFR(CKD-EPI 2020) >90 mL/min >60 Apr 15, 2024 08:39 AM [place] MICROALBUMIN CREATININE RATIO PANEL Spe cimen Type: URINE No comment entered. Ordering Provider: TRACY VILLANUEVA Report Released Date/Time: Apr 09, 2024 09:19 AM Reporting Lab: [address] [address] Performing Lab: [address] [address] MICROALBUMIN/C REATININE RATIO 83.0 mg/g H 0-29.9 MICROALBUMIN,Q UANTITATIVE 16.8 mg/dL RR UNAVAIL CREATININE URINE 202.40 mg/dL Apr 15, 2024 08:39 AM [place] VITAMIN D (25-OH) Specimen Type: SERUM No comment entered. Ordering Provider: TRACY VILLANUEVA Report Released Date/Time: Apr 09, 2024 09:19 AM Reporting Lab: [address] [address] Performing Lab: [address] [address] VITAMIN D (25-OH) 49 ng/mL -50 Apr 15, 2024 08:39 AM [place] CBC Specimen Type: BLOOD Comment: MCHC >36, SPECIMEN 1+ ICTERIC, QNS FOR PLASMA REPLACEMENT INTERPRET RESULTS WITH CAUTION, SUGGEST PROPER REDRAW SHORT DRAW Ordering Provider: TRACY VILLANUEVA Report Released Date/Time: Apr 09, 2024 09:19 AM Reporting Lab: [address] [address] Performing Lab: [address] [address] WBC 8.70 10*3/uL 4.50-11.00 RBC 4.75 10*6/uL [...] place. Date/Time Current Smoking Status Comment Lopez ity December 25, 2023 09:00 AM VA-TOBACCO USER EVERY DAY [place] Tobacco Use History This section includes a history of the smoking, or tobacco-related health factors, that were collected on or before the date of the Encounter. The data comes from the [place] facility where the Encounter took place. Date/Time Smoking Status/Tobacco Use Comment F acility December 25, 2023 09:00 AM VA-TOBACCO USE ADVICE [place] December 25, 2023 09:00 AM VA-TOBACCO USE MEDICAL TECHNICIAN NO [place] December 25, 2023 09:00 AM VA-TOBACCO USE MED NO [place] December 25, 2023 09:00 AM VA-TOBACCO USE WI 30 MIN OF WAKE UP [place] December 25, 2023 09:00 AM VA-TOBACCO USER EVERY DAY [place] Advance Directives: All historical and current Section Date Range: From patient's date of to the date document was created. This section includes ALL of a patient's completed or amended [place] Advance and Rescinded Directives. The entries below indicate that a directive exists for the patient, but an actual copy is not included with this document. The data comes from all [facility]. Date Advance Directives Provider Source Apr 10, 2023 ADVANCE DIRECTIVE [place] [facility] Apr 19, 2007 ADVANCE DIRECTIVE VICTORIA JOHNSON [facility] Encounter Notes: All associated encounter notes This section contains the clinical notes associated to the Encounter. Date/Time Encounter Note(s) Provider Source Apr 26, 2024 11:03 AM PHARMACY CONSULT: LOCAL TITLE: CONSULT REPORT/PHARMACY STANDARD TITLE: PHARMACY CONSULT DATE OF NOTE: APR 26, 2024@11:03 ENTRY DATE: APR 26, 2024@11:03:16 AUTHOR: RONALD KNUTSON COSIGNER: URGENCY: STATUS: COMPLETED Patient Name: GUSTAVO ARAMBULA SR was seen via [facility] for initial visit for diabetes management treatment. : Oct Age: 83 Sex: MALE Race: WHITE Subjective: Pt presents w/ his son who is also his garment mender. Pt states he was hospitalized last week [...] 19. Disorder of lumbar disc (SNOMED CT 253513583) 20. Depression (SNOMED CT 45597079) 21. Dry Eye Syndromes * 22. 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 Localised, primary osteoarthritis 24. Prostate, Malign Neoplasm 25. Cataract, Cortical (Senile) 26. 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 Mixed hyperlipidaemia 28. Benign essential hypertension 29. POLYPS, COLON/LG BOWEL (BENIGN MAEGAN 30. Tobacco use (SNOMED CT 049547129) Objective: Diabetes Medication Regimen: - metform SA [...] done BLOOD GLUCOSE MONITORING INFORMATION OBTAINED FROM [employer] SENSOR UPLOAD AND SENT TO [facility] [...] coverage i.e. DPP-IV agent. Offered placement of dimple pro pt and son declined. They would like to defer to the next visit. They have a lot on their plate right now. At this time no changes to medication regimen. Reviewed nutrition w/ pt and son. f/up in August. DIABETES A1c is below a goal of <7% - Medication management Diabetes - metform SA 1500 mg daily - Reviewed [place] lab results - Monitor for s/sx hypoglycemia [...] of Preventive Care: Most recent visit to architectural technician:1.5 months [facility] retired Most recent visit to [facility]: [facility] a [facility]; will place optometry [facility]'s Next Scheduled Follow-up: 09/06/2024 - disccuss placement of dimple pro if needed. No barriers; Patient understands [...] monitor and assess /reginaldo/ RONALD KNUTSON CLINICAL CARRY IN WORKER Signed: 04/30/2024 13:18 Receipt Acknowledged By: 04/30/2024 14:02 /reginaldo/ DARLENE BOX CERTIFIED NURSE PRACTITIONER RONALD KNUTSON [place]
--- OUTSIDE RECORDS SUMMARY | 2024-10-30 09:59 | XMS_ITS | Encounter Summary ---
Author Name [facility] [place] [facility] [place] Address [address] [place] [address] Care Team Providers Care Bung Remover Name Role Phone TRACY VILLANUEVA Primary Care [...] PHI MEDEX BRONZ E December 19, 2013 [id number] [phone] GUSTAVO ARAMBULA SR PATIENT [employer] MEDICARE SUPPLEMEN PHI MEDIC ARE SUPPL EMENT Jul 21, 2007 NONE [id number] Edgar ARAMBULA PATIENT [place] MED[place] SUPPLEMEN PHI MEDEX BRONZ E December 19, 2013 [id number] GUSTAVO ARAMBULA SR PATIENT [place] ([place]ARD) MEDICARE SUPPLEMEN PHI MEDEX BRONZ E December 19, 2013 [id number] Edgar ARAMBULA [place] PATIENT MEDICARE (WNR) MEDICARE (M) PART A Oct 19, 2004 PART A [id number] [phone] Edgar ARAMBULA [place] PATIENT MEDICARE (WNR) MEDICARE (M) PART B Oct 19, 2004 PART B [id number] Edgar ARAMBULA [place] PATIENT MEDICARE (WNR) MEDICARE (M) PART A Oct 19, 2004 PART A [id number] Edgar ARAMBULA [place] PATIENT MEDICARE (WNR) MEDICARE (M) PART B Oct 19, 2004 PART B [id number] Edgar ARAMBULA [place] PATIENT MEDICARE (WNR) MEDICARE (M) PART B Oct 19, 2004 PART B [id number] Edgar ARAMBULA [place] PAT[place] MEDICARE (WNR) MEDICARE () PART A Oct 19, 2004 PART A [id number] Edgar ARAMBULA [place] PAT[place] MEDICARE (W[place]) MEDICARE () PART A Oct 19, 2004 PART A [id number] Edgar ARAMBULA [place] PAT[place] MEDICARE ([place]) MEDICARE () PART B Oct 19, 2004 PART B [id number] FILEMONEEdgar [place] PATIENT MEDICARE ([place]) MEDICARE () PART A Oct 19, 2004 PART A [id number] Edgar ARAMBULA [place] PATIENT MEDICARE ([place]NR) MEDICARE (M) PART B Oct 19, 2004 PART B [id number] [phone] Edgar ARAMBULAN PATIENT Selected Encounter This section includes the information on record at [place] for the Encounter. Date/Time Encounter Type Encounter Description Reason Provider Source Jul 30, 2024 09:30 AM OFFICE O/P EST HI [facility] - IND ICD-10-CM F33.9 Major depressive disorder, recurrent, unspecified JOSEY COLINDRES Encounter Template Text not used by [place] Assessments - Encounter Diagnoses This section includes the primary and secondary diagnoses documented for the Encounter. Date/Time Primary/Secondary Diagnosis Diagnosis Name Provider Source Aug 01, 2024 04:28 PM PRIMARY Major depressive disorder, recurrent, unspecified JOSEY COLINDRES [place] [facility] [place] [facility] Aug 01, 2024 04:28 PM SECONDARY Other insomnia COLINDRESJOSEY [place] [facility] [place] [facility] Plan of Treatment: Future Appointments (+ 6 months) and Future Tests (+/- 45 days) The Plan of Treatment section includes future care activities for the patient from all [place] treatmentfacilities. This section includes future appointments and [...] - MEDICINE [place] [facility] [place] [facility] Aug 28, 2024 10:00 AM AMBULATORY - MEDICINE [place] [facility] [place] [facility] Aug 28, 2024 10:30 AM AMBULATORY - MEDICINE [place] [facility] [place] [facility] Sep 06, 2024 11:00 AM AMBULATORY - MEDICINE [place] [facility] [place] [facility] Sep 18, 2024 11:00 AM AMBULATORY - NONE [place] [facility] [place] [facility] Sep 26, 2024 12:30 PM AMBULATORY - MEDICINE [facility] Oct 08, 2024 09:30 AM AMBULATORY - PSYCHIATRY [place] [facility] [place] [facility] Oct 14, 2024 12:30 PM AMBULATORY - MEDICINE [place] [facility] [place] [facility] Oct 15, 2024 07:45 AM AMBULATORY - NONE [place] [facility] [place] [facility] Oct 21, 2024 09:30 AM AMBULATORY - MEDICINE [facility] Oct 30, 2024 08:00 AM AMBULATORY - MEDICINE [place] [facility] [place] [facility] Nov 11, 2024 01:30 PM AMBULATORY - MEDICINE [place] [facility] [place] [facility] Nov 12, 2024 10:30 AM AMBULATORY - PSYCHIATRY [place] [facility] [place] [facility] Nov 29, 2024 10:00 AM AMBULATORY - MEDICINE [facility] Jan 24, 2025 11:00 AM AMBULATORY - MEDICINE [facility] Lab Results: +/- 30 days [...] Range Comment Aug 29, 2024 11:03 AM [facility] C DIFF TOX B GENE PCR Specimen Type: FECES Comment: The [employer] C. difficile/Epi assay is a real time PCR assay on the [employer] GeneXpert System for the rapid detection of [...] on C. difficile testing. H* INDICATES A [place] ALERT HAS BEEN SENT Ordering Provider: GALDINO KIRBY Report Released Date/Time: Aug 28, 2024 10:23 AM Reporting Lab: [facility] [address] [address] Performing Lab: [facility] [address] [address] C DIFF TOX B GENE PCR Negative Negative Aug 29, 2024 10:57 AM [facility] GASTROINTESTINAL PANEL (WRLED) Specimen Type: FECES Comment: The Gastrointestina l (GI) Panel is an FDA (IVD) approved qualitative multiplex PCR assay on the ActBlue System for testing on raw stool specimens transferred into [employer]. It is indicated as an aid in the diagnosis of specific agents of gastrointestina l illness and results are meant to be used in conjunction with other clinical, laboratory, and epidemiological data. Positive results do not rule out co infection with organisms not included in the [place] GI Panel. The agent detected may not [...] specimen collection, handling, transportation, storage, and preparation. [facility] Ordering Provider: GALDINO KIRBY Report Released Date/Time: Aug 28, 2024 10:23 AM Reporting Lab: [facility] [address] [address] Performing Lab: [facility] [employer]3DPRESBYTER[facility] KASEMAN HOSPITALCoNarrative [facility] [address] [address] CAMPYLO[place]CTER SP. Not Detected Not Detected PLESIOMONAS [...] Not Detected Aug 28, 2024 10:49 AM [facility] BASIC METABOLIC PANEL (non-fasting) Specimen Type: SERUM No comment entered. Ordering Provider: GALDINO KIRBY Report Released Date/Time: Aug 28, 2024 10:23 AM Reporting Lab: [facility] [address] [address] Performing Lab: [address] [address] UREA NITROGEN 16 mg/dL 7-25 GLUCOSE 212 mg/dL H 65-100 SODIUM 137 mmol/L 135-145 POTASSIUM 4.4 mmol/L 3.5-5.0 CHLORIDE 102 mmol/L 100-110 CO2 25 meq/L 20-30 CREATININE, Serum 0.76 mg/dL 0.50-1.40 eGFR(CKD-EPI 2020) 88 mL/min >60 Aug 28, 2024 10:49 AM [facility] URINALYSIS CLEAN CATCH Specimen Type: URINE Comment: If Glucose = >500 and Ketones are positive, please alert the Physician. Critical result acknowledged. DR KIRBY 08/28/24@1118 BY Ordering Provider: GALDINO KIRBY Report Released Date/Time: Aug 28, 2024 10:23 AM Reporting Lab: [address] [address] Performing Lab: [address] [address] UA COLOR Yellow Yellow UA APPEARANCE Clear Clear UA GLUCOSE 1,000 mg/dL Negative UA KETONES TRACE mg/dL Negative UA BLOOD NEGATIVE mg/dL Negative UA PROTEIN 30 mg/dL Negative UA NITRITE NEGATIVE mg/dL Negative UA BILIRUBIN NEGATIVE mg/dL Negative UA SPECIFIC GRAVITY 1.038 H 1.016-1.02 2 UA pH 5.5 5.0-9.0 UA UROBILINOGEN 3 mg/dL <2.0 UA LEUKOCYTE NEGATIVE Negative Aug 28, 2024 10:49 AM [facility] CBC AND DIFF (AUTO) Specimen Type: BLOOD No comment entered. Ordering Provider: GALDINO KIRBY Report Released Date/Time: Aug 28, 2024 10:23 AM Reporting Lab: [facility] [address] [address] Performing Lab: [facility] [address] [address] WBC 6.48 10*3/uL 4.50-11.00 RBC 4.37 10*6/uL [...] 10*3/uL 0.00-0.00 Aug 01, 2024 08:18 AM [facility] BASIC METABOLIC PANEL (non-fasting) Spe cimen Type: SERUM No comment entered. Ordering Provider: TRACY VILLANUEVA Report Released Date/Time: Jul 30, 2024 09:45 AM Reporting Lab: [address] [address] Performing Lab: [address] [address] UREA NITROGEN 14 mg/dL 7-25 GLUCOSE 218 mg/dL H 65-100 SODIUM 136 mmol/L 135-145 POTASSIUM 4.1 mmol/L 3.5-5.0 CHLORIDE 101 mmol/L 100-110 CO2 26 meq/L 20-30 CREATININE, Serum 0.77 mg/dL 0.50-1.40 eGFR(CKD-EPI 2020) 88 mL/min >60 Aug 01, 2024 08:18 AM [facility] LIVER FUNCTION Specimen Type: SERUM No comment entered. Ordering Provider: TRACY VILLANUEVA Report Released Date/Time: Jul 30, 2024 09:45 AM Reporting Lab: [address] [address] Performing Lab: [address] [address] PROTEIN,TOTAL 7.2 g/dL 6.0-8.3 ALBUMIN 3.9 g/dL 3.5-5.0 ALKALINE PHOSPHATASE 78 U/L 40-150 AST 16 U/L 5-34 ALT 18 U/L BILIRUBIN, TOTAL 0.8 mg/dL 0.2-1.2 Aug 01, 2024 08:18 AM [facility] HEMOGLOBIN A1C PANEL Specimen Type: BLOOD Comment: [...] Jul 30, 2024 09:45 AM Reporting Lab: [address] [address] Performing Lab: [address] [address] HEMOGLOBIN A1C 8.1 H 4.0-5.6 Aug 01, 2024 08:18 AM [facility] LIPID PANEL, NON FASTING Specimen Type: SERUM No comment entered. Ordering Provider: TRACY VILLANUEVA Report Released Date/Time: Jul 30, 2024 09:45 AM Reporting Lab: [place] [facility] [place] [facility] [address] [address] Performing Lab: [place] [facility] [place] [facility] [address] [address] CHOLESTEROL 155 mg/dL TRIGLYCERIDE 78 mg/dL 0-150 [...] 25, 2023 09:05 AM [facility] [place] [facility] Tobacco Use [...] 30 MIN WAKEUP [facility] [place] [facility] Dec 13, 2022 03:00 PM VA-TOBACCO USE 30 YEARS OR MORE [facility] [place] [facility] Dec 13, 2022 03:00 PM VA-TOBACCO USE ADVICE [facility] [place] [facility] Dec 13, 2022 03:00 PM 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 USE 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 [facility] [place] [facility] Dec 13, 2022 03:00 PM VA-TOBACCO USE MED NO [facility] [place] [facility] Dec 13, 2022 03:00 PM VA-TOBACCO USER EVERY DAY [facility] [place] [facility] Nov 17, 2021 10:00 AM VA-TOBACCO USE 30 YEARS OR MORE [facility] [place] [facility] Nov 17, 2021 10:00 AM VA-TOBACCO USE ADVICE [facility] Nov 17, 2021 10:00 AM VA-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 USE 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 [facility] Nov 17, 2021 10:00 AM VA-TOBACCO USE MED NO [facility] Nov 17, 2021 10:00 AM VA-TOBACCO USE WI 30 MIN OF WAKEUP [facility] Nov 17, 2021 10:00 AM [facility] Oct 14, 2013 12:55 PM V1-PT NOT INTERESTED IN QUIT [facility]ACCO [facility] May 07, 2013 05:04 PM CURRENT SMOKER trying to stop [facility] May 07, 2013 05:04 PM V1-PT DECLINES REF TO TOBACCO CESS PRGM [facility] May 07, 2013 05:04 PM V1-PT DECLINES TOBACCO CESSATION MEDS [facility] May 07, 2013 05:04 PM V1-PT READY TO QUIT TOBACCO USE [facility] Dec 03, 2012 08:23 AM V1-PT DECLINES REF TO TOBACCO CESS PRGM [facility] Dec 03, 2012 08:23 AM V1-PT DECLINES TOBACCO CESSATION MEDS [facility] Dec 03, 2012 08:23 AM V1-PT THINKING ABOUT QUIT TOBACCO USE [facility] Jun 05, 2012 08:45 AM CURRENT SMOKER 1/2ppd [facility] Jun 05, 2012 08:45 AM V1-PT DECLINES REF TO TOBACCO CESS PRGM [facility] Jun 05, 2012 08:45 AM V1-PT THINKING ABOUT QUIT TOBACCO USE [facility] Jun 05, 2012 08:45 AM V1-TOBACCO CESS MEDS NOT PRESCRIBED Vet wants to talk to his provider-He is nervous about taking meds to quit- but he is interested in quitting [facility] Nov 25, 2011 09:14 AM V1-PT DECLINES REF TO TOBACCO CESS PRGM [facility] [place] [facility] Nov 25, 2011 09:14 AM V1-PT DECLINES TOBACCO CESSATION MEDS [facility] [place] [facility] Nov 25, 2011 09:14 AM V1-PT THINKING ABOUT QUIT TOBACCO USE [facility] [place] [facility] May 06, 2011 01:02 PM CURRENT SMOKER [facility] [place] [facility] May 06, 2011 01:02 PM V1-PT DECLINES TOBACCO CESSATION MEDS [facility] [place] [facility] May [...] [place] [facility] Mar 22, 2010 07:58 AM CURRENT SMOKER 1/2 ppd [facility] [place] [facility] Feb 25, 2009 12:05 PM QUIT TOBACCO USE IN PAST YEAR [facility] [place] [facility] Aug 26, 2008 09:28 AM CURRENT SMOKER 1/2 ppd [facility] [place] [facility] Aug [...] AM CURRENT SMOKER [facility] [place] [facility] Sep 11, 2007 11:10 AM V1-PT DECLINES REF TO TOBACCO CESS PRGM [facility] [place] [facility] Sep 11, 2007 11:10 AM V1-PT DECLINES TOBACCO CESSATION MEDS [facility] Sep 11, 2007 11:10 AM V1-PT THINKING ABOUT QUIT [facility]AC[facility] Feb 13, 2007 01:46 PM V1-PT DECLINES REF TO TOBACCO CESS [facility] Feb 13, 2007 01:46 PM V1-PT DECLINES TOBACCO CESSATION MEDS [facility] Feb 13, 2007 01:46 PM V1-PT THINKING ABOUT QUIT TOBACCO USE [facility] Oct 02, 2006 08:28 AM QUIT TOBACCO USE IN PAST YEAR 3 months ago [facility] Aug 19, 2005 08:33 AM QUIT TOBACCO USE IN PAST YEAR nonsmoker [facility] Sep 21, 2004 09:54 AM CURRENT SMOKER [facility] Sep 07, 2004 08:07 AM CURRENT SMOKER [facility] Sep 15, 2003 11:21 AM CURRENT SMOKER smokes one pk day [facility] Jul 23, 2003 01:57 PM CURRENT SMOKER [facility] Advance Directives: All historical and [...] Apr 10, 2023 ADVANCE DIRECTIVE [facility] Apr 19, 2007 ADVANCE DIRECTIVE VICTORIA JOHNSON [facility] Encounter Notes: All associated encounter notes This section contains the clinical notes associated to the Encounter. Date/Time Encounter Note(s) Provider Source Jul 30, 2024 09:34 AM PSYCHIATRY NOTE: LOCAL TITLE: PSYCHIATRY NOTE STANDARD TITLE: PSYCHIATRY NOTE DATE OF NOTE: JUL 30, 2024@09:34 ENTRY DATE: JUL 30, 2024@09:34:20 AUTHOR: COLINDRES,LANA E EXP COSIGNER: URGENCY: STATUS: COMPLETED PSYCHIATRY FOLLOW UP VISIT GUSTAVO ARAMBULA SR is a 83yo MARITAL STATUS - WHITE MALE with a history of [employer] FROM December TO Oct INTERVAL HISTORY Reports feeling well. Sleeping better 10p-7a, energy is pretty good. Keeping busy with painting, feeding the birds, visiting brother in hospital. Brother is s/p [place] and is quite ill. Vet visits him every day. No complaints. Mood is 9-10 out of 10. Visits his old michelle and reminisces. [place] her big holiday. Holidays are still [...] CT 09/25/2023 TRACY VILLANUEVA Depression (SNOMED CT [id number]) F33 12/10/2021 TRAVIS GOMES Dry Eye Syndromes [...] 10/31/2013 JOVANY NAYLOR Tobacco use (SNOMED CT [id number]) Z 02/20/2024 LINDAGUSTAVO BMI: 26.2 SUBSTANCE USE: Alcohol: None MJ: [...] 5 mg at HS for sleep - [facility] Sleep medicine - Cardiology - [...] of active outpatient prescriptions dispensed from this [place] (local) and dispensed from another VA or [...] Resources Only: E911 (Emergency Call Relay Center): [phone] [facility] Crisis Line - (7-135-658-TALK) press #1. OFELIA Suicide Coordinator ? [phone], Ext. [phone]; Back-up Ext. [phone] Hospice Office Coordinator of the Day(AOD), Sabi GILBERT ? [phone], Ext. [phone] Introduction: Visit is being conducted by [place] [facility]. identified with 2 identifiers: [X] Full Name [X] Date of [ ] VA ID Card Emergency Plan: [place] confirmed and/or provided the following information in case of emergency or technology failure. 's present location and address for appointment: Located at home address as in CPRS [place]'s emergency contact name and phone number: Emergency contact as per listed in chart [place] reported that location is private and safe: Yes Informed Consent: informed of the risks and benefits of Telehealth video care. [place] has the right to refuse video services. If refuses video visit, a [id number] visit will be scheduled. [place] verbalized consent for this video visit: Yes [place] provided consent for any other persons present for visit: Yes If yes, who and relationship to patient: Secure visit: Visit was locked for security and privacy:Yes __ _ __ MH AIMS Testing: AIMS (Mental Health Instrument) The patient was evaluated for symptoms of tardive dyskinesia using the AIMS. Total score for items 1-7: 0 /reginaldo/ LANA COLINDRES PSYCHIATRIST Signed: 08/01/2024 16:28 LANA COLINDRES [facility] [place] [facility]
--- OUTSIDE RECORDS SUMMARY | 2024-10-30 09:59 | XMS_ITS | Encounter Summary ---
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 Name Role Phone TRACY VILLANUEVA Primary [...] PHI MEDEX BRONZ E December 19, 2013 [id number] [phone] GUSTAVO ARAMBULA SR PATIENT BANKERS LIFE & CASUALTY MEDICARE SUPPLEMEN PHI MEDIC ARE SUPPL EMENT Jul 21, 2007 NONE [id number] Edgar ARAMBULA PATIENT [place] MED[place] SUPPLEMEN PHI MEDEX BRONZ E December 19, 2013 [id number] [phone] GUSTAVO ARAMBULA SR PATIENT [place] OF [place] (BLU[place]ARD) MEDICARE SUPPLEMEN PHI MEDEX BRONZ E December 19, 2013 [id number] SEVABIEEdgar [place] PATIENT MEDICARE (WNR) MEDICARE () PART A Oct 19, 2004 PART A [id number] FILEMONEEdgar [place] PAT[place] MEDICARE (WNR) MEDICARE (M) PART B Oct 19, 2004 PART B [id number] [phone] [id number] FILEMONEEdgar [place] PATIENT MEDICARE (WNR) MEDICARE () PART A Oct 19, 2004 PART A [id number] [phone] [id number] SEVIGNEEdgar [place] PAT[place] MEDICARE (WNR) MEDICARE () PART B Oct 19, 2004 PART B [id number] SEVABIEEdgar [place] PATIENT MEDICARE (W[place]) MEDICARE () PART B Oct 19, 2004 PART B [id number] [phone] [id number] SEVIGNEEdgar [place] PAT[place] MEDICARE (WNR) MEDICARE () PART A Oct 19, 2004 PART A [id number] 90A SEVIGNEEdgar [place] PATIENT MEDICARE (WNR) MEDICARE () PART A Oct 19, 2004 PART A [id number] 90A FILEMONEEdgar [place] PATIENT MEDICARE (WNR) MEDICARE () PART B Oct 19, 2004 PART B [id number] SEVIGNEEdgar [place] PAT[place] MEDICARE (WNR) MEDICARE () PART A Oct 19, 2004 PART A [id number] [phone] SEVABIEEdgar [place] PATIENT MEDICARE (WNR) MEDICARE () PART B Oct 19, 2004 PART B [id number] SEVIGNEEdgar [place] PATIENT Selected Encounter This [...] PRIMARY Sensorineural hearing loss, bilateral SENIOR,GEE Ochoa [facility] [place] [facility] Plan of Treatment: Future Appointments [...] 10, 2024 10:00 AM AMBULATORY - MEDICINE [facility] Jun 11, 2024 09:30 AM AMBULATORY - PSYCHIATRY [facility] [place] [facility] Jun 13, 2024 10:00 AM AMBULATORY - MEDICINE [facility] [place] [facility] Jun 19, 2024 11:00 AM AMBULATORY - NONE [facility] [place] [facility] Jun 21, 2024 09:00 AM AMBULATORY - MEDICINE [facility] [place] [facility] Jun 21, 2024 09:15 AM AMBULATORY - MEDICINE [facility] [place] [facility] Jun 21, 2024 09:30 AM AMBULATORY - MEDICINE [facility] [place] [facility] Jun 26, 2024 08:00 AM AMBULATORY - MEDICINE [facility] [place] [facility] Jul 05, 2024 09:00 AM AMBULATORY - REHAB MEDICIN E [facility] [place] [facility] Jul 30, 2024 09:30 AM AMBULATORY - PSYCHIATRY [facility] [place] [facility] Aug 05, 2024 09:45 AM AMBULATORY - MEDICINE [facility] [place] [facility] Aug 28, 2024 10:00 AM AMBULATORY - MEDICINE [facility] [place] [facility] Aug 28, 2024 10:30 AM AMBULATORY - MEDICINE [facility] [place] [facility] Sep 06, 2024 11:00 AM AMBULATORY - MEDICINE [facility] [place] [facility] Sep 18, 2024 11:00 AM AMBULATORY - NONE [facility] [place] [facility] Sep 26, 2024 12:30 PM [facility] Oct 08, 2024 09:30 AM AMBULATORY - PSYCHIATRY [facility] [place] [facility] Oct 14, 2024 12:30 PM AMBULATORY - MEDICINE [facility] [place] [facility] Oct 15, 2024 07:45 AM AMBULATORY - NONE [facility] [place] [facility] Oct 21, 2024 09:30 AM AMBULATORY - MEDICINE [facility] Social History: Smoking Status (Most [...] took place. Date/Time Current Smoking Status Comment 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 [facility] [place] [facility] [...] VA-TOBACCO USE ADVICE [facility] [place] [facility] Nov 17, 2021 10:00 AM VA-TOBACCO USE DISPATCH ASSOCIATE [facility] Nov 17, 2021 10:00 AM VA-TOBACCO USE MED NO [facility] Nov 17, 2021 10:00 AM VA-TOBACCO USE WI 30 MIN OF WAKEUP [facility] Nov 17, 2021 10:00 AM VA-TOBACCO USER EVERY DAY [facility] Oct 14, 2013 12:55 PM V1-PT NOT INTERESTED IN QUIT TOBACCO USE [facility] May 07, 2013 05:04 PM CURRENT SMOKER trying to stop [facility] May 07, 2013 05:04 PM V1-PT DECLINES REF TO TOBACCO CESS PRGM [facility] May 07, 2013 05:04 PM V1-PT DECLINES TOBACCO CESSATION MEDS [facility] May 07, 2013 05:04 PM V1-PT READY TO QUIT TOBACCO USE [facility] Dec 03, 2012 08:23 AM V1-PT DECLINES REF TO TOBACCO CESS PRGM [facility] Dec 03, 2012 08:23 AM V1-PT DECLINES TOBACCO CESSATION MEDS [facility] Dec 03, 2012 08:23 AM V1-PT THINKING ABOUT QUIT TOBACCO USE [facility] Jun 05, 2012 08:45 AM CURRENT SMOKER 1/2ppd [facility] Jun 05, 2012 08:45 AM V1-PT DECLINES REF TO TOBACCO CESS PRGM [facility] Jun 05, 2012 08:45 AM V1-PT THINKING ABOUT QUIT TOBACCO USE [facility] Jun 05, 2012 08:45 AM V1-TOBACCO CESS MEDS NOT PRESCRIBED Vet wants to talk to his provider-He is nervous about taking meds to quit- but he is interested in quitting [facility] Nov 25, 2011 09:14 AM V1-PT DECLINES REF TO TOBACCO CESS PRGM [facility] [place] [facility] Nov 25, 2011 09:14 AM V1-PT DECLINES TOBACCO CESSATION MEDS [facility] [place] [facility] Nov 25, 2011 09:14 AM V1-PT THINKING ABOUT QUIT TOBACCO USE [facility] [place] [facility] May 06, 2011 01:02 PM CURRENT SMOKER [facility] [place] [facility] [...] SMOKER 1/2 ppd [facility] [place] [facility] Feb 25, 2009 12:05 PM QUIT TOBACCO USE IN PAST YEAR [facility] [place] [facility] Aug 26, 2008 09:28 AM CURRENT SMOKER 1/2 ppd [facility] [place] [facility] Aug 26, 2008 09:28 AM V1-PT DECLINES REF TO TOBACCO CESS PRGM [facility] [place] [facility] Aug 26, 2008 09:28 AM V1-PT READY TO QUIT TOBACCO USE [facility] [place] [facility] Dec 19, 2007 10:08 AM V1-PT DECLINES REF TO TOBACCO CESS PRGM [facility] [place] [facility] Dec 19, 2007 10:08 AM V1-PT DECLINES TOBACCO CESSATION MEDS [facility] [place] [facility] Dec 19, 2007 10:08 AM V1-PT THINKING ABOUT QUIT TOBACCO USE [facility] [place] [facility] Sep 11, 2007 11:10 AM CURRENT SMOKER [facility] [place] [facility] Sep 11, 2007 11:10 AM V1-PT DECLINES REF TO TOBACCO CESS PRGM [facility] [place] [facility] Sep 11, 2007 11:10 AM V1-PT DECLINES TOBACCO CESSATION MEDS [facility] Sep 11, 2007 11:10 AM V1-PT THINKING ABOUT QUIT TOBACCO USE [facility] Feb 13, 2007 01:46 PM V1-PT DECLINES REF TO TOBACCO CESS PRGM [facility] Feb 13, 2007 01:46 PM V1-PT DECLINES TOBACCO CESSATION MEDS [facility] Feb 13, 2007 01:46 PM V1-PT THINKING ABOUT QUIT TOBACCO USE [facility] Oct 02, 2006 08:28 AM QUIT TOBACCO USE IN PAST YEAR 3 months ago [facility] Aug 19, 2005 08:33 AM QUIT TOBACCO USE IN PAST YEAR nonsmoker [facility] Sep 21, 2004 09:54 AM CURRENT SMOKER [facility] Sep 07, 2004 08:07 AM CURRENT SMOKER [facility] Sep 15, 2003 11:21 AM CURRENT SMOKER smokes one pk day [facility] Jul 23, 2003 01:57 PM CURRENT SMOKER [facility] Advance Directives: All historical [...] Apr 10, 2023 ADVANCE DIRECTIVE GEOR[facility]IE DOZIER [facility] Apr 19, 2007 ADVANCE DIRECTIVE [...] DATE: MAY 31, 2024@09:37:34 AUTHOR: GEE QUIROZ EXP COSIGNER: URGENCY: STATUS: COMPLETED AUDIOLOGY CLINIC Has [...] 19. Disorder of lumbar disc (SNOMED CT 260004049) 20. Depression (SNOMED CT 33689975) 21. Dry Eye Syndromes * 22. 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 Localised, primary osteoarthritis 24. Prostate, Malign Neoplasm 25. Cataract, Cortical (Senile) 26. 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 Mixed hyperlipidaemia 28. Benign essential hypertension 29. POLYPS, COLON/LG BOWEL (BENIGN MAEGAN 30. Tobacco use (SNOMED CT 216447310) ASSESSMENT: Results of today's testing are as [...] to today's audiogram and changed to NAL-NL2. Slater notes that he was unaware that they hearing aids weren't a pair and he does not believe he has any other devices at home. He will try to locate any other devices. HEARING AID SELECTION: Different hearing aid options were discussed. Slater reports difficulties changing batteries and would prefer rechargeable devices. He denies having a pacemaker. Slater is not interested in Bluetooth connectivity. PHONAK [email or web address] L90-RL RICs were selected and ordered in [facility]. With Slater's verbal consent, earmold impressions were taken bilaterally [...] Education RE Not Applicable NA /YOLANDA Bhatt, CCC-A STAFF FILM LABORATORY TECHNICIAN Signed: 05/31/2024 12:05 Receipt Acknowledged By: 05/31/2024 13:41 /reginaldo/ KOKO DARBY SUPERVISORY AUDITING CONTROL CLERK 06/20/2024 ADDENDUM STATUS: COMPLETED Hearing aids received and certified, upcoming appointment scheduled on 07/05/2024. /reginaldo/ ESTEFANIA SMITH [facility] Pelletizer Signed: 06/20/2024 09:33 [facility]
--- OUTSIDE RECORDS SUMMARY | 2024-10-30 09:59 | XMS_ITS | Encounter Summary ---
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 Name Role Phone TRACY VILLANUEVA Primary Care [...] PHI MEDEX BRONZ E December 19, 2013 [id number] GUSTAVO ARAMBULA SR PATIENT BANKERS LIFE & CASUALTY MEDICARE SUPPLEMEN PHI MEDIC ARE SUPPL EMENT Jul 21, 2007 NONE [id number] Edgar ARAMBULA PATIENT [place] MED[place]ARE SUPPLEMEN PHI MEDEX BRONZ E December 19, 2013 [id number] [phone] GUSTAVO ARAMBULA SR PATIENT [place] MEDICARE SUPPLEMEN PHI MEDEX BRONZ E December 19, 2013 [id number] [phone] Edgar ARAMBULA PATIENT MEDICARE (WNR) MEDICARE (M) PART A Oct 19, 2004 PART A [id number] Edgar ARAMBULA [place] PAT[place] MEDICARE ([place]) MEDICARE (M) PART B Oct 19, 2004 PART B [id number] Edgar ARAMBULAN PATIENT MEDICARE (WNR) MEDICARE (M) PART A Oct 19, 2004 PART A [id number] Edgar ARAMBULAN PATIENT MEDICARE (WNR) MEDICARE (M) PART B Oct 19, 2004 PART B [id number] Edgar ARAMBULAN PATIENT MEDICARE (WNR) MEDICARE (M) PART A Oct 19, 2004 PART A [id number] [phone] Edgar ARAMBULAN PATIENT MEDICARE (WNR) MEDICARE () PART B Oct 19, 2004 PART B [id number] [phone] Edgar ARAMBULAN PATIENT MEDICARE (WNR) MEDICARE () PART A Oct 19, 2004 PART A [id number] [phone] Edgar ARAMBULAN PATIENT MEDICARE (WNR) MEDICARE () PART B Oct 19, 2004 PART B [id number] Edgar ARAMBULAN PATIENT MEDICARE (WNR) MEDICARE () PART A Oct 19, 2004 PART A [id number] Edgar ARAMBULAN PATIENT MEDICARE (WNR) MEDICARE () PART B Oct 19, 2004 PART B [id number] Edgar ARAMBULA PATIENT Selected Encounter This section includes the information on record at [place] for the Encounter. Date/Time Encounter Type Encounter Description Reason Pro vider Source Oct 18, 2024 01:18 PM Outpatient Encounter ADMIN PAT ACTIVTIES (MASNONCT) IHE Encounter Template Text not used by [place] Plan of Treatment: Future Appointments (+ 6 months) and Future Tests (+/- 45 days) The Plan of Treatment section includes future care activities for the patient from all [place] [facility]. This section includes future appointments and future orders which are active, pending or scheduled. Future Appointments This section includes appointments that were scheduled to occur 6 months from the date of the Encounter, up to a maximum of 20 appointments. The data comes from all [facility]. Appointment Date/Time Appointment Type Appointme nt Facility Name Oct 21, 2024 09:30 AM AMBULATORY - MEDICINE [facility] Oct 30, 2024 08:00 AM AMBULATORY - MEDICINE [facility] Nov 11, 2024 01:30 PM AMBULATORY - MEDICINE [facility] NTRL WSTR[facility] Nov 12, 2024 10:30 AM AMBULATORY - [facility] Nov 29, 2024 10:00 AM AMBULATORY - MEDICINE [facility] NTRL TRN [facility] Jan 24, 2025 11:00 AM AMBULATORY - MEDICINE [facility] Active, [...] 03:15 PM Consult Order COMMUNITY C[facility]CARDIOLOGY Cons [facility] Nov 11, 2024 12:00 AM Laboratory - Chemistry Order HEMOGLOBIN A1C PANEL BLOOD (LAV-BLOOD) [facility] Nov 11, 2024 12:00 AM Laboratory - Chemistry Order TSH BLOOD (SST-SERUM) [facility] Nov 11, 2024 12:00 AM Laboratory - Chemistry Order MICROALBUMIN CREATININE RATIO PANEL URINE (RANDOM) [facility] Nov 11, 2024 12:00 AM Laboratory - Chemistry Order VITAMIN D (25-OH) BLOOD (SST-SERUM) [facility] Nov 11, 2024 12:00 AM Laboratory - Chemistry Order CBC BLOOD (LAV-BLOOD) [facility] Nov 11, 2024 12:00 AM Laboratory - Chemistry Order BASIC METABOLIC PANEL (non-fasting) BLOOD (SST-SERUM) [facility] Nov 11, 2024 12:00 AM Laboratory - Chemistry Order LIVER FUNCTION BLOOD (SST-SERUM) [facility] Nov 11, 2024 12:00 AM Laboratory - Chemistry Order LIPID PANEL, NON FASTING BLOOD (SST-SERUM) [facility] Social History: Smoking Status (Most current) and [...] place. Date/Time Current Smoking Status Comment [facility] December 25, 2023 09:05 AM VA-TOBACCO NEVER USED [place] [facility] [facility] Tobacco Use History This section includes a history of the smoking, or tobacco-related health factors, that were collected on or before the date of the Encounter. The data comes from the [place] facility where the Encounter took place. Date/Time Smoking Status/Tobac co Use Comment 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 Oct 14, 2013 12:55 PM V1-PT NOT INTERESTED IN QUIT TOBACCO USE [place] [facility] [place] [facility] May 07, 2013 05:04 PM CURRENT SMOKER trying to stop [facility] May 07, 2013 05:04 PM V1-PT DECLINES REF TO TOBACCO CESS PRGM [place] [facility] May 07, 2013 05:04 PM V1-PT DECLINES TOBACCO CESSATION MEDS [facility] May 07, 2013 05:04 PM V1-PT READY TO QUIT TOBACCO USE [facility] Dec 03, 2012 08:23 AM V1-PT DECLINES REF TO TOBACCO CESS PRGM [facility] Dec 03, 2012 08:23 AM V1-PT DECLINES TOBACCO CESSATION MEDS [facility] Dec 03, 2012 08:23 AM V1-PT THINKING ABOUT QUIT TOBACCO USE [facility] Jun 05, 2012 08:45 AM CURRENT SMOKER 1/2ppd [facility] Jun 05, 2012 08:45 AM V1-PT DECLINES REF TO TOBACCO CESS PRGM [facility] Jun 05, 2012 08:45 AM V1-PT THINKING ABOUT QUIT TOBACCO USE [facility] Jun 05, 2012 08:45 AM V1-TOBACCO CESS MEDS NOT PRESCRIBED Vet wants to talk to his provider-He is nervous about taking meds to quit- but he is interested in quitting [facility] Nov 25, 2011 09:14 AM V1-PT DECLINES REF TO TOBACCO CESS PRGM [facility] Nov 25, 2011 09:14 AM V1-PT DECLINES TOBACCO CESSATION MEDS [facility] Nov 25, 2011 09:14 AM V1-PT THINKING ABOUT QUIT TOBACCO USE [facility] May 06, 2011 01:02 PM CURRENT SMOKER [facility] [place] [facility] May 06, 2011 01:02 PM V1-PT DECLINES TOBACCO CESSATION MEDS [facility] [place] [facility] May 06, 2011 01:02 PM V1-PT NOT INTERESTED IN QUIT TOBACCO USE [facility] [place] [facility] Sep 24, 2010 08:51 AM V1-PT DECLINES TOBACCO CESSATION MEDS [place] [facility] Sep 24, 2010 08:51 AM V1-PT THINKING ABOUT QUIT TOBACCO USE [facility] [place] [facility] Mar 22, 2010 07:58 AM CURRENT SMOKER 1/2 ppd [facility] [place] [facility] Feb 25, 2009 12:05 PM QUIT TOBACCO USE IN PAST YEAR [place] [facility] Aug 26, 2008 09:28 AM CURRENT SMOKER 1/2 ppd [facility] [place] [facility] Aug 26, 2008 09:28 AM V1-PT DECLINES REF TO TOBACCO CESS PRGM [facility] [place] [facility] Aug 26, 2008 09:28 AM V1-PT READY TO QUIT TOBACCO USE [facility] [place] [facility] Dec 19, 2007 10:08 AM V1-PT DECLINES REF TO TOBACCO CESS PRGM [facility] [place] [facility] Dec 19, 2007 10:08 AM V1-PT DECLINES TOBACCO CESSATION MEDS [facility] [place] [place] [facility] Dec 19, 2007 10:08 AM V1-PT THINKING ABOUT QUIT TOBACCO USE [facility] [place] [facility] Sep 11, [...] PRGM [facility] [place] [place] [facility] Feb 13, 2007 01:46 PM V1-PT DECLINES TOBACCO CESSATION MEDS [facility] Feb 13, 2007 01:46 PM V1-PT THINKING ABOUT QUIT [facility] Oct 02, 2006 08:28 AM QUIT TOBACCO USE IN PAST YEAR 3 months ago [facility] Aug 19, 2005 08:33 AM QUIT TOBACCO USE IN PAST YEAR nonsmoker [facility] Sep 21, 2004 09:54 AM [facility]ER [facility] Sep 07, 2004 08:07 AM [facility]RENT [facility]KER [facility] Sep 15, 2003 11:21 AM CURRENT SMOKER smokes one pk day [facility] Jul 23, 2003 01:57 PM CURRENT SMOKER [facility] Advance Directives: All historical and current [...] Source Apr 10, 2023 ADVANCE DIRECTIVE [facility] RADHA [facility] Apr 19, 2007 ADVANCE DIRECTIVE VICTORIA JOHNSON [facility] Encounter Notes: All associated encounter notes This section contains the clinical notes associated to the Encounter. Date/Time Encounter Note(s) Provider Source Oct 18, 2024 01:19 PM ADMINISTRATIVE NOT E: LOCAL TITLE: CCC: SCHEDULING ADMINISTRATION STANDARD TITLE: ADMINISTRATIVE NOTE DATE OF NOTE: OCT 18, 2024@13:19:01 ENTRY DATE: OCT 18, 2024@13:19:01 AUTHOR: JAMES OLIVEIRAIGNER: URGENCY: STATUS: COMPLETED CCC: SCHEDULING ADMINISTRATION Has ADDENDA Patient Demographics Patient Name: GUSTAVO ARAMBULA SR Patient Primary Phone: [phone] Patient Primary Address: [address] [place] [id number] Patient : 1940 Patient Age: 83 Caller/Recipient Relation to Patient: Self Caller Name: GUSTAVO ARAMBULA SR Administrative Administrative Note Reason: [facility] [employer] Administrative Note Comments: patient needs a new referral for his outside cardiolist, Dr. Reza at [facility]. IMPORTANT: This note was created by [facility] staff. Please do not alert the staff member by adding them as a signer for future communications. Alerts are not monitored by this user. /reginaldo/ JAMES OLIVEIRA VISN 1 [facility] AMSA Signed: 10/18/2024 13:19 Receipt Acknowledged By: 10/18/2024 14:39 /reginaldo/ MARCUS DOZIER LPN LPN 10/18/2024 13:41 /reginaldo/ ZACHARY ABBOTT RN REGISTERED NURSE 10/18/2024 ADDENDUM STATUS: COMPLETED Consult placed and awaiting PCP's signature. /reginaldo/ ZACHARY ABBOTT RN REGISTERED NURSE Signed: 10/18/2024 13:41 JAMES OLIVEIRA [place] [facility] [facility]
--- OUTSIDE RECORDS SUMMARY | 2024-10-30 09:59 | XMS_ITS | Encounter Summary ---
Author Name [facility] [place] [facility] [place] [facility] [facility] [place] Address [address] [place] [address] Care Team Providers Care Child Custody Evaluator Name Role Phone TRACY VILLANUEVA Primary Care [...] PHI MEDEX BRONZ E December 19, 2013 [id number] GUSTAVO ARAMBULA SR PATIENT [employer] CASUALTY MEDICARE SUPPLEMEN PHI MEDIC ARE SUPPL EMENT Jul 21, 2007 NONE [id number] Edgar ARAMBULA PATIENT [place] MED[place] SUPPLEMEN PHI MEDEX BRONZ E December 19, 2013 [id number] [phone] GUSTAVO ARAMBULA SR PATIENT [place] ([place]ARD) MEDICARE SUPPLEMEN PHI MEDEX BRONZ E December 19, 2013 [id number] Edgar ARAMBULAN PATIENT MEDICARE (WNR) MEDICARE (M) PART A Oct 19, 2004 PART A [id number] Edgar ARAMBULA [place] PATIENT MEDICARE ([place]) MEDICARE (M) PART B Oct 19, 2004 PART B [id number] [phone] [id number] Edgar ARAMBULA [place] PATIENT MEDICARE (WNR) MEDICARE (M) PART A Oct 19, 2004 PART A [id number] [id number] Edgar ARAMBULAN PATIENT MEDICARE (WNR) MEDICARE (M) PART B Oct 19, 2004 PART B [id number] [phone] [id number] Edgar ARAMBULA [place] PATIENT MEDICARE (WNR) MEDICARE () PART A Oct 19, 2004 PART A [id number] Edgar ARAMBULA [place] PATIENT MEDICARE ([place]) MEDICARE () PART B Oct 19, 2004 PART B [id number] Edgar [place] PATIENT MEDICARE (WNR) MEDICARE () PART A Oct 19, 2004 PART A [id number] 90A Edgar ARAMBULAN PATIENT MEDICARE (WNR) MEDICARE () PART B Oct 19, 2004 PART B [id number] Edgar ARAMBULAN PATIENT MEDICARE (WNR) MEDICARE () PART A Oct 19, 2004 PART A [id number] Edgar ARAMBULA PATIENT MEDICARE (WNR) MEDICARE () PART B Oct 19, 2004 PART B [id number] Edgar ARAMBULA PATIENT Selected Encounter This section includes the information on record at [place] for the Encounter. Date/Time Encounter Type Encounter Description Reason Provider Source Sep 26, 2024 12:30 PM OFFICE O/P EST HI 40 MIN PRIMARY CARE/MEDICINE ICD-10-CM I25.10 Athscl heart disease of [place] coronary artery w/o ang pctTRACY Case IHRichy Encounter Template Text not used by [place] Assessments - Encounter Diagnoses This section includes the primary and secondary diagnoses documented for the Encounter. Date/Time Primary/Secondary Diagnosis Diagnosis Name Provider Source Oct 27, 2024 04:24 PM PRIMARY Athscl heart disease of [place] coronary artery w/o ang pctrs TRACY VILLANUEVA [place] Oct 27, 2024 04:24 PM SECONDARY Acute eczematoid otitis externa, bilateral TRACY VILLANUEVA [place] Oct 27, 2024 04:24 PM SECONDARY Chronic obstructive pulmonary disease, unspecified TRACY VILLANUEVA [place] Oct 27, 2024 04:24 PM SECONDARY Essential (primary) hypertension TRACY VILLANUEVA [place] Oct 27, 2024 04:24 PM SECONDARY detention (current) use of anticoagulants TRACY VILLANUEVA [place] Oct 27, 2024 04:24 PM SECONDARY Nonrheumatic aortic (valve) stenosis KAYTRACY Dannie [place] Oct 27, 2024 04:24 PM SECONDARY Tobacco use TRACY VILLANUEVA Dannie [place] Oct 27, 2024 04:24 PM SECONDARY Type 2 diabetes mellitus without complications KAYTRACY C [place] Plan of Treatment: Future Appointments (+ 6 months) and Future Tests (+/- 45 days) The Plan of Treatment section includes future care activities for the patient [facility] [place] [facility] This section includes future appointments and future orders which are active, pending or scheduled. Future Appointments This section includes appointments that were scheduled to occur 6 months from the date of the Encounter, up to a maximum of 20 appointments. The data comes from all [place] treatment facilities. Appointment Date/Time Appointment Type Appointme nt Facility Name Oct 08, 2024 09:30 AM AMBULATORY [place] [facility] [place] [facility] Oct 14, 2024 12:30 PM AMBULATORY [place]ICINE [place] [facility] [place] [facility] Oct 15, 2024 07:45 AM AMBULATORY - NONE [place] [facility] [facility] Oct 21, 2024 09:30 AM AMBULATORY - MEDICINE [facility] Oct 30, 2024 08:00 AM AM[place]ORY [place] [facility] [place] [facility] Nov 11, 2024 01:30 PM AM[place]ORY [place] [place] [facility] Nov 12, 2024 10:30 AM [facility] Nov 29, 2024 10:00 AM [facility]ULATORY - MEDICINE [facility] Jan 24, 2025 11:00 AM AMBULATORY - MEDICINE [facility] Active, Pending, and Scheduled Orders This section includes a listing of several types of active, pending, and scheduled orders, including clinic medications orders, diagnostic test orders, procedure orders and consult orders; where the start date of the order is 45 days before the date of the Encounter or 45 days after the date of theEncounter. The data comes from all [place] treatment facilities. Test Date/Time Test Type Test Details Facility Name Oct 18, 2024 03:15 PM Consult Order COMMUNITY CARE-CARDIOLOGY Cons [employer] [facility] Lab Results: +/- 30 days of the [...] Range Comment Aug 29, 2024 11:03 AM [facility] C DIFF TOX B GENE PCR Specimen Type: FECES Comment: The [employer] C. difficile/Epi assay is a real time PCR assay on the [employer] GeneXpert System for the rapid detection of [...] on C. difficile testing. H* INDICATES A VA ALERT HAS BEEN SENT Ordering Provider: GALDINO KIRBY Report Released Date/Time: Aug 28, 2024 10:23 AM Reporting Lab: [facility] [address] [address] Performing Lab: [facility] [address] [facility] [address] C DIFF TOX B GENE PCR Negative Negative Aug 29, 2024 10:57 AM [facility] GASTROINTESTINAL PANEL (WRLED) Specimen Type: FECES Comment: The Gastrointestina l (GI) Panel is an FDA (IVD) approved qualitative multiplex PCR assay on the Adify System for testing on raw stool specimens transferred into [employer]. It is indicated as an aid in the diagnosis of specific agents of gastrointestina l illness and results are meant to be used in conjunction with other clinical, laboratory, and epidemiological data. Positive results do not rule out co infection with organisms not included in the Metabiota GI Panel. The agent detected may not [...] specimen collection, handling, transportation, storage, and preparation. [employer] Ordering Provider: GALDINO KIRBY Report Released Date/Time: Aug 28, 2024 10:23 AM Reporting Lab: [facility] [address] [facility] [phone] Performing Lab: [facility] [address] [facility] [address] CAMPYLOBACTER SP. Not Detected Not Detected PLESIOMONAS [...] Not Detected Aug 28, 2024 10:49 AM [place] [email or web address] [employer] [facility] BASIC METABOLIC PANEL (non-fasting) Specimen Type: SERUM No comment entered. Ordering Provider: GALDINO KIRBY Report Released Date/Time: Aug 28, 2024 10:23 AM Reporting Lab: [facility] [address] [facility] [address] Performing Lab: [facility] [address] [facility] [address] UREA NITROGEN 16 mg/dL 7-25 GLUCOSE 212 mg/dL H 65-100 SODIUM 137 mmol/L 135-145 POTASSIUM 4.4 mmol/L 3.5-5.0 CHLORIDE 102 mmol/L 100-110 CO2 25 meq/L 20-30 CREATININE, Serum 0.76 mg/dL 0.50-1.40 eGFR(CKD-EPI 2020) 88 mL/min >60 Aug 28, 2024 10:49 AM [facility] [employer] [facility]ST[facility] DISPENSARY[facility] URINALYSIS CLEAN CATCH Specimen Type: URINE Comment: If Glucose = >500 and Ketones are positive, please alert the Physician. Critical result acknowledged. DR KIRBY 08/28/24@1118 BY Ordering Provider: GALDINO KIRBY Report Released Date/Time: Aug 28, 2024 10:23 AM Reporting Lab: [place] [email or web address] [employer] [facility] [address] [facility] [address] Performing Lab: [place] [email or web address] [employer] [address] [address] UA COLOR Yellow Yellow UA APPEARANCE Clear Clear UA GLUCOSE 1,000 mg/dL Negative UA KETONES TRACE mg/dL Negative UA BLOOD NEGATIVE mg/dL Negative UA PROTEIN 30 mg/dL Negative UA NITRITE NEGATIVE mg/dL Negative UA BILIRUBIN NEGATIVE mg/dL Negative UA SPECIFIC GRAVITY 1.038 H 1.016-1.02 2 UA pH 5.5 5.0-9.0 UA UROBILINOGEN 3 mg/dL <2.0 UA LEUKOCYTE NEGATIVE Negative Aug 28, 2024 10:49 AM [facility] CBC AND DIFF (AUTO) Specimen Type: BLOOD No comment entered. Ordering Provider: GALDINO KIRBY Report Released Date/Time: Aug 28, 2024 10:23 AM Reporting Lab: [address] [address] Performing Lab: [address] [address] WBC 6.48 10*3/uL 4.50-11.00 RBC 4.37 10*6/uL [...] 0.0 0.0-0.0 NRBC, ABS 0.00 10*3/uL 0.00-0.00 Vital Signs: All taken on the encounter date This section contains inpatient and outpatient Vital Signs collected on the date of the Encounter. Date/Time Temperature Pulse Blood Pressure Respiratory Rate SP02 Pain Height Weight Body Mass Index Source Sep 26, 2024 12:36 PM 72 138/75 96 140 27 [facility] Social History: Smoking Status (Most current) [...] 2023 09:00 AM VA-TOBACCO USER EVERY DAY [place] Tobacco Use History This section includes a history of the smoking, or tobacco-related health factors, that were collected on or before the date of the Encounter. The data comes from the [place] facility where the Encounter took place. 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 Date/Time Encounter Note(s) Provider Source Oct 17, 2024 08:45 AM ADDENDUM: LOCAL TITLE: Addendum STANDARD TITLE: ADDENDUM DATE OF NOTE: OCT 17, 2024@08:45:17 ENTRY DATE: OCT 17, 2024@08:45:19 AUTHOR: ZACHARY ABBOTT COSIGNER: URGENCY: STATUS: COMPLETED Adding AMSA to fax echo report. /es/ ZACHARY ABBOTT RN REGISTERED NURSE Signed: 10/17/2024 08:45 Receipt Acknowledged By: 10/18/2024 09:20 /reginaldo/ RONEL JHA [employer] FAC[employer]ITIES FLIGHT CHECK PILOT --- Original Document --- 09/27/24 TELEPHONE NOTE/REFERRAL COORDINATION INITIATIVE NURSE: I s/w the [place] about the echo order. He is seeing Dr Barney at [facility] via his private insurance, there are no prior referrals to Dr Barney. Per [facility] portal he was just seen 09/20/24. [place] has referred to his general deer farm worker at [facility]. He states he went to get an echo ordered by Dr Barney on 09/26 at [address] but they didnt do it b/c they said he didnt have a [place] auth on file. This is likely b/c he told them he was a [place]. They echo was ordered by his private provider and should have been done and billed to his private insuance. We can offer [place] echo at [place] as early as Monday, therefore he wouldnt be eligible for an echo in the community. He states he would like to have the echo done at the [place] and have the results sent to Dr. Barney. I will place a echo to be done at [place] as I cannot forward this consult for echo - they require a direct order. /reginaldo/ ALDAIR GREEN RN Referral Coordination Initiative Nurse Signed: 09/27/2024 13:19 10/16/2024 ADDENDUM STATUS: COMPLETED The requests PACT to plese send his echo results to his [place] at [facility], Dr. Barney. /reginaldo/ ALDAIR GREEN RN Referral Coordination Initiative Nurse Signed: 10/16/2024 16:28 Receipt Acknowledged By: 10/17/2024 14:28 /chavez DOZIER LPN LPN 10/17/2024 08:45 /reginaldo/ ZACHARY ABBOTT RN REGISTERED NURSE 10/18/2024 ADDENDUM STATUS: COMPLETED FAXED ECHO TO [facility] /reginaldo/ RONEL JHA [employer] FACILITIES FLIGHT CHECK PILOT Signed: 10/18/2024 09:21 ZACHARY ABBOTT Oct 16, 2024 04:27 PM ADDENDUM: LOCAL TITLE: Addendum STANDARD TITLE: ADDENDUM DATE OF NOTE: OCT 16, 2024@16:27:18 ENTRY DATE: OCT 16, 2024@16:27:20 AUTHOR: ALDAIR GREEN EXP COSIGNER: URGENCY: STATUS: COMPLETED The [place] requests PACT to plese send his echo results to his [place] at [facility], Dr. Barney. /reginaldo/ ALDAIR GREEN RN Referral Coordination Initiative Nurse Signed: 10/16/2024 16:28 Receipt Acknowledged By: 10/17/2024 14:28 /chavez DOZIER LPN LPN 10/17/2024 08:45 /chavez ABBOTT RN REGISTERED NURSE --- Original Document --- 09/27/24 TELEPHONE NOTE/REFERRAL COORDINATION INITIATIVE NURSE: I s/w the [place] about the echo order. He is seeing Dr Barney at [facility] via his private insurance, there are no prior referrals to Dr Barney. Per [facility] portal he was just seen 09/20/24. [place] referred to his general deer farm worker at [facility]. He states he went to get an echo ordered by Dr Barney on 09/26 at [address] but they didnt do it b/c they said he didnt have a VA auth on file. This is likely b/c he told them he was a . They echo was ordered by his private provider and should have been done and billed to his private insuance. [place] can offer [place] echo at [place] as early as Monday, therefore he wouldnt be eligible for an echo in the community. He states he would like to have the echo done at the [place] and have the results sent to Dr. Barney. I will place a echo to be done at [facility] [place] as I cannot forward this consult for echo - they require a direct order. /reginaldo/ ALDAIR GREEN RN Referral Coordination Initiative Nurse Signed: 09/27/2024 13:19 10/17/2024 ADDENDUM STATUS: COMPLETED Adding AMSA to fax echo report. /reginaldo/ ZACHARY ABBOTT RN REGISTERED NURSE Signed: 10/17/2024 08:45 Receipt Acknowledged By: * AWAITING SIGNATURE * RONEL JHA DIXIE WESLEY Sep 27, 2024 01:18 PM NURSING TELEPHONE ENCOUNTER NOTE: LOCAL TITLE: TELEPHONE NOTE/REFERRAL COORDINATION INITIATIVE [facility] STANDARD TITLE: NURSING TELEPHONE ENCOUNTER NOTE DATE OF NOTE: SEP 27, 2024@13:18 ENTRY DATE: SEP 27, 2024@13:18:27 AUTHOR: ALDAIR GREEN EXP COSIGNER: URGENCY: STATUS: COMPLETED TELEPHONE NOTE/REFERRAL COORDINATION INITIATIVE NURSE Has ADDENDA I s/w the [place] about the echo order. He is seeing Dr Barney at [facility] via his private insurance, there are no prior referrals to Dr Barney. Per [facility] portal he was just seen 09/20/24. [place] referred to his general deer farm worker at [facility]. He states he went to get an echo ordered by Dr Barney on 09/26 at [address] but they didnt do it b/c they said he didnt have a VA auth on file. This is likely b/c he told them he was a [place]. They echo was ordered by his private provider and should have been done and billed to his private insuance. [place] offer [place] echo [place] as early [place] Monday, therefore he wouldnt be eligible for an echo in the community. He states he would like to have the echo done at the [place] and have the results sent to Dr. Barney. I will place a echo to be done at [facility] as I cannot forward this consult for echo - they require a direct order. /reginaldo/ ALDAIR GREEN RN Referral Coordination Initiative Nurse Signed: 09/27/2024 13:19 10/16/2024 ADDENDUM STATUS: COMPLETED The requests PACT to plese send his echo results to his [place] at [facility], Dr. Barney. /reginaldo/ ALDAIR GREEN RN Referral Coordination Initiative Nurse Signed: 10/16/2024 16:28 Receipt Acknowledged By: 10/17/2024 14:28 /reginaldo/ MARCUS DOZIER LPN LPN 10/17/2024 08:45 /reginaldo/ ZACHARY ABBOTT RN REGISTERED NURSE 10/17/2024 ADDENDUM STATUS: COMPLETED Adding AMSA to fax echo report. /reginaldo/ ZACHARY ABBOTT RN REGISTERED NURSE Signed: 10/17/2024 08:45 Receipt Acknowledged By: 10/18/2024 09:20 /reginaldo/ RONEL JHA ADVANCED FACILITIES FLIGHT CHECK PILOT 10/18/2024 ADDENDUM STATUS: COMPLETED FAXED ECHO TO [facility] /reginaldo/ RONEL JHA ADVANCED FACILITIES FLIGHT CHECK PILOT Signed: 10/18/2024 09:21 ALDAIR GREEN [place] Sep 26, 2024 12:37 PM PREVENTIVE MEDICIN E NURSING NOTE: LOCAL TITLE: CLINICAL REMINDERS/NURSING STANDARD TITLE: PREVENTIVE MEDICINE NURSING NOTE DATE OF NOTE: SEP 26, 2024@12:37 ENTRY DATE: SEP 26, 2024@12:37:16 AUTHOR: TINO ZAPIEN EXP COSIGNER: URGENCY: STATUS: COMPLETED Homelessness/Food Insecurity Screen: In [...] Not worried about housing near future The [place] reports the following: Within the past 12 months, you worried whether your food would run out before you got money to buy more. Never true Within the past 12 months, the food you bought just didn't last and you didn't have money to get more. Never true RSV Immunization: Respiratory Syncytial Virus (RSV) Vaccine: Refused GlaxoSmithKlTop Prospect (RSV vaccine, adjuvanted, Arexvy). Immunization: RSV, RECOMBINANT, PROTEIN SUBUNIT RSVPREF3, ADJUVANT RECONSTITUTED, 0.5 ML, PF Refusal Reason: PATIENT DECISION Patient refuses all immunization(s) in the RSV group Date Documented: 09/26/24 12:37 Sexual Orientation: The patient thinks of their sexual orientation as: Straight or Heterosexual RHS Screen: RHS Screen Environmental Check Upon inquiry, the individual reports [...] full rights to use it throughout the [place] system. PRIMARY SCREEN RESULT: The Primary Screen is NEGATIVE. The individual answered never to all forms of IPV above (i.e., answered never to all 5 items) The individual accepts education and/or resources: No EDUCATION: The individual indicated readiness to learn. Education offered during this session as noted above. The individual indicated understanding by asking relevant questions and making appropriate comments. No barriers to learning were observed or identified. /reginaldo/ TINO ZAPIEN LPN Licensed Practical Nurse Signed: 09/26/2024 12:43 TINO ZAPIEN Sep 26, 2024 12:30 PM PRIMARY CARE NURSE PRACTITIONER OUTPATIENT NOTE: LOCAL TITLE: NURSE PRACTITIONER OUTPATIENT NOTE STANDARD TITLE: PRIMARY CARE NURSE PRACTITIONER OUTPATIENT NOTE DATE OF NOTE: SEP 26, 2024@12:30 ENTRY DATE: SEP 26, 2024@12:30:41 AUTHOR: TRACY VILLANUEVA EXP COSIGNER: URGENCY: STATUS: COMPLETED PRIMARY CARE VISIT GUSTAVO ALEXANDER SR ARAMBULA, is a 83 y/o WHITE MALE who [facility] today at the [place] [facility]. TYPE OF VISIT: Face to face HPI: COPD, + smoker - trying to quit, down to 6 cig/day. + ERWIN, denies cough. On maintenance and rescue Rx. LDCT 03/16/24 on chart. CAD, HTN, aortic stenosis with hx valve replacement. Has echo scheduled. BP stable. On Eliquis, amlodipine. followed by cardiology. Denies CP, palpitations, peripheral edema. DM2 - A1c 8.1 - on metforin, sitaglipitin. Sitagliptin is new, states BS are much better now, range 130-150. Reports occasional loose stools d/t metformin. recurrent itching, rash to b/l ears, topical hydrocortisone hasn't helped. Recent labs reviewed and all medications were reconciled during this visit. HISTORY: PERIOD OF SERVICE - [facility] FROM December TO Oct COMBAT SERVICE INDICATED: No VITAL SIGNS: Blood Pressure: 138/75 (09/26/2024 12:36) Pain: 7 (09/05/2023 10:02) Patient Height: 60.3 in [153.2 cm] (05/14/2024 11:39) Patient Weight: 140 lb [63.50 kg] (09/26/2024 12:36) Pulse: 72 (09/26/2024 12:36) Respiration: 18 (08/28/2024 10:06) Temperature: 97.6 F [36.4 C] (08/28/2024 10:06) ASSISTIVE DEVICES: cane REVIEW OF SYSTEMS: see HPI PHYSICAL EXAMINATION: General: Well-appearing in no obvious distress. Mental Status: Alert and oriented x4. Neck: Supple. No lymphadenopathy. No bruit. Thyroid unremarkable. Lungs: CTAB. Normal chest excursion. Eupneic respirations. CV: Heart tones S1, S2. RRR. 3/6 KIMMY. No peripheral edema. GI: Abdomen is soft and nontender. No palpable mass or organomegaly. : No CVA tenderness. Integument: eczema b/l external ears Psych: Normal mood and affect. Normal judgment. Cooperative with exam, follows commands. ALLERGIES: GEMFIBROZIL, LISINOPRIL HEALTH MAINTENANCE - see end of note PREVENTIVE MEDICINE GOALS Info Only: [facility] Video Connect Capable DUE NOW Homelessness/Food Insecurity Screen Sep 05 Home Telehealth ([facility]) Referral May 14 Medication Reconciliation DUE NOW RSV Immunization DUE NOW Sexual Orientation Sep 25 RHS Screen Sep 25 (Optional) Whole Health Documentation DUE NOW ASSESSMENT/PLAN: Active problems - Computerized Problem List is the source for the followin. Arteriosclerotic heart disease - followed by cardiology. Continue Rx, management of comorbid conditions. Echo is pending. 2. Benign essential hypertension - stable, continue Rx. 3. Aortic valve stenosis - s/p valve replacement. Echo pending. Continue anticoagulation until risk > benefit. Followed by cardiology. 4. Long-term current use of anticoagulant - at high risk for bleeding complications, monitor closely. 5. Diabetes mellitus type 2 - BS improved on sitagliptin. Has mild loose stools d/t metformin; will continue Rx for now. Repeat labs next month. Continue home BS monitoring, recommend ADA diet. 6. Chronic obstructive lung disease - continue Rx, decline expected with natural progression of disease. Trying to quit smoking. 7. Tobacco use (SNOMED CT [id number]) 8. eczema b/l external ears - trial triamcinolone cream topically. FOLLOW UP: Return to clinic as noted below and/or sooner PRN UPCOMING APPOINTMENTS: 10/08/2024 09:30 CWM/NO/VVC/MHC/DANIELS1 10/14/2024 12:30 SPR PHARM PACT 2 10/21/2024 09:30 SPR PODIATRY 1 No barriers noted; patient understands and agrees to current treatment plan. If patient has any questions, concerns or changes in current health status he/she will call or come in to the [facility]. A total of 40 minutes were spent F2F with the patient during this encounter and over half that time was spent on counseling and coordination of care. We discussed in depth all current health conditions and management of these conditions. HM: Info Only: [facility] Connect Capable: Medication Reconciliation: Outpatient: Has the patient been taking medications as documented in the EMLR? YES: The patient has been taking medications as documented in the EMLR. Essential Medication List for Review used to complete this medication reconciliation. INCLUDED IN THIS LIST: Alphabetical list of active outpatient prescriptions dispensed from this [facility] (local) and dispensed from another [place] or [facility] facility (remote) as well [...] /reginaldo/ DARLENE BOX CERTIFIED NURSE PRACTITIONER Signed: 10/27/2024 16:22 TRACY VILLANUEVA [place]
--- OUTSIDE RECORDS SUMMARY | 2024-10-30 09:59 | XMS_ITS | Encounter Summary ---
Author Name [facility] [facility] [place] [facility] [place] Address [address] [place] [address] Care Team Providers Care Plant Science Professor Name Role Phone TRACY VILLANUEVA Primary Care [...] PHI MEDEX BRONZ E December 19, 2013 [id number] GUSTAVO ARAMBULA SR PATIENT BANKERS LIFE & CASUALTY MEDICARE SUPPLEMEN PHI MEDIC ARE SUPPL EMENT Jul 21, 2007 NONE [id number] Edgar ARAMBULA PATIENT [place] MED[place] SUPPLEMEN PHI MEDEX BRONZ E December 19, 2013 [id number] [phone] GUSTAVO ARAMBULA SR PATIENT [place] OF [place] ([place]ARD) MEDICARE SUPPLEMEN PHI MEDEX BRONZ E December 19, 2013 [id number] Edgar ARAMBULA [place] PATIENT MEDICARE (WNR) MEDICARE () PART A Oct 19, 2004 PART A [id number] FILEMONEEdgar [place] PATIENT MEDICARE (WNR) MEDICARE () PART B Oct 19, 2004 PART B [id number] Edgar ARAMBULA [place] PATIENT MEDICARE (WNR) MEDICARE () PART A Oct 19, 2004 PART A [id number] SEVABIEEdgar [place] PATIENT MEDICARE (WNR) MEDICARE () PART B Oct 19, 2004 PART B [id number] Edgar ARAMBULA [place] PATIENT MEDICARE (WNR) MEDICARE () PART B Oct 19, 2004 PART B [id number] [id number] [id number] SEVABIEEdgar [place] PATIENT MEDICARE (WNR) MEDICARE () PART A Oct 19, 2004 PART A [id number] 90A SEVABIEEdgar [place] PATIENT MEDICARE (WNR) MEDICARE () PART A Oct 19, 2004 PART A [id number] 90A Edgar ARAMBULA [place] PATIENT MEDICARE (WNR) MEDICARE () PART B Oct 19, 2004 PART B [id number] 90A SEVABIEEdgar [place] PATIENT MEDICARE (WNR) MEDICARE () PART A Oct 19, 2004 PART A [id number] [phone] Edgar ARAMBULA [place] PATIENT MEDICARE (WNR) MEDICARE () PART B Oct 19, 2004 PART B [id number] SEVABIEEdgar [place] PATIENT Selected Encounter This [...] lens, right eye, mild stage OSHINSKIEPATIENCE J [facility] [place] [facility] Jun 21, 2024 01:59 PM SECONDARY Capslr glaucoma w/pseudxf lens, left eye, moderate stage OSHINSKIE,PATIENCE JACKSOND J [place] [facility] [place] [facility] Plan of Treatment: Future Appointments (+ 6 months) and Future Tests (+/- 45 days) The Plan of Treatment section includes future care activities for the patient from all [place] treatmentfacilities. This section includes future appointments and [...] - MEDICINE [facility] [place] [facility] Jul 05, 2024 09:00 AM AMBULATORY - REHAB MEDICIN E [facility] [place] [facility] Jul 30, 2024 09:30 AM AMBULATORY - PSYCHIATRY [facility] [place] [facility] Aug 05, 2024 09:45 AM AMBULATORY - MEDICINE [facility] [place] [facility] Aug 28, 2024 10:00 AM AMBULATORY - MEDICINE [facility] [place] [facility] Aug 28, 2024 10:30 AM AMBULATORY - MEDICINE [facility] [place] [facility] Sep 06, 2024 11:00 AM AMBULATORY - MEDICINE [facility] [place] [facility] Sep 18, 2024 11:00 AM AMBULATORY - NONE [facility] [place] [facility] Sep 26, 2024 12:30 PM [facility] Oct 08, 2024 09:30 AM AMBULATORY - PSYCHIATRY [facility] [place] [facility] Oct 14, 2024 12:30 PM AMBULATORY - MEDICINE [facility] [place] [facility] Oct 15, 2024 07:45 AM AMBULATORY - NONE [facility] [place] [facility] Oct 21, 2024 09:30 AM [place]IC[place] Oct 30, 2024 08:00 AM AMBULATORY - MEDICINE [facility] [place] [facility] Nov 11, 2024 01:30 PM AMBULATORY - MEDICINE [facility] [place] [facility] Nov 12, 2024 10:30 AM AMBULATORY - PSYCHIATRY [facility] [place] [facility] Nov 29, 2024 10:00 AM AMBULATORY - MEDICINE [place] [facility] [place] [facility] Social History: Smoking Status (Most current) [...] 25, 2023 09:05 AM VA-TOBACCO [facility] [place] [facility] Tobacco Use History This section includes a history of the smoking, or tobacco-related health factors, that were collected on or before the date of the Encounter. The data comes from the [place] facility where the Encounter took place. 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 [facility] [place] [facility] Dec 13, 2022 03:00 PM VA-TOBACCO USE MED NO [facility] [place] [facility] Dec 13, 2022 03:00 PM VA-TOBACCO USER EVERY DAY [facility] [place] [facility] Nov 17, 2021 10:00 AM VA-TOBACCO USE 30 YEARS OR MORE [facility] [place] [facility] Nov 17, 2021 10:00 AM VA-TOBACCO USE ADVICE [facility] [place] [facility] Nov 17, 2021 10:00 AM VA-TOBACCO USE 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 [facility] Nov 17, 2021 10:00 AM VA-TOBACCO USE MED NO [facility] Nov 17, 2021 10:00 AM VA-TOBACCO USE WI 30 MIN OF WAKEUP [facility] Nov 17, 2021 10:00 AM VA-TOBACCO USER EVERY DAY [facility] Oct 14, 2013 12:55 PM V1-PT NOT INTERESTED IN QUIT TOBACCO USE [facility] May 07, 2013 05:04 PM CURRENT SMOKER trying to stop [facility] May 07, 2013 05:04 PM V1-PT DECLINES REF TO TOBACCO CESS PRGM [facility] May 07, 2013 05:04 PM V1-PT DECLINES TOBACCO CESSATION MEDS [facility] May 07, 2013 05:04 PM V1-PT READY TO QUIT TOBACCO USE [facility] Dec 03, 2012 08:23 AM V1-PT DECLINES REF TO TOBACCO CESS PRGM [facility] Dec 03, 2012 08:23 AM V1-PT DECLINES TOBACCO CESSATION MEDS [facility] Dec 03, 2012 08:23 AM V1-PT THINKING ABOUT QUIT TOBACCO USE [facility] Jun 05, 2012 08:45 AM CURRENT SMOKER 1/2ppd [facility] Jun 05, 2012 08:45 AM V1-PT DECLINES REF TO TOBACCO CESS PRGM [facility] Jun 05, 2012 08:45 AM V1-PT THINKING ABOUT QUIT TOBACCO USE [facility] Jun 05, 2012 08:45 AM V1-TOBACCO CESS MEDS NOT PRESCRIBED Vet wants to talk to his provider-He is nervous about taking meds to quit- but he is interested in quitting [facility] Nov 25, 2011 09:14 AM V1-PT DECLINES REF TO TOBACCO CESS PRGM [facility] [place] [facility] Nov 25, 2011 09:14 AM V1-PT DECLINES TOBACCO CESSATION MEDS [facility] [place] [facility] Nov 25, 2011 09:14 AM V1-PT THINKING ABOUT QUIT TOBACCO USE [facility] [place] [facility] May 06, 2011 01:02 PM CURRENT SMOKER [facility] [place] [facility] May 06, 2011 01:02 PM V1-PT DECLINES TOBACCO CESSATION MEDS [facility] [place] [facility] May 06, 2011 01:02 PM V1-PT NOT INTERESTED IN QUIT TOBACCO USE [facility] [place] [facility] Sep 24, 2010 08:51 AM V1-PT DECLINES TOBACCO CESSATION MEDS [facility] [place] [facility] Sep 24, 2010 08:51 AM V1-PT THINKING ABOUT QUIT TOBACCO USE [facility] [place] [facility] Mar 22, 2010 07:58 AM CURRENT SMOKER 1/2 ppd [facility] [place] [facility] Feb 25, 2009 12:05 PM QUIT TOBACCO USE IN PAST YEAR [facility] [place] [facility] Aug 26, 2008 09:28 AM CURRENT SMOKER 1/2 ppd [facility] [place] [facility] Aug 26, 2008 09:28 AM V1-PT DECLINES REF TO TOBACCO CESS PRGM [place] [facility] [place] [facility] Aug 26, 2008 09:28 AM V1-PT READY TO QUIT TOBACCO USE [facility] [place] [facility] Dec 19, 2007 10:08 AM V1-PT DECLINES REF TO TOBACCO CESS PRGM [facility] [place] [facility] Dec 19, 2007 10:08 AM V1-PT DECLINES TOBACCO CESSATION MEDS [facility] [place] [facility] Dec 19, 2007 10:08 AM V1-PT THINKING ABOUT QUIT TOBACCO USE [facility] [place] [facility] Sep 11, 2007 11:10 AM CURRENT SMOKER [facility] [place] [facility] Sep 11, 2007 11:10 AM V1-PT DECLINES REF TO TOBACCO CESS PRGM [facility] [place] [facility] Sep 11, 2007 11:10 AM V1-PT DECLINES TOBACCO CESSATION MEDS [facility] Sep 11, 2007 11:10 AM V1-PT THINKING ABOUT QUIT TOBACCO USE [facility] Feb 13, 2007 01:46 PM V1-PT DECLINES REF TO TOBACCO CESS PRGM [facility] Feb 13, 2007 01:46 PM V1-PT DECLINES TOBACCO CESSATION MEDS [facility] Feb 13, 2007 01:46 PM V1-PT THINKING ABOUT QUIT TOBACCO USE [facility] Oct 02, 2006 08:28 AM QUIT TOBACCO USE IN PAST YEAR 3 months ago [facility] Aug 19, 2005 08:33 AM QUIT TOBACCO USE IN PAST YEAR nonsmoker [facility] Sep 21, 2004 09:54 AM CURRENT SMOKER [facility] Sep 07, 2004 08:07 AM CURRENT SMOKER [facility] Sep 15, 2003 11:21 AM CURRENT SMOKER smokes one pk day [facility] Jul 23, 2003 01:57 PM CURRENT SMOKER [facility] Advance Directives: All historical and current [...] Apr 10, 2023 ADVANCE DIRECTIVE ESSIE STARK [facility] Apr 19, 2007 [facility] Encounter Notes: All associated encounter notes This section contains the clinical notes associated to the Encounter. Date/Time Encounter Note(s) Provider Source Jun 21, 2024 10:09 AM OPTOMETRY CONSULT: LOCAL TITLE: CONSULT REPORT/OPTOMETRY VISUAL FIELD STANDARD TITLE: OPTOMETRY CONSULT DATE OF NOTE: JUN 21, 2024@10:09 ENTRY DATE: JUN 21, 2024@10:09:32 AUTHOR: MARILYNN CORRAL: BARBARA STOVALL URGENCY: STATUS: COMPLETED CONSULT REPORT/OPTOMETRY [...] check /reginaldo/ Barbara Stovall OD Fee Basis Contact Center Representative Signed: 06/21/2024 13:58 for MARILYNN CORRAL OPTOMETRY STUDENT /reginaldo/ Barbara Stovall OD Fee Basis Contact Center Representative Cosigned: 06/21/2024 13:58 06/21/2024 ADDENDUM STATUS: COMPLETED I reviewed the OCT and VF and agree with assessment and plan /reginaldo/ Barbara Stovall OD Fee Basis Contact Center Representative Signed: 06/21/2024 14:00 BARBARA STOVALL [facility]
--- OUTSIDE RECORDS SUMMARY | 2024-10-30 09:59 | XMS_ITS | Encounter Summary ---
Author Name [facility] [place] Organization [facility] [place] Address [address] [place] [address] Care Team Providers Care Jig Bore Operator Name Role Phone TRACY VILLANUEVA Primary [...] PHI MEDEX BRONZ E December 19, 2013 [id number] [phone] GUSTAVO ARAMBULA SR PATIENT B[employer]ERS LIFE & CASUALTY MEDICARE SUPPLEMEN PHI MEDIC ARE SUPPL EMENT Jul 21, 2007 NONE [id number] Edgar ARAMBULA PATIENT [place] SUPPLEMEN PHI MEDEX BRONZ E December 19, 2013 [id number] GUSTAVO ARAMBULA SR PATIENT [place] MEDICARE SUPPLEMEN PHI MEDEX BRONZ E December 19, 2013 [id number] Edgar ARAMBULA PATIENT MEDICARE (WNR) MEDICARE () PART A Oct 19, 2004 PART A [id number] [id number] Edgar ARAMBULAN PATIENT MEDICARE (WNR) MEDICARE () PART B Oct 19, 2004 PART B [id number] [id number] Edgar ARAMBULA [place] PATIENT MEDICARE ([place]) MEDICARE () PART A Oct 19, 2004 PART A [id number] Edgar ARAMBULAN PATIENT MEDICARE (WNR) MEDICARE () PART B Oct 19, 2004 PART B [id number] [id number] Edgar ARAMBULA PATIENT MEDICARE (WNR) MEDICARE () PART A Oct 19, 2004 PART A [id number] [id number] [id number] Edgar ARAMBULAN PATIENT MEDICARE (WNR) MEDICARE () PART B Oct 19, 2004 PART B [id number] 90A Edgar ARAMBULAN PATIENT MEDICARE (WNR) MEDICARE () PART A Oct 19, 2004 PART A [id number] 90A Edgar ARAMBULA PATIENT MEDICARE (WNR) MEDICARE () PART B Oct 19, 2004 PART B [id number] 90A Edgar ARAMBULAN PATIENT MEDICARE (WNR) MEDICARE () PART A Oct 19, 2004 PART A [id number] Edgar ARAMBULA PATIENT MEDICARE (WNR) MEDICARE () PART B Oct 19, 2004 PART B [id number] Edgar ARAMBULAN PATIENT Selected Encounter This section includes the information on record at [place] for the Encounter. Date/Time Encounter Type Encounter Description Reason Provider Source Oct 15, 2024 07:45 AM TTE W/DOPPLER COMPLETE CARDIAC ECHO ICD-10-CM I35.0 Nonrheumatic aortic (valve) stenosis [facility] OLSON [facility] Encounter Template Text not used by [facility] Assessments - Encounter Diagnoses This section includes the primary and secondary diagnoses documented for the Encounter. Date/Time Primary/Secondary Diagnosis Diagnosis Name Provider Source Oct 15, 2024 08:17 AM PRIMARY Nonrheumatic aortic (valve) stenosis JEMIMA OLSON [place] Plan of Treatment: Future Appointments (+ 6 months) and Future Tests (+/- 45 days) The Plan of Treatment section includes future care activities for the patient [facility] [place] [facility] This section includes future appointments and future orders which are active, pending or scheduled. Future Appointments This section includes appointments that were scheduled to occur 6 months from the date of the Encounter, up to a maximum of 20 appointments. The data comes from all [facility]. Appointment Date/Time Appointment Type Appointme nt Facility Name Oct 21, 2024 09:30 AM AMBULATORY [facility] Oct 30, 2024 08:00 AM AMBULATORY - MEDICINE [facility] Nov 11, 2024 01:30 PM AMBULATORY - MEDICINE [facility] Nov 12, 2024 10:30 AM [facility] Nov 29, 2024 10:00 AM [facility] Jan 24, 2025 11:00 AM AM[facility]UL[facility]ORY - MEDICINE [facility] [...] of theEncounter. The data comes from all [facility]. Test Date/Time Test Type Test Details Facility Name Oct 18, 2024 03:15 PM Consult Order COMMUNITY CARE-CARDIOLOGY Cons Adjunct Instructor In Economics's Choice [facility] Nov 11, 2024 12:00 AM Laboratory - Chemistry Order TSH BLOOD (SST-SERUM) [facility] Nov 11, 2024 12:00 AM Laboratory - Chemistry Order HEMOGLOBIN A1C PANEL BLOOD (LAV-BLOOD) [facility] Nov 11, 2024 12:00 AM Laboratory - Chemistry Order MICROALBUMIN CREATININE RATIO PANEL URINE (RANDOM) [facility] Nov 11, 2024 12:00 AM Laboratory - Chemistry Order VITAMIN D (25-OH) BLOOD (SST-SERUM) [facility] Nov 11, 2024 12:00 AM Laboratory - Chemistry Order CBC BLOOD (LAV-BLOOD) [facility] Nov 11, 2024 12:00 AM Laboratory - Chemistry Order BASIC METABOLIC PANEL (non-fasting) BLOOD (SST-SERUM) [facility] Nov 11, 2024 12:00 AM Laboratory - Chemistry Order LIPID PANEL, NON FASTING BLOOD (SST-SERUM) [facility] Nov 11, 2024 12:00 AM Laboratory - Chemistry Order LIVER FUNCTION BLOOD (SST-SERUM) [facility] Social History: Smoking Status (Most [...] 2023 09:00 AM VA-TOBACCO USER EVERY DAY [place] Tobacco Use History This section includes a history of the smoking, or tobacco-related health factors, that were collected on or before the date of the Encounter. The data comes from the [place] facility where the Encounter took place. 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 Date/Time Encounter Note(s) Provider Source Oct 15, 2024 06:01 PM CARDIOLOGY PROCEDU RE NOTE: LOCAL TITLE: CP CARDIOLOGY ECHO STANDARD TITLE: CARDIOLOGY PROCEDURE NOTE DATE OF NOTE: OCT 15, 2024@18:01:16 ENTRY DATE: OCT 15, 2024@18:01:16 AUTHOR: CLINICAL,DEVICE PRO EXP COSIGNER: URGENCY: STATUS: COMPLETED PROCEDURE SUMMARY CODE: Machine Resulted DATE/TIME PERFORMED: OCT 15, 2024@07:38:1 DOCUMENT IN VISTA IMAGING SEE FULL REPORT IN VISTA IMAGING SIGNATURE NOT REQUIRED SEE SIGNATURE IN VISTA IMAGING (XCELERA (ADULT) SOPC) AUTO-INSTRUMENT DIAGNOSIS Procedure: Interop Interop Release Status: Released Off-Line Verified Date Verified: Oct 15, 2024@18:00:08 Administrative Closure: 10/15/2024 by: Clinical,Device Proxy Service CLINICAL,DEVICE PROXY SERVICE [place] Oct 15, 2024 08:07 AM CARDIOLOGY DIAGNOS TIC STUDY NOTE: LOCAL TITLE: ECHOCARDIOGRAM REPORT STANDARD TITLE: CARDIOLOGY DIAGNOSTIC STUDY NOTE DATE OF NOTE: OCT 15, 2024@08:07 ENTRY DATE: OCT 15, 2024@08:12:53 AUTHOR: EILEEN OLSON EXP COSIGNER: URGENCY: STATUS: COMPLETED DATE ECHOCARDIOGRAM PERFOMED: Sep ECHOCARDIOLOGY LINOLEUM TILE LAYER: STACI Britt RCS Procedure was performed without incident. The Study transmitted to [facility] via [employer] system for interpretation by area attendant. When interpretation is complete, results can be found under [employer]. /es/ KI MCINTYRE Signed: 10/15/2024 08:17 EILEEN OLSONFIELD
--- OUTSIDE RECORDS SUMMARY | 2024-10-30 10:00 | XMS_ITS | Clinical Summary ---
[facility] Address [address] [place] [address] Care Team Providers Care Computer Forensic Specialist Name Role Phone Dea Momin MD Primary Care Provider [phone] Surgical History Surgery Date Site/Laterality Comments HIP ARTHROPLASTY Bilateral PROCEDURE: HISTORICAL HIP REPLACEMENT CATARACT EXTRACTION PROCEDURE: HISTORICAL CATARACT REMOVAL OTHER SURGICAL HISTORY PROCEDURE: HISTORY OTHER; COMMENT: Hernia repair x 2 OTHER SURGICAL HISTORY PROCEDURE: [place] ELVTN DEPRS SKL FX COMPOUND/COMMIND XDRL; COMMENT: & facial fractures - [facility] Medical History Medical History Date Comments Depression 07/15/2017 DX:Depression 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/15/2017 DX: Hip joint replacement status History of prostate cancer 09/27/2017 DX:Hi story of prostate cancer Chronic obstructive pulmonar y disease (CMS/HCC) 01/12/2017 DX:Chronic obstructive pulmo nary disease (HCC) Gastroesophageal reflux disease 01/03/2017 DX:Gastroesophageal reflux disease Glaucoma 01/03/2017 DX:Glaucoma Hiatal hernia 01/03/2017 DX:Hiatal hernia HLD (hyperlipidemia) 09/26/2017 DX:HLD (hyp erlipidemia) Hypertension 01/03/2017 DX:Hypertension Obstructive sleep apnea syndrome 01/03/2017 DX:Obstructive sleep apnea syndrome Tobacco use 09/26/2017 DX:Tobacco use Tubular adenoma 01/03/2017 DX:Tubular adeno ma Aortic stenosis 10/12/2017 DX:Aortic stenos is Family History Medical History Relation Name Comments Hypertension Brother Hypertension Sister Relation Name Status Comments Brother Sister Social History Tobacco Use Types Packs/Day Years Used Date Smoking Tobacco: Every Day Cigarettes Smokeless Tobacco: Never Alcohol Use Standard Drinks/Week Comments Yes 2 (1 standard drink = 0.6 oz pur e alcohol) Sex and Gender Information Value Date Recorded Sex Assigned at Not on file Legal Sex Male 6:17 AM EST Gender Identity Not on file Sexual Orientation Not on file Obstetrics History Plan of Treatment Health Maintenance Due Date Last Done Comments DTaP,Tdap,and Td Vaccines (1 - Tdap) 10/31/1958 Pneumococcal Vaccine: 50+ Ye ars (1 of 2 - PCV) 10/31/1958 Zoster Vaccines (1 of 2) 10/31/1989 RSV Immunization Patients 60 + Years Old (1 - 1-dose 75+ series) 10/31/2014 Cholesterol Screening (Lipid Panel) 07/24/2022 Depression Screening 07/24/2022 Falls Risk Assessment 07/24/2022 Social Influencers of Health Screening 07/24/2022 Hypertension/CHF/CAD Annual BMP Blood Test 08/05/2022 COVID-19 Vaccine (2023-2 5 season) 2024 Influenza Vaccine (#1) 2024 HIB Vaccines Aged Out No longer eligi ble based on patient's age to complete this topic HPV Vaccines Aged Out No longer eligi ble based on patient's age to complete this topic Hepatitis A Vaccines Aged Out No long er eligible based on patient's age to complete this topic Hepatitis B Vaccines Aged Out No long er eligible based on patient's age to complete this topic IPV Vaccines Aged Out No longer eligi ble based on patient's age to complete this topic MMR Vaccines Aged Out No longer eligi ble based on patient's age to complete this topic Meningococcal ACWY Vaccine Aged Out N o longer eligible based on patient's age to complete this topic Meningococcal B Vacine Aged Out No lo nger eligible based on patient's age to complete this topic RSV Immunization Patients Un fredrick 20 months Aged Out No longer eligible b ased on patient's age to complete this topic Varicella Vaccines Aged Out No longer eligible based on patient's age to complete this topic Care Teams Computer Forensic Specialist Relationship Specialty Start Date End Date Dea Momin MD [address] [place] [phone] PCP - General 02/24/21
--- OUTSIDE RECORDS SUMMARY | 2024-10-30 10:00 | XMS_ITS | Encounter Summary ---
Author Name [facility] [place] [facility] [place] Organization [facility] [place] Address [address] [place] [address] Care Team Providers Care Chain Maker Loom Control Name Role Phone TRACY VILLANUEVA Primary Care [...] PHI MEDEX BRONZ E December 19, 2013 [id number] GUSTAVO ARAMBULA SR PATIENT BANKERS LIFE & CASUALTY MEDICARE SUPPLEMEN PHI MEDIC ARE SUPPL EMENT Jul 21, 2007 NONE [id number] Edgar ARAMBULA PATIENT BCBS CT MEDICARE SUPPLEMEN PHI MEDEX BRONZ E December 19, 2013 [id number] GUSTAVO ARAMBULA SR PATIENT [place] ([place]ARD) MEDICARE SUPPLEMEN PHI MEDEX BRONZ E December 19, 2013 [id number] [phone] Edgar ARAMBULA [place] PATIENT MEDICARE (WNR) MEDICARE () PART A Oct 19, 2004 PART A [id number] Edgar ARAMBULA [place] PATIENT MEDICARE (WNR) MEDICARE (M) PART B Oct 19, 2004 PART B [id number] [phone] [id number] Edgar ARAMBULA [place] PATIENT MEDICARE (WNR) MEDICARE (M) PART A Oct 19, 2004 PART A [id number] Edgar ARAMBULA [place] PATIENT MEDICARE (WNR) MEDICARE (M) PART B Oct 19, 2004 PART B [id number] Edgar ARAMBULA [place] PATIENT MEDICARE (WNR) MEDICARE () PART A Oct 19, 2004 PART A [id number] 90A Edgar ARAMBULA [place] PATIENT MEDICARE (WNR) MEDICARE () PART B Oct 19, 2004 PART B [id number] 90A Edgar ARAMBULA [place] PATIENT MEDICARE (WNR) MEDICARE () PART A Oct 19, 2004 PART A [id number] 90A Edgar ARAMBULA [place] PATIENT MEDICARE (WNR) MEDICARE () PART B Oct 19, 2004 PART B [id number] 90A Edgar ARAMBULA [place] PATIENT MEDICARE (WNR) MEDICARE () PART A Oct 19, 2004 PART A [id number] [phone] Edgar ARAMBULAN PATIENT MEDICARE (WNR) MEDICARE () PART B Oct 19, 2004 PART B [id number] Edgar ARAMBULAN PATIENT Selected Encounter This section includes the information on record at [place] for the Encounter. Date/Time Encounter Type Encounter Description Reason Provider Source Jun 10, 2024 10:00 AM OFFICE O/P NEW LOW 30 MIN PODIATRY ICD-10-CM L60.0 Ingrowing nail ASHA MAYERS Encounter Template Text not used by [place] Assessments - Encounter Diagnoses This section includes the primary and secondary diagnoses documented for the Encounter. Date/Time Primary/Secondary Diagnosis Diagnosis Name Provider Source Jun 10, 2024 10:34 AM PRIMARY Ingrowing nail ASHA MAYERS [place] Jun 10, 2024 10:34 AM SECONDARY Pain in left toe(s) ASHA MAYERS [place] Jun 10, 2024 10:34 AM SECONDARY Pain in right toe(s) ASHA MAYERS Jun 10, 2024 10:34 AM SECONDARY Type 2 diabetes mellitus without complications ASHA MAYERS [place] Plan of Treatment: Future Appointments (+ 6 months) and Future Tests (+/- 45 days) The Plan of Treatment section includes future care activities for the patient from all [place] [facility]. This section includes future appointments and future [...] [place] [facility] Aug 28, 2024 10:00 AM AMBULATORY - MEDICINE [place] [facility] [place] [facility] Aug 28, 2024 10:30 AM AMBULATORY - MEDICINE [place] [facility] Sep 06, 2024 11:00 AM AMBULATORY - MEDICINE [place] [facility] [place] [facility] Sep 18, 2024 11:00 AM AMBULATORY - NONE [place] [facility] [place] [facility] Sep 26, 2024 12:30 PM AMBULATORY - MEDICINE [facility] Oct 08, 2024 09:30 AM AMBULATORY - PSYCHIATRY [place] [facility] [place] [facility] Oct 14, 2024 12:30 PM AMBULATORY - MEDICINE [place] [facility] [place] [facility] Oct 15, 2024 07:45 AM AMBULATORY - NONE [facility] [place] [facility] Oct 21, 2024 09:30 AM AMBULATORY - MEDICINE [facility] Oct 30, 2024 08:00 AM AMBULATORY - MEDICINE [place] [facility] [...] 2023 09:00 AM VA-TOBACCO USER EVERY DAY [place] Tobacco Use History This section includes a history of the smoking, or tobacco-related health factors, that were collected on or before the date of the Encounter. The data comes from the [place] facility where the Encounter took place. Date/Time Smoking Status/Tobacco Use Comment F acility December 25, 2023 09:00 AM VA-TOBACCO USE ADVICE [place] December 25, 2023 09:00 AM VA-TOBACCO USE MARINE ENGINEER NO [place] December 25, 2023 09:00 AM VA-TOBACCO USE MED NO [place] December 25, 2023 09:00 AM VA-TOBACCO USE WI 30 MIN OF WAKE UP [place] December 25, 2023 09:00 AM VA-TOBACCO USER EVERY DAY [place] Advance Directives: All historical and current Section [...] Apr 10, 2023 ADVANCE DIRECTIVE ESSIE STARK [place] [facility]ASQUE[place] [facility] Apr 19, 2007 ADVANCE DIRECTIVE VICTORIA JOHNSON [facility] Encounter Notes: All associated encounter notes [...] prevent cellular damage. Level of Understanding: Good /es/ ASHA MAYERS DPM OUTREACH CLINICIAN Signed: 06/10/2024 10:35 ASHA MAYERS [place] Jun 10, 2024 07:29 AM PODIATRY CONSULT: [...] COVID VACCINE DOSES + 3 BOOSTERS AT [facility] HPI: Pt. is a 83 yo alert WDWN CAUC MALE who presents for initial podiatric examination with Dr. 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 Patient has TYPE II DM & is [...] shoes and increased activity. Previous treatment: DR. CARDOSO [facility] PMH: Active problems - Computerized Problem List [...] 19. Disorder of lumbar disc (SNOMED CT 665221018) 20. Depression (SNOMED CT 95641172) 21. Dry Eye Syndromes * 22. 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 Localised, primary osteoarthritis 24. Prostate, Malign Neoplasm 25. Cataract, Cortical (Senile) 26. 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 Mixed hyperlipidaemia 28. Benign essential hypertension 29. POLYPS, COLON/LG BOWEL (BENIGN MAEGAN 30. 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 Protective sensation utilizing a [place]-Lola lOg monofilament is 10/10 bilateral. *NOTE: *YEARLY [...] this VA (local) and dispensed from another [place] or [facility] facility (remote) as well as inpatient [...] BILATERAL SENSORY CHECK: Includes 10 gram Monofilament ([place]-Lola) test of sensation. Intact (Greater than or [...] detailed handout on diabetic foot care. /reginaldo/ SAHA MAYERS DPM OUTREACH CLINICIAN Signed: 06/10/2024 10:35 ASHA MAYERS [place]
--- OUTSIDE RECORDS SUMMARY | 2024-10-30 10:00 | XMS_ITS | Encounter Summary ---
Author Name [facility] [place] Organization [facility] [place] Address [address] [place] [address] Care Team Providers Care Hydro Generation Supervisor Name Role Phone TRACY VILLANUEVA Primary [...] PHI MEDEX BRONZ E December 19, 2013 [id number] GUSTAVO ARAMBULA SR PATIENT [employer] LIFE [employer] CASUALTY MEDICARE SUPPLEMEN PHI MEDIC ARE SUPPL EMENT Jul 21, 2007 NONE [id number] [phone] Edgar ARAMBULA [place]IENT [place] MED[place]PPLEMEN PHI MEDEX BRONZ E December 19, 2013 [id number] [phone] GUSTAVO ARAMBULA SR PATIENT [place] MEDICARE SUPPLEMEN PHI MEDEX BRONZ E December 19, 2013 [id number] Edgar ARAMBULA PATIENT MEDICARE (WNR) MEDICARE (M) PART A Oct 19, 2004 PART A [id number] [id number] Edgar ARAMBULAN PATIENT MEDICARE (WNR) MEDICARE (M) PART B Oct 19, 2004 PART B [id number] 90A Edgar ARAMBULAN PATIENT MEDICARE (WNR) MEDICARE (M) PART A Oct 19, 2004 PART A [id number] [id number] Edgar ARAMBULAN PATIENT MEDICARE (WNR) MEDICARE (M) PART B Oct 19, 2004 PART B [id number] [id number] Edgar ARAMBULAN PATIENT MEDICARE (WNR) MEDICARE (M) PART A Oct 19, 2004 PART A [id number] 90A Edgar ARAMBULAN PATIENT MEDICARE (WNR) MEDICARE () PART B Oct 19, 2004 PART B [id number] 90A Edgar ARAMBULAN PATIENT MEDICARE (WNR) MEDICARE () PART A Oct 19, 2004 PART A [id number] 90A Edgar ARAMBULA PATIENT MEDICARE (WNR) MEDICARE () PART B Oct 19, 2004 PART B [id number] 90A Edgar ARAMBULAN PATIENT MEDICARE (WNR) MEDICARE () PART A Oct 19, 2004 PART A [id number] Edgar ARAMBULAN PATIENT MEDICARE (WNR) MEDICARE () PART B Oct 19, 2004 PART B [id number] Edgar ARAMBULA PATIENT Selected Encounter This section includes the information on record at [place] for the Encounter. Date/Time Encounter Type Encounter Description Reason Pro vider Source Oct 22, 2024 01:30 PM Outpatient Encounter ADMIN PAT ACTIVTIES (MASNONCT) IHE Encounter Template Text not used by [place] Plan of Treatment: Future Appointments (+ 6 months) and Future Tests (+/- 45 days) The Plan of Treatment section includes future care activities for the patient from all [place] [facility]. This section includes future appointments and future orders which are active, pending or scheduled. Future Appointments This section includes appointments that were scheduled to occur 6 months from the date of the Encounter, up to a maximum of 20 appointments. The data comes from all [facility]. Appointment Date/Time Appointment Type Appointme nt Facility Name Oct 30, 2024 08:00 AM [facility] Nov 11, 2024 01:30 PM [facility] Nov 12, 2024 10:30 AM AMBULATORY - PSYCHIATRY [facility] Nov 29, 2024 10:00 AM [facility] Jan 24, 2025 11:00 AM AMBULATORY - MEDICINE [facility] Active, Pending, and Scheduled Orders This section includes a listing of several types of active, pending, and scheduled orders, including clinic medications orders, diagnostic test orders, procedure orders and consult orders; where the start date of the order is 45 days before the date of the Encounter or 45 days after the date of theEncounter. The data comes from all [facility]. Test Date/Time Test Type Test Details Facility Name Oct 18, 2024 03:15 PM Consult Order COMMUNITY CARE-CARDIOLOGY Cons Cafeteria Counter Attendant's Choice [facility] Nov 11, 2024 12:00 AM Laboratory - Chemistry Order TSH BLOOD (SST-SERUM) [facility] Nov 11, 2024 12:00 AM Laboratory - Chemistry Order HEMOGLOBIN A1C PANEL BLOOD (LAV-BLOOD) [facility] Nov 11, 2024 12:00 AM Laboratory - Chemistry Order MICROALBUMIN CREATININE RATIO PANEL URINE (RANDOM) [facility] Nov 11, 2024 12:00 AM Laboratory - Chemistry Order VITAMIN D (25-OH) BLOOD (SST-SERUM) [facility] Nov 11, 2024 12:00 AM Laboratory - Chemistry Order CBC BLOOD (LAV-BLOOD) [facility] Nov 11, 2024 12:00 AM Laboratory - Chemistry Order BASIC METABOLIC PANEL (non-fasting) BLOOD (SST-SERUM) [facility] Nov 11, 2024 12:00 AM Laboratory - Chemistry Order LIPID PANEL, NON FASTING BLOOD (SST-SERUM) [facility] Nov 11, 2024 12:00 AM Laboratory - Chemistry Order LIVER FUNCTION BLOOD (SST-SERUM) [facility] Social History: Smoking Status (Most current) and Tobacco Use (All prior to encounter date) This section includes the most current, and the historical, smoking and tobacco- related health factors from the [place] facility where the Encounter took place. Current Smoking Status This section includes the most current smoking, or tobacco-related health factor, from the [place] facility where the Encounter took place. Date/Time Current Smoking Status Comment [facility] it December 25, 2023 09:05 AM VA-TOBACCO NEVER USED [place] [facility] Tobacco Use History This section includes a history of the smoking, or tobacco-related health factors, that were collected on or before the date of the Encounter. The data comes from the [place] facility where the Encounter took place. Date/Time Smoking Status/Tobac co Use Comment Facility Dec 13, 2022 03:00 PM VA-TOBACCO DOESNT USE WI 30 MIN WAKEUP [facility] [place] [facility] Dec 13, 2022 03:00 PM VA-TOBACCO USE 30 YEARS OR MORE [facility] [place] [facility] Dec 13, 2022 03:00 PM VA-TOBACCO USE ADVICE [facility] [place] [facility] Dec 13, 2022 03:00 PM VA-TOBACCO USE [place] ATTENDANT NO [facility] [facility] Nov 17, 2021 10:00 AM VA-TOBACCO USE [place] ATTENDANT NO [facility] [place] [facility] Nov 17, 2021 10:00 AM VA-TOBACCO USE MED NO [facility] [place] [facility] Nov 17, 2021 10:00 AM VA-TOBACCO USE WI 30 MIN OF WAKEUP [facility] [place] [facility] Nov 17, 2021 10:00 AM VA-TOBACCO USER EVERY DAY [facility] Oct 14, 2013 12:55 PM V1-PT NOT INTERESTED IN QUIT TOBACCO USE [facility] May 07, 2013 05:04 PM CURRENT SMOKER trying to stop [facility] May 07, 2013 05:04 PM V1-PT DECLINES REF TO TOBACCO CESS PRGM [facility] May 07, 2013 05:04 PM V1-PT DECLINES TOBACCO CESSATION MEDS [facility] May 07, 2013 05:04 PM V1-PT READY TO QUIT TOBACCO USE [facility] Dec 03, 2012 08:23 AM V1-PT DECLINES REF TO TOBACCO CESS PRGM [facility] Dec 03, 2012 08:23 AM V1-PT DECLINES TOBACCO CESSATION MEDS [facility] Dec 03, 2012 08:23 AM V1-PT THINKING ABOUT QUIT TOBACCO USE [facility] Jun 05, 2012 08:45 AM CURRENT SMOKER 1/2ppd [facility] Jun 05, 2012 08:45 AM V1-PT DECLINES REF TO TOBACCO CESS PRGM [facility] Jun 05, 2012 08:45 AM V1-PT THINKING ABOUT QUIT TOBACCO USE [facility] Jun 05, 2012 08:45 AM V1-TOBACCO CESS MEDS NOT PRESCRIBED Vet wants to talk to his provider-He is nervous about taking meds to quit- but he is interested in quitting [facility] Nov 25, 2011 09:14 AM V1-PT DECLINES REF TO TOBACCO CESS PRGM [facility] Nov 25, 2011 09:14 AM V1-PT DECLINES TOBACCO CESSATION MEDS [facility] Nov 25, 2011 09:14 AM V1-PT THINKING ABOUT QUIT TOBACCO USE [facility] May 06, 2011 01:02 PM CURRENT SMOKER [facility] May 06, 2011 01:02 PM V1-PT [...] IN PAST YEAR [facility] [place] [facility] Aug 26, 2008 09:28 AM CURRENT SMOKER 1/2 ppd [facility] [place] [facility] Aug 26, 2008 09:28 AM V1-PT DECLINES REF TO TOBACCO CESS PRGM [place] [facility] Aug 26, 2008 09:28 AM V1-PT READY TO QUIT TOBACCO USE [facility] [place] [facility] [...] QUIT TOBACCO USE [facility] [place] [facility] Feb 13, 2007 01:46 PM V1-PT DECLINES REF TO TOBACCO CESS PRGM [facility] [place] [facility] Feb 13, 2007 01:46 PM V1-PT DECLINES TOBACCO CESSATION MEDS [facility] [place] [facility] Feb 13, 2007 01:46 PM V1-PT THINKING ABOUT QUIT TOBACCO USE [facility] Oct 02, 2006 08:28 AM QUIT TOBACCO USE IN PAST YEAR 3 months ago [facility] Aug 19, 2005 08:33 AM QUIT TOBACCO USE IN PAST YEAR nonsmoker [facility] Sep 21, 2004 09:54 AM CURRENT SMOKER [facility] Sep 07, 2004 08:07 AM CURRENT SMOKER [facility] Sep 15, 2003 11:21 AM CURRENT SMOKER smokes one pk day [facility] Jul 23, 2003 01:57 PM CURRENT SMOKER [facility] Advance Directives: All historical and current Section Date Range: From patient's date of to the date document was created. This section includes ALL of a patient's completed or amended [place] Advance and Rescinded Directives. The entries below indicate that a directive exists for the patient, but an actual copy is not included with this document. The data comes from all [place] facilities. Date Advance Directives Provider Source Apr 10, 2023 ADVANCE DIRECTIVE ESSIE STARK [facility] Apr 19, 2007 ADVANCE DIRECTIVE VICTORIA JOHNSON [facility] Encounter Notes: All associated encounter notes This section contains the clinical notes associated to the Encounter. Date/Time Encounter Note(s) Provider Source Oct 22, 2024 01:40 PM ADDENDUM: LOCAL TITLE: Addendum STANDARD TITLE: ADDENDUM DATE OF NOTE: OCT 22, 2024@13:40:31 ENTRY DATE: OCT 22, 2024@13:40:32 AUTHOR: MYRNA SILVA EXP COSIGNER: URGENCY: STATUS: COMPLETED PATIENT RETURNED CALL AND STATED HE WOULD LIKE TO CONTINUE SEEING THE GEODETIC ENGINEER THAT HE HAS BEEN SEEING IN THE COMMUNITY. PATIENT STATES HE IS NOT SURE WHEN HIS LAST APPT IS BUT HIS NEXT [place] APPT IS ON OCTOBER 30, 2024. [facility]. /reginaldo/ MYRNA SILVA AMSA Signed: 10/22/2024 13:40 Receipt Acknowledged By: 10/22/2024 13:49 /es/ ALDAIR GREEN RN Referral Coordination Initiative Nurse === --- Original Document --- 10/22/24 ADMINISTRATIVE NOTE: ARTISTS' MODEL ATTEMPTED TO CONTACT , LVM FOR CONSULT VVC OR TELE APPT IN [place]. RETURN CALL TO TELE #[phone]. [facility] LETTER MAILED 10/22/2024. CARDIO. /reginaldo/ MYRNA SMITH Signed: 10/22/2024 13:30 MYRNA SILVA [facility] ([id number]) Oct 22, 2024 01:30 PM ADMINISTRATIVE NOT E: LOCAL TITLE: ADMINISTRATIVE NOTE STANDARD TITLE: ADMINISTRATIVE NOTE DATE OF NOTE: OCT 22, 2024@13:30 ENTRY DATE: OCT 22, 2024@13:30:18 AUTHOR: MYRNA SILVA EXP COSIGNER: URGENCY: STATUS: COMPLETED ADMINISTRATIVE NOTE Has ADDENDA ARTISTS' MODEL ATTEMPTED TO CONTACT , LVM FOR CONSULT VVC OR TELE APPT IN [place]. RETURN CALL TO TELE #[phone]. CARDIO LETTER MAILED 10/22/2024. CARDIO. /reginaldo/ MYRNA SMITH Signed: 10/22/2024 13:30 10/22/2024 ADDENDUM STATUS: COMPLETED PATIENT RETURNED CALL AND STATED HE WOULD LIKE TO CONTINUE SEEING THE GEODETIC ENGINEER THAT HE HAS BEEN SEEING IN THE COMMUNITY. PATIENT STATES HE IS NOT SURE WHEN HIS LAST APPT IS BUT HIS NEXT [facility] APPT IS ON OCTOBER 30, 2024. CARDIO. /reginaldo/ MYRNA SMITH Signed: 10/22/2024 13:40 Receipt Acknowledged By: * AWAITING SIGNATURE * ALDAIR GREEN [facility] ([id number]) Oct 22, 2024 01:30 PM LETTERS: LOCAL TITLE: PATIENT LETTER (B) STANDARD TITLE: LETTERS DATE OF NOTE: OCT 22, 2024@13:30 ENTRY DATE: OCT 22, 2024@13:30:45 AUTHOR: MYRNA SILVA EXP COSIGNER: URGENCY: STATUS: COMPLETED PATIENT LETTER (B) Has ADDENDA DEPARTMENT OF [facility] [address] [place] [address] Patient Call Center: DATE: OCT 22, 20[address] [address] Dear ; Thank you for choosing the [facility] [address] ([place]) [facility] as your primary choice for health care. As a partner in your health care, we are contacting you in writing since we have been unsuccessful in our attempts to reach you to date. We want to assure you we are doing everything possible to schedule Veterans for their [place] medical care appointments. We received a Consult for you for CARDIOLOGY and I was calling to see if I can get you scheduled for a Telephone or Video appointment. If you would like to be seen, please contact [place] Call Kimberly at [phone] ext. [phone] to schedule an appointment. If we do not hear back from you within 14 days from the date of this letter, we will discontinue the request. If you have already scheduled this appointment, please disregard this letter. Your health is important to us. Thank you for your service to our nation, and we look forward to hearing from you soon. Sincerely, [facility] [address] [id number] [place] [address] [facility] [address] [facility] [address] [place] [address] [place] [address] ext. [phone] [facility] [address] [facility] [address] [place] [address] [place] [address] ext. [phone] 10/22/2024 ADDENDUM STATUS: COMPLETED NOTE NOT MAILED DUE TO PATIENT RETURNED CALL AND REQUESTED TO CONTINUE SEEING CARDIO IN THE COMMUNITY.. CARDIO. /reginaldo/ MYRNA SILVA [facility] Signed: 10/22/2024 13:39 [id number]
--- OUTSIDE RECORDS SUMMARY | 2024-10-30 10:00 | XMS_ITS | Encounter Summary ---
Author Name [facility] [facility] [place] [facility] [place] [facility] [place] Address [address] [place] [address] Care Team Providers Care Owner Spa Director Name Role Phone TRACY VILLANUEVA Primary [...] PHI MEDEX BRONZ E December 19, 2013 [id number] GUSTAVO ARAMBULA SR PATIENT [employer]UAL[employer] MEDICARE SUPPLEMEN PHI MEDIC ARE SUPPL EMENT Jul 21, 2007 NONE [id number] Edgar ARAMBULA PATIENT [place] SUPPLEMEN PHI MEDEX BRONZ E December 19, 2013 [id number] [phone] GUSTAVO ARAMBULA SR PATIENT [place] MEDICARE SUPPLEMEN PHI MEDEX BRONZ E December 19, 2013 [id number] SEVABIEEdgar [place] PAT[place] ([place]) MEDICARE () PART A Oct 19, 2004 PART A [id number] [id number] FILEMONEEdgar [place] PAT[place]) MEDICARE () PART B Oct 19, 2004 PART B [id number] SEVABIEEdgar [place] PAT[place]) MEDICARE () PART A Oct 19, 2004 PART A [id number] SEVIGNEEdgar [place] PAT[place]) MEDICARE () PART B Oct 19, 2004 PART B [id number] SEVABIEEdgar [place] PAT[place]) MEDICARE () PART A Oct 19, 2004 PART A [id number] SEVIGNEEdgar [place] PAT[place]) MEDICARE () PART B Oct 19, 2004 PART B [id number] [id number] SEVIGNEEdgar [place] PAT[place]) MEDICARE () PART A Oct 19, 2004 PART A [id number] SEVABIEEdgar [place] PAT[place]) MEDICARE () PART B Oct 19, 2004 PART B [id number] SEVIGNEEdgar [place] PAT[place]) MEDICARE () PART A Oct 19, 2004 PART A [id number] [phone] SEVABIEEdgar [place] PAT[place]IC[place]) MEDICARE () PART B Oct 19, 2004 PART B [id number] [phone] SEVIGNEEdgar [place] PATIENT Selected Encounter This section includes the information on record at [facility] for the Encounter. Date/Time Encounter Type Encounter Description Reason Provider Source Jun 21, 2024 09:15 AM CMPTR OPHTH IMG OPTIC NERVE OPTOMETRY ICD-10-CM H40.1411 Capslr glaucoma w/pseudxf lens, right eye, mild stage PATIENCE STOVALL [facility] Encounter Template Text not used by [facility] Assessments - Encounter Diagnoses This section includes the primary and secondary diagnoses documented for the Encounter. Date/Time Primary/Secondary Diagnosis Diagnosis Name Provider Source Jun 21, 2024 02:00 PM PRIMARY Capslr glaucoma w/pseudxf lens, right eye, mild stage OSHINSKIE,PATIENCE FAUSTO J [facility] [place] [facility] Jun 21, 2024 02:00 PM SECONDARY Capslr glaucoma w/pseudxf lens, left eye, moderate stage OSHINSKIE,PATIENCE FAUSTO J [place] [facility] [place] [facility] Plan of Treatment: Future Appointments (+ 6 months) and Future Tests (+/- 45 days) The Plan of Treatment section includes future care activities for the patient from all [place] treatmentfacilities. This section includes future appointments and [...] - MEDICINE [facility] [place] [facility] Jul 05, 2024 09:00 AM AMBULATORY - REHAB MEDICIN E [facility] [place] [facility] Jul 30, 2024 09:30 AM AMBULATORY - PSYCHIATRY [facility] [place] [facility] Aug 05, 2024 09:45 AM AMBULATORY - MEDICINE [facility] [place] [facility] Aug 28, 2024 10:00 AM AMBULATORY - MEDICINE [facility] [place] [facility] Aug 28, 2024 10:30 AM AMBULATORY - MEDICINE [facility] [place] [facility] Sep 06, 2024 11:00 AM AMBULATORY - MEDICINE [facility] [place] [facility] Sep 18, 2024 11:00 AM AMBULATORY - NONE [facility] [place] [facility] Sep 26, 2024 12:30 PM [facility] Oct 08, 2024 09:30 AM AMBULATORY - PSYCHIATRY [facility] [place] [facility] Oct 14, 2024 12:30 PM AMBULATORY - MEDICINE [facility] [place] [facility] Oct 15, 2024 07:45 AM AMBULATORY - NONE [facility] [place] [facility] Oct 21, 2024 09:30 AM AMBULATORY - MEDICINE [facility] [place] Oct 30, 2024 08:00 AM AMBULATORY - MEDICINE [facility] [place] [facility] Nov 11, 2024 01:30 PM AMBULATORY - MEDICINE [facility] [place] [facility] Nov 12, 2024 10:30 AM AMBULATORY - PSYCHIATRY [facility] [place] [facility] Nov 29, 2024 10:00 AM AMBULATORY - MEDICINE [place] [facility] [place] [facility] Social History: Smoking Status [...] VA-TOBACCO NEVER USED [place] [facility] [place] [facility] Tobacco Use History This section includes a history of the smoking, or tobacco-related health factors, that were collected on or before the date of the Encounter. The data comes from the [place] facility where the Encounter took place. 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 [facility] [place] [facility] Dec 13, 2022 03:00 PM VA-TOBACCO USE MED NO [facility] [place] [facility] Dec 13, 2022 03:00 PM VA-TOBACCO USER EVERY DAY [facility] [place] [facility] Nov 17, 2021 10:00 AM VA-TOBACCO USE 30 YEARS OR MORE [facility] [place] [facility] Nov 17, 2021 10:00 AM VA-TOBACCO USE ADVICE [facility] Nov 17, 2021 10:00 AM VA-TOBACCO USE WHEEL MILL OPERATOR NO [facility] Nov 17, 2021 10:00 AM VA-TOBACCO USE MED NO [facility] Nov 17, 2021 10:00 AM VA-TOBACCO USE WI 30 MIN OF WAKEUP [facility] Nov 17, 2021 10:00 AM VA-TOBACCO USER EVERY DAY [facility] Oct 14, 2013 12:55 PM V1-PT NOT INTERESTED IN QUIT TOBACCO USE [facility] May 07, 2013 05:04 PM CURRENT SMOKER [facility] May 07, 2013 05:04 PM V1-PT DECLINES REF TO TOBACCO CESS PRGM [facility] May 07, 2013 05:04 PM V1-PT DECLINES TOBACCO CESSATION MEDS [facility] May 07, 2013 05:04 PM V1-PT READY TO QUIT TOBACCO USE [facility] Dec 03, 2012 08:23 AM V1-PT DECLINES REF TO TOBACCO CESS PRGM [facility] Dec 03, 2012 08:23 AM V1-PT DECLINES TOBACCO CESSATION MEDS [facility] Dec 03, 2012 08:23 AM V1-PT THINKING ABOUT QUIT TOBACCO USE [facility] Jun 05, 2012 08:45 AM CURRENT SMOKER 1/2ppd [facility] Jun 05, 2012 08:45 AM V1-PT DECLINES REF TO TOBACCO CESS PRGM [facility] Jun 05, 2012 08:45 AM V1-PT THINKING ABOUT QUIT TOBACCO USE [facility] Jun 05, 2012 08:45 AM V1-TOBACCO CESS MEDS NOT PRESCRIBED Vet wants to talk to his provider-He is nervous about taking meds to quit- but he is interested in [facility] [place] [facility] Nov 25, 2011 09:14 AM V1-PT DECLINES REF TO TOBACCO CESS PRGM [facility] [place] [facility] Nov 25, 2011 09:14 AM V1-PT DECLINES TOBACCO CESSATION MEDS [facility] [place] [facility] Nov 25, 2011 09:14 AM V1-PT THINKING ABOUT QUIT TOBACCO USE [facility] [place] [facility] May 06, 2011 01:02 PM CURRENT SMOKER [facility] [place] [facility] May 06, 2011 01:02 PM V1-PT DECLINES TOBACCO CESSATION MEDS [facility] [place] [facility] May 06, 2011 01:02 PM V1-PT NOT INTERESTED IN QUIT TOBACCO USE [facility] [place] [facility] Sep 24, 2010 08:51 AM V1-PT DECLINES TOBACCO CESSATION MEDS [facility] [place] [facility] Sep 24, 2010 08:51 AM V1-PT THINKING ABOUT QUIT TOBACCO USE [facility] [place] [facility] Mar 22, 2010 07:58 AM CURRENT SMOKER 1/2 ppd [facility] [place] [facility] Feb 25, 2009 12:05 PM QUIT TOBACCO USE IN PAST YEAR [facility] [place] [facility] Aug 26, 2008 09:28 AM CURRENT SMOKER 1/2 ppd [facility] [place] [facility] Aug 26, 2008 09:28 AM V1-PT DECLINES REF TO TOBACCO CESS PRGM [place] [facility] [place] [facility] Aug 26, 2008 09:28 AM V1-PT READY TO QUIT TOBACCO USE [facility] [place] [facility] Dec 19, 2007 10:08 AM V1-PT DECLINES REF TO TOBACCO CESS PRGM [facility] [place] [facility] Dec 19, 2007 10:08 AM V1-PT DECLINES TOBACCO CESSATION MEDS [facility] [place] [facility] Dec 19, 2007 10:08 AM V1-PT THINKING ABOUT QUIT TOBACCO USE [facility] [place] [facility] Sep 11, 2007 11:10 AM CURRENT SMOKER [facility] [place] [facility] Sep 11, 2007 11:10 AM V1-PT DECLINES REF TO TOBACCO CESS PRGM [facility] [place] [facility] Sep 11, 2007 11:10 AM V1-PT DECLINES TOBACCO CESSATION MEDS [facility] Sep 11, 2007 11:10 AM V1-PT THINKING ABOUT QUIT TOBACCO USE [facility] Feb 13, 2007 01:46 PM V1-PT DECLINES REF TO TOBACCO CESS PRGM [facility] Feb 13, 2007 01:46 PM V1-PT DECLINES TOBACCO CESSATION MEDS [facility] Feb 13, 2007 01:46 PM V1-PT THINKING ABOUT QUIT TOBACCO USE [facility] Oct 02, 2006 08:28 AM QUIT TOBACCO USE IN PAST YEAR 3 months ago [facility] Aug 19, 2005 08:33 AM QUIT TOBACCO USE IN PAST YEAR nonsmoker [facility] Sep 21, 2004 09:54 AM CURRENT SMOKER [facility] Sep 07, 2004 08:07 AM CURRENT SMOKER [facility] Sep 15, 2003 11:21 AM CURRENT SMOKER smokes one pk day [facility] Jul 23, 2003 01:57 PM CURRENT SMOKER [facility] Advance Directives: All historical and [...] Apr 10, 2023 ADVANCE DIRECTIVE ESSIE STARK [facility] Apr 19, 2007 ADVANCE DIRECTIVE [...] DATE: JUN 21, 2024@10:16:27 AUTHOR: MARILYNN CORRAL EXP COSIGNER: BARBARA STOVALL URGENCY: STATUS: COMPLETED CONSULT REPORT/OPTOMETRY OCT Has ADDENDA RNFL OCT report: RNFL OCT reviewed for patient with 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 Average RNFL thickness 77 microns. No thinning noted all quadrants. OS Signal strength: 7/10 OS: average c/d 0.69, vertical c/d 0.70, [...] check /reginaldo/ Barbara Stovall OD Fee Basis Back Shoe Operator Signed: 06/21/2024 14:00 for MARILYNN CORRAL OPTOMETRY STUDENT /reginaldo/ Barbara Stovall OD Fee Basis Back Shoe Operator Cosigned: 06/21/2024 14:00 06/21/2024 ADDENDUM STATUS: COMPLETED I reviewed the OCT and VF and agree with assessment and plan /reginaldo/ Barbara Stovall OD Fee Basis Back Shoe Operator Signed: 06/21/2024 14:00 BARBARA STOVALL [facility]
--- OUTSIDE RECORDS SUMMARY | 2024-10-30 10:00 | XMS_ITS | Encounter Summary ---
Author Name [facility] [place] Organization [facility] [place] [facility] [place] Address [address] [place] [address] Care Team Providers Care Head Lineman Name Role Phone TRACY VILLANUEVA Primary Care [...] PHI MEDEX BRONZ E December 19, 2013 [id number] GUSTAVO ARAMBULA SR PATIENT [employer] & CASUALTY MEDICARE SUPPLEMEN PHI MEDIC ARE SUPPL EMENT Jul 21, 2007 NONE [id number] [phone] Edgar ARAMBULA PATIENT [place] MED[place] SUPPLEMEN PHI MEDEX BRONZ E December 19, 2013 [id number] GUSTAVO ARAMBULA SR PATIENT [place] OF [place] (BLUECARD) MEDICARE SUPPLEMEN PHI MEDEX BRONZ E December 19, 2013 [id number] Edgar ARAMBULAN PATIENT MEDICARE (WNR) MEDICARE (M) PART A Oct 19, 2004 PART A [id number] [id number] Edgar ARAMBULA [place] PATIENT MEDICARE (WNR) MEDICARE (M) PART B Oct 19, 2004 PART B [id number] [phone] Edgar ARAMBULA [place] PATIENT MEDICARE (WNR) MEDICARE (M) PART A Oct 19, 2004 PART A [id number] [id number] Edgar ARAMBULA [place] PATIENT MEDICARE (WNR) MEDICARE (M) PART B Oct 19, 2004 PART B [id number] [id number] Edgar ARAMBULA [place] PATIENT MEDICARE (WNR) MEDICARE (M) PART A Oct 19, 2004 PART A [id number] Edgar ARAMBULA [place] PATIENT MEDICARE (WNR) MEDICARE (M) PART B Oct 19, 2004 PART B [id number] [id number] Edgar ARAMBULAN PATIENT MEDICARE (WNR) MEDICARE () PART A Oct 19, 2004 PART A [id number] 90A Edgar ARAMBULAN PATIENT MEDICARE (WNR) MEDICARE () PART B Oct 19, 2004 PART B [id number] 90A Edgar ARAMBULAN PATIENT MEDICARE (WNR) MEDICARE () PART A Oct 19, 2004 PART A [id number] [phone] Edgar ARAMBULA PATIENT MEDICARE (WNR) MEDICARE (M) PART B Oct 19, 2004 PART B [id number] [phone] Edgar ARAMBULA PATIENT Selected Encounter This section includes the information on record at [place] for the Encounter. 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 Date/Time Primary/Secondary Diagnosis Diagnosis Name Provider Source May 22, 2024 02:58 PM PRIMARY Athscl heart disease of [place] coronary artery w/o ang pctrs KAYTRACY Dannie [facility] May 22, 2024 02:58 PM SECONDARY Chronic obstructive pulmonary disease, unspecified KAYTRACY Dannie [facility] May 22, 2024 02:58 PM SECONDARY Essential (primary) hypertension KAYTRACY Dannie [facility] May 22, 2024 02:58 PM SECONDARY snf (current) use of anticoagulants KAYTRACY [facility] May 22, 2024 02:58 PM SECONDARY Mixed hyperlipidemia KAYTRACY Dannie [facility] May 22, 2024 02:58 PM SECONDARY Peripheral vascular disease, unspecified KAYTRACY C [facility] May 22, 2024 02:58 PM SECONDARY Tobacco use KAYTRACY C [facility] May 22, 2024 02:58 PM SECONDARY Type 2 diabetes mellitus without complications TRACY VILLANUEVA [facility] Plan of Treatment: Future Appointments (+ 6 months) and Future Tests (+/- 45 days) The Plan of Treatment section includes future care activities for the patient [facility] This section includes future appointments and future orders which are active, pending or scheduled. Future Appointments This section includes appointments that were scheduled to occur 6 months from the date of the Encounter, up to a maximum of 20 appointments. The data comes from all [place] treatment facilities. Appointment Date/Time Appointment Type Appointme nt Facility Name May 31, 2024 11:00 AM AMBULATORY - REHAB MEDICIN [facility] [place] [facility] May 31, 2024 12:00 PM AMBULATORY - MEDICINE [facility] [place] [facility] Jun 10, 2024 10:00 AM [facility] Jun 11, 2024 09:30 AM AMBULATORY - PSYCHIATRY [facility] [place] [facility] Jun 13, 2024 10:00 AM AMBULATORY - MEDICINE [facility] [place] [facility] Jun 19, 2024 11:00 AM AMBULATORY - NONE [facility] [place] [facility] Jun 21, 2024 09:00 AM AMBULATORY - MEDICINE [facility] [place] [facility] Jun 21, 2024 09:15 AM AMBULATORY - MEDICINE [facility] [place] [facility] Jun 21, 2024 09:30 AM AMBULATORY - MEDICINE [facility] [place] [facility] Jun 26, 2024 08:00 AM AMBULATORY - MEDICINE [facility] [place] [facility] Jul 05, 2024 09:00 AM AMBULATORY - REHAB MEDICIN E [facility] [place] [facility] Jul 30, 2024 09:30 AM AMBULATORY - PSYCHIATRY [facility] [place] [facility] Aug 05, 2024 09:45 AM AMBULATORY - MEDICINE [facility] [place] [facility] Aug 28, 2024 10:00 AM AMBULATORY - MEDICINE [facility] [place] [facility] Aug 28, 2024 10:30 AM AMBULATORY - MEDICINE [facility] [place] [facility] Sep 06, 2024 11:00 AM AMBULATORY - MEDICINE [facility] [place] [facility] Sep 18, 2024 11:00 AM AMBULATORY - NONE [facility] [place] [facility] Sep 26, 2024 12:30 PM AMBULATORY - MEDICINE [facility] Oct 08, 2024 09:30 AM AMBULATORY - PSYCHIATRY [facility] [place] [facility] Oct 14, 2024 12:30 PM AMBULATORY - MEDICINE [facility] [place] [facility] Lab Results: +/- 30 days of the encounter This section includes the Chemistry and Hematology Lab Results on record with [place] for the patient. Radiology Reports and Pathology Reports are provided separately, in subsequent sections. Lab Results This section contains the Chemistry/Hematology Results that were resulted 30 days before or 30 daysafter the date of the Encounter. Date/Time Source Result Type Result - Unit Interpretation Reference Range Comment Apr 25, 2024 07:51 AM [facility] HEMOGLOBIN A1C PANEL Specimen Type: BLOOD Comment: [...] 13, 2024 02:36 PM Reporting Lab: [address] [address] Performing Lab: [address] [address] HEMOGLOBIN A1C 6.8 H 4.0-5.6 Apr 25, 2024 07:51 AM [facility] MICROALBUMIN CREATININE RATIO PANEL Spe cimen Type: URINE No comment entered. Ordering Provider: TRACY VILLANUEVA Report Released Date/Time: Feb 13, 2024 02:36 PM Reporting Lab: [address] [address] Performing Lab: [address] [address] MICROALBUMIN/C REATININE RATIO 16.0 mg/g 0-29.9 MICROALBUMIN,Q UANTITATIVE 2.3 mg/dL RR UNAVAIL CREATININE URINE 143.92 mg/dL Apr 25, 2024 07:51 AM [facility] BASIC METABOLIC PANEL (non-fasting) Spe cimen Type: SERUM No comment entered. Ordering Provider: TRACY VILLANUEVA Report Released Date/Time: Feb 13, 2024 02:36 PM Reporting Lab: [address] [address] Performing Lab: [address] [address] UREA NITROGEN 15 mg/dL 7-25 GLUCOSE 173 mg/dL H 65-100 SODIUM 133 mmol/L L 135-145 POTASSIUM 4.2 mmol/L 3.5-5.0 CHLORIDE 100 mmol/L 100-110 CO2 22 meq/L 20-30 CREATININE, Serum 0.74 mg/dL 0.50-1.40 eGFR(CKD-EPI 2020) 89 mL/min >60 Apr 15, 2024 08:39 AM [facility] HEMOGLOBIN A1C PANEL Specimen Type: BLOOD Comment: [...] Apr 09, 2024 09:19 AM Reporting Lab: [facility] [address] [address] Performing Lab: [address] [address] HEMOGLOBIN A1C 6.3 H 4.0-5.6 Apr 15, 2024 08:39 AM [facility] LIVER FUNCTION Specimen Type: SERUM No comment entered. Ordering Provider: TRACY VILLANUEVA Report Released Date/Time: Apr 09, 2024 09:19 AM Reporting Lab: [address] [address] Performing Lab: [address] [address] PROTEIN,TOTAL 7.3 g/dL 6.0-8.3 ALBUMIN 4.5 g/dL 3.5-5.0 ALKALINE PHOSPHATASE 62 U/L 40-150 AST 35 U/L H 5-34 ALT 27 U/L BILIRUBIN, TOTAL 2.5 mg/dL H 0.2-1.2 BILIRUBIN, DIRECT 0.7 mg/dL H 0-0.5 Apr 15, 2024 08:39 AM [facility] LIPID PANEL FASTING Specimen Type: SERUM No comment entered. Ordering Provider: TRACY VILLANUEVA Report Released Date/Time: Apr 09, 2024 09:19 AM Reporting Lab: [address] [address] Performing Lab: [address] [address] CHOLESTEROL 137 mg/dL TRIGLYCERIDE 63 mg/dL 0-150 LDL calculated 63 mg/dL 0-129 CHOL/HDL 2.2 HDL CHOLESTEROL 61 mg/dL H 40-60 Apr 15, 2024 08:39 AM [facility] BASIC METABOLIC PANEL (fasting) Specime n Type: SERUM No comment entered. Ordering Provider: TRACY VILLANUEVA Report Released Date/Time: Apr 09, 2024 09:19 AM Reporting Lab: [address] [address] Performing Lab: [facility] [address] [address] UREA NITROGEN 9 mg/dL 7-25 GLUCOSE 159 mg/dL H 65-100 SODIUM 116 mmol/L LL 135-145 POTASSIUM 3.4 mmol/L L 3.5-5.0 CHLORIDE 81 mmol/L L 100-110 CO2 23 meq/L 20-30 CREATININE, Serum 0.69 mg/dL 0.50-1.40 eGFR(CKD-EPI 2020) >90 mL/min >60 Apr 15, 2024 08:39 AM [facility] MICROALBUMIN CREATININE RATIO PANEL Spe cimen Type: URINE No comment entered. Ordering Provider: TRACY VILLANUEVA Report Released Date/Time: Apr 09, 2024 09:19 AM Reporting Lab: [address] [address] Performing Lab: [address] [address] MICROALBUMIN/C REATININE RATIO 83.0 mg/g H 0-29.9 MICROALBUMIN,Q UANTITATIVE 16.8 mg/dL RR UNAVAIL CREATININE URINE 202.40 mg/dL Apr 15, 2024 08:39 AM [facility] VITAMIN D (25-OH) Specimen Type: SERUM No comment entered. Ordering Provider: TRACY VILLANUEVA Report Released Date/Time: Apr 09, 2024 09:19 AM Reporting Lab: [address] [address] Performing Lab: [address] [address] VITAMIN D (25-OH) 49 ng/mL 20-50 Apr 15, 2024 08:39 AM [facility] CBC Specimen Type: BLOOD Comment: MCHC >36, SPECIMEN 1+ ICTERIC, QNS FOR PLASMA REPLACEMENT INTERPRET RESULTS WITH CAUTION, SUGGEST PROPER REDRAW SHORT DRAW Ordering Provider: TRACY VILLANUEVA Report Released Date/Time: Apr 09, 2024 09:19 AM Reporting Lab: [address] [address] Performing Lab: [address] [address] WBC 8.70 10*3/uL 4.50-11.00 RBC 4.75 10*6/uL [...] 76 156/74 19 98 60.3 130 25 [facility] Social History: Smoking Status (Most current) and Tobacco Use (All prior to encounter date) This section includes the most current, and the historical, smoking and tobacco- related health factors from the [place] facility where the Encounter took place. Current Smoking Status This section includes the most current smoking, or tobacco-related health factor, from the [place] facility where the Encounter took place. Date/Time Current Smoking Status Comment Facil ity December 25, 2023 09:00 AM VA-TOBACCO USER EVERY DAY [facility] Tobacco Use History This section includes a history of the smoking, or tobacco-related health factors, that were collected on or before the date of the Encounter. The data comes from the [place] facility where the Encounter took place. Date/Time Smoking Status/Tobacco Use Comment F acility December 25, 2023 09:00 AM VA-TOBACCO USE ADVICE [facility] December 25, 2023 09:00 AM VA-TOBACCO USE RATOPRINTER NO [facility] December 25, 2023 09:00 AM VA-TOBACCO USE MED NO [facility] December 25, 2023 09:00 AM VA-TOBACCO USE WI 30 MIN OF WAKE UP [facility] December 25, 2023 09:00 AM VA-TOBACCO USER EVERY DAY [facility] Advance Directives: All historical and current Section Date Range: From patient's date of to the date document was created. This section includes ALL of a patient's completed or amended [place] Advance and Rescinded Directives. The entries below indicate that a directive exists for the patient, but an actual copy is not included with this document. The data comes from all [place] facilities. Date Advance Directives Provider Source Apr 10, 2023 ADVANCE DIRECTIVE ESSIE STARK [facility] Apr 19, 2007 ADVANCE DIRECTIVE VICOTRIA JOHNSON [facility] Encounter Notes: All associated [...] STATUS: COMPLETED PRIMARY CARE VISIT GUSTAVO CATHERINE ARAMBULA, is a 83 y/o WHITE MALE who presents today at the [place] Clinic. TYPE OF VISIT: Face to face [...] - lipids wnl in March. No hx [place]. On apixaban. Followed by cardiology. PVD with hx athereectomy - on Eliquis. DM2 - a1c 6.8. Satble on metformin, statin. Denies neuropathy. Needs to see podiatry for routine nail care. Recent labs reviewed and all medications were reconciled during this visit. HEALTHCARE PROVIDERS: cardiology HISTORY: PERIOD OF SERVICE - [facility] FROM December TO Oct COMBAT SERVICE INDICATED: [...] NOW AIMS Testing DUE NOW [facility] Referral Mar 11 Influenza Immunization DUE NOW Medication Reconciliation DUE NOW HTN Assess for Elevated BP>=140/90 DUE NOW Opioid Drug Screening V2 Jul 04 Eye Care At-Risk Screen DUE NOW (Optional) Whole Health Documentation DUE NOW ASSESSMENT/PLAN: Active problems - Computerized Problem List is the source for the followin. Arteriosclerotic heart disease - continue apixaban until risk > benefit. No hx [place]. Followed by cardiology. Continue management of comorbid [...] of disease. 8. Tobacco use (SNOMED CT [id number]) - wants to try to quit again. [...] this [facility] (local) and dispensed from another [place] or [facility] facility (remote) as well [...] RETINOPATHY: Diabetes Diagnosis Information: Problem Diagnosis: 05/14/2024 [id number] (SNOMED CT) Type 2 diabetes mellitus Date Entered: 09/25/2023; Date Last Modified: 05/14/2024 Status: ACTIVE; Priority: UNDEFINED Prov. Narr. - Diabetes mellitus type 2 MACULAR DEGENERATION: Macular Degeneration Risk Factors Information: Reminder Term: VA-AMD RISK FACTORS Problem Diagnosis: 05/22/2024 I25.10 (ICD-10-CM) Atherosclerotic Heart Disease of [place] Coronary Artery without Angina Pectoris Date Entered: [...] NURSE PRACTITIONER Signed: 05/22/2024 14:59 TRACY VILLANUEVA May 09, 2024 02:29 PM PRIMARY CARE TELEP MELVI ENCOUNTER NOTE: LOCAL TITLE: TELEPHONE NOTE/PRIMARY CARE STANDARD TITLE: PRIMARY CARE TELEPHONE ENCOUNTER NOTE DATE OF NOTE: MAY 09, 2024@14:29 ENTRY DATE: MAY 09, 2024@14:29:36 AUTHOR: RABIA MANN EXP COSIGNER: URGENCY: STATUS: COMPLETED Supervisor Fruit [employer] called to [ ] Schedule primary care appt [ ] Reschedule primary care appt. [X} Remind of upcoming primary care appt. SPOKE WITH: [ ] Fasting blood work needed, and vet reminded. [ ] Non fasting blood work needed, and vet reminded. [X} No labs needed. /reginaldo/ RABIA MANN ADVANCED PROJECT INTERN Signed: 05/09/2024 14:29 RABIA MANN May 09, 2024 02:21 PM ADMINISTRATIVE NOT E: LOCAL TITLE: ADMINISTRATIVE NOTE STANDARD TITLE: ADMINISTRATIVE NOTE DATE OF NOTE: MAY 09, 2024@14:21 ENTRY DATE: MAY 09, 2024@14:21:14 AUTHOR: RABIA MANN EXP COSIGNER: URGENCY: STATUS: COMPLETED AMSA REQUESTED NON VA RECORDS DIRECTED FROM CONTACT LISTED BELOW : [facility] FAX CONFIRMED /reginaldo/ RABIA MANN ADVANCED PROJECT INTERN Signed: 05/09/2024 14:29 RABIA MANN
--- OUTSIDE RECORDS SUMMARY | 2024-10-30 10:00 | XMS_ITS | Encounter Summary ---
Author Name [facility] [place] [facility] [place] [facility] [place] Address [address] [place] [address] Care Team Providers Care Cut Out Stitcher Name Role Phone TRACY VILLANUEVA Primary Care [...] PHI MEDEX BRONZ E December 19, 2013 [id number] GUSTAVO ARAMBULA SR PATIENT [employer] LIFE [employer] CASUALTY MEDICARE SUPPLEMEN PHI MEDIC ARE SUPPL EMENT Jul 21, 2007 NONE [id number] Edgar ARAMBULA PATIENT [place]BS [place] MEDICARE SUPPLEMEN PHI MEDEX BRONZ E December 19, 2013 [id number] [phone] GUSTAVO ARAMBULA SR PATIENT [place] OF [place] ([place]ARD) MEDICARE SUPPLEMEN PHI MEDEX BRONZ E December 19, 2013 [id number] [phone] Edgar ARAMBULA PATIENT MEDICARE (WNR) MEDICARE () PART A Oct 19, 2004 PART A [id number] Edgar ARAMBULA [place] PATIENT MEDICARE (WNR) MEDICARE (M) PART B Oct 19, 2004 PART B [id number] Edgar ARAMBULA [place] PATIENT MEDICARE (WNR) MEDICARE (M) PART A Oct 19, 2004 PART A [id number] [id number] Edgra ARAMBULAN PATIENT MEDICARE (WNR) MEDICARE (M) PART B Oct 19, 2004 PART B [id number] Edgar ARAMBULAN PATIENT MEDICARE (WNR) MEDICARE () PART A Oct 19, 2004 PART A [id number] Edgar ARAMBULA [place] PATIENT MEDICARE (WNR) MEDICARE () PART B Oct 19, 2004 PART B [id number] [id number] Edgar ARAMBULAN PATIENT MEDICARE (WNR) MEDICARE () PART A Oct 19, 2004 PART A [id number] [phone] Edgar ARAMBULAN PATIENT MEDICARE (WNR) MEDICARE () PART B Oct 19, 2004 PART B [id number] 90A Edgar ARAMBULAN PATIENT MEDICARE (WNR) MEDICARE () PART A Oct 19, 2004 PART A [id number] [phone] Edgar ARAMBULA PATIENT MEDICARE (WNR) MEDICARE () PART B Oct 19, 2004 PART B [id number] Edgar ARAMBULA PATIENT Selected Encounter This section includes the information on record at [place] for the Encounter. Date/Time Encounter Type Encounter Description Reason Provider Source Mar 11, 2024 09:00 AM OFFICE O/P EST MOD 30 MIN PRIMARY CARE/MEDICINE ICD-10-CM I10 Essential (primary) hypertension SOL VILLANUEVA Encounter Template Text not used by [place] Assessments - Encounter Diagnoses This section includes the primary and secondary diagnoses documented for the Encounter. Date/Time Primary/Secondary Diagnosis Diagnosis Name Provider Source Mar 12, 2024 08:22 AM PRIMARY Essential (primary) hypertension TRACY VILLANUEVA [place] Mar 12, 2024 08:22 AM SECONDARY Acute eczematoid otitis externa, bilateral TRACY VILLANUEVA [place] Mar 12, 2024 08:22 AM SECONDARY Anorexia TRACY VILLANUEVA [place] Mar 12, 2024 08:22 AM SECONDARY Chronic obstructive pulmonary disease, unspecified TRACY VILLANUEVA [place] Mar 12, 2024 08:22 AM SECONDARY Generalized anxiety disorder TRACY VILLANUEVA [place] Mar 12, 2024 08:22 AM SECONDARY Major depressive disorder, recurrent, unspecified TRACY VILLANUEVA [place] Mar 12, 2024 08:22 AM SECONDARY Nausea TRACY VILLANUEVA [place] Mar 12, 2024 08:22 AM SECONDARY Osteoarthritis of hip, unspecified TRACY VILLANUEVA [place] Mar 12, 2024 08:22 AM SECONDARY Tobacco use TRACY VILLANUEVA [place] Mar 12, 2024 08:22 AM SECONDARY Type 2 diabetes mellitus without complications TRACY VILLANUEVA [place] Plan of Treatment: Future Appointments (+ 6 months) and Future Tests (+/- 45 days) The Plan of Treatment section includes future care activities for the patient from all [place] [facility]. This section includes future appointments and [...] 08, 2024 09:30 AM AMBULATORY - MEDICINE [place] [facility] [place] [facility] Apr 10, 2024 10:45 AM AMBULATORY - MEDICINE [place] [facility] [place] [facility] Apr 26, 2024 11:00 AM AMBULATORY - MEDICINE [facility] [place] [facility] Apr 30, 2024 08:30 AM AMBULATORY - PSYCHIATRY [facility] [place] [facility] May 01, 2024 11:00 AM AMBULATORY - NONE [facility] [place] [facility] May 14, 2024 11:30 AM AMBULATORY - MEDICINE [facility] May 31, 2024 11:00 [...] [facility] [place] [place] [facility] Vital Signs: All taken on the encounter date This section contains inpatient and outpatient Vital Signs collected on the date of the Encounter. Date/Time Temperature Pulse Blood Pressure Respiratory Rate SP02 Pain Height Weight Body Mass Index Source Mar 11, 2024 09:00 AM 165/77 [facility] Mar 11, 2024 08:59 AM 98.3 80 173/71 19 98 60.3 132.6 26 [facility] Social History: Smoking Status (Most current) [...] 2023 09:00 AM VA-TOBACCO USER EVERY DAY [place] Tobacco Use History This section includes a history of the smoking, or tobacco-related health factors, that were collected on or before the date of the Encounter. The data comes from the [place] facility where the Encounter took place. 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 The data comes from all [place] treatment facilities. 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 1019 images were received by the [place] National Teleradiology Program (NTP) for interpretation. RADIATION [...] as above. READING PHYSICIAN: Ck Jean M.D. -[id number] 02/20/2024 12:57 PDT [facility] National Teleradiology Program [phone] (For Medical Practitioner Use Only) Attention Patients / Veterans: If you have questions or concerns about these test results, please contact your ordering provider or primary care team. Primary Diagnostic Code: SIGNIFICANT ABNORMALITY, ATTN NEEDED Primary Interpreting Staff: RADIOLOGY,OUTSIDE SERVICE, Staff Physician / RADIOLOGY,OUTSIDE SERVICE [facility] [place] [facility] Encounter Notes: All associated encounter notes [...] ARAMBULA, is a 83 y/o WHITE MALE Call who presents today at the [place] Clinic. TYPE OF VISIT: Face to face [...] this visit. HISTORY: PERIOD OF SERVICE - [employer] FROM December TO Oct COMBAT SERVICE INDICATED: [...] of note PREVENTIVE MEDICINE GOALS Info Only: [employer] DUE NOW Advance Directive [...] Rx, followed by 4. Depression (SNOMED CT 02560059) - see above. 5. anorexia - appetite improving, weight stabilizing. Continue Remeron, Ensure. Is going to reschedule his appt with nutrition. 6. Chronic obstructive lung disease - sx stable. Maintenance and rescue inhalers reordered today. 7. Tobacco use (SNOMED CT [id number]) - interested in smoking cessation. Nicotine patches [...] NURSE PRACTITIONER Signed: 03/12/2024 08:22 TRACY VILLANUEVA [place]
--- OUTSIDE RECORDS SUMMARY | 2024-10-30 10:00 | XMS_ITS | Continuity of Care Document ---
Author Organization [facility] Address [address] [place] [address]- Care Team Providers Care Barrel Cutter Name Role Phone Nick SCHROEDER ([place]), Berry Hernández Primary Care Physician Encounter [facility] [place] Date(s): 09/20/24 - 10/20/24 [facility] [address] [place] [id number] Attending Physician: Cat Barnett Admitting Physician: Cat Barnett Referring Physician: Cat Barnett Referring Physician: Savanna James Encounter Type: Triage Allergies, Adverse Reactions, Alerts Substance Criticality Severity Reaction Reaction Severity Status gemfibrozil diarrhea Active lisinopril Active Immunizations Given and Recorded Vaccine Date Status Refusal Reason SARS-CoV-2 (COVID-19) mRNA BNT-162b2 vac 10/16/20 Given pneumococcal 23-valent vaccine 02/02/15 Given Medications amLODIPine 10 mg oral tablet 1 tablet = 10 mg, By Mouth, Daily, TAKE 1 TABLET BY MOUTH EVERY DAY Start Date: 01/19/23 Status: Ordered Repeat number: 1 apixaban 5 mg oral tablet = 5 mg, By Mouth, 2 times a day, # 60 tablet, 0 Refills, Maintenance, 02/03/23 1:14:00 PM EDT, Tablet, [facility]/pharmacy #[id number], Partial fill upon patient request if the prescription is for a schedule II opioid drug., 158, cm, 02/03/23 11:18:00 EDT, Height, 68, kg, 01/31/23 8:07:00 EDT, Dry Weight Start Date: 02/03/23 Status: Ordered Quantity: 60.0 Unit: tablet Repeat number: 1 atorvastatin 40 mg oral tablet 1 tablet = 40 mg, By Mouth, Daily, # 30 tablet, 0 Refills, Maintenance, 02/01/15 12:16:49 AM EDT, Tablet Start Date: 02/01/15 Status: Ordered Quantity: 30.0 Unit: tablet Repeat number: 1 citalopram 20 mg oral tablet 20 mg, 1, tablet, By Mouth, Daily, # 30 tablet, Refills 0, Maintenance, 04/16/24 3:26:00 PM EDT, Partial fill upon patient request if the prescription is for a schedule II opioid drug. Start Date: 04/16/24 Status: Ordered Quantity: 30.0 Unit: tablet Repeat number: 1 Combivent Respimat 1 puffs, Inhalation, 4 times a day, 0 Refills, Maintenance, 03/09/16 11:24:45 PM EDT Start Date: 03/09/16 Status: Ordered Repeat number: 1 fluticasone-salmeterol 500 mcg-50 mcg inhalation powder 1, inhalation, Inhalation, 2 times a day, rinse mouth and throat after use, Refills 0, Maintenance,02/04/24 11:54:00 AM EDT, Powder Start Date: 02/04/24 Status: Ordered Repeat number: 1 hydrOXYzine pamoate 25 mg oral capsule 1 capsule = 25 mg, By Mouth, 4 times a day, PRN for anxiety, # 40 capsule, 0 Refills, Maintenance, 04/19/24 9:28:00 AM EDT, Capsule, Partial fill upon patient request if the prescription is for a schedule II opioid drug. Start Date: 04/19/24 Status: Ordered Quantity: 40.0 Unit: capsule Repeat number: 1 Lorazepam = 0.25 mg, By Mouth, Daily, 0 Refills, Maintenance, 03/08/24 8:55:00 AM EDT, Partial fill upon patient request if the prescription is for a schedule II opioid drug. Start Date: 03/08/24 Status: Ordered Repeat number: 1 Melatonin = 5 mg, By Mouth, Daily at bedtime, 0 Refills, Maintenance, 02/04/24 11:48:00 AM EDT, Partial fill upon patient request if the prescription is for a schedule II opioid drug. Start Date: 02/04/24 Status: Ordered Repeat number: 1 Metformin = 750 mg, By Mouth, 2 times a day, 0 Refills, Maintenance, 10/25/22 11:13:00 AM EST, Partial fill upon patient request if the prescription is for a schedule II opioid drug. Start Date: 10/25/22 Status: Ordered Repeat number: 1 Mirtazapine = 22.5 mg, By Mouth, Daily at bedtime, 0 Refills, Maintenance, 03/08/24 8:57:00 AM EDT, Partial fillupon patient request if the prescription is for a schedule II opioid drug. Start Date: 03/08/24 Status: Ordered Repeat number: 1 pantoprazole 40 mg oral delayed release tablet 1 tablet = 40 mg, By Mouth, Daily, TAKE 1 TABLET BY MOUTH EVERY DAY Start Date: 01/30/23 Status: Ordered Repeat number: 1 SEROquel 25 mg oral tablet 25 mg, 1, tablet, By Mouth, Daily, # 30 tablet, Refills 0, Maintenance, 04/16/24 3:27:00 PM EDT, Partial fill upon patient request if the prescription is for a schedule II opioid drug. Start Date: 04/16/24 Status: Ordered Quantity: 30.0 Unit: tablet Repeat number: 1 Problem List Condition Confirmation Course Effective Dates Status H ealth Status Informant Anxiety Confirmed Active Chronic insomnia Confirmed Active COPD mixed type Confirmed Active Carotid artery disease Confirmed Active Factor V Leiden mutation Confirmed Active GERD (gastroesophageal reflux disease) Confirmed Active S/P TAVR (transcatheter aortic valve replacement) Confirmed Active History of CVA in adulthood Confirmed Active HLD (hyperlipidemia) Confirmed Active Hypertension Confirmed Active Chronic anticoagulation Confirmed Active Nicotine dependence Confirmed Active Nonobstructive atherosclerosis of coronary artery Confirmed Active Obstructive sleep apnea Confirmed Active Peripheral vascular disease Confirmed Active Current every day smoker Confirmed Active Splenic infarct Confirmed Active Tobacco dependence Confirmed Active T2DM (type 2 diabetes mellitus) Confirmed Active Social History Social History Type Response Smoking Status 5-9 cigarettes (betw een 1/4 to 1/2 pack)/day in last 30 days entered on: 02/01/24 Sex Sex Representation Male (finding) Cardiology * Event Display: Non [facility] Cardiovascular Results Authored Date: Patient Care team information Care Team Personnel Name: Nick SCHROEDER ([place]) , Berry Hernández Position: [facility] Outreach Member Role: PCP Address: [address] [place] [id number] Telecom: Name: Vivienne Urbano RN Position: [facility] RN Member Role: Primary Care Nurse Name: Zainab Mcgee RN Position: [facility] RN Member Role: Primary Care Nurse Name: Jenna Britt Position: S RN Member Role: Primary Care Nurse Name: Rubin Kang RN Position: [facility] RN Member Role: Primary Care Nurse Name: Mary Ann Blair RN Position: [facility] RN Member Role: Primary Care Nurse Name: Annemarie Smith RN Position: [facility] RN Member Role: Primary Care Nurse Name: Alejandra Ashby RN Position: [facility] RN Member Role: Primary Care Nurse Name: Hermes Tapia RN Position: [facility] RN Member Role: Primary Care Nurse Name: Meme Bernal RN Position: [facility] RN Member Role: Primary Care Nurse Name: Reanna Gentile RN Position: [facility] RN Member Role: Primary Care Nurse Name: Sonja Lyn RN Position: [facility] RN Member Role: Primary Care Nurse Name: Gaston Tejeda RN Position: [facility] RN Member Role: Primary Care Nurse Care Team Related Persons Name: YUE AVITIA Name: TEODORO CHEN Name: GUSTAVO ARAMBULA JR Insurance Providers Guarantor name: GUSTAVO ARAMBULA Health Plan Information #: 1 Payer: [employer] [place] Member Number: NA Policy Number: NA Group Number: NA Health Plan Information #: 2 Payer: MEDICARE PART B OUTPT Member Number: NA Policy Number: NA Group Number: NA
--- OUTSIDE RECORDS SUMMARY | 2024-10-30 10:00 | XMS_ITS | Encounter Summary ---
Author Name [facility] Organization [facility] Address [address] [place] [address] Care Team Providers Care Class A Truck Driver Name Role Phone TRACY VILLANUEVA Primary Care [...] PHI MEDEX BRONZ E December 19, 2013 [id number] GUSTAVO ARAMBULA SR PATIENT [employer] MEDICARE SUPPLEMEN PHI MEDIC ARE SUPPL EMENT Jul 21, 2007 NONE [id number] Edgar ARAMBULA PATIENT [place] MEDICARE SUPPLEMEN PHI MEDEX BRONZ E December 19, 2013 [id number] [phone] GUSTAVO ARAMBULA SR PATIENT [place] ([place] MEDICARE SUPPLEMEN PHI MEDEX BRONZ E December 19, 2013 [id number] Edgar ARAMBULA PATIENT MEDICARE (WNR) MEDICARE (M) PART A Oct 19, 2004 PART A [id number] [phone] Edgar ARAMBULAN PATIENT MEDICARE (WNR) MEDICARE (M) PART B Oct 19, 2004 PART B [id number] Edgar ARAMBULAN PATIENT MEDICARE (WNR) MEDICARE (M) PART A Oct 19, 2004 PART A [id number] Edgar ARAMBULA PATIENT MEDICARE (WNR) MEDICARE (M) PART B Oct 19, 2004 PART B [id number] Edgar ARAMBULA PATIENT MEDICARE (WNR) MEDICARE (M) PART B Oct 19, 2004 PART B [id number] Edgar ARAMBULAN PATIENT MEDICARE (WNR) MEDICARE (M) PART A Oct 19, 2004 PART A [id number] [phone] Edgar ARAMBULA PATIENT MEDICARE (WNR) MEDICARE (M) PART A Oct 19, 2004 PART A [id number] [phone] Edgar ARAMBULA PATIENT MEDICARE (WNR) MEDICARE (M) PART B Oct 19, 2004 PART B [id number] [phone] Edgar ARAMBULA PATIENT MEDICARE (WNR) MEDICARE (M) PART A Oct 19, 2004 PART A [id number] Edgar ARAMBULA PATIENT MEDICARE (WNR) MEDICARE (M) PART B Oct 19, 2004 PART B [id number] Edgar ARAMBULA PATIENT Selected Encounter This section includes the information on [place] at [place] for the Encounter. Date/Time Encounter Type Encounter Description Reason Provider Source Oct 15, 2024 06:03 PM OFFICE O/P EST LOW 20 MIN CARDIAC ECHO ICD-10-CM I35.0 Nonrheumatic aortic (valve) stenosis JERMAIN KELLEY IHRichy Encounter Template Text not used by [place] Assessments - Encounter Diagnoses This section includes the primary and secondary diagnoses documented for the Encounter. Date/Time Primary/Secondary Diagnosis Diagnosis Name Provider Source Oct 15, 2024 06:04 PM PRIMARY Nonrheumatic aortic (valve) stenosis JERMAIN KELLEY [facility]IBAL [facility] Plan of Treatment: Future Appointments (+ 6 months) and Future Tests (+/- 45 days) The Plan of Treatment section includes future care activities for the patient from all [place] [facility]. This section includes future appointments and future orders which are active, pending or scheduled. Future Appointments This section includes appointments that were scheduled to occur 6 months from the date of the Encounter, up to a maximum of 20 appointments. The data comes from all [facility]. Appointment Date/Time Appointment Type Appointme nt Facility Name Oct 21, 2024 09:30 AM AMBULATORY - MEDICINE [facility] Oct 30, 2024 08:00 AM AMBULATORY - MEDICINE [facility] Nov 11, 2024 01:30 PM [facility] Nov 12, 2024 10:30 AM [facility] Nov 29, 2024 10:00 AM [facility] Jan 24, 2025 11:00 AM AMBULATORY - MEDICINE [facility] Active, Pending, and [...] of theEncounter. The data comes from all [facility]. Test Date/Time Test Type Test Details Facility Name Oct 18, 2024 03:15 PM Consult Order COMMUNITY CARE-CARDIOLOGY Cons [employer] Ste[employer] Operator's Choice [facility] Nov 11, 2024 12:00 AM Laboratory [...] Chemistry Order VITAMIN D (25-OH) BLOOD (SST-SERUM) [facility] 24, 2025 12:00 AM Laboratory - Chemistry Order CBC [...] Apr 05, 2007 08:48 AM [facility] Advance Directives: All historical and current Section [...] Source Apr 10, 2023 ADVANCE DIRECTIVE [place] [facility] Apr 19, 2007 ADVANCE DIRECTIVE [facility] Encounter Notes: All associated encounter notes This section contains the clinical notes associated to the Encounter. Date/Time Encounter Note(s) Provider Source Oct 15, 2024 06:03 PM CARDIOLOGY CONSULT : LOCAL TITLE: ECHO CONSULT STANDARD TITLE: CARDIOLOGY CONSULT DATE OF NOTE: OCT 15, 2024@18:03 ENTRY DATE: OCT 15, 2024@18:03:10 AUTHOR: MEGAN KELLEY EXP COSIGNER: URGENCY: STATUS: COMPLETED Remote echocardiogram read was completed in [facility]. results are available in [employer] [facility]. /reginaldo/ MEGAN KELLEY MD Cardiology Attending Signed: 10/15/2024 18:04 MEGAN KELLEY [facility]
--- OUTSIDE RECORDS SUMMARY | 2024-10-30 10:01 | XMS_ITS | Encounter Summary ---
Author Name [facility] Organization [facility] Address [address] [place] [address] Care Team Providers Care Director Of Restaurants Name Role Phone TRACY VILLANUEVA Primary Care [...] PHI MEDEX BRONZ E December 19, 2013 [id number] GUSTAVO ARAMBULA SR PATIENT [employer] MEDICARE SUPPLEMEN PHI MEDIC ARE SUPPL EMENT Jul 21, 2007 NONE [id number] Edgar ARAMBULA PATIENT [place] MED[place] SUPPLEMEN PHI MEDEX BRONZ E December 19, 2013 [id number] GUSTAVO ARAMBULA SR PATIENT [place] MEDICARE SUPPLEMEN PHI MEDEX BRONZ E December 19, 2013 [id number] Edgar ARAMBULA [place] PATIENT MEDICARE (WNR) MEDICARE (M) PART A Oct 19, 2004 PART A [id number] [phone] Edgar ARAMBULA [place] PATIENT MEDICARE (WNR) MEDICARE (M) PART B Oct 19, 2004 PART B [id number] [phone] Edgar ARAMBULA [place] PATIENT MEDICARE (WNR) MEDICARE (M) PART A Oct 19, 2004 PART A [id number] Edgar ARAMBULA [place] PATIENT MEDICARE ([place]NR) MEDICARE (M) PART B Oct 19, 2004 PART B [id number] Edgar ARAMBULA [place] PATIENT MEDICARE (WNR) MEDICARE (M) PART B Oct 19, 2004 PART B [id number] Edgar ARAMBULA [place] PATIENT MEDICARE (WNR) MEDICARE () PART A Oct 19, 2004 PART A [id number] [phone] Edgar ARAMBULA [place] PATIENT MEDICARE (WNR) MEDICARE () PART A Oct 19, 2004 PART A [id number] Edgar ARAMBULA [place] PATIENT MEDICARE ([place]NR) MEDICARE () PART B Oct 19, 2004 PART B [id number] FILEMONEEdgar [place] PATIENT MEDICARE ([place]) MEDICARE () PART A Oct 19, 2004 PART A [id number] Edgar ARAMBULA [place] PATIENT MEDICARE (WNR) MEDICARE (M) PART B Oct 19, 2004 PART B [id number] [phone] Edgar ARAMBULAN PATIENT Selected Encounter This section includes the information on record at [place] for the Encounter. Date/Time Encounter Type Encounter Description Reason Provider Source Jun 11, 2024 09:30 AM OFFICE O/P EST MOD 30 [facility] - IND ICD-10-CM F33.9 Major depressive disorder, recurrent, unspecified JOSEY COLINDRES Encounter Template Text not used by [place] Assessments - Encounter Diagnoses This section includes the primary and secondary diagnoses documented for the Encounter. Date/Time Primary/Secondary Diagnosis Diagnosis Name Provider Source Jun 11, 2024 04:38 PM PRIMARY Major depressive disorder, recurrent, unspecified BERNADINEIZAIAHKONSTANTIN Lockhart [place] [facility] [place] [facility] Jun 11, 2024 04:38 PM SECONDARY Tobacco use IZAIAH COLINDRESKONSTANTIN Gomez Richy [place] [facility] Plan of Treatment: Future Appointments (+ 6 months) and Future Tests (+/- 45 days) The Plan of Treatment section includes future care activities for the patient from all [place] treatmentfacilities. This section includes future appointments and future orders which are active, pending or scheduled. Future Appointments This section includes appointments that were scheduled to occur 6 months from the date of the Encounter, up to a maximum of 20 appointments. The data comes from all [place] treatment facilities. Appointment Date/Time Appointment Type Appointme nt Facility Name Jun 13, 2024 10:00 AM AMBULATORY - MEDICINE [place] [facility] [place] [facility] Jun 19, 2024 11:00 AM AMBULATORY - NONE [facility] [place] [facility] Jun 21, 2024 09:00 AM AMBULATORY - MEDICINE [place] [facility] [place] [facility] Jun 21, 2024 09:15 AM AMBULATORY - MEDICINE [place] [facility] [place] [facility] Jun 21, 2024 09:30 AM AMBULATORY - MEDICINE [place] [facility] [place] [facility] Jun 26, 2024 08:00 AM AMBULATORY - MEDICINE [place] [facility] [place] [facility] Jul 05, 2024 09:00 AM AMBULATORY - REHAB MEDICIN E [facility] [place] [facility] Jul 30, 2024 09:30 AM AMBULATORY - PSYCHIATRY [facility] [place] [facility] Aug 05, 2024 09:45 AM AMBULATORY - MEDICINE [place] [facility] [place] [facility] Aug 28, 2024 10:00 AM AMBULATORY - MEDICINE [facility] [place] [facility] Aug 28, 2024 10:30 AM AMBULATORY - MEDICINE [facility] [place] [facility] Sep 06, 2024 11:00 AM AMBULATORY - MEDICINE [place] [facility] [place] [facility] Sep 18, 2024 11:00 AM AMBULATORY - NONE [facility] [place] [facility] Sep 26, 2024 12:30 PM AMBULATORY - MEDICINE [facility] Oct 08, 2024 09:30 AM AMBULATORY - PSYCHIATRY [facility] [place] [facility] Oct 14, 2024 12:30 PM AMBULATORY - MEDICINE [facility] [place] [facility] Oct 15, 2024 07:45 AM AMBULATORY - NONE [facility] [place] [place] [facility] Oct 21, 2024 09:30 AM AMBULATORY - MEDICINE [facility] Oct 30, 2024 08:00 AM AMBULATORY - MEDICINE [facility] [place] [facility] Nov 11, 2024 01:30 PM AMBULATORY - MEDICINE [facility] [place] [facility] Social History: Smoking Status (Most current) and [...] VA-TOBACCO NEVER USED [place] [facility] [place] [facility] Tobacco Use History This section includes a history of the smoking, or tobacco-related health factors, that were collected on or before the date of the Encounter. The data comes from the [place] facility where the Encounter took place. 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 [facility] [place] [facility] Dec 13, 2022 03:00 PM VA-TOBACCO USE MED NO [facility] [place] [facility] Dec 13, 2022 03:00 PM VA-TOBACCO USER EVERY DAY [facility] [place] [facility] Nov 17, 2021 10:00 AM VA-TOBACCO USE 30 YEARS OR MORE [place] [facility] [place] [facility] Nov 17, 2021 10:00 AM VA-TOBACCO USE ADVICE [facility] [place] [place] [facility] Nov 17, 2021 10:00 AM VA-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 Nov 17, 2021 10:00 AM VA-TOBACCO USE MED NO [facility] [facility] Nov 17, 2021 10:00 AM VA-TOBACCO USE WI 30 MIN OF WAKEUP [facility] Nov 17, 2021 10:00 AM VA-TOBACCO USER EVERY DAY [facility] Oct 14, 2013 12:55 PM V1-PT NOT INTERESTED IN QUIT TOBACCO USE [facility] [place] [facility] May 07, 2013 05:04 PM CURRENT SMOKER trying to stop [facility] May 07, 2013 05:04 PM V1-PT DECLINES REF TO TOBACCO CESS PRGM [facility] [place] [facility] May 07, 2013 05:04 PM V1-PT DECLINES TOBACCO CESSATION MEDS [facility] May 07, 2013 05:04 PM V1-PT READY TO QUIT TOBACCO USE [place] [facility] [place] [facility] Dec 03, 2012 08:23 AM V1-PT DECLINES REF TO TOBACCO CESS PRGM [facility] [place] [facility] Dec 03, 2012 08:23 AM V1-PT DECLINES TOBACCO CESSATION MEDS [facility] [place] [facility] Dec 03, 2012 08:23 AM V1-PT THINKING ABOUT QUIT TOBACCO USE [facility] [place] [facility] Jun 05, 2012 08:45 AM CURRENT SMOKER 1/2ppd [place] [facility] [place] [facility] Jun 05, 2012 08:45 AM V1-PT DECLINES REF TO TOBACCO CESS PRGM [place] [facility] [place] [facility] Jun 05, 2012 08:45 AM V1-PT THINKING ABOUT QUIT TOBACCO USE [place] [facility] [place] [facility] Jun 05, 2012 08:45 AM V1-TOBACCO CESS MEDS NOT PRESCRIBED Vet wants to talk to his provider-He is nervous about taking meds to quit- but he is interested in quitting [facility] [place] [place] [facility] Nov 25, 2011 09:14 AM V1-PT DECLINES REF TO TOBACCO CESS PRGM [facility] [place] [facility] Nov 25, 2011 09:14 AM V1-PT DECLINES TOBACCO CESSATION MEDS [facility] Nov 25, 2011 09:14 AM V1-PT THINKING ABOUT QUIT TOBACCO USE [facility] [place] [facility] May 06, 2011 01:02 PM CURRENT SMOKER [facility] May 06, 2011 01:02 PM V1-PT DECLINES TOBACCO CESSATION MEDS [facility] May 06, 2011 01:02 PM V1-PT NOT INTERESTED IN QUIT TOBACCO USE [facility] Sep 24, 2010 08:51 AM V1-PT DECLINES TOBACCO CESSATION MEDS [facility] Sep 24, 2010 08:51 AM V1-PT THINKING ABOUT QUIT TOBACCO USE [facility] [place] [place] [facility] Mar 22, 2010 07:58 AM CURRENT SMOKER 1/2 ppd [facility] Feb 25, 2009 12:05 PM QUIT TOBACCO USE IN PAST YEAR [facility] Aug 26, 2008 09:28 AM CURRENT SMOKER 1/2 ppd [facility] [place] [facility] Aug 26, 2008 09:28 AM V1-PT DECLINES REF TO TOBACCO CESS PRGM [facility] [place] [facility] Aug 26, 2008 09:28 AM V1-PT READY TO QUIT TOBACCO USE [facility] [place] [place] [facility] Dec 19, 2007 10:08 AM V1-PT DECLINES REF TO TOBACCO CESS PRGM [facility] [place] [place] [facility] Dec 19, 2007 10:08 AM V1-PT DECLINES TOBACCO CESSATION MEDS [facility] Dec 19, 2007 10:08 AM V1-PT THINKING ABOUT QUIT TOBACCO USE [facility] [place] [facility] Sep 11, 2007 11:10 AM CURRENT SMOKER [facility] Sep 11, 2007 11:10 AM V1-PT DECLINES REF TO TOBACCO CESS PRGM [facility] Sep 11, 2007 11:10 AM V1-PT DECLINES TOBACCO CESSATION MEDS [facility] Sep 11, 2007 11:10 AM V1-PT THINKING ABOUT QUIT TOBACCO [facility] Feb 13, 2007 01:46 PM V1-PT DECLINES REF TO TOBACCO CESS PRGM [facility] Feb 13, 2007 01:46 PM V1-PT DECLINES TOBACCO CESSATION MEDS [facility] Feb 13, 2007 01:46 PM V1-PT THINKING ABOUT QUIT TOBACCO USE [facility] Oct 02, 2006 08:28 AM QUIT TOBACCO USE IN PAST YEAR 3 months ago [facility] Aug 19, 2005 08:33 AM QUIT TOBACCO USE IN PAST YEAR nonsmoker [facility] Sep 21, 2004 09:54 AM CURRENT SMOKER [facility] Sep 07, 2004 08:07 AM CURRENT SMOKER [facility] Sep 15, 2003 11:21 AM CURRENT SMOKER smokes one pk day [facility] Jul 23, 2003 01:57 PM CURRENT SMOKER [facility] Advance Directives: All historical and [...] [facility] Apr 19, 2007 ADVANCE DIRECTIVE VICTORIA JOHNSON [facility] Encounter Notes: All associated encounter [...] CT 09/25/2023 TRACY VILLANUEVA Depression (SNOMED CT [id number]) F33 12/10/2021 TRAVIS GOMES Dry Eye Syndromes * (ICD-9-CM 375.1 03/17/2009 MILKANAHED P OD Late effect of fracture of [...] 10/31/2013 JOVANY NAYLOR Tobacco use (SNOMED CT [id number]) Z 02/20/2024 MCKEONGUSTAVO BMI: 25.2 SUBSTANCE USE: Alcohol: None MJ: [...] melatonin 5 mg at for sleep - [facility] Sleep [...] this [facility] (local) and dispensed from another MS or DoD facility (remote) as well as [...] Resources Only: E911 (Emergency Call Relay Center): [phone] National [employer] Crisis Line - (4-214-298-TALK) press #1. OFELIA Suicide Coordinator ? [phone], Ext. [phone]; Back-up Ext. [phone] Parking Attendant of the Day(AOD)OFELIA [place] ? [phone], Ext. [phone] Introduction: Visit is being conducted by [place] [employer]. identified with 2 identifiers: [X] Full Name [X] Date of [ ] VA ID Card Emergency Plan: confirmed and/or provided the following information in case of emergency or technology failure. [place]'s present location and address for appointment: Located at home address as in CPRS 's emergency contact name and phone number: Emergency contact as per listed in chart [place] reported that location is private and safe: Yes Informed Consent: [place] informed of the risks and benefits of Telehealth video care. [place] has the right to refuse video services. If refuses video visit, a ywez-yb-[id number] visit will be scheduled. [place] verbalized consent for this video visit: Yes [place] provided consent for any other persons present for visit: Yes If yes, who and relationship to patient: Secure visit: Visit was locked for security and privacy:Yes __ _ __ /es/ LANA COLINDRES PSYCHIATRIST Signed: 06/11/2024 16:38 [facility]DRES [facility]
--- OUTSIDE RECORDS SUMMARY | 2024-10-30 10:01 | XMS_ITS | Encounter Summary ---
Author Name [facility] Organization [facility] Address [address] [place] [address] Care Team Providers Care Career Coach Name Role Phone TRACY VILLANUEVA Primary Care [...] PHI MEDEX BRONZ E December 19, 2013 [id number] GUSTAVO ARAMBULA SR PATIENT [employer] MEDICARE SUPPLEMEN PHI MEDIC ARE SUPPL EMENT Jul 21, 2007 NONE [id number] [phone] Edgar ARAMBULA PATIENT [place] MED[place] SUPPLEMEN PHI MEDEX BRONZ E December 19, 2013 [id number] GUSTAVO ARAMBULA SR PATIENT [place] ([place] MEDICARE SUPPLEMEN PHI MEDEX BRONZ E December 19, 2013 [id number] Edgar ARAMBULA [place] PATIENT MEDICARE (WNR) MEDICARE (M) PART A Oct 19, 2004 PART A [id number] Edgar ARAMBULA [place] PATIENT MEDICARE (WNR) MEDICARE (M) PART B Oct 19, 2004 PART B [id number] [id number] Edgar ARAMBULA [place] PATIENT MEDICARE (WNR) MEDICARE (M) PART A Oct 19, 2004 PART A [id number] Edgar ARAMBULA [place] PATIENT MEDICARE (WNR) MEDICARE (M) PART B Oct 19, 2004 PART B [id number] [id number] Edgar ARAMBULA [place] PATIENT MEDICARE (WNR) MEDICARE (M) PART A Oct 19, 2004 PART A [id number] Edgar ARAMBULA [place] PATIENT MEDICARE (WNR) MEDICARE () PART B Oct 19, 2004 PART B [id number] Edgar ARAMBULA [place] PATIENT MEDICARE (WNR) MEDICARE () PART A Oct 19, 2004 PART A [id number] Edgar ARAMBULA [place] PATIENT MEDICARE (WNR) MEDICARE () PART B Oct 19, 2004 PART B [id number] Edgar ARAMBULA [place] PATIENT MEDICARE (WNR) MEDICARE () PART A Oct 19, 2004 PART A [id number] Edgar ARAMBULA [place] PATIENT MEDICARE (WNR) MEDICARE (M) PART B Oct 19, 2004 PART B [id number] [phone] Edgar ARAMBULAN PATIENT Selected Encounter This section includes the information on record at ME for the Encounter. Date/Time Encounter Type Encounter Description Reason Provider Source Oct 08, 2024 09:30 AM SYNCH AUDIO-VIDEO EST MOD [facility] - IND ICD-10-CM F33.9 Major depressive disorder, recurrent, unspecified JOSEY COLINDRES Encounter Template Text not used by [facility] Assessments - Encounter Diagnoses This section includes the primary and secondary diagnoses documented for the Encounter. Date/Time Primary/Secondary Diagnosis Diagnosis Name Provider Source Oct 08, 2024 09:58 AM PRIMARY Major depressive disorder, recurrent, unspecified COLINDRESIZAIAHKONSTANTIN Lockhart [facility] Oct 08, 2024 09:58 AM SECONDARY Other insomnia IZAIAH COLINDRESKONSTANTIN Lockhart [facility] Plan of Treatment: Future Appointments (+ 6 months) and Future Tests (+/- 45 days) The Plan of Treatment section includes future care activities for the patient from all [facility]. This section includes future appointments and future orders which are active, pending or scheduled. Future Appointments This section includes appointments that were scheduled to occur 6 months from the date of the Encounter, up to a maximum of 20 appointments. The data comes from all ME treatment [facility]. Appointment Date/Time Appointment Type Appointme nt Facility Name Oct 14, 2024 12:30 PM AMBULATORY [facility] MEDIC[facility] Oct 15, 2024 07:45 AM [facility] Oct 21, 2024 09:30 AM [facility] Oct 30, 2024 08:00 AM [facility] Nov 11, 2024 01:30 PM AMBULATORY - MEDICINE [facility] N[facility]L TRN [facility] Nov 12, 2024 10:30 AM [facility] Nov 29, 2024 10:00 AM AMBULATORY - MEDICINE [facility] Jan 24, 2025 11:00 AM AMBULATORY - MEDICINE [facility] [...] theEncounter. The data comes from all [facility]. Test Date/Time Test Type Test Details Facility Name Oct 18, 2024 03:15 PM Consult Order COMMUNITY CARE-CARDIOLOGY Cons Silviculturist's Choice [facility] Nov 11, 2024 12:00 AM Laboratory - Chemistry Order HEMOGLOBIN A1C PANEL BLOOD (LAV-BLOOD) [facility] Nov 11, 2024 12:00 AM Laboratory - Chemistry Order MICROALBUMIN CREATININE RATIO PANEL URINE (RANDOM) [facility] Nov 11, 2024 12:00 AM Laboratory - Chemistry Order TSH BLOOD (SST-SERUM) [facility] 24, 2025 12:00 AM Laboratory - Chemistry Order VITAMIN D (25-OH) BLOOD (SST-SERUM) [facility] Nov 11, 2024 12:00 AM Laboratory - Chemistry Order CBC BLOOD (LAV-BLOOD) [facility] Nov 11, 2024 12:00 AM Laboratory - Chemistry Order BASIC METABOLIC PANEL (non-fasting) BLOOD (SST-SERUM) [facility] 24, 2025 12:00 AM Laboratory - Chemistry Order LIPID PANEL, NON FASTING BLOOD (SST-SERUM) [facility] Nov 11, 2024 12:00 AM Laboratory - Chemistry Order LIVER FUNCTION BLOOD (SST-SERUM) [facility] Social History: Smoking Status (Most current) and Tobacco Use (All prior to encounter date) This section includes the most current, and the historical, smoking and tobacco- related health factors from the [facility] where the Encounter took place. Current Smoking Status This section includes the most current smoking, or tobacco-related health factor, from the ME facility where the Encounter took place. Date/Time Current Smoking Status Comment [facility] December 25, 2023 09:05 AM VA-TOBACCO NEVER USED [facility] Tobacco Use History This section includes a history of the smoking, or tobacco-related health factors, that were collected on or before the date of the Encounter. The data comes from the ME facility where the Encounter took place. 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 [facility] [place] [facility] Dec 13, 2022 03:00 PM VA-TOBACCO USE MED NO [place] [facility] [place] [facility] Dec 13, 2022 03:00 PM VA-TOBACCO USER EVERY DAY [facility] [place] [facility] Nov 17, 2021 10:00 AM VA-TOBACCO USE 30 YEARS OR MORE [facility] [place] [facility] Nov 17, 2021 10:00 AM VA-TOBACCO USE ADVICE [facility] [place] [facility] Nov 17, 2021 10:00 AM 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 Oct 14, 2013 12:55 PM V1-PT NOT INTERESTED IN QUIT TOBACCO USE [facility] [place] [facility] May 07, 2013 05:04 PM CURRENT SMOKER trying to stop [place] [facility] [place] [facility] May 07, 2013 05:04 PM V1-PT DECLINES REF TO TOBACCO CESS PRGM [facility] [place] [facility] May 07, 2013 05:04 PM V1-PT DECLINES TOBACCO CESSATION MEDS [place] [facility] [place] [place] [facility] May 07, 2013 05:04 PM V1-PT READY TO QUIT TOBACCO USE [facility] [place] [facility] Dec 03, 2012 08:23 AM V1-PT DECLINES REF TO TOBACCO CESS PRGM [facility] [place] [facility] Dec 03, 2012 08:23 AM V1-PT DECLINES TOBACCO CESSATION MEDS [facility] [place] [place] [facility] Dec 03, 2012 08:23 AM V1-PT THINKING ABOUT QUIT TOBACCO USE [facility] [place] [facility] Jun 05, 2012 08:45 AM CURRENT SMOKER 1/2ppd [facility] [place] [facility] Jun 05, 2012 08:45 AM V1-PT DECLINES REF TO TOBACCO CESS PRGM [place] [facility] [place] [facility] Jun 05, 2012 08:45 AM V1-PT THINKING ABOUT QUIT [facility]ACCO [facility] [place] [facility] Jun 05, 2012 08:45 AM V1-TOBACCO CESS MEDS NOT PRESCRIBED Vet wants to talk to his provider-He is nervous about taking meds to quit- but he is interested in quitting [facility] [place] [facility] Nov 25, 2011 09:14 AM V1-PT DECLINES REF TO TOBACCO CESS PRGM [facility] Nov 25, 2011 09:14 AM V1-PT DECLINES TOBACCO CESSATION MEDS [facility] Nov 25, 2011 09:14 AM V1-PT THINKING ABOUT QUIT TOBACCO USE [facility] May 06, 2011 01:02 PM CURRENT SMOKER [facility] May 06, 2011 01:02 PM V1-PT DECLINES TOBACCO CESSATION MEDS [facility] May 06, 2011 01:02 PM V1-PT NOT INTERESTED IN QUIT TOBACCO USE [facility] Sep 24, 2010 08:51 AM V1-PT DECLINES TOBACCO CESSATION MEDS [facility] Sep 24, 2010 08:51 AM V1-PT THINKING ABOUT QUIT TOBACCO USE [facility] Mar 22, 2010 07:58 AM CURRENT SMOKER 1/2 ppd [facility] Feb 25, 2009 12:05 PM QUIT TOBACCO USE IN PAST YEAR [facility] Aug 26, 2008 09:28 AM CURRENT SMOKER 1/2 ppd [facility] Aug 26, 2008 09:28 AM V1-PT DECLINES REF TO TOBACCO CESS PRGM [facility] Aug 26, 2008 09:28 AM V1-PT READY TO QUIT [facility]BACCO [facility] Dec 19, 2007 10:08 AM V1-PT DECLINES REF TO TOBACCO CESS PRGM [facility] Dec 19, 2007 10:08 AM V1-PT DECLINES TOBACCO CESSATION MEDS [facility] Dec 19, 2007 10:08 AM V1-PT THINKING ABOUT QUIT TOBACCO USE [facility] Sep 11, 2007 11:10 AM CURRENT SMOKER [facility] Sep 11, 2007 11:10 AM V1-PT DECLINES REF TO TOBACCO CESS PRGM [facility] Sep 11, 2007 11:10 AM V1-PT DECLINES TOBACCO CESSATION MEDS [facility] Sep 11, 2007 11:10 AM V1-PT THINKING ABOUT QUIT TOBACCO USE [facility] Feb 13, 2007 01:46 PM V1-PT DECLINES REF TO TOBACCO CESS PRGM [facility] Feb 13, 2007 01:46 PM V1-PT DECLINES TOBACCO CESSATION MEDS [facility] Feb 13, 2007 01:46 PM V1-PT THINKING ABOUT QUIT TOBACCO USE [facility] Oct 02, 2006 08:28 AM QUIT TOBACCO USE IN PAST YEAR 3 months ago [facility] Aug 19, 2005 08:33 AM QUIT TOBACCO USE IN PAST YEAR nonsmoker [facility] Sep 21, 2004 09:54 AM CURRENT SMOKER [facility] Sep 07, 2004 08:07 AM CURRENT SMOKER [facility] Sep 15, 2003 11:21 AM CURRENT SMOKER smokes one pk day [facility] Jul 23, 2003 01:57 PM CURRENT SMOKER [facility] Advance Directives: All historical and current Section Date Range: From patient's date of to the date document was created. This section includes ALL of a patient's completed or amended ME Advance and Rescinded Directives. The entries below indicate that a directive exists for the patient, but an actual copy is not included with this document. The data comes from all ME facilities. Date Advance Directives Provider Source Apr 10, 2023 ADVANCE DIRECTIVE [facility] Apr 19, 2007 ADVANCE DIRECTIVE VICTORIA JOHNSON [facility] Encounter Notes: All associated encounter notes This section contains the clinical notes associated to the Encounter. Date/Time Encounter Note(s) Provider Source Oct 08, 2024 09:35 AM PSYCHIATRY NOTE: LOCAL TITLE: PSYCHIATRY NOTE STANDARD TITLE: PSYCHIATRY NOTE DATE OF NOTE: OCT 08, 2024@09:35 ENTRY DATE: OCT 08, 2024@09:35:04 AUTHOR: LANA COLINDRES COSIGNER: URGENCY: STATUS: COMPLETED PSYCHIATRY FOLLOW UP VISIT GUSTAVO ARAMBULA SR is a 83yo MARITAL STATUS - WHITE MALE with a history of [employer] FROM December TO Oct INTERVAL HISTORY Mood has been a little lower, more procrastinating, less motivation to do things. Did get started with some painting a few days ago, he does enjoy it once he starts painting. His brother Claude has been ill and this is difficult. Winter is not usual a big problem, but it does limit his outdoor time. [place] the river every day with his brother to feed the birds. Has had some chronic diarrhea. Metformin was reduced. Diarrhea is a little better on the BRAT diet. Sleeping ok. Does go to a senior center 1-2x/week. CURRENT MEDICATIONS Active Outpatient Medications (including Supplies): ACCU-CHEK GUIDE (GLUCOSE) TEST STRIP USE 1 STRIP TO TEST ACTIVE BLOOD SUGARS TWO TIMES A WEEK ACCU-CHEK GUIDE ME (GLUCOSE) METER USE METER TO TEST BLOOD ACTIVE SUGARS TWO TIMES A WEEK ACETAMINOPHEN 500MG TAB TAKE TWO TABLETS BY MOUTH TWICE ACTIVE DAILY Indication: FOR PAIN ALBUTEROL 90MCG (CFC-F) 200D ORAL INHL INHALE 1 TO 2 PUFFS ACTIVE BY MOUTH EVERY 6 HOURS NEEDED Indication: FOR BRONCHOSPASM ALCOHOL PREP PAD USE 1 PAD TOPICALLY TWICE A WEEK ACTIVE Indication: CLEAN SKIN FOR INJECTION AMLODIPINE BESYLATE 10MG TAB TAKE ONE TABLET [...] TWICE DAILY FOR INCONTINENCE Indication: URINARY INCONTINENCE LANCET,SOFTCLIX USE 1 LANCET TOPICALLY TWICE A WEEK TO ACTIVE TEST BLOOD SUGAR LATANOPROST 0.005% OPH SOLN INSTILL 1 DROP INTO EACH EYE ACTIVE AT BEDTIME Indication: FOR INCREASED PRESSURE IN THE EYE MELATONIN 5MG CAP/TAB TAKE ONE CAPSULE/TABLET BY MOUTH AT ACTIVE BEDTIME Indication: FOR INSOMNIA METFORMIN HCL 500MG 24HR SA TAB TAKE TWO TABLETS BY MOUTH ACTIVE TWICE DAILY Indication: FOR TYPE 2 DIABETES MELLITUS NUTR SUPL GLUCERNA SHAKE LIQ VANILLA DRINK 1 BOTTLE BY ACTIVE MOUTH ONCE DAILY Indication: FOR NUTRITIONAL SUPPLEMENT PANTOPRAZOLE NA 40MG EC TAB TAKE ONE TABLET BY MOUTH EVERY ACTIVE MORNING 30 MINUTES BEFORE BREAKFAST QUETIAPINE FUMARATE 25MG TAB TAKE ONE TABLET BY MOUTH AT ACTIVE BEDTIME Indication: SLEEP, DEPRESSION, ANXIETY SITAGLIPTIN (EQV-ZITUVIO) 100MG TAB TAKE ONE TABLET BY ACTIVE MOUTH ONCE DAILY Indication: DIABETES TIOTROPIUM 2.5MCG/ACTUAT 60D ORAL INHL INHALE 2 PUFFS BY ACTIVE MOUTH ONCE DAILY Indication: FOR BRONCHOSPASM PREVENTION WITH COPD TRIAMCINOLONE ACETONIDE 0.025% CREAM APPLY A MODERATE ACTIVE AMOUNT TOPICALLY TWICE DAILY NEEDED Indication: FOR ATOPIC DERMATITIS TRIAMCINOLONE ACETONIDE 0.1% CREAM APPLY A THIN LAYER HOLD TOPICALLY EVERY 5 DAYS Indication: FOR ATOPIC DERMATITIS SUPPLEMENTS: ALLERGIES: GEMFIBROZIL, LISINOPRIL MEDICAL HISTORY Active Problem Arteriosclerotic heart disease I25. 05/22/2024 TRACY VILLANUEVA HERMILO - Generalized anxiety disorder 02/14/2024 TRACY VILLANUEVA Male urinary stress incontinence N3 02/13/2024 TRACY VILLANUEVA Diabetes mellitus type 2 E11.9 08/01/2024 TRACY VILLANUEVA Long-term current use of anticoagul 09/26/2024 HAY CORONA Communication authorization R69. 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 02/09/2023 YULY AUSTIN Abnormal imaging R93.421 02/09/2023 YULY AUSTIN Aortic valve stenosis I35.0 09/26/2024 DANIELE CHILDS Aneurysm of ascending aorta I71.21 [...] CT 09/25/2023 TRACY VILLANUEVA Depression (SNOMED CT [id number]) F33 12/10/2021 TRAVIS GOMES Dry eyes H04.123 09/26/2024 TRACY VILLANUEVA Late effect of fracture of skull an 12/03/2008 JOVANY NAYLOR Localised, primary osteoarthritis M 03/12/2024 TRACY VILLANUEVA History of malignant neoplasm of pr 09/26/2024 TRACY VILLANUEVA Cataract, Cortical (Senile) 366.15 05/04/2006 NAHED JARQUIN OD Open Angle Glaucoma Suspect 365.01 05/04/2006 NAHED JARQUIN OD Mixed hyperlipidaemia E78.2 12/25/2023 TRACY VILLANUEVA Benign essential hypertension I10. 12/25/2023 TRACY VILLANUEVA Screening for malignant neoplasm of 09/26/2024 TRACY VILLANUEVA Tobacco use (SNOMED CT [id number]) Z 02/20/2024 GUSTAVO MCKEON BMI: 27.1 SUBSTANCE USE: Alcohol: None MJ: None Tobacco: [...] No abnormal movements. Speech nml r/r/r/v/p Mood lower Affect: more constricted Thought Process Linear, logical Thought Content: No obsessions, no delusions, no AH/VH. SI/HI: Denies any SI passive or active a/ox4 I/J good ASESSMENT 82yo man, living [...] falls on trazodone and mirtazapine. PLAN -add armodafinil 25mg x 1 week, then 50mg daily qam for mood and energy. BP check at home after starting--has been hypertensive, +aortic aneurism, ECHO pending. -cont citalopram 20mg daily -cont quetiapine 25mg daily -review smoking cessation - Cont melatonin 5 mg at HS for sleep - [facility] Sleep medicine - Cardiology - Hematology F/U REFILLS/COVERAGE okay for refills FOLLOW UP IN CLINIC 1 mo TIME SPENT FACE TO FACE:25m TOTAL TIME INCLUDING CHART REVIEW AND DOCUMENTATION:30m [...] therapeutic relationship [x ]medication compliant [ ](other): Advised to contact me via call center [...] of active outpatient prescriptions dispensed from this ME (local) and dispensed from another ME or DoD facility (remote) as well as [...] and updated. /reginaldo/ LANA COLINDRES PSYCHIATRIST Signed: 10/08/2024 09:58 LANA COLINDRES [facility]
--- OUTSIDE RECORDS SUMMARY | 2024-10-30 10:01 | XMS_ITS | Encounter Summary ---
Author Name [facility] [facility] [place] [facility] [place] Address [address] [place] [address] Care Team Providers Care Sales Performance Analyst Name Role Phone TRACY VILLANUEVA Primary Care [...] PHI MEDEX BRONZ E December 19, 2013 [id number] GUSTAVO ARAMBULA SR PATIENT [employer] MEDICARE SUPPLEMEN PHI MEDIC ARE SUPPL EMENT Jul 21, 2007 NONE [id number] Edgar ARAMBULA [place] SUPPLEMEN PHI MEDEX BRONZ E December 19, 2013 [id number] GUSTAVO ARAMBULA SR PATIENT [place] MEDICARE SUPPLEMEN PHI MEDEX BRONZ E December 19, 2013 [id number] Edgar ARAMBULA [place] PATIENT MEDICARE (WNR) MEDICARE (M) PART A Oct 19, 2004 PART A [id number] [id number] Edgar ARAMBULA [place] PATIENT MEDICARE (WNR) MEDICARE (M) PART B Oct 19, 2004 PART B [id number] Edgar ARAMBULA [place] PATIENT MEDICARE (WNR) MEDICARE (M) PART A Oct 19, 2004 PART A [id number] Edgar ARAMBULA [place] PATIENT MEDICARE (WNR) MEDICARE (M) PART B Oct 19, 2004 PART B [id number] Edgar ARAMBULA [place] PATIENT MEDICARE (WNR) MEDICARE (M) PART B Oct 19, 2004 PART B [id number] Edgar ARAMBULA [place] PATIENT MEDICARE (WNR) MEDICARE () PART A Oct 19, 2004 PART A [id number] Edgar ARAMBULA [place] PATIENT MEDICARE (WNR) MEDICARE () PART A Oct 19, 2004 PART A [id number] Edgar ARAMBULAN PATIENT MEDICARE (WNR) MEDICARE (M) PART B Oct 19, 2004 PART B [id number] Edgar ARAMBULA [place] PATIENT MEDICARE (WNR) MEDICARE () PART A Oct 19, 2004 PART A [id number] Edgar ARAMBULA [place] PATIENT MEDICARE (WNR) MEDICARE (M) PART B Oct 19, 2004 PART B [id number] Edgar ARAMBULAN PATIENT Selected Encounter This section includes the information on record at [place] for the Encounter. Date/Time Encounter Type Encounter Description Reason Provider Source Aug 28, 2024 10:30 AM OFFICE O/P EST HI 40 MIN PRIMARY CARE/MEDICINE ICD-10-CM R19.7 Diarrhea, unspecified GALDINO KIRBY Encounter Template Text not used by [place] Assessments - Encounter Diagnoses This section includes the primary and secondary diagnoses documented for the Encounter. Date/Time Primary/Secondary Diagnosis Diagnosis Name Provider Source Aug 28, 2024 12:32 PM PRIMARY Diarrhea, unspecified GALDINO KIRBY [place] [facility] [place] [facility] Aug 28, 2024 12:32 PM SECONDARY Type 2 diabetes mellitus without complications GALDINO KIRBY [facility] Plan of Treatment: Future Appointments (+ 6 months) and Future Tests (+/- 45 days) The Plan of Treatment section includes future care activities for the [facility] [place] [facility] This section includes future appointments [...] 06, 2024 11:00 AM AMBULATORY - MEDICINE [place] [facility] [place] [facility] Sep 18, 2024 11:00 AM AMBULATORY - NONE [place] [facility] [place] [facility] Sep 26, 2024 12:30 PM AMBULATORY - MEDICINE [facility] Oct 08, 2024 09:30 AM AMBULATORY - PSYCHIATRY [place] [facility] [place] [facility] Oct 14, 2024 12:30 PM AMBULATORY - MEDICINE [place] [place] [facility] Oct 15, 2024 07:45 AM AMBULATORY - NONE [place] [facility] [place] [facility] Oct 21, 2024 09:30 AM AMBULATORY - MEDICINE [facility] Oct 30, 2024 08:00 AM AMBULATORY - MEDICINE [place] [place] [facility] Nov 11, 2024 01:30 PM AMBULATORY - MEDICINE [place] [facility] Nov 12, 2024 10:30 AM AMBULATORY - PSYCHIATRY [place] [facility] [place] [facility] Nov 29, 2024 10:00 AM AMBULATORY - MEDICINE [place] [facility] [place] [facility] Jan 24, 2025 11:00 AM AMBULATORY - MEDICINE [facility] Lab Results: +/- [...] Range Comment Aug 29, 2024 11:03 AM [facility] C DIFF TOX B GENE PCR Specimen Type: FECES Comment: The [employer] C. difficile/Epi assay is a real time PCR assay on the [employer] GeneXpert System for the rapid detection of [...] on C. difficile testing. H* INDICATES A [place] ALERT HAS BEEN SENT Ordering Provider: GALDINO KIRBY Report Released Date/Time: Aug 28, 2024 10:23 AM Reporting Lab: [facility] [address] [address] Performing Lab: [facility] [address] [address] C DIFF TOX B GENE PCR Negative Negative Aug 29, 2024 10:57 AM [facility] GASTROINTESTINAL PANEL (WRLED) Specimen Type: FECES Comment: The Gastrointestina l (GI) Panel is an FDA (IVD) approved qualitative multiplex PCR assay on the [employer] System for testing on raw stool specimens transferred into [employer]. It is indicated as an aid in the diagnosis of specific agents of gastrointestina l illness and results are meant to be used in conjunction with other clinical, laboratory, and epidemiological data. Positive results do not rule out co infection with organisms not included in the [employer] GI Panel. The agent detected may not [...] specimen collection, handling, transportation, storage, and preparation. [email or web address] Ordering Provider: GALDINO KIRBY Report Released Date/Time: Aug 28, 2024 10:23 AM Reporting Lab: [place] [facility] [employer] [facility] [address] [address] Performing Lab: [place] [facility] [employer] [facility] [address] [address] CAMPYLOBACTER SP. Not Detected Not Detected PLESIOMONAS [...] Not Detected Aug 28, 2024 10:49 AM [place] [facility] [employer] [facility] BASIC METABOLIC PANEL (non-fasting) Specimen Type: SERUM No comment entered. Ordering Provider: GALDINO KIRBY Report Released Date/Time: Aug 28, 2024 10:23 AM Reporting Lab: [facility] [address] [address] Performing Lab: [facility] [address] [address] UREA NITROGEN 16 mg/dL 7-25 GLUCOSE 212 mg/dL H 65-100 SODIUM 137 mmol/L 135-145 POTASSIUM 4.4 mmol/L 3.5-5.0 CHLORIDE 102 mmol/L 100-110 CO2 25 meq/L 20-30 CREATININE, Serum 0.76 mg/dL 0.50-1.40 eGFR(CKD-EPI 2020) 88 mL/min >60 Aug 28, 2024 10:49 AM [facility] URINALYSIS CLEAN CATCH Specimen Type: URINE Comment: If Glucose = >500 and Ketones are positive, please alert the Physician. Critical result acknowledged. DR KIRBY 08/28/24@1118 BY Ordering Provider: GALDINO KIRBY Report Released Date/Time: Aug 28, 2024 10:23 AM Reporting Lab: [address] [address] Performing Lab: [address] [address] UA COLOR Yellow Yellow UA APPEARANCE Clear Clear UA GLUCOSE 1,000 mg/dL Negative UA KETONES TRACE mg/dL Negative UA BLOOD NEGATIVE mg/dL Negative UA PROTEIN 30 mg/dL Negative UA NITRITE NEGATIVE mg/dL Negative UA BILIRUBIN NEGATIVE mg/dL Negative UA SPECIFIC GRAVITY 1.038 H 1.016-1.02 2 UA pH 5.5 5.0-9.0 UA UROBILINOGEN 3 mg/dL <2.0 UA LEUKOCYTE NEGATIVE Negative Aug 28, 2024 10:49 AM [facility] CBC AND DIFF (AUTO) Specimen Type: BLOOD No comment entered. Ordering Provider: GALDINO KIRBY Report Released Date/Time: Aug 28, 2024 10:23 AM Reporting Lab: [address] [address] Performing Lab: [facility] [address] [address] WBC 6.48 10*3/uL 4.50-11.00 RBC 4.37 10*6/uL [...] 10*3/uL 0.00-0.00 Aug 01, 2024 08:18 AM [facility] LIVER FUNCTION Specimen Type: SERUM No comment entered. Ordering Provider: TRACY VILLANUEVA Report Released Date/Time: Jul 30, 2024 09:45 AM Reporting Lab: [address] [address] Performing Lab: [address] [address] PROTEIN,TOTAL 7.2 g/dL 6.0-8.3 ALBUMIN 3.9 g/dL 3.5-5.0 ALKALINE PHOSPHATASE 78 U/L 40-150 AST 16 U/L 5-34 ALT 18 U/L BILIRUBIN, TOTAL 0.8 mg/dL 0.2-1.2 Aug 01, 2024 08:18 AM [facility] BASIC METABOLIC PANEL (non-fasting) Spe cimen Type: SERUM No comment entered. Ordering Provider: TRACY VILLANUEVA Report Released Date/Time: Jul 30, 2024 09:45 AM Reporting Lab: [facility] [address] [facility] [address] Performing Lab: [address] [address] UREA NITROGEN 14 mg/dL 7-25 GLUCOSE 218 mg/dL H 65-100 SODIUM 136 mmol/L 135-145 POTASSIUM 4.1 mmol/L 3.5-5.0 CHLORIDE 101 mmol/L 100-110 CO2 26 meq/L 20-30 CREATININE, Serum 0.77 mg/dL 0.50-1.40 eGFR(CKD-EPI 2020) 88 mL/min >60 Aug 01, 2024 08:18 AM [facility] HEMOGLOBIN A1C PANEL Specimen Type: BLOOD Comment: [...] Jul 30, 2024 09:45 AM Reporting Lab: [address] [address] Performing Lab: [facility] [address] [address] HEMOGLOBIN A1C 8.1 H 4.0-5.6 Aug 01, 2024 08:18 AM [facility] LIPID PANEL, NON FASTING Specimen Type: SERUM No comment entered. Ordering Provider: TRACY VILLANUEVA Report Released Date/Time: Jul 30, 2024 09:45 AM Reporting Lab: [address] [address] Performing Lab: [address] [address] CHOLESTEROL 155 mg/dL TRIGLYCERIDE 78 mg/dL 0-150 LDL calculated 85 mg/dL 0-129 CHOL/HDL 2.9 HDL CHOLESTEROL 54 mg/dL 40-60 Vital Signs: All taken on the encounter date This section contains inpatient and outpatient Vital Signs collected on the date of the Encounter. Date/Time Temperature Pulse Blood Pressure Respiratory Rate SP02 Pain Height Weight Body Mass Index Source Aug 28, 2024 10:06 AM 97.6 73 162/76 18 100 140 27 [place] [facility] [place] [facility] Social History: Smoking Status (Most current) and [...] took place. Date/Time Current Smoking Status Comment [facility] ity December 25, 2023 09:05 AM VA-TOBACCO NEVER USED [place] [facility] Tobacco Use History This [...] [facility] [place] [facility] Dec 13, 2022 03:00 PM VA-TOBACCO USE 30 YEARS OR MORE [facility] [place] [facility] Dec 13, 2022 03:00 PM VA-TOBACCO USE ADVICE [facility] [place] [facility] Dec 13, 2022 03:00 PM VA-TOBACCO USE DEPUTY ADMINISTRATOR NO [facility] [place] [facility] Dec 13, 2022 03:00 PM VA-TOBACCO USE MED NO [facility] [place] [facility] Dec 13, 2022 03:00 PM VA-TOBACCO USER EVERY DAY [facility] [place] [facility] Nov 17, 2021 10:00 AM VA-TOBACCO USE 30 YEARS OR MORE [facility] [place] [facility] Nov 17, 2021 10:00 AM VA-TOBACCO USE ADVICE [facility] Nov 17, 2021 10:00 AM VA-TOBACCO USE DEPUTY ADMINISTRATOR NO [facility] Nov 17, 2021 10:00 AM VA-TOBACCO USE MED NO [facility] Nov 17, 2021 10:00 AM VA-TOBACCO USE WI 30 MIN OF WAKEUP [facility] Nov 17, 2021 10:00 AM VA-TOBACCO USER EVERY DAY [facility] Oct 14, 2013 12:55 PM V1-PT NOT INTERESTED IN QUIT TOBACCO USE [facility] May 07, 2013 05:04 PM CURRENT SMOKER trying to stop [facility] May 07, 2013 05:04 PM V1-PT DECLINES REF TO TOBACCO CESS PRGM [facility] May 07, 2013 05:04 PM V1-PT DECLINES TOBACCO CESSATION MEDS [facility] May 07, 2013 05:04 PM V1-PT READY TO QUIT TOBACCO USE [facility] Dec 03, 2012 08:23 AM V1-PT DECLINES REF TO TOBACCO CESS PRGM [facility] Dec 03, 2012 08:23 AM V1-PT DECLINES TOBACCO CESSATION MEDS [facility] Dec 03, 2012 08:23 AM V1-PT THINKING ABOUT QUIT TOBACCO USE [facility] Jun 05, 2012 08:45 AM CURRENT SMOKER 1/2ppd [facility] Jun 05, 2012 08:45 AM V1-PT DECLINES REF TO TOBACCO CESS PRGM [facility] Jun 05, 2012 08:45 AM V1-PT THINKING ABOUT QUIT TOBACCO USE [facility] Jun 05, 2012 08:45 AM V1-TOBACCO CESS MEDS NOT PRESCRIBED Vet wants to talk to his provider-He is nervous about taking meds to quit- but he is interested in quitting [facility] Nov 25, 2011 09:14 AM V1-PT DECLINES REF TO TOBACCO CESS PRGM [facility] [place] [facility] Nov 25, 2011 09:14 AM V1-PT DECLINES TOBACCO CESSATION MEDS [facility] [place] [facility] Nov 25, 2011 09:14 AM V1-PT THINKING ABOUT QUIT TOBACCO USE [facility] [place] [facility] May 06, 2011 01:02 PM CURRENT SMOKER [facility] [place] [facility] May 06, 2011 01:02 PM V1-PT DECLINES TOBACCO CESSATION MEDS [facility] [place] [facility] May 06, 2011 01:02 PM V1-PT NOT INTERESTED IN QUIT TOBACCO USE [facility] [place] [facility] Sep 24, 2010 08:51 AM V1-PT DECLINES TOBACCO CESSATION MEDS [facility] [place] [facility] Sep 24, 2010 08:51 AM V1-PT THINKING ABOUT QUIT TOBACCO USE [facility] [place] [facility] Mar 22, 2010 07:58 AM CURRENT SMOKER 1/2 ppd [facility] [place] [facility] Feb 25, 2009 12:05 PM QUIT TOBACCO USE IN PAST YEAR [facility] [place] [facility] Aug 26, 2008 09:28 AM CURRENT SMOKER 1/2 ppd [facility] [place] [facility] Aug 26, 2008 09:28 AM V1-PT DECLINES REF TO TOBACCO CESS PRGM [facility] [place] [facility] Aug 26, 2008 09:28 AM V1-PT READY TO QUIT TOBACCO USE [facility] [place] [facility] Dec 19, 2007 10:08 AM V1-PT DECLINES REF TO TOBACCO CESS PRGM [facility] [place] [facility] Dec 19, 2007 10:08 AM V1-PT DECLINES TOBACCO CESSATION MEDS [facility] [place] [facility] Dec 19, 2007 10:08 AM V1-PT THINKING ABOUT QUIT TOBACCO USE [facility] [place] [facility] Sep 11, 2007 11:10 AM CURRENT SMOKER [facility] [place] [facility] Sep 11, 2007 11:10 AM V1-PT DECLINES REF TO TOBACCO CESS PRGM [facility] [place] [facility] Sep 11, 2007 11:10 AM V1-PT DECLINES TOBACCO CESSATION MEDS [facility] Sep 11, 2007 11:10 AM V1-PT THINKING ABOUT QUIT TOBACCO USE [facility] Feb 13, 2007 01:46 PM V1-PT DECLINES REF TO TOBACCO CESS PRGM [facility] Feb 13, 2007 01:46 PM V1-PT DECLINES TOBACCO CESSATION MEDS [facility] Feb 13, 2007 01:46 PM V1-PT THINKING ABOUT QUIT TOBACCO USE [facility] Oct 02, 2006 08:28 AM QUIT TOBACCO USE IN PAST YEAR 3 months ago [facility] Aug 19, 2005 08:33 AM QUIT TOBACCO USE IN PAST YEAR nonsmoker [facility] Sep 21, 2004 09:54 AM CURRENT SMOKER [facility] Sep 07, 2004 08:07 AM CURRENT SMOKER [facility] Sep 15, 2003 11:21 AM CURRENT SMOKER smokes one pk day [facility] Jul 23, 2003 01:57 PM CURRENT SMOKER [facility] Advance Directives: All historical and current [...] Source Apr 10, 2023 ADVANCE DIRECTIVE [facility] Apr 19, 2007 ADVANCE DIRECTIVE [facility] Encounter Notes: All associated encounter notes This section contains the clinical notes associated to the Encounter. Date/Time Encounter Note(s) Provider Source Sep 02, 2024 08:59 AM ADDENDUM: LOCAL TITLE: Addendum STANDARD TITLE: ADDENDUM DATE OF NOTE: SEP 02, 2024@08:59:22 ENTRY DATE: SEP 02, 2024@08:59:22 AUTHOR: GALDINO KIRBY EXP COSIGNER: URGENCY: STATUS: COMPLETED GI stool panel and c. diff neg. Nursing, please contact and check on his well being. /es/ GALDINO CASTRO MS,NHUNGC PHYSICIAN HOD CARRIER Signed: 09/02/2024 09:00 Receipt Acknowledged By: 09/06/2024 13:34 /es/ ZACHARY ABBOTT RN REGISTERED NURSE --- Original Document --- 08/28/24 FABI NOTE: SICK CALL VISIT HPI: 83-year-old male presents from home with concerns of ongoing diarrhea for the past 3 months. was hospitalized at [facility] for hyponatremia, hypokalemia and hyperglycemia. He states when he was discharged he was constipated. He was told by the doctor to drink some prune juice. Since that time he has had consistent 4-6 liquidy brown stools daily. He states he was scheduled to see his primary care but the day that the visit was to occur, he was canceled due to the provider's illness. He denies any abdominal pain but does endorse tenesmus with urgency. He has had no incontinence of stool. Denies any back pain. No changes in appetite. There has been no weight gain. There is been no chest pain, shortness of breath. Denies any travel, camping or dietary changes such as exotic foods or raw/undercooked foods. He has had no fever or chills. REVIEW OF SYSTEMS: A 12 point review of systems is negative except as noted in the HPI. Active Medical Problems: Active Problem Arteriosclerotic heart disease I25. 05/22/2024 TRACY VILLANUEVA HERMILO - Generalized anxiety disorder 02/14/2024 TRACY VILLANUEVA Male urinary stress incontinence N3 02/13/2024 TRACY VILLANUEVA Chronic pain G89.4 11/06/2023 JOSE NORTON Diabetes mellitus type 2 E11.9 08/01/2024 TRACY VILLANUEVA Long-term current use of anticoagul 02/10/2023 HAY CORONA Communication authorization R69. 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 02/09/2023 AHTERESA,CHANTELAMMED JAWED Abnormal imaging R93.421 02/09/2023 ALECIATERESAYULY JAWRUBEN Aortic valve stenosis I35.0 09/18/2022 DANIELE [...] CT 09/25/2023 TRACY VILLANUEVA Depression (SNOMED CT [id number]) F33 12/10/2021 TRAVIS GOMES Dry Eye Syndromes [...] (BENIGN MAEGAN 10/31/2013 [facility]LOR [facility] Z 02/20/2024 GUSTAVO MCKEON Meds: Active Outpatient Medications (including Supplies): ACETAMINOPHEN 500MG [...] ENSURE PLUS/CONNIE LIQUID DRINK 1 CAN BY ACTIVE MOUTH TWICE DAILY Indication: FOR NUTRITIONAL SUPPLEMENTATION [...] EVERY 5 DAYS Indication: FOR ATOPIC DERMATITIS Allergies: GEMFIBROZIL, LISINOPRIL Date Vital Measurement Qualifiers 08/28/2024 10:06 Temp F (C) 97.6 (36.4) Pulse 73 Respir 18 BP 162/76 Wt lbs (kg)[BMI] 140 (63.50)[27] POx (L/Min)(%) 100 At Rest FOCUSED EXAMINATION GEN: Well-developed, well-nourished male in no acute distress HEENT: NCAT, PERRLA, EOMI, anicteric, mucous membranes moist, OP patent uvula midline Lungs: Diminished throughout without wheeze, rale or rhonchi COR: Regular rate and rhythm Vascular: Well-perfused ABD: Soft nontender to palpation without HSM, positive bowel sounds x 4 hyperactive Labs: - WBC 6.48 K/cmm 4.5 - 11 RBC 4.37 M/cmm 4.23 - 5.66 HGB 12.3 L g/dL 12.8 - 17 HCT 35.5 L % 39.2 - 50.4 MCV 81.2 L fl 82 - 99 MCH 28.1 pg 26.2 - 32.6 MCHC 34.6 g/dL 30.8 - 35.1 RDW 12.6 % 12 - 16 PLT 218 K/cmm 140 - 360 GLUCOSE 212 H mg/dL 65 - 100 BUN 16 mg/dL 7 - 25 CREATININE 0.76 mg/dL .5 - 1.4 eGFR(IDMS) Ref: >=60 CREAT mg/dL .5 - 1.5 eGFR See Eval Ref: See Eval Sodium 137 mmol/L 135 - 145 K+/Pot 4.4 mmol/L 3.5 - 5 CL 102 mmol/L 100 - 110 CO2 25 mEq/L 20 - 30 --- - Color Yellow Ref: Yellow Appear Clear Ref: Clear pH 5.5 5 - 9 GlucUr 1,000 mg/dL Ref: Negative [place]eton TRACE mg/dL Ref: Negative Blood Neg mg/dL Ref: Negative Protein 30 mg/dL Ref: Negative LeukEs Neg Ref: Negative Nitrit Neg mg/dL Ref: Negative Biliru Neg mg/dL Ref: Negative UroBiln 3 mg/dL Ref: <2.0 SpeGra 1.038 H 1.016 - 1.022 MDM: DC use of Ensure. Increase fluid intake (H2O). SUDHEER diet for diarrhea. No evidence of DKA. F/U with nutrition and PCP. Seek ED for any worsening. Collect stool for studies as ordered. ASSESSMENT/PLAN Diarrhea Diabetes mellitus type 2 as above On this date of the encounter, I spent 40 minutes on some or all of the following: chart review, history, physical examination, treatment planning, education and counseling of the patient/family/day care teacher, placing orders, communicating with other health care providers and documentation in the electronic health record. able to verbalize understanding of plan of care and agrees. >> MEDICATIONS Reviewed and reconciled with Ashlyn /reginaldo/ GALDINO CASTRO MS,PA-C PHYSICIAN HOD CARRIER Signed: 08/28/2024 12:34 Receipt Acknowledged By: 08/28/2024 13:55 /reginaldo/ DARLENE BOX CERTIFIED NURSE PRACTITIONER 09/01/2024 18:34 /reginaldo/ JESSE ARAGON STAFF DIETITIAN GALDINO KIRBY [facility] Aug 28, 2024 10:07 AM PHYSICIAN HOD CARRIER NOTE: LOCAL TITLE: FABI NOTE STANDARD TITLE: PHYSICIAN HOD CARRIER NOTE DATE OF NOTE: AUG 28, 2024@10:07 ENTRY DATE: AUG 28, 2024@10:07:42 AUTHOR: GALDINO KIRBY EXP COSIGNER: URGENCY: STATUS: COMPLETED FABI NOTE Has ADDENDA SICK CALL VISIT HPI: 83-year-old male presents from home with concerns of ongoing diarrhea for the past 3 months. was hospitalized at [facility] for hyponatremia, hypokalemia and hyperglycemia. He states when he was discharged he was constipated. He was told by the doctor to drink some prune juice. Since that time he has had consistent 4-6 liquidy brown stools daily. He states he was scheduled to see his primary care but the day that the visit was to occur, he was canceled due to the provider's illness. He denies any abdominal pain but does endorse tenesmus with urgency. He has had no incontinence of stool. Denies any back pain. No changes in appetite. There has been no weight gain. There is been no chest pain, shortness of breath. Denies any travel, camping or dietary changes such as exotic foods or raw/undercooked foods. He has had no fever or chills. REVIEW OF SYSTEMS: A 12 point review of systems is negative except as noted in the HPI. Active Medical Problems: Active Problem Arteriosclerotic heart disease I25. 05/22/2024 TRACY VILLANUEVA HERMILO - Generalized anxiety disorder 02/14/2024 TRACY VILLANUEVA Male urinary stress incontinence N3 02/13/2024 TRACY VILLANUEVA Chronic pain G89.4 11/06/2023 JOSE NORTON Diabetes mellitus type 2 E11.9 08/01/2024 TRACY VILLANUEVA Long-term current use of anticoagul 02/10/2023 HAY CORONA Communication authorization R69. 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 02/09/2023 CHANTEL AUSTINAMMED JAWED Abnormal imaging R93.421 02/09/2023 YULY AUSTIN [...] CT 09/25/2023 TRACY VILLANUEVA Depression (SNOMED CT [id number]) F33 12/10/2021 TRAVIS GOMES Dry Eye Syndromes [...] 10/31/2013 JOVANY NAYLOR Tobacco use (SNOMED CT [id number]) Z 02/20/2024 GUSTAVO MCKEON Meds: Active Outpatient Medications (including Supplies): ACETAMINOPHEN 500MG [...] ENSURE PLUS/CONNIE LIQUID DRINK 1 CAN BY ACTIVE MOUTH TWICE DAILY Indication: FOR NUTRITIONAL SUPPLEMENTATION [...] EVERY 5 DAYS Indication: FOR ATOPIC DERMATITIS Allergies: GEMFIBROZIL, LISINOPRIL Date Vital Measurement Qualifiers 08/28/2024 10:06 Temp F (C) 97.6 (36.4) Pulse 73 Respir 18 BP 162/76 Wt lbs (kg)[BMI] 140 (63.50)[27] POx (L/Min)(%) 100 At Rest FOCUSED EXAMINATION GEN: Well-developed, well-nourished male in no acute distress HEENT: NCAT, PERRLA, EOMI, anicteric, mucous membranes moist, OP patent uvula midline Lungs: Diminished throughout without wheeze, rale or rhonchi COR: Regular rate and rhythm Vascular: Well-perfused ABD: Soft nontender to palpation without HSM, positive bowel sounds x 4 hyperactive Labs: - WBC 6.48 K/cmm 4.5 - 11 RBC 4.37 M/cmm 4.23 - 5.66 HGB 12.3 L g/dL 12.8 - 17 HCT 35.5 L % 39.2 - 50.4 MCV 81.2 L fl 82 - 99 MCH 28.1 pg 26.2 - 32.6 MCHC 34.6 g/dL 30.8 - 35.1 RDW 12.6 % 12 - 16 PLT 218 K/cmm 140 - 360 GLUCOSE 212 H mg/dL 65 - 100 BUN 16 mg/dL 7 - 25 CREATININE 0.76 mg/dL .5 - 1.4 eGFR(IDMS) Ref: >=60 CREAT mg/dL .5 - 1.5 eGFR See Eval Ref: See Eval Sodium 137 mmol/L 135 - 145 K+/Pot 4.4 mmol/L 3.5 - 5 CL 102 mmol/L 100 - 110 CO2 25 mEq/L 20 - 30 --- - Color Yellow Ref: Yellow Appear Clear Ref: Clear pH 5.5 5 - 9 GlucUr 1,000 mg/dL Ref: Negative Keton TRACE mg/dL Ref: Negative Blood Neg mg/dL Ref: Negative Protein 30 mg/dL Ref: Negative LeukEs Neg Ref: Negative Nitrit Neg mg/dL Ref: Negative Biliru Neg mg/dL Ref: Negative UroBiln 3 mg/dL Ref: <2.0 SpeGra 1.038 H 1.016 - 1.022 MDM: DC use of Ensure. Increase fluid intake (H2O). SUDHEER diet for diarrhea. No evidence of DKA. F/U with nutrition and PCP. Seek ED for any worsening. Collect stool for studies as ordered. ASSESSMENT/PLAN Diarrhea Diabetes mellitus type 2 as above On this date of the encounter, I spent 40 minutes on some or all of the following: chart review, history, physical examination, treatment planning, education and counseling of the patient/family/day care teacher, placing orders, communicating with other health care providers and documentation in the electronic health record. able to verbalize understanding of plan of care and agrees. >> MEDICATIONS Reviewed and reconciled with /reginaldo/ GALDINO CASTRO MS,PA-C PHYSICIAN HOD CARRIER Signed: 08/28/2024 12:34 Receipt Acknowledged By: 08/28/2024 13:55 /reginaldo/ DARLENE BOX CERTIFIED NURSE PRACTITIONER 09/01/2024 18:34 /es/ JESSE ARAGON STAFF DIETITIAN 09/02/2024 ADDENDUM STATUS: COMPLETED GI stool panel and c. diff neg. Nursing, please contact and check on his well being. /reginaldo/ GALDINO CASTRO, MS,PA-C PHYSICIAN HOD CARRIER Signed: 09/02/2024 09:00 Receipt Acknowledged By: 09/06/2024 13:34 /reginaldo/ ZACHARY ABBOTT RN REGISTERED NURSE 09/06/2024 ADDENDUM STATUS: COMPLETED Called and spoke to and his son. Forwarded PA provider message. Theywere happy to hear everything was normal. They state they saw CPP today and believe the diarrhea may be related to an increase in Metformin. Will trial lower dose for now. /reginaldo/ ZACHARY ABBOTT RN REGISTERED NURSE Signed: 09/06/2024 13:40 GALDINO KIRBY CA [facility]
--- OUTSIDE RECORDS SUMMARY | 2024-10-30 10:01 | XMS_ITS | Encounter Summary ---
Author Name [facility] [place] Address [address] [place] [address] Care Team Providers Care Radiopharmacist Name Role Phone TRACY VILLANUEVA Primary Care [...] PHI MEDEX BRONZ E December 19, 2013 [id number] [phone] GUSTAVO ARAMBULA SR PATIENT [employer] MEDICARE SUPPLEMEN PHI MEDIC ARE SUPPL EMENT Jul 21, 2007 NONE [id number] [phone] Edgar ARAMBULA [place] SUPPLEMEN PHI MEDEX BRONZ E December 19, 2013 [id number] GUSTAVO ARAMBULA SR PATIENT [place] OF [place] ([place]ARD) MEDICARE SUPPLEMEN PHI MEDEX BRONZ E December 19, 2013 [id number] Edgar ARAMBULA [place] PATIENT MEDICARE (WNR) MEDICARE (M) PART A Oct 19, 2004 PART A [id number] [phone] Edgar ARAMBULA [place] PATIENT MEDICARE ([place]NR) MEDICARE (M) PART B Oct 19, 2004 PART B [id number] Edgar ARAMBULA [place] PATIENT MEDICARE ([place]) MEDICARE (M) PART A Oct 19, 2004 PART A [id number] [phone] Edgar ARAMBULA [place] PATIENT MEDICARE ([place]) MEDICARE (M) PART B Oct 19, 2004 PART B [id number] Edgar ARAMBULA [place] PATIENT MEDICARE ([place]NR) MEDICARE (M) PART B Oct 19, 2004 PART B [id number] Edgar ARAMBULA [place] PATIENT MEDICARE (WNR) MEDICARE () PART A Oct 19, 2004 PART A [id number] Edgar ARAMBULA [place] PATIENT MEDICARE (WNR) MEDICARE () PART A Oct 19, 2004 PART A [id number] [phone] Edgar ARAMBULA [place] PATIENT MEDICARE (WNR) MEDICARE () PART B Oct 19, 2004 PART B [id number] Edgar ARAMBULA [place] PATIENT MEDICARE ([place]) MEDICARE () PART A Oct 19, 2004 PART A [id number] [phone] Edgar ARAMBULAN PATIENT MEDICARE (WNR) MEDICARE () PART B Oct 19, 2004 PART B [id number] [phone] Edgar ARAMBULAN PATIENT Selected Encounter This section includes the information on record at [place] for the Encounter. Date/Time Encounter Type Encounter Description Reason Provider Source Sep 06, 2024 11:00 AM MTMS BY PHARM ADDL 15 MIN CLINICAL PHARMACY ICD-10-CM E11.9 Type 2 diabetes mellitus without complications MELIZA KNUTSON Encounter Template Text not used by PA Assessments - Encounter Diagnoses This section includes the primary and secondary diagnoses documented for the Encounter. Date/Time Primary/Secondary Diagnosis Diagnosis Name Provider Source Sep 06, 2024 11:13 AM PRIMARY Type 2 diabetes mellitus without complications JOSSUE KNUTSON [place] Plan of Treatment: Future Appointments (+ 6 months) and Future Tests (+/- 45 days) The Plan of Treatment section includes future care activities for the patient from [facility]. This section includes future appointments and future orders which are active, pending or scheduled. Future Appointments This section includes appointments that were scheduled to occur 6 months from the date of the Encounter, up to a maximum of 20 appointments. The data comes from all [facility] treatment [facility]. Appointment Date/Time Appointment Type Appointme nt Facility Name Sep 18, 2024 11:00 AM AMBULATORY - NONE [place] [facility] [place] [facility] Sep 26, 2024 12:30 PM AMBULATORY - MEDICINE [facility] Oct 08, 2024 09:30 AM AMBULATORY - PSYCHIATRY [place] [facility] [place] [facility] Oct 14, 2024 12:30 PM AMBULATORY - MEDICINE PA C [facility] [place] [facility] Oct 15, 2024 07:45 AM AMBULATORY - NONE PA [facility] [place] [facility] Oct 21, 2024 09:30 AM AMBULATORY - MEDICINE [facility] Oct 30, 2024 08:00 AM AMBULATORY - MEDICINE PA C [facility] [place] [facility] Nov 11, 2024 01:30 PM AMBULATORY - MEDICINE PA C [facility] [place] [facility] Nov 12, 2024 10:30 AM AMBULATORY - PSYCHIATRY PA [facility] [place] [facility] Nov 29, 2024 10:00 AM AMBULATORY - MEDICINE PA C [facility] [place] [facility] Jan 24, 2025 11:00 AM [facility] Active, Pending, and [...] of theEncounter. The data comes from all [facility]. Test Date/Time Test Type Test Details Facility Name Oct 18, 2024 03:15 PM Consult Order [facility]-CARDIOLOGY Cons [facility] Results: +/- 30 days of the encounter This section includes the Chemistry and Hematology Lab Results on record with PA for the patient. Radiology Reports and Pathology Reports are provided separately, in subsequent sections. Lab Results This section contains the Chemistry/Hematology Results that were resulted 30 days before or 30 daysafter the date of the Encounter. Date/Time Source Result Type Result - Unit Interpretation Reference Range Comment Aug 29, 2024 11:03 AM [facility] C DIFF TOX B GENE PCR Specimen Type: FECES Comment: The [employer] C. difficile/Epi assay is a real time PCR assay on the [employer] GeneXpert System for the rapid detection of [...] on C. difficile testing. H* INDICATES A PA ALERT HAS BEEN SENT Ordering Provider: GALDINO KIRBY Report Released Date/Time: Aug 28, 2024 10:23 AM Reporting Lab: [facility] [address] [address] Performing Lab: [facility] [address] [address] C DIFF TOX B GENE PCR Negative Negative Aug 29, 2024 10:57 AM [facility] GASTROINTESTINAL PANEL (WRLED) Specimen Type: FECES Comment: The Gastrointestina l (GI) Panel is an FDA (IVD) approved qualitative multiplex PCR assay on the [employer] System for testing on raw stool specimens transferred into [employer]. It is indicated as an aid in the diagnosis of specific agents of gastrointestina l illness and results are meant to be used in conjunction with other clinical, laboratory, and epidemiological data. Positive results do not rule out co infection with organisms not included in the Gabstr GI Panel. The agent detected may not [...] specimen collection, handling, transportation, storage, and preparation. [email or web address] Ordering Provider: GALDINO KIRBY Report Released Date/Time: Aug 28, 2024 10:23 AM Reporting Lab: [facility] [address] [address] Performing Lab: [place] [employer] [facility] [employer] [facility] [address] [address] CAMPYLOBACTER SP. Not Detected Not Detected PLESIOMONAS [...] Not Detected Aug 28, 2024 10:49 AM [facility] BASIC METABOLIC PANEL (non-fasting) Specimen Type: SERUM No comment entered. Ordering Provider: GALDINO KIRBY Report Released Date/Time: Aug 28, 2024 10:23 AM Reporting Lab: [address] [address] Performing Lab: [facility] [address] [address] UREA NITROGEN 16 mg/dL 7-25 GLUCOSE 212 mg/dL H 65-100 SODIUM 137 mmol/L 135-145 POTASSIUM 4.4 mmol/L 3.5-5.0 CHLORIDE 102 mmol/L 100-110 CO2 25 meq/L 20-30 CREATININE, Serum 0.76 mg/dL 0.50-1.40 eGFR(CKD-EPI 2020) 88 mL/min >60 Aug 28, 2024 10:49 AM [facility] URINALYSIS CLEAN CATCH Specimen Type: URINE Comment: If Glucose = >500 and Ketones are positive, please alert the Physician. Critical result acknowledged. DR KIRBY 08/28/24@1118 BY Ordering Provider: GALDINO KIRBY Report Released Date/Time: Aug 28, 2024 10:23 AM Reporting Lab: [address] [address] Performing Lab: [address] [address] UA COLOR Yellow Yellow UA APPEARANCE Clear Clear UA GLUCOSE 1,000 mg/dL Negative UA KETONES TRACE mg/dL Negative UA BLOOD NEGATIVE mg/dL Negative UA PROTEIN 30 mg/dL Negative UA NITRITE NEGATIVE mg/dL Negative UA BILIRUBIN NEGATIVE mg/dL Negative UA SPECIFIC GRAVITY 1.038 H 1.016-1.02 2 UA pH 5.5 5.0-9.0 UA UROBILINOGEN 3 mg/dL <2.0 UA LEUKOCYTE NEGATIVE Negative Aug 28, 2024 10:49 AM [facility] CBC AND DIFF (AUTO) Specimen Type: BLOOD No comment entered. Ordering Provider: GALDINO KIRBY Report Released Date/Time: Aug 28, 2024 10:23 AM Reporting Lab: [facility] [address] [address] Performing Lab: [facility] [address] [address] WBC 6.48 10*3/uL 4.50-11.00 RBC 4.37 10*6/uL [...] 2023 09:00 AM VA-TOBACCO USER EVERY DAY [place] Tobacco Use History This section includes a history of the smoking, or tobacco-related health factors, that were collected on or before the date of the Encounter. The data comes from the [place] facility where the Encounter took place. 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 Date/Time Encounter Note(s) Provider Source Sep 06, 2024 11:07 AM PHARMACY OUTPATIEN T NOTE: LOCAL TITLE: PHARMACY CLINIC NOTE STANDARD TITLE: PHARMACY OUTPATIENT NOTE DATE OF NOTE: SEP 06, 2024@11:07 ENTRY DATE: SEP 06, 2024@11:07:27 AUTHOR: RONALD KNUTSON COSIGNER: URGENCY: STATUS: COMPLETED Patient Name: GUSTAVO ARAMBULA SR was seen via [facility] for follow-up for diabetes management treatment. : Oct Age: 83 Sex: MALE Race: WHITE Subjective: Pt presents for a f/up with his son. Pt's son states [place] is doing better but gained weight. Recent appt with the forensic analyst- recommendation to stop glucerna as it can be the reason for elevated A1C. Per prev; Pt presents w/ his son who is also his budget analyst. Pt states he was hospitalized last week [...] 19. Disorder of lumbar disc (SNOMED CT 187603785) 20. Depression (SNOMED CT 60678677) 21. Dry Eye Syndromes * 22. 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 Localised, primary osteoarthritis 24. Prostate, Malign Neoplasm 25. Cataract, Cortical (Senile) 26. 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 Mixed hyperlipidaemia 28. Benign essential hypertension 29. POLYPS, COLON/LG BOWEL (BENIGN MAEGAN 30. Tobacco use (SNOMED CT 256120773) Objective: Diabetes Medication Regimen: - metform SA 1500 mg daily Previous DM Medications: - ? Adherence: Oral meds: off and on Insulin: denies missed doses Labs: Labs: HEMOGLOBIN A1C TREND Collection DT Spec HGBA1c 08/01/2024 08:18 BLOOD 8.1 H 04/25/2024 07:51 BLOOD 6.8 H 04/15/2024 08:39 BLOOD 6.3 H 12/25/2023 09:26 BLOOD 7.7 H 09/01/2023 10:29 BLOOD 6.7 H CBC TREND Collection DT Spec WBC RBC HGB HCT MCV MCH PLT 08/28/2024 10:49 BLOOD 6.48 4.37 12.3 L 35.5 L 81.2 L 28.1 218 04/15/2024 08:39 BLOOD 8.70 4.75 13.9 36.1 L 76.0 L 29.3 227 12/25/2023 09:26 BLOOD 9.74 4.50 12.5 L 36.2 L 80.4 L 27.8 275 09/05/2023 10:56 BLOOD 5.66 4.25 12.1 L 35.5 L 83.5 28.5 295 09/01/2023 10:29 BLOOD 8.35 4.17 L 12.0 L 35.3 L 84.7 28.8 305 CHEM 7 TREND LAB CUMULATIVE SELECTED Collection DT Spec GLUCOSE BUN CREATIN Sodium K+/Pot CL CO2 08/28/2024 10:49 SERUM 212 H 16 0.76 137 4.4 102 25 08/01/2024 08:18 SERUM 218 H 14 0.77 136 4.1 101 26 04/25/2024 07:51 SERUM 173 H 15 0.74 133 L 4.2 100 22 04/15/2024 08:39 SERUM 159 H 9 0.69 116 L* 3.4 L 81 L 23 12/25/2023 09:26 SERUM 240 H 12 0.78 135 4.2 102 24 Collection DT Spec eGFR 07/07/2009 08:08 SERUM >60 11/25/2008 08:25 SERUM >60 08/07/2008 08:25 SERUM >60 06/23/2008 08:21 SERUM >60 04/09/2008 08:20 SERUM >60 LAB CUMULATIVE SELECTED 2 No selection items chosen for this component. CHEM 7 Results Collection DT Spec Sodium K+/Pot CL CO2 GLUCOSE BUN eGFR 08/28/2024 10:49 SERUM 137 4.4 102 25 212 H 16 08/01/2024 08:18 SERUM 136 4.1 101 26 218 H 14 04/25/2024 07:51 SERUM 133 L 4.2 100 [...] 121 H Reflex to dLDL 314 H THYROID PANEL Collection DT Specimen Test Name Result Units Ref Range 12/14/2022 07:54 SERUM TSH 3.25 uIU/mL 0.35 - 5.00 VITAMIN D 25-OH Collection DT Specimen Test Name Result Units Ref Range 04/15/2024 08:39 SERUM VITAMIN D (25-OH) 49 ng/mL 20 - 50 SrCr (last 6 weeks): CREATININE-EGFR 08/28/24 10:49 0.76 CRCL IBW: CrCl(est): 51.9 mL/min (Creat:0.76 08/28/24) CRCL ACT: 49.49 mL/min CRCL ADJ: 51.9 mL/min (08/28/24) Vitals: Weight (BMI): 140 lb [63.50 kg] (08/28/2024 10:06) Height: 60.3 in [153.2 cm] (05/14/2024 11:39) BMI: 27.1 Active and Recently Outpatient Medications (including Supplies): [...] EVERY 5 DAYS Indication: FOR ATOPIC DERMATITIS MEDICATION RECONCILIATION: done BLOOD GLUCOSE MONITORING INFORMATION OBTAINED FROM [employer] SENSOR UPLOAD AND SENT TO SCANNING-SEE SEPARATE NOTE BG numbers obtained from son's log FAsting B 10PM - 12 PM bedtime 30 minutes after meals 160 105 211 159 150 170 140 169 117 136 165 143 189 158 166 157 140 193 146 148 137 237 Date: 09/06/24 B-4 days ago 227 mg/dl prior to that little over 200 mg/dl stopped drinking ensure 1 week ago NUTRITION Pt lives w/ son and pt Diet Patterns: patient eats on avg. x/day: Since release from hospital B: this am kazakh muffin and bannana cream of wehe ensure for breakfast L: sandwich D: home made dinner veggie, pork , chicken , beef ; baked potatoe, mashed potatoe ; no rice teetch no bottom dentures ; salads he cannot Snacks:cut down on it - ritz Drinks: milk - usually 2 of #8 [...] (04/26/24) * pt lost weight post hospitalization weight on 08/28/24: 140 lbs (pt regained weight) ASSESSMENT/PLAN: Reviewed most recent A1C and BG [...] w/ pt and son. f/up in August. Date: 09/06/24 Reviewed the reported verbally BG data along w/ the elevated A1C. It's likely that the ensure and recent weight regain led to elevated BG levels. Recommend to start w/ maximizing and adding oral agents before jumping to insulin. Pt has made nutritional changes as well - discussed again w/ pt and son. Close f/up recommended. 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 If he has any questions, concerns, or changes in current health status he will call or come in to the [facility]. FUTURE APPOINTMENTS: 09/26/2024 12:30 CWM/SO/PACT 7 10/08/2024 09:30 CWM/NO/VVC/MHC/DHRUV 10/21/2024 09:30 CWM/SO/PODIATRY/TALIB DM type is : T2D Length of Visit: minutes PBM PharmD Pharmacotherapy Rem V12: PHARMACIST INTERVENTIONS: TYPE 2 DIABETES MELLITUS Medication Intervention(s) Adjust dose or frequency of current medication due to other reason Plan: increase dose of metformin Initiate new medication Plan: add sitagliptin Medication monitoring, no dosage change required, continue to monitor and assess /reginaldo/ RONALD KNUTSON CLINICAL DISCOVERY MANAGER Signed: 09/10/2024 08:10 Receipt Acknowledged By: 09/14/2024 17:05 /reginaldo/ DARLENE BOX CERTIFIED NURSE PRACTITIONER RONALD KNUTSON [place]
--- OUTSIDE RECORDS SUMMARY | 2024-10-30 10:01 | XMS_ITS | Continuity of Care Document ---
Author Name [facility] Organization [facility] Care Team Providers Care Propagation Manager Name Role Phone [facility] Unavailable Unavailable Problems Combined list of problems from Department of Defense and Veterans Affairs facilities. It does not include entries that were removed or entered in error. Problem Status Onset Date Problem Type Date of Resolution Comments Source History of malignant neoplasm of prostate Active 006 Condition Sep 18, 2007 Entered By: MAGUI NAYLOR AM Comment: [facility] Screening for malignant neoplasm of colon done Active 003 Condition Sep 26, 2024 Entered By: TRACY VILLANUEVA Comment: October, colo fine, repeat 2019. [facility] Abnormal imaging Active Condition Feb 09, 2023 Entered By: YULY AUSTIN Comment: Exophytic lesion right kidney [facility] [place] [facility] Admits alcohol use Active Condition [facility] [place] [facility] Aneurysm of ascending aorta Active Condition Sep 18, 2022 Entered By: DANIELE CHILDS Comment: Borderline ascending aorta on ECHO 09/14/22 measuring 3.8cm [facility] Aortic valve stenosis Active Condition Sep 18, 2022 Entered By: DANIELE CHILDS Comment: ECHO 09/14/22 BLAISE 1.0cm2 EF 65%Sep 26, 2024 Entered By: TRACY VILLANUEVA Comment: aortic valve replacement 01/19/2023 [facility] Arteriosclerotic heart disease Active Condition May 14, 2024 Entered By: TRACY VILLANUEVA Comment: on EliquisOct 2023 Entered By: TRACY VILLANUEVA Comment: followed by cardiology Dr. Barney [facility] Jc's esophagus Active Condition Oct 31, 2013 Entered By: MAGUI NAYLOR AM Comment: WithOUT dysplasia october 2013, repeat 3-4 years.Feb 13, 2024 Entered By: TRACY VILLANUEVA Comment: 01/09/24 EGD. 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 [facility] [place] [facility] Depression (SNOMED CT [id number]) Active Condition Oct 13, 2010 Entered By: [...] HCS Disorder of lumbar disc (SNOMED CT [id number]) Active Condition [facility] [place] [facility] Dry eyes Active Condition [facility] [place] [...] Long-term current use of anticoagulant Active Condition Sep 26, 2024 Entered By: TRACY VILLANUEVA Comment: [facility] (631GE) Lumbosacral spondylosis without myelopathy (ICD-9-CM 721.3) [...] Entered By: DANIELE CHILDS Comment: following with [facility], severe sleep apnea per note 08/11/22, rec for cpapJan 2022 Entered By: DANIELE CHILDS Comment: Left GSV Venaseal 07/29/22 [facility] [place] [facility] Splenic infarction Active Condition J un 2022 Entered By: AHMED,MOHAMMED JAWED Comment: Chronic pain management with opioids [facility] [place] [facility] Tobacco use (SNOMED CT [id number]) Active Condition December 25, 2023 Entered By: TRACY VILLANUEVA Comment: 8 cig day x 65 yearsJul 2023 Entered By: GUSTAVO MCKEON Comment: CT, [place] FEBRUARY 11 Done at [facility]; No Lesions Suspicious for Malignancy;Feb 20, 2024 [...] [facility] [place] [facility] Diagnosis: ICD-10-CM L60.0 Ingrowing nail Active Diagnosis [place] Diagnosis: ICD-10-CM I35.0 Nonrheumatic aortic (valve) stenosis Active Diagnosis [facility] Diagnosis: ICD-10-CM E11.9 Type 2 diabetes mellitus without complications Active Diagnosis [facility] Diagnosis: ICD-10-CM F33.9 Major depressive disorder, recurrent, unspecified Active Diagnosis [facility] [place] Diagnosis: ICD-10-CM I25.10 Athscl heart disease of [place] coronary artery w/o ang pctrs Active Diagnosis [facility] Diagnosis: ICD-10-CM R63.4 Abnormal weight loss Active Diagnosis [facility] (631GE) Diagnosis: ICD-10-CM R19.7 Diarrhea, unspecified Active Diagnosis [facility] [place] Diagnosis: ICD-10-CM Z71.89 Other specified counseling Active Diagnosis [facility] [place] Diagnosis: ICD-10-CM G89.4 Chronic pain syndrome Active Diagnosis [facility] [place] [facility] Diagnosis: ICD-10-CM Z46.1 Encounter for fitting and adjustment of hearing aid Active Diagnosis [facility] [place] Diagnosis: ICD-10-CM J44.9 Chronic obstructive pulmonary disease, unspecified Active Diagnosis [facility] Diagnosis: ICD-10-CM 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, right eye, moderate stage Active Diagnosis [facility] [place] Diagnosis: ICD-10-CM H40.1411 Capslr glaucoma w/pseudxf lens, right eye, mild stage Active Diagnosis [facility] Diagnosis: ICD-10-CM Z46.0 Encounter for fit/adjst of spectacles and contact lenses Active Diagnosis [facility] Diagnosis: ICD-10-CM H90.3 Sensorineural hearing loss, bilateral Active Diagnosis [facility] Diagnosis: ICD-10-CM I10 Essential (primary) hypertension Active Diagnosis [facility] Diagnosis: ICD-10-CM Z04.89 Encounter for examination and observation for oth reasons Active Diagnosis [facility] Diagnosis: ICD-10-CM G47.30 Sleep apnea, unspecified Active Diagnosis [facility] Diagnosis: ICD-10-CM D73.5 Infarction of spleen Active Diagnosis [facility] Diagnosis: ICD-10-CM R53.83 Other fatigue Active Diagnosis [facility] Diagnosis: ICD-10-CM 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 Active Diagnosis [facility] Diagnosis: ICD-10-CM Z79.01 custodial (current) use of anticoagulants Active Diagnosis [facility] Diagnosis: ICD-10-CM Z71.9 Counseling, unspecified Active Diagnosis [facility] Diagnosis: ICD-10-CM F32.9 Major depressive disorder, single episode, unspecified Active Diagnosis [facility] Medications Combined list of outpatient medications [...] TWICE DAILY FOR PAIN ORAL ACTIVE 03/12/2025 [id number] Magdalena VILLANUEVA 2023 400 [place] ALBUTEROL 90MCG/ACTUA T (CFC-F) INHL,ORAL,8 .5GM DOSE COUNTER INHALE 1 TO 2 PUFFS BY MOUTH EVERY 6 HOURS NEEDED FOR BRONCHOS PASM RESPIR ATORY (INHAL ATION) ACTIVE 03/12/2025 [id number] 4 Magdalena VILLANUEVA 2023 3 [place] AMLODIPINE BESYLATE 10MG TAB TAKE ONE TABLET BY MOUTH ONCE DAILY FOR BLOOD PRESSURE /HEART, DO NOT TAKE WITH GRAPEFRU IT JUICE ORAL ACTIVE 03/12/2025 [id number] 5 Magdalena VILLANUEVA 2023 90 [place] AMLODIPINE BESYLATE 10MG TAB TAKE ONE TABLET BY MOUTH ONCE DAILY FOR BLOOD PRESSURE /HEART, DO NOT TAKE WITH GRAPEFRU IT JUICE ORAL DISCONT INUED 09/25/2024 [id number] 4 Magdalena VILLANUEVA 2023 90 [place] AMLODIPINE BESYLATE 10MG TAB TAKE ONE TABLET BY MOUTH ONCE DAILY FOR BLOOD PRESSURE /HEART, DO NOT TAKE WITH GRAPEFRU IT JUICE ORAL DISCONT INUED 09/12/2023 [id number] RA NAZ CLAUDINE LIDYA 2022 90 [facility] APIXABAN 5MG TAB TAKE ONE TABLET BY MOUTH EVERY 12 HOURS FOR PREVENTI ON OF BLOOD CLOTS ORAL ACTIVE 11/10/2024 [id number] 5 Magdalena VILLANUEVA 2023 180 [place] APIXABAN 5MG TAB TAKE ONE TABLET BY MOUTH EVERY 12 HOURS FOR PREVENTI ON OF BLOOD CLOTS ORAL DISCONT INUED 07/04/2024 [id number] [place],[facility] AMMED JAWED 2022 60 [facility] ARMODAFINIL 50MG TAB TAKE ONE HALF TABLET BY MOUTH EVERY MORNING FOR 1 WEEK, THEN TAKE ONE TABLET EVERY MORNING ARMODAFI NIL 50MG TABS, TAKE 1/2 TABLET BY MOUTH EVERY MORNING FOR 1 WEEK, THEN 1 TABLET BY MOUTH EVERY MORNING ARMODAFI NIL 50MG TABS, TAKE 1/2 TABLET BY MOUTH EVERY MORNING FOR 1 WEEK, THEN 1 TABLET BY MOUTH EVERY MORNING ORAL ACTIVE 11/10/2024 [id number] 5 Edgar COLINDRES 2024 34 [facility] ASPIRIN 81MG TAB,EC TAKE ONE TABLET BY MOUTH ONCE DAILY TO PREVENT STROKE/H EART ATTACK ORAL DISCONT INUED BY PROVIDE R 09/25/2024 [id number] 4 Magdalena VILLANUEVA 2023 120 [place] ATORVASTATI N CA 40MG TAB TAKE ONE-HALF TABLET BY MOUTH ONCE DAILY FOR CHOLESTE ROL ORAL ACTIVE 03/12/2025 [id number] 5 Magdalena VILLANUEVA 2023 45 [place] ATORVASTATI N CA 40MG TAB TAKE ONE-HALF TABLET BY MOUTH ONCE DAILY FOR CHOLESTE ROL ORAL DISCONT INUED 08/22/2024 [id number] 4 [facility] 2023 45 [facility] BUPRENORPHI NE 15MCG/HR PATCH APPLY 1 PATCH TO SKIN EVERY 5 DAYS FOR PAIN (REMOVE PATCH BEFORE APPLYING A NEW PATCH) TRANSD ERMAL DISCONT INUED BY PROVIDE R 08/19/2024 [id number] 4 [facility] 2023 6 [facility] [place] [facility] BUPRENORPHI NE 15MCG/HR PATCH APPLY 1 PATCH TO SKIN EVERY 5 DAYS (REMOVE PATCH BEFORE APPLYING A NEW PATCH) TRANSD ERMAL DISCONT INUED (EDIT) 05/08/2024 [id number] 4 [facility] 2023 5 [facility] [place] [facility] BUPRENORPHI NE 15MCG/HR PATCH APPLY 1 PATCH TO SKIN EVERY 5 DAYS (REMOVE PATCH BEFORE APPLYING A NEW PATCH) TRANSD ERMAL DISCONT INUED 02/10/2024 [id number] 4 [facility] 2022 5 [facility] [place] [facility] BUPRENORPHI NE 5MCG/HR PATCH APPLY 1 PATCH TO SKIN EVERY 5 DAYS FOR PAIN (REMOVE PATCH BEFORE APPLYING A NEW PATCH) TRANSD ERMAL DISCONT INUED BY PROVIDE R 09/28/2024 [id number] 4 [facility] 2023 6 [facility] [place] [facility] BUPRENORPHI NE 5MCG/HR PATCH APPLY 2 PATCH 5MCG/JULISSA R TO SKIN EVERY 7 DAYS FOR 7 DAYS, THEN APPLY 1 PATCH 5MCG/HR EVERY 7 DAYS FOR 14 DAYS FOR PAIN (REMOVE PATCH BEFORE APPLYING A NEW PATCH) TRANSD ERMAL DISCONT INUED 04/14/2024 [id number] 4 [facility] 2023 2 [facility] [place] [facility] BUPROPION HCL 200MG 12HR TAB,SA TAKE ONE TABLET BY MOUTH EVERY MORNING DEPRESSI ON ORAL DISCONT INUED BY PROVIDE R 09/12/2024 [id number] 4 Edgar COLINDRES E 2023 90 [facility] [place] [facility] BUPROPION HCL 200MG 12HR TAB,SA TAKE ONE TABLET BY MOUTH EVERY MORNING ORAL DISCONT INUED (EDIT) 05/16/2024 [id number] 4 Edgar COLINDRES E 2022 90 [facility] CARBOXYMETH YLCELLULOSE NA 0.5% SOLN,OPH INSTILL 1 DROP INTO EACH EYE FOUR TIMES A DAY FOR DRY EYE OPHTHA LMIC ACTIVE 06/01/2025 [id number] 4 BARBARA ARTEAGA 2023 15 [facility] CITALOPRAM HYDROBROMID E 20MG TAB TAKE ONE-HALF TABLET BY MOUTH ONCE DAILY FOR 4 DAYS, THEN TAKE ONE TABLET ONCE DAILY FOR DEPRESSI ON AND ANXIETY ORAL DISCONT INUED (EDIT) 07/03/2024 [id number] Edgar COLINDRES E 2023 88 [facility] CITALOPRAM HYDROBROMID E 40MG TAB TAKE ONE-HALF TABLET BY MOUTH ONCE DAILY FOR DEPRESSI ON AND ANXIETY ORAL ACTIVE 09/07/2025 [id number] Edgar COLINDRES E 2024 45 [facility] CITALOPRAM HYDROBROMID E 40MG TAB TAKE ONE-HALF TABLET BY MOUTH ONCE DAILY FOR DEPRESSI ON AND ANXIETY ORAL DISCONT INUED (EDIT) 09/09/2024 [id number] 4 Edgar COLINDRES E 2023 45 [facility] CITALOPRAM HYDROBROMID E 40MG TAB TAKE ONE-HALF TABLET BY MOUTH ONCE DAILY FOR DEPRESSI ON AND ANXIETY ORAL DISCONT INUED 07/29/2024 [id number] Edgar COLINDRES E 2023 45 [facility] CITALOPRAM HYDROBROMID E 40MG TAB TAKE ONE-HALF TABLET BY MOUTH ONCE DAILY ORAL ACTIVE МАРИНА CHANCE 2006 [facility] CLONAZEPAM 0.5MG TAB TAKE ONE TABLET BY MOUTH BID PRN ORAL ACTIVE МАРИНА CHANCE 2006 [facility] ENSURE PLUS LIQUID CHOCOLATE DRINK 1 CAN BY MOUTH TWICE DAILY ORAL DISCONT INUED BY PROVIDE R 02/13/2025 [id number] 4 Magdalena VILLANUEVA 2023 48 [place] ESCITALOPRA M OXALATE 20MG TAB TAKE ONE-HALF TABLET BY MOUTH ONCE DAILY FOR MOOD/DEP RESSION ORAL DISCONT INUED BY PROVIDE R 02/13/2025 [id number] 4 Magdalena VILLANUEVA 2023 45 [place] FLUTICASONE 500MCG/SALM ETEROL 50MCG INHL,ORAL,D ISKUS,60 INHALE 1 PUFF BY MOUTH TWICE DAILY - RINSE MOUTH AFTER USE RESPIR ATORY (INHAL ATION) DISCONT INUED BY PROVIDE R 03/12/2025 [id number] 4 Magdalena VILLANUEVA 2023 3 [place] GLUCERNA SHAKE LIQUID VANILLA DRINK 1 BOTTLE BY MOUTH ONCE DAILY FOR NUTRITIO NAL SUPPLEME NT FOR NUTRITIO NAL SUPPLEME NT ORAL ACTIVE 09/21/2025 [id number] 5 Magdalena VILLANUEVA 2024 24 [facility] [place] [facility] HYDROCHLORO THIAZIDE 25MG TAB TAKE ONE-HALF TABLET BY MOUTH ONCE DAILY FOR HIGH BLOOD PRESSURE ORAL DISCONT INUED BY PROVIDE R 02/13/2025 [id number] Magdalena VILLANUEVA 2023 45 [place] HYDROCORTIS ONE 1% OINT,TOP APPLY THIN LAYER TOPICALL Y TWICE DAILY NEEDED FOR ATOPIC DERMATIT IS TOPICA L DISCONT INUED BY PROVIDE R 03/12/2025 [id number] Magdalena VILLANUEVA 2023 90 [place] HYDROXYZINE PAMOATE 25MG CAP TAKE ONE CAPSULE BY MOUTH EVERY 6 HOURS NEEDED FOR ANXIETY ORAL DISCONT INUED BY PROVIDE R 02/13/2025 [id number] 4 Magdalena VILLANUEVA 2023 180 [place] IBUPROFEN 800MG TAB TAKE ONE TABLET BY MOUTH TID PRN ORAL ACTIVE МАРИНА CHANCE 2006 [facility] LATANOPROST 0.005% SOLN,OPH INSTILL 1 DROP INTO EACH EYE AT BEDTIME OPHTHA LMIC ACTIVE 06/22/2025 [id number] BARBARA ARTEAGA 2023 2.5 [facility] [place] [facility] LITHIUM CARBONATE 150MG CAP TAKE ONE CAPSULE BY MOUTH AT BEDTIME MOOD, MEMORY ORAL DISCONT INUED BY PROVIDE R 12/21/2024 [id number] Edgar COLINDRES E 2023 90 [facility] [place] [facility] LORAZEPAM 0.5MG TAB TAKE ONE HALF TABLET BY MOUTH TWICE DAILY NEEDED ORAL DISCONT INUED BY PROVIDE R 09/07/2024 [id number] 4 Edgar COLINDRES E 2023 15 [facility] [place] [facility] LORAZEPAM 0.5MG TAB TAKE ONE HALF TABLET BY MOUTH TWICE DAILY NEEDED ORAL DISCONT INUED 08/17/2024 [id number] 4 Edgar COLINDRES E 2023 15 [facility] MELATONIN 5MG CAP/TAB TAKE ONE CAPSULE/ TABLET BY MOUTH AT BEDTIME FOR INSOMNIA ORAL ACTIVE 03/02/2025 [id number] LINDEN MCKEON 2023 90 [facility] IELD MELATONIN 5MG CAP/TAB TAKE ONE CAPSULE/ TABLET BY MOUTH AT BEDTIME FOR INSOMNIA ORAL DISCONT INUED 09/12/2024 [id number] Edgar COLINDRES E 2023 90 [facility] [facility] MELATONIN 5MG CAP/TAB TAKE ONE CAPSULE/ TABLET BY MOUTH AT BEDTIME FOR INSOMNIA ORAL DISCONT INUED (EDIT) 03/28/2024 [id number] Edgar COLINDRES E 2022 90 [facility] [place] [facility] METFORMIN HCL 500MG 24HR TAB,SA TAKE TWO TABLETS BY MOUTH TWICE DAILY FOR TYPE 2 DIABETES MELLITUS ORAL ACTIVE 09/11/2025 [id number] 5 Santana KNUTOSN 2024 240 [place] METFORMIN HCL 750MG 24HR TAB,SA TAKE ONE TABLET BY MOUTH TWICE DAILY FOR TYPE 2 DIABETES MELLITUS ORAL DISCONT INUED BY PROVIDE R 05/15/2025 [id number] 4 Magdalena VILLANUEVA 2023 180 [place] METFORMIN HCL 750MG 24HR TAB,SA TAKE TWO TABLETS BY MOUTH ONCE DAILY FOR TYPE 2 DIABETES MELLITUS ORAL DISCONT INUED (EDIT) 03/26/2025 [id number] 4 LINDEN MCKEON 2023 180 [place] METFORMIN HCL 750MG 24HR TAB,SA TAKE TWO TABLETS BY MOUTH ONCE DAILY FOR TYPE 2 DIABETES MELLITUS ORAL DISCONT INUED 02/10/2024 [id number] CHANTEL AUSTIN AMTERESA JAWED 2022 180 [facility] [place] [facility] MIRTAZAPINE 15MG TAB TAKE ONE AND ONE-HALF TABLETS BY MOUTH AT BEDTIME ORAL DISCONT INUED BY PROVIDE R 05/15/2024 [id number] Edgar COLINDRES E 2023 135 [facility] [place] [facility] MIRTAZAPINE 30MG TAB TAKE ONE-HALF TABLET BY MOUTH AT BEDTIME FOR DEPRESSI ON/MOOD ORAL DISCONT INUED BY PROVIDE R 09/12/2024 [id number] 4 Edgar COLINDRES E 2023 45 [facility] [place] [facility] NICOTINE 14MG/24HRS PATCH APPLY 1 PATCH TO SKIN ONCE DAILY (REMOVE OLD PATCH BEFORE APPLYING NEW PATCH) TRANSD ERMAL 04/22/2024 [id number] 4 Magdalena VILLANUEVA 2023 42 [place] NICOTINE 7MG/24HRS PATCH APPLY 1 PATCH TO SKIN ONCE DAILY (REMOVE OLD PATCH BEFORE APPLYING NEW PATCH) * USE AFTER 14 MG PATCHES * TRANSD ERMAL 05/20/2024 [id number] 4 Magdalena VILLANUEVA 2023 70 [place] NIFEDIPINE (EQV-CC) 30MG TAB,SA TAKE ONE TABLET BY MOUTH ONCE DAILY ORAL ACTIVE МАРИНА CHANCE 2006 [facility] OMEPRAZOLE 20MG CAP,EC TAKE 1 CAPSULE BY MOUTH EVERY MORNING ORAL ACTIVE МАРИНА CHANCE Gabriela 2006 [facility] ONDANSETRON HCL 4MG TAB,ORALLY DISINTEGRAT ING PLACE ONE TABLET ON THE TONGUE EVERY 8 HOURS NEEDED FOR NAUSEA AND VOMITING (ALLOW TABLET TO DISSOLVE ON TONGUE, AND SWALLOW WITH SALIVA) ORAL 05/10/2024 [id number] 4 Magdalena VILLANUEVA 2023 90 [facility] IELD OXYCODONE HCL 5MG TAB TAKE ONE TABLET BY MOUTH ONCE DAILY NEEDED NEXT FILL 12/04 ORAL 12/06/2023 [id number] 4 JOSE THAKUR 2023 30 [facility] [place] [facility] OXYCODONE HCL 5MG TAB TAKE ONE TABLET BY MOUTH TWICE DAILY NEEDED FOR PAIN ORAL 10/19/2023 [id number] CHANETL AUSTIN AMMED JAWED 2023 56 [facility] [place] [facility] OXYCODONE HCL 5MG TAB TAKE ONE TABLET BY MOUTH TWICE DAILY NEEDED FOR PAIN (NEXT FILL 08/31/23) ORAL 09/01/2023 [id number] CHANTEL AUSTIN AMMED JAWED 2022 56 [facility] [place] [facility] PANTOPRAZOL E NA 40MG TAB,EC TAKE ONE TABLET BY MOUTH EVERY MORNING 30 MINUTES BEFORE BREAKFAS T ORAL ACTIVE 11/10/2024 [id number] 5 Magdalena VILLANUEVA 2023 90 [place] PANTOPRAZOL E NA 40MG TAB,EC TAKE ONE TABLET BY MOUTH EVERY MORNING 30 MINUTES BEFORE BREAKFAS T ORAL DISCONT INUED 05/01/2024 [id number] CHANTEL AUSTIN AMMED JAWED 2022 90 [facility] [place] [facility] QUETIAPINE FUMARATE 25MG TAB TAKE ONE TABLET BY MOUTH AT BEDTIME ORAL ACTIVE 10/22/2025 [id number] 5 Edgar COLINDRES E 2024 90 [facility] QUETIAPINE FUMARATE 25MG TAB TAKE ONE TABLET BY MOUTH AT BEDTIME ORAL DISCONT INUED 05/01/2025 [id number] 4 Edgar COLINDRES E 2023 90 [facility] QUETIAPINE FUMARATE 25MG TAB TAKE ONE TABLET BY MOUTH AT BEDTIME SLEEP, DEPRESSI ON, ANXIETY ORAL DISCONT INUED (EDIT) 04/05/2025 [id number] 4 Edgar COLINDRES E 2023 30 [facility] SENNOSIDES 8.6MG TAB TAKE ONE TABLET BY MOUTH TWICE DAILY NEEDED FOR CONSTIPA TION ORAL 09/25/2024 [id number] 4 Magdalena VILLANUEVA 2023 200 [place] SIMVASTATIN 80MG TAB TAKE ONE-HALF TABLET BY MOUTH EVERY EVENING ORAL ACTIVE МАРИНА CHANCE 2006 [place] [facility] SITAGLIPTIN (EQV-ZITUVI O) 100MG TAB TAKE ONE TABLET BY MOUTH ONCE DAILY ORAL ACTIVE 09/07/2025 [id number] 5 Santana KNUTSON A 2024 90 [place] TIOTROPIUM 2.5MCG/ACTU AT INHL,ORAL,6 0D,4GM INHALE 2 PUFFS BY MOUTH ONCE DAILY RESPIR ATORY (INHAL ATION) ACTIVE 03/12/2025 [id number] 4 Magdalena VILLANUEVA 2023 1 [place] TRAZODONE HCL 100MG TAB TAKE ONE-HALF TABLET BY MOUTH AT BEDTIME INSOMNIA ORAL DISCONT INUED BY PROVIDE R 09/12/2024 [id number] 4 Edgar COLINDRES E 2023 45 [facility] TRAZODONE HCL 50MG TAB TAKE ONE TABLET BY MOUTH QHS PRN ORAL ACTIVE МАРИНА CHANCE 2006 [facility] TRIAMCINOLO NE ACETONIDE 0.025% CREAM,TOP APPLY A MODERATE AMOUNT TOPICALL Y TWICE DAILY NEEDED FOR ATOPIC DERMATIT IS TOPICA L ACTIVE 09/27/2025 [id number] 5 Magdalena VILLANUEVA 2024 45 [place] TRIAMCINOLO NE ACETONIDE 0.1% CREAM,TOP APPLY A THIN LAYER TOPICALL Y EVERY 5 DAYS TOPICA L HOLD 11/06/2024 [id number] SHELLIE HUNG,JOSE B 2023 15 [facility] [place] [facility] Allergies, Adverse Reactions, Alerts Combined list of allergies from Department of Defense and Veterans Affairs facilities. It does not include entries that were removed or entered in error. Substance Category Reaction Severity Reaction type Status Date Reported Comments Source GEMFIBROZIL Propensity to adverse reactions to drug (finding) Diarrhea active 9 [facility] LISINOPRIL Propensity to adverse reactions to drug (finding) Angioedema active 2 [facility] Immunizations Combined list of available immunizations from the Department of Defense and Veterans Affairs facilities. Immunization Series Date Given Administered By Site Reaction Lot Number CVX Code Drug Bridge Worker Status Comments Source COVID-19 (MODERNA), MRNA, LNP-S, PF, 50 MCG/0.5 ML (AGES 12+ YEARS) 2023 STEPHAN DOZIER LEFT DELTO ID [id number] 312 complet ed [facility] [place] [facility] [facility] INFLUENZA, HIGH-DOSE, TRIVALENT, PF 2023 STEPHAN DOZIER RIGHT DELTO ID [id number] A 135 complet ed [facility] [place] [facility] INFLUENZA, UNSPECIFIED FORMULATION 2022 88 complet ed [facility] [place] [facility] PNEUMOCOCCAL CONJUGATE PCV20, POLYSACCHARID E [id number] CONJUGATE, ADJUVANT, PF 2022 ESSIE ROMEO LEFT DELTO ID [id number] 216 complet ed [facility] TDAP 2022 ESSIE ROMEO LEFT DELTO ID [id number] 115 complet ed [facility] [place] [facility] ZOSTER RECOMBINANT 2 2022 ESSIE ROMEO RIGHT DELTO ID [id number] 187 complet ed [facility] COVID-19 (MODERNA), MRNA, LNP-S, BIVALENT BOOSTER, PF, 50 MCG/0.5 ML OR 25MCG/0.25 ML DOSE 1 2021 229 complet ed MOD; [id number]; 3 [facility] [...] Reference Range Date Interpretation Specimen Comments Source C DIFF TOX B GENE PCR CLOSTRIDIO IDES DIFFICILE TOXIN B TCDB GENE [PRESENCE] IN STOOL BY LAKESHIA WITH PROBE DETECTION Negative 08/29 Specimen Type: FECES Comment: The [employer] C. difficile/E pi assay is a real time PCR assay on the [employer] GeneXpert System for the rapid detection of C. difficile toxin B gene sequences and for the presumptive identificat ion of the 027/NAP1/BI strains from stool specimens [...] C. difficile toxins A/B. C. DIFFICILE RESULT INTERPRETAT ION GUIDE: PCR Negative = Toxigenic CDI not present. No further testing. PCR Positive and Toxin Positive = Toxigenic CDI present. PCR Positive and Toxin Negative = Indetermina nt result which could represent either (1) C. difficile colonizatio n OR (2) True infection in setting of a false negative toxin test. Please contact ID team for any questions on C. difficile testing. H* INDICATES A [place] ALERT HAS BEEN SENT Ordering Provider: PORTER KIRBY Report Released Date/Time: Aug 28, 2024 10:23 AM Reporting [facility] [address] [id number] Performing Lab: [facility] [address] [id number] [facility] GASTROIN TESTINAL PANEL (WRLED) CAMPYLOBAC TER SP. Not Detected 08/29 Specimen Type: FECES Comment: The Gastrointes tinal (GI) Panel is an FDA (IVD) approved qualitative multiplex PCR assay on the [employer] System for testing on raw stool specimens transferred into [employer]. It is indicated as an aid in the diagnosis of specific agents of gastrointes tinal illness and results are meant to be used in conjunction with other clinical, laboratory, and epidemiolog ical data. Positive results do not rule out co infection with organisms not included in the [employer] GI Panel. The agent detected may not be the definite cause of the disease. Concomitant culture is necessary for organism recovery, confirmatio n of PCR and further typing of bacterial agents however the agent may not grow upon subculture. Certain analytes on this assay cannot differentia te between specific species of the genus or family and cross reaction can occur within certain genera. False positive results may occur and/or the sensitivity of the PCR panel may detect low levels of pathogen present. The detection of bacteria, parasite and virus nucleic acid is dependent upon proper specimen collection, handling, transportat ion, storage, and preparation . eucl3D Ordering Provider: PORTER KIRBY Report Released Date/Time: Aug 28, 2024 10:23 AM Reporting Lab: [facility] [address] [address] Performing Lab: [facility] [address] [address] [facility] GASTROIN TESTINAL PANEL (WRLED) PLESIOMONA S SHIGELLOID ES Not Detected 08/29 Specimen Type: FECES Comment: The Gastrointes tinal (GI) Panel is an FDA (IVD) approved qualitative multiplex PCR assay on the [employer] System for testing on raw stool specimens transferred into [employer]. It is indicated as an aid in the diagnosis of specific agents of gastrointes tinal illness and results are meant to be used in conjunction with other clinical, laboratory, and epidemiolog ical data. Positive results do not rule out co infection with organisms not included in the [employer] GI Panel. The agent detected may not be the definite cause of the disease. Concomitant culture is necessary for organism recovery, confirmatio n of PCR and further typing of bacterial agents however the agent may not grow upon subculture. Certain analytes on this assay cannot differentia te between specific species of the genus or family and cross reaction can occur within certain genera. False positive results may occur and/or the sensitivity of the PCR panel may detect low levels of pathogen present. The detection of bacteria, parasite and virus nucleic acid is dependent upon proper specimen collection, handling, transportat ion, storage, and preparation . eucl3D Ordering Provider: PORTER KIRBY Report Released Date/Time: Aug 28, 2024 10:23 AM Reporting Lab: [facility] [address] [phone] Performing Lab: [facility] [address] [address] [facility] GASTROIN TESTINAL PANEL (WRLED) SALMONELLA SP. Not Detected 08/29 Specimen Type: FECES Comment: The Gastrointes tinal (GI) Panel is an FDA (IVD) approved qualitative multiplex PCR assay on the [employer] System for testing on raw stool specimens transferred into [employer]. It is indicated as an aid in the diagnosis of specific agents of gastrointes tinal illness and results are meant to be used in conjunction with other clinical, laboratory, and epidemiolog ical data. Positive results do not rule out co infection with organisms not included in the [employer] GI Panel. The agent detected may not be the definite cause of the disease. Concomitant culture is necessary for organism recovery, confirmatio n of PCR and further typing of bacterial agents however the agent may not grow upon subculture. Certain analytes on this assay cannot differentia te between specific species of the genus or family and cross reaction can occur within certain genera. False positive results may occur and/or the sensitivity of the PCR panel may detect low levels of pathogen present. The detection of bacteria, parasite and virus nucleic acid is dependent upon proper specimen collection, handling, transportat ion, storage, and preparation . eucl3D Ordering Provider: PORTER KIRBY Report Released Date/Time: Aug 28, 2024 10:23 AM Reporting Lab: [place] [employer] [employer] FanwardsN DinnDinn [facility] [address] [address] Performing Lab: [place] [employer] [facility] [employer]) App[employer]N DinnDinn [facility] [address] [address] [place] [employer] [facility] [employer] FanwardsN RampedMediaUSE [facility] GASTROIN TESTINAL PANEL (WRLED) VIBRIO SP. Not Detected 08/29 Specimen Type: FECES Comment: The Gastrointes tinal (GI) Panel is an FDA (IVD) approved qualitative multiplex PCR assay on the [employer] System for testing on raw stool specimens transferred into [employer]. It is indicated as an aid in the diagnosis of specific agents of gastrointes tinal illness and results are meant to be used in conjunction with other clinical, laboratory, and epidemiolog ical data. Positive results do not rule out co infection with organisms not included in the [employer] GI Panel. The agent detected may not be the definite cause of the disease. Concomitant culture is necessary for organism recovery, confirmatio n of PCR and further typing of bacterial agents however the agent may not grow upon subculture. Certain analytes on this assay cannot differentia te between specific species of the genus or family and cross reaction can occur within certain genera. False positive results may occur and/or the sensitivity of the PCR panel may detect low levels of pathogen present. The detection of bacteria, parasite and virus nucleic acid is dependent upon proper specimen collection, handling, transportat ion, storage, and preparation . eucl3D Ordering Provider: PORTER KIRBY Report Released Date/Time: Aug 28, 2024 10:23 AM Reporting Lab: [facility] [address] [address] Performing Lab: [facility] [address] [address] [facility] GASTROIN TESTINAL PANEL (WRLED) VIBRIO CHOLERAE Not Detected 08/29 Specimen Type: FECES Comment: The Gastrointes tinal (GI) Panel is an FDA (IVD) approved qualitative multiplex PCR assay on the [employer] System for testing on raw stool specimens transferred into [employer]. It is indicated as an aid in the diagnosis of specific agents of gastrointes tinal illness and results are meant to be used in conjunction with other clinical, laboratory, and epidemiolog ical data. Positive results do not rule out co infection with organisms not included in the [employer] GI Panel. The agent detected may not be the definite cause of the disease. Concomitant culture is necessary for organism recovery, confirmatio n of PCR and further typing of bacterial agents however the agent may not grow upon subculture. Certain analytes on this assay cannot differentia te between specific species of the genus or family and cross reaction can occur within certain genera. False positive results may occur and/or the sensitivity of the PCR panel may detect low levels of pathogen present. The detection of bacteria, parasite and virus nucleic acid is dependent upon proper specimen collection, handling, transportat ion, storage, and preparation . eucl3D Ordering Provider: PORTER KIRBY Report Released Date/Time: Aug 28, 2024 10:23 AM Reporting Lab: [facility] [address] [address] Performing Lab: [facility] [address] [address] [facility] GASTROIN TESTINAL PANEL (WRLED) YERSINIA ENTEROCOLI SHABBIR PCR Not Detected 08/29 Specimen Type: FECES Comment: The Gastrointes tinal (GI) Panel is an FDA (IVD) approved qualitative multiplex PCR assay on the [employer] System for testing on raw stool specimens transferred into [employer]. It is indicated as an aid in the diagnosis of specific agents of gastrointes tinal illness and results are meant to be used in conjunction with other clinical, laboratory, and epidemiolog ical data. Positive results do not rule out co infection with organisms not included in the [employer] GI Panel. The agent detected may not be the definite cause of the disease. Concomitant culture is necessary for organism recovery, confirmatio n of PCR and further typing of bacterial agents however the agent may not grow upon subculture. Certain analytes on this assay cannot differentia te between specific species of the genus or family and cross reaction can occur within certain genera. False positive results may occur and/or the sensitivity of the PCR panel may detect low levels of pathogen present. The detection of bacteria, parasite and virus nucleic acid is dependent upon proper specimen collection, handling, transportat ion, storage, and preparation . eucl3D Ordering Provider: PORTER KIRBY Report Released Date/Time: Aug 28, 2024 10:23 AM Reporting Lab: [facility] [employer] DynamicsGRACIE SQUARE [facility] [address] [address] Performing Lab: [place] [employer] [facility] [employer] [employer] DynamicsGRACIE SQUARE [facility] [address] [address] [facility] FanwardsROBERT [facility] SoundropKINGS [facility] GASTROIN TESTINAL PANEL (WRLED) ENTEROAGGR EGATIVE E. COLI (EAEC) Not Detected 08/29 Specimen Type: FECES Comment: The Gastrointes tinal (GI) Panel is an FDA (IVD) approved qualitative multiplex PCR assay on the [employer] System for testing on raw stool specimens transferred into [employer]. It is indicated as an aid in the diagnosis of specific agents of gastrointes tinal illness and results are meant to be used in conjunction with other clinical, laboratory, and epidemiolog ical data. Positive results do not rule out co infection with organisms not included in the [employer] GI Panel. The agent detected may not be the definite cause of the disease. Concomitant culture is necessary for organism recovery, confirmatio n of PCR and further typing of bacterial agents however the agent may not grow upon subculture. Certain analytes on this assay cannot differentia te between specific species of the genus or family and cross reaction can occur within certain genera. False positive results may occur and/or the sensitivity of the PCR panel may detect low levels of pathogen present. The detection of bacteria, parasite and virus nucleic acid is dependent upon proper specimen collection, handling, transportat ion, storage, and preparation . eucl3D Ordering Provider: PORTER KIRBY Report Released Date/Time: Aug 28, 2024 10:23 AM Reporting Lab: [facility] FanwardsROBERT [facility] RampedMediaUSEGRACIE SQUARE HOSPITAL [address] [address] Performing Lab: [place] [employer] [facility] [employer]) FanwardsR[facility] RampedMediaUSEGRACIE SQUARE HOSPITAL [address] [address] [facility] FanwardsR[facility] RampedMediaKAWEAH [facility] GASTROIN TESTINAL PANEL (WRLED) ENTEROPATH OGENIC E. COLI (EPEC) Not Detected 08/29 Specimen Type: FECES Comment: The Gastrointes tinal (GI) Panel is an FDA (IVD) approved qualitative multiplex PCR assay on the [employer] System for testing on raw stool specimens transferred into [employer]. It is indicated as an aid in the diagnosis of specific agents of gastrointes tinal illness and results are meant to be used in conjunction with other clinical, laboratory, and epidemiolog ical data. Positive results do not rule out co infection with organisms not included in the [employer] GI Panel. The agent detected may not be the definite cause of the disease. Concomitant culture is necessary for organism recovery, confirmatio n of PCR and further typing of bacterial agents however the agent may not grow upon subculture. Certain analytes on this assay cannot differentia te between specific species of the genus or family and cross reaction can occur within certain genera. False positive results may occur and/or the sensitivity of the PCR panel may detect low levels of pathogen present. The detection of bacteria, parasite and virus nucleic acid is dependent upon proper specimen collection, handling, transportat ion, storage, and preparation . eucl3D Ordering Provider: PORTER KIRBY Report Released Date/Time: Aug 28, 2024 10:23 AM Reporting Lab: [place] [employer] [address] [phone] Performing Lab: [facility] [address] [facility] [address] [facility] GASTROIN TESTINAL PANEL (WRLED) ENTEROTOXI GENIC E. COLI (ETEC) LT/ST Not Detected 08/29 Specimen Type: FECES Comment: The Gastrointes tinal (GI) Panel is an FDA (IVD) approved qualitative multiplex PCR assay on the [employer] System for testing on raw stool specimens transferred into [employer]. It is indicated as an aid in the diagnosis of specific agents of gastrointes tinal illness and results are meant to be used in conjunction with other clinical, laboratory, and epidemiolog ical data. Positive results do not rule out co infection with organisms not included in the [employer] GI Panel. The agent detected may not be the definite cause of the disease. Concomitant culture is necessary for organism recovery, confirmatio n of PCR and further typing of bacterial agents however the agent may not grow upon subculture. Certain analytes on this assay cannot differentia te between specific species of the genus or family and cross reaction can occur within certain genera. False positive results may occur and/or the sensitivity of the PCR panel may detect low levels of pathogen present. The detection of bacteria, parasite and virus nucleic acid is dependent upon proper specimen collection, handling, transportat ion, storage, and preparation . eucl3D Ordering Provider: PORTER KIRBY Report Released Date/Time: Aug 28, 2024 10:23 AM Reporting Lab: [facility] [address] [address] Performing Lab: [facility] [address] [address] [facility] GASTROIN TESTINAL PANEL (WRLED) SHIGA-LIKE TOXIN-PROD UCING E. COLI Not Detected 08/29 Specimen Type: FECES Comment: The Gastrointes tinal (GI) Panel is an FDA (IVD) approved qualitative multiplex PCR assay on the [employer] System for testing on raw stool specimens transferred into [employer]. It is indicated as an aid in the diagnosis of specific agents of gastrointes tinal illness and results are meant to be used in conjunction with other clinical, laboratory, and epidemiolog ical data. Positive results do not rule out co infection with organisms not included in the [employer] GI Panel. The agent detected may not be the definite cause of the disease. Concomitant culture is necessary for organism recovery, confirmatio n of PCR and further typing of bacterial agents however the agent may not grow upon subculture. Certain analytes on this assay cannot differentia te between specific species of the genus or family and cross reaction can occur within certain genera. False positive results may occur and/or the sensitivity of the PCR panel may detect low levels of pathogen present. The detection of bacteria, parasite and virus nucleic acid is dependent upon proper specimen collection, handling, transportat ion, storage, and preparation . eucl3D Ordering Provider: PORTER KIRBY Report Released Date/Time: Aug 28, 2024 10:23 AM Reporting Lab: [place] [employer] [facility] [employer]wardsR[facility] DinnDinn [facility] [address] [address] Performing Lab: [place] [employer] [employer]) [employer] [facility] [address] [address] [place] [employer]) FanwardsR[facility] RampedMediaUSE [facility] GASTROIN TESTINAL PANEL (WRLED) SHIGELLA/E NTEROINVAS DEANDRA E. COLI (EIEC) Not Detected 08/29 Specimen Type: FECES Comment: The Gastrointes tinal (GI) Panel is an FDA (IVD) approved qualitative multiplex PCR assay on the [employer] System for testing on raw stool specimens transferred into [employer]. It is indicated as an aid in the diagnosis of specific agents of gastrointes tinal illness and results are meant to be used in conjunction with other clinical, laboratory, and epidemiolog ical data. Positive results do not rule out co infection with organisms not included in the [employer] GI Panel. The agent detected may not be the definite cause of the disease. Concomitant culture is necessary for organism recovery, confirmatio n of PCR and further typing of bacterial agents however the agent may not grow upon subculture. Certain analytes on this assay cannot differentia te between specific species of the genus or family and cross reaction can occur within certain genera. False positive results may occur and/or the sensitivity of the PCR panel may detect low levels of pathogen present. The detection of bacteria, parasite and virus nucleic acid is dependent upon proper specimen collection, handling, transportat ion, storage, and preparation . eucl3D Ordering Provider: PORTER KIRBY Report Released Date/Time: Aug 28, 2024 10:23 AM Reporting Lab: [facility] [address] [address] Performing Lab: [facility] [address] [address] [facility] GASTROIN TESTINAL PANEL (WRLED) ADENOVIRUS F 40/41 Not Detected 08/29 Specimen Type: FECES Comment: The Gastrointes tinal (GI) Panel is an FDA (IVD) approved qualitative multiplex PCR assay on the [employer] System for testing on raw stool specimens transferred into [employer]. It is indicated as an aid in the diagnosis of specific agents of gastrointes tinal illness and results are meant to be used in conjunction with other clinical, laboratory, and epidemiolog ica data. Positive results do not rule out co infection with organisms not included in the [employer] GI Panel. The agent detected may not be the definite cause of the disease. Concomitant culture is necessary for organism recovery, confirmatio n of PCR and further typing of bacterial agents however the agent may not grow upon subculture. Certain analytes on this assay cannot differentia te between specific species of the genus or family and cross reaction can occur within certain genera. False positive results may occur and/or the sensitivity of the PCR panel may detect low levels of pathogen present. The detection of bacteria, parasite and virus nucleic acid is dependent upon proper specimen collection, handling, transportat ion, storage, and preparation . eucl3D Ordering Provider: PORTER KIRBY Report Released Date/Time: Aug 28, 2024 10:23 AM Reporting Lab: [facility]ITALUS[facility] [address] [address] Performing Lab: [facility] [address] [address] [facility] GASTROIN TESTINAL PANEL (WRLED) ASTROVIRUS Not Detected 08/29 Specimen Type: FECES Comment: The Gastrointes tinal (GI) Panel is an FDA (IVD) approved qualitative multiplex PCR assay on the [employer] System for testing on raw stool specimens transferred into [employer]. It is indicated as an aid in the diagnosis of specific agents of gastrointes tinal illness and results are meant to be used in conjunction with other clinical, laboratory, and epidemiolog ical data. Positive results do not rule out co infection with organisms not included in the [employer] GI Panel. The agent detected may not be the definite cause of the disease. Concomitant culture is necessary for organism recovery, confirmatio n of PCR and further typing of bacterial agents however the agent may not grow upon subculture. Certain analytes on this assay cannot differentia te between specific species of the genus or family and cross reaction can occur within certain genera. False positive results may occur and/or the sensitivity of the PCR panel may detect low levels of pathogen present. The detection of bacteria, parasite and virus nucleic acid is dependent upon proper specimen collection, handling, transportat ion, storage, and preparation . eucl3D Ordering Provider: PORTER KIRBY Report Released Date/Time: Aug 28, 2024 10:23 AM Reporting Lab: [facility] R[facility]MediaCARTHAGE [facility] [address] [address] Performing Lab: [facility] [employer] DynamicsGRACIE SQUARE [facility] [address] [address] [facility] SoundropKINGS [facility] GASTROIN TESTINAL PANEL (WRLED) NOROVIRUS GI/GII PCR Not Detected 08/29 Specimen Type: FECES Comment: The Gastrointes tinal (GI) Panel is an FDA (IVD) approved qualitative multiplex PCR assay on the [employer] System for testing on raw stool specimens transferred into [employer]. It is indicated as an aid in the diagnosis of specific agents of gastrointes tinal illness and results are meant to be used in conjunction with other clinical, laboratory, and epidemiolog ical data. Positive results do not rule out co infection with organisms not included in the [employer] GI Panel. The agent detected may not be the definite cause of the disease. Concomitant culture is necessary for organism recovery, confirmatio n of PCR and further typing of bacterial agents however the agent may not grow upon subculture. Certain analytes on this assay cannot differentia te between specific species of the genus or family and cross reaction can occur within certain genera. False positive results may occur and/or the sensitivity of the PCR panel may detect low levels of pathogen present. The detection of bacteria, parasite and virus nucleic acid is dependent upon proper specimen collection, handling, transportat ion, storage, and preparation . eucl3D Ordering Provider: PORTER KIRBY Report Released Date/Time: Aug 28, 2024 10:23 AM Reporting Lab: [facility] FanwardsROB[facility] RampedMediaUSEGRACIE SQUARE HOSPITAL [address] [address] Performing Lab: [place] [employer] [employer]) FanwardsR[facility] RampedMediaCARTHAGE [facility] [address] [address] [facility] FanwardsR[facility] SoundropKINGS [facility] GASTROIN TESTINAL PANEL (WRLED) ROTAVIRUS A PCR Not Detected 08/29 Specimen Type: FECES Comment: The Gastrointes tinal (GI) Panel is an FDA (IVD) approved qualitative multiplex PCR assay on the [employer] System for testing on raw stool specimens transferred into [employer]. It is indicated as an aid in the diagnosis of specific agents of gastrointes tinal illness and results are meant to be used in conjunction with other clinical, laboratory, and epidemiolog ical data. Positive results do not rule out co infection with organisms not included in the [employer] GI Panel. The agent detected may not be the definite cause of the disease. Concomitant culture is necessary for organism recovery, confirmatio n of PCR and further typing of bacterial agents however the agent may not grow upon subculture. Certain analytes on this assay cannot differentia te between specific species of the genus or family and cross reaction can occur within certain genera. False positive results may occur and/or the sensitivity of the PCR panel may detect low levels of pathogen present. The detection of bacteria, parasite and virus nucleic acid is dependent upon proper specimen collection, handling, transportat ion, storage, and preparation . eucl3D Ordering Provider: PORTER KIRBY Report Released Date/Time: Aug 28, 2024 10:23 AM Reporting Lab: [place] [employer] [facility] [employer] FanwardsROB[facility] RampedMediaUSE[address] [address] Performing Lab: [facility] [address] [address] [facility] GASTROIN TESTINAL PANEL (WRLED) SAPOVIRUS (GENOGROUP S I,II,IV&V) Not Detected 08/29 Specimen Type: FECES Comment: The Gastrointes tinal (GI) Panel is an FDA (IVD) approved qualitative multiplex PCR assay on the [employer] System for testing on raw stool specimens transferred into [employer]. It is indicated as an aid in the diagnosis of specific agents of gastrointes tinal illness and results are meant to be used in conjunction with other clinical, laboratory, and epidemiolog ica data. Positive results do not rule out co infection with organisms not included in the [employer] GI Panel. The agent detected may not be the definite cause of the disease. Concomitant culture is necessary for organism recovery, confirmatio n of PCR and further typing of bacterial agents however the agent may not grow upon subculture. Certain analytes on this assay cannot differentia te between specific species of the genus or family and cross reaction can occur within certain genera. False positive results may occur and/or the sensitivity of the PCR panel may detect low levels of pathogen present. The detection of bacteria, parasite and virus nucleic acid is dependent upon proper specimen collection, handling, transportat ion, storage, and preparation . eucl3D Ordering Provider: PORTER KIRBY Report Released Date/Time: Aug 28, 2024 10:23 AM Reporting Lab: [address] [address] Performing Lab: [facility] [address] [address] [facility] GASTROIN TESTINAL PANEL (WRLED) CRYPTOSPOR IDIUM PCR Not Detected 08/29 Specimen Type: FECES Comment: The Gastrointes tinal (GI) Panel is an FDA (IVD) approved qualitative multiplex PCR assay on the [employer] System for testing on raw stool specimens transferred into [employer]. It is indicated as an aid in the diagnosis of specific agents of gastrointes tinal illness and results are meant to be used in conjunction with other clinical, laboratory, and epidemiolog ical data. Positive results do not rule out co infection with organisms not included in the [employer] GI Panel. The agent detected may not be the definite cause of the disease. Concomitant culture is necessary for organism recovery, confirmatio n of PCR and further typing of bacterial agents however the agent may not grow upon subculture. Certain analytes on this assay cannot differentia te between specific species of the genus or family and cross reaction can occur within certain genera. False positive results may occur and/or the sensitivity of the PCR panel may detect low levels of pathogen present. The detection of bacteria, parasite and virus nucleic acid is dependent upon proper specimen collection, handling, transportat ion, storage, and preparation . eucl3D Ordering Provider: PORTER KIRBY Report Released Date/Time: Aug 28, 2024 10:23 AM Reporting Lab: [place] [employer] [facility] [address] [address] Performing Lab: [place] [employer] [facility] [employer] [employer] [facility] [address] [address] [place] [employer] [facility] GASTROIN TESTINAL PANEL (WRLED) CYCLOSPORA CAYETANENS IS Not Detected 08/29 Specimen Type: FECES Comment: The Gastrointes tinal (GI) Panel is an FDA (IVD) approved qualitative multiplex PCR assay on the [employer] System for testing on raw stool specimens transferred into [employer]. It is indicated as an aid in the diagnosis of specific agents of gastrointes tinal illness and results are meant to be used in conjunction with other clinical, laboratory, and epidemiolog ical data. Positive results do not rule out co infection with organisms not included in the [employer] GI Panel. The agent detected may not be the definite cause of the disease. Concomitant culture is necessary for organism recovery, confirmatio n of PCR and further typing of bacterial agents however the agent may not grow upon subculture. Certain analytes on this assay cannot differentia te between specific species of the genus or family and cross reaction can occur within certain genera. False positive results may occur and/or the sensitivity of the PCR panel may detect low levels of pathogen present. The detection of bacteria, parasite and virus nucleic acid is dependent upon proper specimen collection, handling, transportat ion, storage, and preparation . eucl3D Ordering Provider: PORTER KIRBY Report Released Date/Time: Aug 28, 2024 10:23 AM Reporting Lab: [facility] [address] [address] Performing Lab: [facility] [address] [address] [facility] GASTROIN TESTINAL PANEL (WRLED) ENTAMOEBA HISTOLYTIC A PCR Not Detected 08/29 Specimen Type: FECES Comment: The Gastrointes tinal (GI) Panel is an FDA (IVD) approved qualitative multiplex PCR assay on the [employer] System for testing on raw stool specimens transferred into [employer]. It is indicated as an aid in the diagnosis of specific agents of gastrointes tinal illness and results are meant to be used in conjunction with other clinical, laboratory, and epidemiolog ical data. Positive results do not rule out co infection with organisms not included in the [employer] GI Panel. The agent detected may not be the definite cause of the disease. Concomitant culture is necessary for organism recovery, confirmatio n of PCR and further typing of bacterial agents however the agent may not grow upon subculture. Certain analytes on this assay cannot differentia te between specific species of the genus or family and cross reaction can occur within certain genera. False positive results may occur and/or the sensitivity of the PCR panel may detect low levels of pathogen present. The detection of bacteria, parasite and virus nucleic acid is dependent upon proper specimen collection, handling, transportat ion, storage, and preparation . eucl3D Ordering Provider: PORTER KIRBY Report Released Date/Time: Aug 28, 2024 10:23 AM Reporting Lab: [facility] [address] [address] Performing Lab: [facility] [address] [address] [facility] GASTROIN TESTINAL PANEL (WRLED) GIARDIA LAMBLIA PCR Not Detected 08/29 Specimen Type: FECES Comment: The Gastrointes tinal (GI) Panel is an FDA (IVD) approved qualitative multiplex PCR assay on the [employer] System for testing on raw stool specimens transferred into [employer]. It is indicated as an aid in the diagnosis of specific agents of gastrointes tinal illness and results are meant to be used in conjunction with other clinical, laboratory, and epidemiolog ical data. Positive results do not rule out co infection with organisms not included in the [employer] GI Panel. The agent detected may not be the definite cause of the disease. Concomitant culture is necessary for organism recovery, confirmatio n of PCR and further typing of bacterial agents however the agent may not grow upon subculture. Certain analytes on this assay cannot differentia te between specific species of the genus or family and cross reaction can occur within certain genera. False positive results may occur and/or the sensitivity of the PCR panel may detect low levels of pathogen present. The detection of bacteria, parasite and virus nucleic acid is dependent upon proper specimen collection, handling, transportat ion, storage, and preparation . eucl3D Ordering Provider: PORTER KIRBY Report Released Date/Time: Aug 28, 2024 10:23 AM Reporting Lab: [facility] [address] [address] Performing Lab: [facility] [address] [address] [facility] BASIC METABOLI C PANEL (non-fas ting) UREA NITROGEN [MASS/VOLU ME] IN SERUM OR PLASMA 16 mg/dL 7 - 25 08/28 Specimen Type: SERUM No comment entered. Ordering Provider: PORTER KIRBY Report Released Date/Time: Aug 28, 2024 10:23 AM Reporting Lab: [facility] [address] [address] Performing Lab: [address] [address] [facility] BASIC METABOLI C PANEL (non-fas ting) GLUCOSE [MASS/VOLU ME] IN SERUM OR PLASMA 212 mg/dL 65 - 100 08/28 H Specimen Type: SERUM No comment entered. Ordering Provider: PORTER KIRBY Report Released Date/Time: Aug 28, 2024 10:23 AM Reporting Lab: [facility] [place] [facility] [address] [address] Performing Lab: [facility] [place] [facility] [address] [address] [facility] [place] [facility] BASIC METABOLI C PANEL (non-fas ting) SODIUM [MOLES/VOL UME] IN SERUM OR PLASMA 137 mmol/L 135 - 145 08/28 Specimen Type: SERUM No comment entered. Ordering Provider: PORTER KIRBY Report Released Date/Time: Aug 28, 2024 10:23 AM Reporting Lab: [facility] [place] [facility] [address] [address] Performing Lab: [facility] [place] [address] [address] [facility] [place] [facility] BASIC METABOLI C PANEL (non-fas ting) POTASSIUM [MOLES/VOL UME] IN SERUM OR PLASMA 4.4 mmol/L 3.5 - 5.0 08/28 Specimen Type: SERUM No comment entered. Ordering Provider: PORTER KIRBY Report Released Date/Time: Aug 28, 2024 10:23 AM Reporting Lab: [facility] [place] [address] [address] Performing Lab: [facility] [place] [address] [address] [facility] [place] [facility] BASIC METABOLI C PANEL (non-fas ting) CHLORIDE [MOLES/VOL UME] IN SERUM OR PLASMA 102 mmol/L 100 - 110 08/28 Specimen Type: SERUM No comment entered. Ordering Provider: PORTER KIRBY Report Released Date/Time: Aug 28, 2024 10:23 AM Reporting Lab: [facility] [place] [address] [address] Performing Lab: [facility] [address] [address] [facility] BASIC METABOLI C PANEL (non-fas ting) CARBON DIOXIDE, TOTAL [MOLES/VOL UME] IN SERUM OR PLASMA 25 meq/L 20 - 30 08/28 Specimen Type: SERUM No comment entered. Ordering Provider: PORTER KIRBY Report Released Date/Time: Aug 28, 2024 10:23 AM Reporting Lab: [facility] [address] [address] Performing Lab[facility] [address] [address] [facility] BASIC METABOLI C PANEL (non-fas ting) CREATININE [MASS/VOLU ME] IN SERUM OR PLASMA 0.76 mg/dL 0.50 - 1.40 08/28 Specimen Type: SERUM No comment entered. Ordering Provider: PORTER KIRBY Report Released Date/Time: Aug 28, 2024 10:23 AM Reporting Lab: [facility] [address] [address] Performing Lab: [address] [address] [facility] BASIC METABOLI C PANEL (non-fas ting) GLOMERULAR FILTRATION RATE/1.73 SQ M.PREDICTE D [VOLUME RATE/AREA] IN SERUM, PLASMA OR BLOOD BY CREATININE -BASED FORMULA (CKD-EPI 2020) 88 mL/min 60 08/28 Specimen Type: SERUM No comment entered. Ordering Provider: PORTER KIRBY Report Released Date/Time: Aug 28, 2024 10:23 AM Reporting Lab: [address] [address] Performing Lab: [address] [address] [facility] URINALYS IS CLEAN CATCH COLOR OF URINE Yellow 08/28 Specimen Type: URINE Comment: If Glucose = >500 and Ketones are positive, please alert the Physician. Critical result acknowledge lovely IKRBY 08/28/24 18 BY Ordering Provider: PORTER KIRBY Report Released Date/Time: Aug 28, 2024 10:23 AM Reporting Lab: [facility] [place] [facility] [address] [address] Performing Lab: [facility] [place] [address] [address] [facility] [place] [facility] URINALYS IS CLEAN CATCH APPEARANCE OF URINE Clear 08/28 Specimen Type: URINE Comment: If Glucose = >500 and Ketones are positive, please alert the Physician. Critical result acknowledge lovely KIRBY 08/28/24@07 08 BY Ordering Provider: PORTER KIRBY Report Released Date/Time: Aug 28, 2024 10:23 AM Reporting Lab: [facility] [place] [address] [address] Performing Lab: [facility] [place] [id number] [facility] [place] [facility] URINALYS IS CLEAN CATCH GLUCOSE [MASS/VOLU ME] IN URINE 1,000mg/ dL 08/28 Specimen Type: URINE Comment: If Glucose = >500 and Ketones are positive, please alert the Physician. Critical result acknowledge lovely KIRBY 08/28/24 18 BY Ordering Provider: PORTER KIRBY Report Released Date/Time: Aug 28, 2024 10:23 AM Reporting Lab: [facility] [place] [facility] [address] [address] Performing Lab: [facility] [place] [facility] [address] [address] [facility] [place] [facility] URINALYS IS CLEAN CATCH KETONES [MASS/VOLU ME] IN URINE BY TEST STRIP TRACEmg/ dL 08/28 Specimen Type: URINE Comment: If Glucose = >500 and Ketones are positive, please alert the Physician. Critical result acknowledge lovely KIRBY 08/28/24@ 18 BY Ordering Provider: PORTER KIRBY Report Released Date/Time: Aug 28, 2024 10:23 AM Reporting Lab: [facility] [facility] [address] [address] Performing Lab: [facility] [place] [facility] [address] [address] [facility] [place] [facility] URINALYS IS CLEAN CATCH ERYTHROCYT ES [PRESENCE] IN URINE SEDIMENT BY LIGHT MICROSCOPY NEGATIVE mg/dL 08/28 Specimen Type: URINE Comment: If Glucose = >500 and Ketones are positive, please alert the Physician. Critical result acknowledge lovely KIRBY 08/28/24@ 18 BY Ordering Provider: PORTER KIRBY Report Released Date/Time: Aug 28, 2024 10:23 AM Reporting Lab: [facility] [facility] [address] [address] Performing Lab: [facility] [place] [address] [address] [facility] [place] [facility] URINALYS IS CLEAN CATCH PROTEIN [MASS/VOLU ME] IN URINE BY TEST STRIP 30 mg/dL 08/28 Specimen Type: URINE Comment: If Glucose = >500 and Ketones are positive, please alert the Physician. Critical result acknowledge lovely KIRBY 08/28/24@ 18 BY Ordering Provider: PORTER KIRBY Report Released Date/Time: Aug 28, 2024 10:23 AM Reporting Lab: [facility] [place] [address] [address] Performing Lab: [facility] [place] [address] [address] [facility] [place] [facility] URINALYS IS CLEAN CATCH NITRITE [PRESENCE] IN URINE NEGATIVE mg/dL 08/28 Specimen Type: URINE Comment: If Glucose = >500 and Ketones are positive, please alert the Physician. Critical result acknowledge lovely KIRBY 08/28/24@ 18 BY Ordering Provider: PORTER KIRBY Report Released Date/Time: Aug 28, 2024 10:23 AM Reporting Lab: [facility] [place] [facility] [address] [address] Performing Lab: [facility] [place] [facility] [address] [address] [facility] [place] [facility] URINALYS IS CLEAN CATCH BILIRUBIN. TOTAL [PRESENCE] IN URINE NEGATIVE mg/dL 08/28 Specimen Type: URINE Comment: If Glucose = >500 and Ketones are positive, please alert the Physician. Critical result acknowledge lovely KIRBY 08/28/24@ 18 BY Ordering Provider: PORTER KIRBY Report Released Date/Time: Aug 28, 2024 10:23 AM Reporting Lab: [facility] [place] [address] [address] Performing Lab: [facility] [place] [facility] [address] [place] [address] [facility] [place] [facility] URINALYS IS CLEAN CATCH SPECIFIC GRAVITY OF URINE BY REFRACTOME TRY 1.038 1.016 - 1.022 08/28 H Specimen Type: URINE Comment: If Glucose = >500 and Ketones are positive, please alert the Physician. Critical result acknowledge lovely KIRBY 08/28/24@ 18 BY Ordering Provider: PORTER KIRBY Report Released Date/Time: Aug 28, 2024 10:23 AM Reporting Lab: [facility] [place] [address] [address] Performing Lab: [facility] [place] [facility] [address] [address] [facility] [place] [facility] URINALYS IS CLEAN CATCH PH OF URINE BY TEST STRIP 5.5 5.0 - 9.0 08/28 Specimen Type: URINE Comment: If Glucose = >500 and Ketones are positive, please alert the Physician. Critical result acknowledge lovely KIRBY 08/28/24@ 18 BY Ordering Provider: PORTER KIRBY Report Released Date/Time: Aug 28, 2024 10:23 AM Reporting Lab: [facility] [place] [address] [address] Performing Lab: [facility] [place] [facility] [address] [address] [facility] [place] [place] [facility] URINALYS IS CLEAN CATCH UROBILINOG EN [MASS/VOLU ME] IN URINE BY TEST STRIP 3 mg/dL <2.0 - 2.0 08/28 Specimen Type: URINE Comment: If Glucose = >500 and Ketones are positive, please alert the Physician. Critical result acknowledge lovely KIRBY 08/28/24@ 18 BY Ordering Provider: PORTER KIRBY Report Released Date/Time: Aug 28, 2024 10:23 AM Reporting Lab: [facility] [place] [facility] [address] [address] Performing Lab: [facility] [place] [address] [address] [facility] [place] [facility] URINALYS IS CLEAN CATCH LEUKOCYTE ESTERASE [PRESENCE] IN URINE BY TEST STRIP NEGATIVE 08/28 Specimen Type: URINE Comment: If Glucose = >500 and Ketones are positive, please alert the Physician. Critical result acknowledge lovely KIRBY 08/28/24@ 18 BY Ordering Provider: PORTER KIRBY Report Released Date/Time: Aug 28, 2024 10:23 AM Reporting Lab: [facility] [place] [facility] [address] [address] Performing Lab: [facility] [place] [address] [address] [facility] [place] [facility] CBC AND DIFF (AUTO) LEUKOCYTES [#/VOLUME] IN BLOOD BY AUTOMATED COUNT 6.48 10*3/uL 4.50 - 11.00 08/28 Specimen Type: BLOOD No comment entered. Ordering Provider: PORTER KIRBY Report Released Date/Time: Aug 28, 2024 10:23 AM Reporting Lab: [facility] [place] [facility] [address] [address] Performing Lab: [facility] [place] [address] [address] [facility] [place] [place] [facility] CBC AND DIFF (AUTO) ERYTHROCYT ES [#/VOLUME] IN BLOOD BY AUTOMATED COUNT 4.37 10*6/uL 4.23 - 5.66 08/28 Specimen Type: BLOOD No comment entered. Ordering Provider: PORTER KIRBY Report Released Date/Time: Aug 28, 2024 10:23 AM Reporting Lab: [facility] [place] [address] [address] Performing Lab: [facility] [place] [facility] [address] [address] [facility] [place] [facility] CBC AND DIFF (AUTO) HEMOGLOBIN [MASS/VOLU ME] IN BLOOD 12.3 g/dL 12.8 - 17 08/28 L Specimen Type: BLOOD No comment entered. Ordering Provider: PORTER KIRBY Report Released Date/Time: Aug 28, 2024 10:23 AM Reporting Lab: [facility] [place] [address] [address] Performing Lab: [facility] [place] [address] [address] [facility] [place] [facility] CBC AND DIFF (AUTO) HEMATOCRIT [VOLUME FRACTION] OF BLOOD BY AUTOMATED COUNT 35.5 39.2 - 50.4 08/28 L Specimen Type: BLOOD No comment entered. Ordering Provider: PORTER KIRBY Report Released Date/Time: Aug 28, 2024 10:23 AM Reporting Lab: [facility] [place] [address] [address] Performing Lab: [facility] [place] [address] [address] [facility] [place] [facility] CBC AND DIFF (AUTO) MCV [ENTITIC VOLUME] BY AUTOMATED COUNT 81.2 fL 82 - 99 08/28 L Specimen Type: BLOOD No comment entered. Ordering Provider: PORTER KIRBY Report Released Date/Time: Aug 28, 2024 10:23 AM Reporting Lab: [facility] [place] [address] [address] Performing Lab: [facility] [place] [facility] [address] [facility] [address] [facility] [place] [facility] CBC AND DIFF (AUTO) MCHC [MASS/VOLU ME] BY AUTOMATED COUNT 34.6 g/dL 30.8 - 35.1 08/28 Specimen Type: BLOOD No comment entered. Ordering Provider: PORTER KIRBY Report Released Date/Time: Aug 28, 2024 10:23 AM Reporting Lab: [facility] [place] [facility] [address] [address] Performing Lab: [facility] [place] [facility] [address] [address] [facility] [place] [facility] CBC AND DIFF (AUTO) PLATELETS [#/VOLUME] IN BLOOD BY AUTOMATED COUNT 218 10*3/uL 140 - 360 08/28 Specimen Type: BLOOD No comment entered. Ordering Provider: PORTER KIRBY Report Released Date/Time: Aug 28, 2024 10:23 AM Reporting Lab: [facility] [place] [facility] [address] [address] Performing Lab: [facility] [place] [facility] [address] [address] [facility] [place] [facility] CBC AND DIFF (AUTO) ERYTHROCYT E DISTRIBUTI ON WIDTH [RATIO] BY AUTOMATED COUNT 12.6 12.0 - 16.0 08/28 Specimen Type: BLOOD No comment entered. Ordering Provider: PORTER KIRBY Report Released Date/Time: Aug 28, 2024 10:23 AM Reporting Lab: [facility] [place] [facility] [address] [facility] [address] Performing Lab: [facility] [place] [facility] [address] [address] [facility] [place] [facility] CBC AND DIFF (AUTO) MONOCYTES [#/VOLUME] IN BLOOD BY AUTOMATED COUNT 0.56 10*3/uL 0.30 - 1.10 08/28 Specimen Type: BLOOD No comment entered. Ordering Provider: PORTER KIRBY Report Released Date/Time: Aug 28, 2024 10:23 AM Reporting Lab: [facility] [place] [facility] [address] [facility] [address] Performing Lab: [facility] [place] [facility] [address] [address] [facility] [place] [facility] CBC AND DIFF (AUTO) MCH [ENTITIC MASS] BY AUTOMATED COUNT 28.1 pg 26.2 - 32.6 08/28 Specimen Type: BLOOD No comment entered. Ordering Provider: PORTER KIRBY Report Released Date/Time: Aug 28, 2024 10:23 AM Reporting Lab: [facility] [place] [facility] [address] [address] Performing Lab: [facility] [place] [facility] [address] [address] [facility] [place] [facility] CBC AND DIFF (AUTO) NEUTROPHIL S/100 LEUKOCYTES IN BLOOD BY AUTOMATED COUNT 64.8 43.7 - 75.8 08/28 Specimen Type: BLOOD No comment entered. Ordering Provider: PORTER KIRBY Report Released Date/Time: Aug 28, 2024 10:23 AM Reporting Lab: [facility] [place] [facility] [address] [address] Performing Lab: [facility] [place] [facility] [address] [address] [facility] [place] [place] [facility] CBC AND DIFF (AUTO) LYMPHOCYTE S/100 LEUKOCYTES IN BLOOD BY AUTOMATED COUNT 22.1 14.0 - 42.3 08/28 Specimen Type: BLOOD No comment entered. Ordering Provider: PORTER KIRBY Report Released Date/Time: Aug 28, 2024 10:23 AM Reporting Lab: [facility] [place] [facility] [address] [facility] [address] Performing Lab: [facility] [place] [facility] [address] [facility] [address] [facility] [place] [facility] CBC AND DIFF (AUTO) MONOCYTES/ 100 LEUKOCYTES IN BLOOD BY AUTOMATED COUNT 8.6 5.1 - 13.7 08/28 Specimen Type: BLOOD No comment entered. Ordering Provider: PORTER KIRBY Report Released Date/Time: Aug 28, 2024 10:23 AM Reporting Lab: [facility] [place] [facility] [address] [facility] [address] Performing Lab: [facility] [place] [facility] [address] [facility] [address] [facility] [place] [facility] CBC AND DIFF (AUTO) EOSINOPHIL S/100 LEUKOCYTES IN BLOOD BY AUTOMATED COUNT 2.8 0.4 - 6.8 08/28 Specimen Type: BLOOD No comment entered. Ordering Provider: PORTER KIRBY Report Released Date/Time: Aug 28, 2024 10:23 AM Reporting Lab: [facility] [place] [facility] [address] [facility] [address] Performing Lab: [facility] [place] [facility] [address] [facility] [address] [facility] [place] [facility] CBC AND DIFF (AUTO) BASOPHILS/ 100 LEUKOCYTES IN BLOOD BY AUTOMATED COUNT 1.1 0.1 - 2.0 08/28 Specimen Type: BLOOD No comment entered. Ordering Provider: PORTER KIRBY Report Released Date/Time: Aug 28, 2024 10:23 AM Reporting Lab: [facility] [place] [facility] [address] [facility] [address] Performing Lab: [facility] [address] [facility] [address] [facility] CBC AND DIFF (AUTO) NEUTROPHIL S [#/VOLUME] IN BLOOD BY AUTOMATED COUNT 4.20 10*3/uL 2.20 - 7.60 08/28 Specimen Type: BLOOD No comment entered. Ordering Provider: PORTER KIRBY Report Released Date/Time: Aug 28, 2024 10:23 AM Reporting Lab: [facility] [address] [facility] [address] Performing Lab: [facility] [address] [facility] [address] [facility] CBC AND DIFF (AUTO) LYMPHOCYTE S [#/VOLUME] IN BLOOD BY AUTOMATED COUNT 1.43 10*3/uL 1.00 - 3.20 08/28 Specimen Type: BLOOD No comment entered. Ordering Provider: PORTER KIRBY Report Released Date/Time: Aug 28, 2024 10:23 AM Reporting Lab: [facility] [place] [address] [address] Performing Lab: [facility] [place] [facility] [address] [facility] [address] [facility] [place] [facility] CBC AND DIFF (AUTO) EOSINOPHIL S [#/VOLUME] IN BLOOD BY AUTOMATED COUNT 0.18 10*3/uL 0.03 - 0.44 08/28 Specimen Type: BLOOD No comment entered. Ordering Provider: PORTER KIRBY Report Released Date/Time: Aug 28, 2024 10:23 AM Reporting Lab: [facility] [place] [address] [address] Performing Lab: [facility] [place] [address] [address] [facility] CBC AND DIFF (AUTO) BASOPHILS [#/VOLUME] IN BLOOD BY AUTOMATED COUNT 0.07 10*3/uL 0.01 - 0.13 08/28 Specimen Type: BLOOD No comment entered. Ordering Provider: PORTER KIRBY Report Released Date/Time: Aug 28, 2024 10:23 AM Reporting Lab: [facility] [place] [address] [address] Performing Lab: [facility] [place] [address] [address] [facility] CBC AND DIFF (AUTO) IMMATURE GRANULOCYT ES/100 LEUKOCYTES IN BLOOD BY AUTOMATED COUNT 0.6 0.0 - 0.7 08/28 Specimen Type: BLOOD No comment entered. Ordering Provider: PORTER KIRBY Report Released Date/Time: Aug 28, 2024 10:23 AM Reporting Lab: [facility] [place] [facility] [address] [facility] [address] Performing Lab: [facility] [place] [facility] [address] [facility] [address] [facility] [place] [facility] CBC AND DIFF (AUTO) IMMATURE GRANULOCYT ES [#/VOLUME] IN BLOOD 0.04 10*3/uL 0.00 - 0.06 08/28 Specimen Type: BLOOD No comment entered. Ordering Provider: PORTER KIRBY Report Released Date/Time: Aug 28, 2024 10:23 AM Reporting Lab: [facility] [place] [facility] [address] [facility] [address] Performing Lab: [facility] [facility] [address] [facility] [address] [facility] CBC AND DIFF (AUTO) NRBC % 0.0 0.0 - 0.0 08/28 Specimen Type: BLOOD No comment entered. Ordering Provider: PORTER KIRBY Report Released Date/Time: Aug 28, 2024 10:23 AM Reporting Lab: [facility] [place] [facility] [address] [facility] [address] Performing Lab: [facility] [facility] [address] [facility] [address] [facility] CBC AND DIFF (AUTO) NRBC, ABS 0.00 10*3/uL 0.00 - 0.00 08/28 Specimen Type: BLOOD No comment entered. Ordering Provider: PORTER KIRBY Report Released Date/Time: Aug 28, 2024 10:23 AM Reporting Lab: [facility] [place] [facility] [address] [facility] [address] Performing Lab: [facility] [place] [address] [address] [facility] [place] [facility] BASIC METABOLI C PANEL (non-fas ting) UREA NITROGEN [MASS/VOLU ME] IN SERUM OR PLASMA 14 mg/dL 7 - 25 08/01 Specimen Type: SERUM No comment entered. Ordering Provider: KAY,THIAGO OMRGAN C Report Released Date/Time: Jul 30, 2024 09:45 AM Reporting Lab: [facility] [address] [address] Performing Lab: [facility] [address] [facility] [address] [place] BASIC METABOLI C PANEL (non-fas ting) GLUCOSE [MASS/VOLU ME] IN SERUM OR PLASMA 218 mg/dL 65 - 100 08/01 H Specimen Type: SERUM No comment entered. Ordering Provider: THIAGO VILLANUEVA Report Released Date/Time: Jul 30, 2024 09:45 AM Reporting Lab: [address] [address] Performing Lab: [address] [address] [place] BASIC METABOLI C PANEL (non-fas ting) SODIUM [MOLES/VOL UME] IN SERUM OR PLASMA 136 mmol/L 135 - 145 08/01 Specimen Type: SERUM No comment entered. Ordering Provider: THIAGO VILLANUEVA Report Released Date/Time: Jul 30, 2024 09:45 AM Reporting Lab: [address] [address] Performing Lab: [facility] [address] [address] [place] BASIC METABOLI C PANEL (non-fas ting) POTASSIUM [MOLES/VOL UME] IN SERUM OR PLASMA 4.1 mmol/L 3.5 - 5.0 08/01 Specimen Type: SERUM No comment entered. Ordering Provider: THIAGO VILLANUEVA Report Released Date/Time: Jul 30, 2024 09:45 AM Reporting Lab: [facility] [address] [address] Performing Lab: [facility] [address] [address] [place] BASIC METABOLI C PANEL (non-fas ting) CHLORIDE [MOLES/VOL UME] IN SERUM OR PLASMA 101 mmol/L 100 - 110 08/01 Specimen Type: SERUM No comment entered. Ordering Provider: THIAGO VILLANUEVA Report Released Date/Time: Jul 30, 2024 09:45 AM Reporting Lab: [facility] [address] [address] Performing Lab: [facility] [address] [address] [place] BASIC METABOLI C PANEL (non-fas ting) CARBON DIOXIDE, TOTAL [MOLES/VOL UME] IN SERUM OR PLASMA 26 meq/L 20 - 30 08/01 Specimen Type: SERUM No comment entered. Ordering Provider: THIAGO VLILANUEVA Report Released Date/Time: Jul 30, 2024 09:45 AM Reporting Lab: [facility] [address] [address] Performing Lab: [facility] [address] [address] [place] BASIC METABOLI C PANEL (non-fas ting) CREATININE [MASS/VOLU ME] IN SERUM OR PLASMA 0.77 mg/dL 0.50 - 1.40 08/01 Specimen Type: SERUM No comment entered. Ordering Provider: THIAGO VILLANUEVA Report Released Date/Time: Jul 30, 2024 09:45 AM Reporting Lab: [facility] [address] [address] Performing Lab: [facility] [address] [place] BASIC METABOLI C PANEL (non-fas ting) GLOMERULAR FILTRATION RATE/1.73 SQ M.PREDICTE D [VOLUME RATE/AREA] IN SERUM, PLASMA OR BLOOD BY CREATININE -BASED FORMULA (CKD-EPI 2020) 88 mL/min 60 08/01 Specimen Type: SERUM No comment entered. Ordering Provider: THIAGO VILLANUEVA Report Released Date/Time: Jul 30, 2024 09:45 AM Reporting Lab: [facility] [address] [address] Performing Lab: [facility] [address] [address] [facility] LIVER FUNCTION PROTEIN [MASS/VOLU ME] IN SERUM OR PLASMA 7.2 g/dL 6.0 - 8.3 08/01 Specimen Type: SERUM No comment entered. Ordering Provider: THIAGO VILLANUEVA Report Released Date/Time: Jul 30, 2024 09:45 AM Reporting Lab: [facility] [address] Performing Lab: [facility] [address] [facility] LIVER FUNCTION ALBUMIN [MASS/VOLU ME] IN SERUM OR PLASMA 3.9 g/dL 3.5 - 5.0 08/01 Specimen Type: SERUM No comment entered. Ordering Provider: THIAGO VILLANUEVA Report Released Date/Time: Jul 30, 2024 09:45 AM Reporting Lab: [facility] [address] [address] Performing Lab: [facility] [address] [facility] LIVER FUNCTION ALKALINE PHOSPHATAS E [ENZYMATIC ACTIVITY/V OLUME] IN SERUM OR PLASMA 78 U/L 40 - 150 08/01 Specimen Type: SERUM No comment entered. Ordering Provider: THIAGO VILLANUEVA Report Released Date/Time: Jul 30, 2024 09:45 AM Reporting Lab: [facility] [address] [address] Performing Lab: [facility] [address] [facility] LIVER FUNCTION ASPARTATE AMINOTRANS FERASE [ENZYMATIC ACTIVITY/V OLUME] IN SERUM OR PLASMA 16 U/L 5 - 34 08/01 Specimen Type: SERUM No comment entered. Ordering Provider: THIAGO VILLANUEVA Report Released Date/Time: Jul 30, 2024 09:45 AM Reporting Lab: [facility] [address] [address] Performing Lab: [facility] [address] [facility] SYSTEMSinmobly LIVER FUNCTION ALANINE AMINOTRANS FERASE [ENZYMATIC ACTIVITY/V OLUME] IN SERUM OR PLASMA 18 U/L 08/01 Specimen Type: SERUM No comment entered. Ordering Provider: THIAGO VILLANUEVA Report Released Date/Time: Jul 30, 2024 09:45 AM Reporting Lab: [address] [address] Performing Lab: [place] [phone] [facility] LIVER FUNCTION BILIRUBIN. TOTAL [MASS/VOLU ME] IN SERUM OR PLASMA 0.8 mg/dL 0.2 - 1.2 08/01 Specimen Type: SERUM No comment entered. Ordering Provider: THIAGO VILLANUEVA Report Released Date/Time: Jul 30, 2024 09:45 AM Reporting Lab: [address] [address] Performing Lab: [address] [address] [facility] HEMOGLOB IN A1C PANEL HEMOGLOBIN A1C/HEMOGL OBIN.TOTAL IN BLOOD BY HPLC 8.1 4.0 - [...] Jul 30, 2024 09:45 AM Reporting Lab: [address] [address] Performing Lab: [address] [address] [facility] LIPID PANEL, NON FASTING CHOLESTERO L [MASS/VOLU ME] IN SERUM OR PLASMA 155 mg/dL 08/01 Specimen Type: SERUM No comment entered. Ordering Provider: THIAGO VILLANUEVA Report Released Date/Time: Jul 30, 2024 09:45 AM Reporting Lab: [facility] [address] [address] Performing Lab: [facility]N [address] [address] [place] LIPID PANEL, NON FASTING TRIGLYCERI DE [MASS/VOLU ME] IN SERUM OR PLASMA 78 mg/dL 0 - 150 08/01 Specimen Type: SERUM No comment entered. Ordering Provider: THIAGO VILLANUEVA Report Released Date/Time: Jul 30, 2024 09:45 AM Reporting Lab: [facility] [address] [address] Performing Lab: [facility] [address] [address] [place] LIPID PANEL, NON FASTING CHOLESTERO L IN LDL [MASS/VOLU ME] IN SERUM OR PLASMA BY CALCULAKALEE N 85 mg/dL 0 - 129 08/01 Specimen Type: SERUM No comment entered. Ordering Provider: THIAGO VILLANUEVA Report Released Date/Time: Jul 30, 2024 09:45 AM Reporting Lab: [facility] [address] [address] Performing Lab: [facility] [address] [address] [place] LIPID PANEL, NON FASTING CHOLESTERO L.TOTAL/CH OLESTEROL IN HDL [MASS RATIO] IN SERUM OR PLASMA 2.9 08/01 Specimen Type: SERUM No comment entered. Ordering Provider: THIAGO VILLANUEVA Report Released Date/Time: Jul 30, 2024 09:45 AM Reporting Lab: [facility] [address] [address] Performing Lab: [facility]ITALN [facility] [address] [place] LIPID PANEL, NON FASTING CHOLESTERO L IN HDL [MASS/VOLU ME] IN SERUM OR PLASMA 54 mg/dL 40 - 60 08/01 Specimen Type: SERUM No comment entered. Ordering Provider: THIAGO VILLANUEVA Report Released Date/Time: Jul 30, 2024 09:45 AM Reporting Lab: [facility] [address] [address] Performing Lab: [facility]N [facility] [address] [place] HEMOGLOB IN A1C PANEL HEMOGLOBIN A1C/HEMOGL OBIN.TOTAL IN BLOOD BY HPLC 6.8 4.0 - [...] Feb 13, 2024 02:36 PM Reporting Lab: [facility] [address] Performing Lab: [facility] [address] [facility] Vital Signs Combined list of inpatient and outpatient Vital Signs from Department of Defense and Veterans Affairs, ranging from 12 months to all on record, depending upon the facility. Vital Sign Value Date Comments Source SYSTOLIC BLOOD PRESSURE 138 09/26/19 25 12:36:49 [facility] DIASTOLIC BLOOD PRESSURE 75 025 12:36:49 [facility] PULSE OXIMETRY 96 09/26/2024 12:36:49 [facility] WEIGHT 140 09/26/2024 12:36:49 [facility] BMI 27 kg/m2 09/26/2024 12:36:49 [facility] PULSE 72 09/26/2024 12:36:49 [facility] WEIGHT 140.4 09/18/2024 11:04:28 [facility] [place] [facility] BMI 27 kg/m2 09/18/2024 11:04:28 [facility] SYSTOLIC BLOOD PRESSURE 162 08/28/19 25 10:06:36 [facility] [place] [facility] DIASTOLIC BLOOD PRESSURE 76 025 10:06:36 [facility] [place] [facility] PULSE OXIMETRY 100 08/28/2024 10:06:36 [facility] WEIGHT 140 08/28/2024 10:06:36 [facility] [facility] BMI 27 kg/m2 08/28/2024 10:06:36 [facility] [place] [facility] TEMPERATURE 97.6 08/28/2024 10:06:36 [facility] [place] [facility] PULSE 73 08/28/2024 10:06:36 [facility] [facility] RESPIRATION 18 08/28/2024 10:06:36 [facility] WEIGHT 135.4 06/19/2024 10:58:03 [facility] BMI 26 kg/m2 06/19/2024 10:58:03 [facility] [place] [facility] SYSTOLIC BLOOD PRESSURE 156 05/14/20 11:39:51 [facility] DIASTOLIC BLOOD PRESSURE 74 024 11:39:51 [facility] PULSE OXIMETRY 98 05/14/2024 11:39:51 [facility] WEIGHT 130 05/14/2024 11:39:51 [facility] BMI 25 kg/m2 05/14/2024 11:39:51 [facility] HEIGHT 60.3 05/14/2024 11:39:51 [facility] TEMPERATURE 97.7 05/14/2024 11:39:51 [facility] PULSE 76 05/14/2024 11:39:51 [facility] RESPIRATION 19 05/14/2024 11:39:51 [facility] Encounters Combined list of: 1) Encounters from Department of Veterans Affairs facilities going backup to the last 18 months, not all [place] inpatient encounters are included; 2) Encounters from the Department of Defense facilities going backup to 280 months. Location Location Details Encounter Type Encounter Number Reason For Visit Attending Provider ADM Date DC Date Status Disposition Source [facility] [place] Outpatient Encounter [id number] 05/03 [facility] En[facility] [id number] 05/09 [facility] [place] Encounter [id number] 05/11 [facility] OFFICE O/P EST MOD 30-39 MIN [id number] Diagnos is: ICD-10- CM F32.9 Major depress deandra disorde r, single episode , unspeci fied MANUEL COLINDRES SSICA E 05/16 [facility] Encounter [id number] 05/23 [facility] [place] OFF/[place] CONSLTJ NEW/[place] 55 [id number] Diagnos is: ICD-10- CM 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 KUPFERSCHM ID,JOSE B 05/24 [facility] En[facility] [id number] 06/06 [facility] [place] En[facility] [id number] 06/14 [facility] [place] OFF[facility] O/P EST MOD 30-39 MIN [id number] Diagnos is: ICD-10- CM 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 KUPFERSCHM ID,JOSE B 06/15 [facility] OFFICE O/P EST MOD 30-39 MIN [id number] Diagnos is: ICD-10- CM F33.9 Major depress deandra disorde r, recurre nt, unspeci MANUEL Morales SSICA E 07/04 [facility] [place] [facility] [place] [facility] Outpatient Encounter [id number] 07/06 [facility] [place] [facility] QNHP OL DIG ASSMT&MGMT 5-10 [id number] Diagnos is: ICD-10- CM Z04.89 Encount er for examina tion and observa tion for oth reasons KEL PATEL IE 07/12 [place] [facility] OFF/OP EST DECEMBER X REQ PHY/QHP [id number] Diagnos is: ICD-10- CM Z71.9 Chairman Emeritus ing, unspeci Ascencion Blount H 08/01 [facility] [place] [facility] [place] [facility] Outpatient Encounter [id number] 08/02 [facility] [place] [facility] [place] [facility] Outpatient Encounter [id number] 08/08 [facility] [place] [facility] [place] [facility] Outpatient Encounter [id number] 08/09 [facility] [place] [facility] COLLJ & INTERPJ DATA EA 30 D [id number] Diagnos is: ICD-10- CM G47.30 Sleep apnea, unspeci MARY Beltrán 08/09 [place] [facility] [place] [facility] OFFICE O/P EST MOD 30-39 MIN [id number] Diagnos is: ICD-10- CM 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 KUPFERSCHM ID,JOSE B 08/10 [facility] [place] [facility] (6[facility]GE) QNHP OL DIG ASSMT&MGMT 5-10 [id number] Diagnos is: ICD-10- CM Z04.89 Encount er for examina tion and observa tion for oth reasons ALEXISMIESHA ZABALA N 08/15 [facility] (6[facility]GE[facility] [place] [facility] Outpatient Encounter [id number] 08/15 [facility] [place] [facility] [place] [facility] Outpatient Encounter [id number] 08/22 [facility] [place] [facility] (6[facility]GE) QNHP OL DIG ASSMT&MGMT 5-10 [id number] Diagnos is: ICD-10- CM Z04.89 Encount er for examina tion and observa tion for oth reasons ALFIECHERYLEDENISSE 08/22 [facility] (6[facility]GE[facility] [place] [facility] Outpatient Encounter [id number] 08/24 [facility] [place] [facility] [place] [facility] OFFICE O/P EST MOD 30 MIN [id number] Diagnos is: ICD-10- CM 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 HIRO Castillo 09/05 [facility] [place] [facility] [place] [facility] Outpatient Encounter [id number] 09/05 [facility] [place] [facility] [place] [facility] Outpatient Encounter [id number] 09/11 [facility] En[facility] [id number] 09/11 [facility] OFF[facility] O/P EST MOD 30 MIN [id number] Diagnos is: ICD-10- CM F33.9 Major depress daendra disorde r, recurre nt, unspeci fiелена COLINDRES,JE SSICA E 09/12 [facility] En[facility] [id number] 09/13 [facility] QNHP OL DIG ASSMT&MGMT 11-20 [id number] Diagnos is: ICD-10- CM G47.30 Sleep apnea, unspeci fiелена SHIRA ROQUE 09/15 [facility] QNHP OL DIG ASSMT&MGMT 11-20 [id number] Diagnos is: ICD-10- CM Z04.89 Encount er for examina tion and observa tion for oth reasons CANDELARIO OSEGUERA 09/18 [facility] En[facility] [id number] 09/19 [facility] En[facility] [id number] 09/19 [facility] En[facility] [id number] 09/25 [facility] [place] OFFICE O/P EST MOD 30 MIN [id number] Diagnos is: ICD-10- CM 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 VINI VILLANUEVA C 09/25 [place] [facility] En[facility] [id number] 09/25 [facility] En[facility] [id number] 09/25 [facility] En[facility] [id number] 09/26 [facility] En[facility] [id number] VINI VILLANUEVA C 09/26 [facility] En[facility] [id number] 09/26 [facility] En[facility] [id number] 09/27 [facility] Out[facility] Encounter [id number] Diagnos is: ICD-10- CM R53.83 Other fatigue CURIOSO-UY ,SAHRA 09/27 [facility] En[facility] [id number] 09/27 [facility] [id number] 10/04 [facility] [id number] 10/16 [facility] [id number] [facility] [id number] ALEYDA BROOKE 10/26 [facility] Encounter [id number] 11/02 [facility] OFFICE O/P EST MOD 30 MIN [id number] Diagnos is: ICD-10- CM 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 KUPFERSCHM ID,JOSE B 11/05 [facility] [id number] 11/09 [facility] En[facility] [id number] 11/16 [facility] QNHP OL DIG ASSMT&MGMT 5-10 [id number] Diagnos is: ICD-10- CM Z04.89 Encount er for examina tion and observa tion for oth reasons GIA MURGUIA 11/21 [facility] POS AIRWAY PRESSURE FILTER [id number] Diagnos is: ICD-10- CM G47.30 Sleep apnea, unspeci fied ST BETI BECKER E P 12/06 [facility] Encounter [id number] VINI VILLANUEVA C 12/11 [facility] OFFICE O/P EST MOD 30 MIN [id number] Diagnos is: ICD-10- CM F33.9 Major depress deandra disorde r, recurre nt, unspeci fied MANUEL COLINDRESCA E 12/20 [facility] En[facility] [id number] 12/20 [facility] Encounter [id number] 12/24 [facility] [place] OFF[facility] O/P EST MOD 30 MIN [id number] Diagnos is: ICD-10- CM G89.4 Chronic pain syndrom e VINI VILLANUEVAA C 12/24 [place] [facility] Encounter [id number] 12/24 [facility] [id number] 01/03 [facility] [id number] 01/08 [facility]counter [id number] 01/31 [facility] Outpatient Encounter [id number] 02/01 [facility] Encounter [id number] 02/04 [facility] OFFICE O/P EST HI 40 MIN [id number] Diagnos is: ICD-10- CM G89.4 Chronic pain syndrom e KUPFERSCHM ID,JOSE B 02/04 [facility] Out[facility] Encounter [id number] 02/04 [facility] Out[facility] Encounter [id number] 02/04 [facility] Out[facility] Encounter [id number] 02/07 [facility] Out[facility] Encounter [id number] 02/08 [facility] [place] OFFICE O/P EST MOD 30 MIN [id number] [id number] Diagnos is: ICD-10- CM E11.9 Type 2 diabete s mellitu s without complic ations VINI VILLANUEVA 02/12 [place] [facility] Out[facility] Encounter [id number] 02/12 [facility] OFFICE O/P EST MOD 30 MIN [id number] Diagnos is: ICD-10- CM F33.9 Major depress deandra disorde r, recurre nt, unspeci fiMANUEL RaeCA E 02/14 [facility] Encounter [id number] 02/14 [facility] Encounter [id number] 02/15 [facility] Out[facility] Encounter [id number] 02/18 [facility] Out[facility] Encounter [id number] 03/01 [facility] Out[facility] Encounter [id number] 03/07 [facility] OFFICE O/P EST MOD 30 MIN [id number] Diagnos is: ICD-10- CM F33.9 Major depress deandra disorde r, recurre nt, unspeci fied MANUEL COLINDRES SSICA E 03/07 [facility] Out[facility] Encounter [id number]/08 [facility] Out[facility] Encounter [id number] 03/11 [facility] Q[facility]P OL DIG ASSMT&MGMT 5-10 [id number] [id number] Diagnos is: ICD-10- CM Z04.89 Encount er for examina tion and observa tion for oth reasons CANDELARIO OSEGUERA 03/11 [facility] [place] OFFICE O/P EST MOD 30 MIN [id number] [id number] Diagnos is: ICD-10- CM I10 Essenti al (primar y) hyperte nsion VINI VILLANUEVAA C 03/11 [place] [facility] Out[facility] Encounter [id number] 03/11 [facility] [place] Outpatient Encounter [id number] [id number] 03/12 [place] [facility] Out[facility] Encounter [id number] 03/12 [facility] Out[facility] Encounter [id number] 03/25 [facility] Out[facility] Encounter [id number] 03/27 [facility] OFFICE O/P EST MOD 30 MIN [id number] Diagnos is: ICD-10- CM F33.9 Major depress deandra disorde r, recurre nt, unspeci MANUEL Morales SSICA E 04/04 [facility] Out[facility] Encounter [id number] 04/05 [facility] OFFICE O/P EST MOD 30 MIN [id number] Diagnos is: ICD-10- CM G89.4 Chronic pain syndrom e KUPFERSCHM ID,JOSE B 04/08 [facility] Out[facility] Encounter [id number] 04/10 [facility] Out[facility] Encounter [id number] 04/12 [facility] Out[facility] Encounter [id number] 04/16 [facility] Out[facility] Encounter [id number] 1.04/16 [facility] Out[facility] Encounter [id number] 04/18 [facility] Out[facility] Encounter [id number] [facility] Outpatient Encounter [id number] 04/19 [facility] Out[facility] Encounter [id number] 1.04/23 [facility] Outpatient Encounter [id number] ZACHARY ABBOTT 04/24 [facility] [place] MTMS BY PHARM ADDL 15 MIN [id number] [id number] Diagnos is: ICD-10- CM E11.9 Type 2 diabete s mellitu s without complic ations HITESH KNUTSON A 04/26 [place] [facility] OFFICE O/P EST LOW 20 MIN [id number] 1. Diagnos is: ICD-10- CM F33.9 Major depress deandra disorde r, recurre nt, unspeci fied MANUEL COLINDRES E 04/30 [facility] [place] [id number] Diagnos is: ICD-10- CM R63.4 Abnorma l weight loss BRAYAN ARAGON P 05/01 [place] OFFICE O/P EST MOD 30 MIN 31856-3.63 1BY. 95 Diagnos is: ICD-10- CM I25.10 Athscl heart disease of [place]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 w/o ang pctrs [facility] [place] [facility] ADMN SARSCOV2 VACC 1 DOSE [id number] [facility] Outpatient Encounter [id number] JACOBYKAYLA YS 05/20 [facility] HEARING AID FITTING/CH ECKING [id number] 1. Diagnos is: ICD-10- CM H90.3 Sensori neural hearing loss, bilater al SENIOR,RUTH OLE L 05/31 [facility] COMPRE OPH EXAM NEW PT 1/> [id number] Diagnos is: ICD-10- CM E11.9 Type 2 diabete s mellitu s without complic ations BARBARA ARTEAGA 05/31 [facility] FIT SPECTACLES BIFOCAL [id number] [id number] Diagnos is: ICD-10- CM Z46.0 Encount er for fit/adj st of spectac les and contact lenses BARBARA ARTEAGA 05/31 [facility] [place] OFFICE O/P NEW LOW 30 MIN [id number] [id number] Diagnos is: ICD-10- CM L60.0 Ingrowi ng nail ROSS,CHARL ES F 06/10 [place] [facility] OFFICE O/P EST MOD 30 MIN [id number] Diagnos is: ICD-10- CM F33.9 Major depress deandra disorde r, recurre nt, unspeci fied BERNADINE,MANUEL SSICA E 06/11 [facility] Outpatient Encounter [id number] 06/13 [facility] MED NUTRITION INDIV SUBSEQ [id number] Diagnos is: ICD-10- CM R63.4 Abnorma l weight loss BRAYAN ARAGON P 06/19 [place] [facility] EXTENDED VISUAL FIELD XM [id number] [id number] Diagnos is: ICD-10- CM 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, right eye, mild stage OSHINSKIEBARBARA J 06/21 [facility] CMPTR OPHTH IMG OPTIC NERVE [id number] [id number] Diagnos is: ICD-10- CM 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, right eye, mild stage OSHINSKIEBARBARA J 06/21 [facility] COMPRE OPH EXAM EST PT 1/ [id number] [id number] Diagnos is: ICD-10- CM H40.141 2 Capslr glaucom a w/pseud xf lens, right eye, moderat e stage OSHINSKIEBARBARA J 06/21 [facility] Outpatient Encounter [id number] 06/26 [facility] [place] QNHP OL DIG ASSMT&MGMT 5-10 [id number] [id number] Diagnos is: ICD-10- CM J44.9 Chronic obstruc tive pulmona ry disease , unspeci fied JORGE,KEL IE 06/28 [place] [facility] HEARING SERVICE [id number] [id number] Diagnos is: ICD-10- CM Z46.1 Encount er for fitting and adjustm ent of hearing aid Dannie MULLEN 07/05 [facility] Outpatient Encounter [id number] 1.07/29 [facility] OFFICE O/P EST HI 40 MIN [id number] 1. Diagnos is: ICD-10- CM F33.9 Major depress deandra disorde r, recurre nt, unspeci fied BERNADINEJE SSICA E 07/30 [facility] Outpatient Encounter [id number] 1.07/31 [facility] Outpatient Encounter [id number] 1.08/02 [facility] OFFICE O/P EST LOW 20 MIN [id number] Diagnos is: ICD-10- CM G89.4 Chronic pain syndrom e KUPFERSCHM ID,JOSE B 08/05 [facility] Outpatient Encounter [id number] 08/07 [facility] OFF/OP EST MAY X REQ PHY/QHP [id number] [id number] Diagnos is: ICD-10- CM 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 Jason Burciaga 08/28 [facility] OFFICE O/P [place] HI 40 MIN [id number] Diagnos is: ICD-10- CM R19.7 Diarrhe a, unspeci fiÁNGEL Cunningham LylyBalwinder CHEATHAMMICHELLE 08/28 [facility] MTMS BY PHARM ADDL 15 MIN [id number] [id number] Diagnos is: ICD-10- CM E11.9 Type 2 diabete s mellitu s without complic ations HITESH KNUTSON 09/06 [facility] MED NUTRITION INDIV SUBSEQ [id number] [id number] Diagnos is: ICD-10- CM R63.4 Abnorma l weight loss BRAYAN ARAGON P 09/18 [facility] (631GE) NQHP OL DIG ASSMT&MGMT 5-10 [id number] [id number] Diagnos is: ICD-10- CM R63.4 Abnorma l weight loss MIESHA ALEXIS N 09/23 [facility] (631GE) [facility] OFFICE O/P [place] HI 40 MIN [id number] [id number] Diagnos is: ICD-10- CM I25.10 Athscl heart disease of [place]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 w/o ang pctVINI Case 09/26 [facility] IE [facility] SYNCH AUDIO-VIDE O EST MOD 30 [id number] Diagnos is: ICD-10- CM F33.9 Major depress deandra disorde r, recurre nt, unspeci fiMANUEL Rae E 10/08 [facility] NQHP OL DIG ASSMT&MGMT 5-10 [id number] Diagnos is: ICD-10- CM F33.9 Major depress deandra disorde r, recurre nt, unspeci fiMIGUELANGEL Mejia S 10/14 [facility] MTMS BY PHARM ADDL 15 MIN [id number] [id number] Diagnos is: ICD-10- CM E11.9 Type 2 diabete s mellitu s without complic ations HITESH KNUTSON A 10[facility] W/DOPPLER COMPLETE [id number] [id number] Diagnos is: ICD-10- CM I35.0 Nonrheu matic aortic (valve) stenosi s EILEEN OLSON 10/15 [place] [facility] LOW 20 MIN [id number] [id number] Diagnos is: ICD-10- CM I35.0 Nonrheu matic aortic (valve) stenosi s MEGAN KELLEY 10/15 [place] [facility] Outpatient Encounter [id number] 10/18 [facility] [place] [place] Outpatient Encounter [id number] 10/21 [facility] OFFICE O/P EST LOW 20 MIN [id number] [id number] Diagnos is: ICD-10- CM L60.0 Ingrowi ng FREEMAN Lynch 10/21 [place] [facility] [facility] Outpatient Encounter [id number] [facility] Social History Combined list of available smoking, tobacco, and other social history from Department of Defense and Veterans Affairs facilities. Social History Type Response Date Comment Source Tobacco smoking status [facility]-TOBACCO NEVER USED 12/25/2023 [facility] [place] [facility] History of tobacco use [facility]-TOBACCO USER EVERY DAY 12/25/2023 [facility] History [facility] tobacco use [facility]-TOBACCO USER EVERY DAY 12/13/2022 [facility] [place] [facility] 11[facility]17/2021 [facility] [place] [facility] History of tobacco use V1-PT NOT INTERESTED IN QUIT TOBACCO USE 10/14/2013 [facility] [place] [facility] History of tobacco use CURRENT SMOKER 05/07/2013 [facility] [facility] History of tobacco use V1-PT DECLINES TOBACCO CESSATION MEDS 12[facility]03/2012 [facility] [place] [facility] History of tobacco use CURRENT SMOKER 06/05/2012 1/2ppd [facility] [place] [facility] History of tobacco use V1-PT DECLINES TOBACCO CESSATION MEDS 11/25/2011 [facility] [place] [facility] History of tobacco use CURRENT SMOKER 05/06/2011 [facility] [place] [facility] History of tobacco use V1-PT DECLINES TOBACCO CESSATION MEDS 09/24/2010 [facility] [place] [facility] History of tobacco use CURRENT SMOKER 03/22/2010 1/2 ppd [place] [facility] [place] [facility] History of tobacco use QUIT TOBACCO USE IN PAST YEAR 02/25/2009 [facility] [place] [facility] History of tobacco use CURRENT SMOKER 08/26/2008 1/2 ppd [facility] [place] [facility] History of tobacco use V1-PT DECLINES TOBACCO CESSATION MEDS 12/19/2007 [facility] [place] [facility] History of tobacco use CURRENT SMOKER 09/11/2007 [facility] [place] [facility] History [facility] tobacco use CURRENT SMOKER 04/05/2007 [facility] History of tobacco use V1-PT DECLINES TOBACCO CESSATION MEDS 02/13/[facility] History of tobacco use QUIT TOBACCO USE IN PAST YEAR 10/02/2006 3 months ago [facility] History [facility] tobacco use QUIT TOBACCO USE IN PAST YEAR 08/19/2005 [facility] History [facility] tobacco use CURRENT SMOKER 09/21/2004 [facility] History of tobacco use CURRENT SMOKER 09/07/2004 [facility] History of tobacco use CURRENT SMOKER 09/15/2003 smokes one pk day [facility] History of tobacco use CURRENT SMOKER 07/23/2003 [facility] Plan of Care List of future care activities from Department [facility] facilities. Additional future care activities may be listed in the Assessment and Plan section. Date/Time Care Activity Care Activity Detail Facili ty 10/30/2024 AMBULATORY - MEDICINE AM[facility] 11/11/2024 AMBULATORY - MEDICINE AMBULATORY [facility] 11/12/2024 AMBULATORY - PSYCHIATRY AMBULATORY - PSYC HIATRY [facility] 11/29/2024 [facility] 01[facility]24/2025 AMBULATORY - MEDICINE AMBULATORY - MEDICI [facility] 10/18/2024 Consult Order [facility]ITY [facility]-C ARDIOLOGY Cons Guest Attendant's Choice [facility] 11/11/2024 Laboratory - Department Store Door Greeter ry Order HEMOGLOBIN A1C PANEL BLOOD (LAV-BLOOD) [facility] 11/11/2024 Laboratory - Department Store Door Greeter ry Order TSH BLOOD (SST-SERUM) [facility] 11/11/2024 Laboratory - Department Store Door Greeter ry Order MICROALBUMIN CREATININE RATIO PANEL URINE (RANDOM) [facility] 11/11/2024 Laboratory - Department Store Door Greeter ry Order VITAMIN D (25-OH) BLOOD (SST-SERUM) SP ONCE [facility] 11/11/2024 Laboratory - Department Store Door Greeter ry Order CBC BLOOD (LAV-BLOOD) [facility] 11/11/2024 Laboratory - Department Store Door Greeter ry Order BASIC METABOLIC PANEL (non-fasting) BLOOD (SST-SERUM) [facility] 11/11/2024 Laboratory - Department Store Door Greeter ry Order LIVER FUNCTION BLOOD (SST-SERUM) [facility] 11/11/2024 Laboratory - Department Store Door Greeter ry Order LIPID PANEL, NON FASTING BLOOD (SST-SERUM) [facility] Advance Directives List of completed, amended, or rescinded Advance Directives on record at [facility] facilities. An actual copy of the Directive is not included. Date Advance Directive Provider Source 04/10/2023 ADVANCE DIRECTIVE ESSIE STARK [place] [facility] 04/19/2007 ADVANCE DIRECTIVE VICTORIA JOHNSON [facility]
--- OUTSIDE RECORDS SUMMARY | 2024-10-30 10:01 | XMS_ITS | Encounter Summary ---
Author Name [facility] [place] [facility] [place] [facility] [facility] [place] Address [address] [place] [address] Care Team Providers Care Drip Box Tender Name Role Phone TRACY VILLANUEVA Primary Care [...] PHI MEDEX BRONZ E December 19, 2013 [id number] GUSTAVO ARAMBULA SR PATIENT [employer] MEDICARE SUPPLEMEN PHI MEDIC ARE SUPPL EMENT Jul 21, 2007 NONE [id number] Edgar ARAMBULA PATIENT [place] SUPPLEMEN PHI MEDEX BRONZ E December 19, 2013 [id number] [phone] GUSTAVO ARAMBULA SR PATIENT [place] OF [place] ([place]) MEDICARE SUPPLEMEN PHI MEDEX BRONZ E December 19, 2013 [id number] Edgar ARAMBULA [place] PAT[place]ICARE ([place]) MEDICARE (M) PART A Oct 19, 2004 PART A [id number] Edgar ARAMBULA [place] PAT[place]IC[place] ([place]) MEDICARE (M) PART B Oct 19, 2004 PART B [id number] Edgar ARAMBULA [place] PAT[place]IC[place] ([place]) MEDICARE (M) PART A Oct 19, 2004 PART A [id number] Edgar ARAMBULA [place] PAT[place] MEDIC[place] ([place]) MEDICARE (M) PART B Oct 19, 2004 PART B [id number] [phone] Edgar ARAMBULA [place] PAT[place] MEDIC[place] ([place]) MEDICARE (M) PART B Oct 19, 2004 PART B [id number] Edgar ARAMBULA [place] PAT[place] MEDICARE ([place]) MEDICARE () PART A Oct 19, 2004 PART A [id number] [phone] Edgar ARAMBULA [place] PAT[place] MEDICARE ([place]) MEDICARE () PART A Oct 19, 2004 PART A [id number] [phone] Edgar ARAMBULA [place] PAT[place] MEDICARE ([place]) MEDICARE () PART B Oct 19, 2004 PART B [id number] FILEMONEEdgar [place] PATIENT MEDICARE ([place]) MEDICARE () PART A Oct 19, 2004 PART A [id number] [phone] Edgar ARAMBULA [place] PAT[place] MEDIC[place] ([place]) MEDICARE (M) PART B Oct 19, 2004 PART B [id number] [phone] Edgar ARAMBULAN PATIENT Selected Encounter This section includes the information on record at [place] for the Encounter. Date/Time Encounter Type Encounter Description Reason Provider Source Mar 07, 2024 09:00 AM OFFICE O/P EST MOD 30 [facility] - IND ICD-10-CM F33.9 Major depressive disorder, recurrent, unspecified JOSEY COLINDRES Encounter Template Text not used by [place] Assessments - Encounter Diagnoses This section includes the primary and secondary diagnoses documented for the Encounter. Date/Time Primary/Secondary Diagnosis Diagnosis Name Provider Source Mar 12, 2024 02:12 PM PRIMARY Major depressive disorder, recurrent, unspecified JOSEY COLINDRES [place] [facility] [place] [facility] Mar 12, 2024 02:12 PM SECONDARY Other insomnia JOSEY COLINDRES [place] [facility] [place] [facility] Plan of Treatment: Future Appointments (+ 6 months) and Future Tests (+/- 45 days) The Plan of Treatment section includes future care activities for the patient from all [place] treatmentfacilities. This section includes future appointments and [...] 2024 09:00 AM AMBULATORY - MEDICINE [facility] Apr 04, 2024 11:00 AM AMBULATORY [...] [facility]TR[facility] [place] [facility] Jun 21, 2024 09:00 AM AMBULATORY - MEDICINE [facility] [place] [facility] Jun 21, 2024 09:15 AM AMBULATORY - MEDICINE [facility] [place] [facility] Jun 21, 2024 09:30 AM AMBULATORY - MEDICINE [facility] [place] [facility] Jun 26, 2024 08:00 AM AMBULATORY - MEDICINE [facility] [place] [facility] Jul 05, 2024 09:00 AM [...] AM VA-TOBACCO NEVER USED [place] [facility] Tobacco Use History This [...] 30 MIN WAKEUP [place] [facility] [place] [facility] Dec 13, 2022 03:00 PM VA-TOBACCO USE 30 YEARS OR MORE [facility] [place] [facility] Dec 13, 2022 03:00 PM VA-TOBACCO USE ADVICE [place] [facility] [place] [facility] Dec 13, 2022 03:00 PM 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 [facility] [place] [facility] Dec 13, 2022 03:00 PM VA-TOBACCO USE MED NO [facility] [place] [facility] Dec 13, 2022 03:00 PM VA-TOBACCO USER EVERY DAY [facility] [place] [facility] Nov 17, 2021 10:00 AM VA-TOBACCO USE 30 YEARS OR MORE [facility] Nov 17, 2021 10:00 AM VA-TOBACCO USE ADVICE [facility] Nov 17, 2021 10:00 AM 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 [facility] Nov 17, 2021 10:00 AM VA-TOBACCO USE MED NO [facility] Nov 17, 2021 10:00 AM VA-TOBACCO USE WI 30 MIN OF WAKEUP [facility] Nov 17, 2021 10:00 AM VA-TOBACCO USER EVERY DAY [facility] Oct 14, 2013 12:55 PM V1-PT NOT INTERESTED IN QUIT TOBACCO USE [facility] May 07, 2013 05:04 PM CURRENT SMOKER trying to stop [facility] May 07, 2013 05:04 PM V1-PT DECLINES REF TO TOBACCO CESS PRGM [facility] May 07, 2013 05:04 PM V1-PT DECLINES TOBACCO CESSATION MEDS [facility] May 07, 2013 05:04 PM V1-PT READY TO QUIT TOBACCO USE [facility] Dec 03, 2012 08:23 AM V1-PT DECLINES REF TO TOBACCO CESS PRGM [facility] Dec 03, 2012 08:23 AM V1-PT DECLINES TOBACCO CESSATION MEDS [facility] Dec 03, 2012 08:23 AM V1-PT THINKING ABOUT QUIT TOBACCO USE [facility] Jun 05, 2012 08:45 AM CURRENT SMOKER 1/2ppd [place] [facility] [facility] Jun 05, 2012 08:45 AM V1-PT DECLINES REF TO TOBACCO CESS PRGM [place] [facility] [facility] Jun 05, 2012 08:45 AM V1-PT THINKING ABOUT QUIT TOBACCO USE [facility] Jun 05, 2012 08:45 AM V1-TOBACCO CESS MEDS NOT PRESCRIBED Vet wants to talk to his provider-He is nervous about taking meds to quit- but he is interested in quitting [facility] [place] [facility] Nov 25, 2011 09:14 AM V1-PT DECLINES REF TO TOBACCO CESS PRGM [facility] Nov 25, 2011 09:14 AM V1-PT DECLINES TOBACCO CESSATION MEDS [facility] Nov 25, 2011 09:14 AM V1-PT THINKING ABOUT QUIT TOBACCO USE [facility] [place] [facility] May 06, 2011 01:02 PM CURRENT SMOKER [facility] [place] [facility] May 06, 2011 01:02 PM V1-PT DECLINES TOBACCO CESSATION MEDS [facility] May 06, 2011 01:02 PM V1-PT NOT INTERESTED IN QUIT TOBACCO USE [facility] Sep 24, 2010 08:51 AM V1-PT DECLINES TOBACCO CESSATION MEDS [facility] Sep 24, 2010 08:51 AM V1-PT THINKING ABOUT QUIT TOBACCO USE [facility] [place] [facility] Mar 22, 2010 07:58 AM CURRENT SMOKER 1/2 ppd [facility] [place] [facility] Feb 25, 2009 12:05 PM QUIT TOBACCO USE IN PAST YEAR [facility] Aug 26, 2008 09:28 AM CURRENT SMOKER 1/2 ppd [facility] Aug 26, 2008 09:28 AM V1-PT DECLINES REF TO TOBACCO CESS PRGM [facility] [place] [facility] Aug 26, 2008 09:28 AM V1-PT READY TO QUIT TOBACCO USE [facility] [place] [facility] Dec 19, 2007 10:08 AM V1-PT DECLINES REF TO TOBACCO CESS PRGM [facility] Dec 19, 2007 10:08 AM V1-PT DECLINES TOBACCO CESSATION MEDS [facility] Dec 19, 2007 10:08 AM V1-PT THINKING ABOUT QUIT TOBACCO USE [facility] [place] [facility] Sep 11, 2007 11:10 AM CURRENT SMOKER [facility] [place] [facility] Sep 11, 2007 11:10 AM V1-PT DECLINES REF [facility] TOBACCO [facility]ESS [facility] Sep 11, 2007 11:10 AM V1-PT DECLINES TOBACCO CESSATION MEDS [facility] Sep 11, 2007 11:10 AM V1-PT THINKING ABOUT QUIT [facility]BACCO [facility] Feb 13, 2007 01:46 PM V1-PT DECLINES REF TO TOBACCO CESS [facility] Feb 13, 2007 01:46 PM V1-PT DECLINES TOBACCO CESSATION MEDS [facility] Feb 13, 2007 01:46 PM V1-PT THINKING ABOUT QUIT TOBACCO USE [facility] Oct 02, 2006 08:28 AM QUIT TOBACCO USE IN PAST YEAR 3 months ago [facility] Aug 19, 2005 08:33 AM QUIT TOBACCO USE IN PAST YEAR nonsmoker [facility] Sep 21, 2004 09:54 AM CUR[facility] SMOKER [facility] Sep 07, 2004 08:07 AM CURRENT SMOKER [facility] Sep 15, 2003 11:21 AM CURRENT SMOKER smokes one pk day [facility] Jul 23, 2003 01:57 PM CURRENT SMOKER [facility] Advance Directives: All historical [...] Provider Source Apr 10, 2023 ADVANCE DIRECTIVE [facility] Apr 19, 2007 ADVANCE DIRECTIVE [...] Loc) Img Loc: NHM/CT Service: Unknown [place] [facility] , (Case [id number] COMPLETE) CT THORAX W/O CONT (CT Detailed) CPT:09674 Reason for Study: smoker x 65 years Clinical History: Report Status: Verified Date Reported: FEB 20, 2024 Date Verified: FEB 20, 2024 R And D Lab Technician E-Sig: Report: CT THORAX W/O CONT [...] as above. READING PHYSICIAN: Ck Jean M.D. -[id number] 02/20/2024 12:57 PDT [facility] National Teleradiology Program [phone] (For Medical Practitioner Use Only) Attention Patients / Veterans: If you have questions or concerns about these test results, please contact your ordering provider or primary care team. Primary Diagnostic Code: SIGNIFICANT ABNORMALITY, ATTN NEEDED Primary Interpreting Staff: RADIOLOGY,OUTSIDE SERVICE, Staff Physician / RADIOLOGY,OUTSIDE SERVICE [facility] Encounter Notes: All associated encounter notes [...] CT 09/25/2023 TRACY VILLANUEVA Depression (SNOMED CT [id number]) F33 12/10/2021 TRAVIS GOMES Dry Eye Syndromes [...] 10/31/2013 JOVANY NAYLOR Tobacco use (SNOMED CT 522950931) Z 02/20/2024 GUSTAVO MCKEON BMI: 25.4 SUBSTANCE [...] 5 mg at HS for sleep - [facility] Sleep medicine - Cardiology - Hematology [...] 03/12/2024 14:12 LANA COLINDRES [facility] [place] [facility] Mar 07, 2024 09:02 AM PSYCHIATRY NOTE: [...] CT 09/25/2023 TRACY VILLANUEVA Depression (SNOMED CT [id number]) F33 12/10/2021 TRAVIS GOMES Dry Eye Syndromes * (ICD-9-CM 375.1 03/17/2009 NAHED JARQUIN OD Late effect of fracture of skull an 12/03/2008 JOVANY NAYLOR OA - Osteoarthritis of hip M16.9 12/25/2023 TRACY VILLANUEVA Prostate, 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 12/25/2023 TRACY VILLANUEVA POLYPS, COLON/LG BOWEL (BENIGN MAEGAN 10/31/2013 JOVANY NAYLOR Tobacco use (SNOMED CT 677840632) Z 02/20/2024 GUSTAVO MCKEON BMI: 25.4 SUBSTANCE [...] 5 mg at HS for sleep - [facility] Sleep medicine - Cardiology - Hematology [...] of active outpatient prescriptions dispensed from this [place] (local) and dispensed from another [facility] or [...] JOSE NORTON JESSICA E [facility]
--- OUTSIDE RECORDS SUMMARY | 2024-10-30 10:01 | XMS_ITS | Encounter Summary ---
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 Role Phone KAY TRACY Primary Care Provider Unavailabl e Insurance Providers: [...] PHI MEDEX BRONZ E December 19, 2013 [id number] [phone] GUSTAVO ARAMBULA SR PATIENT [employer] MEDICARE SUPPLEMEN PHI MEDIC ARE SUPPL EMENT Jul 21, 2007 NONE [id number] [phone] Edgar ARAMBULA [place]IENT [place]PPLE[place] PHI MEDEX BRONZ E December 19, 2013 [id number] GUSTAVO ARAMBULA SR PATIENT [place] MEDICARE SUPPLEMEN PHI MEDEX BRONZ E December 19, 2013 [id number] FILEMONEEdgar [place] PAT[place] ([place]) MEDICARE () PART A Oct 19, 2004 PART A [id number] FILEMONEEdgar [place] PAT[place]) MEDICARE (M) PART B Oct 19, 2004 PART B [id number] FILEMONEEdgar [place]) MEDICARE (M) PART A Oct 19, 2004 PART A [id number] SEVABIEEdgar [place] PAT[place]) MEDICARE (M) PART B Oct 19, 2004 PART B [id number] [phone] FILEMONEEdgar [place] PAT[place]) MEDICARE () PART B Oct 19, 2004 PART B [id number] SEVIGNEEdgar [place]) MEDICARE () PART A Oct 19, 2004 PART A [id number] SEVABIEEdgar [place] PAT[place]) MEDICARE () PART A Oct 19, 2004 PART A [id number] [phone] FILEMONEEdgar [place] PAT[place]) MEDICARE () PART B Oct 19, 2004 PART B [id number] [phone] SEVABIEEdgar [place]) MEDICARE () PART A Oct 19, 2004 PART A [id number] [phone] SEVABIEEdgar [place] PAT[place]) MEDICARE () PART B Oct 19, 2004 PART B [id number] SEVABIEEdgar [place] PATIENT Selected Encounter This [...] complications OSJOHN LR [facility] May 31, 2024 12:39 PM SECONDARY Dry eye syndrome of bilateral lacrimal glands OSHINSKIE,JOHN MEDINAD J [facility] May 31, 2024 12:39 PM SECONDARY Hypermetropia, bilateral OSHINSKIE,JOHN MEDINAD J [facility] May 31, 2024 12:39 PM SECONDARY Macular cyst, hole, or pseudohole, right eye OSHINSKIE,JOHN MEDINAD J [facility] May 31, 2024 12:39 PM SECONDARY Open angle with borderline findings, low risk, bilateral OSHINSKIE,JOHN MEDINAD J [facility] May 31, 2024 12:39 PM SECONDARY Presbyopia OSHINSKIRichy,JOHN HANEYD J [facility] May 31, 2024 12:39 PM SECONDARY Presence of intraocular lens OSHICHELSEABC,JOHN MEDINAD J [place] [facility] Plan of Treatment: Future Appointments (+ [...] 10, 2024 10:00 AM [facility] Jun 11, 2024 09:30 AM AMBULATORY - PSYCHIATRY [place] [facility] Jun 13, 2024 10:00 AM AMBULATORY - MEDICINE [facility] Jun 19, 2024 11:00 AM AMBULATORY - NONE [facility] Jun 21, 2024 09:00 AM AMBULATORY - MEDICINE [facility] Jun 21, 2024 09:15 AM AMBULATORY - MEDICINE [facility] Jun 21, 2024 09:30 AM AMBULATORY - MEDICINE [facility] Jun 26, 2024 08:00 AM AMBULATORY - MEDICINE [facility] Jul 05, 2024 09:00 AM AMBULATORY - REHAB MEDICIN E [facility] Jul 30, 2024 09:30 AM AMBULATORY - PSYCHIATRY [facility] Aug 05, 2024 09:45 AM AMBULATORY - MEDICINE [facility] Aug 28, 2024 10:00 AM AMBULATORY - MEDICINE [facility] Aug 28, 2024 10:30 AM AMBULATORY - MEDICINE [facility] Sep 06, 2024 11:00 AM AMBULATORY - MEDICINE [facility] Sep 18, 2024 11:00 AM AMBULATORY - NONE [facility] Sep 26, 2024 12:30 PM [facility] Oct 08, 2024 09:30 AM AMBULATORY - PSYCHIATRY [facility] Oct 14, 2024 12:30 PM AMBULATORY - MEDICINE [facility] Oct 15, 2024 07:45 AM AMBULATORY - NONE [facility] Oct 21, 2024 09:30 AM AMBULATORY - MEDICINE [facility] Social History: Smoking [...] 25, 2023 09:05 AM VA-TOBACCO NEVER USED [facility] Tobacco Use History This section includes a history of the smoking, or tobacco-related health factors, that were collected on or before the date of the Encounter. The data comes from the [place] facility where the Encounter took place. Date/Time Smoking Status/Tobac co Use Comment Facility Dec 13, 2022 03:00 PM VA-TOBACCO DOESNT USE WI 30 MIN WAKEUP [facility] Dec 13, 2022 03:00 PM VA-TOBACCO USE 30 YEARS OR MORE [facility] Dec 13, 2022 03:00 PM VA-TOBACCO USE ADVICE [facility] Dec 13, 2022 03:00 PM VA-TOBACCO USE [facility] NO [facility] Dec 13, 2022 03:00 PM VA-TOBACCO USE MED NO [place] [facility] Dec 13, 2022 03:00 PM VA-TOBACCO USER EVERY DAY [place] [facility] Nov 17, 2021 10:00 AM VA-TOBACCO USE 30 YEARS OR MORE [place] [facility] Nov 17, 2021 10:00 AM VA-TOBACCO USE ADVICE [place] [facility] Nov 17, 2021 10:00 AM VA-TOBACCO USE [facility] NO [place] [facility] Nov 17, 2021 10:00 AM VA-TOBACCO USE MED NO [place] [facility] Nov 17, 2021 10:00 AM VA-TOBACCO USE WI 30 MIN OF WAKEUP [place] [facility] Nov 17, 2021 10:00 AM VA-TOBACCO USER EVERY DAY [place] [facility] Oct 14, 2013 12:55 PM V1-PT NOT INTERESTED IN QUIT TOBACCO USE [facility] May 07, 2013 05:04 PM CURRENT SMOKER trying to stop [facility] May 07, 2013 05:04 PM V1-PT DECLINES REF TO TOBACCO CESS PRGM [place] [facility] May 07, 2013 05:04 PM V1-PT DECLINES TOBACCO CESSATION MEDS [place] [facility] May 07, 2013 05:04 PM V1-PT READY TO QUIT TOBACCO USE [facility] Dec 03, 2012 08:23 AM V1-PT DECLINES REF TO TOBACCO CESS PR[facility] Dec 03, 2012 08:23 AM V1-PT DECLINES TOBACCO CESSATION MEDS [facility] Dec 03, 2012 08:23 AM V1-PT THINKING ABOUT QUIT TOBACCO USE [facility] Jun 05, 2012 08:45 AM CURRENT SMOKER 1/2ppd [facility] Jun 05, 2012 08:45 AM V1-PT DECLINES REF TO TOBACCO CESS PRGM [facility] Jun 05, 2012 08:45 AM V1-PT THINKING ABOUT QUIT TOBACCO USE [facility] Jun 05, 2012 08:45 AM V1-TOBACCO CESS MEDS NOT PRESCRIBED Vet wants to talk to his provider-He is nervous about taking meds to quit- but he is interested in qu[facility] Nov 25, 2011 09:14 AM V1-PT DECLINES REF TO TOBACCO CESS PRGM [facility] Nov 25, 2011 09:14 AM V1-PT DECLINES TOBACCO CESSATION MEDS [facility] Nov 25, 2011 09:14 AM V1-PT THINKING ABOUT QUIT TOBACCO USE [facility] May 06, 2011 01:02 PM CURRENT SMOKER [facility] May 06, 2011 01:02 PM V1-PT DECLINES TOBACCO CESSATION MEDS [facility] May 06, 2011 01:02 PM V1-PT NOT INTERESTED IN QUIT TOBACCO USE [facility] Sep 24, 2010 08:51 AM V1-PT DECLINES TOBACCO CESSATION MEDS [facility] Sep 24, 2010 08:51 AM V1-PT THINKING ABOUT QUIT TOBACCO USE [facility] Mar 22, 2010 07:58 AM CURRENT SMOKER 1/2 ppd [facility] Feb 25, 2009 12:05 PM QUIT TOBACCO USE IN PAST YEAR [facility] Aug 26, 2008 09:28 AM CURRENT SMOKER 1/2 ppd [facility] Aug 26, 2008 09:28 AM V1-PT DECLINES REF TO TOBACCO CESS PRGM [facility] Aug 26, 2008 09:28 AM V1-PT READY TO QUIT TOBACCO USE [facility] Dec 19, 2007 10:08 AM V1-PT DECLINES REF TO TOBACCO CESS PRGM [facility] Dec 19, 2007 10:08 AM V1-PT DECLINES TOBACCO CESSATION MEDS [facility] Dec 19, 2007 10:08 AM V1-PT THINKING ABOUT QUIT TOBACCO USE [facility] Sep 11, 2007 11:10 AM CURRENT SMOKER [facility] Sep 11, 2007 11:10 AM V1-PT DECLINES REF TO TOBACCO CESS PRGM [facility] Sep 11, 2007 11:10 AM V1-PT DECLINES TOBACCO CESSATION MEDS [facility] Sep 11, 2007 11:10 AM V1-PT THINKING ABOUT QUIT TOBACCO USE [facility] Feb 13, 2007 01:46 PM V1-PT DECLINES REF TO TOBACCO CESS PRGM [facility] Feb 13, 2007 01:46 PM V1-PT DECLINES TOBACCO CESSATION MEDS [facility] Feb 13, 2007 01:46 PM V1-PT THINKING ABOUT QUIT TOBACCO USE [facility] Oct 02, 2006 08:28 AM QUIT TOBACCO USE IN PAST YEAR 3 months ago [facility] Aug 19, 2005 08:33 AM QUIT TOBACCO USE IN PAST YEAR nonsmoker [place] [facility] Sep 21, 2004 09:54 AM CURRENT SMOKER [facility] Sep 07, 2004 08:07 AM CURRENT SMOKER [facility] Sep 15, 2003 11:21 AM CURRENT SMOKER smokes one pk day [facility] Jul 23, 2003 01:57 PM CURRENT SMOKER [facility] Advance Directives: All historical [...] Apr 10, 2023 ADVANCE DIRECTIVE ESSIE STARK [facility] Apr 19, 2007 ADVANCE DIRECTIVE VICTORIA JOHNSON [facility] Encounter Notes: All associated encounter [...] here in 2012. Getting eye care in [place] Dr Barr since then. 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 02/09/2023 IVORY AUSTINED JAWED Abnormal imaging R93.421 02/09/2023 YULY AUSTIN [...] CT 09/25/2023 TRACY VILLANUEVA Depression (SNOMED CT 05227635) F33 12/10/2021 TRAVIS GOMES Dry Eye Syndromes [...] 10/31/2013 JOVANY NAYLOR Tobacco use (SNOMED CT 546954614) Z 02/20/2024 GUSTAVO MCKEON Active Outpatient Medications [...] OD 20/200-2 OS 20/20 current Rx OD +2.00-1.19w008 OS +2.00-1.57g823 refraction OD +1.75-0.54k237 20/200+2 OS +1.75-1.26f860 20/20-2 pupils: PERRL - RAPD OU EOM: [...] this [place] (local) and dispensed from another [place] or [facility] facility (remote) as well as inpatient orders [...] JLV. Allergies/ADRs (Tool #5) FACILITY ALLERGY/ADR -------- [facility] GEMFIBROZIL [place] [facility] LISINOPRIL [facility] NO KNOWN ALLERGIES [facility] NO KNOWN ALLERGIES Med. Reconciliation (Tool #1) INCLUDED IN THIS LIST: Alphabetical list of active outpatient prescriptions dispensed from this [facility] (local) and dispensed from another [place] or [facility] facility (remote) as well as inpatient orders (local pending and active), local clinic medications, locally documented non-VA medications, and local prescriptions that have or been discontinued in the past 90 days. Non-VA Meds Last Documented On: Nov 17, 2021 NOTE The display of VA prescriptions dispensed from another [place] or [facility] facility (remote) is limited to active outpatient prescription entries matched to National Drug File at the originating site and may not include some items such as investigational drugs, compounds, etc. NOT INCLUDED IN THIS LIST: Medications self-entered by the patient into personal health records (i.e. [employer]) are NOT included in this list. Non-VA medications documented outside this [place], remote inpatient orders (regardless of status) and remote clinic medications are NOT included in this list. The patient and provider must always discuss medications the patient is taking, regardless of where the medication was dispensed or obtained. OUTPT ACETAMINOPHEN 500MG TAB (Status = Active) TAKE TWO TABLETS BY MOUTH TWICE DAILY FOR PAIN Rx# [id number] Last Released: 03/12/24 Qty/Days Supply: 400 Rx Expiration Date: 03/12/25 Refills Remainin Indication: FOR PAIN OUTPT ALBUTEROL 90MCG (CFC-F) 200D ORAL INHL (Status = Active) INHALE 1 TO 2 PUFFS BY MOUTH EVERY 6 HOURS NEEDED FOR BRONCHOSPASM Rx# [id number] Last Released: 03/12/24 Qty/Days Supply: Rx Expiration Date: 03/12/25 Refills Remainin Indication: FOR BRONCHOSPASM OUTPT AMLODIPINE BESYLATE 10MG TAB (Status = Discontinued) TAKE ONE TABLET BY MOUTH ONCE DAILY FOR BLOOD PRESSURE/HEART, DO NOT TAKE WITH GRAPEFRUIT JUICE Rx# [id number] Last Released: 11/23/23 Qty/Days Supply: 90 Rx Expiration Date: 09/25/24 Refills Remainin OUTPT AMLODIPINE BESYLATE 10MG TAB (Status = Active) TAKE ONE TABLET BY MOUTH ONCE DAILY FOR BLOOD PRESSURE/HEART, DO NOT TAKE WITH GRAPEFRUIT JUICE Rx# [id number] Last Released: 03/13/24 Qty/Days Supply: 90 Rx Expiration Date: 03/12/25 Refills Remainin OUTPT APIXABAN 5MG TAB (Status = Active) TAKE ONE TABLET BY MOUTH EVERY 12 HOURS FOR PREVENTION OF BLOOD CLOTS Rx# [id number] Last Released: 05/20/24 Qty/Days Supply: 180/ Rx Expiration Date: 11/10/24 Refills Remainin Indication: FOR PREVENTION OF BLOOD CLOTS OUTPT ASPIRIN 81MG EC TAB (Status = Discontinued) TAKE ONE TABLET BY MOUTH ONCE DAILY TO PREVENT STROKE/HEART ATTACK Rx# [id number] Last Released: 09/25/23 Qty/Days Supply: 120/ Rx Expiration Date: 09/25/24 Refills Remainin OUTPT ATORVASTATIN CALCIUM 40MG TAB (Status = Discontinued) TAKE ONE-HALF TABLET BY MOUTH ONCE DAILY FOR CHOLESTEROL Rx# [id number] Last Released: 12/25/23 Qty/Days Supply: 45 Rx Expiration Date: 08/22/24 Refills Remainin OUTPT ATORVASTATIN CALCIUM 40MG TAB (Status = Active) TAKE ONE-HALF TABLET BY MOUTH ONCE DAILY FOR CHOLESTEROL Rx# [id number] Last Released: 03/12/24 Qty/Days Supply: 45 Rx Expiration Date: 03/12/25 Refills Remainin OUTPT BUPRENORPHINE 15MCG/HR PATCH (Status = Discontinued) APPLY 1 PATCH TO SKIN EVERY 5 DAYS FOR PAIN (REMOVE PATCH BEFORE APPLYING A NEW PATCH) Rx# [id number] Last Released: 02/19/24 Qty/Days Supply: 02/17 Rx Expiration Date: 08/19/24 Refills Remainin Indication: FOR PAIN OUTPT BUPRENORPHINE 5MCG/HR PATCH (Status = Discontinued) APPLY 2 PATCH 5MCG/HOUR TO SKIN EVERY 7 DAYS FOR 7 DAYS, THEN APPLY 1 PATCH 5MCG/HR EVERY 7 DAYS FOR 14 DAYS FOR PAIN (REMOVE PATCH BEFORE APPLYING A NEW PATCH) Rx# [id number] Last Released: 03/18/24 Qty/Days Supply: 09/27 Rx Expiration Date: 04/14/24 Refills Remainin Indication: FOR PAIN OUTPT BUPRENORPHINE 5MCG/HR PATCH (Status = Discontinued) APPLY 1 PATCH TO SKIN EVERY 5 DAYS FOR PAIN (REMOVE PATCH BEFORE APPLYING A NEW PATCH) Rx# [id number] Last Released: 03/29/24 Qty/Days Supply: 02/17 Rx [...] ONCE DAILY FOR DEPRESSION AND ANXIETY Rx# [id number] Last Released: 04/05/24 Qty/Days Supply: Rx Expiration Date: 07/03/24 Refills Remainin Indication: FOR MAJOR DEPRESSIVE DISORDER OUTPT CITALOPRAM HYDROBROMIDE 40MG TAB (Status = Active) TAKE ONE-HALF TABLET BY MOUTH ONCE DAILY FOR DEPRESSION AND ANXIETY Rx# [id number] Last Released: 05/01/24 Qty/Days Supply: Rx Expiration Date: 07/29/24 Refills Remainin Indication: FOR MAJOR DEPRESSIVE DISORDER OUTPT FLUTICAS 500/SALMETEROL 50 INHL DISK 60 (Status = Discontinued) INHALE 1 PUFF BY MOUTH TWICE DAILY - RINSE MOUTH AFTER USE Rx# [id number] Last Released: 03/13/24 Qty/Days Supply: Rx Expiration Date: 03/12/25 Refills Remainin Indication: FOR CONTROLLER MEDICATION FOR ASTHMA OUTPT HYDROCHLOROTHIAZIDE 25MG TAB (Status = Discontinued) TAKE ONE-HALF TABLET BY MOUTH ONCE DAILY FOR HIGH BLOOD PRESSURE Rx# [id number] Last Released: 02/15/24 Qty/Days Supply: Rx Expiration Date: 02/13/25 Refills Remainin Indication: FOR HIGH BLOOD PRESSURE OUTPT HYDROCORTISONE 1% OINT (Status = Active) APPLY THIN LAYER TOPICALLY TWICE DAILY NEEDED FOR ATOPIC DERMATITIS Rx# [id number] Last Released: 03/13/24 Qty/Days Supply: Rx Expiration Date: 03/12/25 Refills Remainin Indication: FOR ATOPIC DERMATITIS OUTPT LORAZEPAM 0.5MG TAB (Status = Discontinued) TAKE ONE HALF TABLET BY MOUTH TWICE DAILY NEEDED Rx# [id number] Last Released: 03/01/24 Qty/Days Supply: Rx Expiration Date: 08/17/24 Refills Remainin Indication: PANIC ATTACKS OUTPT LORAZEPAM 0.5MG TAB (Status = Discontinued) TAKE ONE HALF TABLET BY MOUTH TWICE DAILY NEEDED Rx# [id number] Last Released: 04/01/24 Qty/Days Supply: Rx Expiration Date: 09/07/24 Refills Remainin Indication: PANIC ATTACKS OUTPT MELATONIN 5MG CAP/TAB (Status = Active) TAKE ONE CAPSULE/TABLET BY MOUTH AT BEDTIME FOR INSOMNIA Rx# [id number] Last Released: 04/26/24 Qty/Days Supply: 90/ Rx Expiration Date: 03/02/25 Refills Remainin Indication: FOR INSOMNIA OUTPT METFORMIN HCL 750MG 24HR SA TAB (Status = Discontinued) TAKE TWO TABLETS BY MOUTH ONCE DAILY FOR TYPE 2 DIABETES MELLITUS Rx# [id number] Last Released: 03/27/24 Qty/Days Supply: 180/90 Rx Expiration Date: 03/26/25 Refills Remainin Indication: FOR TYPE 2 DIABETES MELLITUS OUTPT METFORMIN HCL 750MG 24HR SA TAB (Status = Active) TAKE ONE TABLET BY MOUTH TWICE DAILY FOR TYPE 2 DIABETES MELLITUS Rx# [id number] Last Released: 05/15/24 Qty/Days Supply: 180/90 Rx Expiration Date: 05/15/25 Refills Remainin Indication: FOR TYPE 2 DIABETES MELLITUS OUTPT MIRTAZAPINE 15MG TAB (Status = Discontinued) TAKE ONE AND ONE-HALF TABLETS BY MOUTH AT BEDTIME Rx# [id number] Last Released: 02/15/24 Qty/Days Supply: 135/90 Rx Expiration Date: 05/15/24 Refills Remainin Indication: ANXIETY, NAUSEA, SLEEP OUTPT NICOTINE 14MG/24HR PATCH (Status = ) APPLY 1 PATCH TO SKIN ONCE DAILY (REMOVE OLD PATCH BEFORE APPLYING NEW PATCH) Rx# [id number] Last Released: 03/12/24 Qty/Days Supply: 42/42 Rx Expiration Date: 04/22/24 Refills Remainin Indication: FOR SMOKING CESSATION OUTPT NICOTINE 7MG/24HR PATCH (Status = ) APPLY 1 PATCH TO SKIN ONCE DAILY (REMOVE OLD PATCH BEFORE APPLYING NEW PATCH) * USE AFTER 14 MG PATCHES * Rx# [id number] Last Released: 03/16/24 Qty/Days Supply: 70/70 Rx Expiration Date: 05/20/24 Refills Remainin Indication: FOR SMOKING CESSATION OUTPT NUTRITION SUPL ENSURE PLUS/CONNIE LIQUID (Status = On Hold) DRINK 1 CAN BY MOUTH TWICE DAILY Rx# [id number] Last Released: Qty/Days Supply: Rx Expiration Date: 02/13/25 Refills Remainin Indication: FOR NUTRITIONAL SUPPLEMENTATION OUTPT ONDANSETRON 4MG ORAL DISINTEGRATING TAB (Status = ) PLACE ONE TABLET ON THE TONGUE EVERY 8 HOURS NEEDED FOR NAUSEA AND VOMITING (ALLOW TABLET TO DISSOLVE ON TONGUE, AND SWALLOW WITH SALIVA) Rx# [id number] Last Released: 03/13/24 Qty/Days Supply: 90/60 Rx Expiration Date: 05/10/24 Refills Remainin Indication: FOR NAUSEA AND VOMITING OUTPT PANTOPRAZOLE NA 40MG EC TAB (Status = Active) TAKE ONE TABLET BY MOUTH EVERY MORNING 30 MINUTES BEFORE BREAKFAST Rx# [id number] Last Released: 05/20/24 Qty/Days Supply: 90 Rx Expiration Date: 11/10/24 Refills Remainin OUTPT QUETIAPINE FUMARATE 25MG TAB (Status = Discontinued) TAKE ONE TABLET BY MOUTH AT BEDTIME SLEEP, DEPRESSION, ANXIETY Rx# [id number] Last Released: 04/05/24 Qty/Days Supply: Rx Expiration Date: 04/05/25 Refills Remainin Indication: SLEEP, DEPRESSION, ANXIETY OUTPT QUETIAPINE FUMARATE 25MG TAB (Status = Active) TAKE ONE TABLET BY MOUTH AT BEDTIME Rx# [id number] Last Released: 05/01/24 Qty/Days Supply: 90 Rx Expiration Date: 05/01/25 Refills Remainin Indication: SLEEP, DEPRESSION, ANXIETY OUTPT SENNOSIDES 8.6MG TAB (Status = Active) TAKE ONE TABLET BY MOUTH TWICE DAILY NEEDED FOR CONSTIPATION Rx# [id number] Last Released: 01/19/24 Qty/Days Supply: 200/90 Rx Expiration Date: 09/25/24 Refills Remainin Indication: FOR CONSTIPATION OUTPT TIOTROPIUM 2.5MCG/ACTUAT 60D ORAL INHL (Status = Active) INHALE 2 PUFFS BY MOUTH ONCE DAILY Rx# [id number] Last Released: 03/12/24 Qty/ Supply: 09/19 Rx Expiration Date: 03/12/25 Refills Remainin Indication: FOR BRONCHOSPASM PREVENTION WITH COPD OUTPT TRAZODONE HCL 100MG TAB (Status = Discontinued) TAKE ONE-HALF TABLET BY MOUTH AT BEDTIME INSOMNIA Rx# [id number] Last Released: 03/01/24 Qty/Days Supply: Rx Expiration Date: 09/12/24 Refills Remainin Indication: INSOMNIA OUTPT TRIAMCINOLONE ACETONIDE 0.1% CREAM (Status = On Hold) APPLY A THIN LAYER TOPICALLY EVERY 5 DAYS Rx# [id number] Last Released: Supply: Rx Expiration Date: 11/06/24 Refills Remainin Indication: FOR ATOPIC DERMATITIS SUPPLIES OUTPT DEPEND UNDERWEAR,MAXIMUM,MEN SM/MED (Status = Active) USE 1 BRIEF DIRECTED TWICE DAILY FOR INCONTINENCE Rx# [id number] Last Released: 02/16/24 Qty/Days Supply: 152/ Rx Expiration Date: 02/13/25 Refills Remainin Indication: URINARY INCONTINENCE OUTPT TABLET CUTTER (PILL SPLITTER) (Status = ) USE CUTTER DIRECTED BY PROVIDER TO SPLIT TABLETS Rx# [id number] Last Released: 02/14/24 Qty/Days Supply: Rx Expiration Date: 05/13/24 Refills Remainin PHARMACY TERMS AND POSSIBLE PATIENT ACTIONS INPT = [place] inpatient order IV = [facility] intravenous medication OUTPT = [place] outpatient prescription PHARMACY POSSIBLE PATIENT TERMS EXPLANATION ACTIONS -------- - ACTIVE A prescription that can be If you have refills, filled at the local [facility] pharmacy. you may request a refill of this [facility] from [facility]. CLINIC A medication you received during If you have questions a visit to a [facility] clinic or about this medication emergency department. contact your [facility] healthcare team. DISCONTINUED A prescription your provider has Contact your [facility] stopped. It is no longer healthcare team if you available to be sent to you or need more of this picked up at the [facility] pharmacy medication. window. A prescription which is [...] the [facility]. Or, it may be an [id number] (OTC), herbal, dietary supplements or sample medication. [...] An active prescription that is Contact your [place] not scheduled to be filled yet. pharmacy if you need You should receive it before this medication now. you run out. ==== /reginaldo/ Barbara Arteaga OD Fee Basis Routing Clerk Signed: 05/31/2024 12:53 BARBARA ARTEAGA [place] [facility]
--- OUTSIDE RECORDS SUMMARY | 2024-10-30 10:01 | XMS_ITS | Encounter Summary ---
Author Name [facility] [facility] [place] [facility] [place] Address [address] [place] [address] Care Team Providers Care Sales Account Specialist Name Role Phone TRACY VILLANUEVA Primary Care [...] PHI MEDEX BRONZ E December 19, 2013 [id number] GUSTAVO ARAMBULA SR PATIENT [employer] CASUALTY MEDICARE SUPPLEMEN PHI MEDIC ARE SUPPL EMENT Jul 21, 2007 NONE [id number] [phone] Edgar ARAMBULA [place] SUPPLEMEN PHI MEDEX BRONZ E December 19, 2013 [id number] [phone] GUSTAVO ARAMBULA SR PATIENT [place] MEDICARE SUPPLEMEN PHI MEDEX BRONZ E December 19, 2013 [id number] [phone] Edgar ARAMBULA [place] PATIENT MEDICARE (WNR) MEDICARE (M) PART A Oct 19, 2004 PART A [id number] Edgar ARAMBULA [place] PAT[place] MEDICARE (WNR) MEDICARE (M) PART B Oct 19, 2004 PART B [id number] [phone] Edgar ARAMBULA [place] PATIENT MEDICARE (WNR) MEDICARE (M) PART A Oct 19, 2004 PART A [id number] Edgar ARAMBULA [place] PAT[place] MEDICARE ([place]NR) MEDICARE (M) PART B Oct 19, 2004 PART B [id number] [phone] Edgar ARAMBULA [place] PATIENT MEDICARE (WNR) MEDICARE (M) PART A Oct 19, 2004 PART A [id number] Edgar ARAMBULA [place] PATIENT MEDICARE (WNR) MEDICARE () PART B Oct 19, 2004 PART B [id number] [phone] Edgar ARAMBULA [place] PATIENT MEDICARE (WNR) MEDICARE () PART A Oct 19, 2004 PART A [id number] [phone] Edgar ARAMBULA [place] PATIENT MEDICARE (WNR) MEDICARE () PART B Oct 19, 2004 PART B [id number] FILEMONEEdgar [place] PATIENT MEDICARE ([place]) MEDICARE () PART A Oct 19, 2004 PART A [id number] Edgar ARAMBULA [place] PATIENT MEDICARE (WNR) MEDICARE (M) PART B Oct 19, 2004 PART B [id number] Edgar ARAMBULAN PATIENT Selected Encounter This [...] unspecified JOSEY COL[facility]ES [facility] [place] [facility] Apr 30, 2024 09:00 AM SECONDARY Other insomnia JOSEY COLINDRES [place] [facility] [place] [facility] Plan of Treatment: Future Appointments (+ 6 [...] - NONE [facility] [place] [facility] May 14, 2024 11:30 AM AMBULATORY - MEDICINE [facility] May 31, 2024 11:00 AM AMBULATORY - REHAB MEDICIN E [facility] [place] [facility] May 31, 2024 12:00 PM AMBULATORY - MEDICINE [facility] [place] [facility] Jun 10, 2024 10:00 AM AMBULATORY - MEDICINE [facility] Jun 11, 2024 09:30 AM AMBULATORY - PSYCHIATRY [facility] [place] [facility] Jun 13, 2024 10:00 AM AMBULATORY - MEDICINE [facility] [place] [facility] Jun 19, 2024 11:00 AM AMBULATORY - NONE [facility] [place] [facility] Jun 21, 2024 09:00 AM AMBULATORY - MEDICINE [facility] [place] [facility] Jun 21, 2024 09:15 AM AMBULATORY - MEDICINE [facility] [place] [facility] Jun 21, 2024 09:30 AM AMBULATORY - MEDICINE [facility] [place] [facility] Jun 26, 2024 08:00 AM AMBULATORY - MEDICINE [facility] [place] [facility] Jul 05, 2024 09:00 AM AMBULATORY - REHAB MEDICIN E [facility] [place] [facility] Jul 30, 2024 09:30 AM AMBULATORY - PSYCHIATRY [facility] [place] [facility] Aug 05, 2024 09:45 AM AMBULATORY - MEDICINE [facility] [place] [facility] Aug 28, 2024 10:00 AM AMBULATORY - MEDICINE [facility] [place] [facility] Aug 28, 2024 10:30 AM AMBULATORY - MEDICINE [place] [facility] [place] [facility] Sep 06, 2024 11:00 AM AMBULATORY - MEDICINE [place] [facility] [place] [facility] Sep 18, 2024 11:00 AM AMBULATORY - NONE [place] [facility] [place] [facility] Sep 26, 2024 12:30 PM AMBULATORY - MEDICINE [facility] Lab Results: +/- 30 days of [...] Range Comment Apr 25, 2024 07:51 AM [facility] HEMOGLOBIN A1C PANEL Specimen Type: BLOOD Comment: [...] Feb 13, 2024 02:36 PM Reporting Lab: [place] [facility] [place] [facility] [address] [facility] [address] Performing Lab: [place] [facility] [place] [facility] [address] [facility] [address] HEMOGLOBIN A1C 6.8 H 4.0-5.6 Apr 25, 2024 07:51 AM [facility] MICROALBUMIN CREATININE RATIO PANEL Spe cimen Type: URINE No comment entered. Ordering Provider: TRACY VILLANUEVA Report Released Date/Time: Feb 13, 2024 02:36 PM Reporting Lab: [place] [facility] [address] [address] Performing Lab: [address] [address] MICROALBUMIN/C REATININE RATIO 16.0 mg/g 0-29.9 MICROALBUMIN,Q UANTITATIVE 2.3 mg/dL RR UNAVAIL CREATININE URINE 143.92 mg/dL Apr 25, 2024 07:51 AM [facility] BASIC METABOLIC PANEL (non-fasting) Spe cimen Type: SERUM No comment entered. Ordering Provider: TRACY VILLANUEVA Report Released Date/Time: Feb 13, 2024 02:36 PM Reporting Lab: [address] [address] Performing Lab: [address] [address] UREA NITROGEN 15 mg/dL 7-25 GLUCOSE 173 mg/dL H 65-100 SODIUM 133 mmol/L L 135-145 POTASSIUM 4.2 mmol/L 3.5-5.0 CHLORIDE 100 mmol/L 100-110 CO2 22 meq/L 20-30 CREATININE, Serum 0.74 mg/dL 0.50-1.40 eGFR(CKD-EPI 2020) 89 mL/min >60 Apr 15, 2024 08:39 AM [facility] HEMOGLOBIN A1C PANEL Specimen Type: BLOOD Comment: [...] Apr 09, 2024 09:19 AM Reporting Lab: [address] [address] Performing Lab: [address] [address] HEMOGLOBIN A1C 6.3 H 4.0-5.6 Apr 15, 2024 08:39 AM [facility] LIPID PANEL FASTING Specimen Type: SERUM No comment entered. Ordering Provider: TRACY VILLANUEVA Report Released Date/Time: Apr 09, 2024 09:19 AM Reporting Lab: [facility] [address] [facility] [address] Performing Lab: [address] [address] CHOLESTEROL 137 mg/dL TRIGLYCERIDE 63 mg/dL 0-150 LDL calculated 63 mg/dL 0-129 CHOL/HDL 2.2 HDL CHOLESTEROL 61 mg/dL H 40-60 Apr 15, 2024 08:39 AM [facility] MICROALBUMIN CREATININE RATIO PANEL Spe cimen Type: URINE No comment entered. Ordering Provider: TRACY VILLANUEVA Report Released Date/Time: Apr 09, 2024 09:19 AM Reporting Lab: [address] [address] Performing Lab: [address] [address] MICROALBUMIN/C REATININE RATIO 83.0 mg/g H 0-29.9 MICROALBUMIN,Q UANTITATIVE 16.8 mg/dL RR UNAVAIL CREATININE URINE 202.40 mg/dL Apr 15, 2024 08:39 AM [facility] BASIC METABOLIC PANEL (fasting) Specime n Type: SERUM No comment entered. Ordering Provider: TRACY VILLANUEVA Report Released Date/Time: Apr 09, 2024 09:19 AM Reporting Lab: [address] [address] Performing Lab: [address] [address] UREA NITROGEN 9 mg/dL 7-25 GLUCOSE 159 mg/dL H 65-100 SODIUM 116 mmol/L LL 135-145 POTASSIUM 3.4 mmol/L L 3.5-5.0 CHLORIDE 81 mmol/L L 100-110 CO2 23 meq/L 20-30 CREATININE, Serum 0.69 mg/dL 0.50-1.40 eGFR(CKD-EPI 2020) >90 mL/min >60 Apr 15, 2024 08:39 AM [facility] LIVER FUNCTION Specimen Type: SERUM No comment entered. Ordering Provider: TRACY VILLANUEVA Report Released Date/Time: Apr 09, 2024 09:19 AM Reporting Lab: [address] [address] Performing Lab: [address] [address] PROTEIN,TOTAL 7.3 g/dL 6.0-8.3 ALBUMIN 4.5 g/dL 3.5-5.0 ALKALINE PHOSPHATASE 62 U/L 40-150 AST 35 U/L H 5-34 ALT 27 U/L BILIRUBIN, TOTAL 2.5 mg/dL H 0.2-1.2 BILIRUBIN, DIRECT 0.7 mg/dL H 0-0.5 Apr 15, 2024 08:39 AM J[facility] VITAMIN D (25-OH) Specimen Type: SERUM No comment entered. Ordering Provider: TRACY VILLANUEVA Report Released Date/Time: Apr 09, 2024 09:19 AM Reporting Lab: [address] [address] Performing Lab: [address] [address] VITAMIN D (25-OH) 49 ng/mL 20-50 Apr 15, 2024 08:39 AM J[facility] CBC Specimen Type: BLOOD Comment: MCHC >36, SPECIMEN 1+ ICTERIC, QNS FOR PLASMA REPLACEMENT INTERPRET RESULTS WITH CAUTION, SUGGEST PROPER REDRAW SHORT DRAW Ordering Provider: TRACY VILLANUEVA Report Released Date/Time: Apr 09, 2024 09:19 AM Reporting Lab: [address] [address] Performing Lab: [address] [address] WBC 8.70 10*3/uL 4.50-11.00 RBC 4.75 10*6/uL [...] took place. Date/Time Current Smoking Status Comment [facility] December 25, 2023 09:05 AM VA-TOBACCO NEVER USED [place] [facility] Tobacco Use History This section includes a history of the smoking, or tobacco-related health factors, that were collected on or before the date of the Encounter. The data comes from the [place] facility where the Encounter took place. 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 [facility] [place] [facility] Dec 13, 2022 03:00 PM VA-TOBACCO USE MED NO [facility] [place] [facility] Dec 13, 2022 03:00 PM VA-TOBACCO USER EVERY DAY [facility] [place] [facility] Nov 17, 2021 10:00 AM VA-TOBACCO USE 30 YEARS OR MORE [facility] [place] [facility] Nov 17, 2021 10:00 AM VA-TOBACCO USE ADVICE [facility] [place] [facility] Nov 17, 2021 10:00 AM VA-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 USE 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 [facility] [place] [facility] Nov 17, 2021 10:00 AM VA-TOBACCO USE MED NO [facility] [place] [facility] Nov 17, 2021 10:00 AM VA-TOBACCO USE WI 30 MIN OF WAKEUP [facility] [place] [facility] Nov 17, 2021 10:00 AM VA-TOBACCO USER EVERY DAY [facility] [place] [facility] Oct 14, 2013 12:55 PM V1-PT NOT INTERESTED IN QUIT TOBACCO USE [facility] [place] May 07, 2013 05:04 PM CURRENT SMOKER trying to stop [facility] May 07, 2013 05:04 PM V1-PT DECLINES REF TO TOBACCO CESS PRGM [facility] [place] [facility] May 07, 2013 05:04 PM V1-PT DECLINES TOBACCO CESSATION [facility] May 07, 2013 05:04 PM V1-PT READY TO QUIT TOBACCO USE [facility] Dec 03, 2012 08:23 AM V1-PT DECLINES REF TO TOBACCO CESS [facility] Dec 03, 2012 08:23 AM V1-PT DECLINES TOBACCO CESSATION [facility] Dec 03, 2012 08:23 AM V1-PT THINKING ABOUT QUIT TOBACCO USE [facility] Jun 05, 2012 08:45 AM CURRENT SMOKER 1/2ppd [facility] Jun 05, 2012 08:45 AM V1-PT DECLINES REF TO TOBACCO CESS PR[facility] Jun 05, 2012 08:45 AM V1-PT THINKING ABOUT QUIT TOBACCO [facility] Jun 05, 2012 08:45 AM V1-TOBACCO CESS MEDS NOT PRESCRIBED Vet wants to talk to his provider-He is nervous about taking meds to quit- but he is interested in quitting [facility] Nov 25, 2011 09:14 AM V1-PT DECLINES REF TO TOBACCO CESS PRGM [facility] Nov 25, 2011 09:14 AM V1-PT DECLINES TOBACCO CESSATION MEDS [facility] Nov 25, 2011 09:14 AM V1-PT THINKING ABOUT QUIT TOBACCO [facility] May 06, 2011 01:02 PM CURRENT SMOKER [facility] May 06, 2011 01:02 PM V1-PT DECLINES TOBACCO CESSATION MEDS [facility] May 06, 2011 01:02 PM V1-PT NOT INTERESTED IN QUIT TOBACCO USE [facility] [place] [facility] Sep 24, 2010 08:51 AM V1-PT DECLINES TOBACCO CESSATION MEDS [facility] [place] [facility] Sep 24, 2010 08:51 AM V1-PT THINKING ABOUT QUIT TOBACCO USE [facility] [place] [facility] Mar 22, 2010 07:58 AM CURRENT SMOKER 1/2 ppd [facility] [place] [facility] Feb 25, 2009 12:05 PM QUIT TOBACCO USE IN PAST YEAR [facility] [place] [facility] Aug 26, 2008 09:28 AM CURRENT SMOKER 1/2 ppd [facility] [place] [facility] Aug 26, 2008 09:28 AM V1-PT DECLINES REF TO TOBACCO CESS PRGM [place] [facility] [place] [facility] Aug 26, 2008 09:28 AM V1-PT READY TO QUIT TOBACCO USE [facility] [place] [facility] Dec 19, 2007 10:08 AM V1-PT DECLINES REF TO TOBACCO CESS PRGM [facility] [place] [facility] Dec 19, 2007 10:08 AM V1-PT DECLINES TOBACCO CESSATION MEDS [facility] [place] [facility] Dec 19, 2007 10:08 AM V1-PT THINKING ABOUT QUIT TOBACCO USE [facility] [place] [facility] Sep 11, 2007 11:10 AM CURRENT SMOKER [facility] [place] [facility] Sep 11, 2007 11:10 AM V1-PT DECLINES REF TO TOBACCO CESS [facility] [place] [facility] Sep 11, 2007 11:10 AM V1-PT DECLINES TOBACCO CESSATION MEDS [facility] [place] [facility] Sep 11, 2007 11:10 AM V1-PT THINKING ABOUT QUIT TOBACCO USE [facility] [place] [facility] Feb 13, 2007 01:46 PM V1-PT DECLINES REF TO TOBACCO CESS PRGM [place] [facility] [place] [facility] Feb 13, 2007 01:46 PM V1-PT DECLINES TOBACCO CESSATION MEDS [facility] [place] [facility] Feb 13, 2007 01:46 PM V1-PT THINKING ABOUT QUIT TOBACCO USE [facility] [place] [facility] Oct 02, 2006 08:28 AM QUIT TOBACCO [...] Provider Source Apr 10, 2023 ADVANCE DIRECTIVE CARLOSSUDHIRESSIE DOZIER [facility] Apr 19, 2007 [facility] Encounter Notes: All associated encounter notes This section contains the clinical notes associated to the Encounter. Date/Time Encounter Note(s) Provider Source Apr 30, 2024 08:34 AM PSYCHIATRY NOTE: LOCAL TITLE: PSYCHIATRY NOTE STANDARD TITLE: PSYCHIATRY NOTE DATE OF NOTE: APR 30, 2024@08:34 ENTRY DATE: APR 30, 2024@08:34:11 AUTHOR: LANA COLINDRES COSIGNER: URGENCY: STATUS: COMPLETED PSYCHIATRY FOLLOW UP VISIT FILEMONGUSTAVO Lockhart SR [...] CT 09/25/2023 TRACY VILLANUEVA Depression (SNOMED CT [id number]) F33 12/10/2021 TRAVIS GOMES Dry Eye Syndromes * (ICD-9-CM 375.1 03/17/2009 JARQUIN,NAHED P OD Late effect of fracture of skull an 12/03/2008 JOVANY NAYLOR Localised, primary osteoarthritis M 03/12/2024 TRACY VILLANUEVA Prostate, 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., Ons 04/22/2008 JOVANY NAYLOR Cataract, Cortical (Senile) 366.15 05/04/2006 SOURAV JARQUINENCE P OD Open Angle Glaucoma Suspect 365.01 05/04/2006 JARQUIN,NAHED P OD Mixed hyperlipidaemia E78.2 12/25/2023 TRACY VILLANUEVA Benign essential hypertension I10. 12/25/2023 TRACY VILLANUEVA POLYPS, COLON/LG BOWEL (BENIGN MAEGAN 10/31/2013 JOVANY NAYLOR Tobacco use (SNOMED CT 340760179) Z 02/20/2024 GUSTAVO MCKEON BMI: 25.7 SUBSTANCE [...] 5 mg at HS for sleep - [facility] Sleep medicine - Cardiology - Hematology F/U [...] Resources Only: E911 (Emergency Call Relay Center): [phone] [place] Crisis Line - ([phone]) press #1. OFELIA Suicide Coordinator ? [phone], Ext. [phone]; Back-up Ext. [phone] Club Lounge Attendant of the Day(AOD), Sabi GILBERT ? [phone], Ext. [phone] Introduction: Visit is being conducted by [place] [facility]. [place] identified with 2 identifiers: [X] Full Name [X] Date of [ ] VA ID Card Emergency Plan: confirmed and/or provided the following information in case of emergency or technology failure. [place]'s present location and address for appointment: Located at home address as in CPRS 's emergency contact name and phone number: Emergency contact as per listed in chart [place] reported that location is private and safe: Yes Informed Consent: informed of the risks and benefits of Telehealth video care. has the right to refuse video services. If refuses video visit, a [id number] visit will be scheduled. verbalized consent for this video visit: Yes [place] provided consent for any other persons present for visit: Yes If yes, who and relationship to patient: Secure visit: Visit was locked for security and privacy:Yes __ _ __ Suicide Screen: C-SSRS Screening [place]-Suicide Severity Rating Scale (C-SSRS Screener) 1. Over [...] Signed: 04/30/2024 09:00 [facility]
--- OUTSIDE RECORDS SUMMARY | 2024-10-30 10:01 | XMS_ITS | Encounter Summary ---
Author Name [facility] [place] [facility] [place] Address [address] [place] [address] Care Team Providers Care Hearing Aid Assistant Name Role Phone TRACY VILLANUEVA Primary [...] PHI MEDEX BRONZ E December 19, 2013 [id number] GUSTAVO ARAMBULA SR PATIENT [employer] MEDICARE SUPPLEMEN PHI MEDIC ARE SUPPL EMENT Jul 21, 2007 NONE [id number] [phone] Edgar ARAMBULA PATIENT [place] MEDICARE SUPPLEMEN PHI MEDEX BRONZ E December 19, 2013 [id number] GUSTAVO ARAMBULA SR PATIENT [place] OF [place] ([place]) MEDICARE SUPPLEMEN PHI MEDEX BRONZ E December 19, 2013 [id number] Edgar ARAMBULA [place] PATIENT MEDICARE (WNR) MEDICARE (M) PART A Oct 19, 2004 PART A [id number] [phone] Edgar ARAMBULA [place] PATIENT MEDICARE (WNR) MEDICARE (M) PART B Oct 19, 2004 PART B [id number] Edgar ARAMBULA [place] PATIENT MEDICARE (WNR) MEDICARE (M) PART A Oct 19, 2004 PART A [id number] [phone] Edgar ARAMBULA [place] PAT[place] MEDICARE (WNR) MEDICARE (M) PART B Oct 19, 2004 PART B [id number] Edgar ARAMBULA [place] PAT[place] MEDICARE ([place]) MEDICARE (M) PART A Oct 19, 2004 PART A [id number] Edgar ARAMBULA [place] PAT[place] MEDICARE (WNR) MEDICARE () PART B Oct 19, 2004 PART B [id number] Edgar ARAMBULA [place] PAT[place] MEDICARE (WNR) MEDICARE () PART A Oct 19, 2004 PART A [id number] Edgar ARAMBULA [place] PAT[place] MEDICARE (WNR) MEDICARE () PART B Oct 19, 2004 PART B [id number] FILEMONEEdgar [place] PATIENT MEDICARE (W[place]) MEDICARE () PART A Oct 19, 2004 PART A [id number] [phone] Edgar ARAMBULA [place] PATIENT MEDICARE (WNR) MEDICARE () PART B Oct 19, 2004 PART B [id number] Edgar ARAMBULAN PATIENT Selected Encounter This [...] Major depressive disorder, recurrent, unspecified JOSEY COLINDRES [place] [facility] [facility] Apr 05, 2024 04:02 PM SECONDARY Other insomnia COLINDRESJOSEY [place] [facility] Plan of Treatment: Future Appointments (+ 6 [...] 08, 2024 09:30 AM AMBULATORY - MEDICINE [place] [facility] [place] [facility] Apr 10, 2024 10:45 AM AMBULATORY - MEDICINE [place] [facility] [place] [facility] Apr 26, 2024 11:00 AM AMBULATORY - MEDICINE [place] [facility] [place] [facility] Apr 30, 2024 08:30 AM AMBULATORY - PSYCHIATRY [facility] [facility] May 01, 2024 11:00 AM AMBULATORY - NONE [facility] [place] [facility] May 14, 2024 11:30 [facility] May 31, 2024 11:00 AM AMBULATORY - REHAB MEDICIN E [facility] [place] [facility] May 31, 2024 12:00 PM AMBULATORY - MEDICINE [place] [facility] [place] [place] [facility] Jun 10, 2024 10:00 AM AMBULATORY - MEDICINE [facility] Jun 11, 2024 09:30 AM AMBULATORY - PSYCHIATRY [facility] [facility] Jun 13, 2024 10:00 AM AMBULATORY - MEDICINE [facility] [place] [facility] Jun 19, 2024 11:00 AM AMBULATORY - NONE [facility] [place] [facility] Jun 21, 2024 09:00 AM AMBULATORY - MEDICINE [facility] [place] [facility] Jun 21, 2024 09:15 AM AMBULATORY - MEDICINE [place] [facility] [place] [facility] Jun 21, 2024 09:30 AM AMBULATORY - MEDICINE [place] [facility] [place] [facility] Jun 26, 2024 08:00 AM AMBULATORY - MEDICINE [facility] [place] [facility] Jul 05, 2024 09:00 AM AMBULATORY - REHAB MEDICIN E [facility] [facility] Jul 30, 2024 09:30 AM AMBULATORY - PSYCHIATRY [facility] [facility] Aug 05, 2024 09:45 AM AMBULATORY - MEDICINE [place] [facility] [place] [facility] Aug 28, 2024 10:00 AM AMBULATORY - [facility] Lab Results: +/- 30 days of the [...] Range Comment Apr 25, 2024 07:51 AM [facility] HEMOGLOBIN A1C PANEL Specimen Type: BLOOD Comment: [...] Feb 13, 2024 02:36 PM Reporting [facility] [place] [facility] [address] [facility] [address] Performing Lab: [facility] [address] [facility] [address] HEMOGLOBIN A1C 6.8 H 4.0-5.6 Apr 25, 2024 07:51 AM [facility] MICROALBUMIN CREATININE RATIO PANEL Spe cimen Type: URINE No comment entered. Ordering Provider: TRACY VILLANUEVA Report Released Date/Time: Feb 13, 2024 02:36 PM Reporting Lab: [facility] [address] Performing Lab: [address] [address] MICROALBUMIN/C REATININE RATIO 16.0 mg/g 0-29.9 MICROALBUMIN,Q UANTITATIVE 2.3 mg/dL RR UNAVAIL CREATININE URINE 143.92 mg/dL Apr 25, 2024 07:51 AM [facility] BASIC METABOLIC PANEL (non-fasting) Spe cimen Type: SERUM No comment entered. Ordering Provider: TRACY VILLANUEVA Report Released Date/Time: Feb 13, 2024 02:36 PM Reporting Lab: [address] [address] Performing Lab: [address] [address] UREA NITROGEN 15 mg/dL 7-25 GLUCOSE 173 mg/dL H 65-100 SODIUM 133 mmol/L L 135-145 POTASSIUM 4.2 mmol/L 3.5-5.0 CHLORIDE 100 mmol/L 100-110 CO2 22 meq/L 20-30 CREATININE, Serum 0.74 mg/dL 0.50-1.40 eGFR(CKD-EPI 2020) 89 mL/min >60 Apr 15, 2024 08:39 AM [facility] LIVER FUNCTION Specimen Type: SERUM No comment entered. Ordering Provider: TRACY VILLANUEVA Report Released Date/Time: Apr 09, 2024 09:19 AM Reporting Lab: [address] [address] Performing Lab: [address] [address] PROTEIN,TOTAL 7.3 g/dL 6.0-8.3 ALBUMIN 4.5 g/dL 3.5-5.0 ALKALINE PHOSPHATASE 62 U/L 40-150 AST 35 U/L H 5-34 ALT 27 U/L BILIRUBIN, TOTAL 2.5 mg/dL H 0.2-1.2 BILIRUBIN, DIRECT 0.7 mg/dL H 0-0.5 Apr 15, 2024 08:39 AM [facility] HEMOGLOBIN A1C PANEL Specimen Type: BLOOD Comment: [...] Apr 09, 2024 09:19 AM Reporting Lab: [address] [address] Performing Lab: [address] [address] HEMOGLOBIN A1C 6.3 H 4.0-5.6 Apr 15, 2024 08:39 AM [facility] BASIC METABOLIC PANEL (fasting) Specime n Type: SERUM No comment entered. Ordering Provider: TRACY VILLANUEVA Report Released Date/Time: Apr 09, 2024 09:19 AM Reporting Lab: [address] [address] Performing Lab: [address] [address] UREA NITROGEN 9 mg/dL 7-25 GLUCOSE 159 mg/dL H 65-100 SODIUM 116 mmol/L LL 135-145 POTASSIUM 3.4 mmol/L L 3.5-5.0 CHLORIDE 81 mmol/L L 100-110 CO2 23 meq/L 20-30 CREATININE, Serum 0.69 mg/dL 0.50-1.40 eGFR(CKD-EPI 2020) >90 mL/min >60 Apr 15, 2024 08:39 AM [facility] LIPID PANEL FASTING Specimen Type: SERUM No comment entered. Ordering Provider: TRACY VILLANUEVA Report Released Date/Time: Apr 09, 2024 09:19 AM Reporting Lab: [address] [address] Performing Lab: [address] [address] CHOLESTEROL 137 mg/dL TRIGLYCERIDE 63 mg/dL 0-150 LDL calculated 63 mg/dL 0-129 CHOL/HDL 2.2 HDL CHOLESTEROL 61 mg/dL H 40-60 Apr 15, 2024 08:39 AM [facility] MICROALBUMIN CREATININE RATIO PANEL Spe cimen Type: URINE No comment entered. Ordering Provider: TRACY VILLANUEVA Report Released Date/Time: Apr 09, 2024 09:19 AM Reporting Lab: [address] [address] Performing Lab: [address] [address] MICROALBUMIN/C REATININE RATIO 83.0 mg/g H 0-29.9 MICROALBUMIN,Q UANTITATIVE 16.8 mg/dL RR UNAVAIL CREATININE URINE 202.40 mg/dL Apr 15, 2024 08:39 AM [facility] VITAMIN D (25-OH) Specimen Type: SERUM No comment entered. Ordering Provider: TRACY VILLANUEVA Report Released Date/Time: Apr 09, 2024 09:19 AM Reporting Lab: [address] [address] Performing Lab: [address] [address] VITAMIN D (25-OH) 49 ng/mL 20-50 Apr 15, 2024 08:39 AM [facility] CBC Specimen Type: BLOOD Comment: MCHC >36, SPECIMEN 1+ ICTERIC, QNS FOR PLASMA REPLACEMENT INTERPRET RESULTS WITH CAUTION, SUGGEST PROPER REDRAW SHORT DRAW Ordering Provider: TRACY VILLANUEVA Report Released Date/Time: Apr 09, 2024 09:19 AM Reporting Lab: [address] [address] Performing Lab: [address] [address] WBC 8.70 10*3/uL 4.50-11.00 RBC 4.75 10*6/uL [...] took place. Date/Time Current Smoking Status Comment [facility] it December 25, 2023 09:05 AM VA-TOBACCO NEVER USED [facility] [place] [facility] Tobacco Use History This section includes a history of the smoking, or tobacco-related health factors, that were collected on or before the date of the Encounter. The data comes from the [place] facility where the Encounter took place. Date/Time Smoking Status/Tobac co Use Comment Facility Dec 13, 2022 03:00 PM VA-TOBACCO DOESNT USE WI 30 MIN WAKEUP [facility] [place] [facility] Dec 13, 2022 03:00 PM VA-TOBACCO USE 30 YEARS OR MORE [facility] [place] [facility] Dec 13, 2022 03:00 PM VA-TOBACCO USE ADVICE [facility] [facility] Dec 13, 2022 03:00 PM VA-TOBACCO USE TRIM SAWYER NO [facility] [facility] Dec 13, 2022 03:00 PM VA-TOBACCO USE MED NO [facility] [facility] Dec 13, 2022 03:00 PM VA-TOBACCO USER EVERY DAY [facility] [facility] Nov 17, 2021 10:00 AM VA-TOBACCO USE 30 YEARS OR MORE [facility] [place] [facility] Nov 17, 2021 10:00 AM VA-TOBACCO USE ADVICE [facility] [facility] Nov 17, 2021 10:00 AM VA-TOBACCO USE TRIM SAWYER NO [facility] [facility] Nov 17, 2021 10:00 AM VA-TOBACCO USE MED NO [facility] [facility] Nov 17, 2021 10:00 AM VA-TOBACCO USE WI 30 MIN OF WAKEUP [facility] [facility] Nov 17, 2021 10:00 AM VA-TOBACCO USER EVERY DAY [facility] [facility] Oct 14, 2013 12:55 PM V1-PT NOT INTERESTED IN QUIT TOBACCO [facility] May 07, 2013 05:04 PM CURRENT SMOKER trying to stop [facility] May 07, 2013 05:04 PM V1-PT DECLINES REF TO TOBACCO CESS PR[facility] May 07, 2013 05:04 PM V1-PT DECLINES TOBACCO CESSATION MEDS [facility] May 07, 2013 05:04 PM V1-PT READY TO QUIT TOBACCO USE [facility]TR [facility] Dec 03, 2012 08:23 AM V1-PT DECLINES REF TO TOBACCO CESS PRGM [facility] Dec 03, 2012 08:23 AM V1-PT DECLINES TOBACCO CESSATION MEDS [facility] Dec 03, 2012 08:23 AM V1-PT THINKING ABOUT QUIT TOBACCO USE [facility] Jun 05, 2012 08:45 AM CURRENT SMOKER 1/2ppd [facility] Jun 05, 2012 08:45 AM V1-PT DECLINES REF TO TOBACCO CESS PRGM [facility] Jun 05, 2012 08:45 AM V1-PT THINKING ABOUT QUIT TOBACCO USE [facility] Jun 05, 2012 08:45 AM V1-TOBACCO CESS MEDS NOT PRESCRIBED Vet wants to talk to his provider-He is nervous about taking meds to quit- but he is interested in quitting [facility] Nov 25, 2011 09:14 AM V1-PT DECLINES REF TO TOBACCO CESS PRGM [facility] Nov 25, 2011 09:14 AM V1-PT DECLINES TOBACCO CESSATION MEDS [facility] Nov 25, 2011 09:14 AM V1-PT THINKING ABOUT QUIT TOBACCO USE [facility] May 06, 2011 01:02 PM CURRENT SMOKER [facility] May 06, 2011 01:02 PM V1-PT DECLINES TOBACCO CESSATION MEDS [facility] May 06, 2011 01:02 PM V1-PT NOT INTERESTED IN QUIT TOBACCO USE [facility] [place] [facility] Sep 24, 2010 08:51 AM V1-PT DECLINES TOBACCO CESSATION MEDS [facility] [facility] Sep 24, 2010 08:51 AM V1-PT THINKING ABOUT QUIT TOBACCO USE [facility] [place] [facility] Mar 22, 2010 07:58 AM CURRENT SMOKER 1/2 ppd [facility] [facility] Feb 25, 2009 12:05 PM QUIT TOBACCO USE IN PAST YEAR [facility] [facility] Aug 26, 2008 09:28 AM CURRENT SMOKER 1/2 ppd [facility] [place] [facility] Aug 26, 2008 09:28 AM V1-PT DECLINES REF TO TOBACCO CESS PR[facility] [place] [place] [facility] Aug 26, 2008 09:28 AM V1-PT READY TO QUIT TOBACCO USE [facility] [place] [place] [facility] Dec 19, 2007 10:08 AM V1-PT DECLINES REF TO TOBACCO CESS PRGM [facility] [place] [place] [facility] Dec 19, 2007 10:08 AM V1-PT DECLINES TOBACCO CESSATION MEDS [facility] [place] [place] [facility] Dec 19, 2007 10:08 AM V1-PT THINKING ABOUT QUIT TOBACCO USE [facility] [place] [facility] Sep 11, 2007 11:10 AM CURRENT SMOKER [facility] [place] [facility] Sep 11, 2007 11:10 AM V1-PT DECLINES REF TO TOBACCO CESS PRGM [facility] [place] [place] [facility] Sep 11, 2007 11:10 AM V1-PT DECLINES TOBACCO CESSATION MEDS [facility] [place] [facility] Sep 11, 2007 11:10 AM V1-PT THINKING ABOUT QUIT TOBACCO USE [facility] [place] [place] [facility] Feb 13, 2007 01:46 PM V1-PT DECLINES REF TO TOBACCO CESS PR[facility] [place] [place] [facility] Feb 13, 2007 01:46 PM V1-PT DECLINES TOBACCO CESSATION MEDS [facility] [place] [facility] Feb 13, 2007 01:46 PM V1-PT THINKING ABOUT QUIT TOBACCO USE [facility] [place] [facility] Oct 02, 2006 08:28 AM QUIT TOBACCO USE IN PAST YEAR 3 months ago [facility] Aug 19, 2005 08:33 AM QUIT TOBACCO USE IN PAST YEAR nonsmoker [facility] Sep 21, 2004 09:54 AM CURRENT SMOKER [facility] Sep 07, 2004 08:07 AM CURRENT SMOKER [facility] Sep 15, 2003 11:21 AM [...] Apr 10, 2023 ADVANCE DIRECTIVE ESSIE STARK [facility] Apr 19, 2007 ADVANCE DIRECTIVE [facility] Encounter Notes: All associated encounter notes This section contains the clinical notes associated to the Encounter. 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 [facility] ([facility]) Standard Documentation [facility] Clinician Resources Only: E911 (Emergency Call Relay Center): [phone] [facility] Crisis Line - ([phone]) press #1. OFELIA Suicide Coordinator ? [phone], Ext. [phone]; Back-up Ext. [phone] [employer] of the Day(AOD), Sabi GILBERT ? [phone], Ext. [phone] Introduction: Visit is being conducted by [employer]. [place] identified with 2 identifiers: [X] Full Name [X] Date of [ ] VA ID Card Emergency Plan: [place] confirmed and/or provided the following information in case of emergency or technology failure. [place]'s present location and address for appointment: Located at home address as in CPRS [place]'s emergency contact name and phone number: Emergency contact as per listed in chart reported that location is private and safe: Yes Informed Consent: [place] informed of the risks and benefits of Telehealth video care. [place] has the right to refuse video services. If refuses video visit, a [id number] visit will be scheduled. [place] verbalized consent for this video visit: Yes [place] provided consent for any other persons present for visit: Yes If yes, who and relationship to patient: Secure visit: Visit was locked for security and privacy:Yes __ _ __ /reginaldo/ LANA COLINDRES PSYCHIATRIST Signed: 04/05/2024 16:03 LANA COLINDRES [place] [facility]
--- OUTSIDE RECORDS SUMMARY | 2024-10-30 10:01 | XMS_ITS | Encounter Summary ---
Author Name [facility] [place] Organization [facility] [place] Address [address] [place] [address] Care Team Providers Care Umbrella Finisher Name Role Phone TRACY VILLANUEVA Primary Care [...] PHI MEDEX BRONZ E December 19, 2013 [id number] GUSTAVO ARAMBULA SR PATIENT [employer] MEDICARE SUPPLEMEN PHI MEDIC ARE SUPPL EMENT Jul 21, 2007 NONE [id number] [phone] Edgar ARAMBULA PATIENT [place] SUPPLEMEN PHI MEDEX BRONZ E December 19, 2013 [id number] GUSTAVO ARAMBULA SR PATIENT [place] MEDICARE SUPPLEMEN PHI MEDEX BRONZ E December 19, 2013 [id number] [phone] Edgar ARAMBULA PATIENT MEDICARE (WNR) MEDICARE (M) PART A Oct 19, 2004 PART A [id number] [id number] Edgar ARAMBULAN PATIENT MEDICARE (WNR) MEDICARE (M) PART B Oct 19, 2004 PART B [id number] Edgar ARAMBULAN PATIENT MEDICARE (WNR) MEDICARE (M) PART A Oct 19, 2004 PART A [id number] Edgar ARAMBULAN PATIENT MEDICARE (WNR) MEDICARE () PART B Oct 19, 2004 PART B [id number] Edgar ARAMBULAN PATIENT MEDICARE (WNR) MEDICARE () PART A Oct 19, 2004 PART A [id number] Edgar ARAMBULAN PATIENT MEDICARE (WNR) MEDICARE () PART B Oct 19, 2004 PART B [id number] [phone] Edgar ARAMBULAN PATIENT MEDICARE (WNR) MEDICARE () PART A Oct 19, 2004 PART A [id number] [phone] Edgar ARAMBULAN PATIENT MEDICARE (WNR) MEDICARE () PART B Oct 19, 2004 PART B [id number] [phone] Edgar ARAMBULAN PATIENT MEDICARE (WNR) MEDICARE () PART A Oct 19, 2004 PART A [id number] Edgar ARAMBULA PATIENT MEDICARE (WNR) MEDICARE () PART B Oct 19, 2004 PART B [id number] [phone] Edgar ARAMBULA PATIENT Selected Encounter This section includes the information on record at CT for the Encounter. Date/Time Encounter Type Encounter Description Reason Pro vider Source Mar 12, 2024 11:30 AM Outpatient Encounter PRIMARY CARE/MEDICINE IHE Encounter Template Text not used by CT Plan of Treatment: Future Appointments (+ 6 [...] AMBULATORY - [facility]CHIATRY [facility] [place] [facility] Apr 08, 2024 09:30 AM AMBULATORY [facility] MEDICINE [facility] [place] [facility] Apr 10, 2024 10:45 AM AMBULATORY [facility] MEDICINE [facility] [place] [facility] Apr 26, 2024 11:00 AM AMBULATORY - MEDICINE [facility] [place] [facility] Apr 30, 2024 08:30 AM AMBULATORY - PSYCHIATRY [facility] [place] [facility] May 01, 2024 11:00 AM AMBULATORY - NONE [facility] [place] [facility] May 14, 2024 11:30 AM AMBULATORY - MEDICINE [facility] May 31, 2024 11:00 AM AMBULATORY - REHAB MEDICIN E [facility] [place] [facility] May 31, 2024 12:00 PM AMBULATORY - MEDICINE [facility] [place] [facility] Jun 10, 2024 10:00 AM [facility] Jun 11, 2024 09:30 AM AMBULATORY - PSYCHIATRY [facility] [place] [facility] Jun 13, 2024 10:00 AM AMBULATORY - MEDICINE [facility] [place] [facility] Jun 19, 2024 11:00 AM AMBULATORY - NONE [facility] [place] [facility] Jun 21, 2024 09:00 AM AMBULATORY - MEDICINE [facility] [place] [facility] Jun 21, 2024 09:15 AM AMBULATORY - MEDICINE [facility] [place] [facility] Jun 21, 2024 09:30 AM AMBULATORY - MEDICINE [facility] [place] [facility] Jun 26, 2024 08:00 AM AMBULATORY - MEDICINE [facility] [place] [facility] Jul 05, 2024 09:00 AM AMBULATORY - REHAB MEDICIN E [facility] [place] [facility] Jul 30, 2024 09:30 AM AMBULATORY - PS[facility]CHIATRY [facility] [place] [facility] Aug 05, 2024 09:45 AM AMBULATORY - MEDICINE [facility] Social History: Smoking Status (Most current) [...] 2023 09:00 AM VA-TOBACCO USER EVERY DAY [place] Tobacco Use History This section includes a history of the smoking, or tobacco-related health factors, that were collected on or before the date of the Encounter. The data comes from the CT facility where the Encounter took place. Date/Time Smoking Status/Tobacco Use Comment F acility December 25, 2023 09:00 AM VA-TOBACCO USE ADVICE [place] December 25, 2023 09:00 AM VA-TOBACCO USE INTERNAL REVIEW AND AUDIT COMPLIANCE NO [place] December 25, 2023 09:00 AM VA-TOBACCO USE MED NO [place] December 25, 2023 09:00 AM VA-TOBACCO USE WI 30 MIN OF WAKE UP [place] December 25, 2023 09:00 AM VA-TOBACCO USER EVERY DAY [place] Advance Directives: All historical and current Section [...] Apr 10, 2023 ADVANCE DIRECTIVE E[address]IE STARK [address] [facility] Apr 19, 2007 [facility] Radiology Reports: +/- 30 days [...] the Encounter. The data comes from all CT treatment facilities. 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 1019 images were received by the CT National Teleradiology Program (NTP) for interpretation. RADIATION [...] as above. READING PHYSICIAN: Ck Jean M.D. -[id number] 02/20/2024 12:57 PDT [facility] National Teleradiology Program [phone] (For Medical Practitioner Use Only) Attention Patients / Veterans: If you have questions or concerns about these test results, please contact your ordering provider or primary care team. Primary Diagnostic Code: SIGNIFICANT ABNORMALITY, ATTN NEEDED Primary Interpreting Staff: RADIOLOGY,OUTSIDE SERVICE, Staff Physician / RADIOLOGY,OUTSIDE SERVICE [facility] [place] [facility] Encounter Notes: All associated encounter [...] AUTHOR: RABIA MANN COSIGNER: URGENCY: STATUS: COMPLETED Furniture Repair Technician called to [ ] Schedule primary care appt [X] Reschedule primary care appt.03/11/2024@0900 [X} Remind of upcoming primary care appt. SPOKE WITH: Barnett [ ] Fasting blood work needed, and vet reminded. [ ] Non fasting blood work needed, and vet reminded. [X} No labs needed. /reginaldo/ RABIA MANN ADVANCED CRIMINAL JUSTICE TEACHER Signed: 03/08/2024 14:04 RABIA MANN Feb 20, [...] malignancy /es/ GUSTAVO MCKEON PA-C STAFF PHYSICIAN GEOPHYSICS PROFESSOR Signed: 02/20/2024 16:25 GUSTAVO MCKEONFIELD
--- OUTSIDE RECORDS SUMMARY | 2024-10-30 10:02 | XMS_ITS | Encounter Summary ---
Author Name [facility] [place] [facility] [place] Address [address] [place] [address] Care Team Providers Care Sweatband Shaper Name Role Phone TRACY VILLANUEVA Primary Care [...] PHI MEDEX BRONZ E December 19, 2013 [id number] GUSTAVO GUZMAN SR PATIENT [employer] CASUAL[employer] MEDICARE SUPPLEMEN PHI MEDIC ARE SUPPL EMENT Jul 21, 2007 NONE [id number] Edgar GUZMAN PATIENT [place] SUPPLEMEN PHI MEDEX BRONZ E December 19, 2013 [id number] [phone] GUSTAVO GUZMAN SR PATIENT [place] MEDICARE SUPPLEMEN PHI MEDEX BRONZ E December 19, 2013 [id number] [phone] Edgar GUZMAN [place] PATIENT MEDICARE (WNR) MEDICARE (M) PART A Oct 19, 2004 PART A [id number] Edgar GUZMAN [place] PATIENT MEDICARE (WNR) MEDICARE (M) PART B Oct 19, 2004 PART B [id number] [phone] [id number] Edgar GUZMAN [place] PATIENT MEDICARE (WNR) MEDICARE (M) PART A Oct 19, 2004 PART A [id number] [phone] Edgar GUZMAN [place] PATIENT MEDICARE ([place]) MEDICARE (M) PART B Oct 19, 2004 PART B [id number] Edgar GUZMAN [place] PATIENT MEDICARE ([place]) MEDICARE (M) PART B Oct 19, 2004 PART B [id number] Edgar GUZMAN [place] PAT[place] MEDICARE ([place]) MEDICARE () PART A Oct 19, 2004 PART A [id number] Edgar GUZMAN [place] PAT[place] MEDICARE ([place]) MEDICARE () PART A Oct 19, 2004 PART A [id number] Edgar GUZMAN [place] PAT[place] MEDICARE ([place]) MEDICARE () PART B Oct 19, 2004 PART B [id number] FILEMONEEdgar [place] PATIENT MEDICARE (WNR) MEDICARE () PART A Oct 19, 2004 PART A [id number] [phone] Edgar GUZMAN [place] PATIENT MEDICARE ([place]NR) MEDICARE (M) PART B Oct 19, 2004 PART B [id number] Edgar GUZMANN PATIENT Selected Encounter This [...] YOLIECATHYANABELL,S ETH B [facility] Apr 08, 2024 10:03 AM SECONDARY Generalized anxiety disorder YOLIESCHANABELL,S ETH B [facility] Apr 08, 2024 10:03 AM SECONDARY Sleep apnea, unspecified ERROL,S ETH B [place] [facility] Plan of Treatment: Future Appointments (+ 6 months) and Future Tests (+/- 45 days) The Plan of Treatment section includes future care activities for the patient from all [place] [facility]. This section includes future appointments and [...] - MEDICINE [facility] Apr 26, 2024 11:00 AM AMBULATORY - MEDICINE [facility] Apr 30, 2024 08:30 AM AMBULATORY - PSYCHIATRY [facility] May 01, 2024 11:00 AM AMBULATORY - NONE [facility] May 14, 2024 11:30 AM AMBULATORY - MEDICINE [facility] May 31, 2024 11:00 AM AMBULATORY - REHAB MEDICIN E [facility] May 31, 2024 12:00 PM AMBULATORY - MEDICINE [facility] Jun 10, 2024 10:00 AM [facility] Jun 11, 2024 09:30 AM AMBULATORY - PSYCHIATRY [facility] Jun 13, 2024 10:00 AM AMBULATORY - MEDICINE [facility] Jun 19, 2024 11:00 AM AMBULATORY - NONE [facility] Jun 21, 2024 09:00 AM AMBULATORY - MEDICINE [facility] Jun 21, 2024 09:15 AM AMBULATORY - MEDICINE [facility] Jun 21, 2024 09:30 AM AMBULATORY - MEDICINE [facility] Jun 26, 2024 08:00 AM AMBULATORY - MEDICINE [facility] Jul 05, 2024 09:00 AM AMBULATORY - REHAB MEDICIN E [facility] Jul 30, 2024 09:30 AM AMBULATORY - PSYCHIATRY [facility] Aug 05, 2024 09:45 AM AMBULATORY - MEDICINE [facility] Aug 28, 2024 10:00 AM AMBULATORY - MEDICINE [place] [facility] Aug 28, 2024 10:30 AM AMBULATORY - MEDICINE [place] [facility] Lab Results: +/- 30 days [...] Range Comment Apr 25, 2024 07:51 AM [facility] HEMOGLOBIN A1C PANEL Specimen Type: BLOOD Comment: [...] 13, 2024 02:36 PM Reporting [facility] [address] [facility] [address] Performing Lab: [facility] [address] [facility] [address] HEMOGLOBIN A1C 6.8 H 4.0-5.6 Apr 25, 2024 07:51 AM [facility] MICROALBUMIN CREATININE RATIO PANEL Spe cimen Type: URINE No comment entered. Ordering Provider: TRACY VILLANUEVA Report Released Date/Time: Feb 13, 2024 02:36 PM Reporting Lab: [facility] [address] [facility] [address] Performing Lab: [address] [address] MICROALBUMIN/C REATININE RATIO 16.0 mg/g 0-29.9 MICROALBUMIN,Q UANTITATIVE 2.3 mg/dL RR UNAVAIL CREATININE URINE 143.92 mg/dL Apr 25, 2024 07:51 AM [facility] BASIC METABOLIC PANEL (non-fasting) Spe cimen Type: SERUM No comment entered. Ordering Provider: TRACY VILLANUEVA Report Released Date/Time: Feb 13, 2024 02:36 PM Reporting Lab: [facility] [address] [facility] [address] Performing Lab: [address] [address] UREA NITROGEN 15 mg/dL 7-25 GLUCOSE 173 mg/dL H 65-100 SODIUM 133 mmol/L L 135-145 POTASSIUM 4.2 mmol/L 3.5-5.0 CHLORIDE 100 mmol/L 100-110 CO2 22 meq/L 20-30 CREATININE, Serum 0.74 mg/dL 0.50-1.40 eGFR(CKD-EPI 2020) 89 mL/min >60 Apr 15, 2024 08:39 AM [facility] HEMOGLOBIN A1C PANEL Specimen Type: BLOOD Comment: [...] Apr 09, 2024 09:19 AM Reporting Lab: [facility] [address] [address] Performing Lab: [address] [address] HEMOGLOBIN A1C 6.3 H 4.0-5.6 Apr 15, 2024 08:39 AM [facility] MICROALBUMIN CREATININE RATIO PANEL Spe cimen Type: URINE No comment entered. Ordering Provider: TRACY VILLANUEVA Report Released Date/Time: Apr 09, 2024 09:19 AM Reporting Lab: [address] [address] Performing Lab: [address] [address] MICROALBUMIN/C REATININE RATIO 83.0 mg/g H 0-29.9 MICROALBUMIN,Q UANTITATIVE 16.8 mg/dL RR UNAVAIL CREATININE URINE 202.40 mg/dL Apr 15, 2024 08:39 AM [facility] LIPID PANEL FASTING Specimen Type: SERUM No comment entered. Ordering Provider: TRACY VILLANUEVA Report Released Date/Time: Apr 09, 2024 09:19 AM Reporting Lab: [address] [address] Performing Lab: [address] [address] CHOLESTEROL 137 mg/dL TRIGLYCERIDE 63 mg/dL 0-150 LDL calculated 63 mg/dL 0-129 CHOL/HDL 2.2 HDL CHOLESTEROL 61 mg/dL H 40-60 Apr 15, 2024 08:39 AM [facility] BASIC METABOLIC PANEL (fasting) Specime n Type: SERUM No comment entered. Ordering Provider: TRACY VILLANUEVA Report Released Date/Time: Apr 09, 2024 09:19 AM Reporting Lab: [address] [address] Performing Lab: [address] [address] UREA NITROGEN 9 mg/dL 7-25 GLUCOSE 159 mg/dL H 65-100 SODIUM 116 mmol/L LL 135-145 POTASSIUM 3.4 mmol/L L 3.5-5.0 CHLORIDE 81 mmol/L L 100-110 CO2 23 meq/L 20-30 CREATININE, Serum 0.69 mg/dL 0.50-1.40 eGFR(CKD-EPI 2020) >90 mL/min >60 Apr 15, 2024 08:39 AM [facility] LIVER FUNCTION Specimen Type: SERUM No comment entered. Ordering Provider: TRACY VILLANUEVA Report Released Date/Time: Apr 09, 2024 09:19 AM Reporting Lab: [address] [address] Performing Lab: [address] [address] PROTEIN,TOTAL 7.3 g/dL 6.0-8.3 ALBUMIN 4.5 g/dL 3.5-5.0 ALKALINE PHOSPHATASE 62 U/L 40-150 AST 35 U/L H 5-34 ALT 27 U/L BILIRUBIN, TOTAL 2.5 mg/dL H 0.2-1.2 BILIRUBIN, DIRECT 0.7 mg/dL H 0-0.5 Apr 15, 2024 08:39 AM [facility] VITAMIN D (25-OH) Specimen Type: SERUM No comment entered. Ordering Provider: TRACY VILLANUEVA Report Released Date/Time: Apr 09, 2024 09:19 AM Reporting Lab: [address] [address] Performing Lab: [address] [address] VITAMIN D (25-OH) 49 ng/mL 20-50 Apr 15, 2024 08:39 AM [facility] CBC Specimen Type: BLOOD Comment: MCHC >36, SPECIMEN 1+ ICTERIC, QNS FOR PLASMA REPLACEMENT INTERPRET RESULTS WITH CAUTION, SUGGEST PROPER REDRAW SHORT DRAW Ordering Provider: TRACY VILLANUEVA Report Released Date/Time: Apr 09, 2024 09:19 AM Reporting Lab: [address] [address] Performing Lab: [address] [address] WBC 8.70 10*3/uL 4.50-11.00 RBC 4.75 10*6/uL [...] place. Date/Time Current Smoking Status Comment [facility] December 25, 2023 09:05 AM VA-TOBACCO NEVER USED [place] [facility] Tobacco Use History This section includes a history of the smoking, or tobacco-related health factors, that were collected on or before the date of the Encounter. The data comes from the [place] facility where the Encounter took place. Date/Time Smoking Status/Tobac co Use Comment Facility Dec 13, 2022 03:00 PM VA-TOBACCO DOESNT USE WI 30 MIN WAKEUP [facility] Dec 13, 2022 03:00 PM VA-TOBACCO USE 30 YEARS OR MORE [facility] Dec 13, 2022 03:00 PM VA-TOBACCO USE ADVICE [facility] Dec 13, 2022 03:00 PM VA-TOBACCO USE COVER SEAMER NO [facility] Dec 13, 2022 03:00 PM VA-TOBACCO USE MED NO [facility] Dec 13, 2022 03:00 PM VA-TOBACCO USER EVERY DAY [facility] Nov 17, 2021 10:00 AM VA-TOBACCO USE 30 YEARS OR MORE [facility] Nov 17, 2021 10:00 AM VA-TOBACCO USE ADVICE [facility] Nov 17, 2021 10:00 AM VA-TOBACCO USE COVER SEAMER NO [facility] Nov 17, 2021 10:00 AM VA-TOBACCO USE MED NO [facility] Nov 17, 2021 10:00 AM VA-TOBACCO USE WI 30 MIN OF WAKEUP [facility] Nov 17, 2021 10:00 AM VA-TOBACCO USER EVERY DAY [facility] Oct 14, 2013 12:55 PM V1-PT NOT INTERESTED IN QUIT TOBACCO USE [facility] May 07, 2013 05:04 PM CURRENT SMOKER trying to stop [facility] May 07, 2013 05:04 PM V1-PT DECLINES REF TO TOBACCO CESS PRGM [facility] May 07, 2013 05:04 PM V1-PT DECLINES TOBACCO CESSATION MEDS [facility] May 07, 2013 05:04 PM V1-PT READY TO QUIT TOBACCO USE [facility] Dec 03, 2012 08:23 AM V1-PT DECLINES REF TO TOBACCO CESS PRGM [facility] Dec 03, 2012 08:23 AM V1-PT DECLINES TOBACCO CESSATION MEDS [facility] Dec 03, 2012 08:23 AM V1-PT THINKING ABOUT QUIT TOBACCO USE [facility] Jun 05, 2012 08:45 AM CURRENT SMOKER 1/2ppd [facility] Jun 05, 2012 08:45 AM V1-PT DECLINES REF TO TOBACCO CESS [facility] Jun 05, 2012 08:45 AM V1-PT THINKING ABOUT QUIT TOBACCO USE [facility] Jun 05, 2012 08:45 AM V1-TOBACCO CESS MEDS NOT PRESCRIBED Vet wants to talk to his provider-He is nervous about taking meds to quit- but he is interested in quitting [facility] Nov 25, 2011 09:14 AM V1-PT DECLINES REF TO TOBACCO CESS PRGM [facility] Nov 25, 2011 09:14 AM V1-PT DECLINES TOBACCO CESSATION MEDS [facility] Nov 25, 2011 09:14 AM V1-PT THINKING ABOUT QUIT TOBACCO USE [facility] May 06, 2011 01:02 PM CURRENT SMOKER [facility] May 06, 2011 01:02 PM V1-PT DECLINES TOBACCO CESSATION MEDS [facility] May 06, 2011 01:02 PM V1-PT NOT INTERESTED IN QUIT TOBACCO USE [facility] Sep 24, 2010 08:51 AM V1-PT DECLINES TOBACCO CESSATION MEDS [facility] Sep 24, 2010 08:51 AM V1-PT THINKING ABOUT QUIT TOBACCO USE [facility] Mar 22, 2010 07:58 AM CURRENT SMOKER 1/2 ppd [facility] Feb 25, 2009 12:05 PM QUIT TOBACCO USE IN PAST YEAR [facility] Aug 26, 2008 09:28 AM CURRENT SMOKER 1/2 ppd [facility] Aug 26, 2008 09:28 AM V1-PT DECLINES REF TO TOBACCO CESS [facility] Aug 26, 2008 09:28 AM V1-PT READY TO QUIT TOBACCO USE [facility] Dec 19, 2007 10:08 AM V1-PT DECLINES REF TO TOBACCO CESS PRGM [facility] Dec 19, 2007 10:08 AM V1-PT DECLINES TOBACCO CESSATION MEDS [facility] Dec 19, 2007 10:08 AM V1-PT THINKING ABOUT QUIT TOBACCO USE [facility] Sep 11, 2007 11:10 AM CURRENT SMOKER [place] [facility] Sep 11, 2007 11:10 AM V1-PT DECLINES REF TO TOBACCO CESS PRGM [facility] Sep 11, 2007 11:10 AM V1-PT DECLINES TOBACCO CESSATION MEDS [facility] Sep 11, 2007 11:10 AM V1-PT THINKING ABOUT QUIT TOBACCO USE [facility] Feb 13, 2007 01:46 PM V1-PT DECLINES REF TO TOBACCO CESS PRGM [facility] Feb 13, 2007 01:46 PM V1-PT DECLINES TOBACCO CESSATION MEDS [facility] Feb 13, 2007 01:46 PM V1-PT THINKING ABOUT QUIT TOBACCO USE [facility] Oct 02, 2006 08:28 AM QUIT TOBACCO USE IN PAST YEAR 3 months ago [facility] Aug 19, 2005 08:33 AM QUIT TOBACCO USE IN PAST YEAR nonsmoker [facility] Sep 21, 2004 09:54 AM CURRENT SMOKER [facility] Sep 07, 2004 08:07 AM CURRENT SMOKER [facility] Sep 15, 2003 11:21 AM CURRENT SMOKER smokes one pk day [facility] Jul 23, 2003 01:57 PM CURRENT SMOKER [facility] Advance Directives: All historical and current Section Date Range: From patient's date of to the date document was created. This section includes ALL of a patient's completed or amended VA Advance and Rescinded Directives. The entries below indicate that a directive exists for the patient, but an actual copy is not included with this document. The data comes from all [place] facilities. Date Advance Directives Provider Source Apr 10, 2023 ADVANCE DIRECTIVE ESSIE STARK [facility] Apr 19, 2007 ADVANCE DIRECTIVE [facility]AMUS[facility] Encounter Notes: All associated encounter notes This section contains the clinical notes associated to the Encounter. Date/Time Encounter Note(s) Provider Source Apr 08, 2024 10:00 AM ACCOUNTING OF DISCLOSURES NOTE: LOCAL TITLE: STATE PRESCRIPTION DRUG MONITORING PROGRAM STANDARD TITLE: ACCOUNTING OF DISCLOSURES NOTE DATE OF NOTE: APR 08, 2024@10:00:54 ENTRY DATE: APR 08, 2024@10:00:54 AUTHOR: JUAQUIN SCHAFFER EXP COSIGNER: URGENCY: STATUS: COMPLETED This PDMP query was submitted by Juaquin Schaffer MD. The clinical justification for this PDMP query is to review controlled substances prescribed outside of the VA, and any additional information that may become available, as an important component of standard clinical care, and in accordance with [facility] policy. Patient information was shared with the PDMP [place]. No prescription(s) for controlled substances outside the VA were found in the last 90 days. /reginaldo/ JUAQUIN SCHAFFER MD PHYSICIAN Signed: 04/08/2024 10:01 JUAQUIN SCHAFFER [facility] Apr 08, 2024 09:33 AM PAIN MEDICINE OUTPATIENT NOTE: LOCAL TITLE: PAIN CLINIC NOTE STANDARD TITLE: PAIN MEDICINE OUTPATIENT NOTE DATE OF NOTE: APR 08, 2024@09:33 ENTRY DATE: APR 08, 2024@09:33:22 AUTHOR: JUAQUIN SCHAFFER EXP COSIGNER: URGENCY: STATUS: COMPLETED Son Gustavo, HCP, . Please call him with appointments and [...] Mr. 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 Reports significant relief. -Continue Butrans 5 mcg/hour SLEEP APNEA Uses CPAP. MOOD, SLEEP Meds per prescriber. Emmaus and I formulated the plan through shared medical-decision making. repeated the plan back to me and had no further questions at end of appointment. APPOINTMENT LENGTH: 30 minutes FOLLOW-UP: 16 weeks 04/10/2024 10:45 [facility] 04/18/2024 09:00 CWM/NO/VVC/MHC/DANIELS1 04/18/2024 13:30 [...] 19. Disorder of lumbar disc (SNOMED CT 975901207) 20. Depression (SNOMED CT 35546746) 21. Dry Eye Syndromes * 22. 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 Localised, primary osteoarthritis 24. Prostate, Malign Neoplasm 25. Cataract, Cortical (Senile) 26. 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 Mixed hyperlipidaemia 28. Benign essential hypertension 29. POLYPS, COLON/LG BOWEL (BENIGN MAEGAN 30. Tobacco use (SNOMED CT 381813771) Appointment length includes time with Emmaus, completing clinical reminders, reviewing relevant information in EMR, review of PDMP, ordering appropriate tests, prescribing medications, coordinating care, and completing the medical record. [place] [facility] ([facility]VC) Standard Documentation [facility] Clinician Resources Only: E911 (Emergency Call Relay Center): [phone] National Veterans Crisis Line - 988 then press #1. CWAscencion Suicide Coordinator [phone], Ext. [phone]; Back-up Ext. [phone] [place] Police, Sabi GILBERT [phone] Introduction: Visit is being conducted by [place] [facility]. Emmaus identified with 2 identifiers: [X] Full Name [X] Date of [ ] VA ID Card Emergency Plan: Emmaus confirmed and/or provided the following information in case of emergency or technology failure. PATIENT PHONE - PHONE NUMBER [CELLULAR] - Is patient phone number correct, if not, enter below: 's phone number: GUSTAVO GUZMAN SR [address], [address] Emmaus's present location and address for appointment: Home 's emergency contact name and phone number: Listed Emmaus reported that location is private and safe: Yes Informed Consent: Emmaus informed of the risks and benefits of Telehealth video care. has the right to refuse video services. If refuses video visit, a vzeo-oy-rkyy visit will be scheduled. verbalized consent for this video visit: Yes Emmaus provided consent for any other persons present for visit: Yes If yes, who and relationship to patient:Elijah Rebolledo Secure visit: Visit was locked for security and privacy:Yes /reginaldo/ JUAQUIN SCHAFFER MD PHYSICIAN Signed: 04/08/2024 10:04 JUAQUIN SCHAFFER [facility]
--- OUTSIDE RECORDS SUMMARY | 2024-10-30 10:02 | XMS_ITS | Encounter Summary ---
Author Name [facility] Address [address] [place] [address] Care Team Providers Care Director Of Casino Marketing Name Role Phone TRACY VILLANUEVA Primary Care [...] PHI MEDEX BRONZ E December 19, 2013 [id number] GUSTAVO ARAMBULA SR PATIENT [employer] MEDICARE SUPPLEMEN PHI MEDIC ARE SUPPL EMENT Jul 21, 2007 NONE [id number] Edgar ARAMBULA PATIENT [place] MED[place]ARE SUPPLEMEN PHI MEDEX BRONZ E December 19, 2013 [id number] GUSTAVO ARAMBULA SR PATIENT [place] MEDICARE SUPPLEMEN PHI MEDEX BRONZ E December 19, 2013 [id number] [phone] Edgar ARAMBULA [place] PATIENT MEDICARE (WNR) MEDICARE (M) PART A Oct 19, 2004 PART A [id number] Edgar ARAMBULA [place] PATIENT MEDICARE (WNR) MEDICARE (M) PART B Oct 19, 2004 PART B [id number] Edgar ARAMBULA [place] PATIENT MEDICARE ([place]NR) MEDICARE (M) PART A Oct 19, 2004 PART A [id number] Edgar ARAMBULA [place] PATIENT MEDICARE ([place]NR) MEDICARE (M) PART B Oct 19, 2004 PART B [id number] Edgar ARAMBULA [place] PATIENT MEDICARE ([place]NR) MEDICARE (M) PART A Oct 19, 2004 PART A [id number] [phone] Edgar ARAMBULA [place] PATIENT MEDICARE (WNR) MEDICARE () PART B Oct 19, 2004 PART B [id number] Edgar ARAMBULA [place] PATIENT MEDICARE (WNR) MEDICARE () PART A Oct 19, 2004 PART A [id number] [phone] Edgar ARAMBULA [place] PATIENT MEDICARE (WNR) MEDICARE () PART B Oct 19, 2004 PART B [id number] Edgar ARAMBULA [place] PATIENT MEDICARE ([place]) MEDICARE () PART A Oct 19, 2004 PART A [id number] Edgar ARAMBULAN PATIENT MEDICARE (WNR) MEDICARE () PART B Oct 19, 2004 PART B [id number] [phone] Edgar ARAMBULAN PATIENT Selected Encounter This section includes the information on record at [place] for the Encounter. Date/Time Encounter Type Encounter Description Reason Provider Source Oct 14, 2024 12:30 PM MTMS BY PHARM ADDL 15 MIN CLINICAL PHARMACY ICD-10-CM E11.9 Type 2 diabetes mellitus without complications MELIZA KNUTSON Encounter Template Text not used by [place] Assessments - Encounter Diagnoses This section includes the primary and secondary diagnoses documented for the Encounter. Date/Time Primary/Secondary Diagnosis Diagnosis Name Provider Source Oct 15, 2024 10:17 AM PRIMARY Type 2 diabetes mellitus without complications JOSSUE KNUTSON BIRD IN HAND Plan of Treatment: Future Appointments (+ 6 months) and Future Tests (+/- 45 days) The Plan of Treatment section includes future care activities for the [facility] This section includes future appointments and future orders which are active, pending or scheduled. Future Appointments This section includes appointments that were scheduled to occur 6 months from the date of the Encounter, up to a maximum of 20 appointments. The data comes from all [facility]. Appointment Date/Time Appointment Type Appointme nt Facility Name Oct 15, 2024 07:45 AM AMBULATORY - NONE [facility] Oct 21, 2024 09:30 AM AMBULATORY - MEDICINE [facility] Oct 30, 2024 08:00 AM AMBULATORY - MEDICINE [facility] Nov 11, 2024 01:30 PM [facility] Nov 12, 2024 10:30 AM AMBULATORY - PSYCHIATRY [facility] Nov 29, 2024 10:00 AM [facility] Jan 24, 2025 11:00 AM AMBULATORY - MEDICINE [facility] Active, Pending, and Scheduled Orders This section includes a listing of several types of active, pending, and scheduled orders, including clinic medications orders, diagnostic test orders, procedure orders and consult orders; where the start date of the order is 45 days before the date of the Encounter or 45 days after the date of theEncounter. The data comes from all [facility]. Test Date/Time Test Type Test Details Facility Name Oct 18, 2024 03:15 PM Consult Order COMMUNITY CARE-CARDIOLOGY Cons Adult Education Teacher's Choice [facility] Nov 11, 2024 12:00 AM Laboratory - Chemistry Order HEMOGLOBIN A1C PANEL BLOOD (LAV-BLOOD) [facility] Nov 11, 2024 12:00 AM Laboratory - Chemistry Order MICROALBUMIN CREATININE RATIO PANEL URINE (RANDOM) [facility] Nov 11, 2024 12:00 AM Laboratory - Chemistry Order TSH BLOOD (SST-SERUM) [facility] Nov 11, 2024 12:00 AM Laboratory - Chemistry Order VITAMIN D (25-OH) BLOOD (SST-SERUM) ONCE BIRD IN [facility] Nov 11, 2024 12:00 AM Laboratory - Chemistry Order CBC BLOOD (LAV-BLOOD) [facility] Nov 11, 2024 12:00 AM Laboratory - Chemistry Order BASIC METABOLIC PANEL (non-fasting) BLOOD (SST-SERUM) [facility] Nov 11, 2024 12:00 AM Laboratory - Chemistry Order LIPID PANEL, NON FASTING BLOOD (SST-SERUM) [facility] Nov 11, 2024 12:00 AM Laboratory - Chemistry Order LIVER FUNCTION BLOOD (SST-SERUM) [facility] Social History: Smoking Status (Most [...] 2023 09:00 AM VA-TOBACCO USER EVERY DAY BIRD IN HAND Tobacco Use History This section includes a history of the smoking, or tobacco-related health factors, that were collected on or before the date of the Encounter. The data comes from the [place] facility where the Encounter took place. Date/Time Smoking Status/Tobacco Use Comment F acility December 25, 2023 09:00 AM VA-TOBACCO USE ADVICE BIRD IN HAND December 25, 2023 09:00 AM VA-TOBACCO USE CLIENT CARE CONSULTANT NO BIRD IN HAND December 25, 2023 09:00 AM VA-TOBACCO USE MED NO BIRD IN HAND December 25, 2023 09:00 AM VA-TOBACCO USE WI 30 MIN OF WAKE UP BIRD IN HAND December 25, 2023 09:00 AM VA-TOBACCO USER EVERY DAY BIRD IN HAND Advance Directives: All historical and current Section [...] Apr 10, 2023 ADVANCE DIRECTIVE ESSIE STARK [place] [facility]riela [facility] Apr 19, 2007 ADVANCE DIRECTIVE VICTORIA [facility] Encounter Notes: All associated encounter notes This section contains the clinical notes associated to the Encounter. Date/Time Encounter Note(s) Provider Source Oct 14, 2024 12:48 PM PHARMACY OUTPATIEN T NOTE: LOCAL TITLE: PHARMACY CLINIC NOTE STANDARD TITLE: PHARMACY OUTPATIENT NOTE DATE OF NOTE: OCT 14, 2024@12:48 ENTRY DATE: OCT 14, 2024@12:49 AUTHOR: RONALD KNUTSON COSIGNER: URGENCY: STATUS: COMPLETED Patient Name: GUSTAVO ARAMBULA SR was seen via f2f for follow-up for diabetes management treatment. : Oct Age: 83 Sex: MALE Race: WHITE Subjective: Pt presents for a f/up after at last visit the sitagliptin was started. Pt is tolerating the medication very well. Per prev: Pt presents for a f/up with his son. Pt's son states is doing better but gained weight. Recent appt with the manager student services- recommendation to stop glucerna as it can be the reason for elevated A1C. Per prev; Pt presents w/ his son who is also his process coordinator. Pt states he was hospitalized last week [...] disorder 3. Male urinary stress incontinence 4. Diabetes mellitus type 2 5. Long-term current use of anticoagulant 6. Communication authorization 7. Splenic infarction 8. Abnormal imaging 9. Aortic valve stenosis 10. Aneurysm of ascending aorta 11. Osteopenia 12. Sleep apnea 13. Admits alcohol use 14. Insomnia 15. Chronic obstructive lung disease 16. Peripheral vascular disease 17. Jc's esophagus 18. Disorder of lumbar disc (SNOMED CT 424901540) 19. Depression (SNOMED CT 84279222) 20. Dry eyes 21. 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 Localised, primary osteoarthritis 23. History of malignant neoplasm of prostate 24. Cataract, Cortical (Senile) 25. Open Angle Glaucoma Suspect 26. Mixed hyperlipidaemia 27. Benign essential hypertension 28. Screening for malignant neoplasm of colon done 29. Tobacco use (SNOMED CT [id number]) Objective: Diabetes Medication Regimen: - metform SA 1500 mg daily - sitagliptin 100 mg daily - eGFR 88 ml/min on 08/2024 Previous DM Medications: - ? Adherence: Oral [...] - 50 SrCr (last 6 weeks): CREATININE-EGFR - NONE FOUND CRCL IBW: CrCl(est): 51.9 mL/min (Creat:0.76 08/28/24) CRCL ACT: 49.49 mL/min CRCL ADJ: 51.9 mL/min (08/28/24) Vitals: Weight (BMI): 140 lb [63.50 kg] (09/26/2024 12:36) Height: 60.3 in [153.2 cm] (05/14/2024 11:39) BMI: 27.1 Active and Recently Outpatient Medications (including Supplies): Active Outpatient Medications Status Active Outpatient Medications (including Supplies): ACCU-CHEK GUIDE [...] ACTIVE Indication: FOR PREVENTION OF BLOOD CLOTS ARMODAFINIL 50MG TAB TAKE ONE HALF TABLET BY MOUTH EVERY ACTIVE MORNING FOR 1 WEEK, THEN TAKE ONE TABLET EVERY MORNING ARMODAFINIL 50MG TABS, TAKE 1/2 TABLET BY MOUTH EVERY MORNING FOR 1 WEEK, THEN 1 TABLET BY MOUTH EVERY MORNING Indication: TO IMPROVE WAKEFULNESS ATORVASTATIN CALCIUM 40MG TAB TAKE ONE-HALF TABLET [...] DAYS Indication: FOR ATOPIC DERMATITIS MEDICATION RECONCILIATION: BLOOD GLUCOSE MONITORING INFORMATION OBTAINED FROM [facility] [...] mg/dl stopped drinking ensure 1 week ago Date: 10/14/24 Fasting BG av mg/dl; n=4; range: 136-188 mg/dl Before dinner av mg/dl; n=2; range 182-183mg/dl NUTRITION Pt lives w/ son and pt Diet Patterns: patient eats on avg. x/day: Since release from hospital B: this am azeri muffin and bannana cream of wehe ensure for breakfast L: sandwich or skips D: home made dinner veggie, pork , chicken , beef ; baked potatoe, mashed Snacks:cut down on it - ritz crackers or mary crackesrs Drinks: milk - usually 2 of #8 [...] w/ pt and son. Close f/up recommended. date: 10/14/24 Pt is responding to sitagliptin well. The fasting BG levels vary greatly - after interview it is likely d/t pt snacking on mary crackers and some sweets (even though he has cut down on many of them). Counseled pt extensively on that. Pt works w/ [place] manager student services who recently switched him over from ensure to glucerna. Reviewed reading the nutritional label. f/up in 1 month Per discussion w/ pcp will evaluate the appropriateness of metformin in the future. 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 visit to industrial furnace fabricator:1.5 months [facility] retired Most recent visit to [facility]: [facility] a [facility] will place [facility] Next Scheduled Follow-up: 10/2024 FUTURE APPOINTMENTS: 10/15/2024 07:45 SPR V01 SFT [facility] ECHO PT 10/21/2024 09:30 SPR PODIATRY 1 11/12/2024 10:30 MDM [facility] PSYTR 1 AM 01/24/2025 11:00 SPR PACT 7 PRINTER'S ASSISTANT DM type is : T2D Length of Visit: 30 minutes PBM PharmD Pharmacotherapy Rem V12: PHARMACIST INTERVENTIONS: TYPE 2 DIABETES MELLITUS Medication monitoring, no dosage change required, continue to monitor and assess /reginaldo/ RONALD KNUTSON CLINICAL HYDRAULICS ENGINEER Signed: 10/15/2024 10:37 Receipt Acknowledged By: 10/15/2024 10:50 /DARLENE Lomas CERTIFIED NURSE PRACTITIONER RONALD KNUTSON BIRD IN HAND
--- OUTSIDE RECORDS SUMMARY | 2024-10-30 10:02 | XMS_ITS | Encounter Summary ---
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 Name Role Phone TRACY VILLANUEVA Primary [...] PHI MEDEX BRONZ E December 19, 2013 [id number] [phone] GUSTAVO ARAMBULA SR PATIENT [employer] MEDICARE SUPPLEMEN PHI MEDIC ARE SUPPL EMENT Jul 21, 2007 NONE [id number] Edgar ARAMBULA PATIENT [place] MED[place] SUPPLEMEN PHI MEDEX BRONZ E December 19, 2013 [id number] [phone] GUSTAVO ARAMBULA SR PATIENT [place] OF [place] ([place] MEDICARE SUPPLEMEN PHI MEDEX BRONZ E December 19, 2013 [id number] FILEMONEEdgar [place] PATIENT MEDICARE (WNR) MEDICARE () PART A Oct 19, 2004 PART A [id number] Edgar ARAMBULA [place] PAT[place] MEDICARE ([place]) MEDICARE () PART B Oct 19, 2004 PART B [id number] Edgar ARAMBULA [place] PAT[place] MEDICARE ([place]) MEDICARE () PART A Oct 19, 2004 PART A [id number] Edgar ARAMBULA [place] PAT[place] MEDICARE ([place]) MEDICARE () PART B Oct 19, 2004 PART B [id number] FILEMONEEdgar [place] PAT[place] MEDICARE ([place]) MEDICARE () PART A Oct 19, 2004 PART A [id number] [phone] SEVABIEEdgar [place] PATIENT MEDICARE ([place]NR) MEDICARE () PART B Oct 19, 2004 PART B [id number] [phone] SEVEdgar VIVAR [place] PAT[place] MEDICARE ([place]) MEDICARE () PART A Oct 19, 2004 PART A [id number] [phone] Edgar ARAMBULA [place] PAT[place] MEDICARE ([place]) MEDICARE () PART B Oct 19, 2004 PART B [id number] [phone] SEVABIEEdgar [place] PAT[place] MEDICARE ([place]NR) MEDICARE () PART A Oct 19, 2004 PART A [id number] SEVABIEEdgar [place] PATIENT MEDICARE (WNR) MEDICARE () PART B Oct 19, 2004 PART B [id number] [phone] Edgar ARAMBULA [place] PATIENT Selected Encounter This section includes the information on record at [place] for the Encounter. Date/Time Encounter Type Encounter Description Reason Provider Source Aug 28, 2024 10:00 AM OFF/OP EST DECEMBER X REQ PHY/QHP PRIMARY CARE/MEDICINE ICD-10-CM Z71.89 Other specified counseling GÓMEZ REYES Encounter Template Text not used by [place] Assessments - Encounter Diagnoses This section includes the primary and secondary diagnoses documented for the Encounter. Date/Time Primary/Secondary Diagnosis Diagnosis Name Provider Source Aug 28, 2024 10:23 AM PRIMARY Other specified counseling GÓMEZ REYES [place] [facility] [place] [facility] Plan of Treatment: Future Appointments [...] 06, 2024 11:00 AM AMBULATORY - MEDICINE [place] [facility] [place] [facility] Sep 18, 2024 11:00 AM AMBULATORY - NONE [place] [facility] [place] [facility] Sep 26, 2024 12:30 PM AMBULATORY - MEDICINE [facility] Oct 08, 2024 09:30 AM AMBULATORY - PSYCHIATRY [place] [facility] [place] [facility] Oct 14, 2024 12:30 PM AMBULATORY - MEDICINE [place] [facility] [place] [facility] Oct 15, 2024 07:45 AM AMBULATORY - NONE [place] [facility] [place] [facility] Oct 21, 2024 09:30 AM [facility] Oct 30, 2024 08:00 AM AMBULATORY - MEDICINE [place] [facility] [place] [facility] Nov 11, 2024 01:30 PM AMBULATORY - MEDICINE [place] [facility] [place] [facility] Nov 12, 2024 10:30 AM AMBULATORY - PSYCHIATRY [place] [facility] [place] [facility] Nov 29, 2024 10:00 AM AMBULATORY - MEDICINE [place] [facility] [place] [facility] Jan 24, 2025 11:00 AM AMBULATORY - MEDICINE [facility] Lab Results: +/- 30 days of the encounter This section includes the Chemistry and Hematology Lab Results on record with [place] for the patient. Radiology Reports and Pathology Reports are provided separately, in subsequent sections. Lab Results This section contains the Chemistry/Hematology Results that were resulted 30 days before or 30 daysafter the date of the Encounter. Date/Time Source Result Type Result - Unit Interpretation Reference Range Comment Aug 29, 2024 11:03 AM [facility] C DIFF TOX B GENE PCR Specimen Type: FECES Comment: The Wickr C. difficile/Epi assay is a real time PCR assay on the Wickr GeneXpert System for the rapid detection of [...] [place] ALERT HAS BEEN SENT Ordering Provider: GALDINO KIRBY Report Released Date/Time: Aug 28, 2024 10:23 AM Reporting Lab: [facility] [address] [facility] [address] Performing Lab: [facility] [address] [facility] [address] C DIFF TOX B GENE PCR Negative Negative Aug 29, 2024 10:57 AM [facility] GASTROINTESTINAL PANEL (WRLED) Specimen Type: FECES Comment: The Gastrointestina l (GI) Panel is an FDA (IVD) approved qualitative multiplex PCR assay on the shopp System for testing on raw stool specimens transferred into [employer]. It is indicated as an aid in the diagnosis of specific agents of gastrointestina l illness and results are meant to be used in conjunction with other clinical, laboratory, and epidemiological data. Positive results do not rule out co infection with organisms not included in the Plum Baby GI Panel. The agent detected may not [...] specimen collection, handling, transportation, storage, and preparation. Function [employer] Ordering Provider: GALDINO KIRBY Report Released Date/Time: Aug 28, 2024 10:23 AM Reporting Lab: [place] [facility] [employer] [facility] [address] [facility] [address] Performing Lab: [place] [facility] [employer] [facility] [address] [facility] [address] CAMPYLOBACTER SP. Not Detected Not Detected PLESIOMONAS [...] Not Detected Aug 28, 2024 10:49 AM [place] [facility] [employer] [facility] BASIC METABOLIC PANEL (non-fasting) Specimen Type: SERUM No comment entered. Ordering Provider: GALDINO KIRBY Report Released Date/Time: Aug 28, 2024 10:23 AM Reporting Lab: [facility] [address] [facility] [address] Performing Lab: [facility] [address] [facility] [address] UREA NITROGEN 16 mg/dL 7-25 GLUCOSE 212 mg/dL H 65-100 SODIUM 137 mmol/L 135-145 POTASSIUM 4.4 mmol/L 3.5-5.0 CHLORIDE 102 mmol/L 100-110 CO2 25 meq/L 20-30 CREATININE, Serum 0.76 mg/dL 0.50-1.40 eGFR(CKD-EPI 2020) 88 mL/min >60 Aug 28, 2024 10:49 AM [facility] URINALYSIS CLEAN CATCH Specimen Type: URINE Comment: If Glucose = >500 and Ketones are positive, please alert the Physician. Critical result acknowledged. DR KIRBY 08/28/24@1118 BY Ordering Provider: GALDINO KIRBY Report Released Date/Time: Aug 28, 2024 10:23 AM Reporting Lab: [facility] [address] [facility] [address] Performing Lab: [address] [address] UA COLOR Yellow Yellow UA APPEARANCE Clear Clear UA GLUCOSE 1,000 mg/dL Negative UA KETONES TRACE mg/dL Negative UA BLOOD NEGATIVE mg/dL Negative UA PROTEIN 30 mg/dL Negative UA NITRITE NEGATIVE mg/dL Negative UA BILIRUBIN NEGATIVE mg/dL Negative UA SPECIFIC GRAVITY 1.038 H 1.016-1.02 2 UA pH 5.5 5.0-9.0 UA UROBILINOGEN 3 mg/dL <2.0 UA LEUKOCYTE NEGATIVE Negative Aug 28, 2024 10:49 AM [facility] CBC AND DIFF (AUTO) Specimen Type: BLOOD No comment entered. Ordering Provider: GALDINO KIRBY Report Released Date/Time: Aug 28, 2024 10:23 AM Reporting Lab: [facility] [address] [facility] [address] Performing Lab: [address] [address] WBC 6.48 10*3/uL 4.50-11.00 RBC 4.37 10*6/uL [...] 10*3/uL 0.00-0.00 Aug 01, 2024 08:18 AM [place] BASIC METABOLIC PANEL (non-fasting) Spe cimen Type: SERUM No comment entered. Ordering Provider: TRACY VILLANUEVA Report Released Date/Time: Jul 30, 2024 09:45 AM Reporting Lab: [address] [address] Performing Lab: [address] [address] UREA NITROGEN 14 mg/dL 7-25 GLUCOSE 218 mg/dL H 65-100 SODIUM 136 mmol/L 135-145 POTASSIUM 4.1 mmol/L 3.5-5.0 CHLORIDE 101 mmol/L 100-110 CO2 26 meq/L 20-30 CREATININE, Serum 0.77 mg/dL 0.50-1.40 eGFR(CKD-EPI 2020) 88 mL/min >60 Aug 01, 2024 08:18 AM [place] HEMOGLOBIN A1C PANEL Specimen Type: BLOOD Comment: [...] Jul 30, 2024 09:45 AM Reporting Lab: [address] [address] Performing Lab: [address] [address] HEMOGLOBIN A1C 8.1 H 4.0-5.6 Aug 01, 2024 08:18 AM [place] LIPID PANEL, NON FASTING Specimen Type: SERUM No comment entered. Ordering Provider: TRACY VILLANUEVA Report Released Date/Time: Jul 30, 2024 09:45 AM Reporting Lab: [address] [address] Performing Lab: [address] [address] CHOLESTEROL 155 mg/dL TRIGLYCERIDE 78 mg/dL 0-150 LDL calculated 85 mg/dL 0-129 CHOL/HDL 2.9 HDL CHOLESTEROL 54 mg/dL 40-60 Aug 01, 2024 08:18 AM [place] LIVER FUNCTION Specimen Type: SERUM No comment entered. Ordering Provider: TRACY VILLANUEVA Report Released Date/Time: Jul 30, 2024 09:45 AM Reporting Lab: [address] [address] Performing Lab: [address] [address] PROTEIN,TOTAL 7.2 g/dL 6.0-8.3 ALBUMIN 3.9 g/dL 3.5-5.0 ALKALINE PHOSPHATASE 78 U/L 40-150 AST 16 U/L 5-34 ALT 18 U/L BILIRUBIN, TOTAL 0.8 mg/dL 0.2-1.2 Vital Signs: All taken on the encounter date This section contains inpatient and outpatient Vital Signs collected on the date of the Encounter. Date/Time Temperature Pulse Blood Pressure Respiratory Rate SP02 Pain Height Weight Body Mass Index Source Aug 28, 2024 10:06 AM 97.6 73 162/76 18 100 140 27 [place] [facility] [place] [facility] Social History: Smoking Status (Most current) [...] 2023 09:05 AM VA-TOBACCO NEVER USED [place] [facility] Tobacco Use History This section includes a history of the smoking, or tobacco-related health factors, that were collected on or before the date of the Encounter. The data comes from the [place] facility where the Encounter took place. 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 [facility] [place] [facility] Dec 13, 2022 03:00 PM VA-TOBACCO USE MED NO [facility] [place] [facility] Dec 13, 2022 03:00 PM VA-TOBACCO USER EVERY DAY [facility] [place] [facility] Nov 17, 2021 10:00 AM VA-TOBACCO USE 30 YEARS OR MORE [facility] [place] [facility] Nov 17, 2021 10:00 AM VA-TOBACCO USE ADVICE [facility] [place] [facility] Nov 17, 2021 10:00 AM VA-TOBACCO USE 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 Oct 14, 2013 12:55 PM V1-PT NOT INTERESTED IN QUIT TOBACCO USE [facility] [place] [facility] May 07, 2013 05:04 PM CURRENT SMOKER trying to stop [facility] May 07, 2013 05:04 PM V1-PT DECLINES REF TO TOBACCO CESS PRGM [facility] May 07, 2013 05:04 PM V1-PT DECLINES TOBACCO CESSATION MEDS [facility] May 07, 2013 05:04 PM V1-PT READY TO QUIT TOBACCO USE [facility] Dec 03, 2012 08:23 AM V1-PT DECLINES REF TO TOBACCO CESS PRGM [facility] Dec 03, 2012 08:23 AM V1-PT DECLINES TOBACCO CESSATION MEDS [facility] Dec 03, 2012 08:23 AM V1-PT THINKING ABOUT QUIT TOBACCO USE [facility] [place] [facility] Jun 05, 2012 08:45 AM CURRENT SMOKER 1/2ppd [facility] [place] [facility] Jun 05, 2012 08:45 AM V1-PT DECLINES REF TO TOBACCO CESS [facility] [place] [facility] Jun 05, 2012 08:45 AM V1-PT THINKING ABOUT QUIT TOBACCO USE [facility] Jun 05, 2012 08:45 AM V1-TOBACCO CESS MEDS NOT PRESCRIBED Vet wants to talk to his provider-He is nervous about taking meds to quit- but he is interested in quitting [facility] Nov 25, 2011 09:14 AM V1-PT DECLINES REF TO TOBACCO CESS PRGM [facility] Nov 25, 2011 09:14 AM V1-PT DECLINES TOBACCO CESSATION MEDS [facility] [place] [facility] Nov 25, 2011 09:14 AM V1-PT THINKING ABOUT QUIT TOBACCO USE [facility] [place] [facility] May 06, 2011 01:02 PM CURRENT SMOKER [facility] [place] [facility] May 06, 2011 01:02 PM V1-PT DECLINES TOBACCO CESSATION MEDS [facility] [place] [facility] May 06, 2011 01:02 PM V1-PT NOT INTERESTED IN QUIT TOBACCO USE [facility] [place] [facility] Sep 24, 2010 08:51 AM V1-PT DECLINES TOBACCO CESSATION MEDS [facility] [place] [facility] Sep 24, 2010 08:51 AM V1-PT THINKING ABOUT QUIT TOBACCO USE [facility] [place] [facility] Mar 22, 2010 07:58 AM CURRENT SMOKER 1/2 ppd [facility] [place] [facility] Feb 25, 2009 12:05 PM QUIT TOBACCO USE IN PAST YEAR [facility] [place] [facility] Aug 26, 2008 09:28 AM CURRENT SMOKER 1/2 ppd [facility] [place] [facility] Aug 26, 2008 09:28 AM V1-PT DECLINES REF TO TOBACCO CESS PRGM [facility] [place] [facility] Aug 26, 2008 09:28 AM V1-PT READY TO QUIT TOBACCO USE [facility] [place] [facility] Dec 19, 2007 10:08 AM V1-PT DECLINES REF TO TOBACCO CESS PRGM [facility] [place] [facility] Dec 19, 2007 10:08 AM V1-PT DECLINES TOBACCO CESSATION MEDS [facility] [place] [facility] Dec 19, 2007 10:08 AM V1-PT THINKING ABOUT QUIT TOBACCO USE [facility] [place] [facility] Sep 11, 2007 11:10 AM CURRENT SMOKER [facility] [place] [facility] Sep 11, 2007 11:10 AM V1-PT DECLINES REF TO TOBACCO CESS PRGM [facility] [place] [facility] Sep 11, 2007 11:10 AM V1-PT DECLINES TOBACCO CESSATION MEDS [facility] [place] [facility] Sep 11, 2007 11:10 AM V1-PT THINKING ABOUT QUIT TOBACCO USE [facility] [place] [facility] Feb 13, 2007 01:46 PM V1-PT DECLINES REF TO TOBACCO CESS PRGM [facility] Feb 13, 2007 01:46 PM V1-PT DECLINES TOBACCO CESSATION MEDS [facility] Feb 13, 2007 01:46 PM V1-PT THINKING ABOUT QUIT TOBACCO USE [facility] Oct 02, 2006 08:28 AM QUIT TOBACCO USE IN PAST YEAR 3 months ago [facility] Aug 19, 2005 08:33 AM QUIT TOBACCO USE IN PAST YEAR nonsmoker [facility] Sep 21, 2004 09:54 AM CURRENT SMOKER [facility] Sep 07, 2004 08:07 AM CURRENT SMOKER [facility] Sep 15, 2003 11:21 AM CURRENT SMOKER smokes one pk day [facility] Jul 23, 2003 01:57 PM CURRENT SMOKER [facility] Advance Directives: All historical and current Section [...] Source Apr 10, 2023 ADVANCE DIRECTIVE [facility] Apr 19, 2007 [facility] Encounter Notes: All associated encounter notes This section contains the clinical notes associated to the Encounter. Date/Time Encounter Note(s) Provider Source Aug 28, 2024 10:17 AM PRIMARY CARE OUTPA TIENT NOTE: LOCAL TITLE: AMBULATORY/OUTPATIENT CARE NOTE STANDARD TITLE: PRIMARY CARE OUTPATIENT NOTE DATE OF NOTE: AUG 28, 2024@10:17 ENTRY DATE: AUG 28, 2024@10:17:38 AUTHOR: SE REYES EXP COSIGNER: URGENCY: STATUS: COMPLETED F: CHRONIC DIARRHEA X 3 MOS D&A: with PMHX of DM2 presents to sick call endorsing diarrhea x 3 months since being discharged from [facility] for hyponatremia. Shab[place]a has control no incontinence as of late. Endorses nauses, malaise, lightheadness and some vison changes. States eats a muffin and ensure for breakfast, granola for lunch a full dinner that his son prepares. was educated to stop eating Raisin bran for breakfast which can increase the his diarrhea. [place]ab[place]a states moves his bowels atleast 4-6 times a day. Pulse rate today is 73. R: To be seen evaluated and treated by sick call provider KHANH Blood Pressure: 162/76 (08/28/2024 10:06) Pain: 7 (09/05/2023 10:02) Patient Height: 60.3 in [153.2 cm] (05/14/2024 11:39) Patient Weight: 140 lb [63.50 kg] (08/28/2024 10:06) Pulse: 73 (08/28/2024 10:06) Respiration: 18 (08/28/2024 10:06) Temperature: 97.6 F [36.4 C] (08/28/2024 10:06) /reginaldo/ SE REYES Registered Nurse Signed: 08/28/2024 10:23 SE REYES [facility]
--- OUTSIDE RECORDS SUMMARY | 2024-10-30 10:02 | XMS_ITS | Encounter Summary ---
Author Name [facility] [place] [facility] [place] [facility] [place] [facility] [place] Address [address] [place] [address] Care Team Providers Care Facilities Officer Name Role Phone TRACY VILLANUEVA Primary [...] PHI MEDEX BRONZ E December 19, 2013 [id number] GUSTAVO ARAMBULA SR PATIENT [employer] CASUALTY MEDICARE SUPPLEMEN PHI MEDIC ARE SUPPL EMENT Jul 21, 2007 NONE [id number] Edgar ARAMBULA [place] SUPPLEMEN PHI MEDEX BRONZ E December 19, 2013 [id number] GUSTAVO ARAMBULA SR PATIENT [place] ([place] MEDICARE SUPPLEMEN PHI MEDEX BRONZ E December 19, 2013 [id number] [id number] Edgar ARAMBULA [place] PATIENT MEDICARE ([place]NR) MEDICARE (M) PART A Oct 19, 2004 PART A [id number] Edgar ARAMBULA [place] PATIENT MEDICARE ([place]) MEDICARE (M) PART B Oct 19, 2004 PART B [id number] Edgar ARAMBULA [place] PATIENT MEDICARE ([place]) MEDICARE (M) PART A Oct 19, 2004 PART A [id number] Edgar ARAMBULA [place] PATIENT MEDICARE ([place]) MEDICARE (M) PART B Oct 19, 2004 PART B [id number] [phone] Edgar ARAMBULA [place] PATIENT MEDICARE ([place]NR) MEDICARE (M) PART A Oct 19, 2004 PART A [id number] Edgar ARAMBULA [place] PATIENT MEDICARE ([place]) MEDICARE () PART B Oct 19, 2004 PART B [id number] [id number] Edgar ARAMBULA [place] PATIENT MEDICARE ([place]NR) MEDICARE () PART A Oct 19, 2004 PART A [id number] Edgar ARAMBULA [place] PATIENT MEDICARE ([place]) MEDICARE () PART B Oct 19, 2004 PART B [id number] Edgar ARAMBULA [place] PATIENT MEDICARE ([place]) MEDICARE () PART A Oct 19, 2004 PART A [id number] [phone] Edgar ARAMBULAN PATIENT MEDICARE (WNR) MEDICARE (M) PART B Oct 19, 2004 PART B [id number] [phone] Edgar ARAMBULAN PATIENT Selected Encounter This section includes the information on record at [place] for the Encounter. Date/Time Encounter Type Encounter Description Reason Provider Source Oct 21, 2024 09:30 AM OFFICE O/P EST LOW 20 MIN PODIATRY ICD-10-CM L60.0 Ingrowing nail ASHA MAYERS Encounter Template Text not used by [place] Assessments - Encounter Diagnoses This section includes the primary and secondary diagnoses documented for the Encounter. Date/Time Primary/Secondary Diagnosis Diagnosis Name Provider Source Oct 21, 2024 09:46 AM PRIMARY Ingrowing nail ASHA MAYERS [place] Oct 21, 2024 09:46 AM SECONDARY Pain in left toe(s) ASHA MAYERS [place] Oct 21, 2024 09:46 AM SECONDARY Pain in right toe(s) ASHA MAYERS [facility] 03, 2025 09:46 AM SECONDARY Type 2 diabetes mellitus without complications ASHA MAYERS [place] Plan of Treatment: Future Appointments (+ 6 months) and Future Tests (+/- 45 days) The Plan of Treatment section includes future care activities for the patient from all [place] [facility]. This section includes future appointments and future orders which are active, pending or scheduled. Future Appointments This section includes appointments that were scheduled to occur 6 months from the date of the Encounter, up to a maximum of 20 appointments. The data comes from all [facility]. Appointment Date/Time Appointment Type Appointme nt Facility Name Oct 30, 2024 08:00 AM AMBULATORY - MEDICINE [facility] Nov 11, 2024 01:30 PM AMBULATORY - MEDICINE [facility] Nov 12, 2024 10:30 AM AMBULATORY - PSYCHIATRY [facility] Nov 29, 2024 10:00 AM [facility] Jan 24, 2025 11:00 AM AMBULATORY - MEDICINE [facility] Active, Pending, and [...] comes from all [facility]. Test Date/Time Test Type Test Details Facility Name Oct 18, 2024 03:15 PM Consult Order COMMUNITY CARE-CARDIOLOGY Cons Pad Machine Feeder's Choice [facility] Nov 11, 2024 12:00 AM Laboratory - Chemistry Order HEMOGLOBIN A1C PANEL BLOOD (LAV-BLOOD) [facility] Nov 11, 2024 12:00 AM Laboratory - Chemistry Order TSH BLOOD (SST-SERUM) [facility] Nov 11, 2024 12:00 AM Laboratory - Chemistry Order MICROALBUMIN CREATININE RATIO PANEL URINE (RANDOM) [facility] Nov 11, 2024 12:00 AM Laboratory - Chemistry Order VITAMIN D (25-OH) BLOOD (SST-SERUM) [facility] [place] Nov 11, 2024 12:00 AM Laboratory - Chemistry Order CBC BLOOD (LAV-BLOOD) [facility] Nov 11, 2024 12:00 AM Laboratory - Chemistry Order BASIC METABOLIC PANEL (non-fasting) BLOOD (SST-SERUM) [facility] Nov 11, 2024 12:00 AM Laboratory - Chemistry Order LIVER FUNCTION BLOOD (SST-SERUM) [facility] Nov 11, 2024 12:00 AM Laboratory - Chemistry Order LIPID PANEL, NON FASTING BLOOD (SST-SERUM) [facility] Social History: Smoking Status (Most current) and [...] 2023 09:00 AM VA-TOBACCO USER EVERY DAY [place] Tobacco Use History This section includes a history of the smoking, or tobacco-related health factors, that were collected on or before the date of the Encounter. The data comes from the [place] facility where the Encounter took place. 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 Date/Time Encounter Note(s) Provider Source Oct 21, 2024 07:36 AM PODIATRY NOTE: LOCAL TITLE: PODIATRY NOTE STANDARD TITLE: PODIATRY NOTE DATE OF NOTE: OCT 21, 2024@07:36 ENTRY DATE: OCT 21, 2024@07:36:46 AUTHOR: ASHA MAYERS EXP COSIGNER: URGENCY: STATUS: COMPLETED LAST SEEN FOR TREATMENT: INITIAL CONSULT VISIT 06/10/2024 NOTE: HAS RECEIVED BOTH COVID VACCINE DOSES + 3 BOOSTERS AT [facility] S: Pt. 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 Patient has TYPE II DM [...] Contributing factors are: shoes and increased activity. PMH: Active problems - Computerized Problem List [...] 18. Disorder of lumbar disc (SNOMED CT 129791484) 19. Depression (SNOMED CT 24795381) 20. Dry eyes 21. 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 Localised, primary osteoarthritis 23. History of malignant neoplasm of prostate 24. Cataract, Cortical (Senile) 25. Open Angle Glaucoma Suspect 26. Mixed hyperlipidaemia 27. Benign essential hypertension 28. Screening for malignant neoplasm of colon done 29. 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 Protective sensation utilizing a [place] lOg monofilament is 10/10 bilateral. *NOTE: *YEARLY [...] AND UNDERSTANDS PLAN-NOT IN NEED OF MIRROR DISCUSSED THE VERY COLD WEATHER EPAST 2 DAYS AND HOPING FOR BETTER WEATHER SPRING IS APPROACHING Medication Reconciliation: PERFORMED TODAY - SEE BELOW. Outpatient: Has the patient been taking medications as documented in the EMLR? YES: The patient has been taking medications as documented in the EMLR. Essential Medication List for Review used to complete this medication reconciliation. INCLUDED IN THIS LIST: Alphabetical list of active outpatient prescriptions dispensed from this [place] (local) and dispensed from another [place] or [facility] facility (remote) as well as inpatient [...] whether with a VA or non-VA provider. JLV Link Data on this list may not be complete. Please check JLV. Allergies/ADRs (Tool #5) FACILITY ALLERGY/ADR -------- [facility] GEMFIBROZIL [facility] LISINOPRIL [facility] NO KNOWN ALLERGIES [facility] NO KNOWN ALLERGIES Med [facility] (Tool #1) INCLUDED IN THIS LIST: Alphabetical list of active outpatient prescriptions dispensed from this [place] (local) and dispensed from another [place] or [facility] facility (remote) as well as inpatient orders (local pending and active), local clinic medications, locally documented non-VA medications, and local prescriptions that have or been discontinued in the past 90 days. Non-VA Meds Last Documented On: Nov 17, 2021 NOTE The display of VA prescriptions dispensed from another [place] or [facility] facility (remote) is limited to active outpatient prescription entries matched to National Drug File at the originating site and may not include some items such as investigational drugs, compounds, etc. NOT INCLUDED IN THIS LIST: Medications self-entered by the patient into personal health records (i.e. [employer]ets[employer]) are NOT included in this list. Non-VA medications documented outside this [place], remote inpatient orders (regardless of status) and remote clinic medications are NOT included in this list. The patient and provider must always discuss medications the patient is taking, regardless of where the medication was dispensed or obtained. OUTPT ACETAMINOPHEN 500MG TAB (Status = Active) TAKE TWO TABLETS BY MOUTH TWICE DAILY FOR PAIN Rx# [id number] Last Released: 03/12/24 Qty/Days Supply: 400/90 Rx Expiration Date: 03/12/25 Refills Remainin Indication: FOR PAIN OUTPT ALBUTEROL 90MCG (CFC-F) 200D ORAL INHL (Status = Active) INHALE 1 TO 2 PUFFS BY MOUTH EVERY 6 HOURS NEEDED FOR BRONCHOSPASM Rx# [id number] Last Released: 03/12/24 Qty/Days Supply: Rx Expiration Date: 03/12/25 Refills Remainin Indication: FOR BRONCHOSPASM OUTPT AMLODIPINE BESYLATE 10MG TAB (Status = Active) TAKE ONE TABLET BY MOUTH ONCE DAILY FOR BLOOD PRESSURE/HEART, DO NOT TAKE WITH GRAPEFRUIT JUICE Rx# [id number] Last Released: 09/11/24 Qty/Days Supply: Rx Expiration Date: 03/12/25 Refills Remainin OUTPT APIXABAN 5MG TAB (Status = Active) TAKE ONE TABLET BY MOUTH EVERY 12 HOURS FOR PREVENTION OF BLOOD CLOTS Rx# [id number] Last Released: 08/22/24 Qty/Days Supply: Rx Expiration Date: 11/10/24 Refills Remainin Indication: FOR PREVENTION OF BLOOD CLOTS OUTPT ARMODAFINIL 50MG TAB (Status = Active) TAKE ONE HALF TABLET BY MOUTH EVERY MORNING FOR 1 WEEK, THEN TAKE ONE TABLET EVERY MORNING ARMODAFINIL 50MG TABS, TAKE 1/2 TABLET BY MOUTH EVERY MORNING FOR 1 WEEK, THEN 1 TABLET BY MOUTH EVERY MORNING Rx# [id number] Last Released: 10/15/24 Qty/Days Supply: Rx Expiration Date: 11/10/24 Refills Remainin Indication: TO IMPROVE WAKEFULNESS OUTPT ATORVASTATIN CALCIUM 40MG TAB (Status = Active) TAKE ONE-HALF TABLET BY MOUTH ONCE DAILY FOR CHOLESTEROL Rx# [id number] Last Released: 09/11/24 Qty/Days Supply: Rx Expiration Date: 03/12/25 Refills Remainin OUTPT CARBOXYMETHYLCELLULOSE NA 0.5% OPH SOLN (Status = Active) INSTILL 1 DROP INTO EACH EYE FOUR TIMES A DAY FOR DRY EYE Rx# [id number] Last Released: 06/06/24 Qty/Days Supply: Rx Expiration Date: 06/01/25 Refills Remainin Indication: FOR DRY EYE OUTPT CITALOPRAM HYDROBROMIDE 40MG TAB (Status = Discontinued) TAKE ONE-HALF TABLET BY MOUTH ONCE DAILY FOR DEPRESSION AND ANXIETY Rx# [id number] Last Released: 07/11/24 Qty/Days Supply: Rx Expiration Date: 09/09/24 Refills Remainin Indication: FOR MAJOR DEPRESSIVE DISORDER OUTPT CITALOPRAM HYDROBROMIDE 40MG TAB (Status = Active) TAKE ONE-HALF TABLET BY MOUTH ONCE DAILY FOR DEPRESSION AND ANXIETY Rx# [id number] Last Released: 09/10/24 Qty/Days Supply: 45 Rx Expiration Date: 09/07/25 Refills Remainin Indication: FOR MAJOR DEPRESSIVE DISORDER OUTPT HYDROCORTISONE 1% OINT (Status = Discontinued) APPLY THIN LAYER TOPICALLY TWICE DAILY NEEDED FOR ATOPIC DERMATITIS Rx# [id number] Last Released: 03/13/24 Qty/Days Supply: 90 Rx Expiration Date: 03/12/25 Refills Remainin Indication: FOR ATOPIC DERMATITIS OUTPT LATANOPROST 0.005% OPH SOLN (Status = Active) INSTILL 1 DROP INTO EACH EYE AT BEDTIME Rx# [id number] Last Released: 09/23/24 Qty/Days Supply: Rx Expiration Date: 06/22/25 Refills Remainin Indication: FOR INCREASED PRESSURE IN THE EYE OUTPT MELATONIN 5MG CAP/TAB (Status = Active) TAKE ONE CAPSULE/TABLET BY MOUTH AT BEDTIME FOR INSOMNIA Rx# [id number] Last Released: 09/02/24 Qty/Days Supply: 90 Rx Expiration Date: 03/02/25 Refills Remainin Indication: FOR INSOMNIA OUTPT METFORMIN HCL 500MG 24HR SA TAB (Status = Active) TAKE TWO TABLETS BY MOUTH TWICE DAILY FOR TYPE 2 DIABETES MELLITUS Rx# [id number] Last Released: 09/11/24 Qty/Days Supply: 240/60 Rx Expiration Date: 09/11/25 Refills Remainin Indication: FOR TYPE 2 DIABETES MELLITUS OUTPT METFORMIN HCL 750MG 24HR SA TAB (Status = Discontinued) TAKE ONE TABLET BY MOUTH TWICE DAILY FOR TYPE 2 DIABETES MELLITUS Rx# [id number] Last Released: 05/15/24 Qty/Days Supply: 180/90 Rx Expiration Date: 05/15/25 Refills Remainin Indication: FOR TYPE 2 DIABETES MELLITUS OUTPT NUTR SUPL GLUCERNA SHAKE LIQ VANILLA (Status = Active) DRINK 1 BOTTLE BY MOUTH ONCE DAILY FOR NUTRITIONAL SUPPLEMENT FOR NUTRITIONAL SUPPLEMENT Rx# [id number] Last Released: 09/25/24 Qty/Days Supply: Rx Expiration Date: 09/21/25 Refills Remainin Indication: FOR NUTRITIONAL SUPPLEMENT OUTPT NUTRITION SUPL ENSURE PLUS/CONNIE LIQUID (Status = Discontinued) DRINK 1 CAN BY MOUTH TWICE DAILY Rx# [id number] Last Released: 08/19/24 Qty/Days Supply: Rx Expiration Date: 02/13/25 Refills Remainin Indication: FOR NUTRITIONAL SUPPLEMENTATION OUTPT PANTOPRAZOLE NA 40MG EC TAB (Status = Active) TAKE ONE TABLET BY MOUTH EVERY MORNING 30 MINUTES BEFORE BREAKFAST Rx# [id number] Last Released: 08/26/24 Qty/Days Supply: Rx Expiration Date: 11/10/24 Refills Remainin OUTPT QUETIAPINE FUMARATE 25MG TAB (Status = Active) TAKE ONE TABLET BY MOUTH AT BEDTIME Rx# [id number] Last Released: 07/29/24 Qty/Days Supply: Rx Expiration Date: 05/01/25 Refills Remainin Indication: SLEEP, DEPRESSION, ANXIETY OUTPT SENNOSIDES 8.6MG TAB (Status = ) TAKE ONE TABLET BY MOUTH TWICE DAILY NEEDED FOR CONSTIPATION Rx# [id number] Last Released: 01/19/24 Qty/Days Supply: Rx Expiration Date: 09/25/24 Refills Remainin Indication: FOR CONSTIPATION OUTPT SITAGLIPTIN (EQV-ZITUVIO) 100MG TAB (Status = Active) TAKE ONE TABLET BY MOUTH ONCE DAILY Rx# [id number] Last Released: 09/10/24 Qty/Days Supply: Rx Expiration Date: 09/07/25 Refills Remainin Indication: DIABETES OUTPT TIOTROPIUM 2.5MCG/ACTUAT 60D ORAL INHL (Status = Active) INHALE 2 PUFFS BY MOUTH ONCE DAILY Rx# [id number] Last Released: 07/17/24 Qty/Days Supply: 09/19 Rx Expiration Date: 03/12/25 Refills Remainin Indication: FOR BRONCHOSPASM PREVENTION WITH COPD OUTPT TRIAMCINOLONE ACETONIDE 0.025% CREAM (Status = Active) APPLY A MODERATE AMOUNT TOPICALLY TWICE DAILY NEEDED FOR ATOPIC DERMATITIS Rx# [id number] Last Released: 10/01/24 Qty/Days Supply: Rx Expiration Date: 09/27/25 Refills Remainin Indication: FOR ATOPIC DERMATITIS OUTPT TRIAMCINOLONE ACETONIDE 0.1% CREAM (Status = On Hold) APPLY A THIN LAYER TOPICALLY EVERY 5 DAYS Rx# [id number] Last Released: Qt Supply: Rx Expiration Date: 11/06/24 Refills Remainin Indication: FOR ATOPIC DERMATITIS SUPPLIES OUTPT ACCU-CHEK GUIDE (GLUCOSE) TEST STRIP (Status = Active) USE 1 STRIP TO TEST BLOOD SUGARS TWO TIMES A WEEK Rx# [id number] Last Released: 09/10/24 Qty/Days Supply: 50/180 Rx Expiration Date: 09/07/25 Refills Remainin OUTPT ACCU-CHEK GUIDE ME (GLUCOSE) METER (Status = Active) USE METER TO TEST BLOOD SUGARS TWO TIMES A WEEK Rx# [id number] Last Released: 09/16/24 Qty/Days Supply: Rx Expiration Date: 12/05/24 Refills Remainin OUTPT ALCOHOL PREP PAD (Status = Active) USE 1 PAD TOPICALLY TWICE A WEEK CLEAN SKIN FOR INJECTION Rx# [id number] Last Released: 09/09/24 Qty/Days Supply: 90 Rx Expiration Date: 09/07/25 Refills Remainin Indication: CLEAN SKIN FOR INJECTION OUTPT DEPEND UNDERWEAR,MAXIMUM,MEN SM/MED (Status = Active) USE 1 BRIEF DIRECTED TWICE DAILY FOR INCONTINENCE Rx# [id number] Last Released: 07/19/24 Qty/Days Supply: 152/76 Rx Expiration Date: 02/13/25 Refills Remainin Indication: URINARY INCONTINENCE OUTPT LANCET,SOFTCLIX (Status = Active) USE 1 LANCET TOPICALLY TWICE A WEEK TO TEST BLOOD SUGAR Rx# [id number] Last Released: 09/10/24 Qty/Days Supply: 90 Rx Expiration Date: 09/07/25 Refills Remainin/ ASHA MAYERS 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
--- OUTSIDE RECORDS SUMMARY | 2024-10-30 10:02 | XMS_ITS | Encounter Summary ---
Author Name [facility] [place] [facility] [place] Address [address] [place] [address] Care Team Providers Care Advertising Supervisor Name Role Phone KAYTRACY HERR Primary Care [...] PHI MEDEX BRONZ E December 19, 2013 [id number] GUSTAVO ARAMBULA SR PATIENT [employer] CASUALTY MEDICARE SUPPLEMEN PHI MEDIC ARE SUPPL EMENT Jul 21, 2007 NONE [id number] Edgar ARAMBULA PATIENT [place]BS [place] MEDICARE SUPPLEMEN PHI MEDEX BRONZ E December 19, 2013 [id number] [phone] GUSTAVO ARAMBULA SR PATIENT [place] OF [place] ([place]ARD) MEDICARE SUPPLEMEN PHI MEDEX BRONZ E December 19, 2013 [id number] FILEMONEEdgar [place] PATIENT MEDICARE (WNR) MEDICARE (M) PART A Oct 19, 2004 PART A [id number] [phone] [id number] Edgar ARAMBULA [place] PATIENT MEDICARE (WNR) MEDICARE (M) PART B Oct 19, 2004 PART B [id number] [id number] Edgar ARAMBULA [place] PATIENT MEDICARE (WNR) MEDICARE (M) PART A Oct 19, 2004 PART A [id number] Edgar ARAMBULA [place] PATIENT MEDICARE ([place]) MEDICARE (M) PART B Oct 19, 2004 PART B [id number] Edgar ARAMBULA [place] PATIENT MEDICARE ([place]NR) MEDICARE (M) PART A Oct 19, 2004 PART A [id number] [phone] FILEMONEEdgar [place] PATIENT MEDICARE (WNR) MEDICARE () PART B Oct 19, 2004 PART B [id number] FILEMONEEdgar [place] PATIENT MEDICARE (WNR) MEDICARE () PART A Oct 19, 2004 PART A [id number] Edgar ARAMBULA [place] PATIENT MEDICARE ([place]NR) MEDICARE () PART B Oct 19, 2004 PART B [id number] FILEMONEEdgar [place] PATIENT MEDICARE ([place]NR) MEDICARE () PART A Oct 19, 2004 PART A [id number] Edgar ARAMBULA [place] PATIENT MEDICARE (WNR) MEDICARE () PART B Oct 19, 2004 PART B [id number] [phone] Edgar ARAMBULA [place] PATIENT Selected Encounter This section includes the information on record at [facility] for the Encounter. Date/Time Encounter Type Encounter Description Reason Provider Source Oct 14, 2024 09:39 AM NQHP OL DIG ASSMT&MGMT 5-10 [facility] ICD-10-CM F33.9 Major depressive disorder, recurrent, unspecified REBECA RAINES Encounter Template Text not used by [facility] Assessments - Encounter Diagnoses This section includes the primary and secondary diagnoses documented for the Encounter. Date/Time Primary/Secondary Diagnosis Diagnosis Name Provider Source Oct 14, 2024 09:42 AM PRIMARY Major depressive disorder, recurrent, unspecified OLUREBECA Dang [facility] Plan of Treatment: Future Appointments (+ 6 months) and Future Tests (+/- 45 days) The Plan of Treatment section includes future care activities for the patient [facility] [place] [facility]. This section includes future appointments and future orders which are active, pending or scheduled. Future Appointments This section includes appointments that were scheduled to occur 6 months from the date of the Encounter, up to a maximum of 20 appointments. The data comes from all [facility]. Appointment Date/Time Appointment Type Appointme nt Facility Name Oct 15, 2024 07:45 AM AMBULATORY - NONE [facility] Oct 21, 2024 09:30 AM AMBULATORY - MEDICINE [facility] Oct 30, 2024 08:00 AM AMBULATORY - MEDICINE [facility] Nov 11, 2024 01:30 PM AMBULATORY - MEDICINE [facility] Nov 12, 2024 10:30 AM AMBULATORY - PSYCHIATRY [facility] Nov 29, 2024 10:00 AM AMBULATORY - MEDICINE [facility] Jan 24, 2025 11:00 AM AMBULATORY - MEDICINE [facility] Active, Pending, and Scheduled [...] theEncounter. The data comes from all [facility]. Test Date/Time Test Type Test Details Facility Name Oct 18, 2024 03:15 PM Consult Order COMMUNITY CARE-CARDIOLOGY Cons Clinical Informatics Strategist's Choice [facility] Nov 11, 2024 12:00 AM Laboratory - Chemistry Order HEMOGLOBIN A1C PANEL BLOOD (LAV-BLOOD) [facility] Nov 11, 2024 12:00 AM Laboratory - Chemistry Order MICROALBUMIN CREATININE RATIO PANEL URINE (RANDOM) [facility] Nov 11, 2024 12:00 AM Laboratory - Chemistry Order TSH BLOOD (SST-SERUM) [facility] Nov 11, 2024 12:00 AM Laboratory - Chemistry Order VITAMIN D (25-OH) BLOOD (SST-SERUM) [facility] Nov 11, 2024 12:00 AM Laboratory - Chemistry Order CBC BLOOD (LAV-BLOOD) [facility] Nov 11, 2024 12:00 AM Laboratory - Chemistry Order BASIC METABOLIC PANEL (non-fasting) BLOOD (SST-SERUM) [facility] Nov 11, 2024 12:00 AM Laboratory - Chemistry Order LIPID PANEL, NON FASTING BLOOD (SST-SERUM) [facility] Nov 11, 2024 12:00 AM Laboratory - Chemistry Order LIVER FUNCTION BLOOD (SST-SERUM) [facility] Social History: Smoking Status (Most [...] took place. Date/Time Current Smoking Status Comment [facility] it December 25, 2023 09:05 AM VA-TOBACCO NEVER USED [place] [facility] [place] [facility] Tobacco Use History This section includes a history of the smoking, or tobacco-related health factors, that were collected on or before the date of the Encounter. The data comes from the [place] facility where the Encounter took place. Date/Time Smoking Status/Tobac co Use Comment [facility] Dec 13, 2022 03:00 PM VA-TOBACCO DOESNT USE WI 30 MIN WAKEUP [place] [facility] [place] [facility] Dec 13, 2022 03:00 PM VA-TOBACCO USE 30 YEARS OR MORE [facility] [place] [facility] Dec 13, 2022 03:00 PM VA-TOBACCO USE ADVICE [place] [facility] [place] [facility] Dec 13, 2022 03:00 PM VA-TOBACCO USE ADULT MANAGER NO [facility] [place] [facility] Dec 13, 2022 03:00 PM VA-TOBACCO USE MED NO [facility] [place] [facility] Dec 13, 2022 03:00 PM VA-TOBACCO USER EVERY DAY [facility] [place] [facility] Nov 17, 2021 10:00 AM VA-TOBACCO USE 30 YEARS OR MORE [facility] Nov 17, 2021 10:00 AM VA-TOBACCO USE ADVICE [facility] Nov 17, 2021 10:00 AM VA-TOBACCO USE ADULT MANAGER NO [facility] Nov 17, 2021 10:00 AM VA-TOBACCO USE MED NO [facility] Nov 17, 2021 10:00 AM VA-TOBACCO USE WI 30 MIN OF WAKEUP [facility] Nov 17, 2021 10:00 AM VA-TOBACCO [facility]ER [facility] Oct 14, 2013 12:55 PM V1-PT NOT INTERESTED IN QUIT TOBACCO USE [facility] May 07, 2013 05:04 PM CURRENT SMOKER trying to stop [facility] May 07, 2013 05:04 PM V1-PT DECLINES REF TO TOBACCO CESS PRGM [facility] May 07, 2013 05:04 PM V1-PT DECLINES TOBACCO CESSATION MEDS [facility] May 07, 2013 05:04 PM V1-PT READY TO QUIT TOBACCO USE [facility] Dec 03, 2012 08:23 AM V1-PT DECLINES REF TO TOBACCO CESS PRGM [facility] Dec 03, 2012 08:23 AM V1-PT DECLINES TOBACCO CESSATION MEDS [facility] Dec 03, 2012 08:23 AM V1-PT THINKING ABOUT QUIT TOBACCO USE [facility] Jun 05, 2012 08:45 AM CURRENT SMOKER 1/2ppd [facility] Jun 05, 2012 08:45 AM V1-PT DECLINES REF TO TOBACCO CESS PRGM [facility] Jun 05, 2012 08:45 AM V1-PT THINKING ABOUT QUIT TOBACCO USE [facility] Jun 05, 2012 08:45 AM V1-TOBACCO CESS MEDS NOT PRESCRIBED Vet wants to talk to his provider-He is nervous about taking meds to quit- but he is interested in quitting [place] [facility] [place] [facility] Nov 25, 2011 09:14 AM V1-PT DECLINES REF TO TOBACCO CESS PRGM [place] [facility] [place] [facility] Nov 25, 2011 09:14 AM V1-PT DECLINES TOBACCO CESSATION MEDS [facility] [place] [facility] Nov 25, 2011 09:14 AM V1-PT THINKING ABOUT QUIT TOBACCO USE [facility] [place] [facility] May 06, 2011 01:02 PM CURRENT SMOKER [facility] [place] [facility] May 06, 2011 01:02 PM V1-PT DECLINES TOBACCO CESSATION MEDS [facility] [place] [facility] May 06, 2011 01:02 PM V1-PT NOT INTERESTED IN QUIT TOBACCO USE [facility] Sep 24, 2010 08:51 AM V1-PT DECLINES TOBACCO CESSATION MEDS [facility] Sep 24, 2010 08:51 AM V1-PT THINKING ABOUT QUIT TOBACCO USE [facility] [place] [facility] Mar 22, 2010 07:58 AM CURRENT SMOKER 1/2 ppd [facility] [place] [facility] Feb 25, 2009 12:05 PM QUIT TOBACCO USE IN PAST YEAR [facility] Aug 26, 2008 09:28 AM CURRENT SMOKER 1/2 ppd [facility] [place] [facility] Aug 26, 2008 09:28 AM V1-PT DECLINES REF TO TOBACCO CESS PRGM [facility] [place] [facility] Aug 26, 2008 09:28 AM V1-PT READY TO QUIT TOBACCO [facility] [place] [facility] Dec 19, 2007 10:08 AM V1-PT DECLINES REF TO TOBACCO CESS PRGM [facility] [place] [place] [facility] Dec 19, 2007 10:08 AM V1-PT DECLINES TOBACCO CESSATION MEDS [facility] [place] [place] [facility] Dec 19, 2007 10:08 AM V1-PT THINKING ABOUT QUIT TOBACCO USE [facility] [place] [place] [facility] Sep 11, 2007 11:10 AM CURRENT SMOKER [facility] [place] [place] [facility] Sep 11, 2007 11:10 AM V1-PT DECLINES REF TO TOBACCO CESS PR[facility] Sep 11, 2007 11:10 AM V1-PT DECLINES TOBACCO CESSATION MEDS [facility] Sep 11, 2007 11:10 AM V1-PT THINKING ABOUT QUIT TOBACCO USE [facility] Feb 13, 2007 01:46 PM V1-PT DECLINES REF TO TOBACCO CESS PRGM [facility] Feb 13, 2007 01:46 PM V1-PT DECLINES TOBACCO CESSATION MEDS [facility] Feb 13, 2007 01:46 PM V1-PT THINKING ABOUT QUIT TOBACCO USE [facility] Oct 02, 2006 08:28 AM QUIT TOBACCO USE IN PAST YEAR [address] [facility] Aug 19, 2005 08:33 AM QUIT TOBACCO USE IN PAST YEAR nonsmoker [facility] Sep 21, 2004 09:[address] [facility] Sep 07, 2004 08:[address] [facility] Sep 15, 2003 11:21 AM CURRENT SMOKER smokes one pk day [facility] Jul 23, [...] Apr 10, 2023 ADVANCE DIRECTIVE [facility] Apr 19, 2007 ADVANCE DIRECTIVE VICTORIA JOHNSON [facility] Encounter Notes: All associated encounter notes This section contains the clinical notes associated to the Encounter. Date/Time Encounter Note(s) Provider Source Oct 14, 2024 09:39 AM ACCOUNTING OF DISC LOSURES NOTE: LOCAL TITLE: STATE PRESCRIPTION DRUG MONITORING PROGRAM STANDARD TITLE: ACCOUNTING OF DISCLOSURES NOTE DATE OF NOTE: OCT 14, 2024@09:39:36 ENTRY DATE: OCT 14, 2024@09:39:36 AUTHOR: REBECA RAINES EXP COSIGNER: URGENCY: STATUS: COMPLETED This PDMP query was submitted by Rebeca Raines. The clinical justification for this PDMP query is to review controlled substances prescribed outside of the [facility], and any additional information that may become available, as an important component of standard clinical care, and in accordance with [facility] policy. Patient information was shared with the PDMP [place]. No prescription(s) for controlled substances outside the [facility] were found in the last 90 days. 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 04/01/2024 1 03/07/2024 04/01/2024 Lorazepam 0.5 Mg Tablet 15.00 15 Олег Haynes [id number] Ri (4904) 08/21 /[facility] MA 03/29/2024 1 03/28/2024 03/29/2024 Buprenorphine 5 Mcg/hr Patch 6.00 30 Se Kup [id number] [facility] (5614) 0/2 0.17 mg /VA MA 03/18/2024 1 03/15/2024 03/18/2024 Buprenorphine 5 Mcg/hr Patch 2.00 7 Se Kup [id number] Va (5614) 0/0 0.24 mg /VA MA 03/12/2024 1 03/07/2024 03/12/2024 Lorazepam 0.5 Mg Tablet 15.00 15 Олег Haynes [id number] Ri (4904) 0/ /[facility] MA 03/01/2024 1 02/15/2024 03/01/2024 Lorazepam 0.5 Mg Tablet 15.00 15 Олег Haynes [id number] Ri (4904) 08/21 /[facility] MA 02/19/2024 1 02/17/2024 02/19/2024 Buprenorphine 15 Mcg/hr Patch 6.00 30 Se Kup [id number] Va (5614) 0/4 0.50 mg /VA MA 02/15/2024 1 02/15/2024 02/15/2024 Lorazepam 0.5 Mg Tablet 15.00 15 Олег Haynes [id number] Ri (4904) 0/1 /VA MA 01/23/2024 1 11/06/2023 01/23/2024 Buprenorphine 15 Mcg/hr Patch 5.00 30 Se Kup [id number] Va (4904) 3/ 0.42 mg /VA MA 12/28/2023 1 11/06/2023 12/28/2023 Buprenorphine 15 Mcg/hr Patch 5.00 30 Se Kup [id number] Va (4904) 2/ 0.42 mg /VA MA 12/04/2023 1 11/06/2023 12/04/2023 Buprenorphine 15 Mcg/hr Patch 5.00 30 Se Kup [id number] Va (4904) 1/ 0.42 mg /VA MA 11/10/2023 1 11/06/2023 11/10/2023 Buprenorphine 15 Mcg/hr Patch 5.00 30 Se Kup [id number] Va (4904) 0/ 0.42 mg /VA MA 11/07/2023 1 11/06/2023 11/07/2023 Oxycodone Hcl (Ir) 5 Mg Tablet 30.00 30 Se Kup [id number] Va (4904) 0/0 7.50 MME /VA MA 10/18/2023 1 08/10/2023 10/18/2023 Buprenorphine 15 Mcg/hr Patch 5.00 30 Se Kup [id number] Va (4904) 2/2 0.42 mg /VA MA 09/20/2023 1 09/19/2023 09/20/2023 Oxycodone Hcl (Ir) 5 Mg Tablet 56.00 28 Mo Ahm [id number] Va (5614) 0/0 15.00 MME /VA MA 09/19/2023 1 08/10/2023 09/19/2023 Buprenorphine 15 Mcg/hr Patch 5.00 30 Se Kup [id number] Va (4904) 1/2 0.42 mg /VA MA 08/22/2023 1 08/10/2023 08/22/2023 Buprenorphine 15 Mcg/hr Patch 5.00 30 Se Kup [id number] Va (4904) 0/2 0.42 mg /VA MA 08/02/2023 1 08/02/2023 08/02/2023 Oxycodone Hcl (Ir) 5 Mg Tablet 56.00 28 Mo Ahm [id number] Va (5614) 0/0 15.00 MME /VA MA 07/25/2023 1 07/04/2023 07/25/2023 Pregabalin 25 Mg Capsule 90.00 30 Олег Haynes [id number] Va (4904) 0/1 /VA MA 07/17/2023 1 06/15/2023 07/17/2023 Buprenorphine 10 Mcg/hr Patch 6.00 30 Se Kup [id number] Va (5614) 1/2 0.34 mg /VA MA 07/06/2023 1 07/04/2023 07/06/2023 Oxycodone Hcl (Ir) 5 Mg Tablet 56.00 28 Mo [facility] [id number] [facility] (5614) 0/0 15.00 MME /VA MA 07/04/2023 1 05/16/2023 07/04/2023 Pregabalin 25 Mg Capsule 90.00 30 Олег Haynes [id number] Va (4904) 1/ /VA MA 06/16/2023 1 06/15/2023 06/16/2023 Buprenorphine 10 Mcg/hr Patch 6.00 30 Se Kup [id number] Va (5614) 0/2 0.34 mg /VA MA 05/26/2023 1 05/24/2023 05/26/2023 Buprenorphine 5 Mcg/hr Patch 4.00 28 Se Kup [id number] Va (5614) 0/1 0.12 mg /VA MA 05/18/2023 1 05/16/2023 05/18/2023 Pregabalin 25 Mg Capsule 90.00 30 Олег Haynes [id number] Va (4904) 0/1 /VA MA 05/10/2023 1 05/09/2023 05/10/2023 Oxycodone Hcl (Ir) 5 Mg Tablet 56.00 28 Mo m [id number] Va (4904) 0/0 15.00 MME /VA MA 04/07/2023 1 04/07/2023 04/07/2023 Oxycodone Hcl (Ir) 5 Mg Tablet 56.00 28 Mo [facility] [id number] Va (4904) 0/0 15.00 MME /VA MA 03/07/2023 1 03/06/2023 03/07/2023 Oxycodone Hcl (Ir) 5 Mg Tablet 56.00 28 Mo m [id number] Va (4904) 0/0 15.00 MME /VA MA 02/10/2023 1 02/09/2023 02/10/2023 Oxycodone Hcl (Ir) 5 Mg Tablet 56.00 28 Mo Ahm [id number] Va (4904) 0/0 15.00 MME /VA MA 02/03/2023 2 02/03/2023 02/03/2023 Oxycodone Hcl (Ir) 5 Mg Tablet 36.00 7 Kr Rot [id number] [facility] (3323) 0/0 38.57 MME Medicar [place] was identified by National PDMP Dashboard as being in need of PDMP query. Per [facility] Directive, a query of PDMP is required with prescribing of any new controlled substance. [place] was issued a prescription for new-start armodafinil on 10/11/24; not yet filled by pharmacy. Results of PDMP query did not yield any significant findings. Time for review: 5 min /chavez RAINES CLINICAL PHARMACIST PRACTITIONER, PAIN Signed: 10/14/2024 09:42 REBECA RAINES [facility]
== END 2024-10-30 10:06 | disposition home or self-care (01) ==
LOC: HO.HCS 09:16
PROVIDERS: PCP Nurse Practitioner Family; Visit Provider Internal Medicine Cardiovascular Disease
DX: Z95.2 Presence of prosthetic heart valve (principal); I25.10 Atherosclerotic heart disease of native coronary artery without angina pectoris
CPT/HCPCS: 93010; 99214; G2211

== ENCOUNTER → 2024-10-30 09:16 | Outpatient (BNVA) | payer OTHER, SELFPAY ==
[2023-04-05 09:10] VITALS: BP 114/72; BP 124/60; BMI 25.3
== END ==
PROVIDERS: PCP Nurse Practitioner Family; Visit Provider Internal Medicine Cardiovascular Disease
DX: I25.10 Atherosclerotic heart disease of native coronary artery without angina pectoris (principal); I44.0 Atrioventricular block, first degree; Z95.2 Presence of prosthetic heart valve
CPT/HCPCS: 93005; 99212

== ENCOUNTER 2025-03-07 14:22 | Outpatient (AMB) | payer OTHER, SELFPAY ==
[2023-04-05 09:10] VITALS: BP 114/72; BP 124/60; BMI 25.3
[2025-03-07 14:24] VITALS: BP 140/64; PULSE 91; O2SAT 9; BMI 25.0
--- NOTE | 2025-03-07 14:24 | MHC.OFFVIS ---
Vital Signs 03/07/25 14:24 Height 5 ft 3 in Weight 141 lb BMI 25.0 BP 140/64 H Blood Pressure Location Rt brachial Position Sitting Pulse 91 Pulse Source Pulse Oximeter Pulse Oximetry (%) 9 L Oxygen Delivery Method Room Air Intake Visit Reasons: COPD Allergies hydrochlorothiazide Allergy (Severe, Verified 08/16/24 09:22) low sodium lisinopril Allergy (Severe, Uncoded 08/16/24 09:22) Swelling HPI HPI COPD: Details: 84-year-old gentleman active 50+ pack-year smoker followed for underlying mild COPD and pulmonary nodules. He has completed his pulmonary function test that showed mild COPD and mild decrease in diffusion capacity. His symptoms are well on Stiolto and albuterol MDI. He denies recent exacerbations. [facility] Medical History (Updated 10/30/24 @ 09:51 by Simeon López MD) CAD (coronary artery disease) HTN (hypertension) Aortic stenosis Macular degeneration of right eye Type 2 diabetes mellitus without complications Essential hypertension Prostate cancer Hyperlipemia PVD (peripheral vascular disease) COPD (chronic obstructive pulmonary disease) Surgical History Hx of prostatectomy S/P TAVR (transcatheter aortic valve replacement) Hx of colonoscopy History of esophagogastroduodenoscopy (EGD) Aortic valve replaced (~01/19/23) S/p bilateral carotid endarterectomy History of hip replacement History of cataract surgery History of inguinal hernia repair History of hernia surgery History of facial surgery Family History Mother No problems noted. Father No problems noted. Social History Household Members: Significant Other Household Members Other:: girlfriend Housing: Apartment Do you presently have visiting nurse or other home services: No Alcohol intake: former Patient Tobacco Use Status: Current everyday Tobacco user Tobacco use type: Cigarette Cigarette Packs Per Day: 0.5 Cigarettes Per Day: 8 Years Smoked: 65, started at age 16, 1PPD e-Cigarette/Vaping Use: Never Used Second Hand Smoke Exposure: No Advance Directives Date on File: 11/20/21 service: Yes ([employer]) Current occupational status: retired Review of Systems Const Denies daytime sleepiness, Denies excessive sweating, Denies fatigue, Denies fever(s), Denies lethargy, Denies malaise, Denies night sweats, Denies snoring and Denies weight loss Eyes Denies blurry vision and Denies itchy eyes ENT Denies nasal congestion, Denies post nasal drip, Denies sinus pain, Denies sinus pressure and Denies other ( Thrush) Card Denies chest pain, Denies pedal edema, Denies dyspnea, Denies orthopnea and Denies paroxysmal nocturnal dyspnea Resp Denies cough, Denies hemoptysis, Denies excessive phlegm production, Denies dyspnea, Denies snoring and Denies wheezing GI Denies abdominal pain and Denies heartburn Musc Denies myalgias, Denies arthralgias and Denies joint swelling Skin/Breast Denies rash Neuro Denies memory loss and Denies seizure-like activity Psych Denies abnormal sleep pattern, Denies anxiety and Denies memory loss Endo Denies excessive sweating, Denies fatigue and Denies heat intolerance Prosper/Lymph Denies easy bruising Aller/Immun Denies itchy eyes, Denies seasonal rhinorrhea and Denies wheezing Physical Exam Vital Signs: Last Vital Signs Pulse 91 03/07/25 14:24 BP 140/64 H 03/07/25 14:24 Pulse Ox 9 L 03/07/25 14:24 Oxygen Delivery Method Room Air 03/07/25 14:24 BMI result Body Mass Index 25.0 Const General: no acute distress and alert Nutritional Appearance: not obese Orientation/consciousness: Other orientation findings ( oriented) HEENT Head: Yes atraumatic Eyes General: appearance normal, both eyes and all related structures Sclerae: sclerae normal EOM: EOMs intact bilaterally Neck Neck: Yes supple Lymphatic: no lymphadenopathy noted Resp Effort & Inspection: normal respiratory effort and no use of accessory muscles Auscultation: clear to auscultation bilaterally Cardio Rate: regular rate Rhythm: regular rhythm Heart sounds: no gallops, no murmurs and no rubs Skin General skin exam: other ( warm) Extrem General: No clubbing, No cyanosis and No edema Assessment & Plan Assessment & Plan (1) COPD (chronic obstructive pulmonary disease): Code(s): J44.9 - Chronic obstructive pulmonary disease, unspecified Category: Medical Plan: Well controlled on the current regimen of Stiolto and albuterol MDI. Coding Level of Care Code Est Pt Level 3 (94913) Diagnoses COPD (chronic obstructive pulmonary disease) J44.9
--- OUTSIDE RECORDS SUMMARY | 2025-03-07 14:26 | XMS_ITS | Clinical Summary ---
Author Organization [facility] Address [address] [facility] [address] [place] [phone] Phone Care Team Providers Care Dot Net Architect Name Role Phone Nell Carrillo NP Primary Care Provid er Allergies Active Allergy Reactions Criticality Noted Date Comments Gemfibrozil Diarrhea 06/13/2024 Lisinopril Angioedema 06/13/2024 Medications hydroCHLOROthia zide 25 MG tablet Take 1 tablet by mouth every morning. 03/18/2024 Active apixaban (ELIQUIS) 5 mg tablet Take 5 mg by mouth 2 (two) times a day. Active metFORMIN (GLUCOPHAGE) 850 MG tablet Take 750 mg by mouth 2 (two) times a day with meals. Active melatonin 5 mg Tab Take by mouth nightly at bedtime. Active amLODIPine (NORVASC) 10 MG tablet Take 10 mg by mouth daily. Active senna (SENOKOT) 8.6 mg tablet Take 1 tablet by mouth daily. Active pantoprazole (PROTONIX) 40 MG tablet Take 40 mg by mouth daily. Active atorvastatin (LIPITOR) 20 MG tablet Take 20 mg by mouth daily. Active citalopram (CELEXA) 20 MG tablet Take 20 mg by mouth daily. Active QUEtiapine (SEROQUEL) 25 MG tablet Take 25 mg by mouth nightly at bedtime. Active tiotropium (SPIRIVA HANDIHALER) 18 mcg inhalation capsule Inhale 18 mcg into the lungs daily. 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 Not on adrienne e 10/20/2023 Are you concerned about learning? Not on file 10/20/2023 No 10/20/2023 No 10/20/2023 Digital Access Answer Date Recorded No 10/20/2023 No 10/20/2023 Reliable internet access at home? Not on file 10/20/2023 Device with a working camera? Not on file Sex and Gender Information Value Date Recorded Sex Assigned at Not on file Legal Sex Male 10:12 PM EDT Gender Identity Not on file Sexual Orientation Not on file Last Filed Vital Signs Vital Sign Reading Time Taken Comments Blood Pressure - - Pulse - - Temperature - - Respiratory Rate - - Oxygen Saturation - - Inhaled Oxygen Concentration - - Weight 60.8 kg (134 lb) 06/13/2024 9:55 AM EDT Height 157 cm (5' 1.81 ) 06/13/2024 9:55 AM EDT Body Mass Index 24.66 06/13/2024 9:55 AM EDT Plan of Treatment Health Maintenance Due Date Last Done Comments Adult Td,Tdap Booster 1940 CREATININE LEVEL 1940 POTASSIUM LEVEL 1939 DEPRESSION SCREENING 1951 PNEUMOCOCCAL VACCINES (50+ y ears) (1 of 1 - PCV) 10/31/1989 ZOSTER VACCINES (1 of 2) 10/31/1989 RSV VACCINE (1 - 1-dose 75+ series) 10/31/2014 COVID-19 VACCINE (1 - 2023-2 5 season) 2024 HEPATITIS A VACCINES Aged Out No long er eligible based on patient's age to complete this topic HIB VACCINES Aged Out No longer eligi ble based on patient's age to complete this topic MENINGOCOCCAL VACCINES (ACWY) Aged Out No longer eligible based on patient's age to complete this topic MENINGOCOCCAL VACCINES (B) Aged Out N o longer eligible based on patient's age to complete this topic [place] [address] MEDICARE PART A & B [id number] [facility] [place] [address] MEDICARE PART A & B [facility] [place] [address] MEDICARE PART A & B Member Subscriber Plan / Payer (Ef fective 2004-Present) Name:Amaury Guzman Member ID:[id number] Relation to Subscriber:Self Name:Amaury Guzman Subscriber ID:[id number] Payer ID:[id number] Group ID:Not on file Type:Medicare Address: [facility] [employer] [facility] [address] [place] [phone] [facility] MEDICARE PART A & B [facility] MEDICARE PART A & B [facility] [place] [id number] MEDICARE PART A & B [facility] Care Teams Dot Net Architect Relationship Specialty Start Date End [place] [address] [email or web address] PCP - General Nurse Practitioner 10/20/23 Additional Source Comments The information contained in this document represents components of the legal health record. It is not the complete legal health record.[facility]
--- OUTSIDE RECORDS SUMMARY | 2025-03-07 14:26 | XMS_ITS | Clinical Summary ---
Author Organization [facility] Address [address] [place] [address] Care Team Providers Care Traveling Crane Operator Name Role Phone Dea Momin MD Primary Care Provider Surgical History Surgery Date Site/Laterality Comments HIP ARTHROPLASTY Bilateral PROCEDURE: HISTORICAL HIP REPLACEMENT CATARACT EXTRACTION PROCEDURE: HISTORICAL CATARACT REMOVAL OTHER SURGICAL HISTORY PROCEDURE: HISTORY OTHER; COMMENT: Hernia repair x 2 OTHER SURGICAL HISTORY PROCEDURE: [place] ELVTN DEPRS SKL FX COMPOUND/COMMIND XDRL; COMMENT: & facial fractures - [facility] Medical History Medical History Date Comments Depression 07/15/2017 DX:Depression 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/15/2017 DX: Hip joint replacement status History of prostate cancer 09/27/2017 DX:Hi story of prostate cancer Chronic obstructive pulmonar y disease (CMS/HCC V24, CMS/HCC V28) 01/12/2017 DX:Chronic obstructive pulm onary disease (HCC) Gastroesophageal reflux disease 01/03/2017 DX:Gastroesophageal [...] Vaccines (1 of 2) 10/31/1989 RSV Immunization Adult Patie nts (1 - 1-dose 75+ series) 10/31/2014 Cholesterol Screening (Lipid Panel) 07/24/2022 Depression Screening 07/24/2022 Falls Risk Assessment 07/24/2022 Social Influencers of Health Screening 07/24/2022 Hypertension/CHF/CAD Annual BMP Blood Test 08/05/2022 COVID-19 Vaccine ( - 2023-2 5 season) 2024 Influenza Vaccine (#1) 2025 HIB Vaccines Aged Out No longer eligi [...] age to complete this topic Meningococcal B Vaccine Aged Out No l onger eligible based on patient's age to complete this topic RSV Immunization Patients Un fredrick 20 months Aged Out No longer eligible b ased on patient's age to complete this topic Varicella Vaccines Aged Out No longer eligible based on patient's age to complete this topic Care Teams Traveling Crane Operator Relationship Specialty Start Date End Date Dea Momin MD [address] [place] [phone] PCP - General 02/24/21
== END 2025-03-07 14:35 | disposition home or self-care (01) ==
LOC: HO.HPS 14:23
PROVIDERS: PCP Nurse Practitioner Family; Visit Provider Internal Medicine Pulmonary Disease
DX: J44.9 Chronic obstructive pulmonary disease, unspecified (principal)
CPT/HCPCS: 99213

== ENCOUNTER → 2025-03-07 14:22 | Outpatient (BNVA) | payer OTHER, SELFPAY ==
[2023-04-05 09:10] VITALS: BP 114/72; BP 124/60; BMI 25.3
== END ==
PROVIDERS: PCP Nurse Practitioner Family; Visit Provider Internal Medicine Pulmonary Disease
DX: J44.9 Chronic obstructive pulmonary disease, unspecified (principal); F17.210 Nicotine dependence, cigarettes, uncomplicated; R91.8 Other nonspecific abnormal finding of lung field
CPT/HCPCS: 99212

== ENCOUNTER 2025-04-09 10:32 | Outpatient (AMB) | payer OTHER, SELFPAY ==
[2023-04-05 09:10] VITALS: BP 114/72; BP 124/60; BMI 25.3
--- OUTSIDE RECORDS SUMMARY | 2024-09-18 07:00 | XMS_ITS ---
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 This section includes the names of all active insurance providers for the patient. Insurance Provider Type of Coverage Plan Name Start of Policy Coverage End of Policy Coverage Group Number Member ID Insurance Provider's Telephone Number Policy Tuttle's Name Patient's Relationship to Policy Tuttle [employer] MEDICARE SUPPLEMEN PHI MEDIC ARE SUPPL EMENT Jul 21, 2007 NONE [id number] Edgar ARAMBULA PATIENT BCBS MD MEDICARE SUPPLEMEN PHI MEDEX BRONZ E December 19, 2013 [id number] GUSTAVO ARAMBULA SR PATIENT [place] MEDICARE SUPPLEMEN PHI MEDEX BRONZ E December 19, 2013 [id number] Edgar ARAMBULA PATIENT [facility] MEDICAID MEDICAID MEDIC AID Aug 21, 2022 MEDICAI D [id number] [place] PATIENT MEDICARE (WNR) MEDICARE (M) PART A Oct 19, 2004 PART A [id number] [phone] Edgar ARAMBULAN PATIENT MEDICARE (WNR) MEDICARE (M) PART B Oct 19, 2004 PART B [id number] Edgar ARAMBULA [place] PATIENT MEDICARE ([place]) MEDICARE (M) PART A Oct 19, 2004 PART A [id number] [phone] Edgar ARAMBULA [place] PATIENT MEDICARE ([place]NR) MEDICARE (M) PART B Oct 19, 2004 PART B [id number] Edgar ARAMBULA [place] PATIENT MEDICARE ([place]) MEDICARE (M) PART B Oct 19, 2004 PART B [id number] Edgar ARAMBULA [place] PATIENT MEDICARE ([place]NR) MEDICARE () PART A Oct 19, 2004 PART A [id number] Edgar ARAMBULAN PATIENT MEDICARE (WNR) MEDICARE () PART A Oct 19, 2004 PART A [id number] Edgar ARAMBULAN PATIENT MEDICARE (WNR) MEDICARE (M) PART B Oct 19, 2004 PART B [id number] Edgar ARAMBULAN PATIENT MEDICARE (WNR) MEDICARE (M) PART A Oct 19, 2004 PART A [id number] Edgar ARAMBULAN PATIENT MEDICARE (WNR) MEDICARE () PART B Oct 19, 2004 PART B [id number] Edgar ARAMBULAN PATIENT Selected Encounter This section includes the information on record at [place] for the Encounter. Date/Time Encounter Type Encounter Description Reason Provider Source Sep 18, 2024 11:00 AM MED NUTRITION INDIV SUBSEQ NUTRITION/DIETETIC S-INDIVIDUAL ICD-10-CM R63.4 Abnormal weight loss CHIVO ARAGON [facility] Encounter Template Text not used by [place] Assessments - Encounter Diagnoses This section includes the primary and secondary diagnoses documented for the Encounter. Date/Time Primary/Secondary Diagnosis Diagnosis Name Provider Source Sep 20, 2024 01:11 PM PRIMARY Abnormal weight loss CHIVO ARAGON [place] Sep 20, 2024 01:11 PM SECONDARY Body mass index [BMI] 27.0-27.9, adult CHIVO ARAGON [place] Sep 20, 2024 01:11 PM SECONDARY Dietary counseling and surveillance CHIVO ARAGON [place] Sep 20, 2024 01:11 PM SECONDARY Type 2 diabetes mellitus without complications CHIVO ARAGON Ángela [place] Plan of Treatment: Future Appointments (+ 6 months) and Future Tests (+/- 45 days) The Plan of Treatment section includes future care activities for the [facility] This section includes future appointments and future orders which are active, pending or scheduled. Future Appointments This section includes appointments that were scheduled to occur 6 months from the date of the Encounter, up to a maximum of 20 appointments. The data comes from all [place] treatment facilities. Appointment Date/Time Appointment Type Appointme nt Facility Name Sep 26, 2024 12:30 PM AMBULATORY - MEDICINE [facility] Oct 08, 2024 09:30 AM AMB[facility]ATORY [facility]IATRY [facility] [place] [facility] Oct 14, 2024 12:30 PM [facility]ORY [facility]ICINE [facility] [place] [facility] Oct 15, 2024 07:45 AM AMBULATORY - NONE [facility] [place] [facility] Oct 21, 2024 09:30 AM [facility]ATORY - MEDICINE [facility] Oct 30, 2024 08:00 AM AM[facility]ULATORY [facility]ICINE [facility] [place] [facility] Nov 11, 2024 01:30 PM AM[facility]ATORY [facility]INE [facility] [place] [facility] Nov 12, 2024 10:30 AM AMBULATORY - PS[facility]CHIATRY [facility] [place] [facility] Nov 29, 2024 10:00 AM AMBULATORY - MEDICINE [facility] [place] [facility] January 09, 2025 09:00 AM AMBULATORY - PS[facility]IATRY [facility] [place] [facility] January 10, 2025 10:00 AM AMBULATORY [facility] MEDICINE [facility] [place] [facility] January 10, 2025 10:30 AM AMBULATORY - MEDICINE [facility] [place] [facility] Jan 24, 2025 11:00 AM AM[facility]ATORY - MEDICINE [facility] Jan 27, 2025 08:00 AM AMBULATORY - MEDICINE [facility] Mar 03, 2025 08:00 AM [facility] Mar 07, 2025 02:30 PM AMBULATORY - MEDICINE [facility] [place] [facility] Mar 10, 2025 08:30 AM AMBULATORY - MEDICINE [facility] Lab Results: +/- 30 days of [...] Type Result - Unit Interpretation Reference Range Specimen Type Comment Aug 29, 2024 11:03 AM [facility] C DIFF TOX B GENE PCR FECES Specimen Type: FECES Comment: The [employer] C. difficile/Epi assay is a real time PCR assay on the [employer] GeneXpert System for the rapid detection of C. difficile toxin B gene sequences and for the presumptive identification of the 027/NAP1/BI strains from stool specimens collected from patients suspected of having C. difficile infection (CDI). Results should be used in conjunction with the patient's clinical symptoms, medical history and other clinical and laboratory findings. Negative results do not preclude infection with C. difficile. Testing is limited to one appropriate stool specimen per patient per week unless otherwise determined by a medical consult. Specimens that test positive by PCR will be reflexed to the C. diff Quik Chek Complete test to confirm the presence and/or absence of the C. difficile GDH Antigen and C. difficile toxins A/B. C. DIFFICILE RESULT INTERPRETATION GUIDE: PCR Negative = Toxigenic CDI not present. No further testing. PCR Positive and Toxin Positive = Toxigenic CDI present. PCR Positive and Toxin Negative = Indeterminant result which could represent either (1) C. difficile colonization OR (2) True infection in setting of a false negative toxin test. Please contact ID team for any questions on C. difficile testing. H* INDICATES A PR ALERT HAS BEEN SENT Ordering Provider: GALDINO KIRBY Report Released Date/Time: Aug 28, 2024 10:23 AM Reporting Lab: [address] [place] [address] Performing Lab: [facility] [address] [facility] [address] C DIFF TOX B GENE PCR Negative Negative Aug 29, 2024 10:57 AM [facility] GASTROINTESTINAL PANEL (WRLED) FECES Specimen Type: FECES Comment: The Gastrointestinal (GI) Panel is an FDA (IVD) approved qualitative multiplex PCR assay on the [employer] System for testing on raw stool specimens transferred into [employer]. It is indicated as an aid in the diagnosis of specific agents of gastrointestinal illness and results are meant to be used in conjunction with other clinical, laboratory, and epidemiological data. Positive results do not rule out co infection with organisms not included in the [facility] GI Panel. The agent detected may not be the definite cause of the disease. Concomitant culture is necessary for organism recovery, confirmation of PCR and further typing of bacterial agents however the agent may not grow upon subculture. Certain analytes on this assay cannot differentiate between specific species of the genus or family and cross reaction can occur within certain genera. False positive results may occur and/or the sensitivity of the PCR panel may detect low levels of pathogen present. The detection of bacteria, parasite and virus nucleic acid is dependent upon proper specimen collection, handling, transportation, storage, and preparation. [employer] Ordering Provider: GALDINO KIRBY Report Released Date/Time: Aug 28, 2024 10:23 AM Reporting Lab: [address] [address] Performing Lab: [facility] [address] [facility] [address] CAMPYLOBACTER SP. Not Detected Not Detec lalito PLESIOMONAS SHIGELLOIDES Not Detected No t Detected SALMONELLA SP. Not Detected Not Detected VIBRIO SP. Not Detected Not Detected VIBRIO CHOLERAE Not Detected Not Detecte d YERSINIA ENTEROCOLITICA PCR Not Detected Not Detected ENTEROAGGREGATIVE E. COLI (EAEC) Not Detected Not Detected ENTEROPATHOGENIC E. COLI (EPEC) Not Detected Not Detected ENTEROTOXIGENIC E. COLI (ETEC) LT/ST Not Detecte d Not Detected SHIGA-LIKE TOXIN-PRODUCING E. COLI Not Detected Not Detected SHIGELLA/ENTEROINVASIVE E. COLI (EIEC) Not Detec lalito Not Detected ADENOVIRUS F 40/41 Not Detected Not Dete cted ASTROVIRUS Not Detected Not Detected NOROVIRUS GI/GII PCR Not Detected Not De tected ROTAVIRUS A PCR Not Detected Not Detecte d SAPOVIRUS (GENOGROUPS I,II,IV&V) Not Detected Not Detected CRYPTOSPORIDIUM PCR Not Detected Not Det ected CYCLOSPORA CAYETANENSIS Not Detected Not Detected ENTAMOEBA HISTOLYTICA PCR Not Detected N ot Detected GIARDIA LAMBLIA PCR Not Detected Not Det ected Aug 28, 2024 10:49 AM [facility] BASIC METABOLIC PANEL (non-fasting) SERUM Spe cimen Type: SERUM No comment entered. Ordering Provider: GALDINO KIRBY Report Released Date/Time: Aug 28, 2024 10:23 AM Reporting Lab: [address] [address] Performing Lab: [address] [address] UREA NITROGEN 16 mg/dL 7-25 GLUCOSE 212 mg/dL H 65-100 SODIUM 137 mmol/L 135-145 POTASSIUM 4.4 mmol/L 3.5-5.0 CHLORIDE 102 mmol/L 100-110 CO2 25 meq/L 20-30 CREATININE, Serum 0.76 mg/dL 0.50-1.40 eGFR(CKD-EPI 2020) 88 mL/min >60 Aug 28, 2024 10:49 AM [facility] URINALYSIS CLEAN CATCH URINE Specimen Type: U RINE Comment: If Glucose = >500 and Ketones are positive, please alert the Physician. Critical result acknowledged. DR KIRBY 08/28/24@1118 BY Ordering Provider: GALDINO KIRBY Report Released Date/Time: Aug 28, 2024 10:23 AM Reporting Lab: [address] [address] Performing Lab: [address] [address] UA COLOR Yellow Yellow UA APPEARANCE Clear Clear UA GLUCOSE 1,000 mg/dL Negative UA KETONES TRACE mg/dL Negative UA BLOOD NEGATIVE mg/dL Negative UA PROTEIN 30 mg/dL Negative UA NITRITE NEGATIVE mg/dL Negative UA BILIRUBIN NEGATIVE mg/dL Negative UA SPECIFIC GRAVITY 1.038 H 1.016-1.022 UA pH 5.5 5.0-9.0 UA UROBILINOGEN 3 mg/dL <2.0 UA LEUKOCYTE NEGATIVE Negative Aug 28, 2024 10:49 AM [facility] CBC AND DIFF (AUTO) BLOOD Specimen Type: BLOO D No comment entered. Ordering Provider: GALDINO KIRBY Report Released Date/Time: Aug 28, 2024 10:23 AM Reporting Lab: [facility] [address] [facility] [address] Performing Lab: [facility] [address] [facility] [address] WBC 6.48 10*3/uL 4.50-11.00 RBC 4.37 10*6/uL 4.23-5.66 HGB 12.3 g/dL L 12.8-17 HCT 35.5 L 39.2-50.4 MCV 81.2 fL L 82-99 MCHC 34.6 g/dL 30.8-35.1 PLT 218 10*3/uL 140-360 RDW-CV 12.6 12.0-16.0 MONO, ABS 0.56 10*3/uL 0.30-1.10 MCH 28.1 pg 26.2-32.6 NEUT % 64.8 43.7-75.8 LYMPH % 22.1 14.0-42.3 MONO % 8.6 5.1-13.7 EOS % 2.8 0.4-6.8 BASO % 1.1 0.1-2.0 NEUT, ABS 4.20 10*3/uL 2.20-7.60 LYMPH, ABS 1.43 10*3/uL 1.00-3.20 EOS, ABS 0.18 10*3/uL 0.03-0.44 BASO, ABS 0.07 10*3/uL 0.01-0.13 IMMATURE GRAN % 0.6 0.0-0.7 IMMATURE GRAN, ABS 0.04 10*3/uL 0.00-0.0 6 NRBC % 0.0 0.0-0.0 NRBC, ABS 0.00 10*3/uL 0.00-0.00 Social History: Smoking Status (Most current) and [...] 2023 09:00 AM VA-TOBACCO USER EVERY DAY [place] Tobacco Use History This section includes a history of the smoking, or tobacco-related health factors, that were collected on or before the date of the Encounter. The data comes from the [place] facility where the Encounter took place. 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 Date/Time Encounter Note(s) Provider Source Sep 18, 2024 11:00 AM NUTRITION DIETETIC S NOTE: LOCAL TITLE: NUTRITION PROGRESS NOTE STANDARD TITLE: NUTRITION DIETETICS NOTE DATE OF NOTE: SEP 18, 2024@11:00 ENTRY DATE: SEP 18, 2024@14:34:33 AUTHOR: JESSE ARAGON COSIGNER: URGENCY: STATUS: COMPLETED FOLLOW-UP NUTRITION ASSESSMENT Reason for Nutrition referral: Primary Diagnosis: Abnormal Weight Loss (R63.4) Secondary Diagnosis: Dietary Surveillance and Counseling (Z71.3) Additional Secondary Diagnosis: Type 2 DM without complication (E11.9) Date of Nutrition Visit: Aug Visit #: 1 Time Spent with Patient: 40 minutes Patient identified using the following two forms of ID: Date of , Patient Full Name NUTRITION ASSESSMENT: Client History Food/Drug Interactions: Amlodipine/Grapefruit, Atorvastatin/Grapefruit, Food drug interaction education provided Anthropometric Measurements: ==== Ht:60.3 in [153.2 cm] (05/14/2024 11:39) Wt:140.4 lb [63.68 kg] (09/18/2024 11:04) Weight History: Measurement DT WEIGHT LB(KG)[BMI] 09/18/2024 11:04 140.4(63.68)[27] 08/28/2024 10:06 140(63.50)[27] 06/19/2024 10:58 135.4(61.42)[26] 05/14/2024 11:39 130(58.97)[25] 05/01/2024 11:03 128.1(58.11)[23] BMI: 27.2 IBW: 109 lb Biochemical Data/Medical Tests: ======= Labs: LIPID PANEL TREND Collection DT Spec CHOL HDL CHO/HDL LDL-d LDL-c TRIG 08/01/2024 08:18 SERUM 155 54 2.9 85 78 04/15/2024 08:39 SERUM 137 61 H 2.2 63 63 HEMOGLOBIN A1C; BLOOD Lauryn. Date: 08/01/24 08:18 04/25/24 07:51 Test Name Result Units Range HEMOGLOBIN A1C 8.1 H 6.8 H % 4.0 - 5.6 Other Labs: GLUCOSE (BLOOD SUGAR) Collection DT Specimen Test Name Result Units Ref Range 08/28/2024 10:49 SERUM GLUCOSE 212 H mg/dL 65 - 100 BP: 162/76 (08/28/2024 10:06) Nutrition Focused Physical Findings: Appetite: Good Other issues/concerns: None Nutrition-Focused Physical Exam ======= A selection MUST be made in The Nutrition-Focused Physical Exam Summary section No significant physical signs of nutrient excesses or deficits Nutrition-Focused Physical Exam Summary: Based on the ASPEN/AND Malnutrition Diagnosis Guide, it was determined that the DOES NOT have malnutrition. Nutrition History: Food/Nutrition Related History: Met with and who is happy with his recent weight gain. He note he has been started on oral medications for diabetes management. He has stopped drinking ensure supplement. He notes he is eating 1-2 meals per day 24 hour recall: L: ham/cheese s/w, milk D: pasta w/sausage, milk snacks: none In the past 3 months, did you ever run out of food and you were not able to access more food or have the money to buy more food? No Physical Activity: limited NUTRITION DIAGNOSIS = Nutrition Problem: ACTIVE Involuntary weight loss related to poor oral intake as evidenced by 18% weight loss. INTERVENTION Update on Interventions Discussed at Previous Visit: [place] has stopped supplement. NUTRITION SUPPLEMENT THERAPY Commercial beverage medical food supplement therapy Food and/or Nutrient Delivery: Recommend Oral Nutritional Supplement as follows: Product: Glucerna Ludinke Dosage: 1 bottle per day Provides: 220 kcal / 10 gm of protein NUTRITION COUNSELING Nutrition counseling based on motivational interviewing strategy , Nutrition counseling based on goal setting strategy , Nutrition counseling based on self monitoring strategy NUTRITION EDUCATION Content related to nutrition education, Education on nutrition's influence on health, Physical activity guidance Nutrition Education provided on the following topics: Healthy Meal Planning, Oral medical nutritional supplement Printed Nutrition educational materials provided during this encounter: None Education Narrative: Reviewed supplement use and would like to trial glucerna shake. Discussed healthy meal planning and weight loss. Barriers to Education: None Comprehension: Good Motivation: Good COORDINATION OF NUTRITION CARE Follow-up with: PCP MONITORING Patient SMART goals from previous visit: 1. Start drinking glucerna shake. 2. Consume small frequent meals and snacks. Some progress towards goal New Patient SMART Goals: 1. Start drinking glucerna shake. 2. Consume small frequent meals and snacks. FOLLOW-UP PLAN 1. Follow-up visit: Oct 2. Monitor progress towards achievement of patient's [...] provided. /reginaldo/ JESSE ARAGON STAFF DIETITIAN Signed: 09/20/2024 13:11 JESSE ARAGON [facility]
--- NOTE | 2025-04-09 10:35 | A.OFFVIS_ITS ---
Vital Signs 04/09/25 10:37 Height 5 ft 3 in Weight 134 lb 7.712 oz BMI 23.8 BP 119/65 Blood Pressure Location Lt brachial Position Sitting Pulse 81 Intake Visit Reasons: 1 year follow up Intake Note: Amaury presents in the office as a 1 year follow up. CC: States he has issues with blood sugars - starts insulin next week. He states he gets a lot of nausea feelings in the stomach. 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 [facility] and no dysplasia noted at that time. Continues with pantoprazole 40 once daily in AM. No reflux, nausea or vomiting. Continues to smoke almost half a pack a day. 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 01/09/24: EGD * Irregular Z-line (biopsy) * Hiatal hernia * Gastric polyps (biopsy) * Duodenal polyps (biopsy) Path: (C): TissueCypher results: Risk Class: Low Risk Score: 1.5 (range 0 ? 10) 5-year probability of progression: 0.60% See entire report in the EMR - report/pathology section as a scanned report (camera icon). Electronically Signed By: Jenna Paiz 02/14/24 190 Diagnosis A. Duodenal polyp, biopsy: Duodenal mucosa with focal polypoid gastric heterotopia; negative for dysplasia. B. Gastric polyps: Fundic gland polyps with focal minimal chronic inactive inflammation; negative for H pylori, intestinal metaplasia and dysplasia. C. Gastroesophageal junction, biopsy: Squamocolumnar mucosa with mild chronic inflammation and focal intestinal metaplasia; negative for dysplasia (see comment). 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 Clinical and endoscopic correlation is advised?? 04/10/24: Seen for follow up. Here with his son. REports significant nausea gualberto in the mornings. Sometimes also has lightheadedness. This is in the absence of any abd pain. EGD and biopsy findings reviewed including tissue cypher resutls. 04/09/25: Here for 1 year follow up. To recap, was found to have severe hyponatremia which was likely causing N/V. Pt reports was hospitalized for it. Now doing well. Currently reports some abd discomfort which is present all the time. This gets better as the day goes on. Has good appetite. [facility] Medical History CAD (coronary artery disease) HTN (hypertension) Aortic stenosis Macular degeneration of right eye Type 2 diabetes mellitus without complications Essential hypertension Prostate cancer Hyperlipemia PVD (peripheral vascular disease) COPD (chronic obstructive pulmonary disease) Surgical History Hx of prostatectomy S/P TAVR (transcatheter aortic valve replacement) Hx of colonoscopy History of esophagogastroduodenoscopy (EGD) Aortic valve replaced (~01/19/23) S/p bilateral carotid endarterectomy History of hip replacement History of cataract surgery History of inguinal hernia repair History of hernia surgery History of facial surgery Family History Mother No problems noted. Father No problems noted. Social History Household Members: Significant Other Household Members Other:: girlfriend Housing: Apartment Do you presently have visiting nurse or other home services: No Alcohol intake: former Patient Tobacco Use Status: Current everyday Tobacco user Tobacco use type: Cigarette Cigarette Packs Per Day: 0.5 Cigarettes Per Day: 8 Years Smoked: 65, started at age 16, 1PPD e-Cigarette/Vaping Use: Never Used Second Hand Smoke Exposure: No Advance Directives Date on File: 11/20/21 service: Yes ([employer]ul[employer]) Current occupational status: retired Review of Systems Const All systems reviewed & are unremarkable except as noted in HPI and below Physical Exam Vital Signs: Last Vital Signs Pulse 81 04/09/25 10:37 BP 119/65 04/09/25 10:37 BMI result Body Mass Index 23.8 Gen appear: Elderly gent, NAD HEENT: nonicteric Abd: soft, nontender, Ext: no peripheral edema Neuro: A/Ox3, uses a cane to ambulate Psych: interacting appropriately Assessment & Plan Assessment & Plan (1) Jenkins esophagus: Code(s): K22.70 - 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 Reviewed findings on EGD and given low risk of progression of BE based on tissue cypher, with mutual decision making we are electing to forego further surveillance. He should cont the ppi while hes on anticoagulation 2. Sx of abd discomfort with dyspepsia likely 2/2 gerd vs symptomatic cholelithiasis plan: - check lfts - will also get bmp to r/o recurrent hypoNa - may need surg referral depending on results Follow up in 1 year - will call pt for actionable findings on labs Orders: Orders Comprehensive Met. Panel Today E87.1 - Hypo-osmolality and hyponatremia Coding Level of Care Code Est Pt Level 4 (42020) Diagnoses Jenkins esophagus K22.70 GERD (gastroesophageal reflux disease) K21.9 Current smoker F17.200 Abdominal pain R10.9 Gallbladder sludge K82.8
[2025-04-09 10:37] VITALS: BP 119/65; PULSE 81; BMI 23.8
--- OUTSIDE RECORDS SUMMARY | 2025-04-09 11:50 | XMS_ITS | Clinical Summary ---
Author Organization [facility] Address [address] [facility] [address] [place] [phone] Phone Care Team Providers Care Fire Eater Name Role Phone Nell Carrillo NP Primary [...] topic [place] [address] MEDICARE PART A & B [id number] [facility] [place] [address] MEDICARE PART A & B [facility] [place] [id number] MEDICARE PART A & B [facility] MEDICARE PART A & B [facility] MEDICARE PART A & B [facility] [address] MEDICARE PART A & B [facility] Care Teams Fire Eater Relationship Specialty Start Date End [place] [address] [email or web address] PCP - General Nurse Practitioner 10/20/23 Additional Source Comments The information contained in this document represents components of the legal health record. It is not the complete legal health record.[facility]
--- OUTSIDE RECORDS SUMMARY | 2025-04-09 11:50 | XMS_ITS | Clinical Summary ---
Author Organization [facility] Address [address] [place] [address] Care Team Providers Care Orthopedic Shoe Fitter Name Role Phone Dea Momin MD Primary Care Provider [phone] Surgical History Surgery Date Site/Laterality Comments HIP ARTHROPLASTY Bilateral PROCEDURE: HISTORICAL HIP REPLACEMENT CATARACT EXTRACTION PROCEDURE: HISTORICAL CATARACT REMOVAL OTHER SURGICAL HISTORY PROCEDURE: HISTORY OTHER; COMMENT: Hernia repair x 2 OTHER SURGICAL HISTORY PROCEDURE: [place] ELVTN DEPRS SKL FX COMPOUND/COMMIND XDRL; COMMENT: & facial fractures - [facility] Medical History Medical History Date Comments Depression [...] series) 10/31/2014 Cholesterol Screening (Lipid Panel) 07/24/2022 Falls Risk Assessment 07/24/2022 Social Influencers of Health Screening 07/24/2022 Hypertension/CHF/CAD Annual BMP Blood Test 08/05/2022 COVID-19 Vaccine ( - 2023-2 5 season) 2024 Depression Screening 08/21/2024 Influenza Vaccine (#1) 2025 HIB Vaccines Aged [...] age to complete this topic Care Teams Orthopedic Shoe Fitter Relationship Specialty Start Date End Date Dea Momin MD [address] [place] [phone] PCP - General 02/24/21
== END 2025-04-09 10:56 | disposition home or self-care (01) ==
LOC: HO.HGI 10:33
PROVIDERS: PCP Nurse Practitioner Family; Visit Provider Internal Medicine
DX: K22.70 Barrett's esophagus without dysplasia (principal); K21.9 Gastro-esophageal reflux disease without esophagitis; F17.200 Nicotine dependence, unspecified, uncomplicated; R10.9 Unspecified abdominal pain; K82.8 Other specified diseases of gallbladder
CPT/HCPCS: 99214

== ENCOUNTER 2025-04-09 10:32 | Outpatient (REF) | payer OTHER, SELFPAY ==
[2023-04-05 09:10] VITALS: BP 114/72; BP 124/60; BMI 25.3
[2025-04-09 12:25] LABS: Alanine Aminotransferase 17 U/L (0-40); Albumin Level 4.3 g/dL (3.5-5.0); Alkaline Phosphatase 73 U/L (39-117); Anion Gap 15 (12-20); Aspartate Amino Transferase 19 U/L (5-37); Blood Urea Nitrogen 22 mg/dL (9-16); Calcium 9.8 mg/dL (8.4-10.2); Carbon Dioxide 24 mmol/L (22-29); Chloride 106 mmol/L (96-108); Estimated Glomerular Filt Rate > 60; Potassium 4.1 mmol/L (3.3-5.1); Sodium 141 mmol/L (135-145); Total Protein 7.3 g/dL (6.5-8.0)
== END 2025-04-09 10:33 | disposition home or self-care (01) ==
LOC: HO.LAB 10:32
PROVIDERS: PCP Nurse Practitioner Family; Visit Provider Internal Medicine
DX: K21.9 Gastro-esophageal reflux disease without esophagitis (principal); K22.70 Barrett's esophagus without dysplasia; K82.8 Other specified diseases of gallbladder; E87.1 Hypo-osmolality and hyponatremia; R10.9 Unspecified abdominal pain; F17.200 Nicotine dependence, unspecified, uncomplicated; Z79.01 Long term (current) use of anticoagulants
CPT/HCPCS: 36415; 80053; 99212